=== PATIENT | female | born 1945 | race Caucasian/White ===

== ENCOUNTER 2022-10-26 09:03 | Outpatient (OUT) | payer MEDICARE, SELFPAY ==
--- NOTE | 2022-10-26 09:07 | CT_ITS ---
The [address] [address] Patient Name: DARLENE TANG MRN: [id number] date: 1945 Sex: F Assigned Patient Location: CT Current Patient Location: LAB Accession/Order Number: [id number] Exam Date: 10/26/2022 09:15 Report Date: 10/26/2022 10:01 At the request of: PRISCILLA GURROLA Procedure: CT head/brain wo con EXAMINATION: CT head/brain wo con HISTORY: Expressive Aphasia R47.01 COMPARISON: No relevant comparison available. TECHNIQUE: Axial CT images were obtained without IV contrast. Dose reduction techniques were achieved by using automated exposure control and/or adjustment of mA and/or kV according to patient size and/or use of iterative reconstruction technique. FINDINGS: BRAIN: No edema, hemorrhage, mass, acute infarction, or inappropriate atrophy. Incidental calcium deposition within the basal ganglia bilaterally. CSF SPACES: No hydrocephalus, subarachnoid hemorrhage, or mass. Appropriate for age. SKULL: No fracture, mass, or other significant visible lesion. SINUSES: No significant mucosal thickening or fluid on the limited views. ORBITS: No appreciable abnormality on the limited views. OTHER: Negative CT/CT head/brain wo con IMPRESSION: 1. No hemorrhage, mass, or suspicious findings to account for patient's symptoms. 2. Mild age consistent chronic changes. Electronically authenticated by: CIARRA [place] Date: 10/26/2022 10:01
== END 2022-10-26 09:04 | disposition home or self-care (01) ==
LOC: CT 09:03
PROVIDERS: PCP Family Medicine; Visit Provider Psychiatry & Neurology Neurology
DX: R47.01 Aphasia (principal)
CPT/HCPCS: 70450

== ENCOUNTER 2022-10-26 09:31 | Outpatient (OUT) | payer MEDICARE, SELFPAY ==
[2022-10-26 10:58] LABS: Thyroid Stimulating Hormone 1.448 uIU/mL (0.358-3.740)
== END 2022-10-26 09:32 | disposition home or self-care (01) ==
LOC: LAB 09:35
PROVIDERS: PCP Family Medicine; Visit Provider Psychiatry & Neurology Neurology
DX: Z79.899 Other long term (current) drug therapy (principal); R47.01 Aphasia
CPT/HCPCS: 36415; 82607; 84443

== ENCOUNTER 2022-12-29 09:45 | Outpatient (OUT) | payer MEDICARE, SELFPAY ==
--- NOTE | 2022-12-29 10:32 | CA_ITS ---
Patient: DARLENE TANG Exam Date: 12/29/2022 : 1945 Gender:F Ordering : DR Sonia Pulliam M.D. Admission #: [id number] Family : Order #: [id number] CLICK HERE TO VIEW EXAM ECHOCARDIOGRAM REPORT PROCEDURE: CA ECHO DOPPLER COMPLETE INDICATIONS: Dyspnea on exertion, h/o congestive heart failure, bilateral breast cancer- mastectomy, breast implants COMPARISON: None. DESCRIPTION: COMPLETE ECHOCARDIOGRAM Real-time transthoracic echocardiography with 2D, M-mode, spectral and color flow Doppler performed. QUALITY: Technically difficult due to breast implants. LEFT VENTRICLE: Normal chamber size. Thickened septal wall. LV EF: Global left ventricular systolic function is normal; visually estimated ejection fraction is 55 to 60%. No significant wall motion abnormalities. DIASTOLIC: Normal diastolic function. ATRIAL SEPTUM: Visually appears intact. LEFT ATRIUM: Normal chamber size. RIGHT ATRIUM: Normal chamber size. RIGHT VENTRICLE: Normal chamber size. Normal systolic function. TRICUSPID VALVE: Normal mobility and thickness. No stenosis with trivial regurgitation. Doppler studies reveal mildly (35-45) elevated right sided pressures. RVSP 37 mmHg MITRAL VALVE: Normal mobility and thickness. No evidence of mitral valve stenosis. There is no mitral annular calcification. No mitral regurgitation. AORTIC VALVE: Normal trileaflet appearance. No visible sclerosis. Normal leaflet mobility. No evidence of aortic valve stenosis. No aortic regurgitation. AORTIC ROOT: Normal diameter and appearance. PULMONIC VALVE: Normal thickness and mobility. No stenosis. Mild regurgitation. PERICARDIUM: No evidence of pericardial effusion. IVC: Collapses with inspirations. CONCLUSION: 1. Global left ventricular systolic function is normal; visually estimated ejection fraction is 55 to 60% 2. Right ventricle is normal in size and systolic function 3. Normal diastolic function 4. Mildly elevated right ventricular systolic pressure 5. Mild pulmonic regurgitation Adult Echocardiography Procedure Report Left Ventricle LVEDD (3.7 - 5.6 cm): 4.13 cm LVESD (2.2 - 4.0 cm): 2.29 cm LVIVS thickness (0.6 - 1.2 cm): 1.19 cm LVPW thickness (0.5 - 1.0 cm): 0.90 cm e': 0.10 m/s E - e': 5.72 LVOT Max Gradient: 3.14 mm[Hg] LVOT Area (cm2): 0.89 m/s Peak Velocity (LVOT): 0.89 m/s LVOT Diameter 2.08 cm Left Atrium Left Atrium Systolic Dimension: 3.01 cm Mitral Valve MV E to A Ratio: 0.80, 0.76 Mitral Valve A-Wave Peak Velocity: 0.72 m/s Mitral Valve E-Wave Peak Velocity: 0.57 m/s Right Ventricle Aorta AO Root Diam: 3.02 cm Ascending Ao Diam: 3.11 cm Aortic Valve AoV Area (Peak Brandon): 3.29 cm2, 3.29 cm2 Peak Velocity(Antegrade Flow): 0.91 m/s Peak Gradient(Antegrade Flow): 3.32 mm[Hg] Tricuspid Valve Peak Velocity (Regurgitant Flow): 2.18 m/s, 2.93 m/s Pulmonic Valve Peak Velocity: 1.04 m/s Peak Gradient: 4.46 mm[Hg], 4.21 mm[Hg] Right Atrium Right Atrium Systolic Pressure: 22.44 ml, 22.44 ml Dictated by: Reagan Mckeon M.D. on 12/29/2022 at 15:12 Approved by: Reagan Mckeon M.D. on 12/29/2022 at 15:15
== END 2022-12-29 09:46 | disposition home or self-care (01) ==
LOC: CARD 09:46
PROVIDERS: PCP Family Medicine; Visit Provider Family Medicine
DX: R06.09 Other forms of dyspnea (principal)
CPT/HCPCS: 93306

== ENCOUNTER 2023-05-25 21:20 | Inpatient (IN) | payer MEDICARE, SELFPAY ==
[2023-05-25] VITALS (21 sets, daily range): BP systolic 73–127; BP diastolic 60–83; PULSE 95–109; RESP 14–32; TEMP 36.7–38.4; O2SAT 81–97; BMI 30.9
--- NOTE | 2023-05-25 21:27 | ECG_ITS ---
The [facility] Test Date: 2023-05-25 Pat Name: DARLENE TANG Department: Room: [facility] Gender: Female Keeper Head: : 1945 Requested By: OUMAR GUNTER Order Number: [id number] Reading MD: PANKAJ JEROME Measurements Intervals [place] Rate: 105 P: 60 GA: 156 QRS: -63 QRSD: 92 T: 58 QT: 316 QTc: 377 Interpretive Statements 1120 Sinus tachycardia 2630 Left anterior fascicular block Low voltage across the precordium 9150 abnormal ECG Electronically Signed On 05-26-2023 6:44:12 EST by PANKAJ JEROME
--- NOTE | 2023-05-25 21:45 | XR_ITS ---
The [address] [address] Patient Name: DARLENE TANG MRN: [id number] date: 1945 Sex: F Assigned Patient Location: ER Current Patient Location: [place] Accession/Order Number: [id number] Exam Date: 05/25/2023 22:03 Report Date: 05/26/2023 20:55 At the request of: MANAS NGUYỄN Procedure: XR chest 1V CHEST X-RAY 05/25/2023 11:00 PM EST CLINICAL INDICATION: Fever with chest congestion. COMPARISON: 07/29/2017. TECHNIQUE: Portable semiupright AP view of the chest. FINDINGS: PH probe. The cardiomediastinal silhouette and pulmonary vasculature are within normal limits. Patchy bilateral lower lung zone opacities. No pneumothorax or pleural effusion. No displaced rib fractures. Osseous structures demonstrate degenerative changes. Soft tissues are grossly normal. XR/XR chest 1V IMPRESSION: Patchy bilateral lung zone opacities, this may represent atelectasis or pneumonia. Electronically authenticated by: CHICHO LOERA Date: 05/26/2023 20:55
--- NOTE | 2023-05-25 21:47 | ED_ITS ---
HPI - Altered Mental Status General Chief Complaint: Altered Mental Status Stated Complaint: Altered Mental Status Time Seen by Provider: 05/25/23 21:25 Source: patient and other Source comment: EMS Mode of arrival: ambulance Limitations: altered mental status History of Present Illness HPI narrative: patient presents from home confused. called [facility] because of her confusion. Fever and chills at home. No vomiting. [facility]ong commented at home she would not answer them until they would look her straight on and call her name. she arrives to the ED more awake and communicating but still confused. Doesn't know what medication she takes. Does not know why they brought her to the ER MD complaint: Reports altered mental status and confusion Related Data Home Medications Medication Instructions Recorded Confirmed duloxetine 30 mg capsule,delayed mg PO 05/25/23 release gabapentin 600 mg tablet mg 05/25/23 lisinopril 5 mg tablet mg 05/25/23 mirabegron 50 mg tablet,extended mg PO 05/25/23 release 24 hr (Myrbetriq) naproxen 500 mg tablet mg 05/25/23 oxycodone 15 mg tablet mg 05/25/23 pravastatin 10 mg tablet mg 05/25/23 tiotropium 2.5 mcg-olodaterol 2.5 inhalation 05/25/23 mcg/actuation mist for inhalation (Stiolto Respimat) Allergies Allergy/AdvReac Type Severity Reaction Status Date / Time No Known Drug Allergies Allergy Verified 05/25/23 22:41 Review of Systems ROS Status of ROS unobtainable due to mental status [facility] Medical History (Updated 05/26/23 @ 04:08 by Loraine Cade RN) Congestive heart failure ?I50.9 - Heart failure, unspecified (ICD-10) Breast cancer ?C50.919 - Malignant neoplasm of unspecified site of unspecified female breast (ICD-10) Surgical History (Updated 05/26/23 @ 04:08 by Loraine Cade RN) H/O section ?Z98.891 - History of uterine scar from previous surgery (ICD-10) S/P mastectomy, bilateral ?Z90.13 - Acquired absence of bilateral breasts and nipples (ICD-10) Family History (Updated 05/26/23 @ 03:16 by Loraine Cade RN) Father Family history of CHF (congestive heart failure) Sister Family history of COPD (chronic obstructive pulmonary disease) Family history of cancer Brother Family history of stroke Social History (Updated 05/26/23 @ 03:17 by Loraine Cade RN) Within the past year, how often did you have a drink containing alcohol: never Score interpretation: A score less than 3 is consistent with normal alcohol consumption. Smoking status: Never smoker Non-prescribed substance use: denies use Exam Constitutional Vital Signs, click to edit/add: Last Vital Signs Temp 97.8 F 05/26/23 03:34 Pulse 83 05/26/23 06:00 Resp 14 05/26/23 03:34 BP 125/74 05/26/23 03:34 Pulse Ox 92 L 05/26/23 03:35 O2 Del Method Nasal Cannula 05/26/23 03:35 O2 Flow Rate 3 05/26/23 03:35 Common normals: no apparent distress, average body habitus, no limitations, healthy appearing, alert and well nourished HENMT Common normals: normocephalic and head/scalp atraumatic Respiratory Common normals: normal respiratory effort, no retractions and no use of accesso ry muscles Cardio Common normals: regular rate, regular rhythm, S1 normal heart sound and S2 normal heart sound GI Common normals: Normal to inspection, nondistended, normoactive bowel sounds present, soft to palpation and non-tender Extremity Common normals: normal to inspection and full ROM Neuro Sensorium/orientation: awake, alert and oriented to person Psych Appearance: grossly normal Course Vital Signs Vital signs: Vital Signs Temperature 101.1 F H 05/25/23 21:22 Pulse Rate 105 H 05/25/23 21:22 Respiratory Rate 22 05/25/23 21:22 Blood Pressure 123/83 05/25/23 21:22 Pulse Oximetry 97 05/25/23 21:22 Oxygen Delivery Method Room Air 05/25/23 21:22 Temperature 97.8 F 05/26/23 03:34 Pulse Rate 83 05/26/23 06:00 Respiratory Rate 14 05/26/23 03:34 Blood Pressure 125/74 05/26/23 03:34 Pulse Oximetry 92 L 05/26/23 03:35 Oxygen Delivery Method Nasal Cannula 05/26/23 03:35 Oxygen Delivery Flow Rate 3 05/26/23 03:35 MDM - Altered Mental Status MDM Narrative Medical decision making narrative: patient presents with acute altered mental status. Found to have pneumonia right chest and also septic. Hydrated with IV saline. blood cx x 2 and Rocephin and zithromax IVPB discussed with the hospitalist and patient accepted for admission Lab Data Labs: Lab Results 05/25/23 05/25/23 05/25/23 Range/Units 21:40 21:52 22:43 WBC 24.6 H (4.0-11.0) 10^3/uL RBC 3.66 L (4.20-5.40) 10^6/uL Hgb 11.1 L (12.0-16.0) g/dL Hct 35.0 L (36.0-48.0) % MCV 95.6 (81.0-99.0) fL MCH 30.3 (26.7-34.0) pg MCHC 31.7 (29.9-35.2) g/dL RDW 12.3 (11.0-15.0) % Plt Count 272 (150-450) 10^3/uL MPV 10.5 (9.5-13.5) fL Seg Neuts % (Manual) 63.0 Band Neutrophils % 15.0 H (0-5) % Lymphocytes % (Manual) 4.0 L (20.5-60.0) % Atypical Lymphs % (Man) 13.0 % Monocytes % (Manual) 5.0 (1.7-12.0) % Eosinophils % (Manual) 0.0 L (0.9-7.0) % Basophils % (Manual) 0.0 L (0.2-2.0) % Neutrophils # (Manual) 15.49 H (1.4-6.5) 10^3/uL Band Neutrophils # 3.7 H (0.0-0.3) 10^3/uL Lymphocytes # (Manual) 0.98 L (1.20-3.80) 10^3/uL Abs Atypical Lymphs Man 3.19 Monocytes # (Manual) 1.23 H (0.30-0.80) 10^3/uL Eosinophils # (Manual) 0.00 (0.00-0.70) 10^3/uL Basophils # (Manual) 0.00 (0.00-0.10) 10^3/uL Toxic Granulation 4+ Sodium 139 (136-145) mmol/L Potassium 4.1 (3.5-5.1) mmol/L Chloride 100 (98-107) mmol/L Carbon Dioxide 27.4 (21.0-32.0) mmol/L Anion Gap 15.7 BUN 38.0 H (7.0-18.0) mg/dL Creatinine 3.70 H (0.55-1.02) mg/dL Est GFR ( Amer) 14 L (>=60) Est GFR (Non-Af Amer) 12 L (>=60) BUN/Creatinine Ratio 10.3 Glucose 142 H (74-106) mg/dL Lactate 1.2 (0.4-2.0) mmol/L Calcium 9.2 (8.5-10.1) mg/dL Total Bilirubin 0.6 (0.2-1.0) mg/dL AST 21 (15-37) U/L ALT 21 (14-59) U/L Alkaline Phosphatase 131 H (46-116) U/L Troponin I High Sens 12.0 (4.0-51.3) pg/mL Total Protein 7.7 (6.4-8.2) g/dL Albumin 2.8 L (3.4-5.0) g/dL Globulin 4.9 g/dL Albumin/Globulin Ratio 0.6 Procalcitonin 0.52 H (0.00-0.50) ng/mL Urine Color Dk. yellow (YELLOW) Urine Clarity Clear (CLEAR) Urine pH 5.0 (5.0-9.0) Ur Specific [place] >=1.030 A (1.005-1.025) Urine Protein Trace (NEG/TRACE) mg/dL Urine Glucose (UA) Negative (NEGATIVE) mg/dL Urine Ketones Trace A (NEGATIVE) mg/dL Urine Occult Blood Negative (NEGATIVE) Urine Nitrite Negative (NEGATIVE) Urine Bilirubin Small A (NEGATIVE) Urine Urobilinogen 0.2 (0.2-1.0) EU/dL Ur Leukocyte Esterase Negative (NEGATIVE) Adenovirus (PCR) Not detected (NOT DETECTE) C. pneumoniae DNA (PCR) Not detected (NOT DETECTE) Coronavirus Type OC43 Not detected (NOT DETECTE) Coronavirus Type HKU1 Not detected (NOT DETECTE) Coronavirus Type 229E Not detected (NOT DETECTE) Coronavirus Type NL63 Not detected (NOT DETECTE) Human Metapneumovir PCR Not detected (NOT DETECTE) M. pneumoniae (PCR) Not detected (NOT DETECTE) Parainfluenza PCR Not detected (NOT DETECTE) Parainfluenza 2 (PCR) Not detected (NOT DETECTE) Parainfluenza 3 (PCR) Not detected (NOT DETECTE) Parainfluenza 4 (PCR) Not detected (NOT DETECTE) RSV (RT-PCR) Not detected (NOT DETECTE) Entero/Rhino (PCR) Not detected (NOT DETECTE) SARS-CoV-2 (PCR) Not detected (NOT DETECTE) Bordetella pertussis (PCR) Not detected (NOT DETECTE) B parapertussis DNA PCR Not detected (NOT DETECTE) Influenza Type A (PCR) Not detected (NOT DETECTE) Influenza Type B (PCR) Not detected (NOT DETECTE) Discharge Plan Discharge Chief Complaint: Altered Mental Status Clinical Impression: Acute kidney injury, Sepsis, Altered mental status, Pneumonia Patient Disposition: Admitted As Inpatient Discharge Date/Time: 05/26/23 03:09
[2023-05-25 21:51] LABS: Hemoglobin 11.1 g/dL (12.0-16.0); Mean Corpuscular HGB Conc 31.7 g/dL (29.9-35.2); Mean Corpuscular Hemoglobin 30.3 pg (26.7-34.0); Mean Corpuscular Volume 95.6 fL (81.0-99.0); Mean Platelet Volume 10.5 fL (9.5-13.5); Platelet Count 272 10^3/uL (150-450); Red Blood Count 3.66 10^6/uL (4.20-5.40); Red Cell Distribution Width 12.3 % (11.0-15.0); White Blood Count 24.6 10^3/uL (4.0-11.0)
[2023-05-25] MEDS: 0.9 % SODIUM CHLORIDE 1,000 ML 999 ML IV (21:52)
[2023-05-25 22:06] LABS: Alanine Aminotransferase 21 U/L (14-59); Albumin Globulin Ratio 0.6; Albumin Level 2.8 g/dL (3.4-5.0); Alkaline Phosphatase 131 U/L (46-116); Anion Gap 15.7; Aspartate Amino Transferase 21 U/L (15-37); BUN Creatinine Ratio 10.3; Bilirubin Total 0.6 mg/dL (0.2-1.0); Calcium 9.2 mg/dL (8.5-10.1); Carbon Dioxide 27.4 mmol/L (21.0-32.0); Chloride 100 mmol/L (98-107); Estimated GFR (African America 14 (>=60); Estimated GFR (Non-African Ame 12 (>=60); Globulin 4.9 g/dL; Glucose 142 mg/dL (74-106); Potassium 4.1 mmol/L (3.5-5.1); Sodium 139 mmol/L (136-145); Total Protein 7.7 g/dL (6.4-8.2)
[2023-05-25 22:12] LABS: Lactate/Lactic Acid 1.2 mmol/L (0.4-2.0)
[2023-05-25 22:16] LABS: Atypical Lymphocytes Abs Man 3.19; Band Neutrophils Absolute 3.7 10^3/uL (0.0-0.3); Lymphocytes Absolute Manual 0.98 10^3/uL (1.20-3.80); Monocytes Absolute Manual 1.23 10^3/uL (0.30-0.80); Segmented Neut Absolute Manual 15.49 10^3/uL (1.4-6.5); Toxic Granulation 4+
[2023-05-25 22:17] LABS: PROCALCITONIN 0.52 ng/mL (0.00-0.50)
[2023-05-25 22:49] LABS: Bilirubin Urine SMALL (NEGATIVE); Blood Urine NEGATIVE (NEGATIVE); Clarity Urine CLEAR (CLEAR); Color Urine DK. YELLOW (YELLOW); Glucose Urine UA NEGATIVE (NEGATIVE); Ketones Urine TRACE mg/dL (NEGATIVE); Leukocyte Esterase Urine NEGATIVE (NEGATIVE); Nitrite Urine NEGATIVE (NEGATIVE); Protein Urine TRACE mg/dL (NEG/TRACE); Specific Gravity Urine >=1.030 (1.005-1.025); Urobilinogen Urine 0.2 EU/dL (0.2-1.0)
[2023-05-25 22:51] LABS: Adenovirus NOT DETECTED (NOT DETECTE); Bordetella parapertussis NOT DETECTED (NOT DETECTE); Coronavirus 229E NOT DETECTED (NOT DETECTE); Coronavirus HKU1 NOT DETECTED (NOT DETECTE); Coronavirus NL63 NOT DETECTED (NOT DETECTE); Coronavirus OC43 NOT DETECTED (NOT DETECTE); Human Metapneumovirus NOT DETECTED (NOT DETECTE); Human Rhinovirus/Enterovirus NOT DETECTED (NOT DETECTE); Influenza A NOT DETECTED (NOT DETECTE); Influenza B NOT DETECTED (NOT DETECTE); Mycoplasma pneumoniae NOT DETECTED (NOT DETECTE); Parainfluenza Virus 1 NOT DETECTED (NOT DETECTE); Parainfluenza Virus 2 NOT DETECTED (NOT DETECTE); Parainfluenza Virus 3 NOT DETECTED (NOT DETECTE); Parainfluenza Virus 4 NOT DETECTED (NOT DETECTE); Respiratory Syncytial Virus NOT DETECTED (NOT DETECTE); SARS-CoV-2 NOT DETECTED (NOT DETECTE)
[2023-05-25 22:55] LABS: Urine Microscopic Indicated NO
[2023-05-25] MEDS: CEFTRIAXONE 1,000 MG in 0.9 % SODIUM CHLORIDE 50 ML 100 MG IV (23:26)
--- NOTE | 2023-05-25 23:40 | CT_ITS ---
The [address] [address] Patient Name: DARLENE TANG MRN: [id number] date: 1945 Sex: F Assigned Patient Location: Current Patient Location: [place] Accession/Order Number: [id number] Exam Date: 05/25/2023 23:58 Report Date: 05/26/2023 22:43 At the request of: MANAS NGUYỄN Procedure: CT chest wo con EXAM: CT CHEST WO CON HISTORY: Altered mental status, pneumonia. COMPARISON: None. TECHNIQUE: Noncontrast axial CT images through the chest were obtained with coronal and sagittal reformats. Dose reduction techniques were achieved by using automated exposure control and/or adjustment of mA and/or kV according to patient size and/or use of iterative reconstruction technique. FINDINGS: There are areas of consolidation and tree-in-bud nodularity in the right upper lobe with scattered areas of consolidation in the right lower lobe. There are scattered calcified granulomas in the lungs. There is a 0.6 cm groundglass area in the left upper lobe (series 3, image 43). The central airways are patent. No pleural effusion or pneumothorax is seen. The cardiac chambers appear normal in size. The thoracic aorta and pulmonary arteries are normal in caliber. Bilateral breast implants are noted. A left flank neurostimulator device is partially imaged with the leads terminating within the mid thoracic spinal canal. There is no mediastinal, hilar, or axillary lymphadenopathy by CT size criteria. There are calcified mediastinal and hilar lymph nodes. The thyroid and esophagus appear unremarkable. Images through the upper abdomen reveal no significant abnormalities. Hepatic and splenic calcifications are suggestive of prior granulomatous disease. There is a subcentimeter hypodensity in the left hepatic lobe that is too small to characterize by CT size criteria. No suspicious or aggressive bone lesions are seen. No acute fractures are seen. CT/CT chest wo con IMPRESSION: 1. Findings concerning for multifocal pneumonia in the right lung. Follow-up imaging after treatment is recommended to document resolution. 2. There is a 0.6 cm groundglass area in the left upper lobe which could also represent infection. Attention on follow-up imaging. Electronically authenticated by: Otis JUNG Date: 05/26/2023 22:43
--- NOTE | 2023-05-25 23:40 | CT_ITS ---
The [address] [address] Patient Name: DARLENE TANG MRN: [id number] date: 1945 Sex: F Assigned Patient Location: Current Patient Location: [place] Accession/Order Number: [id number] Exam Date: 05/25/2023 23:58 Report Date: 05/26/2023 21:49 At the request of: MANAS NGUYỄN Procedure: CT head/brain wo con INDICATION: 78-year-old female. Change in mental status. Fever. History of breast cancer. TECHNIQUE: CT Head (ax/cor/sag reformats). Ionizing radiation dose reduced via iterative reconstruction/FBP blend and body size kV/mA adjustment. COMPARISON: Head CT dated 10/26/2022. FINDINGS: POSTOPERATIVE CHANGES: None. BRAIN PARENCHYMA: No focal lesions. No mass effect. No midline shift or herniation. No intraparenchymal or extra-axial hemorrhage. Patchy low-density in the white matter without mass effect consistent with small vessel ischemic change. VENTRICLES/EXTRA-AXIAL SPACES: Normal for patient's age. SINUSES/MASTOIDS: There is mucoperiosteal thickening with secretions and a fluid level in the sphenoid sinus on the right. Frontal sinuses are hypoplastic. The maxillary sinuses are not completely included in this examination. Mastoids and middle ears are clear. MSK: No displaced or depressed calvarial fracture. OTHER: No hyperdense intraluminal thrombus. Vascular calcifications are present. CT/CT head/brain wo con IMPRESSION: 1. No acute intracranial abnormality. No hemorrhage or mass effect. The study cannot exclude the presence of meningitis. 2. Small vessel ischemic changes. 3. Vascular calcifications. 4. Secretions and a fluid level present within the sphenoid sinus on the right. In the appropriate clinical setting, this finding would be consistent with acute on chronic sinusitis. Electronically authenticated by: MERCY REYNOSO Date: 05/26/2023 21:49
[2023-05-26] VITALS (36 sets, daily range): BP systolic 124–159; BP diastolic 70–79; PULSE 83–123; RESP 7–29; TEMP 36.2–36.8; O2SAT 82–95; BMI 35.2
[2023-05-26] MEDS: AZITHROMYCIN 500 MG in 0.9 % SODIUM CHLORIDE 250 ML 250 MG IV ×2 (00:33→23:09)
[2023-05-26] MEDS: 0.9 % SODIUM CHLORIDE 1,000 ML 999 ML IV (00:33)
[2023-05-26] MEDS: 0.9 % SODIUM CHLORIDE 1,000 ML 100 ML IV (04:02)
[2023-05-26 05:44] LABS: Basophils Absolute Auto 0.1 10^3/uL (0.0-0.1); Basophils Percent Auto 0.3 % (0.2-2.0); Eosinophils Percent Auto 0.2 % (0.9-7.0); Hematocrit 31.7 % (36.0-48.0); Hemoglobin 9.7 g/dL (12.0-16.0); Immature Granulocytes Abs Auto 1.01 10^3/uL (0.00-0.03); Immature Granulocytes Pct Auto 4.9 % (0.0-0.5); Lymphocytes Absolute Auto 1.5 10^3/uL (1.2-3.8); Lymphocytes Percent Auto 7.2 % (20.5-60.0); Mean Corpuscular HGB Conc 30.6 g/dL (29.9-35.2); Mean Corpuscular Hemoglobin 29.8 pg (26.7-34.0); Mean Corpuscular Volume 97.5 fL (81.0-99.0); Mean Platelet Volume 10.6 fL (9.5-13.5); Monocytes Absolute Auto 0.5 10^3/uL (0.3-0.8); Monocytes Percent Auto 2.2 % (1.7-12.0); Neutrophils Absolute Auto 17.6 10^3/uL (1.4-6.5); Neutrophils Percent Auto 85.2 % (43.0-75.0); Platelet Count 227 10^3/uL (150-450); Red Blood Count 3.25 10^6/uL (4.20-5.40); Red Cell Distribution Width 12.5 % (11.0-15.0); White Blood Count 20.7 10^3/uL (4.0-11.0)
[2023-05-26 06:18] LABS: PROCALCITONIN 0.61 ng/mL (0.00-0.50)
[2023-05-26 06:25] LABS: Alanine Aminotransferase 19 U/L (14-59); Albumin Globulin Ratio 0.5; Albumin Level 2.3 g/dL (3.4-5.0); Alkaline Phosphatase 128 U/L (46-116); Anion Gap 14.6; Aspartate Amino Transferase 18 U/L (15-37); BUN Creatinine Ratio 12.6; Bilirubin Total 0.4 mg/dL (0.2-1.0); Calcium 8.2 mg/dL (8.5-10.1); Carbon Dioxide 23.6 mmol/L (21.0-32.0); Chloride 102 mmol/L (98-107); Estimated GFR (African America 17 (>=60); Estimated GFR (Non-African Ame 14 (>=60); Globulin 4.4 g/dL; Glucose 279 mg/dL (74-106); Potassium 4.2 mmol/L (3.5-5.1); Sodium 136 mmol/L (136-145); Total Protein 6.7 g/dL (6.4-8.2)
[2023-05-26] MEDS: OXYBUTYNIN CHLORIDE 5 MG TAB XL 10 MG PO (10:25)
[2023-05-26] MEDS: DULOXETINE HCL 60 MG CAPSULE.DR PO (10:25)
[2023-05-26] MEDS: GUAIFENESIN 600 MG TAB.ER.12H PO ×2 (10:25→21:19)
[2023-05-26] MEDS: IPRATROPIUM/ALBUTEROL SULFATE 3 ML AMPUL.NEB IH ×2 (10:51→19:41)
--- NOTE | 2023-05-26 12:54 | P.HP_ITS ---
<Statement entered by Maria Guadalupe Martínez, - 05/26/23 14:23> I have also seen and examined patient at the time of admission. I agree with the above assessments and plan of care. H&P: HPI History of Present Illness Chief complaint: Altered Mental Status Narrative: 05/26/23 1035 This is a 78-year-old female patient with a past medical history as outlined below including breast CA s/p bilateral mastectomy, COPD, hypertension, depression, and chronic pain; who presented to the ED yesterday evening via EMS due to altered mental status and respiratory distress. Per her spouse, the patient developed URI symptoms 5 days [employer] with cough and chest congestion. 2 days ago she had a fever of 102 at home but she refused to go to the doctor. Yesterday her spouse noted she was trembling and was very weak and her temperature was 102.1. She was also very confused and talking off the wall . She was brought to the ED for further evaluation. Workup in the ED revealed fever (101.1), tachycardia (105), tachypnea (22), hypoxia (85% on RA). Significant leukocytosis was also noted (24.6) with 15% bands. DEVAN was noted on chemistries (BUN 38, CR 3.7, GFR 12), and a procalcitonin was elevated at 0.52. ED staff documented her GCS at 14. A lactic acid and troponin were unremarkable. Respiratory panel and urinalysis were both negative. Chest x-ray revealed patchy bilateral opacities concerning for infiltrate. A follow-up CT of the chest was obtained which confirmed multifocal infiltrate in the right lung and possible left upper lobe. CT of the head was negative for acute intracranial abnormality. She was admitted very early this morning to the hospitalist service as an inpatient with sepsis, multifocal pneumonia, acute metabolic encephalopathy, and DEVAN. At the time of my exam the patient is sitting up in a bedside chair working with OT. She is awake and alert and oriented x 3. She does not have much memory of the events of yesterday evening. Her spouse enters the room during my exam and confirms that she looks significantly improved since the ED last night. She continues to have a frequent, loose, nonproductive cough. Nursing was able to wean off her O2 to room air this morning and she is stable at 93% at the time of my exam. Although she is significantly improved and much quicker than expected, we still believe she will require 2-3 midnight stay for hospital necessary medical care. Review of Systems ROS Status of ROS 10 or more systems reviewed and unremark able except as noted in history and below [facility] Medical History (Updated 05/26/23 @ 13:37 by Danielle Roca NP) COPD (chronic obstructive pulmonary disease) ?J44.9 - Chronic obstructive pulmonary disease, unspecified (ICD-10) Depression ?F32.A - Depression, unspecified (ICD-10) OAB (overactive bladder) ?N32.81 - Overactive bladder (ICD-10) HTN (hypertension) ?I10 - Essential (primary) hypertension (ICD-10) Chronic pain ?G89.29 - Other chronic pain (ICD-10) Congestive heart failure ?I50.9 - Heart failure, unspecified (ICD-10) Breast cancer ?C50.919 - Malignant neoplasm of unspecified site of unspecified female breast (ICD-10) Surgical History (Updated 05/26/23 @ 04:08 by Loraine Cade RN) H/O section ?Z98.891 - History of uterine scar from previous surgery (ICD-10) S/P mastectomy, bilateral ?Z90.13 - Acquired absence of bilateral breasts and nipples (ICD-10) Family History (Updated 05/26/23 @ 03:16 by Loraine Cade RN) Father Family history of CHF (congestive heart failure) Sister Family history of COPD (chronic obstructive pulmonary disease) Family history of cancer Brother Family history of stroke Social History (Updated 05/26/23 @ 03:17 by Loraine Cade RN) Within the past year, how often did you have a drink containing alcohol: never Score interpretation: A score less than 3 is consistent with normal alcohol consumption. Smoking status: Never smoker Non-prescribed substance use: denies use Meds Home Medications and Allergies Home Medications Medication Instructions Recorded Confirmed Type duloxetine 30 mg capsule,delayed 30 mg PO QDAY 05/25/23 05/26/23 History release gabapentin 600 mg tablet 600 mg PO TID 05/25/23 05/26/23 History lisinopril 5 mg tablet 5 mg PO DAILY 05/25/23 05/26/23 History mirabegron 50 mg tablet,extended 50 mg PO DAILY 05/25/23 05/26/23 History release 24 hr (Myrbetriq) naproxen 500 mg tablet 500 mg PO DAILY 05/25/23 05/26/23 History oxycodone 15 mg tablet 15 mg PO Q8H PRN pain 05/25/23 05/26/23 History tiotropium 2.5 mcg-olodaterol 2.5 2 puff inhalation Q24H 05/25/23 05/26/23 History mcg/actuation mist for inhalation (Stiolto Respimat) duloxetine 60 mg capsule,delayed 60 mg PO DAILY 05/26/23 05/26/23 History release Allergies Allergy/AdvReac Type Severity Reaction Status Date / Time No Known Drug Allergies Allergy Verified 05/25/23 22:41 Exam Constitutional Vital Signs, click to edit/add: Last Vital Signs Temp 97.4 F L 05/26/23 11:45 Pulse 100 H 05/26/23 11:56 Resp 14 05/26/23 11:45 BP 124/73 05/26/23 11:45 Pulse Ox 95 05/26/23 11:45 O2 Del Method Room Air 05/26/23 11:45 O2 Flow Rate 3 05/26/23 03:35 Common normals: no apparent distress, oriented x3, alert and well nourished General appearance: cooperative Orientation/consciousness: Yes awake HENMT Common normals: normocephalic, head/scalp atraumatic, hearing grossly normal bilaterally, external nose normal and moist oral mucous membranes Eye Common normals: PERRL, EOMs intact bilaterally, conjunctivae normal and no scle ral icterus Alignment: alignment normal Neck & C-Spine Common normals: full ROM, supple and no JVD Chest Common normals: inspection of chest normal Chest: symmetrical chest wall rise Respiratory Common normals: normal respiratory effort, no retractions and no use of accessory muscles Effort & inspection: able to speak in complete sentences Auscultation: diminished lung sounds (BLL) and other (Frequent, loose, non-prod cough) Cardio Common normals: no JVD, regular rate, regular rhythm, S1 normal heart sound, S2 normal heart sound, no gallops, no clicks, no murmurs, no rub and peripheral pulses 2+ throughout Heart sounds: S1 normal and S2 normal GI Common normals: Normal to inspection, nondistended, normoactive bowel sounds present, soft to palpation, non-tender, no hepatosplenomegaly, no masses and no bruits Bladder/kidney exam: bladder normal to palpation Back & Pelvis Common normals: thoracic and lumbar spine normal to inspection Extremity Common normals: normal capillary refill General: normal exam except as noted and edema (Trace bilat insteps); no clubbing and no cyanosis Neuro [place] Coma Scale: GCS not evaluated Common normals: CN's II-XII intact bilaterally, moves all extremities, no focal motor deficits and no sensory deficits noted Speech: speech normal Motor exam: strength 5/5 throughout Psych Common normals: mental status grossly normal, thought process normal, affect normal and activity/motor behavior normal Thought process: normal thought process Attention/concentration: attention grossly intact and concentration grossly intact Memory/cognition: other (Mild short term memory impairment) Insight: fair Judgement: fair Results Labs Labs: Short CBC 05/25/23 05/26/23 Range/Units 21:40 04:35 WBC 24.6 H 20.7 H (4.0-11.0) 10^3/uL Hgb 11.1 L 9.7 L (12.0-16.0) g/dL Hct 35.0 L 31.7 L (36.0-48.0) % Plt Count 272 227 (150-450) 10^3/uL BMP 05/25/23 05/26/23 21:40 04:35 Sodium 139 136 Potassium 4.1 4.2 Chloride 100 102 Carbon Dioxide 27.4 23.6 BUN 38.0 H 40.0 H Creatinine 3.70 H 3.17 H Glucose 142 H 279 H Calcium 9.2 8.2 L Liver Function 05/25/23 05/26/23 Range/Units 21:40 04:35 Total Bilirubin 0.6 0.4 (0.2-1.0) mg/dL AST 21 18 (15-37) U/L ALT 21 19 (14-59) U/L Alkaline Phosphatase 131 H 128 H (46-116) U/L Albumin 2.8 L 2.3 L (3.4-5.0) g/dL Urine 05/25/23 Range/Units 21:52 Urine Color Dk. yellow (YELLOW) Urine Clarity Clear (CLEAR) Urine pH 5.0 (5.0-9.0) Ur Specific [place] >=1.030 A (1.005-1.025) Urine Protein Trace (NEG/TRACE) mg/dL Urine Glucose (UA) Negative (NEGATIVE) mg/dL Pulse Oximetry Attestation: I have reviewed the pertinent pulse oximetry results. Imaging Chest x-ray: Attestation: I have reviewed the pertinent imaging results. Radiologist's impression: IMPRESSION: Patchy bilateral lung zone opacities, this may represent atelectasis or pneumonia. CT scan - chest: Attestation: I have reviewed the pertinent imaging results. Radiologist's impression: IMPRESSION: 1. Findings concerning for multifocal pneumonia in the right lung. Follow-up imaging after treatment is recommended to document resolution. 2. There is a 0.6 cm groundglass area in the left upper lobe which could also represent infection. Attention on follow-up imaging. CT scan - head: Attestation: I have reviewed the pertinent imaging results. Radiologist's impression: IMPRESSION: 1. No acute intracranial abnormality. No hemorrhage or mass effect. The study cannot exclude the presence of meningitis. 2. Small vessel ischemic changes. 3. Vascular calcifications. 4. Secretions and a fluid level present within the sphenoid sinus on the right. In the appropriate clinical setting, this finding would be consistent with acute on chronic sinusitis. Assessment and Plan Assessment and Plan (1) Sepsis: Assessment and Plan: ACUTE * Adm inpatient * I expect this patient to cross 2 midnights and require medically necessary hospital care * AEB on admission: * SEP1 Criteria: Temp 101.1, HR 105, RR 22, WBC 24,600, Source - Multifocal pneumonia * SEP3 Criteria: qSOFA score of 2 (AMS-GCS 14, RR 22), SOFA score of 6 (PF ratio 250, GCS 14, Cr 3.7), Source - multifocal pneumonia * PCT 0.52, 0.61 * BC x 2 obtained in ED - pending * Sputum culture ordered - pending collection * 2L IVF boluses given in ED * NS IVF at 100 ml/hr ordered overnight - increase to 125/hr * See pneumonia for ABX * CBC, CMP, PCT daily (2) Multifocal pneumonia: Assessment and Plan: ACUTE * Confirmed on CT Chest imaging * IVPB Rocephin and Azithromycin * Guaifenesin and OPEP for sputum mobilization * Duonebs scheduled q4h (3) Acute respiratory failure with hypoxia: Assessment and Plan: ACUTE * Resolving * O2 sat 85% on RA on arrival to ED * Required O2 supplementation at 3L overnight * Nursing weaned off this morning and pt is now stable at 93% on RA (4) Acute metabolic encephalopathy: Assessment and Plan: ACUTE * Resolving * Pt markedly altered per spouse prior to arrival in ED * GCS 14 in ED * Resolving to baseline mild dementia (short term memory loss) today (5) Acute kidney injury: Assessment and Plan: ACUTE * Baseline renal function is CKD 3a * BUN 17-18, Cr 1.1, GFR 48 * DEVAN in ED - BUN 38, Cr 3.7, GFR 12 * Improved overnight w/ IVFs * BUN 40, Cr 3.17, GFR 14 on AM labs today * Continue IVFs and increase rate to 125/hr * Hold renal toxic meds including home lisinopril and naproxen * Consider nephrology consult pending clinical course * CMP daily (6) Chronic pain: Assessment and Plan: CHRONIC * Continue home gabapentin, oxycodone * Hold home naproxen d/t DEVAN (7) HTN (hypertension): Assessment and Plan: CHRONIC * Hold home lisinopril d/t DEVAN * resume when clinically indicated * BP currently well controlled w/ anti HTN meds (8) OAB (overactive bladder): Assessment and Plan: CHRONIC * Continue home Myrbetriq (9) Depression: Assessment and Plan: CHRONIC * Continue home duloxetine (10) COPD (chronic obstructive pulmonary disease): Assessment and Plan: CHRONIC * Hold home Stiolto Respimat * Scheduled duonebs for now
--- NOTE | 2023-05-26 12:56 | CM.NOTE ---
Rounds made with Dr. Martínez. Ms. Ayers states that she feels much better today. No plan for discharge today. Nicole Armen and Armen in agreement.
[2023-05-26] MEDS: GABAPENTIN 300 MG CAPSULE 600 MG PO ×2 (13:13→21:19)
[2023-05-26] MEDS: DULOXETINE HCL 30 MG CAPSULE.DR PO (13:14)
[2023-05-26] MEDS: 0.9 % SODIUM CHLORIDE 1,000 ML 125 ML IV ×2 (13:14→21:19)
--- NOTE | 2023-05-26 15:54 | SWNOTE1 ---
SW met with pt to discuss dc needs. She voiced she is feeling much better and does not remember much about how she got here. She does know she is at [facility]. Pt lives at home with her . She does not use any DME at this time. Pt does not have any HH at this time. Pt denies having any needs at discharge. SW reviewed IMM form with pt, she voiced understanding and had no questions. Patient signed form, copy placed on chart and original was given to pt.
--- NOTE | 2023-05-26 16:24 | SWNOTE1 ---
SW did see OT recommended home health. SW stopped in and spoke with pt and . At this time pt does not feel she needs any home health, pt is refusing at this time. SW did explain the benefits and did advise pt to continue to walk and exercise daily at home. Pt voices at this time she does not want it. SW advised pt if she does change her mind to notify nursing and SW can come back in. SW also let her know her PCP can set it up when she is home if she decides she needs it after discharge.
[2023-05-26] MEDS: OXYCODONE HCL 15 MG TABLET PO (17:20)
--- NOTE | 2023-05-26 23:50 | RESP.RT ---
Pt refused breathing tx and does not want anymore tonight. Pt stated they make her feel shakey afterwards and she does not know why she even needs them.
[2023-05-27] VITALS (12 sets, daily range): BP systolic 136–171; BP diastolic 69–83; PULSE 88–110; RESP 18–20; TEMP 36.3–37; O2SAT 92–94
[2023-05-27] MEDS: CALCIUM CARBONATE 500 MG (200MG ELEMENTAL) TAB CHEW PO (00:03)
[2023-05-27] MEDS: DIPHENHYDRAMINE HCL 25 MG/10 ML ELIXIR PO (00:03)
[2023-05-27] MEDS: GABAPENTIN 300 MG CAPSULE 600 MG PO ×3 (05:02→21:07)
[2023-05-27] MEDS: 0.9 % SODIUM CHLORIDE 1,000 ML 125 ML IV (05:03)
[2023-05-27 05:19] LABS: Hematocrit 34.4 % (36.0-48.0); Hemoglobin 10.4 g/dL (12.0-16.0); Mean Corpuscular HGB Conc 30.2 g/dL (29.9-35.2); Mean Corpuscular Hemoglobin 29.9 pg (26.7-34.0); Mean Corpuscular Volume 98.9 fL (81.0-99.0); Mean Platelet Volume 10.8 fL (9.5-13.5); Platelet Count 290 10^3/uL (150-450); Red Blood Count 3.48 10^6/uL (4.20-5.40); Red Cell Distribution Width 12.6 % (11.0-15.0)
[2023-05-27 06:04] LABS: Alanine Aminotransferase 43 U/L (14-59); Albumin Globulin Ratio 0.5; Albumin Level 2.3 g/dL (3.4-5.0); Alkaline Phosphatase 119 U/L (46-116); Aspartate Amino Transferase 57 U/L (15-37); Bilirubin Total 0.2 mg/dL (0.2-1.0); Calcium 9.1 mg/dL (8.5-10.1); Carbon Dioxide 18.8 mmol/L (21.0-32.0); Chloride 111 mmol/L (98-107); Estimated GFR (African America 35 (>=60); Estimated GFR (Non-African Ame 29 (>=60); Globulin 4.6 g/dL; Glucose 155 mg/dL (74-106); Potassium 4.8 mmol/L (3.5-5.1); Sodium 143 mmol/L (136-145); Total Protein 6.9 g/dL (6.4-8.2)
[2023-05-27 06:07] LABS: PROCALCITONIN 0.13 ng/mL (0.00-0.50)
[2023-05-27 06:27] LABS: Band Neutrophils Absolute 1.6 10^3/uL (0.0-0.3); Lymphocytes Absolute Manual 1.62 10^3/uL (1.20-3.80); Segmented Neut Absolute Manual 27.86 10^3/uL (1.4-6.5); White Blood Count 32.4 10^3/uL (4.0-11.0)
[2023-05-27 06:28] LABS: Monocytes Absolute Manual 1.29 10^3/uL (0.30-0.80)
[2023-05-27 08:33] LABS: Hematocrit 29.7 % (36.0-48.0); Hemoglobin 9.4 g/dL (12.0-16.0); Mean Corpuscular HGB Conc 31.6 g/dL (29.9-35.2); Mean Corpuscular Volume 94.9 fL (81.0-99.0); Mean Platelet Volume 9.8 fL (9.5-13.5); Platelet Count 265 10^3/uL (150-450); Red Blood Count 3.13 10^6/uL (4.20-5.40); Red Cell Distribution Width 12.5 % (11.0-15.0); White Blood Count 26.6 10^3/uL (4.0-11.0)
[2023-05-27 08:50] LABS: Lactate/Lactic Acid 0.9 mmol/L (0.4-2.0)
[2023-05-27] MEDS: OXYBUTYNIN CHLORIDE 5 MG TAB XL 10 MG PO (08:56)
[2023-05-27] MEDS: GUAIFENESIN 600 MG TAB.ER.12H PO ×2 (08:56→21:07)
[2023-05-27] MEDS: DULOXETINE HCL 60 MG CAPSULE.DR PO (08:57)
[2023-05-27] MEDS: LEVOFLOXACIN IN DEXTROSE 5 % 750 MG/150 ML IV.SOLN 100 MG IV (08:57)
[2023-05-27] MEDS: OXYCODONE HCL 15 MG TABLET PO ×2 (08:57→17:27)
--- NOTE | 2023-05-27 09:17 | XR_ITS ---
The [address] [address] Patient Name: DARLENE TANG MRN: [id number] date: 1945 Sex: F Assigned Patient Location: [place] Current Patient Location: [place] Accession/Order Number: [id number] Exam Date: 05/27/2023 09:20 Report Date: 05/27/2023 10:04 At the request of: CURTIS APARICIO Procedure: XR chest 1V EXAM: XR chest 1V HISTORY: Shortness of breath. Follow-up pneumonia. COMPARISON: 05/25/2023 FINDINGS: There are faint patchy bilateral infiltrates. No significant pleural fluid collection is observed. The heart is mildly enlarged. The cardiomediastinal silhouette, pulmonary vasculature and bony thorax otherwise appear unremarkable. XR/XR chest 1V IMPRESSION: Faint patchy bilateral infiltrates. Similar in appearance to the prior exam. Electronically authenticated by: MIGUEL ROTHMAN Date: 05/27/2023 10:04
--- NOTE | 2023-05-27 09:19 | PT.DAILY ---
Physical Therapy Daily Note PT Daily Note/Assess Start: 05/27/23 09:16 Freq: Status: Active Protocol: Document 05/27/23 08:55 MICKEY (Rec: 05/27/23 09:19 MICKEY [id number]) Physical Therapy Daily Note/Assessment Time In/Time Out Time In 08:55 Time Out 09:10 Subjective Subjective Denies pain, reports feeling better. Walking feels good. Therapeutic Activity Time Therapeutic Activity Minutes (minutes) 15 Therapeutic Activity Units 1 Therapeutic Activity Treatment Chair Transfer Ability Total Assist Therapeutic Activity Comments Sit to stand Independent. Gait 100' with SBA. Initially patient pushes IV poll, but this becomes difficult as IV poll is not very friendly, so therapist takes over IV poll, and patient is able to ambulate without AD, no LOB. Distance is limited to SOB and fatigue. Total Physical Therapy Time Total Therapy Minutes 15 Total Physical Therapy Units 1 Summary Daily Note Summary Improved ability with ambulation, good balance, distance is limited due to SOB and fatigue vs weakness.
[2023-05-27] MEDS: IPRATROPIUM/ALBUTEROL SULFATE 3 ML AMPUL.NEB IH (10:00)
[2023-05-27 11:10] LABS: Band Neutrophils Absolute 1.6 10^3/uL (0.0-0.3); Lymphocytes Absolute Manual 3.19 10^3/uL (1.20-3.80); Metamyelocytes Absolute Manual 0.53; Monocytes Absolute Manual 1.06 10^3/uL (0.30-0.80); Segmented Neut Absolute Manual 20.21 10^3/uL (1.4-6.5)
--- NOTE | 2023-05-27 11:14 | P.PN_ITS ---
<Statement entered by Maria Guadalupe Martínez, DO - 05/27/23 15:01> This documentation has been reviewed and approved. I agree with IV antibiotic changes. I have also seen and evaluated patient today. Progress Note: Subjective Subjective Interval history: 05/27/23 0905 The pt is sitting up in a bedside chair. She is alert and oriented x 3. She remains off O2 supplementation w/ stable O2 sat at 92%. She continues to have a loose cough that is now productive and she was able to produce multiple sputum samples this morning. Her renal function is improving, but is still altered from baseline. No clinical concern for fluid overload at this time. We will continue IVF administration and monitor her renal function and urine output closely. Leukocytosis markedly elevated on AM labs, but pt remains afebrile and her procalcitonin continues trending down nicely. We will substitute Levaquin for azithromycin for double gram neg coverage with Rocephin and continued atypical coverage. We will order a repeat CBC now and add a repeat lactic acid as well. Repeat CXR also ordered to assess multifocal pneumonia status. Sputum culture is now pending. Disposition: Discharge likely in the next 24-48 hrs pending clinical course. Exam Constitutional Vital Signs, click to edit/add: Last Vital Signs Temp 98.6 F 05/27/23 09:01 Pulse 88 05/27/23 10:04 Resp 20 05/27/23 10:04 BP 171/83 H 05/27/23 09:01 Pulse Ox 94 L 05/27/23 09:01 O2 Del Method Room Air 05/27/23 10:04 O2 Flow Rate 3 05/26/23 03:35 Common normals: no apparent distress, oriented x3 and alert General appearance: cooperative Orientation/consciousness: Yes awake [facility] Common normals: normocephalic, head/scalp atraumatic and hearing grossly normal bilaterally Eye Common normals: PERRL, EOMs intact bilaterally, conjunctivae normal and no scleral icterus General eye: normal appearance of both eyes Chest Common normals: inspection of chest normal Chest: symmetrical chest wall rise Respiratory Common normals: normal respiratory effort and no use of accessory muscles Effort & inspection: able to speak in complete sentences Auscultation: rhonchi (Scattered, clears with cough) and wheezes (RUL) Cardio Common normals: regular rate, regular rhythm, S1 normal heart sound, S2 normal heart sound, no murmurs and peripheral pulses 2+ throughout GI Common normals: Normal to inspection, nondistended, normoactive bowel sounds present, soft to palpation, non-tender and no hepatosplenomegaly Bladder/kidney exam: bladder normal to palpation Extremity Common normals: normal to inspection and no calf tenderness General: edema (Tr BLE insteps); no clubbing and no cyanosis Neuro Common normals: CN's II-XII intact bilaterally, moves all extremities, no focal motor deficits and no sensory deficits noted Psych Common normals: mental status grossly normal Progress Note: Objective Labs Labs: Short CBC 05/27/23 05/27/23 Range/Units 04:59 08:24 WBC 32.4 H* 26.6 H (4.0-11.0) 10^3/uL Hgb 10.4 L 9.4 L (12.0-16.0) g/dL Hct 34.4 L 29.7 L (36.0-48.0) % Plt Count 290 265 (150-450) 10^3/uL BMP 05/27/23 04:59 Sodium 143 Potassium 4.8 Chloride 111 H Carbon Dioxide 18.8 L BUN 34.0 H Creatinine 1.70 H Glucose 155 H Calcium 9.1 Liver Function 05/27/23 Range/Units 04:59 Total Bilirubin 0.2 (0.2-1.0) mg/dL AST 57 H (15-37) U/L ALT 43 (14-59) U/L Alkaline Phosphatase 119 H (46-116) U/L Albumin 2.3 L (3.4-5.0) g/dL Imaging Chest x-ray: Attestation: I have reviewed the pertinent imaging results. Radiologist's impression: IMPRESSION: Faint patchy bilateral infiltrates. Similar in appearance to the prior exam. Progress Note: A&P Assessment and Plan (1) Sepsis: Assessment and Plan: ACUTE * Improving * PCT 0.13 today, down from 0.61 * Leukocytosis worsened (32.4), but pt remains afebrile, w/o hypoxia, and stable BP. Repeat CBC now. * Repeat LA today - 0.9 * BC x 2 obtained in ED - neg to date * Sputum culture obtained - pending * Continue NS IVF at reduced rate of 100/hr * See pneumonia for ABX * CBC, CMP, PCT daily * AEB on admission: * SEP1 Criteria: Temp 101.1, HR 105, RR 22, WBC 24,600, Source - Multifocal pneumonia * SEP3 Criteria: qSOFA score of 2 (AMS-GCS 14, RR 22), SOFA score of 6 (PF ratio 250, GCS 14, Cr 3.7), Source - multifocal pneumonia * PCT 0.52, 0.61 (2) Multifocal pneumonia: Assessment and Plan: ACUTE * Leukocytosis worsened (32.4), but pt remains afebrile, w/o hypoxia, and stable BP. Repeat CBC now. * Continue IVPB Rocephin * D/C Azithromycin (d/t worsening leukocytosis) and start Levaquin - double gram neg and atypical coverage * Repeat CXR now - Unchanged from admission * Sputum culture obtained - pending * Continue Guaifenesin and OPEP for sputum mobilization * Duonebs prn q4h (3) Acute respiratory failure with hypoxia: Assessment and Plan: ACUTE * Resolved - remains stable at 92% on RA (4) Acute metabolic encephalopathy: Assessment and Plan: ACUTE * Resolved - mentation at baseline (5) Acute kidney injury: Assessment and Plan: ACUTE * Improving * BUN 34, Cr 1.7, GFR 29 * Baseline renal function is CKD 3a * BUN 17-18, Cr 1.1, GFR 48 * Continue IVFs at 100/hr * Continue to hold renal toxic meds including home lisinopril and naproxen * Consider nephrology consult pending clinical course * CMP daily (6) Chronic pain: Assessment and Plan: CHRONIC * Continue home gabapentin, oxycodone * Hold home naproxen d/t DEVAN (7) HTN (hypertension): Assessment and Plan: CHRONIC * Continue to hold home lisinopril d/t DEVAN * resume when clinically indicated * BP intermittently elevated overnight * PRN Hydralazine IVP (8) OAB (overactive bladder): Assessment and Plan: CHRONIC * Continue home Myrbetriq (9) Depression: Assessment and Plan: CHRONIC * Continue home duloxetine (10) COPD (chronic obstructive pulmonary disease): Assessment and Plan: CHRONIC * Hold home Stiolto Respimat * PRN duonebs
--- NOTE | 2023-05-27 11:50 | CM.NOTE ---
Rounds made with Dr. Martínez, no discharge today. Dr. Martínez discussed with pt elevation in pt's WBC and change in antibiotics.
[2023-05-27] MEDS: DULOXETINE HCL 30 MG CAPSULE.DR PO (13:28)
[2023-05-27] MEDS: 0.9 % SODIUM CHLORIDE 1,000 ML 100 ML IV (13:29)
--- NOTE | 2023-05-27 17:09 | PT.DAILY ---
Physical Therapy Daily Note PT Daily Note/Assess Start: 05/27/23 09:16 Freq: Status: Active Protocol: Document 05/27/23 08:55 MICKEY (Rec: 05/27/23 09:19 MICKEY [id number]) Physical Therapy Daily Note/Assessment Time In/Time Out Time In 08:55 Time Out 09:10 Subjective Subjective Denies pain, reports feeling better. Walking feels good. Therapeutic Activity Time Therapeutic Activity Minutes (minutes) 15 Therapeutic Activity Units 1 Therapeutic Activity Treatment Therapeutic Activity Comments Sit to stand Independent. Gait 100' with SBA. Initially patient pushes IV poll, but this becomes difficult as IV poll is not very friendly, so therapist takes over IV poll, and patient is able to ambulate without AD, no LOB. Distance is limited to SOB and fatigue. Total Physical Therapy Time Total Therapy Minutes 15 Total Physical Therapy Units 1 Summary Daily Note Summary Improved ability with ambulation, good balance, distance is limited due to SOB and fatigue vs weakness. Edit Result 05/27/23 08:55 MICKEY (Rec: 05/27/23 17:08 MICKEY [id number]) Physical Therapy Daily Note/Assessment Therapeutic Activity Treatment Chair Transfer Ability
[2023-05-27] MEDS: CEFTRIAXONE 1,000 MG in 0.9 % SODIUM CHLORIDE 50 ML 100 MG IV (22:23)
[2023-05-28] VITALS (10 sets, daily range): BP systolic 145–185; BP diastolic 67–98; PULSE 76–104; RESP 16–20; TEMP 36.7–37.2; O2SAT 90–93
[2023-05-28] MEDS: 0.9 % SODIUM CHLORIDE 1,000 ML 100 ML IV (00:01)
[2023-05-28] MEDS: OXYCODONE HCL 15 MG TABLET PO ×3 (01:38→23:39)
[2023-05-28 04:57] LABS: Basophils Absolute Auto 0.1 10^3/uL (0.0-0.1); Basophils Percent Auto 0.6 % (0.2-2.0); Eosinophils Absolute Auto 0.1 10^3/uL (0.0-0.7); Eosinophils Percent Auto 0.4 % (0.9-7.0); Hemoglobin 9.1 g/dL (12.0-16.0); Immature Granulocytes Abs Auto 1.76 10^3/uL (0.00-0.03); Immature Granulocytes Pct Auto 10.3 % (0.0-0.5); Lymphocytes Absolute Auto 2.3 10^3/uL (1.2-3.8); Lymphocytes Percent Auto 13.5 % (20.5-60.0); Mean Corpuscular HGB Conc 31.4 g/dL (29.9-35.2); Mean Corpuscular Hemoglobin 30.1 pg (26.7-34.0); Mean Platelet Volume 9.6 fL (9.5-13.5); Neutrophils Absolute Auto 11.9 10^3/uL (1.4-6.5); Neutrophils Percent Auto 69.2 % (43.0-75.0); Platelet Count 242 10^3/uL (150-450); Red Blood Count 3.02 10^6/uL (4.20-5.40); Red Cell Distribution Width 12.7 % (11.0-15.0); White Blood Count 17.1 10^3/uL (4.0-11.0)
[2023-05-28] MEDS: GABAPENTIN 300 MG CAPSULE 600 MG PO ×3 (05:00→21:43)
[2023-05-28] MEDS: BENZONATATE 100 MG CAPSULE PO (05:02)
[2023-05-28 05:29] LABS: PROCALCITONIN 0.06 ng/mL (0.00-0.50)
[2023-05-28 05:30] LABS: Alanine Aminotransferase 46 U/L (14-59); Albumin Globulin Ratio 0.5; Alkaline Phosphatase 93 U/L (46-116); Anion Gap 12.1; Aspartate Amino Transferase 49 U/L (15-37); BUN Creatinine Ratio 19.6; Bilirubin Total 0.3 mg/dL (0.2-1.0); Calcium 8.7 mg/dL (8.5-10.1); Chloride 111 mmol/L (98-107); Estimated GFR (African America 57 (>=60); Estimated GFR (Non-African Ame 47 (>=60); Globulin 3.9 g/dL; Glucose 103 mg/dL (74-106); Potassium 4.1 mmol/L (3.5-5.1); Sodium 144 mmol/L (136-145); Total Protein 5.9 g/dL (6.4-8.2)
--- NOTE | 2023-05-28 08:02 | CM.NOTE ---
2nd Notice of Important message From Medicare discussed with pt, pt denies any questions or concerns.
[2023-05-28] MEDS: OXYBUTYNIN CHLORIDE 5 MG TAB XL 10 MG PO (08:36)
[2023-05-28] MEDS: GUAIFENESIN 600 MG TAB.ER.12H PO ×2 (08:37→21:43)
[2023-05-28] MEDS: DULOXETINE HCL 60 MG CAPSULE.DR PO (08:37)
--- NOTE | 2023-05-28 09:56 | PT.DAILY ---
Physical Therapy Daily Note PT Daily Note/Assess Start: 05/27/23 09:16 Freq: Status: Active Protocol: Document 05/28/23 09:52 ENMANUEL (Rec: 05/28/23 09:56 SATHYAESTRELLA [id number]) Physical Therapy Daily Note/Assessment Time In/Time Out Time In 09:35 Time Out 09:50 Pain In Pain N/A Pain Out Pain N/A Subjective Subjective Pt supine upon arrival. Reports not sleeping well due to coughing spells. Complains of LEs swelling but her TANNER hose are rolled up at ankle, has not been wearing SCD's and reports probably not drinking enough water. Therapeutic Activity Time Therapeutic Activity Minutes (minutes) 13 Therapeutic Activity Units 1 Therapeutic Activity Treatment Bed Mobility Ability Independent Therapeutic Activity Comments Supine>sit IND. Sits EOB while TANNER hose are pulled up for her. Sit>stand IND to IV pole. Pt amb 120' with IV pole SUP. Needs to use restroom. Pt able to perform toilet transfer and pericare IND. Amb over to BS chair 30' with IV pole. Lotion is applied to legs are TANNER hose are brought back up, feet are elevated, and need met. Pt demonstrates moderate fatigue with this activity but is mostly IND. Total Physical Therapy Time Total Therapy Minutes 13 Total Physical Therapy Units 1 Summary Daily Note Summary Improved gait duration. Fatigued upon completion. Fair + dynamic standing balance with gait while using IV pole - slow dayron noticed.
--- NOTE | 2023-05-28 10:13 | XR_ITS ---
The [address] [address] Patient Name: DARLENE TANG MRN: [id number] date: 1945 Sex: F Assigned Patient Location: [place] Current Patient Location: [place] Accession/Order Number: [id number] Exam Date: 05/28/2023 10:28 Report Date: 05/28/2023 10:46 At the request of: ZULEYKA SANDERS Procedure: XR chest 1V EXAM: XR chest 1V HISTORY: SOB, cough COMPARISON: 05/27/2023 TECHNIQUE: AP portable erect FINDINGS: LUNGS: Moderate right basilar infiltrate. The left lung is clear VASCULATURE: No increased pulmonary vasculature. PLEURA: No pneumothorax, effusion, or pleural thickening. CARDIAC: No cardiomegaly or cardiac silhouette abnormality. MEDIASTINUM: No visible mass or adenopathy. BONES: No fracture or visible bone lesion. OTHER: Stable neurostimulator wire projects over the mid thoracic spine. XR/XR chest 1V IMPRESSION: Right lower lobe pneumonia Electronically authenticated by: EDWARDO MANE Date: 05/28/2023 10:46
--- NOTE | 2023-05-28 10:47 | CM.NOTE ---
Rounds made with Dr. Martínez, will discuss discharge with ALBERTA Santos. Pt verbalizes feeling very weak and fatigued today with increased cough.
[2023-05-28] MEDS: ACETAMINOPHEN 325 MG TABLET 650 MG PO (11:35)
[2023-05-28] MEDS: ALBUTEROL SULFATE 2.5 MG/3 ML VIAL NEB IH (11:44)
--- NOTE | 2023-05-28 11:56 | CM.NOTE ---
Talked with pt again regarding discharge planning and HH services. Pt continues to refuse services. Talked with pt about increased weakness after illness or nurse coming in to make sure she continues to show improvement. Pt continues to refuse services.
[2023-05-28] MEDS: DULOXETINE HCL 30 MG CAPSULE.DR PO (13:29)
--- NOTE | 2023-05-28 14:13 | P.PN_ITS ---
<Statement entered by Maria Guadalupe Martínez, - 05/28/23 17:14> This documentation has been reviewed and approved. I have also seen and evaluated patient and agree with assessments and plan of care. Progress Note: Subjective Subjective Interval history: 05/28/23 1015 The pt is sitting up in a bedside chair. She is alert and oriented x 3. She remains off O2 supplementation w/ stable O2 sat at 90%, but this is a little worse than yesterday. She continues to have a loose cough that is productive at times and was more frequent overnight. She reports poor sleep and feels week and tired. Her renal function is resolved to baseline today. We will saline lock her IVFs today. Her leukocytosis is improving on AM labs, pt remains afebrile, and her procalcitonin resolved to normal today. We will continue double gram neg and atypical coverage with Rocephin and Levaquin. Repeat CXR yesterday notes persistent faint patchy bilateral infiltrates. We will obtain a repeat CXR again today d/t pt feeling a little worse. Sputum culture is pending. Disposition: Discharge likely in the next 24-48 hrs pending clinical course. Exam Constitutional Vital Signs, click to edit/add: Last Vital Signs Temp 98.3 F 05/28/23 11:41 Pulse 76 05/28/23 11:44 Resp 16 05/28/23 11:44 BP 164/84 H 05/28/23 11:41 Pulse Ox 93 L 05/28/23 11:45 O2 Del Method Room Air 05/28/23 11:45 O2 Flow Rate 3 05/26/23 03:35 Common normals: no apparent distress, oriented x3 and alert General appearance: cooperative Orientation/consciousness: Yes awake [facility] Common normals: normocephalic, head/scalp atraumatic and hearing grossly normal bilaterally Eye Common normals: PERRL, EOMs intact bilaterally, conjunctivae normal and no scleral icterus General eye: normal appearance of both eyes Chest Common normals: inspection of chest normal Chest: symmetrical chest wall rise Respiratory Common normals: normal respiratory effort, no use of accessory muscles and clear to auscultation bilaterally Effort & inspection: able to speak in complete sentences Auscultation: rhonchi (Scattered, mostly clears with cough) and wheezes (Faint, scattered, EE BUL) Other: Frequent, loose cough Cardio Common normals: regular rate, regular rhythm, S1 normal heart sound, S2 normal heart sound, no murmurs and peripheral pulses 2+ throughout GI Common normals: Normal to inspection, nondistended, normoactive bowel sounds present, soft to palpation, non-tender and no hepatosplenomegaly Bladder/kidney exam: bladder normal to palpation Extremity Common normals: normal to inspection and no calf tenderness General: edema (Tr-1+); no clubbing and no cyanosis Neuro Common normals: CN's II-XII intact bilaterally, moves all extremities, no focal motor deficits and no sensory deficits noted Psych Thought content: hallucination(s) visual (Reports since admission when eyes are closed/falling to sleep) Attention/concentration: attention grossly intact Memory/cognition: memory grossly impaired Insight: insight good Judgement: judgment good Progress Note: Objective Labs Labs: Short CBC 05/28/23 Range/Units 04:33 WBC 17.1 H (4.0-11.0) 10^3/uL Hgb 9.1 L (12.0-16.0) g/dL Hct 29.0 L (36.0-48.0) % Plt Count 242 (150-450) 10^3/uL BMP 05/28/23 04:33 Sodium 144 Potassium 4.1 Chloride 111 H Carbon Dioxide 25.0 BUN 22.0 H Creatinine 1.12 H Glucose 103 Calcium 8.7 Liver Function 05/28/23 Range/Units 04:33 Total Bilirubin 0.3 (0.2-1.0) mg/dL AST 49 H (15-37) U/L ALT 46 (14-59) U/L Alkaline Phosphatase 93 (46-116) U/L Albumin 2.0 L (3.4-5.0) g/dL Imaging Chest x-ray: Attestation: I have reviewed the pertinent imaging results. Radiologist's impression: IMPRESSION: Faint patchy bilateral infiltrates. Similar in appearance to the prior exam. Progress Note: A&P Assessment and Plan (1) Sepsis: Assessment and Plan: ACUTE * Resolving * PCT 0.06 today - resolved * Leukocytosis improving (17.1) - 26.6 yesterday * lactic acidosis resolved * BC x 2 obtained in ED - neg to date * Sputum culture obtained - pending * Saline lock IVFs * See pneumonia for ABX * CBC, CMP, PCT daily * AEB on admission: * SEP1 Criteria: Temp 101.1, HR 105, RR 22, WBC 24,600, Source - Multifocal pneumonia * SEP3 Criteria: qSOFA score of 2 (AMS-GCS 14, RR 22), SOFA score of 6 (PF ratio 250, GCS 14, Cr 3.7), Source - multifocal pneumonia * PCT 0.52, 0.61 (2) Multifocal pneumonia: Assessment and Plan: ACUTE * Subjectively a little worse today d/t persistent cough * Increase Tessalon perles to 200 mg q8h PRN * Leukocytosis improving (17.1) - 26.6 yesterday * Continue IVPB Rocephin & Levaquin - double gram neg and atypical coverage * CXR yesterday - Unchanged from admission * Repeat CXR now to assess for acute changes w/ worsening cough * Sputum culture obtained - pending * Continue Guaifenesin and OPEP for sputum mobilization * Duonebs prn q4h (3) Acute respiratory failure with hypoxia: Assessment and Plan: ACUTE * Resolved - remains stable at 90-93% on RA (4) Acute metabolic encephalopathy: Assessment and Plan: ACUTE * Pt's confusion noted on admission resolved * Pt reports visual hallucinations since admission when her eyes are c losed/falling to sleep * Made sleep difficult for the pt last night * All current medications reviewed and no obvious med w/ SE of hallucinations noted * Likely baseline dementia exacerbated by hospitalization - monitor * Consider adding seroquel at HS pending clinical course (5) Acute kidney injury: Assessment and Plan: ACUTE * Resolved (6) Chronic pain: Assessment and Plan: CHRONIC * Continue home gabapentin, oxycodone * Hold home naproxen d/t DEVAN - resume at d/c (7) HTN (hypertension): Assessment and Plan: CHRONIC * Continue to hold home lisinopril d/t DEVAN * resume in AM * PRN Hydralazine IVP (8) OAB (overactive bladder): Assessment and Plan: CHRONIC * Continue home Myrbetriq (9) Depression: Assessment and Plan: CHRONIC * Continue home duloxetine (10) COPD (chronic obstructive pulmonary disease): Assessment and Plan: CHRONIC * Hold home Stiolto Respimat * PRN duonebs
[2023-05-28] MEDS: CEFTRIAXONE 1,000 MG in 0.9 % SODIUM CHLORIDE 50 ML 100 MG IV (22:36)
[2023-05-29 04:12] VITALS: BP 157/67; PULSE 95; RESP 16; TEMP 36.7; O2SAT 94
[2023-05-29 05:09] LABS: Basophils Absolute Auto 0.2 10^3/uL (0.0-0.1); Basophils Percent Auto 0.7 % (0.2-2.0); Eosinophils Absolute Auto 0.1 10^3/uL (0.0-0.7); Eosinophils Percent Auto 0.5 % (0.9-7.0); Hematocrit 31.1 % (36.0-48.0); Hemoglobin 9.9 g/dL (12.0-16.0); Immature Granulocytes Abs Auto 2.24 10^3/uL (0.00-0.03); Immature Granulocytes Pct Auto 11.2 % (0.0-0.5); Lymphocytes Absolute Auto 2.7 10^3/uL (1.2-3.8); Lymphocytes Percent Auto 13.2 % (20.5-60.0); Mean Corpuscular HGB Conc 31.8 g/dL (29.9-35.2); Mean Corpuscular Hemoglobin 29.8 pg (26.7-34.0); Mean Corpuscular Volume 93.7 fL (81.0-99.0); Mean Platelet Volume 9.8 fL (9.5-13.5); Monocytes Absolute Auto 1.1 10^3/uL (0.3-0.8); Monocytes Percent Auto 5.3 % (1.7-12.0); Neutrophils Absolute Auto 13.8 10^3/uL (1.4-6.5); Neutrophils Percent Auto 69.1 % (43.0-75.0); Platelet Count 281 10^3/uL (150-450); Red Blood Count 3.32 10^6/uL (4.20-5.40); Red Cell Distribution Width 12.7 % (11.0-15.0)
[2023-05-29 05:23] VITALS: O2SAT 91
[2023-05-29] MEDS: GABAPENTIN 300 MG CAPSULE 600 MG PO (05:40)
[2023-05-29 05:54] LABS: Alanine Aminotransferase 46 U/L (14-59); Albumin Globulin Ratio 0.5; Albumin Level 2.3 g/dL (3.4-5.0); Alkaline Phosphatase 94 U/L (46-116); Anion Gap 13.6; Aspartate Amino Transferase 37 U/L (15-37); Bilirubin Total 0.3 mg/dL (0.2-1.0); Calcium 9.3 mg/dL (8.5-10.1); Carbon Dioxide 26.5 mmol/L (21.0-32.0); Chloride 108 mmol/L (98-107); Estimated GFR (African America >60 (>=60); Estimated GFR (Non-African Ame 58 (>=60); Globulin 4.3 g/dL; Glucose 109 mg/dL (74-106); Potassium 4.1 mmol/L (3.5-5.1); Sodium 144 mmol/L (136-145); Total Protein 6.6 g/dL (6.4-8.2)
[2023-05-29 06:54] LABS: PROCALCITONIN <0.05 ng/mL (0.00-0.50)
[2023-05-29 08:00] VITALS: BP 164/83; PULSE 93; RESP 18; TEMP 37; O2SAT 92
--- NOTE | 2023-05-29 10:02 | P.DS_ITS ---
DS: Providers Provider Date of admission: 05/26/23 02:51 Primary care physician: Sonia Pulliam MD Consults: 05/26/23 02:14 Occupational Therapy Eval and Treat Routine Reason for consultation: weakness Has provider been notified: No Physical Therapy Eval and Treat Routine Reason for consultation: weakness Has provider been notified: No DS: Diagnosis Discharge Diagnosis (1) Sepsis: (2) Multifocal pneumonia: (3) Acute respiratory failure with hypoxia: (4) Acute metabolic encephalopathy: (5) Acute kidney injury: (6) Chronic pain: (7) HTN (hypertension): (8) OAB (overactive bladder): (9) Depression: (10) COPD (chronic obstructive pulmonary disease): DS: Summary Hospital Course Hospital Course: Patient admitted with altered mental status, pneumonia, sepsis, acute renal failure, moderate protein calorie malnutrition with uncontrolled hypertension, blood pressure elevated somewhat today, white blood cell count improving, she is off of supplemental oxygen, her creatinine is back to her baseline is normal, at this point she feels comfortable with going home. She is ambulating well without need for supplemental oxygen she can be discharged home later today. Medications see list. Follow-up with PCP within the next week. Time Spent with Patient Time attestation: Total time spent providing and/or coordinating discharge services: Exam Constitutional Vital Signs, click to edit/add: Last Vital Signs Temp 98.6 F 05/29/23 08:00 Pulse 93 H 05/29/23 08:00 Resp 18 05/29/23 08:00 BP 164/83 H 05/29/23 08:00 Pulse Ox 92 L 05/29/23 08:00 O2 Del Method Room Air 05/29/23 08:00 O2 Flow Rate 3 05/26/23 03:35 Common normals: no apparent distress General appearance: cooperative Orientation/consciousness: Yes awake [facility] Common normals: normocephalic, head/scalp atraumatic and hearing grossly normal bilaterally Eye Common normals: PERRL, EOMs intact bilaterally, conjunctivae normal and no scleral icterus General eye: normal appearance of both eyes Chest Common normals: inspection of chest normal Chest: symmetrical chest wall rise Respiratory Common normals: normal respiratory effort and clear to auscultation bilaterally Effort & inspection: able to speak in complete sentences Auscultation: rhonchi (Diffuse) and wheezes (Diffuse) Other: Frequent, loose cough Cardio Common normals: regular rate, regular rhythm, S1 normal heart sound, S2 normal heart sound, no murmurs and peripheral pulses 2+ throughout GI Common normals: Normal to inspection, nondistended, normoactive bowel sounds present, soft to palpation, non-tender and no hepatosplenomegaly Bladder/kidney exam: bladder normal to palpation Extremity Common normals: normal to inspection and no calf tenderness General: edema (Tr-1+); no clubbing and no cyanosis Neuro Common normals: CN's II-XII intact bilaterally, moves all extremities, no focal motor deficits and no sensory deficits noted Psych Thought content: hallucination(s) visual (Reports since admission when eyes are closed/falling to sleep) Attention/concentration: attention grossly intact Memory/cognition: memory grossly impaired Insight: insight good Judgement: judgment good DS: Data Data Completed and Pending Labs on day of discharge: Labs from last 24 hours 05/29/23 04:22 WBC 20.0 H RBC 3.32 L Hgb 9.9 L Hct 31.1 L MCV 93.7 MCH 29.8 MCHC 31.8 RDW 12.7 Plt Count 281 MPV 9.8 Neut % (Auto) 69.1 Lymph % (Auto) 13.2 L [place] % (Auto) 5.3 Eos % (Auto) 0.5 L Baso % (Auto) 0.7 Neut # (Auto) 13.8 H Lymph # (Auto) 2.7 [place] # (Auto) 1.1 H Eos # (Auto) 0.1 Baso # (Auto) 0.2 H Abs Immat Gran (auto) 2.24 H Imm/Tot Granulo (auto) 11.2 H Sodium 144 Potassium 4.1 Chloride 108 H Carbon Dioxide 26.5 Anion Gap 13.6 BUN 13.0 Creatinine 0.93 Est GFR ( Amer) >60 Est GFR (Non-Af Amer) 58 L BUN/Creatinine Ratio 14.0 Glucose 109 H Calcium 9.3 Total Bilirubin 0.3 AST 37 ALT 46 Alkaline Phosphatase 94 Total Protein 6.6 Albumin 2.3 L Globulin 4.3 Albumin/Globulin Ratio 0.5 Procalcitonin <0.05 Preliminary micro results at discharge 05/27/23 09:10 Sputum Culture - Preliminary Sputum - Expectorated Sputum 05/25/23 22:07 - Preliminary Blood NO GROWTH AT 36-48 HOURS. FINAL TO FOLLOW. 05/25/23 21:40 Blood Culture Result 1 - Preliminary Blood NO GROWTH AT 36-48 HOURS. FINAL TO FOLLOW. Discharge Plan Discharge Disposition: Home, Self-Care Condition: Good Discharge Medications: New levofloxacin 500 mg tablet 500 mg PO DAILY 10 Days Qty: 10 0RF prednisone 20 mg tablet 20 mg PO BID 5 Days Qty: 10 0RF Continued gabapentin 600 mg tablet 600 mg PO TID oxycodone 15 mg tablet 15 mg PO Q8H PRN (Reason: pain) lisinopril 5 mg tablet 5 mg PO DAILY naproxen 500 mg tablet 500 mg PO DAILY Patient Comments: takes at noon duloxetine 30 mg capsule,delayed release(DR/EC) 30 mg PO QDAY Patient Comments: takes at 4pm Myrbetriq 50 mg tablet extended release 24 hr 50 mg PO DAILY Stiolto Respimat 2.5-2.5 mcg/actuation mist 2 puff INHALATION Q24H duloxetine 60 mg capsule,delayed release(DR/EC) 60 mg PO DAILY Patient Comments: takes with breakfast diphenhydramine HCl [Benadryl] 25 mg capsule 50 mg PO .HS PRN (Reason: sleep) Patient Instructions: Levofloxacin (By mouth), Community Acquired Pneumonia (ED) Forms: Portal Instructions Follow Up Appointments: June 01 @ 9:30am with Dr. Pulliam [phone]
[2023-05-29] MEDS: LEVOFLOXACIN IN DEXTROSE 5 % 750 MG/150 ML IV.SOLN 100 MG IV (10:19)
[2023-05-29] MEDS: ONDANSETRON PF 4 MG/2 ML VIAL IV (10:44)
--- NOTE | 2023-05-29 11:02 | PT.DAILY ---
Physical Therapy Daily Note PT Daily Note/Assess Start: 05/27/23 09:16 Freq: Status: Active Protocol: Document 05/29/23 10:55 [id number] (Rec: 05/29/23 11:02 [id number]) Physical Therapy Daily Note/Assessment Time In/Time Out Time In 08:50 Time Out 09:03 Pain In Pain Level 0 Pain Out Pain Level 0 Subjective Subjective Patient received in bed and agreeable to participate with PT. States she hopes to go home today or tomorrow. Therapeutic Activity Time Therapeutic Activity Minutes (minutes) 13 Therapeutic Activity Units 1 Therapeutic Activity Treatment Bed Mobility Ability Modified Independent Chair Transfer Ability Modified Independent Therapeutic Activity Comments Patient reports slight light headedness upon initial standing. Patient stood ~30 seconds and reports it has cleared. 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 Reports fatigue @ ~75 feet and required 1 standing therapeutic rest break. Patient returned to room with slower dayron of gait and seated in chair at bedside, LE elevated and call escobedo within reach. Patient reports nausea and proceeded with emesis, then reported feeling better. Sari nurse informed of incident and acknowledge receiving information. Total Physical Therapy Time Total Therapy Minutes 13 Total Physical Therapy Units 1 Summary Daily Note Summary Patient demonstrates increased ambulation distance with fatigue. Patient declined ther ex this date after emesis occurred.
[2023-05-29] MEDS: DULOXETINE HCL 60 MG CAPSULE.DR PO (11:22)
[2023-05-29] MEDS: OXYBUTYNIN CHLORIDE 5 MG TAB XL 10 MG PO (11:23)
[2023-05-29] MEDS: GUAIFENESIN 600 MG TAB.ER.12H PO (11:23)
[2023-05-29] MEDS: LISINOPRIL 5 MG TABLET PO (11:23)
[2023-05-29 11:38] VITALS: BP 168/78; PULSE 95; RESP 16; TEMP 36.8; O2SAT 87
--- NOTE | 2023-05-31 15:38 | CM.DCFOLLOWU ---
Person spoke with: Catherine How are you feeling? Much better How is your pain? No pain Did you understand your discharge instructions? Yes Do you have any questions about your discharge instructions? No Were you given any prescriptions at discharge? Yes Were you able to get your prescriptions filled? Yes Do you understand how to take your medications as ordered? Yes Do you have any questions about your follow up appointment and do you plan to keep your follow up appointment? Yes will f/u with my primary care doctor Is there anything else that you would like to discuss? No Questions/Comments/Concerns/Other:
== END 2023-05-29 12:15 | disposition home or self-care (01) | DRG 871 ==
LOC: ER 21:27 → MS 05-26 02:53
PROVIDERS: Nurse Practitioner; Nurse Practitioner Acute Care; Admitting Provider Family Medicine; Emergency Provider Internal Medicine; PCP Family Medicine; Visit Provider Family Medicine
DX: A41.9 Sepsis, unspecified organism (principal); G93.41 Metabolic encephalopathy; J18.9 Pneumonia, unspecified organism; J96.01 Acute respiratory failure with hypoxia; N17.9 Acute kidney failure, unspecified; E44.0 Moderate protein-calorie malnutrition; I11.0 Hypertensive heart disease with heart failure; I50.9 Heart failure, unspecified; J44.9 Chronic obstructive pulmonary disease, unspecified; N32.81 Overactive bladder; G89.29 Other chronic pain; F32.A Depression, unspecified; Z79.1 Long term (current) use of non-steroidal anti-inflammatories (NSAID); Z79.899 Other long term (current) drug therapy; Z82.49 Family history of ischemic heart disease and other diseases of the circulatory system; Z82.3 Family history of stroke; Z83.6 Family history of other diseases of the respiratory system; Z90.13 Acquired absence of bilateral breasts and nipples; Z85.3 Personal history of malignant neoplasm of breast; Z68.36 Body mass index [BMI] 36.0-36.9, adult
CPT/HCPCS: 0202U; 36415; 70450; 71045; 71250; 80048; 80053; 81003; 83605; 84145; 84484; 85007; 85025; 85027; 87040; 87070; 87106; 87205; 93005; 94640; 94667; 94668; 94761; 96365; 96366; 96367; 96375; 97161; 97165; 97530; 97535; 99285; J0456

== ENCOUNTER 2023-06-15 07:26 | Outpatient (RCR) | payer MEDICARE, SELFPAY ==
[2023-06-15 14:41] LABS: Basophils Absolute Auto 0.1 10^3/uL (0.0-0.1); Basophils Percent Auto 0.7 % (0.2-2.0); Eosinophils Absolute Auto 0.2 10^3/uL (0.0-0.7); Eosinophils Percent Auto 2.3 % (0.9-7.0); Hematocrit 39.7 % (36.0-48.0); Hemoglobin 12.1 g/dL (12.0-16.0); Immature Granulocytes Abs Auto 0.03 10^3/uL (0.00-0.03); Immature Granulocytes Pct Auto 0.4 % (0.0-0.5); Lymphocytes Absolute Auto 1.7 10^3/uL (1.2-3.8); Lymphocytes Percent Auto 24.7 % (20.5-60.0); Mean Corpuscular HGB Conc 30.5 g/dL (29.9-35.2); Mean Corpuscular Hemoglobin 29.6 pg (26.7-34.0); Mean Corpuscular Volume 97.1 fL (81.0-99.0); Mean Platelet Volume 10.8 fL (9.5-13.5); Monocytes Absolute Auto 0.4 10^3/uL (0.3-0.8); Neutrophils Absolute Auto 4.5 10^3/uL (1.4-6.5); Neutrophils Percent Auto 65.9 % (43.0-75.0); Platelet Count 259 10^3/uL (150-450); Red Blood Count 4.09 10^6/uL (4.20-5.40); Red Cell Distribution Width 13.1 % (11.0-15.0); White Blood Count 6.9 10^3/uL (4.0-11.0)
[2023-06-15 14:47] LABS: Reticulocyte Pct Auto 1.56 % (0.60-3.10)
[2023-06-15 14:50] LABS: Erythrocyte Sedimentation Rate 52 mm/hr (<=30)
[2023-06-15 15:12] LABS: Alanine Aminotransferase 17 U/L (14-59); Albumin Level 3.7 g/dL (3.4-5.0); Alkaline Phosphatase 85 U/L (46-116); Anion Gap 13.1; Aspartate Amino Transferase 20 U/L (15-37); BUN Creatinine Ratio 20.9; Bilirubin Total 0.4 mg/dL (0.2-1.0); C Reactive Protein <0.50 mg/dL (<=0.50); Carbon Dioxide 29.7 mmol/L (21.0-32.0); Chloride 101 mmol/L (98-107); Estimated GFR (African America 48 (>=60); Estimated GFR (Non-African Ame 40 (>=60); Globulin 3.7 g/dL; Glucose 174 mg/dL (74-106); Lactate Dehydrogenase 202 U/L (81-234); Potassium 4.8 mmol/L (3.5-5.1); Sodium 139 mmol/L (136-145); Total Protein 7.4 g/dL (6.4-8.2)
[2023-06-15 15:24] LABS: Percent Iron Saturation 29.7 %
[2023-06-16 15:09] LABS: Albumin 3.7 g/dL (2.9-4.4); Alpha-1-Globulin 0.3 g/dL (0.0-0.4); Gamma Globulin 0.7 g/dL (0.4-1.8); Immunoglobulin A, Qn, Serum 195 mg/dL (64-422); Immunoglobulin G, Qn, Serum 865 mg/dL (586-1602); Immunoglobulin M, Qn, Serum 54 mg/dL (26-217); Protein, Total 6.9 g/dL (6.0-8.5)
== END 2023-06-27 23:59 | disposition home or self-care (01) ==
LOC: INF 07:26
PROVIDERS: PCP Family Medicine; Visit Provider Internal Medicine Hematology & Oncology
DX: D64.9 Anemia, unspecified (principal); D72.829 Elevated white blood cell count, unspecified; Z90.13 Acquired absence of bilateral breasts and nipples; Z85.3 Personal history of malignant neoplasm of breast; I27.20 Pulmonary hypertension, unspecified; J44.9 Chronic obstructive pulmonary disease, unspecified; E78.00 Pure hypercholesterolemia, unspecified; M81.0 Age-related osteoporosis without current pathological fracture; Z80.3 Family history of malignant neoplasm of breast; M19.90 Unspecified osteoarthritis, unspecified site; I11.0 Hypertensive heart disease with heart failure; I50.9 Heart failure, unspecified; K21.9 Gastro-esophageal reflux disease without esophagitis; N28.9 Disorder of kidney and ureter, unspecified; Z87.01 Personal history of pneumonia (recurrent)
CPT/HCPCS: 36415; 80053; 82728; 82784; 83540; 83550; 83615; 84155; 84165; 85025; 85652; 86140; 86334; G0463

== ENCOUNTER 2023-07-20 07:30 | Outpatient (RCR) | payer MEDICARE, SELFPAY ==
[2023-07-20 12:23] LABS: Alanine Aminotransferase 22 U/L (14-59); Albumin Globulin Ratio 1.1; Albumin Level 3.7 g/dL (3.4-5.0); Alkaline Phosphatase 85 U/L (46-116); Anion Gap 12.9; Aspartate Amino Transferase 24 U/L (15-37); BUN Creatinine Ratio 18.3; Bilirubin Total 0.5 mg/dL (0.2-1.0); Calcium 9.8 mg/dL (8.5-10.1); Carbon Dioxide 29.4 mmol/L (21.0-32.0); Chloride 103 mmol/L (98-107); Estimated GFR (African America 50 (>=60); Estimated GFR (Non-African Ame 41 (>=60); Globulin 3.5 g/dL; Glucose 111 mg/dL (74-106); Potassium 5.3 mmol/L (3.5-5.1); Sodium 140 mmol/L (136-145); Total Protein 7.2 g/dL (6.4-8.2)
[2023-07-20 12:30] LABS: Percent Iron Saturation 26.6 %
[2023-07-20 12:32] LABS: Thyroid Stimulating Hormone 1.775 uIU/mL (0.358-3.740)
[2023-07-20 12:34] LABS: Basophils Absolute Auto 0.1 10^3/uL (0.0-0.1); Eosinophils Absolute Auto 0.5 10^3/uL (0.0-0.7); Eosinophils Percent Auto 7.6 % (0.9-7.0); Hemoglobin 12.2 g/dL (12.0-16.0); Immature Granulocytes Abs Auto 0.02 10^3/uL (0.00-0.03); Immature Granulocytes Pct Auto 0.3 % (0.0-0.5); Lymphocytes Absolute Auto 2.2 10^3/uL (1.2-3.8); Lymphocytes Percent Auto 32.7 % (20.5-60.0); Mean Corpuscular HGB Conc 31.3 g/dL (29.9-35.2); Mean Corpuscular Hemoglobin 29.7 pg (26.7-34.0); Mean Corpuscular Volume 94.9 fL (81.0-99.0); Mean Platelet Volume 11.1 fL (9.5-13.5); Monocytes Absolute Auto 0.4 10^3/uL (0.3-0.8); Monocytes Percent Auto 5.8 % (1.7-12.0); Neutrophils Absolute Auto 3.5 10^3/uL (1.4-6.5); Neutrophils Percent Auto 52.6 % (43.0-75.0); Platelet Count 209 10^3/uL (150-450); Red Blood Count 4.11 10^6/uL (4.20-5.40); Red Cell Distribution Width 12.5 % (11.0-15.0); White Blood Count 6.7 10^3/uL (4.0-11.0)
[2023-07-20 13:26] LABS: Free T4 0.93 ng/dL (0.76-1.46)
== END 2023-07-27 23:59 | disposition home or self-care (01) ==
LOC: INF 07:30
PROVIDERS: PCP Family Medicine; Visit Provider Internal Medicine Hematology & Oncology
DX: D64.9 Anemia, unspecified (principal); D72.829 Elevated white blood cell count, unspecified; Z85.3 Personal history of malignant neoplasm of breast; Z90.13 Acquired absence of bilateral breasts and nipples; G62.9 Polyneuropathy, unspecified; N28.9 Disorder of kidney and ureter, unspecified
CPT/HCPCS: 36415; 80053; 82306; 82607; 82728; 82746; 83540; 83550; 84439; 84443; 85025; G0463

== ENCOUNTER 2023-08-26 10:10 | Outpatient (OUT) | payer MEDICARE, SELFPAY ==
--- NOTE | 2023-08-26 10:12 | CT_ITS ---
The [address] [address] Patient Name: DARLENE TANG MRN: [id number] date: 1945 Sex: F Assigned Patient Location: CT Current Patient Location: CT Accession/Order Number: [id number] Exam Date: 08/26/2023 10:17 Report Date: 08/26/2023 11:15 At the request of: TANNER JONES Procedure: CT chest wo con EXAMINATION: CT chest wo con HISTORY: Follow Up 0.6 Left Lung Nodule COMPARISON: 05/26/2023 TECHNIQUE: Multi-planar CT images were created with IV contrast. Axial, Coronal, and Sagittal images. Dose reduction techniques were achieved by using automated exposure control and/or adjustment of mA and/or kV according to patient size and/or use of iterative reconstruction technique. FINDINGS: LUNGS: Interval resolution of previously identified parenchymal infiltrates. Resolution of previously identified left upper lobe groundglass infiltrate. Scattered punctate calcified nodules, prior granulomatous process. No suspicious pulmonary nodule or mass. PLEURA: No mass, effusion, or pneumothorax. VASCULATURE: No abnormality. LENA: Calcified right hilar lymph nodes MEDIASTINUM: Calcified subcarinal lymph nodes CARDIAC: No enlargement, pericardial thickening, or significant calcification. AORTA: No aneurysm or dissection. CHEST WALL: No mass or axillary adenopathy. BONES: No bone lesion or fracture. LIMITED ABDOMEN: No suspicious findings. Limited images of the upper abdomen. OTHER: Bilateral breast implants neurostimulator left flank with the lead extending to the T6 level CT/CT chest wo con IMPRESSION: Resolution of previously identified patchy and nodular parenchymal infiltrates Electronically authenticated by: EDWARDO MANE Date: 08/26/2023 11:15
--- OUTSIDE RECORDS SUMMARY | 2023-08-26 10:16 | XMS_ITS ---
Patient Summarization (C-CDA 2.1 CCD) Created on: August 26, 2023 Catherine Ayers : 1945 Sex: Female Author Organization Sample organization Care Team Providers Care Environmental Auditor Name Role Phone Oumar Gunter MD Primary Care Provider Miguel Schultz II Unavailable [phone] MD Oumar Gunter Primary Care Provider MD Miguel Schultz II Attending Provider [phone] MIGUEL SCHULTZ Admitting Unavailable MIGUEL SCHULTZ Attending Unavailable GUNTER, DR OUMAR San Primary Care Unavailable GUNTER, DR OUMAR San Admitting Unavailable GUNTER, DR OUMAR San Attending Unavailable GUNTER, DR OUMAR San Primary Care Unavailable MEAGAN, SHAIKH Sweetie Admitting Unavailable SHAIKH Sweetie RHODES Attending Unavailable GUNTER, DR OUMAR San Referring Unavailable GUNTER, DR OUMAR San Primary Care Unavailable CLEM, DR CIARRA Recinos Consulting Unavailable MEAGAN, SHAIKH Sweetie Consulting Unavailable GUNTER, DR OUMAR San Admitting Unavailable GUNTER, DR OUMAR San Attending Unavailable GUNTER, DR OUMAR San Primary Care Unavailable GUNTER, DR OUMAR San Consulting Unavailable GUNTER, DR OUMAR San Admitting Unavailable GUNTER, DR OUMAR San Attending Unavailable GUNTER, DR OUMAR San Primary Care Unavailable GUNTER, DR OUMAR San Consulting Unavailable GUNTER, DR OUMAR San Admitting Unavailable GUNTER, DR OUMAR San Attending Unavailable GUNTER, DR OUMAR San Primary Care Unavailable CHURCH HILL, DR EDWARDO Faria Consulting Unavailable GUNETR, DR OUMAR San Consulting Unavailable GUNTER, DR OUMAR San Admitting Unavailable GUNTER, DR OUMAR San Attending Unavailable GUNTER, DR OUMAR San Primary Care Unavailable GUNTER, DR OUMAR San Consulting Unavailable Oumar Gunter Unavailable MD Oumar Gunter Primary Care Provider MD Miguel Schultz II Attending Provider [phone] Linda Renteria Unavailable MD Oumar Gunter Primary Care Provider MD Linda Renteria Attending Provider MD Oumar Gunter Primary Care Provider MD Linda Renteria Attending Provider MD Linda Renteria Referring Provider Oumar Gunter Primary Care Unavailable Linda Renteria Admitting Unavailable Linda Renteria Attending Unavailable Linda Renteria Referring Unavailable Linda Renteria Admitting Unavailable Linda Renteria Attending Unavailable Oumar Gunter Primary Care Unavailable Miguel Schultz II Admitting UnavailMiguel Stokes II Attending UnavailOumar Mackenzie Primary Care Unavailable Shawn, Fidelina Admitting Unavailable Shawn Fidelina Attending Unavailable Oumar Gunetr Primary Care Unavailable MD Oumar Gunter Primary Care Provider MD Fidelina Escobar Attending Provider [phone] Allergies Allergy Classification Reported Allergen(s) Allergy Type Date of Onset Reaction(s) Facility (4 sources) Adhesive Tape Allergy to substance 4 Rash [facility] (20 sources) Adhesive Tape Drug allergy rash [email or web address] Other (2 sources) Adhesive agent Drug allergy (disorder) 6 [facility] (1 source) Adhesive Tape Drug allergy (disorder) 4 [facility] Repository Encounters Encounter Date Encounter Type Care Provider Facility Start: 06-15-2023 End: 06-15-2023 ambulatory Fidelina Escobar Facility:[facility] Start: 06-15-2023 End: 06-15-2023 ambulatory MD Oumar Gunter Work Phone: [facility] Work Phone: Start: 06-15-2023 End: 06-15-2023 Departed Referred MD Oumar Gunter Work Phone: [facility] Start: 06-15-2023 Non-patient / Non-visit MD Bing Gunter Work Phone: [facility] Work Phone: Start: 06-02-2023 End: 06-02-2023 Patient encounter procedure MD Oumar Gunter Work Phone: [facility] Work Phone: Start: 05-31-2023 Non-patient / Non-visit MD Bnig Gunter Work Phone: [facility] Work Phone: Start: 05-29-2023 Non-patient / Non-visit MD Bing Gunter Work Phone: [facility] Work Phone: Start: 05-28-2023 Non-patient / Non-visit MD Bing Gunter Work Phone: [facility] Work Phone: Start: 05-27-2023 Non-patient / Non-visit MD Bing Gunter Work Phone: [facility] Work Phone: Start: 05-27-2023 Non-patient / Non-visit MD Bing Gunter Work Phone: [facility] Work Phone: Start: 05-26-2023 Non-patient / Non-visit MD Bing Gunter Work Phone: [facility] Work Phone: Start: 05-25-2023 Non-patient / Non-visit MD Bing Gunter Work Phone: [facility] Work Phone: Start: 05-04-2023 End: 05-04-2023 ambulatory Oumar Gunter Other [facility] [employer] Other Start: 05-04-2023 Telephone encounter Oumar Gunter [facility] Start: 03-10-2023 End: 03-10-2023 ambulatory Oumar Gunter Other [email or web address] Other Start: 03-10-2023 Office outpatient vi sit 15 minutes Oumar Gunter [facility] Start: 03-09-2023 End: 03-09-2023 ambulatory Myra Other [email or web address] Other Start: 03-09-2023 Office outpatient vi sit 25 minutes Linda Winkleroroge [facility] Start: 03-03-2023 Telephone encounter Oumar Gunter [facility] Start: 03-03-2023 End: 03-03-2023 ambulatory MD Oumar Gunter Work Phone: [email or web address] Other Start: 03-03-2023 End: 03-03-2023 Patient encounter procedure MD Oumar Gunter Work Phone: [facility]Res[facility] Work Phone: Start: 03-02-2023 End: 03-02-2023 ambulatory Oumar Gunter Facility:[facility] Start: 03-02-2023 End: 03-02-2023 Patient encounter procedure MD Oumar Gunter Work Phone: [facility]Electrodiagnostics Work Phone: Start: 02-25-2023 End: 02-25-2023 ambulatory MD Oumar Gunter Work Phone: [facility] Work Phone: Start: 02-25-2023 End: 02-25-2023 Patient encounter procedure MD Oumar Gunter Work Phone: [facility]Electrodiagnostics Work Phone: Start: 02-15-2023 End: 02-15-2023 ambulatory Oumar Gunter Other [email or web address] Other Start: 02-15-2023 Telephone encounter Oumar Gunter [facility] Start: 02-10-2023 End: 02-10-2023 ambulatory Linda Winkleroroge Other [email or web address] Other Start: 02-10-2023 Telephone encounter Myra [facility] [employer] Start: 02-08-2023 End: 02-08-2023 ambulatory Myra Other [email or web address] Other Start: 02-08-2023 Office outpatient ne w 45 minutes Myra [facility] Start: 02-01-2023 End: 02-01-2023 ambulatory Oumar Shasha Other [email or web address] Other Start: 02-01-2023 Telephone encounter Oumar Gunter [facility] Start: 01-05-2023 End: 01-05-2023 ambulatory Oumar Shasha Other [email or web address] Other Start: 01-05-2023 Telephone encounter Oumar Gunter [facility] Start: 12-31-2022 End: 12-31-2022 ambulatory Oumar Shasha Other [email or web address] Other Start: 12-31-2022 Telephone encounter Oumar Gunter [facility] Start: 10-01-2022 End: 10-01-2022 ambulatory Oumar Shasha Other [email or web address] Other Start: 10-01-2022 Telephone encounter Oumar Gunter [facility] Start: 09-23-2022 End: 09-23-2022 ambulatory Oumar Shasha Other [email or web address] Other Start: 09-23-2022 Telephone encounter Oumar Gunter [facility] Start: 09-09-2022 End: 09-09-2022 ambulatory Oumar Shasha Other [email or web address] Other Start: 09-09-2022 Telephone encounter Oumar Gunetr [facility] Start: 09-08-2022 End: 09-08-2022 ambulatory Oumar Gunter Other [email or web address] Other Start: 09-08-2022 Office outpatient vi sit 25 minutes Oumar Gunter [facility] Start: 07-03-2022 End: 07-03-2022 ambulatory Oumar Gunter Other [email or web address] Other Start: 07-03-2022 Telephone encounter Oumar Gunter [facility] Start: 07-02-2022 End: 07-02-2022 Patient encounter procedure MD Oumar Gunter Work Phone: [facility] Start: 07-02-2022 End: 07-02-2022 ambulatory Miguel Schultz II Facility:[facility] Start: 07-02-2022 End: 07-02-2022 ambulatory MD Oumar Gunter Work Phone: [facility] Work Phone: Start: 06-03-2022 End: 06-03-2022 ambulatory Oumar Gunter Other [email or web address] Other Start: 06-03-2022 Telephone encounter Oumar Gunter [facility] Start: 04-08-2022 End: 04-08-2022 ambulatory Oumar Gunter Other [email or web address] Other Start: 04-08-2022 Telephone encounter Oumar Gunter [facility] Start: 02-02-[address] OUMAR GUNTER Facil ity:[facility] Start: 10-17-2021 End: 10-18-[address] OUMAR GUNTER Facility:[facility] Start: 10-16-2021 End: 10-16-2021 Patient encounter procedure MD Oumar Gunter Work Phone: [facility] Start: 09-18-2021 End: 06-23-2022 ambulatory Miguel Saw II Other [email or web address] Other Start: 09-18-2021 Office outpatient vi sit 15 minutes Miguel Dallas II [facility] Start: 09-04-2021 (Post-Op) Post-Op Miguel Dallas II [facility] Start: 09-04-2021 End: 09-04-2021 ambulatory Miguel Saw II Other [email or web address] Other Start: 09-04-2021 End: 09-04-2021 Patient encounter procedure MD Oumar Gunter Work Phone: [facility] Start: 08-27-2021 End: 10-03-2021 ambulatory MIGUEL SAW Facility: Start: 08-20-2021 End: 08-20-2021 Patient encounter procedure Mary Pacheco OD Work Phone: Ophthalmology Comment on above: S/P cataract extract ion and insertion of intraocular lens, left (Primary Dx); 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 Start: 08-07-2021 (Post-Op) Post-Op Miguel Dallas II [facility] Start: 08-07-2021 End: 08-07-2021 ambulatory Miguel Dallas II Other [email or web address] Other Start: 08-07-2021 End: 08-07-2021 Patient encounter procedure Jennifer Joens MD Work Phone: Ophthalmology Comment on above: S/P cataract extract ion and insertion of intraocular lens, left (Primary Dx); 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 [place] [facility] Work Phone: [facility] Start: 07-30-2021 End: 07-30-2021 ambulatory [facility] Work Phone: Pre Anesthesia Comment on above: Pre-op evaluation (P rimary Dx); Cataract of both eyes, unspecified cataract type; Other hyperlipidemia; Complex regional pain syndrome type 1, affecting unspecified site Start: 07-30-2021 End: 07-30-2021 Preprocedural examination done [facility] Work Phone: Pre Anesthesia Start: 07-23-2021 End: 07-23-2021 ambulatory Miguel Dallas II Other [email or web address] Other Start: 07-23-2021 Telephone encounter Miguel Dallas II [facility] Start: 07-21-2021 End: 07-21-2021 ambulatory Miguel Saw II Other [email or web address] Other Start: 07-21-2021 Telephone encounter Miguel Dallas II [facility] Start: 07-21-2021 End: 07-21-2021 Admission to same day surgery center MD Oumar Gunter [facility] Start: 07-11-2021 (Prolonged) Prolonge d Services Miguel Saw II [facility] Start: 07-11-2021 End: 07-11-2021 ambulatory Miguel Dallas II Other [email or web address] Other Start: 07-10-2021 End: 07-10-2021 ambulatory Miguel Dallas II Other [email or web address] Other Start: 07-10-2021 Telephone encounter Miguel Dallas II [facility] Start: 07-04-2021 End: 07-04-2021 ambulatory Miguel Saw II Other [email or web address] Other Start: 07-04-2021 Encounter for other preprocedural examination Miguel Saw II [facility] Start: 07-04-2021 Patient encounter procedure Miguel Schultz II [facility] Start: 05-28-2021 End: 05-28-2021 ambulatory Miguel Schultz II Other [email or web address] Other Start: 05-28-2021 Encounter for other preprocedural examination Miguel Rodríguezervin RUFFIN [facility] Start: 05-28-2021 Office outpatient vi sit [address] [facility] Start: 04-28-2021 End: 04-29-[address] OUMAR GUNTER Facility:[facility] Start: 04-03-2021 End: 04-03-[address] OUMAR GUNTER Facility:[facility] Start: 04-01-2021 End: 04-02-[address] OUMAR GUNTER Facility: Start: 02-04-2021 End: 02-05-2021 ambulatory CHRISTIAN Sweetie MEAGAN Facility: Medical Equipment Procedure Code Equipment Code Equipment Origin al Text Equipment Identifier Dates Arthroplasty, knee, total, minimally invasive Orthopaedic cement, non-medicated [id number] FDA Start: 07-21-2021 Arthroplasty, knee, total, minimally invasive Uncoated knee femur prosthesis [id number] FDA Start: 07-21-2021 Arthroplasty, knee, total, minimally invasive Tibial insert [id number] FDA Start: 07-21-2021 Arthroplasty, knee, total, minimally invasive Polyethylene patella prosthesis ()[id number] FDA Start: 07-21-2021 Arthroplasty, knee, total, minimally invasive Knee stem ()[id number] FDA Start: 07-21-2021 Arthroplasty, knee, total, minimally invasive Uncoated knee tibia prosthesis, metallic ()[id number] FDA Start: 07-21-2021 Genrtr Nrstm Pls Imp Chrg Kt - [id number] Start: 01-18-2014 Shs-Wq-A-Kind Implant - [id number] Start: 11-30-2013 Comment on above: Description: LINEAR ST 70CM 8 CONTACT LEAD KIT Cns-Bg-K-Kind Implant - [id number] Start: 01-18-2014 Comment on above: Description: CLIK AN CHOR Kit Stim 50cm Li n 8 Cntct Ld - [id number] Start: 01-18-2014 Lens Iol 0d +13 Tony Uv Abs - [id number] Start: 08-06-2021 Comment on above: Description: -0.39 Lens Iol 0d +13 Tony Uv Abs - [id number] Start: 08-20-2021 Comment on above: Description: -0.48 Goals Date Patient Goal Desired Activity /State Immunizations Immunization Date Immunization Notes Care Provider Fa [facility] 01-20-2023 influenza, high dose seasonal, preservative-free Oumar Gunter Other [facility] [employer] Other 01-20-2023 influenza virus vaccine, unspecified formulation MD Oumar Gunter Work Phone: [facility] 01-09-2022 influenza virus vaccine, split virus (incl. purified surface antigen) Oumar Gunter Other [facility] [employer] Other 01-09-2022 influenza virus vaccine, unspecified formulation MD Oumra Gunter Work Phone: [facility] 02-11-2021 COVID-19 mRNA, Comirnaty (Pfizer) MD Oumar Gunter Work Phone: [facility] 01-09-2021 influenza virus vaccine, split virus (incl. purified surface antigen) Oumar Gunter Other [facility] [employer] Other 01-09-2021 influenza virus vaccine, unspecified formulation MD Oumar Gunter Work Phone: [facility] 05-30-2020 COVID-19 mRNADaisyirelaina (Pfizer) MD Oumar Gunter Work Phone: [facility] 05-09-2020 COVID-19 mRNA Comirelaina (Pfizer) MD Oumar Gunter Work Phone: [facility] 12-14-2019 influenza virus vaccine, split virus (incl. purified surface antigen) Oumar Gunter Other [employer] [facility] [employer] Other 12-14-2019 influenza virus vaccine, unspecified formulation MD Oumar Gunter Work Phone: [facility] 01-12-2019 influenza virus vaccine, split virus (incl. purified surface antigen) Oumar Gunter Other [email or web address] Other 01-12-2019 influenza virus vaccine, unspecified formulation MD Oumar Gunter Work Phone: [facility] 12-25-2009 zoster vaccine, live Eye Susan surements Work Phone: [facility] Medications Current Medications Medication Drug Class(es) Dates Sig (Normalized) Sig (Original) aspirin 81 mg delayed release oral tablet (20 sources) Platelet Aggregation Inhibitor, Nonsteroidal Anti-inflammatory Drug Start: 07-04-2021 take 1 tablet by mouth twice daily Aspirin 81 MG 1 tablet Orally BID for 35 days MED TO BED UPON DISCHARGE DOS 07/21/2021 Jun, Active Start: 02-27-2021 take 1 tablet by mariluz th every twenty-four hours Aspirin 81 MG 1 tablet Orally Once a day for 30 day(s) Feb, Active Start: 12-25-2010 take 1 tablet by mouth once da nelsy Aspirin (Aspirin Low Dose) 81 mg Tablet,Delayed Release (Dr/Ec) Active 81 MG PO Daily July 07, 2021 12:00am Comment on above: Take 1 tablet by mariluz th once daily. benoxinate hydrochloride 4 mg/ml / fluorescein sodium 2.5 mg/ml ophthalmic solution (1 source) Diagnostic Dye Start: 08-08-19 End: 08-08-19 22 fluorescein-benoxi liang 0.25-0.4 % 1 Drop (FLURESS) cefadroxil 500 mg oral capsule (6 sources) Cephalosporin Antibacterial Start: 07-05-19 take 1 capsule by mouth every twelve hours Cefadroxil 500 MG 1 tablet Orally every 12 hrs for 7 days MED TO BED UPON DISCHARGE DOS 07/21/2021 Jun, Active cholecalciferol 0.025 mg oral tablet (20 sources) Vitamin D Start: 07-11-19 take 1 tablet by mouth every twenty-four hours Vitamin D 25 MCG (1000 UT) 1 tablet Orally Once a day for 56 day(s) Jun, Active Start: 07-07-2021 take 1 tablet by mariluz once daily Cholecalciferol (Vitamin D3) (Vitamin D3) 25 mcg (1,000 unit) Tablet Active 25 MCG PO Daily July 07, 2021 12:00am Start: 02-27-2021 Vitamin D3 250 MCG (99270 UT) as directed Orally Feb, Active Start: 02-27-2021 Vitamin D3 250 MCG (63385 UT) as directed Orally Feb, Active Comment on above: Take 1,000 Units by mouth once daily. docusate sodium 50 mg / sennosides, jail 8.6 mg oral tablet (6 sources) Start: 2 take 2 tablets by mouth every twenty-four hours Senokot S 8.6-50 MG 2 tablets Orally Once a day for 30 day(s) MED TO BED UPON DISCHARGE DOS 07/21/2021 Jun, Active DULoxetine 60 mg delayed release oral capsule (20 sources) Serotonin and Norepinephrine Reuptake Inhibitor Start: 6 End: 2 take 60 mg by mouth once daily in the morning Duloxetine Active 60 MG PO Every morning July 07, 2021 12:00am Start: 05-21-2015 End: 07-30-2021 take 30 mg by mouth once daily at bedtime Duloxetine Active 30 MG PO Daily at bedtime July 07, 2021 12:00am Comment on above: Take 1 capsule by mo [facility] once daily. TAKE ONE CAPSULE MICHELLE RY MORNING 1 capsule every morn ing. 1 capsule daily at b edtime. gabapentin 600 mg oral tablet (20 sources) Anti-epileptic Agent Start: 07-07-2021 take 600 mg by mouth three times daily Gabapentin Active 600 MG PO Three times daily July 07, 2021 12:00am Start: 05-14-2021 gabapentin (NE URONTIN) 600 mg tablet take [address] [facility] every twenty-four hours Gabapentin 400 MG 1 tablet Orally Once a day for 7 days Active Healthy Eyes - (20 sources) Healthy Eyes - a s directed Orally Active Iron (5 sources) Start: 2 take 1 tablet by mouth three times daily Iron (Ferrous Sulfate) 325 (65 Fe) MG 1 tablet Orally TID for 28 days Jun, Active ketorolac tromethamine 5 mg/ml ophthalmic solution (3 sources) Nonsteroidal Anti-inflammatory Drug, Cyclooxygenase Inhibitor Start: 2 keTORolac (ACULAR) 0.5 % ophthalmic solution USE DIRECTED BY PHYSICIAN, IN OPERATIVE EYE, BEGINNING ONE DAY AFTER SURGERY 5 mL 0 08/20/2021 Active Start: 08-05-2021 keTORolac (ACU LAR) 0.5 % ophthalmic solution USE DIRECTED BY PHYSICIAN, IN OPERATIVE EYE, BEGINNING ONE DAY AFTER SURGERY 5 mL 0 08/05/2021 Active Comment on above: USE DIRECTED BY Bear CRUZ, IN OPERATIVE EYE, BEGINNING ONE DAY AFTER SURGERY levoFLOXacin 500 mg oral tablet (1 source) Quinolone Antimicrobial Start: 4 take 500 mg by mouth once daily Levofloxacin Active 500 MG PO Daily June 02, 2023 1:00am lisinopril 5 mg oral tablet (9 sources) Angiotensin Converting Enzyme Inhibitor Start: 4 take 5 mg by mouth once daily Lisinopril Active 5 MG PO Daily June 01, 2023 1:00am Start: 01-21-2023 take 1 tablet by [facility] every twenty-four hours Lisinopril 5 MG 1 tablet Orally Once a day for 30 day(s) Dec, Active methylPREDNISolone 4 mg oral tablet (1 source) Corticosteroid Start: 09-04-2021 Medrol 4 MG as directed Orally Once a day for 5 days Aug, Active 24 hr mirabegron 50 mg extended release oral tablet (19 sources) beta3-Adrenergic Agonist Start: 06-01-2023 take 1 tablet by mouth once daily Mirabegron (Myrbetriq) 50 mg tablet extended release 24 hr Active 50 MG PO Daily June 01, 2023 1:00am Start: 07-07-2021 take 50 mg by mouth once daily MYRBETRIQ 50 mg Tb24 Take 50 mg by mouth once daily. 0 07/07/2021 Active Comment on above: Take 50 mg by mouth once daily. morphine sulfate 15 mg extended release oral tablet (6 sources) Opioid Agonist Start: 2 take 1 tablet by mouth every twelve hours for pain Morphine Sulfate ER 15 MG 1 tablet for breakthrough pain only Orally every 12 hrs for 5 days MED TO BED UPON DISCHARGE DOS 07/21/2021 Jun, Active Multivitamin preparation (14 sources) take 1 tablet by mouth once daily Multi Vitamin - 1 tablet Orally Once a day Active Mv,Ca,Min-Folic Acid-Vit K1 (One-A-Day Women's 50 Plus) 400-20 mcg Tablet (5 sources) Start: 2 take 50-400 tablets by mouth once daily Mv,Ca,Min-Folic Acid-Vit K1 (One-A-Day Women's 50 Plus) 400-20 mcg Tablet Active 1 TAB PO Daily July 06, 2021 11:00pm Start: 07-07-2021 take 50-400 tablets by mouth once daily Mv,Ca,Min-Folic Acid-Vit K1 (One-A-Day Women's 50 Plus) 400-20 mcg Tablet Active 1 TAB PO Daily July 07, 2021 12:00am Myrbetrig 25mg (8 sources) Start: 02-27-2021 take 1 tablet by mouth once daily Myrbetrig 25mg 1 Tablet Orally Once a day Feb, Active naproxen 500 mg oral tablet (20 sources) Nonsteroidal Anti-inflammatory Drug Start: 04-30-2021 take 500 mg by mouth once daily Naproxen Active 500 MG PO every day at noon July 07, 2021 12:00am Start: 02-27-2021 take 1 tablet by mariluz th every twelve hours at mealtime as needed Naproxen 500 MG 1 tablet with food or milk as needed Orally every 12 hrs Feb, Active Comment on above: Take 500 mg by mouth once daily. Tiotropium-Olodaterol (1 source) Anticholinergic, beta2-Adrenergic Agonist Start: 4 Tiotropium-Olodatero l (Stiolto Respimat) 2.5-2.5 mcg/actuation mist Active INHALATION June 01, 2023 1:00am ondansetron 8 mg oral tablet (6 sources) Serotonin-3 Receptor Antagonist Start: 2 take 1 tablet by mouth three times daily as needed for nausea Ondansetron HCl 8 MG 1 tablet as needed for nausea Orally TID for 10 days MED TO BED UPON DISCHARGE DOS 07/21/2021 Jun, Active oxyCODONE hydrochloride 15 mg oral tablet (20 sources) Opioid Agonist Start: End: 4 take 15 mg by mouth every eight hours Oxycodone Active 15 MG PO Every 8 hours May 31, 2023 Start: 05-04-2023 take 1 tablet by mariluz th every eight hours oxyCODONE HCl 15 MG 1 tablet Orally q8h for 30 days Apr, Active Start: 03-03-2023 take 1 tablet by mariluz th every eight hours oxyCODONE HCl 15 MG 1 tablet Orally q8h for 30 days Feb, Active Start: 02-02-2023 take 1 tablet by mariluz th every eight hours oxyCODONE HCl 15 MG 1 tablet Orally q8h for 30 days Jan, Active Start: 01-01-2023 oxyCODONE HCl 15 MG 1 tablet Orally 1 tablet in the afternoon, 2 tablets at night for 30 days Dec, Active Start: 10-01-2022 oxyCODONE HCl 15 MG 1 tablet Orally 1 tablet in the afternoon, 2 tablets at night for 30 days Sep, Active Start: 09-03-2022 oxyCODONE HCl 15 MG 1 tablet Orally 1 tablet in the afternoon, 2 tablets at night for 30 days Aug, Active Start: 07-06-2022 oxyCODONE HCl 15 MG 1 tablet Orally 1 tablet in the afternoon, 2 tablets at night for 30 days Jun, Active Start: 07-07-2021 End: 06-01-2023 take 15 mg by mouth twice daily Oxycodone Discontinued 15 MG PO Twice daily July 07, 2021 12:00am June 01, 2023 1:21pm Start: 07-07-2021 End: 06-01-2023 take 7.5 mg by mouth once daily Oxycodone Discontinued 7.5 MG PO Daily July 07, 2021 12:00am June 01, 2023 1:21pm Start: 07-04-2021 take 1 tablet by mariluz every four hours as needed for pain oxyCODONE HCl 5 MG 1 tablet as needed for pain Orally every 4 hrs for 7 days MED TO BED UPON DISCHARGE DOS 07/21/2021 Jun, Active Start: 07-11-2017 take 1 tablet by mariluz every six hours oxyCODONE HCl 15 MG 1 tablet Orally every 6 hrs Feb, Active polyethylene glycol 3350 68155 mg powder for oral solution (6 sources) Osmotic Laxative Start: 07-04-2021 MiraLax 17 GM 1 packet mixed with 8 ounces of fluid Orally Once a day for 7 days MED TO BED UPON DISCHARGE DOS 07/21/2021 Jun, Active pravastatin sodium 10 mg oral tablet (20 sources) HMG-CoA Reductase Inhibitor Start: 12-25-2010 take 10 mg by mouth once daily at bedtime Pravastatin Active 10 MG PO Daily at bedtime July 07, 2021 12:00am Comment on above: Take 1 tablet by mariluz once daily. prednisoLONE acetate 10 mg/ml ophthalmic suspension (3 sources) Corticosteroid Start: 08-20-2021 prednisoLONE acetate (PRED FORTE, ECONOPRED PLUS) 1 % ophthalmic suspension USE DIRECTED BY PHYSICIAN, IN OPERATIVE EYE, BEGINNING ONE DAY AFTER SURGERY 5 mL 0 08/20/2021 Active Start: 08-05-2021 prednisoLONE a cetate (PRED FORTE, ECONOPRED PLUS) 1 % ophthalmic suspension USE DIRECTED BY PHYSICIAN, IN OPERATIVE EYE, BEGINNING ONE DAY AFTER SURGERY 5 mL 0 08/05/2021 Active Comment on above: USE DIRECTED BY Bear CRUZ, IN OPERATIVE EYE, BEGINNING ONE DAY AFTER SURGERY predniSONE 20 mg oral tablet (1 source) Start: 06-02-2023 take 20 mg by mouth twice daily Prednisone Active 20 MG PO Twice daily June 02, 2023 1:00am Vit A,C And I-Owxsqo-Ptbpncui (Healthy Eyes) 300 mcg-200 mg-27 mg-2 mg Tablet (5 sources) Start: 07-07-2021 take 1 tablet by mouth once daily Vit A,C And U-Vjrxyp-Rdchdvmy (Healthy Eyes) 300 mcg-200 mg-27 mg-2 mg Tablet Active 1 TAB PO Daily July 06, 2021 11:00pm Start: 07-07-2021 take 1 tablet by mariluz th once daily Vit A,C And F-Zdpcix-Rkauphma (Healthy Eyes) 300 mcg-200 mg-27 mg-2 mg Tablet Active 1 TAB PO Daily July 07, 2021 12:00am Vitamin D 25 MCG (1000 UT) (20 sources) Start: 07-10-2021 take 1 tablet by mouth once daily Vitamin D 25 MCG (1000 UT) 1 tablet Orally Once a day for 56 day(s) Jun, Active Vitamin D3 250 MCG (38908 UT) (19 sources) Start: 02-27-2021 Vitamin D3 250 MCG (45145 UT) as directed Orally Feb, Active Completed/Discontinued Medications Medication Drug Class(es) Dates Sig (Normalized) Sig (Original) acetaminophen 500 mg oral tablet (15 sources) Start: 07-07-2021 End: 05-31-2023 take 2 tablets by mouth three times daily Acetaminophen (Acetaminophen Extra Strength) 500 mg Tablet Discontinued 1000 MG PO Three times daily July 07, 2021 12:00am May 31, 2023 4:18pm Start: 07-04-2021 take 2 tablets by mo ut every eight hours for pain acetaminophen (TYLENOL) 500 mg tablet TAKE TWO TABLETS BY MOUTH EVERY 8 HOURS FOR PAIN 0 07/16/2021 Active Comment on above: TAKE TWO TABLETS BY MOUTH EVERY 8 HOURS FOR PAIN calcium carbonate 1250 mg / cholecalciferol 100 unt / vitamin k1 0.04 mg chewable tablet (5 sources) Vitamin D, Warfarin Reversal Agent, Vitamin K Start: End: take 2 tablets by mouth once daily Calcium-Vitamin D3-Vitamin K (Viactiv) 500-100-40 mg-unit-mcg Tablet,Chewable Discontinued 2 TAB PO Daily July 07, 2021 12:00am June 01, 2023 1:19pm celecoxib 200 mg oral capsule (10 sources) Nonsteroidal Anti-inflammatory Drug Start: take 1 capsule by mouth twice daily at mealtime celecoxib (CELEBREX) 200 mg capsule Take 200 mg by mouth twice daily with meals. 0 07/16/2021 Active Comment on above: Take 200 mg by mouth twice daily with meals. diphenhydrAMINE hydrochloride 25 mg oral tablet (5 sources) Histamine-1 Receptor Antagonist Start: End: take 1 tablet by mouth once daily at bedtime Diphenhydramine Hcl (Sleep Aid (Diphenhydramine)) 25 mg Tablet Discontinued 25 MG PO Daily at bedtime July 07, 2021 12:00am June 01, 2023 1:20pm ferrous sulfate 325 mg oral tablet (4 sources) Start: take 1 tablet by mouth three times daily ferrous sulfate 325 mg (65 mg iron) tablet TAKE 1 TABLET BY MOUTH 3 TIMES A DAY FOR 28 DAYS 0 07/10/2021 Active Comment on above: TAKE 1 TABLET BY MARILUZ TH 3 TIMES A DAY FOR 28 DAYS meloxicam 15 mg oral tablet (20 sources) Nonsteroidal Anti-inflammatory Drug Start: End: take 1 tablet by mouth every twenty-four hours Meloxicam 15 MG 1 tablet Orally Once a day for 30 day(s) Feb, Not-Taking/PRN Comment on above: TAKE 1 TABLET BY MARILUZ EVERY DAY FOR 30 DAYS 24 hr oxybutynin chloride 10 mg extended release oral tablet (1 source) Cholinergic Muscarinic Antagonist Start: End: oxybutynin ER (DITROPAN XL) 10 mg 24 hr tablet 12 hr tapentadol 50 mg extended release oral tablet (1 source) Opioid Agonist Start: End: tapentadol (NUCYNTA ER) 50 mg Tb12 Take one tablet twice a day for pain 60 tablet 0 06/19/2015 07/30/2021 Discontinued (Course of therapy completed) Comment on above: Take one tablet twic e a day for pain traMADol hydrochloride 50 mg oral tablet (10 sources) Opioid Agonist Start: take 1 tablet by mouth every six hours as needed traMADol (ULTRAM) 50 mg tablet Take 50 mg by mouth every 6 hours as needed. 0 07/16/2021 Active Comment on above: Take 50 mg by mouth every 6 hours as needed. Triamcinolone (20 sources) Corticosteroid Start: Kenalog -40 mg Feb, 120 mg zolpidem tartrate 10 mg oral tablet (1 source) gamma-Aminobutyric Acid-ergic Agonist Start: 015 End: 022 zolpidem (AMBIEN) 10 mg tab Take 1 tablet at bedtime. 0 09/04/2014 07/30/2021 Discontinued (Course of therapy completed) Comment on above: Take 1 tablet at bed time. Payers Date Payer Category Payer Medicare [employer] MEDICARE [employer] MEDICARE PPO [id number] 2021-Present [id number] [place] [address] PPO [id number] 1959 Medicare [id number] 1959 Self-pay [id number] 1945 Unknown [id number] 1945 Unknown [id number] 1945 Unknown [id number] 1945 Unknown [id number] 1945 Unknown [id number] 1945 Unknown [id number] 1945 Unknown [id number] Unknown [id number] Unknown [id number] Unknown [id number] Unknown [id number] Plan of Treatment Date Care Activity Detail Author Start: 06-02-2023 Patient referral [facility] Work Phone: Start: 03-02-2023 Radionuclide myocard ial perfusion stress study NM priscila perf SPECT rest & str [facility] Start: 11-27-2021 Influenza vaccination INFLUENZ A (Season Ended) [facility] Start: 07-21-2021 End: 07-21-2021 [facility] Work Phone: Start: 06-11-2021 COVID-19 VACCINE (4 - Booster for Pfizer series) COVID-19 VACCINE (4 - Booster for Pfizer series) [facility] Start: 03-29-2021 ADVANCE DIRECTIVE DISCUSSION ADVANCE DIRECTIVE DISCUSSION [facility] Start: 01-10-2017 DIABETES SCREEN DIABETES SCREEN [facility] Start: 07-01-2016 Adult depression screening assessment DEPRESSION SCREENING [facility] Start: 2010 BONE DENSITY BONE DENSITY [facility] Start: 2010 PNEUMOVAX AGE 65 AND OVER WITH 5YR LOOKBACK (#1) PNEUMOVAX AGE 65 AND OVER WITH 5YR LOOKBACK (#1) [facility] Start: 02-19-2010 SHINGRIX VACCINE (2 of 3) ESPANA GRIX VACCINE (2 of 3) [facility] Start: 1964 Urine microalbumin profile DTAP,TDAP,TD (1 - Tdap) [facility] Start: 1963 ANNUAL PCP TEAM CLINICAL ENGINEER FROILAN DISEASE VISIT ANNUAL PCP TEAM CHRONIC DISEASE VISIT [facility] Start: 1963 HEPATITIS C SCREENING HEPATITIS C SC LAUREN [facility] Start: 1951 PNEUMOCOCCAL: 65+ (1 - PCV) PNEUMOCOCCAL: 65+ (1 - PCV) [facility] Patient referral [facility] Work Phone: [facility] Problems Active Problems Problem Classification Problem Date Documented Date Episodic/Chronic Acute and unspecified renal failure (2 sources) Acute renal failure syndrome; Translations: [Acute kidney failure, unspecified] 06-02-2023 Episodic Cancer of breast (4 sources) Malignant tumor of breast ; Translations: [Malignant neoplasm of unspecified site of unspecified female breast] Onset: 07-30-2021 07-30-2021 Chronic Cardiac and circulatory congenital anomalies (1 source) 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; 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] 05-31-2023 Chronic Cataract (2 sources) Bilateral senile combined form cataracts of eyes; Translations: [Combined forms of age-related cataract, bilateral] Chronic Chronic obstructive pulmonary disease and bronchiectasis (5 sources) Moderate chronic obstructive pulmonary disease; Translations: [Chronic obstructive pulmonary disease, unspecified] Chronic Congestive heart failure; nonhypertensive (4 sources) Congestive heart failure; Translations: [Heart failure, unspecified] Onset: 07-30-2021 07-30-2021 Chronic Deficiency and other anemia (1 source) Anemia of chronic disease; Translations: [Anemia in other chronic diseases classified elsewhere] 06-02-2023 Chronic Deficiency and other anemia (1 source) Anemia in other chronic diseases classified elsewhere; Translations: [Anemia of other chronic disease] 06-02-2023 Chronic Disorders of lipid metabolism (6 sources) Hyperlipidemia; Translations: [Other hyperlipidemia] Onset: 07-30-2021 07-30-2021 Chronic Mycoses (2 sources) Histoplasmosis syndrome of left eye; Translations: [Histoplasmosis, unspecified] Episodic Osteoarthritis (20 sources) Osteoarthritis of left knee joint; Translations: [Unilateral primary osteoarthritis, left knee] Onset: 05-28-2021 Resolved: 09-18-2021 Chronic Osteoporosis (20 sources) Primary osteoporosis; Translations: [Age-related osteoporosis without current pathological fracture] Onset: 05-28-2021 Resolved: 07-10-2021 Chronic Other aftercare (20 sources) Patient encounter status; Translations: [Aftercare following joint replacement surgery] Chronic Other aftercare (4 sources) Aftercare following joint replacement surgery Onset: 08-07-2021 Resolved: 09-18-2021 Chronic Other and unspecified benign neoplasm (17 sources) History of polyp of colon; Translations: [History of colon polyps] Episodic Other connective tissue disease (20 sources) Artificial knee joint present; Translations: [Presence of left artificial knee joint] 05-31-2023 Chronic Other connective tissue disease (4 sources) Presence of left artificial knee joint Onset: 08-07-2021 Resolved: 09-18-2021 Chronic Other connective tissue disease (1 source) Neuralgia and neuritis, unspecified Episodic Other diseases of bladder and urethra (15 sources) Overactive bladder; Translations: [Overactive bladder] 05-31-2023 Chronic Other diseases of bladder and urethra (1 source) Overactive bladder Chronic Other eye disorders (2 sources) H/O: L cataract extraction; Translations: [Cataract extraction status, left eye] Episodic Other lower respiratory disease (8 sources) Dyspnea; Translations: [Shortness of breath] 05-31-2023 Episodic Other lower respiratory disease (2 sources) Shortness of breath Episodic Other nervous system disorders (5 sources) Complex regional pain syndrome type I; Translations: [Complex regional pain syndrome I, unspecified] Onset: 07-06-2013 07-06-2013 Chronic Other nervous system disorders (11 sources) Expressive dysphasia; Translations: [Aphasia] 05-31-2023 Chronic Other nervous system disorders (9 sources) Peripheral neuropathic pain; Translations: [Unspecified mononeuropathy of bilateral lower limbs] 05-31-2023 Chronic Other nervous system disorders (4 sources) Unspecified mononeuropathy of bilateral lower limbs Chronic Other nervous system disorders (1 source) Metabolic encephalopathy; Translations: [Metabolic encephalopathy] 06-02-2023 Chronic Other nervous system disorders (1 source) Metabolic encephalopathy; Translations: [Metabolic encephalopathy] 06-02-2023 Chronic Other nervous system disorders (1 source) Other speech disturbances Episodic Other nutritional; endocrine; and metabolic disorders (2 sources) Body mass index 30+ - obesity; Translations: [Obesity, unspecified] Onset: 08-06-2021 08-06-2021 Chronic Other skin disorders (8 sources) Excessive sweating; Translations: [Generalized hyperhidrosis] 05-31-2023 Episodic Pneumonia (except that caused by tuberculosis or sexually transmitted disease) (2 sources) Pneumonia; Translations: [Pneumonia, unspecified organism] 06-02-2023 Episodic Pulmonary heart disease (13 sources) Pulmonary hypertension; Translations: [Pulmonary hypertension, unspecified] Chronic Retinal detachments; defects; vascular occlusion; and retinopathy (1 source) Degenerative disorder of macula ; Translations: [Unspecified macular degeneration] 05-31-2023 Chronic Septicemia (except in labor) (2 sources) Sepsis; Translations: [Sepsis, unspecified organism] 06-02-2023 Episodic Spondylosis; intervertebral disc disorders; other back problems (5 sources) Pain in thoracic spine; Translations: [Chronic thoracic back pain] Episodic Unclassified (2 sources) CONTACT W/AND (SUSP) EXPOS COVID-19; Translations: [CONTACT W/AND (SUSP) EXPOS COVID-19] Onset: 04-09-2021 Unclassified (1 source) Pulmonary hypertension, unspecified; Translations: [Pulmonary hypertension, unspecified] Onset: 03-03-2023 Unclassified (1 source) Unilateral primary osteoarthritis, left knee; Translations: [Unilateral primary osteoarthritis, left knee] Onset: 07-02-2022 Viral infection (1 source) COVID-19; Translations: [COVID-19] Onset: 04-09-2021 Past or Other Problems Problem Classification Problem Date Documented Da te Episodic/Chronic Diabetes mellitus without complication (1 source) Impaired fasting glucose; Translations: [IMPAIRED FASTING GLUCOSE] Onset: 04-06-2021 Episodic Other aftercare (2 sources) Other intermediate designer (current) drug therapy; Translations: [OTH GOSPEL WORKER CURRENT DRUG THERAPY] Onset: 05-28-2021 Resolved: 05-28-2021 Episodic Other circulatory disease (4 sources) Other specified symptoms and signs involving the circulatory and respiratory systems; Translations: [OTH SPEC SX SIGNS INVLV CIRC RS] Onset: 04-28-2021 Episodic Other connective tissue disease (4 sources) Neuropathic pain; Translations: [Neuralgia and neuritis, unspecified] Onset: 03-15-2012 03-15-2012 Episodic Other lower respiratory disease (4 sources) Dyspnea, unspecified; Translations: [DYSPNEA UNSPECIFIED] Onset: 10-17-2021 Episodic Other lower respiratory disease (1 source) Shortness of breath; Translations: [Shortness of breath] Onset: 03-02-2023 Episodic Other nervous system disorders (4 sources) Burning sensation; Translations: [Other disturbances of skin sensation] Onset: 12-25-2010 12-25-2010 Episodic Other non-traumatic joint disorders (4 sources) Pain in left knee; Translations: [PAIN IN LEFT KNEE] Onset: 02-04-2021 Episodic Other skin disorders (7 sources) Generalized hyperhidrosis; Translations: [GENERALIZED HYPERHIDROSIS] Onset: 04-01-2021 Episodic Unclassified (1 source) CONTACT W/AND (SUSP) EXPOS COVID-19; Translations: [CONTACT W/AND (SUSP) EXPOS COVID-19] Onset: 04-03-2021 Procedures Date Procedure Procedure Detail Performing Clinician Start: 05-27-2023 Bacteria identified in Sputum by Respiratory culture MD Oumar Gunter Work Phone: Start: 05-27-2023 Microscopic observat ion [Identifier] in Unspecified specimen by Gram stain MD Oumar Gunter Work Phone: Start: 05-25-2023 Blood Culture 1 MD Pancho Gunter Work Phone: Start: 05-25-2023 Blood Culture 2 MD Pancho Gunter Work Phone: Start: 07-02-2022 X-ray of left knee MD Love Gunter Work Phone: Start: 10-16-2021 Plain X-ray of left femur MD Oumar Gunter Work Phone: Start: 10-16-2021 Plain X-ray of left tibia and left fibula MD Oumar Gunter Work Phone: Start: 10-16-2021 X-ray of left knee MD Love Gunter Work Phone: Start: 09-04-2021 X-ray of left knee MD Love Gunter Work Phone: Start: 07-30-2021 IOL BIOMETRY W/ IOL CALC OU (BOTH EYES) Jennifer Jones MD Work Phone: Start: 07-21-2021 X-ray of left knee MD Love Gunter Work Phone: Start: 07-21-2021 Total replacement of left knee joint MD Oumar Gunter Work Phone: Start: 07-02-2015 Adult depression screening assessment [facility] Work Phone: Results Test Name Value Interpretation Reference Range Facility Albumin [Mass/volume] in Ser um or Plasmaon 06-15-2023 Albumin [Mass/Vol] 3.7 g/dL 2.9-4.4 [facility] Basophils Auto (Bld) [#/Vol] on 06-15-2023 Basophils (Bld) [#/Vol] 0.1 10 3/uL 0.0-0.1 [facility] Basophils/100 WBC Auto (Bld) on 06-15-2023 Basophils/100 WBC (Bld) 0.7 % 0.2-2.0 [facility] Eosinophils/100 WBC Auto (Bl d)on 06-15-2023 Eosinophils/100 WBC (Bld) 2.3 % 0.9-7.0 [facility] Erythrocyte distribution wid th Auto (RBC) [Ratio]on 06-15-2023 Erythrocyte distribution width (RBC) [Ratio] 13.1 % 11.0-15.0 [facility] Estimated glomerular filtrat ion rate (GFR) non- Americanon 06-15-2023 GFR/1.73 sq M.predicted among non-blacks MDRD (S/P/Bld) [Vol rate/Area] 40 mL/min/{1.73_m2} >=60 [facility] Globulin Calc (S) [Mass/Vol] on 06-15-2023 Globulin (S) [Mass/Vol] 3.7 g/dL [facility] Hematocrit Auto (Bld) [Volum e fraction]on 06-15-2023 Hematocrit (Bld) [Volume fraction] 39.7 % 36.0-48.0 [facility] Hemoglobin [Mass/volume] in Bloodon 06-15-2023 Hemoglobin (Bld) [Mass/Vol] 12.1 g/dL 12.0-16.0 [facility] IgA [Mass/volume] in Serum o r Plasmaon 06-15-2023 IgA [Mass/Vol] 195 mg/dL 64-422 [facility] IgG [Mass/volume] in Serum o r Plasmaon 06-15-2023 IgG [Mass/Vol] 865 mg/dL 586-1602 [facility] IgM [Mass/volume] in Serum o r Plasmaon 06-15-2023 IgM [Mass/Vol] 54 mg/dL 26-217 [facility] Iron binding capacity [Mass/ volume] in Serum or Plasmaon 06-15-2023 Iron binding capacity [Mass/Vol] 330.0 ug/dL 250.0-450.0 [facility] Iron saturation [Mass Fracti on] in Serum or Plasmaon 06-15-2023 Iron saturation [Mass fraction] 29.7 % [facility] Gerardo 06-15-2023 L Specimen: Received: 06/16/23 Status: QUINN [place] Num: [id number] Spec Type: Impression Subm Dr: Fidelina Escobar MD Tissues: PATHPER Procedures: PATHREVIEW Age/ Patient Sex Location Account Attending Physician Catherine Ayers 78/F LABELL [id number] Fidelina Escobar MD SPEC NUM: RECD: 06/16/23 STATUS: QUINN [place] NUM: [id number] ABDIAS: 06/15/[address]: Fidelina Escobar MD ENTERED: 06/16/[address] [facility] DR: SPEC TYPE: Impression DEPT: JOEL Sifuentes ENTERED BY: [id number] RECV BY: [id number] ORDERED: PATHREVIEW ORDERED: PATHREVIEW Pathologist Review Occasional immature lymphocytes are noted. Reactive vs. neoplastic. -------- -------- Specimen: Received: 06/16/23 Status: QUINN [place] Num: [id number] Spec Type: Impression Subm Dr: Fidelina Escobar MD Tissues: PATHPER Procedures: PATHREVIEW -------- Patient: Catherine Ayers [id number] (Continued) -------- Signed (signature on file) Fabio Silvestre MD 06/16/23 1553 Normal [facility] Laboratory - Chemistry and C hemistry - challengeon 06-15-2023 ALP [Catalytic activity/Vol] 85 U/L 46-116 [facility] ALT [Catalytic activity/Vol] 17 U/L 14-59 [facility] AST [Catalytic activity/Vol] 20 U/L 15-37 [facility] Bilirubin [Mass/Vol] 0.4 mg/dL 0.2-1.0 [facility] Calcium [Mass/Vol] 10.0 mg/dL 8.5-10.1 [facility] Chloride [Moles/Vol] 101 mmol/L 98-107 [facility] CO2 [Moles/Vol] 29.7 mmol/L 21.0-32.0 [facility] Creatinine [Mass/Vol] 1.29 mg/dL 0.55-1.02 [facility] Ferritin [Mass/Vol] 168.0 ng/mL 8.0-252.0 [facility] GFR/1.73 sq M.predicted MDRD (S/P/Bld) [Vol rate/Area] 48 mL/min/{1.73_m2} >=60 [facility] Glucose [Mass/Vol] 174 mg/dL 74-106 [facility] Iron [Mass/Vol] 98.0 ug/dL 50.0-170.0 [facility] LDH [Catalytic activity/Vol] 202 U/L 81-234 [facility] Potassium [Moles/Vol] 4.8 mmol/L 3.5-5.1 [facility] Protein [Mass/Vol] 7.4 g/dL 6.4-8.2 [facility] Sodium [Moles/Vol] 139 mmol/L 136-145 [facility] Urea nitrogen [Mass/Vol] 27.0 mg/dL 7.0-18.0 [facility] Urea nitrogen/Creatinine [Mass ratio] 20.9 mg/mg [facility] Laboratory - Hematology and Cell countson 06-15-2023 ESR (Bld) [Velocity] 52 mm/h <=30 [facility] Immature granulocytes/100 WBC (Bld) 0.4 % 0.0-0.5 [facility] Leukocytes [#/volume] correc clifford for nucleated erythrocytes in Blood by Automated counon 06-15-2023 WBC corrected for nucl RBC Auto (Bld) [#/Vol] 6.9 10 3/uL 4.0-11.0 [facility] Lymphocytes Auto (Bld) [#/Vo l]on 06-15-2023 Lymphocytes (Bld) [#/Vol] 1.7 10 3/uL 1.2-3.8 [facility] Lymphocytes/100 WBC Auto (Bl d)on 06-15-2023 Lymphocytes/100 WBC (Bld) 24.7 % 20.5-60.0 [facility] MCH Auto (RBC) [Entitic mass ]on 06-15-2023 MCH (RBC) [Entitic mass] 29.6 pg 26.7-34.0 [facility] MCHC Auto (RBC) [Mass/Vol]on 06-15-2023 MCHC (RBC) [Mass/Vol] 30.5 g/dL 29.9-35.2 [facility] MCV Auto (RBC) [Entitic vol] on 06-15-2023 MCV (RBC) [Entitic vol] 97.1 fL 81.0-99.0 [facility] Monocytes Auto (Bld) [#/Vol] on 06-15-2023 Monocytes (Bld) [#/Vol] 0.4 10 3/uL 0.3-0.8 [facility] Monocytes/100 WBC Auto (Bld) on 06-15-2023 Monocytes/100 WBC (Bld) 6.0 % 1.7-12.0 [facility] Neutrophils Auto (Bld) [#/Vo l]on 06-15-2023 Neutrophils (Bld) [#/Vol] 4.5 10 3/uL 1.4-6.5 [facility] Neutrophils/100 WBC Auto (Bl d)on 06-15-2023 Neutrophils/100 WBC (Bld) 65.9 % 43.0-75.0 [facility] No Panel Informationon 06-14 C-Reactive Protein, Quantitative <0.50 mg/dL <=0.50 [facility] Eosinophils # (Auto) 0.2 10 3/uL 0.0-0.7 [facility] Immature Granulocyte # (Auto) 0.03 10 3/uL 0.00-0.03 [facility] Protein Electrophoresis M-Jones Not Observed g/dL Not Observed [facility] Protein Electrophoresis Note Comment . [facility] Comment on above: Protein electrophore sis scan will follow via computer,mail, or roll carrier delivery.Performed at: [address] [id number] Director: Larry Nicolas PhD, Phone: [phone] Platelet mean volume Auto (B ld) [Entitic vol]on 06-15-2023 Platelet mean volume (Bld) [Entitic vol] 10.8 fL 9.5-13.5 [facility] Platelets Auto (Bld) [#/Vol] on 06-15-2023 Platelets (Bld) [#/Vol] 259 10 3/uL 150-450 [facility] Protein [Mass/volume] in Ser um or Plasmaon 06-15-2023 Protein [Mass/Vol] 6.9 g/dL 6.0-8.5 [facility] RBC Auto (Bld) [#/Vol]on RBC (Bld) [#/Vol] 4.09 10 6/uL 4.20-5.40 [facility] Reticulocytes/100 RBC Auto ( Bld)on 06-15-2023 Reticulocytes/100 RBC (Bld) 1.56 % 0.60-3.10 [facility] Serum globulin measurement ( mass/volume)on 06-15-2023 Globulin (S) [Mass/Vol] 3.2 g/dL 2.2-3.9 [facility] Serum or plasma albumin/glob ulin mass ratioon 06-15-2023 Albumin/Globulin [Mass ratio] 1.0 {ratio} [facility] Albumin/Globulin [Mass ratio] 1.2 {ratio} 0.7-1.7 [facility] Serum or plasma alpha 1 glob ulin measurement by electrophoresis (mass/volume)on 06-15-2023 Alpha 1 globulin Elph [Mass/Vol] 0.3 g/dL 0.0-0.4 [facility] Serum or plasma alpha 2 glob ulin measurement by electrophoresis (mass/volume)on 06-15-2023 Alpha 2 globulin Elph [Mass/Vol] 1.0 g/dL 0.4-1.0 [facility] Serum or plasma anion gap de terminationon 06-15-2023 Anion gap [Moles/Vol] 13.1 mmol[facility] Serum or plasma beta globuli n measurement by electrophoresis (mass/volume)on 06-15-2023 Beta globulin Elph [Mass/Vol] 1.2 g/dL 0.7-1.3 [facility] Serum or plasma gamma globul in measurement by electrophoresis (mass/volume)on 06-15-2023 Gamma globulin Elph [Mass/Vol] 0.7 g/dL 0.4-1.8 [facility] Serum or plasma immunoelectr ophoresis interpretationon 06-15-2023 Interpretation IEP [Interp] Comment . [facility] Comment on above: No monoclonality det ected. Basophils Auto (Bld) [#/Vol] on 05-29-2023 Basophils (Bld) [#/Vol] 0.2 10 3/uL 0.0-0.1 [facility] Basophils/100 WBC Auto (Bld) on 05-29-2023 Basophils/100 WBC (Bld) 0.7 % 0.2-2.0 [facility] Eosinophils/100 WBC Auto (Bl d)on 05-29-2023 Eosinophils/100 WBC (Bld) 0.5 % 0.9-7.0 [facility] Erythrocyte distribution wid th Auto (RBC) [Ratio]on 05-29-2023 Erythrocyte distribution width (RBC) [Ratio] 12.7 % 11.0-15.0 [facility] Estimated glomerular filtrat ion rate (GFR) non- Americanon 05-29-2023 GFR/1.73 sq M.predicted among non-blacks MDRD (S/P/Bld) [Vol rate/Area] 58 mL/min/{1.73_m2} >=60 [facility] Globulin Calc (S) [Mass/Vol] on 05-29-2023 Globulin (S) [Mass/Vol] 4.3 g/dL [facility] Hematocrit Auto (Bld) [Volum e fraction]on 05-29-2023 Hematocrit (Bld) [Volume fraction] 31.1 % 36.0-48.0 [facility] Hemoglobin [Mass/volume] in Bloodon 05-29-2023 Hemoglobin (Bld) [Mass/Vol] 9.9 g/dL 12.0-16.0 [facility] Laboratory - Chemistry and C hemistry - challengeon 05-29-2023 Albumin [Mass/Vol] 2.3 g/dL 3.4-5.0 [facility] ALP [Catalytic activity/Vol] 94 U/L 46-116 [facility] ALT [Catalytic activity/Vol] 46 U/L 14-59 [facility] AST [Catalytic activity/Vol] 37 U/L 15-37 [facility] Bilirubin [Mass/Vol] 0.3 mg/dL 0.2-1.0 [facility] Calcium [Mass/Vol] 9.3 mg/dL 8.5-10.1 [facility] Chloride [Moles/Vol] 108 mmol/L 98-107 [facility] CO2 [Moles/Vol] 26.5 mmol/L 21.0-32.0 [facility] Creatinine [Mass/Vol] 0.93 mg/dL 0.55-1.02 [facility] GFR/1.73 sq M.predicted MDRD (S/P/Bld) [Vol rate/Area] mL/min/{1.73_m2} >=60 [facility] Glucose [Mass/Vol] 109 mg/dL 74-106 [facility] Potassium [Moles/Vol] 4.1 mmol/L 3.5-5.1 [facility] Protein [Mass/Vol] 6.6 g/dL 6.4-8.2 [facility] Sodium [Moles/Vol] 144 mmol/L 136-145 [facility] Urea nitrogen [Mass/Vol] 13.0 mg/dL 7.0-18.0 [facility] Urea nitrogen/Creatinine [Mass ratio] 14.0 mg/mg [facility] Laboratory - Hematology and Cell countson 05-29-2023 Immature granulocytes/100 WBC (Bld) 11.2 % 0.0-0.5 [facility] Leukocytes [#/volume] correc clifford for nucleated erythrocytes in Blood by Automated counon 05-29-2023 WBC corrected for nucl RBC Auto (Bld) [#/Vol] 20.0 10 3/uL 4.0-11.0 [facility] Lymphocytes Auto (Bld) [#/Vo l]on 05-29-2023 Lymphocytes (Bld) [#/Vol] 2.7 10 3/uL 1.2-3.8 [facility] Lymphocytes/100 WBC Auto (Bl d)on 05-29-2023 Lymphocytes/100 WBC (Bld) 13.2 % 20.5-60.0 [facility] MCH Auto (RBC) [Entitic mass ]on 05-29-2023 MCH (RBC) [Entitic mass] 29.8 pg 26.7-34.0 [facility] MCHC Auto (RBC) [Mass/Vol]on 05-29-2023 MCHC (RBC) [Mass/Vol] 31.8 g/dL 29.9-35.2 [facility] MCV Auto (RBC) [Entitic vol] on 05-29-2023 MCV (RBC) [Entitic vol] 93.7 fL 81.0-99.0 [facility] Monocytes Auto (Bld) [#/Vol] on 05-29-2023 Monocytes (Bld) [#/Vol] 1.1 10 3/uL 0.3-0.8 [facility] Monocytes/100 WBC Auto (Bld) on 05-29-2023 Monocytes/100 WBC (Bld) 5.3 % 1.7-12.0 [facility] Neutrophils Auto (Bld) [#/Vo l]on 05-29-2023 Neutrophils (Bld) [#/Vol] 13.8 10 3/uL 1.4-6.5 [facility] Neutrophils/100 WBC Auto (Bl d)on 05-29-2023 Neutrophils/100 WBC (Bld) 69.1 % 43.0-75.0 [facility] No Panel Informationon 05-28 Eosinophils # (Auto) 0.1 10 3/uL 0.0-0.7 [facility] Immature Granulocyte # (Auto) 2.24 10 3/uL 0.00-0.03 [facility] Platelet mean volume Auto (B ld) [Entitic vol]on 05-29-2023 Platelet mean volume (Bld) [Entitic vol] 9.8 fL 9.5-13.5 [facility] Platelets Auto (Bld) [#/Vol] on 05-29-2023 Platelets (Bld) [#/Vol] 281 10 3/uL 150-450 [facility] RBC Auto (Bld) [#/Vol]on RBC (Bld) [#/Vol] 3.32 10 6/uL 4.20-5.40 [facility] Serum or plasma albumin/glob ulin mass ratioon 05-29-2023 Albumin/Globulin [Mass ratio] 0.5 {ratio} [facility] Serum or plasma anion gap de terminationon 05-29-2023 Anion gap [Moles/Vol] 13.6 mmol/L [facility] Serum procalcitonin measurem enton 05-29-2023 Procalcitonin [Mass/Vol] ng/mL 0.00-0.50 [facility] Basophils Auto (Bld) [#/Vol] on 05-28-2023 Basophils (Bld) [#/Vol] 0.1 10 3/uL 0.0-0.1 [facility] Basophils/100 WBC Auto (Bld) on 05-28-2023 Basophils/100 WBC (Bld) 0.6 % 0.2-2.0 [facility] Eosinophils/100 WBC Auto (Bl d)on 05-28-2023 Eosinophils/100 WBC (Bld) 0.4 % 0.9-7.0 [facility] Erythrocyte distribution wid th Auto (RBC) [Ratio]on 05-28-2023 Erythrocyte distribution width (RBC) [Ratio] 12.7 % 11.0-15.0 [facility] Estimated glomerular filtrat ion rate (GFR) non- Americanon 05-28-2023 GFR/1.73 sq M.predicted among non-blacks MDRD (S/P/Bld) [Vol rate/Area] 47 mL/min/{1.73_m2} >=60 [facility] Globulin Calc (S) [Mass/Vol] on 05-28-2023 Globulin (S) [Mass/Vol] 3.9 g/dL [facility] Hematocrit Auto (Bld) [Volum e fraction]on 05-28-2023 Hematocrit (Bld) [Volume fraction] 29.0 % 36.0-48.0 [facility] Hemoglobin [Mass/volume] in Bloodon 05-28-2023 Hemoglobin (Bld) [Mass/Vol] 9.1 g/dL 12.0-16.0 [facility] Laboratory - Chemistry and C hemistry - challengeon 05-28-2023 Albumin [Mass/Vol] 2.0 g/dL 3.4-5.0 [facility] ALP [Catalytic activity/Vol] 93 U/L 46-116 [facility] ALT [Catalytic activity/Vol] 46 U/L 14-59 [facility] AST [Catalytic activity/Vol] 49 U/L 15-37 [facility] Bilirubin [Mass/Vol] 0.3 mg/dL 0.2-1.0 [facility] Calcium [Mass/Vol] 8.7 mg/dL 8.5-10.1 [facility] Chloride [Moles/Vol] 111 mmol/L 98-107 [facility] CO2 [Moles/Vol] 25.0 mmol/L 21.0-32.0 [facility] Creatinine [Mass/Vol] 1.12 mg/dL 0.55-1.02 [facility] GFR/1.73 sq M.predicted MDRD (S/P/Bld) [Vol rate/Area] 57 mL/min/{1.73_m2} >=60 [facility] Glucose [Mass/Vol] 103 mg/dL 74-106 [facility] Potassium [Moles/Vol] 4.1 mmol/L 3.5-5.1 [facility] Protein [Mass/Vol] 5.9 g/dL 6.4-8.2 [facility] Sodium [Moles/Vol] 144 mmol/L 136-145 [facility] Urea nitrogen [Mass/Vol] 22.0 mg/dL 7.0-18.0 [facility] Urea nitrogen/Creatinine [Mass ratio] 19.6 mg/mg [facility] Laboratory - Hematology and Cell countson 05-28-2023 Immature granulocytes/100 WBC (Bld) 10.3 % 0.0-0.5 [facility] Leukocytes [#/volume] correc clifford for nucleated erythrocytes in Blood by Automated counon 05-28-2023 WBC corrected for nucl RBC Auto (Bld) [#/Vol] 17.1 10 3/uL 4.0-11.0 [facility] Lymphocytes Auto (Bld) [#/Vo l]on 05-28-2023 Lymphocytes (Bld) [#/Vol] 2.3 10 3/uL 1.2-3.8 [facility] Lymphocytes/100 WBC Auto (Bl d)on 05-28-2023 Lymphocytes/100 WBC (Bld) 13.5 % 20.5-60.0 [facility] MCH Auto (RBC) [Entitic mass ]on 05-28-2023 MCH (RBC) [Entitic mass] 30.1 pg 26.7-34.0 [facility] MCHC Auto (RBC) [Mass/Vol]on 05-28-2023 MCHC (RBC) [Mass/Vol] 31.4 g/dL 29.9-35.2 [facility] MCV Auto (RBC) [Entitic vol] on 05-28-2023 MCV (RBC) [Entitic vol] 96.0 fL 81.0-99.0 [facility] Monocytes Auto (Bld) [#/Vol] on 05-28-2023 Monocytes (Bld) [#/Vol] 1.0 10 3/uL 0.3-0.8 [facility] Monocytes/100 WBC Auto (Bld) on 05-28-2023 Monocytes/100 WBC (Bld) 6.0 % 1.7-12.0 [facility] Neutrophils Auto (Bld) [#/Vo l]on 05-28-2023 Neutrophils (Bld) [#/Vol] 11.9 10 3/uL 1.4-6.5 [facility] Neutrophils/100 WBC Auto (Bl d)on 05-28-2023 Neutrophils/100 WBC (Bld) 69.2 % 43.0-75.0 [facility] No Panel Informationon 05-27 Eosinophils # (Auto) 0.1 10 3/uL 0.0-0.7 [facility] Immature Granulocyte # (Auto) 1.76 10 3/uL 0.00-0.03 [facility] Platelet mean volume Auto (B ld) [Entitic vol]on 05-28-2023 Platelet mean volume (Bld) [Entitic vol] 9.6 fL 9.5-13.5 [facility] Platelets Auto (Bld) [#/Vol] on 05-28-2023 Platelets (Bld) [#/Vol] 242 10 3/uL 150-450 [facility] RBC Auto (Bld) [#/Vol]on RBC (Bld) [#/Vol] 3.02 10 6/uL 4.20-5.40 [facility] Serum or plasma albumin/glob ulin mass ratioon 05-28-2023 Albumin/Globulin [Mass ratio] 0.5 {ratio} [facility] Serum or plasma anion gap de terminationon 05-28-2023 Anion gap [Moles/Vol] 12.1 [facility] Serum procalcitonin measurem enton 05-28-2023 Procalcitonin [Mass/Vol] 0.06 ng/mL 0.00-0.50 [facility] Basophils/100 WBC Manual cnt (Bld)on 05-27-2023 Basophils/100 WBC (Bld) 0.0 % 0.2-2.0 [facility] Eosinophils/100 WBC Manual c nt (Bld)on 05-27-2023 Eosinophils/100 WBC (Bld) 0.0 % 0.9-7.0 [facility] Erythrocyte distribution wid th Auto (RBC) [Ratio]on 05-27-2023 Erythrocyte distribution width (RBC) [Ratio] 12.5 % 11.0-15.0 [facility] Estimated glomerular filtrat ion rate (GFR) non- Americanon 05-27-2023 GFR/1.73 sq M.predicted among non-blacks MDRD (S/P/Bld) [Vol rate/Area] 29 mL/min/{1.73_m2} >=60 [facility] Globulin Calc (S) [Mass/Vol] on 05-27-2023 Globulin (S) [Mass/Vol] 4.6 g/dL [facility] Hematocrit Auto (Bld) [Volum e fraction]on 05-27-2023 Hematocrit (Bld) [Volume fraction] 29.7 % 36.0-48.0 [facility] Hemoglobin [Mass/volume] in Bloodon 05-27-2023 Hemoglobin (Bld) [Mass/Vol] 9.4 g/dL 12.0-16.0 [facility] Laboratory - Chemistry and C hemistry - challengeon 05-27-2023 Albumin [Mass/Vol] 2.3 g/dL 3.4-5.0 [facility] ALP [Catalytic activity/Vol] 119 U/L 46-116 [facility] ALT [Catalytic activity/Vol] 43 U/L 14-59 [facility] AST [Catalytic activity/Vol] 57 U/L 15-37 [facility] Bilirubin [Mass/Vol] 0.2 mg/dL 0.2-1.0 [facility] Calcium [Mass/Vol] 9.1 mg/dL 8.5-10.1 [facility] Chloride [Moles/Vol] 111 mmol/L 98-107 [facility] CO2 [Moles/Vol] 18.8 mmol/L 21.0-32.0 [facility] Creatinine [Mass/Vol] 1.70 mg/dL 0.55-1.02 [facility] GFR/1.73 sq M.predicted MDRD (S/P/Bld) [Vol rate/Area] 35 mL/min/{1.73_m2} >=60 [facility] Glucose [Mass/Vol] 155 mg/dL 74-106 [facility] Lactate [Moles/Vol] 0.9 mmol/L 0.4-2.0 [facility] Potassium [Moles/Vol] 4.8 mmol/L 3.5-5.1 [facility] Protein [Mass/Vol] 6.9 g/dL 6.4-8.2 [facility] Sodium [Moles/Vol] 143 mmol/L 136-145 [facility] Urea nitrogen [Mass/Vol] 34.0 mg/dL 7.0-18.0 [facility] Urea nitrogen/Creatinine [Mass ratio] 20.0 mg/mg [facility] Laboratory - Hematology and Cell countson 05-27-2023 Band form neutrophils/100 WBC (Bld) 6.0 % 0-5 [facility] Lymphocytes/100 WBC (Bld) 12.0 % 20.5-60.0 [facility] Monocytes/100 WBC (Bld) 4.0 % 1.7-12.0 [facility] Laboratory - Microbiology an d Antimicrobial susceptibilityOrdered By: Oumar Gunter on 05-27-2023 Bacteria identified Respiratory culture Nom (Sput) [facility] Microscopic observation Gram stain Nom (Unsp spec) [facility] Leukocytes [#/volume] correc clifford for nucleated erythrocytes in Blood by Automated counon 05-27-2023 WBC corrected for nucl RBC Auto (Bld) [#/Vol] 26.6 10 3/uL 4.0-11.0 [facility] MCH Auto (RBC) [Entitic mass ]on 05-27-2023 MCH (RBC) [Entitic mass] 30.0 pg 26.7-34.0 [facility] MCHC Auto (RBC) [Mass/Vol]on 05-27-2023 MCHC (RBC) [Mass/Vol] 31.6 g/dL 29.9-35.2 [facility] MCV Auto (RBC) [Entitic vol] on 05-27-2023 MCV (RBC) [Entitic vol] 94.9 fL 81.0-99.0 [facility] Metamyelocytes/100 WBC Manua l cnt (Bld)on 05-27-2023 Metamyelocytes/100 WBC (Bld) 2.0 % [facility] No Panel Informationon Absolute Basophils (Manual) 0.00 10 3/uL 0.00-0.10 [facility] Band Neutrophils # (Manual) 1.6 10 3/uL 0.0-0.3 [facility] Eosinophils # (Manual) 0.00 10 3/uL 0.00-0.70 [facility] Lymphocytes # (Manual) 3.19 10 3/uL 1.20-3.80 [facility] Metamyelocytes # (Manual) 0.53 [facility] Monocytes # (Manual) 1.06 10 3/uL 0.30-0.80 [facility] Segmented Neutrophils # (Manual) 20.21 10 3/uL 1.4-6.5 [facility] Platelet mean volume Auto (B ld) [Entitic vol]on 05-27-2023 Platelet mean volume (Bld) [Entitic vol] 9.8 fL 9.5-13.5 [facility] Platelets Auto (Bld) [#/Vol] on 05-27-2023 Platelets (Bld) [#/Vol] 265 10 3/uL 150-450 [facility] RBC Auto (Bld) [#/Vol]on RBC (Bld) [#/Vol] 3.13 10 6/uL 4.20-5.40 [facility] Segmented neutrophils/100 WB C Manual cnt (Bld)on 05-27-2023 Segmented neutrophils/100 WBC (Bld) 76.0 % [facility] Serum or plasma albumin/glob ulin mass ratioon 05-27-2023 Albumin/Globulin [Mass ratio] 0.5 {ratio} [facility] Serum or plasma anion gap de terminationon 05-27-2023 Anion gap [Moles/Vol] 18.0 [facility] Serum procalcitonin measurem enton 05-27-2023 Procalcitonin [Mass/Vol] 0.13 ng/mL 0.00-0.50 [facility] Basophils Auto (Bld) [#/Vol] on 05-26-2023 Basophils (Bld) [#/Vol] 0.1 10 3/uL 0.0-0.1 [facility] Basophils/100 WBC Auto (Bld) on 05-26-2023 Basophils/100 WBC (Bld) 0.3 % 0.2-2.0 [facility] Eosinophils/100 WBC Auto (Bl d)on 05-26-2023 Eosinophils/100 WBC (Bld) 0.2 % 0.9-7.0 [facility] Erythrocyte distribution wid th Auto (RBC) [Ratio]on 05-26-2023 Erythrocyte distribution width (RBC) [Ratio] 12.5 % 11.0-15.0 [facility] Estimated glomerular filtrat ion rate (GFR) non- Americanon 05-26-2023 GFR/1.73 sq M.predicted among non-blacks MDRD (S/P/Bld) [Vol rate/Area] 14 mL/min/{1.73_m2} >=60 [facility] Globulin Calc (S) [Mass/Vol] on 05-26-2023 Globulin (S) [Mass/Vol] 4.4 g/dL [facility] Hematocrit Auto (Bld) [Volum e fraction]on 05-26-2023 Hematocrit (Bld) [Volume fraction] 31.7 % 36.0-48.0 [facility] Hemoglobin [Mass/volume] in Bloodon 05-26-2023 Hemoglobin (Bld) [Mass/Vol] 9.7 g/dL 12.0-16.0 [facility] Laboratory - Chemistry and C hemistry - challengeon 05-26-2023 Albumin [Mass/Vol] 2.3 g/dL 3.4-5.0 [facility] ALP [Catalytic activity/Vol] 128 U/L 46-116 [facility] ALT [Catalytic activity/Vol] 19 U/L 14-59 [facility] AST [Catalytic activity/Vol] 18 U/L 15-37 [facility] Bilirubin [Mass/Vol] 0.4 mg/dL 0.2-1.0 [facility] Calcium [Mass/Vol] 8.2 mg/dL 8.5-10.1 [facility] Chloride [Moles/Vol] 102 mmol/L 98-107 [facility] CO2 [Moles/Vol] 23.6 mmol/L 21.0-32.0 [facility] Creatinine [Mass/Vol] 3.17 mg/dL 0.55-1.02 [facility] GFR/1.73 sq M.predicted MDRD (S/P/Bld) [Vol rate/Area] 17 mL/min/{1.73_m2} >=60 [facility] Glucose [Mass/Vol] 279 mg/dL 74-106 [facility] Potassium [Moles/Vol] 4.2 mmol/L 3.5-5.1 [facility] Protein [Mass/Vol] 6.7 g/dL 6.4-8.2 [facility] Sodium [Moles/Vol] 136 mmol/L 136-145 [facility] Urea nitrogen [Mass/Vol] 40.0 mg/dL 7.0-18.0 [facility] Urea nitrogen/Creatinine [Mass ratio] 12.6 mg/mg [facility] Laboratory - Hematology and Cell countson 05-26-2023 Immature granulocytes/100 WBC (Bld) 4.9 % 0.0-0.5 [facility] Leukocytes [#/volume] correc clifford for nucleated erythrocytes in Blood by Automated counon 05-26-2023 WBC corrected for nucl RBC Auto (Bld) [#/Vol] 20.7 10 3/uL 4.0-11.0 [facility] Lymphocytes Auto (Bld) [#/Vo l]on 05-26-2023 Lymphocytes (Bld) [#/Vol] 1.5 10 3/uL 1.2-3.8 [facility] Lymphocytes/100 WBC Auto (Bl d)on 05-26-2023 Lymphocytes/100 WBC (Bld) 7.2 % 20.5-60.0 [facility] MCH Auto (RBC) [Entitic mass ]on 05-26-2023 MCH (RBC) [Entitic mass] 29.8 pg 26.7-34.0 [facility] MCHC Auto (RBC) [Mass/Vol]on 05-26-2023 MCHC (RBC) [Mass/Vol] 30.6 g/dL 29.9-35.2 [facility] MCV Auto (RBC) [Entitic vol] on 05-26-2023 MCV (RBC) [Entitic vol] 97.5 fL 81.0-99.0 [facility] Monocytes Auto (Bld) [#/Vol] on 05-26-2023 Monocytes (Bld) [#/Vol] 0.5 10 3/uL 0.3-0.8 [facility] Monocytes/100 WBC Auto (Bld) on 05-26-2023 Monocytes/100 WBC (Bld) 2.2 % 1.7-12.0 [facility] Neutrophils Auto (Bld) [#/Vo l]on 05-26-2023 Neutrophils (Bld) [#/Vol] 17.6 10 3/uL 1.4-6.5 [facility] Neutrophils/100 WBC Auto (Bl d)on 05-26-2023 Neutrophils/100 WBC (Bld) 85.2 % 43.0-75.0 [facility] No Panel Informationon 05-26 Eosinophils # (Auto) 0.0 10 3/uL 0.0-0.7 [facility] Immature Granulocyte # (Auto) 1.01 10 3/uL 0.00-0.03 [facility] Platelet mean volume Auto (B ld) [Entitic vol]on 05-26-2023 Platelet mean volume (Bld) [Entitic vol] 10.6 fL 9.5-13.5 [facility] Platelets Auto (Bld) [#/Vol] on 05-26-2023 Platelets (Bld) [#/Vol] 227 10 3/uL 150-450 [facility] RBC Auto (Bld) [#/Vol]on RBC (Bld) [#/Vol] 3.25 10 6/uL 4.20-5.40 [facility] Serum or plasma albumin/glob ulin mass ratioon 05-26-2023 Albumin/Globulin [Mass ratio] 0.5 {ratio} [facility] Serum or plasma anion gap de terminationon 05-26-2023 Anion gap [Moles/Vol] 14.6 [facility] Serum procalcitonin measurem enton 05-26-2023 Procalcitonin [Mass/Vol] 0.61 ng/mL 0.00-0.50 [facility] Automated urine specific gra vity by refractometryon 05-25-2023 Specific gravity Refractometry automated (U) [Rel density] >=1.030 1.005-1.025 [facility] Basophils/100 WBC Manual cnt (Bld)on 05-25-2023 Basophils/100 WBC (Bld) 0.0 % 0.2-2.0 [facility] Bilirubin Auto test strip (U ) [Mass/Vol]on 05-25-2023 Bilirubin (U) [Mass/Vol] SMALL NEGATIVE [facility] Blood toxic granulation dete ction by light microscopyon 05-25-2023 Toxic granules LM Ql (Bld) 4+ [facility] Color Auto (U)on 05-25-2023 Color (U) DK. YELLOW YELLOW [facility] Eosinophils/100 WBC Manual c nt (Bld)on 05-25-2023 Eosinophils/100 WBC (Bld) 0.0 % 0.9-7.0 [facility] Erythrocyte distribution wid th Auto (RBC) [Ratio]on 05-25-2023 Erythrocyte distribution width (RBC) [Ratio] 12.3 % 11.0-15.0 [facility] Estimated glomerular filtrat ion rate (GFR) non- Americanon 05-25-2023 GFR/1.73 sq M.predicted among non-blacks MDRD (S/P/Bld) [Vol rate/Area] 12 mL/min/{1.73_m2} >=60 [facility] Globulin Calc (S) [Mass/Vol] on 05-25-2023 Globulin (S) [Mass/Vol] 4.9 g/dL [facility] Hematocrit Auto (Bld) [Volum e fraction]on 05-25-2023 Hematocrit (Bld) [Volume fraction] 35.0 % 36.0-48.0 [facility] Hemoglobin [Mass/volume] in Bloodon 05-25-2023 Hemoglobin (Bld) [Mass/Vol] 11.1 g/dL 12.0-16.0 [facility] Ketones Auto test strip (U) [Mass/Vol]on 05-25-2023 Ketones (U) [Mass/Vol] TRACE mg/dL NEGATIVE [facility] Laboratory - Chemistry and C hemistry - challengeon 05-25-2023 Albumin [Mass/Vol] 2.8 g/dL 3.4-5.0 [facility] ALP [Catalytic activity/Vol] 131 U/L 46-116 [facility] ALT [Catalytic activity/Vol] 21 U/L 14-59 [facility] AST [Catalytic activity/Vol] 21 U/L 15-37 [facility] Bilirubin [Mass/Vol] 0.6 mg/dL 0.2-1.0 [facility] Calcium [Mass/Vol] 9.2 mg/dL 8.5-10.1 [facility] Chloride [Moles/Vol] 100 mmol/L 98-107 [facility] CO2 [Moles/Vol] 27.4 mmol/L 21.0-32.0 [facility] Creatinine [Mass/Vol] 3.70 mg/dL 0.55-1.02 [facility] GFR/1.73 sq M.predicted MDRD (S/P/Bld) [Vol rate/Area] 14 mL/min/{1.73_m2} >=60 [facility] Glucose [Mass/Vol] 142 mg/dL 74-106 [facility] Lactate [Moles/Vol] 1.2 mmol/L 0.4-2.0 [facility] Potassium [Moles/Vol] 4.1 mmol/L 3.5-5.1 [facility] Protein [Mass/Vol] 7.7 g/dL 6.4-8.2 [facility] Sodium [Moles/Vol] 139 mmol/L 136-145 [facility] Urea nitrogen [Mass/Vol] 38.0 mg/dL 7.0-18.0 [facility] Urea nitrogen/Creatinine [Mass ratio] 10.3 mg/mg [facility] Laboratory - Hematology and Cell countson 05-25-2023 Band form neutrophils/100 WBC (Bld) 15.0 % 0-5 [facility] Lymphocytes/100 WBC (Bld) 4.0 % 20.5-60.0 [facility] Monocytes/100 WBC (Bld) 5.0 % 1.7-12.0 [facility] - Microbiology an d Antimicrobial susceptibilityon 05-25-2023 SARS-CoV-2 (COVID-19) RNA ITZEL+probe Ql (Unsp spec) Not detected NOT DETECTE [facility] Leukocytes [#/volume] correc clifford for nucleated erythrocytes in Blood by Automated counon 05-25-2023 WBC corrected for nucl RBC Auto (Bld) [#/Vol] 24.6 10 3/uL 4.0-11.0 [facility] MCH Auto (RBC) [Entitic mass ]on 05-25-2023 MCH (RBC) [Entitic mass] 30.3 pg 26.7-34.0 [facility] MCHC Auto (RBC) [Mass/Vol]on 05-25-2023 MCHC (RBC) [Mass/Vol] 31.7 g/dL 29.9-35.2 [facility] MCV Auto (RBC) [Entitic vol] on 05-25-2023 MCV (RBC) [Entitic vol] 95.6 fL 81.0-99.0 [facility] No Panel Informationon 05-25 Absolute Basophils (Manual) 0.00 10 3/uL 0.00-0.10 [facility] Adenovirus (PCR) Not detected NOT DETECTE [facility] Band Neutrophils # (Manual) 3.7 10 3/uL 0.0-0.3 [facility] Bordetella parapertussis DNA (PCR) Not detected NOT DETECTE [facility] [place] Bordetella pertussis (PCR)(Misc) Not detected NOT DETECTE [facility] Chlamydia pneumoniae DNA (PCR) Not detected NOT DETECTE [facility] Coronavirus Type 229E (PCR) Not detected NOT DETECTE [facility] Coronavirus Type HKU1 (PCR) Not detected NOT DETECTE [facility] Coronavirus Type NL63 (PCR) Not detected NOT DETECTE [facility] Coronavirus Type OC43 (PCR) Not detected NOT DETECTE [facility] Enterovirus/Rhinovirus (PCR) Not detected NOT DETECTE [facility] Eosinophils # (Manual) 0.00 10 3/uL 0.00-0.70 [facility] Human Metapneumovirus (PCR) Not detected NOT DETECTE [facility] Influenza A (PCR) Not detected NOT DETECTE [facility] Influenza Type B (RT-PCR) Not detected NOT DETECTE [facility] Lymphocytes # (Manual) 0.98 10 3/uL 1.20-3.80 [facility] Monocytes # (Manual) 1.23 10 3/uL 0.30-0.80 [facility] Mycoplasma pneumoniae (PCR) Not detected NOT DETECTE [facility] Parainfluenza Type 1 (PCR) Not detected NOT DETECTE [facility] Parainfluenza Type 2 (PCR) Not detected NOT DETECTE [facility] Parainfluenza Type 3 (PCR) Not detected NOT DETECTE [facility] Parainfluenza Type 4 (PCR) Not detected NOT DETECTE [facility] Reactive Lymphocytes 3.19 [facility] Reactive Lymphocytes 13.0 % [facility] Respiratory Syncytial Virus (PCR) Not detected NOT DETECTE [facility] Segmented Neutrophils # (Manual) 15.49 10 3/uL 1.4-6.5 [facility] Troponin I High Sensitivity 12.0 pg/mL 4.0-51.3 [facility] Comment on above: CUT-OFF POINTS HAVE BEEN ESTABLISHED BASED ON THE FOURTHUNIVERSAL DEFINITION OF MYOCARDIAL INFARCTION. THE UPPERREFERENCE LIMIT (URL) OF TROPONIN, DEFINED THE 99THPERCENTILE OF cTnI DISTRIBUTION IN A REFERENCE POPULATION,HAS BEEN CONFIRMED THE DECISION THRESHOLD FOR MIDIAGNOSIS.99TH PERCENTILE = 51.4 PG/MLNOTE: HIGH-SENSITIVITY TROPONIN ASSAY IS NOT INTENDED TO BEUSED IN ISOLATION BUT SHOULD BE INTERPRETED IN CONJUNCTIONWITH OTHER DIAGNOSTIC AND CLINICAL INFORMATION. Urine Microscopic Review NO [facility] No Panel InformationOrdered By: Oumar Gunter on 05-25-2023 Blood Culture 1 [facility] Blood Culture 2 [facility] Platelet mean volume Auto (B ld) [Entitic vol]on 05-25-2023 Platelet mean volume (Bld) [Entitic vol] 10.5 fL 9.5-13.5 [facility] Platelets Auto (Bld) [#/Vol] on 05-25-2023 Platelets (Bld) [#/Vol] 272 10 3/uL 150-450 [facility] Protein Auto test strip (U) [Mass/Vol]on 05-25-2023 Protein (U) [Mass/Vol] TRACE mg/dL NEG/TRACE [facility] RBC Auto (Bld) [#/Vol]on RBC (Bld) [#/Vol] 3.66 10 6/uL 4.20-5.40 [facility] Segmented neutrophils/100 WB C Manual cnt (Bld)on 05-25-2023 Segmented neutrophils/100 WBC (Bld) 63.0 % [facility] Serum or plasma albumin/glob ulin mass ratioon 05-25-2023 Albumin/Globulin [Mass ratio] 0.6 {ratio} [facility] Serum or plasma anion gap de terminationon 05-25-2023 Anion gap [Moles/Vol] 15.7 mmol/L [facility] Serum procalcitonin measurem enton 05-25-2023 Procalcitonin [Mass/Vol] 0.52 ng/mL 0.00-0.50 [facility] Specific gravity Auto test s trip (U) [Rel density]on 05-25-2023 Specific gravity (U) [Rel density] CLEAR CLEAR [facility] Urine glucose measurement by test strip (mass/volume)on 05-25-2023 Glucose Test strip (U) [Mass/Vol] Negative NEGATIVE [facility] Urine hemoglobin detection b y automated test stripon 05-25-2023 Hemoglobin Auto test strip Ql (U) Negative NEGATIVE [facility] Urine nitrite detection by a utomated test stripon 05-25-2023 Nitrite Auto test strip Ql (U) Negative NEGATIVE [facility] Urobilinogen Auto test strip (U) [Mass/Vol]on 05-25-2023 Urobilinogen Qn (U) 0.2 {Valentino'U}/dL 0.2-1.0 [facility] pH Auto test strip (U)on pH (U) 5.0 [pH] 5.0-9.0 [facility] NM priscila perf SPECT rest stron 03-03-2023 NM priscila perf SPECT rest str [facility] [place] [address] Nuclear Medicine Report Signed Patient: Catherine Ayers MR#: [id number] : 1945 Acct:[id number] Age/Sex: 77 / F ADM Date: 03/02/23 Loc: Room: Type: [facility] Attending Dr: Linda Renteria MD Copies to: Gustavo Moore MD, [facility] Linda Renteria MD Ordering Provider: Linda Renteria MD Date of Service: 03/02/23 NM/NM priscila perf SPECT rest str: Chest pain ORDERED BY: Linda Renteria MD INDICATIONS: A 77-year-old patient with chest pain. Resting images were obtained after intravenous administration of 26.7 mCi of Cardiolite given on 03/03/2023, and stress images were obtained after intravenous administration of 26.6 mCi of Cardiolite given at peak exercise on 03/02/2023. Subsequently, gated SPECT MPI was obtained. TOMOGRAPHIC DATA: The study demonstrated homogeneous tracer uptake with no indication of ischemia or prior myocardial infarction. The gated study is normal and demonstrated normal ejection fraction of 83% with normal TID at 0.81. CONCLUSION: 1. Normal exercise Cardiolite SPECT MPI. 2. No tomographic evidence of ischemia or prior myocardial infarction. 3. Normal left ventricular volume and wall motion, ejection fraction 83% with normal TID at 0.81. No previous studies are available for comparison. Transcribed By: NTS 03/03/23 1712 Dictated By: Gustavo Moore MD, [facility] 03/03/23 1620 Signed By: 03/04/23 1443 Normal [facility] STR cardiac stress/cardiolon 03-03-2023 STR cardiac stress/cardiol [facility] [place] [place] [address] Cardiac Stress Test Signed Patient: Catherine Ayers MR#: [id number] : 1945 Acct:[id number] Age/Sex: 77 / F ADM Date: 03/02/23 Loc: Room: Type: [facility] Attending Dr: Linda Renteria MD Copies to: Gustavo Moore MD, [facility] Linda Renteria MD Ordering Provider: Linda Renteria MD Date of Service: 03/02/23 STR/STR cardiac stress/cardiol: Shortness of breath;Diaphoresis ORDERED BY: Linda Renteria MD INDICATIONS: A 77-year-old patient with chest pain. Resting ECG revealed sinus rhythm with a rate of 76 beats per minute. Resting blood pressure 142/82 mmHg. The patient was exercised on a Philip protocol for 3 minutes and 58 seconds and achieved a maximum heart rate 141 beats per minute, which represented 98% of predicted maximum heart rate. Blood pressure neha to 200/110 mmHg and the patient achieved maximum workload of 4.6 METS. The test ended due to dyspnea. During exercise, no ischemic EKG changes, chest pain or cardiac arrhythmias were seen. Cardiolite study followed. CONCLUSION: 1. No exercise-induced ischemic EKG changes, chest pain or cardiac arrhythmias after completing 3 minutes and 58 seconds on a Philip protocol and achieving 98% of predicted maximum heart rate and a workload of 4.6 METS. 2. Cardiolite studies to be reported separately by Nuclear Cardiology. Transcribed By: NTS 03/04/23 1718 Dictated By: Gustavo Moore MD, [facility] 03/03/231921 Signed By: 03/05/23 0852 [facility] XR knee LT 2Von 07-02-2022 XR [place] LT 2[place] [address] XRay Report Signed Patient: Catherine Ayers MR#: [id number] : 1945 Acct:[id number] Age/Sex: 77 / F ADM Date: 07/02/22 Loc: [facility] Room: Type: [facility] Attending Dr: Miguel Schultz II, MD Copies to: Miguel Schultz MD Ordering Provider: Miguel Schultz MD Date of Service: 07/02/22 XR/XR knee LT 2V: Primary osteoarthritis of left knee LEFT KNEE - 2 views COMPARISON: 10/16/2021 CLINICAL DATA: Follow-up knee replacement. AP and lateral standing views were obtained. A knee prosthesis is again visualized. The hardware appears intact and unchanged from the prior. There are no developing fractures or dislocation. There is no sizable knee effusion. XR/XR knee LT 2V IMPRESSION: STABLE KNEE REPLACEMENT. Impression dictated by: Qi Espinoza M.D.07/02/2022 1:42 PM Dictation Location: [place] [address] Transcribed By: [facility] 07/02/22 1342 Dictated By: Qi Espinoza MD 07/02/22 1341 Signed By: 07/02/22 1342 [facility] XR knee LT 2V [facility] [employer] Other XR knee LT 2V [facility] [employer] Other XR knee LT 2V [address] [place] [address] [employer] Other XR knee LT 2[place] [address] [facility] [employer] Other XR knee LT 2V XRay Report [email or web address] Other XR knee LT 2V Signed [email or web address] Other XR knee LT 2V Patient: Catherine Ayers MR#: [id number] [email or web address] Other XR knee LT 2V [id number] [email or web address] Other XR knee LT 2V : 1945 Acct:[id number] [email or web address] Other XR knee LT 2V Age/Sex: 77 / F ADM Date: 07/02/22 [email or web address] Other XR knee LT 2V Loc: [facility] Room: Type : [facility] [email or web address] Other XR knee LT 2V Attending Dr: Miguel Schultz II, MD [email or web address] Other XR knee LT 2V Copies to: Miguel Schultz MD [email or web address] Other XR knee LT 2V Ordering Provider: Miguel Schultz MD [email or web address] Other XR knee LT 2V Date of Service: 07/02/22 [email or web address] Other XR knee LT 2V XR/XR knee LT 2V: Primary osteoarthritis of left knee [email or web address] Other XR knee LT 2V LEFT KNEE - 2 views No rt [employer] Other XR knee LT 2V COMPARISON: 10/16/2021 [email or web address] Other XR knee LT 2V CLINICAL DATA: Follow-up knee replacement. [email or web address] Other XR knee LT 2V AP and lateral standing views were obtained. A knee prosthesis is again visualized. The hardware [email or web address] Other XR knee LT 2V appears intact and unchanged from the prior. There are no developing fractures or dislocation. [email or web address] Other XR knee LT 2V There is no sizable knee effusion. [email or web address] Other XR knee LT 2V XR/XR knee LT 2V [email or web address] Other XR knee LT 2V IMPRESSION: [email or web address] Other XR knee LT 2V STABLE KNEE REPLACEMENT. [email or web address] Other XR knee LT 2V Impression dictated by: Qi Espinoza M.D.07/02/2022 1:42 PM [email or web address] Other XR knee LT 2V Dictation Location: [place] [address] [email or web address] Other XR knee LT 2V Transcribed By: JACLYN 07/02/22 [facility] [email or web address] Other XR knee LT 2V Dictated By: Qi Espinoza MD 07/02/22 [facility] [email or web address] Other XR knee LT 2V Signed By: [email or web address] Other XR knee LT 2V 07/02/22 [facility] [employer] Other ECHOCARDIO M/2D COMPLETEon 0 10-17-2021 ECHOCARDIO M/2D COMPLETE Patient: CATHERINE AYERS Exam Date: 10/17/2021 : 1945 Gender:F Ordering : DR OUMAR GUNTER M.D. Admission #: [id number] Family : Order #: [id number] CLICK HERE TO VIEW EXAM ECHOCARDIOGRAM REPORT PROCEDURE: CARDIO PULMONARY ECHOCARDIO M/2D COMP INDICATIONS: Dyspnea on exertion, edema COMPARISON: None. DESCRIPTION: COMPLETE ECHOCARDIOGRAM Real-time transthoracic echocardiography with 2D, M-mode, spectral and color flow Doppler performed. QUALITY: Technically difficult due to patients condition and breast implants. 63 205# BP 158/90 HR 82 LEFT VENTRICLE: Normal chamber size. Normal left ventricular wall thickness. Systolic function is normal. LV EF: Normal left ventricular ejection fraction, (60%). DIASTOLIC: Normal diastolic function. ATRIAL SEPTUM: Visually appears intact. LEFT ATRIUM: Normal chamber size. RIGHT ATRIUM: Normal chamber size. RIGHT VENTRICLE: Normal chamber size. TRICUSPID VALVE: Normal mobility and thickness. No stenosis with no regurgitation. Unable to assess right-sided pressures due to lack of measurable tricuspid regurgitation. MITRAL VALVE: Normal mobility and thickness. No evidence of mitral valve stenosis. Mild mitral annular calcification. Trivial mitral regurgitation. AORTIC VALVE: Normal trileaflet appearance. Thickened aortic valve. Normal leaflet mobility. No evidence of aortic valve stenosis. No aortic regurgitation. AORTIC ROOT: Normal diameter and appearance. Ascending aorta is normal in size. PULMONIC VALVE: Normal thickness and mobility. No stenosis. Mild regurgitation. PERICARDIUM: No evidence of pericardial effusion. IVC: Collapses with inspirations. IVC is normal in size. PLEURA: CONCLUSION: 1. Normal ventricular function. LVEF is 60%. 2. No significant valvular dysfunction. 3. No pericardial effusion. Dictated by: Ibrahima Arguelles M.D. on 10/17/2021 at 17:38 Approved by: Ibrahima Arguelles M.D. on 10/17/2021 at 17:41 Normal [facility] ANES POSTPROC EVALon 022 ANES POSTPROC EVAL HNO ID: [id number] Author: Maria Guadalupe Lagos MD Service: Anesthesiology Author Type: Anesthesiologist Type: Anesthesia Postprocedure Evaluation Filed: 08/20/2021 12:24 PM Note Text: POST ANESTHESIA EVALUATION NOTE : 1945 Procedure Summary Date: 08/20/21 Room / Location: [address] Anesthesia Start: 1121 Anesthesia Stop: 1138 Procedures: PHACOEMULSIFICATION CATARACT IMPLANT INTRAOCULAR LENS W/O ENDOSCOPIC CYCLOPHOTOCOAGULATION (Right Eye) OPHTHALMIC BIOMETRY BY PARTIAL COHERENCE INTERFEROMETRY W/INTRAOCULAR LENS POWER CALCULATION (Right Eye) Diagnosis: Combined forms of age-related cataract of both eyes Surgeons: Jennifer Jones V, MD Responsible Provider: Maria Guadalupe Lagos MD Anesthesia Type: MAC ASA Status: 3 Anesthesia Type: MAC Last Vitals Vitals Value Taken Time BP 128/66 08/20/21 1151 Temp 36.3 ?C (97.3 ?F) 08/20/21 1141 Pulse 84 08/20/21 1151 Resp 16 08/20/21 1151 SpO2 95 % 08/20/21 1151 Post Anesthesia Patient Status Patient Evaluation: PACU. Neurological Status: aware and responsive. Pulmonary Status: breathing comfortably on room air Airway Control: returned to baseline unsupported. Cardiovascular Status: stable. Pain Management: clinically adequate Postoperative Hydration: acceptable. Intraoperative Events: no significant anesthesia events Post Operative Nausea/Vomiting Status: no significant post operative nausea or vomiting Anesthetic Observations: Recommendation: continue current plan of care. Anesthesia Observations No Documentation SIGNATURE: MARIA GUADALUPE LAGOS MD PATIENT NAME: Catherine Ayers DATE: August 20, 2021 TIME: 12:23 PM CSN: [id number] Normal [facility] ANES PRE-OPon 08-20-2021 ANES PRE-OP HNO ID: [id number] Author: Maria Guadalupe Lagos MD Service: Anesthesiology Author Type: Anesthesiologist Type: Anesthesia Preprocedure Evaluation Filed: 08/20/2021 9:00 AM Note Text: ANESTHESIOLOGY DAY OF SURGERY NOTE : 1945 Procedure Information Date/Time: 08/20/21 1055 Procedures: PHACOEMULSIFICATION CATARACT IMPLANT INTRAOCULAR LENS W/O ENDOSCOPIC CYCLOPHOTOCOAGULATION (Right Eye) OPHTHALMIC BIOMETRY BY PARTIAL COHERENCE INTERFEROMETRY W/INTRAOCULAR LENS POWER CALCULATION (Right Eye) Location: [address] Surgeons: Jennifer Jones V, MD Estimated body mass index is 35.92 kg/m? as calculated from the following: Height as of 07/30/21: 161.3 cm (5' 3.5 ). Weight as of 07/30/21: 93.4 kg (206 lb). Most recent hematocrit and potassium results: Hematocrit 40.3 05/08/2013 Potassium 5.3 01/10/2014 Relevant Problems CARDIO (+) Congestive heart failure (HCC) I - PHYSICAL EVALUATION AIRWAY Patient intubated: No. Tracheostomy tube not present Mallampati: II. TM distance: >3 FB. Neck ROM: full ROM without neurological symptoms. Mouth opening: adequate. Short neck: no. Thick neck: no DENTAL Normal dental observations. Dental findings: teeth intact. Additional exam findings: yes. CARDIOVASCULAR Rhythm: regular Rate: normal PULMONARY Breath sounds clear to auscultation. II - ANESTHESIA PLAN ASA Score: 3 Anesthetic Plan: MAC NPO Status: adequate Monitoring plan: Standard ASA. Postoperative analgesic plan: parenteral or oral opioids and multimodal analgesia. Informed Consent Anesthetic risks, benefits, alternatives, personnel and consent discussed: yes. Patient / Responsible Democrat agrees to proceed: yes Patient / Surrogate agrees to blood products: blood products not planned DNR status not reviewed with patient and/or family prior to surgery. Significant changes in the patient condition since the History and Physical, not otherwise documented in primary service progress note: no. Potential Anesthesia issues that may suggest increased risk of complications or contraindication to planned procedure: none. No vitals data found for the desired time range. Facility-Administered Medications as of Medication Dose Route Frequency - [COMPLETED] tetracaine (PF) 0.5 % 2 Drop (OPTICAINE) 2 Drop LEFT EYE q 5 MIN - [COMPLETED] PHENYLephrine 2.5 % 1 Drop (AK-DILATE, DANA-SYNEPHRINE) 1 Drop LEFT EYE EVERY 5 MINUTES X 3 DOSES - [COMPLETED] tropicamide 1 % 1 Drop (MYDRIACYL) 1 Drop LEFT EYE EVERY 5 MINUTES X 3 DOSES - [COMPLETED] keTORolac 0.5 % 1 Drop (ACULAR) 1 Drop LEFT EYE q 5 MIN - [COMPLETED] Povidone-Iodine 5 % 30 mL ophth soln (BETADINE) 30 mL LEFT EYE ONCE - [COMPLETED] balanced salts 15 mL (BSS) 15 mL LEFT EYE ONCE - [] tropicamide 1 % 1 Drop (MYDRIACYL) 1 Drop BOTH EYES As Directed - [] PHENYLephrine 2.5 % 1 Drop (AK-DILATE, DANA-SYNEPHRINE) 1 Drop BOTH EYES As Directed - [] fluorescein-benoxinat e 0.25-0.4 % 1 Drop (FLURESS) 1 Drop BOTH EYES As Directed - [] proparacaine 0.5 % 1 Drop (ALCAINE) 1 Drop BOTH EYES As Directed Outpatient Medications as of Medication Sig - prednisoLONE acetate (PRED FORTE, ECONOPRED PLUS) 1 % ophthalmic suspension USE DIRECTED BY PHYSICIAN, IN OPERATIVE EYE, BEGINNING ONE DAY AFTER SURGERY - keTORolac (ACULAR) 0.5 % ophthalmic solution USE DIRECTED BY PHYSICIAN, IN OPERATIVE EYE, BEGINNING ONE DAY AFTER SURGERY - prednisoLONE acetate (PRED FORTE, ECONOPRED PLUS) 1 % ophthalmic suspension USE DIRECTED BY PHYSICIAN, IN OPERATIVE EYE, BEGINNING ONE DAY AFTER SURGERY (Patient not taking: Reported on 08/20/2021 ) - keTORolac (ACULAR) 0.5 % ophthalmic solution USE DIRECTED BY PHYSICIAN, IN OPERATIVE EYE, BEGINNING ONE DAY AFTER SURGERY (Patient not taking: Reported on 08/20/2021 ) - gabapentin (NEURONTIN) 600 mg tablet - naproxen (NAPROSYN) 500 mg tablet Take 500 mg by mouth once daily. - oxyCODONE (ROXICODONE) 15 mg immediate release tablet - pravastatin (PRAVACHOL) 10 mg ORAL tablet Take 1 tablet by mouth once daily. - aspirin, enteric coated (ECOTRIN LOW STRENGTH) 81 mg ORAL EC tablet Take 1 tablet by mouth once daily. I have interviewed and examined the patient. I have reviewed the medical record and/or the pre-anesthesia evaluation, pertinent labs, and test results. This contains updated information obtained within 48 hours of Surgery/Procedure. SIGNATURE: MARIA GUADALUPE LAGOS MD PATIENT NAME: Catherine Ayers DATE: August 20, 2021 TIME: 8:59 AM CSN: [id number] Normal [facility] OPERATIVE NOon 08-20-2021 OPERATIVE NO HNO ID: [id number] Author: Jennifer Jones V, MD Service: Ophthalmology Author Type: Physician Type: Operative Report Filed: 08/20/2021 11:39 AM Note Text: OPERATIVE REPORT DATE OF SERVICE: August 20, 2021 PRIMARY SURGEON: Jennifer Jones M.D. CONSTRUCTION CONTROLLER: None Procedure(s) (LRB): PHACOEMULSIFICATION CATARACT IMPLANT INTRAOCULAR LENS W/O ENDOSCOPIC CYCLOPHOTOCOAGULATION (Right) OPHTHALMIC BIOMETRY BY PARTIAL COHERENCE INTERFEROMETRY W/INTRAOCULAR LENS POWER CALCULATION (Right) ANESTHESIA: Topical with monitored anesthesia care. PREOPERATIVE DIAGNOSIS: Combined cataract POSTOPERATIVE DIAGNOSIS: Combined cataract, presbyopia OPERATIVE INDICATIONS: BAT 20/50 OPERATIVE PROCEDURE: The patient was admitted to the operating suite where an IV and BP, EKG, and O2 monitors were placed. Nasal oxygen was administered. The operative eye was confirmed, marked, then pretreated with 2.5% tropicamide, 1% phenylephrine, and ciprofloxacin eye drops. With the patient in the supine position, topical lidocaine gel 2% was placed in a small ribbon in the lower cul-de-sac. The patient was then prepped and draped in the usual sterile fashion for intraocular surgery. After a time-out confirming correct patient, correct eye, correct operation, presence of allergies, and correct implant, an eyelid speculum was placed. Under the operating microscope a beveled clear corneal incision was created temporally with a [place] blade then a 2.4 mm keratome. The anterior chamber was reformed with Viscoat, after which the anterior capsule was opened centrally. Using the Utrata forceps a continuous curvilinear capsulorrhexis of approximately 5.5 mm round was created. Gentle hydrodissection was accomplished using preservative-free lidocaine on a 27-gauge cannula. Using the Tian phacoemulsification unit with the Listen Up curved tip, the anterior chamber was entered and the nucleus was removed while it was in the bag. The epinuclear ring was dissected into several segments, then removed using the phacoemulsification unit set to the desired aspiration flow rate and ultrasound parameters. It was necessary to use chopper forceps at various intervals to aid in the fragmentation of the dense lens material. Great care was taken not to violate the posterior capsule. The silicone-tipped I and A instrument was used to remove the cortex and buff off any remaining cataractous material from the posterior capsule. The capsular bag was then reformed with Discovisc and the following Intraocular lens implant Implant Name Type Inv. Item Serial No. Fund Manager Lot No. LRB Model Num No. Used LENS IOL 0D +13 [employer] - [id number] Intraocular Lens LENS IOL 0D +13 [employer] [id number] [employer] Right [id number] was inserted through the lips of the wound into the capsular bag. Using the I and A instrument, the Discovisc was removed from the anterior chamber and capsular bag, and the implant was centered. Cefuroxime 1mg in 0.1 mL normal saline was introduced into the anterior chamber through the clear corneal incision using a 30 gauge cannula. The wound was checked and found to be watertight. At the end of the procedure, the cornea was clear, the anterior chamber was deep and clear, the pupil was round, the implant was centered within the capsular bag, and the posterior capsule was intact. The eyelid speculum was removed and prednisolone acetate 1% and timolol 0.5% eye drops were administered. A shield was affixed over the eye and the patient was sent to the recovery room, leaving the operating room in excellent condition. ESTIMATED BLOOD LOSS: <1mL SPECIMEN: None FINDINGS: Age-related cataract COMPLICATIONS: None Incision/Procedure Start Time: 11:27 AM Incision Close/Procedure End Time: 11:37 AM - Comanage with Dr Dang; relinquish care POD #1 Jennifer JONES MD [facility] ANES POSTPROC EVALon 022 ANES POSTPROC EVAL HNO ID: [id number] Author: Chencho Leon MD Service: Anesthesiology Author Type: Anesthesiologist Type: Anesthesia Postprocedure Evaluation Filed: 08/06/2021 1:06 PM Note Text: POST ANESTHESIA EVALUATION NOTE : 1945 Procedure Summary Date: 08/06/21 Room / Location: [address] Anesthesia Start: 1031 Anesthesia Stop: 105 Procedures: PHACOEMULSIFICATION CATARACT IMPLANT INTRAOCULAR LENS W/O ENDOSCOPIC CYCLOPHOTOCOAGULATION (Left Eye) OPHTHALMIC BIOMETRY BY PARTIAL COHERENCE INTERFEROMETRY W/INTRAOCULAR LENS POWER CALCULATION (Left Eye) Diagnosis: Combined forms of age-related cataract of both eyes Surgeons: Jennifer Jones V, MD Responsible Provider: Chencho Leon MD Anesthesia Type: MAC ASA Status: 3 Anesthesia Type: MAC Last Vitals Vitals Value Taken Time BP 124/61 08/06/21 1101 Temp 36.7 ?C (98 ?F) 08/06/21 1051 Pulse 66 08/06/21 1101 Resp 16 08/06/21 1101 SpO2 95 % 08/06/21 1101 Post Anesthesia Patient Status Patient Evaluation: PACU. PACU/ICU Patient Condition: stable. Anticipated Disposition: phase 2 then home. Neurological Status: aware and responsive. Pulmonary Status: breathing comfortably on room air Airway Control: returned to baseline unsupported. Cardiovascular Status: stable. Pain Management: clinically adequate Postoperative Hydration: acceptable. Intraoperative Events: no significant anesthesia events Post Operative Nausea/Vomiting Status: no significant post operative nausea or vomiting Anesthetic Observations: Recommendation: continue current plan of care. Anesthesia Observations No Documentation SIGNATURE: Chencho Leon MD PATIENT NAME: Catherine Ayers DATE: August 06, 2021 TIME: 1:06 PM CSN: [id number] Normal [facility] ANES PRE-OPon 08-06-2021 ANES PRE-OP HNO ID: [id number] Author: Chencho Leon MD Service: Anesthesiology Author Type: Anesthesiologist Type: Anesthesia Preprocedure Evaluation Filed: 08/06/2021 10:28 AM Note Text: ANESTHESIOLOGY DAY OF SURGERY NOTE : 1945 Procedure Information Date/Time: 08/06/21 1025 Procedures: PHACOEMULSIFICATION CATARACT IMPLANT INTRAOCULAR LENS W/O ENDOSCOPIC CYCLOPHOTOCOAGULATION (Left Eye) OPHTHALMIC BIOMETRY BY PARTIAL COHERENCE INTERFEROMETRY W/INTRAOCULAR LENS POWER CALCULATION (Left Eye) Location: [place] [address] / [facility] Surgeons: Jennifer oJnes V, MD Estimated body mass index is 35.92 kg/m? as calculated from the following: Height as of 07/30/21: 161.3 cm (5' 3.5 ). Weight as of 07/30/21: 93.4 kg (206 lb). Most recent hematocrit and potassium results: Hematocrit 40.3 05/08/2013 Potassium 5.3 01/10/2014 Relevant Problems CARDIO (+) Congestive heart failure (HCC) Other (+) CRPS (complex regional pain syndrome) type I (+) Other hyperlipidemia I - PHYSICAL EVALUATION AIRWAY Patient intubated: No. Mallampati: III. Neck ROM: limited extension. Mouth opening: adequate. DENTAL Dentures, upper: complete. Dentures, lower: partial. Additional exam findings: yes. CARDIOVASCULAR Rhythm: regular Rate: normal Murmur not present. PULMONARY Breath sounds clear to auscultation. II - ANESTHESIA PLAN ASA Score: 3 Anesthetic Plan: MAC NPO Status: adequate Monitoring plan: standard ASA. Postoperative analgesic plan: multimodal analgesia. Informed Consent Anesthetic risks, benefits, alternatives, personnel and consent discussed: yes. Patient / Responsible Democrat agrees to proceed: yes Patient / Surrogate agrees to blood products: blood products not planned Potential Anesthesia issues that may suggest increased risk of complications or contraindication to planned procedure: none. Vitals Value Taken Time BP Pulse 63 08/06/21 0956 Resp 16 08/06/21 0956 Temp 36.4 ?C (97.6 ?F) 08/06/21 0956 SpO2 Facility-Administered Medications as of 08/06/2021 Medication Dose Route Frequency - NaCl 0.9% iv infusion 30 mL/hr INTRAVENOUS CONTINUOUS - [START ON 08/07/2021] lidocaine 2 % (XYLOCAINE) OTHER [employer]en [employer] to OR - tetracaine (PF) 0.5 % 2 Drop (OPTICAINE) 2 Drop LEFT EYE q 5 MIN - PHENYLephrine 2.5 % 1 Drop (AK-DILATE, DANA-SYNEPHRINE) 1 Drop LEFT EYE EVERY 5 MINUTES X 3 DOSES - tropicamide 1 % 1 Drop (MYDRIACYL) 1 Drop LEFT EYE EVERY 5 MINUTES X 3 DOSES - cyclopentolate 1 % 1 Drop (CYCLOGYL) 1 Drop LEFT EYE Pre-Op PRN - keTORolac 0.5 % 1 Drop (ACULAR) 1 Drop LEFT EYE q 5 MIN - [COMPLETED] Povidone-Iodine 5 % 30 mL ophth soln (BETADINE) 30 mL LEFT EYE ONCE - [COMPLETED] balanced salts 15 mL (BSS) 15 mL LEFT EYE ONCE Outpatient Medications as of 08/06/2021 Medication Sig - prednisoLONE acetate (PRED FORTE, ECONOPRED PLUS) 1 % ophthalmic suspension USE DIRECTED BY PHYSICIAN, IN OPERATIVE EYE, BEGINNING ONE DAY AFTER SURGERY - keTORolac (ACULAR) 0.5 % ophthalmic solution USE DIRECTED BY PHYSICIAN, IN OPERATIVE EYE, BEGINNING ONE DAY AFTER SURGERY - gabapentin (NEURONTIN) 600 mg tablet - naproxen (NAPROSYN) 500 mg tablet Take 500 mg by mouth once daily. - oxyCODONE (ROXICODONE) 15 mg immediate release tablet - pravastatin (PRAVACHOL) 10 mg ORAL tablet Take 1 tablet by mouth once daily. - aspirin, enteric coated (ECOTRIN LOW STRENGTH) 81 mg ORAL EC tablet Take 1 tablet by mouth once daily. I have interviewed and examined the patient. I have reviewed the medical record and/or the pre-anesthesia evaluation, pertinent labs, and test results. This contains updated information obtained within 48 hours of Surgery/Procedure. SIGNATURE: Chencho Leon MD PATIENT NAME: Catherine Ayers DATE: August 06, 2021 TIME: 10:10 AM CSN: [id number] Normal [facility] OPERATIVE NOon 08-06-2021 OPERATIVE NO HNO ID: [id number] Author: Jennifer Jones V, MD Service: Ophthalmology Author Type: Physician Type: Operative Report Filed: 08/06/2021 10:49 AM Note Text: OPERATIVE REPORT DATE OF SERVICE: August 06, 2021 PRIMARY SURGEON: Jennifer Jones M.D. CONSTRUCTION CONTROLLER: None Procedure(s) (LRB): PHACOEMULSIFICATION CATARACT IMPLANT INTRAOCULAR LENS W/O ENDOSCOPIC CYCLOPHOTOCOAGULATION (Left) OPHTHALMIC BIOMETRY BY PARTIAL COHERENCE INTERFEROMETRY W/INTRAOCULAR LENS POWER CALCULATION (Left) ANESTHESIA: Topical with monitored anesthesia care. PREOPERATIVE DIAGNOSIS: Combined cataract POSTOPERATIVE DIAGNOSIS: Combined cataract, presbyopia OPERATIVE INDICATIONS: Best corrected visual acuity 20/300 OPERATIVE PROCEDURE: The patient was admitted to the operating suite where an IV and BP, EKG, and O2 monitors were placed. Nasal oxygen was administered. The operative eye was confirmed, marked, then pretreated with 2.5% tropicamide, 1% phenylephrine, and ciprofloxacin eye drops. With the patient in the supine position, topical lidocaine gel 2% was placed in a small ribbon in the lower cul-de-sac. The patient was then prepped and draped in the usual sterile fashion for intraocular surgery. After a time-out confirming correct patient, correct eye, correct operation, presence of allergies, and correct implant, an eyelid speculum was placed. Under the operating microscope a beveled clear corneal incision was created temporally with a [place] blade then a 2.4 mm keratome. The anterior chamber was reformed with Viscoat, after which the anterior capsule was opened centrally. Using the Utrata forceps a continuous curvilinear capsulorrhexis of approximately 5.5 mm round was created. Gentle hydrodissection was accomplished using preservative-free lidocaine on a 27-gauge cannula. Using the Tian phacoemulsification unit with the Kelman curved tip, the anterior chamber was entered and the nucleus was removed while it was in the bag. The epinuclear ring was dissected into several segments, then removed using the phacoemulsification unit set to the desired aspiration flow rate and ultrasound parameters. It was necessary to use chopper forceps at various intervals to aid in the fragmentation of the dense lens material. Great care was taken not to violate the posterior capsule. The silicone-tipped I and A instrument was used to remove the cortex and buff off any remaining cataractous material from the posterior capsule. The capsular bag was then reformed with Discovisc and the following Intraocular lens implant Implant Name Type Inv. Item Serial No. Fund Manager Lot No. LRB Model Num No. Used LENS IOL 0D +13 TONY UV ABS - [id number] Intraocular Lens LENS IOL 0D +13 TON[employer] [id number] [employer] Left [id number] was inserted through the lips of the wound into the capsular bag. Using the I and A instrument, the Discovisc was removed from the anterior chamber and capsular bag, and the implant was centered. Cefuroxime 1mg in 0.1 mL normal saline was introduced into the anterior chamber through the clear corneal incision using a 30 gauge cannula. The wound was checked and found to be watertight. At the end of the procedure, the cornea was clear, the anterior chamber was deep and clear, the pupil was round, the implant was centered within the capsular bag, and the posterior capsule was intact. The eyelid speculum was removed and prednisolone acetate 1% and timolol 0.5% eye drops were administered. A shield was affixed over the eye and the patient was sent to the recovery room, leaving the operating room in excellent condition. ESTIMATED BLOOD LOSS: <1mL SPECIMEN: None FINDINGS: Age-related cataract COMPLICATIONS: None Incision/Procedure Start Time: 10:38 AM Incision Close/Procedure End Time: 10:48 AM - Comanage with Dr Dang; [facility] POD #1 Jennifer JONES MD [facility] HISTORY PHYSICALon 2 HISTORY PHYSICAL HNO ID: [id number] Author: Shikha Kate APRN.FOOD SELECTOR Service: ? Author Type: Nurse Practitioner Type: HANDP Filed: 07/30/2021 12:04 PM Note Text: HISTORY AND PHYSICAL EXAMINATION SERVICE DATE: 07/30/2021 SERVICE TIME: 8:51 AM PRIMARY CARE PHYSICIAN: Oumar Gunter MD REASON FOR VISIT: Catherine Ayers is a 76 year old female who is scheduled for Bilateral Cataracts at the request of Dr. Jennifer Jones V for consultation. My final recommendation will be communicated back to the requesting physician by way of shared medical record or letter. The patient has the following: ACTIVE PROBLEM LIST Burning Sensation Neuropathic Pain Crps (Complex Regional Pain Syndrome) Type I Other Hyperlipidemia Breast Cancer (Hcc) Congestive Heart Failure (Hcc) Subjective CHIEF COMPLAINT: Visual Disturbance HPI: 76 year old year old Female presents today for evaluation. Found to have cataract on exam. Denies pain. No relieving factors. PAST MEDICAL HISTORY Diagnosis Date - Breast cancer (HCC) - Chronic back pain - Congestive heart failure (HCC) - Histoplasmosis - Hyperlipidemia - Hypertension - Macular degeneration PAST SURGICAL HISTORY Procedure Laterality Date - AFTER ATTEMPTED -GLOBAL - PAST SURGICAL HISTORY OF 03/29/2006 Double masectomy with implants - PAST SURGICAL HISTORY OF SCS ([employer]) - TOTAL KNEE REPLACEMENT Left FAMILY HISTORY Problem Relation Age of Onset - COPD Mother - Asthma Mother - Ischemic Heart Disease Father - Ischemic Heart Disease Brother - COPD Sister SOCIAL HISTORY: Social History Tobacco Use - Smoking status: Never Smoker - Smokeless tobacco: Never Used Substance Use Topics - Alcohol use: Yes Comment: very rare--maybe 4 drinks a year. - Drug use: No Prior to Admission medications as of 05/27/21 1205 Medication Sig Last Dose Taking celecoxib (CELEBREX) 200 mg capsule Take 200 mg by mouth twice daily with meals. Taking Yes traMADol (ULTRAM) 50 mg tablet Take 50 mg by mouth every 6 hours as needed. Taking Yes MYRBETRIQ 50 mg Tb24 Take 50 mg by mouth once daily. Taking Yes ferrous sulfate 325 mg (65 mg iron) tablet TAKE 1 TABLET BY MOUTH 3 TIMES A DAY FOR 28 DAYS Taking Yes cholecalciferol (VITAMIN D3) 1,000 unit tab tablet Take 1,000 Units by mouth once daily. Taking Yes acetaminophen (TYLENOL) 500 mg tablet TAKE TWO TABLETS BY MOUTH EVERY 8 HOURS FOR PAIN Taking Yes gabapentin (NEURONTIN) 600 mg tablet Taking Yes naproxen (NAPROSYN) 500 mg tablet Take 500 mg by mouth once daily. Taking Yes oxyCODONE (ROXICODONE) 15 mg immediate release tablet Taking Yes pravastatin (PRAVACHOL) 10 mg ORAL tablet Take 1 tablet by mouth once daily. Taking Yes aspirin, enteric coated (ECOTRIN LOW STRENGTH) 81 mg ORAL EC tablet Take 1 tablet by mouth once daily. Taking Yes Medication Comments documented by Jenni Larkin LPN on 05/18/2014 at 1650. [facility] ER approved 05/18/14 thru 03/28/15 ALLERGIES Allergen Reactions - Tape [Adhesive Tape* Rash COVID VACCINATION STATUS: Fully vaccinated REVIEW OF SYSTEMS: PAIN ASSESSMENT: General: No weight loss, malaise or fevers. 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 No neurological symptoms or problems. Respiratory: No history of current cough or dyspnea, or pneumonia in the past 6 weeks. No history of respiratory/pulmonary symptoms or problems. Cardiovascular: No history of HTN requiring medication, no history of angina, CHF, NH, cardiac surgery or stents. Denies rest pain, gangrene or revascularization/amp utation for PVD. No history of cardiovascular symptoms or problems. +HLD GI: No history of GI symptoms or problems. No history of esophageal varices, recent ascites, or ETOH greater than 2 drinks per day. 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 : Denies, No LMP recorded. Patient is postmenopausal. Endocrine: No history of diabetes. Has not taken steroids within the past 30 days. No history of endocrinological symptoms or problems. Hematology: No history of bleeding or clotting disorder. Pt is not taking anti-coagulation or platelet medications. No history of hematological symptoms or problems. Oncology: No history of CA metastasis, chemo within 30 days, or radiotherapy within 90 days. Has not lost 10% of body wt in 6 months. No history of oncological symptoms or problems. + R Breast 2007 Mastectomy Psych: No history of psychiatric symptoms or problems. Musculoskeletal: Negative for joint pain or swelling, back pain or muscle pain. +S/p L total knee Skin: Negative for lesions, rash and itching. Objective PHYSICAL EXAM: VITALS: BP 139/85 Pulse 101 Temp 97 Resp 16 Ht 5' 3.5 (1.61m) Wt 206 lb (93.4kg) SpO2 (more content not included)... Normal [facility] US CAROTID ART BILon --2 022 US CAROTID ART FRACISCO EXAMINATION: US CAROTID ART FRACISCO HISTORY: Cardiovascular symptoms COMPARISON: No relevant comparison available. TECHNIQUE: Duplex Doppler ultrasound analysis of carotid and vertebral arteries. . Bilateral carotid arterial duplex examination was performed using B-mode, color flow and spectral analysis. Carotid stenosis is reported according to validated velocity parameters, similar to NASCET criteria. FINDINGS: RIGHT CAROTID ARTERY Mild atherosclerotic plaque Subclavian: PSV: 127.5 cm/s cm/s EDV: 6.3 cm/s cm/s CCA: Prox: PSV: 106.4 cm/s cm/s EDV: 24.1 cm/s cm/s Mid: PSV: 74.9 cm/s cm/s EDV: 15.4 cm/s cm/s Distal: PSV: 58.1 cm/s cm/s EDV: 16.4 cm/s cm/s BULB: PSV: 59.2 cm/s cm/s EDV: 17.5 cm/s cm/s ICA: Prox: PSV: 63.6 cm/s cm/s EDV: 15.6 cm/s cm/s Mid: PSV: 77.5 cm/s cm/s EDV: 23.5 cm/s cm/s Distal: PSV: 77.5 cm/s cm/s EDV: 24.5 cm/s cm/s ECA: PSV: 68.0 cm/s cm/s EDV: 8.7 cm/s cm/s VERTEBRAL: PSV: 24.6 cm/s cm/s EDV: 7.6 cm/s cm/s ICA/CCA ratio: PSV: 1.3 EDV: 1.4 LEFT CAROTID ARTERY Mild atherosclerotic plaque Subclavian: PSV: 106.0 cm/s cm/s EDV: 18.0 cm/s CCA: Prox: PSV: 76.8 cm/s cm/s EDV: 18.6 cm/s Mid: PSV: 77.9 cm/s cm/s EDV: 21.9 cm/s Distal: PSV: 62.5 cm/s cm/s EDV: 16.4 cm/s BULB: PSV: 45.3 cm/s cm/s EDV: 2.5 cm/s ICA: Prox: PSV: 60.1 cm/s cm/s EDV: 20.8 cm/s Mid: PSV: 82.3 cm/s cm/s EDV: 30.7 cm/s Distal: PSV: 92.2 cm/s cm/s EDV: 30.7 cm/s ECA: PSV: 70.2 cm/s cm/s EDV: 16.4 cm/s VERTEBRAL: PSV: 44.8 cm/s cm/s EDV: 14.2 cm/s ICA/CCA ratio: PSV: 1.5 EDV: 1.9 Right thyroid nodule measuring 1.4 cm IMPRESSION: 0-49% flow stenosis in the internal carotid arteries 1.4 cm right thyroid nodule Spectral Doppler US Thresholds (Reference: Manoj EG, et al. Radiology 2000; 214:247-252) Stenosis (%) PSV (cm/sec) VICA/VCCA 0-49 <150 <2.5 50-69 150-225 2.5-4.0 >70 >225 >4.0 Electronically authenticated by: EDWARDO MANE Date: 2021-04-29 07:05 Normal [facility] Covid-19 PCR (CVDTBH)on SARS-CoV-2 (COVID-19) RNA ITZEL+probe Ql (Unsp spec) Detected Critically abnormal NOT DETECTED [facility] Comment on above: Result Comment: This test is not yet approved or cleared by the [place] FDA. When there are no FDA-approved or cleared tests available, and other criteria are met, FDA can make tests available under an emergency access mechanism called an Emergency Use Authorization (EUA). The EUA for this test is supported by the [place] of Health and Human Service's (HHS's) declaration that circumstances exist to justify the emergency use of in vitro diagnostics for the detection and/or diagnosis of the virus that causes COVID-19. This EUA will remain in effect (meaning this test can be used) for the duration of the COVID-19 declaration justifying emergency of IVDs, unless it is terminated or revoked by FDA (after which the test may no longer be used). Performed By: #### C VDTBH #### [facility] [address] [place] [address] Dr. Марина Lang THYROID ANTIBODIESon 022 Thyroglobulin Antibody <1.0 Normal 0.0-0.9 [facility] Comment on above: Result Comment: Thyr oglobulin Antibody measured by [employer] Method[employer] Performed By: #### T HYSONAL #### [facility] [address] [place] [address] Dr. Марина Lang Thyroid Peroxidase (TPO) Ab <8 Normal 0-34 [facility] Comment on above: Performed By: #### T LEIGHBS #### [facility] [address] [place] [address] [address] Марина Lang CBC AUTO DIFFon 04-01-2021 BASO # 0.1 103/ul Normal 0.0-0.1 [facility] Comment on above: Performed By: #### C BC #### [facility] [address] [place] [address] Dr. Марина Lang Basophils/100 WBC (Bld) 0.9 % Normal 0.2-2.0 [facility] Comment on above: Performed By: #### C BC #### [facility] [address] [place] [address] Dr. Марина Lang EO # 0.3 103/ul Normal 0.0-0.7 [facility] Comment on above: Performed By: #### C BC #### [facility] [address] [place] [address] Dr. Марина Lang Eosinophils/100 WBC (Bld) 5.7 % Normal 0.9-7.0 [facility] Comment on above: Performed By: #### C BC #### [facility] [address] [place] [address] Dr. Марина Lang Erythrocyte distribution width (RBC) [Ratio] 14.0 % Normal 11.0-15.0 [facility] Comment on above: Performed By: #### C BC #### [facility] [address] [place] [address] Dr. Марина Lang Hematocrit (Bld) [Volume fraction] 40.5 % Normal 36.0-48.0 [facility] Comment on above: Performed By: #### C BC #### [facility] [address] [place] [address] Dr. Марина Lang Hemoglobin (Bld) [Mass/Vol] 12.3 g/dL Normal 12.0-16.0 [facility] Comment on above: Performed By: #### C BC #### [facility] [address] [place] [address] Dr. Марина Lang IG # 0.01 10e3/ul Normal 0.00-0.03 [facility] Comment on above: Performed By: #### C BC #### [facility] [address] [place] [address] Dr. Марина Lang IG % 0.2 % Normal 0.0-0.5 [facility] Comment on above: Performed By: #### C BC #### [facility] [address] [place] [address] Dr. Марина Lang LYMPH # 1.5 103/ul Normal 1.2-3.8 [facility] Comment on above: Performed By: #### C BC #### [facility] [address] [place] [address] Dr. Марина Lang Lymphocytes/100 WBC (Bld) 27.9 % Normal 20.5-60.0 [facility] Comment on above: Performed By: #### C BC #### [facility] [address] [place] [address] Dr. Марина Lang MANUAL DIFF REQ NO Normal [facility] Comment on above: Performed By: #### C BC #### [facility] [address] [place] [address] Dr. Марина Lang MCH (RBC) [Entitic mass] 28.6 pg Normal 26.7-34.0 [facility] Comment on above: Performed By: #### C BC #### [facility] [address] [place] [address] Dr. Марина Lang MCHC (RBC) [Mass/Vol] 30.4 g/dL Normal 29.9-35.2 [facility] Comment on above: Performed By: #### C BC #### [facility] [address] [place] [address] Dr. Марина Lang MCV (RBC) [Entitic vol] 94.2 fL Normal 81.0-99.0 [facility] Comment on above: Performed By: #### C BC #### [facility] [address] [place] [address] Dr. Марина Lang MONO # 0.5 103/ul Normal 0.3-0.8 [facility] Comment on above: Performed By: #### C BC #### [facility] [address] [place] [address] Dr. Марина Lang Monocytes/100 WBC (Bld) 9.0 % Normal 1.7-12.0 [facility] Comment on above: Performed By: #### C BC #### [facility] [address] [place] [address] Dr. Марина Lang NEUT # 3.1 103/ul Normal 1.4-6.5 [facility] Comment on above: Performed By: #### C BC #### [facility] [address] [place] [address] Dr. Марина Lang Neutrophils/100 WBC (Bld) 56.3 % Normal 43.0-75.0 [facility] Comment on above: Performed By: #### C BC #### [facility] [address] [place] [address] Dr. Марина aLng Platelet mean volume (Bld) [Entitic vol] 9.9 fL Normal 9.5-13.5 [facility] Comment on above: Performed By: #### C BC #### [facility] [address] [place] [address] Dr. Марина Lang PLT 172 103/ul Normal 150-450 [facility] Comment on above: Performed By: #### C BC #### [facility] [address] [place] [address] Dr. Марина Lang RBC 4.30 106/ul Normal 4.20-5.40 [facility] Comment on above: Performed By: #### C BC #### [facility] [address] [place] [address] Dr. Марина Lang WBC 5.4 103/ul Normal 4.0-11.0 [facility] Comment on above: Performed By: #### C BC #### [facility] [address] [place] [address] Dr. Марина Lang FREE T4on 04-01-2021 Free T4 [Mass/Vol] 1.06 ng/dL Normal 0.78-2.19 [facility] Comment on above: Performed By: #### F T4 #### [facility] [address] [address] [address] Марина Lang GLYCOHEMOGLOBIN A1Con 2021 ADA RECOMMENDATION ADA THERAPEUTIC TARGET 6.0 - 7.0 ACTION SUGGESTED > 7.0 Normal [facility] Comment on above: Performed By: #### A 1C #### [facility] [address] [place] [address] Dr. Марина Lang Glucose [Mass/Vol] 131 mg/dL Normal [facility] Comment on above: Performed By: #### A 1C #### [facility] [address] [place] [address] Dr. Марина Lang HbA1c (Bld) [Mass fraction] 6.2 % Critically high <=6.0 [facility] Comment on above: Performed By: #### A 1C #### [facility] [address] [place] [address] Dr. Марина Lang PROF CHEM 8 (BAS METB)on Anion gap [Moles/Vol] 8.9 mmol/L Normal [facility] Comment on above: Performed By: #### B MP, TSH #### [facility] [address] [address] [address] Марина Lang Calcium [Mass/Vol] 10.0 mg/dL Normal 8.4-10.2 [facility] Comment on above: Performed By: #### B MP, TSH #### [facility] [address] [address] [address] Марина Lang Chloride [Moles/Vol] 105 mmol/L Normal 98-107 [facility] Comment on above: Performed By: #### B MP, TSH #### [facility] [address] [address] [address] Марина Lang CO2 [Moles/Vol] 35.0 mmol/L Critically high 22.0-30.0 [facility] Comment on above: Performed By: #### B MP, TSH #### [facility] [address] [place] [address] Dr. Марина Lang Creatinine [Mass/Vol] 1.10 mg/dL Critically high 0.52-1.04 [facility] Comment on above: Performed By: #### B MP, TSH #### [facility] [address] [address] [address] Марина Lang EGFR-AF GRENADIAN 59 mL/min/1.73m2 Critically low >=60 [facility] Comment on above: Performed By: #### B MP, TSH #### [facility] [address] [address] [address] Марина Lang EGFR-NON AF GRENADIAN 48 mL/min/1.73m2 Critically low >=60 [facility] Comment on above: Performed By: #### B MP, TSH #### [facility] [address] [address] [address] Марина Lang Glucose [Mass/Vol] 107 mg/dL Critically high 74-106 [facility] Comment on above: Performed By: #### B MP, TSH #### [facility] [address] [address] [address] Марина Lang Potassium [Moles/Vol] 4.9 mmol/L Normal 3.4-5.0 [facility] Comment on above: Performed By: #### B MP, TSH #### [facility] [address] [place] [address] Dr. Марина Lang Sodium [Moles/Vol] 144 mmol/L Normal 137-145 [facility] Comment on above: Performed By: #### B MP, TSH #### [facility] [address] [address] [address] Марина Lang Urea nitrogen [Mass/Vol] 17.0 mg/dL Normal 7.0-17.0 [facility] Comment on above: Performed By: #### B MP, TSH #### [facility] [address] [place] [address] Dr. Марина Lang Urea nitrogen/Creatinine [Mass ratio] 15.5 mg/mg Normal [facility] Comment on above: Performed By: #### B MP, TSH #### [facility] [address] [address] [address] Марина Lang TSHon 04-01-2021 TSH 2.603 uIU/mL Normal 0.470-4.680 [facility] Comment on above: Performed By: #### B MP, TSH #### [facility] [address] [place], [place] [address] Dr. Марина Lang TSH RANGE SEE BELOW Normal [facility] Comment on above: Result Comment: <0.3 4 UIU/ml HYPERTHYROID 0.34-5.60 UIU/ml EUTHYROID >5.60 UIU/ml HYPOTHYROID Performed By: #### B MP, TSH #### [facility] [address], [place] [address] Dr. Марина Lang IOL BIOMETRY W/ IOL CALC OU (BOTH EYES) [facility] Social History Date Type Detail Facility Start: 07-30-2021 End: 08-20-2021 Alcohol intake Current drinker of alcohol (finding) [facility] Start: 06-29-2021 End: 08-06-2021 Exposure to SARS-CoV-2 (event) Not sure [facility] Start: 12-25-2010 End: 07-21-2021 Tobacco smoking status NHIS Never smoked tobacco [facility] Start: 12-25-2010 Tobacco use and exposure Smokeless tobacco non-user [facility] Start: 12-25-2010 History SDOH Alcohol Comment very rare [facility] Start: 1945 Sex Assigned At Female [facility] Sex Assigned At Sex Assigned At [facility] Season Other Vital Signs Date Time Vital Sign Value Performing Clinician Facility 06-02-2023 09:33-0500 Body height 160.02 cm MD Oumar Gunter Work Phone: [facility] 06-02-2023 09:33-0500 Body mass index (BMI) [Ratio] 33.6 kg/m2 MD Oumar Gunter Work Phone: [facility] 06-02-2023 09:33-0500 Body weight 86.18 kg MD Oumar Gunter Work Phone: [facility] 06-02-2023 09:33-0500 Diastolic blood pressure 79 mm[Hg] MD Oumar Gunter Work Phone: [facility] 06-02-2023 09:33-0500 Heart rate 120 /min MD Oumar Gunter Work Phone: [facility] 06-02-2023 09:33-0500 Systolic blood pressure 119 mm[Hg] MD Oumar Gunter Work Phone: [facility] 03-10-2023 10:00-0500 Body height 160.02 cm Oumar Gunter Other [facility] [employer] Other 03-10-2023 10:00-0500 Body mass index (BMI) [Ratio] 34.68 kg/m2 Oumar Gunter Other [facility] Other 03-10-2023 10:00-0500 Body weight 88.81 kg Oumar Gunter Other [email or web address] Other 03-10-2023 10:00-0500 Diastolic blood pressure 70 mm[Hg] Oumar Gunter Other [email or web address] Other 03-10-2023 10:00-0500 Systolic blood pressure 136 mm[Hg] Oumar Gunter Other [email or web address] Other 03-09-2023 11:20-0500 Body height 160.02 cm Myra Other [email or web address] Other 03-09-2023 11:20-0500 Body mass index (BMI) [Ratio] 34.72 kg/m2 Myra Other [email or web address] Other 03-09-2023 11:20-0500 Body weight 88.91 kg Myra Other [email or web address] Other 03-09-2023 11:20-0500 Diastolic blood pressure 70 mm[Hg] Myra Other [email or web address] Other 03-09-2023 11:20-0500 Respiratory rate 20 /min Myra Other [email or web address] Other 03-09-2023 11:20-0500 SaO2% (BldA) [Mass fraction] 92 % Myra Other [email or web address] Other 03-09-2023 11:20-0500 Systolic blood pressure 132 mm[Hg] Myra Other [email or web address] Other 02-08-2023 10:00-0500 Body height 160.02 cm Myra Other [email or web address] Other 02-08-2023 10:00-0500 Body mass index (BMI) [Ratio] 34.54 kg/m2 Myra Other [email or web address] Other 02-08-2023 10:00-0500 Body weight 88.45 kg Myra Other [email or web address] Other 02-08-2023 10:00-0500 Diastolic blood pressure 74 mm[Hg] Myra Other [email or web address] Other 02-08-2023 10:00-0500 Respiratory rate 18 /min Myra Other [email or web address] Other 02-08-2023 10:00-0500 SaO2% (BldA) [Mass fraction] 94 % Myra Other [email or web address] Other 11-13-2023 10:00-0500 Systolic blood pressure 132 mm[Hg] Linda Renteria Other [email or web address] Other 09-08-2022 10:30-0400 Body height 160.02 cm Oumar Gunter Other [email or web address] Other 09-08-2022 10:30-0400 Body mass index (BMI) [Ratio] 34.18 kg/m2 Oumar Gunter Other [email or web address] Other 09-08-2022 10:30-0400 Body weight 87.54 kg Oumar Gunter Other [email or web address] Other 09-08-2022 10:30-0400 Diastolic blood pressure 76 mm[Hg] Oumar Gunter Other [email or web address] Other 09-08-2022 10:30-0400 Systolic blood pressure 134 mm[Hg] Oumar Gunter Other [email or web address] Other 07-02-2022 10:45-0400 Body height 160.02 cm Miguel Dallas II Other [email or web address] Other 07-02-2022 10:45-0400 Body mass index (BMI) [Ratio] 35.6 kg/m2 Miguel Dallas II Other [email or web address] Other 07-02-2022 10:45-0400 Body weight 91.17 kg Miguel Dallas II Other [email or web address] Other 09-04-2021 10:45-0400 Body height 160.02 cm Miguel Dallas II Other [email or web address] Other 09-04-2021 10:45-0400 Body mass index (BMI) [Ratio] 35.6 kg/m2 Miguel Saw II Other [email or web address] Other 09-04-2021 10:45-0400 Body weight 91.17 kg Miguel Adameisle II Other [email or web address] Other 08-07-2021 16:30-0400 Body height 160.02 cm Miguel Adameisle II Other [email or web address] Other 08-07-2021 16:30-0400 Body mass index (BMI) [Ratio] 35.6 kg/m2 Miguel Adameisle II Other [email or web address] Other 08-07-2021 16:30-0400 Body weight 91.17 kg Miguel Rodríguezle II Other [email or web address] Other 07-30-2021 09:12-0400 Body height 161.3 cm Pacc 1 Work Phone: [facility] 07-30-2021 09:12-0400 Body temperature 97 [degF] Pacc 1 Work Phone: [facility] 07-30-2021 09:12-0400 Body weight 93.44 kg Pacc 1 Work Phone: [facility] 07-30-2021 09:12-0400 Diastolic blood pressure 85 mm[Hg] Pacc 1 Work Phone: [facility] 07-30-2021 09:12-0400 Heart rate 101 /min Pacc 1 Work Phone: [facility] 07-30-2021 09:12-0400 Respiratory rate 16 /min Pacc 1 Work Phone: [facility] 07-30-2021 09:12-0400 SaO2% (BldA) [Mass fraction] 96 % Pacc 1 Work Phone: [facility] 07-30-2021 09:12-0400 Systolic blood pressure 139 mm[Hg] Pacc 1 Work Phone: [facility] 07-21-2021 12:30-0400 Diastolic blood pressure 78 mm[Hg] MD Oumar Gunter Work Phone: [facility] 07-21-2021 12:30-0400 Heart rate 98 /min MD Oumar Gunter Work Phone: [facility] 07-21-2021 12:30-0400 Respiratory rate 16 /min MD Oumar Gunter Work Phone: [facility] 07-21-2021 12:30-0400 SaO2% (BldA) [Mass fraction] 94 % MD Oumar Gunter Work Phone: [facility] 07-21-2021 12:30-0400 Systolic blood pressure 146 mm[Hg] MD Oumar Gunter Work Phone: [facility] 07-21-2021 12:00-0400 Inhaled oxygen flow rate 1 L/min MD Oumar Gunter Work Phone: [facility] 07-21-2021 10:21-0400 Body temperature 97.2 [degF] MD Oumar Gunter Work Phone: [facility] 07-21-2021 07:16-0400 Body height 161.29 cm MD Oumar Gunter Work Phone: [facility] 07-21-2021 07:16-0400 Body mass index (BMI) [Ratio] 35.7 kg/m2 MD Oumar Gunter Work Phone: [facility] 07-21-2021 07:16-0400 Body weight 93 kg MD Oumar Gunter Work Phone: [facility] 07-04-2021 10:30-0400 Body height 160.02 cm Miguel Schultz II Other [email or web address] Other 07-04-2021 10:30-0400 Body mass index (BMI) [Ratio] 35.42 kg/m2 Miguel Schultz II Other [email or web address] Other 07-04-2021 10:30-0400 Body weight 90.72 kg Miguel Schultz II Other [email or web address] Other 05-28-2021 11:15-0500 Body height 160.02 cm Miguel [employer] Other [email or web address] Other 05-28-2021 11:15-0500 Body mass index (BMI) [Ratio] 35.6 kg/m2 Miguel [employer] Other [email or web address] Other 05-28-2021 11:15-0500 Body weight 91.17 kg Miguel Schultz II Other [email or web address] Other Clinical Notes 02-05-2021 to 05-04-2023 Note Date & Type Note Facility 05-04-2023 Evaluation note Encounter Date Diagnosis Assessment Notes Apr, Neuropathic pain, leg, bilateral (ICD-10 - G57.93) [email or web address] Other 12-13-2023 Evaluation note* Encounter Date Diagnosis Assessment Notes Treatment Notes Treatment Clinical Notes Feb, Neuropathic pain, leg, bilateral (ICD-10 - G57.93) Reviewed [place]. Denies over-sedation w present meds. States has narcan at the house. Understands controlled substances are very concerning. Discussed paperwork from her insurance. She is controlled on present meds and doses for chronic neuropathic pain. Feb, Pulmonary HTN (ICD-10 - I27.20) Reviewed notes from Cardiology - followup in 1 yr. [email or web address] Other 12-12-2023 Evaluation note* Encounter Date Diagnosis Assessment Notes Treatment Notes Treatment Clinical Notes Feb, Pulmonary HTN (ICD-10 - I27.20) Ms Ayers is a 77yoF with PMH of hypertension, osteoarthritis, repots hx of CHF in 2002 to due to stress, hx of L breast cancer s/p bilateral mastectomy in 2009-no chemo or radiation. Referred by Dr Oumar Gunter for abnormal echocardiogram. Echo preformed at [facility] 12/29/2022 showed EF 55-60% with normal diastolic function. Normal RV size and function with RVSP of 37 mmHg.. Patient states she has experienced SOB and diaphoresis for approximately the last 6 months, denies CP or palpitations, BLE edema, orthopnea, PND or weight gain. 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 She admits to being exposed to fumes during this time Recent work up: - Stress MPI obtained 03/03/23 was normal. - PFTs 03/03/23 showed moderate obstruction without evidence of a significant bronchodilator response to suggest a moderate fixed obstructive ventilatory defect consistent with COPD. Assessment: -Chronic dyspnea- Recent PFTs consistent with COPD.Pt has longstanding exposure to paint fumes. -Normal stress MPI. No concern for ischemic component of dyspnea. -Mild pulmonary hypertension- WHO group III in the setting of untreataed COPD (RVSP 37 mmHg with normal RV size and function) Plan: - Will obtain CXR and send referral to pulmonology for COPD optimization - Pt has PCP follow up tomorrow. Will defer rescue inhaler and long acting agents to PCP if close Pulmonology follow up is not available. - BP well controlled. Continue lisinopril 5 mg daily. - Follow up in 1 year Feb, Shortness of breath (ICD-10 - R06.02) Feb, Diaphoresis (ICD-10 - R61) Feb, Moderate COPD (chronic obstructive pulmonary disease) (ICD-10 - J44.9) [email or web address] Other 12-06-2023 Evaluation note* Encounter Date Diagnosis Assessment Notes Treatment Notes Treatment Clinical Notes Feb, Neuropathic pain, leg, bilateral (ICD-10 - G57.93) [email or web address] Other 11-20-2023 Evaluation note* Encounter Date Diagnosis Assessment Notes Treatment Notes Treatment Clinical Notes Jan, Pulmonary HTN (ICD-10 - I27.20) [email or web address] Other 11-13-2023 Evaluation note* Encounter Date Diagnosis Assessment Notes Treatment Notes Treatment Clinical Notes Jan, Pulmonary HTN (ICD-10 - I27.20) Ms Ayers is a 77yoF with PMH of hypertension, osteoarthritis, repots hx of CHF in 2002 to due to stress, hx of L breast cancer s/p bilateral mastectomy in 2009-no chemo or radiation. Referred by Dr Oumar Gunter for abnormal echocardiogram. Echo preformed at [facility] 12/29/2022 showed EF 55-60% with normal diastolic function. Normal RV size and function with RVSP of 37 mmHg.. Patient states she has experienced SOB and diaphoresis for approximately the last 6 months, denies CP or palpitations, BLE edema, orthopnea, PND or weight gain. 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 She admits to being exposed to fumes during this time Assessment: Chronic dyspnea and fatigue-May represent anginal equivalent Plan: EKG today shows normal sinus rhythm with left anterior fascicular block. Poor R wave progression -Will plan for stress MPI to rule out ischemia -PFTs given longstanding history of exposure to fumes. -No concern for pulmonary hypertension. RVSP 37 mmHg with normal RV size and function. If above testing is negative, can consider RHC in future. Jan, Shortness of breath (ICD-10 - R06.02) Jan, Diaphoresis (ICD-10 - R61) [email or web address] Other 11-06-2023 Evaluation note* Encounter Date Diagnosis Assessment Notes Treatment Notes Treatment Clinical Notes Jan, Neuropathic pain, leg, bilateral (ICD-10 - G57.93) [email or web address] Other 10-05-2023 Evaluation note* Encounter Date Diagnosis Assessment Notes Treatment Notes Treatment Clinical Notes Dec, Acute thoracic back pain, unspecified back pain laterality (ICD-10 - M54.6) [email or web address] Other 07-06-2023 Evaluation note* Encounter Date Diagnosis Assessment Notes Treatment Notes Treatment Clinical Notes Sep, Acute thoracic back pain, unspecified back pain laterality (ICD-10 - M54.6) [email or web address] Other 06-13-2023 Evaluation note* Encounter Date Diagnosis Assessment Notes Treatment Notes Treatment Clinical Notes Aug, OAB (overactive bladder) (ICD-10 - N32.81) States med does help - requests refill Aug, Word finding difficulty (ICD-10 - R47.89) Agrees to MRI and referral to Neurology for further recommendations. Discussed area of brain that controls our speech and relates to words. Pt expresses understanding.. 13 Aug, 2022 Peripheral neuropathic pain (ICD-10 - M79.2) Requests refill. Aug, Pain in thoracic spine (ICD-10 - M54.6) Reviewed OARRS report. States that present medications do control her symptoms. [email or web address] Other 04-07-2023 Evaluation note* Encounter Date Diagnosis Assessment Notes Treatment Notes Treatment Clinical Notes Jun, Acute thoracic back pain, unspecified back pain laterality (ICD-10 - M54.6) [email or web address] Other 04-06-2023 Evaluation note* Encounter Date Diagnosis Assessment Notes Treatment Notes Treatment Clinical Notes Jun, Primary osteoarthritis of left knee (ICD-10 - M17.12) Jun, Aftercare following joint replacement surgery (ICD-10 - Z47.1) Jun, Presence of left artificial knee joint (ICD-10 - Z96.652) Jun, Other [facility] at [facility] on 07/21/2021 Happy with surgical result Follow up yearly with standing AP and lateral xrays of the left knee Patient instructed to call with any questions or concerns. [email or web address] Other 06-23-2022 Evaluation note* Encounter Date Diagnosis Assessment Notes Treatment Notes Treatment Clinical Notes Aug, Primary osteoarthritis of left knee (ICD-10 - M17.12) Aug, Aftercare following joint replacement surgery (ICD-10 - Z47.1) Aug, Presence of left artificial knee joint (ICD-10 - Z96.652) Aug, Other [facility]KA at [facility] on 07/21/2021 Overall doing very well. The Medrol Dosepak seem to help her significantly with the inflammation. She can continue activities as tolerated and continue working with physical therapy as recommended. Follow-up in 4 weeks for repeat examination and long standing x-rays. [email or web address] Other 06-09-2022 Evaluation note* Encounter Date Diagnosis Assessment Notes Treatment Notes Treatment Clinical Notes Aug, Primary osteoarthritis of left knee (ICD-10 - M17.12) Aug, Aftercare following joint replacement surgery (ICD-10 - Z47.1) Aug, Presence of left artificial knee joint (ICD-10 - Z96.652) Aug, Other [facility] at [facility] on 07/21/2021 Doing well. We will get her on a Medrol Dosepak to try and help with some of this inflammation I think that is going on in that knee. I will see her back in 2 weeks just to recheck to make sure she is continuing to improve. Patient may continue activities as tolerated. Continue PT as recommended. Continue taking [id number] anti-inflammatorie s as needed for assistance with swelling and pain associated with the operative extremity. Follow-up in 2 for a recheck and then 4 weeks for repeat examination and long standing x-rays. [email or web address] Other 05-25-2022 NoteHNO ID: [id number] Author: Mary Pacheco OD Service: ? 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 Patient is doing well today for 7-10 day post op cataract surgery left eye, aim plano. Vision limited by mac scar Continue to use the following drops in the operative eye: 1. Prednisolone Acetate 4 times a day for 10 days after surgery and then taper as indicated on the provided drop schedule. 2. Ketorolac 4 times a day for 10 days after surgery and then taper as indicated on the provided drop schedule. Continue with restrictions as previously instructed. Advised to continue to self-monitor for changes to vision or ocular health and return promptly with symptoms. Patient instructed to check each eye separately and daily. OK to use artificial tears four times per day; avoid using within 5 minutes of other drops. Return to clinic today OD sx. I have confirmed and edited as necessary the relevant ophthalmic history, ROS, and the exam findings as obtained by others. I have seen and examined this patient. I have discussed the case and the management of this patient's care with the resident or fellow as appropriate. I also have reviewed and agree with the assessment and plan as stated above and agree with all of its relevant components. 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 Patient is doing well today for 7-10 day post op cataract surgery left eye, aim plano. Vision limited by mac scar Continue to use the following drops in the operative eye: 1. Prednisolone Acetate 4 times a day for 10 days after surgery and then taper as indicated on the provided drop schedule. 2. Ketorolac 4 times a day for 10 days after surgery and then taper as indicated on the provided drop schedule. Continue with restrictions as previously instructed. Advised to continue to self-monitor for changes to vision or ocular health and return promptly with symptoms. Patient instructed to check each eyeseparately and daily. OK to use artificial tears four times per day; avoid using within 5 minutes of other drops. Return to clinic today OD sx. I have confirmed and edited as necessary the relevant ophthalmic history, ROS, and the exam findings as obtained by others. I have seen and examined this patient. I have discussed the case and the management of this patient's care with the resident or fellow as appropriate. I also have reviewed andagree with the assessment and plan as stated above and agree with all of its relevant components. Mary Pacheco OD August 20, 2021 8:55 AM [facility]* Encounter Date Diagnosis Assessment Notes Treatment Notes Treatment Clinical Notes July, Primary osteoarthritis of left knee (ICD-10 - M17.12) July, Aftercare following joint replacement surgery (ICD-10 - Z47.1) July, Presence of left artificial knee joint (ICD-10 - Z96.652) July, Other [facility] at [facility] on 07/21/2021 Doing well. Zipline removed. Steri-Strips applied. Patient may continue activities as tolerated. They are weightbearing as tolerated to the operative extremity and will begin outpatient PT. Patient takes 15 mg oxycodone 3 times daily at baseline. She has not really needed any of the 5 mg tablets for breakthrough nor if she needed any of the tramadol. They will continue to take Celebrex and Tylenol as needed for assistance with swelling and pain associated with the operative extremity. Patient to continue their aspirin DVT prophylaxis as previously instructed. This includes wearing their CLIFFORD hose on the operative extremity for another two weeks. Follow-up in 4 weeks for repeat examination and 3 view x-rays of the left knee. [email or web address] Other 05-12-2022 NoteHNO ID: [id number] Author: Mary Pacheco OD Service: ? Author Type: BLUEPRINT TRIMMER Type: Progress Notes Filed: 08/07/2021 9:08 AM Note Text: Post-op day #1 status-post cataract extraction with intraocular lens insertion, left eye. Doing well. Aim plano. Vision limited by central mac scar from POHS. Written instructions detailing the following given: Prednisolone Acetate 1% 1 drop four times a day Ketorolac 0.5% 1 drop four times a day - Eye shield at bedtime for 10 days - Signs and symptoms of retinal detachment and infection reviewed - Follow up in 7-10 days as scheduled I have interviewed and examined Catherine Alcocerkalpeshbrain. I have confirmed and edited as necessary the chief complaint, history of present illness, past medical history, medications, family history, social history, review of systems, and exam findings as obtained by others. I agree with the assessment and plan as stated above. Mary Pacheco OD August 07, 2021 8:59 [facility]05-12-2022 History of Present illness Narrative* Mary Pacheco, OD - 08/07/2021 8:58 AM EDT Post-op day #1 status-post cataract extraction with intraocular lens insertion, left eye. Doing well. Aim plano. Vision limited by central mac scar from POHS. Written instructions detailing the following given: Prednisolone Acetate 1% 1 drop four times a day Ketorolac 0.5% 1 drop four times a day - Eye shield at bedtime for 10 days - Signs and symptoms of retinal detachment and infection reviewed - Follow up in 7-10 days as scheduled I have interviewed and examined Catherine Ayers. I have confirmed and edited as necessary the chief complaint, history of present illness, past medical history, medications, family history, social history, review of systems, and exam findings as obtained by others. I agree with the assessment and plan as stated above. Mary Pacheco, OD August 07, 2021 8:59 AM documented in this encounterA[facility]05-[facility]22 NoteHNO ID: [id number] Author: PARK Cedeño Service: ? Author Type: Machine Stuffer Automatic Type: Progress Notes Filed: 07/30/2021 10:04 AM Note Text: CONFIRM AIM PLANO BOTH EYES. IQ IOL PATIENT AWARE THAT HE WILL NEED GLASSES FOR ALL DISTANCES. [facility] History of Present illness Narrative* PARK Cedeño - 07/30/2021 10:00 AM EDT CONFIRM AIM PLANO BOTH EYES. IQ IOL PATIENT AWARE THAT HE WILL NEED GLASSES FOR ALL DISTANCES. PARK Cedeño documented in this encounterAdena [facility]05-04-2022 Instructions* Patient Instructions* Shikha Kate APRN.FOOD SELECTOR - 07/30/2021 9:23 AM EDT PATIENT PREOPERATIVE INSTRUCTIONS Jennifer Jones V, MD has scheduled you for your procedure at this surgery center: [facility]: [phone] --[address] [facility] [place] [address]. Please read below carefully for your personalized instructions. Dietary Restrictions: - Nothing to eat or drink after midnight except for a sip of water with approved medications. Medications: Unless instructed differently below, stay on all of your medications until your surgery. Approved medications to take the morning of surgery with a sip of water: NONE - Please continue your current pain medications. If you start any new medications after today's visit, please contact the surgeon's office. Important Reminders: - Candy, mints, and tobacco products are NOT permitted the morning of surgery. - Hearing aids, dentures and glasses may be worn the morning of surgery. - NO jewelry, body piercings, makeup, hairpins or contacts are to be worn the day of surgery. If you develop symptoms such as a fever, cold, or flu, or have other changes to your health within TWO DAYS of scheduled surgery or the morning of surgery, please contact the surgery center above. Personal Belongings: -Please have photo ID and insurance cards. -If you do not have a copy of advance directives on file with us, please bring a copy with you on the day of surgery. - Leave ALL valuables and money at home or with family members. Arrival Time for Surgery: - The Surgery Center or hospital where you are having surgery will call the afternoon before surgery (or Wednesday for Wednesday surgery) with a scheduled arrival time. - If you have not heard by 4 pm, please contact the surgery center above. Please be aware that emergency situations arise, which may delay or change your surgical time. If this happens, we will notify you as soon as possible and regret any inconvenience. If you already have an Advance Directive, please fax a copy to [phone] or email to for it to be added to your chart. If you do not have an Advance Directive, you can find the appropriate form and more information at [email or web address]. We recommend that youcomplete the Advance Directive form found on the website and bring it with you the day of your surgery. It can be witnessed and scanned into your chart that day. Shikha aKte APRN.CNP [facility] History and physical note * Shikha KateALFA.FOOD SELECTOR - 07/30/2021 8:51 AM EDT HISTORY AND PHYSICAL EXAMINATION SERVICE DATE: 07/30/2021 SERVICE TIME: 8:51 AM PRIMARY CARE PHYSICIAN: Oumar Gunter MD REASON FOR VISIT: Catherine Ayers is a 76 year old female who is scheduled for Bilateral Cataracts at the request of Dr. Jennifer Jones V for consultation. My final recommendation will be communicated back to the requesting physician by way of shared medical record or letter. The patient has the following: ACTIVE PROBLEM LIST Burning Sensation Neuropathic Pain Crps (Complex Regional Pain Syndrome) Type I Other Hyperlipidemia Breast Cancer (Hcc) Congestive Heart Failure (Hcc) Subjective CHIEF COMPLAINT: Visual Disturbance HPI: 76 year old year old Female presents today for evaluation. Found to have cataract on exam. Denies pain. No relieving factors. PAST MEDICAL HISTORY Diagnosis Date Breast cancer (HCC) Chronic back pain Congestive heart failure (HCC) Histoplasmosis Hyperlipidemia Hypertension Macular degeneration PAST SURGICAL HISTORY Procedure Laterality Date AFTER ATTEMPTED -GLOBAL PAST SURGICAL HISTORY OF 03/29/2006 Double masectomy with implants PAST SURGICAL HISTORY OF SCS ([employer]) TOTAL KNEE REPLACEMENT Left FAMILY HISTORY Problem Relation Age of Onset COPD Mother Asthma Mother Ischemic Heart Disease Father Ischemic Heart Disease Brother COPD Sister SOCIAL HISTORY: Social History Tobacco Use Smoking status: Never Smoker Smokeless tobacco: Never Used Substance Use Topics Alcohol use: Yes Comment: very rare--maybe 4 drinks a year. Drug use: No Prior to Admission medications as of 05/27/21 1205 Medication Sig Last Dose Taking celecoxib (CELEBREX) 200 mg capsule Take 200 mg by mouth twice daily with meals. Taking Yes traMADol (ULTRAM) 50 mg tablet Take 50 mg by mouth every 6 hours as needed. Taking Yes MYRBETRIQ 50 mg Tb24 Take 50 mg by mouth once daily. Taking Yes ferrous sulfate 325 mg (65 mg iron) tablet TAKE 1 TABLET BY MOUTH 3 TIMES A DAY FOR 28 DAYS Taking Yes cholecalciferol (VITAMIN D3) 1,000 unit tab tablet Take 1,000 Units by mouth once daily. Taking Yes acetaminophen (TYLENOL) 500 mg tablet TAKE TWO TABLETS BY MOUTH EVERY 8 HOURS FOR PAIN Taking Yes gabapentin (NEURONTIN) 600 mg tablet Taking Yes naproxen (NAPROSYN) 500 mg tablet Take 500 mg by mouth once daily. Taking Yes oxyCODONE (ROXICODONE) 15 mg immediate release tablet Taking Yes pravastatin (PRAVACHOL) 10 mg ORAL tablet Take 1 tablet by mouth once daily. Taking Yes aspirin, enteric coated (ECOTRIN LOW STRENGTH) 81 mg ORAL EC tablet Take 1 tablet by mouth once daily. Taking Yes Medication Comments documented by Jenni Larkin LPN on 05/18/2014 at 1650. [facility] approved 05/18/14 thru 03/28/15 ALLERGIES Allergen Reactions Tape [Adhesive Tape* Rash COVID VACCINATION STATUS: Fully vaccinated REVIEW OF SYSTEMS: PAIN ASSESSMENT: General: No weight loss, malaise or fevers. 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 No neurological symptoms or problems. Respiratory: No history of current cough or dyspnea, or pneumonia in the past 6 weeks. No history of respiratory/pulmonary symptoms or problems. Cardiovascular: No history of HTN requiring medication, no history of angina, CHF, NH, cardiac surgery or stents. Denies rest pain, gangrene or revascularization/amputation for PVD. No history of cardiovascular symptoms or problems. +HLD GI: No history of GI symptoms or problems. No history of esophageal varices, recent ascites, or ETOH greater than 2 drinks per day. 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 : Denies, No LMP recorded. Patient is postmenopausal. Endocrine: No history of diabetes. Has not taken steroids within the past 30 days. No history of endocrinological symptoms or problems. Hematology: No history of bleeding or clotting disorder. Pt is not taking anti- coagulation or platelet medications. No history of hematological symptoms or problems. Oncology: No history of CA metastasis, chemo within 30 days, or radiotherapy within 90 days. Has not lost 10% of body wt in 6 months. No history of oncological symptoms or problems. + R Breast 2007 Mastectomy Psych: No history of psychiatric symptoms or problems. Musculoskeletal: Negative for joint pain or swelling, back pain or muscle pain. +S/p L total knee Skin: Negative for lesions, rash and itching. Objective PHYSICAL EXAM: VITALS: BP 139/85 Pulse 101 Temp 97 Resp 16 Ht 5' 3.5 (1.61m) Wt 206 lb (93.4kg) SpO2 96% BMI 35.91 kg/(m^2). General: Alert and oriented Skin: Normal color, no rash, no lesions. HEENT: EOM, pupils equal, round and reactive. Cardiovascular: Normal S1 & S2, no rubs, murmurs or gallops. No JVD. Pulse regular. Lungs: Normal breath sounds, no wheezes or crackles. Extremities: No deformity, no edema or tenderness, no joint swelling or clubbing. Neurological: Normal cognition and motor skills. Pulses: Carotid and radial pulses normal +2. Diagnostic tests reviewed for today's visit: No new labs or tests Assessment/Plan Other hyperlipidemia Assessment: Continue statin Stable CRPS (complex regional pain syndrome) type I Assessment: stable On multiple pain medications METS: Walk indoors, such as around the house (1.75 METs) Partially dependent + s/p total knee 10 days ago ASA Class: 3 ANESTHESIA FINDINGS: Intubation History: No prior intubation Significant Anesthesia Considerations: None Airway Exam: General: Normal appearance Mallampati Score is CLASS II ULBT: Class II - Lower incisors can bite the upper lip below the kelly line Neck: Normal appearance and function, Short neck Mouth: Normal tongue size and Mouth opening greater than 2 finger breaths Dentition: Upper denture and Lower denture Airway History: No abnormal airway history Sleep Apnea Probability Snores loudly: No Tired, fatigued or sleepy in daytime: Yes Stops breathing or choking/gasping during sleep: No High blood pressure: No Sleep Apnea Probability Score 07/28/2021 Sleep Apnea Screen V2 33.26 (Sleep study not recommended) PLAN This patient is optimally prepared for surgery. CONSULTS: Patient does not require consults for optimization at this time. The Following Tests/Procedures Have Been Initiated: Labs not indicated per P[facility] protocol, EKG not indicated per [facility] protocol Planned Anesthetic: Per anesthesia choice Instructions Given to Patient: Instructions located in the after visit summary. Patient given verbal and written preop instructions and voices comprehension and compliance. SIGNATURE: Shikha Kate APRN.CNP PATIENT NAME: Catherine Ayers DATE: July 30, 2021 TIME: 8:51 AM documented in this encounterA[facility]04[facility] Evaluation note* Encounter Date Diagnosis Assessment Notes Treatment Notes Treatment Clinical Notes Jun, Other Prolonged Servi colby 1. H and P date: 07/04/2021 2. Diagnosis: Left knee primary osteoarthritis 3. Counseling: Counseling and education was provided at the patient's history and physical 4. Coordination of care: The patient was discussed at today's total joints meeting with anesthesia, OR staff, and implant reps in an effort to coordinate the patient's care during the perioperative period. The anesthesiologist was involved in discussions regarding the patient's pain management such as regional blocks, anesthesia plans the day of surgery such as general versus spinal, as well as a final review of lab work to ensure the patient could proceed with surgery safely. The application manager was vital for surgery timing and scheduling purposes. The implant rep was also available for necessary discussions regarding preoperative templates that were created on preoperative x-rays to ensure the appropriate implants and sizes of implants would be available the day of surgery. The patient's discharge plan was also discussed and the final decision was confirmed. 5. Medication Changes: None 6. Lab Tests: The patient's screening tests including albumin levels, vitamin D levels, hemoglobin, hemoglobin A1c, cotinine serum level, and MRSA nasal cultures were all reviewed to ensure appropriate perioperative care can be performed. This included selection of perioperative antibiotics, surgical dressing, and any contact precautions that may need to be enacted. The patient's presurgical testing lab work was also reviewed. This included a CBC, BMP, UA, fructosamine, and a blood type and screen. This lab work was discussed with anesthesia during today's total joints meeting to ensure the patient could proceed with surgery safely. 7. Review of reports/records: The surgical clearance information provided by the patient's PCP, Dr Gunter on 06/12/21, and if deemed necessary, other specialists, was reviewed. Any recommendations made by these care providers were taken into consideration for the patient's perioperative and postoperative treatment plans. Prolonged services time spent: 32 minutes [email or web address] Other 04-14-2022 Evaluation note* Encounter Date Diagnosis Assessment Notes Treatment Notes Treatment Clinical Notes Jun, Age-related osteoporosis without current pathological fracture (ICD-10 - M81.0) [email or web address] Other 04-08-2022 Evaluation note* Encounter Date Diagnosis Assessment Notes Treatment Notes Treatment Clinical Notes Jun, Primary osteoarthritis of left knee (ICD-10 - M17.12) Jun, Preop examination (ICD-10 - Z01.818) Jun, Other 1. Left TKA Home Medications - DVT prophylaxis: Aspirin - NSAID: Celebrex - Disposition: Same-day discharge-patient lives at home with her . We will need to check on her in phase 2 recovery for pain control given her high doses of oxycodone for baseline pain control. Joints Meeting Checklist - Pharmacy: [facility] to bed - Approach/Technique: ALICIA - Implants: Persona; stem - Anesthesia: General - Blocks: Adductor, iPACK - Preop Antibiotics: Ancef - TXA: yes-systemic - Positioning/OR Bed: supine on regular bed - Intraop X-ray: no - Marquis: no - Tourniquet: yes - Antibiotic powder: yes-2 grams of vanc - Antibiotic cement: No - Dressing: Zipline and Prevena 14-day The patient has tried and failed all conservative treatment options to include: activity modification, physical therapy, oral anti-inflammatories , and intra-articular steroid injections. We will move forward with the definitive treatment option and schedule the patient for the above mentioned procedure. The risks involved with surgery and postoperative complications were discussed in relation to the patient's non-modifiable risk factors including but not limited to the following: Hypertension Hypercholesterolemi a Neuropathy All questions were answered after discussing these increased risks. The patient voiced understanding of these increased risks and still wishes to proceed with surgery. The risks involved with surgery and postoperative complications were discussed in relation to the patient's modifiable risk factors including but not limited to the following: BMI 35.6 Chronic opioid use-I again discussed with the patient trying to take up to 3000 mg of Tylenol to decrease her oxycodone by half by the time we do surgery. She did not do this from her last visit until now. We spent even more time today discussing the importance of doing so to give her a better chance at a good outcome postoperatively. The patient and her both understand and will attempt to wean off of some of the oxycodone. All questions were answered after discussing these increased risks. The patient voiced understanding of these increased risks and still wishes to proceed with surgery. The risks and benefits of the surgery were reviewed in depth with the patient, and all questions were answered. Informed consent was obtained. The risks and potential complications of the surgery include, but are not limited to: avascular necrosis, nonunion, nerve injury, blood vessel injury, excessive bleeding, blood transfusion, infection, persistent pain, loss of fixation, failure of the implant, deep vein thrombosis, pulmonary embolus, loss of limb, fracture, leg length discrepancy, and . Patient voiced understanding of these risks and has elected to proceed with the above surgery. [email or web address] Other 03-02-2022 Evaluation note* Encounter Date Diagnosis Assessment Notes Treatment Notes Treatment Clinical Notes May, Primary osteoarthritis of left knee (ICD-10 - M17.12) The patient has demonstrated all indications for proceeding with total knee replacement. The patient is experiencing severe disabling knee pain which is affecting daily life and ability to ambulate. Conservative means of treatment including NSAIDS and other medication, intra-articulur injections, as well as gentle exercise have not been effective in relieving symptoms or are not indicated at this time It is now reasonable to proceed with total knee replacement. May, Age-related osteoporosis without current pathological fracture (ICD-10 - M81.0) May, On snf drug therapy (ICD-10 - Z79.899) May, Preop examination (ICD-10 - Z01.818) May, Other 1. Left TKA-in regards to timing, I think that she would still be okay from a rehab standpoint if we got her total knee taken care of before her cataract surgery. However, as I explained to the patient if any of her lab work is off or she needs further preoperative optimization, we may need to push back her surgery on her knee until after she is recovered from her cataract surgeries. - DVT prophylaxis: Aspirin - Antibiotics: Ancef - NSAID: Celebrex - Implants: Persona - Disposition: Same-day discharge-patient lives at home with her 2. Preop screening labs will be ordered including: - hemoglobin - serum albumin - 25-OH Vit D - HgbA1c - serum cotinine - MRSA nasal culture 3. Patient will obtain preop clearances including: -PCP 4. Once our office has reviewed the above labs and clearances, we will contact the patient to discuss surgery scheduling. Patient is in agreement with the above plan. 5. The risks involved with surgery and postoperative complications were discussed in relation to the patient's nonmodifiable risk factors including but not limited to the following: Hypertension Hypercholesterolemi a Neuropathy All questions were answered after discussing these increased risks. The patient voiced understanding of these increased risks and still wishes to proceed with surgery. 6. The risks involved with surgery and postoperative complications were discussed in relation to the patient's modifiable risk factors including but not limited to the following: Chronic opioid use-discussed with the patient attempting to take up to 3000 mg of Tylenol a day in attempts to decrease her oxycodone use by half by the time we do surgery. Patient understands by doing so she gives herself a better chance at a good outcome after surgery. BMI 35.6 All questions were answered after discussing these increased risks. The patient voiced understanding of these increased risks and still wishes to proceed with surgery. The patient has tried and failed all conservative treatment options to include: oral anti-inflammatories , intra-articular steroid injections, physical therapy, and assistive devices. We will move forward with the definitive treatment option and schedule the patient for the above mentioned procedure after we have reviewed screening labs and clearances. Patient understands abnormal screening labs or absent clearances could delay their surgery. [email or web address] Other 03-01-2022 NoteHNO ID: [id number] Author: Jennifer Jones V, MD Service: ? Author Type: Physician Type: Progress Notes Filed: 05/27/2021 1:01 PM Note Text: The documentation for this note was completed by Dianelys Mai, [facility] acting as a scribe for Jennifer JONES MD. 05/27/2021 12:53 PM. ASSESSMENT / PLAN: 1. Combined cataract, both eyes - Offered cataract extraction by phacoemulsification and intraocular lens implant with Dr. 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 No - Toric candidate: No [will require specs for protection] - SYMFONY / PanOptix candidate: No - Anesthesia: Topical with MAC - Contact lens use No - History of LASIK/PRK/RK No - Discussed initiate twice daily eyelid scrubs pending U/S biometry and surgery - Comanage with Dr Dang; [facility] POD #1 Cataract Presurgical Documentation Cataract: Both eyes (OU) Patient reported symptoms: Associated symptoms Positive for: Difficulty With Reading, glare Negative for: Itching, tearing, dryness, burning Current Visual Acuity: Right Eye Distance CC 20/20 Left Eye Distance CC 20/300 Best Corrected Vision Right Eye 20/20 Best Corrected Vision Left Eye NI Glare Testing: Right Eye High 20/50 Left Eye High BVCA 20/300 Visual Function: Catherine A Kiyabrain states that the decline in vision from the cataract impedes the ability to drive as well as other activities of daily living. Catherine Ayers has confirmed that she is no longer able to function adequately on a day-to-day basis because of her current visual condition. Further, it is my medical opinion that the cataract is the primary cause, or at least a significantly contributory cause of her visual dysfunction. With uncomplicated cataract surgery and lens implantation, it is my expectation that her visual function and quality of life will improve, significantly. The risks, benefits, alternatives, personnel and complications of cataract surgery with lens implantation were discussed with Catherine Ayers in detail. she appeared to understand and asked that I proceed with plans for surgery. Patient acknowledges possible need for glasses after procedure. Informed consent form signed by physician and patient. Literature regarding cataract and cataract extraction by phacoemulsification offered. Return for preadmission testing, biometry AND intraocular lens calculations prior to surgery. The patient was offered a surgery/procedure at a [facility] facility. The surgeon/proceduralist and patient have discussed in detail the risk of exposure to and/or potential harm posed by the COVID-19 virus with having a surgery/procedure at this time versus the risk of delaying the surgery/procedure. It is not possible to know either the risk of delaying the surgery or procedure or chance of getting an infection with perfect accuracy, but a joint decision was made between the patient and the surgeon/proceduralist to proceed at this time with the scheduled surgery/procedure as indicated on the consent form. 2. Glaucoma suspect of both eyes - ICD9: 365.00, ICD10: H40.003 Borderline IOPs, Ttoday 20/20 Cupping and thinner inferior rim Right eye Normal RNFL and GCL Right eye on OCT Average Pachs 545/547 The documentation recorded by the scribe accurately reflects the service I personally performed and the decisions made by me. I have confirmed and edited as necessary the relevant ophthalmic history, ROS, and the exam findings as obtained by others. I have seen and examined Catherine Ayers. I also have reviewed and agree with the assessment and plan as stated above and agree with all of its relevant components. Jennifer JONES MD May 27, 2021 12:53 [facility]03-01-2022 NoteHNO ID: [id number] Author: Scout Gayle, PAGE Service: ? Author Type: BLUEPRINT TRIMMER Type: Progress Notes Filed: 05/27/2021 1:02 PM Note Text: ASSESSMENT/PLAN: 1. Combined forms of age-related cataract of both eyes - ICD9: 366.19, ICD10: H25.813 (primary diagnosis) Dr Jennifer Jones Cataract evaluation 2. Glaucoma suspect of both eyes - ICD9: 365.00, ICD10: H40.003 Borderline IOPs, Ttoday 20/20 Cupping and thinner inferior rim Right eye Normal RNFL and GCL Right eye on OCT Average Pachs 545/547 Monocular patient 3. Chorioretinal scar of right eye - ICD9: 363.30, ICD10: H31.001 4. 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 I have seen and examined this patient. I also have reviewed and agree with the assessment and plan as stated above and agree with all of its relevant components. Scout Gayle, PAGE May 27, 2021 12:15 [facility]11-10-2021 NotePROCEDURE: XR KNEE LT 3V HISTORY: Pain in left knee ; anterior left knee pain for 2-3 months; no known injury COMPARISON: None. FINDINGS: BONES:Moderate narrowing of the medial joint space with periarticular degenerative osteophytes. Small osteophytes along the margins of the patella. SOFT TISSUES:No visible soft tissue swelling. EFFUSION:Moderate joint effusion. OTHER: Negative. IMPRESSION: 1. Moderate, bordering on marked degenerative joint disease of the medial compartment. 2. Moderate joint effusion. Electronically authenticated by: CIARRA [place] Date: 2021-02-05 16:48[facility] note* Diagnosis Combined forms of age-related cataract of both eyes Other and combined forms of senile cataract Combined forms of age-related cataract of both eyes Other and combined forms of senile cataract Combined forms of age-related cataract of both eyes Other and combined forms of senile cataract documented in this encounter [facility] note* Diagnosis Pre-op evaluation- Primary Preoperative examination, unspecified Cataract of both eyes, unspecified cataract type Other hyperlipidemia Complex regional pain syndrome type 1, affecting unspecified site Combined forms of age-related cataract of both eyes Other and combined forms of senile cataract Combined forms of age-related cataract of both eyes Other and combined forms of senile cataract documented in this encounter [facility] note* Diagnosis S/P cataract extraction and insertion of intraocular lens, left- Primary 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 Other and combined forms of senile cataract documented in this encounter [facility] note* Diagnosis S/P cataract extraction and insertion of intraocular lens, left- Primary 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 documented in this encounter [facility] noteNo InformationNortExcela [facility] [employer] Other Evaluation noteNo assessment information available [facility] [employer] Work Phone: Evaluation note* Diagnosis Onset Date Resolution Status Acute kidney injury acute Acute metabolic encephalopathy acute Chronic disease anemia acute Multifocal pneumonia acute Sepsis acute [facility] Work Phone: History general Narrative - Reported* Type Description Date Medical History hypertension Medical History hypercholesterolemia Medical History neuropathy Medical History macular degeneration Surgical History C section 1966 Surgical History bilateral mastectomy 1999 [facility] [employer] Other History general Narrative - Reported* Type Description Date Medical History hypertension Medical History hypercholesterolemia Medical History neuropathy Medical History macular degeneration Surgical History C section 1966 Surgical History bilateral mastectomy 1999 Surgical History LTKA [email or web address] Other History general Narrative - Reported* Type Description Date Medical History hypertension Medical History hypercholesterolemia Medical History neuropathy Medical History macular degeneration Surgical History C section 1966 Surgical History bilateral mastectomy 1999 Surgical History [facility] Hospitalization History see surgical history [email or web address] Other Advance Directives Documents on File Type Date Recorded 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 Advance Directive(s) 07/08/2021 9:01 AM Advance Directive(s) 07/08/2021 10:19 AM Documents on File Type Date Recorded 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 Advance Directive(s) 08/06/2021 9:07 AM Advance Directive(s) 08/06/2021 9:08 AM Advance Directive(s) 07/08/2021 9:01 AM Advance Directive(s) 07/08/2021 10:19 AM Documents on File Type Date Recorded 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 Advance Directive(s) 08/20/2021 9:02 AM Advance Directive(s) 08/06/2021 9:07 AM Advance Directive(s) 08/06/2021 9:08 AM Advance Directive(s) 07/08/2021 9:01 AM Advance Directive(s) 07/08/2021 10:19 AM Advance Directive Response Recorded Date/ Time Advance Directives No March 04, 2021 8:20am Advance Directive Response Recorded Date/ Time Advance Directives No March 04, 2021 7:20am Medications Administered Section Active Administered Medications - up to 3 most recent administrations Medication Order MAR Action Action Date Dose Rate Site fluorescein-benoxinate 0.25-0.4 % 1 Drop (FLURESS) 1 Drop, BOTH EYES, DIRECTED, Starting on Nini 08/07/21 at 0900, Until Nini 08/07/21 at 2058, Administer for applanation tonometry. In the event of a Fluress shortage, administer Deisy-Fluor 1 drop into both eyes as directed for applanation tonometry Given 08/07/2021 9:00 AM EDT 1 Drop Summary Purpose Family History Relationship Condition Age at Onset Recorded Date/T clifford sister Malignant neoplasm of breast Unknown family member Malignant neoplasm of breast Unknown Not Specified Asthma Unknown father Myocardial infarction Unknown brother Diabetes mellitus Unknown Relationship Condition Age at Onset Recorded Date/T clifford sister Malignant neoplasm of breast Unknown family member Malignant neoplasm of breast Unknown Not Specified Asthma Unknown father Myocardial infarction Unknown brother Diabetes mellitus Unknown brother Heart disease Unknown daughter Malignant neoplasm of breast Unknown father Unknown Heart disease Unknown Not Specified Unknown Malignant neoplasm of breast Unknown Chief Complaint and Reason for Visit Chief Complaint Knee Pain M17.12 Chief Complaint r06.02 r61 Chief Complaint r06.02 r61 R06.02 R61 I27.20 Chief Complaint Amb Documentation Amb Documentation Hospital Follow up Unknown Reason for Visit Acute kidney injury Acute metabolic encephalopathy Chronic disease anemia Multifocal pneumonia Sepsis Reason for Referral Reason * 03/16 Dr Reed in [place] Diagnosis 1 Moderate COPD (chron ic obstructive pulmonary disease) (J44.9) Referral Organization [facility] Cardiology Referring Provider First Name Referring Provider Last Name Myra Referring Provider Specialty Cardiovascu lar Disease Referred Organization Unknown Facility Referred Provider Larry Reed Referred Provider Specialty Pulmonary Di seases Referral Priority Routine General Notes Macy Mccarthy 05:34:06 PM >received today, attachments made, referral faxed Reason *FU 09/22 [place] office - word finding issues. MRI pending. 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) Referral Organization [facility] Referring Provider First Name Oumar Referring Provider Last Name Shasha Referring Provider Specialty Family [facility] Referred Organization [facility] Referred Provider Tessa Espinal Referred Address [address] [place] [address] [place], [place],[address] Referred Provider Specialty Neurology Referral Priority Routine General Notes Macy Mccarthy 03:49:19 PM >received today, attachments made, notes locked, referral faxed Additional Source Comments Source Comments (unrecognize d section and content) In the event this informatio n is protected by the Federal Confidentiality of Alcohol and Drug Abuse Patient Records regulations: The Federal rules restrict any use of the information to criminally investigate or prosecute any alcohol or drug abuse patient.[facility] the event this information is protected by the Federal Confidentiality of Alcohol and Drug Abuse Patient Records regulations: The Federal rules restrict any use of the information to criminally investigate or prosecute any alcohol or drug abuse patient.[facility] the event this information is protected by the Federal Confidentiality of Alcohol and Drug Abuse Patient Records regulations: The Federal rules restrict any use of the information to criminally investigate or prosecute any alcohol or drug abuse patient.[facility] the event this information is protected by the Federal Confidentiality of Alcohol and Drug Abuse Patient Records regulations: The Federal rules restrict any use of the information to criminally investigate or prosecute any alcohol or drug abuse patient.[facility] Reason for Visit (unrecogniz ed section and content) Reason Comments Pre-Op Exam Reason Comments Anesthesia Consult Reason Comments Post-op (Ophthalmology) Left Eye One day s/p cataract surgery with IOL Reason Comments Post-op (Ophthalmology) Left Eye s/p Pha co + PC IOL OS 08-06-21 Specialty Diagnoses / Procedures Referred By Contac t Referred To Contact [facility] Diagnoses Combined forms of age-related cataract of both eyes Procedures XCAPSL CTRC RMVL INSJ IO LENS PROSTH W/O ECP OPH BMTRY PRTL COHER INTRFRMTRY IO LENS PWR LEO PHACOEMULSIFICATION CATARACT IMPLANT INTRAOCULAR LENS W/O ENDOSCOPIC CYCLOPHOTOCOAGULATION OPHTHALMIC BIOMETRY BY PARTIAL COHERENCE INTERFEROMETRY W/INTRAOCULAR LENS POWER CALCULATION [facility] [address] [place] [address] Referral ID Status Reason Start Date Expiration Date Visits Re quested Visits Authorized [id number] 1 1 Care Teams (unrecognized sec tion and content) Team Status: Active Member Role Status Dates Oumar Gunter MD Primary Care Provider Active Team Status: Active Member Role Status Dates Oumar Gunter MD Primary Care Provide r, Attending Provider Active Start: May 25, 2023 Team Status: Active Member Role Status Dates Oumar Gunter MD Primary Care Provide r, Attending Provider Active Start: May 26, 2023 Team Status: Active Member Role Status Dates Oumar Gunter MD Primary Care Provide r, Attending Provider Active Start: May 27, 2023 Team Status: Active Member Role Status Dates Oumar Gunter MD Primary Care Provider Active Start: May 27, 2023 JERALD Crenshaw Attending Provider Active Start : May 27, 2023 Team Status: Active Member Role Status Dates Oumar Gunter MD Primary Care Provide r, Attending Provider Active Start: May 28, 2023 Team Status: Active Member Role Status Dates Oumar Gunter MD Primary Care Provide r, Attending Provider Active Start: May 29, 2023 Team Status: Active Member Role Status Dates Oumar Gunter MD Primary Care Provide r, Attending Provider Active Start: May 31, 2023 Merline Brown LPN Active Start: May 31, 2023 Team Status: Inactive Member Role Status Dates Oumar Gunter MD Primary Care Provide r, Attending Provider Active Start: June 02, 2023 End: June 02, 2023 Team Status: Active Member Role Status Dates Oumar Gunter MD Primary Care Provide r, Attending Provider Active Start: June 15, 2023 Team Status: Inactive Member Role Status Nomi Gunter MD Primary Care Provider Active Start: June 15, 2023 End: June 15, 2023 Fidelina Escobar MD Attending Provider Active St art: June 15, 2023 End: June 15, 2023 Team Status: Active Member Role Status Dates Oumar Gunter MD Primary Care Provider Active Team Status: Inactive Member Role Status Dates Oumar Gunter MD Primary Care Provider Active Miguel Schultz II, MD Attending Provider Active Environmental Auditor Relationship Specialty Start Date End Date Oumar Gunter MD [address] [place] [address] PCP - General Family Practice 12/25/10 Environmental Auditor Relationship Specialty Start Date End Date Oumar Gunter MD [address] [facility] [place] [address] PCP - General Family Practice 12/25/10 Environmental Auditor Relationship Specialty Start Date End Date Oumar Gunter MD [address] [facility] [place] [address] PCP - General Family Practice 12/25/10 Environmental Auditor Relationship Specialty Start Date End Date Oumar Gunter MD [address] [facility] [place] [place] [address] PCP - General Family Practice 12/25/10 Team Status: Inactive Member Role Status Dates Oumar Gunter MD Primary Care Provider Active Linda Renteria MD Attending Provider Active Team Status: Inactive Member Role Status Dates Oumar Gunter MD Primary Care Provider Active Linda Renteria MD Attending Provider, Referring Provi hailee Active Team Status: Active Member Role Status Dates Oumar Gunter MD Primary Care Provide r, Attending Provider Active Start: May 25, 2023 Team Status: Active Member Role Status Dates Oumar Gunter MD Primary Care Provide r, Attending Provider Active Start: May 26, 2023 Team Status: Active Member Role Status Dates Oumar Gunter MD Primary Care Provide r, Attending Provider Active Start: May 27, 2023 Team Status: Active Member Role Status Dates Oumar Gunter MD Primary Care Provider Active Start: May 27, 2023 JERALD Crenshaw Attending Provider Active Start : May 27, 2023 Team Status: Active Member Role Status Dates Oumar Gunter MD Primary Care Provide r, Attending Provider Active Start: May 28, 2023 Team Status: Active Member Role Status Dates Oumar Gunter MD Primary Care Provide r, Attending Provider Active Start: May 29, 2023 Team Status: Active Member Role Status Dates Oumar Gunter MD Primary Care Provide r, Attending Provider Active Start: May 31, 2023 Merline Brown LPN Active Start: May 31, 2023 Team Status: Inactive Member Role Status Dates Oumar Gunter MD Primary Care Provide r, Attending Provider Active Start: June 02, 2023 End: June 02, 2023 Team Status: Active Member Role Status Dates Oumar Gunter MD Primary Care Provide r, Attending Provider Active Start: June 15, 2023 Team Status: Inactive Member Role Status Dates Oumar Gunter MD Primary Care Provider Active Start: June 15, 2023 End: June 15, 2023 Fidelina Escobar MD Attending Provider Active St art: June 15, 2023 End: June 15, 2023 INFORMATION SOURCE (unrecogn ized section and content) DATE CREATED AUTHOR 08/21/2021 [facility] DATE CREATED AUTHOR AUTHOR'S ORGANIZ ATION 02/03/2022 [facility] DATE CREATED AUTHOR AUTHOR'S ORGANIZ ATION 06/17/2023 [facility] Goals (unrecognized section and content) Goals may be documented in a n alternate section FOR RECORDS PERTAINING TO PATIENTS WHO ARE OR HAVE BEEN ENROLLED IN A CHEMICAL DEPENDENCY/SUBSTANCEABUSE PROGRAM, SOME INFORMATION MAY BE OMITTED. This clinical summary was aggregated from multiple sources. Caution should be exercised in using it in the provision of clinical care. This summary normalizes information from multiple sources, and as a consequence, information in this document may materially change the coding, format and clinical context of patient data. In addition, data may be omitted in some cases. CLINICAL DECISIONS SHOULD BE BASED ON THE PRIMARY CLINICAL RECORDS. [facility] [employer] provides no warranty or guarantee of the accuracy or completeness of information in this document.
== END 2023-08-26 10:11 | disposition home or self-care (01) ==
LOC: CT 10:10
PROVIDERS: PCP Family Medicine; Visit Provider Internal Medicine Hematology & Oncology
DX: D64.9 Anemia, unspecified (principal); C50.912 Malignant neoplasm of unspecified site of left female breast; D72.829 Elevated white blood cell count, unspecified
CPT/HCPCS: 71250

== ENCOUNTER 2023-08-31 07:26 | Outpatient (RCR) | payer MEDICARE, SELFPAY | END 2023-08-31 15:25 | disposition home or self-care (01) | LOC: INF 07:26 | PROVIDERS: PCP Family Medicine; Visit Provider Internal Medicine Hematology & Oncology | DX: Z85.3 Personal history of malignant neoplasm of breast (principal); D72.829 Elevated white blood cell count, unspecified; D64.9 Anemia, unspecified; G62.9 Polyneuropathy, unspecified; Z90.13 Acquired absence of bilateral breasts and nipples | CPT/HCPCS: G0463 ==

== ENCOUNTER 2023-09-15 11:02 | Outpatient (OUT) | payer MEDICARE, SELFPAY ==
[2023-09-15 13:08] LABS: Chol HDL Ratio 4.4; Cholesterol 234 mg/dL (<=200); HDL Cholesterol 53 mg/dL (40-60); Triglycerides 213 mg/dL (<=150); VLDL CHOLESTEROL 42.6 mg/dL
== END 2023-09-15 11:03 | disposition home or self-care (01) ==
LOC: LAB 11:04
PROVIDERS: PCP Family Medicine; Visit Provider Family Medicine
DX: E78.2 Mixed hyperlipidemia (principal)
CPT/HCPCS: 36415; 80061

== ENCOUNTER 2023-12-20 10:47 | Outpatient (OUT) | payer MEDICARE, SELFPAY ==
[2023-12-20 11:33] LABS: Anion Gap 8.3; BUN Creatinine Ratio 18.7; Calcium 9.8 mg/dL (8.5-10.1); Carbon Dioxide 32.4 mmol/L (21.0-32.0); Chloride 102 mmol/L (98-107); Estimated GFR (African America 44 (>=60); Estimated GFR (Non-African Ame 37 (>=60); Glucose 108 mg/dL (74-106); Potassium 4.7 mmol/L (3.5-5.1); Sodium 138 mmol/L (136-145)
== END 2023-12-20 10:48 | disposition home or self-care (01) ==
LOC: LAB 10:49
PROVIDERS: PCP Family Medicine; Visit Provider Family Medicine
DX: I10 Essential (primary) hypertension (principal)
CPT/HCPCS: 36415; 80048

== ENCOUNTER 2024-03-01 10:31 | Outpatient (OUT) | payer MEDICARE, SELFPAY ==
--- OUTSIDE RECORDS SUMMARY | 2024-03-01 10:52 | XMS_ITS | CCD ---
Author Organization [facility] Care Team Providers Care Ranch Supervisor Name Role Phone Oumar Gunter MD Primary Care Provider [phone] Miguel Schultz II Unavailable MD Oumar Gunter Primary Care Provider [phone] MD Miguel Schultz II Attending Provider [phone] MIGUEL SCHULTZ Admitting Unavailable MIGUEL SCHULTZ Attending Unavailable GUNTER, DR OUMAR San Primary Care Unavailable GUNTER, DR OUMAR San Admitting Unavailable GUNTER, DR OUMAR San Attending Unavailable GUNTER, DR OUMAR San Primary Care Unavailable FAWWAArgenis, SHAIKH Sweetie Admitting Unavailable SHAIKH Sweetie RHODES Attending Unavailable GUNTER, DR OUMAR San Referring Unavailable GUNTER, DR OUMAR San Primary Care Unavailable YANELISREJI, DR CIARRA Recinos Consulting Unavailable FAWWAArgenis, SHAIKH Sweetie Consulting Unavailable GUNTER, DR OUMAR [...] GUNTER, DR OUMAR San Primary Care Unavailable DRAVOSBURG, DR EDWARDO Faria Consulting Unavailable GUNTER, DR OUMAR San Consulting Unavailable GUNTER, DR OUMAR aSn Admitting Unavailable GUNTER, DR OUMAR San Attending Unavailable GUNTER, DR OUMAR San Primary Care Unavailable GUNTER, DR OUMAR San Consulting Unavailable Oumar Gunter Unavailable MD Oumar Gunter Primary Care Provider MD Miguel Schultz II Attending Provider Linda Renteria Unavailable MD Oumar Gunter Primary Care Provider MD Linda Renteria Attending Provider [phone] MD Oumar Gunter Primary Care Provider MD Linda Renteria Attending Provider MD Linda Renteria Referring Provider Oumar Gunter Primary Care Unavailable Linda Renteria Admitting Unavailable Linda Renteria Attending Unavailable Linda Renteria Referring Unavailable Linda Renteria Admitting Unavailable Linda Renteria Attending Unavailable Oumar Gunter Primary Care Unavailable Miguel Schultz II Admitting UnavailMiguel Stokes II Attending UnavailOumar Mackenzie Primary Care Unavailable Fidelina Escobar Admitting Unavailable Fidelina Escobar Attending Unavailable Oumar Gunter Primary Care Unavailable MD Oumar Gunter Primary Care Provider MD Fidelina Escobar Attending Provider Allergies Allergy Classification Reported Allergen(s) Allergy Type Date of Onset Reaction(s) Facility (4 sources) Adhesive Tape Allergy to substance 4 Rash [facility] (20 sources) Adhesive Tape Drug allergy rash [employer] Other (2 sources) Adhesive agent Drug allergy (disorder) 6 [facility] Repository (1 source) Adhesive Tape Drug allergy (disorder) 4 [facility] Repository Medications Current Medications Medication Drug Class(es) Dates [...] Comment on above: Take 1 tablet by [facility] once daily. benoxinate hydrochloride 4 mg/ml / fluorescein sodium 2.5 mg/ml ophthalmic solution (1 source) Diagnostic Dye Start: 08-08-19 End: 08-08-19 fluorescein-benoxi liang 0.25-0.4 % 1 Drop (FLURESS) [...] Active Start: 07-07-2021 take 1 tablet by [facility] once daily Cholecalciferol (Vitamin D3) (Vitamin D3) 25 mcg (1,000 unit) Tablet Active 25 MCG PO Daily July 07, 2021 12:00am Start: 02-27-2021 Vitamin D3 250 MCG (75948 UT) as directed Orally Feb, Active Start: 02-27-2021 Vitamin D3 250 MCG (80894 UT) as directed Orally Feb, Active Comment on above: Take 1,000 Units by mouth once daily. docusate sodium 50 mg / sennosides, senior living 8.6 mg oral tablet (6 sources) Start: 2 take 2 tablets by mouth every twenty-four hours Senokot S 8.6-50 MG 2 tablets Orally Once a day for 30 day(s) MED TO BED UPON DISCHARGE DOS 07/21/2021 Jun, Active DULoxetine 60 mg delayed release oral capsule (20 sources) Serotonin and Norepinephrine Reuptake Inhibitor Start: End: 2 take 60 mg by mouth once daily in the morning Duloxetine Active 60 MG PO Every morning July 07, 2021 12:00am Start: 05-21-2015 End: 07-30-2021 take 30 mg by mouth once daily at bedtime Duloxetine Active 30 MG PO Daily at bedtime July 07, 2021 12:00am Comment on above: Take 1 capsule by [facility] once daily. TAKE ONE CAPSULE MICHELLE RY MORNING 1 capsule every morn ing. 1 capsule daily at b edtime. gabapentin 600 mg oral tablet (20 sources) Anti-epileptic Agent Start: 07-07-2021 take 600 mg by mouth three times daily Gabapentin Active 600 MG PO Three times daily July 07, 2021 12:00am Start: 05-14-2021 gabapentin (NE URONTIN) 600 mg tablet take 1 capsule by [facility] every twenty-four hours Gabapentin 400 [...] 1:00am Start: 01-21-2023 take 1 tablet by [facility] every twenty-four hours Lisinopril 5 MG 1 [...] Start: 07-04-2021 take 1 tablet by [facility] every four hours as needed for pain oxyCODONE HCl 5 MG 1 tablet as needed for pain Orally every 4 hrs for 7 days MED TO BED UPON DISCHARGE DOS 07/21/2021 Jun, Active Start: 07-11-2017 take 1 tablet by [facility] every six hours oxyCODONE HCl 15 MG 1 tablet Orally every 6 hrs Feb, Active polyethylene glycol 3350 76415 mg powder for oral solution (6 sources) [...] 1 tablet by [facility] once daily. prednisoLONE acetate 10 mg/ml ophthalmic [...] June 02, 2023 1:00am Vit A,C And N-Vpzojm-Rffaglvm (Healthy Eyes) 300 mcg-200 mg-27 mg-2 mg Tablet (5 sources) Start: 07-07-2021 take 1 tablet by mouth once daily Vit A,C And L-Zucewc-Orzugufv (Healthy Eyes) 300 mcg-200 mg-27 mg-2 mg Tablet Active 1 TAB PO Daily July 06, 2021 11:00pm Start: 07-07-2021 take 1 tablet by [facility] once daily Vit A,C And W-Xxjmsk-Pgxzbqob (Healthy Eyes) 300 mcg-200 mg-27 mg-2 mg Tablet Active 1 TAB PO Daily July 07, 2021 12:00am Vitamin D 25 MCG (1000 UT) (20 sources) Start: 07-10-2021 take 1 tablet by mouth once daily Vitamin D 25 MCG (1000 UT) 1 tablet Orally Once a day for 56 day(s) Jun, Active Vitamin D3 250 MCG (55855 UT) (19 sources) Start: 02-27-2021 Vitamin D3 250 MCG (29253 UT) as directed Orally Feb, Active Completed/Discontinued [...] above: TAKE 1 TABLET BY [facility] EVERY DAY FOR 30 DAYS 24 hr [...] source) gamma-Aminobutyric Acid-ergic Agonist Start: 015 End: zolpidem (AMBIEN) 10 mg tab Take 1 tablet at bedtime. 0 09/04/2014 07/30/2021 Discontinued (Course of therapy completed) Comment on above: Take 1 tablet at bed time. Problems Active Problems Problem Classification Problem Date [...] 04-06-2021 Episodic Other aftercare (2 sources) Other long term care phlebotomist (current) drug therapy; Translations: [OTH [facility]IOR LIV[facility] CURRENT DRUG THERAPY] Onset: 05-28-2021 Resolved: 05-28-2021 [...] [CONTACT W/AND (SUSP) EXPOS COVID-19] Onset: 04-03-2021 Results Test Name Value Interpretation Reference Range Facility Albumin [Mass/volume] in Ser um or Plasmaon 06-15-2023 Albumin [Mass/Vol] 3.7 g/dL 2.9-4.4 [facility] Basophils Auto (Bld) [#/Vol] on 06-15-2023 Basophils (Bld) [#/Vol] 0.1 10 3/uL 0.0-0.1 [facility] Basophils/100 WBC Auto (Bld) on 06-15-2023 Basophils/100 WBC (Bld) 0.7 % 0.2-2.0 [facility] Eosinophils/100 WBC Auto (Bl d)on 06-15-2023 Eosinophils/100 WBC (Bld) 2.3 % 0.9-7.0 [facility] Erythrocyte distribution wid th Auto (RBC) [Ratio]on 06-15-2023 Erythrocyte distribution width (RBC) [Ratio] 13.1 % 11.0-15.0 [facility] Estimated glomerular filtrat ion rate (GFR) non- Americanon 06-15-2023 GFR/1.73 sq M.predicted among non-blacks MDRD (S/P/Bld) [Vol rate/Area] 40 mL/min/{1.73_m2} >=60 [facility] Globulin Calc (S) [Mass/Vol] on 06-15-2023 Globulin (S) [Mass/Vol] 3.7 g/dL [facility] Hematocrit Auto (Bld) [Volum e fraction]on 06-15-2023 Hematocrit (Bld) [Volume fraction] 39.7 % 36.0-48.0 [facility] Hemoglobin [Mass/volume] in Bloodon 06-15-2023 Hemoglobin (Bld) [Mass/Vol] 12.1 g/dL 12.0-16.0 [facility] IgA [Mass/volume] in Serum o r Plasmaon 06-15-2023 IgA [Mass/Vol] 195 mg/dL 64-422 [facility] IgG [Mass/volume] in Serum o r Plasmaon 06-15-2023 IgG [Mass/Vol] 865 mg/dL [phone] [facility] IgM [Mass/volume] in Serum o r Plasmaon 06-15-2023 IgM [Mass/Vol] 54 mg/dL 26-217 [facility] Iron binding capacity [Mass/ volume] in Serum or Plasmaon 06-15-2023 Iron binding capacity [Mass/Vol] 330.0 ug/dL 250.0-450.0 [facility] Iron saturation [Mass Fracti on] in Serum or Plasmaon 06-15-2023 Iron saturation [Mass fraction] 29.7 % [facility] Gerardo 06-15-2023 L Specimen: Received: 06/16/23 Status: SOUT Req Num: [id number] Spec Type: Impression Subm Dr: Fidelina Escobar MD Tissues: PATHPER Procedures: PATHREVIEW Age/ Patient Sex Location Account Attending Physician Catherine Ayers 78/F [place] [id number] Fidelina Escobar MD SPEC NUM: RECD: 06/16/23 STATUS: SOUT REQ NUM: [id number] ABDIAS: 06/15/23-[address]: Fidelina Escobar MD ENTERED: 06/16/23-1303 [facility] DR: SPEC TYPE: Impression DEPT: JOEL Sifuentes ENTERED BY: [id number] RECV BY: [id number] ORDERED: PATHREVIEW ORDERED: PATHREVIEW Pathologist Review Occasional immature lymphocytes are noted. Reactive vs. neoplastic. -------- -------- Specimen: [id number] Received: 06/16/23 Status: QUINN Perfecto Num: [id number] Spec Type: Impression Subm Dr: Fidelina Escobar MD Tissues: PATHPER Procedures: PATHREVIEW -------- Patient: Catherine Ayers [id number] (Continued) -------- Signed (signature on file) Fabio Silvestre MD 06/16/23 1553 Normal [facility] Laboratory - Chemistry and C hemistry - challengeon 06-15-2023 ALP [Catalytic activity/Vol] 85 U/L 46-116 [facility] ALT [Catalytic activity/Vol] 17 U/L 14-59 [facility] AST [Catalytic activity/Vol] 20 U/L 15-37 [facility] Bilirubin [Mass/Vol] 0.4 mg/dL 0.2-1.0 [facility] Calcium [Mass/Vol] 10.0 mg/dL 8.5-10.1 [facility] Chloride [Moles/Vol] 101 mmol/L 98-107 [facility] CO2 [Moles/Vol] 29.7 mmol/L 21.0-32.0 [facility] Creatinine [Mass/Vol] 1.29 mg/dL 0.55-1.02 [facility] Ferritin [Mass/Vol] 168.0 ng/mL 8.0-252.0 [facility] GFR/1.73 sq M.predicted MDRD (S/P/Bld) [Vol rate/Area] 48 mL/min/{1.73_m2} >=60 [facility] Glucose [Mass/Vol] 174 mg/dL 74-106 [facility] Iron [Mass/Vol] 98.0 ug/dL 50.0-170.0 [facility] LDH [Catalytic activity/Vol] 202 U/L 81-234 [facility] Potassium [Moles/Vol] 4.8 mmol/L 3.5-5.1 [facility] Protein [Mass/Vol] 7.4 g/dL 6.4-8.2 [facility] Sodium [Moles/Vol] 139 mmol/L 136-145 [facility] Urea nitrogen [Mass/Vol] 27.0 mg/dL 7.0-18.0 [facility] Urea nitrogen/Creatinine [Mass ratio] 20.9 mg/mg [facility] Laboratory - Hematology and Cell countson 06-15-2023 ESR (Bld) [Velocity] 52 mm/h <=30 [facility] Immature granulocytes/100 WBC (Bld) 0.4 % 0.0-0.5 [facility] Leukocytes [#/volume] correc clifford for nucleated erythrocytes in Blood by Automated counon 06-15-2023 WBC corrected for nucl RBC Auto (Bld) [#/Vol] 6.9 10 3/uL 4.0-11.0 [facility] Lymphocytes Auto (Bld) [#/Vo l]on 06-15-2023 Lymphocytes (Bld) [#/Vol] 1.7 10 3/uL 1.2-3.8 [facility] Lymphocytes/100 WBC Auto (Bl d)on 06-15-2023 Lymphocytes/100 WBC (Bld) 24.7 % 20.5-60.0 [facility] MCH Auto (RBC) [Entitic mass ]on 06-15-2023 MCH (RBC) [Entitic mass] 29.6 pg 26.7-34.0 [facility] MCHC Auto (RBC) [Mass/Vol]on 06-15-2023 MCHC (RBC) [Mass/Vol] 30.5 g/dL 29.9-35.2 [facility] MCV Auto (RBC) [Entitic vol] on 06-15-2023 MCV (RBC) [Entitic vol] 97.1 fL 81.0-99.0 [facility] Monocytes Auto (Bld) [#/Vol] on 06-15-2023 Monocytes (Bld) [#/Vol] 0.4 10 3/uL 0.3-0.8 [facility] Monocytes/100 WBC Auto (Bld) on 06-15-2023 Monocytes/100 WBC (Bld) 6.0 % 1.7-12.0 [facility] Neutrophils Auto (Bld) [#/Vo l]on 06-15-2023 Neutrophils (Bld) [#/Vol] 4.5 10 3/uL 1.4-6.5 [facility] Neutrophils/100 WBC Auto (Bl d)on 06-15-2023 Neutrophils/100 WBC (Bld) 65.9 % 43.0-75.0 [facility] No Panel Informationon 06-14 C-Reactive Protein, Quantitative <0.50 mg/dL <=0.50 [facility] Eosinophils # (Auto) 0.2 10 3/uL 0.0-0.7 [facility] Immature Granulocyte # (Auto) 0.03 10 3/uL 0.00-0.03 [facility] Protein Electrophoresis M-Jones Not Observed g/dL Not Observed [facility] Protein Electrophoresis Note Comment . [facility] Comment on above: Protein electrophore sis scan will follow via computer,mail, or salt refiner delivery.Performed at: [facility] [place] [facility] [id number] Director: Larry Nicolas PhD, Phone: [phone] Platelet mean volume Auto (B ld) [Entitic vol]on 06-15-2023 Platelet mean volume (Bld) [Entitic vol] 10.8 fL 9.5-13.5 [facility] Platelets Auto (Bld) [#/Vol] on 06-15-2023 Platelets (Bld) [#/Vol] 259 10 3/uL 150-450 [facility] Protein [Mass/volume] in Ser um or Plasmaon 06-15-2023 Protein [Mass/Vol] 6.9 g/dL 6.0-8.5 [facility] RBC Auto (Bld) [#/Vol]on RBC (Bld) [#/Vol] 4.09 10 6/uL 4.20-5.40 [facility] Reticulocytes/100 RBC Auto ( Bld)on 06-15-2023 Reticulocytes/100 RBC (Bld) 1.56 % 0.60-3.10 [facility] Serum globulin measurement ( mass/volume)on 06-15-2023 Globulin (S) [Mass/Vol] 3.2 g/dL 2.2-3.9 [facility] Serum or plasma albumin/glob ulin mass ratioon 06-15-2023 Albumin/Globulin [Mass ratio] 1.0 {ratio} [facility] Albumin/Globulin [Mass ratio] 1.2 {ratio} 0.7-1.7 [facility] Serum or plasma alpha 1 glob ulin measurement by electrophoresis (mass/volume)on 06-15-2023 Alpha 1 globulin Elph [Mass/Vol] 0.3 g/dL 0.0-0.4 [facility] Serum or plasma alpha 2 glob ulin measurement by electrophoresis (mass/volume)on 06-15-2023 Alpha 2 globulin Elph [Mass/Vol] 1.0 g/dL 0.4-1.0 [facility] Serum or plasma anion gap de terminationon 06-15-2023 Anion gap [Moles/Vol] 13.1 mmol/L [facility] Serum or plasma beta globuli n measurement by electrophoresis (mass/volume)on 06-15-2023 Beta globulin Elph [Mass/Vol] 1.2 g/dL 0.7-1.3 [facility] Serum or plasma gamma globul in measurement by electrophoresis (mass/volume)on 06-15-2023 Gamma globulin Elph [Mass/Vol] 0.7 g/dL 0.4-1.8 [facility] Serum or plasma immunoelectr ophoresis interpretationon 06-15-2023 Interpretation IEP [Interp] Comment . [facility] Comment on above: No monoclonality det ected. Basophils Auto (Bld) [#/Vol] on 05-29-2023 Basophils (Bld) [#/Vol] 0.2 10 3/uL 0.0-0.1 [facility] Basophils/100 WBC Auto (Bld) on 05-29-2023 Basophils/100 WBC (Bld) 0.7 % 0.2-2.0 [facility] Eosinophils/100 WBC Auto (Bl d)on 05-29-2023 Eosinophils/100 WBC (Bld) 0.5 % 0.9-7.0 [facility] Erythrocyte distribution wid th Auto (RBC) [Ratio]on 05-29-2023 Erythrocyte distribution width (RBC) [Ratio] 12.7 % 11.0-15.0 [facility] Estimated glomerular filtrat ion rate (GFR) non- Americanon 05-29-2023 GFR/1.73 sq M.predicted among non-blacks MDRD (S/P/Bld) [Vol rate/Area] 58 mL/min/{1.73_m2} >=60 [facility] Globulin Calc (S) [Mass/Vol] on 05-29-2023 Globulin (S) [Mass/Vol] 4.3 g/dL [facility] Hematocrit Auto (Bld) [Volum e fraction]on 05-29-2023 Hematocrit (Bld) [Volume fraction] 31.1 % 36.0-48.0 [facility] Hemoglobin [Mass/volume] in Bloodon 05-29-2023 Hemoglobin (Bld) [Mass/Vol] 9.9 g/dL 12.0-16.0 [facility] Laboratory - Chemistry and C hemistry - challengeon 05-29-2023 Albumin [Mass/Vol] 2.3 g/dL 3.4-5.0 [facility] ALP [Catalytic activity/Vol] 94 U/L 46-116 [facility] ALT [Catalytic activity/Vol] 46 U/L 14-59 [facility] AST [Catalytic activity/Vol] 37 U/L 15-37 [facility] Bilirubin [Mass/Vol] 0.3 mg/dL 0.2-1.0 [facility] Calcium [Mass/Vol] 9.3 mg/dL 8.5-10.1 [facility] Chloride [Moles/Vol] 108 mmol/L 98-107 [facility] CO2 [Moles/Vol] 26.5 mmol/L 21.0-32.0 [facility] Creatinine [Mass/Vol] 0.93 mg/dL 0.55-1.02 [facility] GFR/1.73 sq M.predicted MDRD (S/P/Bld) [Vol rate/Area] mL/min/{1.73_m2} >=60 [facility] Glucose [Mass/Vol] 109 mg/dL 74-106 [facility] Potassium [Moles/Vol] 4.1 mmol/L 3.5-5.1 [facility] Protein [Mass/Vol] 6.6 g/dL 6.4-8.2 [facility] Sodium [Moles/Vol] 144 mmol/L 136-145 [facility] Urea nitrogen [Mass/Vol] 13.0 mg/dL 7.0-18.0 [facility] Urea nitrogen/Creatinine [Mass ratio] 14.0 mg/mg [facility] Laboratory - Hematology and Cell countson 05-29-2023 Immature granulocytes/100 WBC (Bld) 11.2 % 0.0-0.5 [facility] Leukocytes [#/volume] correc clifford for nucleated erythrocytes in Blood by Automated counon 05-29-2023 WBC corrected for nucl RBC Auto (Bld) [#/Vol] 20.0 10 3/uL 4.0-11.0 [facility] Lymphocytes Auto (Bld) [#/Vo l]on 05-29-2023 Lymphocytes (Bld) [#/Vol] 2.7 10 3/uL 1.2-3.8 [facility] Lymphocytes/100 WBC Auto (Bl d)on 05-29-2023 Lymphocytes/100 WBC (Bld) 13.2 % 20.5-60.0 [facility] MCH Auto (RBC) [Entitic mass ]on 05-29-2023 MCH (RBC) [Entitic mass] 29.8 pg 26.7-34.0 [facility] MCHC Auto (RBC) [Mass/Vol]on 05-29-2023 MCHC (RBC) [Mass/Vol] 31.8 g/dL 29.9-35.2 [facility] MCV Auto (RBC) [Entitic vol] on 05-29-2023 MCV (RBC) [Entitic vol] 93.7 fL 81.0-99.0 [facility] Monocytes Auto (Bld) [#/Vol] on 05-29-2023 Monocytes (Bld) [#/Vol] 1.1 10 3/uL 0.3-0.8 [facility] Monocytes/100 WBC Auto (Bld) on 05-29-2023 Monocytes/100 WBC (Bld) 5.3 % 1.7-12.0 [facility] Neutrophils Auto (Bld) [#/Vo l]on 05-29-2023 Neutrophils (Bld) [#/Vol] 13.8 10 3/uL 1.4-6.5 [facility] Neutrophils/100 WBC Auto (Bl d)on 05-29-2023 Neutrophils/100 WBC (Bld) 69.1 % 43.0-75.0 [facility] No Panel Informationon 05-28 Eosinophils # (Auto) 0.1 10 3/uL 0.0-0.7 [facility] Immature Granulocyte # (Auto) 2.24 10 3/uL 0.00-0.03 [facility] Platelet mean volume Auto (B ld) [Entitic vol]on 05-29-2023 Platelet mean volume (Bld) [Entitic vol] 9.8 fL 9.5-13.5 [facility] Platelets Auto (Bld) [#/Vol] on 05-29-2023 Platelets (Bld) [#/Vol] 281 10 3/uL 150-450 [facility] RBC Auto (Bld) [#/Vol]on RBC (Bld) [#/Vol] 3.32 10 6/uL 4.20-5.40 [facility] Serum or plasma albumin/glob ulin mass ratioon 05-29-2023 Albumin/Globulin [Mass ratio] 0.5 {ratio} [facility] Serum or plasma anion gap de terminationon 05-29-2023 Anion gap [Moles/Vol] 13.6 mmol/L Fi [facility] Serum procalcitonin measurem enton 05-29-2023 Procalcitonin [Mass/Vol] ng/mL 0.00-0.50 [facility] Basophils Auto (Bld) [#/Vol] on 05-28-2023 Basophils (Bld) [#/Vol] 0.1 10 3/uL 0.0-0.1 [facility] Basophils/100 WBC Auto (Bld) on 05-28-2023 Basophils/100 WBC (Bld) 0.6 % 0.2-2.0 [facility] Eosinophils/100 WBC Auto (Bl d)on 05-28-2023 Eosinophils/100 WBC (Bld) 0.4 % 0.9-7.0 [facility] Erythrocyte distribution wid th Auto (RBC) [Ratio]on 05-28-2023 Erythrocyte distribution width (RBC) [Ratio] 12.7 % 11.0-15.0 [facility] Estimated glomerular filtrat ion rate (GFR) non- Americanon 05-28-2023 GFR/1.73 sq M.predicted among non-blacks MDRD (S/P/Bld) [Vol rate/Area] 47 mL/min/{1.73_m2} >=60 [facility] Globulin Calc (S) [Mass/Vol] on 05-28-2023 Globulin (S) [Mass/Vol] 3.9 g/dL [facility] Hematocrit Auto (Bld) [Volum e fraction]on 05-28-2023 Hematocrit (Bld) [Volume fraction] 29.0 % 36.0-48.0 [facility] Hemoglobin [Mass/volume] in Bloodon 05-28-2023 Hemoglobin (Bld) [Mass/Vol] 9.1 g/dL 12.0-16.0 [facility] Laboratory - Chemistry and C hemistry - challengeon 05-28-2023 Albumin [Mass/Vol] 2.0 g/dL 3.4-5.0 [facility] ALP [Catalytic activity/Vol] 93 U/L 46-116 [facility] ALT [Catalytic activity/Vol] 46 U/L 14-59 [facility] AST [Catalytic activity/Vol] 49 U/L 15-37 [facility] Bilirubin [Mass/Vol] 0.3 mg/dL 0.2-1.0 [facility] Calcium [Mass/Vol] 8.7 mg/dL 8.5-10.1 [facility] Chloride [Moles/Vol] 111 mmol/L 98-107 [facility] CO2 [Moles/Vol] 25.0 mmol/L 21.0-32.0 [facility] Creatinine [Mass/Vol] 1.12 mg/dL 0.55-1.02 [facility] GFR/1.73 sq M.predicted MDRD (S/P/Bld) [Vol rate/Area] 57 mL/min/{1.73_m2} >=60 [facility] Glucose [Mass/Vol] 103 mg/dL 74-106 [facility] Potassium [Moles/Vol] 4.1 mmol/L 3.5-5.1 [facility] Protein [Mass/Vol] 5.9 g/dL 6.4-8.2 [facility] Sodium [Moles/Vol] 144 mmol/L 136-145 [facility] Urea nitrogen [Mass/Vol] 22.0 mg/dL 7.0-18.0 [facility] Urea nitrogen/Creatinine [Mass ratio] 19.6 mg/mg [facility] Laboratory - Hematology and Cell countson 05-28-2023 Immature granulocytes/100 WBC (Bld) 10.3 % 0.0-0.5 [facility] Leukocytes [#/volume] correc clifford for nucleated erythrocytes in Blood by Automated counon 05-28-2023 WBC corrected for nucl RBC Auto (Bld) [#/Vol] 17.1 10 3/uL 4.0-11.0 [facility] Lymphocytes Auto (Bld) [#/Vo l]on 05-28-2023 Lymphocytes (Bld) [#/Vol] 2.3 10 3/uL 1.2-3.8 [facility] Lymphocytes/100 WBC Auto (Bl d)on 05-28-2023 Lymphocytes/100 WBC (Bld) 13.5 % 20.5-60.0 [facility] MCH Auto (RBC) [Entitic mass ]on 05-28-2023 MCH (RBC) [Entitic mass] 30.1 pg 26.7-34.0 [facility] MCHC Auto (RBC) [Mass/Vol]on 05-28-2023 MCHC (RBC) [Mass/Vol] 31.4 g/dL 29.9-35.2 [facility] MCV Auto (RBC) [Entitic vol] on 05-28-2023 MCV (RBC) [Entitic vol] 96.0 fL 81.0-99.0 [facility] Monocytes Auto (Bld) [#/Vol] on 05-28-2023 Monocytes (Bld) [#/Vol] 1.0 10 3/uL 0.3-0.8 [facility] Monocytes/100 WBC Auto (Bld) on 05-28-2023 Monocytes/100 WBC (Bld) 6.0 % 1.7-12.0 [facility] Neutrophils Auto (Bld) [#/Vo l]on 05-28-2023 Neutrophils (Bld) [#/Vol] 11.9 10 3/uL 1.4-6.5 [facility] Neutrophils/100 WBC Auto (Bl d)on 05-28-2023 Neutrophils/100 WBC (Bld) 69.2 % 43.0-75.0 [facility] No Panel Informationon 05-27 Eosinophils # (Auto) 0.1 10 3/uL 0.0-0.7 [facility] Immature Granulocyte # (Auto) 1.76 10 3/uL 0.00-0.03 [facility] Platelet mean volume Auto (B ld) [Entitic vol]on 05-28-2023 Platelet mean volume (Bld) [Entitic vol] 9.6 fL 9.5-13.5 [facility] Platelets Auto (Bld) [#/Vol] on 05-28-2023 Platelets (Bld) [#/Vol] 242 10 3/uL 150-450 [facility] RBC Auto (Bld) [#/Vol]on RBC (Bld) [#/Vol] 3.02 10 6/uL 4.20-5.40 [facility] Serum or plasma albumin/glob ulin mass ratioon 05-28-2023 Albumin/Globulin [Mass ratio] 0.5 {ratio} [facility] Serum or plasma anion gap de terminationon 05-28-2023 Anion gap [Moles/Vol] 12.1 mmol/L [facility] Serum procalcitonin measurem enton 05-28-2023 Procalcitonin [Mass/Vol] 0.06 ng/mL 0.00-0.50 [facility] Basophils/100 WBC Manual cnt (Bld)on 05-27-2023 Basophils/100 WBC (Bld) 0.0 % 0.2-2.0 [facility] Eosinophils/100 WBC Manual c nt (Bld)on 05-27-2023 Eosinophils/100 WBC (Bld) 0.0 % 0.9-7.0 [facility] Erythrocyte distribution wid th Auto (RBC) [Ratio]on 05-27-2023 Erythrocyte distribution width (RBC) [Ratio] 12.5 % 11.0-15.0 [facility] Estimated glomerular filtrat ion rate (GFR) non- Americanon 05-27-2023 GFR/1.73 sq M.predicted among non-blacks MDRD (S/P/Bld) [Vol rate/Area] 29 mL/min/{1.73_m2} >=60 [facility] Globulin Calc (S) [Mass/Vol] on 05-27-2023 Globulin (S) [Mass/Vol] 4.6 g/dL [facility] Hematocrit Auto (Bld) [Volum e fraction]on 05-27-2023 Hematocrit (Bld) [Volume fraction] 29.7 % 36.0-48.0 [facility] Hemoglobin [Mass/volume] in Bloodon 05-27-2023 Hemoglobin (Bld) [Mass/Vol] 9.4 g/dL 12.0-16.0 [facility] Laboratory - Chemistry and C hemistry - challengeon 05-27-2023 Lactate [Moles/Vol] 0.9 mmol/L 0.4-2.0 [facility] Albumin [Mass/Vol] 2.3 g/dL 3.4-5.0 [facility] ALP [Catalytic activity/Vol] 119 U/L 46-116 [facility] ALT [Catalytic activity/Vol] 43 U/L 14-59 [facility] AST [Catalytic activity/Vol] 57 U/L 15-37 [facility] Bilirubin [Mass/Vol] 0.2 mg/dL 0.2-1.0 [facility] Calcium [Mass/Vol] 9.1 mg/dL 8.5-10.1 [facility] Chloride [Moles/Vol] 111 mmol/L 98-107 [facility] CO2 [Moles/Vol] 18.8 mmol/L 21.0-32.0 [facility] Creatinine [Mass/Vol] 1.70 mg/dL 0.55-1.02 [facility] GFR/1.73 sq M.predicted MDRD (S/P/Bld) [Vol rate/Area] 35 mL/min/{1.73_m2} >=60 [facility] Glucose [Mass/Vol] 155 mg/dL 74-106 [facility] Potassium [Moles/Vol] 4.8 mmol/L 3.5-5.1 [facility] Protein [Mass/Vol] 6.9 g/dL 6.4-8.2 [facility] Sodium [Moles/Vol] 143 mmol/L 136-145 [facility] Urea nitrogen [Mass/Vol] 34.0 mg/dL 7.0-18.0 [facility] Urea nitrogen/Creatinine [Mass ratio] 20.0 mg/mg [facility] Laboratory - Hematology and Cell countson 05-27-2023 Band form neutrophils/100 WBC (Bld) 6.0 % 0-5 [facility] Lymphocytes/100 WBC (Bld) 12.0 % 20.5-60.0 [facility] Monocytes/100 WBC (Bld) 4.0 % 1.7-12.0 [facility] Laboratory - Microbiology an d Antimicrobial susceptibilityOrdered By: Oumar Gunter on 05-27-2023 Bacteria identified Respiratory culture Nom (Sput) [facility] Microscopic observation Gram stain Nom (Unsp spec) [facility] Leukocytes [#/volume] correc clifford for nucleated erythrocytes in Blood by Automated counon 05-27-2023 WBC corrected for nucl RBC Auto (Bld) [#/Vol] 26.6 10 3/uL 4.0-11.0 [facility] MCH Auto (RBC) [Entitic mass ]on 05-27-2023 MCH (RBC) [Entitic mass] 30.0 pg 26.7-34.0 [facility] MCHC Auto (RBC) [Mass/Vol]on 05-27-2023 MCHC (RBC) [Mass/Vol] 31.6 g/dL 29.9-35.2 [facility] MCV Auto (RBC) [Entitic vol] on 05-27-2023 MCV (RBC) [Entitic vol] 94.9 fL 81.0-99.0 [facility] Metamyelocytes/100 WBC Manua l cnt (Bld)on 05-27-2023 Metamyelocytes/100 WBC (Bld) 2.0 % [facility] No Panel Informationon Absolute Basophils (Manual) 0.00 10 3/uL 0.00-0.10 [facility] Band Neutrophils # (Manual) 1.6 10 3/uL 0.0-0.3 [facility] Eosinophils # (Manual) 0.00 10 3/uL 0.00-0.70 [facility] Lymphocytes # (Manual) 3.19 10 3/uL 1.20-3.80 [facility] Metamyelocytes # (Manual) 0.53 [facility] Monocytes # (Manual) 1.06 10 3/uL 0.30-0.80 [facility] Segmented Neutrophils # (Manual) 20.21 10 3/uL 1.4-6.5 [facility] Platelet mean volume Auto (B ld) [Entitic vol]on 05-27-2023 Platelet mean volume (Bld) [Entitic vol] 9.8 fL 9.5-13.5 [facility] Platelets Auto (Bld) [#/Vol] on 05-27-2023 Platelets (Bld) [#/Vol] 265 10 3/uL 150-450 [facility] RBC Auto (Bld) [#/Vol]on RBC (Bld) [#/Vol] 3.13 10 6/uL 4.20-5.40 [facility] Segmented neutrophils/100 WB C Manual cnt (Bld)on 05-27-2023 Segmented neutrophils/100 WBC (Bld) 76.0 % [facility] Serum or plasma albumin/glob ulin mass ratioon 05-27-2023 Albumin/Globulin [Mass ratio] 0.5 {ratio} [facility] Serum or plasma anion gap de terminationon 05-27-2023 Anion gap [Moles/Vol] 18.0 mmol/L Fi [facility] Serum procalcitonin measurem enton 05-27-2023 Procalcitonin [Mass/Vol] 0.13 ng/mL 0.00-0.50 [facility] Basophils Auto (Bld) [#/Vol] on 05-26-2023 Basophils (Bld) [#/Vol] 0.1 10 3/uL 0.0-0.1 [facility] Basophils/100 WBC Auto (Bld) on 05-26-2023 Basophils/100 WBC (Bld) 0.3 % 0.2-2.0 [facility] Eosinophils/100 WBC Auto (Bl d)on 05-26-2023 Eosinophils/100 WBC (Bld) 0.2 % 0.9-7.0 [facility] Erythrocyte distribution wid th Auto (RBC) [Ratio]on 05-26-2023 Erythrocyte distribution width (RBC) [Ratio] 12.5 % 11.0-15.0 [facility] Estimated glomerular filtrat ion rate (GFR) non- Americanon 05-26-2023 GFR/1.73 sq M.predicted among non-blacks MDRD (S/P/Bld) [Vol rate/Area] 14 mL/min/{1.73_m2} >=60 [facility] Globulin Calc (S) [Mass/Vol] on 05-26-2023 Globulin (S) [Mass/Vol] 4.4 g/dL [facility] Hematocrit Auto (Bld) [Volum e fraction]on 05-26-2023 Hematocrit (Bld) [Volume fraction] 31.7 % 36.0-48.0 [facility] Hemoglobin [Mass/volume] in Bloodon 05-26-2023 Hemoglobin (Bld) [Mass/Vol] 9.7 g/dL 12.0-16.0 [facility] Laboratory - Chemistry and C hemistry - challengeon 05-26-2023 Albumin [Mass/Vol] 2.3 g/dL 3.4-5.0 [facility] ALP [Catalytic activity/Vol] 128 U/L 46-116 [facility] ALT [Catalytic activity/Vol] 19 U/L 14-59 [facility] AST [Catalytic activity/Vol] 18 U/L 15-37 [facility] Bilirubin [Mass/Vol] 0.4 mg/dL 0.2-1.0 [facility] Calcium [Mass/Vol] 8.2 mg/dL 8.5-10.1 [facility] Chloride [Moles/Vol] 102 mmol/L 98-107 [facility] CO2 [Moles/Vol] 23.6 mmol/L 21.0-32.0 [facility] Creatinine [Mass/Vol] 3.17 mg/dL 0.55-1.02 [facility] GFR/1.73 sq M.predicted MDRD (S/P/Bld) [Vol rate/Area] 17 mL/min/{1.73_m2} >=60 [facility] Glucose [Mass/Vol] 279 mg/dL 74-106 [facility] Potassium [Moles/Vol] 4.2 mmol/L 3.5-5.1 [facility] Protein [Mass/Vol] 6.7 g/dL 6.4-8.2 [facility] Sodium [Moles/Vol] 136 mmol/L 136-145 [facility] Urea nitrogen [Mass/Vol] 40.0 mg/dL 7.0-18.0 [facility] Urea nitrogen/Creatinine [Mass ratio] 12.6 mg/mg [facility] Laboratory - Hematology and Cell countson 05-26-2023 Immature granulocytes/100 WBC (Bld) 4.9 % 0.0-0.5 [facility] Leukocytes [#/volume] correc clifford for nucleated erythrocytes in Blood by Automated counon 05-26-2023 WBC corrected for nucl RBC Auto (Bld) [#/Vol] 20.7 10 3/uL 4.0-11.0 [facility] Lymphocytes Auto (Bld) [#/Vo l]on 05-26-2023 Lymphocytes (Bld) [#/Vol] 1.5 10 3/uL 1.2-3.8 [facility] Lymphocytes/100 WBC Auto (Bl d)on 05-26-2023 Lymphocytes/100 WBC (Bld) 7.2 % 20.5-60.0 [facility] MCH Auto (RBC) [Entitic mass ]on 05-26-2023 MCH (RBC) [Entitic mass] 29.8 pg 26.7-34.0 [facility] MCHC Auto (RBC) [Mass/Vol]on 05-26-2023 MCHC (RBC) [Mass/Vol] 30.6 g/dL 29.9-35.2 [facility] MCV Auto (RBC) [Entitic vol] on 05-26-2023 MCV (RBC) [Entitic vol] 97.5 fL 81.0-99.0 [facility] Monocytes Auto (Bld) [#/Vol] on 05-26-2023 Monocytes (Bld) [#/Vol] 0.5 10 3/uL 0.3-0.8 [facility] Monocytes/100 WBC Auto (Bld) on 05-26-2023 Monocytes/100 WBC (Bld) 2.2 % 1.7-12.0 [facility] Neutrophils Auto (Bld) [#/Vo l]on 05-26-2023 Neutrophils (Bld) [#/Vol] 17.6 10 3/uL 1.4-6.5 [facility] Neutrophils/100 WBC Auto (Bl d)on 05-26-2023 Neutrophils/100 WBC (Bld) 85.2 % 43.0-75.0 [facility] No Panel Informationon 05-26 Eosinophils # (Auto) 0.0 10 3/uL 0.0-0.7 [facility] Immature Granulocyte # (Auto) 1.01 10 3/uL 0.00-0.03 [facility] Platelet mean volume Auto (B ld) [Entitic vol]on 05-26-2023 Platelet mean volume (Bld) [Entitic vol] 10.6 fL 9.5-13.5 [facility] Platelets Auto (Bld) [#/Vol] on 05-26-2023 Platelets (Bld) [#/Vol] 227 10 3/uL 150-450 [facility] RBC Auto (Bld) [#/Vol]on RBC (Bld) [#/Vol] 3.25 10 6/uL 4.20-5.40 [facility] Serum or plasma albumin/glob ulin mass ratioon 05-26-2023 Albumin/Globulin [Mass ratio] 0.5 {ratio} [facility] Serum or plasma anion gap de terminationon 05-26-2023 Anion gap [Moles/Vol] 14.6 mmol/L [facility] Serum procalcitonin measurem enton 05-26-2023 Procalcitonin [Mass/Vol] 0.61 ng/mL 0.00-0.50 [facility] Automated urine specific gra vity by refractometryon 05-25-2023 Specific gravity Refractometry automated (U) [Rel density] >=1.030 1.005-1.025 [facility] Basophils/100 WBC Manual cnt (Bld)on 05-25-2023 Basophils/100 WBC (Bld) 0.0 % 0.2-2.0 [facility] Bilirubin Auto test strip (U ) [Mass/Vol]on 05-25-2023 Bilirubin (U) [Mass/Vol] SMALL NEGATIVE [facility] Blood toxic granulation dete ction by light microscopyon 05-25-2023 Toxic granules LM Ql (Bld) 4+ [facility] Color Auto (U)on 05-25-2023 Color (U) DK. YELLOW YELLOW [facility] Eosinophils/100 WBC Manual c nt (Bld)on 05-25-2023 Eosinophils/100 WBC (Bld) 0.0 % 0.9-7.0 [facility] Erythrocyte distribution wid th Auto (RBC) [Ratio]on 05-25-2023 Erythrocyte distribution width (RBC) [Ratio] 12.3 % 11.0-15.0 [facility] Estimated glomerular filtrat ion rate (GFR) non- Americanon 05-25-2023 GFR/1.73 sq M.predicted among non-blacks MDRD (S/P/Bld) [Vol rate/Area] 12 mL/min/{1.73_m2} >=60 [facility] Globulin Calc (S) [Mass/Vol] on 05-25-2023 Globulin (S) [Mass/Vol] 4.9 g/dL [facility] Hematocrit Auto (Bld) [Volum e fraction]on 05-25-2023 Hematocrit (Bld) [Volume fraction] 35.0 % 36.0-48.0 [facility] Hemoglobin [Mass/volume] in Bloodon 05-25-2023 Hemoglobin (Bld) [Mass/Vol] 11.1 g/dL 12.0-16.0 [facility] Ketones Auto test strip (U) [Mass/Vol]on 05-25-2023 Ketones (U) [Mass/Vol] TRACE mg/dL NEGATIVE [facility] Laboratory - Chemistry and C hemistry - challengeon 05-25-2023 Albumin [Mass/Vol] 2.8 g/dL 3.4-5.0 [facility] ALP [Catalytic activity/Vol] 131 U/L 46-116 [facility] ALT [Catalytic activity/Vol] 21 U/L 14-59 [facility] AST [Catalytic activity/Vol] 21 U/L 15-37 [facility] Bilirubin [Mass/Vol] 0.6 mg/dL 0.2-1.0 [facility] Calcium [Mass/Vol] 9.2 mg/dL 8.5-10.1 [facility] Chloride [Moles/Vol] 100 mmol/L 98-107 [facility] CO2 [Moles/Vol] 27.4 mmol/L 21.0-32.0 [facility] Creatinine [Mass/Vol] 3.70 mg/dL 0.55-1.02 [facility] GFR/1.73 sq M.predicted MDRD (S/P/Bld) [Vol rate/Area] 14 mL/min/{1.73_m2} >=60 [facility] Glucose [Mass/Vol] 142 mg/dL 74-106 [facility] Lactate [Moles/Vol] 1.2 mmol/L 0.4-2.0 [facility] Potassium [Moles/Vol] 4.1 mmol/L 3.5-5.1 [facility] Protein [Mass/Vol] 7.7 g/dL 6.4-8.2 [facility] Sodium [Moles/Vol] 139 mmol/L 136-145 [facility] Urea nitrogen [Mass/Vol] 38.0 mg/dL 7.0-18.0 [facility] Urea nitrogen/Creatinine [Mass ratio] 10.3 mg/mg [facility] Laboratory - Hematology and Cell countson 05-25-2023 Band form neutrophils/100 WBC (Bld) 15.0 % 0-5 [facility] Lymphocytes/100 WBC (Bld) 4.0 % 20.5-60.0 [facility] Monocytes/100 WBC (Bld) 5.0 % 1.7-12.0 [facility] Laboratory - Microbiology an d Antimicrobial susceptibilityon 05-25-2023 SARS-CoV-2 (COVID-19) RNA ITZEL+probe Ql (Unsp spec) Not detected NOT DETECTE [facility] Leukocytes [#/volume] correc clifford for nucleated erythrocytes in Blood by Automated counon 05-25-2023 WBC corrected for nucl RBC Auto (Bld) [#/Vol] 24.6 10 3/uL 4.0-11.0 [facility] MCH Auto (RBC) [Entitic mass ]on 05-25-2023 MCH (RBC) [Entitic mass] 30.3 pg 26.7-34.0 [facility] MCHC Auto (RBC) [Mass/Vol]on 05-25-2023 MCHC (RBC) [Mass/Vol] 31.7 g/dL 29.9-35.2 [facility] MCV Auto (RBC) [Entitic vol] on 05-25-2023 MCV (RBC) [Entitic vol] 95.6 fL 81.0-99.0 [facility] No Panel Informationon 05-25 Adenovirus (PCR) Not detected NOT DETECTE [facility] Bordetella parapertussis DNA (PCR) Not detected NOT DETECTE [facility] Bordetella pertussis (PCR)(Misc) Not detected NOT DETECTE [facility] Chlamydia pneumoniae DNA (PCR) Not detected NOT DETECTE [facility] Coronavirus Type 229E (PCR) Not detected NOT DETECTE [facility] Coronavirus Type HKU1 (PCR) Not detected NOT DETECTE [facility] Coronavirus Type NL63 (PCR) Not detected NOT DETECTE [facility] Coronavirus Type OC43 (PCR) Not detected NOT DETECTE [facility] Enterovirus/Rhinovirus (PCR) Not detected NOT DETECTE [facility] Human Metapneumovirus (PCR) Not detected NOT DETECTE [facility] Influenza A (PCR) Not detected NOT DETECTE [facility] Influenza Type B (RT-PCR) Not detected NOT DETECTE [facility] Mycoplasma pneumoniae (PCR) Not detected NOT DETECTE [facility] Parainfluenza Type 1 (PCR) Not detected NOT DETECTE [facility] Parainfluenza Type 2 (PCR) Not detected NOT DETECTE [facility] Parainfluenza Type 3 (PCR) Not detected NOT DETECTE [facility] Parainfluenza Type 4 (PCR) Not detected NOT DETECTE [facility] Respiratory Syncytial Virus (PCR) Not detected NOT DETECTE [facility] Urine Microscopic Review NO [facility] Absolute Basophils (Manual) 0.00 10 3/uL 0.00-0.10 [facility] Band Neutrophils # (Manual) 3.7 10 3/uL 0.0-0.3 [facility] Eosinophils # (Manual) 0.00 10 3/uL 0.00-0.70 [facility] Lymphocytes # (Manual) 0.98 10 3/uL 1.20-3.80 [facility] Monocytes # (Manual) 1.23 10 3/uL 0.30-0.80 [facility] Reactive Lymphocytes 3.19 [facility] Reactive Lymphocytes 13.0 % [facility] Segmented Neutrophils # (Manual) 15.49 10 3/uL 1.4-6.5 [facility] Troponin I High Sensitivity 12.0 pg/mL 4.0-51.3 [facility] Comment on above: CUT-OFF POINTS HAVE BEEN [...] IN CONJUNCTIONWITH OTHER DIAGNOSTIC AND CLINICAL INFORMATION. No Panel InformationOrdered By: Oumar Gunter on 05-25-2023 Blood Culture 2 [facility] Blood Culture 1 [facility] Platelet mean volume Auto (B ld) [Entitic vol]on 05-25-2023 Platelet mean volume (Bld) [Entitic vol] 10.5 fL 9.5-13.5 [facility] Platelets Auto (Bld) [#/Vol] on 05-25-2023 Platelets (Bld) [#/Vol] 272 10 3/uL 150-450 [facility] Protein Auto test strip (U) [Mass/Vol]on 05-25-2023 Protein (U) [Mass/Vol] TRACE mg/dL NEG/TRACE [facility] RBC Auto (Bld) [#/Vol]on RBC (Bld) [#/Vol] 3.66 10 6/uL 4.20-5.40 [facility] Segmented neutrophils/100 WB C Manual cnt (Bld)on 05-25-2023 Segmented neutrophils/100 WBC (Bld) 63.0 % [facility] Serum or plasma albumin/glob ulin mass ratioon 05-25-2023 Albumin/Globulin [Mass ratio] 0.6 {ratio} [facility] Serum or plasma anion gap de terminationon 05-25-2023 Anion gap [Moles/Vol] 15.7 mmol[facility]L [facility] Serum procalcitonin measurem enton 05-25-2023 Procalcitonin [Mass/Vol] 0.52 ng/mL 0.00-0.50 [facility] Specific gravity Auto test s trip (U) [Rel density]on 05-25-2023 Specific gravity (U) [Rel density] CLEAR CLEAR [facility] Urine glucose measurement by test strip (mass/volume)on 05-25-2023 Glucose Test strip (U) [Mass/Vol] Negative NEGATIVE [facility] Urine hemoglobin detection b y automated test stripon 05-25-2023 Hemoglobin Auto test strip Ql (U) Negative NEGATIVE [facility] Urine nitrite detection by a utomated test stripon 05-25-2023 Nitrite Auto test strip Ql (U) Negative NEGATIVE [facility] Urobilinogen Auto test strip (U) [Mass/Vol]on 05-25-2023 Urobilinogen Qn (U) 0.2 {Valentino'U}/dL 0.2-1.0 [facility] pH Auto test strip (U)on pH (U) 5.0 [pH] 5.0-9.0 [facility] NM priscila perf SPECT rest stron 03-03-2023 NM [place] [address] Nuclear Medicine Report Signed Patient: Catherine Ayers MR#: [id number] : 1945 Acct:[id number] Age/Sex: 77 / F ADM Date: 03/02/23 Loc: Room: Type: [facility] Attending Dr: Linda Renteria MD Copies to: Gustavo Moore MD, [facility] Linda Renteria MD Ordering Provider: Linda Renteria [...] 03/03/23 1712 Dictated By: Gustavo Moore MD, [facility] 03/03/23 1620 Signed By: 03/04/23 1449 Normal [facility] STR cardiac stress/cardiolon 03-03-2023 STR cardiac stress/cardiol [address] [address] Cardiac Stress Test Signed Patient: Catherine Ayers MR#: [id number] : 1945 Acct:[id number] Age/Sex: 77 / F ADM Date: 03/02/23 Loc: EL Room: Type: [facility] CLI Attending Dr: Linda Renteria MD Copies to: Gustavo Moore MD, [facility] Linda Renteria MD Ordering Provider: Linda Renteria [...] separately by Nuclear Cardiology. Transcribed By: NTS 03/04/238 Dictated By: Gustavo Moore MD, [facility] 03/03/231921 Signed By: 03/05/23 0852 Normal [facility] XR knee LT 2Von 07-02-2022 XR knee LT 2V [facility] [address] [address] XRay Report Signed Patient: Catherine Ayers MR#: [id number] : 1945 Acct:[id number] Age/Sex: 77 / F ADM Date: 07/02/22 Loc: [facility] Room: Type: [facility] CLI Attending Dr: Miguel Schultz II, MD Copies [...] Qi Espinoza M.D.07/02/2022 1:42 PM Dictation Location: [id number] Transcribed By: [facility] 07/02/22 1342 Dictated By: Qi Espinoza MD 07/02/22 1341 Signed By: 07/02/22 1342 [facility] XR knee LT 2V [facility] [employer] Other XR knee LT 2V [facility] [employer] Other XR knee LT 2V [address] [place] [address] [employer]ated[employer] Other XR knee LT 2V [address] [employer] Other XR knee LT 2V XRay Report [facility] Other XR knee LT 2V Signed [employer] Other XR knee LT 2V Patient: Catherine Ayers MR#: [id number] [employer] Other XR knee LT 2V [id number] [employer] Other XR knee LT 2V : 1945 Acct:[id number] [employer] Other XR knee LT 2V Age/Sex: 77 / F ADM Date: 07/02/22 [employer] Other XR knee LT 2V Loc: [facility] Room: Type : [facility] [employer] Other XR knee LT 2V Attending Dr: Miguel Schultz II, MD [employer] Other XR knee LT 2V Copies to: Miguel Schultz MD [employer] Other XR knee LT 2V Ordering Provider: Miguel Schultz MD [employer] Other XR knee LT 2V Date of Service: 07/02/22 [employer] Other XR knee LT 2V XR/XR knee LT 2V: Primary osteoarthritis of left knee [employer] Other XR knee LT 2V LEFT KNEE - 2 views No rt [employer] Other XR knee LT 2V COMPARISON: 10/16/2021 [employer] Other XR knee LT 2V CLINICAL DATA: Follow-up knee replacement. [employer] Other XR knee LT 2V AP and lateral standing views were obtained. A knee prosthesis is again visualized. The hardware [employer] Other XR knee LT 2V appears intact and unchanged from the prior. There are no developing fractures or dislocation. [employer] Other XR knee LT 2V There is no sizable knee effusion. [employer] Other XR knee LT 2V XR/XR knee LT 2V [employer] Other XR knee LT 2V IMPRESSION: [employer] Other XR knee LT 2V STABLE KNEE REPLACEMENT. [employer] Other XR knee LT 2V Impression dictated by: Qi Espinoza M.D.07/02/2022 1:42 PM [employer] Other XR knee LT 2V Dictation Location: [facility]- [employer] Other XR knee LT 2V Transcribed By: JACLYN 07/02/22 1342 [employer] Other XR knee LT 2V Dictated By: Qi Espinoza MD 07/02/22 1341 [employer] Other XR knee LT 2V Signed By: [employer] Other XR knee LT 2V 07/02/22 1342 [employer] Other ECHOCARDIO M/2D COMPLETEon 0 10-17-2021 ECHOCARDIO M/2D COMPLETE Patient: CATHERINE AYERS Exam Date: 10/17/2021 : 1945 Gender:F Ordering : DR OUMAR GUNTER M.D. Admission #: [id number] Family : Order #: [id number] CLICK HERE TO VIEW EXAM ECHOCARDIOGRAM REPORT [...] Arguelles M.D. on 10/17/2021 at 17:41 Normal [facility] ANES POSTPROC EVALon 022 ANES POSTPROC EVAL HNO ID: [id number] Author: Maria Guadalupe Lagos MD Service: Anesthesiology Author Type: Anesthesiologist Type: Anesthesia Postprocedure Evaluation Filed: 08/20/2021 12:24 PM Note Text: POST ANESTHESIA EVALUATION NOTE : 1945 Procedure Summary Date: 08/20/21 Room / Location: [address] Anesthesia Start: 112 Anesthesia Stop: 1138 Procedures: PHACOEMULSIFICATION CATARACT IMPLANT [...] August 20, 2021 TIME: 12:23 PM CSN: [id number] Normal [facility] ANES PRE-OPon 08-20-2021 ANES PRE-OP HNO ID: [id number] Author: Maria Guadalupe Lagos MD Service: Anesthesiology Author Type: Anesthesiologist Type: Anesthesia Preprocedure Evaluation Filed: 08/20/2021 9:00 AM Note Text: ANESTHESIOLOGY DAY OF SURGERY NOTE : 1945 Procedure Information Date/Time: 08/20/21 1055 Procedures: PHACOEMULSIFICATION CATARACT IMPLANT INTRAOCULAR LENS W/O ENDOSCOPIC CYCLOPHOTOCOAGULATION (Right Eye) OPHTHALMIC BIOMETRY BY PARTIAL COHERENCE INTERFEROMETRY W/INTRAOCULAR LENS POWER CALCULATION (Right Eye) Location: [address] Surgeons: Jennifer Jones V, MD Estimated [...] and consent discussed: yes. Patient / Responsible Libertarian agrees to proceed: yes Patient / Surrogate [...] August 20, 2021 TIME: 8:59 AM CSN: [id number] Normal [facility] OPERATIVE NOon 08-20-2021 OPERATIVE NO HNO ID: [id number] Author: Jennifer Jones V, MD Service: Ophthalmology Author Type: Physician Type: Operative Report Filed: 08/20/2021 11:39 AM Note Text: OPERATIVE REPORT DATE OF SERVICE: August 20, 2021 PRIMARY SURGEON: Jennifer Jones M.D. NURSING HOME MANAGER: None Procedure(s) (LRB): PHACOEMULSIFICATION CATARACT IMPLANT INTRAOCULAR [...] corneal incision was created temporally with a Pike blade then a 2.4 mm keratome. The anterior chamber was reformed with Viscoat, after which the anterior capsule was opened centrally. Using the Utrata forceps a continuous curvilinear capsulorrhexis of approximately 5.5 mm round was created. Gentle hydrodissection was accomplished using preservative-free lidocaine on a 27-gauge cannula. Using the Tian phacoemulsification unit with the emids curved tip, the anterior chamber was entered [...] Implant Name Type Inv. Item Serial No. Animal Ride Attendant Lot No. LRB Model Num No. Used LENS IOL 0D +13 [employer] - [id number] Intraocular Lens LENS IOL 0D +13 [employer] [id number] [employer] Right [id number] was [...] relinquish care POD #1 Jennifer JONES MD [facility] ANES POSTPROC EVALon 022 ANES POSTPROC EVAL HNO ID: [id number] Author: Chencho Leon MD Service: Anesthesiology Author Type: Anesthesiologist Type: Anesthesia Postprocedure Evaluation Filed: 08/06/2021 1:06 PM Note Text: POST ANESTHESIA EVALUATION NOTE : 1945 Procedure Summary Date: 08/06/21 Room / Location: [facility] Anesthesia Start: 1031 Anesthesia Stop: 1051 Procedures: PHACOEMULSIFICATION CATARACT IMPLANT INTRAOCULAR LENS W/O [...] August 06, 2021 TIME: 1:06 PM CSN: [id number] Normal [facility] ANES PRE-OPon 08-06-2021 ANES PRE-OP HNO ID: [id number] Author: Chencho Leon MD Service: Anesthesiology Author Type: Anesthesiologist Type: Anesthesia Preprocedure Evaluation Filed: 08/06/2021 10:28 AM Note Text: ANESTHESIOLOGY DAY OF SURGERY NOTE : 1945 Procedure Information Date/Time: 08/06/21 1025 Procedures: PHACOEMULSIFICATION CATARACT IMPLANT INTRAOCULAR LENS W/O ENDOSCOPIC CYCLOPHOTOCOAGULATION (Left Eye) OPHTHALMIC BIOMETRY BY PARTIAL COHERENCE INTERFEROMETRY W/INTRAOCULAR LENS POWER CALCULATION (Left Eye) Location: [facility] Surgeons: Jennifer Jones V, MD Estimated body [...] and consent discussed: yes. 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 NURSING HOME MANAGER: None Procedure(s) (LRB): PHACOEMULSIFICATION CATARACT IMPLANT INTRAOCULAR [...] corneal incision was created temporally with a Pike blade then a 2.4 mm keratome. The anterior chamber was reformed with Viscoat, after which the anterior capsule was opened centrally. Using the Utrata forceps a continuous curvilinear capsulorrhexis of approximately 5.5 mm round was created. Gentle hydrodissection was accomplished using preservative-free lidocaine on a 27-gauge cannula. Using the Tian phacoemulsification unit with the emids curved tip, the anterior chamber was entered [...] Implant Name Type Inv. Item Serial No. Animal Ride Attendant Lot No. LRB Model Num No. Used LENS IOL 0D +13 T[employer] UV ABS - [id number] Intraocular Lens LENS IOL 0D +13 [employer] ABS [id number] [employer] Left [id number] was [...] 10:48 AM - Com[facility] with [facility] Dang[facility]1 Jennifer JONES MD [facility] HISTORY PHYSICALon 2 HISTORY PHYSICAL HNO ID: [id number] Author: Shikha Kate APRN.JIN Service: ? Author Type: Nurse Practitioner Type: [...] implants - PAST SURGICAL HISTORY OF [employer] ([employer]) - TOTAL KNEE REPLACEMENT Left FAMILY [...] fevers. 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 No neurological symptoms or problems. Respiratory: No history of current cough or dyspnea, or pneumonia in the past 6 weeks. No history of respiratory/pulmonary symptoms or problems. Cardiovascular: No history of HTN requiring medication, no history of angina, CHF, CA, cardiac surgery or stents. Denies rest pain, gangrene or revascularization/amp utation for PVD. No history of cardiovascular symptoms or problems. +HLD GI: No history of GI symptoms or problems. No history of esophageal varices, recent ascites, or ETOH greater than 2 drinks per day. 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 Normal [facility] US CAROTID ART BILon 022 US CAROTID ART FRACISCO EXAMINATION: US [...] EDWARDO MANE Date: 2021-04-29 07:05 Normal [facility] Covid-19 PCR (CVDTBH)on SARS-CoV-2 (COVID-19) RNA ITZEL+probe Ql (Unsp spec) Detected Critically abnormal NOT DETECTED [facility] Comment on above: Result Comment: This test is not yet approved or cleared by the [place] FDA. When there are no FDA-approved or cleared tests available, and other criteria are met, FDA can make tests available under an emergency access mechanism called an Emergency Use Authorization (EUA). The EUA for this test is supported by the Balance [employer] Hairspring Assembler of Health and Human Service's (HHS's) declaration [...] used). Performed By: #### C VDTBH #### [facility] [address] [place] [address] Dr. Марина Lang THYROID ANTIBODIESon 022 Thyroglobulin Antibody <1.0 Normal 0.0-0.9 [facility] Comment on above: Result Comment: Thyr oglobulin Antibody measured by [facility] Methodology Performed By: #### T HYRABS #### [facility] [address] [place] [address] Dr. Марина Lang Thyroid Peroxidase (TPO) Ab <8 Normal 0-34 [facility] Comment on above: Performed By: #### T HYRABS #### [facility] [address] [place] [address] Dr. Марина Lang CBC AUTO DIFFon 04-01-2021 BASO # 0.1 103/ul Normal 0.0-0.1 [facility] Comment on above: Performed By: #### C BC #### [facility] [address] [place] [address] Dr. Марина Lang Basophils/100 WBC (Bld) 0.9 % Normal 0.2-2.0 [facility] Comment on above: Performed By: #### C BC #### [facility] [address] [place] [address] Dr. Марина Lang EO # 0.3 103/ul Normal 0.0-0.7 [facility] Comment on above: Performed By: #### C BC #### [facility] [address] [place] [address] Dr. Марина Lang Eosinophils/100 WBC (Bld) 5.7 % Normal 0.9-7.0 [facility] Comment on above: Performed By: #### C BC #### [facility] [address] [place] [address] Dr. Марина Lang Erythrocyte distribution width (RBC) [Ratio] 14.0 % Normal 11.0-15.0 [facility] Comment on above: Performed By: #### C BC #### [facility] [address] [place] [address] Dr. Марина Lang Hematocrit (Bld) [Volume fraction] 40.5 % Normal 36.0-48.0 [facility] Comment on above: Performed By: #### C BC #### [facility] [address] [place] [address] Dr. Марина Lang Hemoglobin (Bld) [Mass/Vol] 12.3 g/dL Normal 12.0-16.0 [facility] Comment on above: Performed By: #### C BC #### [facility] [address] [place] [address] Dr. Марина Lang IG # 0.01 10e3/ul Normal 0.00-0.03 [facility] Comment on above: Performed By: #### C BC #### [facility] [address] [place] [address] Dr. Марина Lang IG % 0.2 % Normal 0.0-0.5 [facility] Comment on above: Performed By: #### C BC #### [facility] [address] [place] [address] Dr. Марина Lang LYMPH # 1.5 103/ul Normal 1.2-3.8 [facility] Comment on above: Performed By: #### C BC #### [facility] [address] [place] [address] Dr. Марина Lang Lymphocytes/100 WBC (Bld) 27.9 % Normal 20.5-60.0 [facility] Comment on above: Performed By: #### C BC #### [facility] [address] [place] [address] Dr. Марина Lang MANUAL DIFF REQ NO Normal [facility] Comment on above: Performed By: #### C BC #### [facility] [address] [place] [address] Dr. Марина Lang MCH (RBC) [Entitic mass] 28.6 pg Normal 26.7-34.0 [facility] Comment on above: Performed By: #### C BC #### [facility] [address] [place] [address] Dr. Марина Lang MCHC (RBC) [Mass/Vol] 30.4 g/dL Normal 29.9-35.2 [facility] Comment on above: Performed By: #### C BC #### [facility] [address] [place] [address] Dr. Марина Lang MCV (RBC) [Entitic vol] 94.2 fL Normal 81.0-99.0 [facility] Comment on above: Performed By: #### C BC #### [facility] [address] [place] [address] Dr. Марина Lang MONO # 0.5 103/ul Normal 0.3-0.8 [facility] Comment on above: Performed By: #### C BC #### [facility] [address] [place] [address] Dr. Марина Lang Monocytes/100 WBC (Bld) 9.0 % Normal 1.7-12.0 [facility] Comment on above: Performed By: #### C BC #### [facility] [address] [place] [address] Dr. Марина Lang NEUT # 3.1 103/ul Normal 1.4-6.5 [facility] Comment on above: Performed By: #### C BC #### [facility] [address] [place] [address] Dr. Марина Lang Neutrophils/100 WBC (Bld) 56.3 % Normal 43.0-75.0 [facility] Comment on above: Performed By: #### C BC #### [facility] [address] [address] [address] Марина Lang Platelet mean volume (Bld) [Entitic vol] 9.9 fL Normal 9.5-13.5 [facility] Comment on above: Performed By: #### C BC #### [facility] [address] [place] [address] Dr. Марина Lang PLT 172 103/ul Normal 150-450 [facility] Comment on above: Performed By: #### C BC #### [facility] [address] [address] [address] Марина Lang RBC 4.30 106/ul Normal 4.20-5.40 [facility] Comment on above: Performed By: #### C BC #### [facility] [address] [place] [address] Dr. Марина Lang WBC 5.4 103/ul Normal 4.0-11.0 [facility] Comment on above: Performed By: #### C BC #### [facility] [address] [place] [address] Dr. Марина Lang FREE T4on 04-01-2021 Free T4 [Mass/Vol] 1.06 ng/dL Normal 0.78-2.19 [facility] Comment on above: Performed By: #### F T4 #### [facility] [address] [place] [address] Dr. Марина Lang GLYCOHEMOGLOBIN A1Con 2021 ADA RECOMMENDATION ADA THERAPEUTIC TARGET 6.0 - 7.0 ACTION SUGGESTED > 7.0 Normal [facility] Comment on above: Performed By: #### A 1C #### [facility] [address] [place] [address] Dr. Марина Lang Glucose [Mass/Vol] 131 mg/dL Normal [facility] Comment on above: Performed By: #### A 1C #### [facility] [address] [place] [address] Dr. Марина Lang HbA1c (Bld) [Mass fraction] 6.2 % Critically high <=6.0 [facility] Comment on above: Performed By: #### A 1C #### [facility] [address] [address] [address] Марина Lang PROF CHEM 8 (BAS METB)on Anion gap [Moles/Vol] 8.9 mmol/L Normal [facility] Comment on above: Performed By: #### B MP, TSH #### [facility] [address] [place] [address] Dr. Марина Lang Calcium [Mass/Vol] 10.0 mg/dL Normal 8.4-10.2 [facility] Comment on above: Performed By: #### B MP, TSH #### [facility] [address] [place] [address] Dr. Марина Lang Chloride [Moles/Vol] 105 mmol/L Normal 98-107 [facility] Comment on above: Performed By: #### B MP, TSH #### [facility] [address] [place] [address] Dr. Марина Lang CO2 [Moles/Vol] 35.0 mmol/L Critically high 22.0-30.0 [facility] Comment on above: Performed By: #### B MP, TSH #### [facility] [address] [place] [address] Dr. Марина Lang Creatinine [Mass/Vol] 1.10 mg/dL Critically high 0.52-1.04 [facility] Comment on above: Performed By: #### B MP, TSH #### [facility] [address] [place] [address] Dr. Марина Lang EGFR-AF NORWEGIAN 59 mL/min/1.73m2 Critically low >=60 [facility] Comment on above: Performed By: #### B MP, TSH #### [facility] [address] [place] [address] Dr. Марина Lang EGFR-NON AF NORWEGIAN 48 mL/min/1.73m2 Critically low >=60 [facility] Comment on above: Performed By: #### B MP, TSH #### [facility] [address] [place] [address] Dr. Марина Lang Glucose [Mass/Vol] 107 mg/dL Critically high 74-106 [facility] Comment on above: Performed By: #### B MP, TSH #### [facility] [address] [place] [address] Dr. Марина Lang Potassium [Moles/Vol] 4.9 mmol/L Normal 3.4-5.0 [facility] Comment on above: Performed By: #### B MP, TSH #### [facility] [address] [place] [address] Dr. Марина Lang Sodium [Moles/Vol] 144 mmol/L Normal 137-145 [facility] Comment on above: Performed By: #### B MP, TSH #### [facility] [address] [place] [address] Dr. Марина Lang Urea nitrogen [Mass/Vol] 17.0 mg/dL Normal 7.0-17.0 [facility] Comment on above: Performed By: #### B MP, TSH #### [facility] [address] [place] [address] Dr. Марина Lang Urea nitrogen/Creatinine [Mass ratio] 15.5 mg/mg Normal [facility] Comment on above: Performed By: #### B MP, TSH #### [facility] [address] [place] [address] Dr. Марина Lang TSHon 04-01-2021 TSH 2.603 uIU/mL Normal 0.470-4.680 [facility] Comment on above: Performed By: #### B MP, TSH #### [facility] [address] [place] [address] Dr. Марина Lang TSH RANGE SEE BELOW Normal [facility] Comment on above: Result Comment: <0.3 4 UIU/ml HYPERTHYROID 0.34-5.60 UIU/ml EUTHYROID >5.60 UIU/ml HYPOTHYROID Performed By: #### B MP, TSH #### [facility] [address] [place] [address] Dr. Марина Lang IOL BIOMETRY W/ IOL CALC OU (BOTH EYES) [facility] Vital Signs Date Time Vital Sign Value Performing Clinician Facility 06-02-2023 09:33-0500 Body height 160.02 cm MD Oumar Gunter Work Phone: [facility] 06-02-2023 09:33-0500 Body mass index (BMI) [Ratio] 33.6 kg/m2 MD Oumar Gunter Work Phone: [facility] 06-02-2023 09:33-0500 Body weight 86.18 kg MD Oumar Gunter Work Phone: [facility] 06-02-2023 09:33-0500 Diastolic blood pressure 79 mm[Hg] MD Oumar Gunter Work Phone: [facility] 06-02-2023 09:33-0500 Heart rate 120 /min MD Oumar Gunter Work Phone: [facility] 06-02-2023 09:33-0500 Systolic blood pressure 119 mm[Hg] MD Oumar Gunter Work Phone: [facility] 03-10-2023 10:00-0500 Body height 160.02 cm Oumar Gunter Other [facility] [employer] Other 03-10-2023 10:00-0500 Body mass index (BMI) [Ratio] 34.68 kg/m2 Oumar Gunter Other [facility] [employer] Other 03-10-2023 10:00-0500 Body weight 88.81 kg Oumar Gunter Other [facility] [employer] Other 03-10-2023 10:00-0500 Diastolic blood pressure 70 mm[Hg] Oumar Gunter Other [facility] [employer] Other 03-10-2023 10:00-0500 Systolic blood pressure 136 mm[Hg] Oumar Gunter Other [facility] [employer] Other 03-09-2023 11:20-0500 Body height 160.02 cm Linda Renteria Other [facility] [employer] Other 03-09-2023 11:20-0500 Body mass index (BMI) [Ratio] 34.72 kg/m2 Myra Other [employer] Other 03-09-2023 11:20-0500 Body weight 88.91 kg Myra Other [employer] Other 03-09-2023 11:20-0500 Diastolic blood pressure 70 mm[Hg] Myra Other [employer] Other 03-09-2023 11:20-0500 Respiratory rate 20 /min Myra Other [employer] Other 03-09-2023 11:20-0500 SaO2% (BldA) [Mass fraction] 92 % Myra Other [employer] Other 03-09-2023 11:20-0500 Systolic blood pressure 132 mm[Hg] Myra Other [employer] Other 02-08-2023 10:00-0500 Body height 160.02 cm Myra Other [employer] Other 02-08-2023 10:00-0500 Body mass index (BMI) [Ratio] 34.54 kg/m2 Myra Other [employer] Other 02-08-2023 10:00-0500 Body weight 88.45 kg Myra Other [employer] Other 02-08-2023 10:00-0500 Diastolic blood pressure 74 mm[Hg] Myra Other [employer] Other 02-08-2023 10:00-0500 Respiratory rate 18 /min Linda Renteria Other [employer] Other 02-08-2023 10:00-0500 SaO2% (BldA) [Mass fraction] 94 % Linda Renteria Other [employer] Other 02-08-2023 10:00-0500 Systolic blood pressure 132 mm[Hg] Linda Renteria Other [employer] Other 09-08-2022 10:30-0400 Body height 160.02 cm Oumar Gunter Other [employer] Other 09-08-2022 10:30-0400 Body mass index (BMI) [Ratio] 34.18 kg/m2 Oumar Gunter Other [employer] Other 09-08-2022 10:30-0400 Body weight 87.54 kg Oumar Gunter Other [employer] Other 09-08-2022 10:30-0400 Diastolic blood pressure 76 mm[Hg] Oumar Gunter Other [employer] Other 09-08-2022 10:30-0400 Systolic blood pressure 134 mm[Hg] Oumar Gunter Other [employer] Other 07-02-2022 10:45-0400 Body height 160.02 cm Miguel Schultz II Other [employer] Other 07-02-2022 10:45-0400 Body mass index (BMI) [Ratio] 35.6 kg/m2 Miguel Rodríguezle II Other [employer] Other 07-02-2022 10:45-0400 Body weight 91.17 kg Miguel Denver II Other [employer] Other 09-04-2021 10:45-0400 Body height 160.02 cm Miguel Denver II Other [employer] Other 09-04-2021 10:45-0400 Body mass index (BMI) [Ratio] 35.6 kg/m2 Miguel Saw II Other [employer] Other 09-04-2021 10:45-0400 Body weight 91.17 kg Miguel Denver II Other [employer] Other 08-07-2021 16:30-0400 Body height 160.02 cm Miguel Denver II Other [employer] Other 08-07-2021 16:30-0400 Body mass index (BMI) [Ratio] 35.6 kg/m2 Miguel Saw II Other [employer] Other 08-07-2021 16:30-0400 Body weight 91.17 kg Miguel Denver II Other [employer] Other 07-30-2021 09:12-0400 Body height 161.3 cm Pacc 1 Work Phone: [facility] 07-30-2021 09:12-0400 Body temperature 97 [degF] Pacc 1 Work Phone: [facility] 07-30-2021 09:12-0400 Body weight 93.44 kg Pacc 1 Work Phone: [facility] 07-30-2021 09:12-0400 Diastolic blood pressure 85 mm[Hg] Pacc 1 Work Phone: [facility] 07-30-2021 09:12-0400 Heart rate 101 /min Pacc 1 Work Phone: [facility] [facility] 07-30-2021 09:12-0400 Respiratory rate 16 /min Pacc 1 Work Phone: [facility] 07-30-2021 09:12-0400 SaO2% (BldA) [Mass fraction] 96 % Pacc 1 Work Phone: [facility] 07-30-2021 09:12-0400 Systolic blood pressure 139 mm[Hg] Pacc 1 Work Phone: [facility] 07-21-2021 12:30-0400 Diastolic blood pressure 78 mm[Hg] MD Omuar Gunter Work Phone: [facility] 07-21-2021 12:30-0400 Heart rate 98 /min MD Oumar Gunter Work Phone: [facility] 07-21-2021 12:30-0400 Respiratory rate 16 /min MD Oumar Gunter Work Phone: [facility] 07-21-2021 12:30-0400 SaO2% (BldA) [Mass fraction] 94 % MD Oumar Gunter Work Phone: [facility] 07-21-2021 12:30-0400 Systolic blood pressure 146 mm[Hg] MD Oumar Gunter Work Phone: [facility] 07-21-2021 12:00-0400 Inhaled oxygen flow rate 1 L/min MD Oumar Gunter Work Phone: [facility] 07-21-2021 10:21-0400 Body temperature 97.2 [degF] MD Oumar Gunter Work Phone: [facility] 07-21-2021 07:16-0400 Body height 161.29 cm MD Oumar Gunter Work Phone: [facility] 07-21-2021 07:16-0400 Body mass index (BMI) [Ratio] 35.7 kg/m2 MD Oumar Gunter Work Phone: [facility] 07-21-2021 07:16-0400 Body weight 93 kg MD Oumar Gunter Work Phone: [facility] 07-04-2021 10:30-0400 Body height 160.02 cm Miguel Denver II Other [facility] Other 07-04-2021 10:30-0400 Body mass index (BMI) [Ratio] 35.42 kg/m2 Miguel Denver II Other [facility] [facility] Other 07-04-2021 10:30-0400 Body weight 90.72 kg Miguel Denver II Other [facility] Other 05-28-2021 11:15-0500 Body height 160.02 cm Miguel Saw II Other [facility] Other 05-28-2021 11:15-0500 Body mass index (BMI) [Ratio] 35.6 kg/m2 Miguel Denver II Other [facility] [facility] Other 05-28-2021 11:15-0500 Body weight 91.17 kg Miguel Denver II Other [employer] [facility] Other Encounters Encounter Date Encounter Type Care Provider Facility Start: 06-15-2023 End: 06-15-2023 ambulatory Fidelina Shawn Facility:[facility] Start: 06-15-2023 End: 06-15-2023 ambulatory MD Oumar Gunter Work Phone: [facility] Work Phone: Start: 06-15-2023 End: 06-15-2023 Departed Referred MD Oumar Gunter Work Phone: [facility]-LAB [facility] Start: 06-15-2023 Non-patient / Non-visit MD Bing Gunter Work Phone: [facility] Work Phone: Start: 06-02-2023 End: 06-02-2023 Patient encounter procedure MD Oumar Gunter Work Phone: [facility] Work Phone: Start: 05-31-2023 Non-patient / Non-visit MD Bing Gunter Work Phone: [facility] Work Phone: Start: 05-29-2023 Non-patient / Non-visit MD Bing Gunter Work Phone: [facility] Work Phone: Start: 05-28-2023 Non-patient / Non-visit MD Bing Gunter Work Phone: [facility] Work Phone: Start: 05-27-2023 Non-patient / Non-visit MD Bing Gunter Work Phone: [facility] Work Phone: Start: 05-27-2023 Non-patient / Non-visit MD Bing Gunter Work Phone: [facility] Work Phone: Start: 05-26-2023 Non-patient / Non-visit MD Bing Gunter Work Phone: [facility] Work Phone: Start: 05-25-2023 Non-patient / Non-visit MD Bing Gunter Work Phone: [facility] Work Phone: Start: 05-04-2023 End: 05-04-2023 ambulatory Oumar Gunter Other [facility] Other Start: 05-04-2023 Telephone encounter Oumar Gunter [facility] Start: 03-10-2023 End: 03-10-2023 ambulatory Oumar Gunter Other [employer] [facility] Other Start: 03-10-2023 Office outpatient vi sit 15 minutes Oumar Gunter [facility] Start: 03-09-2023 End: 03-09-2023 ambulatory Myra Other [facility] Other Start: 03-09-2023 Office outpatient vi sit 25 minutes Linda Winkleroroge [facility] Start: 03-03-2023 Telephone encounter Oumar Gunter [facility] Start: 03-03-2023 End: 03-03-2023 ambulatory MD Oumar Gunter Work Phone: [facility] Other Start: 03-03-2023 End: 03-03-2023 Patient encounter procedure MD Oumar Gunter Work Phone: [facility]-Respiratory Therapy Work Phone: Start: 03-02-2023 End: 03-02-2023 ambulatory Oumar Gunter Facility:[facility] Start: 03-02-2023 End: 03-02-2023 Patient encounter procedure MD Oumar Gunter Work Phone: [facility]-Electrodiagnostics Work Phone: Start: 02-25-2023 End: 02-25-2023 ambulatory MD Oumar Gunter Work Phone: [facility] Work Phone: Start: 02-25-2023 End: 02-25-2023 Patient encounter procedure MD Oumar Gunter Work Phone: [facility]-Electrodiagnostics Work Phone: Start: 02-15-2023 End: 02-15-2023 ambulatory Oumar Gunter Other [facility] Other Start: 02-15-2023 Telephone encounter Oumar Gunter [facility] Start: 02-10-2023 End: 02-10-2023 ambulatory Linda Winkleroroge Other [facility] Other Start: 02-10-2023 Telephone encounter Linda Winkleroroge [facility] [employer] Start: 02-08-2023 End: 02-08-2023 ambulatory Myra Other [facility] Other Start: 02-08-2023 Office outpatient ne w 45 minutes Myra [facility] Start: 02-01-2023 End: 02-01-2023 ambulatory Oumar Shasha Other [facility] Other Start: 02-01-2023 Telephone encounter Oumar Gunter [facility] Start: 01-05-2023 End: 01-05-2023 ambulatory Oumar Shasha Other [facility] Other Start: 01-05-2023 Telephone encounter Oumar Gunter [facility] Start: 12-31-2022 End: 12-31-2022 ambulatory Oumar Shasha Other [facility] Other Start: 12-31-2022 Telephone encounter Oumar Gunter [facility] Start: 10-01-2022 End: 10-01-2022 ambulatory Oumar Shasha Other [facility] Other Start: 10-01-2022 Telephone encounter Oumar Gunter [facility] Start: 09-23-2022 End: 09-23-2022 ambulatory Oumar Gunter Other [facility] Other Start: 09-23-2022 Telephone encounter Oumar Gunter [facility] Start: 09-09-2022 End: 09-09-2022 ambulatory Oumar Shasha Other [facility] Other Start: 09-09-2022 Telephone encounter Oumar Gunter [facility] Start: 09-08-2022 End: 09-08-2022 ambulatory Oumar Gunter Other [facility] Other Start: 09-08-2022 Office outpatient vi sit 25 minutes Oumar Gunter [facility] Start: 07-03-2022 End: 07-03-2022 ambulatory Oumar Gunter Other [facility] Other Start: 07-03-2022 Telephone encounter Oumar Gunter [facility] Start: 07-02-2022 End: 07-02-2022 Patient encounter procedure MD Oumar Gunter Work Phone: [facility] Start: 07-02-2022 End: 07-02-2022 ambulatory Miguel Schultz II Facility:[facility] Start: 07-02-2022 End: 07-02-2022 ambulatory MD Oumar Gunter Work Phone: [facility] Work Phone: Start: 06-03-2022 End: 06-03-2022 ambulatory Oumar Gunter Other [facility] Other Start: 06-03-2022 Telephone encounter Oumar Gunter [facility] Start: 04-08-2022 End: 04-08-2022 ambulatory Oumar Gunter Other [facility] Other Start: 04-08-2022 Telephone encounter Oumar Gunter [facility] Start: 02-02-[address] OUMAR GUNTER Facil ity:[facility]1 Start: 10-17-2021 End: 10-18-[address] OUMAR GUNTER Facility:[facility] Start: 10-16-2021 End: 10-16-2021 Patient encounter procedure MD Oumar Gunter Work Phone: [facility] Start: 09-18-2021 End: 09-18-2021 ambulatory Miguel Denver II Other [facility] [facility] Other Start: 09-18-2021 Office outpatient vi sit 15 minutes Miguel Denver II [facility] Start: 09-04-2021 (Post-Op) Post-Op Miguel Denver II [facility] Start: 09-04-2021 End: 09-04-2021 ambulatory Miguel Denver II Other [facility] Other Start: 09-04-2021 End: 09-04-2021 Patient encounter procedure MD Oumar Gunter Work Phone: [facility] Start: 08-27-2021 End: 10-03-2021 ambulatory MIGUEL RODRÍGUEZLE Facility:[facility] Start: 08-20-2021 End: 08-20-2021 Patient encounter procedure Mary Pacheco OD Work Phone: Ophthalmology Comment on above: S/P cataract extract ion and insertion of intraocular lens, left (Primary Dx); 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 Start: 08-07-2021 (Post-Op) Post-Op Miguel Saw II [facility] Start: 08-07-2021 End: 08-07-2021 ambulatory Miguel Saw II Other [facility] Other Start: 08-07-2021 End: 08-07-2021 Patient encounter procedure Jennifer Jones MD Work Phone: Ophthalmology Comment on above: S/P cataract extract ion and insertion of intraocular lens, left (Primary Dx); 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 Start: 07-30-2021 End: 07-30-2021 Patient encounter procedure [facility] Work Phone: Ophthalmology Comment on above: Combined forms of ag e-related cataract of both eyes Start: 07-30-2021 End: 07-30-2021 [facility]mission to [facility] 1 Work Phone: [facility] Start: 07-30-2021 End: 07-30-2021 ambulatory [facility] [place] 1 Work Phone: Pre Anesthesia Comment on above: Pre-op evaluation (P rimary Dx); Cataract of both eyes, unspecified cataract type; Other hyperlipidemia; Complex regional pain syndrome type 1, affecting unspecified site Start: 07-30-2021 End: 07-30-2021 Preprocedural examination done [facility] Luba Armstrong Work Phone: Pre Anesthesia Start: 07-23-2021 End: 07-23-2021 ambulatory Miguel Saw II Other [facility] Other Start: 07-23-2021 Telephone encounter Miguel Denver II [facility] Start: 07-21-2021 End: 07-21-2021 ambulatory Miguel Denver II Other [facility] [facility] Other Start: 07-21-2021 Telephone encounter Miguel Denver II [facility] Start: 07-21-2021 End: 07-21-2021 Admission to same day surgery center MD Oumar Gunter Work [facility]: [facility] [place] Start: 07-11-2021 (Prolonged) Prolonge d Services Miguel Denver II [facility] Start: 07-11-2021 End: 07-11-2021 ambulatory Miguel Saw II Other [facility] Other Start: 07-10-2021 End: 07-10-2021 ambulatory Miguel Denver II Other [facility] Other Start: 07-10-2021 Telephone encounter Miguel Saw II [facility] Start: 07-04-2021 End: 07-04-2021 ambulatory Miguel Denver II Other [facility] Other Start: 07-04-2021 Encounter for other preprocedural examination Miguel Saw II [facility] Start: 07-04-2021 Patient encounter procedure Miguel Schultz II [facility] Start: 05-28-2021 End: 05-28-2021 ambulatory Miguel Schultz II Other [facility] Other Start: 05-28-2021 Encounter for other preprocedural examination Miguel Adameashley RUFFIN [facility] Start: 05-28-2021 Office outpatient vi sit 40 minutes Miguel Rodríguezervin RUFFIN [facility] Start: 04-28-2021 End: 04-29-[address] OUMAR GUNTER Facility:[facility] Start: 04-03-2021 End: 04-03-[address] OUMAR GUNTER Facility:[facility] Start: 04-01-2021 End: 04-02-[address] OUMAR GUNTER Facility:[facility] Start: 02-04-2021 End: 02-05-2021 ambulatory CHRISTIAN Sweetie MEAGAN Facility:[facility] Procedures Date Procedure Procedure Detail Performing Clinician [...] depression screening assessment [facility] Work Phone: Plan of Treatment Date Care Activity Detail Author Start: 06-02-2023 Patient referral [facility] Work Phone: Start: 03-02-2023 Radionuclide myocard ial perfusion stress study NM priscila perf SPECT rest & str [facility] Start: 11-27-2021 Influenza vaccination INFLUENZ A (Season Ended) [facility] Start: 07-21-2021 End: 07-21-2021 [facility] Work Phone: Start: 06-11-2021 COVID-19 VACCINE (4 - Booster for Pfizer series) COVID-19 VACCINE (4 - Booster for Pfizer series) [facility] Start: 03-29-2021 ADVANCE DIRECTIVE DISCUSSION ADVANCE DIRECTIVE DISCUSSION [facility] Start: 01-10-2017 DIABETES SCREEN DIABETES SCREEN [facility] Start: 07-01-2016 Adult depression screening assessment DEPRESSION SCREENING [facility] Start: 2010 BONE DENSITY BONE DENSITY [facility] Start: 2010 PNEUMOVAX AGE 65 AND OVER WITH 5YR LOOKBACK (#1) PNEUMOVAX AGE 65 AND OVER WITH 5YR LOOKBACK (#1) [facility] Start: 02-19-2010 SHINGRIX VACCINE (2 of 3) ESPANA GRIX VACCINE (2 of 3) [facility] Start: 1964 Urine microalbumin profile DTAP,TDAP,TD (1 - Tdap) [facility] Start: 1963 ANNUAL PCP TEAM CARTON LINER FROILAN DISEASE VISIT ANNUAL PCP TEAM CHRONIC DISEASE VISIT [facility] Start: 1963 HEPATITIS C SCREENING HEPATITIS C SC LAUREN [facility] Start: 1951 PNEUMOCOCCAL: 65+ (1 - PCV) PNEUMOCOCCAL: 65+ (1 - PCV) [facility] referral [facility] Immunizations Immunization Date Immunization Notes Care Provider Zenaida grant 01-20-2023 influenza, high dose seasonal, preservative-free Oumar Gunter Other [facility] Other 01-20-2023 influenza virus vaccine, unspecified formulation MD Oumar Gunter Work Phone: [facility] 01-09-2022 influenza virus vaccine, split virus (incl. purified surface antigen) Oumar Gunter Other [facility] [facility] Other 01-09-2022 influenza virus vaccine, unspecified formulation MD Oumar Gunter Work Phone: [facility] 02-11-2021 COVID-19 mRNA, Comirnaty (Pfizer) MD Oumar Gunter Work Phone: [facility] 01-09-2021 influenza virus vaccine, split virus (incl. purified surface antigen) Oumar Gunter Other [facility] [facility] Other 01-09-2021 influenza virus vaccine, unspecified formulation MD Oumar Gunter Work Phone: [facility] 05-30-2020 COVID-19 mRNA, Comirnaty (Pfizer) MD Oumar Gunter Work Phone: [facility] 05-09-2020 COVID-19 mRNA, Comirnaty (Pfizer) MD Oumar Gunter Work Phone: [facility] 12-14-2019 influenza virus vaccine, split virus (incl. purified surface antigen) uOmar Gunter Other [facility] Other 12-14-2019 influenza virus vaccine, unspecified formulation MD Oumar Gunter Work Phone: [facility] 01-12-2019 influenza virus vaccine, split virus (incl. purified surface antigen) Oumar Gunter Other [facility] [facility] Other 01-12-2019 influenza virus vaccine, unspecified formulation MD Oumar Gunter Work Phone: [facility] 12-25-2009 zoster vaccine, live Eye [facility] [employer] Work Phone: [facility] Payers Date Payer Category Payer Medicare HUMANA MEDICARE HU[employer]NA MEDICARE PPO [id number] 2021-Present [phone] [address] [address] [place] [address] PPO [id number] 1959 Medicare [id number] 1959 Self-pay [id number] 1945 Unknown [id number] 1945 Unknown [id number] 1945 Unknown [id number] 1945 Unknown [id number] 1945 Unknown [id number] 1945 Unknown [id number] 1945 Unknown [id number] Unknown [id number] Unknown [id number] Unknown [id number] Unknown [id number] Social History Date Type Detail Facility Start: 12-25-2010 End: 07-21-2021 Tobacco smoking status NHIS Never smoked tobacco [facility] Start: 12-25-2010 Tobacco use and exposure Smokeless tobacco non-user [facility] Start: 07-30-2021 End: 08-20-2021 Alcohol intake Current drinker of alcohol (finding) [facility] Start: 12-25-2010 History SDOH Alcohol Comment very rare [facility] Start: 1945 Sex Assigned At Female C [facility] Start: 06-29-2021 End: 08-06-2021 Exposure to SARS-CoV-2 (event) Not sure [facility] Sex Assigned At Sex Assigned At [facility] [facility] [facility] Other Medical Equipment Procedure Code Equipment Code Equipment Origin al Text Equipment Identifier Dates Arthroplasty, knee, total, minimally invasive Orthopaedic cement, non-medicated [id number] FDA Start: 07-21-2021 Arthroplasty, knee, total, minimally invasive Uncoated knee femur prosthesis [id number] FDA Start: 07-21-2021 Arthroplasty, knee, total, minimally invasive Tibial insert [id number] FDA Start: 07-21-2021 Arthroplasty, knee, total, minimally invasive Polyethylene patella prosthesis [id number] FDA Start: 07-21-2021 Arthroplasty, knee, total, minimally invasive Knee stem [id number] FDA Start: 07-21-2021 Arthroplasty, knee, total, minimally invasive Uncoated knee tibia prosthesis, metallic [id number] FDA Start: 07-21-2021 Genrtr Nrstm Pls Imp Chrg Kt - [id number] Start: 01-18-2014 Kcz-Xc-N-Kind Implant - [id number] Start: 11-30-2013 Comment on above: Description: LINEAR ST 70CM 8 CONTACT LEAD KIT Lrq-Um-P-Kind Implant - [id number] Start: 01-18-2014 Comment on above: Description: CLIK AN CHOR Kit Stim 50cm Li n 8 Cntct Ld - [id number] Start: 01-18-2014 Lens Iol 0d +13 Tony Uv Abs - [id number] Start: 08-06-2021 Comment on above: Description: -0.39 Lens Iol 0d +13 Tony Uv Abs - [id number] Start: 08-20-2021 Comment on above: Description: -0.48 Goals Date Patient Goal Desired Activity /State Clinical Notes 02-05-2021 to 05-04-2023 Note Date & Type Note Facility 05-04-2023 Evaluation note Encounter Date Diagnosis Assessment Notes Apr, Neuropathic pain, leg, bilateral (ICD-10 - G57.93) [facility] Other 12-13-2023 Evaluation note* Encounter Date Diagnosis [...] from Cardiology - followup in 1 yr. [facility] Other 12-12-2023 Evaluation note* Encounter Date Diagnosis [...] Gunter for abnormal echocardiogram. Echo preformed at [facility] 12/29/2022 showed EF 55-60% with normal [...] (chronic obstructive pulmonary disease) (ICD-10 - J44.9) [facility] Other 12-06-2023 Evaluation note* Encounter Date Diagnosis Assessment Notes Treatment Notes Treatment Clinical Notes Feb, Neuropathic pain, leg, bilateral (ICD-10 - G57.93) [facility] Other 11-20-2023 Evaluation note* Encounter Date Diagnosis Assessment Notes Treatment Notes Treatment Clinical Notes Jan, Pulmonary HTN (ICD-10 - I27.20) [facility] Other 11-13-2023 Evaluation note* Encounter Date Diagnosis [...] Gunter for abnormal echocardiogram. Echo preformed at [facility] 12/29/2022 showed EF 55-60% with normal [...] - R06.02) Jan, Diaphoresis (ICD-10 - R61) [facility] Other 11-06-2023 Evaluation note* Encounter Date Diagnosis Assessment Notes Treatment Notes Treatment Clinical Notes Jan, Neuropathic pain, leg, bilateral (ICD-10 - G57.93) [facility] Other 10-05-2023 Evaluation note* Encounter Date Diagnosis Assessment Notes Treatment Notes Treatment Clinical Notes Dec, Acute thoracic back pain, unspecified back pain laterality (ICD-10 - M54.6) [facility] Other 07-06-2023 Evaluation note* Encounter Date Diagnosis Assessment Notes Treatment Notes Treatment Clinical Notes Sep, Acute thoracic back pain, unspecified back pain laterality (ICD-10 - M54.6) [facility] Other 06-13-2023 Evaluation note* Encounter Date Diagnosis Assessment Notes Treatment Notes Treatment Clinical Notes Aug, OAB (overactive bladder) (ICD-10 - N32.81) States med does help - requests refill Aug, Word finding difficulty (ICD-10 - R47.89) Agrees to MRI and referral to Neurology for further recommendations. Discussed area of brain that controls our speech and relates to words. Pt expresses understanding.. Aug, Peripheral neuropathic pain (ICD-10 - M79.2) Requests refill. Aug, Pain in thoracic spine (ICD-10 - M54.6) Reviewed OARRS report. States that present medications do control her symptoms. [facility] Other 04-07-2023 Evaluation note* Encounter Date Diagnosis Assessment Notes Treatment Notes Treatment Clinical Notes Jun, Acute thoracic back pain, unspecified back pain laterality (ICD-10 - M54.6) [facility] Other 04-06-2023 Evaluation note* Encounter Date Diagnosis Assessment Notes Treatment Notes Treatment Clinical Notes Jun, Primary osteoarthritis of left knee (ICD-10 - M17.12) Jun, Aftercare following joint replacement surgery (ICD-10 - Z47.1) Jun, Presence of left artificial knee joint (ICD-10 - Z96.652) Jun, Other [facility] at [facility] on 07/21/2021 Happy with surgical result Follow up yearly with standing AP and lateral xrays of the left knee Patient instructed to call with any questions or concerns. [facility] [facility] Other 06-23-2022 Evaluation note* Encounter Date Diagnosis Assessment Notes Treatment Notes Treatment Clinical Notes Aug, Primary osteoarthritis of left knee (ICD-10 - M17.12) Aug, Aftercare following joint replacement surgery (ICD-10 - Z47.1) Aug, Presence of left artificial knee joint (ICD-10 - Z96.652) Aug, Other [facility] TKA at [facility] on 07/21/2021 Overall doing very well. The Medrol Dosepak seem to help her significantly with the inflammation. She can continue activities as tolerated and continue working with physical therapy as recommended. Follow-up in 4 weeks for repeat examination and long standing x-rays. [facility] Other 06-09-2022 Evaluation note* Encounter Date Diagnosis Assessment Notes Treatment Notes Treatment Clinical Notes Aug, Primary osteoarthritis of left knee (ICD-10 - M17.12) Aug, Aftercare following joint replacement surgery (ICD-10 - Z47.1) Aug, Presence of left artificial knee joint (ICD-10 - Z96.652) Aug, Other [facility] TKA at [facility] on 07/21/2021 Doing well. We will get her on a Medrol Dosepak to try and help with some of this inflammation I think that is going on in that knee. I will see her back in 2 weeks just to recheck to make sure she is continuing to improve. Patient may continue activities as tolerated. Continue PT as recommended. Continue taking [id number] anti-inflammatorie s as needed for assistance with swelling and pain associated with the operative extremity. Follow-up in 2 for a recheck and then 4 weeks for repeat examination and long standing x-rays. [employer] Other 05-25-2022 NoteHNO ID: [id number] Author: Mary Pacheco OD Service: ? Author Type: ANIMAL HUSBANDMAN Type: Progress Notes Filed: 08/20/2021 8:56 AM [...] all of its relevant components. Mary Pacheco, PAGE August 20, 2021 8:55 [facility]05-25-2022 History of Present illness Narrative* Mary Pacheco, PAGE - 08/20/2021 8:55 AM EDT ASSESSMENT/PLAN: (Z98.42, [...] 20, 2021 8:55 AM documented in this encounterOhio[facility] Evaluation note* Encounter Date Diagnosis Assessment Notes Treatment Notes Treatment Clinical Notes July, Primary osteoarthritis of left knee (ICD-10 - M17.12) July, Aftercare following joint replacement surgery (ICD-10 - Z47.1) July, Presence of left artificial knee joint (ICD-10 - Z96.652) July, Other [facility] at [facility] on 07/21/2021 Doing well. Zipline removed. [...] 3 view x-rays of the left knee. [employer] Other 05-12-2022 NoteHNO ID: [id number] Author: Mary Pacheco OD Service: ? Author Type: ANIMAL HUSBANDMAN Type: Progress Notes Filed: 08/07/2021 9:08 AM [...] scheduled I have interviewed and examined Catherine Bowiemartin. I have confirmed and edited as necessary the chief complaint, history of present illness, past medical history, medications, family history, social history, review of systems, and exam findings as obtained by others. I agree with the assessment and plan as stated above. Mary Pacheco OD August 07, 2021 8:59 [facility]05-12-2022 History of Present illness Narrative* Mary Whitewin, OD - 08/07/2021 8:58 AM EDT Post-op [...] the assessment and plan as stated above. Marymarce Pacheco, OD August 07, 2021 8:59 AM documented in this encounterOhio[facility]05-04-2022 NoteHNO ID: [id number] Author: PARK Cedeño Service: ? Author Type: Aircraft Engine Mechanic Type: Progress Notes Filed: 07/30/2021 10:04 AM Note Text: CONFIRM AIM PLANO BOTH EYES. IQ IOL PATIENT AWARE THAT HE WILL NEED GLASSES FOR ALL DISTANCES. [facility] History of Present illness Narrative* PARK Cedeño - 07/30/2021 10:00 AM EDT CONFIRM AIM PLANO BOTH EYES. IQ IOL PATIENT AWARE THAT HE WILL NEED GLASSES FOR ALL DISTANCES. PARK Cedeño documented in this encounterOhiohealth Van [facility]05-04-2022 Instructions* Patient Instructions* Shikha Kate APRN.JIN - 07/30/2021 9:23 AM EDT PATIENT PREOPERATIVE INSTRUCTIONS Jennifer Jones V, MD has scheduled you for your procedure at this surgery center: [facility]: [phone] --[address] [place] [address]. Please read below carefully for your personalized [...] Advance Directive, please fax a copy to [phone] or email to for it to be [...] scanned into your chart that day. Shikha Kate APRN.CNP documented in this encounterOhiohealth [facility]05-04-2022 History and physical note * Shikha Kate APRN.REAL ESTATE LOAN OFFICER - 07/30/2021 8:51 AM EDT HISTORY AND [...] with implants PAST SURGICAL HISTORY OF SCS ([employer]) TOTAL KNEE REPLACEMENT Left FAMILY HISTORY [...] fevers. 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 No neurological symptoms or problems. Respiratory: No history of current cough or dyspnea, or pneumonia in the past 6 weeks. No history of respiratory/pulmonary symptoms or problems. Cardiovascular: No history of HTN requiring medication, no history of angina, CHF, CA, cardiac surgery or stents. Denies rest pain, gangrene or revascularization/amputation for PVD. No history of cardiovascular symptoms or problems. +HLD GI: No history of GI symptoms or problems. No history of esophageal varices, recent ascites, or ETOH greater than 2 drinks per day. : No history of dysuria, frequency or incontinence,, stones or chronic kidney disease +urgency BUSINESS PROCESS CONSULTANT: Negative for abnormal vaginal bleeding, abnormal vaginal [...] 2021 TIME: 8:51 AM documented in this encounterOhiohealth [facility]04-15-2022 Evaluation note* Encounter Date Diagnosis Assessment Notes [...] patient could proceed with surgery safely. The manager intensive care was vital for surgery timing and scheduling [...] plans. Prolonged services time spent: 32 minutes [employer] Other 04-14-2022 Evaluation note* Encounter Date Diagnosis Assessment Notes Treatment Notes Treatment Clinical Notes Jun, Age-related osteoporosis without current pathological fracture (ICD-10 - M81.0) [employer] Other 04-08-2022 Evaluation note* Encounter Date Diagnosis [...] pain control. Joints Meeting Checklist - Pharmacy: [facility] to bed - Approach/Technique: ALICIA - [...] elected to proceed with the above surgery. [employer] Other 03-02-2022 Evaluation note* Encounter Date Diagnosis [...] pathological fracture (ICD-10 - M81.0) May, On long term care phlebotomist drug therapy (ICD-10 - Z79.899) May, Preop [...] or absent clearances could delay their surgery. [employer] Other 03-01-2022 NoteHNO ID: [id number] Author: Jennifer Jones V, MD Service: ? Author Type: Physician Type: Progress Notes Filed: 05/27/2021 1:01 PM Note Text: The documentation for this note was completed by PARK De La Vega acting as a scribe for Jennifer JONES MD. 05/27/2021 12:53 PM. ASSESSMENT / PLAN: 1. Combined cataract, both eyes - Offered cataract extraction by phacoemulsification and intraocular lens implant with Dr. Jones, both eyes, left eye first - Aim: [place] Both eyes [monocular precautions following Cataract extraction] [...] and surgery - Comanage with Dr Dang; [facility] POD #1 Cataract Presurgical Documentation Cataract: Both [...] with lens implantation were discussed with Catherine Hillary Ayers in detail. she appeared to understand and asked that I proceed with plans for surgery. Patient acknowledges possible need for glasses after procedure. Informed consent form signed by physician and patient. Literature regarding cataract and cataract extraction by phacoemulsification offered. Return for preadmission testing, biometry AND intraocular lens calculations prior to surgery. The patient was offered a [facility]. The surgeon/proceduralist and patient have discussed [...] Jennifer JONES MD May 27, 2021 12:53 [facility]03-01-2022 NoteHNO ID: [id number] Author: Scout Gayle, PAGE Service: ? Author Type: ANIMAL HUSBANDMAN Type: Progress Notes Filed: 05/27/2021 1:02 PM [...] Scout Gayle, PAGE May 27, 2021 12:15 [facility]11-10-2021 NotePROCEDURE: XR KNEE LT 3V HISTORY: [...] Electronically authenticated by: CIARRA [place] Date: 2021-02-05 16:48[facility] note* Diagnosis Combined forms of age-related cataract of both eyes Other and combined forms of senile cataract Combined forms of age-related cataract of both eyes Other and combined forms of senile cataract Combined forms of age-related cataract of both eyes Other and combined forms of senile cataract documented in this encounter [facility] note* Diagnosis Pre-op evaluation- Primary Preoperative examination, unspecified Cataract of both eyes, unspecified cataract type Other hyperlipidemia Complex regional pain syndrome type 1, affecting unspecified site Combined forms of age-related cataract of both eyes Other and combined forms of senile cataract Combined forms of age-related cataract of both eyes Other and combined forms of senile cataract documented in this encounter [facility] note* Diagnosis S/P cataract extraction and insertion of intraocular lens, left- Primary 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 Other and combined forms of senile cataract documented in this encounter [facility] note* Diagnosis S/P cataract extraction and insertion of intraocular lens, left- Primary 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 documented in this encounter [facility] noteNo [facility] Other Evaluation noteNo assessment information available [facility] Work Phone: Evaluation note* Diagnosis Onset Date Resolution Status Acute kidney injury acute Acute metabolic encephalopathy acute Chronic disease anemia acute Multifocal pneumonia acute Sepsis acute [facility] Work Phone: History general Narrative - Reported* Type Description Date Medical History hypertension Medical History hypercholesterolemia Medical History neuropathy Medical History macular degeneration Surgical History C section 1966 Surgical History bilateral mastectomy 1999 [facility] [employer] Other History general Narrative - Reported* Type Description Date Medical History hypertension Medical History hypercholesterolemia Medical History neuropathy Medical History macular degeneration Surgical History C section 1966 Surgical History bilateral mastectomy 1999 Surgical History [facility]KA [employer] Other History general Narrative - Reported* Type Description Date Medical History hypertension Medical History hypercholesterolemia Medical History neuropathy Medical History macular degeneration Surgical History C section 1966 Surgical History bilateral mastectomy 1999 Surgical History [facility] Hospitalization History see surgical history [employer] Other Advance Directives Documents on File Type Date Recorded Patient Phlebotomy Services Representative Expl anation Advance Directive(s) 07/08/2021 9:01 AM Advance Directive(s) 07/08/2021 10:19 AM Documents on File Type Date Recorded Patient Phlebotomy Services Representative Expl anation Advance Directive(s) 08/06/2021 9:07 AM Advance Directive(s) 08/06/2021 9:08 AM Advance Directive(s) 07/08/2021 9:01 AM Advance Directive(s) 07/08/2021 10:19 AM Documents on File Type Date Recorded Patient Phlebotomy Services Representative Expl anation Advance Directive(s) 08/20/2021 9:02 AM [...] Referral Reason * 03/16 Dr Reed in [place] Diagnosis 1 Moderate COPD (chron ic obstructive pulmonary disease) (J44.9) Referral Organization [facility] Cardiology Referring Provider First Name Referring Provider Last Name Myra Referring Provider Specialty Cardiovascu lar Disease Referred Organization Unknown Facility Referred Provider Larry Reed Referred Provider Specialty Pulmonary Di seases Referral Priority Routine General Notes Macy Mccarthy 05:34:06 PM >received today, attachments made, referral faxed Reason *FU 09/22 [place] office - word finding issues. MRI pending. 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) Referral Organization [facility] Referring Provider First Name Oumar Referring Provider Last Name Shasha Referring Provider Specialty [facility] cine Referred Organization [facility] Referred Provider Tessa Espinal Referred Address [address] [place] [address],[place], [place],[address] Referred Provider Specialty Neurology Referral Priority Routine [...] or prosecute any alcohol or drug abuse patient.[facility] HospitalIn the event this information is protected by the Federal Confidentiality of Alcohol and Drug Abuse Patient Records regulations: The Federal rules restrict any use of the information to criminally investigate or prosecute any alcohol or drug abuse patient.[facility] HospitalIn the event this information is protected by the Federal Confidentiality of Alcohol and Drug Abuse Patient Records regulations: The Federal rules restrict any use of the information to criminally investigate or prosecute any alcohol or drug abuse patient.[facility] HospitalIn the event this information is protected by the Federal Confidentiality of Alcohol and Drug Abuse Patient Records regulations: The Federal rules restrict any use of the information to criminally investigate or prosecute any alcohol or drug abuse patient.[facility] Reason for Visit (unrecogniz ed section and content) Reason Comments Pre-Op Exam Reason Comments Anesthesia Consult Reason Comments Post-op (Ophthalmology) Left Eye One day s/p cataract surgery with IOL Reason Comments Post-op (Ophthalmology) Left Eye s/p Pha co + PC IOL OS 08-06-21 Specialty Diagnoses / Procedures Referred By Frank t Referred To Contact [facility] Diagnoses Combined forms of age-related cataract of both eyes Procedures XCAPSL CTRC RMVL INSJ IO LENS PROSTH W/O ECP OPH BMTRY PRTL COHER INTRFRMTRY IO LENS PWR LEO PHACOEMULSIFICATION CATARACT IMPLANT INTRAOCULAR LENS W/O ENDOSCOPIC CYCLOPHOTOCOAGULATION OPHTHALMIC BIOMETRY BY PARTIAL COHERENCE INTERFEROMETRY W/INTRAOCULAR LENS POWER CALCULATION [facility] [address] [place] [address] Referral ID Status Reason Start Date Expiration Date Visits Re quested Visits Authorized [id number] 1 1 Care Teams (unrecognized sec tion [...] Miguel Schultz II, MD Attending Provider Active Ranch Supervisor Relationship Specialty Start Date End Date Oumar Gunter MD [address] [place] [place] [id number] PCP - General Family Practice 12/25/10 Ranch Supervisor Relationship Specialty Start Date End Date Oumar Gunter MD [address] [place] [address] PCP - General Family Practice 12/25/10 Ranch Supervisor Relationship Specialty Start Date End Date Oumar Gunter MD [address] [place] [place] [place] [address] PCP - General Family Practice 12/25/10 Ranch Supervisor Relationship Specialty Start Date End Date Oumar Gunter MD [address] [place] [place] [address] PCP - General Family Practice 12/25/10 [...] Provider Active Start: May 31, 2023 Merline AndinoALFIE santiago Active Start: May 31, 2023 Team Status: [...] section and content) DATE CREATED AUTHOR 08/21/2021 [facility] DATE CREATED AUTHOR AUTHOR'S ORGANIZ ATION 02/03/2022 [facility] DATE CREATED AUTHOR AUTHOR'S ORGANIZ ATION 06/17/2023 [facility] Goals (unrecognized section and content) Goals [...] BE BASED ON THE PRIMARY CLINICAL RECORDS. [employer] provides no warranty or guarantee of the accuracy or completeness of information in this document.
[2024-03-01 11:06] LABS: Basophils Absolute Auto 0.1 10^3/uL (0.0-0.1); Basophils Percent Auto 0.7 % (0.2-2.0); Eosinophils Absolute Auto 0.3 10^3/uL (0.0-0.7); Hematocrit 35.5 % (36.0-48.0); Hemoglobin 11.5 g/dL (12.0-16.0); Immature Granulocytes Abs Auto 0.02 10^3/uL (0.00-0.03); Immature Granulocytes Pct Auto 0.3 % (0.0-0.5); Lymphocytes Absolute Auto 2.3 10^3/uL (1.2-3.8); Lymphocytes Percent Auto 33.1 % (20.5-60.0); Mean Corpuscular HGB Conc 32.4 g/dL (29.9-35.2); Mean Corpuscular Hemoglobin 30.8 pg (26.7-34.0); Mean Corpuscular Volume 95.2 fL (81.0-99.0); Mean Platelet Volume 10.2 fL (9.5-13.5); Monocytes Absolute Auto 0.5 10^3/uL (0.3-0.8); Monocytes Percent Auto 6.5 % (1.7-12.0); Neutrophils Absolute Auto 3.9 10^3/uL (1.4-6.5); Neutrophils Percent Auto 55.4 % (43.0-75.0); Platelet Count 198 10^3/uL (150-450); Red Blood Count 3.73 10^6/uL (4.20-5.40); Red Cell Distribution Width 12.3 % (11.0-15.0)
[2024-03-01 11:23] LABS: Percent Iron Saturation 28.3 %
[2024-03-01 11:33] LABS: Alanine Aminotransferase 28 U/L (14-59); Albumin Globulin Ratio 1.1; Albumin Level 3.4 g/dL (3.4-5.0); Alkaline Phosphatase 72 U/L (46-116); Anion Gap 11.8; Aspartate Amino Transferase 24 U/L (15-37); BUN Creatinine Ratio 15.6; Bilirubin Total 0.4 mg/dL (0.2-1.0); Calcium 8.8 mg/dL (8.5-10.1); Carbon Dioxide 30.8 mmol/L (21.0-32.0); Chloride 107 mmol/L (98-107); Estimated GFR (African America 46 (>=60 mL/min/1.73m^2); Estimated GFR (Non-African Ame 38 (>=60 mL/min/1.73m^2); Globulin 3.2 g/dL; Glucose 109 mg/dL (74-106); Potassium 4.6 mmol/L (3.5-5.1); Sodium 145 mmol/L (136-145); Thyroid Stimulating Hormone 1.743 uIU/mL (0.358-3.740); Total Protein 6.6 g/dL (6.4-8.2)
[2024-03-02 04:07] LABS: Vitamin B12 1568 pg/mL (232-1245)
== END 2024-03-01 10:32 | disposition home or self-care (01) ==
LOC: LAB 10:33
PROVIDERS: PCP Family Medicine; Visit Provider Internal Medicine Hematology & Oncology
DX: D64.9 Anemia, unspecified (principal); C50.912 Malignant neoplasm of unspecified site of left female breast; D72.829 Elevated white blood cell count, unspecified
CPT/HCPCS: 36415; 80053; 82306; 82607; 82728; 83540; 83550; 84443; 85025

== ENCOUNTER 2024-03-07 07:37 | Outpatient (RCR) | payer MEDICARE, SELFPAY | END 2024-03-07 14:08 | disposition home or self-care (01) | LOC: HEMC 07:37 | PROVIDERS: PCP Family Medicine; Visit Provider Internal Medicine Hematology & Oncology | DX: D72.829 Elevated white blood cell count, unspecified (principal); D64.9 Anemia, unspecified; Z90.13 Acquired absence of bilateral breasts and nipples; Z85.3 Personal history of malignant neoplasm of breast; Z87.01 Personal history of pneumonia (recurrent); N28.9 Disorder of kidney and ureter, unspecified; G62.9 Polyneuropathy, unspecified | CPT/HCPCS: G0463 ==

== ENCOUNTER 2024-07-17 10:10 | Emergency (ER) | payer MEDICARE, SELFPAY ==
[2024-07-17 10:13] VITALS: BP 181/100; PULSE 88; TEMP 36.7; O2SAT 95; BMI 34.5
--- NOTE | 2024-07-17 10:23 | ED_ITS ---
HPI HPI - General Adult General Chief complaint: Fall Stated complaint: FALL BACK PAIN Time Seen by Provider: 07/17/24 10:17 Source: patient Mode of arrival: Wheelchair History of Present Illness HPI narrative: 79-year-old female presents for right posterior lateral rib pain. 3 days ago she fell when she hit this area on her dresser. She did not hit her head. It has been hurting since then. She has no history of rib fractures and has no abdominal pain. No other injury was sustained. The pain is sharp and moderate to severe. Related Data Home Medications ?Medication ?Instructions ?Recorded ?Confirmed duloxetine 30 mg capsule,delayed 30 mg PO QDAY 05/25/23 07/17/24 release lisinopril 5 mg tablet 5 mg PO DAILY 05/25/23 07/17/24 naproxen 500 mg tablet 500 mg PO DAILY 05/25/23 07/17/24 tiotropium 2.5 mcg-olodaterol 2.5 2 puff inhalation Q24H PRN 05/25/23 07/17/24 mcg/actuation mist for inhalation shortness of breath or wheezing (Stiolto Respimat) duloxetine 60 mg capsule,delayed 60 mg PO DAILY 05/26/23 07/17/24 release albuterol sulfate 90 mcg/actuation 2 puff inhalation Q4H PRN 07/17/24 07/17/24 aerosol inhaler shortness of breath or wheezing gabapentin 300 mg capsule 300 mg PO DAILY 07/17/24 07/17/24 morphine 15 mg tablet,extended 15 mg PO BID 07/17/24 07/17/24 release pravastatin 10 mg tablet 10 mg PO DAILY 07/17/24 07/17/24 Previous Rx's ?Medication ?Instructions ?Recorded ibuprofen 800 mg tablet 800 mg PO Q8H PRN pain #20 tabs 07/17/24 Allergies Allergy/AdvReac Type Severity Reaction Status Date / Time No Known Drug Allergies Allergy Verified 05/25/23 22:41 Opioid HPI Opioid Management Most Recent Opioid Data: Last Pain Scale 0 05/29/23 10:55 05/29/23 Last Pain Intensity 0 05/29/23 10:55 05/29/23 Review of Systems ROS Narrative A ten point review of systems is negative except as noted above. PFSH PFSH Medical History (Updated 07/17/24 @ 11:40 by Antwan Fernandez MD) Acute respiratory failure with hypoxia ?J96.01 - Acute respiratory failure with hypoxia (ICD-10) Acute metabolic encephalopathy ?G93.41 - Metabolic encephalopathy (ICD-10) Multifocal pneumonia ?J18.9 - Pneumonia, unspecified organism (ICD-10) Sepsis ?A41.9 - Sepsis, unspecified organism (ICD-10) Acute kidney injury ?N17.9 - Acute kidney failure, unspecified (ICD-10) COPD (chronic obstructive pulmonary disease) ?J44.9 - Chronic obstructive pulmonary disease, unspecified (ICD-10) Depression ?F32.A - Depression, unspecified (ICD-10) OAB (overactive bladder) ?N32.81 - Overactive bladder (ICD-10) HTN (hypertension) ?I10 - Essential (primary) hypertension (ICD-10) Chronic pain ?G89.29 - Other chronic pain (ICD-10) Congestive heart failure ?I50.9 - Heart failure, unspecified (ICD-10) Breast cancer ?C50.919 - Malignant neoplasm of unspecified site of unspecified female breast (ICD-10) Surgical History (Updated 05/26/23 @ 04:08 by Loraine Cade, MELISSA) H/O section ?Z98.891 - History of uterine scar from previous surgery (ICD-10) S/P mastectomy, bilateral ?Z90.13 - Acquired absence of bilateral breasts and nipples (ICD-10) Family History (Updated 05/26/23 @ 03:16 by Loraine Cade, MELISSA) Father Family history of CHF (congestive heart failure) Sister Family history of COPD (chronic obstructive pulmonary disease) Family history of cancer Brother Family history of stroke Social History (Updated 05/26/23 @ 03:17 by Loraine Cade, MELISSA) Within the past year, how often did you have a drink containing alcohol: never Score interpretation: A score less than 3 is consistent with normal alcohol consumption. Smoking status: Never smoker Non-prescribed substance use: denies use Little interest or pleasure in doing things: not at all Feeling down, depressed, or hopeless: not at all Exam Narrative Exam Narrative: Nurses note and vital signs reviewed and patient is not hypoxic. General: The patient appears in no apparent respiratory distress. Skin: Warm, dry, no pallor noted. There is no rash noted. Head: Normocephalic, atraumatic Eye: Normal conjunctiva, no drainage Ears, Nose, Mouth, and Throat: oral mucosa is moist. Nares patent. Cardiovascular: Regular Rate and Rhythm Respiratory: Breath sounds are equal. She has tenderness to palpation of the right posterior lateral rib region. No crepitus bruise rash or abrasion noted. Back: Thoracic and lumbar spines nontender GI: Soft and nontender Musculoskeletal: All joints have good range of motion Neurological: A&O, normal speech Psychiatric: Cooperative Constitutional Vital Signs, click to edit/add: Last Vital Signs Temp 98.1 F 07/17/24 10:13 Pulse 88 07/17/24 10:13 Resp 20 07/17/24 10:13 BP 181/100 H 07/17/24 10:13 Pulse Ox 95 07/17/24 10:13 O2 Del Method Room Air 07/17/24 10:13 Course Vital Signs Vital signs: Vital Signs Temperature 98.1 F 07/17/24 10:13 Pulse Rate 88 07/17/24 10:13 Respiratory Rate 07/17/24 10:13 Blood Pressure 181/100 H 07/17/24 10:13 Pulse Oximetry 95 07/17/24 10:13 Oxygen Delivery Method Room Air 07/17/24 10:13 Temperature 98.1 F 07/17/24 10:13 Pulse Rate 88 07/17/24 10:13 Respiratory Rate 07/17/24 10:13 Blood Pressure 181/100 H 07/17/24 10:13 Pulse Oximetry 95 07/17/24 10:13 Oxygen Delivery Method Room Air 07/17/24 10:13 Medical Decision Making [facility] Narrative Medical decision making narrative: Rib x-rays show ninth rib fracture, no pneumothorax. She was given OPEP device as well as a prescription for ibuprofen, she is already on morphine. Treatment diagnosis and follow-up were discussed with the patient. Differential Diagnosis Differential Diagnosis: Rib fracture, contusion, pneumothorax Imaging Data Right rib x-rays: My impression: Ninth rib fracture, no pneumothorax Discharge Plan Discharge Chief Complaint: Fall Clinical Impression: Fracture, rib Patient Disposition: Home, Self-Care Time of Disposition Decision: 11:39 Condition: Good Mode of Transportation: Private Vehicle Prescriptions / Home Meds: New ibuprofen 800 mg tablet 800 mg PO Q8H PRN (Reason: pain) Qty: 20 0RF No Action lisinopril 5 mg tablet 5 mg PO DAILY naproxen 500 mg tablet 500 mg PO DAILY Patient Comments: takes at noon duloxetine 30 mg capsule,delayed release(DR/EC) 30 mg PO QDAY Patient Comments: takes at 4pm Stiolto Respimat 2.5-2.5 mcg/actuation mist 2 puff INHALATION Q24H PRN (Reason: shortness of breath or wheezing) duloxetine 60 mg capsule,delayed release(DR/EC) 60 mg PO DAILY Patient Comments: takes with breakfast gabapentin 300 mg capsule 300 mg PO DAILY morphine 15 mg tablet extended release 15 mg PO BID pravastatin 10 mg tablet 10 mg PO DAILY albuterol sulfate 90 mcg/actuation HFA aerosol inhaler 2 puff INHALATION Q4H PRN (Reason: shortness of breath or wheezing) Print Language: Macedonian Instructions: Rib Fracture (ED) Referrals: Sonia Pulliam MD [Primary Care Provider] - 1 week Discharge Date/Time: 07/17/24 12:00
[2024-07-17] MEDS: KETOROLAC TROMETHAMINE 60 MG/2 ML VIAL IM (11:57)
--- NOTE | 2024-07-17 12:50 | RESP.RT ---
done by nursing
== END 2024-07-17 12:00 | disposition home or self-care (01) ==
PROVIDERS: Emergency Provider Emergency Medicine; PCP Family Medicine
DX: S22.31XA Fracture of one rib, right side, initial encounter for closed fracture (principal); W19.XXXA Unspecified fall, initial encounter; W22.03XA Walked into furniture, initial encounter; Z90.13 Acquired absence of bilateral breasts and nipples
CPT/HCPCS: 71046; 71101; 94667; 96372; 99284; J1885

== ENCOUNTER 2024-07-25 11:47 | Outpatient (OUT) | payer MEDICARE, SELFPAY ==
[2024-07-25 12:26] LABS: Basophils Absolute Auto 0.1 10^3/uL (0.0-0.1); Basophils Percent Auto 0.5 % (0.2-2.0); Eosinophils Absolute Auto 0.4 10^3/uL (0.0-0.7); Eosinophils Percent Auto 3.1 % (0.9-7.0); Hematocrit 34.4 % (36.0-48.0); Hemoglobin 10.6 g/dL (12.0-16.0); Immature Granulocytes Abs Auto 0.02 10^3/uL (0.00-0.03); Immature Granulocytes Pct Auto 0.2 % (0.0-0.5); Lymphocytes Absolute Auto 2.7 10^3/uL (1.2-3.8); Lymphocytes Percent Auto 23.2 % (20.5-60.0); Mean Corpuscular HGB Conc 30.8 g/dL (29.9-35.2); Mean Corpuscular Hemoglobin 30.3 pg (26.7-34.0); Mean Corpuscular Volume 98.3 fL (81.0-99.0); Monocytes Absolute Auto 0.7 10^3/uL (0.3-0.8); Monocytes Percent Auto 6.3 % (1.7-12.0); Neutrophils Absolute Auto 7.9 10^3/uL (1.4-6.5); Neutrophils Percent Auto 66.7 % (43.0-75.0); Platelet Count 246 10^3/uL (150-450); Red Cell Distribution Width 12.9 % (11.0-15.0); White Blood Count 11.8 10^3/uL (4.0-11.0)
--- NOTE | 2024-07-25 12:35 | XR_ITS ---
The [address] [address] Patient Name: DARLENE TANG MRN: [id number] date: 1945 Sex: F Assigned Patient Location: LAB Current Patient Location: LAB Accession/Order Number: [id number] Exam Date: 07/25/2024 13:15 Report Date: 07/25/2024 13:17 At the request of: OUMAR GUNTER MD Procedure: XR chest 2V Chest 2 views CLINICAL HISTORY: cough COMPARISON: CT chest 08/26/2023 FINDINGS: Neurostimulator device in place. Heart is normal in size. Lungs are clear. No free air. XR/XR chest 2V IMPRESSION: NO ACUTE CARDIOPULMONARY ABNORMALITY. Impression dictated by: Da Garcia Jr., D.O. 07/25/2024 1:17 PM Dictation Location: [place] [address] Electronically authenticated by: [id number] Y Date: 07/25/2024 13:17
[2024-07-25 13:25] LABS: Alanine Aminotransferase 16 U/L (14-59); Albumin Globulin Ratio 1.1; Albumin Level 3.6 g/dL (3.4-5.0); Alkaline Phosphatase 84 U/L (46-116); Anion Gap 12.9; Aspartate Amino Transferase 15 U/L (15-37); BUN Creatinine Ratio 21.3; Bilirubin Total 0.4 mg/dL (0.2-1.0); Calcium 9.2 mg/dL (8.5-10.1); Carbon Dioxide 29.2 mmol/L (21.0-32.0); Chloride 100 mmol/L (98-107); Estimated GFR (African America 14 (>=60 mL/min/1.73m^2); Estimated GFR (Non-African Ame 11 (>=60 mL/min/1.73m^2); Globulin 3.4 g/dL; Glucose 115 mg/dL (74-106); Sodium 136 mmol/L (136-145); TSH W/ REFLEX FT4 1.217 uIU/mL (0.358-3.740)
[2024-07-25 14:55] LABS: Potassium 6.1 mmol/L (3.5-5.1)
== END 2024-07-25 11:48 | disposition home or self-care (01) ==
LOC: LAB 11:50
PROVIDERS: PCP Family Medicine; Visit Provider Family Medicine
DX: R41.0 Disorientation, unspecified (principal); S22.39XA Fracture of one rib, unspecified side, initial encounter for closed fracture; W19.XXXA Unspecified fall, initial encounter; R05.9 Cough, unspecified
CPT/HCPCS: 36415; 71046; 80053; 81003; 84443; 85025; 87086

== ENCOUNTER 2024-07-25 15:28 | Inpatient (IN) | payer MEDICARE, SELFPAY ==
[2024-07-25 15:33] VITALS: BP 117/55; PULSE 91; TEMP 37.1; O2SAT 90; BMI 34.5
--- NOTE | 2024-07-25 15:42 | ECG_ITS ---
The [facility] Test Date: 2024-07-25 Pat Name: DARLENE TANG Department: Room: - Gender: Female Medication Specialist: : 1945 Requested By: [id number] Order Number: [id number] Reading MD: BESS ORTIZ M.D. Measurements Intervals [place] Rate: 88 P: 64 CT: 182 QRS: -58 QRSD: 96 T: 78 QT: 348 QTc: 393 Interpretive Statements 1100 Sinus rhythm 2630 Left anterior fascicular block 8003 Consistent with pulmonary disease 9150 abnormal ECG Compared to ECG 05/25/2023 21:27:54 Sinus tachycardia no longer present Electronically Signed On 07-25-2024 18:45:33 EDT by BESS ORTIZ M.D.
[2024-07-25 16:11] LABS: Basophils Percent Auto 0.4 % (0.2-2.0); Eosinophils Absolute Auto 0.4 10^3/uL (0.0-0.7); Eosinophils Percent Auto 3.4 % (0.9-7.0); Hemoglobin 10.3 g/dL (12.0-16.0); Immature Granulocytes Abs Auto 0.04 10^3/uL (0.00-0.03); Immature Granulocytes Pct Auto 0.4 % (0.0-0.5); Lymphocytes Absolute Auto 2.5 10^3/uL (1.2-3.8); Lymphocytes Percent Auto 22.4 % (20.5-60.0); Mean Corpuscular HGB Conc 32.2 g/dL (29.9-35.2); Mean Corpuscular Hemoglobin 31.2 pg (26.7-34.0); Mean Platelet Volume 10.5 fL (9.5-13.5); Monocytes Absolute Auto 0.7 10^3/uL (0.3-0.8); Monocytes Percent Auto 6.3 % (1.7-12.0); Neutrophils Absolute Auto 7.3 10^3/uL (1.4-6.5); Neutrophils Percent Auto 67.1 % (43.0-75.0); Platelet Count 233 10^3/uL (150-450); Red Cell Distribution Width 12.9 % (11.0-15.0); White Blood Count 10.9 10^3/uL (4.0-11.0)
[2024-07-25 16:36] LABS: Alanine Aminotransferase 15 U/L (14-59); Albumin Globulin Ratio 1.1; Albumin Level 3.5 g/dL (3.4-5.0); Alkaline Phosphatase 81 U/L (46-116); Anion Gap 13.9; Aspartate Amino Transferase 18 U/L (15-37); BUN Creatinine Ratio 21.4; Bilirubin Total 0.3 mg/dL (0.2-1.0); Calcium 9.3 mg/dL (8.5-10.1); Carbon Dioxide 28.3 mmol/L (21.0-32.0); Chloride 100 mmol/L (98-107); Estimated GFR (African America 14 (>=60 mL/min/1.73m^2); Estimated GFR (Non-African Ame 11 (>=60 mL/min/1.73m^2); Globulin 3.3 g/dL; Glucose 112 mg/dL (74-106); Sodium 136 mmol/L (136-145); Total Protein 6.8 g/dL (6.4-8.2)
[2024-07-25 16:43] LABS: Potassium 6.2 mmol/L (3.5-5.1)
--- NOTE | 2024-07-25 18:53 | ED.GENADUL1 ---
HPI HPI - General Adult General Chief complaint: Recheck/Abnormal Lab/Rx Stated complaint: IRREGULAR LAB RESULTS/PULLIAM Time Seen by Provider: 07/25/24 15:42 Source: patient Mode of arrival: Wheelchair History of Present Illness HPI narrative: The patient is 79-year-old female who had a recent fall almost 8 days ago, at that time the patient had rib fracture and she has been using ibuprofen seen for pain, patient was evaluated today by her primary care doctor I did had some confusion and the blood workup showed some hypokalemia and that why she was sent over to be evaluated According to the at bedside she also has some decrease in p.o. intake No nausea no vomiting no other concerns Related Data Home Medications ?Medication ?Instructions ?Recorded ?Confirmed duloxetine 30 mg capsule,delayed 30 mg PO QDAY 05/25/23 07/25/24 release lisinopril 5 mg tablet 5 mg PO DAILY 05/25/23 07/25/24 naproxen 500 mg tablet 500 mg PO DAILY 05/25/23 07/25/24 duloxetine 60 mg capsule,delayed 60 mg PO DAILY 05/26/23 07/25/24 release albuterol sulfate 90 mcg/actuation 2 puff inhalation Q4H PRN 07/17/24 07/25/24 aerosol inhaler shortness of breath or wheezing gabapentin 300 mg capsule 300 mg PO DAILY 07/17/24 07/25/24 morphine 15 mg tablet,extended 15 mg PO BID 07/17/24 07/25/24 release pravastatin 10 mg tablet 10 mg PO DAILY 07/17/24 07/25/24 Previous Rx's ?Medication ?Instructions ?Recorded ibuprofen 800 mg tablet 800 mg PO Q8H PRN pain #20 tabs 07/17/24 Allergies Allergy/AdvReac Type Severity Reaction Status Date / Time No Known Drug Allergies Allergy Verified 07/25/24 15:32 Opioid HPI Opioid Management Most Recent Opioid Data: Last Pain Scale 0 05/29/23, 10:55 Last Pain Intensity 0 05/29/23, 10:55 Review of Systems ROS Status of ROS 10 or more systems reviewed and unremarkable except as noted in history and below [facility] Medical History (Updated 07/25/24 @ 18:53 by Yesika Hong MD) Acute respiratory failure with hypoxia ?J96.01 - Acute respiratory failure with hypoxia (ICD-10) Acute metabolic encephalopathy ?G93.41 - Metabolic encephalopathy (ICD-10) Multifocal pneumonia ?J18.9 - Pneumonia, unspecified organism (ICD-10) Sepsis ?A41.9 - Sepsis, unspecified organism (ICD-10) Acute kidney injury ?N17.9 - Acute kidney failure, unspecified (ICD-10) COPD (chronic obstructive pulmonary disease) ?J44.9 - Chronic obstructive pulmonary disease, unspecified (ICD-10) Depression ?F32.A - Depression, unspecified (ICD-10) OAB (overactive bladder) ?N32.81 - Overactive bladder (ICD-10) HTN (hypertension) ?I10 - Essential (primary) hypertension (ICD-10) Chronic pain ?G89.29 - Other chronic pain (ICD-10) Congestive heart failure ?I50.9 - Heart failure, unspecified (ICD-10) Breast cancer ?C50.919 - Malignant neoplasm of unspecified site of unspecified female breast (ICD-10) Surgical History (Updated 05/26/23 @ 04:08 by Loraine Cade RN) H/O section ?Z98.891 - History of uterine scar from previous surgery (ICD-10) S/P mastectomy, bilateral ?Z90.13 - Acquired absence of bilateral breasts and nipples (ICD-10) Family History (Updated 05/26/23 @ 03:16 by Loraine Cade RN) Father Family history of CHF (congestive heart failure) Sister Family history of COPD (chronic obstructive pulmonary disease) Family history of cancer Brother Family history of stroke Social History (Updated 05/26/23 @ 03:17 by Loraine Cade RN) Within the past year, how often did you have a drink containing alcohol: never Score interpretation: A score less than 3 is consistent with normal alcohol consumption. Smoking status: Never smoker Non-prescribed substance use: denies use Little interest or pleasure in doing things: not at all Feeling down, depressed, or hopeless: not at all Exam Narrative Exam Narrative: Nurses notes and vital signs reviewed and patient is not hypoxic. General: Well-appearing and in no apparent distress. Skin: Warm, dry, no pallor noted. No rash. Head: Normocephalic, atraumatic. Neck: Supple, non-tender. Eye: Pupils are equal, round and EOMI. No scleral icterus. Ears, Nose, Mouth, and Throat: TM are clear, no nasal mucosal hypertrophy. Oral mucosa is moist, no posterior oropharynx erythema, uvula is mid-line Cardiovascular: Regular Rate and Rhythm without murmur, gallop or rub. Respiratory: No accessory muscle use or respiratory distress. Lungs are clear to auscultation, no wheezing, rales or rhonchi Chest Wall: no tenderness Back: No midline thoracic or lumbar vertebral tenderness. No CVA tenderness Musculoskeletal: normal ROM, no calf or popliteal tenderness, no lower extremity edema/swelling GI: Abdomen is soft, non-distended. Normal bowel sounds. No masses appreciated. No tenderness to palpation. No rebound, guarding, or rigidity noted. Neurological: A&O x4. No cranial nerve dysfunction observed. No truncal ataxia. Moves all extremities. Sensation intact. Psychiatric: Cooperative and interactive. Normal mood and affect. Constitutional Vital Signs, click to edit/add: Last Vital Signs Temp 98.7 F 07/25/24 15:33 Pulse 91 H 07/25/24 15:33 Resp 20 07/25/24 15:33 BP 117/55 07/25/24 15:33 Pulse Ox 90 L 07/25/24 15:33 O2 Del Method Room Air 07/25/24 15:33 Course Course Hospital Course: The patient was provided with a breathing treatment just because of her history of hyperkalemia as it was confirmed to have a potassium above 6 The patient EKG in the ER showing sinus rhythm with no hyperkalemic changes no ST elevation or depression The patient chemistry showing acute kidney injury with a creatinine above 3 and her baseline usually around 1.3 Patient was started on IV fluid in addition to Lokelma 1 dose Her acute kidney injury could be secondary to NSAID Chest x-ray done as outpatient showed no congestion Patient will be admitted for further evaluation of her acute kidney injury patient case was discussed with Rosemary PINZON and the patient will be admitted under Dr. Buckner Vital Signs Vital signs: Vital Signs Temperature 98.7 F 07/25/24 15:33 Pulse Rate 91 H 07/25/24 15:33 Respiratory Rate 20 07/25/24 15:33 Blood Pressure 117/55 07/25/24 15:33 Pulse Oximetry 90 L 07/25/24 15:33 Oxygen Delivery Method Room Air 07/25/24 15:33 Temperature 98.7 F 07/25/24 15:33 Pulse Rate 91 H 07/25/24 15:33 Respiratory Rate 20 07/25/24 15:33 Blood Pressure 117/55 07/25/24 15:33 Pulse Oximetry 90 L 07/25/24 15:33 Oxygen Delivery Method Room Air 07/25/24 15:33 Medical Decision Making Lab Data Labs: Lab Results 07/25/24 Range/Units 15:50 WBC 10.9 (4.0-11.0) 10^3/uL RBC 3.30 L (4.20-5.40) 10^6/uL Hgb 10.3 L (12.0-16.0) g/dL Hct 32.0 L (36.0-48.0) % MCV 97.0 (81.0-99.0) fL MCH 31.2 (26.7-34.0) pg MCHC 32.2 (29.9-35.2) g/dL RDW 12.9 (11.0-15.0) % Plt Count 233 (150-450) 10^3/uL MPV 10.5 (9.5-13.5) fL Neut % (Auto) 67.1 (43.0-75.0) % Lymph % (Auto) 22.4 (20.5-60.0) % [place]eth % (Auto) 6.3 (1.7-12.0) % Eos % (Auto) 3.4 (0.9-7.0) % Baso % (Auto) 0.4 (0.2-2.0) % Neut # (Auto) 7.3 H (1.4-6.5) 10^3/uL Lymph # (Auto) 2.5 (1.2-3.8) 10^3/uL [place]eth # (Auto) 0.7 (0.3-0.8) 10^3/uL Eos # (Auto) 0.4 (0.0-0.7) 10^3/uL Baso # (Auto) 0.0 (0.0-0.1) 10^3/uL Abs Immat Gran (auto) 0.04 H (0.00-0.03) 10^3/uL Imm/Tot Granulo (auto) 0.4 (0.0-0.5) % Sodium 136 (136-145) mmol/L Potassium 6.2 H* (3.5-5.1) mmol/L Chloride 100 (98-107) mmol/L Carbon Dioxide 28.3 (21.0-32.0) mmol/L Anion Gap 13.9 BUN 83.0 H* (7.0-18.0) mg/dL Creatinine 3.88 H (0.55-1.02) mg/dL Est GFR ( Amer) 14 L (>=60 mL/min/1.73m^2) Est GFR (Non-Af Amer) 11 L (>=60 mL/min/1.73m^2) BUN/Creatinine Ratio 21.4 Glucose 112 H (74-106) mg/dL Calcium 9.3 (8.5-10.1) mg/dL Total Bilirubin 0.3 (0.2-1.0) mg/dL AST 18 (15-37) U/L ALT 15 (14-59) U/L Alkaline Phosphatase 81 (46-116) U/L Total Protein 6.8 (6.4-8.2) g/dL Albumin 3.5 (3.4-5.0) g/dL Globulin 3.3 g/dL Albumin/Globulin Ratio 1.1 Discharge Plan Discharge Chief Complaint: Recheck/Abnormal Lab/Rx Clinical Impression: DEVAN (acute kidney injury), Acute dehydration, Acute hyperkalemia Prescriptions / Home Meds: No Action lisinopril 5 mg tablet 5 mg PO DAILY naproxen 500 mg tablet 500 mg PO DAILY Patient Comments: takes at noon duloxetine 30 mg capsule,delayed release(DR/EC) 30 mg PO QDAY Patient Comments: takes at 4pm duloxetine 60 mg capsule,delayed release(DR/EC) 60 mg PO DAILY Patient Comments: takes with breakfast gabapentin 300 mg capsule 300 mg PO DAILY morphine 15 mg tablet extended release 15 mg PO BID pravastatin 10 mg tablet 10 mg PO DAILY albuterol sulfate 90 mcg/actuation HFA aerosol inhaler 2 puff INHALATION Q4H PRN (Reason: shortness of breath or wheezing) ibuprofen 800 mg tablet 800 mg PO Q8H PRN (Reason: pain) Qty: 20 0RF Print Language: Slovenian Referrals: Sonia Pulliam MD [Primary Care Provider, Family Practice] - 1 week
[2024-07-25] MEDS: 0.9 % SODIUM CHLORIDE 1,000 ML 1000 ML IV (18:57)
[2024-07-25] MEDS: SODIUM ZIRCONIUM CYCLOSILICATE 10 GM POWD.PACK PO (19:02)
[2024-07-25 19:09] VITALS: PULSE 87; O2SAT 91
[2024-07-25] MEDS: IPRATROPIUM/ALBUTEROL SULFATE 3 ML AMPUL.NEB IH (19:09)
[2024-07-25 19:32] VITALS: BP 120/65; PULSE 94; O2SAT 93
[2024-07-25] MEDS: LORAZEPAM 2 MG/ML VIAL 0.5 MG IV (21:03)
[2024-07-25 21:09] VITALS: BP 116/62; PULSE 93; O2SAT 95
[2024-07-25 21:41] VITALS: BP 108/64; PULSE 95; PULSE 96; TEMP 37.1; O2SAT 94; BMI 36.3
[2024-07-25 22:00] VITALS: PULSE 91
[2024-07-25] MEDS: 0.9 % SODIUM CHLORIDE 1,000 ML 100 ML IV (22:40)
[2024-07-25] MEDS: HEPARIN SODIUM (PORCINE) 5,000 UNIT/ML VIAL 5000 UNIT SUBQ (22:40)
[2024-07-25] MEDS: ATORVASTATIN CALCIUM 10 MG TABLET PO (22:40)
[2024-07-25] MEDS: MORPHINE SULFATE 15 MG TABLET.ER PO (22:44)
[2024-07-25 23:34] LABS: Potassium 5.8 mmol/L (3.5-5.1); Troponin I High Sensitivity 9.5 pg/mL (4.0-51.3)
[2024-07-26] VITALS (17 sets, daily range): BP systolic 125–179; BP diastolic 71–83; PULSE 74–97; TEMP 36.4–36.8; O2SAT 92–94
[2024-07-26 05:09] LABS: Hematocrit 29.7 % (36.0-48.0); Hemoglobin 9.4 g/dL (12.0-16.0); Mean Corpuscular HGB Conc 31.6 g/dL (29.9-35.2); Platelet Count 185 10^3/uL (150-450); Red Blood Count 3.03 10^6/uL (4.20-5.40); White Blood Count 7.2 10^3/uL (4.0-11.0)
[2024-07-26 05:21] LABS: Anion Gap 13.6; BUN Creatinine Ratio 25.4; Calcium 8.9 mg/dL (8.5-10.1); Carbon Dioxide 27.2 mmol/L (21.0-32.0); Chloride 106 mmol/L (98-107); Estimated GFR (African America 18 (>=60 mL/min/1.73m^2); Estimated GFR (Non-African Ame 15 (>=60 mL/min/1.73m^2); Glucose 113 mg/dL (74-106); Potassium 5.8 mmol/L (3.5-5.1); Sodium 141 mmol/L (136-145)
--- NOTE | 2024-07-26 06:00 | ECG_ITS ---
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 Measurements Intervals [place] Rate: 82 P: 55 OR: 194 QRS: -52 QRSD: 111 T: 56 QT: 352 QTc: 411 Interpretive Statements SINUS RHYTHM PATTERN CONSISTENT WITH PULMONARY DISEASE LEFT ANTERIOR FASCICULAR BLOCK [QRS AXIS <= -45, QR IN I, RS IN II] Abnormal ECG Compared to ECG 07/25/2024 15:44:11 No significant changes Electronically Signed On 07-26-2024 21:04:52 EDT by BESS ORTIZ M.D.
[2024-07-26] MEDS: 0.9 % SODIUM CHLORIDE 1,000 ML 100 ML IV ×2 (08:46→17:49)
[2024-07-26] MEDS: DULOXETINE HCL 60 MG CAPSULE.DR PO (10:36)
[2024-07-26] MEDS: SODIUM ZIRCONIUM CYCLOSILICATE 10 GM POWD.PACK PO (10:36)
[2024-07-26] MEDS: HEPARIN SODIUM (PORCINE) 5,000 UNIT/ML VIAL 5000 UNIT SUBQ ×2 (10:36→21:53)
[2024-07-26] MEDS: GABAPENTIN 300 MG CAPSULE PO (10:37)
--- NOTE | 2024-07-26 10:41 | CM.NOTE ---
Rounds made with Dr. Buckner, continue IV fluids. BUN and Creat remain elevated, continue to monitor labs ( potassium now 5.8). Pt will be put on telemetry for closer monitoring.
--- NOTE | 2024-07-26 11:18 | PM.HP ---
HPI H&P: HPI History of Present Illness Chief complaint: IRREGULAR LAB RESULTS/GUNTER/DEVAN/HYPERKALEMIA Narrative: 79 y/o female to ER with abnormal labs and altered mental status. Fell few days ago and 07/19 found 9th right rib fracture. Takes MS Skylar for chronic pain at home regularly. Taking additional ibuprofen due to pain. Seen by PCP and noted confusion. Outpatient labs showed DEVAN and hyperkalemia and admitted. Given Lokelma and started IV fluids. Continues to c/o pain this am. Opioid HPI Opioid Management Most Recent Pain and Opioid Data: Last Pain Scale 5 Today, 08:00 Last Pain Intensity 0 05/29/23, 10:55 Last Pain Assessment 07/25/24, 22:00 Last MAR Pain Assessment 07/25/24, 22:44 Last ORT Total Score 0 07/25/24, 21:41 Last ORT Risk Category Low Risk 07/25/24, 21:41 Review of Systems ROS Constitutional Denies: fever, chills or fatigue Cardiovascular Denies: chest pain, palpitations or edema Respiratory Denies: shortness of breath, cough or wheezing Gastrointestinal Denies: abdominal pain, nausea, vomiting or diarrhea Genitourinary Denies: painful urination PFSH PFS Medical History (Updated 07/26/24 @ 08:30 by Pancho Buckner MD) Acute respiratory failure with hypoxia ?J96.01 - Acute respiratory failure with hypoxia (ICD-10) Acute metabolic encephalopathy ?G93.41 - Metabolic encephalopathy (ICD-10) Multifocal pneumonia ?J18.9 - Pneumonia, unspecified organism (ICD-10) Sepsis ?A41.9 - Sepsis, unspecified organism (ICD-10) Acute kidney injury ?N17.9 - Acute kidney failure, unspecified (ICD-10) Depression ?F32.A - Depression, unspecified (ICD-10) OAB (overactive bladder) ?N32.81 - Overactive bladder (ICD-10) Chronic pain ?G89.29 - Other chronic pain (ICD-10) Congestive heart failure ?I50.9 - Heart failure, unspecified (ICD-10) Breast cancer ?C50.919 - Malignant neoplasm of unspecified site of unspecified female breast (ICD-10) Surgical History (Updated 05/26/23 @ 04:08 by Loraine Cade RN) H/O section ?Z98.891 - History of uterine scar from previous surgery (ICD-10) S/P mastectomy, bilateral ?Z90.13 - Acquired absence of bilateral breasts and nipples (ICD-10) Family History (Updated 05/26/23 @ 03:16 by Loraine Cade, MELISSA) Father Family history of CHF (congestive heart failure) Sister Family history of COPD (chronic obstructive pulmonary disease) Family history of cancer Brother Family history of stroke Social History (Updated 05/26/23 @ 03:17 by Loraine Cade, MELISSA) Within the past year, how often did you have a drink containing alcohol: never Score interpretation: A score less than 3 is consistent with normal alcohol consumption. Smoking status: Never smoker Non-prescribed substance use: denies use Highest level of school completed/degree received: high school graduate Little interest or pleasure in doing things: not at all Feeling down, depressed, or hopeless: not at all Meds Home Medications and Allergies Home Medications ?Medication ?Instructions ?Recorded ?Confirmed ?Type duloxetine 30 mg capsule,delayed 30 mg PO QDAY 05/25/23 07/25/24 History release lisinopril 5 mg tablet 5 mg PO DAILY 05/25/23 07/25/24 History naproxen 500 mg tablet 500 mg PO DAILY 05/25/23 07/25/24 History duloxetine 60 mg capsule,delayed 60 mg PO DAILY 05/26/23 07/25/24 History release albuterol sulfate 90 mcg/actuation 2 puff inhalation Q4H PRN 07/17/24 07/25/24 History aerosol inhaler shortness of breath or wheezing gabapentin 300 mg capsule 300 mg PO DAILY 07/17/24 07/25/24 History ibuprofen 800 mg tablet 800 mg PO Q8H PRN pain #20 tabs 07/17/24 07/25/24 Rx morphine 15 mg tablet,extended 15 mg PO BID 07/17/24 07/25/24 History release pravastatin 10 mg tablet 10 mg PO DAILY 07/17/24 07/25/24 History Allergies Allergy/AdvReac Type Severity Reaction Status Date / Time No Known Drug Allergies Allergy Verified 07/25/24 15:32 Exam Constitutional Vital Signs, click to edit/add: Last Vital Signs Temp 98.2 F 07/26/24 11:00 Pulse 74 07/26/24 11:00 Resp 16 07/26/24 11:00 BP 137/83 07/26/24 11:00 Pulse Ox 94 L 07/26/24 11:00 O2 Del Method Room Air 07/26/24 11:00 Documenting provider has reviewed patient's vital signs: yes Common normals: no apparent distress, oriented x3 and alert HENMT Common normals: normocephalic Eye Common normals: PERRL and EOMs intact bilaterally Respiratory Common normals: normal respiratory effort and clear to auscultation bilaterally Cardio Common normals: regular rate, regular rhythm, no gallops, no murmurs and no rub GI Common normals: Normal to inspection, nondistended, normoactive bowel sounds present and non-tender Extremity Common normals: no pedal edema Results Labs Labs: Short CBC 07/25/24 07/26/24 Range/Units 15:50 05:02 WBC 10.9 7.2 (4.0-11.0) 10^3/uL Hgb 10.3 L 9.4 L (12.0-16.0) g/dL Hct 32.0 L 29.7 L (36.0-48.0) % Plt Count 233 185 (150-450) 10^3/uL BMP 07/25/24 07/25/24 07/26/24 15:50 23:05 05:02 Sodium 136 141 Potassium 6.2 H* 5.8 H 5.8 H Chloride 100 106 Carbon Dioxide 28.3 27.2 BUN 83.0 H* 78.0 H* Creatinine 3.88 H 3.07 H Glucose 112 H 113 H Calcium 9.3 8.9 Liver Function 07/25/24 Range/Units 15:50 Total Bilirubin 0.3 (0.2-1.0) mg/dL AST 18 (15-37) U/L ALT 15 (14-59) U/L Alkaline Phosphatase 81 (46-116) U/L Albumin 3.5 (3.4-5.0) g/dL Assessment and Plan Assessment and Plan (1) DEVAN (acute kidney injury): (2) Acute hyperkalemia: (3) Acute dehydration: (4) Fracture, rib: (5) HTN (hypertension): (6) COPD (chronic obstructive pulmonary disease): Plan Presented with hyperkalemia and given Lokelma. Potassium improved but remains elevated at 5.8. Repeat lokelny. Monitor for EKG changes with telemetry. Renal function slightly improved with IV fluids but still elevated compared to baseline and continue IV fluids. Start norco for pain. Resume home medication. Start PT/OT. Plan on at least a 2 midnight stay for inpatient medically necessary services.
--- NOTE | 2024-07-26 11:53 | CM.NOTE ---
Important Message From Medicare discussed with pt, pt verbalizes understanding and signs paper. Original given to pt and copy placed on pt's chart.
--- NOTE | 2024-07-26 15:08 | CM.NOTE ---
Addendum entered by Tessa Fuentes 07/26/24 15:11: Pt does voice continued concern regarding patients confusion and twitching, tiger txt sent to Dr. Buckner. Original Note: Discussed with pt and regarding PT and OT recommendations for skilled therapy at discharge. Pt is open to going skilled at discharge, pt and in agreement to go to [facility].
--- NOTE | 2024-07-26 15:19 | CM.NOTE ---
Case Management referral, Physician notes and face sheet faxed to [facility] for new referral. VANNESA sent e-mail to Lazaro at [facility] for new referral.
--- NOTE | 2024-07-26 15:19 | SWNOTE1 ---
See case management note. Referral has been sent to [facility] for SNF. Pt is a precert.
[2024-07-26] MEDS: DULOXETINE HCL 30 MG CAPSULE.DR PO (16:54)
[2024-07-26] MEDS: MORPHINE SULFATE 15 MG TABLET.ER PO (21:53)
[2024-07-26] MEDS: ATORVASTATIN CALCIUM 10 MG TABLET PO (21:53)
[2024-07-26 22:18] LABS: Potassium 5.3 mmol/L (3.5-5.1)
[2024-07-27] VITALS (16 sets, daily range): BP systolic 114–165; BP diastolic 67–87; PULSE 88–100; TEMP 36.6–37.1; O2SAT 90–93; BMI 36.3
[2024-07-27 05:16] LABS: Hematocrit 29.5 % (36.0-48.0); Hemoglobin 9.4 g/dL (12.0-16.0); Mean Corpuscular HGB Conc 31.9 g/dL (29.9-35.2); Mean Corpuscular Hemoglobin 30.6 pg (26.7-34.0); Mean Corpuscular Volume 96.1 fL (81.0-99.0); Mean Platelet Volume 10.1 fL (9.5-13.5); Platelet Count 178 10^3/uL (150-450); Red Blood Count 3.07 10^6/uL (4.20-5.40); Red Cell Distribution Width 12.6 % (11.0-15.0); White Blood Count 6.2 10^3/uL (4.0-11.0)
[2024-07-27 05:26] LABS: Anion Gap 10.5; Carbon Dioxide 29.1 mmol/L (21.0-32.0); Chloride 110 mmol/L (98-107); Estimated GFR (African America 42 (>=60 mL/min/1.73m^2); Glucose 114 mg/dL (74-106); Potassium 5.6 mmol/L (3.5-5.1); Sodium 144 mmol/L (136-145)
[2024-07-27 05:27] LABS: BUN Creatinine Ratio 31.5; Calcium 9.1 mg/dL (8.5-10.1); Estimated GFR (Non-African Ame 35 (>=60 mL/min/1.73m^2)
[2024-07-27] MEDS: 0.9 % SODIUM CHLORIDE 1,000 ML 100 ML IV ×2 (05:35→16:08)
[2024-07-27] MEDS: MORPHINE SULFATE 15 MG TABLET.ER PO ×2 (08:13→21:18)
[2024-07-27] MEDS: HEPARIN SODIUM (PORCINE) 5,000 UNIT/ML VIAL 5000 UNIT SUBQ ×2 (08:13→21:18)
[2024-07-27] MEDS: DULOXETINE HCL 60 MG CAPSULE.DR PO (08:13)
[2024-07-27] MEDS: GABAPENTIN 300 MG CAPSULE PO (08:13)
[2024-07-27] MEDS: ONDANSETRON PF 4 MG/2 ML VIAL IV (08:19)
--- NOTE | 2024-07-27 09:00 | SWNOTE1 ---
SW received a message from Ninfa at [facility] yesterday evening and they are able to accept and precert started.
[2024-07-27] MEDS: SODIUM ZIRCONIUM CYCLOSILICATE 10 GM POWD.PACK PO (10:02)
--- NOTE | 2024-07-27 11:05 | PM.PN ---
Progress Note: Subjective Subjective Interval history: Florencio improved overnight. Alert and oriented, no further confusion. C/o nausea and abdominal discomfort this am. Zofran helps. Decreased appetite and not hungry. Normal BM and no diarrhea. No chest pain or palpitations. No SOB or cough. Exam Constitutional Vital Signs, click to edit/add: Last Vital Signs Temp 98.0 F 07/27/24 07:58 Pulse 93 H 07/27/24 09:57 Resp 17 07/27/24 08:55 BP 165/70 H 07/27/24 07:58 Pulse Ox 93 L 07/27/24 07:58 O2 Del Method Room Air 07/27/24 07:58 Documenting provider has reviewed patient's vital signs: yes Common normals: no apparent distress, oriented x3 and alert HENMT Common normals: normocephalic Eye Common normals: PERRL and EOMs intact bilaterally Respiratory Common normals: normal respiratory effort and clear to auscultation bilaterally Cardio Common normals: regular rate, regular rhythm, no gallops, no murmurs and no rub GI Common normals: Normal to inspection, nondistended, normoactive bowel sounds present and non-tender Extremity Common normals: no pedal edema Progress Note: Objective Labs Labs: Short CBC 07/27/24 Range/Units 05:00 WBC 6.2 (4.0-11.0) 10^3/uL Hgb 9.4 L (12.0-16.0) g/dL Hct 29.5 L (36.0-48.0) % Plt Count 178 (150-450) 10^3/uL BMP 07/26/24 07/27/24 21:55 05:00 Sodium 144 Potassium 5.3 H 5.6 H Chloride 110 H Carbon Dioxide 29.1 BUN 46.0 H Creatinine 1.46 H Glucose 114 H Calcium 9.1 Progress Note: A&P Assessment and Plan (1) DEVAN (acute kidney injury): (2) Acute hyperkalemia: (3) Acute dehydration: (4) Fracture, rib: (5) HTN (hypertension): (6) COPD (chronic obstructive pulmonary disease): Plan Patient improved and alert this am but nausea. Renal function much improved and continue IV fluids. Potassium improved but still elevated and repeat Lokelma. Continue PT and likely will need SNF upon discharge. Vitals stable. Use zofran for nausea.
--- NOTE | 2024-07-27 11:23 | SWNOTE1 ---
VANNESA received an email and a phone call from Ninfa winkler [place] [facility]. Insurance is requesting a peer to peer be completed by 3:[address]. Buckner with peer to peer information.
--- NOTE | 2024-07-27 11:26 | CM.NOTE ---
Rounds made with Dr. Buckner. Dr. Buckner reviews plan of care with Catherine and . Verbalized understanding.
--- NOTE | 2024-07-27 15:06 | PT.DAILY ---
Physical Therapy Daily Note PT Daily Note/Assess Start: 07/27/24 14:57 Freq: Status: Active Protocol: Document 07/27/24 02:10 MICKEY (Rec: 07/27/24 15:06 MICKEY [id number]) Physical Therapy Daily Note/Assessment Time In/Time Out Time In 02:10 Time Out 02:20 Subjective Subjective Patient reports feeling good today, tired but is agreeable to therapy Therapeutic Activity Time Therapeutic Activity 10 Minutes (minutes) Therapeutic Activity 1 Units Therapeutic Activity Treatment Bed Mobility Ability Minimum Assist,Moderate Assist Chair Transfer Contact Guard Assist Ability Therapeutic Activity Patient completed unsupported seated exercises at EOB, Comments x 10 each: Marches, LAQ, HR/TR, Hip abd, and add squeezes. Patient completes sit to stand transfer from bed to RW CGA. Patient ambulates 40 feet with RQ CGA. Mild fatigue noted post walk and patient requires MIN/ MOD for LE for sit to supine transfer back to bed. Total Physical Therapy Time Total Therapy 10 Minutes Total Physical 1 Therapy Units Summary Daily Note Summary Patient completes unsupported sitting EOB exercises to increase core and B LE strength. Sit to stand transfer from bed to RW CGA. Patient demonstrates increased distance with ambulation to 40 feet with RW CGA. Mild fatigue noted post ambulation. Patient requires MIN/ MOD A for LE sit to supine transfer back to bed. Patient in bed with rails up, call light in reach, and all needs met post treatment. Continue to recommend SNF at [place] to improve B LE strength and endurance to return to PLOF.
--- NOTE | 2024-07-27 15:08 | SWNOTE1 ---
VANNESA received message from doctor and pt is approved to go to [facility]. Pt is not medically stable today, possibly tomorrow. VANNESA let Ninfa at [facility] know. SW to update pt.
--- NOTE | 2024-07-27 15:09 | SWNOTE1 ---
VANNESA sent over physician note from today, OT note, labs, vitals, and nursing notes to [facility].
--- NOTE | 2024-07-27 15:39 | SWNOTE1 ---
SW stopped in and spoke to pt and . Pt voiced she was feeling better today, still a little belly pain, but better today. Pt was alert and oriented as well. SW updated them that her insurance did approve her to go skilled, but she is not stable for discharge today, maybe tomorrow. They did ask about transport. VANNESA advised family, [facility], or trips could transport. Pt's would like to transport if someone helps pt in and out of car. VANNESA let him know that nurses and [facility] will assist. At this time plan is for discharge to [facility] tomorrow if medically stable.
[2024-07-27] MEDS: DULOXETINE HCL 30 MG CAPSULE.DR PO (16:09)
[2024-07-27] MEDS: ATORVASTATIN CALCIUM 10 MG TABLET PO (21:18)
[2024-07-28] VITALS (8 sets, daily range): BP systolic 156–164; BP diastolic 81–89; PULSE 88–101; TEMP 36.6; O2SAT 91–95
[2024-07-28] MEDS: 0.9 % SODIUM CHLORIDE 1,000 ML 100 ML IV (03:13)
[2024-07-28 06:00] LABS: Basophils Percent Auto 0.4 % (0.2-2.0); Eosinophils Absolute Auto 0.1 10^3/uL (0.0-0.7); Hemoglobin 9.9 g/dL (12.0-16.0); Immature Granulocytes Abs Auto 0.06 10^3/uL (0.00-0.03); Immature Granulocytes Pct Auto 0.8 % (0.0-0.5); Lymphocytes Absolute Auto 1.9 10^3/uL (1.2-3.8); Lymphocytes Percent Auto 25.3 % (20.5-60.0); Mean Corpuscular HGB Conc 31.9 g/dL (29.9-35.2); Mean Corpuscular Volume 97.2 fL (81.0-99.0); Mean Platelet Volume 10.5 fL (9.5-13.5); Monocytes Absolute Auto 0.4 10^3/uL (0.3-0.8); Monocytes Percent Auto 5.6 % (1.7-12.0); Neutrophils Absolute Auto 4.9 10^3/uL (1.4-6.5); Neutrophils Percent Auto 66.9 % (43.0-75.0); Platelet Count 164 10^3/uL (150-450); Red Blood Count 3.19 10^6/uL (4.20-5.40); Red Cell Distribution Width 12.5 % (11.0-15.0); White Blood Count 7.4 10^3/uL (4.0-11.0)
[2024-07-28 06:03] LABS: Anion Gap 13.1; BUN Creatinine Ratio 22.9; Chloride 110 mmol/L (98-107); Estimated GFR (African America >60 (>=60 mL/min/1.73m^2); Estimated GFR (Non-African Ame 51 (>=60 mL/min/1.73m^2); Glucose 112 mg/dL (74-106); Potassium 5.1 mmol/L (3.5-5.1); Sodium 144 mmol/L (136-145)
[2024-07-28] MEDS: HYDROCODONE/ACET 5-325 MG TABLET 1 TAB PO (06:18)
[2024-07-28] MEDS: HEPARIN SODIUM (PORCINE) 5,000 UNIT/ML VIAL 5000 UNIT SUBQ (08:53)
[2024-07-28] MEDS: DULOXETINE HCL 60 MG CAPSULE.DR PO (08:54)
[2024-07-28] MEDS: MORPHINE SULFATE 15 MG TABLET.ER PO (08:54)
[2024-07-28] MEDS: GABAPENTIN 300 MG CAPSULE PO (08:55)
--- NOTE | 2024-07-28 10:03 | CM.NOTE ---
Rounds made with Dr. Buckner, pt will discharge to skilled today at [facility]. Pt at first resistant to discharging to skilled, Dr. Buckner spoke in depth with pt about home safety and past fall. Pt in agreement at this time to skilled therapy at discharge for safety. Pt continues with pain, Dr. Buckner discussed changing medications for pain control for pt to be active in PT.
--- NOTE | 2024-07-28 10:37 | P.DS_ITS ---
DS: Providers Provider Date of admission: 07/25/24 21:29 Primary care physician: Sonia Pulliam MD Consults: 07/25/24 Consult to Dietitian Routine Reason for consultation: unknown nutritional status 07/26/24 09:00 Occupational Therapy Eval and Treat Routine Reason for consultation: Recent fall Has provider been notified: No Physical Therapy Eval and Treat Routine Reason for consultation: Recent fall DS: Diagnosis Discharge Diagnosis (1) DEVAN (acute kidney injury): (2) Acute hyperkalemia: (3) Acute dehydration: (4) Fracture, rib: (5) HTN (hypertension): (6) COPD (chronic obstructive pulmonary disease): DS: Summary Hospital Course Hospital Course: Reason for admission: See H&P for details. 79 y/o female to ER with abnormal labs and altered mental status. Fell few days ago and 07/19 found 9th right rib fracture. Takes MS Contin for chronic pain at home regularly. Taking additional ibuprofen due to pain. Seen by PCP and noted confusion. Outpatient labs showed DEVAN and hyperkalemia and admitted. Hospital course: Given Lokelma and started IV fluids. Continued to c/o pain in ribs and added norco in addition to home MS Contin. Started PT/OT for weakness. Renal function improved but potassium elevated and repeated Lokelma. Initially confused but resolved. Renal function back to baseline. Potassium remained elevated and had to repeat lokelma. PT/OT noted significant weakness and unsteady recommending SNF. Information sent to insurance and received approval for SNF after peer to peer. Labs at baseline and normal potassium. Discharged in stable condition. Will add percocet PRN for pain. Resume home medication as directed. Time Spent with Patient Time attestation: Total time spent providing and/or coordinating discharge services: Time spent: greater than 30 minutes Exam Constitutional Vital Signs, click to edit/add: Last Vital Signs Temp 97.8 F 07/28/24 07:54 Pulse 91 H 07/28/24 09:59 Resp 18 07/28/24 07:57 BP 156/86 H 07/28/24 07:54 Pulse Ox 95 07/28/24 07:54 O2 Del Method Room Air 07/28/24 07:54 Documenting provider has reviewed patient's vital signs: yes Common normals: no apparent distress, oriented x3 and alert HENMT Common normals: normocephalic Eye Common normals: PERRL and EOMs intact bilaterally Respiratory Common normals: normal respiratory effort and clear to auscultation bilaterally Cardio Common normals: regular rate, regular rhythm, no gallops, no murmurs and no rub GI Common normals: Normal to inspection, nondistended, normoactive bowel sounds present and non-tender Extremity Common normals: no pedal edema DS: Data Data Completed and Pending Labs on day of discharge: Labs from last 24 hours 07/28/24 05:12 WBC 7.4 RBC 3.19 L Hgb 9.9 L Hct 31.0 L MCV 97.2 MCH 31.0 MCHC 31.9 RDW 12.5 Plt Count 164 MPV 10.5 Neut % (Auto) 66.9 Lymph % (Auto) 25.3 Bailey % (Auto) 5.6 Eos % (Auto) 1.0 Baso % (Auto) 0.4 Neut # (Auto) 4.9 Lymph # (Auto) 1.9 Bailey # (Auto) 0.4 Eos # (Auto) 0.1 Baso # (Auto) 0.0 Abs Immat Gran (auto) 0.06 H Imm/Tot Granulo (auto) 0.8 H Sodium 144 Potassium 5.1 Chloride 110 H Carbon Dioxide 26.0 Anion Gap 13.1 BUN 24.0 H Creatinine 1.05 H Est GFR ( Amer) >60 Est GFR (Non-Af Amer) 51 L BUN/Creatinine Ratio 22.9 Glucose 112 H Calcium 9.0 Discharge Plan Discharge Disposition: Xfer SNF Condition: Good Discharge Medications: New oxycodone-acetaminophen 5-325 mg tablet 1 tab PO QID PRN (Reason: pain) 5 Days Qty: 20 0RF Continued lisinopril 5 mg tablet 5 mg PO DAILY naproxen 500 mg tablet 500 mg PO DAILY Patient Comments: takes at noon duloxetine 30 mg capsule,delayed release(DR/EC) 30 mg PO QDAY Patient Comments: takes at 4pm duloxetine 60 mg capsule,delayed release(DR/EC) 60 mg PO DAILY Patient Comments: takes with breakfast gabapentin 300 mg capsule 300 mg PO DAILY pravastatin 10 mg tablet 10 mg PO DAILY albuterol sulfate 90 mcg/actuation HFA aerosol inhaler 2 puff INHALATION Q4H PRN (Reason: shortness of breath or wheezing) ibuprofen 800 mg tablet 800 mg PO Q8H PRN (Reason: pain) Qty: 20 0RF morphine 15 mg tablet extended release 15 mg PO BID 5 Days Qty: 10 0RF Print Language: Mongolian [employer] Instructions: Discharge to [facility] skilled Forms: Portal Instructions
--- NOTE | 2024-07-28 10:46 | PT.DAILY ---
Physical Therapy Daily Note PT Daily Note/Assess Start: 07/27/24 14:57 Freq: Status: Active Protocol: Document 07/28/24 10:30 MICKEY (Rec: 07/28/24 10:46 [id number]) Physical Therapy Daily Note/Assessment Time In/Time Out Time In 10:28 Time Out 10:37 Subjective Subjective Patient reports not feeling well today, pain is 10/10 in back. Just walked with nursing to use the bathroom and is feeling fatigued and nauseous due to the pain. Patient is agreeable to attempt seated exercises EOB. Therapeutic Exercise Time Therapeutic Exercise 9 Minutes (minutes) Therapeutic Exercise 1 Units Therapeutic Exercise Treatment Therapeutic Exercise Seated Exercises: Treatment Marches x 10 LAQ x 10 HR/ TR x 10 Total Physical Therapy Time Total Therapy 9 Minutes Total Physical 1 Therapy Units Summary Daily Note Summary Patient able to complete marches, LAQ, and HR/TR unsupported at EOB before reporting feeling dizzy and requests to return to bed. Patient requires MIN/MOD A with LE for sit to supine transfer back to bed. Patient in bed with rails up, call light in reach and all needs met post treatment. Continue to recommend SNF at [place] to improve B LE strength in order to return to PLOF.
--- NOTE | 2024-07-28 11:16 | SWNOTE1 ---
Pt medically stable for discharge to [facility] today. VANNESA stopped in to speak with pt and . VANNESA asked about transportation, pt's would like to transport and pt ok with this. VANNESA let nurse know. All discharge orders are in. VANNESA let [facility] know that pt will be over within the hour. VANNESA faxed dc med rec and dc summary to Omer at [facility]. VANNESA took packet to the floor. Pt is going skilled to [facility]. VANNESA completed HENS.
== END 2024-07-28 11:35 | DRG 683 ==
LOC: ER 15:52 → MS 21:34
PROVIDERS: Internal Medicine; Registered Nurse; Admitting Provider Family Medicine; Emergency Provider Emergency Medicine; PCP Family Medicine; Visit Provider Family Medicine
DX: N17.9 Acute kidney failure, unspecified (principal); S22.31XA Fracture of one rib, right side, initial encounter for closed fracture; W19.XXXA Unspecified fall, initial encounter; E87.5 Hyperkalemia; E86.0 Dehydration; I10 Essential (primary) hypertension; R53.1 Weakness; Z79.1 Long term (current) use of non-steroidal anti-inflammatories (NSAID); Z79.899 Other long term (current) drug therapy; F32.A Depression, unspecified; Z85.3 Personal history of malignant neoplasm of breast; Z90.13 Acquired absence of bilateral breasts and nipples; G89.29 Other chronic pain; Z79.891 Long term (current) use of opiate analgesic
CPT/HCPCS: 36415; 70450; 71046; 80048; 80053; 84132; 84443; 84484; 85025; 85027; 93005; 94640; 96361; 96374; 97110; 97161; 97165; 97530; 97535; 99285; J1644; J2060; J2405

== ENCOUNTER 2024-08-01 14:17 | Outpatient (OUT) | payer MEDICARE, SELFPAY ==
[2024-08-01 15:20] LABS: Anion Gap 14.4; BUN Creatinine Ratio 14.3; Calcium 9.3 mg/dL (8.5-10.1); Carbon Dioxide 27.8 mmol/L (21.0-32.0); Chloride 104 mmol/L (98-107); Estimated GFR (African America 57 (>=60 mL/min/1.73m^2); Estimated GFR (Non-African Ame 47 (>=60 mL/min/1.73m^2); Glucose 108 mg/dL (74-106); Potassium 4.2 mmol/L (3.5-5.1); Sodium 142 mmol/L (136-145)
== END 2024-08-01 14:18 | disposition home or self-care (01) ==
LOC: LAB 14:18
PROVIDERS: PCP Family Medicine; Visit Provider Family Medicine
DX: R60.9 Edema, unspecified (principal); I50.9 Heart failure, unspecified
CPT/HCPCS: 36415; 80048; 83880

== ENCOUNTER 2024-08-11 08:25 | Outpatient (OUT) | payer MEDICARE, SELFPAY ==
--- OUTSIDE RECORDS SUMMARY | 2024-08-11 08:33 | XMS_ITS | CCD ---
Author Organization [facility] Inform ion Partnership [facility] Care Team Providers Care Zinc Plate Grainer Name Role Phone Oumar Gunter MD Primary Care Provider Miguel Schultz II Unavailable MD Oumar Gunter Primary Care Provider MD Miguel Schultz II Attending Provider [phone] MIGUEL SCHULTZ Admitting Unavailable MIGUEL SCHULTZ Attending Unavailable LYRIC, DR OUMAR San Primary Care Unavailable GUNTER, DR OUMAR San Admitting Unavailable GUNTER, DR OUMAR San Attending Unavailable GUNTER, DR OUMAR San Primary Care Unavailable FAWWAArgenis, SHAIKH Sweetie Admitting Unavailable SHAIKH Sweetie RHODES Attending Unavailable GUNTER, DR OUMAR San Referring Unavailable GUNTER, DR OUMAR San Primary Care Unavailable [facility], DR CIARRA [employer] Unavailable FAWWAArgenis, SHAIKH [...] GUNTER, DR OUMAR San Primary Care Unavailable MILFORD, DR EDWARDO [employer] Consulting Unavailable GUNTER, DR OUMAR San Consulting Unavailable GUNTER, DR OUMAR San Admitting Unavailable GUNTER, DR OUMAR San Attending Unavailable GUNTER, DR OUMAR aSn Primary Care Unavailable GUNTER, DR OUMAR San Consulting Unavailable Oumar Gunter Unavailable MD Oumar Gunter Primary Care Provider [phone] MD Miguel Schultz II Attending Provider [phone] Linda Renteria Unavailable MD Oumar Gunter Primary Care Provider MD Linda Renteria Attending Provider [phone] MD Oumar Gunter Primary Care Provider MD Linda Renteria Attending Provider MD Linda Renteria Referring Provider [phone] MD Oumar Gunter Primary Care Provider MD Fidelina Escobar Attending Provider Oumar Gunter MD Primary Care Provider Paty Booth MD Attending Provider Oumar Gunter Primary Care Unavailable Paty Booth Attending Unavailable Paty Booth Admitting Unavailable Allergies Allergy Classification Reported Allergen(s) Allergy Type Date of Onset Reaction(s) Facility (4 sources) Adhesive Tape Allergy to substance 4 Rash [facility] (20 sources) Adhesive Tape Drug allergy rash [employer] Other (2 sources) Adhesive agent Drug allergy (disorder) 6 [facility] Repository (1 source) Adhesive Tape Drug allergy (disorder) 5 [facility] Repository Medications Current Medications Medication Drug Class(es) Dates Sig (Normalized) Sig (Original) [id number] 200 actuat albuterol 0.09 mg/actuat metered dose inhaler (4 sources) beta2-Adrenergic Agonist Start: 06-27-2024 Albuterol Sulfate 90 mcg/actuation HFA aerosol inhaler Active INHALATION June 27, 2024 12:00am benoxinate hydrochloride 4 mg/ml / fluorescein sodium 2.5 mg/ml ophthalmic solution (1 source) Diagnostic Dye Start: 08-07-2021 End: 08-07-2021 fluorescein-rosalio xinate 0.25-0.4 % 1 Drop (FLURESS) cefadroxil 500 mg oral capsule (6 sources) Cephalosporin Antibacterial Start: 07-04-2021 take 1 capsule by mouth every twelve hours Cefadroxil 500 MG 1 tablet Orally every 12 hrs for 7 days MED TO BED UPON DISCHARGE DOS 07/21/2021 Jun, Active cholecalciferol 0.025 mg oral tablet (20 sources) Vitamin D Start: 07-10-2021 take 1 tablet by mouth every twenty-four hours Vitamin D 25 MCG (1000 UT) 1 tablet Orally Once a day for 56 day(s) Jun, Active Start: 07-07-2021 take 1 tablet by mariluz th once daily Cholecalciferol (Vitamin D3) (Vitamin D3) 25 mcg (1,000 unit) Tablet Active 25 MCG PO Daily July 07, 2021 12:00am Start: 02-27-2021 Vitamin D3 250 MCG (69711 UT) as directed Orally Feb, Active Start: 02-27-2021 Vitamin D3 250 MCG (23136 UT) as directed Orally Feb, Active Comment on above: Take 1,000 Units by mouth once daily. docusate sodium 50 mg / sennosides, snf 8.6 mg oral tablet (6 sources) Start: 07-05-19 take 2 tablets by mouth every twenty-four hours Senokot S 8.6-50 MG 2 tablets Orally Once a day for 30 day(s) MED TO BED UPON DISCHARGE DOS 07/21/2021 Jun, Active furosemide 20 mg oral tablet (1 source) Loop Diuretic Start: 08-02-19 take 1 tablet by mouth once daily Furosemide 20 mg tablet Active 20 MG PO Daily August 01, 2024 12:00am Healthy Eyes - (20 sources) Healthy Eyes - a s directed Orally Active ibuprofen 800 mg oral tablet (2 sources) Nonsteroidal Anti-inflammatory Drug Start: 07-26-19 take 1 tablet by mouth twice daily Ibuprofen 800 mg tablet Active 800 MG PO Twice daily July 25, 2024 12:00am Iron (5 sources) Start: 07-11-19 take 1 tablet by mouth three times daily Iron (Ferrous Sulfate) 325 (65 Fe) MG 1 tablet Orally TID for 28 days Jun, Active ketorolac tromethamine 5 mg/ml ophthalmic solution (3 sources) Nonsteroidal Anti-inflammatory Drug, Cyclooxygenase Inhibitor Start: 08-21-19 keTORolac (ACULAR) 0.5 % ophthalmic solution USE [...] OPERATIVE EYE, BEGINNING ONE DAY AFTER SURGERY lisinopril 5 mg oral tablet (20 sources) Angiotensin Converting Enzyme Inhibitor Start: 11-01-2023 Lisinopril 5 mg tablet Active 0 .ROUTE .COMPLEX November 01, 2023 9:43am TAKE 1 TABLET EVERY DAY Start: 06-01-2023 End: 11-01-2023 take 1 tablet by mouth once daily Lisinopril 5 mg tablet Discontinued 5 MG PO Daily August 18, 2023 12:29pm November 01, 2023 9:43am Start: 01-21-2023 take 1 tablet by mariluz th every twenty-four hours Lisinopril 5 MG 1 tablet Orally Once a day for 30 day(s) Dec, Active methylPREDNISolone 4 mg oral tablet (1 source) Corticosteroid Start: 09-04-2021 Medrol 4 MG as directed Orally Once a day for 5 days Aug, Active morphine sulfate 15 mg extended release oral tablet (20 sources) Opioid Agonist Start: 05-09-2024 End: 07-31-2024 take 1 tablet by mouth every twelve hours Morphine 15 mg tablet extended release Active 15 MG PO Q12H 60 July 31, 2024 Start: 04-26-2024 End: 04-26-2024 take 1 tablet by mouth every twelve hours Morphine 15 mg tablet extended release Discontinued 15 MG PO Q12H 30 April 26, 2024 April 26, 2024 11:24am Start: 04-26-2024 End: 05-09-2024 take 1 tablet by mouth every twelve hours Morphine 15 mg tablet extended release Discontinued 15 MG PO Q12H 30 April 26, 2024 May 09, 2024 4:42pm Start: 04-26-2024 End: 05-09-2024 take 1 tablet by mouth every twelve hours Morphine 15 mg tablet extended release Discontinued 15 MG PO Q12H 30 April 26, 2024 May 09, 2024 4:42pm Start: 07-04-2021 take 1 tablet by mariluz th every twelve hours for pain Morphine Sulfate ER 15 MG 1 tablet for breakthrough pain only Orally every 12 hrs for 5 days MED TO BED UPON DISCHARGE DOS 07/21/2021 Jun, Active Multivitamin preparation (14 sources) take 1 tablet by mouth once daily Multi Vitamin - 1 tablet Orally Once a day Active Mv,Ca,Min-Folic Acid-Vit K1 (One-A-Day Women's 50 Plus) 400-20 mcg Tablet (11 sources) Start: 07-07-2021 take 50-400 tablets by mouth [...] Tablet Orally Once a day Feb, Active Tiotropium-Olodate rol (7 sources) Anticholinergic, beta2-Adrenergic Agonist Start: 06-01-2023 Tiotropium-Olodate rol (Stiolto Respimat) 2.5-2.5 mcg/actuation mist Active INHALATION June 01, 2023 12:00am Start: 06-01-2023 Tiotropium-Olo daterol (Stiolto Respimat) 2.5-2.5 mcg/actuation mist Active INHALATION June 01, 2023 1:00am ondansetron 8 mg oral tablet (6 sources) Serotonin-3 Receptor Antagonist Start: 07-04-2021 take 1 tablet by mouth three times daily as needed for nausea Ondansetron HCl 8 MG 1 tablet as needed for nausea Orally TID for 10 days MED TO BED UPON DISCHARGE DOS 07/21/2021 Jun, Active polyethylene glycol 3350 [id number] mg powder for oral solution (6 sources) Osmotic Laxative Start: 07-04-2021 MiraLax 17 GM 1 packet mixed with 8 ounces of fluid Orally Once a day for 7 days MED TO BED UPON DISCHARGE DOS 07/21/2021 Jun, Active pravastatin sodium 10 mg oral tablet (20 sources) HMG-CoA Reductase Inhibitor Start: 01-18-2024 Pravastatin 10 mg tablet Active 0 .ROUTE .COMPLEX 90 January 18, 2024 4:48pm TAKE 1 TABLET EVERY DAY Start: 12-25-2010 End: 01-18-2024 take 1 tablet by mouth once daily at bedtime Pravastatin 10 mg tablet Discontinued 10 MG PO Daily at bedtime July 07, 2021 12:00am January 18, 2024 4:48pm Comment on above: Take 1 tablet by [...] OPERATIVE EYE, BEGINNING ONE DAY AFTER SURGERY Vit A,C And O-Dhzfzw-Pnjoseqg (Healthy Eyes) 300 mcg-200 mg-27 mg-2 mg Tablet (11 sources) Start: 07-07-2021 take 1 tablet by mouth once daily Vit A,C And N-Jiyugp-Ncffndiv (Healthy Eyes) 300 mcg-200 mg-27 mg-2 mg Tablet Active 1 TAB PO Daily July 06, 2021 11:00pm Start: 07-07-2021 take 1 tablet by mariluz th once daily Vit A,C And C-Osaknw-Cqsfktnw (Healthy Eyes) 300 mcg-200 mg-27 mg-2 mg Tablet Active 1 TAB PO Daily July 07, 2021 12:00am Vitamin D 25 MCG (1000 UT) (20 sources) Start: 07-10-2021 take 1 tablet by mouth once daily Vitamin D 25 MCG (1000 UT) 1 tablet Orally Once a day for 56 day(s) Jun, Active Vitamin D3 250 MCG (94161 UT) (19 sources) Start: 02-27-2021 Vitamin D3 250 MCG (69981 UT) as directed Orally Feb, Active Completed/Discontinued Medications Medication Drug Class(es) Dates Sig (Normalized) Sig (Original) acetaminophen 500 mg oral tablet (20 sources) Start: 07-07-2021 End: 05-31-2023 take 2 tablets by mouth three times daily as needed for pain Acetaminophen (Acetaminophen Extra Strength) 500 mg Tablet Discontinued 1000 MG PO Three times daily as needed for Pain July 07, 2021 12:00am May 31, 2023 4:18pm Start: 07-04-2021 take 2 tablets by mo [facility] every eight hours for pain acetaminophen (TYLENOL) 500 mg tablet TAKE TWO TABLETS BY MOUTH EVERY 8 HOURS FOR PAIN 0 07/16/2021 Active Comment on above: TAKE TWO TABLETS BY MOUTH EVERY 8 HOURS FOR PAIN aspirin 81 mg delayed release oral tablet [...] for 30 day(s) Feb, Active Start: 12-25-2010 End: 03-06-2024 take 1 tablet by mouth once daily Aspirin (Aspirin Low Dose) 81 mg Tablet,Delayed Release (Dr/Ec) Discontinued 81 MG PO Daily July 07, 2021 12:00am March 06, 2024 12:52pm Comment on above: Take 1 tablet by mariluz th once daily. calcium carbonate 1250 mg / cholecalciferol 100 unt / vitamin k1 0.04 mg chewable tablet (11 sources) Vitamin D, Warfarin Reversal Agent, Vitamin [...] meals. diphenhydrAMINE hydrochloride 25 mg oral tablet (11 sources) Histamine-1 Receptor Antagonist Start: End: take 1 tablet by mouth once daily at bedtime as needed Diphenhydramine Hcl (Sleep Aid (Diphenhydramine)) 25 mg Tablet Discontinued 25 MG PO Daily at bedtime as needed for Insomnia July 07, 2021 12:00am June 01, 2023 1:20pm DULoxetine 60 mg delayed release oral capsule (20 sources) Serotonin and Norepinephrine Reuptake Inhibitor Start: End: Duloxetine 60 mg capsule,delayed release(DR/EC) Discontinued 0 .ROUTE .COMPLEX May 09, 2024 5:09pm July 24, 2024 12:20pm TAKE 1 CAPSULE EVERY MORNING Start: 08-04-2023 End: 07-24-2024 Duloxetine 30 mg capsule,del ayed release(DR/EC) Discontinued 0 .ROUTE .COMPLEX May 09, 2024 5:09pm July 24, 2024 12:20pm TAKE 1 CAPSULE AT BEDTIME Start: 08-01-2015 End: 08-04-2023 take 1 capsule by mouth once daily in the morning Duloxetine 60 mg capsule,delayed release(DR/EC) Discontinued 60 MG PO Every morning July 07, 2021 12:00am August 04, 2023 1:44pm Start: 05-21-2015 End: 08-04-2023 take 1 capsule by mouth once daily at bedtime Duloxetine 30 mg capsule,delayed release(DR/EC) Discontinued 30 MG PO Daily at bedtime July 07, 2021 12:00am August 04, 2023 1:44pm Comment on above: Take 1 capsule by mo [facility] once daily. TAKE ONE CAPSULE MICHELLE RY MORNING 1 capsule every morn ing. 1 capsule daily at b edtime. ferrous sulfate 325 mg oral tablet (4 sources) Start: 07-10-2021 take 1 tablet by mouth three times daily ferrous sulfate 325 mg (65 mg iron) tablet TAKE 1 TABLET BY MOUTH 3 TIMES A DAY FOR 28 DAYS 0 07/10/2021 Active Comment on above: TAKE 1 TABLET BY MARILUZ 3 TIMES A DAY FOR 28 DAYS gabapentin 300 mg oral capsule (20 sources) Anti-epileptic Agent Start: 06-29-2023 End: 06-14-2024 take 1 capsule by mouth three times daily Gabapentin 300 mg capsule Discontinued 300 MG PO Three times daily 270 90 March 06, 2024 1:26pm June 14, 2024 1:05pm Start: 07-07-2021 End: 06-29-2023 take 1 tablet by mouth three times daily Gabapentin 600 mg tablet Discontinued 600 MG PO Three times daily July 07, 2021 12:00am June 29, 2023 2:57pm Start: 05-14-2021 gabapentin (NE URONTIN) 600 mg tablet take 1 capsule by mo [facility] every twenty-four hours Gabapentin 400 MG 1 tablet Orally Once a day for 7 days Active levoFLOXacin 500 mg oral tablet (7 sources) Quinolone Antimicrobial Start: 06-02-2023 End: 06-29-2023 take 1 tablet by mouth once daily Levofloxacin 500 mg tablet Discontinued 500 MG PO Daily June 02, 2023 1:00am June 29, 2023 2:29pm meloxicam 15 mg oral tablet (20 sources) Nonsteroidal Anti-inflammatory Drug Start: 02-27-2021 End: 07-30-2021 take 1 tablet by mouth every twenty-four hours Meloxicam 15 MG 1 tablet Orally Once a day for 30 day(s) Feb, Not-Taking/PRN Comment on above: TAKE 1 TABLET BY [facility] EVERY DAY FOR 30 DAYS 24 hr mirabegron 50 mg extended release oral tablet (20 sources) beta3-Adrenergic Agonist Start: 07-27-2023 End: 12-20-2023 take 1 tablet by mouth once daily Mirabegron (Myrbetriq) 50 mg tablet extended release 24 hr Discontinued 0 .ROUTE .COMPLEX October 25, 2023 9:59am December 20, 2023 10:17am TAKE 1 TABLET BY MOUTH EVERY DAY FOR 90 DAYS Start: 06-01-2023 End: 09-15-2023 take 1 tablet by mouth once daily Mirabegron (Myrbetriq) 50 mg tablet extended release 24 hr Discontinued 50 MG PO Daily July 27, 2023 12:00am July 27, 2023 3:47pm Start: 07-07-2021 take 50 mg by mouth once daily MYRBETRIQ 50 mg Tb24 Take 50 mg by mouth once daily. 0 07/07/2021 Active Comment on above: Take 50 mg by mouth once daily. Naloxone (Narcan) 4 mg/actuation spray,non-aerosol (6 sources) Start: 10-21-2023 End: 03-06-2024 Naloxone (Narcan) 4 mg/actuation spray,non-aerosol Discontinued 1 SPRAY INTRANASAL Q2M 2 October 21, 2023 12:00am March 06, 2024 12:54pm spray 1 dose into ONE nostril; alternate nostrils w each dose until help arrives Start: 10-21-2023 End: 03-06-2024 Naloxone (Narcan) 4 mg/actua tion spray,non-aerosol Discontinued 1 SPRAY INTRANASAL Q2M 2 October 20, 2023 11:00pm March 06, 2024 11:54am spray 1 dose into ONE nostril; alternate nostrils w each dose until help arrives naproxen 500 mg oral tablet (20 sources) Nonsteroidal Anti-inflammatory Drug Start: 06-24-2023 End: 11-01-2023 take 1 tablet by mouth once daily Naproxen 500 mg tablet Discontinued 0 .ROUTE .COMPLEX 90 August 18, 2023 12:30pm November 01, 2023 9:43am TAKE 1 TABLET BY MOUTH EVERY DAY Start: 04-30-2021 End: 06-24-2023 take 1 tablet by mouth once daily Naproxen 500 mg tablet Discontinued 500 MG PO every day at noon July 07, 2021 12:00am June 24, 2023 1:04pm Start: 02-27-2021 take 1 tablet by mariluz th every twelve hours at mealtime as needed Naproxen 500 MG 1 tablet with food or milk as needed Orally every 12 hrs Feb, Active Comment on above: Take 500 mg by mouth once daily. oseltamivir 75 mg oral capsule (5 sources) Neuraminidase Inhibitor Start: 06-03-19 End: 06-28-19 take 1 capsule by mouth every twelve hours Oseltamivir (Tamiflu) 75 mg capsule Discontinued 75 MG PO Every 12 hours 10 5 June 02, 2024 1:00am June 27, 2024 2:13pm 24 hr oxybutynin chloride 10 mg extended release oral tablet (1 source) Cholinergic Muscarinic Antagonist Start: 05-05-19 End: 07-31-19 oxybutynin ER (DITROPAN XL) 10 mg 24 hr tablet oxyCODONE hydrochloride 10 mg oral tablet (20 sources) Opioid Agonist Start: 06-29-19 End: 07-26-19 take 1 tablet by mouth three times daily as needed for pain Oxycodone 10 mg tablet Discontinued 10 MG PO Three times daily as needed for pain 90 September 16, 2023 October 14, 2023 10:32am Start: 05-27-2023 End: 06-29-2023 take 1 tablet by mouth every eight hours as needed for pain Oxycodone 15 mg tablet Discontinued 15 MG PO Every 8 hours as needed for pain 90 May 31, 2023 June 29, 2023 2:57pm Start: 05-04-2023 take 1 tablet by mariluz [...] Jun, Active Start: 07-07-2021 End: 06-01-2023 take 1 tablet by mouth twice daily Oxycodone 15 mg tablet Discontinued 15 MG PO Twice daily July 07, 2021 12:00am June 01, 2023 1:21pm Start: 07-07-2021 End: 06-01-2023 take 7.5 mg by mouth once daily Oxycodone 15 mg tablet Discontinued 7.5 MG PO Daily July 07, [...] tablet Orally every 6 hrs Feb, Active predniSONE 20 mg oral tablet (7 sources) Start: 06-02-2023 End: 06-29-2023 take 1 tablet by mouth twice daily Prednisone 20 mg tablet Discontinued 20 MG PO Twice daily June 02, 2023 1:00am June 29, 2023 2:29pm 12 hr tapentadol 50 mg extended release oral tablet (1 source) Opioid Agonist Start: 06-19-2015 End: 07-30-2021 tapentadol (NUCYNTA ER) 50 mg Tb12 Take one tablet twice a day for pain 60 tablet 0 06/19/2015 07/30/2021 Discontinued (Course of therapy completed) Comment on above: Take one tablet twic e a day for pain traMADol hydrochloride 50 mg oral tablet (10 sources) Opioid Agonist Start: 07-04-2021 take 1 tablet by mouth every six hours as needed traMADol (ULTRAM) 50 mg tablet Take 50 mg by mouth every 6 hours as needed. 0 07/16/2021 Active Comment on above: Take 50 mg by mouth every 6 hours as needed. Triamcinolone (20 sources) Corticosteroid Start: 02-27-2021 Kenalog -40 mg Feb, 120 mg zolpidem tartrate 10 mg oral tablet (1 source) gamma-Aminobutyric Acid-ergic Agonist Start: 09-04-2014 End: 07-30-2021 zolpidem (AMBIEN) 10 mg tab Take 1 tablet at bedtime. 0 09/04/2014 07/30/2021 Discontinued (Course of therapy completed) Comment on above: Take 1 tablet at bed time. 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] 05-31-2023 Chronic Cataract (2 sources) Bilateral senile combined form cataracts of eyes; Translations: [Combined forms of age-related cataract, bilateral] Chronic Chronic obstructive pulmonary disease and bronchiectasis (11 sources) Moderate chronic obstructive pulmonary disease; Translations: [Chronic obstructive pulmonary disease, unspecified] Chronic Congestive heart failure; nonhypertensive (6 sources) Congestive heart failure; Translations: [Heart failure, unspecified] Onset: 2 07-30-2021 Chronic Deficiency and other anemia (7 sources) Anemia of chronic disease; Translations: [Anemia in other chronic diseases classified elsewhere] 06-02-2023 Chronic Deficiency and other anemia (1 source) Anemia in other chronic diseases classified elsewhere; Translations: [Anemia of other chronic disease] 06-02-2023 Chronic Disorders of lipid metabolism (18 sources) Hyperlipidemia; Translations: [Other hyperlipidemia] Onset: 2 07-30-2021 Chronic E Codes: Fall (4 sources) Fall; Translations: [Unspecified fall, initial encounter] 07-25-2024 Episodic Essential hypertension (6 sources) Hypertensive disorder; Translations: [Essential (primary) hypertension] 12-20-2023 Chronic Comment on above: hx of-no medication currentlyProblem List clean-up per request of Phys. EHR Cmte Mycoses (2 sources) Histoplasmosis syndrome of left eye; Translations: [Histoplasmosis, unspecified] Episodic Osteoarthritis (20 sources) Osteoarthritis of left knee joint; Translations: [Unilateral primary osteoarthritis, left knee] Onset: 2 Resolved: 2 Chronic Osteoporosis (20 sources) Primary osteoporosis; Translations: [Age-related osteoporosis without current pathological fracture] Onset: 2 Resolved: 2 Chronic Other aftercare (20 sources) Patient encounter status; Translations: [Aftercare following joint replacement surgery] Chronic Other aftercare (4 sources) Aftercare following joint replacement surgery Onset: 2 Resolved: 2 Chronic Other aftercare (6 sources) Patient encounter status; Translations: [Encounter for palliative care] 04-25-2024 Episodic Other aftercare (5 sources) Encounter for palliative care; Translations: [Encounter for palliative care] 04-26-2024 Episodic Other and unspecified benign neoplasm (17 sources) History of polyp of colon; Translations: [History of colon polyps] Episodic Other connective tissue disease (20 sources) Artificial knee joint present; Translations: [Presence of left artificial knee joint] 05-31-2023 Chronic Other connective tissue disease (4 sources) Presence of left artificial knee joint Onset: 2 Resolved: 2 Chronic Other connective tissue disease (1 source) Neuralgia and neuritis, unspecified Episodic Other connective tissue disease (4 sources) Hand pain; Translations: [Pain in left hand] 06-27-2024 Episodic Other connective tissue disease (4 sources) Pain in left hand; Translations: [Pain in limb] 06-27-2024 Episodic Other diseases of bladder and urethra (20 sources) Overactive bladder; Translations: [Overactive bladder] 05-31-2023 Chronic Other diseases of bladder and urethra (1 source) Overactive bladder Chronic Other eye disorders (2 sources) H/O: L cataract extraction; Translations: [Cataract extraction status, left eye] Episodic Other fractures (2 sources) Fracture of rib; Translations: [Fracture of one rib, unspecified side, initial encounter for closed fracture] 07-25-2024 Episodic Other fractures (2 sources) Fracture of one rib, unspecified side, initial encounter for closed fracture; Translations: [Closed fracture of rib(s), unspecified] 07-25-2024 Episodic Other gastrointestinal disorders (6 sources) Constipation; Translations: [Constipation, unspecified] 04-30-2024 Episodic Other gastrointestinal disorders (5 sources) Constipation, unspecified; Translations: [Constipation, unspecified] 04-26-2024 Episodic Other lower respiratory disease (14 sources) Dyspnea; Translations: [Shortness of breath] 05-31-2023 Episodic Other lower respiratory disease (2 sources) Shortness of breath Episodic Other lower respiratory disease (4 sources) Cough; Translations: [Cough] 07-25-2024 Episodic Other nervous system disorders (5 sources) Complex regional pain syndrome type I; Translations: [Complex regional pain syndrome I, unspecified] Onset: 4 07-06-2013 Chronic Other nervous system disorders (17 sources) Expressive dysphasia; Translations: [Aphasia] 05-31-2023 Chronic Other nervous system disorders (15 sources) Peripheral neuropathic pain; Translations: [Unspecified mononeuropathy of bilateral lower limbs] 05-31-2023 Chronic Other nervous system disorders (5 sources) Unspecified mononeuropathy of bilateral lower limbs; Translations: [Unspecified hereditary and idiopathic peripheral neuropathy] Chronic Other nervous system disorders (7 sources) Metabolic encephalopathy; Translations: [Metabolic encephalopathy] 06-02-2023 Chronic Other nervous system disorders (1 source) Metabolic encephalopathy; Translations: [Metabolic encephalopathy] 06-02-2023 Chronic Other nervous system disorders (6 sources) 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; Translations: [Neoplasm related pain (acute) (chronic)] 04-26-2024 Chronic Other nervous system disorders (10 sources) Neoplasm related pain (acute) (chronic); Translations: [Neoplasm related pain (acute) (chronic)] 04-26-2024 Chronic Other nervous system disorders (1 source) Other speech disturbances Episodic Other non-traumatic joint disorders (6 sources) Pain in wrist; Translations: [Pain in left wrist] 03-07-2024 Episodic Other non-traumatic joint disorders (2 sources) Pain in left wrist; Translations: [Pain in joint, forearm] Onset: 5 03-06-2024 Episodic Other nutritional; endocrine; and metabolic disorders (2 sources) Body mass index 30+ - obesity; Translations: [Obesity, unspecified] Onset: 2 08-06-2021 Chronic Other skin disorders (6 sources) Generalized hyperhidrosis; Translations: [GENERALIZED HYPERHIDROSIS] Onset: 2 Episodic Other skin disorders (14 sources) Excessive sweating; Translations: [Generalized hyperhidrosis] 05-31-2023 Episodic Pneumonia (except that caused by tuberculosis or sexually transmitted disease) (8 sources) Pneumonia; Translations: [Pneumonia, unspecified organism] 06-02-2023 Episodic Pulmonary heart disease (19 sources) Pulmonary hypertension; Translations: [Pulmonary hypertension, unspecified] Chronic Residual codes; unclassified (2 sources) Confusional state; Translations: [Disorientation, unspecified] 07-25-2024 Episodic Residual codes; unclassified (2 sources) Disorientation, unspecified; Translations: [Unspecified psychosis] 07-25-2024 Episodic Residual codes; unclassified (1 source) Edema; Translations: [Edema, unspecified] 08-01-2024 Episodic Residual codes; unclassified (1 source) Edema, unspecified; Translations: [Edema] 08-01-2024 Episodic Retinal detachments; defects; vascular occlusion; and retinopathy (7 sources) Degenerative disorder of macula ; Translations: [Unspecified macular degeneration] 05-31-2023 Chronic Septicemia (except in labor) (8 sources) Sepsis; Translations: [Sepsis, unspecified organism] 06-02-2023 Episodic Spondylosis; intervertebral disc disorders; other back problems (12 sources) Pain in thoracic spine; Translations: [Chronic thoracic back pain] Episodic Unclassified (2 sources) CONTACT W/AND (SUSP) EXPOS COVID-19; Translations: [CONTACT W/AND (SUSP) EXPOS COVID-19] Onset: 2 Viral infection (1 source) COVID-19; Translations: [COVID-19] Onset: 2 Past or Other Problems Problem Classification Problem Date Documented Da te Episodic/Chronic Diabetes mellitus without complication (1 source) Impaired fasting glucose; Translations: [IMPAIRED FASTING GLUCOSE] Onset: 04-06-2021 Episodic Other aftercare (2 sources) Other senior care (current) drug therapy; Translations: [OTH 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 CURRENT DRUG THERAPY] Onset: 05-28-2021 Resolved: 05-28-2021 [...] Translations: [DYSPNEA UNSPECIFIED] Onset: 10-17-2021 Episodic Other nervous system disorders (4 sources) Burning sensation; Translations: [Other disturbances of skin sensation] Onset: 12-25-2010 12-25-2010 Episodic Other non-traumatic joint disorders (4 sources) Pain in left knee; Translations: [PAIN IN LEFT KNEE] Onset: 02-04-2021 Episodic Unclassified (1 source) CONTACT W/AND (SUSP) EXPOS COVID-19; Translations: [CONTACT W/AND (SUSP) EXPOS COVID-19] Onset: 04-03-2021 Results Test Name Value Interpretation Reference Range Facility Basophils Auto (Bld) [#/Vol] on 07-28-2024 Basophils (Bld) [#/Vol] Automated basoph il count 0.0-0.1 [facility] Basophils/100 WBC Auto (Bld) on 07-28-2024 Basophils/100 WBC (Bld) Automated basophil % 0. 2-2.0 [facility] Eosinophils/100 WBC Auto (Bl d)on 07-28-2024 Eosinophils/100 WBC (Bld) Automated eosinophil % 0.9-7.0 [facility] Erythrocyte distribution wid th Auto (RBC) [Ratio]on 07-28-2024 Erythrocyte distribution width (RBC) [Ratio] Erythrocyte distribution width [Ratio] by Automated count 11.0-15.0 [facility] Estimated glomerular filtrat ion rate (GFR) non- Americanon 07-28-2024 GFR/1.73 sq M.predicted among non-blacks MDRD (S/P/Bld) [Vol rate/Area] Estimated glomerular filtration rate (GFR) non- Low >=60 mL/min/1.73 m 2 [facility] Hematocrit Auto (Bld) [Volum e fraction]on 07-28-2024 Hematocrit (Bld) [Volume fraction] Hematocrit [Volume Fraction] of Blood by Automated count Low 36.0-48.0 [facility] Hemoglobin [Mass/volume] in Bloodon 07-28-2024 Hemoglobin (Bld) [Mass/Vol] Hemoglobin [Mass/volume] in Blood Low 12.0-16.0 [facility] Laboratory - Chemistry and C hemistry - challengeon 07-28-2024 Calcium [Mass/Vol] 9.0 mg/dL 8.5-10.1 [facility] Chloride [Moles/Vol] 110 mmol/L High 98-107 [facility] CO2 [Moles/Vol] 26.0 mmol/L 21.0-32.0 [facility] Creatinine [Mass/Vol] 1.05 mg/dL High 0.55-1.02 [facility] GFR/1.73 sq M.predicted MDRD (S/P/Bld) [Vol rate/Area] mL/min/{1.73_m2} >=60 mL/min/1.73 m 2 [facility] Glucose [Mass/Vol] 112 mg/dL High 74-106 [facility] Potassium [Moles/Vol] 5.1 mmol/L 3.5-5.1 [facility] Sodium [Moles/Vol] 144 mmol/L 136-145 [facility] Urea nitrogen [Mass/Vol] 24.0 mg/dL High 7.0-18.0 [facility] Urea nitrogen/Creatinine [Mass ratio] 22.9 mg/mg [facility] Laboratory - Hematology and Cell countson 07-28-2024 Immature granulocytes/100 WBC (Bld) 0.8 % High 0.0-0.5 [facility] Leukocytes [#/volume] correc clifford for nucleated erythrocytes in Blood by Automated counon 07-28-2024 WBC corrected for nucl RBC Auto (Bld) [#/Vol] Leukocytes [#/volume] corrected for nucleated erythrocytes in Blood by Automated coun 4.0-11.0 [facility] Lymphocytes Auto (Bld) [#/Vo l]on 07-28-2024 Lymphocytes (Bld) [#/Vol] Lymphocytes [#/volume] in Blood by Automated count 1.2-3.8 [facility] Lymphocytes/100 WBC Auto (Bl d)on 07-28-2024 Lymphocytes/100 WBC (Bld) Lymphocytes/100 leukocytes in Blood by Automated count 20.5-60.0 [facility] MCH Auto (RBC) [Entitic mass ]on 07-28-2024 MCH (RBC) [Entitic mass] MCH [Entitic mass] by Automated count 26.7-34.0 [facility] MCHC Auto (RBC) [Mass/Vol]on 07-28-2024 MCHC (RBC) [Mass/Vol] MCHC [Mass/volume] by Automated count 29.9-35.2 [facility] MCV Auto (RBC) [Entitic vol] on 07-28-2024 MCV (RBC) [Entitic vol] MCV [Entitic vol ume] by Automated count 81.0-99.0 [facility] Monocytes Auto (Bld) [#/Vol] on 07-28-2024 Monocytes (Bld) [#/Vol] Automated blood monocyte count 0.3-0.8 [facility] Monocytes/100 WBC Auto (Bld) on 07-28-2024 Monocytes/100 WBC (Bld) Automated monocyte % 1. 7-12.0 [facility] Neutrophils Auto (Bld) [#/Vo l]on 07-28-2024 Neutrophils (Bld) [#/Vol] Neutrophils [#/volume] in Blood by Automated count 1.4-6.5 [facility] Neutrophils/100 WBC Auto (Bl d)on 07-28-2024 Neutrophils/100 WBC (Bld) Automated neutrophil % 43.0-75.0 [facility] No Panel Informationon 07-28 Eosinophils # (Auto) 0.1 10 3/uL 0.0-0.7 [facility] Immature Granulocyte # (Auto) 0.06 10 3/uL High 0.00-0.03 [facility] Platelet mean volume Auto (B ld) [Entitic vol]on 07-28-2024 Platelet mean volume (Bld) [Entitic vol] Platelet mean volume [Entitic volume] in Blood by Automated count 9.5-13.5 [facility] Platelets Auto (Bld) [#/Vol] on 07-28-2024 Platelets (Bld) [#/Vol] Platelets [#/vol ume] in Blood by Automated count 150-450 [facility] RBC Auto (Bld) [#/Vol]on RBC (Bld) [#/Vol] Erythrocytes [#/volume] in Blood by Automated count Low 4.20-5.40 [facility] Serum or plasma anion gap de terminationon 07-28-2024 Anion gap [Moles/Vol] Serum or plasma an ion gap determination [facility] Erythrocyte distribution wid th Auto (RBC) [Ratio]on 07-27-2024 Erythrocyte distribution width (RBC) [Ratio] Erythrocyte distribution width [Ratio] by Automated count 11.0-15.0 [facility] Estimated glomerular filtrat ion rate (GFR) non- Americanon 07-27-2024 GFR/1.73 sq M.predicted among non-blacks MDRD (S/P/Bld) [Vol rate/Area] Estimated glomerular filtration rate (GFR) non- Low >=60 mL/min/1.73 m 2 [facility] Hematocrit Auto (Bld) [Volum e fraction]on 07-27-2024 Hematocrit (Bld) [Volume fraction] Hematocrit [Volume Fraction] of Blood by Automated count Low 36.0-48.0 [facility] Hemoglobin [Mass/volume] in Bloodon 07-27-2024 Hemoglobin (Bld) [Mass/Vol] Hemoglobin [Mass/volume] in Blood Low 12.0-16.0 [facility] Laboratory - Chemistry and C hemistry - challengeon 07-27-2024 Calcium [Mass/Vol] 9.1 mg/dL 8.5-10.1 [facility] Chloride [Moles/Vol] 110 mmol/L High 98-107 [facility] CO2 [Moles/Vol] 29.1 mmol/L 21.0-32.0 [facility] Creatinine [Mass/Vol] 1.46 mg/dL High 0.55-1.02 [facility] GFR/1.73 sq M.predicted MDRD (S/P/Bld) [Vol rate/Area] 42 mL/min/{1.73_m2} Low >=60 mL/min/1.73 m 2 [facility] Glucose [Mass/Vol] 114 mg/dL High 74-106 [facility] Potassium [Moles/Vol] 5.6 mmol/L High 3.5-5.1 [facility] Sodium [Moles/Vol] 144 mmol/L 136-145 [facility] Urea nitrogen [Mass/Vol] 46.0 mg/dL High 7.0-18.0 [facility] Urea nitrogen/Creatinine [Mass ratio] 31.5 mg/mg [facility] Leukocytes [#/volume] correc clifford for nucleated erythrocytes in Blood by Automated counon 07-27-2024 WBC corrected for nucl RBC Auto (Bld) [#/Vol] Leukocytes [#/volume] corrected for nucleated erythrocytes in Blood by Automated coun 4.0-11.0 [facility] MCH Auto (RBC) [Entitic mass ]on 07-27-2024 MCH (RBC) [Entitic mass] MCH [Entitic mass] by Automated count 26.7-34.0 [facility] MCHC Auto (RBC) [Mass/Vol]on 07-27-2024 MCHC (RBC) [Mass/Vol] MCHC [Mass/volume] by Automated count 29.9-35.2 [facility] MCV Auto (RBC) [Entitic vol] on 07-27-2024 MCV (RBC) [Entitic vol] MCV [Entitic vol ume] by Automated count 81.0-99.0 [facility] Platelet mean volume Auto (B ld) [Entitic vol]on 07-27-2024 Platelet mean volume (Bld) [Entitic vol] Platelet mean volume [Entitic volume] in Blood by Automated count 9.5-13.5 [facility] Platelets Auto (Bld) [#/Vol] on 07-27-2024 Platelets (Bld) [#/Vol] Platelets [#/vol ume] in Blood by Automated count 150-450 [facility] RBC Auto (Bld) [#/Vol]on RBC (Bld) [#/Vol] Erythrocytes [#/volume] in Blood by Automated count Low 4.20-5.40 [facility] Serum or plasma anion gap de terminationon 07-27-2024 Anion gap [Moles/Vol] Serum or plasma an ion gap determination [facility] Erythrocyte distribution wid th Auto (RBC) [Ratio]on 07-26-2024 Erythrocyte distribution width (RBC) [Ratio] Erythrocyte distribution width [Ratio] by Automated count 11.0-15.0 [facility] Estimated glomerular filtrat ion rate (GFR) non- Americanon 07-26-2024 GFR/1.73 sq M.predicted among non-blacks MDRD (S/P/Bld) [Vol rate/Area] Estimated glomerular filtration rate (GFR) non- Low >=60 mL/min/1.73 m 2 [facility] Hematocrit Auto (Bld) [Volum e fraction]on 07-26-2024 Hematocrit (Bld) [Volume fraction] Hematocrit [Volume Fraction] of Blood by Automated count Low 36.0-48.0 [facility] Hemoglobin [Mass/volume] in Bloodon 07-26-2024 Hemoglobin (Bld) [Mass/Vol] Hemoglobin [Mass/volume] in Blood Low 12.0-16.0 [facility] Laboratory - Chemistry and C hemistry - challengeon 07-26-2024 Potassium [Moles/Vol] 5.3 mmol/L High 3.5-5.1 [facility] Calcium [Mass/Vol] 8.9 mg/dL 8.5-10.1 [facility] Chloride [Moles/Vol] 106 mmol/L 98-107 [facility] CO2 [Moles/Vol] 27.2 mmol/L 21.0-32.0 [facility] Creatinine [Mass/Vol] 3.07 mg/dL High 0.55-1.02 [facility] GFR/1.73 sq M.predicted MDRD (S/P/Bld) [Vol rate/Area] 18 mL/min/{1.73_m2} Low >=60 mL/min/1.73 m 2 [facility] Glucose [Mass/Vol] 113 mg/dL High 74-106 [facility] Sodium [Moles/Vol] 141 mmol/L 136-145 [facility] Urea nitrogen [Mass/Vol] 78.0 mg/dL Critically high 7.0-18.0 [facility] Comment on above: RESULTS CALLED TO CECELIA NELSON RN @BY Maria Victoria Pearl 0624 Urea nitrogen/Creatinine [Mass ratio] 25.4 mg/mg [facility] Leukocytes [#/volume] correc clifford for nucleated erythrocytes in Blood by Automated counon 07-26-2024 WBC corrected for nucl RBC Auto (Bld) [#/Vol] Leukocytes [#/volume] corrected for nucleated erythrocytes in Blood by Automated coun 4.0-11.0 [facility] MCH Auto (RBC) [Entitic mass ]on 07-26-2024 MCH (RBC) [Entitic mass] MCH [Entitic mass] by Automated count 26.7-34.0 [facility] MCHC Auto (RBC) [Mass/Vol]on 07-26-2024 MCHC (RBC) [Mass/Vol] MCHC [Mass/volume] by Automated count 29.9-35.2 [facility] MCV Auto (RBC) [Entitic vol] on 07-26-2024 MCV (RBC) [Entitic vol] MCV [Entitic vol ume] by Automated count 81.0-99.0 [facility] Platelet mean volume Auto (B ld) [Entitic vol]on 07-26-2024 Platelet mean volume (Bld) [Entitic vol] Platelet mean volume [Entitic volume] in Blood by Automated count 9.5-13.5 [facility] Platelets Auto (Bld) [#/Vol] on 07-26-2024 Platelets (Bld) [#/Vol] Platelets [#/vol ume] in Blood by Automated count 150-450 [facility] RBC Auto (Bld) [#/Vol]on RBC (Bld) [#/Vol] Erythrocytes [#/volume] in Blood by Automated count Low 4.20-5.40 [facility] Serum or plasma anion gap de terminationon 07-26-2024 Anion gap [Moles/Vol] Serum or plasma an ion gap determination [facility] Basophils Auto (Bld) [#/Vol] on 07-25-2024 Basophils (Bld) [#/Vol] Automated basoph il count 0.0-0.1 [facility] Basophils/100 WBC Auto (Bld) on 07-25-2024 Basophils/100 WBC (Bld) Automated basophil % 0. 2-2.0 [facility] Eosinophils/100 WBC Auto (Bl d)on 07-25-2024 Eosinophils/100 WBC (Bld) Automated eosinophil % 0.9-7.0 [facility] Erythrocyte distribution wid th Auto (RBC) [Ratio]on 07-25-2024 Erythrocyte distribution width (RBC) [Ratio] Erythrocyte distribution width [Ratio] by Automated count 11.0-15.0 [facility] Estimated glomerular filtrat ion rate (GFR) non- Americanon 07-25-2024 GFR/1.73 sq M.predicted among non-blacks MDRD (S/P/Bld) [Vol rate/Area] Estimated glomerular filtration rate (GFR) non- Low >=60 mL/min/1.73 m 2 [facility] Globulin Calc (S) [Mass/Vol] on 07-25-2024 Globulin (S) [Mass/Vol] Serum globulin measurement by calculation (mass/volume) [facility] Hematocrit Auto (Bld) [Volum e fraction]on 07-25-2024 Hematocrit (Bld) [Volume fraction] Hematocrit [Volume Fraction] of Blood by Automated count Low 36.0-48.0 [facility] Hemoglobin [Mass/volume] in Bloodon 07-25-2024 Hemoglobin (Bld) [Mass/Vol] Hemoglobin [Mass/volume] in Blood Low 12.0-16.0 [facility] Laboratory - Chemistry and C hemistry - challengeon 07-25-2024 Potassium [Moles/Vol] 5.8 mmol/L High 3.5-5.1 [facility] Albumin [Mass/Vol] 3.5 g/dL 3.4-5.0 [facility] ALP [Catalytic activity/Vol] 81 U/L 46-116 [facility] ALT [Catalytic activity/Vol] 15 U/L 14-59 [facility] AST [Catalytic activity/Vol] 18 U/L 15-37 [facility] Bilirubin [Mass/Vol] 0.3 mg/dL 0.2-1.0 [facility] Calcium [Mass/Vol] 9.3 mg/dL 8.5-10.1 [facility] Chloride [Moles/Vol] 100 mmol/L 98-107 [facility] CO2 [Moles/Vol] 28.3 mmol/L 21.0-32.0 [facility] Creatinine [Mass/Vol] 3.88 mg/dL High 0.55-1.02 [facility] GFR/1.73 sq M.predicted MDRD (S/P/Bld) [Vol rate/Area] 14 mL/min/{1.73_m2} Low >=60 mL/min/1.73 m 2 [facility] Glucose [Mass/Vol] 112 mg/dL High 74-106 [facility] Protein [Mass/Vol] 6.8 g/dL 6.4-8.2 [facility] Sodium [Moles/Vol] 136 mmol/L 136-145 [facility] Urea nitrogen [Mass/Vol] 83.0 mg/dL Critically high 7.0-18.0 [facility] Comment on above: RESULTS CALLED TO Justine Gupta RN Urea nitrogen/Creatinine [Mass ratio] 21.4 mg/mg [facility] TSH Qn 1.217 m[IU]/L 0.358-3.740 [facility] Laboratory - Hematology and Cell countson 07-25-2024 Immature granulocytes/100 WBC (Bld) 0.4 % 0.0-0.5 [facility] Leukocytes [#/volume] correc clifford for nucleated erythrocytes in Blood by Automated counon 07-25-2024 WBC corrected for nucl RBC Auto (Bld) [#/Vol] Leukocytes [#/volume] corrected for nucleated erythrocytes in Blood by Automated coun 4.0-11.0 [facility] Lymphocytes Auto (Bld) [#/Vo l]on 07-25-2024 Lymphocytes (Bld) [#/Vol] Lymphocytes [#/volume] in Blood by Automated count 1.2-3.8 [facility] Lymphocytes/100 WBC Auto (Bl d)on 07-25-2024 Lymphocytes/100 WBC (Bld) Lymphocytes/100 leukocytes in Blood by Automated count 20.5-60.0 [facility] MCH Auto (RBC) [Entitic mass ]on 07-25-2024 MCH (RBC) [Entitic mass] MCH [Entitic mass] by Automated count 26.7-34.0 [facility] MCHC Auto (RBC) [Mass/Vol]on 07-25-2024 MCHC (RBC) [Mass/Vol] MCHC [Mass/volume] by Automated count 29.9-35.2 [facility] MCV Auto (RBC) [Entitic vol] on 07-25-2024 MCV (RBC) [Entitic vol] MCV [Entitic vol ume] by Automated count 81.0-99.0 [facility] Monocytes Auto (Bld) [#/Vol] on 07-25-2024 Monocytes (Bld) [#/Vol] Automated blood monocyte count 0.3-0.8 [facility] Monocytes/100 WBC Auto (Bld) on 07-25-2024 Monocytes/100 WBC (Bld) Automated monocyte % 1. 7-12.0 [facility] Neutrophils Auto (Bld) [#/Vo l]on 07-25-2024 Neutrophils (Bld) [#/Vol] Neutrophils [#/volume] in Blood by Automated count High 1.4-6.5 [facility] Neutrophils/100 WBC Auto (Bl d)on 07-25-2024 Neutrophils/100 WBC (Bld) Automated neutrophil % 43.0-75.0 [facility] No Panel Informationon 07-25 Troponin I High Sensitivity 9.5 pg/mL 4.0-51.3 [facility] Comment on above: CUT-OFF POINTS HAVE [...] IN CONJUNCTIONWITH OTHER DIAGNOSTIC AND CLINICAL INFORMATION. Eosinophils # (Auto) 0.4 10 3/uL 0.0-0.7 [facility] Immature Granulocyte # (Auto) 0.04 10 3/uL High 0.00-0.03 [facility] Platelet mean volume Auto (B ld) [Entitic vol]on 07-25-2024 Platelet mean volume (Bld) [Entitic vol] Platelet mean volume [Entitic volume] in Blood by Automated count 9.5-13.5 [facility] Platelets Auto (Bld) [#/Vol] on 07-25-2024 Platelets (Bld) [#/Vol] Platelets [#/vol ume] in Blood by Automated count 150-450 [facility] RBC Auto (Bld) [#/Vol]on RBC (Bld) [#/Vol] Erythrocytes [#/volume] in Blood by Automated count Low 4.20-5.40 [facility] Serum or plasma albumin/glob ulin mass ratioon 07-25-2024 Albumin/Globulin [Mass ratio] Serum or plasma albumin/globulin mass ratio [facility] Serum or plasma anion gap de terminationon 07-25-2024 Anion gap [Moles/Vol] Serum or plasma an ion gap determination [facility] X-ray reportOrdered By: Vivek Wilburn on 06-27-2024 Study report [facility] [address] [place] [address] XRay Report Signed Patient: Catherine Ayers MR# : [id number] : 1945 Acct:[id number] Age/Sex: 79 / F ADM Date: 5 Loc: [facility] Room: Type: [facility] Attending Dr: Paty Booth MD Copies to: Paty Booth MD~ Ordering Provider: Paty Booth MD Date of Service: 06/27/24 XR/XR wrist LT min 3V*: M25.532 - Pain in left wrist 5 views left wrist plain film COMPARISON: None HISTORY: Left first carpometacarpal pain ACUTE FINDINGS: None DEGENERATIVE CHANGE: Moderate first carpometacarpal degeneration with joint space. Marginal spurring. Moderate STT arthritis SOFT TISSUE FINDINGS: Unremarkable JOINT EFFUSION: None POSTOP CHANGES: None BONE MINERALIZATION: Adequate XR/XR wrist LT min 3V* IMPRESSION: Moderate first carpometacarpal degeneration. Osteoarthritis. Impression dictated by: Wale Wilburn M.D.06/27/2024 7:49 PM Dictation Location: RADIO-PC-20 Transcribed By: JACLYN 06/27/241948 Dictated By: Wale Wilburn DO 06/27/241947 Signed By: 06/27/241948 [facility] XR wrist LT min 3V*on 2024 XR wrist LT min 3V* [facility] [address] [place] [address] XRay Report Signed Patient: Catherine Ayers MR#: [id number] : 1945 Acct:[id number] Age/Sex: 79 / F ADM Date: 06/27/24 Loc: [facility] Room: Type: [facility] Attending Dr: Paty Booth MD Copies to: Paty Booth MD Ordering Provider: Paty Booth MD Date of Service: 06/27/24 XR/XR wrist LT min 3V*: M25.532 - Pain in left wrist 5 views left wrist plain film COMPARISON: None HISTORY: Left first carpometacarpal pain ACUTE FINDINGS: None DEGENERATIVE CHANGE: Moderate first carpometacarpal degeneration with joint space. Marginal spurring. Moderate STT arthritis SOFT TISSUE FINDINGS: Unremarkable JOINT EFFUSION: None POSTOP CHANGES: None BONE MINERALIZATION: Adequate XR/XR wrist LT min 3V* IMPRESSION: Moderate first carpometacarpal degeneration. Osteoarthritis. Impression dictated by: Wale Wilburn M.D.06/27/2024 7:49 PM Dictation Location: [employer] Transcribed By: JACLYN 06/27/241948 Dictated By: Wale Wilburn DO 06/27/241947 Signed By: 06/27/241948 Normal [facility] Basophils Auto (Bld) [#/Vol] on 03-01-2024 Basophils (Bld) [#/Vol] Automated basoph il count 0.0-0.1 [facility] Basophils/100 WBC Auto (Bld) on 03-01-2024 Basophils/100 WBC (Bld) Automated basophil % 0. 2-2.0 [facility] Eosinophils/100 WBC Auto (Bl d)on 03-01-2024 Eosinophils/100 WBC (Bld) Automated eosinophil % 0.9-7.0 [facility] Erythrocyte distribution wid th Auto (RBC) [Ratio]on 03-01-2024 Erythrocyte distribution width (RBC) [Ratio] Erythrocyte distribution width [Ratio] by Automated count 11.0-15.0 [facility] Estimated glomerular filtrat ion rate (GFR) non- Americanon 03-01-2024 GFR/1.73 sq M.predicted among non-blacks MDRD (S/P/Bld) [Vol rate/Area] Estimated glomerular filtration rate (GFR) non- Low >=60 mL/min/1.73 m 2 [facility] Globulin Calc (S) [Mass/Vol] on 03-01-2024 Globulin (S) [Mass/Vol] Serum globulin measurement by calculation (mass/volume) [facility] Hematocrit Auto (Bld) [Volum e fraction]on 03-01-2024 Hematocrit (Bld) [Volume fraction] Hematocrit [Volume Fraction] of Blood by Automated count Low 36.0-48.0 [facility] Hemoglobin [Mass/volume] in Bloodon 03-01-2024 Hemoglobin (Bld) [Mass/Vol] Hemoglobin [Mass/volume] in Blood Low 12.0-16.0 [facility] Iron binding capacity [Mass/ volume] in Serum or Plasmaon 03-01-2024 Iron binding capacity [Mass/Vol] Iron binding capacity [Mass/volume] in Serum or Plasma 250.0-450.0 [facility] Iron saturation [Mass Fracti on] in Serum or Plasmaon 03-01-2024 Iron saturation [Mass fraction] Iron saturation [Mass Fraction] in Serum or Plasma [facility] Laboratory - Chemistry and C hemistry - challengeon 03-01-2024 Albumin [Mass/Vol] 3.4 g/dL 3.4-5.0 [facility] ALP [Catalytic activity/Vol] 72 U/L 46-116 [facility] ALT [Catalytic activity/Vol] 28 U/L 14-59 [facility] AST [Catalytic activity/Vol] 24 U/L 15-37 [facility] Bilirubin [Mass/Vol] 0.4 mg/dL 0.2-1.0 [facility] Calcium [Mass/Vol] 8.8 mg/dL 8.5-10.1 [facility] Chloride [Moles/Vol] 107 mmol/L 98-107 [facility] CO2 [Moles/Vol] 30.8 mmol/L 21.0-32.0 [facility] Cobalamin (Vitamin B12) [Mass/Vol] 1568 pg/mL Abnormal [id number] [facility] Comment on above: Performed at: - [address] [id number] Director: Larry Nicolas PhD, Phone: [phone] Creatinine [Mass/Vol] 1.35 mg/dL High 0.55-1.02 [facility] Ferritin [Mass/Vol] 79.0 ng/mL 8.0-252.0 [place] [facility] GFR/1.73 sq M.predicted MDRD (S/P/Bld) [Vol rate/Area] 46 mL/min/{1.73_m2} Low >=60 mL/min/1.73 m 2 [facility] Glucose [Mass/Vol] 109 mg/dL High 74-106 [facility] Iron [Mass/Vol] 86.0 ug/dL 50.0-170.0 [facility] Potassium [Moles/Vol] 4.6 mmol/L 3.5-5.1 [facility] Protein [Mass/Vol] 6.6 g/dL 6.4-8.2 [facility] Sodium [Moles/Vol] 145 mmol/L 136-145 [facility] TSH Qn 1.743 m[IU]/L 0.358-3.740 [facility] Urea nitrogen [Mass/Vol] 21.0 mg/dL High 7.0-18.0 [facility] Urea nitrogen/Creatinine [Mass ratio] 15.6 mg/mg [facility] Laboratory - Hematology and Cell countson 03-01-2024 Immature granulocytes/100 WBC (Bld) 0.3 % 0.0-0.5 [facility] Leukocytes [#/volume] correc clifford for nucleated erythrocytes in Blood by Automated counon 03-01-2024 WBC corrected for nucl RBC Auto (Bld) [#/Vol] Leukocytes [#/volume] corrected for nucleated erythrocytes in Blood by Automated coun 4.0-11.0 [facility] Lymphocytes Auto (Bld) [#/Vo l]on 03-01-2024 Lymphocytes (Bld) [#/Vol] Lymphocytes [#/volume] in Blood by Automated count 1.2-3.8 [facility] Lymphocytes/100 WBC Auto (Bl d)on 03-01-2024 Lymphocytes/100 WBC (Bld) Lymphocytes/100 leukocytes in Blood by Automated count 20.5-60.0 [facility] MCH Auto (RBC) [Entitic mass ]on 03-01-2024 MCH (RBC) [Entitic mass] MCH [Entitic mass] by Automated count 26.7-34.0 [facility] MCHC Auto (RBC) [Mass/Vol]on 03-01-2024 MCHC (RBC) [Mass/Vol] MCHC [Mass/volume] by Automated count 29.9-35.2 [facility] MCV Auto (RBC) [Entitic vol] on 03-01-2024 MCV (RBC) [Entitic vol] MCV [Entitic vol ume] by Automated count 81.0-99.0 [facility] Monocytes Auto (Bld) [#/Vol] on 03-01-2024 Monocytes (Bld) [#/Vol] Automated blood monocyte count 0.3-0.8 [facility] Monocytes/100 WBC Auto (Bld) on 03-01-2024 Monocytes/100 WBC (Bld) Automated monocyte % 1. 7-12.0 [facility] Neutrophils Auto (Bld) [#/Vo l]on 03-01-2024 Neutrophils (Bld) [#/Vol] Neutrophils [#/volume] in Blood by Automated count 1.4-6.5 [facility] Neutrophils/100 WBC Auto (Bl d)on 03-01-2024 Neutrophils/100 WBC (Bld) Automated neutrophil % 43.0-75.0 [facility] No Panel Informationon 03-01 25-Hydroxy Vitamin D Total 57.6 ng/mL [facility] Comment on above: <20 ng/mL Vit D defi cient20-<30 ng/mL Vit D [id number] ng/mL Vit D sufficient>100 ng/mL Potential Toxicity Eosinophils # (Auto) 0.3 10 3/uL 0.0-0.7 [facility] Immature Granulocyte # (Auto) 0.02 10 3/uL 0.00-0.03 [facility] Platelet mean volume Auto (B ld) [Entitic vol]on 03-01-2024 Platelet mean volume (Bld) [Entitic vol] Platelet mean volume [Entitic volume] in Blood by Automated count 9.5-13.5 [facility] Platelets Auto (Bld) [#/Vol] on 03-01-2024 Platelets (Bld) [#/Vol] Platelets [#/vol ume] in Blood by Automated count 150-450 [facility] RBC Auto (Bld) [#/Vol]on RBC (Bld) [#/Vol] Erythrocytes [#/volume] in Blood by Automated count Low 4.20-5.40 [facility] Serum or plasma albumin/glob ulin mass ratioon 03-01-2024 Albumin/Globulin [Mass ratio] Serum or plasma albumin/globulin mass ratio [facility] Serum or plasma anion gap de terminationon 03-01-2024 Anion gap [Moles/Vol] Serum or plasma an ion gap determination [facility] Albumin [Mass/volume] in Ser um or Plasmaon 06-15-2023 Albumin [Mass/Vol] 3.7 g/dL 2.9-4.4 [facility] Basophils Auto (Bld) [#/Vol] on 06-15-2023 Basophils (Bld) [#/Vol] 0.1 10 3/uL 0.0-0.1 [facility] Basophils/100 WBC Auto (Bld) on 06-15-2023 Basophils/100 WBC (Bld) 0.7 % 0.2-2.0 [facility] Eosinophils/100 WBC Auto (Bl d)on 06-15-2023 Eosinophils/100 WBC (Bld) 2.3 % 0.9-7.0 [facility] Erythrocyte distribution wid th Auto (RBC) [Ratio]on 06-15-2023 Erythrocyte distribution width (RBC) [Ratio] 13.1 % 11.0-15.0 [facility] Estimated glomerular filtrat ion rate (GFR) non- Americanon 06-15-2023 GFR/1.73 sq M.predicted among non-blacks MDRD (S/P/Bld) [Vol rate/Area] 40 mL/min/{1.73_m2} >=60 [facility] Globulin Calc (S) [Mass/Vol] on 06-15-2023 Globulin (S) [Mass/Vol] 3.7 g/dL [facility] Hematocrit Auto (Bld) [Volum e fraction]on 06-15-2023 Hematocrit (Bld) [Volume fraction] 39.7 % 36.0-48.0 [facility] Hemoglobin [Mass/volume] in Bloodon 06-15-2023 Hemoglobin (Bld) [Mass/Vol] 12.1 g/dL 12.0-16.0 [facility] IgA [Mass/volume] in Serum o r Plasmaon 06-15-2023 IgA [Mass/Vol] 195 mg/dL 64-422 [facility] IgG [Mass/volume] in Serum o r Plasmaon 06-15-2023 IgG [Mass/Vol] 865 mg/dL 586-1602 [facility] IgM [Mass/volume] in Serum o r Plasmaon 06-15-2023 IgM [Mass/Vol] 54 mg/dL 26-217 [facility] Iron binding capacity [Mass/ volume] in Serum or Plasmaon 06-15-2023 Iron binding capacity [Mass/Vol] 330.0 ug/dL 250.0-450.0 [facility] Iron saturation [Mass Fracti on] in Serum or Plasmaon 06-15-2023 Iron saturation [Mass fraction] 29.7 % [facility] Laboratory - Chemistry and C hemistry - challengeon 06-15-2023 ALP [Catalytic activity/Vol] 85 U/L 46-116 [facility] ALT [Catalytic activity/Vol] 17 U/L 14-59 [facility] AST [Catalytic activity/Vol] 20 U/L 15-37 [facility] Bilirubin [Mass/Vol] 0.4 mg/dL 0.2-1.0 [facility] Calcium [Mass/Vol] 10.0 mg/dL 8.5-10.1 [facility] Chloride [Moles/Vol] 101 mmol/L 98-107 [facility] CO2 [Moles/Vol] 29.7 mmol/L 21.0-32.0 [facility] Creatinine [Mass/Vol] 1.29 mg/dL 0.55-1.02 [facility] Ferritin [Mass/Vol] 168.0 ng/mL 8.0-252.0 [facility] GFR/1.73 sq M.predicted MDRD (S/P/Bld) [Vol rate/Area] 48 mL/min/{1.73_m2} >=60 [facility] Glucose [Mass/Vol] 174 mg/dL 74-106 [facility] Iron [Mass/Vol] 98.0 ug/dL 50.0-170.0 [facility] LDH [Catalytic activity/Vol] 202 U/L 81-234 [facility] Potassium [Moles/Vol] 4.8 mmol/L 3.5-5.1 [facility] Protein [Mass/Vol] 7.4 g/dL 6.4-8.2 [facility] Sodium [Moles/Vol] 139 mmol/L 136-145 [facility] Urea nitrogen [Mass/Vol] 27.0 mg/dL 7.0-18.0 [facility] Urea nitrogen/Creatinine [Mass ratio] 20.9 mg/mg [facility] Laboratory - Hematology and Cell countson 06-15-2023 ESR (Bld) [Velocity] 52 mm/h <=30 [facility] Immature granulocytes/100 WBC (Bld) 0.4 % 0.0-0.5 [facility] Leukocytes [#/volume] correc clifford for nucleated erythrocytes in Blood by Automated counon 06-15-2023 WBC corrected for nucl RBC Auto (Bld) [#/Vol] 6.9 10 3/uL 4.0-11.0 [facility] Lymphocytes Auto (Bld) [#/Vo l]on 06-15-2023 Lymphocytes (Bld) [#/Vol] 1.7 10 3/uL 1.2-3.8 [facility] Lymphocytes/100 WBC Auto (Bl d)on 06-15-2023 Lymphocytes/100 WBC (Bld) 24.7 % 20.5-60.0 [facility] MCH Auto (RBC) [Entitic mass ]on 06-15-2023 MCH (RBC) [Entitic mass] 29.6 pg 26.7-34.0 [facility] MCHC Auto (RBC) [Mass/Vol]on 06-15-2023 MCHC (RBC) [Mass/Vol] 30.5 g/dL 29.9-35.2 [facility] MCV Auto (RBC) [Entitic vol] on 06-15-2023 MCV (RBC) [Entitic vol] 97.1 fL 81.0-99.0 [facility] Monocytes Auto (Bld) [#/Vol] on 06-15-2023 Monocytes (Bld) [#/Vol] 0.4 10 3/uL 0.3-0.8 [facility] Monocytes/100 WBC Auto (Bld) on 06-15-2023 Monocytes/100 WBC (Bld) 6.0 % 1.7-12.0 [facility] Neutrophils Auto (Bld) [#/Vo l]on 06-15-2023 Neutrophils (Bld) [#/Vol] 4.5 10 3/uL 1.4-6.5 [facility] Neutrophils/100 WBC Auto (Bl d)on 06-15-2023 Neutrophils/100 WBC (Bld) 65.9 % 43.0-75.0 [facility] No Panel Informationon 06-14 C-Reactive Protein, Quantitative <0.50 mg/dL <=0.50 [facility] Eosinophils # (Auto) 0.2 10 3/uL 0.0-0.7 [facility] Immature Granulocyte # (Auto) 0.03 10 3/uL 0.00-0.03 [facility] Protein Electrophoresis M-Jones Not Observed g/dL Not Observed [facility] Protein Electrophoresis Note Comment . [facility] Comment on above: Protein electrophore sis scan will follow via computer,mail, or cattle farmer delivery.Performed at: [facility] [place] [id number] Director: Larry Nicolas PhD, Phone: [phone] Platelet mean volume Auto (B ld) [Entitic vol]on 06-15-2023 Platelet mean volume (Bld) [Entitic vol] 10.8 fL 9.5-13.5 [facility] Platelets Auto (Bld) [#/Vol] on 06-15-2023 Platelets (Bld) [#/Vol] 259 10 3/uL 150-450 [facility] Protein [Mass/volume] in Ser um or Plasmaon 06-15-2023 Protein [Mass/Vol] 6.9 g/dL 6.0-8.5 [facility] RBC Auto (Bld) [#/Vol]on RBC (Bld) [#/Vol] 4.09 10 6/uL 4.20-5.40 [facility] Reticulocytes/100 RBC Auto ( Bld)on 06-15-2023 Reticulocytes/100 RBC (Bld) 1.56 % 0.60-3.10 [facility] Serum globulin measurement ( mass/volume)on 06-15-2023 Globulin (S) [Mass/Vol] 3.2 g/dL 2.2-3.9 [facility] Serum or plasma albumin/glob ulin mass ratioon 06-15-2023 Albumin/Globulin [Mass ratio] 1.0 {ratio} [facility] Albumin/Globulin [Mass ratio] 1.2 {ratio} 0.7-1.7 [facility] Serum or plasma alpha 1 glob ulin measurement by electrophoresis (mass/volume)on 06-15-2023 Alpha 1 globulin Elph [Mass/Vol] 0.3 g/dL 0.0-0.4 [facility] Serum or plasma alpha 2 glob ulin measurement by electrophoresis (mass/volume)on 06-15-2023 Alpha 2 globulin Elph [Mass/Vol] 1.0 g/dL 0.4-1.0 [facility] Serum or plasma anion gap de terminationon 06-15-2023 Anion gap [Moles/Vol] 13.1 [facility] Serum or plasma beta globuli n measurement by electrophoresis (mass/volume)on 06-15-2023 Beta globulin Elph [Mass/Vol] 1.2 g/dL 0.7-1.3 [facility] Serum or plasma gamma globul in measurement by electrophoresis (mass/volume)on 06-15-2023 Gamma globulin Elph [Mass/Vol] 0.7 g/dL 0.4-1.8 [facility] Serum or plasma immunoelectr ophoresis interpretationon 06-15-2023 Interpretation IEP [Interp] Comment . [facility] Comment on above: No monoclonality det ected. Basophils Auto (Bld) [#/Vol] on 05-29-2023 Basophils (Bld) [#/Vol] 0.2 10 3/uL 0.0-0.1 [facility] Basophils/100 WBC Auto (Bld) on 05-29-2023 Basophils/100 WBC (Bld) 0.7 % 0.2-2.0 [facility] Eosinophils/100 WBC Auto (Bl d)on 05-29-2023 Eosinophils/100 WBC (Bld) 0.5 % 0.9-7.0 [facility] Erythrocyte distribution wid th Auto (RBC) [Ratio]on 05-29-2023 Erythrocyte distribution width (RBC) [Ratio] 12.7 % 11.0-15.0 [facility] Estimated glomerular filtrat ion rate (GFR) non- Americanon 05-29-2023 GFR/1.73 sq M.predicted among non-blacks MDRD (S/P/Bld) [Vol rate/Area] 58 mL/min/{1.73_m2} >=60 [facility] Globulin Calc (S) [Mass/Vol] on 05-29-2023 Globulin (S) [Mass/Vol] 4.3 g/dL [facility] Hematocrit Auto (Bld) [Volum e fraction]on 05-29-2023 Hematocrit (Bld) [Volume fraction] 31.1 % 36.0-48.0 [facility] Hemoglobin [Mass/volume] in Bloodon 05-29-2023 Hemoglobin (Bld) [Mass/Vol] 9.9 g/dL 12.0-16.0 [facility] Laboratory - Chemistry and C hemistry - challengeon 05-29-2023 Albumin [Mass/Vol] 2.3 g/dL 3.4-5.0 [facility] ALP [Catalytic activity/Vol] 94 U/L 46-116 [facility] ALT [Catalytic activity/Vol] 46 U/L 14-59 [facility] AST [Catalytic activity/Vol] 37 U/L 15-37 [facility] Bilirubin [Mass/Vol] 0.3 mg/dL 0.2-1.0 [facility] Calcium [Mass/Vol] 9.3 mg/dL 8.5-10.1 [facility] Chloride [Moles/Vol] 108 mmol/L 98-107 [facility] CO2 [Moles/Vol] 26.5 mmol/L 21.0-32.0 [facility] Creatinine [Mass/Vol] 0.93 mg/dL 0.55-1.02 [facility] GFR/1.73 sq M.predicted MDRD (S/P/Bld) [Vol rate/Area] mL/min/{1.73_m2} >=60 [facility] Glucose [Mass/Vol] 109 mg/dL 74-106 [facility] Potassium [Moles/Vol] 4.1 mmol/L 3.5-5.1 [facility] Protein [Mass/Vol] 6.6 g/dL 6.4-8.2 [facility] Sodium [Moles/Vol] 144 mmol/L 136-145 [facility] Urea nitrogen [Mass/Vol] 13.0 mg/dL 7.0-18.0 [facility] Urea nitrogen/Creatinine [Mass ratio] 14.0 mg/mg [facility] Laboratory - Hematology and Cell countson 05-29-2023 Immature granulocytes/100 WBC (Bld) 11.2 % 0.0-0.5 [facility] Leukocytes [#/volume] correc clifford for nucleated erythrocytes in Blood by Automated counon 05-29-2023 WBC corrected for nucl RBC Auto (Bld) [#/Vol] 20.0 10 3/uL 4.0-11.0 [facility] Lymphocytes Auto (Bld) [#/Vo l]on 05-29-2023 Lymphocytes (Bld) [#/Vol] 2.7 10 3/uL 1.2-3.8 [facility] Lymphocytes/100 WBC Auto (Bl d)on 05-29-2023 Lymphocytes/100 WBC (Bld) 13.2 % 20.5-60.0 [facility] MCH Auto (RBC) [Entitic mass ]on 05-29-2023 MCH (RBC) [Entitic mass] 29.8 pg 26.7-34.0 [facility] MCHC Auto (RBC) [Mass/Vol]on 05-29-2023 MCHC (RBC) [Mass/Vol] 31.8 g/dL 29.9-35.2 [facility] MCV Auto (RBC) [Entitic vol] on 05-29-2023 MCV (RBC) [Entitic vol] 93.7 fL 81.0-99.0 [facility] Monocytes Auto (Bld) [#/Vol] on 05-29-2023 Monocytes (Bld) [#/Vol] 1.1 10 3/uL 0.3-0.8 [facility] Monocytes/100 WBC Auto (Bld) on 05-29-2023 Monocytes/100 WBC (Bld) 5.3 % 1.7-12.0 [facility] Neutrophils Auto (Bld) [#/Vo l]on 05-29-2023 Neutrophils (Bld) [#/Vol] 13.8 10 3/uL 1.4-6.5 [facility] Neutrophils/100 WBC Auto (Bl d)on 05-29-2023 Neutrophils/100 WBC (Bld) 69.1 % 43.0-75.0 [facility] No Panel Informationon 05-28 Eosinophils # (Auto) 0.1 10 3/uL 0.0-0.7 [facility] Immature Granulocyte # (Auto) 2.24 10 3/uL 0.00-0.03 [facility] Platelet mean volume Auto (B ld) [Entitic vol]on 05-29-2023 Platelet mean volume (Bld) [Entitic vol] 9.8 fL 9.5-13.5 [facility] Platelets Auto (Bld) [#/Vol] on 05-29-2023 Platelets (Bld) [#/Vol] 281 10 3/uL 150-450 [facility] RBC Auto (Bld) [#/Vol]on RBC (Bld) [#/Vol] 3.32 10 6/uL 4.20-5.40 [facility] Serum or plasma albumin/glob ulin mass ratioon 05-29-2023 Albumin/Globulin [Mass ratio] 0.5 {ratio} [facility] Serum or plasma anion gap de terminationon 05-29-2023 Anion gap [Moles/Vol] 13.6 mmol/L Fi [facility] Serum procalcitonin measurem enton 05-29-2023 Procalcitonin [Mass/Vol] ng/mL 0.00-0.50 [facility] Basophils Auto (Bld) [#/Vol] on 05-28-2023 Basophils (Bld) [#/Vol] 0.1 10 3/uL 0.0-0.1 [facility] Basophils/100 WBC Auto (Bld) on 05-28-2023 Basophils/100 WBC (Bld) 0.6 % 0.2-2.0 [facility] Eosinophils/100 WBC Auto (Bl d)on 05-28-2023 Eosinophils/100 WBC (Bld) 0.4 % 0.9-7.0 [facility] Erythrocyte distribution wid th Auto (RBC) [Ratio]on 05-28-2023 Erythrocyte distribution width (RBC) [Ratio] 12.7 % 11.0-15.0 [facility] Estimated glomerular filtrat ion rate (GFR) non- Americanon 05-28-2023 GFR/1.73 sq M.predicted among non-blacks MDRD (S/P/Bld) [Vol rate/Area] 47 mL/min/{1.73_m2} >=60 [facility] Globulin Calc (S) [Mass/Vol] on 05-28-2023 Globulin (S) [Mass/Vol] 3.9 g/dL [facility] Hematocrit Auto (Bld) [Volum e fraction]on 05-28-2023 Hematocrit (Bld) [Volume fraction] 29.0 % 36.0-48.0 [facility] Hemoglobin [Mass/volume] in Bloodon 05-28-2023 Hemoglobin (Bld) [Mass/Vol] 9.1 g/dL 12.0-16.0 [facility] Laboratory - Chemistry and C hemistry - challengeon 05-28-2023 Albumin [Mass/Vol] 2.0 g/dL 3.4-5.0 [facility] ALP [Catalytic activity/Vol] 93 U/L 46-116 [facility] ALT [Catalytic activity/Vol] 46 U/L 14-59 [facility] AST [Catalytic activity/Vol] 49 U/L 15-37 [facility] Bilirubin [Mass/Vol] 0.3 mg/dL 0.2-1.0 [facility] Calcium [Mass/Vol] 8.7 mg/dL 8.5-10.1 [facility] Chloride [Moles/Vol] 111 mmol/L 98-107 [facility] CO2 [Moles/Vol] 25.0 mmol/L 21.0-32.0 [facility] Creatinine [Mass/Vol] 1.12 mg/dL 0.55-1.02 [facility] GFR/1.73 sq M.predicted MDRD (S/P/Bld) [Vol rate/Area] 57 mL/min/{1.73_m2} >=60 [facility] Glucose [Mass/Vol] 103 mg/dL 74-106 [facility] Potassium [Moles/Vol] 4.1 mmol/L 3.5-5.1 [facility] Protein [Mass/Vol] 5.9 g/dL 6.4-8.2 [facility] Sodium [Moles/Vol] 144 mmol/L 136-145 [facility] Urea nitrogen [Mass/Vol] 22.0 mg/dL 7.0-18.0 [facility] Urea nitrogen/Creatinine [Mass ratio] 19.6 mg/mg [facility] Laboratory - Hematology and Cell countson 05-28-2023 Immature granulocytes/100 WBC (Bld) 10.3 % 0.0-0.5 [facility] Leukocytes [#/volume] correc clifford for nucleated erythrocytes in Blood by Automated counon 05-28-2023 WBC corrected for nucl RBC Auto (Bld) [#/Vol] 17.1 10 3/uL 4.0-11.0 [facility] Lymphocytes Auto (Bld) [#/Vo l]on 05-28-2023 Lymphocytes (Bld) [#/Vol] 2.3 10 3/uL 1.2-3.8 [facility] Lymphocytes/100 WBC Auto (Bl d)on 05-28-2023 Lymphocytes/100 WBC (Bld) 13.5 % 20.5-60.0 [facility] MCH Auto (RBC) [Entitic mass ]on 05-28-2023 MCH (RBC) [Entitic mass] 30.1 pg 26.7-34.0 [facility] MCHC Auto (RBC) [Mass/Vol]on 05-28-2023 MCHC (RBC) [Mass/Vol] 31.4 g/dL 29.9-35.2 [facility] MCV Auto (RBC) [Entitic vol] on 05-28-2023 MCV (RBC) [Entitic vol] 96.0 fL 81.0-99.0 [facility] Monocytes Auto (Bld) [#/Vol] on 05-28-2023 Monocytes (Bld) [#/Vol] 1.0 10 3/uL 0.3-0.8 [facility] Monocytes/100 WBC Auto (Bld) on 05-28-2023 Monocytes/100 WBC (Bld) 6.0 % 1.7-12.0 [facility] Neutrophils Auto (Bld) [#/Vo l]on 05-28-2023 Neutrophils (Bld) [#/Vol] 11.9 10 3/uL 1.4-6.5 [facility] Neutrophils/100 WBC Auto (Bl d)on 05-28-2023 Neutrophils/100 WBC (Bld) 69.2 % 43.0-75.0 [facility] No Panel Informationon 05-27 Eosinophils # (Auto) 0.1 10 3/uL 0.0-0.7 [facility] Immature Granulocyte # (Auto) 1.76 10 3/uL 0.00-0.03 [facility] Platelet mean volume Auto (B ld) [Entitic vol]on 05-28-2023 Platelet mean volume (Bld) [Entitic vol] 9.6 fL 9.5-13.5 [facility] Platelets Auto (Bld) [#/Vol] on 05-28-2023 Platelets (Bld) [#/Vol] 242 10 3/uL 150-450 [facility] RBC Auto (Bld) [#/Vol]on RBC (Bld) [#/Vol] 3.02 10 6/uL 4.20-5.40 [facility] Serum or plasma albumin/glob ulin mass ratioon 05-28-2023 Albumin/Globulin [Mass ratio] 0.5 {ratio} [facility] Serum or plasma anion gap de terminationon 05-28-2023 Anion gap [Moles/Vol] 12.1 [facility] Serum procalcitonin measurem enton 05-28-2023 Procalcitonin [Mass/Vol] 0.06 ng/mL 0.00-0.50 [facility] Basophils/100 WBC Manual cnt (Bld)on 05-27-2023 Basophils/100 WBC (Bld) 0.0 % 0.2-2.0 [facility] Eosinophils/100 WBC Manual c nt (Bld)on 05-27-2023 Eosinophils/100 WBC (Bld) 0.0 % 0.9-7.0 [facility] Erythrocyte distribution wid th Auto (RBC) [Ratio]on 05-27-2023 Erythrocyte distribution width (RBC) [Ratio] 12.5 % 11.0-15.0 [facility] Estimated glomerular filtrat ion rate (GFR) non- Americanon 05-27-2023 GFR/1.73 sq M.predicted among non-blacks MDRD (S/P/Bld) [Vol rate/Area] 29 mL/min/{1.73_m2} >=60 [facility] Globulin Calc (S) [Mass/Vol] on 05-27-2023 Globulin (S) [Mass/Vol] 4.6 g/dL [facility] Hematocrit Auto (Bld) [Volum e fraction]on 05-27-2023 Hematocrit (Bld) [Volume fraction] 29.7 % 36.0-48.0 [facility] Hemoglobin [Mass/volume] in Bloodon 05-27-2023 Hemoglobin (Bld) [Mass/Vol] 9.4 g/dL 12.0-16.0 [facility] Laboratory - Chemistry and C hemistry - challengeon 05-27-2023 Lactate [Moles/Vol] 0.9 mmol/L 0.4-2.0 [facility] Albumin [Mass/Vol] 2.3 g/dL 3.4-5.0 [facility] ALP [Catalytic activity/Vol] 119 U/L 46-116 [facility] ALT [Catalytic activity/Vol] 43 U/L 14-59 [facility] AST [Catalytic activity/Vol] 57 U/L 15-37 [facility] Bilirubin [Mass/Vol] 0.2 mg/dL 0.2-1.0 [facility] Calcium [Mass/Vol] 9.1 mg/dL 8.5-10.1 [facility] Chloride [Moles/Vol] 111 mmol/L 98-107 [facility] CO2 [Moles/Vol] 18.8 mmol/L 21.0-32.0 [facility] Creatinine [Mass/Vol] 1.70 mg/dL 0.55-1.02 [facility] GFR/1.73 sq M.predicted MDRD (S/P/Bld) [Vol rate/Area] 35 mL/min/{1.73_m2} >=60 [facility] Glucose [Mass/Vol] 155 mg/dL 74-106 [facility] Potassium [Moles/Vol] 4.8 mmol/L 3.5-5.1 [facility] Protein [Mass/Vol] 6.9 g/dL 6.4-8.2 [facility] Sodium [Moles/Vol] 143 mmol/L 136-145 [facility] Urea nitrogen [Mass/Vol] 34.0 mg/dL 7.0-18.0 [facility] Urea nitrogen/Creatinine [Mass ratio] 20.0 mg/mg [facility] Laboratory - Hematology and Cell countson 05-27-2023 Band form neutrophils/100 WBC (Bld) 6.0 % 0-5 [facility] Lymphocytes/100 WBC (Bld) 12.0 % 20.5-60.0 [facility] Monocytes/100 WBC (Bld) 4.0 % 1.7-12.0 [facility] Laboratory - Microbiology an d Antimicrobial susceptibilityOrdered By: Oumar Gunter on 05-27-2023 Bacteria identified Respiratory culture Nom (Sput) [facility] Microscopic observation Gram stain Nom (Unsp spec) [facility] Leukocytes [#/volume] correc clifford for nucleated erythrocytes in Blood by Automated counon 05-27-2023 WBC corrected for nucl RBC Auto (Bld) [#/Vol] 26.6 10 3/uL 4.0-11.0 [facility] MCH Auto (RBC) [Entitic mass ]on 05-27-2023 MCH (RBC) [Entitic mass] 30.0 pg 26.7-34.0 [facility] MCHC Auto (RBC) [Mass/Vol]on 05-27-2023 MCHC (RBC) [Mass/Vol] 31.6 g/dL 29.9-35.2 Fir [facility] MCV Auto (RBC) [Entitic vol] on 05-27-2023 MCV (RBC) [Entitic vol] 94.9 fL 81.0-99.0 F [facility] Metamyelocytes/100 WBC Manua l cnt (Bld)on 05-27-2023 Metamyelocytes/100 WBC (Bld) 2.0 % [facility] [facility] No Panel Informationon Absolute Basophils (Manual) 0.00 10 3/uL 0.00-0.10 [facility] Band Neutrophils # (Manual) 1.6 10 3/uL 0.0-0.3 [facility] Eosinophils # (Manual) 0.00 10 3/uL 0.00-0.70 [facility] Lymphocytes # (Manual) 3.19 10 3/uL 1.20-3.80 [facility] Metamyelocytes # (Manual) 0.53 [facility] Monocytes # (Manual) 1.06 10 3/uL 0.30-0.80 Fi [facility] Segmented Neutrophils # (Manual) 20.21 10 3/uL 1.4-6.5 [facility] Platelet mean volume Auto (B ld) [Entitic vol]on 05-27-2023 Platelet mean volume (Bld) [Entitic vol] 9.8 fL 9.5-13.5 [facility] Platelets Auto (Bld) [#/Vol] on 05-27-2023 Platelets (Bld) [#/Vol] 265 10 3/uL 150-450 [facility] RBC Auto (Bld) [#/Vol]on RBC (Bld) [#/Vol] 3.13 10 6/uL 4.20-5.40 [facility] Segmented neutrophils/100 WB C Manual cnt (Bld)on 05-27-2023 Segmented neutrophils/100 WBC (Bld) 76.0 % [facility] Serum or plasma albumin/glob ulin mass ratioon 05-27-2023 Albumin/Globulin [Mass ratio] 0.5 {ratio} [facility] Serum or plasma anion gap de terminationon 05-27-2023 Anion gap [Moles/Vol] 18.0 mmol/L [facility] Serum procalcitonin measurem enton 05-27-2023 Procalcitonin [Mass/Vol] 0.13 ng/mL 0.00-0.50 [facility] Basophils Auto (Bld) [#/Vol] on 05-26-2023 Basophils (Bld) [#/Vol] 0.1 10 3/uL 0.0-0.1 [facility] Basophils/100 WBC Auto (Bld) on 05-26-2023 Basophils/100 WBC (Bld) 0.3 % 0.2-2.0 F [facility] Eosinophils/100 WBC Auto (Bl d)on 05-26-2023 Eosinophils/100 WBC (Bld) 0.2 % 0.9-7.0 [facility] Erythrocyte distribution wid th Auto (RBC) [Ratio]on 05-26-2023 Erythrocyte distribution width (RBC) [Ratio] 12.5 % 11.0-15.0 [facility] Estimated glomerular filtrat ion rate (GFR) non- Americanon 05-26-2023 GFR/1.73 sq M.predicted among non-blacks MDRD (S/P/Bld) [Vol rate/Area] 14 mL/min/{1.73_m2} >=60 [facility] Globulin Calc (S) [Mass/Vol] on 05-26-2023 Globulin (S) [Mass/Vol] 4.4 g/dL F [facility] Hematocrit Auto (Bld) [Volum e fraction]on 05-26-2023 Hematocrit (Bld) [Volume fraction] 31.7 % 36.0-48.0 [facility] Hemoglobin [Mass/volume] in Bloodon 05-26-2023 Hemoglobin (Bld) [Mass/Vol] 9.7 g/dL 12.0-16.0 [facility] Laboratory - Chemistry and C hemistry - challengeon 05-26-2023 Albumin [Mass/Vol] 2.3 g/dL 3.4-5.0 [facility] ALP [Catalytic activity/Vol] 128 U/L 46-116 [facility] ALT [Catalytic activity/Vol] 19 U/L 14-59 [facility] AST [Catalytic activity/Vol] 18 U/L 15-37 [facility] Bilirubin [Mass/Vol] 0.4 mg/dL 0.2-1.0 [facility] Calcium [Mass/Vol] 8.2 mg/dL 8.5-10.1 [facility] Chloride [Moles/Vol] 102 mmol/L 98-107 [facility] CO2 [Moles/Vol] 23.6 mmol/L 21.0-32.0 [facility] Creatinine [Mass/Vol] 3.17 mg/dL 0.55-1.02 [facility] GFR/1.73 sq M.predicted MDRD (S/P/Bld) [Vol rate/Area] 17 mL/min/{1.73_m2} >=60 [facility] Glucose [Mass/Vol] 279 mg/dL 74-106 [facility] Potassium [Moles/Vol] 4.2 mmol/L 3.5-5.1 [facility] Protein [Mass/Vol] 6.7 g/dL 6.4-8.2 [facility] Sodium [Moles/Vol] 136 mmol/L 136-145 [facility] Urea nitrogen [Mass/Vol] 40.0 mg/dL 7.0-18.0 [facility] Urea nitrogen/Creatinine [Mass ratio] 12.6 mg/mg [facility] Laboratory - Hematology and Cell countson 05-26-2023 Immature granulocytes/100 WBC (Bld) 4.9 % 0.0-0.5 [facility] Leukocytes [#/volume] correc clifford for nucleated erythrocytes in Blood by Automated counon 05-26-2023 WBC corrected for nucl RBC Auto (Bld) [#/Vol] 20.7 10 3/uL 4.0-11.0 [facility] Lymphocytes Auto (Bld) [#/Vo l]on 05-26-2023 Lymphocytes (Bld) [#/Vol] 1.5 10 3/uL 1.2-3.8 [facility] Lymphocytes/100 WBC Auto (Bl d)on 05-26-2023 Lymphocytes/100 WBC (Bld) 7.2 % 20.5-60.0 [facility] MCH Auto (RBC) [Entitic mass ]on 05-26-2023 MCH (RBC) [Entitic mass] 29.8 pg 26.7-34.0 [facility] MCHC Auto (RBC) [Mass/Vol]on 05-26-2023 MCHC (RBC) [Mass/Vol] 30.6 g/dL 29.9-35.2 [facility] MCV Auto (RBC) [Entitic vol] on 05-26-2023 MCV (RBC) [Entitic vol] 97.5 fL 81.0-99.0 [facility] Monocytes Auto (Bld) [#/Vol] on 05-26-2023 Monocytes (Bld) [#/Vol] 0.5 10 3/uL 0.3-0.8 [facility] Monocytes/100 WBC Auto (Bld) on 05-26-2023 Monocytes/100 WBC (Bld) 2.2 % 1.7-12.0 [facility] Neutrophils Auto (Bld) [#/Vo l]on 05-26-2023 Neutrophils (Bld) [#/Vol] 17.6 10 3/uL 1.4-6.5 [facility] Neutrophils/100 WBC Auto (Bl d)on 05-26-2023 Neutrophils/100 WBC (Bld) 85.2 % 43.0-75.0 [facility] No Panel Informationon 05-26 Eosinophils # (Auto) 0.0 10 3/uL 0.0-0.7 [facility] Immature Granulocyte # (Auto) 1.01 10 3/uL 0.00-0.03 [facility] Platelet mean volume Auto (B ld) [Entitic vol]on 05-26-2023 Platelet mean volume (Bld) [Entitic vol] 10.6 fL 9.5-13.5 [facility] Platelets Auto (Bld) [#/Vol] on 05-26-2023 Platelets (Bld) [#/Vol] 227 10 3/uL 150-450 [facility] RBC Auto (Bld) [#/Vol]on RBC (Bld) [#/Vol] 3.25 10 6/uL 4.20-5.40 [facility] Serum or plasma albumin/glob ulin mass ratioon 05-26-2023 Albumin/Globulin [Mass ratio] 0.5 {ratio} [facility] Serum or plasma anion gap de terminationon 05-26-2023 Anion gap [Moles/Vol] 14.6 mmol/L [facility] Serum procalcitonin measurem enton 05-26-2023 Procalcitonin [Mass/Vol] 0.61 ng/mL 0.00-0.50 [facility] Automated urine specific gra vity by refractometryon 05-25-2023 Specific gravity Refractometry automated (U) [Rel density] >=1.030 1.005-1.025 [facility] Basophils/100 WBC Manual cnt (Bld)on 05-25-2023 Basophils/100 WBC (Bld) 0.0 % 0.2-2.0 [facility] Bilirubin Auto test strip (U ) [Mass/Vol]on 05-25-2023 Bilirubin (U) [Mass/Vol] SMALL NEGATIVE [facility] Blood toxic granulation dete ction by light microscopyon 05-25-2023 Toxic granules LM Ql (Bld) 4+ [facility] Color Auto (U)on 05-25-2023 Color (U) DK. YELLOW YELLOW [facility] Eosinophils/100 WBC Manual c nt (Bld)on 05-25-2023 Eosinophils/100 WBC (Bld) 0.0 % 0.9-7.0 [facility] Erythrocyte distribution wid th Auto (RBC) [Ratio]on 05-25-2023 Erythrocyte distribution width (RBC) [Ratio] 12.3 % 11.0-15.0 [facility] Estimated glomerular filtrat ion rate (GFR) non- Americanon 05-25-2023 GFR/1.73 sq M.predicted among non-blacks MDRD (S/P/Bld) [Vol rate/Area] 12 mL/min/{1.73_m2} >=60 [facility] Globulin Calc (S) [Mass/Vol] on 05-25-2023 Globulin (S) [Mass/Vol] 4.9 g/dL [facility] Hematocrit Auto (Bld) [Volum e fraction]on 05-25-2023 Hematocrit (Bld) [Volume fraction] 35.0 % 36.0-48.0 [facility] Hemoglobin [Mass/volume] in Bloodon 05-25-2023 Hemoglobin (Bld) [Mass/Vol] 11.1 g/dL 12.0-16.0 [facility] Ketones Auto test strip (U) [Mass/Vol]on 05-25-2023 Ketones (U) [Mass/Vol] TRACE mg/dL NEGATIVE [facility] Laboratory - Chemistry and C hemistry - challengeon 05-25-2023 Albumin [Mass/Vol] 2.8 g/dL 3.4-5.0 [facility] ALP [Catalytic activity/Vol] 131 U/L 46-116 [facility] ALT [Catalytic activity/Vol] 21 U/L 14-59 [facility] AST [Catalytic activity/Vol] 21 U/L 15-37 [facility] Bilirubin [Mass/Vol] 0.6 mg/dL 0.2-1.0 [facility] Calcium [Mass/Vol] 9.2 mg/dL 8.5-10.1 [facility] Chloride [Moles/Vol] 100 mmol/L 98-107 [facility] CO2 [Moles/Vol] 27.4 mmol/L 21.0-32.0 [facility] Creatinine [Mass/Vol] 3.70 mg/dL 0.55-1.02 [facility] GFR/1.73 sq M.predicted MDRD (S/P/Bld) [Vol rate/Area] 14 mL/min/{1.73_m2} >=60 [facility] Glucose [Mass/Vol] 142 mg/dL 74-106 [facility] Lactate [Moles/Vol] 1.2 mmol/L 0.4-2.0 [facility] Potassium [Moles/Vol] 4.1 mmol/L 3.5-5.1 [facility] Protein [Mass/Vol] 7.7 g/dL 6.4-8.2 [facility] Sodium [Moles/Vol] 139 mmol/L 136-145 [facility] Urea nitrogen [Mass/Vol] 38.0 mg/dL 7.0-18.0 [facility] Urea nitrogen/Creatinine [Mass ratio] 10.3 mg/mg [facility] Laboratory - Hematology and Cell countson 05-25-2023 Band form neutrophils/100 WBC (Bld) 15.0 % 0-5 [facility] Lymphocytes/100 WBC (Bld) 4.0 % 20.5-60.0 [facility] Monocytes/100 WBC (Bld) 5.0 % 1.7-12.0 [facility] Laboratory - Microbiology an d Antimicrobial susceptibilityon 05-25-2023 SARS-CoV-2 (COVID-19) RNA ITZEL+probe Ql (Unsp spec) Not detected NOT DETECTE [facility] Leukocytes [#/volume] correc clifford for nucleated erythrocytes in Blood by Automated counon 05-25-2023 WBC corrected for nucl RBC Auto (Bld) [#/Vol] 24.6 10 3/uL 4.0-11.0 [facility] MCH Auto (RBC) [Entitic mass ]on 05-25-2023 MCH (RBC) [Entitic mass] 30.3 pg 26.7-34.0 [facility] MCHC Auto (RBC) [Mass/Vol]on 05-25-2023 MCHC (RBC) [Mass/Vol] 31.7 g/dL 29.9-35.2 [facility] MCV Auto (RBC) [Entitic vol] on 05-25-2023 MCV (RBC) [Entitic vol] 95.6 fL 81.0-99.0 [facility] No Panel Informationon 05-25 Adenovirus (PCR) Not detected NOT DETECTE [facility] Bordetella parapertussis DNA (PCR) Not detected NOT DETECTE [facility] Bordetella pertussis (PCR[facility]) Not detected NOT DETECTE [facility] Chlamydia pneumoniae DNA (PCR) Not detected NOT DETECTE [facility] Coronavirus Type 229E (PCR) Not detected NOT DETECTE [facility] Coronavirus Type HKU1 (PCR) Not detected NOT DETECTE [facility] Coronavirus Type NL63 (PCR) Not detected NOT DETECTE [facility] Coronavirus Type OC43 (PCR) Not detected NOT DETECTE [facility] Enterovirus/Rhinovirus (PCR) Not detected NOT DETECTE [facility] Human Metapneumovirus (PCR) Not detected NOT DETECTE [facility] Influenza A (PCR) Not detected NOT DETECTE [facility] Influenza Type B (RT-PCR) Not detected NOT DETECTE [facility] Mycoplasma pneumoniae (PCR) Not detected NOT DETECTE [facility] Parainfluenza Type 1 (PCR) Not detected NOT DETECTE [facility] Parainfluenza Type 2 (PCR) Not detected NOT DETECTE [facility] Parainfluenza Type 3 (PCR) Not detected NOT DETECTE [facility] Parainfluenza Type 4 (PCR) Not detected NOT DETECTE [facility] Respiratory Syncytial Virus (PCR) Not detected NOT DETECTE [facility] Urine Microscopic Review NO [facility] Absolute Basophils (Manual) 0.00 10 3/uL 0.00-0.10 [facility] Band Neutrophils # (Manual) 3.7 10 3/uL 0.0-0.3 [facility] Eosinophils # (Manual) 0.00 10 3/uL 0.00-0.70 [facility] Lymphocytes # (Manual) 0.98 10 3/uL 1.20-3.80 [facility] Monocytes # (Manual) 1.23 10 3/uL 0.30-0.80 [facility] Reactive Lymphocytes 3.19 [facility] Reactive Lymphocytes 13.0 % [facility] Segmented Neutrophils # (Manual) 15.49 10 3/uL 1.4-6.5 [facility] Troponin I High Sensitivity 12.0 pg/mL 4.0-51.3 [facility] Comment on above: CUT-OFF POINTS HAVE [...] Oumar Gunter on 05-25-2023 Blood Culture 2 [facility] Blood Culture 1 [facility] Platelet mean volume Auto (B ld) [Entitic vol]on 05-25-2023 Platelet mean volume (Bld) [Entitic vol] 10.5 fL 9.5-13.5 [facility] Platelets Auto (Bld) [#/Vol] on 05-25-2023 Platelets (Bld) [#/Vol] 272 10 3/uL 150-450 [facility] Protein Auto test strip (U) [Mass/Vol]on 05-25-2023 Protein (U) [Mass/Vol] TRACE mg/dL NEG/TRACE [facility] RBC Auto (Bld) [#/Vol]on RBC (Bld) [#/Vol] 3.66 10 6/uL 4.20-5.40 [facility] Segmented neutrophils/100 WB C Manual cnt (Bld)on 05-25-2023 Segmented neutrophils/100 WBC (Bld) 63.0 % [facility] Serum or plasma albumin/glob ulin mass ratioon 05-25-2023 Albumin/Globulin [Mass ratio] 0.6 {ratio} [facility] Serum or plasma anion gap de terminationon 05-25-2023 Anion gap [Moles/Vol] 15.7 mmol/L [facility] Serum procalcitonin measurem enton 05-25-2023 Procalcitonin [Mass/Vol] 0.52 ng/mL 0.00-0.50 [facility] Specific gravity Auto test s trip (U) [Rel density]on 05-25-2023 Specific gravity (U) [Rel density] CLEAR CLEAR [facility] Urine glucose measurement by test strip (mass/volume)on 05-25-2023 Glucose Test strip (U) [Mass/Vol] Negative NEGATIVE [facility] Urine hemoglobin detection b y automated test stripon 05-25-2023 Hemoglobin Auto test strip Ql (U) Negative NEGATIVE [facility] Urine nitrite detection by a utomated test stripon 05-25-2023 Nitrite Auto test strip Ql (U) Negative NEGATIVE [facility] Urobilinogen Auto test strip (U) [Mass/Vol]on 05-25-2023 Urobilinogen Qn (U) 0.2 {Valentino'U}/dL 0.2-1.0 [facility] pH Auto test strip (U)on pH (U) 5.0 [pH] 5.0-9.0 [facility] XR knee LT 2Von 07-02-2022 XR knee LT 2V [facility] [employer] Other XR knee LT 2V [facility] [employer] Other XR knee LT 2V [address] [place] [address] [employer] Other XR knee LT 2[place] [address] [facility] [employer] Other XR knee LT 2V XRay Report [employer] Other XR knee LT 2V Signed [employer] Other XR knee LT 2V Patient: Catherine Ayers MR#: [id number] [employer] Other XR knee LT 2V [id number] [employer] Other XR knee LT 2V : 1945 Acct:[id number] [employer] Other XR knee LT 2V Age/Sex: 77 / F ADM Date: 07/02/22 [employer] Other XR knee LT 2V Loc: [facility] Room: Type : [facility] [employer] Other XR knee LT 2V Attending Dr: Miguel Schultz II, MD [employer] Other XR knee LT 2V Copies to: Miguel Schultz MD [employer] Other XR knee LT 2V Ordering Provider: Miguel Schultz MD [employer] Other XR knee LT 2V Date of Service: 07/02/22 [employer] Other XR knee LT 2V XR/XR knee LT 2V: Primary osteoarthritis of left knee [employer] Other XR knee LT 2V LEFT KNEE - 2 views No rt [employer] Other XR knee LT 2V COMPARISON: 10/16/2021 [employer] Other XR knee LT 2V CLINICAL DATA: Follow-up knee replacement. [employer] Other XR knee LT 2V AP and lateral standing views were obtained. A knee prosthesis is again visualized. The hardware [employer] Other XR knee LT 2V appears intact and unchanged from the prior. There are no developing fractures or dislocation. [employer] Other XR knee LT 2V There is no sizable knee effusion. [employer] Other XR knee LT 2V XR/XR knee LT 2V [employer] Other XR knee LT 2V IMPRESSION: [employer] Other XR knee LT 2V STABLE KNEE REPLACEMENT. [employer] Other XR knee LT 2V Impression dictated by: Qi Espinoza M.D.07/02/2022 1:42 PM [employer] Other XR knee LT 2V Dictation Location: [facility]-- [employer] Other XR knee LT 2V Transcribed By: JACLYN 07/02/22 [facility] [employer] Other XR knee LT 2V Dictated By: Qi Espinoza MD 07/02/22 [facility] [employer] Other XR knee LT 2V Signed By: [employer] Other XR knee LT 2V 07/02/22 [facility] [employer] Other ECHOCARDIO M/2D COMPLETEon 0 10-17-2021 ECHOCARDIO M/2D COMPLETE Patient: CATHERINE AYERS Exam Date: 10/17/2021 : 1945 Gender:F Ordering : DR OUMAR GUNTER M.D. Admission #: [id number] Family : Order #: [id number] CLICK HERE TO VIEW EXAM ECHOCARDIOGRAM REPORT [...] Arguelles M.D. on 10/17/2021 at 17:41 Normal [facility] ANES POSTPROC EVALon 022 ANES POSTPROC EVAL HNO ID: [id number] Author: Maria Guadalupe Lagos MD Service: Anesthesiology Author Type: Anesthesiologist Type: Anesthesia Postprocedure Evaluation Filed: 08/20/2021 12:24 PM Note Text: POST ANESTHESIA EVALUATION NOTE : 1945 Procedure Summary Date: 08/20/21 Room / Location: [address] Anesthesia Start: 1121 Anesthesia Stop: 1138 [...] August 20, 2021 TIME: 12:23 PM CSN: [id number] Normal [facility] ANES PRE-OPon 08-20-2021 ANES PRE-OP HNO ID: [id number] Author: Maria Guadalupe Lagos MD Service: Anesthesiology Author Type: Anesthesiologist Type: Anesthesia Preprocedure Evaluation Filed: 08/20/2021 9:00 AM Note Text: ANESTHESIOLOGY DAY OF SURGERY NOTE : 1945 Procedure Information Date/Time: 08/20/21 1055 Procedures: PHACOEMULSIFICATION CATARACT IMPLANT INTRAOCULAR LENS W/O ENDOSCOPIC CYCLOPHOTOCOAGULATION (Right Eye) OPHTHALMIC BIOMETRY BY PARTIAL COHERENCE INTERFEROMETRY W/INTRAOCULAR LENS POWER CALCULATION (Right Eye) Location: [address] Surgeons: Jennifer Jones V, MD Estimated [...] August 20, 2021 TIME: 8:59 AM CSN: [id number] Normal [facility] OPERATIVE NOon 08-20-2021 OPERATIVE NO HNO ID: [id number] Author: Jennifer Jones V, MD Service: Ophthalmology Author Type: Physician Type: Operative Report Filed: 08/20/2021 11:39 AM Note Text: OPERATIVE REPORT DATE OF SERVICE: August 20, 2021 PRIMARY SURGEON: Jennifer Jones M.D. MODELING TEACHER: None Procedure(s) (LRB): PHACOEMULSIFICATION CATARACT IMPLANT INTRAOCULAR [...] corneal incision was created temporally with a [place] blade then a 2.4 mm keratome. The anterior chamber was reformed with Viscoat, after which the anterior capsule was opened centrally. Using the Utrata forceps a continuous curvilinear capsulorrhexis of approximately 5.5 mm round was created. Gentle hydrodissection was accomplished using preservative-free lidocaine on a 27-gauge cannula. Using the Tian phacoemulsification unit with the Baeta curved tip, the anterior chamber was entered [...] Implant Name Type Inv. Item Serial No. Bridge Builder Lot No. LRB Model Num No. Used LENS IOL 0D +13 [employer] - [id number] Intraocular Lens LENS IOL 0D +13 [employer] [id number] [employer] Right [id number] 1 was [...] relinquish care POD #1 Jennifer JONES MD [facility] ANES POSTPROC EVALon 022 ANES POSTPROC EVAL HNO ID: [id number] Author: Chencho Leon MD Service: Anesthesiology Author Type: Anesthesiologist Type: Anesthesia Postprocedure Evaluation Filed: 08/06/2021 1:06 PM Note Text: POST ANESTHESIA EVALUATION NOTE : 1945 Procedure Summary Date: 08/06/21 Room / Location: [address] Anesthesia Start: 1031 Anesthesia Stop: 1051 Procedures: [...] August 06, 2021 TIME: 1:06 PM CSN: [id number] Normal [facility] ANES PRE-OPon 08-06-2021 ANES PRE-OP HNO ID: [id number] Author: Chencho Leon MD Service: Anesthesiology Author Type: Anesthesiologist Type: Anesthesia Preprocedure Evaluation Filed: 08/06/2021 10:28 AM Note Text: ANESTHESIOLOGY DAY OF SURGERY NOTE : 1945 Procedure Information Date/Time: 08/06/21 1025 Procedures: PHACOEMULSIFICATION CATARACT IMPLANT INTRAOCULAR LENS W/O ENDOSCOPIC CYCLOPHOTOCOAGULATION (Left Eye) OPHTHALMIC BIOMETRY BY PARTIAL COHERENCE INTERFEROMETRY W/INTRAOCULAR LENS POWER CALCULATION (Left Eye) Location: [place] [address] / [facility] Surgeons: Jennifer Jones V, MD Estimated body [...] ON 08/07/2021] lidocaine 2 % (XYLOCAINE) OTHER Time Study Analyst to OR - tetracaine (PF) 0.5 % [...] August 06, 2021 TIME: 10:10 AM CSN: [id number] Normal [facility] OPERATIVE NOon 08-06-2021 OPERATIVE NO HNO ID: [id number] Author: Jennifer Jones V, MD Service: Ophthalmology Author Type: Physician Type: Operative Report Filed: 08/06/2021 10:49 AM Note Text: OPERATIVE REPORT DATE OF SERVICE: August 06, 2021 PRIMARY SURGEON: Jennifer Jones M.D. MODELING TEACHER: None Procedure(s) (LRB): PHACOEMULSIFICATION CATARACT IMPLANT INTRAOCULAR [...] corneal incision was created temporally with a [place] blade then a 2.4 mm keratome. The [...] Implant Name Type Inv. Item Serial No. Bridge Builder Lot No. LRB Model Num No. Used LENS IOL 0D +13 TONY UV ABS - [id number] Intraocular Lens LENS IOL 0D +13 [employer] [id number] [employer] Left [id number] 1 was [...] 10:48 AM - Comanage with Dr Dang; [facility] POD #1 Jennifer JONES MD [facility] HISTORY PHYSICALon HISTORY PHYSICAL HNO ID: [id number] Author: Shikha Kate APRN.UX DEVELOPER DESIGNER Service: ? Author Type: Nurse Practitioner Type: [...] implants - PAST SURGICAL HISTORY OF [employer]CS ([employer]) - TOTAL KNEE REPLACEMENT Left FAMILY HISTORY [...] fevers. Neuro: No history of TIA's, stroke, RIGHT OF WAY APPRAISER tumor, impaired sensorium, hemiplegia, paraplegia or quadraplegia. No neurological symptoms or problems. Respiratory: No history of current cough or dyspnea, or pneumonia in the past 6 weeks. No history of respiratory/pulmonary symptoms or problems. Cardiovascular: No history of HTN requiring medication, no history of angina, CHF, CO, cardiac surgery or stents. Denies rest pain, gangrene or revascularization/amp utation for PVD. No history of cardiovascular symptoms or problems. +HLD GI: No history of GI symptoms or problems. No history of esophageal varices, recent ascites, or ETOH greater than 2 drinks per day. : No history of dysuria, frequency or incontinence,, stones or chronic kidney disease +urgency RN ICU: Negative for abnormal vaginal bleeding, abnormal vaginal [...] (93.4kg) SpO2 (more content not included)... Normal [facility] CAROTID ART BILon 022 US CAROTID ART [...] EDWARDO MANE Date: 2021-04-29 07:05 Normal [facility] Covid-19 PCR (CVDTBH)on SARS-CoV-2 (COVID-19) RNA ITZEL+probe Ql (Unsp spec) Detected Critically abnormal NOT DETECTED [facility] Comment on above: Result Comment: This test is not yet approved or cleared by the [place] FDA. When there are no FDA-approved or cleared tests available, and other criteria are met, FDA can make tests available under an emergency access mechanism called an Emergency Use Authorization (EUA). The EUA for this test is supported by the [employer] of Health and Human Service's (HHS's) declaration [...] used). Performed By: #### C VDTBH #### [facility] [address] [place] [address] Dr. Марина Lang THYROID ANTIBODIESon 022 Thyroglobulin Antibody <1.0 Normal 0.0-0.9 [facility] Comment on above: Result Comment: Thyr oglobulin Antibody measured by [employer] Methodology Performed By: #### T HYRABS #### [facility] [address] [place] [address] Dr. Марина Lang Thyroid Peroxidase (TPO) Ab <8 Normal 0-34 [facility] Comment on above: Performed By: #### T HYRABS #### [facility] [address] [place] [address] Dr. Марина Lang CBC AUTO DIFFon 04-01-2021 BASO # 0.1 103/ul Normal 0.0-0.1 [facility] Comment on above: Performed By: #### C BC #### [facility] [address] [place] [address] Dr. Марина Lang Basophils/100 WBC (Bld) 0.9 % Normal 0.2-2.0 [facility] Comment on above: Performed By: #### C BC #### [facility] [address] [place] [address] Dr. Марина Lang EO # 0.3 103/ul Normal 0.0-0.7 [facility] Comment on above: Performed By: #### C BC #### [facility] [address] [place] [address] Dr. Марина Lang Eosinophils/100 WBC (Bld) 5.7 % Normal 0.9-7.0 [facility] Comment on above: Performed By: #### C BC #### [facility] [address] [place] [address] Dr. Марина Lang Erythrocyte distribution width (RBC) [Ratio] 14.0 % Normal 11.0-15.0 [facility] Comment on above: Performed By: #### C BC #### [facility] [address] [place] [address] Dr. Марина Lang Hematocrit (Bld) [Volume fraction] 40.5 % Normal 36.0-48.0 [facility] Comment on above: Performed By: #### C BC #### [facility] [address] [place] [address] Dr. Марина Lang Hemoglobin (Bld) [Mass/Vol] 12.3 g/dL Normal 12.0-16.0 [facility] Comment on above: Performed By: #### C BC #### [facility] [address] [place] [address] Dr. Марина Lang IG # 0.01 10e3/ul Normal 0.00-0.03 [facility] Comment on above: Performed By: #### C BC #### [facility] [address] [place] [address] Dr. Марина Lang IG % 0.2 % Normal 0.0-0.5 [facility] Comment on above: Performed By: #### C BC #### [facility] [address] [place] [address] Dr. Марина Lang LYMPH # 1.5 103/ul Normal 1.2-3.8 [facility] Comment on above: Performed By: #### C BC #### [facility] [address] [place] [address] Dr. Марина Lang Lymphocytes/100 WBC (Bld) 27.9 % Normal 20.5-60.0 [facility] Comment on above: Performed By: #### C BC #### [facility] [address] [place] [address] Dr. Марина Lang MANUAL DIFF REQ NO Normal [facility] Comment on above: Performed By: #### C BC #### [facility] [address] [place] [address] Dr. Марина Lang MCH (RBC) [Entitic mass] 28.6 pg Normal 26.7-34.0 [facility] Comment on above: Performed By: #### C BC #### [facility] [address] [place] [address] Dr. Марина Lang MCHC (RBC) [Mass/Vol] 30.4 g/dL Normal 29.9-35.2 [facility] Comment on above: Performed By: #### C BC #### [facility] [address] [place] [address] Dr. Марина Lang MCV (RBC) [Entitic vol] 94.2 fL Normal 81.0-99.0 [facility] Comment on above: Performed By: #### C BC #### [facility] [address] [place] [address] Dr. Марина Lang MONO # 0.5 103/ul Normal 0.3-0.8 [facility] Comment on above: Performed By: #### C BC #### [facility] [address] [place] [address] Dr. Марина Lang Monocytes/100 WBC (Bld) 9.0 % Normal 1.7-12.0 [facility] Comment on above: Performed By: #### C BC #### [facility] [address] [place] [address] Dr. Марина Lang NEUT # 3.1 103/ul Normal 1.4-6.5 [facility] Comment on above: Performed By: #### C BC #### [facility] [address] [place] [address] Dr. Марина Lang Neutrophils/100 WBC (Bld) 56.3 % Normal 43.0-75.0 [facility] Comment on above: Performed By: #### C BC #### [facility] [address] [place] [address] Dr. Марина Lang Platelet mean volume (Bld) [Entitic vol] 9.9 fL Normal 9.5-13.5 [facility] Comment on above: Performed By: #### C BC #### [facility] [address] [place] [address] Dr. Марина Lang PLT 172 103/ul Normal 150-450 [facility] Comment on above: Performed By: #### C BC #### [facility] [address] [place] [address] Dr. Марина Lang RBC 4.30 106/ul Normal 4.20-5.40 [facility] Comment on above: Performed By: #### C BC #### [facility] [address] [place] [address] Dr. Марина Lang WBC 5.4 103/ul Normal 4.0-11.0 [facility] Comment on above: Performed By: #### C BC #### [facility] [address] [place] [address] Dr. Марина Lang FREE T4on 04-01-2021 Free T4 [Mass/Vol] 1.06 ng/dL Normal 0.78-2.19 [facility] Comment on above: Performed By: #### F T4 #### [facility] [address] [address] [address] Марина Lang GLYCOHEMOGLOBIN A1Con 2021 ADA RECOMMENDATION ADA THERAPEUTIC TARGET 6.0 - 7.0 ACTION SUGGESTED > 7.0 Normal [facility] Comment on above: Performed By: #### A 1C #### [facility] [address] [place] [address] Dr. Марина Lang Glucose [Mass/Vol] 131 mg/dL Normal [facility] Comment on above: Performed By: #### A 1C #### [facility] [address] [place] [address] Dr. Марина Lang HbA1c (Bld) [Mass fraction] 6.2 % Critically high <=6.0 [facility] Comment on above: Performed By: #### A 1C #### [facility] [address] [place] [address] Dr. Марина Lang PROF CHEM 8 (BAS METB)on Anion gap [Moles/Vol] 8.9 mmol/L Normal [facility] Comment on above: Performed By: #### B MP, TSH #### [facility] [address] [place] [address] Dr. Марина Lang Calcium [Mass/Vol] 10.0 mg/dL Normal 8.4-10.2 [facility] Comment on above: Performed By: #### B MP, TSH #### [facility] [address] [place] [address] Dr. Марина Lang Chloride [Moles/Vol] 105 mmol/L Normal 98-107 [facility] Comment on above: Performed By: #### B MP, TSH #### [facility] [address] [place] [address] Dr. Марина Lang CO2 [Moles/Vol] 35.0 mmol/L Critically high 22.0-30.0 [facility] Comment on above: Performed By: #### B MP, TSH #### [facility] [address] [place] [address] Dr. Марина Lang Creatinine [Mass/Vol] 1.10 mg/dL Critically high 0.52-1.04 [facility] Comment on above: Performed By: #### B MP, TSH #### [facility] [address] [address] [address] Марина Lang EGFR-AF [place] 59 mL/min/1.73m2 Critically low >=60 [facility] Comment on above: Performed By: #### B MP, TSH #### [facility] [address] [address] [address] Марина Lang EGFR-NON AF [place] 48 mL/min/1.73m2 Critically low >=60 [facility] Comment on above: Performed By: #### B MP, TSH #### [facility] [address] [address] [address] Марина Lang Glucose [Mass/Vol] 107 mg/dL Critically high 74-106 [facility] Comment on above: Performed By: #### B MP, TSH #### [facility] [address] [address] [address] Марина Lang Potassium [Moles/Vol] 4.9 mmol/L Normal 3.4-5.0 [facility] Comment on above: Performed By: #### B MP, TSH #### [facility] [address] [address] [address] Марина Lang Sodium [Moles/Vol] 144 mmol/L Normal 137-145 [facility] Comment on above: Performed By: #### B MP, TSH #### [facility] [address] [address] [address] Марина Lang Urea nitrogen [Mass/Vol] 17.0 mg/dL Normal 7.0-17.0 [facility] Comment on above: Performed By: #### B MP, TSH #### [facility] [address] [address] [address] Марина Lang Urea nitrogen/Creatinine [Mass ratio] 15.5 mg/mg Normal [facility] Comment on above: Performed By: #### B MP, TSH #### [facility] [address] [address] [address] Марина Lang TSHon 04-01-2021 TSH 2.603 uIU/mL Normal 0.470-4.680 [facility] Comment on above: Performed By: #### B MP, TSH #### [facility] [address] [place] [address] Dr. Марина Lang TSH RANGE SEE BELOW Normal [facility] Comment on above: Result Comment: <0.3 4 UIU/ml HYPERTHYROID 0.34-5.60 UIU/ml EUTHYROID >5.60 UIU/ml HYPOTHYROID Performed By: #### B MP, TSH #### [facility] [address] [address] [address] Марина Lang IOL BIOMETRY W/ IOL CALC OU (BOTH EYES) [facility] Vital Signs Date Time Vital Sign Value Performing Clinician Facility 08-01-2024 13:38-0400 Body height 160.02 cm Oumar Gunter MD Work Phone: [facility] 08-01-2024 13:38-0400 Body mass index (BMI) [Ratio] 36.3 kg/m2 Oumar Gunter MD Work Phone: [facility] 08-01-2024 13:38-0400 Body weight 92.98 kg Oumar Gunter MD Work Phone: [facility] 08-01-2024 13:38-0400 Diastolic blood pressure 88 mm[Hg] Oumar Gunter MD Work Phone: [facility] 08-01-2024 13:38-0400 Heart rate 95 /min Oumar Gunter MD Work Phone: [facility] 08-01-2024 13:38-0400 SaO2% (BldA) [Mass fraction] 94 % Oumar Gunter MD Work Phone: [facility] 08-01-2024 13:38-0400 Systolic blood pressure 162 mm[Hg] Oumar Gunter MD Work Phone: [facility] 07-25-2024 10:58-0400 Body height 1920.24 cm Oumra Gunter MD Work Phone: [facility] 07-25-2024 10:58-0400 Body mass index (BMI) [Ratio] 0.2 kg/m2 Oumar Gunter MD Work Phone: [facility] 07-25-2024 10:58-0400 Body weight 89.35 kg Oumar Gunter MD Work Phone: [facility] 07-25-2024 10:58-0400 Diastolic blood pressure 83 mm[Hg] Oumar Gunter MD Work Phone: [facility] 07-25-2024 10:58-0400 Heart rate 84 /min Oumar Gunter MD Work Phone: [facility] 07-25-2024 10:58-0400 Systolic blood pressure 133 mm[Hg] Oumar Gunter MD Work Phone: [facility] 06-27-2024 14:15-0400 Body height 160.02 cm Oumar Gunter MD Work Phone: [facility] 06-27-2024 14:15-0400 Body mass index (BMI) [Ratio] 34.9 kg/m2 Oumar Gunter MD Work Phone: [facility] 06-27-2024 14:15-0400 Body weight 89.35 kg Oumar Gunter MD Work Phone: [facility] 06-27-2024 14:15-0400 Diastolic blood pressure 84 mm[Hg] Oumar Gunter MD Work Phone: [facility] 06-27-2024 14:15-0400 Heart rate 86 /min Oumar Gunter MD Work Phone: [facility] 06-27-2024 14:15-0400 Systolic blood pressure 146 mm[Hg] Oumar Gunter MD Work Phone: [facility] 06-23-2024 09:56-0400 Body height 160.02 cm [facility] 06-23-2024 09:56-0400 Body mass index (BMI) [Ratio] 34.9 kg/m2 [facility] 06-23-2024 09:56-0400 Body temperature 98.4 [degF] [facility] 06-23-2024 09:56-0400 Body weight 89.35 kg [facility] 06-23-2024 09:56-0400 Diastolic blood pressure 83 mm[Hg] [facility] 06-23-2024 09:56-0400 Heart rate 92 /min [facility] 06-23-2024 09:56-0400 Systolic blood pressure 144 mm[Hg] [facility] 04-26-2024 09:27-0500 Body height 160.02 cm [facility] 04-26-2024 09:27-0500 Body mass index (BMI) [Ratio] 34.3 kg/m2 [facility] 04-26-2024 09:27-0500 Body temperature 96.8 [degF] [facility] 04-26-2024 09:27-0500 Body weight 88 kg [facility] 04-26-2024 09:27-0500 Diastolic blood pressure 97 mm[Hg] [facility] 04-26-2024 09:27-0500 Heart rate 86 /min [facility] 04-26-2024 09:27-0500 Systolic blood pressure 159 mm[Hg] [facility] 03-06-2024 11:50-0500 Body height 160.02 cm [facility] 03-06-2024 11:50-0500 Body mass index (BMI) [Ratio] 34.9 kg/m2 [facility] 03-06-2024 11:50-0500 Body weight 89.35 kg [facility] 03-06-2024 11:50-0500 Diastolic blood pressure 81 mm[Hg] [facility] 03-06-2024 11:50-0500 Heart rate 86 /min [facility] 03-06-2024 11:50-0500 Systolic blood pressure 153 mm[Hg] [facility] 06-02-2023 09:33-0500 Body height 160.02 cm MD Oumar Gunter Work Phone: [facility] 06-02-2023 09:33-0500 Body mass index (BMI) [Ratio] 33.6 kg/m2 MD Oumar Gunter Work Phone: [facility] 06-02-2023 09:33-0500 Body weight 86.18 kg MD Oumar Gunter Work Phone: [facility] 06-02-2023 09:33-0500 Diastolic blood pressure 79 mm[Hg] MD Oumar Gunter Work Phone: [facility] 06-02-2023 09:33-0500 Heart rate 120 /min MD Oumar Gunter Work Phone: [facility] 06-02-2023 09:33-0500 Systolic blood pressure 119 mm[Hg] MD Oumar Gunter Work Phone: [facility] 03-10-2023 10:00-0500 Body height 160.02 cm Oumar Gunter Other [facility] [employer] Other 03-10-2023 10:00-0500 Body mass index (BMI) [Ratio] 34.68 kg/m2 Oumar Gunter Other [facility] [employer] Other 03-10-2023 10:00-0500 Body weight 88.81 kg Oumar Gunter Other [facility] [employer] Other 03-10-2023 10:00-0500 Diastolic blood pressure 70 mm[Hg] Oumar Gunter Other [facility] [employer] Other 03-10-2023 10:00-0500 Systolic blood pressure 136 mm[Hg] Oumar Gunter Other [facility] [employer] Other 03-09-2023 11:20-0500 Body height 160.02 cm Linda Renteria Other [employer] Other 03-09-2023 11:20-0500 Body mass index (BMI) [Ratio] 34.72 kg/m2 Linda Winkleroroge Other [employer] Other 03-09-2023 11:20-0500 Body weight 88.91 kg Myra Other [employer] Other 03-09-2023 11:20-0500 Diastolic blood pressure 70 mm[Hg] Myra Other [employer] Other 03-09-2023 11:20-0500 Respiratory rate 20 /min Myra Other [employer] Other 03-09-2023 11:20-0500 SaO2% (BldA) [Mass fraction] 92 % Myra Other [employer] Other 03-09-2023 11:20-0500 Systolic blood pressure 132 mm[Hg] Myra Other [employer] Other 02-08-2023 10:00-0500 Body height 160.02 cm Myra Other [employer] Other 02-08-2023 10:00-0500 Body mass index (BMI) [Ratio] 34.54 kg/m2 My[facility] Other [employer] Other 02-08-2023 10:00-0500 Body weight 88.45 kg Myra Other [employer] Other 02-08-2023 10:00-0500 Diastolic blood pressure 74 mm[Hg] Myra Other [employer] Other 02-08-2023 10:00-0500 Respiratory rate 18 /min Linda Renteria Other [employer] Other 02-08-2023 10:00-0500 SaO2% (BldA) [Mass fraction] 94 % Linda Renteria Other [employer] Other 02-08-2023 10:00-0500 Systolic blood pressure 132 mm[Hg] Linda Renteria Other [employer] Other 09-08-2022 10:30-0400 Body height 160.02 cm Oumar Gunter Other [employer] Other 09-08-2022 10:30-0400 Body mass index (BMI) [Ratio] 34.18 kg/m2 Oumar Gunter Other [employer] Other 09-08-2022 10:30-0400 Body weight 87.54 kg Oumar Gunter Other [employer] Other 09-08-2022 10:30-0400 Diastolic blood pressure 76 mm[Hg] Oumar Gunter Other [employer] Other 09-08-2022 10:30-0400 Systolic blood pressure 134 mm[Hg] Oumar Gunter Other [employer] Other 07-02-2022 10:45-0400 Body height 160.02 cm Miguel Schultz II Other [employer] Other 07-02-2022 10:45-0400 Body mass index (BMI) [Ratio] 35.6 kg/m2 Miguel Screven II Other [employer] Other 07-02-2022 10:45-0400 Body weight 91.17 kg Miguel Screven II Other [employer] Other 09-04-2021 10:45-0400 Body height 160.02 cm Miguel Screven II Other [employer] Other 09-04-2021 10:45-0400 Body mass index (BMI) [Ratio] 35.6 kg/m2 Miguel Screven II Other [employer] Other 09-04-2021 10:45-0400 Body weight 91.17 kg Miguel Screven II Other [employer] Other 08-07-2021 16:30-0400 Body height 160.02 cm Miguel Screven II Other [employer] Other 08-07-2021 16:30-0400 Body mass index (BMI) [Ratio] 35.6 kg/m2 Miguel Screven II Other [employer] Other 08-07-2021 16:30-0400 Body weight 91.17 kg Miguel Screven II Other [employer] Other 07-30-2021 09:12-0400 Body height 161.3 cm Pacc 1 Work Phone: [facility] 07-30-2021 09:12-0400 Body temperature 97 [degF] Pacc 1 Work Phone: [facility] 07-30-2021 09:12-0400 Body weight 93.44 kg Pacc 1 Work Phone: [facility] 07-30-2021 09:12-0400 Diastolic blood pressure 85 mm[Hg] Pacc 1 Work Phone: [facility] 07-30-2021 09:12-0400 Heart rate 101 /min Pacc 1 Work Phone: [facility] 07-30-2021 09:12-0400 Respiratory rate 16 /min Pacc 1 Work Phone: [facility] 07-30-2021 09:12-0400 SaO2% (BldA) [Mass fraction] 96 % Pacc 1 Work Phone: [facility] 07-30-2021 09:12-0400 Systolic blood pressure 139 mm[Hg] Pacc 1 Work Phone: [facility] 07-21-2021 12:30-0400 Diastolic blood pressure 78 mm[Hg] MD Oumar Gunter Work Phone: [facility] 07-21-2021 12:30-0400 Heart rate 98 /min MD Oumar Gunter Work Phone: [facility] 07-21-2021 12:30-0400 Respiratory rate 16 /min MD Oumar Gunter Work Phone: [facility] 07-21-2021 12:30-0400 SaO2% (BldA) [Mass fraction] 94 % MD Oumar Gunter Work Phone: [facility] 07-21-2021 12:30-0400 Systolic blood pressure 146 mm[Hg] MD Oumar Gunter Work Phone: [facility] 07-21-2021 12:00-0400 Inhaled oxygen flow rate 1 L/min MD Oumar Gunter Work Phone: [facility] 07-21-2021 10:21-0400 Body temperature 97.2 [degF] MD Oumar Gunter Work Phone: [facility] 07-21-2021 07:16-0400 Body height 161.29 cm MD Oumar Gunter Work Phone: [facility] 07-21-2021 07:16-0400 Body mass index (BMI) [Ratio] 35.7 kg/m2 MD Oumar Gunter Work Phone: [facility] 07-21-2021 07:16-0400 Body weight 93 kg MD Oumar Gunter Work Phone: [facility] 07-04-2021 10:30-0400 Body height 160.02 cm Miguel Screven II Other [employer] Other 07-04-2021 10:30-0400 Body mass index (BMI) [Ratio] 35.42 kg/m2 Miguel Screven II Other [employer] Other 07-04-2021 10:30-0400 Body weight 90.72 kg Miguel Saw II Other [employer] Other 05-28-2021 11:15-0500 Body height 160.02 cm Miguel Screven II Other [employer] Other 05-28-2021 11:15-0500 Body mass index (BMI) [Ratio] 35.6 kg/m2 Miguel Screven II Other [employer] Other 05-28-2021 11:15-0500 Body weight 91.17 kg Miguel Saw II Other [employer] Other Encounters Encounter Date Encounter Type Care Provider Facility Start: 08-01-2024 End: 08-01-2024 ambulatory Oumar Gunter MD Work Phone: [facility] Work Phone: Start: 08-01-2024 End: 08-01-2024 Patient encounter procedure Oumar Gunter MD Work Phone: [facility] Work Phone: Start: 07-28-2024 Non-patient / Non-visit Oumar Gunter MD Work Phone: [facility] [employer] Work Phone: Start: 07-27-2024 Non-patient / Non-visit Oumar Gunter MD Work Phone: [facility] Work Phone: Start: 07-26-2024 Non-patient / Non-visit Oumar Gunter MD Work Phone: [facility] Work Phone: Start: 07-25-2024 End: 07-25-2024 ambulatory Oumar Gunter MD Work Phone: [facility] Work Phone: Start: 07-25-2024 End: 07-25-2024 Patient encounter procedure Oumar Gunter MD Work Phone: [facility] Work Phone: Start: 07-18-2024 Non-patient / Non-visit Oumar Gunter MD Work Phone: [facility] Work Phone: Start: 06-27-2024 End: 06-27-2024 ambulatory Oumar Gunter MD Work Phone: [facility] Work Phone: Start: 06-27-2024 End: 06-27-2024 Patient encounter procedure Oumar Gunter MD Work Phone: [facility] Work Phone: Start: 06-27-2024 End: 06-27-2024 Patient encounter procedure Oumar Gunter MD Work Phone: [facility] Start: 06-27-2024 End: 06-27-2024 ambulatory Oumar Gunter MD Work Phone: [facility] Work Phone: Start: 06-23-2024 End: 06-23-2024 ambulatory [facility] Work Phone: Start: 06-23-2024 End: 06-23-2024 Patient encounter procedure [facility] Work Phone: Start: 05-09-2024 End: 05-09-2024 ambulatory [facility] Work Phone: Start: 05-09-2024 End: 05-09-2024 Patient encounter procedure [facility] Work Phone: Start: 05-05-2024 End: 05-05-2024 Patient encounter procedure [facility] Work Phone: Start: 04-26-2024 End: 04-26-2024 Patient encounter procedure [facility] Work Phone: Start: 03-07-2024 Patient encounter procedure [facility] Start: 03-06-2024 End: 03-06-2024 Patient encounter procedure [facility] Work Phone: Start: 03-01-2024 Non-patient / Non-visit [facility] Work Phone: Start: 06-15-2023 End: 06-15-2023 ambulatory MD Oumar Gunter Work Phone: [facility] Work Phone: Start: 06-15-2023 End: 06-15-2023 Departed Referred MD Oumar Gunter Work Phone: [facility] Start: 06-15-2023 Non-patient / Non-visit MD Bing Gunter Work Phone: [facility] Work Phone: Start: 06-02-2023 End: 06-02-2023 Patient encounter procedure MD Oumar Gunter Work Phone: [facility] Work Phone: Start: 05-31-2023 Non-patient / Non-visit MD Bing Gunter Work Phone: [facility] Work Phone: Start: 05-29-2023 Non-patient / Non-visit MD Bing Gunter Work Phone: [facility] Work Phone: Start: 05-28-2023 Non-patient / Non-visit MD Bing Gunter Work Phone: [facility] Work Phone: Start: 05-27-2023 Non-patient / Non-visit MD Bing Gunter Work Phone: [facility] Work Phone: Start: 05-27-2023 Non-patient / Non-visit MD Bing Gunter Work Phone: [facility] Work Phone: Start: 05-26-2023 Non-patient / Non-visit MD Bing Gunter Work Phone: [facility] Work Phone: Start: 05-25-2023 Non-patient / Non-visit MD Bing Gunter Work Phone: [facility] Work Phone: Start: 05-04-2023 End: 05-04-2023 ambulatory Oumar Gunter Other [employer] Other Start: 05-04-2023 Telephone encounter Oumar Gunter [facility] Start: 03-10-2023 End: 03-10-2023 ambulatory Oumar Gunter Other [employer] Other Start: 03-10-2023 Office outpatient vi sit 15 minutes Oumar Gunter [facility] Start: 03-09-2023 End: 03-09-2023 ambulatory Linda Renteria Other [facility] Other Start: 03-09-2023 Office outpatient vi sit 25 minutes Linda Renteria [facility] Start: 03-03-2023 Telephone encounter Oumar Gunter [facility] Start: 03-03-2023 End: 03-03-2023 ambulatory MD Oumar Gunter Work Phone: [employer] Other Start: 03-03-2023 End: 03-03-2023 Patient encounter procedure MD Oumar Gunter Work Phone: [facility] Work Phone: Start: 03-02-2023 End: 03-02-2023 Patient encounter procedure MD Oumar Gunter Work Phone: [facility] Work Phone: Start: 02-25-2023 End: 02-25-2023 ambulatory MD Oumar Gunter Work Phone: [facility] Work Phone: Start: 02-25-2023 End: 02-25-2023 Patient encounter procedure MD Oumar Gunter Work Phone: [facility] Work Phone: Start: 02-15-2023 End: 02-15-2023 ambulatory Oumar Gunter Other [facility] Other Start: 02-15-2023 Telephone encounter Oumar Gunter [facility] Start: 02-10-2023 End: 02-10-2023 ambulatory Linda Renteria Other [facility] Other Start: 02-10-2023 Telephone encounter [facility] Start: 02-08-2023 End: 02-08-2023 ambulatory Linda Renteria Other [facility] Other Start: 02-08-2023 Office outpatient ne w 45 minutes Linda Renteria [facility] Start: 02-01-2023 End: 02-01-2023 ambulatory Oumar Gunter Other [facility] Other Start: 02-01-2023 Telephone encounter Oumar Gunter [facility] Start: 01-05-2023 End: 01-05-2023 ambulatory Oumar Gunter Other [employer] Other Start: 01-05-2023 Telephone encounter Oumar Gunter [facility] Start: 12-31-2022 End: 12-31-2022 ambulatory Oumar Gunter Other [facility] Other Start: 12-31-2022 Telephone encounter Oumar Gunter [facility] Start: 10-01-2022 End: 10-01-2022 ambulatory Oumar Gunter Other [employer] Other Start: 10-01-2022 Telephone encounter Oumar Gunter [facility] Start: 09-23-2022 End: 09-23-2022 ambulatory Oumar Gunter Other [facility] Other Start: 09-23-2022 Telephone encounter Oumar Gunter [facility] Start: 09-09-2022 End: 09-09-2022 ambulatory Oumar uGnter Other [employer] Other Start: 09-09-2022 Telephone encounter Oumar Gunter [facility] Start: 09-08-2022 End: 09-08-2022 ambulatory Oumar Gunter Other [facility] Other Start: 09-08-2022 Office outpatient vi sit 25 minutes Oumar Gunter [facility] Start: 07-03-2022 End: 07-03-2022 ambulatory Oumar Gunter Other [employer] Other Start: 07-03-2022 Telephone encounter Oumar Gunter [facility] Start: 07-02-2022 End: 07-02-2022 Patient encounter procedure MD Oumar Gunter Work Phone: [facility] Start: 07-02-2022 End: 07-02-2022 ambulatory MD Oumar Gunter Work Phone: [facility] Work Phone: Start: 06-03-2022 End: 06-03-2022 ambulatory Oumar Gunter Other [facility] Other Start: 06-03-2022 Telephone encounter Oumar Gunter [facility] Start: 04-08-2022 End: 04-08-2022 ambulatory Oumar Gunter Other [facility] Other Start: 04-08-2022 Telephone encounter Oumar Gunter [facility] Start: 02-02-[address] OUMAR GUNTER Facil ity:H1 Start: 10-17-2021 End: 10-18-[address] OUMAR GUNTER Facility:H1 Start: 10-16-2021 End: 10-16-2021 Patient encounter procedure MD Oumar Gunter Work Phone: [facility] Start: 09-18-2021 End: 09-18-2021 ambulatory Miguel Screven II Other [employer] Other Start: 09-18-2021 Office outpatient vi sit 15 minutes Miguel Screven II [facility] Start: 09-04-2021 (Post-Op) Post-Op Miguel Screven II [facility] Start: 09-04-2021 End: 09-04-2021 ambulatory Miguel Saw II Other [facility] Other Start: 09-04-2021 End: 09-04-2021 Patient encounter procedure MD Oumar Gunter Work Phone: [facility] Start: 08-27-2021 End: 10-03-2021 ambulatory MIGUEL SAW Facility:H1 Start: 08-20-2021 End: 08-20-2021 Patient encounter procedure Mary Pacheco OD Work Phone: Ophthalmology Comment on above: S/P cataract extract ion and insertion of intraocular lens, left (Primary Dx); 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 Start: 08-07-2021 (Post-Op) Post-Op Miguel Screven [facility] Start: 08-07-2021 End: 08-07-2021 ambulatory Miguel Saw Other [employer] Other Start: 08-07-2021 End: 08-07-2021 Patient encounter [...] eyes Start: 07-30-2021 End: 07-30-2021 Admission to [facility] 1 Work Phone: [facility] Start: 07-30-2021 End: 07-30-2021 ambulatory [facility] 1 Work Phone: Pre Anesthesia Comment on above: Pre-op evaluation (P rimary Dx); Cataract of both eyes, unspecified cataract type; Other hyperlipidemia; Complex regional pain syndrome type 1, affecting unspecified site Start: 07-30-2021 End: 07-30-2021 Preprocedural examination done [facility] 1 Work Phone: Pre Anesthesia Start: 07-23-2021 End: 07-23-2021 ambulatory Miguel Rodríguezle Other [employer] Other Start: 07-23-2021 Telephone encounter Miguel Rodríguezle [facility] Start: 07-21-2021 End: 07-21-2021 ambulatory Miguel Screven II Other [employer] Other Start: 07-21-2021 Telephone encounter Miguel Saw II [facility] Start: 07-21-2021 End: 07-21-2021 Admission to same day surgery center MD Oumar Gunter [facility] [place] Start: 07-11-2021 (Prolonged) Prolonge d Services Miguel Saw II [facility] Start: 07-11-2021 End: 07-11-2021 ambulatory Miguel Screven II Other [facility] Other Start: 07-10-2021 End: 07-10-2021 ambulatory Miguel Screven II Other [facility] Other Start: 07-10-2021 Telephone encounter Miguel Screven II [facility] Start: 07-04-2021 End: 07-04-2021 ambulatory Miguel Screven II Other [employer] Other Start: 07-04-2021 Encounter for other preprocedural examination Miguel Saw II [facility] Start: 07-04-2021 Patient encounter procedure Miguel Saw II [facility] Start: 05-28-2021 End: 05-28-2021 ambulatory Miguel Saw II Other [facility] Other Start: 05-28-2021 Encounter for other preprocedural examination Miguel Saw II [facility] Start: 05-28-2021 Office outpatient vi sit 40 minutes Miguel Screven II [facility] Start: 04-28-2021 End: 04-29-[address] OUMAR GUNTER Facility:H1 Start: 04-03-2021 End: 04-03-[address] OUMAR GUNTER Facility:H1 Start: 04-01-2021 End: 04-02-[address] OUMAR GUNTER Facility:H1 Start: 02-04-2021 End: 02-05-2021 ambulatory SHAIKH Sweetie RHODES Facility:H1 Procedures Date Procedure Procedure Detail Performing Clinician Start: 06-27-2024 Plain X-ray of left wrist Oumar Gunter MD Work Phone: Start: 05-27-2023 Bacteria identified in Sputum by [...] Treatment Date Care Activity Detail Author Start: 06-27-2024 Plain X-ray of left wrist XR wrist L T min 3V* [facility] Start: 06-27-2024 XR Wrist - left GE 3 Views [facility] Start: 03-07-2024 Patient referral [facility] Work Phone: Start: 06-02-2023 Patient referral [facility] Work Phone: Start: 03-02-2023 Radionuclide myocard ial perfusion stress study NM priscila perf SPECT rest & str [facility] Start: 11-27-2021 Influenza vaccination INFLUENZ A (Season Ended) [facility] Start: 07-21-2021 End: 07-21-2021 [facility] Work Phone: Start: 06-11-2021 COVID-19 VACCINE (4 - Booster for Pfizer series) COVID-19 VACCINE (4 - Booster for Pfizer series) [facility] Start: 03-29-2021 ADVANCE DIRECTIVE DISCUSSION ADVANCE DIRECTIVE DISCUSSION [facility] Start: 01-10-2017 DIABETES SCREEN DIABETES SCREEN [facility] Start: 07-01-2016 Adult depression screening assessment DEPRESSION SCREENING [facility] Start: 2010 BONE DENSITY BONE DENSITY [facility] Start: 2010 PNEUMOVAX AGE 65 AND OVER WITH 5YR LOOKBACK (#1) PNEUMOVAX AGE 65 AND OVER WITH 5YR LOOKBACK (#1) [facility] Start: 02-19-2010 SHINGRIX VACCINE (2 of 3) ESPANA GRIX VACCINE (2 of 3) [facility] Start: 1964 Urine microalbumin profile DTAP,TDAP,TD (1 - Tdap) [facility] Start: 1963 ANNUAL 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 DISEASE VISIT ANNUAL PCP TEAM CHRONIC DISEASE VISIT [facility] Start: 1963 HEPATITIS C SCREENING HEPATITIS C SC LAUREN [facility] Start: 1951 PNEUMOCOCCAL: 65+ (1 - PCV) PNEUMOCOCCAL: 65+ (1 - PCV) [facility] Comprehensive metabo lic 2000 panel - Serum or Plasma [facility] Patient referral [facility] Work Phone: Urine culture [facility] XR Chest 2 Views [facility] Immunizations Immunization Date Immunization Notes Care Provider Fa cilicolt 12-20-2023 influenza, high dose seasonal, preservative-free [facility] 01-20-2023 influenza, high dose seasonal, preservative-free Oumar Gunter Other [facility] [employer] Other 01-20-2023 influenza virus vaccine, unspecified formulation MD Oumar Gunter Work Phone: [facility] 01-09-2022 influenza virus vaccine, split virus (incl. purified surface antigen) Oumar Gunter Other [facility] [employer] Other 01-09-2022 influenza virus vaccine, unspecified formulation MD Oumar Gunter Work Phone: [facility] 02-11-2021 COVID-19 mRNA, Comirnaty (Pfizer) MD Oumar Gunter Work Phone: [facility] 01-09-2021 influenza virus vaccine, split virus (incl. purified surface antigen) Oumar Gunter Other [facility] [employer] Other 01-09-2021 influenza virus vaccine, unspecified formulation MD Oumar Gunter Work Phone: [facility] 05-30-2020 COVID-19 mRNA, Comirnaty (Pfizer) MD Oumar Gunter Work Phone: [facility] 05-09-2020 COVID-19 mRNA, Comirnaty (Pfizer) MD Oumar Gunter Work Phone: [facility] 12-14-2019 influenza virus vaccine, split virus (incl. purified surface antigen) Oumar Gunter Other [facility] [employer] Other 12-14-2019 influenza virus vaccine, unspecified formulation MD Oumar Gunter Work Phone: [facility] 01-12-2019 influenza virus vaccine, split virus (incl. purified surface antigen) Oumar Gunter Other [facility] Other 01-12-2019 influenza virus vaccine, unspecified formulation MD Oumar Gunter Work Phone: [facility] 12-25-2009 zoster vaccine, live [facility] Work Phone: [facility] Payers Date Payer Category Payer Medicare HUMANA MEDICARE HUMANA MEDICARE PPO [id number] 2021-Present [phone] [address] [address] [place] [address] PPO [id number] 1959 Medicare [id number] 1959 Self-pay [id number] 1945 Unknown [id number] 1945 Unknown [id number] 1945 Unknown [id number] 1945 Unknown [id number] 1945 Unknown [id number] 1945 Unknown [id number] 1945 Unknown [id number] Unknown [id number] Social History Date Type Detail Facility Start: 12-25-2010 End: 07-21-2021 Tobacco smoking status NHIS Never smoked tobacco [facility] Start: 12-25-2010 Tobacco use and exposure Smokeless tobacco non-user [facility] Start: 07-30-2021 End: 08-20-2021 Alcohol intake Current drinker of alcohol (finding) [facility] Start: 12-25-2010 History SDOH Alcohol Comment very rare [facility] Start: 1945 Sex Assigned At Female [facility] Start: 06-29-2021 End: 08-06-2021 Exposure to SARS-CoV-2 (event) Not sure [facility] Sex Assigned At Sex Assigned At Bir th [facility] Other Start: 05-09-2024 End: 08-01-2024 Sex Female (finding) [facility] Medical Equipment Procedure Code Equipment Code Equipment Origin al Text Equipment Identifier Dates Arthroplasty, knee, total, minimally invasive Orthopaedic cement, non-medicated [id number] FDA Start: 07-21-2021 Arthroplasty, knee, total, minimally invasive Uncoated knee femur prosthesis ()[id number] FDA Start: 07-21-2021 Arthroplasty, knee, total, minimally invasive Tibial insert ()[id number] FDA Start: 07-21-2021 Arthroplasty, knee, total, minimally invasive Polyethylene patella prosthesis ()[id number] FDA Start: 07-21-2021 Arthroplasty, knee, total, minimally invasive Knee stem ()[id number] FDA Start: 07-21-2021 Arthroplasty, knee, total, minimally invasive Uncoated knee tibia prosthesis, metallic ()[id number] FDA Start: 07-21-2021 Genrtr Nrstm Pls Imp Chrg Kt - [id number] Start: 01-18-2014 Zwk-Rx-W-Kind Implant - [id number] [id number]_[facility] Start: 11-30-2013 Comment on above: Description: LINEAR ST 70CM 8 CONTACT LEAD KIT Cmm-Ag-P-Kind Implant - [id number]_[facility] Start: 01-18-2014 Comment on above: Description: CLIK AN CHOR Kit Stim 50cm Li n 8 Cntct Ld - [id number]_[facility] Start: 01-18-2014 Lens Iol 0d +13 Tony Uv Abs - [id number]_[facility] Start: 08-06-2021 Comment on above: Description: -0.39 Lens Iol 0d +13 Tony Uv Abs - [id number]_[facility] Start: 08-20-2021 Comment on above: Description: -0.48 Goals Date Patient Goal Desired Activity /State Clinical Notes 02-05-2021 to 06-23-2024 Note Date & Type Note Facility 06-23-2024 Evaluation note Diagnosis Onset Date Resolution 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 acute June 23, 2024 9:46am Arthritis of carpometacarpal (CMC) joint of left thumb acute June 27 1:57pm Arthritis of gafkqggc-enlakalen-bqqxnb oid joint of left hand acute June 1:57pm Left hand pain acute June 27, 2024 1:57pm Confusion acute July 25 10:55am Cough acute July 25 10:55am Fall acute July 25 10:55am Rib fracture acute July 25, 2024 10:55am CHF (congestive heart failure) acute August 01, 2024 1:31pm Edema acute August 01, 2024 1:31pm [facility] Work Phone: 1(426) 660-923801-29-2025 Evaluation note* Diagnosis Onset Date Resolution Status Admit Date 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 acute April 26 9:25am Constipation acute March 9:25am Encounter for palliative care acute April 26, 2024 9:25am 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 acute June 23, 2024 9:46am Neuropathic pain, leg, bilateral acute June 23, 2024 9:46am [facility] Work Phone: 1(493) 212-992201-29-2025 Evaluation note* Diagnosis Onset Date Resolution Status Admit Date 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 acute April 26 9:25am Constipation acute March 9:25am Encounter for palliative care acute April 26, 2024 9:25am 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 acute June 23, 2024 9:46am Arthritis of carpometacarpal (CMC) joint of left thumb acute June 27, 2024 1:57pm Arthritis of gpfycmar-rampxaynu-mnysduuwo joint of left hand acute June 27 1:57pm Left hand pain acute June 27, 2024 1:57pm [facility] Work Phone: 1(403) 112-593401-29-2025 Evaluation note* Diagnosis Onset Date Resolution Status Admit Date 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 acute April 26 9:25am Constipation acute March 9:25am Encounter for palliative care acute April 26, 2024 9:25am 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 acute June 23, 2024 9:46am Arthritis of carpometacarpal (CMC) joint of left thumb acute June 27, 2024 1:57pm Arthritis of tglmzpvh-mjhrjpfsb-cfmkyksiq joint of left hand acute June 27 1:57pm Left hand pain acute June 27, 2024 1:57pm Confusion acute July 25 10:55am Cough acute July 25 10:55am Fall acute July 25 10:55am Rib fracture acute July 25, 2024 10:55am [facility] Work Phone: 1(803) 449-633812-09-2024 Evaluation note* Diagnosis Onset Date Resolution Status Admit Date Chronic thoracic back pain acute March 06, 2024 11:41am Left wrist pain acute March 06, 2024 11:41am Medicare annual wellness visit, subsequent acute March 06, 2024 11:41am 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 acute April 26 9:25am Constipation acute March 9:25am Encounter for palliative care acute April 26, 2024 9:25am [facility] Work Phone: 1(480) 556-739002-06-2024 Evaluation note* Encounter Date Diagnosis Assessment Notes Treatment Notes Treatment Clinical Notes Apr, Neuropathic pain, leg, bilateral (ICD-10 - G57.93) [facility] Other 12-13-2023 Evaluation note* Encounter Date Diagnosis [...] from Cardiology - followup in 1 yr. [facility] Other 12-12-2023 Evaluation note* Encounter Date Diagnosis [...] Gunter for abnormal echocardiogram. Echo preformed at [facility] 12/29/2022 showed EF 55-60% with normal diastolic [...] (chronic obstructive pulmonary disease) (ICD-10 - J44.9) [facility] Other 12-06-2023 Evaluation note* Encounter Date Diagnosis Assessment Notes Treatment Notes Treatment Clinical Notes Feb, Neuropathic pain, leg, bilateral (ICD-10 - G57.93) [facility] Other 11-20-2023 Evaluation note* Encounter Date Diagnosis Assessment Notes Treatment Notes Treatment Clinical Notes Jan, Pulmonary HTN (ICD-10 - I27.20) [facility] Other 11-13-2023 Evaluation note* Encounter Date Diagnosis [...] Gunter for abnormal echocardiogram. Echo preformed at [facility] 12/29/2022 showed EF 55-60% with normal diastolic [...] - R06.02) Jan, Diaphoresis (ICD-10 - R61) [facility] Other 11-06-2023 Evaluation note* Encounter Date Diagnosis Assessment Notes Treatment Notes Treatment Clinical Notes Jan, Neuropathic pain, leg, bilateral (ICD-10 - G57.93) [facility] Other 10-05-2023 Evaluation note* Encounter Date Diagnosis Assessment Notes Treatment Notes Treatment Clinical Notes Dec, Acute thoracic back pain, unspecified back pain laterality (ICD-10 - M54.6) [facility] Other 07-06-2023 Evaluation note* Encounter Date Diagnosis Assessment Notes Treatment Notes Treatment Clinical Notes Sep, Acute thoracic back pain, unspecified back pain laterality (ICD-10 - M54.6) [facility] Other 06-13-2023 Evaluation note* Encounter Date Diagnosis [...] that present medications do control her symptoms. [facility] Other 04-07-2023 Evaluation note* Encounter Date Diagnosis Assessment Notes Treatment Notes Treatment Clinical Notes Jun, Acute thoracic back pain, unspecified back pain laterality (ICD-10 - M54.6) [facility] Other 04-06-2023 Evaluation note* Encounter Date Diagnosis Assessment Notes Treatment Notes Treatment Clinical Notes Jun, Primary osteoarthritis of left knee (ICD-10 - M17.12) Jun, Aftercare following joint replacement surgery (ICD-10 - Z47.1) Jun, Presence of left artificial knee joint (ICD-10 - Z96.652) Jun, Other [facility] at [facility] on 07/21/2021 Happy with surgical result Follow up yearly with standing AP and lateral xrays of the left knee Patient instructed to call with any questions or concerns. [facility] Other 06-23-2022 Evaluation note* Encounter Date Diagnosis Assessment Notes Treatment Notes Treatment Clinical Notes Aug, Primary osteoarthritis of left knee (ICD-10 - M17.12) Aug, Aftercare following joint replacement surgery (ICD-10 - Z47.1) Aug, Presence of left artificial knee joint (ICD-10 - Z96.652) Aug, Other [facility] at [facility] on 07/21/2021 Overall doing very well. The Medrol Dosepak seem to help her significantly with the inflammation. She can continue activities as tolerated and continue working with physical therapy as recommended. Follow-up in 4 weeks for repeat examination and long standing x-rays. [facility] Other 06-09-2022 Evaluation note* Encounter Date Diagnosis Assessment Notes Treatment Notes Treatment Clinical Notes Aug, Primary osteoarthritis of left knee (ICD-10 - M17.12) Aug, Aftercare following joint replacement surgery (ICD-10 - Z47.1) Aug, Presence of left artificial knee joint (ICD-10 - Z96.652) Aug, Other [facility] at [facility] on 07/21/2021 Doing well. We will get her on a Medrol Dosepak to try and help with some of this inflammation I think that is going on in that knee. I will see her back in 2 weeks just to recheck to make sure she is continuing to improve. Patient may continue activities as tolerated. Continue PT as recommended. Continue taking agwv-tlf-dghmwuh anti-inflammatorie s as needed for assistance with swelling and pain associated with the operative extremity. Follow-up in 2 for a recheck and then 4 weeks for repeat examination and long standing x-rays. [facility] Other 05-25-2022 NoteHNO ID: [id number] Author: Mary L Junior, OD Service: ? Author Type: COKE STILL CLEANER Type: Progress Notes Filed: 08/20/2021 8:56 AM [...] Mary Pacheco, OD August 20, 2021 8:55 [facility]05-25-2022 History of Present illness Narrative* Mary [...] 20, 2021 8:55 AM [facility]* Encounter Date Diagnosis Assessment Notes Treatment Notes Treatment Clinical Notes July, Primary osteoarthritis of left knee (ICD-10 - M17.12) July, Aftercare following joint replacement surgery (ICD-10 - Z47.1) July, Presence of left artificial knee joint (ICD-10 - Z96.652) July, Other [facility] on 07/21/2021 Doing well. Zipline removed. Steri-Strips [...] 3 view x-rays of the left knee. [facility] Other 05-12-2022 NoteHNO ID: [id number] Author: Mary Pacheco OD Service: ? Author Type: COKE STILL CLEANER Type: Progress Notes Filed: 08/07/2021 9:08 AM [...] Mary Pacheco OD August 07, 2021 8:59 [facility]05-12-2022 History of Present illness Narrative* Mary Pacheco OD - 08/07/2021 8:58 AM EDT Post-op [...] Mary Pacheco OD August 07, 2021 8:59 AM [facility]22 NoteHNO ID: [id number] Author: PARK Cedeño Service: ? Author Type: Resolution Manager Type: Progress Notes Filed: 07/30/2021 10:04 AM Note Text: CONFIRM AIM PLANO BOTH EYES. IQ IOL PATIENT AWARE THAT HE WILL NEED GLASSES FOR ALL DISTANCES. [facility] History of Present illness Narrative* PARK Cedeño - 07/30/2021 10:00 AM EDT CONFIRM AIM PLANO BOTH EYES. IQ IOL PATIENT AWARE THAT HE WILL NEED GLASSES FOR ALL DISTANCES. PARK Cedeño documented in this encounterGerman Hospital05-04-2022 Instructions* Patient Instructions* Shikha Kate APRN.UX DEVELOPER DESIGNER - 07/30/2021 9:23 AM EDT PATIENT PREOPERATIVE INSTRUCTIONS Jennifer Jones V, MD has scheduled you for your procedure at this surgery center: [facility]: [phone] --[address] [facility] [place] [address]. Please read below carefully for your personalized [...] Advance Directive, please fax a copy to [phone] or email to for it to be [...] day. Shikha Kate APRN.CNP documented in this encounterGerman Hospital05-04-2022 History and physical note * Shikha Kate APRN.CNP - 07/30/2021 8:51 AM EDT HISTORY AND [...] with implants PAST SURGICAL HISTORY OF [facility] ([facility]) TOTAL KNEE REPLACEMENT Left FAMILY HISTORY Problem [...] fevers. Neuro: No history of TIA's, stroke, RIGHT OF WAY APPRAISER tumor, impaired sensorium, hemiplegia, paraplegia or quadraplegia. No neurological symptoms or problems. Respiratory: No history of current cough or dyspnea, or pneumonia in the past 6 weeks. No history of respiratory/pulmonary symptoms or problems. Cardiovascular: No history of HTN requiring medication, no history of angina, CHF, CO, cardiac surgery or stents. Denies rest pain, gangrene or revascularization/amputation for PVD. No history of cardiovascular symptoms or problems. +HLD GI: No history of GI symptoms or problems. No history of esophageal varices, recent ascites, or ETOH greater than 2 drinks per day. : No history of dysuria, frequency or incontinence,, stones or chronic kidney disease +urgency RN ICU: Negative for abnormal vaginal bleeding, abnormal vaginal [...] 2021 TIME: 8:51 AM documented in this encounterGerman Hospital04-15-2022 Evaluation note* Encounter Date Diagnosis Assessment [...] patient could proceed with surgery safely. The multimedia manager was vital for surgery timing and [...] plans. Prolonged services time spent: 32 minutes [facility] Other 04-14-2022 Evaluation note* Encounter Date Diagnosis Assessment Notes Treatment Notes Treatment Clinical Notes Jun, Age-related osteoporosis without current pathological fracture (ICD-10 - M81.0) [facility] Other 04-08-2022 Evaluation note* Encounter Date Diagnosis [...] pain control. Joints Meeting Checklist - Pharmacy: [facility] to bed - Approach/Technique: ALICIA - [...] elected to proceed with the above surgery. [facility] Other 03-02-2022 Evaluation note* Encounter Date Diagnosis [...] reasonable to proceed with total knee replacement. 02 Mar, 2022 Age-related osteoporosis without current pathological fracture (ICD-10 - M81.0) May, On senior care drug therapy (ICD-10 - Z79.899) May, Preop [...] or absent clearances could delay their surgery. [facility] Other 03-01-2022 NoteHNO ID: [id number] Author: Jennifer Jones V, MD Service: ? Author Type: Physician Type: Progress Notes Filed: 05/27/2021 1:01 PM Note Text: The documentation for this note was completed by Dianelys Mai [facility] acting as a scribe for Jennifer JONES MD. 05/27/2021 12:53 PM. ASSESSMENT / PLAN: 1. Combined cataract, both eyes - Offered cataract extraction by phacoemulsification and intraocular lens implant with Dr. Jones, both eyes, left eye first - Aim: [place] Both eyes [monocular precautions following Cataract extraction] [...] and surgery - Comanage with Dr Dang; [facility] POD #1 Cataract Presurgical Documentation Cataract: Both [...] Eye High BVCA 20/300 Visual Function: Catherine Ayers states that the decline in vision from [...] patient was offered a [facility]. The surgeon/proceduralist and patient have [...] Jennifer JONES MD May 27, 2021 12:53 [facility]03-01-2022 NoteHNO ID: [id number] Author: Scout Gayle OD Service: ? Author Type: COKE STILL CLEANER Type: Progress Notes Filed: 05/27/2021 1:02 PM [...] all of its relevant components. Scout Gayle, OD May 27, 2021 12:15 [facility]11-10-2021 NotePROCEDURE: XR KNEE LT 3V HISTORY: [...] Electronically authenticated by: CIARRA [place] Date: 2021-02-05 16:48[facility] Diagnosis Combined forms of age-related cataract of both eyes Other and combined forms of senile cataract Combined forms of age-related cataract of both eyes Other and combined forms of senile cataract Combined forms of age-related cataract of both eyes Other and combined forms of senile cataract [facility]* Diagnosis Pre-op evaluation- Primary Preoperative examination, unspecified Cataract of both eyes, unspecified cataract type Other hyperlipidemia Complex regional pain syndrome type 1, affecting unspecified site Combined forms of age-related cataract of both eyes Other and combined forms of senile cataract Combined forms of age-related cataract of both eyes Other and combined forms of senile cataract documented [facility]* Diagnosis S/P cataract extraction and insertion of intraocular lens, left- Primary 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 Other and combined forms of senile cataract documented in this encounter [facility] note* Diagnosis S/P cataract extraction and insertion of intraocular lens, left- Primary 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 documented in this encounter [facility] noteNo InformationNortFirst [facility] Other Evaluation noteNo assessment information available [facility] Work Phone: Evaluation note* Diagnosis Onset Date Resolution Status Acute kidney injury acute Acute metabolic encephalopathy acute Chronic disease anemia acute Multifocal pneumonia acute Sepsis acute [facility] Work Phone: Hisbpsl general Narrative - Reported* Type Description Date Medical History hypertension Medical History hypercholesterolemia Medical History neuropathy Medical History macular degeneration Surgical History C section 1966 Surgical History bilateral mastectomy 1999 [facility] Other Hisexcn general Narrative - Reported* Type Description Date Medical History hypertension Medical History hypercholesterolemia Medical History neuropathy Medical History macular degeneration Surgical History C section 1966 Surgical History bilateral mastectomy 2000 Surgical History [facility] Other Hisncpo general Narrative - Reported* Type Description Date Medical History hypertension Medical History hypercholesterolemia Medical History neuropathy Medical History macular degeneration Surgical History C section 1966 Surgical History bilateral mastectomy 1999 Surgical History [facility] Hospitalization History see surgical history [facility] Other Advance Directives Documents on File Type Date Recorded Patient Asparagus Cutter Expl anation Advance Directive(s) 07/08/2021 9:01 AM Advance Directive(s) 07/08/2021 10:19 AM Documents on File Type Date Recorded Patient Asparagus Cutter Expl anation Advance Directive(s) 08/06/2021 9:07 AM Advance Directive(s) 08/06/2021 9:08 AM Advance Directive(s) 07/08/2021 9:01 AM Advance Directive(s) 07/08/2021 10:19 AM Documents on File Type Date Recorded Patient Asparagus Cutter Expl anation Advance Directive(s) 08/20/2021 9:02 AM [...] the event of a Fluress shortage, administer [place]-Fluor 1 drop into both eyes as directed [...] Specified Unknown Malignant neoplasm of breast Unknown Relationship Condition Age at Onset Recorded Date/T clifford sister Malignant neoplasm of breast Unknown family member Malignant neoplasm of breast Unknown mother Asthma Unknown father Myocardial infarction Unknown brother Diabetes mellitus Unknown brother Heart disease Unknown daughter Malignant neoplasm of breast Unknown father Unknown Heart disease Unknown mother Unknown Malignant neoplasm of breast Unknown Chief Complaint and Reason for Visit Chief Complaint Knee Pain M17.12 Chief Complaint r06.02 r61 Chief Complaint r06.02 r61 R06.02 R61 I27.20 Chief Complaint Amb Documentation Amb Documentation Hospital Follow up Unknown Reason for Visit Acute kidney injury Acute metabolic encephalopathy Chronic disease anemia Multifocal pneumonia Sepsis Chief Complaint Admit Date Wellness March 06, 2024 1 1:41am Reason for Visit Admit Date Chronic thoracic back pain March 06, 2024 11:41am Left wrist pain March 06, 2024 1 1:41am Medicare annual wellness visit, subseque nt March 06, 2024 11:41am 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 Ezequiel noris 2024 9:25am Constipation April 26, 2024 9 :25am Encounter for palliative care April 262024 9:25am Chief Complaint Admit Date Patient here for a 2 month f/u May 9:46am Reason for Visit Admit Date 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 [facility] 2024 9:46am Arthritis of carpometacarpal (CMC) joint of left thumb June 27, 2024 1:57pm Arthritis of vhfhpifb-lhiingaae-khhjoxxv d joint of left hand June 27, 2024 1:57pm Left hand pain June 27, 2024 1:57 pm Confusion July 25, 2024 10: 55am Cough July 25, 2024 10: 55am Fall July 25, 2024 10: 55am Rib fracture July 25, 2024 10: 55am CHF (congestive heart failure) August 01, 2024 1:31pm Edema August 01, 2024 1:31pm Reason for Referral Reason *FU 03/16 Dr Reed in [place] Diagnosis 1 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 MRI pending. 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) Referral Organization [facility] Geronimo liriano Referring Provider First Name Oumar Referring Provider Last Name Lyric Referring Provider Specialty [facility] Organization [facility] Referred Provider Tessa Espinal Referred Address [address] [place], [place],[address] Referred Provider Specialty Neurology Referral Priority Routine General Notes AlenMacy lopez 03:49:19 PM >received today, attachments made, notes locked, referral faxed Additional Source Comments Source Comments (unrecognize d section and content) In the event this informatio n is protected by the Federal Confidentiality of Alcohol and Drug Abuse Patient Records regulations: The Federal rules restrict any use of the information to criminally investigate or prosecute any alcohol or drug abuse patient.German HospitalIn the event this information is protected by the Federal Confidentiality of Alcohol and Drug Abuse Patient Records regulations: The Federal rules restrict any use of the information to criminally investigate or prosecute any alcohol or drug abuse patient.German HospitalIn the event this information is protected by the Federal Confidentiality of Alcohol and Drug Abuse Patient Records regulations: The Federal rules restrict any use of the information to criminally investigate or prosecute any alcohol or drug abuse patient.German HospitalIn the event this information is protected by the Federal Confidentiality of Alcohol and Drug Abuse Patient Records regulations: The Federal rules restrict any use of the information to criminally investigate or prosecute any alcohol or drug abuse patient.[facility] Reason for Visit (unrecogniz ed section and content) Reason Comments Pre-Op Exam Reason Comments Anesthesia Consult Reason Comments Post-op (Ophthalmology) Left Eye One day s/p cataract surgery with IOL Reason Comments Post-op (Ophthalmology) Left Eye s/p Pha co + PC IOL OS 08-06-21 Specialty Diagnoses / Procedures Referred By Frank galvez Referred To Contact [facility] Diagnoses Combined forms of age-related cataract of both eyes Procedures XCAPSL CTRC RMVL INSJ IO LENS PROSTH W/O ECP OPH BMTRY PRTL COHER INTRFRMTRY IO LENS PWR LEO PHACOEMULSIFICATION CATARACT IMPLANT INTRAOCULAR LENS W/O ENDOSCOPIC CYCLOPHOTOCOAGULATION OPHTHALMIC BIOMETRY BY PARTIAL COHERENCE INTERFEROMETRY W/INTRAOCULAR LENS POWER CALCULATION [facility] [address] [place] [address] Referral ID Status Reason Start Date Expiration Date Visits Re quested Visits Authorized [id number] 1 1 Care Teams (unrecognized sec tion [...] 2023 End: June 15, 2023 Team Status: Inactive Member Role Status Dates Oumar Gunter MD Primary Care Provider Active Miguel Schultz II, MD Attending Provider Active Zinc Plate Grainer Relationship Specialty Start Date End Date Oumar Gunter MD [address] [facility] [place] [address] PCP - General Family Practice 12/25/10 Zinc Plate Grainer Relationship Specialty Start Date End Date Oumar Gunter MD [address] [facility] [place] [address] PCP - General Family Practice 12/25/10 Zinc Plate Grainer Relationship Specialty Start Date End Date Oumar Gunter MD [address] [facility] [place] [address] PCP - General Family Practice 12/25/10 Zinc Plate Grainer Relationship Specialty Start Date End Date Oumar Gunter MD [address] [facility] [place] [address] PCP - General Family Practice 12/25/10 Team Status: Inactive Member Role Status Dates Oumar Gunter MD Primary Care Provider Active Linda Renteria MD Attending Provider Active Team Status: Inactive Member Role Status Nomi Gunter MD Primary Care Provider Active Linda Renteria MD Attending Provider, Referring Provi hailee Active Team Status: Active Member Role Status Nomi Renteria MD Resistance Brazer Active Oumar Gunter MD Primary Care Provider Active Team Status: Active Member Role Status Nomi Gunter MD Primary Care Provider Active Start: March 01, 2024 Fidelina Escobar MD Attending Provider Active St art: March 01, 2024 Team Status: Inactive Member Role Status Nomi Gunter MD Primary Care Provide r, Attending Provider Active Start: March 06, 2024 End: March 06, 2024 Team Status: Inactive Member Role Status Nomi Gunter MD Primary Care Provider Active Start: April 26, 2024 End: April 26, 2024 Maria Victoria Uribe APRN Attending Provider Active Start: April 26, 2024 End: April 26, 2024 Team Status: Inactive Member Role Status Nomi Gunter MD Primary Care Provider Active Start: May 05, 2024 End: May 05, 2024 Maria Victoria Uribe APRN Attending Provider Active Start: May 05, 2024 End: May 05, 2024 Team Status: Inactive Member Role Status Nomi Gunter MD Primary Care Provider Active Start: May 09, 2024 End: May 09, 2024 Maria Victoria Uribe APRN Attending Provider Active Start: May 09, 2024 End: May 09, 2024 Team Status: Inactive Member Role Status Nomi Gunter MD Primary Care Provider Active Start: June 23, 2024 End: June 23, 2024 Maria Victoria Uribe APRN Attending Provider Active Start: June 23, 2024 End: June 23, 2024 Team Status: Active Member Role Status Nomi Gunter MD Primary Care Provider Active Start: June 27, 2024 Paty Booth MD Attending Provider Active Start: June 27, 2024 Team Status: Inactive Member Role Status Nomi Gunter MD Primary Care Provider Active Start: June 27, 2024 End: June 27, 2024 Paty Booth MD Attending Provider Active Start: June 27, 2024 End: June 27, 2024 Team Status: Active Member Role Status Dates Oumar Gunter MD Primary Care Provider Active Start: July 18, 2024 Nina Paulino CMA Attending Provider Active Start: July 18, 2024 Team Status: Inactive Member Role Status Dates Oumar Gunter MD Primary Care Provide r, Attending Provider Active Start: July 25, 2024 End: July 25, 2024 Team Status: Active Member Role Status Dates Oumar Gunter MD Primary Care Provide r, Attending Provider Active Start: July 26, 2024 Team Status: Active Member Role Status Dates Oumar Gunter MD Primary Care Provider Active Start: July 27, 2024 Raghav Ferreira MD Attending Provider Active Start: July 27, 2024 Team Status: Active Member Role Status Dates Oumar Gunter MD Primary Care Provider Active Start: July 28, 2024 Pancho Buckner MD Attending Provider Active Star t: July 28, 2024 Team Status: Inactive Member Role Status Dates Oumar Gunter MD Primary Care Provide r, Attending Provider Active Start: August 01, 2024 End: August 01, 2024 INFORMATION SOURCE (unrecogn ized section and content) DATE CREATED AUTHOR 08/21/[address] [facility] DATE CREATED AUTHOR AUTHOR'S ORGANIZ ATION 02/03/2022 [facility] DATE CREATED AUTHOR AUTHOR'S ORGANIZ ATION 06/28/2024 [facility] Goals (unrecognized section and content) Goals may [...] BE BASED ON THE PRIMARY CLINICAL RECORDS. [employer] provides no warranty or guarantee of the accuracy or completeness of information in this document.
[2024-08-11 09:03] LABS: Basophils Absolute Auto 0.1 10^3/uL (0.0-0.1); Basophils Percent Auto 0.9 % (0.2-2.0); Eosinophils Absolute Auto 0.3 10^3/uL (0.0-0.7); Eosinophils Percent Auto 3.8 % (0.9-7.0); Hematocrit 37.9 % (36.0-48.0); Hemoglobin 11.7 g/dL (12.0-16.0); Immature Granulocytes Abs Auto 0.06 10^3/uL (0.00-0.03); Immature Granulocytes Pct Auto 0.7 % (0.0-0.5); Lymphocytes Absolute Auto 2.9 10^3/uL (1.2-3.8); Lymphocytes Percent Auto 35.7 % (20.5-60.0); Mean Corpuscular HGB Conc 30.9 g/dL (29.9-35.2); Mean Corpuscular Hemoglobin 30.2 pg (26.7-34.0); Mean Corpuscular Volume 97.9 fL (81.0-99.0); Mean Platelet Volume 9.9 fL (9.5-13.5); Monocytes Absolute Auto 0.6 10^3/uL (0.3-0.8); Monocytes Percent Auto 7.5 % (1.7-12.0); Neutrophils Absolute Auto 4.2 10^3/uL (1.4-6.5); Neutrophils Percent Auto 51.4 % (43.0-75.0); Platelet Count 318 10^3/uL (150-450); Red Blood Count 3.87 10^6/uL (4.20-5.40); Red Cell Distribution Width 13.2 % (11.0-15.0); White Blood Count 8.1 10^3/uL (4.0-11.0)
[2024-08-11 09:31] LABS: Alanine Aminotransferase 29 U/L (14-59); Albumin Globulin Ratio 1.1; Albumin Level 3.8 g/dL (3.4-5.0); Alkaline Phosphatase 82 U/L (46-116); Aspartate Amino Transferase 21 U/L (15-37); BUN Creatinine Ratio 21.8; Bilirubin Total 0.5 mg/dL (0.2-1.0); Calcium 9.4 mg/dL (8.5-10.1); Carbon Dioxide 34.1 mmol/L (21.0-32.0); Chloride 103 mmol/L (98-107); Estimated GFR (African America 47 (>=60 mL/min/1.73m^2); Estimated GFR (Non-African Ame 38 (>=60 mL/min/1.73m^2); Globulin 3.4 g/dL; Glucose 107 mg/dL (74-106); Potassium 5.1 mmol/L (3.5-5.1); Sodium 141 mmol/L (136-145); Total Protein 7.2 g/dL (6.4-8.2)
[2024-08-11 09:34] LABS: C Reactive Protein <0.50 mg/dL (<=0.50)
[2024-08-11 09:50] LABS: Percent Iron Saturation 26.4 %
[2024-08-11 10:55] LABS: Erythrocyte Sedimentation Rate 28 mm/hr (<=30)
[2024-08-12 06:08] LABS: Vitamin B12 1895 pg/mL (232-1245)
== END 2024-08-11 08:26 | disposition home or self-care (01) ==
LOC: LAB 08:28
PROVIDERS: PCP Family Medicine; Visit Provider Internal Medicine Hematology & Oncology
DX: D64.9 Anemia, unspecified (principal); Z85.3 Personal history of malignant neoplasm of breast; D72.829 Elevated white blood cell count, unspecified
CPT/HCPCS: 80053; 82607; 82728; 83540; 83550; 85025; 85652; 86140

== ENCOUNTER 2024-08-15 07:50 | Outpatient (RCR) | payer MEDICARE, SELFPAY | END 2024-08-16 08:05 | disposition home or self-care (01) | LOC: HEMC 07:50 | PROVIDERS: PCP Family Medicine; Visit Provider Internal Medicine Hematology & Oncology | DX: D64.9 Anemia, unspecified (principal); Z85.3 Personal history of malignant neoplasm of breast; D72.829 Elevated white blood cell count, unspecified; Z90.13 Acquired absence of bilateral breasts and nipples; J44.9 Chronic obstructive pulmonary disease, unspecified; E78.5 Hyperlipidemia, unspecified; I10 Essential (primary) hypertension; Z87.01 Personal history of pneumonia (recurrent); G62.9 Polyneuropathy, unspecified | CPT/HCPCS: G0463 ==

== ENCOUNTER 2025-01-25 14:54 | Outpatient (OUT) | payer MEDICARE, SELFPAY ==
--- OUTSIDE RECORDS SUMMARY | 2023-03-04 10:40 | XMS_ITS | Continuity of Care Document ---
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 Name Role Phone León Castaneda MD, May Unavailable Unavailable Allergies, Adverse Reactions, Alerts Substance Reaction Status Criticality No Known Drug Allergies Active No I nformation Medications Medication Instructions Dosage Effective Dates (start - stop) Status Comments omeprazole 20 mg capsule,delayed release take 1 capsule by oral route every day before a meal 20 MG - Active lisinopril 5 mg tablet take 1 tablet by oral route every day 5 MG - Active naproxen 250 mg tablet take 1 tablet by oral route 2 times every day with food 250 MG - Active gabapentin 400 mg capsule take 1 Capsule by oral route 3 times every day - Active OXYCODONE HCL (unknown strength) take 1 capsule by oral route every 6 hours as needed for pain Not Available - Active melatonin 10 mg capsule hs - Active aspirin 81 mg Tab, Delayed Release take 1 tablet (81MG) by oral route every day 81 MG - Active pravastatin 10 mg Tab take 1 tablet (10MG) by oral route every day 10 MG - Active Procedures Procedure Date Intravitreal Injection Of Phamacologic A gent Ophthal DX Image Post Retina I And R Uni Or Bi Eylea 1mg Pre-filled Syringe Intravitreal Injection Of Phamacologic A gent Ophthal DX Image Post Retina I And R Uni Or Bi Eylea 1mg Pre-filled Syringe Intravitreal Injection Of Phamacologic A gent Ophthal DX Image Post Retina I And R Uni Or Bi Eylea Sample Drug OFFICE/OUTPATIENT VISIT, EST, Moderate A Void Ticket Ophthal DX Image Post Retina I And R Uni Or Bi Eye Exam Established Patient Comprehensi ve 1 Or More Visits Ophthal DX Image Post Retina I And R Uni Or Bi Eye Exam Established Patient Comprehensi ve 1 Or More Visits Ophthal DX Image Post Retina I And R Uni Or Bi Eye Exam Established Patient Comprehensi ve 1 Or More Visits Ophthal DX Image Post Retina I And R Uni Or Bi Eye Exam Established Patient Comprehensi ve 1 Or More Visits Ophthal DX Image Post Retina I And R Uni Or Bi Eye Exam Established Patient Comprehensi ve 1 Or More Visits Ophthal DX Image Post Retina I And R Uni Or Bi Eye Exam Established Patient Comprehensi ve 1 Or More Visits Fluorescein Angiography With I And R Uni Or Bi Fundus Photography With I And R Bilatera l Eye Exam Established Patient Comprehensi ve 1 Or More Visits Intravitreal Injection OCT Eylea Aflibercept Medical Eye Exam, Established 9 Intravitreal Injection OCT Eylea Aflibercept Medical Eye Exam, Est With Tx 8 Intravitreal Injection OCT Eylea Aflibercept Medical Eye Exam, Established 8 Intravitreal Injection OCT Eylea Aflibercept Medical Eye Exam, Established 8 Intravitreal Injection OCT Eylea Aflibercept Office Visit, Low Intravitreal Injection OCT Eylea Aflibercept Intravitreal Injection OCT Eylea Aflibercept Intravitreal Injection OCT Medical Eye Exam, Established 7 EYE SERVICE OR PROCEDURE Intravitreal Injection OCT Lucentis Ranibizumab .5 Intravitreal Injection OCT Lucentis Ranibizumab .5 Medical Eye Exam, Established 7 Intravitreal Injection OCT Lucentis Ranibizumab .5 Intravitreal Injection OCT Lucentis Ranibizumab .5 Medical Eye Exam, Established 7 Intravitreal Injection OCT Lucentis Ranibizumab .5 Intravitreal Injection OCT Lucentis Ranibizumab .5 Medical Eye Exam, Established 6 Intravitreal Injection OCT Lucentis Ranibizumab .5 Intravitreal Injection Lucentis Ranibizumab .5 OCT Intravitreal Injection OCT Lucentis Ranibizumab .5 Intravitreal Injection Fluorescein Angiography Fluorescein Angiography Fundus Photos Lucentis Ranibizumab .5 Intravitreal Injection Lucentis Ranibizumab .5 OCT Medical Eye Exam, Established 6 Intravitreal Injection Lucentis Ranibizumab .5 OCT Medical Eye Exam, Established With Tx Oc Intravitreal Injection OCT Lucentis Ranibizumab .5 Medical Eye Exam, Established With Tx Ju Intravitreal Injection Fluorescein Angiography Fluorescein Angiography Fundus Photos Lucentis Ranibizumab .5 Medical Eye Exam, Established Intravitreal Injection OCT Lucentis Ranibizumab . Medical Eye Exam, Established With Tx Roger Intravitreal Injection OCT Lucentis Ranibizumab .5 Fluorscein Angiography Fluorscein Angiography Fundus Photos Intravitreal Injection Ranibizumab injection OCT Intravitreal Injection Ranibizumab injection Office Visit, Low Intravitreal Injection Lucentis Ranibizumab Medical Eye Exam, Established With Tx Vaibhav OCT Intravitreal Injection Ranibizumab injection Medical Eye Exam, Established With Tx Derek OCT Medical Eye Exam, Established With Tx Fluorscein Angiography Fluorscein Angiography Fundus Photos Medical Eye Exam, Established 3 OCT Intravitreal Injection Ranibizumab injection EYE EXAM ESTABLISHED PAT OCT Intravitreal Injection Unclassified biologics EYE EXAM ESTABLISHED PAT OCT Intravitreal Injection Unclassified biologics EYE EXAM ESTABLISHED PAT OCT Intravitreal Injection Unclassified biologics Office Visit, Low OCT Intravitreal Injection Unclassified biologics Office Visit, Moderate Fluorscein Angiography EYE EXAM WITH PHOTOS Intravitreal Injection Unclassified biologics Eye Exam With Treatment OCT Eye Exam With Treatment Fluorscein Angiography Fluorscein Angiography Fundus Photos Advance Directives Directive Yes / No Effective Date File Name No Information Encounters Encounter Description Practice Location Reason(s) For Visit Diagnoses Date Provider Providers Copied on Encounter [facility], [address] [place], [place], [facility], tel:[phone] RVA Whigham Exudative ARMD (chief complaint) Exdtve age-rel mclr degn, left eye, with actv chrdl neovas 3 El Rashedy July. [address], [address] [facility], [place], [place], [id number] , [place]. tel:[phone] Referring Provider: July León Castaneda, [address] [facility], [place], [address] . tel:[phone] [facility], [address] [place], [place], [facility], [phone] RVA Iris AMD (chief complaint) Exdtve age-rel mclr degn, left eye, with actv chrdl neovas 3 Alkaliphilip Michaelashwin. [address], [address] [facility], [place], [place], [id number] , [place]. tel:[phone] Referring Provider: Zabrina Aleman, [address] [facility], [place], [address] . tel:[phone] OFFICE/OUTPA TIENT VISIT, EST, Moderate [facility], [address] [place], [place], [facility], [place] tel:[phone] RVA Whigham AMD (chief complaint) Nexdtve 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 degn, right eye, intermed dry stageExdtve age-rel mclr degn, left eye, with actv chrdl neovas 3 El Rashedy July. [address], [address] [facility], [place], [place], [id number] , [place]. tel:[phone] Referring Provider: July León Castaneda, [address] [facility], [place], [address] . tel:[phone] [facility] Physician s, [address] [place], [address], [place] tel:[phone] RVA Iris NO DX NEEDED 3 León Castaneda July. [address] [facility], [place], [place], [id number] , [place]. tel:[phone] Referring Provider: July León Castaneda, [address] [facility], [place], [address] . tel:[phone] [facility] Physician s, [address] [place], [address], [place] [phone] RVA Whigham AMD (chief complaint)Inc reased Vision (chief complaint) Exdtve age-rel mclr degn, left eye, with inact chrdl neovasNexdtve 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 degn, right eye, intermed dry stageVitreous degeneration, bilateral 2 Dexter Edgardo. [address], [address] [facility], [place], [place], [id number] , [place]. [phone] Referring Provider: [address], [place], [address]. tel:[phone] [facility], [address] [place], [address], [place] tel:[phone] RVA Iris AMD (chief complaint) Exdtve age-rel mclr degn, left eye, with inact chrdl neovasNexdtve 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 degn, right eye, intermed dry stageVitreous degeneration, bilateralPresence of intraocular lens 2 Dexter Edgardo. [address], [address] [facility], [place], [place], [id number] , [place]. [phone] Referring Provider: [place] [address] [place], [address]. tel:[phone] [facility] Physician s, [address] [place], [address], [place] tel: [phone] RVA Whigham AMD (chief complaint)Sta ble Vision (chief complaint) Exdtve age-rel mclr degn, left eye, with inact chrdl neovasNexdtve 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 degn, right eye, intermed dry stageAge-related nuclear cataract, bilateral Jun- 2 Dexter Edgardo. [address], [place], [place], [id number] , [place]. tel: [phone] Referring Provider: Atif Dang, [address] , [place], [address]. tel:[phone] [facility] Physician s, [address] [place], [address], [place] tel: [phone] RVA Iris 1 yr fu due to AMD (chief complaint)Sta ble vision (chief complaint) Exdtve age-rel mclr degn, left eye, with inact chrdl neovasNexdtve 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 degn, right eye, intermed dry stageVitreous degeneration, bilateralAge-relat ed nuclear cataract, bilateral 1 Dexter Edgardo. [address], [place], [place], [id number] , [place]. tel: [phone] Referring Provider: Atif Dang, [address], [place], [address]. tel:[phone] [facility] Physician s, [address] [place], [address], [place] tel: [phone] RVA Iris AMD (chief complaint)sta ble vision (chief complaint) Exdtve age-rel mclr degn, left eye, with inact chrdl neovasNexdtve 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 degn, right eye, intermed dry stageAge-related nuclear cataract, bilateralVitreous degeneration, bilateral 0 Dexter Edgardo. [address], [address], [place], [place], [address] , [place]. tel: [phone] Referring Provider: Edgardo Berg, [address] [facility], [place], [address] . tel:[phone] [facility], [address] [place], [address], [place] tel:[phone] RVA Whigham macular degeneration followup (chief complaint) Exdtve age-rel mclr degn, left eye, with inact chrdl neovasNexdtve 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 degn, right eye, intermed dry stageCombined forms of age-related cataract, bilateral 0 Dexter Reynoso. [address], [address] [facility], [place], [place], [id number] , . tel:[phone] Referring Provider: Edgardo Berg, [address] [facility], [place], [address] . tel:[phone] [facility], [address] [place], [address], [place] tel:[phone] RVA Whigham macular degeneration (chief complaint) Exdtve age-rel mclr degn, left eye, with inact chrdl neovasNexdtve 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 degn, right eye, intermed dry stageOther specified retinal disordersCombined forms of age-related cataract, bilateral 9 Dexter Reynoso. [address], [address] [facility], [place], [place], [id number] , [place]. [phone] Referring Provider: Atif Dang, [address] , [place], [address]. tel:[phone] [facility], [address] [place], [address], [place] tel:[phone] RVA Whigham macular degeneration (chief complaint) Exdtve age-rel mclr degn, left eye, with actv chrdl neovasNexdtve 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 degn, right eye, intermed dry stageOther specified retinal disordersAge-relat ed nuclear cataract, bilateral 9 Dexter Reynoso. [address], [address] [facility], [place], [place], [id number] , [place]. tel:[phone] Referring Provider: Atif Dang, [address] , [place], [address]. tel:[phone] [facility], [address] [place], [address], [place] tel:[phone] RVA Whigham macular degeneration (chief complaint)gurpreet ater (chief complaint)rep orts no visual changes (chief complaint) Exudative age-related macular degeneration, left eye, with active choroidal neovascularization Nexdtve 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 degn, right eye, intermed dry stageOther specified retinal disordersAge-relat ed nuclear cataract, bilateral 8 Dexterrene Reynoso. [address], [address] [facility], [place], [place], [id number] , [place]. tel:[phone] Referring Provider: Edgardo Berg, [address] [facility], [place], [address] . tel:[phone] [facility], [address] [place], [address], [place] tel:[phone] RVA Whigham macular degeneration (chief complaint)den ies vision changes (chief complaint) Exudative age-related macular degeneration, left eye, with active choroidal neovascularization Nexdtve 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 degn, left eye, intermed dry stageOther specified retinal disordersAge-relat ed nuclear cataract, bilateral 8 Dexterrene Reynoso. [address], [address] [facility], [place], [place], [id number] , [place]. tel:[phone] Referring Provider: Edgardo Berg, [address] [facility], [place], [address] . tel:[phone] [facility], [address] [place], [address], [place] tel:[phone] RVA Whigham macular degeneration (chief complaint)sta ble vision (chief complaint) Exudative age-related macular degeneration, left eye, with active choroidal neovascularization Nexdtve 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 degn, left eye, intermed dry stageSecondary pigmentary degeneration, left eyeAge-related nuclear cataract, bilateral 8 Dexterrene Reynoso. [address], [address] [facility], [place], [place], [id number] , [place]. tel: [phone] Referring Provider: Edgardo Berg, [address] [facility], [place], [address] . tel:[phone] Office Visit, Low [facility], [address] [place], [address], [place] tel: [phone] RVA Whigham macular degeneration (chief complaint) Exdtve age-rel mclr degn, left eye, with actv chrdl neovasSecondary pigmentary degeneration, left eyeNonexudative age-related macular degeneration, right eye, early dry stageAge-related nuclear cataract, bilateral 7 Dexterrene Reynoso. [address], [address] [facility], [place], [place], [id number] , [place]. tel:[phone] Referring Provider: Edgardo Berg, [address] [facility], [place], [address] . tel:[phone] [facility], [address] [place], [address], [place] tel: [phone] RVA Whigham macular degeneration (chief complaint)amilcar rry vision (chief complaint) Exdtve age-rel mclr degn, left eye, with actv chrdl neovas 7 Dexter Reynoso. [address], [address] [facility], [place], [place], [id number] , [place]. tel:[phone] Referring Provider: Edgardo Berg, [address] [facility], [place], [address] . tel:[phone] [facility], [address] [place], [address], tel:[phone] RVA Iris macular degeneration (chief complaint)amilcar rry vision (chief complaint) Exdtve age-rel mclr degn, left eye, with actv chrdl neovas 7 Dexter Reynoso. [address], [address], [id number] , . tel:[phone] Referring Provider: Edgardo Berg, [address] [place] [address], [place], [address] . tel:[phone] [facility], [address] [place], [place], [facility], tel:[phone] RVA Whigham macular degeneration (chief complaint)pat ient reports slight improvement in vision (chief complaint)no visual changes noted (chief complaint) Exudative age-related macular degeneration, left eye, with active choroidal neovascularization Secondary pigmentary degeneration, left eyeNonexudative age-related macular degeneration, right eye, early dry stageAge-related nuclear cataract, bilateral 7 Dexter Reynoso. [address], [address], [id number] , . tel:[phone] Referring Provider: Edgardo Berg, [address] [place] [address], [place], [address] . tel:[phone] [facility] Physician s, [address] [place], [place], [facility], [place] tel:[phone] RVA Whigham macular degeneration (chief complaint)rep orts no visual changes (chief complaint) Exdtve age-rel mclr degn, left eye, with actv chrdl neovas 7 Dexter Reynoso. [address], [address], [id number] , [place]. tel:[phone] Referring Provider: Edgardo Berg, [address] [place] [address], [place], [address] . tel:[phone] [facility], [address] [place], [facility], [place] tel: [phone] RVA Whigham macular degeneration (chief complaint)den ies vision change (chief complaint) Exudative age-related macular degeneration, left eye, with active choroidal neovascularization Secondary pigmentary degeneration, left eyeNonexudative age-related macular degeneration, right eye, early dry stageAge-related nuclear cataract, bilateral 7 Dexter Reynoso. [address], [address] [facility], [place], [place], [id number] , [place]. tel: [phone] Referring Provider: Edgardo Berg, [address] [place] [address], [place], [address] . tel:[phone] [facility], [address] [place], [place], [facility], tel: [phone] RVA Whigham macular degeneration (chief complaint)vis ion fluctuations (chief complaint) Exdtve age-rel mclr degn, left eye, with actv chrdl neovas 7 Dexter Reynoso. [address] [place] [address], [id number] , [place]. tel: [phone] Referring Provider: Edgardo Berg, [address], [address] . tel:[phone] [facility], [address] [place], [facility], [place] tel: [phone] RVA Iris macular degeneration (chief complaint)den ies visual changes (chief complaint) Exdtve age-rel mclr degn, left eye, with actv chrdl neovasSecondary pigmentary degeneration, left eyeNonexudative age-related macular degeneration, right eye, early dry stageAge-related nuclear cataract, bilateral 7 Dexter Reynoso. [address] [place] [address], [id number] , [place]. tel:[phone] Referring Provider: Edgardo Berg, [address] [facility], [place], [address] . tel:[phone] [facility], [address] [place], [address], [place] tel:[phone] RVA Whigham macular degeneration (chief complaint)sta ble vision (chief complaint) Exdtve age-rel mclr degn, left eye, with actv chrdl neovas Nov-3 6 Dexter Reynoso. [address], [address] [facility], [place], [place], [id number] , [place]. tel:[phone] Referring Provider: Edgardo Berg, [address] [facility], [place], [address] . tel:[phone] [facility], [address] [place], [place], [facility], [place] [phone] RVA Iris macular degeneration (chief complaint)no noted visual changes (chief complaint) Exudative age-related macular degeneration, left eye, with active choroidal neovascularization Nonexudative age-related macular degeneration, right eye, early dry stageSecondary pigmentary degeneration, left eyeAge-related nuclear cataract, bilateral Dec- 6 Dexter Reynoso. [address], [address] [facility], [place], [place], [id number] , . tel:[phone] Referring Provider: Edgardo Berg, [address] [facility], [place], [address] . tel:[phone] [facility], [address] [place], [address], [place] tel:[phone] RVA Whigham blurry vision (chief complaint)mac ular degeneration (chief complaint) Exudative age-related macular degeneration 6 Dexter Reynoso. [address], [address] [facility], [place], [place], [id number] , [place]. tel:[phone] Referring Provider: Edgardo Berg, [address] [facility], [place], [address] . tel:[phone] [facility], [address] [place], [address], [place] tel:[phone] RVA Whigham macular degeneration (chief complaint)rep orts no vision changes (chief complaint) Exudative age-related macular degeneration Sep-0 6 Dexter Reynoso. [address], [address] [facility], [place], [place], [id number] , [place]. tel:[phone] Referring Provider: Edgardo Berg, [address] [facility], [place], [address] . tel:[phone] [facility], [address] [place], [address], [place] tel:[phone] RVA Iris macular degeneration (chief complaint)den ies vision changes (chief complaint) Exudative age-related macular degeneration July-0 6 Dexter Reynoso. [address] [place] [address], [id number] , [place]. tel:[phone] Referring Provider: Edgardo Berg, [address] [facility], [place], [address] . tel:[phone] [facility], [address] [place], [place], [facility], tel:[phone] RVA Iris Injection Only of Lucentis 0.5 mg for ARMD (chief complaint)gurpreet ater (chief complaint)den ies visual changes (chief complaint) Exudative age-related macular degenerationNonexu dative age-related macular degeneration May-0 6 Dexter Reynoso. [address], [address] [facility], [place], [place], [id number] , [place]. tel:[phone] Referring Provider: Edgardo Berg, [address] [facility], [place], [address] . tel:[phone] [facility], [address] [place], [address], [place] tel:[phone] RVA Whigham macular degeneration (chief complaint)dec reased vision (chief complaint)vis ion change (chief complaint) Exudative age-related macular degenerationNonexu dative age-related macular degenerationSecond noris pigmentary degeneration, left eyeAge-related nuclear cataract, bilateral 6 Dexter Reynoso. [address] [facility], [place], [place], [id number] , [place]. tel:[phone] Referring Provider: Edgardo Berg, [address] [place] [address], [place], [address] . tel:[phone] [facility], [address] [place], [address], [place] tel:[phone] RVA Whigham macular degeneration (chief complaint)den ies vision changes (chief complaint) Exudative age-related macular degenerationNonexu dative age-related macular degenerationSecond noris pigmentary degeneration, left eyeVitreous degeneration, bilateralAge-relat ed nuclear cataract, bilateral Dec- 5 Dexter Reynoso. [address], [address] [facility], [place], [place], [address] , [place]. tel:[phone] Referring Provider: Edgardo Berg, [address] [address], [place], [address] . tel:[phone] [facility], [address] [place], [address], [place] tel:[phone] RVA Whigham macular degeneration (chief complaint)flu ctuating vision (chief complaint) Exudative macular degeneration of retinaNonexudative macular degeneration of retinaVitreous degenerationSenile nuclear sclerosis 5 Dexter Reynoso. [address], [address] [facility], [place], [place], [id number] , [place]. tel:[phone] Referring Provider: Edgardo Berg, [address] [facility], [place], [address] . tel:[phone] [facility], [address] [place], [address], [place] tel:[phone] RVA Iris macular degeneration (chief complaint)poo r vision (chief complaint) Exudative macular degeneration of retinaNonexudative macular degeneration of retinaVitreous degenerationSenile nuclear sclerosis Jun- 5 Dexter Reynoso. [address], [address], [id number] , [place]. tel: [phone] Referring Provider: Edgardo Berg, [address] [place] [address], [place], [address] . tel:[phone] [facility], [address] [place], [place], [address], [place] tel: [phone] RVA Whigham macular degeneration (chief complaint)sta ble vision (chief complaint) Exudative macular degeneration of retinaNonexudative macular degeneration of retinaVitreous degenerationSenile nuclear sclerosis 5 Dexter Reynoso. [address], [place] [address], [place], [place], [id number] , [place]. tel:[phone] [facility], [address] [place], [address], [place] tel: [phone] RVA Whigham macular degeneration (chief complaint)poo r vision (chief complaint) Exudative macular degeneration of retinaNonexudative macular degeneration of retinaSecondary pigmentary degeneration of retinaSenile nuclear sclerosis Oct-0 8 4 Dexter Reynoso. [address], [place] [address], [place], [place], [id number] , [place]. tel:[phone] Referring Provider: Edgardo Berg, [address] [facility], [place], [address] . tel:[phone] [facility]ician s, [address] [place], [address], [place] tel:[phone] RVA Iris ARMD (chief complaint)dec reased vision (chief complaint) Exudative macular degeneration of retinaNonexudative macular degeneration of retinaSecondary pigmentary degeneration of retinaSenile nuclear sclerosis 4 Dexter Reynoso. [address], [address] [facility], [place], [place], [id number] , [place]. tel:[phone] Referring Provider: Edgardo Berg, [address] [facility], [place], [address] . tel:[phone] [facility] Physician s, [address] [place], [address], [place] tel:[phone] RVA Whigham macular degeneration (chief complaint)amilcar rred vision (chief complaint) Exudative macular degeneration of retinaRetinal edemaNonexudative macular degeneration of retinaSecondary pigmentary degeneration of retina 4 Dexter Reynoso. [address], [address] [facility], [place], [place], [id number] , [place]. tel:[phone] Referring Provider: Edgardo Berg, [address] [facility], [place], [address] . tel:[phone] Office Visit, Low [facility] Physician s, [address] [place], [address], [place] tel:[phone] RVA Whigham Nonexudative macular degeneration of retinaSecondary pigmentary degeneration of retinaExudative macular degeneration of retinaRetinal edema 4 Dexter Reynoso. [address], [address] [facility], [place], [place], [id number] , [place]. tel:[phone] Referring Provider: Edgardo Berg, [address] [facility], [place], [address] . tel:[phone] [facility] Physician s, [address] [place], [address], [place] tel:[phone] RVA Iris Exudative macular degeneration of retinaRetinal edemaNonexudative macular degeneration of retinaSecondary pigmentary degeneration of retina Mar-0 5 4 Dexterrene Reynoso. [address], [address] [facility], [place], [place], [id number] , [place]. tel:[phone] Referring Provider: Edgardo Berg, [address] [place] [address], [address] . tel:[phone] CVP Physician s, [address] [place], [address], [place] tel:[phone] RVA Whigham Retinal edemaNonexudative macular degeneration of retinaSecondary pigmentary degeneration of retinaExudative macular degeneration of retina Dec-0 3 Dexter Reynoso. [address], [address] [place] [address], [id number] , [place]. tel:[phone] Referring Provider: Edgardo Berg, [address] [place] [address], [place], [address] . tel:[phone] [facility] Physician s, [address] [place], [address], [place] tel:[phone] RVA Whigham Exudative macular degeneration of retinaRetinal edemaSecondary pigmentary degeneration of retinaNonexudative macular degeneration of retina Sep-0 3 Dexter Reynoso. [address], [address] [place] [address], [id number] , [place]. tel:[phone] Referring Provider: Edgardo Berg, [address] [place] [address], [address] . tel:[phone] [facility] Physician s, [address] [place], [address], [place] tel:[phone] RVA Whigham Exudative macular degeneration of retinaRetinal edemaSecondary pigmentary degeneration of retinaNonexudative macular degeneration of retina Sep-2 3 Dexter Reynoso. [address], [address], [id number] , [place]. tel:[phone] Referring Provider: Edgardo Berg, [address] [facility], [place], [address] . tel:[phone] CV[facility] Physician s, [address] [place], [address], [place] tel:[phone] RVA Whigham Vitreous degenerationExudat keagan macular degeneration of retinaRetinal edemaSecondary pigmentary degeneration of retinaNonexudative macular degeneration of retina Jun- 3 Dexter Reynoso. [address], [address] [facility], [place], [place], [id number] , [place]. tel:[phone] Referring Provider: Edgardo Berg, [address] [facility], [place], [address] . tel:[phone] CVP Physician s, [address] [place], [address], [place] tel:[phone] RVA Whigham Exudative macular degeneration of retinaRetinal edemaSecondary pigmentary degeneration of retinaVitreous degeneration 3 Dexter Reynoso. [address], [address] [facility], [place], [place], [id number] , [place]. tel:[phone] Referring Provider: Edgardo Berg, [address] [facility], [place], [address] . tel:[phone] CV[facility] Physician s, [address] [place], [address], [place] tel:[phone] RVA Iris Exudative macular degeneration of retinaPVD (Vitreous degeneration)Retin al edemaSecondary pigmentary degeneration of retina 3 Dexter Reynoso. [address], [address] [facility], [place], [place], [id number] , [place]. tel:[phone] Referring Provider: Edgardo Berg, [address] [facility], [place], [address] . tel:[phone] Office Visit, Low [facility] Physician s, [address] [place], [address], [place] tel:[phone] RVA Whigham Exudative macular degeneration of retinaPVD (Vitreous degeneration)Retin al edemaSecondary pigmentary degeneration of retina Nov- 2 Dexter Reynoso. [address], [place] [address], [place], [place], [id number] , [place]. tel: [phone] Referring Provider: Edgardo Berg, [address] [place] [address], [place], [address] . tel:[phone] Office Visit, Moderate CVP Physician s, [address] [place], [address], [place] tel: [phone] RVA Iris Exudative macular degeneration of retinaPVD (Vitreous degeneration)Senil e nuclear sclerosisSecondary pigmentary degeneration of retinaRetinal edema Oct-0 2 Dexter Reynoso. [address], [address], [id number] , [place]. tel: [phone] Referring Provider: Edgardo Berg, [address] [place] [address], [place], [address] . tel:[phone] [facility] Physician s, [address] [place], [address], [place] tel: [phone] NAIF Simmons Vitreous degenerationExudat keagan macular degeneration of retinaSenile nuclear sclerosisSecondary pigmentary degeneration of retina Apr-0 2 Dexter Reynoso. [address], [address], [id number] , [place]. tel: [phone] Referring Provider: Edgardo Berg, [address] [place] [address], [place], [address] . tel:[phone] CV[facility] Physician s, [address] [place], [address], [place] tel:[phone] RVA Iris No Information Apr-0 2-201 2 Dexter Edgardo. [address], [address], [place], [place], [id number] , [place]. tel:[phone] [facility] Physician s, [address] [place], [address], [place] tel: [phone] NAIF Brauny No Information 7 1 Dexter Edgardo. [address], [address], [place], [place], [id number] , [place]. tel: [phone] Referring Provider: Edgardo Berg, [address], [place], [address] . tel:[phone] Family History Family Member Type Diagnosis Age At Onset Paternal Grandfather Problem (finding) Hypertension Sister Problem (finding) Cancer, breast multiple Problem (finding) HBP Father Problem (finding) Hypertension Father Problem (finding) Heart Disease multiple Problem (finding) Cancer Brother Problem (finding) Stroke Immunizations Vaccine Date Status Comments Influenza, seasonal, injectable, 3 yrs or older (36 mos+) FluLaval administered Source: Other Provid er Influenza, seasonal, injectable, 3 yrs or older (36 mos+) FluLaval administered Source: Source Unspe cified Influenza, seasonal, injectable, 3 yrs or older (36 mos+) FluLaval administered Source: Other Provid er Influenza, seasonal, injectable, 3 yrs or older (36 mos+) FluLaval administered Note: Invalid docume nted admin date was . ; Source: Public Agency Influenza, seasonal, injectable, 3 yrs or older (36 mos+) FluLaval administered Note: Invalid docume nted admin date was . ; Source: Other Provider Zoster administered Source: Source Unspecified Payers Payer name Insurance type Covered constitution party ID Authoriza tion(s) [employer] [id number] [employer] [id number] Social History Type Description Quantity Date Captured Comments Alcohol Use Details Caffeine Use Details coffee 2 cups per day Tobacco Use Status Current non-smoker Smoking Status Never smoker Non-Smoking Tobacco Use Details : No Details Available : No Details Available [id number] SexFemale Vital Signs Date / Time: Height Weight BMI Pulse Rate Blood Pressure Temperature Respiratory Rate Body Surface Area Head Circumference Head Circ. Percentile Wt./Paolo. Percentile BMI percentile Pulse Ox Inhaled Ox 3:50 PM 114/71 mm[Hg] Chief Complaint And Reason For Visit From encounter dated '03/04/2023 14:40'. Exudative ARMD (chief complaint). 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 Patient denies any vision changes. Patient denies any floaters or flashes of light. 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 Patient denies any vision changes. Patient denies any floaters or flashes of light. AMD The 77 year old patient presents for treatment of AMD in the left eye. Patient states stable vision since her last visit. No changes or concerns at this time. AMD The 77 year old female presents for evaluation of AMD in the left eye. Patient reports stable vision since her last appointment, and denies new flashes, floaters, and ocular pain. AMD The 76 year old female presents for evaluation of AMD in the left eye. Increased Vision The patient rep orts Increased Vision in both eyes since surgery. No other changes reported. Patient denies eye pain and flashes and floaters. AMD The 76 year old female presents for evaluation of AMD in the right and left eyes. Patient had recent cataract surgery in both eyes since her last appointment here. She reports improved vision, no new problems in either eye. She is still using drops s/p CE OU - she is unsure which drops, and did not bring them with her. AMD The 76 year old female presents for evaluation of AMD in both eyes. Stable Vision The patient is p resent for evaluation of Stable Vision in both eyes. Patient states negative for eye pain, flashes and floaters. 1 yr fu due to AMD The 75 year o ld female is present for her 1 yr fu due to AMD OU. Stable vision The patient is p resent states her vision has been stable in the last year. She states she has no new symptoms. She denies worsening/new distortion OU. It occurs constantly. The condition is unchanged. The condition is associated with daily activities and chores. Patient denies eye pain and flashes. Associated symptoms include: floaters- she does not see them very often- they are stable. AMD The 74 year old female presents for AMD in both eyes. stable vision The patient repo rts stable vision in both eyes since last visit about 6 month(s) ago. It occurs constantly. It affects both near and distance vision. In addition, the condition is associated with daily activities and chores. Patient denies flashes and floaters. macular degeneration followup Th e 74 year old female presents for evaluation of macular degeneration followup in both eyes. The patient reports stable vision since last exam 6 months ago. The patient denies eye pain and flashes. macular degeneration The 73 year old female presents for evaluation of macular degeneration in both eyes. The patient reports a minimal decrease in vision since last exam 6 months ago. She states she missed an appointment for a routine eye exam due to illness and feels her glasses need to be updated for the right eye. It affects both near and far vision. The symptom is constant. In addition, the condition is associated with daily activity and chores. Patient denies eye pain and flashes. macular degeneration The 73 year old female presents for evaluation of macular degeneration in both eyes. The patient is unaware of any vision changes in both eyes since last exam 4 months ago. It affects both near and far vision. The symptom is constant. In addition, the condition is associated with daily activity and chores. Patient denies flashes and eye pain. reports no visual changes The erin camacho reports no visual changes in the right eye since her last visit 4 months ago. It affects both near and far vision. The symptom is constant. The condition is stable. In addition, the condition is associated with daily activity and chores. The patient denies flashes and floaters. floater The patient repo rts a floater in the left eye for years. The onset was gradual. Vision is not affected. The symptom is intermittent. The condition is mild. In addition,the condition is associated with daily activity and chores. The patient denies flashes. macular degeneration The 72 year old female presents for evaluation of macular degeneration in the right eye and left eye. macular degeneration The 72 year old female presents for evaluation of macular degeneration in the right and left eye. Last Eylea injection was 03/31/2017. denies vision changes The patien t denies vision changes in the right and left eye since last visit about 4 months ago. The patient denies flashes, eye pain. stable vision The patient repo rts of stable vision in the right eye and left eye. It started about 2 months ago . It affects both near and far vision. The symptom is constant. It occurs persistently. The patient denies new flashes, eye pain, floaters. macular degeneration The 72 year old female presents for evaluation of macular degeneration in the right eye and left eye. macular degeneration The patient complains of worsening left eye vision over the last few weeks mostly when watching TV. She has floaters in the left eye. Her right eye vision is holding steady. macular degeneration This 71 yea r old female presents for evaluation of macular degeneration in both eyes. blurry vision The patient comp lains of blurry vision in the right eye and left eye. It started about 6 weeks ago. The onset was gradual. It affects both near and far vision. The symptom is constant. It occurs all the time. The condition is mild. The condition is described as fuzzy vision. In addition, the condition is associated with daily activity and chores. macular degeneration The 71 year old female presents for evaluation of macular degeneration in the right eye and left eye. blurry vision The patient repo rts moderate, constant, blurry distance >near vision in both eyes X 1 week. Denies flashes or floaters. macular degeneration The 71 year old female presents for evaluation of macular degeneration in both eyes. no visual changes noted The ranjith ent reports of no visual changes in the right eye. It started about 5 weeks ago. The symptom is frequent. It occurs persistently. The patient denies change in vision, eye pain, flashes and floaters. patient reports slig ht improvement in vision The patient reports slight improvement in vision in the left eye. It started about 5 weeks ago . The symptom is frequent. It occurs persistently. The patient denies change in vision, eye pain, flashes, floaters. macular degeneration The 71 year old female presents for evaluation of macular degeneration in both eyes. reports no visual changes The pa doug reports no visual changes in the right eye and left eye since her last visit 1 month ago. It affects both near and far vision. The symptom is constant. The condition is stable. In addition, the condition is associated with daily activity and chores. The patient denies flashes, floaters. macular degeneration The 71 year old female presents for evaluation of macular degeneration in the right eye and left eye. denies vision change Patient den ies any vision change in either eye since her last visit 6 weeks ago. Patient denies any new flashes, floaters or eye pain. macular degeneration The 71 year old female presents for evaluation of macular degeneration in eyes with possible Lucentis injection OS. vision fluctuations The patient complains of vision fluctuations in both eyes since her last visit 6 weeks ago. Patient states that some days her vision is good other days it can be bad. It affects both near and far vision. The patient denies eye pain, flashes. macular degeneration The 71 year old female presents for treatment of macular degeneration in the left eye with Lucentis .5mg denies visual changes The patien t denies visual changes in the right eye and left eye. It started about 6 weeks ago . It affects both near and far vision. The symptom is constant. The condition is mild. In addition, the condition is associated with daily activity and chores. The patient denies flashes, floaters. macular degeneration The 71 year old female presents for evaluation of macular degeneration in the right eye and left eye. stable vision The patient repo rts stable vision in both eyes since her last visit about 6 weeks ago. She denies flashes, floaters, and eye pain in both eyes. macular degeneration This 70 yea r old female presents for evaluation of macular degeneration in both eyes. no noted visual changes The ranijth ent states of noted visual changes in both eyes since her last visit 2 months ago. It affects both near and far vision. The symptom is constant. It occurs all the time. In addition, the condition is associated with daily activity and chores. The patient denies eye pain, flashes, change in vision, floaters. Patient states she checks [employer] daily, hasn't noticed any changes with the grid.. macular degeneration The 70 year old female presents for evaluation of macular degeneration in both eyes. macular degeneration The 70 year old female presents for evaluation of macular degeneration in the right eye and left eye. blurry vision The patient comp lains of blurry vision in the left > right. It started about 6 weeks ago. The onset was gradual. It affects OS > OD. The symptom is constant. It occurs doing close work. The condition is limiting patient's ability to read. The condition is described as fuzzy vision. In addition, the condition is associated with daily activity and chores. reports no vision changes The erin camacho reports no vision changes in both eyes since her last visit 2 months ago. macular degeneration The 70 year old female presents for evaluation of macular degeneration in both eyes. denies vision changes The patien t denies vision changes in the right eye and left eye since last visit about 2 months ago . It affects both near and far vision. The symptom is constant. The condition is stable. In addition, the condition is associated with daily activity and chores. The patient denies decreased vision, flashes. macular degeneration The 70 year old female presents for evaluation of macular degeneration in the right eye and left eye. denies visual changes The patien t denies visual changes in the right eye. It started about 6 weeks ago. It affects both near and far vision. The symptom is constant. The condition is stable. In addition, the condition is associated with daily activity and chores. The patient denies flashes and floaters. floater The patient comp lains of a floater in the left eye. Has had a floater for years. The onset was sudden. Vision is not affected. The symptom is intermittent. The condition is mild. In addition, the condition is associated with daily activity and chores. The patient denies flashes. Injection Only of Tegan centis 0.5 mg for ARMD The 70 year old female presents for an Injection Only of Lucentis 0.5 mg for ARMD in the left eye. vision change The patient comp lains of gradually decreased right eye vision since her last visit about 3 months ago. It is most noticeable when trying to use her bifocal to read and associates the change with needing her spec Rx updated. No eye pain, flashes, or floaters noted today. decreased vision The patient com plains of recent and gradually decreased left eye vision which she states is normal for her to notice when she is due for her appointment and treatment. It is mostly noticed when watching TV. No eye pain, flashes, or floaters noted today. macular degeneration This 70 yea r old female presents for evaluation of macular degeneration in both eyes. denies vision changes The patien t denies vision changes in the right eye and left eye. It started about 3 months ago . It affects both near and far vision. The symptom is constant. It occurs when focusing. The condition is stable. macular degeneration The 69 year old female presents for evaluation of macular degeneration in the right eye and left eye. fluctuating vision The patient c omplains of fluctuating vision in the right eye and left eye. It started about 3 months ago . The onset was gradual. It affects both near and far vision. The symptom is occasional. The condition is mild. The condition is described as blurring. The patient denies change in vision. macular degeneration The 69 Year s old female presents for evaluation of macular degeneration. here for Dana.5 OS poor vision The patient comp lains of poor vision in the left eye. It affects both near and far vision. The symptom is constant. It occurs daily. The condition is not any better. In addition, the condition is associated with daily activity and chores. The patient denies change in vision. macular degeneration The 69 Year old female presents for evaluation of macular degeneration stable vision The patient feel s her vision has remained stable since her last visit about 3 months ago. She denies flashes, floaters, and eye pain. macular degeneration The 69 year old female presents for evaluation of macular degeneration in both eyes. poor vision The patient comp lains of poor vision in the left eye. The onset was progressive. It affects both near and far vision. The symptom is intermittent. It occurs daily. The condition is moderate. The condition is described as blurring. In addition, the condition is associated with driving at night. The patient denies change in vision. macular degeneration The 68 Year old female presents for evaluation of macular degeneration decreased vision The patient com plains of decreased vision in the left eye. It started about 2 week(s) ago . The onset was gradual. It affects distance vision. The symptom is constant. It occurs all the time. The condition is mild. The condition is described as blurring. In addition, the condition is associated with daily activity and chores. ARMD The 68 year old female presents for evaluation of ARMD in the right eye and left eye. blurred vision The patient comp lains of blurred vision in the right eye and left eye. It started about 9 day(s) ago . The onset was sudden. It affects both near and far vision. The symptom is occasional. It occurs daily. The condition is mild. In addition, the condition is associated with new Rx medication. macular degeneration The 68 year s old female presents for evaluation of macular degeneration in both eyes. 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, left eye, with actv chrdl neovas Return in Related to 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, left eye, with inact chrdl neovas Impression/Plan Related to Prese nce of intraocular lens Impression/Plan Related to Vitre ous degeneration, bilateral Impression/Plan Related to 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, right eye, intermed dry stage Impression/Plan Related to 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, left eye, with inact chrdl neovas Return in 6 months w annmarie Renteria MD for follow up and OCT Related to Exdtve age-rel mclr degn, left eye, with inact chrdl neovas Impression/Plan Related to Vitre ous degeneration, bilateral Impression/Plan Related to Prese nce of intraocular lens Impression/Plan Related to 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, right eye, intermed dry stage Impression/Plan Related to 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, left eye, with inact chrdl neovas Return in 2 months w annmarie Renteria MD for follow up and OCT Related to Exdtve age-rel mclr degn, left eye, with inact chrdl neovas Impression/Plan Related to Age-r elated nuclear cataract, bilateral Impression/Plan Related to 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, right eye, intermed dry stage Impression/Plan Related to 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, left eye, with inact chrdl neovas Return in 1 year frank Renteria MD for follow up and OCT Related to Exdtve age-rel mclr degn, left eye, with inact chrdl neovas Impression/Plan Related to 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, right eye, intermed dry stage Impression/Plan Related to 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, left eye, with inact chrdl neovas Impression/Plan Related to Age-r elated nuclear cataract, bilateral Impression/Plan Related to Vitre ous degeneration, bilateral Return in 1 year frank Renteria MD for follow up and OCT Related to Exdtve age-rel mclr degn, left eye, with inact chrdl neovas Impression/Plan Related to 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 Renteria for follow up exam and FA and possible Eylea OS. 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 Renteria for follow up exam with OCT and possible Eylea. 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, left eye, with active choroidal neovascularization Impression/Plan - LE FT: Continued anti-VEGF treatment for Exudative Age Related Macular Degeneration was recommended and discussed with the patient. The risks, benefits, and alternatives were reviewed. The patient chose to continue and received an intravitreal injection of Eylea today. The patient tolerated the procedure well and has been instructed to call immediately with the onset of severe pain, non-watery discharge or visual loss. The patient will continue following an Amsler grid daily and the use of the Age Related Eye Disease Study vitamins. Appropriate follow up with primary eye specialist wound care was recommended. The patient should call with any concerns or change in symptoms. 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, left eye, with active choroidal neovascularization Follow up - Return i n [address] Renteria for follow up exam with OCT and possible Eylea. 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, left eye, with active choroidal neovascularization Impression/Plan - Re gular follow up appointments with the patient's comprehensive eye doctor were recommended to monitor the patients cataract for progression. Related to Age-related nuclear cataract, bilateral Impression/Plan - LE FT: Lipid exudates noted centrally. Related to Other specified retinal disorders Impression/Plan - RI GHT: Non-Exudative Age Related Macular Degeneration was noted on examination today and reviewed with the patient. The patient was advised to continue to monitor an Amsler grid on a daily basis, report changes ASPEN and to use the antioxidant vitamins as described in the Age Related Eye Disease Study. Risk of transition to Exudative AMD was discussed. Appropriate follow up with primary eye specialist wound care was recommended. 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 Renteria for follow up exam with OCT and possible Eylea OS. 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, left eye, with active choroidal neovascularization Impression/Plan - RI GHT: Non-Exudative Age Related Macular Degeneration was noted on examination today and explained to the patient. The patient was advised to monitor an Amsler grid on a daily basis and to use the antioxidant vitamins as described in the Age Related Eye Disease Study. They were instructed to report any grid or vision changes immediately. Risk of transition to Exudative AMD was discussed. 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 Related to Age-related nuclear cataract, bilateral Impression/Plan - LE FT: Lipid exudates noted centrally. Related to Other specified retinal disorders Impression/Plan - LE FT: The stable exam findings were discussed with the patient. The options of continued treatment with increasing interval between injections vs holding treatment with careful monitored follow up visits were rediscussed. The patient has done well with the current treatment regimen and agrees to continue. Therefore, continued antiVEGF treatment for Exudative Macular Degeneration is recommended. The risks, benefits and alternatives were reviewed. The patient received and intravitreal injection of Eylea today and tolerated the procedure well. The patient has been instructed to call immediately with any severe pain, non-watery discharge or visual loss. The patient will continue to follow and Amsler grid daily and the use of the Age Related Eye Disease Study vitamins. Appropriate follow up with primary eye specialist wound care was recommended. 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, left eye, with active choroidal neovascularization Follow up - Return i n [address] Renteria for follow up exam with OCT and possible Eylea OS. 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, left eye, with active choroidal neovascularization Return in [address] Renteria for follow up exam with OCT and possible Eylea OS. 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, left eye, with active choroidal neovascularization Impression/Plan - Re gular follow up appointments with the patient's comprehensive eye doctor were recommended to monitor the patients cataract for progression. 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 The patient was instructed to monitor each eye independently and daily with Amsler Grid testing and report any new vision or grid changes immediately. Risk of transition to exudative AMD was discussed. 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 Previous diagnostic testing was also reviewed and the decision was made to treat and extend therapy. This will continue to be implemented as long as good treatment response is observed. The risks, benefits, and alternatives were reviewed. The patient chose to continue and received an intravitreal injection of Eylea today. The patient tolerated the procedure well and has been instructed to call immediately with the onset of severe pain, non-watery discharge or visual loss. The patient will continue following an Amsler grid daily and the use of the Age Related Eye Disease Study vitamins. Appropriate follow up with primary eye specialist wound care was recommended. The patient should call with any concerns or change in symptoms. 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 Renteria for follow up exam with OCT and possible Eylea OS. 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 Renteria for follow up exam with OCT and possible Eylea. Related to Exdtve age-rel mclr degn, left eye, with actv chrdl neovas Impression/Plan - Se condary to Ex AMD - see plan #1. 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 The risks, benefits, and alternatives were reviewed. The patient chose to continue and received an intravitreal injection of Eylea today. The patient tolerated the procedure well and has been instructed to call immediately with the onset of severe pain, non-watery discharge or visual loss. The patient will continue following an Amsler grid daily and the use of the Age Related Eye Disease Study vitamins. Appropriate follow up with primary eye specialist wound care was recommended. The patient should call with any concerns or change in symptoms. Related to Exdtve age-rel mclr degn, left eye, with actv chrdl neovas Follow up - Return i n [address] Renteria for follow up exam with OCT and possible Eylea. Related to Exdtve age-rel mclr degn, left eye, with actv chrdl neovas Impression/Plan - Re gular follow up appointments with the patient's comprehensive eye doctor were recommended to monitor the patients cataract for progression. Related to Age-related nuclear cataract, bilateral Impression/Plan - RI GHT: Stable Non-Exudative Age Related Macular Degeneration was noted on examination today and reviewed with the patient. The patient was advised to continue to monitor an Amsler grid on a daily basis, report changes ASPEN, and to use the antioxidant vitamins as described in the Age Related Eye Disease Study. Risk of transition to Exudative AMD was discussed. Related to Nonexudative age-related macular degeneration, right eye, early dry stage - Return in 6wks for OCT Eyl LT eye. Related to Exudative age- related macular degeneration, left eye, with active choroidal neovascularization Return in 6-[address] Renteria for follow up exam with OCT and possible Eylea (pending pre-auth) OS. 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 The patient was advised to continue to monitor an Amsler grid on a daily basis, report changes and to use the antioxidant vitamins as described in the Age Related Eye Disease Study. She should call with any changes in the right eye aspen. Risk of transition to Exudative AMD was discussed. Related to Nonexudative age-related macular degeneration, right eye, early dry stage Impression/Plan - Re gular follow up appointments with the patient's comprehensive eye doctor were recommended to monitor the patients cataract for progression. Related to Age-related nuclear cataract, bilateral Follow up - Return i n 6-[address] Renteria for follow up exam with OCT and possible Eylea (pending pre-auth) OS. 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 Treatment options were reviewed; the pros and cons of the different anti-VEGF medications were discussed. Risks of intravitreal injections and medications were reviewed. We discussed the longer duration of efficacy of Eylea for her polypoidal changes as compared to Avastin or Lucentis, and how that might be beneficial for the patient. At the patient's request, we proceeded with an intravitreal Eylea injection at today's visit and it was completed without complication. The patient was instructed to call if any post-operative problems developed such as eye pain, vision loss, or any purulent discharge from the treated eye. 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, left eye, with active choroidal neovascularization - Return in 1 mo for FU, OCT, dilate OU. 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 The goal of a treat and extend regimen was explained and will be implemented as long as good treatment response and resolution of subretinal blood and subretinal fluid and/or subRPE fluid is observed. The risks, benefits, and alternatives were reviewed. The patient chose to continue and received an intravitreal injection of Lucentis .5mg today. The patient tolerated the procedure well and has been instructed to call immediately with the onset of severe pain or visual loss. The patient will continue following an Amsler grid daily and the use of the Age Related Eye Disease Study vitamins. Appropriate follow up with primary eye specialist wound care was recommended. The patient should call with any concerns or change in symptoms. 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 Renteria for follow up exam with OCT and possible Lucentis OS. Impression/Plan - Re gular follow up appointments with the patient's comprehensive eye doctor were recommended to monitor the patients cataract for progression. Related to Age-related nuclear cataract, bilateral Impression/Plan - St able Non-Exudative Age Related Macular Degeneration was noted on examination today and reviewed with the patient. The patient was advised to continue to monitor an Amsler grid on a daily basis, report changes and to use the antioxidant vitamins as described in the Age Related Eye Disease Study. Risk of transition to Exudative AMD was discussed. Related to Nonexudative age-related macular degeneration, right eye, early dry stage - 6 wks for INJ DANA OS w/OCT Rel ated to Exudative age-related macular degeneration, left eye, with active choroidal neovascularization Return in [address] Renteria for OCT/IO/Dana OS Related to Exdtve age-rel joseph vázquez, left eye, with actv chrdl neovas Impression/Plan - Re gular follow up appointments with the patient's comprehensive eye doctor were recommended to monitor the patients cataract for progression. Related to Age-related nuclear cataract, bilateral Impression/Plan - St able Non-Exudative Age Related Macular Degeneration was noted on examination today and reviewed with the patient. The patient was advised to continue to monitor an Amsler grid on a daily basis, report changes and to use the antioxidant vitamins as described in the Age Related Eye Disease Study. Risk of transition to Exudative AMD was discussed. 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 The goal of a treat and extend regimen was explained and will be implemented as long as good treatment response and resolution of subretinal blood and subretinal fluid and/or subRPE fluid is observed. The risks, benefits, and alternatives were reviewed. The patient chose to continue and received an intravitreal injection of Lucentis .5mg today. The patient tolerated the procedure well and has been instructed to call immediately with the onset of severe pain or visual loss. The patient will continue following an Amsler grid daily and the use of the Age Related Eye Disease Study vitamins. Appropriate follow up with primary eye specialist wound care was recommended. The patient should call with any concerns or change in symptoms. 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 Renteria for OCT/IO/Dana OS 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, left eye, with active choroidal neovascularization - 6 wks for INJ DANA OS w/OCT Rel ated to Exudative age-related macular degeneration, left eye, with active choroidal neovascularization Return in [address] Renteria for INJ DANA OS w/OCT. 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 Referral for surgical intervention is not indicated at this time. Related to Age-related nuclear cataract, bilateral Exudative age-relate d macular degeneration, left eye, with active choroidal neovascularization - Use of grid discussed. 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, left eye, with active choroidal neovascularization Impression/Plan - St able Non-Exudative Age Related Macular Degeneration was noted on examination today and explained to the patient. The patient was advised to monitor an Amsler grid on a daily basis and to use the antioxidant vitamins as described in the Age Related Eye Disease Study. They were instructed to report any grid or vision changes immediately. Risk of transition to Exudative AMD was discussed. Related to Nonexudative age-related macular degeneration, right eye, early dry stage Dec- Impression/Plan - Af ter careful review of today's clinical and diagnostic testing, anti-VEGF treatment for Exudative Age Related Macular Degeneration was recommended. Previous diagnostic testing was also reviewed and the decision was made to shorten the dosing interval. This will be again extended as long as good treatment response is observed. The risks, benefits, and alternatives were reviewed. The patient chose to continue and received an intravitreal injection of Lucentis today. The patient tolerated the procedure well and has been instructed to call immediately with the onset of severe pain, non-watery discharge or visual loss. The patient will continue following an Amsler grid daily and the use of the Age Related Eye Disease Study vitamins. Appropriate follow up with primary eye specialist wound care was recommended. 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 Renteria for INJ DANA OS w/OCT. 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, left eye, with active choroidal neovascularization - 8 weeks for eval, OCT and possible Dana OS 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 - 6 wks for fu, OCT, poss DANA OS 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 - 8 wks for DANA INJ OS w/OCT Rel ated to Exudative age-related macular degeneration - 6 weeks, eval, OCT and possible Dana .5 OS 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 - 8 weeks, eval, OCT and possible Dana .5 OS 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 - Non-Exudative Age Related Macular Degeneration was noted on examination today and explained to the patient. The patient was advised to monitor an Amsler grid on a daily basis, report changes, and to use the antioxidant vitamins as described in the Age Related Eye Disease Study. Risk of transition to Exudative AMD was discussed. Appropriate follow up with primary eye specialist wound care was recommended. Related to Nonexudative age-related macular degeneration - Continued anti-VEG F treatment for Exudative Age Related Macular Degeneration was recommended and discussed with the patient. The goal of a treat and extend regimen was explained and will be implemented as long as good treatment response and resolution of subretinal blood and subretinal fluid and/or subRPE fluid is observed. The risks, benefits, and alternatives were reviewed. The patient chose to continue and received an intravitreal injection of Lucentis .5mg today. The patient tolerated the procedure well and has been instructed to call immediately with the onset of severe pain or visual loss. The patient will continue following an Amsler grid daily and the use of the Age Related Eye Disease Study vitamins. Appropriate follow up with primary eye specialist wound care was recommended. The patient should call with any concerns or change in symptoms. 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 Exudative age-relate d macular degeneration - Use of grid discussed. 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 - Not visually signi ficant. The patient was instructed to return to their referring physician for further evaluation of their current prescription. It is reasonable from a retinal standpoint to update the prescription should they find that a change would improve the patient's vision. 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 Renteria for FA , INJ-Dana 0.5 OS. Related to Exudative macular degeneration of retina - Not visually significant Relat ed to Age-related nuclear cataract, bilateral Exudative age-relate d macular degeneration - Use of grid discussed. 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 - Posterior vitreous detachment was noted on examination today and explained to the patient. There is no evidence of a retinal tear, break or detachment. 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 The patient was advised to monitor an Amsler grid on a daily basis and to use the antioxidant vitamins as described in the Age Related Eye Disease Study. They were instructed to report any grid or vision changes immediately. Risk of transition to Exudative AMD was discussed. Appropriate follow up with primary eye specialist wound care was recommended. Related to Nonexudative age-related macular degeneration - Continued anti-VEG F treatment for Exudative Age Related Macular Degeneration was recommended and discussed with the patient. The goal of a treat and extend regimen was explained and will be implemented as long as good treatment response and resolution of subretinal blood and subretinal fluid and/or subRPE fluid is observed. The risks, benefits, and alternatives were reviewed. The patient chose to continue and received an intravitreal injection of Lucentis .5mg today. The patient tolerated the procedure well and has been instructed to call immediately with the onset of severe pain or visual loss. The patient will continue following an Amsler grid daily and the use of the Age Related Eye Disease Study vitamins. Appropriate follow up with primary eye specialist wound care was recommended. The patient should call with any concerns or change in symptoms. 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 Renteria for follow up exam with OCT. The need for additional Lucentis will be determined at that time. Related to Exudative macular degeneration of retina - The stable exam fi ndings were discussed with the patient. The options of continued treatment with increasing interval between injections vs holding treatment with careful monitored follow up visits were rediscussed. The patient has done well with the current treatment regimen and agrees to continue. Therefore, continued antiVEGF treatment for Exudative Macular Degeneration is recommended. The risks, benefits and alternatives were reviewed. The patient received and intravitreal injection of Lucentis today and tolerated the procedure well. The patient has been instructed to call immediately with any severe pain, non-watery discharge or visual loss. The patient will continue to follow and Amsler grid daily and the use of the Age Related Eye Disease Study vitamins. Appropriate follow up with primary eye specialist wound care was recommended. 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 They were instructed to continue to monitor an Amsler grid daily, continue with vitamins as recommended and to report any grid or vision changes immediately. Risk of transition to Exudative AMD was discussed. 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 Will monitor. Related to Senile nuclear sclerosis - Return in [address] Renteria for follow up exam with OCT. The need for additional Lucentis OS will be determined at that time. 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 There is no evidence of a retinal tear, break or detachment. Related to Vitreous degeneration - *Based on today's clinical and diagnostic testing, continued anti-VEGF treatment for Exudative Age Related Macular Degeneration was recommended and discussed with the patient. Increased atrophy The goal of a treat and extend regimen was explained and will be implemented as long as good treatment response and resolution of subretinal blood and subretinal fluid and/or subRPE fluid is observed. The risks, benefits, and alternatives were reviewed. The patient chose to continue and received an intravitreal injection of Lucentis .5mg today. The patient tolerated the procedure well and has been instructed to call immediately with the onset of severe pain or visual loss. The patient will continue following an Amsler grid daily and the use of the Age Related Eye Disease Study vitamins. Appropriate follow up with primary eye specialist wound care was recommended. The patient should call with any concerns or change in symptoms. 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 Will monitor. Related to Senile nuclear sclerosis - Posterior vitreous detachment was noted on examination today and explained to the patient. There is no evidence of a retinal tear, break or detachment. 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 They were instructed to continue to monitor an Amsler grid daily, continue with vitamins as recommended and to report any grid or vision changes immediately. Risk of transition to Exudative AMD was discussed. 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 Renteria for follow up exam with OCT. The need for additional Lucentis .5 OS will be determined at that time. 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 The goal of a treat and extend regimen was explained and will be implemented as long as good treatment response and resolution of subretinal blood and subretinal fluid and/or subRPE fluid is observed. The risks, benefits, and alternatives were reviewed. The patient chose to continue and received an intravitreal injection of Lucentis .5mg today. The patient tolerated the procedure well and has been instructed to call immediately with the onset of severe pain or visual loss. The patient will continue following an Amsler grid daily and the use of the Age Related Eye Disease Study vitamins. Appropriate follow up with primary eye specialist wound care was recommended. The patient should call with any concerns or change in symptoms. 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 They were instructed to continue to monitor an Amsler grid daily, continue with vitamins as recommended and to report any grid or vision changes immediately. Risk of transition to Exudative AMD was discussed. 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 Rela clifford to Vitreous degeneration - Not affecting visi on at this time. Will monitor. Related to Senile nuclear sclerosis - Return in [address] Renteria for possible Dana .5 OS, FA and follow up exam. 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 The goal of a treat and extend regimen was explained and will be implemented as long as good treatment response and resolution of subretinal blood and subretinal fluid and/or subRPE fluid is observed. The risks, benefits, and alternatives were reviewed. The patient chose to continue and received an intravitreal injection of Lucentis .5mg today. The patient tolerated the procedure well and has been instructed to call immediately with the onset of severe pain or visual loss. The patient will continue following an Amsler grid daily and the use of the Age Related Eye Disease Study vitamins. Appropriate follow up with primary eye specialist wound care was recommended. The patient should call with any concerns or change in symptoms. 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 Renteria for follow up exam and OCT. The need for additional Lucentis .5 OS will be determined at that time. 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 They were instructed to monitor an Amsler grid daily and to report any grid or vision changes immediately. Risk of transition to Exudative AMD was discussed. Appropriate follow up with primary eye specialist wound care was recommended. Use of vitamins has shown to improve the effects of ARMD. Educational materials provided:Amsler grid. 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 Not affecting vision at this time. Related to Senile nuclear sclerosis - The progression of cataracts was noted on examination today and discussed with the patient. Not affecting vision at this time. Related to Senile nuclear sclerosis - Will treat with Tegan centis and continue to monitor and observe condition and or symptoms. 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 The goal of a treat and extend regimen was explained and will be implemented as long as good treatment response and resolution of subretinal blood and subretinal fluid and/or subRPE fluid is observed. The risks, benefits, and alternatives were reviewed. The patient chose to continue and received an intravitreal injection of Lucentis .5mg today. The patient tolerated the procedure well and has been instructed to call immediately with the onset of severe pain or visual loss. The patient will continue following an Amsler grid daily and the use of the Age Related Eye Disease Study vitamins. Appropriate follow up with primary eye specialist wound care was recommended. The patient should call with any concerns or change in symptoms. 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 Renteria for follow up and OCT. The need for additional treatment will be determined at that time. 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 They were instructed to monitor an Amsler grid daily and to report any grid or vision changes immediately. Risk of transition to Exudative AMD was discussed. Appropriate follow up with primary eye specialist wound care was recommended. Use of vitamins has shown to improve the effects of ARMD. Educational materials provided:Amsler grid. 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 They were instructed to monitor an Amsler grid daily and to report any grid or vision changes immediately. Risk of transition to Exudative AMD was discussed. Appropriate follow up with primary eye specialist wound care was recommended. Counseling about the benefits and/or risks of the Age-Related Eye Disease Study (AREDS) formulation for preventing progression of age-related macular degeneration (AMD) was provided to the patient and/or caregiver(s). Use of vitamins has shown to improve the effects of ARMD. 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 Related to Retinal edema - Based on today's c linical and diagnostic testing, continued anti-VEGF treatment for Exudative Age Related Macular Degeneration was recommended and discussed with the patient. The goal of a treat and extend regimen was explained and will be implemented as long as good treatment response and resolution of subretinal blood and subretinal fluid and/or subRPE fluid is observed. The risks, benefits, and alternatives were reviewed. The patient chose to continue and received an intravitreal injection of Lucentis .5mg today. The patient tolerated the procedure well and has been instructed to call immediately with the onset of severe pain or visual loss. The patient will continue following an Amsler grid daily and the use of the Age Related Eye Disease Study vitamins. Appropriate follow up with primary eye specialist wound care was recommended. The patient should call with any concerns or change in symptoms. 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 Renteria for FA, follow up. The need for additional treatment will be determined at that visit. 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 - Will continue to observe condition and or symptoms. 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 - Continued antiVEGF treatment for Exudative Age Related Macular Degeneration was recommended and discussed with the patient. The goal of a treat and extend regimen was explained and will be implemented as long as good treatment response and resolution of subretinal blood and subretinal fluid and/or subRPE fluid is observed. The risks, benefits, and alternatives were reviewed. The patient chose to continue and received an intravitreal injection of Lucentis .5mg today. The patient tolerated the procedure well and has been instructed to call immediately with the onset of severe pain or visual loss. The patient will continue following an Amsler grid daily and the use of the Age Related Eye Disease Study vitamins. Appropriate follow up with primary eye specialist wound care was recommended. The patient should call with any concerns or change in symptoms. 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 They were instructed to monitor an Amsler grid daily and to report any grid or vision changes immediately. Risk of transition to Exudative AMD was discussed. Appropriate follow up with primary eye specialist wound care was recommended. Counseling about the benefits and/or risks of the Age-Related Eye Disease Study (AREDS) formulation for preventing progression of age-related macular degeneration (AMD) was provided to the patient and/or caregiver(s). Use of vitamins has shown to improve the effects of ARMD. Gave patient ARMD book today. 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 - Will treat with Lucentis 0.5mg and continue to monitor. Related to Retinal edema - Return in [address] Renteria for follow up and OCT. Possible Lucentis OS. 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 They were instructed to monitor an Amsler grid daily and to report any grid or vision changes immediately. Risk of transition to Exudative AMD was discussed. Appropriate follow up with primary eye specialist wound care was recommended. Counseling about the benefits and/or risks of the Age-Related Eye Disease Study (AREDS) formulation for preventing progression of age-related macular degeneration (AMD) was provided to the patient and/or caregiver(s). Use of vitamins has shown to improve the effects of ARMD. Gave patient ARMD book today. 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 - Continued antiVEGF treatment for Exudative Age Related Macular Degeneration was recommended and discussed with the patient. The goal of a treat and extend regimen was explained and will be implemented as long as good treatment response and resolution of subretinal blood and subretinal fluid and/or subRPE fluid is observed. The risks, benefits, and alternatives were reviewed. The patient chose to continue and received an intravitreal injection of Lucentis .5mg today. The patient tolerated the procedure well and has been instructed to call immediately with the onset of severe pain or visual loss. The patient will continue following an Amsler grid daily and the use of the Age Related Eye Disease Study vitamins. Appropriate follow up with primary eye specialist wound care was recommended. The patient should call with any concerns or change in symptoms. 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 - Will continue to observe condition and or symptoms. 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 - Will treat with Lucentis 0.5mg and continue to monitor. Related to Retinal edema - Return in [address] Renteria for possible Lucentis OS and OCT. 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 They were instructed to monitor an Amsler grid daily and to reports any grid or vision changes immediately. Risk of transition to Exudative AMD was discussed. 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 - Will continue to observe condition and or symptoms. 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 - No treatment is required at this time. Will continue to observe condition and or symptoms. Related to Retinal edema Exudative macular de generation of retina OS Condition: moderate, chronic, active. - The stable exam findings were discussed with the patient. The options of continued treatment with increasing interval between injections vs holding treatment with careful monitored follow up visits were rediscussed. The patient has done well with the current treatment regimen but would like to hold treatment and follow closely. The patient has been instructed to call immediately with the onset of severe pain, non-watery discharge or visual loss. The patient will continue following and Amsler grid daily and the use of the Age Related Eye Disease Study vitamins. Appropriate follow up with primary eye specialist wound care is recommended. 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 Renteria for follow up and OCT. Possible Lucentis OS. 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 Renteria for follow up and OCT. 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 - The stable exam findings were discussed with the patient. The options of continued treatment with increasing interval between injections vs holding treatment with careful monitored follow up visits were rediscussed. The patient has done well with the current treatment regimen but would like to hold treatment and follow closely. The patient has been instructed to call immediately with the onset of severe pain, non-watery discharge or visual loss. The patient will continue following and Amsler grid daily and the use of the Age Related Eye Disease Study vitamins. Appropriate follow up with primary eye specialist wound care is recommended. 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 - No treatment is required at this time. Will continue to observe condition and or symptoms. 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 - Will continue to observe condition and or symptoms. 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 They were instructed to monitor an Amsler grid daily and to reports any grid or vision changes immediately. Risk of transition to Exudative AMD was discussed. 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 - Continued antiVEGF treatment for Exudative Age Related Macular Degeneration was recommended and discussed with the patient. The goal of a treat and extend regimen was explained and will be implemented as long as good treatment response and resolution of subretinal blood and subretinal fluid and/or subRPE fluid is observed. The risks, benefits, and alternatives were reviewed. The patient chose to continue and received an intravitreal injection of Lucentis .5mg today. The patient tolerated the procedure well and has been instructed to call immediately with the onset of severe pain or visual loss. The patient will continue following an Amsler grid daily and the use of the Age Related Eye Disease Study vitamins. Appropriate follow up with primary eye specialist wound care was recommended. The patient should call with any concerns or change in symptoms. 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 - Will treat with Lucentis 0.5mg and continue to monitor. 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 - Will continue to observe condition and or symptoms. 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 No treatment is necessary at this time. The patient was instructed to call with new floaters or vision changes. Discussed ocular and systemic benefits of blood sugar control as well as the importance of follow up compliance from a retinal standpoint and with the PCP/[facility]. Appropriate follow up with primary eye specialist wound care was recommended. 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 Renteria for follow up exam, OCT and switch to Lucentis OS. 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 - Continued antiVEGF treatment for Exudative Age Related Macular Degeneration was recommended and discussed with the patient. The goal of a treat and extend regimen was explained and will be implemented as long as good treatment response and regressing exam findings allow so. The risks, benefits, and alternatives were reviewed. The patient chose to continue and received an intravitreal injection of Avastin today. The patient tolerated the procedure well and has been instructed to call immediately with the onset of severe pain or visual loss. The patient will continue following an Amsler grid daily and the use of the Age Related Eye Disease Study vitamins. 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 - Will treat with Avastin and continue to monitor. 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 - Will continue to monitor. 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 - Nonexudative Age Related Macular Degeneration was noted on examination today and explained to the patient. The patient was advised to monitor an Amsler grid on a daily basis and to use the antioxidant vitamins as described in the Age Related Eye Disease Study. The differences between smokers and non-smokers vitamins were discussed. They were instructed to call immediately with any grid or vision changes. Appropriate follow up with primary eye specialist wound care was recommended. Related to Nonexudative senile macular degeneration of retina Vitreous degeneratio n OU Condition: mild, chronic, stable. - Will continue to observe condition and or symptoms. Discussed signs and symptoms of PVD/floaters. Discussed signs and symptoms of retinal detachment. Call if VA worsens. Related to Vitreous degeneration - Return in [address] Renteria for OCT, follow up exam and Avastin. 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 - Continued antiVEGF treatment for Exudative Age Related Macular Degeneration was recommended and discussed with the patient. The goal of a treat and extend regimen was explained and will be implemented as long as good treatment response and regressing exam findings allow so. The risks, benefits, and alternatives were reviewed. The patient chose to continue and received an intravitreal injection of Avastin today. The patient tolerated the procedure well and has been instructed to call immediately with the onset of severe pain or visual loss. The patient will continue following an Amsler grid daily and the use of the Age Related Eye Disease Study vitamins. 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 - Will treat with Avastin and continue to monitor. 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 - Will continue to monitor. 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 - Will continue to observe condition and or symptoms. Discussed signs and symptoms of PVD/floaters. Discussed signs and symptoms of retinal detachment. Call if VA worsens. Related to Vitreous degeneration Retinal edema OS Con dition: improving. - Will treat with Avastin and continue to monitor. 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 - Continued antiVEGF treatment for Exudative Age Related Macular Degeneration was recommended and discussed with the patient. The goal of a treat and extend regimen was explained and will be implemented as long as good treatment response and regressing exam findings allow so. The risks, benefits, and alternatives were reviewed. The patient chose to continue and received an intravitreal injection of Avastin today. The patient tolerated the procedure well and has been instructed to call immediately with the onset of severe pain or visual loss. The patient will continue following an Amsler grid daily and the use of the Age Related Eye Disease Study vitamins. Related to Exudative macular degeneration of retina - Return in [address] Renteria for follow up exam and possible Avastin. Related to Exudative macular degeneration of retina PVD (Vitreous degene ration) OU Condition: established, stable. 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 - Will continue to monitor. 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 - Will treat with Avastin continue to monitor. 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 - Will treat with Avastin and continue to monitor. 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 - Continued antiVEGF treatment for Exudative Age Related Macular Degeneration was recommended and discussed with the patient. The goal of a treat and extend regimen was explained and will be implemented as long as good treatment response and regressing exam findings allow so. The risks, benefits, and alternatives were reviewed. The patient chose to continue and received an intravitreal injection of Avastin today. The patient tolerated the procedure well and has been instructed to call immediately with the onset of severe pain or visual loss. The patient will continue following an Amsler grid daily and the use of the Age Related Eye Disease Study vitamins. Related to Exudative macular degeneration of retina - Return in [address] Renteria for follow up exam, OCT and possible Avastin OS. 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 Related to Senile nuclear sclerosis PVD (Vitreous degene ration) OU Condition: established, stable. Related to PVD (Vitreous degeneration) Retinal edema OS Con dition: recurrent. - Will treat with Avastin and continue to monitor. Related to Retinal edema Secondary pigmentary degeneration of retina OS Condition: worsening. - Will treat with Avastin continue to monitor. 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 - Continued antiVEGF treatment for Exudative Age Related Macular Degeneration was recommended and discussed with the patient. The goal of a treat and extend regimen was explained and will be implemented as long as good treatment response and regressing exam findings allow so. The risks, benefits, and alternatives were reviewed. The patient chose to continue and received an intravitreal injection of Avastin today. The patient tolerated the procedure well and has been instructed to call immediately with the onset of severe pain or visual loss. The patient will continue following an Amsler grid daily and the use of the Age Related Eye Disease Study vitamins. Related to Exudative macular degeneration of retina - Return in [address] Renteria for follow up exam, OCT and possible Avastin. 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 Related to Senile nuclear sclerosis PVD (Vitreous degene ration) OU Condition: established, stable. Related to PVD (Vitreous degeneration) Secondary pigmentary degeneration of retina OS Condition: stable. - Will continue to monitor. 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 - Patient showed no signs of leakage on today's OCT. Recommend observation of patient's macular degeneration today, patient to call with any Amsler grid or vision changes. Related to Exudative macular degeneration of retina - Return in [address] Renteria for FA. 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 Left. Condition: improving Patient Care Teams Name Effective Dates (start - stop) Status Members No Information
--- OUTSIDE RECORDS SUMMARY | 2025-01-25 10:47 | XMS_ITS | Continuity of Care Document ---
Author Organization 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 Corona Rosenthal Care ProviderActive Visit Care Team Team Status: Inactive Member Role/Relationship Status Dates Sonia Pulliam MD Primary Care Provider Active Start: December 22, 2024 End: December 22, 2024Jose Francisco Riley ProviderActiveStart: December 22, 2024 End: December 22, 2024 Patient Care Team Team Status: Inactive Member Role/Relationship Status Dates Sonia Pulliam MD Primary Care Provider Active Start: January 25, 2025 End: January 25, 2025oSnia Pulliam MDAtttenzin ProviderActiveStart: January 25, 2025 End: January 25, 2025 Chief Complaint and Reason for Visit Chief Complaint Admit Date Patient here for a 3 month f/u December 22, 2024 9:53am Rib Pain January 25, 2025 2 :10pm Reason for Visit Admit Date 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 Nov 9:53am Cough January 25, 2025 2 :10pm Moderate COPD (chronic obstructive pulmo nary disease) January 25, 2025 2:10pm Rib pain on right side January 25 2:10pm Allergies, Adverse Reactions, Alerts Allergen Type Severity Reaction Last Updated Verified Status adhesive tape Allergy Unknown rash January 25, 2025 2:21pm Yes Active Social History Smoking Status Status Start Date End Date Date of Observa tion Never smoked tobacco (finding) July 21, 2021 7:16am Observation Status Observation Response Date of Response Legal Sex Female (finding) Sex Assigned At BirthFemaleDeceer 1944 Family History Relationship Condition Age at Onset Recorded Date/T clifford sister Malignant neoplasm of breast Unknown sisterMalignant neoplasm of breastUnknownsisterMalignant neoplasm of breast UnknownsisterMalignant neoplasm of breastUnknownfamily memberMalignant neoplasm of breastUnknownmotherAsthmaUnknownfatherMyocardial infarctionUnknownbrother Diabetes mellitusUnknownbrotherHeart diseaseUnknowndaughterMalignant neoplasm of breastUnknownfatherDeceasedUnknownHeart diseaseUnknownmotherDeceasedUnknown Malignant neoplasm of breastUnknownsisterMalignant neoplasm of breastUnknown Heart diseaseUnknown Problems Active Problems Problem Diagnosis/Recorded Date Onset Date Status C omments Acute kidney injury June 02, 2023 10:59am Unknown Act keagan Left hand painApril 2024 2:24pmUnknownActiveChronic thoracic back painMarch 2023 1:37pmUnknownActiveL-TGA, levo-transposition of great arteries with ventricular inversionMarch 2023 4:16pmUnknownActiveArthritis of uunhhsnj-ossbvtkan-fyeuajcuq joint of left handApril 2024 2:26pmUnknown Active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January 2024 10:38amUnknownActive Medicare annual wellness visit, subsequentDeceer 2023 1:32pmUnknown ActiveAge-related osteoporosis without current pathological fractureMarch 2023 4:16pmUnknownActivePrimary osteoarthritis of left kneeMarch 2023 4:16pmUnknownActiveRib pain on right sideOctober 2024 2:42pmUnknownActive Neuropathic pain, leg, bilateralMarch 2023 4:16pmUnknownActivePresence of left artificial knee jointMarch 2023 4:16pmUnknownActiveRib fractureApril 2024 11:32amUnknownActiveModerate COPD (chronic obstructive pulmonary disease)May 31, 2023 4:16pmUnknownActiveShortness of breathMarch 2023 4:16pmUnknownActiveOAB (overactive bladder)May 31, 2023 4:16pmUnknownActive CHF (congestive heart failure)August 01, 2024 2:03pmUnknownActiveChronic disease anemiaMarch 2023 10:56amUnknownActiveExpressive aphasiaMarch 2023 4:16pmUnknownActivePulmonary HTNMarch 2023 4:16pmUnknownActiveConfusion July 25, 2024 11:32amUnknownActiveCoughApril 2024 11:33amUnknownActive EdemaMay 2024 2:03pmUnknownActiveHypercholesterolemiaMarch 2023 4:16pm UnknownActiveMixed hyperlipidemiaJune 2023 10:40amUnknownActiveAcute metabolic encephalopathyMarch 2023 10:59amUnknownActiveSepsisMarch 2023 10:59amUnknownActiveLeft wrist painDecember 2023 1:26pmUnknownActive Multifocal pneumoniaMarch 2023 10:59amUnknownActiveDiaphoresisMarch 2023 4:16pmUnknownActiveEncounter for palliative careJanuary 2024 9:24am UnknownActiveArthritis of carpometacarpal (CMC) joint of left thumbApril 2024 2:24pmUnknownActiveMacular degenerationMarch 2023 4:16pmUnknownActive ConstipationJanuary 2024 10:53amUnknownActiveFallApril 2024 11:32am UnknownActiveInactive/Resolved Problems Problem Diagnosis/Recorded Date Onset Date Status C omments Hypertension July 07, 2021 9:19am Unknown Resolved hx of-no medication currentlyProblem List clean-up per request of Phys. EHR Cmte Medications Medication Status Dose Units Route Directions Qty Days Refills S tart Date Stop Date End Date Reason(s) Instructions Adherence Oxycodone 15 mg tablet Discontinued 15 MG PO Every 8 hours a s needed for pain 90 30 0 May 31, 2023 June 29, 2023 2:57pmChronic thoracic back pain Pain in thoracic spine Other chronic painNaproxen 500 mg tabletDiscontinued0.ROUTE.YFMHLFM376Qwghh 2023 1:04pmMay 2023 12:30pmTAKE 1 TABLET BY MOUTH EVERY DAY Gabapentin 300 mg qyuxxfuMfogufwaugza002JPNBXupdz times cendu874910Fnhiy 2023 11:37amJuly 2023 8:27amMirabegron (Myrbetriq) 50 mg tablet extended release 24 hrDiscontinued0.ROUTE.RKIIUVZ525Egncq 2023 3:47pmJuly 2023 9:59amTAKE 1 TABLET BY MOUTH EVERY DAY FOR 90 DAYSOxycodone 10 mg tablet Iwraladizyzw50SDPYRndzk times daily as needed for psfq15296Yie 2023June 2023 11:48amChronic thoracic back pain Pain in thoracic spine Other chronic painDuloxetine 30 mg capsule,delayed release(DR/EC)Discontinued0 .ROUTE.OPAWLKN444Dmq 2023 1:43pmJuly 2023 8:27amTAKE 1 CAPSULE AT BEDTIMEDuloxetine 60 mg capsule,delayed release(DR/EC)Discontinued0.ROUTE .DVCEBQH566Zlo 2023 1:43pmJuly 2023 8:27amTAKE 1 CAPSULE EVERY MORNINGLisinopril 5 mg uodrxwNeqtuxzdmgyz9SYCSEvzvg996Jxk 2023 12:29pm November 01, 2023 9:43amNaproxen 500 mg tabletDiscontinued0.ROUTE.ANPUTLX557Xya 2023 12:30pmAugust 2023 9:43amTAKE 1 TABLET BY MOUTH EVERY DAY Oxycodone 10 mg kuhwivPucnnfigklvl86KYFKYhhlc times daily as needed for bgyg1759 0June 2023June 2023 9:14amChronic thoracic back pain Pain in thoracic spine Other chronic painDuloxetine 60 mg capsule,delayed release(DR/EC)Discontinued0 .ROUTE.KJIZUWY336Wtfl 2023 8:26amNovember 2023 5:30pmTAKE 1 CAPSULE EVERY MORNINGGabapentin 300 mg vuatwchXyumwexbvlxg183HKVRBvbqm times gqxnr456687 October 08, 2023 8:26amOctober 2023 4:21pmDuloxetine 30 mg capsule,delayed release(DR/EC)Discontinued0.ROUTE.RPPCRJP977Jiiz 2023 8:27amNovember 2023 5:30pmTAKE 1 CAPSULE AT BEDTIMEOxycodone 10 mg zduykzRjbrsixnpnif19YRMH Three times daily as needed for byxu18199Tnpt ugust 2023 8:36am Chronic thoracic back pain Pain in thoracic spine Other chronic painNaloxone (Narcan) 4 mg/actuation spray,non-aerosolDiscontinued 0LHQSPZOVUUHCXVSR4C11Ahnj 2023 12:00amDecember 2023 12:54pmspray 1 dose into ONE nostril; alternate nostrils w each dose until help arrives Mirabegron (Myrbetriq) 50 mg tablet extended release 24 hrDiscontinued0.ROUTE .KYWMAPP892Eqvh 2023 9:59amSeptember 2023 10:17amTAKE 1 TABLET BY MOUTH EVERY DAY FOR 90 DAYSLisinopril 5 mg tabletDiscontinued0.ROUTE.HLMNLZS944 November 01, 2023 9:43amMay 2024 12:13pmTAKE 1 TABLET EVERY DAYNaproxen 500 mg tabletActive0.ROUTE.IJSGYLV955Iwfdae2023 9:43amTAKE 1 TABLET EVERY DAY Complies with drug therapyOxycodone 10 mg xzaayeLrdnlxshymit00TKCHQdxcn times daily as needed for pren79795Fdyjcm 2023September 2023 8:31amChronic thoracic back pain Pain in thoracic spine Other chronic painOxycodone 10 mg rlfrdgMvkeyzqgmdkq40PSDQHyqnq times daily as needed for xvbp18354Erwznbrbi 2023October 2023 12:39pmChronic thoracic back pain Pain in thoracic spine Other chronic painOxycodone 10 mg fderwcUwozqrgkzpyb95SLZVSooeo times daily as needed for cgis63420Tnqysfo 2023November 2023 6:48amChronic thoracic back pain Pain in thoracic spine Other chronic painPravastatin 10 mg tabletDiscontinued0.ROUTE.BHTUOJP817Iwjewmu 2023 4:48pmAugust 2024 3:06pmTAKE 1 TABLET EVERY DAYGabapentin 300 mg vzdwgzlEgxnnluebwsv393UMBQUfgqv times njnfi22341Qowuedv 2023 4:21pm February 17, 2024 5:30pmOxycodone 10 mg ogrwgdAliajdhoxwet16QQTULhtiz times daily as needed for njjf75529Lspdbixm ecember 2023 8:25am Chronic thoracic back pain Pain in thoracic spine Other chronic painDuloxetine 60 mg capsule,delayed release(DR/EC)Discontinued0 .ROUTE.EYSQTHU132Ixodupfq 2023 5:30pmFebruary 2024 5:09pmTAKE 1 CAPSULE EVERY MORNINGGabapentin 300 mg avaodmjEsqbfjjddmvk603OCGKHmeee times eenox09366Dstuauun 2023 5:30pmDecember 2023 1:26pmDuloxetine 30 mg capsule,delayed release(DR/EC)Discontinued0.ROUTE.PLSGXGW774Gpxtyjce 2023 5:30pmFebruary 2024 5:09pmTAKE 1 CAPSULE AT BEDTIMEOxycodone 10 mg tablet Tvlqsednazwu49OHLXQooqp times daily as needed for zowc42276Jhbaefxw 2023April 10, 2024 1:46pmChronic thoracic back pain Pain in thoracic spine Other chronic painOxycodone 10 mg obsztbZwlzhpdsgows38CZPXPgrwh times daily as needed for gemp97796Woxjnru pril 2024 11:06amChronic thoracic back pain Pain in thoracic spine Other chronic painDuloxetine 30 mg capsule,delayed release(DR/EC)Discontinued0 .ROUTE.BLRBBXW643Svlohsky 2024 5:09pmApril 2024 12:20pmTAKE 1 CAPSULE AT BEDTIMEDuloxetine 60 mg capsule,delayed release(DR/EC)Discontinued0 .ROUTE.CXKUTER360Uzdrngfr 2024 5:09pmApril 2024 12:20pmTAKE 1 CAPSULE EVERY MORNINGMorphine 15 mg tablet extended kbkpbgwLjiucwiekdyv57RZQM U16U56327Wggvntdw 2024February 2024 5:06pm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 Neoplasm related pain (acute) (chronic)Morphine 15 mg tablet extended release Lawcmzoqshfy15MPXKX12T47501Zfkyagrw 2024March 2024 10:14am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 Neoplasm related pain (acute) (chronic)Oseltamivir (Tamiflu) 75 mg capsule Fsivtsuhljfh41CMUTLhhwp 12 vleht1747Fsulk 2024 1:00amApril 2024 2:13pm Gabapentin 300 mg nzjgsktSdrrkwwapkze459ZCCYZkqnp times oouup637398Pwkdv 2024 1:05pmJune 2024 10:33amDuloxetine 30 mg capsule,delayed release(DR/EC)Discontinued0.ROUTE.JHYVDSK340Gthfx 2024 12:20pmJuly 2024 8:18amTAKE 1 CAPSULE AT BEDTIMEDuloxetine 60 mg capsule,delayed release(DR/EC)Discontinued0.ROUTE.VMOAYAY822Kdfes 2024 12:20pmJuly 2024 8:18amTAKE 1 CAPSULE EVERY MORNINGMorphine 15 mg tablet extended release Hoxponjozaqf96LDWJE02P92759Zuv 2024June 2024 1:29pm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 Neoplasm related pain (acute) (chronic)Potassium Chloride (Klor-Con M10) 10 mEq tablet,ER particles/ulgjpeaiPaiybozqyzrx06EFJCTLbqhm328Kjn 2024 12:00amJune 2024 10:15amLisinopril 5 mg tabletActive0.ROUTE.OUIGZXN085Ppo 2024 12:12pmTAKE 1 TABLET EVERY DAYComplies with drug therapyMorphine 15 mg tablet extended cqszhgvQnpmbrinjzhz50QKTYO41E96941Lfxw 2024Jun2024 1:38pm 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 Neoplasm related pain (acute) (chronic)Morphine 15 mg tablet extended release Oghuddxhjxzn82UCLOX12K22700Mtvy 2024June 2024 10:33am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 Neoplasm related pain (acute) (chronic)Duloxetine 60 mg capsule,delayed release(DR/EC)Active0.ROUTE.KKWOUMJ886Ogyg 2024 8:17amTAKE 1 CAPSULE EVERY MORNINGComplies with drug therapyDuloxetine 30 mg capsule,delayed release(DR/EC) Active0.ROUTE.KEZYLHZ990Hywk2024 8:17amTAKE 1 CAPSULE AT BEDTIMEComplies with drug therapyMorphine 15 mg tablet extended fpthvxjLlxqirqxtgcn28ALYPK59F53 300August 2024September 2024 1:06pm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 Neoplasm related pain (acute) (chronic)Pravastatin 10 mg tabletActive0.ROUTE .PUNNWFA156Wyreeg 2024 3:06pmTAKE 1 TABLET EVERY DAYComplies with drug therapyMorphine 15 mg tablet extended tzukqkmVgrrnfhehlci25ABDPJ53U41310 November 28, 2024September 2024 10:18am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 Neoplasm related pain (acute) (chronic)Gabapentin 600 mg kztdpcKogjrkphvtpm833BO POThree times dailyApril 2021 12:00amApril 2023 2:57pmpain/neuropathy Aspirin (Aspirin Low Dose) 81 mg Tablet,Delayed Release (Dr/Ec)Bvbhabgdnjpe28BI PODailyApril 2021 12:00amDecember 2023 12:52pmOxycodone 15 mg tablet Rjygujznzxhy66HVQZEofmi dailyApril 2021 12:00amMarch 2023 1:21pmpain Oxycodone 15 mg tabletDiscontinued7.5MGPODailyApril 2021 12:00amMarch 2023 1:21pmpainPravastatin 10 mg wzfkdhKddpfqakcwho85FIXDSzlfl at bedtimeApril 2021 12:00amOctober 2023 4:48pmhyperlipidemiaDiphenhydramine Hcl (Sleep Aid (Diphenhydramine)) 25 mg MmbmqxWpzzrqllwrxv97MCKGVqejq at bedtime as needed for InsomniaApril 2021 12:00amMarch 2023 1:20pmNaproxen 500 mg imkttgSiprkkvduoxn975WMZXzftmj day at noonApril 2021 12:00amMarch 2023 1:04pmpainDuloxetine 30 mg capsule,delayed release(DR/EC)Jlkzbvocxuql84ZZUW Daily at bedtimeApril 2021 12:00amMay 2023 1:44pmneuropathyDuloxetine 60 mg capsule,delayed release(DR/EC)Cfsbsyeegwqv44KSLDYdyra morningApr2021 12:00amMay 2023 1:44pmneuropathyCalcium-Vitamin D3-Vitamin K (Viactiv) 500-100-40 mg-unit-mcg Tablet,AtmzlzhbCttcuulqouxx6LXQCWLayojGrkxf 2021 12:00amMarch 2023 1:19pmbone healthVit A,C And T-Isiyrz-Sfxfmvld (Healthy Eyes) 300 mcg-200 mg-27 mg-2 mg AqolrlUbvkvj2TSRXOKepubTqiud 2021 12:00am macular degenerationComplies with drug therapyCholecalciferol (Vitamin D3) (Vitamin D3) 25 mcg (1,000 unit) UlihocIrqvje92ZJNHYLhuvyRkikb 2021 12:00amComplies with drug therapyMv,Ca,Min-Folic Acid-Vit K1 (One-A-Day Women's 50 Plus) 400-20 mcg DzzeflElrzos8CTZDVBbfilKszbs 2021 12:00amsupplement Complies with drug therapyAcetaminophen (Acetaminophen Extra Strength) 500 mg FlgypdCnhjpsuvqqav0803VRIWQvkbr times daily as needed for PainApril 2021 12:00amMarch 2023 4:18pmOxycodone 10 mg ffyaibJnakfbkjxaiu11OXIUPqnyd times daily as needed for jgtp49359Nyol 2023July 2023 10:32amChronic thoracic back pain Pain in thoracic spine Other chronic painLisinopril 5 mg twfxqhZmhgscmkwlbr9MNXQRvizcHiysf 2023 1:00amMay 2023 12:30pmMirabegron (Myrbetriq) 50 mg tablet extended release 24 krYhuzfkquzpvz03BLZJTvotlPkfud 2023 1:00amJune 2023 10:35am Tiotropium-Olodaterol (Stiolto Respimat) 2.5-2.5 mcg/actuation mistDiscontinued INHALATIONUniversity [facility]als [facility] 2023 1:00amJune 2024 10:15amLevofloxacin 500 mg yjvvspQkxczxhfhibn942VYSRZcluwVlyaa 2023 1:00amApril 2023 2:29pm Prednisone 20 mg cawupdLrydmldokolu96TJLTZrwez dailyUniversity Hospitals [facility] 2023 1:00amApril 2023 2:29pmGabapentin 300 mg wdwpgrsVwztumwwzgxp065RVECDrcki times rysrr918 June 29, 2023 12:00amApril 2023 11:38amOxycodone 10 mg tablet Ydfngirkfpvg37BWUUFbevo times daily as needed for vcif73800Ggeta 2023May 2023 12:47pmChronic thoracic back pain Pain in thoracic spine Other chronic painMirabegron (Myrbetriq) 50 mg tablet extended release 24 hr Irjjhwxwoxux12OHDKCmgbmPlipk 2023 12:00amApril 2023 3:47pmGabapentin 300 mg zdqdbgqEsrxxldisqum697MIDNParev times hsguu042270Twxhxqqh 2023 1:26pmMarch 2024 1:05pmMorphine 15 mg tablet extended releaseDiscontinued 83OLBDQ27H11605Qidgcpxr 2024February 2024 2:36pm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 Neoplasm related pain (acute) (chronic)Morphine 15 mg tablet extended release Azyyjqmjlkhs34BRPEB22A99497Uvgpq 2024May 2024 9:57am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 Neoplasm related pain (acute) (chronic)Morphine 15 mg tablet extended release Lmdukprytyme85ANVBN95L42178Kvqi ugu2024 1:29pm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 Neoplasm related pain (acute) (chronic)Gabapentin 300 mg kcdjwlwMzbsjobeaihz745 MGPOThree times ozupg925891Ijdz 2024 10:30amJune 2024 10:41am Gabapentin 300 mg njhezfxXdenvp978PIMBEilhs times rxgqj198292Rmmf 2024 10:41amComplies with drug therapyFurosemide 20 mg cmbocoHudpwrnxurmi68FPYHLqgsv 140May 2024 12:00amJune 2024 10:14amMorphine 15 mg tablet extended iperbwnLuugxuskewcu25XRAVPmwne 8 vfbvx52791Rtodnme 2024October 2024 8:35am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 Neoplasm related pain (acute) (chronic)Morphine 15 mg tablet extended release Lzdsii92EHOYMdryq 8 pjlxq21338Hnvvhxs hronic pain after treatment for malignant neoplasm Neoplasm related pain (acute) (chronic)Complies with drug therapyOxycodone 15 mg uyphcmCaszjcxoebcx89CZZG1Dpkfycgq 2023 1:00amMarch 2023 1:38pm Morphine 15 mg tablet extended llutupbEcpxrkgjkfno75UIQEH41P06491Lcbsmuh 2024January 2024 11:24am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 Neoplasm related pain (acute) (chronic)Morphine 15 mg tablet extended release Kzfivpmaviol54TPGHD96T51959Ogescmv 2024February 2024 4:42pm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 Neoplasm related pain (acute) (chronic)Albuterol Sulfate 90 mcg/actuation HFA aerosol inhalerActiveINHALATIONApril 2024 12:00amComplies with drug therapy Ibuprofen 800 mg ddgchkJmaayj197IQZGBcnno dailyApril 2024 12:00amComplies with drug therapyOxycodone-Acetaminophen 5-325 mg yjxwbcMvuaujiyjops1LHGIUUqrxx 8 hours as dymugb5Ozlmoxyjb 2024 12:00amSeptember 2024 10:19am Oxycodone-Acetaminophen 5-325 mg hukaibFxzmcsrsevhg3EYBNKFobre daily as needed for blow34573Ttfbzdhni , 2024September 2024 11:02am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 Neoplasm related pain (acute) (chronic)Morphine 15 mg tablet extended release Etpflclqlkzn05EBJLDmxpe 8 yooho60023Xxfmmgfow , 2024September 2024 11:02am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 Neoplasm related pain (acute) (chronic)Morphine 15 mg tablet extended release Asxjmckorwnj19TYMRMtogb 8 ykycp23211Unvvuzvho , 2024October 2024 8:35am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 Neoplasm related pain (acute) (chronic)Oxycodone-Acetaminophen 5-325 mg tablet Jzkkte0KNORWDqsmy daily as needed for plah36017Hzhhgdpfn , hronic pain after treatment for malignant neoplasm Neoplasm related pain (acute) (chronic)Complies with drug therapy Immunizations Immunization Event Date Not Given Reason Dose Number [employer] Lot Number Reason(s) Given Vaccine Information Statement (VIS) Detail Administration Location COVID-19 mRNA Combina ([employer] RFID) May 09, 2020 COVID-19 mRNA Elepathbina ([employer] RFID)May 30OVID-19 mRNA Elepathbina ([employer] RFID)February 11, 2021Fluzone TIV High-Dose 65YR+December 20, 2023 [id number] [facility] unspecified formulationOctober 2018influenza, unspecified formulationSeptember 2019influenza, unspecified formulationOctober 2020influenza, unspecified formulationOctober 2021influenza, unspecified formulationOctober 2022 Medical Equipment Device Date Implanted Device Details Orthopaedic cement, non-medicated July 21 ZOHREH: [id number] [id number] Issuing Agency: [facility] Device Id: [id number] Expiration Date: 2024-12-26 Lot Number: [id number] cement, non-medicatedApril 2021UDI: ()[id number] Issuing Agency: [facility] Device Id: [id number] Expiration Date: 2024-12-26 Lot Number: [id number] knee femur prosthesisApril 2021UDI: ()[id number] Issuing Agency: [facility] Device Id: [id number] Expiration Date: 2030-07-22 Lot Number: [id number] insertApril 2021UDI: [id number] Issuing Agency: [facility] Device Id: [id number] Expiration Date: 2024-02-26 Lot Number: [id number] patella prosthesisApril 2021UDI: ()[id number] Issuing Agency: [facility] Device Id: [id number] Expiration Date: 2026-05-27 Lot Number: [id number] stemApril 2021UDI: ()[id number] Issuing Agency: [facility] Device Id: [id number] Expiration Date: 2031-05-31 Lot Number: [id number] knee tibia prosthesis, metallicApril 2021UDI: ()[id number] Issuing Agency: [facility] Device Id: [id number] Expiration Date: 2030-09-29 Lot Number: [id number] Vital Signs Vital Reading Result Reference Range Collection Date/Time Height 63 [in_i] December 22, 2024 9:84tyUzzxnl43.71 kgSept2024 9:57amBody Ucrfautplck10.3 [degF]97.6-99.0September 2024 9:57amHeart Rate92 /min 60-100Sept2024 10:02amBP Tlykhmby900 mm[Hg]100-140Sept2024 10:02amBP Nrrqooalh33 mm[Hg]60-100Sept2024 10:02amBMI (Body Mass Index)35.4 kg/w3Yfflcjssb2024 9:33ieEnstod66 [in_i]January 25, 2025 2:28qqRvtuzn94.08 kgOctober 2024 2:20pmBody Efrbpnpczkq81.2 [degF] 97.6-99.0Oct[facility] 2024 2:20pmHeart Tgcq662 /cqj77-290Dhsdipe 2024 2:20pmOxygen saturation by Pulse rebhvrls83 %95-100Oct2024 2:20pmBP Lxzkeysn030 mm[Hg]100-140Octwest[facility] 2024 2:20pmBP Kcmjxdaxo64 mm[Hg]60-100 January 25, 2025 2:20pmBMI (Body Mass Index)34.0 kg/x2Vmvtxmj 2024 2:20pm Advance Directives Advance Directive Response Recorded Date/ Time Advance Directives No March 04, 2021 8:20am Insurance Providers Guarantor Catherine Ayers Address [address] [place] [address]Llaibho Info.Home Phone: Payer Group Member ID Coverage Type Subscriber Relationship to Subscriber Effective Date Expiration Date [facility] Id: [id number] A [employer] Id: [id number] [address] [place] [address] Home Phone: self Encounters Encounter Location(s) Arrival/Admit Date Discharge/Departure Date Discharge/Departure Disposition Provider(s) Departed Physician/ Provider Office Visit -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 CampusAuthoredSept2024 10:35amMSER BID is mostly effective in reducing pain in the chest/breast areas (anterior and posterior) but tends to experience increased pain severity in the early evening, 2-3h prior to last dose of MSER, using Percocet more often to bridge to PM dose. Discussed option of routine use of Percocet in the late afternoon vs titration of MSER to 15 mg TID to improve opioid steady state and pain control. Catherine agrees to try titration of MSER - advised to resume BID dosing if she feels too sedated with the medication increase. OARRS reviewed, consistent with Rx. OME 30-40 mg/day Increase Morphine ER 15 mg to TID Continue Percocet 5/325 mg BID PRN without change F/U via telephone check in 2 weeks Future Tests Future scheduled test information is unavailable Pending Tests Test Name Ordered Date Scheduled Date XR chest 2V* January 25, 2025 2:42pm XR ribs RT min 3V w CXR1V*January 25, 2025 2:42pm Future Visits Future appointment information is unavailable Future Procedures Procedure Name Ordered Date Scheduled Date Disability Placard December 22, 2024 10:12am Future Medications Future medication information is unavailable Patient Instructions Patient instructions are unavailable
--- OUTSIDE RECORDS SUMMARY | 2025-01-25 14:59 | XMS_ITS | Clinical Summary ---
Author Organization [facility] Address [address] [place] [address] Phone Care Team Providers Care Clinical Application Consultant Name Role Phone Unavailable Primary Care Provider Unavailabl e Social History Tobacco UseTypesPacks/DayYears UsedDateSmoking Tobacco: Never Assessed CommentsUnknownSex and Gender InformationValueDate RecordedSex Assigned at Not on fileLegal BlqImzgocd56/07/2023 10:48 AM ESTGender IdentityNot on file Sexual OrientationNot on file Plan of Treatment Health MaintenanceDue DateLast DoneCommentsLipid Panel1945Medicare Annual Wellness Visit (AWV)1945Hepatitis C Hinhmvejt96/26/1963DTaP/Tdap/Td Vaccines (1 - Tdap)1967Pneumococcal Vaccine (1 of 1 - PCV)1995Zoster Vaccines (1 of 2)1995Bone Density Scan2010RSV High Risk: (Elderly (60+) or Population) (1 - 1-dose 75+ series)2020Influenza Vaccine (#1)5COVID-19 Vaccine (1 - 2024- season)2024HIB VaccinesAged OutNo longer eligible based on patient's age to complete this topicHPV Vaccines Aged OutNo longer eligible based on patient's age to complete this topic Hepatitis A VaccinesAged OutNo longer eligible based on patient's age to complete this topicHepatitis B VaccinesAged OutNo longer eligible based on patient's age to complete this topicIPV VaccinesAged OutNo longer eligible based on patient's age to complete this topicMeningococcal VaccineAged OutNo longer eligible based on patient's age to complete this topicRotavirus VaccinesAged Out No longer eligible based on patient's age to complete this topic Insurance
--- OUTSIDE RECORDS SUMMARY | 2025-01-25 14:59 | XMS_ITS | Clinical Summary ---
Author Organization [facility] Address [address] [place] [address] Care Team Providers Care Residence Supervisor Name Role Phone Sonia Pulliam MD Primary Care Provider [phone] Social History Tobacco UseTypesPacks/DayYears UsedDateSmoking Tobacco: Never Assessed CommentsUnknownSex and Gender InformationValueDate RecordedSex Assigned at Not on fileLegal MaeMjowov62/15/2023 9:44 PM EDTGender IdentityNot on fileSexual OrientationNot on file Last Filed Vital Signs Vital SignReadingTime TakenCommentsBlood Pressure--Pulse--Temperature-- Respiratory Rate--Oxygen Saturation--Inhaled Oxygen Concentration--Vvpopq75.4 kg (175 lb)01/04/2019 12:00 PM BPWLbqyel583 cm (5' 3 )01/04/2019 12:00 PM EDTBody Mass Phdmd488001/04/2019 12:00 PM EDT Plan of Treatment Not on file Insurance Care Teams Team MemberRelationshipSpecialtyStart DateEnd Date Sonia Pulliam MD [address] [place] [id number] PCP - GeneralFamily Medicine08/07/24
--- OUTSIDE RECORDS SUMMARY | 2025-01-25 15:00 | XMS_ITS | Clinical Summary ---
Author Organization [facility] Address [address] [place] [address] Care Team Providers Care Computer Compositor Name Role Phone Sonia Pulliam MD Primary Care Provider [phone] Allergies Active AllergyReactionsCriticalityNoted DateCommentsAdhesive Tape (Rosins)Rash 11/30/2013 Medications MedicationSigDispense QuantityRefillsLast FilledStart DateEnd DateStatus pravastatin (PRAVACHOL) 10 mg ORAL tablet Take 1 tablet by mouth once daily.ctive aspirin, enteric coated (ECOTRIN LOW STRENGTH) 81 mg ORAL EC tablet Take 1 tablet by mouth once daily.ctive gabapentin (NEURONTIN) 600 mg tablet 05/14/2021ctive naproxen (NAPROSYN) 500 mg tablet Take 500 mg by mouth once daily.04/30/2021ctive oxyCODONE (ROXICODONE) 15 mg immediate release tablet 07/11/2017Active celecoxib (CELEBREX) 200 mg capsule Take 200 mg by mouth twice daily with meals.07/16/2021ctive traMADol (ULTRAM) 50 mg tablet Take 50 mg by mouth every 6 hours as needed.07/16/2021ctive MYRBETRIQ 50 mg Tb24 Take 50 mg by mouth once daily.07/07/2021ctive ferrous sulfate 325 mg (65 mg iron) tablet TAKE 1 TABLET BY MOUTH 3 TIMES A DAY FOR 28 DAYS07/10/2021ctive cholecalciferol (VITAMIN D3) 1,000 unit tab tablet Take 1,000 Units by mouth once daily.07/10/2021ctive acetaminophen (TYLENOL) 500 mg tablet TAKE TWO TABLETS BY MOUTH EVERY 8 HOURS FOR PAIN07/16/2021ctive prednisoLONE acetate (PRED FORTE, ECONOPRED PLUS) 1 % ophthalmic suspension USE DIRECTED BY PHYSICIAN, IN OPERATIVE EYE, BEGINNING ONE DAY AFTER SURGERY 5 mL 08/05/2021ctive keTORolac (ACULAR) 0.5 % ophthalmic solution USE DIRECTED BY PHYSICIAN, IN OPERATIVE EYE, BEGINNING ONE DAY AFTER SURGERY 5 mL 08/05/2021ctive prednisoLONE acetate (PRED FORTE, ECONOPRED PLUS) 1 % ophthalmic suspension USE DIRECTED BY PHYSICIAN, IN OPERATIVE EYE, BEGINNING ONE DAY AFTER SURGERY 5 mL 08/20/2021ctive keTORolac (ACULAR) 0.5 % ophthalmic solution USE DIRECTED BY PHYSICIAN, IN OPERATIVE EYE, BEGINNING ONE DAY AFTER SURGERY 5 mL 08/20/2021ctive DULoxetine (CYMBALTA) 60 mg capsule 1 capsule every morning.08/14/2021ctive DULoxetine (CYMBALTA) 30 mg capsule 1 capsule daily at bedtime.08/14/2021ctive Active Problems ProblemNoted DateDiagnosed DateObesity (BMI 35.0-39.9 without comorbidity) 2Other vsxycbozkecvpr71/04/2022 Assessment & Plan (07/30/2021 11:59 AM EDT): Assessment: Continue statin Stable Breast egmlnk3107/30/2021ongestive heart fyawqgn20/04/2022CRPS (complex regional pain syndrome) type I07/06/2013 Assessment & Plan (07/30/2021 12:02 PM EDT): Assessment: stable On multiple pain medications Neuropathic pain03/15/2012urning ejxgwryil65/29/2011 Immunizations ImmunizationAdministration DatesNext Duezoster (ZVL) vaccine, live (ZOSTAVAX) 12/25/2009 Family History Medical HistoryRelationCommentsIschemic Heart DiseaseBrotherIschemic Heart DiseaseFatherAsthmaMotherCOPDMotherCOPDSisterRelationStatusCommentsBrotherFather MotherSister Social History Tobacco UseTypesPacks/DayYears UsedDateSmoking Tobacco: NeverSmokeless Tobacco: NeverAlcohol UseStandard Drinks/WeekCommentsYes0 (1 standard drink = 0.6 oz pure alcohol)very rare--maybe 4 drinks a year.Area Deprivation IndexAnswerDate RecordedNational Score (1-100), lower number is lower zwhd793804/24/2022State Score (1-10), lower number is lower riskNot on file3Data from: https://www.neighborhoodatlas.[facility]/. Last address used for [address]CommentsNoSex and Gender Information ValueDate RecordedSex Assigned at ZpasjQhxovd91/27/2022 2:03 PM ESTLegal Sex Xbysou8602/28/2012 5:23 PM ESTGender QqyhlvzkJmoovh97/27/2022 2:03 PM ESTSexual SoleysaubzlZepuoeih65/27/2022 2:03 PM ESTOccupationIndustryJob Start DateJob End DateRetiredNot on fileNot on fileNot on file Last Filed Vital Signs Vital SignReadingTime TakenCommentsBlood Yrahkaty243/6605 11:51 AM EDT Qvvmk901908/20/2021 11:51 AM NHPXwreltleqsl35.3 ??C (97.3 ??F)08/20/2021 11:41 AM EDTRespiratory Jyil2682 11:51 AM EDTOxygen Eqhidqhxcx74%08/20/2021 11:51 AM EDTInhaled Oxygen Concentration--Hfszka60.4 kg (206 lb)07/30/2021 9:12 AM EDT Fpcmtn476.3 cm (5' 3.5 )07/30/2021 9:12 AM EDTBody Mass Index35.9207/30/2021 9:12 AM EDT Plan of Treatment Health MaintenanceDue DateLast DoneCommentsAnxiety Vgfydyskh52/26/1963Depression Okcovfmvg11/26/1963DTaP,Tdap,Td Vaccine (1 - Tdap)1964Pneumococcal Vaccine: 50+ (1 of 1 - PCV)1995Shingrix Vaccine (2 of 3)02/19/2010 12/25/2009one Density Xpayurqqs60/26/2010Diabetes Ljuyjpfeg23/15/2017 01/10/2014, 05/08/2013, 10/08/2011, Additional history existsRSV Vaccine (1 - 1- dose 75+ series)2020Advance Directive Wehrwzcehz98/01/2025Covid-19 Vaccine ( season)511/, 05/30/2020, 05/09/2020Influenza Vaccine (#1)509/, 12/22/2016, 01/03/2016 Medical Devices ImplantedTypeAreaManufacturerDevice Formerly [facility] Expiration DateModel / Serial / LotGenrtr Nrstm Pls Imp Chrg Kt - [id number] Implanted:Qty: [facility]/A: ffk environment [id number]/30/2016AR-1010C / [id number] / Hac-Hl-Y-Kind Implant - [id number] Implant[facility]:Qty[facility]: ffk environment04/28/[id number] / [id number] / Description:LINEAR ST 70CM 8 CONTACT LEAD CFTTmd-Al-J-Kind Implant - [id number] Implanted:Qty: 1 on 01/18/2014 [facility]/A: ffk environment10/26/2015AR-4316 / / [id number]:CLIK ANCHORLens Iol 0d +13 Tony Uv Abs - [id number] Implanted:Qty: 1 on 08/06/2021 by Jennifer Jones V, MD at [facility] Intraocular LensLeft: EyeALCON LABS NGBAYDAM41/25/2608IE65GP.130 / [id number] / Description:-0.39Lens Iol 0d +13 Tony Uv Abs - [id number] Implanted:Qty: 1 on 08/20/2021 by Jennifer Jones V, MD at [facility] Intraocular LensRight: EyeAL[employer] UXDFADHK48/06/3191AU89CZ.130 / [id number] / Description:-0.48Kit Stim 50cm Porsha 8 Cntct Ld - [id number] Implanted:Qty: 1 on 01/18/2014 at [facility] SCIENTIFIC LTTDDIIXXHTF41/31/[id number] / [id number] / Procedures Procedure NamePriorityDate/TimeAssociated DiagnosisCommentsBASIC METABOLIC PANEL Udocbre5101/10/2014 9:31 AM EDT Other specified pre-operative examination Reflex sympathetic dystrophy, unspecified (HCC) Neuropathic pain from Last 3 Months or Most Recently Relevant to Health Maintenance Results * (ABNORMAL) BASIC METABOLIC PNL (01/10/2014 9:31 AM EDT)ComponentValueRef Range Test MethodAnalysis TimePerformed AtPathologist WnopnklveKecyahi3609 - 100 mg/dLPREMIER [facility] VZGIPKWERJTGT484 - 25 mg/dLPREMIER [facility]TH LABORATORYCreatinine0.870.70 - 1.40 mg/dLPREMIER [facility]ALTH [facility] LABORATORY Ulraiy511(L)132 - 148 mmol/LCGREENE MEMORIAL HOSPITAL LABORATORYPotassium5.3(H)3.5 - 5.0 mmol/LCCOREY HOSPITAL [facility]IN OCGFTDGFWHQexuzehm83(L)98 - 110 mmol/L [facility] XRXGLBFYEABA42601 - 32 mmol/LCGREENE MEMORIAL HOSPITAL LABORATORYAnion Xjx752 - 15 mmol/LCGREENE MEMORIAL HOSPITAL LABORATORYCalcium9.7 8.5 - 10.5 mg/dLPREMIER HEALTH [facility]TH LABORATORYeGFR->60 [facility] LABORATORYeGFR-All Other Races>60.[facility] LABORATORYComment: eGFR (Estimated GFR) Units of measure: mL/min/1.73 meters squared eGFR is derived from the reexpressed MDRD Study equation using the following parameters: serum creatinine, age, gender and race. The creatinine assay has been calibrated to be traceable to IDMS. An eGFR <60 mL/min/1.73m2 for >3 months is consistent with chronic kidney disease. Refer to KDOQI guidelines for clinical interpretation. Specimen (Source)Anatomical Location / LateralityCollection Method / Volume Collection TimeReceived TimeBlood specimen (specimen)BLOOD SPECIMEN / Unknown 01/10/2014 9:31 AM EDT1 9:33 AM EDT Narrative Authorizing ProviderResult TypeResult StatusKaitmaria g M (Hist) RosemanLABORATORY Final ResultPerforming OrganizationAddressCity/State/ZIP CodePhone Number [facility] [address] [place] [address] from Last 3 Months or Most Recently Relevant to Health Maintenance Insurance Care Teams Team MemberRelationshipSpecialtyStart DateEnd Date Sonia Pulliam MD [address] [facility] [phone] PCP - GeneralFamily Medicine12/25/10
--- OUTSIDE RECORDS SUMMARY | 2025-01-25 15:01 | XMS_ITS | CCD ---
Author Organization [facility] Care Team Providers Care [employer] Support Specialist Name Role Phone Oumar Gunter MD Primary Care Provider Miguel Spring II Unavailable MD Oumar Gunter Primary Care Provider MD Miguel Spring II Attending Provider MIGUEL SPRING Admitting Unavailable MIGUEL SPRING Attending Unavailable LYRIC, DR OUMAR San Primary Care Unavailable GUNTER, DR OUMAR San Admitting Unavailable GUNTER, DR OUMAR San Attending Unavailable GUNTER, DR OUMAR San Primary Care Unavailable FAJOEL, SHAIKH Sweetie Admitting Unavailable SHAIKH Sweetie RHODES Attending Unavailable GUNTER, DR OUMAR San Referring Unavailable GUNTER, DR OUMAR San Primary Care Unavailable [facility] DR CIARRA Recinos Consulting Unavailable DEVYNWSEGUN, SHAIKH Sweetie Consulting Unavailable GUNTER, DR OUMAR [...] GUNTER, DR OUMAR San Primary Care Unavailable INDIAN TRAIL, DR EDWARDO Faria Consulting Unavailable GUNTER, DR OUMAR San Consulting Unavailable GUNTER, DR OUMAR San Admitting Unavailable GUNTER, DR OUMAR San Attending Unavailable GUNTER, DR OUMAR San Primary Care Unavailable GUNTER, DR OUMAR San Consulting Unavailable Oumar Gunter Unavailable MD Oumar Gunter Primary Care Provider MD Miguel Spring II Attending Provider Linda Renteria Unavailable MD Oumar Gunter Primary Care Provider [phone] MD Linda Renteria Attending Provider MD Oumar Gunter Primary Care Provider MD Linda Renteria Attending Provider MD Linda Renteria Referring Provider [phone] MD Oumar Gunter Primary Care Provider MD Fidelina Escobar Attending Provider Oumar Gunter MD Primary Care Provider Paty Booth MD Attending Provider Oumar Gunter Primary Care Unavailable Paty Booth Attending Unavailable Paty Booth Admitting Unavailable Nina Paulino CMA Attending Provider Unavaila [facility] Oumar Gunter MD Attending Provider Shaikh SHAYNE, Raghav Thornton Attending Provider Pancho Buckner MD Attending Provider Fidelina Escobar MD Attending Provider Maria Victoria Uribe APRN Attending Provider Oumar Gunter MD Primary Care Provider Maria Victoria Uribe APRN Attending Provider [phone] Allergies Allergy ClassificationReported Allergen(s)Allergy TypeDate of OnsetReaction(s) Facility (4 sources)Adhesive TapeAllergy to kghibcecd43-90-3059[facility] (20 sources)Adhesive TapeDrug allergyrasSaint [facility] Other (2 sources)Adhesive agentDrug allergy (disorder)68-27-4348Yzd [facility] (1 source)Adhesive TapeDrug allergy (disorder)44-94-8584PkwwkuhgsAv[facility] Medications Current Medications MedicationDrug Class(es)DatesSig (Normalized)Sig (Original)acetaminophen 325 mg / oxyCODONE hydrochloride 5 mg oral tablet (2 sources)Opioid AgonistStart: 88-76-2556vukw 1 tablet by mouth twice daily as needed for painOxycodone-Acetaminophen 5-325 mg tablet Active 1 TAB PO Twice daily as needed for pain 60 30 December 22, 2024 Complies with drug therapy Start: 12-22-2024 End: 33-93-1280ahsr 1 tablet by mouth every eight hours as neededOxycodone- Acetaminophen 5-325 mg tablet Discontinued 1 TAB PO Every 8 hours as needed December 22, 2024 12:00am December 22, 2024 10:[id number] 200 actuat albuterol 0.09 mg/actuat metered dose inhaler (6 sources)beta2-Adrenergic AgonistStart: 02-56-6635Brctadlfp Sulfate 90 mcg/actuation HFA aerosol inhaler Active INHALATION June 27, 2024 12:00am Com plies with drug therapyascorbic acid 200 mg / beta carotene 1000 unt / cuprous oxide 2 mg / dl-alpha tocopheryl acetate 60unt / lutein 2 mg / sodium selenate 0.055 mg / zinc oxide 40 mg oral tablet (2 sources)Vitamin CStart: 49-61-7147zyaf 1 tablet by mouth once dailyVit A,C And W-Tograe-Gszvenmx (Healthy Eyes) 300 mcg-200 mg-27 mg-2 mg Tablet Active 1 TAB PO DailyApril 2021 12:00am Complies with drug therapybenoxinate hydrochloride 4 mg/ml / fluorescein sodium 2.5 mg/ml ophthalmic solution (1 source)Diagnostic DyeStart: 08-07-2021 End: 17-99-1725qfvmengvdye-benoxinate 0.25-0.4 % 1 Drop (FLURESS)cefadroxil 500 mg oral capsule (6 sources)Cephalosporin AntibacterialStart: 82-68-9284qjuz 1 capsule by mouth every twelve hoursCefadroxil 500 MG 1 tablet Orally every 12 hrs for 7 days MED TO BED UPON DISCHARGE DOS 07/21/2021 Jun, Activecholecalciferol 0.025 mg oral tablet (20 sources)Vitamin DStart: 72-83-6107kedp 1 tablet by mouth every twenty-four hoursVitamin D 25 MCG (1000 UT) 1 tablet Orally Once a day for 56 day(s) Jun, ActiveStart: 78-84-6643ijcw 1 tablet by mouth once dailyCholecalciferol (Vitamin D3) (Vitamin D3) 25 mcg (1,000 unit) Tablet Active 25 MCG PO Daily July 07, 2021 12:00am Complies with drug therapyStart: 32-46-9671Rqzhwbl D3 250 MCG (74673 UT) as directed Orally Feb, ActiveStart: 02-27-2021 Vitamin D3 250 MCG (18712 UT) as directed Orally Feb, ActiveComment on above:Take 1,000 Units by mouth once daily.docusate sodium 50 mg / sennosides, shelter 8.6 mg oral tablet (6 sources)Start: 15-64-8055pmto 2 tablets by mouth every twenty-four hours Senokot S 8.6-50 MG 2 tablets Orally Once a day for 30 day(s) MED TO BED UPON DISCHARGE DOS 07/21/2021 Jun, ActiveDULoxetine 30 mg delayed release oral capsule (20 sources)Serotonin and Norepinephrine Reuptake InhibitorStart: 08-04-2023 End: 78-51-5637Zuclexubho 60 mg capsule,delayed release(DR/EC) Active 0 .ROUTE .COMPLEX October 09, 2024 8:17am TAKE 1 CAPSULE EVERY MORNING Complies with drug therapyStart: 08-04-2023 End: 69-93-6868Toaheyhkqg 30 mg capsule,delayed release(DR/EC) Active 0 .ROUTE .COMPLEX October 09, 2024 8:17am TAKE 1 CAPSULE AT BEDTIME Complies with drug therapyStart: 08-01-2015 End: 07-49-5156kldm 1 capsule by mouth once daily in the morningDuloxetine 60 mg capsule,delayed release(DR/EC) Discontinued 60 MG PO Every morning July 07, 2021 12:00am August 04, 2023 1:44pmStart: 05-21-2015 End: 26-44-6883dmxr 1 capsule by mouth once daily at bedtimeDuloxetine 30 mg capsule,delayed release(DR/EC) Discontinued 30 MG PO Daily at bedtime July 07, 2021 12:00am August 04, 2023 1:44pmComment on above:Take 1 capsule by mouth once daily.TAKE ONE CAPSULE EVERY MORNING1 capsule every morning.1 capsule daily at bedtime.Healthy Eyes - (20 sources)Healthy Eyes - as directed Orally Activeibuprofen 800 mg oral tablet (4 sources)Nonsteroidal Anti-inflammatory DrugStart: 09-75-7593jgqc 1 tablet by mouth twice dailyIbuprofen 800 mg tablet Active 800 MG PO Twice daily July 25, 2024 12:00am Complies with drug therapyIron (5 sources)Start: 88-89-4605yeuk 1 tablet by mouth three times dailyIron (Ferrous Sulfate) 325 (65 Fe) MG 1 tablet Orally TID for 28 days Jun, Activeketorolac tromethamine 5 mg/ml ophthalmic solution (3 sources)Nonsteroidal Anti-inflammatory Drug, Cyclooxygenase InhibitorStart: 91-03-3314ftGCGuygl (ACULAR) 0.5 % ophthalmic solution USE DIRECTED BY PHYSICIAN, IN OPERATIVE EYE, BEGINNING ONE DAY AFTER SURGERY 5 mL 0 08/20/2021 ActiveStart: 84-21-6320gcWVPqwju (ACULAR) 0.5 % ophthalmic solution USE DIRECTED BY PHYSICIAN, IN OPERATIVE EYE, BEGINNING ONE DAY AFTER SURGERY 5 mL 0 08/05/2021 ActiveComment on above:USE DIRECTED BY PHYSICIAN, IN OPERATIVE EYE, BEGINNING ONE DAY AFTER SURGERYlisinopril 5 mg oral tablet (20 sources)Angiotensin Converting Enzyme InhibitorStart: 11-01-2023 End: 15-85-1441Ewkiotzsza 5 mg tablet Active 0 .ROUTE .COMPLEX August 22, 2024 12:12pm TAKE 1 TABLET EVERY DAY Complies with drug therapyStart: 06-01-2023 End: 46-22-7858scef 1 tablet by mouth once dailyLisinopril 5 mg tablet Discontinued 5 MG PO Daily August 18, 2023 12:29pm November 01, 2023 9:43am Start: 77-66-7741tcex 1 tablet by mouth every twenty-four hoursLisinopril 5 MG 1 tablet Orally Once a day for 30 day(s) Dec, ActivemethylPREDNISolone 4 mg oral tablet (1 source)CorticosteroidStart: 68-29-8677Mvnbpm 4 MG as directed Orally Once a day for 5 days Aug, Activemorphine sulfate 15 mg extended release oral tablet (20 sources)Opioid AgonistStart: 26-13-7999tevx 1 tablet by mouth every eight hoursMorphine 15 mg tablet extended release Active 15 MG PO Every 8 hours 90 30 December 22, 2024 Complies with drug therapyStart: 09-22-2024 End: 81-24-2523wsfh 1 tablet by mouth every twelve hoursMorphine 15 mg tablet extended release Discontinued 15 MG PO Q12H 60 November 28, 2024 December 22, 2024 10:18amStart: 08-30-2024 End: 28-08-6703didk 1 tablet by mouth every twelve hoursMorphine 15 mg tablet extended release Discontinued 15 MG PO Q12H 60 August 30, 2024 August 30, 2024 1:38pmStart: 05-09-2024 End: 93-85-8153dgok 1 tablet by mouth every twelve hoursMorphine 15 mg tablet extended release Discontinued 15 MG PO Q12H 60 June 23, 2024 July 31, 2024 9:57amStart: 04-26-2024 End: 58-77-1195ckgt 1 tablet by mouth every twelve hoursMorphine 15 mg tablet extended release Discontinued 15 MG PO Q12H 30 April 26, 2024 March 302024 11:24amStart: 04-26-2024 End: 37-90-9759spop 1 tablet by mouth every twelve hoursMorphine 15 mg tablet extended release Discontinued 15 MG PO Q12H 30 April 26, 2024 May 09, 2024 4:42pmStart: 04-26-2024 End: 06-90-9774xmdg 1 tablet by mouth every twelve hoursMorphine 15 mg tablet extended release Discontinued 15 MG PO Q12H 30 April 26, 2024 May 09, 2024 4:42pmStart: 65-15-2134jdkw 1 tablet by mouth every twelve hours for painMorphine Sulfate ER 15 MG 1 tablet for breakthrough pain only Orally every 12 hrs for 5 days MED TOBED UPON DISCHARGE DOS 07/21/2021 Jun, Active Multivitamin preparation (14 sources)take 1 tablet by mouth once dailyMulti Vitamin - 1 tablet Orally Once a day ActiveMv,Ca,Min-Folic Acid-Vit K1 (One-A-Day Women's 50 Plus) 400-20 mcg Tablet (13 sources)Start: 65-52-9422yjyo 50-400 tablets by mouth once dailyMv,Ca,Min- Folic Acid-Vit K1 (One-A-Day Women's 50 Plus) 400-20 mcg Tablet Active 1 TAB PO Daily July 07, 2021 12:00am Complies with drug therapyStart: 68-61-1937hoof 50-400 tablets by mouth once dailyMv,Ca,Min-Folic Acid-Vit K1 (One-A-Day Women's 50 Plus) 400-20 mcg Tablet Active 1 TAB PO Daily July 06, 2021 11:00pmStart: 84-02-0614cpli 50-400 tablets by mouth once dailyMv,Ca,Min-Folic Acid-Vit K1 (One-A-Day Women's 50 Plus) 400-20 mcg Tablet Active 1 TAB PO Daily July 07, 2021 12:00amMyrbetrig 25mg (8 sources)Start: 11-41-4995nehz 1 tablet by mouth once dailyMyrbetrig 25mg 1 Tablet Orally Once a day Feb, Activeondansetron 8 mg oral tablet (6 sources)Serotonin-3 Receptor AntagonistStart: 88-56-8353xogs 1 tablet by mouth three times daily as needed for nauseaOndansetron HCl 8 MG 1 tablet as needed for nausea Orally TID for 10 days MED TO BED UPON DISCHARGEDOS 07/21/2021 Jun, Activepolyethylene glycol 3350 30321 mg powder for oral solution (6 sources)Osmotic LaxativeStart: 90-87-1613VlfkBeu 17 GM 1 packet mixed with 8 ounces of fluid Orally Once a day for 7 days MED TO BED UPON DISCHARGE DOS 07/21/2021 Jun, Activepravastatin sodium 10 mg oral tablet (20 sources)HMG-CoA Reductase InhibitorStart: 01-18-2024 End: 07-28-4902Qcsxjjlxako 10 mg tablet Active 0 .ROUTE .COMPLEX 90 November 14, 2024 3:06pm TAKE 1 TABLET EVERY DAY Complies with drug therapyStart: 12-25-2010 End: 82-78-3148zvft 1 tablet by mouth once daily at bedtimePravastatin 10 mg tablet Discontinued 10 MG PO Daily at bedtime July 07, 2021 12:00am January 18, 2024 4:48pmComment on above:Take 1 tablet by mouth once daily.prednisoLONE acetate 10 mg/ml ophthalmic suspension (3 sources)CorticosteroidStart: 39-15-8551felyrrzjJJWI acetate (PRED FORTE, ECONOPRED PLUS) 1 % ophthalmic suspension USE DIRECTED BY PHYSICIAN, IN OPERATIVE EYE, BEGINNING ONE DAY AFTER SURGERY 5 mL 0 08/20/2021 ActiveStart: 70-91-9538fxidgdiyPMFF acetate (PRED FORTE, ECONOPRED PLUS) 1 % ophthalmic suspension USE DIRECTED BY PHYSICIAN, IN OPERATIVE EYE, BEGINNING ONE DAY AFTER SURGERY 5 mL 0 08/05/2021 ActiveComment on above:USE DIRECTED BY PHYSICIAN, IN OPERATIVE EYE, BEGINNING ONE DAY AFTER SURGERYVit A,C And V-Zvvfao-Uppddrry (Healthy Eyes) 300 mcg-200 mg-27 mg-2 mg Tablet (11 sources)Start: 01-74-0631sinv 1 tablet by mouth once dailyVit A,C And U-Tdslcp-Mmyvqauw (Healthy Eyes) 300 mcg-200 mg-27 mg-2 mg Tablet Active 1 TAB PO DailyApril 2021 11:00pmStart: 30-65-7502yqmz 1 tablet by mouth once dailyVit A,C And O-Uqwjoq-Uyxeluwv (Healthy Eyes) 300 mcg-200 mg-27 mg-2 mg Tablet Active 1 TAB PO DailyApril 2021 12:00amVitamin D 25 MCG (1000 UT) (20 sources)Start: 00-79-2367phqe 1 tablet by mouth once dailyVitamin D 25 MCG (1000 UT) 1 tablet Orally Once a day for 56 day(s) Jun, ActiveVitamin D3 250 MCG (09916 UT) (19 sources)Start: 73-79-0339Ilawoht D3 250 MCG (56205 UT) as directed Orally Feb, Active Completed/Discontinued Medications MedicationDrug Class(es)DatesSig (Normalized)Sig (Original)acetaminophen 500 mg oral tablet (20 sources)Start: 07-07-2021 End: 41-16-9251wwez 2 tablets by mouth three times daily as needed for pain Acetaminophen (Acetaminophen Extra Strength) 500 mg Tablet Discontinued 1000 MG PO Three times daily as needed for Pain July 07, 2021 12:00am May 31, 2023 4:18pmStart: 20-56-9973diqd 2 tablets by mouth every eight hours for pain acetaminophen (TYLENOL) 500 mg tablet TAKE TWO TABLETS BY MOUTH EVERY 8 HOURS FOR PAIN 0 07/16/2021ctiveComment on above:TAKE TWO TABLETS BY MOUTH EVERY 8 HOURS FOR PAINaspirin 81 mg delayed release oral tablet (20 sources)Platelet Aggregation Inhibitor, Nonsteroidal Anti-inflammatory Drug Start: 55-84-3748iivj 1 tablet by mouth twice dailyAspirin 81 MG 1 tablet Orally BID for 35 days MED TO BED UPON DISCHARGE DOS 07/21/2021Jun,ctive Start: 42-95-2760kgwm 1 tablet by mouth every twenty-four hoursAspirin 81 MG 1 tablet Orally Once a day for 30 day(s) Feb, ActiveStart: 12-25-2010 End: 72-00-4081oddd 1 tablet by mouth once dailyAspirin (Aspirin Low Dose) 81 mg Tablet,Delayed Release (Dr/Ec) Discontinued 81 MG PO Daily July 07, 2021 12:00am March 06, 2024 12:52pmComment on above:Take 1 tablet by mouth once daily.calcium carbonate 1250 mg / cholecalciferol 100 unt / vitamin k1 0.04 mg chewable tablet (13 sources)Vitamin D, Warfarin Reversal Agent, Vitamin KStart: 07-07-2021 End: 57-46-9109dkuo 2 tablets by mouth once dailyCalcium-Vitamin D3-Vitamin K (Viactiv) 500-100-40 mg-unit-mcg Tablet,Chewable Discontinued 2 TAB PODaily July 07, 2021 12:00am June 01, 2023 1:19pmcelecoxib 200 mg oral capsule (10 sources)Nonsteroidal Anti-inflammatory DrugStart: 53-89-0177esvc 1 capsule by mouth twice daily at mealtimecelecoxib (CELEBREX) 200 mg capsule Take 200 mg by mouth twice daily with meals. 0 07/16/2021 ActiveComment on above:Take 200 mg by mouth twice daily with meals.diphenhydrAMINE hydrochloride 25 mg oral tablet (13 sources)Histamine-1 Receptor AntagonistStart: 07-07-2021 End: 73-41-0972mmfc 1 tablet by mouth once daily at bedtime as needed Diphenhydramine Hcl (Sleep Aid (Diphenhydramine)) 25 mg Tablet Discontinued 25 MG PO Daily at bedtime as needed for Insomnia July 07, 2021 12:00am June 01, 2023 1:20pmferrous sulfate 325 mg oral tablet (4 sources)Start: 11-97-3632nhea 1 tablet by mouth three times dailyferrous sulfate 325 mg (65 mg iron) tablet TAKE 1 TABLET BY MOUTH 3 TIMES A DAY FOR 28 DAYS 0 07/10/2021 ActiveComment on above:TAKE 1 TABLET BY MOUTH 3 TIMES A DAY FOR 28 DAYSfurosemide 20 mg oral tablet (3 sources)Loop DiureticStart: 08-01-2024 End: 96-18-8155onyj 1 tablet by mouth once dailyFurosemide 20 mg tablet Discontinued 20 MG PO Daily August 01, 2024 12:00am September 22, 2024 10:14am gabapentin 300 mg oral capsule (20 sources)Anti-epileptic AgentStart: 06-29-2023 End: 43-98-6287xvjd 1 capsule by mouth three times dailyGabapentin 300 mg capsule Discontinued 300 MG PO Three times daily 270 90 September 22, 2024 10:30am September 22, 2024 10:41amStart: 07-07-2021 End: 77-13-9004ehze 1 tablet by mouth three times dailyGabapentin 600 mg tablet Discontinued 600 MG PO Three times daily July 07, 2021 12:00am June 29, 2023 2:57pmStart: 94-07-9108ovswqoykez (NEURONTIN) 600 mg tablettake 1 capsule by mouth every twenty-four hoursGabapentin 400 MG 1 tablet Orally Once a day for 7 days ActivelevoFLOXacin 500 mg oral tablet (9 sources)Quinolone AntimicrobialStart: 06-02-2023 End: 16-35-9647uazf 1 tablet by mouth once dailyLevofloxacin 500 mg tablet Discontinued 500 MG PO Daily June 02, 2023 1:00am June 29, 2023 2:29pm meloxicam 15 mg oral tablet (20 sources)Nonsteroidal Anti-inflammatory DrugStart: 02-27-2021 End: 84-31-3514zkqd 1 tablet by mouth every twenty-four hoursMeloxicam 15 MG 1 tablet Orally Once a day for 30 day(s) Feb, Not-Taking/PRNComment on above:TAKE 1 TABLET BY MOUTH EVERY DAY FOR 30 DAYS24 hr mirabegron 50 mg extended release oral tablet (20 sources)beta3-Adrenergic AgonistStart: 07-27-2023 End: 70-60-7461pfxm 1 tablet by mouth once dailyMirabegron (Myrbetriq) 50 mg tablet extended release 24 hr Discontinued 0 .ROUTE .COMPLEX October 25, 2023 9:59am December 20, 2023 10:17am TAKE 1 TABLET BY MOUTH EVERY DAY FOR 90 DAYS Start: 06-01-2023 End: 06-15-7565bxzs 1 tablet by mouth once dailyMirabegron (Myrbetriq) 50 mg tablet extended release 24 hr Discontinued 50 MG PO Daily July 27, 2023 12:00am July 27, 2023 3:47pmStart: 32-59-8396cldu 50 mg by mouth once daily MYRBETRIQ 50 mg Tb24 Take 50 mg by mouth once daily. 0 07/07/2021 ActiveComment on above:Take 50 mg by mouth once daily.naloxone hydrochloride 40 mg/ml nasal spray (2 sources)Opioid AntagonistStart: 10-21-2023 End: 25-37-3196Ahzprekm (Narcan) 4 mg/actuation spray,non-aerosol Discontinued 1 SPRAY INTRANASAL Q2M 2 September 12:00am March 06, 2024 12:54pm spray 1 dose into ONE nostril; alternate nostrils w each dose until help arrivesNaloxone (Narcan) 4 mg/actuation spray,non-aerosol (6 sources)Start: 10-21-2023 End: 09-18-0969Jpsbgytu (Narcan) 4 mg/actuation spray,non-aerosol Discontinued 1 SPRAY INTRANASAL Q2M September 12:00am March 06, 2024 12:54pm spray 1 dose into ONE nostril; alternate nostrils w each dose until help arrivesStart: 10-21-2023 End: 02-53-1269Utonmahf (Narcan) 4 mg/actuation spray,non-aerosol Discontinued 1 SPRAY INTRANASAL Q2M 2 September 11:00pm March 06, 2024 11:54am spray 1 dose into ONE nostril; alternate nostrils w each dose until help arrivesnaproxen 500 mg oral tablet (20 sources)Nonsteroidal Anti-inflammatory DrugStart: 06-24-2023 End: 84-51-7443isvw 1 tablet by mouth once dailyNaproxen 500 mg tablet Discontinued 0 .ROUTE .COMPLEX 90 August 18, 2023 12:30pm November 01, 2023 9:43am TAKE 1 TABLET BY MOUTH EVERY DAYStart: 04-30-2021 End: 51-33-4776lnwk 1 tablet by mouth once dailyNaproxen 500 mg tablet Discontinued 500 MG PO every day at noon July 07, 2021 12:00am June 24, 2023 1:04pmStart: 75-41-1012wxse 1 tablet by mouth every twelve hours at mealtime as neededNaproxen 500 MG 1 tablet with food or milk as needed Orally every 12 hrs Feb, ActiveComment on above:Take 500 mg by mouth once daily.Tiotropium-Olodaterol (9 sources)Anticholinergic, beta2-Adrenergic AgonistStart: 06-01-2023 End: 92-19-8974Htuuevyedn-Olodaterol (Stiolto Respimat) 2.5-2.5 mcg/actuation mist Discontinued INHALATION June 01, 2023 1:00am September 22, 2024 10:15am Start: 62-30-2438Ldtczlrofi-Olodaterol (Stiolto Respimat) 2.5-2.5 mcg/actuation mist Active INHALATION June 01, 2023 12:00amStart: 87-70-1919Vxxsklafww- Olodaterol (Stiolto Respimat) 2.5-2.5 mcg/actuation mist Active INHALATION June 01, 2023 1:00amoseltamivir 75 mg oral capsule (7 sources)Neuraminidase InhibitorStart: 06-02-2024 End: 00-52-5832fxun 1 capsule by mouth every twelve hoursOseltamivir (Tamiflu) 75 mg capsule Discontinued 75 MG PO Every 12 hours 10 June 02, 2024 1:00am June 27, 2024 2:13pm24 hr oxybutynin chloride 10 mg extended release oral tablet (1 source)Cholinergic Muscarinic AntagonistStart: 05-05-2021 End: 18-32-9496pexobzhzgq ER (DITROPAN XL) 10 mg 24 hr tabletoxyCODONE hydrochloride 10 mg oral tablet (20 sources)Opioid AgonistStart: 06-29-2023 End: 61-85-4151jwfm 1 tablet by mouth three times daily as needed for pain Oxycodone 10 mg tablet Discontinued 10 MG PO Three times daily as needed for pain 90 September 16, 2023 October 14, 2023 10:32amStart: 05-27-2023 End: 28-94-5640epxc 1 tablet by mouth every eight hours as needed for pain Oxycodone 15 mg tablet Discontinued 15 MG PO Every 8 hours as needed for pain 90 May 30pril 2023 2:57pmStart: 69-15-1205iqoh 1 tablet by mouth every eight hoursoxyCODONE HCl 15 MG 1 tablet Orally q8h for 30 days Apr, ActiveStart: 46-42-4300xqwa 1 tablet by mouth every eight hoursoxyCODONE HCl 15 MG 1 tablet Orally q8h for 30 days Feb, ActiveStart: 02-02-2023 take 1 tablet by mouth every eight hoursoxyCODONE HCl 15 MG 1 tablet Orally q8h for 30 days Jan, ActiveStart: 66-73-1917sllWQIETF HCl 15 MG 1 tablet Orally 1 tablet in the afternoon, 2 tablets at night for 30 days Dec, ActiveStart: 19-86-9083msePPJUBE HCl 15 MG 1 tablet Orally 1 tablet in the afternoon, 2 tablets at night for 30 days Sep, ActiveStart: 09-03-2022 oxyCODONE HCl 15 MG 1 tablet Orally 1 tablet in the afternoon, 2 tablets at night for 30 days Aug, ActiveStart: 26-95-8832ivrLXHFNC HCl 15 MG 1 tablet Orally 1 tablet in the afternoon, 2 tablets at night for 30 days Jun, ActiveStart: 07-07-2021 End: 48-34-6600iyzm 1 tablet by mouth twice dailyOxycodone 15 mg tablet Discontinued 15 MG PO Twice daily July 07, 2021 12:00am June 01, 2023 1: 21pmStart: 07-07-2021 End: 70-20-7401sdvr 7.5 mg by mouth once dailyOxycodone 15 mg tablet Discontinued 7.5 MG PO Daily July 07, 2021 12:00am June 01, 2023 1:21pm Start: 07-07-2021 End: 58-04-8152yvhs 7.5 mg by mouth once dailyOxycodone Discontinued 7.5 MG PO Daily July 07, 2021 12:00am June 01, 2023 1:21pmStart: 89-54-8814iyvt 1 tablet by mouth every four hours as needed for painoxyCODONE HCl 5 MG 1 tablet as needed for pain Orally every 4 hrs for 7 days MED TO BED UPON DISCHARGE DOS 07/21/2021 Jun, ActiveStart: 44-19-5426rlmj 1 tablet by mouth every six hoursoxyCODONE HCl 15 MG 1 tablet Orally every 6 hrs Feb, Active microencapsulated potassium chloride 10 meq extended release oral tablet (2 sources)Start: 08-01-2024 End: 66-40-9102Kxfpfbscx Chloride (Klor-Con M10) 10 mEq tablet,ER particles/crystals Discontinued 10 MEQ PO Daily August 01, 2024 12:00am September 22, 2024 10:15ampredniSONE 20 mg oral tablet (9 sources)Start: 06-02-2023 End: 55-67-9137xzdz 1 tablet by mouth twice dailyPrednisone 20 mg tablet Discontinued 20 MG PO Twice daily June 02, 2023 1:00am June 29, 2023 2:29pm 12 hr tapentadol 50 mg extended release oral tablet (1 source)Opioid AgonistStart: 06-19-2015 End: 06-95-3938pchqnafjhd (NUCYNTA ER) 50 mg Tb12 Take one tablet twice a day for pain 60 tablet 0 06/19/2015 07/30/2021 Discontinued (Course of therapy completed)Comment on above:Take one tablet twice a day for paintraMADol hydrochloride 50 mg oral tablet (10 sources)Opioid AgonistStart: 86-79-5604bhgy 1 tablet by mouth every six hours as neededtraMADol (ULTRAM) 50 mg tablet Take 50 mg by mouth every 6 hours as needed. 0 07/16/2021 ActiveComment on above:Take 50 mg by mouth every 6 hours as needed.Triamcinolone (20 sources)CorticosteroidStart: 83-55-6128Mmwxafj -40 mg Feb, 120 mg zolpidem tartrate 10 mg oral tablet (1 source)gamma-Aminobutyric Acid-ergic AgonistStart: 09-04-2014 End: 16-41-8437ojtgnzks (AMBIEN) 10 mg tab Take 1 tablet at bedtime. 0 09/04/2014 07/30/2021 Discontinued (Course of therapy completed)Comment on above:Take 1 tablet at bedtime. 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]29-43-1201WeypwdjXpsrvcrx (2 sources)Bilateral senile combined form cataracts of eyes; Translations: [Combined forms of age-related cataract, bilateral]ChronicChronic obstructive pulmonary disease and bronchiectasis (13 sources)Moderate chronic obstructive pulmonary disease; Translations: [Chronic obstructive pulmonary disease, unspecified]ChronicCongestive heart failure; nonhypertensive (9 sources)Congestive heart failure; Translations: [Heart failure, unspecified] Onset: [id number]r and other anemia (9 sources)Anemia of chronic disease; Translations: [Anemia in other chronic diseases classified elsewhere]01-51-1040TkqtuguHoyeyukkez and other anemia (1 source)Anemia in other chronic diseases classified elsewhere; Translations: [Anemia of other chronic disease]58-99-3757KjsglefMzvlygzgo of lipid metabolism (20 sources)Hyperlipidemia; Translations: [Other hyperlipidemia]Onset: 445067-18-2283GyukgygL Codes: Fall (7 sources)Fall; Translations: [Unspecified fall, initial encounter]07-25-2024 EpisodicEssential hypertension (8 sources)Hypertensive disorder; Translations: [Essential (primary) hypertension]74-86-7425BfdyxmrSdfzdbm on above:hx of-no medication currentlyProblem List clean-up per request of Phys. EHR CmteMycoses (2 sources)Histoplasmosis syndrome of left eye; Translations: [Histoplasmosis, unspecified]EpisodicOsteoarthritis (20 sources)Osteoarthritis of left knee joint; Translations: [Unilateral primary osteoarthritis, left knee]Onset: 05-28-2021 Resolved: 17-09-5407ZbpmbwfIoagkrvhgjzo (20 sources)Primary osteoporosis; Translations: [Age-related osteoporosis without current pathological fracture]Onset: 05-28-2021 Resolved: 42-34-7580OhdrszpBnfci aftercare (20 sources)Patient encounter status; Translations: [Aftercare following joint replacement surgery]ChronicOther aftercare (4 sources)Aftercare following joint replacement surgeryOnset: 08-07-2021 Resolved: 13-28-6678FmhicdsAxdan aftercare (8 sources)Patient encounter status; Translations: [Encounter for palliative care]91-72-0310GnovmiymYtczz aftercare (5 sources)Encounter for palliative care; Translations: [Encounter for palliative care]75-82-8764JkfmejzgTqyov and unspecified benign neoplasm (17 sources)History of polyp of colon; Translations: [History of colon polyps] EpisodicOther connective tissue disease (20 sources)Artificial knee joint present; Translations: [Presence of left artificial knee joint]40-55-6290NwvowosMjkwi connective tissue disease (4 sources)Presence of left artificial knee jointOnset: 08-07-2021 Resolved: 89-71-3411UsvxusvZzfnn connective tissue disease (1 source)Neuralgia and neuritis, unspecifiedEpisodicOther connective tissue disease (4 sources)Hand pain; Translations: [Pain in left hand]35-86-3333LrblisjmVnmev connective tissue disease (4 sources)Pain in left hand; Translations: [Pain in limb]18-85-5567Wlhorhou Other connective tissue disease (3 sources)Pain of left hand; Translations: [Pain in left hand]06-27-2024 EpisodicOther diseases of bladder and urethra (20 sources)Overactive bladder; Translations: [Overactive bladder]05-31-2023 ChronicOther diseases of bladder and urethra (1 source)Overactive bladderChronicOther eye disorders (2 sources)H/O: L cataract extraction; Translations: [Cataract extraction status, left eye]EpisodicOther fractures (5 sources)Fracture of rib; Translations: [Fracture of one rib, unspecified side, initial encounter for closedfracture]77-03-4906ZtjksxceKrbtr fractures (2 sources)Fracture of one rib, unspecified side, initial encounter for closed fracture; Translations: [Closedfracture of rib(s), unspecified]07-25-2024 EpisodicOther gastrointestinal disorders (8 sources)Constipation; Translations: [Constipation, unspecified]04-30-2024 EpisodicOther gastrointestinal disorders (5 sources)Constipation, unspecified; Translations: [Constipation, unspecified] 40-83-1066CqckwxuvClozo lower respiratory disease (16 sources)Dyspnea; Translations: [Shortness of breath]36-97-4917XtrhnrylLjlnp lower respiratory disease (2 sources)Shortness of breathEpisodicOther lower respiratory disease (7 sources)Cough; Translations: [Cough]11-91-3568JjvzalnqFdsgy nervous system disorders (5 sources)Complex regional pain syndrome type I; Translations: [Complex regional pain syndrome I, unspecified]Onset: 507518-88-1105YhukrttItozs nervous system disorders (19 sources)Expressive dysphasia; Translations: [Aphasia]41-69-9393OiqjjbhWionm nervous system disorders (17 sources)Peripheral neuropathic pain; Translations: [Unspecified mononeuropathy of bilateral lower limbs]29-55-9849EgwadkoBhldm nervous system disorders (5 sources)Unspecified mononeuropathy of bilateral lower limbs; Translations: [Unspecified hereditary and idiopathic peripheral neuropathy]ChronicOther nervous system disorders (9 sources)Metabolic encephalopathy; Translations: [Metabolic encephalopathy] 11-26-1600YuvyrreOhdkr nervous system disorders (1 source)Metabolic encephalopathy; Translations: [Metabolic encephalopathy] 87-33-8388CadweruFskye nervous system disorders (10 sources)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; Translations: [Neoplasm related pain (acute) (chronic)]77-67-3147VyplohkOdprk nervous system disorders (10 sources)Neoplasm related pain (acute) (chronic); Translations: [Neoplasm related pain (acute) (chronic)]74-16-8730DaagsptZjfgb nervous system disorders (1 source)Other speech disturbancesEpisodicOther non-traumatic joint disorders (6 sources)Pain in wrist; Translations: [Pain in left wrist]16-10-4089Vvhnrmvk Other non-traumatic joint disorders (2 sources)Pain in left wrist; Translations: [Pain in joint, forearm]Onset: 512952-01-4353HaixpltrZgybi non-traumatic joint disorders (2 sources)Pain of left wrist; Translations: [Pain in left wrist]03-07-2024 EpisodicOther nutritional; endocrine; and metabolic disorders (2 sources)Body mass index 30+ - obesity; Translations: [Obesity, unspecified] Onset: 672814-74-3544FojluchTsvem skin disorders (6 sources)Generalized hyperhidrosis; Translations: [GENERALIZED HYPERHIDROSIS] Onset: 28-41-1909CncrrkodJeqzx skin disorders (16 sources)Excessive sweating; Translations: [Generalized hyperhidrosis] 50-55-3600DlyohtpgCgdmemgnx (except that caused by tuberculosis or sexually transmitted disease) (10 sources)Pneumonia; Translations: [Pneumonia, unspecified organism]06-02-2023 EpisodicPulmonary heart disease (20 sources)Pulmonary hypertension; Translations: [Pulmonary hypertension, unspecified]ChronicResidual codes; unclassified (5 sources)Confusional state; Translations: [Disorientation, unspecified] 12-36-0153BxsqdqtjEynbduqn codes; unclassified (2 sources)Disorientation, unspecified; Translations: [Unspecified psychosis] 00-32-8143QcxlfcurDvgqtmsu codes; unclassified (4 sources)Edema; Translations: [Edema, unspecified]98-84-6633PsohuaqoJsourkbg codes; unclassified (1 source)Edema, unspecified; Translations: [Edema]52-63-0857AvgixukkItgehrv detachments; defects; vascular occlusion; and retinopathy (9 sources)Degenerative disorder of macula ; Translations: [Unspecified macular degeneration]24-52-5551JdechukKddfiwarpa (except in labor) (10 sources)Sepsis; Translations: [Sepsis, unspecified organism]06-02-2023 EpisodicSpondylosis; intervertebral disc disorders; other back problems (14 sources)Pain in thoracic spine; Translations: [Chronic thoracic back pain] EpisodicUnclassified (2 sources)CONTACT W/AND (SUSP) EXPOS COVID-19; Translations: [CONTACT W/AND (SUSP) EXPOS COVID-19]Onset: 14-48-8251Zdeqa infection (1 source)COVID-19; Translations: [COVID-19]Onset: 04-09-2021 Past or Other Problems Problem ClassificationProblemDateDocumented DateEpisodic/ChronicDiabetes mellitus without complication (1 source)Impaired fasting glucose; Translations: [IMPAIRED FASTING GLUCOSE] Onset: 11-17-6025DeingjtkKspfi aftercare (2 sources)Other long winder tender (current) drug therapy; Translations: [OTH JAIL CURRENT DRUG THERAPY]Onset: 05-28-2021 Resolved: 04-35-3922VqjswafpCndzn circulatory disease (4 sources)Other specified symptoms and signs involving the circulatory and respiratory systems; Translations:[OTH SPEC SX SIGNS INVLV CIRC RS]Onset: 19-43-5674InuoyuroDwpci connective tissue disease (4 sources)Neuropathic pain; Translations: [Neuralgia and neuritis, unspecified] Onset: 507746-14-0874XmkzloydNqnaz lower respiratory disease (4 sources)Dyspnea, unspecified; Translations: [DYSPNEA UNSPECIFIED]Onset: 66-85-2374LxfqpyzcAbhpo nervous system disorders (4 sources)Burning sensation; Translations: [Other disturbances of skin sensation]Onset: 897597-78-9327HlhqfyilKwlsh non-traumatic joint disorders (4 sources)Pain in left knee; Translations: [PAIN IN LEFT KNEE]Onset: 02-04-2021 EpisodicUnclassified (1 source)CONTACT W/AND (SUSP) EXPOS COVID-19; Translations: [CONTACT W/AND (SUSP) EXPOS COVID-19]Onset: 04-03-2021 Results Test NameValueInterpretationReference RangeFacilityBasophils Auto (Bld) [#/Vol] on 68-27-9262Yhgvevsmn (Bld) [#/Vol]0.1 10 3/uL0.0-0.1FSt. Francis HospitalBasophils/100 WBC Auto (Bld)on 17-82-4768Dmxprsndy/100 WBC (Bld)0.9 % 0.2-2.0[facility] HospitalEosinophils/100 WBC Auto (Bld)on 03-22-3228Yoatbglwlvd/100 WBC (Bld)3.8 %0.9-7.0[facility] Erythrocyte distribution width Auto (RBC) [Ratio]on 55-82-4089Gqhggbgbbxt distribution width (RBC) [Ratio]13.2 %11.0-15.0[facility] Estimated glomerular filtration rate (GFR) non- Americanon 08-11-2024 GFR/1.73 sq M.predicted among non-blacks MDRD (S/P/Bld) [Vol rate/Area]38 mL/min/{1.73_m2}Low>=60 mL/min/1.73m 2FSt. Francis HospitalGlobulin Calc (S) [Mass/Vol]on 22-86-7563Ufhywwli (S) [Mass/Vol]3.4 g/dLAvita Health System Galion HospitalHematocrit Auto (Bld) [Volume fraction]on 08-11-2024 Hematocrit (Bld) [Volume fraction]37.9 %36.0-48.0[facility] HospitalHemoglobin [Mass/volume] in Bloodon 53-66-8116Pzsmqbkrbv (Bld) [Mass/Vol] 11.7 g/dLLow12.0-16.0[facility] HospitalIron binding capacity [Mass/volume] in Serum or Plasmaon 07-51-3835Tmcp binding capacity [Mass/Vol] 311.0 ug/dL250.0-450.0[facility] HospitalIron saturation [Mass Fraction] in Serum or Plasmaon 93-00-5087Ullf saturation [Mass fraction]26.4 % [facility] HospitalLaboratory - Chemistry and Chemistry - challengeon 30-11-4571Ydyybqy [Mass/Vol]3.8 g/dL3.4-5.0[facility] HospitalALP [Catalytic activity/Vol]82 U/S77-100TwjwwudxsAvita Health System Galion HospitalALT [Catalytic activity/Vol]29 U/B25-42MpvqprlxbAvita [facility] Hospital AST [Catalytic activity/Vol]21 U/Y37-48LpuqwbhlzAvita Health System [facility] Hospital Bilirubin [Mass/Vol]0.5 mg/dL0.2-1.0[facility] HospitalCalcium [Mass/Vol]9.4 mg/dL8.5-10.1FSt. Francis HospitalChloride [Moles/Vol] 103 mmol/C10-938LsvypbpnfAvita Health System Galion HospitalCO2 [Moles/Vol]34.1 mmol/LHigh 21.0-32.0[facility] HospitalCobalamin (Vitamin B12) [Mass/Vol]1895 pg/cIIiqabmmf079-1789YlonvnexyAvita Health System Galion HospitalComment on above: Performed at: [facility] [id number] Director: Larry Nicolas PhD, Phone: [phone] [Mass/Vol]1.33 mg/dLHigh0.55-1.02[facility] HospitalFerritin [Mass/Vol]108.0 ng/mL8.0-252.0[facility] HospitalGFR/1.73 sq M.predicted MDRD (S/P/Bld) [Vol rate/Area]47 mL/min/{1.73_m2}Low>=60 mL/min/1.73m 2FSt. Francis HospitalGlucose [Mass/Vol]107 mg/xTVtdn72-892WhfvswggdAvita Health System Galion HospitalIron [Mass/Vol]82.0 ug/dL50.0-170.0[facility] HospitalPotassium [Moles/Vol]5.1 mmol/L3.5-5.1FSt. Francis Hospital Protein [Mass/Vol]7.2 g/dL6.4-8.2FDayton Children's Hospitalodium [Moles/Vol]141 mmol/I157-844HagkelxmpAvita Health System Galion HospitalUrea nitrogen [Mass/Vol]29.0 mg/dLHigh7.0-18.0[facility] HospitalUrea nitrogen/Creatinine [Mass ratio]21.8 mg/mgAvita Health System Galion Hospital Laboratory - Hematology and Cell countson 73-52-2391KEN (Bld) [Velocity]28 mm/h <=30[facility] HospitalImmature granulocytes/100 WBC (Bld)0.7 % High0.0-0.5FSt. Francis HospitalLeukocytes [#/volume] corrected for nucleated erythrocytes in Blood by Automated counon 44-64-7762VIX corrected for nucl RBC Auto (Bld) [#/Vol]8.1 10 3/uL4.0-11.0[facility] Lymphocytes Auto (Bld) [#/Vol]on 81-25-4332Vnmspydhrgx (Bld) [#/Vol]2.9 10 3/uL 1.2-3.8[facility] HospitalLymphocytes/100 WBC Auto (Bld)on 51-77-0026Uiigqavdeqo/100 WBC (Bld)35.7 %20.5-60.0[facility] HospitalH Auto (RBC) [Entitic mass]on 97-48-5074XKL (RBC) [Entitic mass]30.2 pg 26.7-34.0[facility] HospitalMCHC Auto (RBC) [Mass/Vol]on 88-88-1757OYDR (RBC) [Mass/Vol]30.9 g/dL29.9-35.2FSt. Francis HospitalMCV Auto (RBC) [Entitic vol]on 73-03-4363WYF (RBC) [Entitic vol]97.9 fL 81.0-99.0[facility] HospitalMonocytes Auto (Bld) [#/Vol]on 98-19-9688Xyywpnqna (Bld) [#/Vol]0.6 10 3/uL0.3-0.8[facility] HospitalMonocytes/100 WBC Auto (Bld)on 55-45-5955Qfkngwdxq/100 WBC (Bld)7.5 % 1.7-12.0[facility] HospitalNeutrophils Auto (Bld) [#/Vol]on 69-66-8674Cesprvdojfk (Bld) [#/Vol]4.2 10 3/uL1.4-6.5FSt. Francis HospitalNeutrophils/100 WBC Auto (Bld)on 09-55-9778Bofrmupjgii/100 WBC (Bld)51.4 % 43.0-75.0[facility] HospitalNo Panel Informationon 07-82-1527U- Reactive Protein, Quantitative<0.50 mg/dL<=0.50[facility] Eosinophils # (Auto)0.3 10 3/uL0.0-0.7FSt. Francis HospitalImmature Granulocyte # (Auto)0.06 10 3/uLHigh0.00-0.03[facility] Platelet mean volume Auto (Bld) [Entitic vol]on 89-37-8823Ztnxlxil mean volume (Bld) [Entitic vol]9.9 fL9.5-13.5FSt. Francis HospitalPlatelets Auto (Bld) [#/Vol]on 04-71-0196Spbuilyzi (Bld) [#/Vol]318 10 3/oK669-568OjytwbivuAvita Health System Galion HospitalRBC Auto (Bld) [#/Vol]on 92-32-4135KNO (Bld) [#/Vol]3.87 10 6/uLLow4.20-5.40[facility] Hospitalerum or plasma albumin/globulin mass ratioon 46-76-4023Ghyckvc/Globulin [Mass ratio]1.1 {ratio} [facility] Hospitalerum or plasma anion gap determinationon 14-85-9598Rzoii gap [Moles/Vol]9.0 mmol/LFSt. Francis Hospital Estimated glomerular filtration rate (GFR) non- Americanon 08-01-2024 GFR/1.73 sq M.predicted among non-blacks MDRD (S/P/Bld) [Vol rate/Area]47 mL/min/{1.73_m2}Low>=60 mL/min/1.73m 2FSt. Francis Hospital Laboratory - Chemistry and Chemistry - challengeon 81-68-8002Imbexng [Mass/Vol] 9.3 mg/dL8.5-10.1FSt. Francis HospitalChloride [Moles/Vol]104 mmol/L 98-107[facility] HospitalCO2 [Moles/Vol]27.8 mmol/L21.0-32.0 [facility] HospitalCreatinine [Mass/Vol]1.12 mg/dLHigh0.55-1.02 [facility] HospitalGFR/1.73 sq M.predicted MDRD (S/P/Bld) [Vol rate/Area]57 mL/min/{1.73_m2}Low>=60 mL/min/1.73m 2FSt. Francis HospitalGlucose [Mass/Vol]108 mg/vGAtbb24-932LjfjdtbszAvita Health System [facility] Hospital Natriuretic peptide B (Bld) [Mass/Vol]4619.0 pg/mLCritically high<=1800.0 [facility] HospitalComment on above:RESULTS CALLED TO TEVIN ELLIS Potassium [Moles/Vol]4.2 mmol/L3.5-5.1FDayton Children's Hospitalodium [Moles/Vol]142 mmol/B543-423WcwsuvlyoAvita Health System Galion HospitalUrea nitrogen [Mass/Vol]16.0 mg/dL7.0-18.0[facility] HospitalUrea nitrogen/Creatinine [Mass ratio]14.3 mg/mgOhioHealth Grady Memorial Hospitalerum or plasma anion gap determinationon 23-63-5627Vpvph gap [Moles/Vol]14.4 mmol/L [facility] HospitalBasophils Auto (Bld) [#/Vol]on 07-28-2024 Basophils (Bld) [#/Vol]Automated basophil count0.0-0.1FSt. Francis HospitalBasophils (Bld) [#/Vol]0.0 10 3/uL0.0-0.1FSt. Francis HospitalBasophils/100 WBC Auto (Bld)on 93-27-5919Vrntlulta/100 WBC (Bld)Automated basophil %0.2-2.0[facility] HospitalBasophils/100 WBC (Bld)0.4 % 0.2-2.0[facility] HospitalEosinophils/100 WBC Auto (Bld)on 07-87-8587Nssjklrsfyo/100 WBC (Bld)Automated eosinophil %0.9-7.0[facility] HospitalEosinophils/100 WBC (Bld)1.0 %0.9-7.0[facility] HospitalErythrocyte distribution width Auto (RBC) [Ratio]on 07-28-2024 Erythrocyte distribution width (RBC) [Ratio]Erythrocyte distribution width [Ratio] by Automated count11.0-15.0[facility] HospitalErythrocyte distribution width (RBC) [Ratio]12.5 %11.0-15.0[facility] Estimated glomerular filtration rate (GFR) non- Americanon 07-28-2024 GFR/1.73 sq M.predicted among non-blacks MDRD (S/P/Bld) [Vol rate/Area]Estimated glomerular filtration rate (GFR) non- AmericanLow>=60 mL/min/1.73m 2 [facility] HospitalGFR/1.73 sq M.predicted among non-blacks MDRD (S/P/Bld) [Vol rate/Area]51 mL/min/{1.73_m2}Low>=60 mL/min/1.73m 2FSt. Francis HospitalHematocrit Auto (Bld) [Volume fraction]on 07-28-2024 Hematocrit (Bld) [Volume fraction]Hematocrit [Volume Fraction] of Blood by Automated arsqwYyu31.0-48.0[facility] HospitalHematocrit (Bld) [Volume fraction]31.0 %Low36.0-48.0[facility] HospitalHemoglobin [Mass/volume] in Bloodon 10-12-2092Bwzyjvhvmv (Bld) [Mass/Vol]Hemoglobin [Mass/volume] in UfabgQqh07.0-16.0[facility] HospitalHemoglobin (Bld) [Mass/Vol]9.9 g/dLLow12.0-16.0[facility] HospitalLaboratory - Chemistry and Chemistry - challengeon 73-63-2836Rutoxpn [Mass/Vol]9.0 mg/dL 8.5-10.1FSt. Francis HospitalChloride [Moles/Vol]110 mmol/LHigh 98-107[facility] HospitalCO2 [Moles/Vol]26.0 mmol/L21.0-32.0 [facility] HospitalCreatinine [Mass/Vol]1.05 mg/dLHigh0.55-1.02 [facility] HospitalGFR/1.73 sq M.predicted MDRD (S/P/Bld) [Vol rate/Area]mL/min/{1.73_m2}>=60 mL/min/1.73m 2FSt. Francis Hospital Glucose [Mass/Vol]112 mg/jLVhch97-666NesnkoacuAvita Health System Galion HospitalPotassium [Moles/Vol]5.1 mmol/L3.5-5.1FDayton Children's Hospitalodium [Moles/Vol] 144 mmol/P074-715BrucjusnsAvita Health System Galion HospitalUrea nitrogen [Mass/Vol]24.0 mg/dLHigh7.0-18.0[facility] HospitalUrea nitrogen/Creatinine [Mass ratio]22.9 mg/mgAvita Health System Galion HospitalLaboratory - Hematology and Cell countson 81-48-9816Xcfozyhh granulocytes/100 WBC (Bld)0.8 %High0.0-0.5 [facility] HospitalLeukocytes [#/volume] corrected for nucleated erythrocytes in Blood by Automated counon 12-81-0458RSD corrected for nucl RBC Auto (Bld) [#/Vol]Leukocytes [#/volume] corrected for nucleated erythrocytes in Blood by Automated coun4.0-11.0[facility] HospitalWBC corrected for nucl RBC Auto (Bld) [#/Vol]7.4 10 3/uL4.0-11.0[facility] HospitalLymphocytes Auto (Bld) [#/Vol]on 54-66-6066Llnairkaczl (Bld) [#/Vol] Lymphocytes [#/volume] in Blood by Automated count1.2-3.8[facility] HospitalLymphocytes (Bld) [#/Vol]1.9 10 3/uL1.2-3.8[facility] HospitalLymphocytes/100 WBC Auto (Bld)on 57-11-8088Lrpxxjrjfio/100 WBC (Bld)Lymphocytes/100 leukocytes in Blood by Automated count20.5-60.0[facility] HospitalLymphocytes/100 WBC (Bld)25.3 %20.5-60.0[facility] HospitalMCH Auto (RBC) [Entitic mass]on 34-07-7387PYR (RBC) [Entitic mass]MCH [Entitic mass] by Automated count26.7-34.0[facility] CenterMCH (RBC) [Entitic mass]31.0 pg26.7-34.0[facility] HospitalMCHC Auto (RBC) [Mass/Vol]on 96-66-6959RAOS (RBC) [Mass/Vol]MCHC [Mass/volume] by Automated count29.9-35.2FSt. Francis HospitalMCHC (RBC) [Mass/Vol]31.9 g/dL29.9-35.2FSt. Francis HospitalMCV Auto (RBC) [Entitic vol]on 18-42-1654GXZ (RBC) [Entitic vol]MCV [Entitic volume] by Automated count81.0-99.0[facility] HospitalV (RBC) [Entitic vol] 97.2 fL81.0-99.0[facility] HospitalMonocytes Auto (Bld) [#/Vol]on 52-52-5556Plcxladiv (Bld) [#/Vol]Automated blood monocyte count0.3-0.8[facility] HospitalMonocytes (Bld) [#/Vol]0.4 10 3/uL0.3-0.8[facility] HospitalMonocytes/100 WBC Auto (Bld)on 30-69-3841Ftzxfgxap/100 WBC (Bld)Automated monocyte %1.7-12.0[facility] Monocytes/100 WBC (Bld)5.6 %1.7-12.0[facility] HospitalNeutrophils Auto (Bld) [#/Vol]on 92-54-7053Datjvqlbqxq (Bld) [#/Vol]Neutrophils [#/volume] in Blood by Automated count1.4-6.5FSt. Francis HospitalNeutrophils (Bld) [#/Vol]4.9 10 3/uL1.4-6.5FSt. Francis HospitalNeutrophils/100 WBC Auto (Bld)on 77-03-3164Hnevxtrlbsj/100 WBC (Bld)Automated neutrophil % 43.0-75.0[facility] HospitalNeutrophils/100 WBC (Bld)66.9 % 43.0-75.0[facility] HospitalNo Panel Informationon 07-28-2024 Eosinophils # (Auto)0.1 10 3/uL0.0-0.7FSt. Francis HospitalImmature Granulocyte # (Auto)0.06 10 3/uLHigh0.00-0.03[facility] Platelet mean volume Auto (Bld) [Entitic vol]on 39-37-6165Tthnslgx mean volume (Bld) [Entitic vol]Platelet mean volume [Entitic volume] in Blood by Automated count9.5-13.5FSt. Francis HospitalPlatelet mean volume (Bld) [Entitic vol]10.5 fL9.5-13.5FSt. Francis HospitalPlatelets Auto (Bld) [#/Vol]on 67-99-7039Xkougusee (Bld) [#/Vol]Platelets [#/volume] in Blood by Automated oydcg014-825BsbomkjytAvita Health System Galion HospitalPlatelets (Bld) [#/Vol]164 10 3/sB603-384OjjxqnlfcAvita Health System Galion HospitalRBC Auto (Bld) [#/Vol] on 88-04-5375GBC (Bld) [#/Vol]Erythrocytes [#/volume] in Blood by Automated countLow4.20-5.40[facility] HospitalRBC (Bld) [#/Vol]3.19 10 6/uL Low4.20-5.40[facility] Hospitalerum or plasma anion gap determinationon 19-58-7612Gjuhu gap [Moles/Vol]Serum or plasma anion gap determinationAvita Health System Galion HospitalAnion gap [Moles/Vol]13.1 mmol/L [facility] HospitalErythrocyte distribution width Auto (RBC) [Ratio]on 84-45-5297Ypbpxblstsr distribution width (RBC) [Ratio]Erythrocyte distribution width [Ratio] by Automated count11.0-15.0[facility] HospitalErythrocyte distribution width (RBC) [Ratio]12.6 %11.0-15.0[facility] HospitalEstimated glomerular filtration rate (GFR) non- Americanon 64-86-2291HIC/1.73 sq M.predicted among non-blacks MDRD (S/P/Bld) [Vol rate/Area]Estimated glomerular filtration rate (GFR) non- Low>=60 mL/min/1.73m 2FSt. Francis HospitalGFR/1.73 sq M.predicted among non-blacks MDRD (S/P/Bld) [Vol rate/Area]35 mL/min/{1.73_m2}Low>=60 mL/min/1.[address]m [address] [place], [place] [address]Hematocrit Auto (Bld) [Volume fraction]on 86-93-7584Lkhpjnfeml (Bld) [Volume fraction]Hematocrit [Volume Fraction] of Blood by Automated irslsGnp65.0-48.0[facility] HospitalHematocrit (Bld) [Volume fraction]29.5 %Low36.0-48.0[facility] HospitalHemoglobin [Mass/volume] in Bloodon 77-88-9145Qpwyyjyizx (Bld) [Mass/Vol]Hemoglobin [Mass/volume] in SgtidHxf44.0-16.0[facility] HospitalHemoglobin (Bld) [Mass/Vol]9.4 g/dLLow12.0-16.0[facility] HospitalLaboratory - Chemistry and Chemistry - challengeon 07-27-2024 Calcium [Mass/Vol]9.1 mg/dL8.5-10.1FSt. Francis HospitalChloride [Moles/Vol]110 mmol/QRapm33-214NkomieyhkAvita Health System Galion HospitalCO2 [Moles/Vol] 29.1 mmol/L21.0-32.0[facility] HospitalCreatinine [Mass/Vol]1.46 mg/dLHigh0.55-1.02[facility] HospitalGFR/1.73 sq M.predicted MDRD (S/P/Bld) [Vol rate/Area]42 mL/min/{1.73_m2}Low>=60 mL/min/1.[address]m [address] [place], [place] [address]Glucose [Mass/Vol]114 mg/mRSjbz06-343PuduzjfazAvita Health System Gal[facility] HospitalPotassium [Moles/Vol]5.6 mmol/LHigh3.5-5.1FDayton Children's Hospitalodium [Moles/Vol]144 mmol/L628-804PvfryvfpuAvita Health System Galion HospitalUrea nitrogen [Mass/Vol]46.0 mg/dLHigh7.0-18.0[facility] HospitalUrea nitrogen/Creatinine [Mass ratio]31.5 mg/mgAvita Health System Galion HospitalLeukocytes [#/volume] corrected for nucleated erythrocytes in Blood by Automated counon [id number] corrected for nucl RBC Auto (Bld) [#/Vol] Leukocytes [#/volume] corrected for nucleated erythrocytes in Blood by Automated coun4.0-11.0[facility] HospitalWBC corrected for nucl RBC Auto (Bld) [#/Vol]6.2 10 3/uL4.0-11.0[facility] Auto (RBC) [Entitic mass]on [id number] (RBC) [Entitic mass]MCH [Entitic mass] by Automated count26.7-34.0P[facility]rene [facility] (RBC) [Entitic mass]30.6 pg26.7-34.0[facility] Auto (RBC) [Mass/Vol] on 98-60-2962ZEWD (RBC) [Mass/Vol]MCHC [Mass/volume] by Automated count29.9-35.2 [facility] ([facility]BC) [Mass/Vol]31.9 g/dL29.9-35.2 [facility] HospitalV Auto (RBC) [Entitic vol]on 17-64-8269OIQ (RBC) [Entitic vol]MCV [Entitic volume] by Automated count81.0-99.0[facility] HospitalV (RBC) [Entitic vol]96.1 fL81.0-99.0[facility] HospitalPlatelet mean volume Auto (Bld) [Entitic vol]on 74-31-0014Mlcfpqgb mean volume (Bld) [Entitic vol]Platelet mean volume [Entitic volume] in Blood by Automated count9.5-13.5FSt. Francis HospitalPlatelet mean volume (Bld) [Entitic vol]10.1 fL9.5-13.5FSt. Francis HospitalPlatelets Auto (Bld) [#/Vol]on 01-85-3872Tqglmxxrz (Bld) [#/Vol]Platelets [#/volume] in Blood by Automated lgyvw600-947Mpbqyzxmt Regional Medical CenterPlatelets (Bld) [#/Vol]178 10 3/bL772-954OfcgjqdmvAvita Health System Galion HospitalRBC Auto (Bld) [#/Vol] on 39-27-7193MJA (Bld) [#/Vol]Erythrocytes [#/volume] in Blood by Automated countLow4.20-5.40[facility] HospitalRBC (Bld) [#/Vol]3.07 10 6/uL Low4.20-5.40[facility] Hospitalerum or plasma anion gap determinationon 22-26-4748Hyhuu gap [Moles/Vol]Serum or plasma anion gap determinationAvita Health System Galion HospitalAnion gap [Moles/Vol]10.5 mmol/L [facility] HospitalErythrocyte distribution width Auto (RBC) [Ratio]on 74-64-0860Kqjmejyqowx distribution width (RBC) [Ratio]Erythrocyte distribution width [Ratio] by Automated count11.0-15.0[facility] HospitalErythrocyte distribution width (RBC) [Ratio]13.0 %11.0-15.0[facility] HospitalEstimated glomerular filtration rate (GFR) non- Americanon 57-84-4755YRX/1.73 sq M.predicted among non-blacks MDRD (S/P/Bld) [Vol rate/Area]Estimated glomerular filtration rate (GFR) non- Low>=60 mL/min/1.73m 2FSt. Francis HospitalGFR/1.73 sq M.predicted among non-blacks MDRD (S/P/Bld) [Vol rate/Area]15 mL/min/{1.73_m2}Low>=60 mL/min/1.73m [address] [place], [place] [address]Hematocrit Auto (Bld) [Volume fraction]on 93-58-9429Fbyvqppmcr (Bld) [Volume fraction]Hematocrit [Volume Fraction] of Blood by Automated ukmqgSbu37.0-48.0[facility] HospitalHematocrit (d) [Volume fraction]29.7 %Low36.0-48.0[facility] HospitalHemoglobin [Mass/volume] in Bloodon 51-65-9540Lbysbyccft (Bld) [Mass/Vol]Hemoglobin [Mass/volume] in UfvdwVic22.0-16.0[facility] HospitalHemoglobin (Bld) [Mass/Vol]9.4 g/dLLow12.0-16.0[facility] HospitalLaboratory - Chemistry and Chemistry - challengeon 07-26-2024 Potassium [Moles/Vol]5.3 mmol/LHigh3.5-5.1FSt. Francis Hospital Calcium [Mass/Vol]8.9 mg/dL8.5-10.1FSt. Francis HospitalChloride [Moles/Vol]106 mmol/T24-505HcdzhcpagAvita Health System Galion HospitalCO2 [Moles/Vol]27.2 mmol/L21.0-32.0[facility] HospitalCreatinine [Mass/Vol]3.07 mg/dL High0.55-1.02[facility] HospitalGFR/1.73 sq M.predicted MDRD (S/P/Bld) [Vol rate/Area]18 mL/min/{1.73_m2}Low>=60 mL/min/1.73m 2FSt. Francis HospitalGlucose [Mass/Vol]113 mg/rGHgzp13-253PrlgozntgOhioHealth Grady Memorial Hospitalodium [Moles/Vol]141 mmol/V111-276YhnysokshAvita Health System Galion HospitalUrea nitrogen [Mass/Vol]78.0 mg/dLCritically high7.0-18.0[facility] HospitalComment on above:RESULTS CALLED TO LAURE NELSON RN @BY Maria Victoria Pearl 0617Urea nitrogen/Creatinine [Mass ratio]25.4 mg/mg [facility] HospitalLeukocytes [#/volume] corrected for nucleated erythrocytes in Blood by Automated counon 54-60-7888DTB corrected for nucl RBC Auto (Bld) [#/Vol]Leukocytes [#/volume] corrected for nucleated erythrocytes in Blood by Automated coun4.0-11.0[facility] HospitalWBC corrected for nucl RBC Auto (Bld) [#/Vol]7.2 10 3/uL4.0-11.0[facility] HospitalMCH Auto (RBC) [Entitic mass]on 27-03-0357XEF (RBC) [Entitic mass]MCH [Entitic mass] by Automated count26.7-34.0[facility] (RBC) [Entitic mass]31.0 pg26.7-34.0[facility] HospitalHC Auto (RBC) [Mass/Vol]on 63-52-9469MOXY (RBC) [Mass/Vol]MCHC [Mass/volume] by Automated count29.9-35.2FUniversity Hospitals Geauga Medical CenterHC (RBC) [Mass/Vol] 31.6 g/dL29.9-35.2FUniversity Hospitals Geauga Medical CenterV Auto (RBC) [Entitic vol] on 23-95-2857LPM (RBC) [Entitic vol]MCV [Entitic volume] by Automated count 81.0-99.0[facility] HospitalV (RBC) [Entitic vol]98.0 fL 81.0-99.0[facility] HospitalPlatelet mean volume Auto (Bld) [Entitic vol]on 32-60-3737Zcaijxmm mean volume (Bld) [Entitic vol]Platelet mean volume [Entitic volume] in Blood by Automated count9.5-13.5FSt. Francis HospitalPlatelet mean volume (Bld) [Entitic vol]10.0 fL9.5-13.5FSt. Francis HospitalPlatelets Auto (Bld) [#/Vol]on 48-35-1716Elfvmradb (Bld) [#/Vol]Platelets [#/volume] in Blood by Automated ymdot038-576ZvzvxnpwrAvita Health System Galion HospitalPlatelets (Bld) [#/Vol]185 10 3/vP019-698FiuvcykvmAvita Health System Galion HospitalRBC Auto (Bld) [#/Vol]on 18-37-4752NDE (Bld) [#/Vol]Erythrocytes [#/volume] in Blood by Automated countLow4.20-5.40[facility] HospitalRBC (Bld) [#/Vol]3.03 10 6/uLLow4.20-5.40[facility] Serum or plasma anion gap determinationon 61-17-5789Jdjxg gap [Moles/Vol]Serum or plasma anion gap determinationAvita Health System Galion HospitalAnion gap [Moles/Vol]13.6 mmol/LFSt. Francis HospitalBasophils Auto (Bld) [#/Vol]on 31-50-9467Peyzbxbvk (Bld) [#/Vol]Automated basophil count0.0-0.1 [facility] HospitalBasophils (Bld) [#/Vol]0.0 10 3/uL0.0-0.1 [facility] HospitalBasophils/100 WBC Auto (Bld)on 07-25-2024 Basophils/100 WBC (Bld)Automated basophil %0.2-2.0[facility] HospitalBasophils/100 WBC (Bld)0.4 %0.2-2.0[facility] Eosinophils/100 WBC Auto (Bld)on 98-98-9188Mhcrttvrofb/100 WBC (Bld)Automated eosinophil %0.9-7.0[facility] HospitalEosinophils/100 WBC (Bld)3.4 %0.9-7.0[facility] HospitalErythrocyte distribution width Auto (RBC) [Ratio]on 46-38-6266Tjfnrykupti distribution width (RBC) [Ratio] Erythrocyte distribution width [Ratio] by Automated count11.0-15.0[facility] HospitalErythrocyte distribution width (RBC) [Ratio]12.9 % 11.0-15.0[facility] HospitalEstimated glomerular filtration rate (GFR) non- Americanon 18-41-7522LYC/1.73 sq M.predicted among non-blacks MDRD (S/P/Bld) [Vol rate/Area]Estimated glomerular filtration rate (GFR) non- AmericanLow>=60 mL/min/1.73m [address] [place], [place] [address]GFR/1.73 sq M.predicted among non-blacks MDRD (S/P/Bld) [Vol rate/Area]11 mL/min/{1.73_m2}Low>=60 mL/min/1.[address]m [address] [place], [place] [address]Globulin Calc (S) [Mass/Vol]on 16-37-0099Hoknvdtr (S) [Mass/Vol]Serum globulin measurement by calculation (mass/volume)[facility] Globulin (S) [Mass/Vol]3.3 g/dLAvita Health System Galion HospitalHematocrit Auto (Bld) [Volume fraction]on 32-44-2766Cvozqgrzev (Bld) [Volume fraction]Hematocrit [Volume Fraction] of Blood by Automated nagrnGol40.0-48.0[facility] HospitalHematocrit (Bld) [Volume fraction]32.0 %Low36.0-48.0[facility] HospitalHemoglobin [Mass/volume] in Bloodon 14-58-5860Wxissnolke (Bld) [Mass/Vol]Hemoglobin [Mass/volume] in WfuybEdl77.0-16.0[facility] HospitalHemoglobin (Bld) [Mass/Vol]10.3 g/dLLow12.0-16.0[facility] HospitalLaboratory - Chemistry and Chemistry - challengeon 07-25-2024 Potassium [Moles/Vol]5.8 mmol/LHigh3.5-5.1FSt. Francis Hospital Albumin [Mass/Vol]3.5 g/dL3.4-5.0[facility] HospitalALP [Catalytic activity/Vol]81 U/J06-685UjtrbggytAvita Health System [facility] HospitalALT [Catalytic activity/Vol]15 U/P74-73LgqfbsvesAvita Health System [facility] HospitalAST [Catalytic activity/Vol]18 U/K68-23ZhuafogoiAvita Health System Galion HospitalBilirubin [Mass/Vol]0.3 mg/dL0.2-1.0[facility] HospitalCalcium [Mass/Vol]9.3 mg/dL 8.5-10.1FSt. Francis HospitalChloride [Moles/Vol]100 mmol/L98-107 [facility] HospitalCO2 [Moles/Vol]28.3 mmol/L21.0-32.0[facility] HospitalCreatinine [Mass/Vol]3.88 mg/dLHigh0.55-1.02[facility] HospitalGFR/1.73 sq M.predicted MDRD (S/P/Bld) [Vol rate/Area]14 mL/min/{1.73_m2}Low>=60 mL/min/1.73m 2FSt. Francis HospitalGlucose [Mass/Vol]112 mg/dBQhkr72-140AfvutbdqrAvita Health System [facility] HospitalProtein [Mass/Vol] 6.8 g/dL6.4-8.2[facility] CenterSodium [Moles/Vol]136 mmol/L 136-145[facility] HospitalUrea nitrogen [Mass/Vol]83.0 mg/dL Critically high7.0-18.0[facility] HospitalComment on above:RESULTS CALLED TO Melissa Gupta RNUrea nitrogen/Creatinine [Mass ratio]21.4 mg/mg [facility] HospitalTS Qn1.217 m[IU]/L0.358-3.740[facility] HospitalLaboratory - Hematology and Cell countson 07-25-2024 Immature granulocytes/100 WBC (Bld)0.4 %0.0-0.5FSt. Francis Hospital Leukocytes [#/volume] corrected for nucleated erythrocytes in Blood by Automated counon 74-03-6063SQU corrected for nucl RBC Auto (Bld) [#/Vol]Leukocytes [#/volume] corrected for nucleated erythrocytes in Blood by Automated coun 4.0-11.0[facility] HospitalWBC corrected for nucl RBC Auto (Bld) [#/Vol]10.9 10 3/uL4.0-11.0[facility] HospitalLymphocytes Auto (Bld) [#/Vol]on 75-20-3411Oyxbqbapahm (Bld) [#/Vol]Lymphocytes [#/volume] in Blood by Automated count1.2-3.8[facility] HospitalLymphocytes (Bld) [#/Vol]2.5 10 3/uL1.2-3.8[facility] HospitalLymphocytes/100 WBC Auto (Bld)on 65-13-2079Vlrgwkngjvp/100 WBC (Bld)Lymphocytes/100 leukocytes in Blood by Automated count20.5-60.0[facility] Lymphocytes/100 WBC (Bld)22.4 %20.5-60.0[facility] HospitalMCH Auto (RBC) [Entitic mass]on 53-26-6447YAQ (RBC) [Entitic mass]MCH [Entitic mass] by Automated count26.7-34.0[facility] (RBC) [Entitic mass]31.2 pg26.7-34.0[facility] HospitalMCHC Auto (RBC) [Mass/Vol] on 87-04-9371ZWLV (RBC) [Mass/Vol]MCHC [Mass/volume] by Automated count29.9-35.2 [facility] HospitalHC (RBC) [Mass/Vol]32.2 g/dL29.9-35.2 [facility] HospitalMCV Auto (RBC) [Entitic vol]on 12-57-1406PNP (RBC) [Entitic vol]MCV [Entitic volume] by Automated count81.0-99.0[facility] HospitalV (RBC) [Entitic vol]97.0 fL81.0-99.0[facility] HospitalMonocytes Auto (Bld) [#/Vol]on 11-94-4685Wmzqszadz (Bld) [#/Vol] Automated blood monocyte count0.3-0.8[facility] HospitalMonocytes (Bld) [#/Vol]0.7 10 3/uL0.3-0.8[facility] HospitalMonocytes/100 WBC Auto (Bld)on 40-72-8151Htcvauqiy/100 WBC (Bld)Automated monocyte %1.7-12.0 [facility] HospitalMonocytes/100 WBC (Bld)6.3 %1.7-12.0[facility] HospitalNeutrophils Auto (Bld) [#/Vol]on 15-60-8124Uixhzxlcxre (Bld) [#/Vol]Neutrophils [#/volume] in Blood by Automated countHigh1.4-6.5 [facility] HospitalNeutrophils (Bld) [#/Vol]7.3 10 3/uLHigh1.4-6.5 [facility] HospitalNeutrophils/100 WBC Auto (Bld)on 07-25-2024 Neutrophils/100 WBC (Bld)Automated neutrophil %43.0-75.0[facility] HospitalNeutrophils/100 WBC (Bld)67.1 %43.0-75.0[facility] HospitalNo Panel Informationon 34-80-7860Gyntbaql I High Sensitivity9.5 pg/mL 4.0-51.3FSt. Francis HospitalComment on above:CUT-OFF POINTS HAVE BEEN ESTABLISHED BASED ON THE FOURTHUNIVERSAL DEFINITION OF MYOCARDIAL INFARCTIO N. THE UPPERREFERENCE LIMIT (URL) OF TROPONIN, DEFINED THE 99THPERCENTILE OF cTnI DISTRIBUTION IN A REFERENCE POPULATION,HAS BEEN CONFIRMED THE DECISION THRESHOLD FOR MIDIAGNOSIS.99TH PERCENTILE = 51.4 PG/MLNOTE: HIGH-SENSITIVITY TROPONIN ASSAY IS NOT INTENDED TO BEUSED IN ISOLATION BUT SHOULD BE INTERPRETED IN CONJUNCTIONWITH OTHER DIAGNOSTIC AND CLINICAL INFORMATION.Eosinophils # (Auto)0.4 10 3/uL0.0-0.7FSt. Francis HospitalImmature Granulocyte # (Auto)0.04 10 3/uLHigh0.00-0.03[facility] HospitalPlatelet mean volume Auto (Bld) [Entitic vol]on 80-55-1290Imxifryc mean volume (Bld) [Entitic vol]Platelet mean volume [Entitic volume] in Blood by Automated count9.5-13.5 [facility] HospitalPlatelet mean volume (Bld) [Entitic vol]10.5 fL 9.5-13.5FSt. Francis HospitalPlatelets Auto (Bld) [#/Vol]on 57-16-7455Pflusuidz (Bld) [#/Vol]Platelets [#/volume] in Blood by Automated bgopl759-633KdcozxbgfAvita Health System Galion HospitalPlatelets (Bld) [#/Vol]233 10 3/uL 150-450Av[facility] HospitalRBC Auto (Bld) [#/Vol]on 21-31-9715GDR (Bld) [#/Vol]Erythrocytes [#/volume] in Blood by Automated countLow4.20-5.40 [facility] HospitalRBC (Bld) [#/Vol]3.30 10 6/uLLow4.20-5.40 [facility] Hospitalerum or plasma albumin/globulin mass ratioon 31-64-6771Hcxxmed/Globulin [Mass ratio]Serum or plasma albumin/globulin mass ratioAvita Health System Galion HospitalAlbumin/Globulin [Mass ratio]1.1 {ratio} [facility] Hospitalerum or plasma anion gap determinationon 52-02-4273Ifcsl gap [Moles/Vol]Serum or plasma anion gap determinationAvita Health System Galion HospitalAnion gap [Moles/Vol]13.9 mmol/LFSt. Francis HospitalX-ray reportOrdered By: Wale Wilburn on 95-62-6709Ukokg report [facility] [address] [place] [address] XRay Report Signed Patient: Catherine Tang MR# : [id number] : 1945 Acct:[id number] Age/Sex: 79 / F ADM Date: 5 Loc: SOXD Room: Type: REG CLI Attending Dr: Paty Booth MD Copies to: [...] Wale Wilburn M.D.06/27/2024 7:49 PM Dictation Location: [place] [address] Transcribed By: [facility] 06/27/241948 Dictated By: Wale Wilburn DO 06/27/241947 Signed By: 06/27/241948 [facility] HospitalXR wrist LT min 3V*on 55-47-7991EX wrist LT min 3V*[facility] [address] [place] [address] XRay Report Signed Patient: Catherine Tang MR#: [id number] : 1945 Acct:[id number] Age/Sex: 79 / F ADM Date: 06/27/24 Loc: [facility] Room: Type: REG CLI Attending Dr: Paty Booth MD Copies to: [...] Wale Wilburn M.D.06/27/2024 7:49 PM Dictation Location: [facility] Transcribed By: JACLYN 06/27/241948 Dictated By: Wale Wilburn DO 06/27/241947 Signed By: 06/27/241948[facility] Physician GroupBasophils Auto (Bld) [#/Vol]on 32-90-4645Wiecptkzv (Bld) [#/Vol]Automated basophil count0.0-0.1FSt. Francis HospitalBasophils/100 WBC Auto (Bld)on 61-62-3581Qgixnejcp/100 WBC (Bld)Automated basophil %0.2-2.0[facility] Eosinophils/100 WBC Auto (Bld)on 91-14-1436Tobsserblvw/100 WBC (Bld)Automated eosinophil %0.9-7.0[facility] HospitalErythrocyte distribution width Auto (RBC) [Ratio]on 88-40-3582Hgxzvvzcqvy distribution width (RBC) [Ratio]Erythrocyte distribution width [Ratio] by Automated count11.0-15.0 [facility] HospitalEstimated glomerular filtration rate (GFR) non- Americanon 73-31-8593QYX/1.73 sq M.predicted among non-blacks MDRD (S/P/Bld) [Vol rate/Area]Estimated glomerular filtration rate (GFR) non- AmericanLow>=60 mL/min/1.73m 2FSt. Francis HospitalGlobulin Calc (S) [Mass/Vol]on 10-47-8077Zsmkzfzb (S) [Mass/Vol]Serum globulin measurement by calculation (mass/volume)[facility] HospitalHematocrit Auto (Bld) [Volume fraction]on 61-54-5313Kyekkuiegh (Bld) [Volume fraction]Hematocrit [Volume Fraction] of Blood by Automated vlizsZhk60.0-48.0[facility] HospitalHemoglobin [Mass/volume] in Bloodon 61-80-4925Nlqprlxqcc (Bld) [Mass/Vol]Hemoglobin [Mass/volume] in BogyqQtf73.0-16.0[facility] HospitalIron binding capacity [Mass/volume] in Serum or Plasmaon 33-55-1491Tckh binding capacity [Mass/Vol]Iron binding capacity [Mass/volume] in Serum or Obamuo280.0-450.0[facility] HospitalIron saturation [Mass Fraction] in Serum or Plasmaon 25-40-8989Abzx saturation [Mass fraction] Iron saturation [Mass Fraction] in Serum or PlasmaAvita Health System Galion HospitalLaboratory - Chemistry and Chemistry - challengeon 13-95-4652Aydoopi [Mass/Vol]3.4 g/dL3.4-5.0[facility] HospitalALP [Catalytic activity/Vol]72 U/Y47-388FfdvkdmavAvita Health System Galion HospitalALT [Catalytic activity/Vol]28 U/E02-49NvzupqgxzAvita Health System Galion HospitalAST [Catalytic activity/Vol]24 U/S44-29GcjdthpqmAvita Health System Galion HospitalBilirubin [Mass/Vol]0.4 mg/dL0.2-1.0[facility] HospitalCalcium [Mass/Vol]8.8 mg/dL 8.5-10.1FSt. Francis HospitalChloride [Moles/Vol]107 mmol/L98-107 [facility] HospitalCO2 [Moles/Vol]30.8 mmol/L21.0-32.0[facility] HospitalCobalamin (Vitamin B12) [Mass/Vol]1568 pg/mLAbnormal 232-1245[facility] HospitalComment on above:Performed at: [facility] [id number] Director: Larry Nicolas PhD, Phone: [phone] [Mass/Vol]1.35 mg/dLHigh0.55-1.02 [facility] HospitalFerritin [Mass/Vol]79.0 ng/mL8.0-252.0[facility] HospitalGFR/1.73 sq M.predicted MDRD (S/P/Bld) [Vol rate/Area]46 mL/min/{1.73_m2}Low>=60 mL/min/1.73m 2FSt. Francis HospitalGlucose [Mass/Vol]109 mg/vAZwnr95-519ExaslnezaAvita Health System Galion HospitalIron [Mass/Vol] 86.0 ug/dL50.0-170.0[facility] HospitalPotassium [Moles/Vol]4.6 mmol/L3.5-5.1FSt. Francis HospitalProtein [Mass/Vol]6.6 g/dL6.4-8.2 [facility] Hospitalodium [Moles/Vol]145 mmol/R438-116NpqnzcyqgAvita Health System Galion HospitalTSH Qn1.743 m[IU]/L0.358-3.740[facility] HospitalUrea nitrogen [Mass/Vol]21.0 mg/dLHigh7.0-18.0[facility] HospitalUrea nitrogen/Creatinine [Mass ratio]15.6 mg/mgAvita Health System Galion HospitalLaboratory - Hematology and Cell countson 77-92-3126Ohxvvtnj granulocytes/100 WBC (Bld)0.3 %0.0-0.5FSt. Francis Hospital Leukocytes [#/volume] corrected for nucleated erythrocytes in Blood by Automated counon 22-12-3339PGG corrected for nucl RBC Auto (Bld) [#/Vol]Leukocytes [#/volume] corrected for nucleated erythrocytes in Blood by Automated coun 4.0-11.0[facility] HospitalLymphocytes Auto (Bld) [#/Vol]on 99-40-6047Rdazqwvucuu (Bld) [#/Vol]Lymphocytes [#/volume] in Blood by Automated count1.2-3.8[facility] HospitalLymphocytes/100 WBC Auto (Bld)on 89-22-3210Kismpkqkrhb/100 WBC (Bld)Lymphocytes/100 leukocytes in Blood by Automated count20.5-60.0[facility] HospitalH Auto (RBC) [Entitic mass]on 23-22-2119JOM (RBC) [Entitic mass]MCH [Entitic mass] by Automated count 26.7-34.0[facility] HospitalMCHC Auto (RBC) [Mass/Vol]on 25-07-1504AQJI (RBC) [Mass/Vol]MCHC [Mass/volume] by Automated count29.9-35.2 [facility] HospitalMCV Auto (RBC) [Entitic vol]on 58-81-6887ZLD (RBC) [Entitic vol]MCV [Entitic volume] by Automated count81.0-99.0[facility] HospitalMonocytes Auto (Bld) [#/Vol]on 78-94-2133Riegvsjio (Bld) [#/Vol]Automated blood monocyte count0.3-0.8[facility] Monocytes/100 WBC Auto (Bld)on 55-59-9104Bbwslxeiq/100 WBC (Bld)Automated monocyte %1.7-12.0[facility] HospitalNeutrophils Auto (Bld) [#/Vol]on 36-23-2272Hreoanuvuiq (Bld) [#/Vol]Neutrophils [#/volume] in Blood by Automated count1.4-6.5FSt. Francis HospitalNeutrophils/100 WBC Auto (Bld)on 65-18-5254Egmmgalgafi/100 WBC (Bld)Automated neutrophil %43.0-75.0 [facility] HospitalNo Panel Informationon 66-56-881450622073-Cxfxwvr Vitamin D Total57.6 ng/mLAvita Health System Galion HospitalComment on above:<20 ng/mL Vit D blahsogbv21-<30 ng/mL Vit D epwxpntaxxfd69-132 ng/mL Vit D sufficient>100 ng/mL Potential ToxicityEosinophils # (Auto)0.3 10 3/uL0.0-0.7 [facility] HospitalImmature Granulocyte # (Auto)0.02 10 3/uL 0.00-0.03[facility] HospitalPlatelet mean volume Auto (Bld) [Entitic vol]on 24-00-7096Girmrwhf mean volume (Bld) [Entitic vol]Platelet mean volume [Entitic volume] in Blood by Automated count9.5-13.5FSt. Francis HospitalPlatelets Auto (Bld) [#/Vol]on 28-61-3429Brtelzyls (Bld) [#/Vol] Platelets [#/volume] in Blood by Automated bgmvo936-249VfnzdtjxzAvita Health System Galion HospitalRBC Auto (Bld) [#/Vol]on 42-40-9330XCO (Bld) [#/Vol]Erythrocytes [#/volume] in Blood by Automated countLow4.20-5.40[facility] Hospitalerum or plasma albumin/globulin mass ratioon 99-64-3776Rcsdwrp/Globulin [Mass ratio]Serum or plasma albumin/globulin mass ratioOhioHealth Grady Memorial Hospitalerum or plasma anion gap determinationon 06-71-0364Yyein gap [Moles/Vol]Serum or plasma anion gap determinationAvita Health System Galion HospitalAlbumin [Mass/volume] in Serum or Plasmaon 79-71-6511Bjcczyo [Mass/Vol]3.7 g/dL2.9-4.4FSt. Francis HospitalBasophils Auto (Bld) [#/Vol]on 56-65-2293Kxwpaabwc (Bld) [#/Vol]0.1 10 3/uL0.0-0.1FSt. Francis HospitalBasophils/100 WBC Auto (Bld)on 97-27-5701Hfktyukwc/100 WBC (Bld)0.7 % 0.2-2.0[facility] HospitalEosinophils/100 WBC Auto (Bld)on 89-60-9033Hswgxpwzynw/100 WBC (Bld)2.3 %0.9-7.0[facility] Erythrocyte distribution width Auto (RBC) [Ratio]on 79-35-5127Npbnobihidb distribution width (RBC) [Ratio]13.1 %11.0-15.0[facility] Estimated glomerular filtration rate (GFR) non- Americanon 06-15-2023 GFR/1.73 sq M.predicted among non-blacks MDRD (S/P/Bld) [Vol rate/Area]40 mL/min/{1.73_m2}>=60[facility] HospitalGlobulin Calc (S) [Mass/Vol]on 01-55-2576Rzxorwor (S) [Mass/Vol]3.7 g/dLAvita Health System Galion HospitalHematocrit Auto (Bld) [Volume fraction]on 78-42-5797Jiesvxwbfd (Bld) [Volume fraction]39.7 %36.0-48.0[facility] HospitalHemoglobin [Mass/volume] in Bloodon 51-04-0770Rwsqpgnyiw (Bld) [Mass/Vol]12.1 g/dL12.0-16.0 [facility] HospitalIgA [Mass/volume] in Serum or Plasmaon 23-94-1508DeU [Mass/Vol]195 mg/qT70-137DugtadghaAvita Health System Galion HospitalIgG [Mass/volume] in Serum or Plasmaon 61-21-6367QpS [Mass/Vol]865 mg/vT167-3201 [facility] HospitalIgM [Mass/volume] in Serum or Plasmaon 55-15-0556GhV [Mass/Vol]54 mg/rJ57-365NvvciblriAvita Health System Galion HospitalIron binding capacity [Mass/volume] in Serum or Plasmaon 93-98-3569Qfro binding capacity [Mass/Vol]330.0 ug/dL250.0-450.0[facility] HospitalIron saturation [Mass Fraction] in Serum or Plasmaon 48-62-5558Cxde saturation [Mass fraction]29.7 %[facility] HospitalLaboratory - Chemistry and Chemistry - challengeon 76-92-5030BCT [Catalytic activity/Vol]85 U/L46-116 [facility] HospitalALT [Catalytic activity/Vol]17 U/L14-59 [facility] HospitalAST [Catalytic activity/Vol]20 U/L15-37 [facility] HospitalBilirubin [Mass/Vol]0.4 mg/dL0.2-1.0[facility] HospitalCalcium [Mass/Vol]10.0 mg/dL8.5-10.1FSt. Francis HospitalChloride [Moles/Vol]101 mmol/K71-183HtbkfktnsAvita Health System Gal[facility] HospitalCO2 [Moles/Vol]29.7 mmol/L21.0-32.0[facility] Creatinine [Mass/Vol]1.29 mg/dL0.55-1.02[facility] Ferritin [Mass/Vol]168.0 ng/mL8.0-252.0[facility] HospitalGFR/1.73 sq M.predicted MDRD (S/P/Bld) [Vol rate/Area]48 mL/min/{1.73_m2}>=60[facility] HospitalGlucose [Mass/Vol]174 mg/tR39-162SftsfpqlqAvita Health System Galion HospitalIron [Mass/Vol]98.0 ug/dL50.0-170.0[facility] HospitalLDH [Catalytic activity/Vol]202 U/M74-071YdxonecwzAvita Health System [facility] Hospital Potassium [Moles/Vol]4.8 mmol/L3.5-5.1FSt. Francis HospitalProtein [Mass/Vol]7.4 g/dL6.4-8.2FDayton Children's Hospitalodium [Moles/Vol]139 mmol/A988-445KitnudtlbAvita Health System Galion HospitalUrea nitrogen [Mass/Vol]27.0 mg/dL 7.0-18.0[facility] HospitalUrea nitrogen/Creatinine [Mass ratio] 20.9 mg/mgAvita Health System Galion HospitalLaboratory - Hematology and Cell countson 51-07-3326CFH (Bld) [Velocity]52 mm/h<=30[facility] HospitalImmature granulocytes/100 WBC (Bld)0.4 %0.0-0.5FSt. Francis HospitalLeukocytes [#/volume] corrected for nucleated erythrocytes in Blood by Automated counon 71-62-1485EYJ corrected for nucl RBC Auto (Bld) [#/Vol]6.9 10 3/uL4.0-11.0[facility] HospitalLymphocytes Auto (Bld) [#/Vol]on 46-29-4671Wlwzwisbzcq (Bld) [#/Vol]1.7 10 3/uL1.2-3.8[facility] HospitalLymphocytes/100 WBC Auto (Bld)on 00-09-1406Xbjangyovpg/100 WBC (Bld)24.7 % 20.5-60.0[facility] HospitalH Auto (RBC) [Entitic mass]on 31-03-9437DTN (RBC) [Entitic mass]29.6 pg26.7-34.0[facility] HospitalHC Auto (RBC) [Mass/Vol]on 84-85-7728WXRZ (RBC) [Mass/Vol]30.5 g/dL 29.9-35.2FUniversity Hospitals Geauga Medical CenterV Auto (RBC) [Entitic vol]on 94-81-6968PCI (RBC) [Entitic vol]97.1 fL81.0-99.0[facility] HospitalMonocytes Auto (Bld) [#/Vol]on 57-09-5396Mrqwfmfmh (Bld) [#/Vol]0.4 10 3/uL0.3-0.8[facility] HospitalMonocytes/100 WBC Auto (Bld)on 21-30-6181Azrnmatdl/100 WBC (Bld)6.0 %1.7-12.0[facility] Neutrophils Auto (Bld) [#/Vol]on 14-26-0888Ctzwhrqgbak (Bld) [#/Vol]4.5 10 3/uL 1.4-6.5FSt. Francis HospitalNeutrophils/100 WBC Auto (Bld)on 18-91-2539Pjpganfefjl/100 WBC (Bld)65.9 %43.0-75.0[facility] HospitalNo Panel Informationon 70-86-1486S-Reactive Protein, Quantitative<0.50 mg/dL<=0.50[facility] HospitalEosinophils # (Auto)0.2 10 3/uL 0.0-0.7FSt. Francis HospitalImmature Granulocyte # (Auto)0.03 10 3/uL0.00-0.03[facility] HospitalProtein Electrophoresis M-SpikeNot Observed g/dLNot ObservedAvita Health System Galion HospitalProtein Electrophoresis NoteComment.[facility] HospitalComment on above: Protein electrophoresis scan will follow via computer,mail, or psychiatrist delivery.Performed at: [address], [place] [id number] Director: Larry Nicolas PhD, Phone: [phone] mean volume Auto (Bld) [Entitic vol]on 23-05-1789Ipbopslu mean volume (Bld) [Entitic vol]10.8 fL9.5-13.5FSt. Francis HospitalPlatelets Auto (Bld) [#/Vol] on 54-23-0129Lgxxpmazc (Bld) [#/Vol]259 10 3/vZ168-315WpgnmyqkhAvita Health System Galion HospitalProtein [Mass/volume] in Serum or Plasmaon 13-81-4463Wkfvmam [Mass/Vol] 6.9 g/dL6.0-8.5FSt. Francis HospitalRBC Auto (Bld) [#/Vol]on 00-83-2490TRF (Bld) [#/Vol]4.09 10 6/uL4.20-5.40[facility] HospitalReticulocytes/100 RBC Auto (Bld)on 10-25-2736Hkrmlsxsswzto/100 RBC (Bld) 1.56 %0.60-3.10[facility] Hospitalerum globulin measurement (mass/volume)on 51-66-7244Xocnmqwo (S) [Mass/Vol]3.2 g/dL2.2-3.9[facility] Hospitalerum or plasma albumin/globulin mass ratioon 06-15-2023 Albumin/Globulin [Mass ratio]1.0 {ratio}[facility] Albumin/Globulin [Mass ratio]1.2 {ratio}0.7-1.7FSt. Francis Hospital Serum or plasma alpha 1 globulin measurement by electrophoresis (mass/volume)on 24-94-4921Vynks 1 globulin Elph [Mass/Vol]0.3 g/dL0.0-0.4FDayton Children's Hospitalerum or plasma alpha 2 globulin measurement by electrophoresis (mass/volume)on 01-71-9678Dkysx 2 globulin Elph [Mass/Vol]1.0 g/dL0.4-1.0 [facility] Hospitalerum or plasma anion gap determinationon 05-65-7098Zspee gap [Moles/Vol]13.1 mmol/LFDayton Children's Hospitalerum or plasma beta globulin measurement by electrophoresis (mass/volume)on 21-09-3716Oagq globulin Elph [Mass/Vol]1.2 g/dL0.7-1.3FDayton Children's Hospitalerum or plasma gamma globulin measurement by electrophoresis (mass/volume)on 51-84-9123Xrksn globulin Elph [Mass/Vol]0.7 g/dL0.4-1.8[facility] Hospitalerum or plasma immunoelectrophoresis interpretationon 63-31-0387Vswvoxmnglstpz IEP [Interp]Comment.[facility] Comment on above:No monoclonality detected.Basophils Auto (Bld) [#/Vol]on 86-46-5350Fzruynzes (Bld) [#/Vol]0.2 10 3/uL0.0-0.1FSt. Francis HospitalBasophils/100 WBC Auto (Bld)on 23-61-3553Zqplccbkf/100 WBC (Bld)0.7 % 0.2-2.0[facility] HospitalEosinophils/100 WBC Auto (Bld)on 53-50-4983Qzzomolirhh/100 WBC (Bld)0.5 %0.9-7.0[facility] Erythrocyte distribution width Auto (RBC) [Ratio]on 69-93-9383Xopuhgeqhut distribution width (RBC) [Ratio]12.7 %11.0-15.0[facility] Estimated glomerular filtration rate (GFR) non- Americanon 05-29-2023 GFR/1.73 sq M.predicted among non-blacks MDRD (S/P/Bld) [Vol rate/Area]58 mL/min/{1.73_m2}>=60[facility] HospitalGlobulin Calc (S) [Mass/Vol]on 67-30-7465Bsliyiyy (S) [Mass/Vol]4.3 g/dLAvita Health System Galion HospitalHematocrit Auto (Bld) [Volume fraction]on 16-63-7320Idkxkokksl (Bld) [Volume fraction]31.1 %36.0-48.0[facility] HospitalHemoglobin [Mass/volume] in Bloodon 19-91-4713Ufhsnoicsu (Bld) [Mass/Vol]9.9 g/dL12.0-16.0 [facility] HospitalLaboratory - Chemistry and Chemistry - challengeon 35-83-6637Zamhlfa [Mass/Vol]2.3 g/dL3.4-5.0[facility] HospitalALP [Catalytic activity/Vol]94 U/Y28-357PuzefrhiqAvita Health System Galion HospitalALT [Catalytic activity/Vol]46 U/C28-10WrvupvwnpAvita Health System [facility]ion Hospital AST [Catalytic activity/Vol]37 U/Q98-04DmyeweekpAvita Health System [facility]ion Hospital Bilirubin [Mass/Vol]0.3 mg/dL0.2-1.0[facility] HospitalCalcium [Mass/Vol]9.3 mg/dL8.5-10.1FSt. Francis HospitalChloride [Moles/Vol] 108 mmol/N22-855CfysqnpyrAvita Health System Galion HospitalCO2 [Moles/Vol]26.5 mmol/L 21.0-32.0[facility] HospitalCreatinine [Mass/Vol]0.93 mg/dL 0.55-1.02[facility] HospitalGFR/1.73 sq M.predicted MDRD (S/P/Bld) [Vol rate/Area]mL/min/{1.73_m2}>=60[facility] HospitalGlucose [Mass/Vol]109 mg/iJ35-541GccapfwqsAvita Health System Galion HospitalPotassium [Moles/Vol] 4.1 mmol/L3.5-5.1FSt. Francis HospitalProtein [Mass/Vol]6.6 g/dL 6.4-8.2FDayton Children's Hospitalodium [Moles/Vol]144 mmol/E993-219 [facility] HospitalUrea nitrogen [Mass/Vol]13.0 mg/dL7.0-18.0 [facility] HospitalUrea nitrogen/Creatinine [Mass ratio]14.0 mg/mg [facility] HospitalLaboratory - Hematology and Cell countson 23-81-3998Wlbjnivd granulocytes/100 WBC (Bld)11.2 %0.0-0.5FSt. Francis HospitalLeukocytes [#/volume] corrected for nucleated erythrocytes in Blood by Automated counon 09-92-9321NXV corrected for nucl RBC Auto (Bld) [#/Vol]20.0 10 3/uL4.0-11.0[facility] HospitalLymphocytes Auto (Bld) [#/Vol]on 76-04-5104Kjlexzsqydp (Bld) [#/Vol]2.7 10 3/uL1.2-3.8[facility] HospitalLymphocytes/100 WBC Auto (Bld)on 05-29-2023 Lymphocytes/100 WBC (Bld)13.2 %20.5-60.0[facility] HospitalH Auto (RBC) [Entitic mass]on 74-26-2717OVR (RBC) [Entitic mass]29.8 pg26.7-34.0 [facility] HospitalMCHC Auto (RBC) [Mass/Vol]on 08-44-1419VZRJ (RBC) [Mass/Vol]31.8 g/dL29.9-35.2FSt. Francis HospitalMCV Auto (RBC) [Entitic vol]on 85-24-2073HVH (RBC) [Entitic vol]93.7 fL81.0-99.0[facility] HospitalMonocytes Auto (Bld) [#/Vol]on 26-06-5852Wlkizvxkg (Bld) [#/Vol]1.1 10 3/uL0.3-0.8[facility] HospitalMonocytes/100 WBC Auto (Bld)on 55-37-1661Lnlwrktyj/100 WBC (Bld)5.3 %1.7-12.0[facility] HospitalNeutrophils Auto (Bld) [#/Vol]on 17-05-8804Wpxrzquktgg (Bld) [#/Vol]13.8 10 3/uL1.4-6.5FSt. Francis HospitalNeutrophils/100 WBC Auto (Bld)on 50-39-9773Nawqbjrbamt/100 WBC (Bld)69.1 %43.0-75.0[facility] HospitalNo Panel Informationon 69-34-3635Tfibscvsdkz # (Auto)0.1 10 3/uL0.0-0.7FSt. Francis HospitalImmature Granulocyte # (Auto)2.24 10 3/uL0.00-0.03[facility] HospitalPlatelet mean volume Auto (Bld) [Entitic vol]on 07-02-1650Kcngtfhr mean volume (Bld) [Entitic vol]9.8 fL 9.5-13.5FSt. Francis HospitalPlatelets Auto (Bld) [#/Vol]on 35-92-0560Viyyysbpw (Bld) [#/Vol]281 10 3/aL701-157UssptomcdAvita Health System Galion HospitalRBC Auto (Bld) [#/Vol]on 93-17-8878AKE (Bld) [#/Vol]3.32 10 6/uL4.20-5.40 [facility] Hospitalerum or plasma albumin/globulin mass ratioon 49-15-5920Oibbrwg/Globulin [Mass ratio]0.5 {ratio}[facility] Hospitalerum or plasma anion gap determinationon 78-81-0757Pqrli gap [Moles/Vol] 13.6 mmol/LFDayton Children's Hospitalerum procalcitonin measurementon 01-74-5723Kcifjvldhzkcu [Mass/Vol]ng/mL0.00-0.50[facility] HospitalBasophils Auto (Bld) [#/Vol]on 69-47-3110Lypsapphk (Bld) [#/Vol]0.1 10 3/uL0.0-0.1FSt. Francis HospitalBasophils/100 WBC Auto (Bld)on 39-30-8597Bfzouhhfx/100 WBC (Bld)0.6 %0.2-2.0[facility] Eosinophils/100 WBC Auto (Bld)on 06-71-8331Qvktxxjoshr/100 WBC (Bld)0.4 %0.9-7.0 [facility] HospitalErythrocyte distribution width Auto (RBC) [Ratio]on 80-29-1920Ulrjgmyzwpc distribution width (RBC) [Ratio]12.7 %11.0-15.0 [facility] HospitalEstimated glomerular filtration rate (GFR) non- Americanon 95-86-7459UQM/1.73 sq M.predicted among non-blacks MDRD (S/P/Bld) [Vol rate/Area]47 mL/min/{1.73_m2}>=60[facility] HospitalGlobulin Calc (S) [Mass/Vol]on 78-31-4372Jpeufdlw (S) [Mass/Vol]3.9 g/dL [facility] HospitalHematocrit Auto (Bld) [Volume fraction]on 64-78-2151Dhydayxwkr (Bld) [Volume fraction]29.0 %36.0-48.0[facility] HospitalHemoglobin [Mass/volume] in Bloodon 63-91-9505Smjsuenszy (Bld) [Mass/Vol]9.1 g/dL12.0-16.0[facility] HospitalLaboratory - Chemistry and Chemistry - challengeon 18-21-0796Hyqzndy [Mass/Vol]2.0 g/dL 3.4-5.0[facility] HospitalALP [Catalytic activity/Vol]93 U/L46-116 [facility] HospitalALT [Catalytic activity/Vol]46 U/L14-59 [facility] HospitalAST [Catalytic activity/Vol]49 U/L15-37 [facility] HospitalBilirubin [Mass/Vol]0.3 mg/dL0.2-1.0[facility] HospitalCalcium [Mass/Vol]8.7 mg/dL8.5-10.1FSt. Francis HospitalChloride [Moles/Vol]111 mmol/Y75-560DoanbbqdmAvita Health System Galion HospitalCO2 [Moles/Vol]25.0 mmol/L21.0-32.0[facility] Creatinine [Mass/Vol]1.12 mg/dL0.55-1.02[facility] GFR/1.73 sq M.predicted MDRD (S/P/Bld) [Vol rate/Area]57 mL/min/{1.73_m2}>=60 [facility] HospitalGlucose [Mass/Vol]103 mg/nX33-992IpbzttvrmAvita Health System Galion HospitalPotassium [Moles/Vol]4.1 mmol/L3.5-5.1FSt. Francis HospitalProtein [Mass/Vol]5.9 g/dL6.4-8.2FSt. Francis Hospital Sodium [Moles/Vol]144 mmol/A011-896IeddybczaAvita Health System Galion HospitalUrea nitrogen [Mass/Vol]22.0 mg/dL7.0-18.0[facility] HospitalUrea nitrogen/Creatinine [Mass ratio]19.6 mg/mgAvita Health System [facility] Hospital Laboratory - Hematology and Cell countson 25-28-4144Qhnoslfq granulocytes/100 WBC (Bld)10.3 %0.0-0.5FSt. Francis HospitalLeukocytes [#/volume] corrected for nucleated erythrocytes in Blood by Automated counon 25-66-8941HGS corrected for nucl RBC Auto (Bld) [#/Vol]17.1 10 3/uL4.0-11.0[facility] HospitalLymphocytes Auto (Bld) [#/Vol]on 06-43-2718Vklcozsxxad (Bld) [#/Vol]2.3 10 3/uL1.2-3.8[facility] HospitalLymphocytes/100 WBC Auto (Bld)on 11-17-3989Vqfkbehtfld/100 WBC (Bld)13.5 %20.5-60.0[facility] HospitalMCH Auto (RBC) [Entitic mass]on 33-58-6668YPA (RBC) [Entitic mass]30.1 pg26.7-34.0[facility] HospitalMCHC Auto (RBC) [Mass/Vol]on 62-70-6271TZXZ (RBC) [Mass/Vol]31.4 g/dL29.9-35.2FSt. Francis HospitalMCV Auto (RBC) [Entitic vol]on 18-84-2289QKS (RBC) [Entitic vol] 96.0 fL81.0-99.0[facility] HospitalMonocytes Auto (Bld) [#/Vol]on 16-23-6404Haalybelu (Bld) [#/Vol]1.0 10 3/uL0.3-0.8[facility] HospitalMonocytes/100 WBC Auto (Bld)on 76-95-4636Mrgwafqlc/100 WBC (Bld)6.0 % 1.7-12.0[facility] HospitalNeutrophils Auto (Bld) [#/Vol]on 00-86-1306Vpbsaelmvrk (Bld) [#/Vol]11.9 10 3/uL1.4-6.5FSt. Francis HospitalNeutrophils/100 WBC Auto (Bld)on 41-81-2203Nyctmzvtcwm/100 WBC (Bld)69.2 %43.0-75.0[facility] HospitalNo Panel Informationon 05-28-2023 Eosinophils # (Auto)0.1 10 3/uL0.0-0.7FSt. Francis HospitalImmature Granulocyte # (Auto)1.76 10 3/uL0.00-0.03[facility] Platelet mean volume Auto (Bld) [Entitic vol]on 95-53-5784Pihosjau mean volume (Bld) [Entitic vol]9.6 fL9.5-13.5FSt. Francis HospitalPlatelets Auto (Bld) [#/Vol]on 10-05-1221Uxzgzzxag (Bld) [#/Vol]242 10 3/uJ496-503SkamoafakAvita Health System Galion HospitalRBC Auto (Bld) [#/Vol]on 51-74-9850OEL (Bld) [#/Vol]3.02 10 6/uL4.20-5.40[facility] Hospitalerum or plasma albumin/globulin mass ratioon 84-82-8439Iqccnhf/Globulin [Mass ratio]0.5 {ratio} [facility] Hospitalerum or plasma anion gap determinationon 48-67-7039Ihukh gap [Moles/Vol]12.1 mmol/LFDayton Children's Hospitalerum procalcitonin measurementon 05-94-9129Dtjijlkdjhmio [Mass/Vol]0.06 ng/mL 0.00-0.50[facility] HospitalBasophils/100 WBC Manual cnt (Bld)on 97-00-2571Rzougsixh/100 WBC (Bld)0.0 %0.2-2.0[facility] Eosinophils/100 WBC Manual cnt (Bld)on 97-78-9119Jqyrnascupl/100 WBC (Bld)0.0 % 0.9-7.0[facility] HospitalErythrocyte distribution width Auto (RBC) [Ratio]on 95-06-4942Jzzlshtfmkj distribution width (RBC) [Ratio]12.5 % 11.0-15.0[facility] HospitalEstimated glomerular filtration rate (GFR) non- Americanon 44-32-9682FME/1.73 sq M.predicted among non-blacks MDRD (S/P/Bld) [Vol rate/Area]29 mL/min/{1.73_m2}>=60[facility] HospitalGlobulin Calc (S) [Mass/Vol]on 62-94-6626Igivimnb (S) [Mass/Vol]4.6 g/dL [facility] HospitalHematocrit Auto (Bld) [Volume fraction]on 65-56-4426Zinrjoapup (Bld) [Volume fraction]29.7 %36.0-48.0[facility] HospitalHemoglobin [Mass/volume] in Bloodon 78-85-3367Cyelbeacxv (Bld) [Mass/Vol]9.4 g/dL12.0-16.0[facility] HospitalLaboratory - Chemistry and Chemistry - challengeon 96-97-2579Dybeubn [Moles/Vol]0.9 mmol/L 0.4-2.0[facility] HospitalAlbumin [Mass/Vol]2.3 g/dL3.4-5.0 [facility] HospitalALP [Catalytic activity/Vol]119 U/L46-116 [facility] HospitalALT [Catalytic activity/Vol]43 U/L14-59 [facility] HospitalAST [Catalytic activity/Vol]57 U/L15-37 [facility] HospitalBilirubin [Mass/Vol]0.2 mg/dL0.2-1.0[facility] HospitalCalcium [Mass/Vol]9.1 mg/dL8.5-10.1FSt. Francis HospitalChloride [Moles/Vol]111 mmol/E75-670RunvabjyeAvita Health System Galion HospitalCO2 [Moles/Vol]18.8 mmol/L21.0-32.0[facility] Creatinine [Mass/Vol]1.70 mg/dL0.55-1.02[facility] GFR/1.73 sq M.predicted MDRD (S/P/Bld) [Vol rate/Area]35 mL/min/{1.73_m2}>=60 [facility] HospitalGlucose [Mass/Vol]155 mg/eC77-168SnnkkguekAvita Health System Galion HospitalPotassium [Moles/Vol]4.8 mmol/L3.5-5.1FSt. Francis HospitalProtein [Mass/Vol]6.9 g/dL6.4-8.2FSt. Francis Hospital Sodium [Moles/Vol]143 mmol/H457-841JlvdlasobAvita Health System Galion HospitalUrea nitrogen [Mass/Vol]34.0 mg/dL7.0-18.0[facility] HospitalUrea nitrogen/Creatinine [Mass ratio]20.0 mg/mgAvita Health System [facility] Hospital Laboratory - Hematology and Cell countson 08-30-4683Ccez form neutrophils/100 WBC (Bld)6.0 %0-5FSt. Francis HospitalLymphocytes/100 WBC (Bld)12.0 %20.5-60.0[facility] HospitalMonocytes/100 WBC (Bld)4.0 %1.7-12.0 [facility] HospitalLaboratory - Microbiology and Antimicrobial susceptibilityOrdered By: Oumar Gunter on 57-53-4317Izxgemwx identified Respiratory culture Nom (Sput)[facility] HospitalMicroscopic observation Gram stain Nom (Unsp spec)[facility] Leukocytes [#/volume] corrected for nucleated erythrocytes in Blood by Automated counon 63-58-7877OPZ corrected for nucl RBC Auto (Bld) [#/Vol]26.6 10 3/uL 4.0-11.0[facility] HospitalH Auto (RBC) [Entitic mass]on 87-42-0338LZG (RBC) [Entitic mass]30.0 pg26.7-34.0[facility] HospitalMCHC Auto (RBC) [Mass/Vol]on 21-32-0284IZDV (RBC) [Mass/Vol]31.6 g/dL 29.9-35.2FSt. Francis HospitalMCV Auto (RBC) [Entitic vol]on 32-12-1934JEW (RBC) [Entitic vol]94.9 fL81.0-99.0[facility] HospitalMetamyelocytes/100 WBC Manual cnt (Bld)on 82-40-2398Sodpwwplrhcnof/100 WBC (Bld)2.0 %[facility] HospitalNo Panel Informationon 05-27-2023 Absolute Basophils (Manual)0.00 10 3/uL0.00-0.10[facility] HospitalBand Neutrophils # (Manual)1.6 10 3/uL0.0-0.3FSt. Francis HospitalEosinophils # (Manual)0.00 10 3/uL0.00-0.70[facility] HospitalLymphocytes # (Manual)3.19 10 3/uL1.20-3.80[facility] HospitalMetamyelocytes # (Manual)0.53[facility] HospitalMonocytes # (Manual)1.06 10 3/uL0.30-0.80[facility] Hospitalegmented Neutrophils # (Manual)20.21 10 3/uL1.4-6.5FSt. Francis Hospital Platelet mean volume Auto (Bld) [Entitic vol]on 08-99-3690Dnyjwgjt mean volume (Bld) [Entitic vol]9.8 fL9.5-13.5FSt. Francis HospitalPlatelets Auto (Bld) [#/Vol]on 13-31-1874Olczybrus (Bld) [#/Vol]265 10 3/oU043-189WjpkzszwxAvita Health System [facility] HospitalRBC Auto (Bld) [#/Vol]on 47-09-5607RRQ (Bld) [#/Vol]3.13 10 6/uL4.20-5.40[facility] Hospitalegmented neutrophils/100 WBC Manual cnt (Bld)on 92-29-6136Iwibkioag neutrophils/100 WBC (Bld)76.0 %[facility] Hospitalerum or plasma albumin/globulin mass ratioon 05-27-2023 Albumin/Globulin [Mass ratio]0.5 {ratio}[facility] Hospitalerum or plasma anion gap determinationon 00-55-5131Kgtbs gap [Moles/Vol]18.0 mmol/L [facility] Hospitalerum procalcitonin measurementon 05-27-2023 Procalcitonin [Mass/Vol]0.13 ng/mL0.00-0.50[facility] Basophils Auto (Bld) [#/Vol]on 78-18-4674Utpwiyhav (Bld) [#/Vol]0.1 10 3/uL 0.0-0.1FSt. Francis HospitalBasophils/100 WBC Auto (Bld)on 61-09-0609Cmsbpyrod/100 WBC (Bld)0.3 %0.2-2.0[facility] Eosinophils/100 WBC Auto (Bld)on 33-52-8824Hcmwbruyrur/100 WBC (Bld)0.2 %0.9-7.0 [facility] HospitalErythrocyte distribution width Auto (RBC) [Ratio]on 03-37-7197Nduywrthqcx distribution width (RBC) [Ratio]12.5 %11.0-15.0 [facility] HospitalEstimated glomerular filtration rate (GFR) non- Americanon 77-04-7625HTK/1.73 sq M.predicted among non-blacks MDRD (S/P/Bld) [Vol rate/Area]14 mL/min/{1.73_m2}>=60[facility] HospitalGlobulin Calc (S) [Mass/Vol]on 04-39-2555Oyuqjisl (S) [Mass/Vol]4.4 g/dL [facility] HospitalHematocrit Auto (Bld) [Volume fraction]on 76-32-9890Cvikhccwzq (Bld) [Volume fraction]31.7 %36.0-48.0[facility] HospitalHemoglobin [Mass/volume] in Bloodon 20-48-6203Auckgthkpi (Bld) [Mass/Vol]9.7 g/dL12.0-16.0[facility] HospitalLaboratory - Chemistry and Chemistry - challengeon 76-27-7195Impyngv [Mass/Vol]2.3 g/dL 3.4-5.0[facility] HospitalALP [Catalytic activity/Vol]128 U/L 46-116[facility] HospitalALT [Catalytic activity/Vol]19 U/L14-59 [facility] HospitalAST [Catalytic activity/Vol]18 U/L15-37 [facility] HospitalBilirubin [Mass/Vol]0.4 mg/dL0.2-1.0[facility] HospitalCalcium [Mass/Vol]8.2 mg/dL8.5-10.1FSt. Francis HospitalChloride [Moles/Vol]102 mmol/N52-316TpcovsphcAvita Health System Galion HospitalCO2 [Moles/Vol]23.6 mmol/L21.0-32.0[facility] Creatinine [Mass/Vol]3.17 mg/dL0.55-1.02[facility] GFR/1.73 sq M.predicted MDRD (S/P/Bld) [Vol rate/Area]17 mL/min/{1.73_m2}>=60 [facility] HospitalGlucose [Mass/Vol]279 mg/hP94-716PoybbscksAvita Health System Galion HospitalPotassium [Moles/Vol]4.2 mmol/L3.5-5.1FSt. Francis HospitalProtein [Mass/Vol]6.7 g/dL6.4-8.2FSt. Francis Hospital Sodium [Moles/Vol]136 mmol/T200-098AhzfivdikAvita Health System Galion HospitalUrea nitrogen [Mass/Vol]40.0 mg/dL7.0-18.0[facility] HospitalUrea nitrogen/Creatinine [Mass ratio]12.6 mg/mgAvita Health System [facility] Hospital Laboratory - Hematology and Cell countson 98-87-2295Jtxgxynb granulocytes/100 WBC (Bld)4.9 %0.0-0.5FSt. Francis HospitalLeukocytes [#/volume] corrected for nucleated erythrocytes in Blood by Automated counon 19-34-5032PWO corrected for nucl RBC Auto (Bld) [#/Vol]20.7 10 3/uL4.0-11.0[facility] HospitalLymphocytes Auto (Bld) [#/Vol]on 15-90-2919Mxlgdntpsxg (Bld) [#/Vol]1.5 10 3/uL1.2-3.8[facility] HospitalLymphocytes/100 WBC Auto (Bld)on 04-55-0408Daqybntmfvi/100 WBC (Bld)7.2 %20.5-60.0[facility] HospitalH Auto (RBC) [Entitic mass]on 46-16-4062WJH (RBC) [Entitic mass]29.8 pg26.7-34.0[facility] HospitalHC Auto (RBC) [Mass/Vol] on 28-23-5861GWRP (RBC) [Mass/Vol]30.6 g/dL29.9-35.2FSt. Francis HospitalMCV Auto (RBC) [Entitic vol]on 26-14-0438CJG (RBC) [Entitic vol]97.5 fL 81.0-99.0[facility] HospitalMonocytes Auto (Bld) [#/Vol]on 10-83-2100Bnscbnubr (Bld) [#/Vol]0.5 10 3/uL0.3-0.8[facility] HospitalMonocytes/100 WBC Auto (Bld)on 32-75-1581Sgyyiupnu/100 WBC (Bld)2.2 % 1.7-12.0[facility] HospitalNeutrophils Auto (Bld) [#/Vol]on 57-54-0736Ouzgttkihdr (Bld) [#/Vol]17.6 10 3/uL1.4-6.5FSt. Francis HospitalNeutrophils/100 WBC Auto (Bld)on 93-52-5717Abrhhscpmho/100 WBC (Bld)85.2 %43.0-75.0[facility] HospitalNo Panel Informationon 05-26-2023 Eosinophils # (Auto)0.0 10 3/uL0.0-0.7FSt. Francis HospitalImmature Granulocyte # (Auto)1.01 10 3/uL0.00-0.03[facility] Platelet mean volume Auto (Bld) [Entitic vol]on 64-77-6465Wiumaflu mean volume (Bld) [Entitic vol]10.6 fL9.5-13.5FSt. Francis HospitalPlatelets Auto (Bld) [#/Vol]on 34-49-2378Ufasudqoe (Bld) [#/Vol]227 10 3/sH613-188 [facility] HospitalRBC Auto (Bld) [#/Vol]on 76-20-9096WIK (Bld) [#/Vol]3.25 10 6/uL4.20-5.40[facility] Hospitalerum or plasma albumin/globulin mass ratioon 27-46-5793Lumfqdz/Globulin [Mass ratio]0.5 {ratio} [facility] Hospitalerum or plasma anion gap determinationon 60-00-3557Pzmqs gap [Moles/Vol]14.6 mmol/LFDayton Children's Hospitalerum procalcitonin measurementon 61-68-9134Pevprucmvhnsr [Mass/Vol]0.61 ng/mL 0.00-0.50[facility] HospitalAutomated urine specific gravity by refractometryon 59-55-0477Najajvlt gravity Refractometry automated (U) [Rel density]>=1.0301.005-1.025[facility] HospitalBasophils/100 WBC Manual cnt (Bld)on 86-69-4643Piazyvbck/100 WBC (Bld)0.0 %0.2-2.0[facility] HospitalBilirubin Auto test strip (U) [Mass/Vol]on 05-25-2023 Bilirubin (U) [Mass/Vol]SMALLNEGATIVEAvita Health System Galion HospitalBlood toxic granulation detection by light microscopyon 18-61-3400Iyzsz granules LM Ql (Bld)4+[facility] HospitalColor Auto (U)on 90-21-4622Upolv (U)DK. YELLOWYELLOWAvita Health System Galion HospitalEosinophils/100 WBC Manual cnt (Bld)on 36-57-3618Qtzfakwtegw/100 WBC (Bld)0.0 %0.9-7.0[facility] HospitalErythrocyte distribution width Auto (RBC) [Ratio]on 05-25-2023 Erythrocyte distribution width (RBC) [Ratio]12.3 %11.0-15.0[facility] HospitalEstimated glomerular filtration rate (GFR) non- Americanon 12-43-2415TAG/1.73 sq M.predicted among non-blacks MDRD (S/P/Bld) [Vol rate/Area]12 mL/min/{1.73_m2}>=60[facility] HospitalGlobulin Calc (S) [Mass/Vol]on 83-21-8170Ivjitlcz (S) [Mass/Vol]4.9 g/dLAvita Health System Galion HospitalHematocrit Auto (Bld) [Volume fraction]on 78-65-3989Gskaauesvy (Bld) [Volume fraction]35.0 %36.0-48.0[facility] Hemoglobin [Mass/volume] in Bloodon 91-99-2094Fqjguapofg (Bld) [Mass/Vol]11.1 g/dL12.0-16.0[facility] [facility] HospitalKetones Auto test strip (U) [Mass/Vol]on 34-47-5107Kttiyiv (U) [Mass/Vol]TRACE mg/dLNEGATIVEAvita Health System Galion HospitalLaboratory - Chemistry and Chemistry - challengeon 40-99-5269Taejkwy [Mass/Vol]2.8 g/dL3.4-5.0[facility] HospitalALP [Catalytic activity/Vol]131 U/Y13-707ZngmwbzsdAvita Health System Galion HospitalALT [Catalytic activity/Vol]21 U/Z92-54MzwqnznkaAvita Health System Galion HospitalAST [Catalytic activity/Vol]21 U/F77-15TizcizmmwAvita Health System Galion HospitalBilirubin [Mass/Vol]0.6 mg/dL0.2-1.0[facility] HospitalCalcium [Mass/Vol]9.2 mg/dL8.5-10.1FSt. Francis HospitalChloride [Moles/Vol]100 mmol/L 98-107[facility] HospitalCO2 [Moles/Vol]27.4 mmol/L21.0-32.0 [facility] HospitalCreatinine [Mass/Vol]3.70 mg/dL0.55-1.02 [facility] HospitalGFR/1.73 sq M.predicted MDRD (S/P/Bld) [Vol rate/Area]14 mL/min/{1.73_m2}>=60[facility] HospitalGlucose [Mass/Vol]142 mg/eQ62-953StswroeakAvita Health System Galion HospitalLactate [Moles/Vol]1.2 mmol/L0.4-2.0[facility] HospitalPotassium [Moles/Vol]4.1 mmol/L 3.5-5.1FSt. Francis HospitalProtein [Mass/Vol]7.7 g/dL6.4-8.2 [facility] Hospitalodium [Moles/Vol]139 mmol/G543-226FwezfzquxAvita Health System Galion HospitalUrea nitrogen [Mass/Vol]38.0 mg/dL7.0-18.0[facility] HospitalUrea nitrogen/Creatinine [Mass ratio]10.3 mg/mgAvita Health System Galion HospitalLaboratory - Hematology and Cell countson 15-78-1691Obux form neutrophils/100 WBC (Bld)15.0 %0-5FSt. Francis Hospital Lymphocytes/100 WBC (Bld)4.0 %20.5-60.0[facility] Monocytes/100 WBC (Bld)5.0 %1.7-12.0[facility] HospitalLaboratory - Microbiology and Antimicrobial susceptibilityon 15-50-8135ORES-CoV-2 (COVID- 19) RNA ITZEL+probe Ql (Unsp spec)Not detectedNOT [facility] CenterLeukocytes [#/volume] corrected for nucleated erythrocytes in Blood by Automated counon 93-95-8602KZX corrected for nucl RBC Auto (Bld) [#/Vol]24.6 10 3/uL4.0-11.0[facility] HospitalH Auto (RBC) [Entitic mass]on 02-36-2129EVC (RBC) [Entitic mass]30.3 pg26.7-34.0[facility] HospitalMCHC Auto (RBC) [Mass/Vol]on 81-56-9105ENLN (RBC) [Mass/Vol]31.7 g/dL29.9-35.2FSt. Francis HospitalMCV Auto (RBC) [Entitic vol]on 90-53-2996GCO (RBC) [Entitic vol]95.6 fL81.0-99.0[facility] HospitalNo Panel Informationon 80-84-3291Uqumfglane (PCR)Not detectedNOT [facility] CenterBordetella parapertussis DNA (PCR)Not detectedNOT [facility] CenterBordetella pertussis (PCR)(Misc)Not detectedNOT [facility] Chlamydia pneumoniae DNA (PCR)Not detectedNOT DETECTAvita Health SystemCoronavirus Type 229E (PCR)Not detectedNOT DETECTAvita Health SystemCoronavirus Type HKU1 (PCR)Not detectedNOT DETECTAvita Health SystemCoronavirus Type NL63 (PCR)Not detectedNOT DETECTE [facility] HospitalCoronavirus Type OC43 (PCR)Not detectedNOT [facility] CenterEnterovirus/Rhinovirus (PCR)Not detected NOT DETECTAvita Health SystemHuman Metapneumovirus (PCR)Not detectedNOT DETECTAvita Health SystemInfluenza A (PCR)Not detectedNOT DETECTAvita Health SystemInfluenza Type B (RT-PCR)Not detectedNOT [facility] CenterMycoplasma pneumoniae (PCR) Not detectedNOT [facility] CenterParainfluenza Type 1 (PCR)Not detectedNOT [facility] CenterParainfluenza Type 2 (PCR)Not detectedNOT [facility] CenterParainfluenza Type 3 (PCR)Not detectedNOT [facility] Parainfluenza Type 4 (PCR)Not detectedNOT [facility] CenterRespiratory Syncytial Virus (PCR)Not detectedNOT [facility] CenterUrine Microscopic ReviewNOAvita [facility] Absolute Basophils (Manual)0.00 10 3/uL0.00-0.10[facility] HospitalBand Neutrophils # (Manual)3.7 10 3/uL0.0-0.3FSt. Francis HospitalEosinophils # (Manual)0.00 10 3/uL0.00-0.70[facility] HospitalLymphocytes # (Manual)0.98 10 3/uL1.20-3.80[facility] HospitalMonocytes # (Manual)1.23 10 3/uL0.30-0.80[facility] Reactive Lymphocytes3.19[facility] HospitalReactive Lymphocytes 13.0 %[facility] Hospitalegmented Neutrophils # (Manual)15.49 10 3/uL1.4-6.5FSt. Francis HospitalTroponin I High Gbetydcophs23.0 pg/mL4.0-51.3FSt. Francis HospitalComment on above:CUT-OFF POINTS HAVE BEEN ESTABLISHED BASED ON THE FOURTHUNIVERSAL DEFINITION OF MYOCARDIAL INFARCTION. THE UPPERREFERENCE LIMIT (URL) OF TROPONIN, DEFINED THE 99THPERCENTILE OF cTnI DISTRIBUTION IN A REFERENCE POPULATION,HAS BEEN CONFIRMED THE DECISION THRESHOLD FOR MIDIAGNOSIS.99TH PERCENTILE = 51.4 PG/MLNOTE: HIGH-SENSITIVITY TROPONIN ASSAY IS NOT INTENDED TO BEUSED IN ISOLATION BUT SHOULD BE INTERPRETED IN CONJUNCTIONWITH OTHER DIAGNOSTIC AND CLINICAL INFORMATION.No Panel InformationOrdered By: Oumar Gunter on 26-26-7115Uvbvp Culture 2FSt. Francis HospitalBlood Culture 1FSt. Francis HospitalPlatelet mean volume Auto (Bld) [Entitic vol]on 87-69-8377Iydjuupb mean volume (Bld) [Entitic vol]10.5 fL9.5-13.5FSt. Francis Hospital Platelets Auto (Bld) [#/Vol]on 67-59-1345Subqyglfo (Bld) [#/Vol]272 10 3/uL 150-450[facility] HospitalProtein Auto test strip (U) [Mass/Vol]on 21-15-8527Xuwvkul (U) [Mass/Vol]TRACE mg/dLNEG/TRACEAvita Health System Galion HospitalRBC Auto (Bld) [#/Vol]on 48-48-3436OYH (Bld) [#/Vol]3.66 10 6/uL4.20-5.40 [facility] Hospitalegmented neutrophils/100 WBC Manual cnt (Bld) on 41-59-7900Yynswychj neutrophils/100 WBC (Bld)63.0 %[facility] Hospitalerum or plasma albumin/globulin mass ratioon 68-61-4805Fpspgtp/Globulin [Mass ratio]0.6 {ratio}[facility] Hospitalerum or plasma anion gap determinationon 32-61-0894Hmazv gap [Moles/Vol]15.7 mmol/LFDayton Children's Hospitalerum procalcitonin measurementon 87-40-8152Hgyqevemsrfai [Mass/Vol]0.52 ng/mL0.00-0.50[facility] Hospitalpecific gravity Auto test strip (U) [Rel density]on 56-67-0652Xxowuent gravity (U) [Rel density] CLEARCLEARFSt. Francis HospitalUrine glucose measurement by test strip (mass/volume)on 47-86-6667Eyvfcrf Test strip (U) [Mass/Vol]Negative NEGATIVEAvita Health System Galion HospitalUrine hemoglobin detection by automated test stripon 82-01-6629Sllceopvzg Auto test strip Ql (U)NegativeNEGATIVE [facility] HospitalUrine nitrite detection by automated test strip on 66-84-6437Zwpwmlt Auto test strip Ql (U)NegativeNEGATIVEAvita Health System Galion HospitalUrobilinogen Auto test strip (U) [Mass/Vol]on 05-25-2023 Urobilinogen Qn (U)0.2 {Valentino'U}/dL0.2-1.0[facility] HospitalpH Auto test strip (U)on 25-09-8062jA (U)5.0 [pH]5.0-9.0[facility] HospitalXR knee LT 2Von 75-84-8964AB knee LT 2VDetwiler Memorial Hospital Runner Other XR knee LT 2V[facility] Runner Other XR knee LT [id number] [place] [address] Runner Other XR knee LT 2VS[place], [place] [address]Bnfth Runner Other XR knee LT 2VXRHCA [facility] Runner Other XR knee LT 2VSPhelps Health Runner Other XR knee LT 2VPatient: Catherine Tang MR#: [id number] Beauty Runner Other XR knee LT [id number] Runner Other XR knee LT 2VDOB: 1945 Acct:[id number] Runner Other XR knee LT 2VAge/Sex: 77 / F ADM Date: 07/02/22Beauty Runner Other xr knee LT 2VLoc: SOXD Room: Type: [facility] Runner Other xr knee LT 2VAttending Dr: Miguel Spring II, MD [employer] Other xr knee LT 2VCopies to: Miguel Spring MDBeauty Runner Other xr knee LT 2VOrdering Provider: Miguel Spring MD [employer] Other xr knee LT 2VDate of Service: 07/02/22Beauty Runner Other xr knee LT 2VAccession #: ([id number]) XR/XR knee LT 2V: Primary osteoarthritis of left kneeBeauty Runner Other xr knee LT 2VLEFT KNEE - 2 viewsNosullivan county memorial hospital Runner Other xr knee LT 2VCOMPARISON: 10/16/2021Beauty Runner Other xr knee LT 2VCLINICAL DATA: Follow-up knee replacement.[employer] Other xr knee LT 2VAP and lateral standing views were obtained. A knee prosthesis is again visualized. The hardwareBeauty Runner Other xr knee LT 2Vappears intact and unchanged from the prior. There are no developing fractures or dislocation.[employer] Other xr knee LT 2VThere is no sizable knee effusion.[employer] Other xr knee LT 2VORDER #: [id number] XR/XR knee LT 2VSolegear Bioplastics Other xr knee LT 2VIMPRESSION:[employer] Other xr knee LT 2VSTABLE KNEE REPLACEMENT.[employer] Other xr knee LT 2VImpression dictated by: Qi Espinoza M.D.07/02/2022 1:42 PMNMorgan [facility] Hospital [employer] Other xr knee LT 2VDictation Location: [id number] [place] [employer] Other xr knee LT 2VTranscribed By: JACLYN 07/02/[address] [place] [address] Runner Other xr knee LT 2VDictated By: Qi Espinoza MD 07/02/[address] [place] [address] [employer] Other xr knee LT 2VSigned By:[facility] [employer] Other xr knee LT 2V07/02/[address] [place] [address] Runner Other ECHOCARDIO M/2D COMPLETEon 20-35-2803SZLNKWPPNZ M/2D COMPLETEPatient: CATHERINE TANG Exam Date: 10/17/2021 : 1945 Gender:F Ordering : DR OUMAR GUNTER M.D. Admission #: [id number] Family : Order #: [id number] CLICK HERE TO VIEW EXAM ECHOCARDIOGRAM REPORT [...] by: Ibrahima Arguelles M.D. on 10/17/2021 at 17:41[facility] HospitalANES POSTPROC EVALon 70-31-9136VLQA POSTPROC EVALHNO ID: [id number] Author: Maria Guadalupe Lagos MD Service: Anesthesiology Author Type: Anesthesiologist Type: Anesthesia Postprocedure Evaluation Filed: 08/20/2021 12:24 PM Note Text: POST ANESTHESIA EVALUATION NOTE : 1945 Procedure Summary Date: 08/20/21 Room / Location: [address] Anesthesia Start: 1121 Anesthesia Stop: 1138 Procedures: PHACOEMULSIFICATION CATARACT IMPLANT INTRAOCULAR LENS W/O ENDOSCOPIC CYCLOPHOTOCOAGULATION (Right Eye) OPHTHALMIC BIOMETRY BY PARTIAL COHERENCE INTERFEROMETRY W/INTRAOCULAR LENS POWER CALCULATION (Right Eye) Diagnosis: Combined forms of age-related cataract of both eyes Surgeons: Jennifer Infante V, MD Responsible Provider: Maria Guadalupe Lagos [...] MARIA GUADALUPE LAGOS MD PATIENT NAME: Catherine Tang DATE: August 20, 2021 TIME: 12:23 PM CSN: [id number] [facility] Hospital PRE-OPon [id number] PRE-OPHNO ID: [id number] Author: Maria Guadalupe Lagos MD Service: Anesthesiology Author Type: Anesthesiologist Type: Anesthesia Preprocedure Evaluation Filed: 08/20/2021 9:00 AM Note Text: ANESTHESIOLOGY DAY OF SURGERY NOTE : 1945 Procedure Information Date/Time: 08/20/21 1055 Procedures: PHACOEMULSIFICATION CATARACT IMPLANT INTRAOCULAR LENS W/O ENDOSCOPIC CYCLOPHOTOCOAGULATION (Right Eye) OPHTHALMIC BIOMETRY BY PARTIAL COHERENCE INTERFEROMETRY W/INTRAOCULAR LENS POWER CALCULATION (Right Eye) Location: [address] Surgeons: Jennifer Infante V, MD Estimated body mass index is [...] and consent discussed: yes. Patient / Responsible Constitution Party agrees to proceed: yes Patient / Surrogate [...] Drop BOTH EYES As Directed - [] fluorescein-benoxinate 0.25-0.4 % 1 Drop (FLURESS) 1 Drop [...] MARIA GUADALUPE LAGOS MD PATIENT NAME: Catherine Tang DATE: August 20, 2021 TIME: 8:59 AM CSN: [id number] Clinic [facility] Hospital NOon [id number] NOHNO ID: [id number] Author: Jennifer Infante V, MD Service: Ophthalmology Author Type: Physician Type: Operative Report Filed: 08/20/2021 11:39 AM Note Text: OPERATIVE REPORT DATE OF SERVICE: August 20, 2021 PRIMARY SURGEON: Jennifer Infante M.D. TECHNICAL CUSTOMER SUPPORT SPECIALIST: None Procedure(s) (LRB): PHACOEMULSIFICATION CATARACT IMPLANT INTRAOCULAR [...] corneal incision was created temporally with a Venetie Ira blade then a 2.4 mm keratome. The [...] Implant Name Type Inv. Item Serial No. Boring Machine Feeder Lot No. LRB Model Num No. Used LENS IOL 0D +13 TONY UV ABS - [id number] Intraocular Lens LENS IOL 0D +13 TONY UV ABS [id number] TIAN [employer]con SURG[employer] Right [id number] was inserted through [...] Dr Dang; relinquish care POD #1 Jennifer INFANTE MDNokokoOhioHealth Nelsonville Health Center POSTPROC EVALon 08-06-2021 ANES POSTPROC EVALHNO ID: [id number] Author: Chencho Leon MD Service: Anesthesiology Author Type: Anesthesiologist Type: Anesthesia Postprocedure Evaluation Filed: 08/06/2021 1:06 PM Note Text: POST ANESTHESIA EVALUATION NOTE : 1945 Procedure Summary Date: 08/06/21 Room / Location: [address] Anesthesia Start: 1031 Anesthesia Stop: 105 Procedures: PHACOEMULSIFICATION CATARACT IMPLANT INTRAOCULAR LENS W/O ENDOSCOPIC CYCLOPHOTOCOAGULATION (Left Eye) OPHTHALMIC BIOMETRY BY PARTIAL COHERENCE INTERFEROMETRY W/INTRAOCULAR LENS POWER CALCULATION (Left Eye) Diagnosis: Combined forms of age-related cataract of both eyes Surgeons: Jennifer Infante V, MD Responsible Provider: Chencho Leon MD [...] SIGNATURE: Chencho Leon MD PATIENT NAME: Catherine Tang DATE: August 06, 2021 TIME: 1:06 PM CSN: [id number] Medical Center PRE-OPon [id number] PRE-OPHNO ID: [id number] Author: Chencho Leon MD Service: Anesthesiology Author Type: Anesthesiologist Type: Anesthesia Preprocedure Evaluation Filed: 08/06/2021 10:28 AM Note Text: ANESTHESIOLOGY DAY OF SURGERY NOTE : 1945 Procedure Information Date/Time: 08/06/21 1025 Procedures: PHACOEMULSIFICATION CATARACT IMPLANT INTRAOCULAR LENS W/O ENDOSCOPIC CYCLOPHOTOCOAGULATION (Left Eye) OPHTHALMIC BIOMETRY BY PARTIAL COHERENCE INTERFEROMETRY W/INTRAOCULAR LENS POWER CALCULATION (Left Eye) Location: [place] [address] / [facility] Surgeons: Jennifer Infante V, MD Estimated body mass index is [...] and consent discussed: yes. Patient / Responsible Constitution Party agrees to proceed: yes Patient / Surrogate [...] ON 08/07/2021] lidocaine 2 % (XYLOCAINE) OTHER Combo Welder to OR - tetracaine (PF) 0.5 % [...] SIGNATURE: Chencho Leon MD PATIENT NAME: Catherine Tang DATE: August 06, 2021 TIME: 10:10 AM CSN: [id number] Clinic Mentor Hospital NOon [id number] HEDRICK MEDICAL CENTERO ID: [id number] Author: Jennifer Infanet V, MD Service: Ophthalmology Author Type: Physician Type: Operative Report Filed: 08/06/2021 10:49 AM Note Text: OPERATIVE REPORT DATE OF SERVICE: August 06, 2021 PRIMARY SURGEON: Jennifer Infante M.D. TECHNICAL CUSTOMER SUPPORT SPECIALIST: None Procedure(s) (LRB): PHACOEMULSIFICATION CATARACT IMPLANT INTRAOCULAR [...] corneal incision was created temporally with a Venetie Ira blade then a 2.4 mm keratome. The [...] Implant Name Type Inv. Item Serial No. Boring Machine Feeder Lot No. LRB Model Num No. Used LENS IOL 0D +13 TONY UV ABS - [id number] Intraocular Lens LENS IOL 0D +13 TONY UV ABS [id number] TIAN AndersonBrecon SURGICAL Left [id number] 1 was inserted through [...] 10:48 AM - Comanage with Dr Dang[facility] Jennifer [facility]FANTE [facility]eg[facility] PHYSICALon 07-30-2021 HISTORY PHYSICALHNO ID: [id number] Author: Shikha Kate APRN.CNP Service: ? Author Type: Nurse Practitioner Type: HANDP Filed: 07/30/2021 12:04 PM Note Text: HISTORY AND PHYSICAL EXAMINATION SERVICE DATE: 07/30/2021 SERVICE TIME: 8:51 AM PRIMARY CARE PHYSICIAN: Oumar Gunter MD REASON FOR VISIT: Catherine Tang is a 76 year old female who is scheduled for Bilateral Cataracts at the request of Dr. Jennifer Infante V for consultation. My final recommendation will [...] implants - PAST SURGICAL HISTORY OF SCS ([employer]) - TOTAL KNEE REPLACEMENT Left FAMILY HISTORY [...] fevers. Neuro: No history of TIA's, stroke, SECURITIES TRADER tumor, impaired sensorium, hemiplegia, paraplegia or quadraplegia. No neurological symptoms or problems. Respiratory: No history of current cough or dyspnea, or pneumonia in the past 6 weeks. No history of respiratory/pulmonary symptoms or problems. Cardiovascular: No history of HTN requiring medication, no history of angina, CHF, DE, cardiac surgery or stents. Denies rest pain, gangrene or revascularization/amputation for PVD. No history of cardiovascular symptoms or problems. +HLD GI: No history of GI symptoms or problems. No history of esophageal varices, recent ascites, or ETOH greater than 2 drinks per day. : No history of dysuria, frequency or incontinence,, stones or chronic kidney disease +urgency ENVIRONMENTAL SOLUTIONS ENGINEER: Negative for abnormal vaginal bleeding, abnormal vaginal [...] 206 lb (93.4kg) SpO2 (more content not included)...NormalCleveland Clinic Medina Hospital CAROTID ART BILon 39-08-0252XZ CAROTID ART BILEXAMINATION: US CAROTID ART FRACISCO HISTORY: Cardiovascular symptoms [...] Electronically authenticated by: EDWARDO MANE Date: 2021-04-29 07:05NormalThe [facility] HospitalCovid-19 PCR (CVDTBH)on 39-58-0309IGUD-CoV-2 (COVID-19) RNA ITZEL+probe Ql (Unsp spec)DetectedCritically abnormalNOT DETECTEDThe [facility] HospitalComment on above:Result Comment: This test is not yet approved or cleared by the [place] FDA. When there are no FDA-approved or cleared tests available, and other criteria are met, FDA can make tests available under an emergency access mechanism called an Emergency Use Authorization (EUA). The EUA for this test is supported by the Color Grinder of Health and Human Service's (HHS's) declaration [...] no longer be used). Performed By: #### CVDTBH #### [facility] [address] [place] [address] Dr. Марина LangTHYROID ANTIBODIESon 74-59-6456Yfjggqolutcgu Antibody<1.0Normal 0.0-0.9[facility]-Rittman HospitalComment on above:Result Comment: Thyroglobulin Antibody measured by Salty Tony MethodologyPerformed By: #### THYRABS #### [facility] [address] [place] [address] Dr. Марина LangThyroid Peroxidase (TPO) Ab<2Ahulix2-28God [facility] Comment on above:Performed By: #### THYRABS #### [facility] [address] [place] [address] Dr. Марина LangCBC AUTO DIFFon 52-25-0162PFOC #0.1 103/ulNormal0.0-0.1[facility]sworth-Rittman HospitalComment on above:Performed By: #### CBC #### [facility] [address] [place] [address] Dr. Марина LangBasophils/100 WBC (Bld)0.9 %Normal0.2-2.0The [facility] Comment on above:Performed By: #### CBC #### [facility] [address] [place] [address] Dr. Марина Ghotra #0.3 103/ulNormal0.0-0.7The [facility] HospitalComment on above: Performed By: #### CBC #### [facility] [address] [place] [address] Dr. Марина Toosinophils/100 WBC (Bld)5.7 %Normal0.9-7.0The [facility] Comment on above:Performed By: #### CBC #### [facility] [address] [place] [address] Dr. Марина Torythrocyte distribution width (RBC) [Ratio]14.0 %Nklifo62.0-15.0 The [facility] HospitalComment on above:Performed By: #### CBC #### [facility] [address] [place] [address] Dr. Марина LangHematocrit (Bld) [Volume fraction]40.5 %Ejcujf38.0-48.0The [facility] HospitalComment on above:Performed By: #### CBC #### [facility] [address] [place] [address] Dr. Марина LangHemoglobin (Bld) [Mass/Vol]12.3 g/mMIvrjuy10.0-16.0The [facility] HospitalComment on above:Performed By: #### CBC #### [facility] [address] [place] [address] Dr. Марина Phan #0.01 10e3/ulNormal0.00-0.03The [facility] HospitalComment on above:Performed By: #### CBC #### [facility] [address] [place] [address] Dr. Марина Phan %0.2 %Normal0.0-0.5The [facility] HospitalComment on above: Performed By: #### CBC #### [facility] [address] [place] [address] Dr. Марина Lazo #1.5 103/ulNormal1.2-3.8The [facility] HospitalComment on above:Performed By: #### CBC #### [facility] [address] [place] [address] Dr. Марина Orrmphocytes/100 WBC (Bld)27.9 %Gwtuvz90.5-60.0The [facility] HospitalComment on above:Performed By: #### CBC #### [facility] [address] [place] [address] Dr. Марина Dunn DIFF REQNONormalThe [facility] HospitalComment on above: Performed By: #### CBC #### [facility] [address] [place] [address] Dr. Марина Hansen (RBC) [Entitic mass]28.6 xsAwbzxw32.7-34.0The [facility] HospitalComment on above:Performed By: #### CBC #### [facility] [address] [place] [address] Dr. Марина Hansen (RBC) [Mass/Vol]30.4 g/sKSyqvya57.9-35.2The [facility] HospitalComment on above:Performed By: #### CBC #### [facility] [address] [place] [address] Dr. Марина Hansen (RBC) [Entitic vol]94.2 qVAhrnvt66.0-99.0The [facility] HospitalComment on above:Performed By: #### CBC #### [facility] [address] [place] [address] Dr. Марина Rubio #0.5 103/ulNormal0.3-0.8The [facility] HospitalComment on above:Performed By: #### CBC #### [facility] [address] [place] [address] Dr. Мраина Burgosocytes/100 WBC (Bld)9.0 %Normal1.7-12.0[facility] Comment on above:Performed By: #### CBC #### [facility] [address] [place] [address] Dr. Марина ChuUT #3.1 103/ulNormal1.4-6.5[facility] on above:Performed By: #### CBC #### [facility] [address] [place] [address] Dr. Марина Chuutrophils/100 WBC (Bld)56.3 %Ghsiux45.0-75.0The [facility] HospitalComkarmanos cancer center on above:Performed By: #### CBC #### [facility] [address] [place] [address] Dr. Марина LangPlatelet mean volume (Bld) [Entitic vol]9.9 fLNormal9.5-13.5The [facility] HospitalComkarmanos cancer center on above:Performed By: #### CBC #### [facility] [address] [place] [address] Dr. Марина LangPLT172 103/ypEpcciq052-944Gtf [facility] HospitalComkarmanos cancer center on above: Performed By: #### CBC #### [facility] [address] [place] [address] Dr. Марина LangRBC4.30 106/ulNormal4.20-5.40The [facility] on above:Performed By: #### CBC #### [facility] [address] [place] [address] Dr. Марина LangWBC5.4 103/ulNormal4.0-11.0The [facility] on above: Performed By: #### CBC #### [facility] [address] [place] [address] Dr. Марина LangFREE T4on 15-91-5199Djjd T4 [Mass/Vol]1.06 ng/dLNormal0.78-2.19 [facility] on above:Performed By: #### FT4 #### [facility] [address] [place] [address] Dr. Марина LangGLYCOHEMOGLOBIN A1Con 70-55-5527TYQ RECOMMENDATIONADA THERAPEUTIC TARGET 6.0 - 7.0 ACTION SUGGESTED > 7.0NormalThe Chase HospitalComment on above:Performed By: #### A1C #### [facility] [address] [address] [address] Марина LangGlucose [Mass/Vol]131 mg/dLNoMercy Health Defiance HospitalComment on above:Performed By: #### A1C #### [facility] [address] [address] [address] Марина LangHbA1c (Bld) [Mass fraction]6.2 %Critically high<=6.0The [facility] HospitalComment on above:Performed By: #### A1C #### [facility] [address] [place] [address] Dr. Марина PuenteF CHEM 8 (BAS METB)on 59-34-1781Ycqqz gap [Moles/Vol]8.9 mmol/LNormalThe [facility] HospitalComment on above:Performed By: #### BMP, TSH #### [facility] [address] [place] [address] Dr. Марина LangCalcium [Mass/Vol]10.0 mg/dLNormal8.4-10.2The [facility] Comment on above:Performed By: #### BMP, TSH #### [facility] [address] [place] [address] Dr. Марина LangChloride [Moles/Vol]105 mmol/GEoeksb49-499Etl [facility] Hospital Comment on above:Performed By: #### BMP, TSH #### [facility] [address] [place] [address] Dr. Марина LangCO2 [Moles/Vol]35.0 mmol/LCritically high22.0-30.0The [facility] HospitalComment on above:Performed By: #### BMP, TSH #### [facility] [address] [place] [address] Dr. Марина LangCreatinine [Mass/Vol]1.10 mg/dLCritically high0.52-1.04The [facility] HospitalComment on above:Performed By: #### BMP, TSH #### [facility] [address] [place] [address] Dr. Yilan ChangEGFR-AF XKPGUXZU79 mL/min/1.45x7Cpdwhzfhfb low>=60The [facility] HospitalComment [facility] above:Performed By: #### BMP, TSH #### [facility] [address] [address] [address] Марина ToGFR-NON AF IBDDDQDK29 mL/min/1.11c0Mvzgzeuyep low>=60The [facility] HospitalComment on above:Performed By: #### BMP, TSH #### [facility] [address] [place] [address] Dr. Марина LangGlucose [Mass/Vol]107 mg/dLCritically rjmn53-712Axb [facility] HospitalComment on above:Performed By: #### BMP, TSH #### [facility] [address] [place] [address] Dr. Марина LangPotassium [Moles/Vol]4.9 mmol/LNormal3.4-5.0The [facility] Comment on above:Performed By: #### BMP, TSH #### [facility] [address] [place] [address] Dr. Марина LangSodium [Moles/Vol]144 mmol/DMxggjh137-506Zgm [facility] Comment on above:Performed By: #### BMP, TSH #### [facility] [address] [place] [address] Dr. Марина LangUrea nitrogen [Mass/Vol]17.0 mg/dLNormal7.0-17.0The [facility] HospitalComment on above:Performed By: #### BMP, TSH #### [facility] [address] [place] [address] Dr. Марина LangUrea nitrogen/Creatinine [Mass ratio]15.5 mg/mgNormalThe [facility] HospitalComment on above:Performed By: #### BMP, TSH #### [facility] [address] [place] [address] Dr. Марина Bauman 65-63-9382VEA8.603 uIU/mLNormal0.470-4.680The [facility] HospitalComment on above:Performed By: #### BMP, TSH #### [facility] [address] [place], [place] [address] Dr. Марина [facility]ieto [facility]: Result Comment: <0.34 UIU/ml HYPERTHYROID 0.34-5.60 UIU/ml EUTHYROID >5.60 UIU/ml HYPOTHYROIDPerformed By: #### BMP, TSH #### [facility] [id number] Марина Vann BIOMETRY W/ IOL CALC OU (BOTH EYES)[facility] Vital Signs Date TimeVital SignValuePerforming GflxjzecdMksmsrct23-21-4657 10:02-0400 Diastolic blood klyynsyz84 mm[Hg]Oumar Gunter MD Work Phone: 1(355)[address]09-26-2025 10:02-0400 Heart rate92 /minOumar Gunter MD Work Phone: 1(459)[address]09-26-2025 10:02-0400 Systolic blood olspzcpi555 mm[Hg]Oumar Gunter MD Work Phone: 1(557)[address]09-26-2025 09:57-0400 Body uaxnhc488.02 cmOumar Gunter MD Work Phone: 1(640)[address]09-26-2025 09:57-0400 Body mass index (BMI) [Ratio]35.4 kg/m9NtowslOumar Gunter MD Work Phone: 1(880)[address]09-26-2025 09:57-0400 Body unmjziomirm78.3 [degF]Oumar Gunter MD Work Phone: 1(201)[address]09-26-2025 09:57-0400 Body yoqduw16.71 kgOumar Gunter MD Work Phone: 1(579)[address]06-27-2025 10:12-0400 Body pyxshx124.02 cmOumar Gunter MD Work Phone: 1(198)[address]06-27-2025 10:12-0400 Body mass index (BMI) [Ratio]34.5 kg/w6TsptngOumar Gunter MD Work Phone: 1(991)[address]06-27-2025 10:12-0400 Body kbjueqlaepe73.2 [degF]Oumar Gunter MD Work Phone: 1(534)[address] [place], [place] [address]45[address]06-27-2025 10:12-0400 Body iczovq08.45 kgOumar Gunter MD Work Phone: 1(826)[address] [place], [place] [address]450106-27-2025 10:12-0400 Diastolic blood mm[Hg]Oumar Gunter MD Work Phone: 1(606)[address] [place], [place] [address]0106-27-2025 10:12-0400 Heart rate95 /Joanne Gunter MD Work Phone: 1(344)[address] [place], [place] [address]450106-27-2025 10:12-0400 Systolic blood nfrxnuso155 mm[Hg]Oumar Gunter MD Work Phone: 1(195)[address] [place], [place] [address]450105-06-2025 13:38-0400 Body wlpugm544.02 cmOumar Gunter MD Work Phone: 1(657)[address] [place], [place] [address]450105-06-2025 13:38-0400 Body mass index (BMI) [Ratio]36.3 kg/y8OgilonOumar Gunter MD Work Phone: 1(277)[address] [place], [place] 7450105-06-2025 13:38-0400 Body zpeyey32.98 kgOumar Gunter MD Work Phone: 1(751)[address] [place], [place] [address]450105-06-2025 13:38-0400 Diastolic blood juiwihyp37 mm[Hg]Oumar Gunter MD Work Phone: 1(884)[address] [place], [place] [address]450105-06-2025 13:38-0400 Heart rate95 /Joanne Gunter MD Work Phone: 1(062)[address] [place], [place] [address]450105-06-2025 13:38-0400 SaO2% (BldA) [Mass fraction]94 %Oumar Gunter MD Work Phone: 1(332)[address] [place], [place] [address]05-06-2025 13:38-0400 Systolic blood lhlziegh912 mm[Hg]Oumar Gunter MD Work Phone: 1(951)[address]04-29-2025 10:58-0400 Body gxfplf4152.24 cmOumar Gunter MD Work Phone: 1(185)[address]04-29-2025 10:58-0400 Body mass index (BMI) [Ratio]0.2 kg/e8HvfwpoOumar Gunter MD Work Phone: 1(168)[address] [place], [place] [address]45[address]04-29-2025 10:58-0400 Body kuuxoe74.35 kgOumar Gunter MD Work Phone: 1(670)[address] [place], [place] [address]04-29-2025 10:58-0400 Diastolic blood pckxenxs50 mm[Hg]Oumar Gunter MD Work Phone: 1(175)[address] [place], [place] [address]450104-29-2025 10:58-0400 Heart rate84 /Joanne Gunter MD Work Phone: 1(071)[address] [place], [place] [address]04-29-2025 10:58-0400 Systolic blood lzygoxjc838 mm[Hg]Oumar Gunter MD Work Phone: 1(870)[address] [place], [place] 7450104-01-2025 14:15-0400 Body ezpupe547.02 cmOumar Gunter MD Work Phone: 1(360)[address] [place], [place] 745[address]04-01-2025 14:15-0400 Body mass index (BMI) [Ratio]34.9 kg/p3ZcakofOumar Gunter MD Work Phone: 1(270)[address] [place], [place] 7450104-01-2025 14:15-0400 Body .35 kgOumar Gunter MD Work Phone: 1(414)[address] [place], [place] 7450104-01-2025 14:15-0400 Diastolic blood iazwrwrm24 mm[Hg]Oumar Gunter MD Work Phone: 1(324)[address] [place], [place] 7450104-01-2025 14:15-0400 Heart rate86 /Joanne Gunter MD Work Phone: 1(806)[address] [place], [place] [address]45[address]04-01-2025 14:15-0400 Systolic blood dtvslibb138 mm[Hg]Oumar Gunter MD Work Phone: [facility]03-28-2025 09:56-0400 Body jyyqua722.02 [facility]03-28-2025 09:56-0400Body mass index (BMI) [Ratio]34.9 kg/v4QkliqvwzfAv[facility]03-28-2025 09:56-0400Body bgkavnsnvyc40.4 [degF][facility]03-28-2025 09:56-0400Body ivroac18.35 kgAv[facility]03-28-2025 09:56-0400Diastolic blood mm[Hg][facility] 06-23-2024 09:56-0400Heart rate92 /[facility] 06-23-2024 09:56-0400Systolic blood mm[Hg][facility]01-29-2025 09:27-0500Body .02 [facility]01-29-2025 09:27-0500Body mass index (BMI) [Ratio]34.3 kg/w6WzqaofvbeAv[facility] Health System [facility]01-29-2025 09:27-0500Body mgipjuwbuhi16.8 [degF][facility]01-29-2025 09:27-0500Body [facility]01-29-2025 09:27-0500Diastolic blood mm[Hg][facility]01-29-2025 09:27-0500Heart rate86 /[facility]01-29-2025 09:27-0500Systolic blood mm[Hg][facility]12-09-2024 11:50-0500Body mxsqde860.02 [facility]12-09-2024 11:50-0500Body mass index (BMI) [Ratio]34.9 kg/d9HlrmgvzcpAv[facility]12-09-2024 11:50-0500Body lnonet88.35 kg [facility]12-09-2024 11:50-0500Diastolic blood mm[Hg][facility]12-09-2024 11:50-0500Heart rate86 /min [facility]12-09-2024 11:50-0500Systolic blood domqeltb113 mm[Hg][facility]03-06-2024 09:33-0500Body izlrec603.02 cmMD Oumar Gunter Work Phone: [facility]03-06-2024 09:33-0500 Body mass index (BMI) [Ratio]33.6 kg/m2MD Oumar Gunter Work Phone: [facility]03-06-2024 09:33-0500 Body dfkoms61.18 kgMD Oumar Gunter Work Phone: [facility]03-06-2024 09:33-0500 Diastolic blood bskajakw92 mm[Hg]MD Oumar Gunter Work Phone: [facility]03-06-2024 09:33-0500 Heart hovd734 /minMD Oumar Gunter Work Phone: [facility]03-06-2024 09:33-0500 Systolic blood aiiezvjq448 mm[Hg]MD Oumar Gunter Work Phone: [facility]12-13-2023 10:00-0500 Body xsgsjy544.02 cmOumar Gunter Other [facility] Other [id number] 10:00-0500Body mass index (BMI) [Ratio] 34.68 kg/j1VamttmOumar Gunter Other [facility] Other 12-13-2023 10:00-0500Body qyxhvv45.81 kgOumar Gunter Other [facility] Other 12-13-2023 10:00-0500Diastolic blood njiezrvw74 mm[Hg] Oumar Gunter Other [employer] Other [id number] 10:00-0500Systolic blood iyspntvs576 mm[Hg] Oumar Gunter Other [employer] Other 12-12-2023 11:20-0500Body zjiflo682.02 cmLinda Myra Other [employer] Other 12-12-2023 11:20-0500Body mass index (BMI) [Ratio] 34.72 kg/m0Zygvv Myra Other [employer] Other 12-12-2023 11:20-0500Body petpkn24.91 kgLinda Myra Other [employer] Other 12-12-2023 11:20-0500Diastolic blood unajrvla79 mm[Hg] Myra Other [employer] Other 12-12-2023 11:20-0500Respiratory rate20 /minLinda Myra Other [employer] Other 12-12-2023 11:20-8632OwB2% (BldA) [Mass fraction]92 % Myra Other [employer] Other 12-12-2023 11:20-0500Systolic blood ppcjxnya264 mm[Hg] Myra Other [employer] Other 11-13-2023 10:00-0500Body setsye433.02 cmLinda Myra Other [employer] Other 11-13-2023 10:00-0500Body mass index (BMI) [Ratio] 34.54 kg/l6Izwvg Myra Other [employer] Other 11-13-2023 10:00-0500Body .45 kgLinda Myra Other [employer] Other 11-13-2023 10:00-0500Diastolic blood ksdlnguj83 mm[Hg] Myra Other [employer] Other 11-13-2023 10:00-0500Respiratory rate18 /minLinda Myra Other [employer] Other 11-13-2023 10:00-5062BdX6% (BldA) [Mass fraction]94 % Myra Other [employer] Other 11-13-2023 10:00-0500Systolic blood mm[Hg] Myra Other [employer] Other 06-13-2023 10:30-0400Body .02 cmOumar Gunter Other [employer] Other 06-13-2023 10:30-0400Body mass index (BMI) [Ratio] 34.18 kg/u2UxaimeOumar Gunter Other [employer] Other 06-13-2023 10:30-0400Body .54 kgOumar Gunter Other [employer] Other 06-13-2023 10:30-0400Diastolic blood hrjtlcer08 mm[Hg] Oumar Gunter Other [employer] Other 06-13-2023 10:30-0400Systolic blood ftzctdyq338 mm[Hg] Oumar Gunter Other [employer] Other 04-06-2023 10:45-0400Body oxfzmd810.02 cmRobert [place] Other [employer] Other 04-06-2023 10:45-0400Body mass index (BMI) [Ratio]35.6 kg/p5Xqanro [place] Other [employer] Other 04-06-2023 10:45-0400Body ldfrow68.17 kgRobert Saw II Other [employer] Other 06-09-2022 10:45-0400Body xuzvkc275.02 cmRobert Saw II Other [employer] Other 06-09-2022 10:45-0400Body mass index (BMI) [Ratio]35.6 kg/l7Rkvgeg [place] Other [employer] Other 06-09-2022 10:45-0400Body ptrrju78.17 kgRobert [place] Other [employer] Other 05-12-2022 16:30-0400Body jhraeb094.02 cmRobert Saw II Other [employer] Other 05-12-2022 16:30-0400Body mass index (BMI) [Ratio]35.6 kg/g3Hdjfpk [place] Other [employer] Other 05-12-2022 16:30-0400Body spvbao91.17 kgRobert Saw II Other [employer] Other 05-04-2022 09:12-0400Body olzoaj189.3 cmPacc 1 Work Phone: [facility]05-04-2022 09:12-0400Body temperature 97 [degF]Pacc 1 Work Phone: [facility]05-04-2022 09:12-0400Body rdbulp49.44 kgPacc 1 Work Phone: [facility]05-04-2022 09:12-0400Diastolic blood xymqndkf67 mm[Hg]Pacc 1 Work Phone: [facility]05-04-2022 09:12-0400Heart ymnk227 /minPacc 1 Work Phone: [facility]05-04-2022 09:12-0400Respiratory rate 16 /minPacc 1 Work Phone: [facility]05-04-2022 09:12-5683QeK8% (BldA) [Mass fraction]96 %Pacc 1 Work Phone: [facility]05-04-2022 09:12-0400Systolic blood eiwxvjrp425 mm[Hg]Pacc 1 Work Phone: [facility]04-25-2022 12:30-0400Diastolic blood lglciniy78 mm[Hg]MD Oumar Gunter Work Phone: [facility]04-25-2022 12:30-0400 Heart rate98 /minMD Oumar Gunter Work Phone: [facility]04-25-2022 12:30-0400 Respiratory rate16 /minMD Oumar Gunter Work Phone: [facility]04-25-2022 12:30-0400 SaO2% (BldA) [Mass fraction]94 %MD Oumar Gunter Work Phone: [facility]04-25-2022 12:30-0400 Systolic blood mm[Hg]MD Oumar Gunter Work Phone: [facility]04-25-2022 12:00-0400 Inhaled oxygen flow rate1 L/minMD Oumar Gunter Work Phone: [facility]04-25-2022 10:21-0400 Body wiutrudkias62.2 [degF]MD Oumar Gunter Work Phone: [facility]04-25-2022 07:16-0400 Body wxvjri108.29 cmMD Oumar Gunter Work Phone: [phone]04-25-2022 07:16-0400 Body mass index (BMI) [Ratio]35.7 kg/m2 Oumar Gunter Work Phone: [facility]04-25-2022 07:16-0400 Body kg Oumar Gunter Work Phone: [facility]04-08-2022 10:30-0400 Body eilcbv760.02 cmRobert [place] Other [employer] Other 04-08-2022 10:30-0400Body mass index (BMI) [Ratio] 35.42 kg/p4Pfdqze [place] Other [employer] Other 04-08-2022 10:30-0400Body .72 kgRobert [place] Other [employer] Other 03-02-2022 11:15-0500Body xynpyg695.02 cmRobert Saw II Other [employer] Other 03-02-2022 11:15-0500Body mass index (BMI) [Ratio]35.6 kg/l4Pdjhmg Saw II Other [employer] Other 03-02-2022 11:15-0500Body onwooz36.17 kgRobert [place] Other [facility] Other Encounters Encounter DateEncounter TypeCare ProviderFacilityStart: 12-22-2024 End: 83-62-1886jasapocryqWlhash E Braun MD Work Phone: [facility] Work Phone: Start: 12-22-2024 End: 02-79-4127Ljljffc encounter procedureMaria Victoria Aleman [facility] Work Phone: Start: 09-22-2024 End: 95-38-7506obypcemtwgQoiehh E Braun MD Work Phone: [facility] Work Phone: Start: 09-22-2024 End: 24-64-0372Sklgksu encounter procedureKatcharles Aleman [facility] Work Phone: Start: 64-68-8702Qpv-patient / Non-visitFidelina Escobar [facility] Work Phone: Start: 08-01-2024 End: 33-39-7364vnclxkfoujDbnytk E Braun MD Work Phone: [facility] Work Phone: Start: 08-01-2024 End: 74-13-1463Savramd encounter procedureOumar Gunter MD Work Phone: [facility] Work Phone: Start: 77-97-3901Qot-patient / Non-visitOumar Gunter MD Work Phone: [facility] Work Phone: Start: 66-01-6095Wzs-patient / Non-visitOumar Gunter MD Work Phone: [facility] Work Phone: Start: 03-36-1253Tna-patient / Non-visitOumar Gunter MD Work Phone: [facility] Work Phone: Start: 07-25-2024 End: 35-24-8467intmrgapfnEppqtx E Braun MD Work Phone: [facility] Work Phone: Start: 07-25-2024 End: 69-42-9527Ezbniyx encounter procedureOumar Gunter MD Work Phone: [facility] Physician [facility] Work Phone: Start: 08-70-1329Tgl-patient / Non-visitOumar Gunter MD Work Phone: [facility] Work Phone: Start: 06-27-2024 End: 62-51-1844okerlgodctMnznva E Braun MD Work Phone: [facility] Work Phone: Start: 06-27-2024 End: 21-43-3627Pjqmcpq encounter procedureOuamr Gunter MD Work Phone: [facility] Work Phone: Start: 06-27-2024 End: 04-52-9994Hcjnlep encounter procedureOumar Gunter MD Work Phone: [facility] Start: 06-27-2024 End: 76-53-6435japschtuecYoidjt E Braun MD Work Phone: [facility] Work Phone: Start: 06-23-2024 End: 80-67-9116tkrlzjjhwlDiplekbrbHenry [facility] Hospital Work Phone: Start: 06-23-2024 End: 90-96-2345Pcqbvwl [facility] Work Phone: Start: 05-09-2024 End: 84-55-2073sohftnwwcpGouzobkbs [facility] Work Phone: Start: 05-09-2024 End: 85-06-9908Njpyhta [facility] Work Phone: Start: 05-05-2024 End: 12-87-1686Ihiyzyy [facility] Work Phone: Start: 04-26-2024 End: 69-76-1442Fjbllak [facility] Work Phone: Start: 52-89-1825Oqtntlu encounter procedureOhioHealth [facility] Hospitaltart: 03-06-2024 End: 65-62-8824Lyzhcjd [facility] Work Phone: Start: 11-87-0011Nyo-patient / [facility] Work Phone: Start: 06-15-2023 End: 20-24-7453odwsqowupgIQ Oumar Gunter Work Phone: [facility] Work Phone: Start: 06-15-2023 End: 68-42-4519Mshnsonz ReferredMD Omuar Gunter Work Phone: [facility]ospStart: 41-11-0147Mfe-patient / Non-visitMD Oumar Gunter Work Phone: [facility] Work Phone: Start: 06-02-2023 End: 51-00-4523Dkblatc encounter procedureMD Oumar Gunter Work Phone: [facility] Physician [facility] Work Phone: Start: 13-13-7821Gyc-patient / Non-visitMD Oumar Gunter Work Phone: [facility] Work Phone: Start: 38-65-6668Cjp-patient / Non-visitMD Oumar Gunter Work Phone: [facility] Work Phone: Start: 89-03-4365Thc-patient / Non-visitMD Oumar Gunter Work Phone: [facility] Work Phone: Start: 52-90-1156Ryg-patient / Non-visitMD Oumar Gunter Work Phone: [facility] Work Phone: Start: 01-52-2538Eup-patient / Non-visitMD Oumar Gunter Work Phone: [facility] Work Phone: Start: 37-11-1130Fpv-patient / Non-visitMD Oumar Gunter Work Phone: [facility] Work Phone: Start: 42-45-0661Axt-patient / Non-visitMD Oumar Gunter Work Phone: [facility] Work Phone: Start: 05-04-2023 End: 61-71-6571murelawtvbDwasgp Braun Other [employer] Other Start: 39-48-6589Uomicnpsp encounterOumar GunterFPG [facility]: 03-10-2023 End: 12-68-4080cpreyrkfkbCaupgr Braun Other [employer] Other start: 73-30-0677Hmocwm outpatient visit 15 minutes Oumar Brown [facility]: 03-09-2023 End: 34-72-7392glmhceewcdUcyvf Myra Other [facility] [employer] Other Start: 65-77-8626Lzlcwn outpatient visit 25 minutes Jimmy CardiologyStart: 26-94-2901Fxnvztokc encounterMarcallie Brown [facility]: 03-03-2023 End: 99-80-8872neecneullzBX Oumar Jaswinder Gunter Work Phone: [employer] Other Start: 03-03-2023 End: 95-90-3687Vjdzonl encounter procedureMD Oumar Gunter Work Phone: [facility]-Respiratory Therapy Work Phone: Start: 03-02-2023 End: 40-91-9709Agovmus encounter procedureMD Oumar Gunter Work Phone: [facility]-Electrodiagnostics Work Phone: Start: 02-25-2023 End: 62-37-1599wdybcrnfqcIG Oumar Gunter Work Phone: [facility] Work Phone: Start: 02-25-2023 End: 50-29-9624Chcovss encounter procedureMD Oumar Gunter Work Phone: [facility]-Electro[facility] Work Phone: Start: 02-15-2023 End: 39-32-8050geqjerrtqsWetdqq Braun Other [employer] Other Start: 22-77-2358Lensakfno encounterOumar Brown [facility]: 02-10-2023 End: 55-78-0339lzfytztaktFgkgq Myra Other [employer] Other Start: 80-54-4088Xygsjzhbb encounterLinda MyraFPG Referral CoordinatorStart: 02-08-2023 End: 47-78-9303rqgfkyqgbvPpcxr Myra Other [employer] Other Start: 72-28-8636Zkhsmi outpatient new 45 minutesLinda Jimmy CardiologyStart: 02-01-2023 End: 01-13-9954kfmtfghyasAgrpbo Gunter Other [employer] Other Start: 29-72-7258Eqettnesz encounterMarcia BraunSt. [facility] Hospital ClinicStart: 01-05-2023 End: 71-50-1768ylybinfuybVbmeqr Gunter Other [employer] Other Start: 08-47-6924Qtupkwydu encounterMarcia BraunBanner Medical ClinicStart: 12-31-2022 End: 82-23-9571lznxuvtreoLxtlvg Gunter Other [employer] Other Start: 44-95-6518Ekrzlfbuo encounterMarcia BraunFPG [facility] ClinicStart: 10-01-2022 End: 24-13-0766cbyhjnhtqaObbagk Gunter Other [employer] Other Start: 76-28-8222Pzycfsbta encounterMarcia BraunFPG [facility] ClinicStart: 09-23-2022 End: 44-67-8765mmivncqiunYywxnw Gunter Other [employer] Other Start: 11-54-1148Tfxqifcjs encounterMarcia BraunFPG [facility] ClinicStart: 09-09-2022 End: 11-19-7632odiovjugubTnkrxg Gunter Other [employer] Other Start: 03-32-6037Tajtdhflv encounterMarcia Stephanie [facility] ClinicStart: 09-08-2022 End: 75-61-5414viymvgwcibRhhhnk Gunter Other [employer] Other Start: 31-36-4067Acoolz outpatient visit 25 minutes Oumar LyricoRd [facility] ClinicStart: 07-03-2022 End: 81-16-8237omwzfpwtglUhdrgi Gunter Other [employer] Other Start: 04-91-0725Szkthqjur encounterMarcia LyricOhioHealth Grady Memorial Hospitaltart: 07-02-2022 End: 68-85-2912Cwvszbx encounter procedureMD uOmar Gunter Work Phone: [facility] Start: 07-02-2022 End: 22-23-5955pmatuzgzlcJT Oumar Gunter Work Phone: [facility] Work Phone: Start: 06-03-2022 End: 84-92-4786hicdauswiaBussai Gunter Other [employer] Other Start: 18-96-1685Rfqbjuhbw encounterMarcia LyricSt. Vincent Hospital ClinicStart: 04-08-2022 End: 78-66-3109chmvfoxetdYwnwjl Gunter Other [employer] Other Start: 27-72-7307Vawiyoakw encounterMarcia LyricSt. Vincent Hospital ClinicStart: 73-31-3655ncrcrpnjxkRJ OUMAR GUNTERFacility:C0Fsbky: 10-17-2021 End: 04-14-7145fdabjnjfzvTS MARCIA E BRAUNFacility:A4Dabpc: 10-16-2021 End: 12-89-8528Kqqymid encounter procedure Oumar Gunter Work Phone: [facility] Start: 09-18-2021 End: 06-97-1291ndtvetqhkaFlprcn [place] Other [employer] Other Start: 39-27-6483Yagsuc outpatient visit 15 minutes Miguel [place] IIFPG [facility] OrthopedicsStart: 09-04-2021(Post-Op) Post-Op Miguel Saw IIFPG [facility] OrthopedicsStart: 09-04-2021 End: 21-40-9028czvdhflikmQllmim [place] Other [facility] Other Start: 09-04-2021 End: 14-83-6413Kvtqpqa encounter procedure Oumar Gunter Work Phone: [facility] Start: 08-27-2021 End: 23-14-9999nynnhfmkzeKVVCJO CARLISLEFacility:H4Twjlu: 08-20-2021 End: 52-48-1007Qshmjer encounter procedureSlyla Pacheco OD Work Phone: OphthalmologyComment on above:S/P cataract extraction and insertion of intraocular lens, left (Primary Dx); 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Start: 08-07-2021 (Post-Op) Post-OpRobert Saw IIFPG Iris OrthopedicsStart: 08-07-2021 End: 48-53-0075dsdkuztcdsKhtyok [place] Other [employer]Tel Runner Other Start: 08-07-2021 End: 06-98-7463Vuiwbng encounter procedureJennifer Infante MD Work Phone: OphthalmologyComment on above:S/P cataract extraction and insertion of intraocular lens, left (Primary Dx); 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Start: 07-30-2021 End: 03-98-5024Ckyczor encounter procedureEye Measurements Work Phone: OphthalmologyComment on above:Combined forms of age- related cataract of both eyesStart: 07-30-2021 End: 06-03-9494Qunhclzwb to establishmentHca [facility] Work Phone: [facility]HCStart: 07-30-2021 End: 89-49-3048pmkmfbcxxvWwpg [place] 1 Work Phone: Pre AnesthesiaComment on above:Pre-op evaluation (Primary Dx); Cataract of both eyes, unspecified cataract type; Other hyperlipidemia; Complex regional pain syndrome type 1, affecting unspecified siteStart: 07-30-2021 End: 10-43-7837Hufngdrfnrexi examination doneHca [facility] 1 Work Phone: pre AnesthesiaStart: 07-23-2021 End: 36-09-3378gmopcujbdhVusfmi [place] Other [employer] Other Start: 89-07-0574Yfmezuqkf encounterRobert [place] II [facility]icsStart: 07-21-2021 End: 95-78-9130obbxaibxcwCqbjda Saw II Other [employer] Other Start: 64-25-7166Mnphyngpc encounterRobert Saw II [facility]opedicsStart: 07-21-2021 End: 83-97-6311Tmrapxqyu to same day surgery centerMD Oumar Gunter Work Phone: [facility]Start: 07-11-2021(Prolonged) Prolonged ServicesRobert Saw IIFPPenikese Island [facility] OrthopedicsStart: 07-11-2021 End: 34-00-6603rrzvjekvivBekagx Saw II Other [employer] Other Start: 07-10-2021 End: 63-69-4249fbrxktunjzOknxdd [place] Other noS[employer] Other Start: 87-31-0977Witrautoe encounterRobert [place] II [facility]icsStart: 07-04-2021 End: 74-83-5323mwxklodpsaLndppq [place] Other noSolegear [employer] Other Start: 55-82-5901Iuceglpee for other preprocedural examinationRobert [place] IIFPG [facility] OrthopedicsStart: 02-19-7976Fjgjwft encounter procedureRobert [place] IIFPG [facility] OrthopedicsStart: 05-28-2021 End: 10-63-6324yxkssieduxZafpfp Saw II Other noS[employer] Other Start: 30-76-1826Egsvpknai for other preprocedural examinationRobert [place] IIFP[facility] OrthopedicsStart: 90-33-2270Vekarq outpatient visit 40 minutesRobert [place] IIFPG [facility]opedicsStart: 04-28-2021 End: 43-97-8112pkqrzpnujfZF OUMAR GUNTERFacility:H6Ghbdp: 04-03-2021 End: 74-07-2669kblbwhvvhmXI OUMAR GUNTERFacility:J2Tubsv: 04-01-2021 End: 94-90-9289zbraqiauziXW OUMAR GUNTERFacility:A5Yigvw: 02-04-2021 End: 06-32-4289nxvlvkeipsYBJUNO H FAWWADFacility:H1 Procedures DateProcedureProcedure DetailPerforming ClinicianStart: 24-67-0719Hgyvn X-ray of left wristMarcia Lyric BELLA Work Phone: Start: 06-13-4167Hwaohzma identified in Sputum by Respiratory cultureMD Oumar Gunter Work Phone: Start: 08-59-5884Cquuxpoagbq observation [Identifier] in Unspecified specimen by Gram stainMD Oumar Gunter Work Phone: Start: 81-82-7179Jnahc Culture 1MD Oumar Gunter Work Phone: Start: 57-38-0941Jzoyz Culture 2MD Oumar Gunter Work Phone: Start: 23-18-6038E-ray of left kneeMD Oumar Gunter Work Phone: Start: 37-04-1170Qqxep X-ray of left femurMD Oumar Gunter Work Phone: Start: 87-17-3134Zndxb X-ray of left tibia and left fibulaMD Oumar Gunter Work Phone: Start: 55-96-1066K-ray of left kneeMD Oumar Gunter Work Phone: Start: 11-90-1760O-ray of left kneeMD Oumar Gunter Work Phone: Start: 19-14-6163MBM BIOMETRY W/ IOL CALC OU (BOTH EYES)Jennifer Infante MD Work Phone: Start: 41-09-9298A-ray of left kneeMD Oumar Gunter Work Phone: Start: 97-31-0562Yldrw replacement of left knee joint MD Oumar Gunter Work Phone: Start: 48-81-8893Empoo depression screening assessment Eye Measurements Work Phone: Plan of Treatment DateCare ActivityDetailAuthorStart: 19-19-5287Yxbhi X-ray of left wristXR wrist LT min 3V*[facility] Hospitaltart: 46-00-5874NV Wrist - left GE 3 ViewsOhioHealth Grady Memorial Hospitaltart: 49-57-2569Xinmugx [facility] Work Phone: Start: 80-25-7874Ndewzqr [facility] Work Phone: Start: 91-71-9295Iajeyzhlstxa myocardial perfusion stress studyNM priscila perf SPECT rest & strOhioHealth Grady Memorial Hospitaltart: 64-46-7585Xllibxjoe vaccinationINFLUENZA (Season Ended)[facility]: 07-21-2021 End: 80-48-7264MudpysfezSt. Rita'S Hospital [facility]tr Work Phone: Start: 34-31-7386XDXXP-19 VACCINE (4 - Booster for Pfizer series)COVID-19 VACCINE (4 - Booster for Pfizer series)[facility] Start: 69-72-0835RIIVBXN DIRECTIVE DISCUSSIONADVANCE DIRECTIVE DISCUSSION [facility]art: 77-03-1974QCWYGDLJ SCREENDIABETES SCREENUniversity Hospitals Ahuja Medical Center Start: 29-23-5227Ntfpd depression screening assessmentDEPRESSION SCREENING [facility]: 02-56-5287LLKN DENSITYBONE DENSITYSelect [facility] Shawtart: 97-70-9023NJYKMCCLM AGE 65 AND OVER WITH 5YR LOOKBACK (#1)PNEUMOVAX AGE 65 AND OVER WITH 5YR LOOKBACK (#1)[facility]: 84-36-3265WLBRVXGN VACCINE (2 of 3)SHINGRIX VACCINE (2 of 3)[facility]: 29-53-8888Abmuz microalbumin profileDTAP,TDAP,TD (1 - Tdap)[facility]: 1963 ANNUAL PCP TEAM CHRONIC DISEASE VISITANNUAL PCP TEAM CHRONIC DISEASE VISIT [facility]: 68-59-0691NKZGEVTPI C SCREENINGHEPATITIS C SCREENING [facility]: 66-86-1520QTVXQVTIYTRG: 65+ (1 - PCV)PNEUMOCOCCAL: 65+ (1 - PCV)[facility]huja Medical CenterComprehensive metabolic 2000 panel - Serum or Plasma [facility] HospitalPatient referralSt. Rita'S Hospital [facility]tr Work Phone: Urine cultureAvita Health System Galion HospitalXR Chest 2 [facility] Immunizations Immunization DateImmunizationNotesCare SocdaktrRbtnevcv60-04-3397fxxjjfxwt, high dose seasonal, preservative-freeAvita Health System Galion Hospital10-25-2023 influenza, high dose seasonal, preservative-freeMarcia Gunter Other [facility] Other 10793501-31-2109aysvfxbtq virus vaccine, unspecified formulationMD Oumar Gunter Work Phone: [facility]10-14-2022influenza virus vaccine, split virus (incl. purified surface antigen)Oumar Gunter Other [employer] Other 10761511-37-1688cowycumav virus vaccine, unspecified formulationMD Oumar Gunter Work Phone: [facility]11-16-2021COVID-19 mRNA, Comirnaty (Pfizer)MD Oumar Gunter Work Phone: [facility]10-14-2021influenza virus vaccine, split virus (incl. purified surface antigen)Oumar Gunter Other [employer] Other 10858135-13-5634wokvarana virus vaccine, unspecified formulationMD Oumar Gunter Work Phone: [facility]03-04-2021COVID-19 mRNA, Comirnaty (Pfizer)MD Oumar Gunter Work Phone: [facility]02-11-2021COVID-19 mRNA, Comirnaty (Pfizer)MD Oumar Gunter Work Phone: [phone]09-17-2020influenza virus vaccine, split virus (incl. purified surface antigen)Oumar Gunter Other [employer] Other 09907387-61-9615kzhdrqdpk virus vaccine, unspecified formulationMD Oumar Gunter Work Phone: [facility]10-17-2019influenza virus vaccine, split virus (incl. purified surface antigen)Oumar Gunter Other [employer] Other 10383284-21-6807wrmabymia virus vaccine, unspecified formulationMD Oumar Gunter Work Phone: [facility]09-29-2010zoster vaccine, [employer] Work Phone: [facility] Payers DatePayer CategoryPayerPolicy [id number] MEDICARE HUMANA MEDICARE PPO [id number] 2021-Present [phone] [address] [address] [place] [address] [id number] 1960Medicare [id number]-pay [id number] 2.0.1.020338.3.57[id number] 2.0.1.825374.3.57[id number] 2.0.1.600451.3.57[id number] 2.0.1.810849.3.57[id number] 2.840.1.794482.3.57[id number] 2.0.1.462035.3.57[id number] 2.840.1.7[id number] 2.840.1.099489.3.579.2.531 Social History DateTypeDetailFacilityStart: 12-25-2010 End: 34-21-9026Pyqqtin smoking status NHISNever smoked tobaccoUniversity Hospitals Ahuja Medical Center Start: 31-25-5508Mdurrjr use and exposureSmokeless tobacco non-userSelect [facility] Shawtart: 07-30-2021 End: 59-39-9175Xjztkbz intakeCurrent drinker of alcohol (finding)[facility]: 06-38-7247Jtckfhi SDOH Alcohol Commentvery rareUniversity Hospitals Ahuja Medical Center Start: 62-93-9028Kov Assigned At [facility] HospitalFeFormerly [facility] ClinicStart: 06-29-2021 End: 26-13-5494Qnmydmhb to SARS-CoV-2 (event)Not sureSelect Medical [facility], Edwin Shawex Assigned At [facility]erex Assigned At [facility] Other Start: 05-09-2024 End: 68-26-5191MtkIlwerh (finding)[facility] Medical Equipment Procedure CodeEquipment CodeEquipment Original TextEquipment IdentifierDates Arthroplasty, knee, total, minimally invasiveOrthopaedic cement, non-medicated ()[id number] FDAStart: 19-31-3763Wvkiwhvylfgz, knee, total, minimally invasiveUncoated knee femur prosthesis ()[id number] FDAStart: 40-19-4682Howpqolrfhbq, knee, total, minimally invasiveTibial insert()[id number] FDAStart: 42-41-4709Rtgtmmizmlus, knee, total, minimally invasivePolyethylene patella prosthesis()[id number] FDAStart: 07-21-2021 Arthroplasty, knee, total, minimally invasiveKnee stem ()[id number] FDAStart: 91-42-3469Uuncgqxolgrr, knee, total, minimally invasiveUncoated knee tibia prosthesis, metallic ()[id number] FDAStart: 04-60-0412Bwfvur Nrstm Pls Imp Chrg Kt - [id number]: 10-27-6485Pyc-Of-A-Kind Implant - [id number]: 61-81-4368Ypzetqq on above:Description: LINEAR ST 70CM 8 CONTACT LEAD HAUIpz-Zz-V-Kind Implant - [id number]: 70-58-9290Jfidhtc on above:Description: CLIK ANCHORKit Stim 50cm Gary 8 Cntct Ld - [id number]: 72-58-0503Kfpr Iol 0d +13 Tony Uv Abs - [id number]_impStart: 89-72-1684Lyqzmkz on above:Description: -0.39Lens Iol 0d +13 Tony Uv Abs - [id number]: 38-34-6388Cuiifdy on above: Description: -0.48 Goals DatePatient GoalDesired Activity/State Clinical Notes 02-05-2021 to 06-27-2024 Note Date & LofjPwaiHnxmljms11-05-2099 Evaluation note* Diagnosis Onset Date Resolution Status Admit Date Arthritis of carpometacarpal (CMC) joint of left thumb acuteApril 2024 1:57pmArthritis of smpocjpl-auisvxteo-qvsteqqjg joint of left handacuteApril 2024 1:57pmLeft hand painacuteApril 2024 1:57pm ConfusionacuteApril 2024 10:55amCoughacuteApril 2024 10:55amFall acuteApril 2024 10:55amRib fractureacuteApril 2024 10:55amCHF (congestive heart failure)acuteMay 2024 1:31pmEdemaacuteMay 2024 1:31pm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acuteJune 2024 10:02am [facility] Work Phone: 1(432) 208-875903-28-2025 Evaluation note* Diagnosis Onset Date Resolution Status Admit Date 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 acuteMarch 2024 9:46amArthritis of carpometacarpal (CMC) joint of left thumbacuteApril 2024 1:57pmArthritis of jmwclsyd-ctpkrdcdn-uzzntzodt joint of left handacuteApril 2024 1:57pmLeft hand painacuteApril 2024 1:57pm ConfusionacuteApril 2024 10:55amCoughacuteApril 2024 10:55amFall acuteApril 2024 10:55amRib fractureacuteApril 2024 10:55amCHF (congestive heart failure)acuteMay 2024 1:31pmEdemaacuteMay 2024 1:31pm [facility] Work Phone: 1(188) 779-877601-29-2025 Evaluation note* Diagnosis Onset Date Resolution Status Admit Date 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 acuteJanuary 2024 9:25amConstipationacuteJanuary 2024 9:25am Encounter for palliative careacuteJanuary 2024 9:25am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acuteMarch 2024 9:46amNeuropathic pain, leg, bilateral acuteMarch 2024 9:46am [facility] Work Phone: 1(154) 112-204201-29-2025 Evaluation note* Diagnosis Onset Date Resolution Status Admit Date 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 acuteJanuary 2024 9:25amConstipationacuteJanuary 2024 9:25am Encounter for palliative careacuteJanuary 2024 9:25am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acuteMarch 2024 9:46amArthritis of carpometacarpal (CMC) joint of left thumbacuteApril 2024 1:57pmArthritis of tusagdmg-akgqpbdov-yalebdrmg joint of left handacuteApril 2024 1:57pmLeft hand painacuteApril 2024 1:57pm [facility] Work Phone: 1(441) 126-654101-29-2025 Evaluation note* Diagnosis Onset Date Resolution Status Admit Date 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 acuteJanuary 2024 9:25amConstipationacuteJanuary 2024 9:25am Encounter for palliative careacuteJanuary 2024 9:25am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acuteMarch 2024 9:46amArthritis of carpometacarpal (CMC) joint of left thumbacuteApril 2024 1:57pmArthritis of snwipqoc-pywsijpsh-tdrngnwvr joint of left handacuteApril 2024 1:57pmLeft hand painacuteApril 2024 1:57pmConfusionacuteApril 2024 10:55amCough acuteApril 2024 10:55amFallacuteApril 2024 10:55amRib fractureacute Catherine 2024 10:55am [facility] Work Phone: 1(513) 508-758712-09-2024 Evaluation note* Diagnosis Onset Date Resolution Status Admit Date Chronic thoracic back pain acuteDecember 2023 11:41amLeft wrist painacuteDecember 2023 11:41am Medicare annual wellness visit, subsequentacuteDecember 2023 11:41am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acuteJanuary 2024 9:25amConstipationacute Imelda 2024 9:25amEncounter for palliative careacuteJanuary 2024 9:25am [facility] Work Phone: 1(471) 718-264802-06-2024 Evaluation note* Encounter Date Diagnosis Assessment Notes Treatment Notes Treatment Clinical Notes Apr, Neuropathic pain, leg, bilateral (ICD-10 - G57.93) [employer] Other 12-13-2023 Evaluation note* Encounter Date Diagnosis Assessment Notes Treatment Notes Treatment Clinical Notes Feb, Neuropathic pain, leg, bilateral (ICD-10 - G57.93) Reviewed [place]. Denies over-sedation w present meds. States has narcan at the house. Understands controlled substances are very concerning. Discussed paperwork from her insurance. She is controlled on present meds and doses for chronic neuropathic pain. Feb,ulmonary HTN (ICD-10 - I27.20)Reviewed notes from Cardiology - followup in 1 yr. [employer] Other 12-12-2023 Evaluation note* Encounter Date Diagnosis Assessment Notes Treatment Notes Treatment Clinical Notes Feb, Pulmonary HTN (ICD-10 - I27.20) Ms Tang is a 77yoF with PMH of hypertension, osteoarthritis, repots hx of CHF in 2002 to due to stress, hx of L breast cancer s/p bilateral mastectomy in 2009-no chemo or radiation. Referred Juan Jose Gunter for abnormal echocardiogram. Echo preformed at [facility] 12/29/2022 showed EF 55-60% with normal [...] daily. - Follow up in 1 year Feb,Shortness of breath (ICD-10 - R06.02) Feb,iaphoresis (ICD-10 - R61) Feb,Moderate COPD (chronic obstructive pulmonary disease) (ICD-10 - J44.9) [employer] Other 12-06-2023 Evaluation note* Encounter Date Diagnosis Assessment Notes Treatment Notes Treatment Clinical Notes Feb, Neuropathic pain, leg, bilateral (ICD-10 - G57.93) [employer] Other 11-20-2023 Evaluation note* Encounter Date Diagnosis Assessment Notes Treatment Notes Treatment Clinical Notes Jan, Pulmonary HTN (ICD-10 - I27.20) [employer] Other 11-13-2023 Evaluation note* Encounter Date Diagnosis Assessment Notes Treatment Notes Treatment Clinical Notes Jan, Pulmonary HTN (ICD-10 - I27.20) Ms Tang is a 77yoF with PMH of hypertension, osteoarthritis, repots hx of CHF in 2002 to due to stress, hx of L breast cancer s/p bilateral mastectomy in 2009-no chemo or radiation. Referred byDr Oumar Gunter for abnormal echocardiogram. Echo preformed at [facility] 12/29/2022 showed EF 55-60% with normal [...] is negative, can consider RHC in future. Jan,Shortness of breath (ICD-10 - R06.02) Jan,iaphoresis (ICD-10 - R61) [employer] Other 11-06-2023 Evaluation note* Encounter Date Diagnosis Assessment Notes Treatment Notes Treatment Clinical Notes Jan, Neuropathic pain, leg, bilateral (ICD-10 - G57.93) [employer] Other 10-05-2023 Evaluation note* Encounter Date Diagnosis Assessment Notes Treatment Notes Treatment Clinical Notes Dec, Acute thoracic back pain, unspecified back pain laterality (ICD-10 - M54.6) [employer] Other 07-06-2023 Evaluation note* Encounter Date Diagnosis Assessment Notes Treatment Notes Treatment Clinical Notes Sep, Acute thoracic back pain, unspecified back pain laterality (ICD-10 - M54.6) [employer] Other 06-13-2023 Evaluation note* Encounter Date Diagnosis Assessment Notes Treatment Notes Treatment Clinical Notes Aug, OAB (overactive bladder) (ICD-10 - N32.81) States med does help - requests refill Aug,Word finding difficulty (ICD-10 - R47.89)Agrees to MRI and referral to Neurology for further recommendations. Discussed area of brain that controls our speech and relates to words. Pt expresses understanding.. Aug,eripheral neuropathic pain (ICD-10 - M79.2)Requests refill. Aug,ain in thoracic spine (ICD-10 - M54.6)Reviewed [place]AR[place] report. States that present medications do control her symptoms. 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 The Medrol Dosepak seem to help her significantly with the inflammation. She can continue activities as tolerated and continue working with physical therapy as recommended. Follow-up in 4 weeks for repeat examination and long standing x-rays. 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 We will get her on a Medrol Dosepak to try and help with some of this inflammation I think that is going on in that knee. I will see her back in 2 weeks just to recheck to make sure she is continuing to improve. Patient may continue activities as tolerated. Continue PT as recommended. Continue taking zusi-yym-eqhgost anti-inflammatories as needed for assistance with swelling and pain associated with the operative extremity. Follow-up in 2 for a recheck and then 4 weeks for repeat examination and long standing x-rays. [employer] Other 05-25-2022 NoteHNO ID: [id number] Author: Mary Pacheco OD Service: ? 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 Zipline removed. Steri-Strips [...] as previously instructed. This includes wearing their TANNER hose on the operative extremity for another two weeks. Follow-up in 4 weeks for repeat examination and 3 view x-rays of the left knee. [employer] Other 05-12-2022 NoteHNO ID: [id number] Author: Mary Pacheco OD Service: ? Author Type: AQUATICS INSTRUCTOR Type: Progress Notes Filed: 08/07/2021 9:08 AM [...] scheduled I have interviewed and examined Catherine Tang. I have confirmed and edited as necessary the chief complaint, history of present illness, past medical history, medications, family history, social history, review of systems, and exam findings as obtained by others. I agree with the assessment and plan as stated above. Mary Anastacia WhiteJunior, OD August 07, 2021 8:59 [facility]05-12-2022 History of Present illness Narrative* Mary Anastacia Pacheco, OD - 08/07/2021 8:58 AM EDT [...] scheduled I have interviewed and examined Catherine Tang. I have confirmed and edited as necessary the chief complaint, history of present illness, past medical history, medications, family history, social history, review of systems, and exam findings as obtained by others. I agree with the assessment and plan as stated above. Mary Anastacia WhiteJunior, OD August 07, 2021 8:59 AM documented in this encounterUniversity Hospitals Ahuja Medical Center05-04-2022 NoteHNO ID: [id number] Author: PARK Cedeño Service: ? Author Type: Provider Relations Representative Type: Progress Notes Filed: 07/30/2021 10:04 AM Note Text: CONFIRM AIM PLANO BOTH EYES. IQ IOL PATIENT AWARE THAT HE WILL NEED GLASSES FOR ALL DISTANCES. [facility]ARK CedeñoVan [facility]05-[facility] History of Present illness Narrative* PARK Cedeño - 07/30/2021 10:00 AM EDT CONFIRM AIM PLANO BOTH EYES. IQ IOL PATIENT AWARE THAT HE WILL NEED GLASSES FOR ALL DISTANCES. PARK Cedeño documented in this encounterUniversity Hospitals Ahuja Medical Center05-04-2022 Instructions* Patient Instructions* Shikhagary Kate APRN.BREAD DISTRIBUTOR - 07/30/2021 9:23 AM EDT PATIENT PREOPERATIVE INSTRUCTIONS Jennifer Infante V, MD has scheduled you for your procedure at this surgery center: [facility]: [phone] --[address] [facility] [address] [address]. Please read below carefully for your personalized [...] Advance Directive, please fax a copy to [phone] or email to for it to be [...] day. Shikha Kate APRN.CNP documented in this encounterUniversity Hospitals Ahuja Medical [facility] History and physical note * Shikha Kate APRN.CNP - 07/30/2021 8:51 AM EDT HISTORY AND PHYSICAL EXAMINATION SERVICE DATE: 07/30/2021 SERVICE TIME: 8:51 AM PRIMARY CARE PHYSICIAN: Oumar Gunter MD REASON FOR VISIT: Catherine Tang is a 76 year old female who is scheduled for Bilateral Cataracts at the request of Dr. Jennifer Infante V for consultation. My final recommendation will [...] with implants PAST SURGICAL HISTORY OF [facility] ([employer]) TOTAL KNEE REPLACEMENT Left FAMILY HISTORY [...] fevers. Neuro: No history of TIA's, stroke, SECURITIES TRADER tumor, impaired sensorium, hemiplegia, paraplegia or quadraplegia. No neurological symptoms or problems. Respiratory: No history of current cough or dyspnea, or pneumonia in the past 6 weeks. No history of respiratory/pulmonary symptoms or problems. Cardiovascular: No history of HTN requiring medication, no history of angina, CHF, DE, cardiac surgery or stents. Denies rest pain, gangrene or revascularization/amputation for PVD. No history of cardiovascular symptoms or problems. +HLD GI: No history of GI symptoms or problems. No history of esophageal varices, recent ascites, or ETOH greater than 2 drinks per day. : No history of dysuria, frequency or incontinence,, stones or chronic kidney disease +urgency ENVIRONMENTAL SOLUTIONS ENGINEER: Negative for abnormal vaginal bleeding, abnormal vaginal [...] SIGNATURE: Shikha Kate APRN.CNP PATIENT NAME: Catherine Tang DATE: July 30, 2021 TIME: 8:51 AM documented in this encounterUniversity [facility] Evaluation note* Encounter Date Diagnosis Assessment Notes Treatment Notes Treatment Clinical Notes Jun, Other Prolonged Services 1. H and P date: 07/04/2021 2. Diagnosis: Left knee primary osteoarthritis 3. Counseling: Counseling and education was provided at the patient's history and physical 4. Coordination of care: The patient was discussed at today's total joints meeting with anesthesia,OR staff, and implant reps in an effort to coordinate the patient's care during the perioperative period. The anesthesiologist was involved in discussions regarding the patient's pain management suchas regional blocks, anesthesia plans the day of surgery such as general versus spinal, as well as afinal review of lab work to ensure the patient could proceed with surgery safely. The medical reimbursement manager was vital for surgery timing and scheduling purposes. The implant rep was also available for necessarydiscussions regarding preoperative templates that were created on preoperative x-rays to ensure the appropriate implants and sizes of implants would be available the day of surgery. The patient's discharge plan was also discussed and the final decision was confirmed. 5. Medication Changes: None 6. Lab Tests: The patient's screening tests including albumin levels, vitamin D levels, hemoglobin,hemoglobin A1c, cotinine serum level, and MRSA nasal [...] necessary, other specialists, was reviewed. Any recommendations madeby these care providers were taken into consideration for the patient's perioperative and postoperative treatment plans. Prolonged services time spent: 32 minutes [employer] Other 04-14-2022 Evaluation note* Encounter Date Diagnosis Assessment Notes Treatment Notes Treatment Clinical Notes Jun, Age-related osteopor osis without current pathological fracture (ICD-10 - M81.0) [employer] Other 04-08-2022 Evaluation note* Encounter Date Diagnosis Assessment Notes Treatment Notes Treatment Clinical Notes Jun, Primary osteoarthritis of left k nee (ICD-10 - M17.12) Jun,reop examination (ICD-10 - Z01.818) Jun,ther1. Left TKA Home Medications - DVT prophylaxis: Aspirin - NSAID: Celebrex - Disposition: Same-day discharge-patient lives at home with her . We will need to check on her in phase 2 recovery for pain control given her high doses of oxycodone for baseline pain control. Joints Meeting Checklist - Pharmacy: [facility] to bed - Approach/Technique: ALICIA - [...] to include: activity modification, physical therapy, oral anti-inflammatories, and intra- articular steroid injections. We will moveforward with the definitive treatment option and schedule the patient for the above mentioned procedure. The risks involved with surgery and postoperative complications were discussed in relation to the patient's non-modifiable risk factors including but not limited to the following: Hypertension Hypercholesterolemia Neuropathy All questions were answered after discussing [...] elected to proceed with the above surgery. [employer] Other 03-02-2022 Evaluation note* Encounter Date Diagnosis Assessment Notes Treatment Notes Treatment Clinical Notes May, Primary osteoarthritis of left k davis (ICD-10 - M17.12) The patient has demonstrated all indications for proceeding with total knee replacement. The patient is experiencing severe disabling knee pain which is affecting daily life and ability to ambulate. Conservative means of treatment including NSAIDS and other medication, intra-articulur injections, as well as gentle exercise have not been effective in relieving symptoms or are not indicated at thistime It is now reasonable to proceed with total knee replacement. May,ge-related osteoporosis without current pathological fracture (ICD- 10 - M81.0) May,n long winder tender drug therapy (ICD-10 - Z79.899) May,reop examination (ICD-10 - Z01.818) May,ther 1. Left TKA-in regards to timing, I think that she would still be okay from a rehab standpoint if we got her total knee taken care of before her cataract surgery. However, as I explained to the patient if any of her lab work is off or she needs further preoperative optimization, we may need to pushback her surgery on her knee until after [...] but not limited to the following: Hypertension Hypercholesterolemia Neuropathy All questions were answered after discussing [...] all conservative treatment options to include: oral anti-inflammatories, intra-articular steroid injections, physical therapy, and assistive devices. We will move forward with the definitive treatment option and schedule the patient for the above mentioned procedureafter we have reviewed screening labs and clearances. Patient understands abnormal screening labs or absent clearances could delay their surgery. [employer] Other 03-01-2022 NoteHNO ID: [id number] Author: Jennifer Infante V, MD Service: ? Author Type: Physician Type: Progress Notes Filed: 05/27/2021 1:01 PM Note Text: The documentation for this note was completed by PARK De La Vega acting as a scribe for Jennifer INFANTE MD. 05/27/2021 12:53 PM. ASSESSMENT / PLAN: 1. Combined cataract, both eyes - Offered cataract extraction by phacoemulsification and intraocular lens implant with Dr. Infante, both eyes, left eye first - Aim: [place] Both eyes [monocular precautions following Cataract extraction] [...] and surgery - Comanage with Dr Dang; [facility] POD #1 Cataract Presurgical Documentation Cataract: [...] Eye High BVCA 20/300 Visual Function: Catherine Tang states that the decline in vision from the cataract impedes the ability to drive as well as other activities of daily living. Catherine Tang has confirmed that she is no longer [...] with lens implantation were discussed with Catherine Tang in detail. she appeared to understand and asked that I proceed with plans for surgery. Patient acknowledges possible need for glasses after procedure. Informed consent form signed by physician and patient. Literature regarding cataract and cataract extraction by phacoemulsification offered. Return for preadmission testing, biometry AND intraocular lens calculations prior to surgery. The patient was offered a surgery/procedure at a [facility] facility. The surgeon/proceduralist and patient have discussed [...] others. I have seen and examined Catherine Tang. I also have reviewed and agree with the assessment and plan as stated above and agree with all of its relevant components. Jennifer INFANTE MD May 27, 2021 12:53 [facility]03-01-2022 NoteHNO ID: [id number] Author: Scout Gayle OD Service: ? Author Type: AQUATICS INSTRUCTOR Type: Progress Notes Filed: 05/27/2021 1:02 PM Note Text: ASSESSMENT/PLAN: 1. Combined forms of age-related cataract of both eyes - ICD9: 366.19, ICD10: H25.813 (primary diagnosis) Dr Jennifer Infante Cataract evaluation 2. Glaucoma suspect of both [...] Scout Gayle, OD May 27, 2021 12:15 [facility]11-10-2021 NotePROCEDURE: XR KNEE LT 3V HISTORY: Pain [...] Electronically authenticated by: CIARRA [place] Date: 2021-02-05 16:48[facility] note* Diagnosis Combined forms of age-related cataract of both eyes Other and combined forms of senile cataract Combined forms of age-related cataract of both eyes Other and combined forms of senile cataract Combined forms of age-related cataract of both eyes Other and combined forms of senile cataract documented in this encounter [facility] note* Diagnosis Pre-op evaluation- Primary Preoperative examination, unspecified Cataract of both eyes, unspecified cataract type Other hyperlipidemia Complex regional pain syndrome type 1, affecting unspecified site Combined forms of age-related cataract of both eyes Other and combined forms of senile cataract Combined forms of age-related cataract of both eyes Other and combined forms of senile cataract documented in this encounter [facility] note* Diagnosis S/P cataract extraction and insertion of intraocular lens, left- Primary 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 Other and combined forms of senile cataract documented in this encounter [facility] note* Diagnosis S/P cataract extraction and insertion of intraocular lens, left- Primary 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 documented in this encounter [facility] noteNo InformationNort Runner Other Evaluation noteNo assessment information available [facility] Work Phone: Evaluation note* Diagnosis Onset Date Resolution Status Acute kidney injury acuteAcute metabolic encephalopathyacuteChronic disease anemiaacuteMultifocal pneumoniaacuteSepsisacute [facility] Work Phone: Evaluation note* Diagnosis Onset Date Resolution Status Admit Date 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 acuteSeptember 2024 9:53am [facility] Work Phone: History general Narrative - Reported* Type Description Date Medical History hypertension Medical HistoryhypercholesterolemiaMedical HistoryneuropathyMedical History macular degenerationSurgical HistoryC [id number] Historybilateral [id number] [employer] Other [place] general Narrative - Reported* Type Description Date Medical History hypertension Medical HistoryhypercholesterolemiaMedical HistoryneuropathyMedical History macular degenerationSurgical HistoryC [id number] Historybilateral [id number] HistoryLTKA [employer] Other [place] general Narrative - Reported* Type Description Date Medical History hypertension Medical HistoryhypercholesterolemiaMedical HistoryneuropathyMedical History macular degenerationSurgical HistoryC [id number] Historybilateral [id number] HistoryLTKAHospitalization Historysee surgical history [employer] Other Reason for referral (narrative)No reason for referral information availableKind[facility] Work Phone: Advance Directives TypeDate RecordedPatient RepresentativeExplanationAdvance Directive(s)07/08/2021 9:01 AMAdvance Directive(s)07/08/2021 10:19 AMTypeDate RecordedPatient RepresentativeExplanationAdvance Directive(s)08/06/2021 9:07 AMAdvance Directive(s)08/06/2021 9:08 AMAdvance Directive(s)07/08/2021 9:01 AMAdvance Directive(s)07/08/2021 10:19 AMTypeDate RecordedPatient RepresentativeExplanation Advance Directive(s)08/20/2021 9:02 AMAdvance Directive(s)08/06/2021 9:07 AM Advance Directive(s)08/06/2021 9:08 AMAdvance Directive(s)07/08/2021 9:01 AM Advance Directive(s)07/08/2021 10:19 AM Advance Directive Response Recorded Date/ Time Advance Directives No March 04, 2021 8:20am Advance Directive Response Recorded Date/ Time Advance Directives No March 04, 2021 7:20am Medications Administered Section Medication OrderMAR ActionAction DateDoseRateSite fluorescein-benoxinate 0.25-0.4 % 1 Drop (FLURESS) 1 Drop, BOTH EYES, DIRECTED, Starting on Nini 08/07/21 at 0900, Until Nini 08/07/21 at 2058, Administer for applanation tonometry. In the event of a Fluress shortage, administer Forest-Fluor 1 drop intoboth eyes as directed for applanation tonometry Given08/07/2021 9:00 AM EDT1 Drop Summary Purpose Family History Relationship Condition Age at Onset Recorded Date/T clifford sister Malignant neoplasm of breast Unknown family memberMalignant neoplasm of breastUnknownNot SpecifiedAsthmaUnknownfather Myocardial infarctionUnknownbrotherDiabetes mellitusUnknown Relationship Condition Age at Onset Recorded Date/T clifford sister Malignant neoplasm of breast Unknown family memberMalignant neoplasm of breastUnknownNot SpecifiedAsthmaUnknownfather Myocardial infarctionUnknownbrotherDiabetes mellitusUnknownbrotherHeart disease UnknowndaughterMalignant neoplasm of breastUnknownfatherDeceasedUnknownHeart diseaseUnknownNot SpecifiedDeceasedUnknownMalignant neoplasm of breastUnknown Relationship Condition Age at Onset Recorded Date/T clifford sister Malignant neoplasm of breast Unknown family memberMalignant neoplasm of breastUnknownmotherAsthmaUnknownfather Myocardial infarctionUnknownbrotherDiabetes mellitusUnknownbrotherHeart disease UnknowndaughterMalignant neoplasm of breastUnknownfatherDeceasedUnknownHeart diseaseUnknownmotherDeceasedUnknownMalignant neoplasm of breastUnknown Chief Complaint and Reason for Visit Chief Complaint Knee Pain M17.12 Chief Complaint r06.02 r61 Chief Complaint r06.02 r61 R06.02 R61 I27.20 Chief Complaint Amb Documentation Amb Documentation Hospital Follow up UnknownReason for VisitAcute kidney injury Acute metabolic encephalopathy Chronic disease anemia Multifocal pneumonia Sepsis Chief Complaint Admit Date Wellness March 06, 2024 1 1:41am Reason for Visit Admit Date Chronic thoracic back pain March 06, 2024 11:41am Left wrist pain March 06, 2024 1 1:41am Medicare annual wellness visit, subseque nt March 06, 2024 11:41am 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 Ezequiel 2024 9:25am Constipation April 26, 2024 9 :25am Encounter for palliative care April 262024 9:25am Chief Complaint Admit Date Patient here for a 2 month f/u May 9:46am Reason for Visit Admit Date 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 Ezequiel 2024 9:25am Constipation April 26, 2024 9 :25am Encounter for palliative care April 262024 9:25am 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 Pancho 2024 9:46am Neuropathic pain, leg, bilateral May 282024 9:46am Chief Complaint Admit Date Patient here for a 2 month f/u May 9:46am M25.532 - Pain in left wrist June 27, 2024 9:48am CONSULT DR. 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 LYRIC COY WRIST PAIN, NX Apri l 2024 1:57pm Amb Documentation July 18, 2024 1:2 7pm [facility] ER f/u fall July 25, 2024 10: 55am Swollen Hands & Feet August 01, 2024 1:31p m Reason for Visit Admit Date 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 [facility] 2024 9:46am Arthritis of carpometacarpal (CMC) joint of left thumb June 27, 2024 1:57pm Arthritis of pstpzsab-nmwxqsizc-urqwkarp d joint of left hand June 27, 2024 1:57pm Left hand pain June 27, 2024 1:57 pm Confusion July 25, 2024 10: 55am Cough July 25, 2024 10: 55am Fall July 25, 2024 10: 55am Rib fracture July 25, 2024 10: 55am CHF (congestive heart failure) August 01, 2024 1:31pm Edema August 01, 2024 1:31pm Chief Complaint Admit Date M25.532 - Pain in left wrist June 27, 2024 9:48am CONSULT DR. GUNTER LT WRIST PAIN, NX Apri l 2024 1:57pm Amb Documentation July 18, 2024 1:2 7pm [facility] ER f/u fall July 25, 2024 10: 55am Swollen Hands & Feet August 01, 2024 1:31p m Patient here for a 3 month f/u August 10:02am Reason for Visit Admit Date Arthritis of carpometacarpal (CMC) joint of left thumb June 27, 2024 1:57pm Arthritis of mugstejj-eldokfsjz-ozorvdwk d joint of left hand June 27, 2024 1:57pm Left hand pain June 27, 2024 1:57 pm Confusion July 25, 2024 10: 55am Cough July 25, 2024 10: 55am Fall July 25, 2024 10: 55am Rib fracture July 25, 2024 10: 55am CHF (congestive heart failure) August 01, 2024 1:31pm Edema August 01, 2024 1:31pm 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 September 22, 2024 10:02am Chief Complaint Admit Date Patient here for a 3 month f/u December 22, 2024 9:53am Reason for Visit Admit Date 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 Nov 9:53am Reason for Referral Reason *03/16 Dr Reed in [place] Diagnosis 1 Moderate COPD (chron ic obstructive pulmonary disease) (J44.9) Referral Organization [facility] Cardiology Referring Provider First Name Referring Provider Last Name Myra Referring Provider Specialty Cardiovascu lar Disease Referred Organization Unknown Facility Referred Provider Larry Reed Referred Provider Specialty Pulmonary Di seases Referral Priority Routine General Notes Macy Mccarthy 05:34:06 PM >received today, attachments made, referral faxed Reason *09/22 [place] office - word finding issues. MRI pending. 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) Referral Organization [facility] Geronimo liriano Referring Provider First Name Oumar Referring Provider Last Name Lyric Referring Provider Specialty Family [facility] cine Referred Organization [facility] Referred Provider Tessa Espinal Referred Address [address] [place] [phone] Referred Provider Specialty Neurology Referral Priority Routine [...] or prosecute any alcohol or drug abuse patient.[facility] Medical CenterIn the event this information is protected by the Federal Confidentiality of Alcohol and Drug Abuse Patient Records regulations: The Federal rules restrict any use of the information to criminally investigate or prosecute any alcohol or drug abuse patient.[facility] Medical CenterIn the event this information is protected by the Federal Confidentiality of Alcohol and Drug Abuse Patient Records regulations: The Federal rules restrict any use of the information to criminally investigate or prosecute any alcohol or drug abuse patient.[facility] CenterIn the event this information is protected by the Federal Confidentiality of Alcohol and Drug Abuse Patient Records regulations: The Federal rules restrict any use of the information to criminally investigate or prosecute any alcohol or drug abuse patient.[facility] Reason for Visit (unrecogniz ed section and content) ReasonCommentsPre-Op ExamReasonCommentsAnesthesia ConsultReasonCommentsPost-op (Ophthalmology) Left EyeOne day s/p cataract surgery with IOLReasonCommentsPost- op (Ophthalmology) Left Eyes/p Phaco + PC IOL OS [id number] / ProceduresReferred By ContactReferred To ContactASC [facility] Diagnoses Combined forms of age-related cataract of both eyes Procedures XCAPSL CTRC RMVL INSJ IO LENS PROSTH W/O ECP OPH BMTRY PRTL COHER INTRFRMTRY IO LENS PWR LEO PHACOEMULSIFICATION CATARACT IMPLANT INTRAOCULAR LENS W/O ENDOSCOPIC CYCLOPHOTOCOAGULATION OPHTHALMIC BIOMETRY BY PARTIAL COHERENCE INTERFEROMETRY W/INTRAOCULAR LENS POWER CALCULATION [facility] [address] [place] [address] Referral IDStatusReasonStart DateExpiration DateVisits RequestedVisits [id number] Care Teams (unrecognized sec tion and content) [...] Care Provider Active Start: May 27, 2023 KOKO CrenshawAAtkalina ProviderActiveStart: May 27, 2023 Team Status: Active Member [...] Provider Active Start: May 31, 2023 Merline Ellis , LPNActiveStart: May 31, 2023 Team Status: Inactive Member [...] Active Start: June 15, 2023 End: June 14larry Escobar MDAttending ProviderActiveStart: June 15, 2023 End: June 15, 2023 Team Status: Inactive Member Role Status Dates Oumar Gunter MD Primary Care Provider Active Miguel Spring II, MDAttending ProviderActiveTeam MemberRelationshipSpecialty Start [place] [address] [place], [place] [id number] PCP - GeneralFamily Practice12/25/10Team MemberRelationshipSpecialtyStart [place] [address] [place], [place] [phone] PCP - GeneralFamily Practice12/25/10Team MemberRelationshipSpecialtyStart [place] [address] [place] [address], [place] [phone] PCP - GeneralFamily Practice12/25/10Team MemberRelationshipSpecialtyStart [place] [address] [place] [address], [place] [phone] PCP - GeneralFamily Practice12/25/10 Team Status: Inactive Member Role Status Dates Oumar Gunter MD Primary Care Provider Active Linda Renteria MDAttending ProviderActive Team Status: Inactive Member Role Status Dates Oumar Gunter MD Primary Care Provider Active Godfrey Guo, Referring ProviderActive Team Status: Active Member Role Status Dates Linda Renteria MD Cleaners Active Demetrio RosenthalC[facility] Clinic [facility] ProviderActive Team Status: Active Member Role Status Nomi Gunter MD Primary Care Provider Active Start: March 01, 2024 Bernadette Messinaending ProviderActiveStart: March 01, 2024 Team Status: Inactive Member Role Status Nomi Gunter MD Primary Care Provide r, Attending Provider Active Start: March 06, 2024 End: March 06, 2024 Team Status: Inactive Member Role Status Nomi Gunter MD Primary Care Provider Active Start: April 26, 2024 End: April 26, 2024Jose Francisco Riley ProviderActiveStart: April 26, 2024 End: April 26, 2024 Team Status: Inactive Member Role Status oNmi Gunter MD Primary Care Provider Active Start: May 05, 2024 End: May 05, 2024Jose Francisco Riley ProviderActiveStart: May 05, 2024 End: May 05, 2024 Team Status: Inactive Member Role Status Nomi Gutner MD Primary Care Provider Active Start: May 09, 2024 End: May 09, 2024Jose Francisco Riley ProviderActiveStart: May 09, 2024 End: May 09, 2024 Team Status: Inactive Member Role Status Nomi Gunter MD Primary Care Provider Active Start: June 23, 2024 End: June 23, 2024Jose Francisco Riley ProviderActiveStart: June 23, 2024 End: June 23, 2024 Team Status: Active Member Role Status Nomi Gunter MD Primary Care Provider Active Start: June 27, 2024 Godfrey Bray ProviderActiveStart: June 27, 2024 Team Status: Inactive Member Role Status Nomi Gunter MD Primary Care Provider Active Start: June 27, 2024 End: June 27Bernadette Wadsworthending ProviderActiveStart: June 27, 2024 End: June 27, 2024 Team Status: Active Member Role Status Dates Oumar Gunter MD Primary Care Provider Active Start: July 18, 2024 Nina Paulino CMAAttending ProviderActiveStart: July 18, 2024 Team Status: Inactive Member [...] Active Start: July 27, 2024 Raghav Ferreira , MDAttending ProviderActiveStart: July 27, 2024 Team Status: Active Member Role Status Dates Oumar Gunter MD Primary Care Provider Active Start: July 28, 2024 Pancho Buckner MDAttending ProviderActiveStart: July 28, 2024 Team Status: Inactive Member Role Status Dates Oumar Gunter MD Primary Care Provide r, Attending Provider Active Start: August 01, 2024 End: August 01, 2024 Team Status: Inactive Member Role Status Dates Oumar Gunter MD Primary Care Provider Active Start: July 25, 2024 End: July 25, 2024Oumar Gunter MDAttending ProviderActiveStart: July 25, 2024 End: July 25, 2024 Team Status: Active Member Role Status Dates Oumar Gunter MD Primary Care Provider Active Start: July 26, 2024 Oumar Gunter MDAttending ProviderActiveStart: July 26, 2024 Team Status: Inactive Member Role Status Dates Oumar Gunter MD Primary Care Provider Active Start: August 01, 2024 End: August 01, 2024Oumar Gunter MDAttending ProviderActiveStart: August 01, 2024 End: August 01, 2024 Team Status: Active Member Role Status Dates Oumar Gunter MD Primary Care Provider Active Start: August 11, 2024 Fidelina Escobar MDAttending ProviderActiveStart: August 11, 2024 Team Status: Inactive Member Role Status Dates Oumar Gunter MD Primary Care Provider Active Start: September 22, 2024 End: September 22, 2024Jose Francisco Riley ProviderActiveStart: September 22, 2024 End: September 22, 2024 Team Status: Inactive Member Role Status Dates Oumar Gunter MD Primary Care Provider Active Start: December 22, 2024 End: December 22, 2024Jose Francisco Riley ProviderActiveStart: December 22, 2024 End: December 22, 2024 INFORMATION SOURCE (unrecogn ized section and content) DATE CREATED AUTHOR 08/21/2021 [facility] DATE CREATED AUTHOR AUTHOR'S ORGANIZ ATION 02/03/2022 [facility] DATE CREATED AUTHOR AUTHOR'S ORGANIZ ATION 06/28/2024 [facility] Goals (unrecognized section and content) Goals [...] BE BASED ON THE PRIMARY CLINICAL RECORDS. [employer] provides no warranty or guarantee of the accuracy or completeness of information in this document.
--- NOTE | 2025-01-25 15:09 | XR_ITS ---
The [address] [address] Patient Name: DARLENE TANG MRN: [id number] date: 1945 Sex: F Assigned Patient Location: [facility] Current Patient Location: [facility] Accession/Order Number: [id number] Exam Date: 01/25/2025 15:15 Report Date: 01/25/2025 22:41 At the request of: OUMAR GUNTER MD Procedure: XR chest 2V PA AND LATERAL CHEST: CLINICAL HISTORY: Cough, Moderate Chronic Obstructive Pulmonary Disease COMPARISON: 07/25/2024 FINDINGS: Stable cardiomediastinal swelling. Right basilar pleural-parenchymal opacity with likely small effusion and associated atelectasis and or scarring. Left lung is clear. Mild hyperinflation. Spinal stimulator device identified extending to the thoracic spine. XR/XR chest 2V IMPRESSION: Right basilar pleural-parenchymal opacity likely atelectasis and small effusion. Impression dictated by: Avery Escobedo M.D. 01/25/2025 10:41 PM Dictation Location: [place] [address] Electronically authenticated by: [id number] Y Date: 01/25/2025 22:41
--- NOTE | 2025-01-25 15:09 | XR_ITS ---
The [address] [address] Patient Name: DARLENE TANG MRN: [id number] date: 1945 Sex: F Assigned Patient Location: [facility] Current Patient Location: [facility] Accession/Order Number: [id number] Exam Date: 01/25/2025 15:15 Report Date: 01/25/2025 22:41 At the request of: OUMAR GUNTER MD Procedure: XR ribs RT 2V X-rays right-sided ribs Indication::: Cough, rib pain COMPARISON: 07/17/2024 FINDINGS: Right-sided pleural-parenchymal opacities with blunting noted likely small effusion and associated atelectasis. No displaced right-sided rib fracture. Degenerative changes of the thoracic spine. XR/XR ribs RT 2V IMPRESSION: Right basilar pleural-parenchymal changes. No displaced rib fracture. Impression dictated by: Avery Escobedo M.D. 01/25/2025 10:41 PM Dictation Location: [place] [address] Electronically authenticated by: [id number] Y Date: 01/25/2025 22:41
== END 2025-01-25 14:55 | disposition home or self-care (01) ==
PROVIDERS: PCP Family Medicine; Visit Provider Family Medicine
DX: R07.89 Other chest pain (principal); R05.1 Acute cough; J44.9 Chronic obstructive pulmonary disease, unspecified; J90 Pleural effusion, not elsewhere classified
CPT/HCPCS: 71046; 71100

== ENCOUNTER 2025-02-12 08:41 | Outpatient (OUT) | payer MEDICARE, SELFPAY ==
--- OUTSIDE RECORDS SUMMARY | 2025-02-12 08:51 | XMS_ITS | CCD ---
Author Organization [facility] Care Team Providers Care Operations Management Professionals Name Role Phone Oumar Gunter MD Primary Care Provider Miguel Spring II Unavailable MD Oumar Gunter Primary Care Provider MD Miguel Spring II Attending Provider [phone] MIGUEL SPRING Admitting Unavailable MIGUEL SPRING Attending Unavailable LYRIC, DR OUMAR San Primary Care Unavailable GUNTER, DR OUMAR San Admitting Unavailable GUNTER, DR OUMAR San Attending Unavailable GUNTER, DR OUMAR San Primary Care Unavailable FAJOEL, SHAIKH Sweetie Admitting Unavailable SHAIKH Sweetie RHODES Attending Unavailable GUNTER, DR OUMAR San Referring Unavailable GUNTER, DR OUMAR San Primary Care Unavailable [facility], DR CIARRA Recinos Consulting Unavailable [...] GUNTER, DR OUMAR San Primary Care Unavailable ADDISON, DR EDWARDO Faria Consulting Unavailable GUNTER, DR OUMAR San Consulting Unavailable GUNTER, DR OUMAR San Admitting Unavailable GUNTER, DR OUMAR San Attending Unavailable GUNTER, DR OUMAR San Primary Care Unavailable GUNTER, DR OUMAR San Consulting Unavailable Oumar Gunter Unavailable MD Oumar Gunter Primary Care Provider MD Miguel Spring II Attending Provider Linda Renteria Unavailable MD Oumar Gunter Primary Care Provider [phone] MD Linda Renteria Attending Provider MD Ouamr Gunter Primary Care Provider MD Linda Renteria Attending Provider [phone] MD Linda Renteria Referring Provider MD Oumar Gunter Primary Care Provider MD Fidelina Escobar Attending Provider Oumar Gunter MD Primary Care Provider Paty Booth MD Attending Provider Oumar Gunter Primary Care Unavailable Paty Booth Attending Unavailable Paty Booth Admitting Unavailable Nina Paulino CMA Attending Provider [facility] Oumar Gunter MD Attending Provider [phone] Raghav Ferreira MD Attending Provider Pancho Buckner MD Attending Provider Fidelina Escobar MD Attending Provider Maria Victoria Uribe APRN Attending Provider Oumar Gunter MD Primary Care Provider [phone] Maria Victoria Uribe APRN Attending Provider [phone] Oumar Gunter MD Attending Provider Allergies Allergy ClassificationReported Allergen(s)Allergy TypeDate of OnsetReaction(s) Facility (4 sources)Adhesive TapeAllergy to pnyvakbjj01-28-7684[facility] (20 sources)Adhesive TapeDrug allergyrasSaint [email or web address] Other (2 sources)Adhesive agentDrug allergy (disorder)40-44-3567[facility] (1 source)Adhesive TapeDrug allergy (disorder)91-37-9157MdckpqgqaMer[facility] Medications Current Medications MedicationDrug Class(es)DatesSig (Normalized)Sig (Original)acetaminophen 325 mg / oxyCODONE hydrochloride 5 mg oral tablet (5 sources)Opioid AgonistStart: 12-22-2024 End: 24-22-1345dagi 1 tablet by mouth twice daily as needed for painOxycodone- Acetaminophen 5-325 mg tablet Active 1 TAB PO Twice daily as needed for pain 60 30 0 December 22, 2024 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 Neoplasm related pain (acute) (chronic) Complies with drug therapyStart: 12-22-2024 End: 80-79-8946hgry 1 tablet by mouth every eight hours as neededOxycodone- Acetaminophen 5-325 mg tablet Discontinued 1 TAB PO Every 8 hours as needed 0 December 22, 2024 12:00am December 22, 2024 10:[id number] 200 actuat albuterol 0.09 mg/actuat metered dose inhaler (7 sources)beta2-Adrenergic AgonistStart: 81-12-1241Axwvowpsb Sulfate 90 mcg/actuation HFA aerosol inhaler Active INHALATION June 27, 2024 12:00am Com plies with drug therapyascorbic acid 200 mg / beta carotene 1000 unt / cuprous oxide 2 mg / dl-alpha tocopheryl acetate 60unt / lutein 2 mg / sodium selenate 0.055 mg / zinc oxide 40 mg oral tablet (3 sources)Vitamin CStart: 66-70-8388xnpf 1 tablet by mouth once dailyVit A,C And X-Tuoqio-Boegajfy (Healthy Eyes) 300 mcg-200 mg-27 mg-2 mg Tablet Active 1 TAB PO DailyApril 2021 12:00am macular degeneration Complies with drug therapybenoxinate hydrochloride 4 mg/ml / fluorescein sodium 2.5 mg/ml ophthalmic solution (1 source)Diagnostic DyeStart: 08-07-2021 End: 08-62-6597bolwhqiojak-benoxinate 0.25-0.4 % 1 Drop (FLURESS)cefadroxil 500 mg oral capsule (6 sources)Cephalosporin AntibacterialStart: 24-01-7605nvvd 1 capsule by mouth every twelve hoursCefadroxil 500 MG 1 tablet Orally every 12 hrs for 7 days MED TO BED UPON DISCHARGE DOS 07/21/2021 Jun, Activecholecalciferol 0.025 mg oral tablet (20 sources)Vitamin DStart: 06-00-5626kreh 1 tablet by mouth every twenty-four hoursVitamin D 25 MCG (1000 UT) 1 tablet Orally Once a day for 56 day(s) Jun, ActiveStart: 31-66-2718khph 1 tablet by mouth once dailyCholecalciferol (Vitamin D3) (Vitamin D3) 25 mcg (1,000 unit) Tablet Active 25 MCG PO Daily July 07, 2021 12:00am Complies with drug therapyStart: 33-78-7653Izwawbi D3 250 MCG (01338 UT) as directed Orally Feb, ActiveStart: 02-27-2021 Vitamin D3 250 MCG (68448 UT) as directed Orally Feb, ActiveComment on above:Take 1,000 Units by mouth once daily.docusate sodium 50 mg / sennosides, detention 8.6 mg oral tablet (6 sources)Start: 37-15-3262lvyj 2 tablets by mouth every twenty-four hours Senokot S 8.6-50 MG 2 tablets Orally Once a day for 30 day(s) MED TO BED UPON DISCHARGE DOS 07/21/2021 Jun, ActiveHealthy Eyes - (20 sources)Healthy Eyes - as directed Orally Activeibuprofen 800 mg oral tablet (5 sources)Nonsteroidal Anti-inflammatory DrugStart: 34-47-2223wnyd 1 tablet by mouth twice dailyIbuprofen 800 mg tablet Active 800 MG PO Twice daily July 25, 2024 12:00am Complies with drug therapyIron (5 sources)Start: 12-30-0551fckq 1 tablet by mouth three times dailyIron (Ferrous Sulfate) 325 (65 Fe) MG 1 tablet Orally TID for 28 days Jun, Activeketorolac tromethamine 5 mg/ml ophthalmic solution (3 sources)Nonsteroidal Anti-inflammatory Drug, Cyclooxygenase InhibitorStart: 05-41-9718glYBYiboo (ACULAR) 0.5 % ophthalmic solution USE DIRECTED BY PHYSICIAN, IN OPERATIVE EYE, BEGINNING ONE DAY AFTER SURGERY 5 mL 0 08/20/2021 ActiveStart: 03-76-4750olFBQoqde (ACULAR) 0.5 % ophthalmic solution USE DIRECTED BY PHYSICIAN, IN OPERATIVE EYE, BEGINNING ONE DAY AFTER SURGERY 5 mL 0 08/05/2021 ActiveComment on above:USE DIRECTED BY PHYSICIAN, IN OPERATIVE EYE, BEGINNING ONE DAY AFTER SURGERYlisinopril 5 mg oral tablet (20 sources)Angiotensin Converting Enzyme InhibitorStart: 11-01-2023 End: 36-35-3804Pfxlboxnuh 5 mg tablet Active 0 .ROUTE .COMPLEX 90 August 22, 2024 12:12pm TAKE 1 TABLET EVERY DAYComplies with drug therapyStart: 06-01-2023 End: 81-04-3921dbmb 1 tablet by mouth once dailyLisinopril 5 mg tablet Discontinued 5 MG PO Daily 90 August 18, 2023 12:29pm November 01, 2023 9:43am Start: 91-58-0417vjjj 1 tablet by mouth every twenty-four hoursLisinopril 5 MG 1 tablet Orally Once a day for 30 day(s) Dec, ActivemethylPREDNISolone 4 mg oral tablet (1 source)CorticosteroidStart: 13-45-0263Kwagbt 4 MG as directed Orally Once a day for 5 days Aug, Activemorphine sulfate 15 mg extended release oral tablet (20 sources)Opioid AgonistStart: 01-15-2025 End: 96-93-2855zyiy 1 tablet by mouth every eight hoursMorphine 15 mg tablet extended release Active 15 MG PO Every 8 hours 90 30 0 January 15, 2025 Filler Shredder davion pain after treatment for malignant neoplasm Neoplasm related pain (acute) (chronic) Complies with drug therapyStart: 12-22-2024 End: 15-17-5889ryjx 1 tablet by mouth every eight hoursMorphine 15 mg tablet extended release Discontinued 15 MG PO Every 8 hours 90 30 December 22, December 22, 2024 11:02am 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 Neoplasm related pain (acute) (chronic)Start: 12-22-2024 End: 41-63-7932pgps 1 tablet by mouth every eight hoursMorphine 15 mg tablet extended release Discontinued 15 MG PO Every 8 hours 90 30 December 22, 2 January 15, 2025 8:35am 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 Neoplasm related pain (acute) (chronic)Start: 09-22-2024 End: 75-32-5212jtax 1 tablet by mouth every twelve hoursMorphine 15 mg tablet extended release Discontinued 15 MG PO Q12H 60 30 0 November 28, 2024 Septem tonya 2024 10:18am 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 Neoplasm related pain (acute) (chronic)Start: 08-30-2024 End: 16-54-7770vfom 1 tablet by mouth every twelve hoursMorphine 15 mg tablet extended release Discontinued 15 MG PO Q12H 60 30 0 August 30, 2024 August 30, 2 025 1:38pm 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 Neoplasm related pain (acute) (chronic)Start: 05-09-2024 End: 68-72-6175vict 1 tablet by mouth every twelve hoursMorphine 15 mg tablet extended release Discontinued 15 MG PO Q12H 60 30 0 June 23, 2024 July 31, 2024 9:57am 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 Neoplasm related pain (acute) (chronic)Start: 04-26-2024 End: 28-17-2851mhvo 1 tablet by mouth every twelve hoursMorphine 15 mg tablet extended release Discontinued 15 MG PO Q12H 30 15 0 April 26, 2024 April 26, 2024 11:24am 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 Neoplasm related pain (acute) (chronic)Start: 04-26-2024 End: 28-84-4768najp 1 tablet by mouth every twelve hoursMorphine 15 mg tablet extended release Discontinued 15 MG PO Q12H 30 15 0 April 26, 2024 May 09, 2024 4:42pm 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 Neoplasm related pain (acute) (chronic)Start: 74-00-8116quvc 1 tablet by mouth every twelve hours for painMorphine Sulfate ER 15 MG 1 tablet for breakthrough pain only Orally every 12 hrs for 5 days MED TOBED UPON DISCHARGE DOS 07/21/2021 Jun, ActiveMultivitamin preparation (14 sources)take 1 tablet by mouth once dailyMulti Vitamin - 1 tablet Orally Once a day ActiveMv,Ca,Min-Folic Acid-Vit K1 (One-A-Day Women's 50 Plus) 400-20 mcg Tablet (14 sources)Start: 94-87-5380psah 50-400 tablets by mouth once dailyMv,Ca,Min- Folic Acid-Vit K1 (One-A-Day Women's 50 Plus) 400-20 mcg Tablet Active 1 TAB PO Daily July 07, 2021 12:00am supplement Complies with drug therapyStart: 06-98-2373rbbd 50-400 tablets by mouth once dailyMv,Ca,Min-Folic Acid-Vit K1 (One-A-Day Women's 50 Plus) 400-20 mcg Tablet Active 1 TAB PO Daily July 07, 2021 12:00am Complies with drug therapyStart: 64-01-8324ewol 50-400 tablets by mouth once dailyMv,Ca,Min-Folic Acid-Vit K1 (One-A-Day Women's 50 Plus) 400-20 mcg Tablet Active 1 TAB PO Daily July 06, 2021 11:00pmStart: 87-16-4380vgnd 50-400 tablets by mouth once dailyMv,Ca,Min-Folic Acid-Vit K1 (One-A-Day Women's 50 Plus) 400-20 mcg Tablet Active 1 TAB PO Daily July 07, 2021 12:00am Myrbetrig 25mg (8 sources)Start: 15-73-4212lixk 1 tablet by mouth once dailyMyrbetrig 25mg 1 Tablet Orally Once a day Feb, Activeondansetron 8 mg oral tablet (6 sources)Serotonin-3 Receptor AntagonistStart: 19-88-6533gwsl 1 tablet by mouth three times daily as needed for nauseaOndansetron HCl 8 MG 1 tablet as needed for nausea Orally TID for 10 days MED TO BED UPON DISCHARGEDOS 07/21/2021 Jun, Activepolyethylene glycol 3350 04354 mg powder for oral solution (6 sources)Osmotic LaxativeStart: 41-96-6345KuzfCdr 17 GM 1 packet mixed with 8 ounces of fluid Orally Once a day for 7 days MED TO BED UPON DISCHARGE DOS 07/21/2021 Jun, Activepravastatin sodium 10 mg oral tablet (20 sources)HMG-CoA Reductase InhibitorStart: 01-18-2024 End: 74-39-4280Vitnsgsggok 10 mg tablet Active 0 .ROUTE .COMPLEX 90 3 November 14, 2024 3:06pm TAKE 1 TABLET EVERYDAY Complies with drug therapyStart: 12-25-2010 End: 09-97-2461wvdh 1 tablet by mouth once daily at bedtimePravastatin 10 mg tablet Discontinued 10 MG PO Daily at bedtime July 07, 2021 12:00am January 18, 2024 4:48pm hyperlipidemiaComment on above:Take 1 tablet by mouth once daily.prednisoLONE acetate 10 mg/ml ophthalmic suspension (3 sources)CorticosteroidStart: 41-10-9899flvdxruiSAVP acetate (PRED FORTE, ECONOPRED PLUS) 1 % ophthalmic suspension USE DIRECTED BY PHYSICIAN, IN OPERATIVE EYE, BEGINNING ONE DAY AFTER SURGERY 5 mL 0 08/20/2021 ActiveStart: 70-55-3478yiwamddkCVAR acetate (PRED FORTE, ECONOPRED PLUS) 1 % ophthalmic suspension USE DIRECTED BY PHYSICIAN, IN OPERATIVE EYE, BEGINNING ONE DAY AFTER SURGERY 5 mL 0 08/05/2021 ActiveComment on above:USE DIRECTED BY PHYSICIAN, IN OPERATIVE EYE, BEGINNING ONE DAY AFTER SURGERYVit A,C And S-Rxwvye-Vobgqady (Healthy Eyes) 300 mcg-200 mg-27 mg-2 mg Tablet (11 sources)Start: 18-81-9835iywc 1 tablet by mouth once dailyVit A,C And S-Oxzjkd-Dteccmjb (Healthy Eyes) 300 mcg-200 mg-27 mg-2 mg Tablet Active 1 TAB PO DailyApril 2021 11:00pmStart: 23-48-8400brbj 1 tablet by mouth once dailyVit A,C And T-Ygsrzi-Oymfmzud (Healthy Eyes) 300 mcg-200 mg-27 mg-2 mg Tablet Active 1 TAB PO DailyApril 2021 12:00amVitamin D 25 MCG (1000 UT) (20 sources)Start: 37-34-7220gptt 1 tablet by mouth once dailyVitamin D 25 MCG (1000 UT) 1 tablet Orally Once a day for 56 day(s) Jun, ActiveVitamin D3 250 MCG (39453 UT) (19 sources)Start: 18-83-5402Wfoxoec D3 250 MCG (91199 UT) as directed Orally Feb, Active Completed/Discontinued Medications MedicationDrug Class(es)DatesSig (Normalized)Sig (Original)acetaminophen 500 mg oral tablet (20 sources)Start: 07-07-2021 End: 37-69-4939nptg 2 tablets by mouth three times daily as needed for pain Acetaminophen (Acetaminophen Extra Strength) 500 mg Tablet Discontinued 1000 MG PO Three times daily as needed for Pain July 07, 2021 12:00am May 31, 2023 4:18pmStart: 07-61-5503gnhf 2 tablets by mouth every eight hours for pain acetaminophen (TYLENOL) 500 mg tablet TAKE TWO TABLETS BY MOUTH EVERY 8 HOURS FOR PAIN 0 07/16/2021ctiveComment on above:TAKE TWO TABLETS BY MOUTH EVERY 8 HOURS FOR PAINaspirin 81 mg delayed release oral tablet (20 sources)Platelet Aggregation Inhibitor, Nonsteroidal Anti-inflammatory Drug Start: 05-88-7971eypa 1 tablet by mouth twice dailyAspirin 81 MG 1 tablet Orally BID for 35 days MED TO BED UPON DISCHARGE DOS 07/21/2021Jun,ctive Start: 09-77-1716kzis 1 tablet by mouth every twenty-four hoursAspirin 81 MG 1 tablet Orally Once a day for 30 day(s) Feb, ActiveStart: 12-25-2010 End: 22-04-6938xgir 1 tablet by mouth once dailyAspirin (Aspirin Low Dose) 81 mg Tablet,Delayed Release (Dr/Ec) Discontinued 81 MG PO Daily July 07, 2021 12:00am March 06, 2024 12:52pmComment on above:Take 1 tablet by mouth once daily.calcium carbonate 1250 mg / cholecalciferol 100 unt / vitamin k1 0.04 mg chewable tablet (14 sources)Vitamin D, Warfarin Reversal Agent, Vitamin KStart: 07-07-2021 End: 32-82-5571gjak 2 tablets by mouth once dailyCalcium-Vitamin D3-Vitamin K (Viactiv) 500-100-40 mg-unit-mcg Tablet,Chewable Discontinued 2 TAB PODaily July 07, 2021 12:00am June 01, 2023 1:19pm bone healthcelecoxib 200 mg oral capsule (10 sources)Nonsteroidal Anti-inflammatory DrugStart: 52-39-6851mtpy 1 capsule by mouth twice daily at mealtimecelecoxib (CELEBREX) 200 mg capsule Take 200 mg by mouth twice daily with meals. 0 07/16/2021 ActiveComment on above:Take 200 mg by mouth twice daily with meals.diphenhydrAMINE hydrochloride 25 mg oral tablet (14 sources)Histamine-1 Receptor AntagonistStart: 07-07-2021 End: 36-26-0144fzwo 1 tablet by mouth once daily at bedtime as needed Diphenhydramine Hcl (Sleep Aid (Diphenhydramine)) 25 mg Tablet Discontinued 25 MG PO Daily at bedtime as needed for Insomnia July 07, 2021 12:00am June 01, 2023 1:20pmDULoxetine 60 mg delayed release oral capsule (20 sources)Serotonin and Norepinephrine Reuptake InhibitorStart: 08-04-2023 End: 96-97-3591Lphwyvlpak 60 mg capsule,delayed release(DR/EC) Discontinued 0 .ROUTE .COMPLEX 90 0 July 24, 2024 12:20pm October 09, 2024 8:18am TAKE 1 CAPSULE EVERY MORNINGStart: 08-04-2023 End: 74-99-9884Gcshornxkx 30 mg capsule,delayed release(DR/EC) Discontinued 0 .ROUTE .COMPLEX 90 0 July 24, 2024 12:20pm October 09, 2024 8:18am TAKE 1 CAPSULE AT BEDTIMEStart: 08-01-2015 End: 42-61-0491jjjz 1 capsule by mouth once daily in the morningDuloxetine 60 mg capsule,delayed release(DR/EC) Discontinued 60 MG PO Every morning July 07, 2021 12:00am August 04, 2023 1:44pm neuropathyStart: 05-21-2015 End: 27-06-0493ziux 1 capsule by mouth once daily at bedtimeDuloxetine 30 mg capsule,delayed release(DR/EC) Discontinued 30 MG PO Daily at bedtime July 07, 2021 12:00am August 04, 2023 1:44pm neuropathyComment on above:Take 1 capsule by mouth once daily.TAKE ONE CAPSULE EVERY MORNING1 capsule every morning.1 capsule daily at bedtime.ferrous sulfate 325 mg oral tablet (4 sources)Start: 04-31-0034pelm 1 tablet by mouth three times dailyferrous sulfate 325 mg (65 mg iron) tablet TAKE 1 TABLET BY MOUTH 3 TIMES A DAY FOR 28 DAYS 0 07/10/2021 ActiveComment on above:TAKE 1 TABLET BY MOUTH 3 TIMES A DAY FOR 28 DAYSfurosemide 20 mg oral tablet (4 sources)Loop DiureticStart: 08-01-2024 End: 18-27-3576xtwd 1 tablet by mouth once dailyFurosemide 20 mg tablet Discontinued 20 MG PO Daily 14 0 August 01, 2024 12:00am September 22, 2024 10:14am gabapentin 300 mg oral capsule (20 sources)Anti-epileptic AgentStart: 06-29-2023 End: 83-21-7694bwqf 1 capsule by mouth three times dailyGabapentin 300 mg capsule Discontinued 300 MG PO Three times daily 270 90 0 September 22, 2024 10:30amJun2024 10:41amStart: 07-07-2021 End: 59-34-5569jaig 1 tablet by mouth three times dailyGabapentin 600 mg tablet Discontinued 600 MG PO Three times daily July 07, 2021 12:00am June 29, 2023 2:57pm pain/neuropathyStart: 79-08-4176zpwoxzwxzy (NEURONTIN) 600 mg tablet take 1 capsule by mouth every twenty-four hoursGabapentin 400 MG 1 tablet Orally Once a day for 7 days ActivelevoFLOXacin 500 mg oral tablet (10 sources)Quinolone AntimicrobialStart: 06-02-2023 End: 69-15-5917bwdq 1 tablet by mouth once dailyLevofloxacin 500 mg tablet Discontinued 500 MG PO Daily June 02, 2023 1:00am June 29, 2023 2:29pm meloxicam 15 mg oral tablet (20 sources)Nonsteroidal Anti-inflammatory DrugStart: 02-27-2021 End: 93-99-5699dkfz 1 tablet by mouth every twenty-four hoursMeloxicam 15 MG 1 tablet Orally Once a day for 30 day(s) Feb, Not-Taking/PRNComment on above:TAKE 1 TABLET BY MOUTH EVERY DAY FOR 30 DAYS24 hr mirabegron 50 mg extended release oral tablet (20 sources)beta3-Adrenergic AgonistStart: 07-27-2023 End: 16-10-5487pfas 1 tablet by mouth once dailyMirabegron (Myrbetriq) 50 mg tablet extended release 24 hr Discontinued 0 .ROUTE .COMPLEX 30 2 2023 9:59am December 20, 2023 10:17am TAKE 1 TABLET BY MOUTH EVERY DAY FOR 90 DAYS Start: 06-01-2023 End: 30-58-5253wyyi 1 tablet by mouth once dailyMirabegron (Myrbetriq) 50 mg tablet extended release 24 hr Discontinued 50 MG PO Daily July 27, 2023 12:00am July 27, 2023 3:47pmStart: 13-41-1408gezp 50 mg by mouth once daily MYRBETRIQ 50 mg Tb24 Take 50 mg by mouth once daily. 0 07/07/2021 ActiveComment on above:Take 50 mg by mouth once daily.naloxone hydrochloride 40 mg/ml nasal spray (3 sources)Opioid AntagonistStart: 10-21-2023 End: 56-88-7803Nqpggick (Narcan) 4 mg/actuation spray,non-aerosol Discontinued 1 SPRAY INTRANASAL Q2M 2 0 October 21, 2023 12:00am March 06, 2024 12:54pm spray 1 dose into ONE nostril; alternate nostrils w each dose until help arrives Naloxone (Narcan) 4 mg/actuation spray,non-aerosol (6 sources)Start: 10-21-2023 End: 08-66-2637Ihdflilt (Narcan) 4 mg/actuation spray,non-aerosol Discontinued 1 SPRAY INTRANASAL Q2M 2 September 12:00am March 06, 2024 12:54pm spray 1 dose into ONE nostril; alternate nostrils w each dose until help arrivesStart: 10-21-2023 End: 90-70-3342Lgqkzoqf (Narcan) 4 mg/actuation spray,non-aerosol Discontinued 1 SPRAY INTRANASAL Q2M 2 September 11:00pm March 06, 2024 11:54am spray 1 dose into ONE nostril; alternate nostrils w each dose until help arrivesnaproxen 500 mg oral tablet (20 sources)Nonsteroidal Anti-inflammatory DrugStart: 06-24-2023 End: 78-33-4330qbyy 1 tablet by mouth once dailyNaproxen 500 mg tablet Discontinued 0 .ROUTE .COMPLEX 90 0 August 18, 2023 12:30pm November 01, 2023 9 :43am TAKE 1 TABLET BY MOUTH EVERY DAYStart: 04-30-2021 End: 15-86-2965tylf 1 tablet by mouth once dailyNaproxen 500 mg tablet Discontinued 500 MG PO every day at noon July 07, 2021 12:00am June 24, 2023 1:04pm painStart: 89-56-9566aybv 1 tablet by mouth every twelve hours at mealtime as neededNaproxen 500 MG 1 tablet with food or milk as needed Orally every 12 hrs Feb, ActiveComment on above:Take 500 mg by mouth once daily.Tiotropium-Olodaterol (10 sources)Anticholinergic, beta2-Adrenergic AgonistStart: 06-01-2023 End: 58-75-9829Fupdhurwqw-Olodaterol (Stiolto Respimat) 2.5-2.5 mcg/actuation mist Discontinued INHALATION June 01, 2023 1:00am September 22, 2024 10:15am Start: 57-10-4776Zmlsixmnsb-Olodaterol (Stiolto Respimat) 2.5-2.5 mcg/actuation mist Active INHALATION June 01, 2023 12:00amStart: 53-88-8071Jqwskggram- Olodaterol (Stiolto Respimat) 2.5-2.5 mcg/actuation mist Active INHALATION June 01, 2023 1:00amoseltamivir 75 mg oral capsule (8 sources)Neuraminidase InhibitorStart: 06-02-2024 End: 33-69-4800ffkb 1 capsule by mouth every twelve hoursOseltamivir (Tamiflu) 75 mg capsule Discontinued 75 MG PO Every 12 hours 10 5 0 June 02, 2024 1:00am June 27, 2024 2:13pm24 hr oxybutynin chloride 10 mg extended release oral tablet (1 source)Cholinergic Muscarinic AntagonistStart: 05-05-2021 End: 70-41-9213hpdfxrdckt ER (DITROPAN XL) 10 mg 24 hr tabletoxyCODONE hydrochloride 10 mg oral tablet (20 sources)Opioid AgonistStart: 06-29-2023 End: 97-06-0814hevj 1 tablet by mouth three times daily as needed for pain Oxycodone 10 mg tablet Discontinued 10 MG PO Three times daily as needed for pain 90 30 0 September 16, 2023 October 14, 2023 10:32am Chronic thoracic back pain Pain in thoracic spine Other chronic painStart: 05-27-2023 End: 45-99-2530vxrt 1 tablet by mouth every eight hours as needed for pain Oxycodone 15 mg tablet Discontinued 15 MG PO Every 8 hours as needed for pain 90 30 0 May 31, 2023 June 29, 2023 2:57pm Chronic thoracic back pain Pain in thoracic spine Other chronic painStart: 38-57-8446kmjo 1 tablet by mouth every eight hoursoxyCODONE HCl 15 MG 1 tablet Orally q8h for 30 days Apr, ActiveStart: 69-59-0919xwjf 1 tablet by mouth every eight hoursoxyCODONE HCl 15 MG 1 tablet Orally q8h for 30 days Feb, ActiveStart: 35-51-0270iagp 1 tablet by mouth every eight hoursoxyCODONE HCl 15 MG 1 tablet Orally q8h for 30 days Jan, ActiveStart: 99-93-5213ctgTHXYSC HCl 15 MG 1 tablet Orally 1 tablet in the afternoon, 2 tablets at night for 30 days Dec, Active Start: 04-10-0707bsdSQQBJX HCl 15 MG 1 tablet Orally 1 tablet in the afternoon, 2 tablets at night for 30 days Sep, ActiveStart: 26-54-5688alcZNJRNW HCl 15 MG 1 tablet Orally 1 tablet in the afternoon, 2 tablets at night for 30 days Aug, ActiveStart: 14-27-0305gocPELALP HCl 15 MG 1 tablet Orally 1 tablet in the afternoon, 2 tablets at night for 30 days Jun, ActiveStart: 07-07-2021 End: 89-25-8114toem 1 tablet by mouth twice dailyOxycodone 15 mg tablet Discontinued 15 MG PO Twice daily July 07, 2021 12:00am June 01, 2023 1: 21pm painStart: 07-07-2021 End: 51-06-3010txgt 7.5 mg by mouth once dailyOxycodone 15 mg tablet Discontinued 7.5 MG PO Daily July 07, 2021 12:00am June 01, 2023 1:21pmpain Start: 07-07-2021 End: 56-19-9412elke 7.5 mg by mouth once dailyOxycodone Discontinued 7.5 MG PO Daily July 07, 2021 12:00am June 01, 2023 1:21pmStart: 05-19-2183afbw 1 tablet by mouth every four hours as needed for painoxyCODONE HCl 5 MG 1 tablet as needed for pain Orally every 4 hrs for 7 days MED TO BED UPON DISCHARGE DOS 07/21/2021 Jun, ActiveStart: 98-95-3647ukgi 1 tablet by mouth every six hoursoxyCODONE HCl 15 MG 1 tablet Orally every 6 hrs Feb, Active microencapsulated potassium chloride 10 meq extended release oral tablet (3 sources)Start: 08-01-2024 End: 31-23-3658Abpgtqzmb Chloride (Klor-Con M10) 10 mEq tablet,ER particles/crystals Discontinued 10 MEQ PO Daily 14 0 August 01, 2024 12:00am September 22, 2024 10:15ampredniSONE 20 mg oral tablet (10 sources)Start: 06-02-2023 End: 13-01-3170unde 1 tablet by mouth twice dailyPrednisone 20 mg tablet Discontinued 20 MG PO Twice daily June 02, 2023 1:00am June 29, 2023 2:29pm 12 hr tapentadol 50 mg extended release oral tablet (1 source)Opioid AgonistStart: 06-19-2015 End: 58-12-6082qlevpiviwb (NUCYNTA ER) 50 mg Tb12 Take one tablet twice a day for pain 60 tablet 0 06/19/2015 07/30/2021 Discontinued (Course of therapy completed)Comment on above:Take one tablet twice a day for paintraMADol hydrochloride 50 mg oral tablet (10 sources)Opioid AgonistStart: 40-74-7056daxz 1 tablet by mouth every six hours as neededtraMADol (ULTRAM) 50 mg tablet Take 50 mg by mouth every 6 hours as needed. 0 07/16/2021 ActiveComment on above:Take 50 mg by mouth every 6 hours as needed.Triamcinolone (20 sources)CorticosteroidStart: 42-52-0099Zzeujnx -40 mg Feb, 120 mg zolpidem tartrate 10 mg oral tablet (1 source)gamma-Aminobutyric Acid-ergic AgonistStart: 09-04-2014 End: 01-85-3188uqiziifp (AMBIEN) 10 mg tab Take 1 tablet at bedtime. 0 09/04/2014 07/30/2021 Discontinued (Course of therapy completed)Comment on above:Take 1 tablet at bedtime. 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]02-47-9118BqnqxnyZfsiulmf (2 sources)Bilateral senile combined form cataracts of eyes; Translations: [Combined forms of age-related cataract, bilateral]ChronicChronic obstructive pulmonary disease and bronchiectasis (15 sources)Moderate chronic obstructive pulmonary disease; Translations: [Chronic obstructive pulmonary disease, unspecified]ChronicCongestive heart failure; nonhypertensive (10 sources)Congestive heart failure; Translations: [Heart failure, unspecified] Onset: 420694-28-9927XncwzvrZwfsxkwwmd and other anemia (10 sources)Anemia of chronic disease; Translations: [Anemia in other chronic diseases classified elsewhere]91-38-1023PdirzxjPgviytdniu and other anemia (1 source)Anemia in other chronic diseases classified elsewhere; Translations: [Anemia of other chronic disease]11-41-9397QkmvtwpOauunxaxq of lipid metabolism (20 sources)Hyperlipidemia; Translations: [Other hyperlipidemia]Onset: 337898-25-0581AujdzvlY Codes: Fall (8 sources)Fall; Translations: [Unspecified fall, initial encounter]07-25-2024 EpisodicEssential hypertension (9 sources)Hypertensive disorder; Translations: [Essential (primary) hypertension]12-91-7366DbscrdjTvvcmqh on above:hx of-no medication currentlyProblem List clean-up per request of Phys. EHR CmteMycoses (2 sources)Histoplasmosis syndrome of left eye; Translations: [Histoplasmosis, unspecified]EpisodicNonspecific chest pain (2 sources)Rib pain; Translations: [Other chest pain]35-65-1011Pmfdrsxm Osteoarthritis (20 sources)Osteoarthritis of left knee joint; Translations: [Unilateral primary osteoarthritis, left knee]Onset: 05-28-2021 Resolved: 20-10-3471NirkgxqTutxbnxzovrx (20 sources)Primary osteoporosis; Translations: [Age-related osteoporosis without current pathological fracture]Onset: 05-28-2021 Resolved: 53-33-4778ZcsaxnyWjovm aftercare (20 sources)Patient encounter status; Translations: [Aftercare following joint replacement surgery]ChronicOther aftercare (4 sources)Aftercare following joint replacement surgeryOnset: 08-07-2021 Resolved: 17-25-3109XkvllseFnbbx aftercare (9 sources)Patient encounter status; Translations: [Encounter for palliative care]30-63-4485VrtuipcgJuqdr aftercare (5 sources)Encounter for palliative care; Translations: [Encounter for palliative care]62-06-4918PzrwpsfkLyuuj and unspecified benign neoplasm (17 sources)History of polyp of colon; Translations: [History of colon polyps] EpisodicOther connective tissue disease (20 sources)Artificial knee joint present; Translations: [Presence of left artificial knee joint]93-54-2324FrqhxtgTliqr connective tissue disease (4 sources)Presence of left artificial knee jointOnset: 08-07-2021 Resolved: 84-42-9141JhoebjdClvel connective tissue disease (1 source)Neuralgia and neuritis, unspecifiedEpisodicOther connective tissue disease (4 sources)Hand pain; Translations: [Pain in left hand]54-69-0421PtjrtjciMnfir connective tissue disease (4 sources)Pain in left hand; Translations: [Pain in limb]20-40-2534Npjfhfgt Other connective tissue disease (4 sources)Pain of left hand; Translations: [Pain in left hand]06-27-2024 EpisodicOther diseases of bladder and urethra (20 sources)Overactive bladder; Translations: [Overactive bladder]05-31-2023 ChronicOther diseases of bladder and urethra (1 source)Overactive bladderChronicOther eye disorders (2 sources)H/O: L cataract extraction; Translations: [Cataract extraction status, left eye]EpisodicOther fractures (6 sources)Fracture of rib; Translations: [Fracture of one rib, unspecified side, initial encounter for closedfracture]00-60-4910FvrvwohoUklhp fractures (2 sources)Fracture of one rib, unspecified side, initial encounter for closed fracture; Translations: [Closedfracture of rib(s), unspecified]07-25-2024 EpisodicOther gastrointestinal disorders (9 sources)Constipation; Translations: [Constipation, unspecified]04-30-2024 EpisodicOther gastrointestinal disorders (5 sources)Constipation, unspecified; Translations: [Constipation, unspecified] 62-17-2137TjxwzldvXhhpk lower respiratory disease (17 sources)Dyspnea; Translations: [Shortness of breath]91-43-5785JoddbjjcCxlrv lower respiratory disease (2 sources)Shortness of breathEpisodicOther lower respiratory disease (9 sources)Cough; Translations: [Cough]23-08-0004GanazcuqAlsts nervous system disorders (5 sources)Complex regional pain syndrome type I; Translations: [Complex regional pain syndrome I, unspecified]Onset: 549457-35-5070AaerwyqUogsp nervous system disorders (20 sources)Expressive dysphasia; Translations: [Aphasia]30-15-9505JseibswPqsti nervous system disorders (18 sources)Peripheral neuropathic pain; Translations: [Unspecified mononeuropathy of bilateral lower limbs]31-10-5011YoyyvmdDtzwy nervous system disorders (5 sources)Unspecified mononeuropathy of bilateral lower limbs; Translations: [Unspecified hereditary and idiopathic peripheral neuropathy]ChronicOther nervous system disorders (10 sources)Metabolic encephalopathy; Translations: [Metabolic encephalopathy] 00-06-5052DromhbnKbiwn nervous system disorders (1 source)Metabolic encephalopathy; Translations: [Metabolic encephalopathy] 60-02-1505QckdhktIykck nervous system disorders (12 sources)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; Translations: [Neoplasm related pain (acute) (chronic)]10-15-5761HgsjafqXhlkw nervous system disorders (10 sources)Neoplasm related pain (acute) (chronic); Translations: [Neoplasm related pain (acute) (chronic)]81-84-5878HqunytuIcpgg nervous system disorders (1 source)Other speech disturbancesEpisodicOther non-traumatic joint disorders (6 sources)Pain in wrist; Translations: [Pain in left wrist]25-59-9965Qhlyodrh Other non-traumatic joint disorders (2 sources)Pain in left wrist; Translations: [Pain in joint, forearm]Onset: 491223-73-6297BzttqfoeVaqfo non-traumatic joint disorders (3 sources)Pain of left wrist; Translations: [Pain in left wrist]03-07-2024 EpisodicOther nutritional; endocrine; and metabolic disorders (2 sources)Body mass index 30+ - obesity; Translations: [Obesity, unspecified] Onset: 040505-21-0481BliiueeYzgso skin disorders (6 sources)Generalized hyperhidrosis; Translations: [GENERALIZED HYPERHIDROSIS] Onset: 95-41-0547WcsexjvfYoqjj skin disorders (17 sources)Excessive sweating; Translations: [Generalized hyperhidrosis] 74-89-2403VwoezcbmPiyllzmlk (except that caused by tuberculosis or sexually transmitted disease) (11 sources)Pneumonia; Translations: [Pneumonia, unspecified organism]06-02-2023 EpisodicPulmonary heart disease (20 sources)Pulmonary hypertension; Translations: [Pulmonary hypertension, unspecified]ChronicResidual codes; unclassified (6 sources)Confusional state; Translations: [Disorientation, unspecified] 43-74-9061OhirfcjyNfypqxwg codes; unclassified (2 sources)Disorientation, unspecified; Translations: [Unspecified psychosis] 31-23-5669RprxjwtvAwmhqvpb codes; unclassified (5 sources)Edema; Translations: [Edema, unspecified]14-05-5249AartbietNwlwovqy codes; unclassified (1 source)Edema, unspecified; Translations: [Edema]46-43-0075CijafpafGmqyhlb detachments; defects; vascular occlusion; and retinopathy (10 sources)Degenerative disorder of macula ; Translations: [Unspecified macular degeneration]85-54-9895OonayibSubdbixnpw (except in labor) (11 sources)Sepsis; Translations: [Sepsis, unspecified organism]06-02-2023 EpisodicSpondylosis; intervertebral disc disorders; other back problems (15 sources)Pain in thoracic spine; Translations: [Chronic thoracic back pain] EpisodicUnclassified (2 sources)CONTACT W/AND (SUSP) EXPOS COVID-19; Translations: [CONTACT W/AND (SUSP) EXPOS COVID-19]Onset: 12-94-1190Ficgh infection (1 source)COVID-19; Translations: [COVID-19]Onset: 04-09-2021 Past or Other Problems Problem ClassificationProblemDateDocumented DateEpisodic/ChronicDiabetes mellitus without complication (1 source)Impaired fasting glucose; Translations: [IMPAIRED FASTING GLUCOSE] Onset: 59-20-9745TzmwyyqmOielf aftercare (2 sources)Other exterminator termite (current) drug therapy; Translations: [OTH PRODUCT SAFETY TESTER CURRENT DRUG THERAPY]Onset: 05-28-2021 Resolved: 88-61-3433IcnqfsceFydrt circulatory disease (4 sources)Other specified symptoms and signs involving the circulatory and respiratory systems; Translations:[OTH SPEC SX SIGNS INVLV CIRC RS]Onset: 41-11-2408OmymdnevOnngw connective tissue disease (4 sources)Neuropathic pain; Translations: [Neuralgia and neuritis, unspecified] Onset: 942659-87-0843BhdpeaisFfiiw lower respiratory disease (4 sources)Dyspnea, unspecified; Translations: [DYSPNEA UNSPECIFIED]Onset: 94-67-5761BtpbnecaDxjvt nervous system disorders (4 sources)Burning sensation; Translations: [Other disturbances of skin sensation]Onset: 094198-23-6486FtdzcmnqRjppi non-traumatic joint disorders (4 sources)Pain in left knee; Translations: [PAIN IN LEFT KNEE]Onset: 02-04-2021 EpisodicUnclassified (1 source)CONTACT W/AND (SUSP) EXPOS COVID-19; Translations: [CONTACT W/AND (SUSP) EXPOS COVID-19]Onset: 04-03-2021 Results Test NameValueInterpretationReference RangeFacilityBasophils Auto (Bld) [#/Vol] on 98-65-8440Yyryxrlla (Bld) [#/Vol]0.1 10 3/uL0.0-0.1FMedina HospitalBasophils/100 WBC Auto (Bld)on 65-36-0581Fbirzgvtw/100 WBC (Bld)0.9 % 0.2-2.0[facility] HospitalEosinophils/100 WBC Auto (Bld)on 14-44-2294Iewkrfnyyeg/100 WBC (Bld)3.8 %0.9-7.0[facility] Erythrocyte distribution width Auto (RBC) [Ratio]on 30-09-9023Nvzwinhoqya distribution width (RBC) [Ratio]13.2 %11.0-15.0[facility] Estimated glomerular filtration rate (GFR) non- Americanon 08-11-2024 GFR/1.73 sq M.predicted among non-blacks MDRD (S/P/Bld) [Vol rate/Area]38 mL/min/{1.73_m2}Low>=60 mL/min/1.73m 2FMedina HospitalGlobulin Calc (S) [Mass/Vol]on 09-12-5550Akwuhlph (S) [Mass/Vol]3.4 g/dLMercy Health Clermont HospitalHematocrit Auto (Bld) [Volume fraction]on 08-11-2024 Hematocrit (Bld) [Volume fraction]37.9 %36.0-48.0[facility] HospitalHemoglobin [Mass/volume] in Bloodon 29-31-9500Aaknktkoad (Bld) [Mass/Vol] 11.7 g/dLLow12.0-16.0[facility] HospitalIron binding capacity [Mass/volume] in Serum or Plasmaon 38-68-1014Dxaj binding capacity [Mass/Vol] 311.0 ug/dL250.0-450.0[facility] HospitalIron saturation [Mass Fraction] in Serum or Plasmaon 26-70-8232Mkxe saturation [Mass fraction]26.4 % [facility] HospitalLaboratory - Chemistry and Chemistry - challengeon 52-61-7234Ipsddxd [Mass/Vol]3.8 g/dL3.4-5.0[facility] HospitalALP [Catalytic activity/Vol]82 U/C71-560YmeecjwkeMercy Health Clermont HospitalALT [Catalytic activity/Vol]29 U/M52-91JujvkwzbdMercy Health Clermont Hospital AST [Catalytic activity/Vol]21 U/S10-58EutpdqmtuMercy Health Clermont Hospital Bilirubin [Mass/Vol]0.5 mg/dL0.2-1.0[facility] HospitalCalcium [Mass/Vol]9.4 mg/dL8.5-10.1FMedina HospitalChloride [Moles/Vol] 103 mmol/P65-824WvslomkriMercy Health Clermont HospitalCO2 [Moles/Vol]34.1 mmol/LHigh 21.0-32.0[facility] HospitalCobalamin (Vitamin B12) [Mass/Vol]1895 pg/mMAqehlroe453-7905BocgbirdfMercy Health Clermont HospitalComment on above: Performed at: - [facility] [address] [id number] Director: Larry Nicolas PhD, Phone: [phone] [Mass/Vol]1.33 mg/dLHigh0.55-1.02[facility] HospitalFerritin [Mass/Vol]108.0 ng/mL8.0-252.0[facility] HospitalGFR/1.73 sq M.predicted MDRD (S/P/Bld) [Vol rate/Area]47 mL/min/{1.73_m2}Low>=60 mL/min/1.73m 2FMedina HospitalGlucose [Mass/Vol]107 mg/rVShdh02-127QwnjsiauiMercy Health Clermont HospitalIron [Mass/Vol]82.0 ug/dL50.0-170.0[facility] HospitalPotassium [Moles/Vol]5.1 mmol/L3.5-5.1FMedina Hospital Protein [Mass/Vol]7.2 g/dL6.4-8.2FTriHealth Bethesda Butler Hospitalodium [Moles/Vol]141 mmol/N050-387SwbmgimaxMercy Health Clermont HospitalUrea nitrogen [Mass/Vol]29.0 mg/dLHigh7.0-18.0[facility] HospitalUrea nitrogen/Creatinine [Mass ratio]21.8 mg/mgMercy Health Clermont Hospital Laboratory - Hematology and Cell countson 48-44-4422VAI (Bld) [Velocity]28 mm/h <=30[facility] HospitalImmature granulocytes/100 WBC (Bld)0.7 % High0.0-0.5FMedina HospitalLeukocytes [#/volume] corrected for nucleated erythrocytes in Blood by Automated counon 63-35-1097TAM corrected for nucl RBC Auto (Bld) [#/Vol]8.1 10 3/uL4.0-11.0[facility] Lymphocytes Auto (Bld) [#/Vol]on 93-94-4978Rfvfojmjbsd (Bld) [#/Vol]2.9 10 3/uL 1.2-3.8[facility] HospitalLymphocytes/100 WBC Auto (Bld)on 16-37-4440Yyguibufkay/100 WBC (Bld)35.7 %20.5-60.0[facility] HospitalH Auto (RBC) [Entitic mass]on 28-74-2661SDO (RBC) [Entitic mass]30.2 pg 26.7-34.0[facility] HospitalMCHC Auto (RBC) [Mass/Vol]on 21-21-6281SUDI (RBC) [Mass/Vol]30.9 g/dL29.9-35.2FMedina HospitalMCV Auto (RBC) [Entitic vol]on 98-91-5497EJH (RBC) [Entitic vol]97.9 fL 81.0-99.0[facility] HospitalMonocytes Auto (Bld) [#/Vol]on 96-03-2879Thpfesmfj (Bld) [#/Vol]0.6 10 3/uL0.3-0.8[facility] HospitalMonocytes/100 WBC Auto (Bld)on 31-20-5122Tyqiutkkf/100 WBC (Bld)7.5 % 1.7-12.0[facility] HospitalNeutrophils Auto (Bld) [#/Vol]on 73-77-9099Dumsjhydmzh (Bld) [#/Vol]4.2 10 3/uL1.4-6.5FMedina HospitalNeutrophils/100 WBC Auto (Bld)on 29-29-6361Nnkshwuqsjv/100 WBC (Bld)51.4 % 43.0-75.0[facility] HospitalNo Panel Informationon 09-91-9645T- Reactive Protein, Quantitative<0.50 mg/dL<=0.50[facility] Eosinophils # (Auto)0.3 10 3/uL0.0-0.7FMedina HospitalImmature Granulocyte # (Auto)0.06 10 3/uLHigh0.00-0.03[facility] Platelet mean volume Auto (Bld) [Entitic vol]on 31-90-4785Dqwcfydy mean volume (Bld) [Entitic vol]9.9 fL9.5-13.5FMedina HospitalPlatelets Auto (Bld) [#/Vol]on 56-88-7765Ybdzogkzx (Bld) [#/Vol]318 10 3/sL204-984TpfdnaxuqMercy Health Clermont HospitalRBC Auto (Bld) [#/Vol]on 46-48-6432WVG (Bld) [#/Vol]3.87 10 6/uLLow4.20-5.40[facility] Medical Centererum or plasma albumin/globulin mass ratioon 13-03-3104Tfowpbz/Globulin [Mass ratio]1.1 {ratio} [facility] Medical Centererum or plasma anion gap determinationon 84-95-1312Fcxmv gap [Moles/Vol]9.0 mmol/LFMedina Hospital Estimated glomerular filtration rate (GFR) non- Americanon 08-01-2024 GFR/1.73 sq M.predicted among non-blacks MDRD (S/P/Bld) [Vol rate/Area]47 mL/min/{1.73_m2}Low>=60 mL/min/1.73m 2FMed[facility] Hospital Laboratory - Chemistry and Chemistry - challengeon 10-97-1493Bdpakzn [Mass/Vol] 9.3 mg/dL8.5-10.1FMedina HospitalChloride [Moles/Vol]104 mmol/L 98-107[facility] HospitalCO2 [Moles/Vol]27.8 mmol/L21.0-32.0 [facility] HospitalCreatinine [Mass/Vol]1.12 mg/dLHigh0.55-1.02 [facility] HospitalGFR/1.73 sq M.predicted MDRD (S/P/Bld) [Vol rate/Area]57 mL/min/{1.73_m2}Low>=60 mL/min/1.73m [address] [place], [place] [address]Glucose [Mass/Vol]108 mg/kVSjzk82-454RtsdrxodtMercy Health Clermont Hospital Natriuretic peptide B (Bld) [Mass/Vol]4619.0 pg/mLCritically high<=1800.0 [facility] HospitalComment on above:RESULTS CALLED TO TEVIN ELLIS Potassium [Moles/Vol]4.2 mmol/L3.5-5.1FTriHealth Bethesda Butler Hospitalodium [Moles/Vol]142 mmol/Y976-286SmhbndhvaMercy Health Clermont HospitalUrea nitrogen [Mass/Vol]16.0 mg/dL7.0-18.0[facility] HospitalUrea nitrogen/Creatinine [Mass ratio]14.3 mg/mgCincinnati Children's Hospital Medical Centererum or plasma anion gap determinationon 06-50-6506Hseoh gap [Moles/Vol]14.4 mmol/L [facility] HospitalBasophils Auto (Bld) [#/Vol]on 07-28-2024 Basophils (Bld) [#/Vol]Automated basophil count0.0-0.1FMedina HospitalBasophils (Bld) [#/Vol]0.0 10 3/uL0.0-0.1FMedina HospitalBasophils/100 WBC Auto (Bld)on 93-06-1750Mshktsmug/100 WBC (Bld)Automated basophil %0.2-2.0[facility] HospitalBasophils/100 WBC (Bld)0.4 % 0.2-2.0[facility] HospitalEosinophils/100 WBC Auto (Bld)on 59-85-7806Tiuafapivoe/100 WBC (Bld)Automated eosinophil %0.9-7.0[facility] HospitalEosinophils/100 WBC (Bld)1.0 %0.9-7.0[facility] HospitalErythrocyte distribution width Auto (RBC) [Ratio]on 07-28-2024 Erythrocyte distribution width (RBC) [Ratio]Erythrocyte distribution width [Ratio] by Automated count11.0-15.0[facility] HospitalErythrocyte distribution width (RBC) [Ratio]12.5 %11.0-15.0[facility] Estimated glomerular filtration rate (GFR) non- Americanon 07-28-2024 GFR/1.73 sq M.predicted among non-blacks MDRD (S/P/Bld) [Vol rate/Area]Estimated glomerular filtration rate (GFR) non- AmericanLow>=60 mL/min/1.73m 2 [facility] HospitalGFR/1.73 sq M.predicted among non-blacks MDRD (S/P/Bld) [Vol rate/Area]51 mL/min/{1.73_m2}Low>=60 mL/min/1.73m 2FMedina HospitalHematocrit Auto (Bld) [Volume fraction]on 07-28-2024 Hematocrit (Bld) [Volume fraction]Hematocrit [Volume Fraction] of Blood by Automated zvervZdx72.0-48.0[facility] HospitalHematocrit (Bld) [Volume fraction]31.0 %Low36.0-48.0[facility] HospitalHemoglobin [Mass/volume] in Bloodon 65-21-8205Imypyvbkvr (Bld) [Mass/Vol]Hemoglobin [Mass/volume] in BfpkiMlo82.0-16.0[facility] HospitalHemoglobin (Bld) [Mass/Vol]9.9 g/dLLow12.0-16.0[facility] HospitalLaboratory - Chemistry and Chemistry - challengeon 55-02-2602Zvhckbq [Mass/Vol]9.0 mg/dL 8.5-10.1FMedina HospitalChloride [Moles/Vol]110 mmol/LHigh 98-107[facility] HospitalCO2 [Moles/Vol]26.0 mmol/L21.0-32.0 [facility] HospitalCreatinine [Mass/Vol]1.05 mg/dLHigh0.55-1.02 [facility] HospitalGFR/1.73 sq M.predicted MDRD (S/P/Bld) [Vol rate/Area]mL/min/{1.73_m2}>=60 mL/min/1.73m 2F[facility] Hospital Glucose [Mass/Vol]112 mg/bHRvst00-676JsaizdzsrMercy Health Clermont HospitalPotassium [Moles/Vol]5.1 mmol/L3.5-5.1FTriHealth Bethesda Butler Hospitalodium [Moles/Vol] 144 mmol/E247-648DmmxzxtlcMercy Health Clermont HospitalUrea nitrogen [Mass/Vol]24.0 mg/dLHigh7.0-18.0[facility] HospitalUrea nitrogen/Creatinine [Mass ratio]22.9 mg/mgMercy Health Clermont HospitalLaboratory - Hematology and Cell countson 88-38-4261Lkjovavj granulocytes/100 WBC (Bld)0.8 %High0.0-0.5 [facility] HospitalLeukocytes [#/volume] corrected for nucleated erythrocytes in Blood by Automated counon 88-25-3287VFC corrected for nucl RBC Auto (Bld) [#/Vol]Leukocytes [#/volume] corrected for nucleated erythrocytes in Blood by Automated coun4.0-11.0[facility] HospitalWBC corrected for nucl RBC Auto (Bld) [#/Vol]7.4 10 3/uL4.0-11.0[facility] HospitalLymphocytes Auto (Bld) [#/Vol]on 54-65-7899Lqazvhvixzd (Bld) [#/Vol] Lymphocytes [#/volume] in Blood by Automated count1.2-3.8[facility] HospitalLymphocytes (Bld) [#/Vol]1.9 10 3/uL1.2-3.8[facility] HospitalLymphocytes/100 WBC Auto (Bld)on 84-30-6993Sbzupryqone/100 WBC (Bld)Lymphocytes/100 leukocytes in Blood by Automated count20.5-60.0[facility] HospitalLymphocytes/100 WBC (Bld)25.3 %20.5-60.0[facility] HospitalH Auto (RBC) [Entitic mass]on 98-01-3068EEW (RBC) [Entitic mass]MCH [Entitic mass] by Automated count26.7-34.0[facility] (RBC) [Entitic mass]31.0 pg26.7-34.0[facility] HospitalHC Auto (RBC) [Mass/Vol]on 57-00-8244TVFK (RBC) [Mass/Vol]MCHC [Mass/volume] by Automated count29.9-35.2FMedina HospitalMCHC (RBC) [Mass/Vol]31.9 g/dL29.9-35.2FMedina HospitalMCV Auto (RBC) [Entitic vol]on 07-40-8290VLE (RBC) [Entitic vol]MCV [Entitic volume] by Automated count81.0-99.0[facility] HospitalMCV (RBC) [Entitic vol] 97.2 fL81.0-99.0[facility] HospitalMonocytes Auto (Bld) [#/Vol]on 49-70-2788Cgamhigtm (Bld) [#/Vol]Automated blood monocyte count0.3-0.8[facility] HospitalMonocytes (Bld) [#/Vol]0.4 10 3/uL0.3-0.8[facility] HospitalMonocytes/100 WBC Auto (Bld)on 65-37-6078Usfoktooq/100 WBC (Bld)Automated monocyte %1.7-12.0[facility] Monocytes/100 WBC (Bld)5.6 %1.7-12.0[facility] HospitalNeutrophils Auto (Bld) [#/Vol]on 85-06-0943Ouhouzivjtc (Bld) [#/Vol]Neutrophils [#/volume] in Blood by Automated count1.4-6.5FMedina HospitalNeutrophils (Bld) [#/Vol]4.9 10 3/uL1.4-6.5FMedina HospitalNeutrophils/100 WBC Auto (Bld)on 69-97-2145Viexjlwyzzm/100 WBC (Bld)Automated neutrophil % 43.0-75.0[facility] HospitalNeutrophils/100 WBC (Bld)66.9 % 43.0-75.0[facility] HospitalNo Panel Informationon 07-28-2024 Eosinophils # (Auto)0.1 10 3/uL0.0-0.7FMedina HospitalImmature Granulocyte # (Auto)0.06 10 3/uLHigh0.00-0.03[facility] Platelet mean volume Auto (Bld) [Entitic vol]on 66-66-7477Badewxsg mean volume (Bld) [Entitic vol]Platelet mean volume [Entitic volume] in Blood by Automated count9.5-13.5FMedina HospitalPlatelet mean volume (Bld) [Entitic vol]10.5 fL9.5-13.5FMedina HospitalPlatelets Auto (Bld) [#/Vol]on 72-00-7305Xwpcpwjlj (Bld) [#/Vol]Platelets [#/volume] in Blood by Automated -627QzpdzylhvMercy Health Clermont HospitalPlatelets (Bld) [#/Vol]164 10 3/aF337-629YgxhbavohMercy Health Clermont HospitalRBC Auto (Bld) [#/Vol] on 11-07-2005ZTY (Bld) [#/Vol]Erythrocytes [#/volume] in Blood by Automated countLow4.20-5.40[facility] HospitalRBC (Bld) [#/Vol]3.19 10 6/uL Low4.20-5.40[facility] Medical Centererum or plasma anion gap determinationon 98-86-6928Jmmih gap [Moles/Vol]Serum or plasma anion gap determinationMercy Health Clermont HospitalAnion gap [Moles/Vol]13.1 mmol/L [facility] HospitalErythrocyte distribution width Auto (RBC) [Ratio]on 06-37-2864Vqmeqvzpnbw distribution width (RBC) [Ratio]Erythrocyte distribution width [Ratio] by Automated count11.0-15.0[facility] HospitalErythrocyte distribution width (RBC) [Ratio]12.6 %11.0-15.0[facility] HospitalEstimated glomerular filtration rate (GFR) non- Americanon 12-66-0466LBO/1.73 sq M.predicted among non-blacks MDRD (S/P/Bld) [Vol rate/Area]Estimated glomerular filtration rate (GFR) non- Low>=60 mL/min/1.73m 2FMedina HospitalGFR/1.73 sq M.predicted among non-blacks MDRD (S/P/Bld) [Vol rate/Area]35 mL/min/{1.73_m2}Low>=60 mL/min/1.73m 2FMedina HospitalHematocrit Auto (Bld) [Volume fraction]on 94-22-4869Phfkcvhwgo (Bld) [Volume fraction]Hematocrit [Volume Fraction] of Blood by Automated aafraIug78.0-48.0[facility] HospitalHematocrit (Bld) [Volume fraction]29.5 %Low36.0-48.0[facility] HospitalHemoglobin [Mass/volume] in Bloodon [id number] (Bld) [Mass/Vol]Hemoglobin [Mass/volume] in ZicojVdv37.0-16.0[facility] HospitalHemoglobin (Bld) [Mass/Vol]9.4 g/dLLow12.0-16.0[facility] HospitalLaboratory - Chemistry and Chemistry - challengeon 07-27-2024 Calcium [Mass/Vol]9.1 mg/dL8.5-10.1FMedina HospitalChloride [Moles/Vol]110 mmol/KEhqj04-980OngivlpayMercy Health Clermont HospitalCO2 [Moles/Vol] 29.1 mmol/L21.0-32.0[facility] HospitalCreatinine [Mass/Vol]1.46 mg/dLHigh0.55-1.02[facility] HospitalGFR/1.73 sq M.predicted MDRD (S/P/Bld) [Vol rate/Area]42 mL/min/{1.73_m2}Low>=60 mL/min/1.73m 2FMedina HospitalGlucose [Mass/Vol]114 mg/sIGplj88-353KnrepioomMercy Health Clermont HospitalPotassium [Moles/Vol]5.6 mmol/LHigh3.5-5.1FTriHealth Bethesda Butler Hospitalodium [Moles/Vol]144 mmol/N040-888DdgqtqertMercy Health Clermont HospitalUrea nitrogen [Mass/Vol]46.0 mg/dLHigh7.0-18.0[facility] HospitalUrea nitrogen/Creatinine [Mass ratio]31.5 mg/mgMercy Health Clermont HospitalLeukocytes [#/volume] corrected for nucleated erythrocytes in Blood by Automated counon 76-18-4541ANW corrected for nucl RBC Auto (Bld) [#/Vol] Leukocytes [#/volume] corrected for nucleated erythrocytes in Blood by Automated coun4.0-11.0[facility] HospitalWBC corrected for nucl RBC Auto (Bld) [#/Vol]6.2 10 3/uL4.0-11.0[facility] Auto (RBC) [Entitic mass]on 75-37-6441SSA (RBC) [Entitic mass]MCH [Entitic mass] by Automated count26.7-34.0[facility] HospitalH (RBC) [Entitic mass]30.6 pg26.7-34.0[facility] HospitalHC Auto (RBC) [Mass/Vol] on 66-94-7810EVFR (RBC) [Mass/Vol]MCHC [Mass/volume] by Automated count29.9-35.2 [facility] HospitalHC (RBC) [Mass/Vol]31.9 g/dL29.9-35.2 [facility] HospitalV Auto (RBC) [Entitic vol]on 92-89-9337ZFI (RBC) [Entitic vol]MCV [Entitic volume] by Automated count81.0-99.0[facility] HospitalV (RBC) [Entitic vol]96.1 fL81.0-99.0[facility] HospitalPlatelet mean volume Auto (Bld) [Entitic vol]on 95-94-9318Mcnrcbrf mean volume (Bld) [Entitic vol]Platelet mean volume [Entitic volume] in Blood by Automated count9.5-13.5FMedina HospitalPlatelet mean volume (Bld) [Entitic vol]10.1 fL9.5-13.5FMedina HospitalPlatelets Auto (Bld) [#/Vol]on 23-65-6179Raxodbruw (Bld) [#/Vol]Platelets [#/volume] in Blood by Automated adets349-279QvtraezgeMercy Health Clermont HospitalPlatelets (Bld) [#/Vol]178 10 3/mD786-096QedshcmnbMercy Health Clermont HospitalRBC Auto (Bld) [#/Vol] on 18-63-2348SQB (Bld) [#/Vol]Erythrocytes [#/volume] in Blood by Automated countLow4.20-5.40[facility] HospitalRBC (Bld) [#/Vol]3.07 10 6/uL Low4.20-5.40[facility] Medical Centererum or plasma anion gap determinationon 03-49-9599Dwtmr gap [Moles/Vol]Serum or plasma anion gap determinationMercy Health Clermont HospitalAnion gap [Moles/Vol]10.5 mmol/L [facility] HospitalErythrocyte distribution width Auto (RBC) [Ratio]on 92-00-7946Kafsbdivbvc distribution width (RBC) [Ratio]Erythrocyte distribution width [Ratio] by Automated count11.0-15.0[facility] HospitalErythrocyte distribution width (RBC) [Ratio]13.0 %11.0-15.0[facility] HospitalEstimated glomerular filtration rate (GFR) non- Americanon 30-68-0898BHC/1.73 sq M.predicted among non-blacks MDRD (S/P/Bld) [Vol rate/Area]Estimated glomerular filtration rate (GFR) non- Low>=60 mL/min/1.73m 2FMedina HospitalGFR/1.73 sq M.predicted among non-blacks MDRD (S/P/Bld) [Vol rate/Area]15 mL/min/{1.73_m2}Low>=60 mL/min/1.73m 2FMedina HospitalHematocrit Auto (Bld) [Volume fraction]on 11-10-1001Izjsnxsbwd (Bld) [Volume fraction]Hematocrit [Volume Fraction] of Blood by Automated mcefdZwz79.0-48.0[facility] HospitalHematocrit (Bld) [Volume fraction]29.7 %Low36.0-48.0[facility] HospitalHemoglobin [Mass/volume] in Bloodon 06-37-7342Jlcjjksuao (Bld) [Mass/Vol]Hemoglobin [Mass/volume] in NtxtfRbs21.0-16.0[facility] HospitalHemoglobin (Bld) [Mass/Vol]9.4 g/dLLow12.0-16.0[facility] HospitalLaboratory - Chemistry and Chemistry - challengeon 07-26-2024 Potassium [Moles/Vol]5.3 mmol/LHigh3.5-5.1FMedina Hospital Calcium [Mass/Vol]8.9 mg/dL8.5-10.1FMedina HospitalChloride [Moles/Vol]106 mmol/X85-608AjzqvrrcoMercy Health Clermont HospitalCO2 [Moles/Vol]27.2 mmol/L21.0-32.0[facility] HospitalCreatinine [Mass/Vol]3.07 mg/dL High0.55-1.02[facility] HospitalGFR/1.73 sq M.predicted MDRD (S/P/Bld) [Vol rate/Area]18 mL/min/{1.73_m2}Low>=60 mL/min/1.73m 2FMedina HospitalGlucose [Mass/Vol]113 mg/hJKrim91-912NgxveyclqCincinnati Children's Hospital Medical Centerodium [Moles/Vol]141 mmol/M590-876GgfhvgpdsMercy Health Clermont HospitalUrea nitrogen [Mass/Vol]78.0 mg/dLCritically high7.0-18.0[facility] HospitalComment on above:RESULTS CALLED TO LAURE NELSON RN @BY Maria Victoria Pearl 0617Urea nitrogen/Creatinine [Mass ratio]25.4 mg/mg [facility] HospitalLeukocytes [#/volume] corrected for nucleated erythrocytes in Blood by Automated counon 60-97-0562ZDN corrected for nucl RBC Auto (Bld) [#/Vol]Leukocytes [#/volume] corrected for nucleated erythrocytes in Blood by Automated coun4.0-11.0[facility] HospitalWBC corrected for nucl RBC Auto (Bld) [#/Vol]7.2 10 3/uL4.0-11.0[facility] Auto (RBC) [Entitic mass]on 88-12-7246PCO (RBC) [Entitic mass]MCH [Entitic mass] by Automated count26.7-34.0[facility] (RBC) [Entitic mass]31.0 pg26.7-34.0[facility] HospitalHC Auto (RBC) [Mass/Vol]on 15-73-6193IRJA (RBC) [Mass/Vol]MCHC [Mass/volume] by Automated count29.9-35.2FCleveland ClinicHC (RBC) [Mass/Vol] 31.6 g/dL29.9-35.2FMedina HospitalMCV Auto (RBC) [Entitic vol] on 32-38-4372ZMW (RBC) [Entitic vol]MCV [Entitic volume] by Automated count 81.0-99.0[facility] HospitalMCV (RBC) [Entitic vol]98.0 fL 81.0-99.0[facility] HospitalPlatelet mean volume Auto (Bld) [Entitic vol]on 29-80-4395Yytjyjkr mean volume (Bld) [Entitic vol]Platelet mean volume [Entitic volume] in Blood by Automated count9.5-13.5FMedina HospitalPlatelet mean volume (Bld) [Entitic vol]10.0 fL9.5-13.5FMedina HospitalPlatelets Auto (Bld) [#/Vol]on 40-28-5038Iyhlxyurp (Bld) [#/Vol]Platelets [#/volume] in Blood by Automated blket689-019UemcdxrztMercy Health Clermont HospitalPlatelets (Bld) [#/Vol]185 10 3/jB375-106PaoghqdcvMercy Health Clermont HospitalRBC Auto (Bld) [#/Vol]on 65-47-2452XSJ (Bld) [#/Vol]Erythrocytes [#/volume] in Blood by Automated countLow4.20-5.40[facility] HospitalRBC (Bld) [#/Vol]3.03 10 6/uLLow4.20-5.40[facility] Serum or plasma anion gap determinationon 43-63-8635Ebpyg gap [Moles/Vol]Serum or plasma anion gap determinationMercy Health Clermont HospitalAnion gap [Moles/Vol]13.6 mmol/LFMedina HospitalBasophils Auto (Bld) [#/Vol]on 13-15-8829Byowwiplq (Bld) [#/Vol]Automated basophil count0.0-0.1 [facility] HospitalBasophils (Bld) [#/Vol]0.0 10 3/uL0.0-0.1 [facility] HospitalBasophils/100 WBC Auto (Bld)on 07-25-2024 Basophils/100 WBC (Bld)Automated basophil %0.2-2.0[facility] HospitalBasophils/100 WBC (Bld)0.4 %0.2-2.0[facility] Eosinophils/100 WBC Auto (Bld)on 71-05-8167Zuicgicdyqr/100 WBC (Bld)Automated eosinophil %0.9-7.0[facility] HospitalEosinophils/100 WBC (Bld)3.4 %0.9-7.0[facility] HospitalErythrocyte distribution width Auto (RBC) [Ratio]on 57-45-3598Rwtltulgvaz distribution width (RBC) [Ratio] Erythrocyte distribution width [Ratio] by Automated count11.0-15.0[facility] HospitalErythrocyte distribution width (RBC) [Ratio]12.9 % 11.0-15.0[facility] HospitalEstimated glomerular filtration rate (GFR) non- Americanon 16-49-6630TBA/1.73 sq M.predicted among non-blacks MDRD (S/P/Bld) [Vol rate/Area]Estimated glomerular filtration rate (GFR) non- AmericanLow>=60 mL/min/1.73m 2FMedina HospitalGFR/1.73 sq M.predicted among non-blacks MDRD (S/P/Bld) [Vol rate/Area]11 mL/min/{1.73_m2}Low>=60 mL/min/1.73m [address] [place], [place] [address]Globulin Calc (S) [Mass/Vol]on 34-36-8728Uhehhjqr (S) [Mass/Vol]Serum globulin measurement by calculation (mass/volume)[facility] Globulin (S) [Mass/Vol]3.3 g/dLMercy Health Clermont HospitalHematocrit Auto (Bld) [Volume fraction]on 06-32-0951Cuidvlkfgg (Bld) [Volume fraction]Hematocrit [Volume Fraction] of Blood by Automated seaokWrm16.0-48.0[facility] HospitalHematocrit (Bld) [Volume fraction]32.0 %Low36.0-48.0[facility] HospitalHemoglobin [Mass/volume] in Bloodon 77-68-1890Ppmtonmmmt (Bld) [Mass/Vol]Hemoglobin [Mass/volume] in CwaetZyx77.0-16.0[facility] HospitalHemoglobin (Bld) [Mass/Vol]10.3 g/dLLow12.0-16.0[facility] HospitalLaboratory - Chemistry and Chemistry - challengeon 07-25-2024 Potassium [Moles/Vol]5.8 mmol/LHigh3.5-5.1FMedina Hospital Albumin [Mass/Vol]3.5 g/dL3.4-5.0[facility] HospitalALP [Catalytic activity/Vol]81 U/O72-508HrclxiuzaMercy Health Clermont HospitalALT [Catalytic activity/Vol]15 U/J21-61VgdlpghtoMercy Health Clermont HospitalAST [Catalytic activity/Vol]18 U/E51-72DqmscsfyyMercy Health Clermont HospitalBilirubin [Mass/Vol]0.3 mg/dL0.2-1.0[facility] HospitalCalcium [Mass/Vol]9.3 mg/dL 8.5-10.1FMedina HospitalChloride [Moles/Vol]100 mmol/L98-107 [facility] HospitalCO2 [Moles/Vol]28.3 mmol/L21.0-32.0[facility] HospitalCreatinine [Mass/Vol]3.88 mg/dLHigh0.55-1.02[facility] HospitalGFR/1.73 sq M.predicted MDRD (S/P/Bld) [Vol rate/Area]14 mL/min/{1.73_m2}Low>=60 mL/min/1.73m 2FMedina HospitalGlucose [Mass/Vol]112 mg/vPQclg04-580YyukpbcwqMercy Health Clermont HospitalProtein [Mass/Vol] 6.8 g/dL6.4-8.2FTriHealth Bethesda Butler Hospitalodium [Moles/Vol]136 mmol/L 136-145Mer[facility] HospitalUrea nitrogen [Mass/Vol]83.0 mg/dL Critically high7.0-18.0[facility] HospitalComment on above:RESULTS CALLED TO Melissa Gupta RNUrea nitrogen/Creatinine [Mass ratio]21.4 mg/mg [facility] HospitalTS Qn1.217 m[IU]/L0.358-3.740[facility] HospitalLaboratory - Hematology and Cell countson 07-25-2024 Immature granulocytes/100 WBC (Bld)0.4 %0.0-0.5FMedina Hospital Leukocytes [#/volume] corrected for nucleated erythrocytes in Blood by Automated counon 32-42-5177JAW corrected for nucl RBC Auto (Bld) [#/Vol]Leukocytes [#/volume] corrected for nucleated erythrocytes in Blood by Automated coun 4.0-11.0[facility] HospitalWBC corrected for nucl RBC Auto (Bld) [#/Vol]10.9 10 3/uL4.0-11.0[facility] HospitalLymphocytes Auto (Bld) [#/Vol]on 36-71-7258Cnwrsqgwwun (Bld) [#/Vol]Lymphocytes [#/volume] in Blood by Automated count1.2-3.8[facility] HospitalLymphocytes (Bld) [#/Vol]2.5 10 3/uL1.2-3.8[facility] HospitalLymphocytes/100 WBC Auto (Bld)on 18-01-5265Lcrcybyisml/100 WBC (Bld)Lymphocytes/100 leukocytes in Blood by Automated count20.5-60.0[facility] Lymphocytes/100 WBC (Bld)22.4 %20.5-60.0[facility] HospitalH Auto (RBC) [Entitic mass]on 82-43-4660GTN (RBC) [Entitic mass]MCH [Entitic mass] by Automated count26.7-34.0[facility] HospitalH (RBC) [Entitic mass]31.2 pg26.7-34.0[facility] HospitalMCHC Auto (RBC) [Mass/Vol] on 35-51-4402BHIN (RBC) [Mass/Vol]MCHC [Mass/volume] by Automated count29.9-35.2 [facility] HospitalMCHC (RBC) [Mass/Vol]32.2 g/dL29.9-35.2 [facility] HospitalMCV Auto (RBC) [Entitic vol]on 83-97-2700GIG (RBC) [Entitic vol]MCV [Entitic volume] by Automated count81.0-99.0[facility] HospitalMCV (RBC) [Entitic vol]97.0 fL81.0-99.0[facility] HospitalMonocytes Auto (Bld) [#/Vol]on 85-07-7742Bmmiwxqmd (Bld) [#/Vol] Automated blood monocyte count0.3-0.8[facility] HospitalMonocytes (Bld) [#/Vol]0.7 10 3/uL0.3-0.8[facility] HospitalMonocytes/100 WBC Auto (Bld)on 38-61-8486Qyrrbixvh/100 WBC (Bld)Automated monocyte %1.7-12.0 [facility] HospitalMonocytes/100 WBC (Bld)6.3 %1.7-12.0[facility] HospitalNeutrophils Auto (Bld) [#/Vol]on 97-39-2823Odhofmoumir (Bld) [#/Vol]Neutrophils [#/volume] in Blood by Automated countHigh1.4-6.5 [facility] HospitalNeutrophils (Bld) [#/Vol]7.3 10 3/uLHigh1.4-6.5 [facility] HospitalNeutrophils/100 WBC Auto (Bld)on 07-25-2024 Neutrophils/100 WBC (Bld)Automated neutrophil %43.0-75.0[facility] HospitalNeutrophils/100 WBC (Bld)67.1 %43.0-75.0[facility] HospitalNo Panel Informationon 36-09-4848Xpyndqjb I High Sensitivity9.5 pg/mL 4.0-51.3FMedina HospitalComment on above:CUT-OFF POINTS HAVE BEEN ESTABLISHED [...] DIAGNOSTIC AND CLINICAL INFORMATION.Eosinophils # (Auto)0.4 10 3/uL0.0-0.7FMedina HospitalImmature Granulocyte # (Auto)0.04 10 3/uLHigh0.00-0.03[facility] HospitalPlatelet mean volume Auto (Bld) [Entitic vol]on 61-55-5787Earjifur mean volume (Bld) [Entitic vol]Platelet mean volume [Entitic volume] in Blood by Automated count9.5-13.5 [facility] HospitalPlatelet mean volume (Bld) [Entitic vol]10.5 fL 9.5-13.5FMedina HospitalPlatelets Auto (Bld) [#/Vol]on 13-78-2808Jfykdzyhy (Bld) [#/Vol]Platelets [#/volume] in Blood by Automated paqhm365-378NlnlcdgudMercy Health Clermont HospitalPlatelets (Bld) [#/Vol]233 10 3/uL 150-450Mer[facility] HospitalRBC Auto (Bld) [#/Vol]on 28-84-1939FVP (Bld) [#/Vol]Erythrocytes [#/volume] in Blood by Automated countLow4.20-5.40 [facility] HospitalRBC (Bld) [#/Vol]3.30 10 6/uLLow4.20-5.40 [facility] Medical Centererum or plasma albumin/globulin mass ratioon 21-89-3300Xhrpyvy/Globulin [Mass ratio]Serum or plasma albumin/globulin mass ratioMercy Health Clermont HospitalAlbumin/Globulin [Mass ratio]1.1 {ratio} [facility] Medical Centererum or plasma anion gap determinationon 21-61-0444Xohoz gap [Moles/Vol]Serum or plasma anion gap determinationMercy Health Clermont HospitalAnion gap [Moles/Vol]13.9 mmol/LFMedina HospitalX-ray reportOrdered By: Wale Wilburn on 99-89-9382Nonkp report [facility] [address] [place] [address] XRay Report Signed Patient: Catherine Tang MR# : [id number] : 1945 Acct:[id number] Age/Sex: 79 / F ADM Date: 5 [place] [facility] [place] [facility] [facility]: Paty Booth MD Copies to: [...] Wale Wilburn M.D.06/27/2024 7:49 PM Dictation Location: [place] [address] Transcribed By: [facility] 06/27/241948 Dictated By: Wale Wilburn DO 06/27/241947 Signed By: 06/27/241948 [facility] HospitalXR wrist LT min 3V*on 80-49-3214LP wrist LT min 3V*[facility] [address] [place] [address] XRay Report Signed Patient: Catherine Tang MR#: [id number] : 1945 Acct:[id number] Age/Sex: 79 / F ADM Date: 06/27/24 [place] [facility] [place] [facility]: [facility]: Paty Booth MD Copies to: [...] Wale Wilburn M.D.06/27/2024 7:49 PM Dictation Location: [place] [address] Transcribed By: [facility] 06/27/241948 Dictated By: Wale Wilburn DO 06/27/241947 Signed By: 06/27/241948[facility] Physician GroupBasophils Auto (Bld) [#/Vol]on 57-98-5281Fnafrjxso (Bld) [#/Vol]Automated basophil count0.0-0.1FMedina HospitalBasophils/100 WBC Auto (Bld)on 84-85-4869Adcllddbc/100 WBC (Bld)Automated basophil %0.2-2.0[facility] Eosinophils/100 WBC Auto (Bld)on 55-42-8961Upnnxirjmxz/100 WBC (Bld)Automated eosinophil %0.9-7.0[facility] HospitalErythrocyte distribution width Auto (RBC) [Ratio]on 31-58-8374Qddtqcoiabm distribution width (RBC) [Ratio]Erythrocyte distribution width [Ratio] by Automated count11.0-15.0 [facility] HospitalEstimated glomerular filtration rate (GFR) non- Americanon 71-57-4604UDK/1.73 sq M.predicted among non-blacks MDRD (S/P/Bld) [Vol rate/Area]Estimated glomerular filtration rate (GFR) non- AmericanLow>=60 mL/min/1.73m 2FMedina HospitalGlobulin Calc (S) [Mass/Vol]on 39-17-3910Xajewzer (S) [Mass/Vol]Serum globulin measurement by calculation (mass/volume)[facility] HospitalHematocrit Auto (Bld) [Volume fraction]on 81-71-3142Shgtakfnpq (Bld) [Volume fraction]Hematocrit [Volume Fraction] of Blood by Automated blxrhOzz56.0-48.0[facility] HospitalHemoglobin [Mass/volume] in Bloodon 90-37-3931Ivgsoakyqh (Bld) [Mass/Vol]Hemoglobin [Mass/volume] in KajwyNhh47.0-16.0[facility] HospitalIron binding capacity [Mass/volume] in Serum or Plasmaon 44-49-2944Jqip binding capacity [Mass/Vol]Iron binding capacity [Mass/volume] in Serum or Kqknvd888.0-450.0[facility] HospitalIron saturation [Mass Fraction] in Serum or Plasmaon 70-57-8995Kulr saturation [Mass fraction] Iron saturation [Mass Fraction] in Serum or PlasmaMercy Health Clermont HospitalLaboratory - Chemistry and Chemistry - challengeon 50-58-2454Yngaizv [Mass/Vol]3.4 g/dL3.4-5.0[facility] HospitalALP [Catalytic activity/Vol]72 U/U35-502JhwliacweMercy Health Clermont HospitalALT [Catalytic activity/Vol]28 U/T74-28UcefsjpybMercy Health Clermont HospitalAST [Catalytic activity/Vol]24 U/Q91-12AhfbmihqcMercy Health Clermont HospitalBilirubin [Mass/Vol]0.4 mg/dL0.2-1.0[facility] HospitalCalcium [Mass/Vol]8.8 mg/dL 8.5-10.1FMedina HospitalChloride [Moles/Vol]107 mmol/L98-107 [facility] HospitalCO2 [Moles/Vol]30.8 mmol/L21.0-32.0[facility] HospitalCobalamin (Vitamin B12) [Mass/Vol]1568 pg/mLAbnormal 232-1245Mer[facility] HospitalComment on above:Performed at: - [facility] [address] [id number] Director: Larry Nicolas PhD, Phone: [phone] [Mass/Vol]1.35 mg/dLHigh0.55-1.02 [facility] HospitalFerritin [Mass/Vol]79.0 ng/mL8.0-252.0[facility] HospitalGFR/1.73 sq M.predicted MDRD (S/P/Bld) [Vol rate/Area]46 mL/min/{1.73_m2}Low>=60 mL/min/1.73m 2FMedina HospitalGlucose [Mass/Vol]109 mg/uCAnhg76-663IbwkbdffrMercy Health Clermont HospitalIron [Mass/Vol] 86.0 ug/dL50.0-170.0[facility] HospitalPotassium [Moles/Vol]4.6 mmol/L3.5-5.1FMedina HospitalProtein [Mass/Vol]6.6 g/dL6.4-8.2 [facility] Medical Centerodium [Moles/Vol]145 mmol/Q199-196DjeqqtrgmMercy Health Clermont HospitalTSH Qn1.743 m[IU]/L0.358-3.740[facility] HospitalUrea nitrogen [Mass/Vol]21.0 mg/dLHigh7.0-18.0[facility] HospitalUrea nitrogen/Creatinine [Mass ratio]15.6 mg/mgMercy Health Clermont HospitalLaboratory - Hematology and Cell countson 69-09-3054Yfbvomqi granulocytes/100 WBC (Bld)0.3 %0.0-0.5FMedina Hospital Leukocytes [#/volume] corrected for nucleated erythrocytes in Blood by Automated counon 09-20-9562OKY corrected for nucl RBC Auto (Bld) [#/Vol]Leukocytes [#/volume] corrected for nucleated erythrocytes in Blood by Automated coun 4.0-11.0[facility] HospitalLymphocytes Auto (Bld) [#/Vol]on 66-00-4385Nbtxbsmazfh (Bld) [#/Vol]Lymphocytes [#/volume] in Blood by Automated count1.2-3.8[facility] HospitalLymphocytes/100 WBC Auto (Bld)on 18-17-2263Nihfqoilgyn/100 WBC (Bld)Lymphocytes/100 leukocytes in Blood by Automated count20.5-60.0[facility] HospitalMCH Auto (RBC) [Entitic mass]on 30-74-8561TSO (RBC) [Entitic mass]MCH [Entitic mass] by Automated count 26.7-34.0[facility] HospitalMCHC Auto (RBC) [Mass/Vol]on 90-07-5080OUTW (RBC) [Mass/Vol]MCHC [Mass/volume] by Automated count29.9-35.2 [facility] HospitalMCV Auto (RBC) [Entitic vol]on 58-32-2557PYW (RBC) [Entitic vol]MCV [Entitic volume] by Automated count81.0-99.0[facility] HospitalMonocytes Auto (Bld) [#/Vol]on 16-59-1124Yjsrpqbdr (Bld) [#/Vol]Automated blood monocyte count0.3-0.8[facility] Monocytes/100 WBC Auto (Bld)on 67-41-1016Czqvzhzmm/100 WBC (Bld)Automated monocyte %1.7-12.0[facility] HospitalNeutrophils Auto (Bld) [#/Vol]on 89-64-5042Foovbwsbdqe (Bld) [#/Vol]Neutrophils [#/volume] in Blood by Automated count1.4-6.5FMedina HospitalNeutrophils/100 WBC Auto (Bld)on 83-21-6209Darmpjqnigx/100 WBC (Bld)Automated neutrophil %43.0-75.0 [facility] HospitalNo Panel Informationon 19-12-631219019871-Kflcsmq Vitamin D Total57.6 ng/mLMercy Health Clermont HospitalComment on above:<20 ng/mL Vit D wgwimugnd22-<30 ng/mL Vit D jeebshwdkgbd75-513 ng/mL Vit D sufficient>100 ng/mL Potential ToxicityEosinophils # (Auto)0.3 10 3/uL0.0-0.7 [facility] HospitalImmature Granulocyte # (Auto)0.02 10 3/uL 0.00-0.03[facility] HospitalPlatelet mean volume Auto (Bld) [Entitic vol]on 60-55-5868Uzxhgmfx mean volume (Bld) [Entitic vol]Platelet mean volume [Entitic volume] in Blood by Automated count9.5-13.5FMedina HospitalPlatelets Auto (Bld) [#/Vol]on 84-02-9910Qgaautyec (Bld) [#/Vol] Platelets [#/volume] in Blood by Automated deauc171-782OxpompcmxMercy Health Clermont HospitalRBC Auto (Bld) [#/Vol]on 08-38-9253GBQ (Bld) [#/Vol]Erythrocytes [#/volume] in Blood by Automated countLow4.20-5.40[facility] Medical Centererum or plasma albumin/globulin mass ratioon 91-22-0610Nrzbuix/Globulin [Mass ratio]Serum or plasma albumin/globulin mass ratioCincinnati Children's Hospital Medical Centererum or plasma anion gap determinationon 87-76-8071Hkpze gap [Moles/Vol]Serum or plasma anion gap determinationMercy Health Clermont HospitalAlbumin [Mass/volume] in Serum or Plasmaon 13-60-7622Rywqons [Mass/Vol]3.7 g/dL2.9-4.4FMedina HospitalBasophils Auto (Bld) [#/Vol]on 97-19-2263Ihmpgsrzj (Bld) [#/Vol]0.1 10 3/uL0.0-0.1FMedina HospitalBasophils/100 WBC Auto (Bld)on 17-28-6021Jtovyhcfu/100 WBC (Bld)0.7 % 0.2-2.0[facility] HospitalEosinophils/100 WBC Auto (Bld)on 32-86-5028Jpxsxvxutzo/100 WBC (Bld)2.3 %0.9-7.0[facility] Erythrocyte distribution width Auto (RBC) [Ratio]on 83-73-0699Gwhnhdgilql distribution width (RBC) [Ratio]13.1 %11.0-15.0[facility] Estimated glomerular filtration rate (GFR) non- Americanon 06-15-2023 GFR/1.73 sq M.predicted among non-blacks MDRD (S/P/Bld) [Vol rate/Area]40 mL/min/{1.73_m2}>=60[facility] HospitalGlobulin Calc (S) [Mass/Vol]on 04-84-3289Uxtwvvjt (S) [Mass/Vol]3.7 g/dLMercy Health Clermont HospitalHematocrit Auto (Bld) [Volume fraction]on 28-56-2047Dgfiymzteo (Bld) [Volume fraction]39.7 %36.0-48.0[facility] HospitalHemoglobin [Mass/volume] in Bloodon 13-09-6552Ssqkwpeauj (Bld) [Mass/Vol]12.1 g/dL12.0-16.0 [facility] HospitalIgA [Mass/volume] in Serum or Plasmaon 67-85-1172SuV [Mass/Vol]195 mg/kM74-388QlrrvkbodMercy Health Clermont HospitalIgG [Mass/volume] in Serum or Plasmaon 80-43-0205NdD [Mass/Vol]865 mg/xF150-9175 [facility] HospitalIgM [Mass/volume] in Serum or Plasmaon 01-90-2765SaY [Mass/Vol]54 mg/vT67-099WjjxddvfvMercy Health Clermont HospitalIron binding capacity [Mass/volume] in Serum or Plasmaon 33-62-0798Smff binding capacity [Mass/Vol]330.0 ug/dL250.0-450.0[facility] HospitalIron saturation [Mass Fraction] in Serum or Plasmaon 30-77-4187Gnou saturation [Mass fraction]29.7 %[facility] HospitalLaboratory - Chemistry and Chemistry - challengeon 55-15-5432ASZ [Catalytic activity/Vol]85 U/L46-116 [facility] HospitalALT [Catalytic activity/Vol]17 U/L14-59 [facility] HospitalAST [Catalytic activity/Vol]20 U/L15-37 [facility] HospitalBilirubin [Mass/Vol]0.4 mg/dL0.2-1.0[facility] HospitalCalcium [Mass/Vol]10.0 mg/dL8.5-10.1FMedina HospitalChloride [Moles/Vol]101 mmol/Q75-248HatvzykekMercy Health Clermont HospitalCO2 [Moles/Vol]29.7 mmol/L21.0-32.0[facility] Creatinine [Mass/Vol]1.29 mg/dL0.55-1.02[facility] Ferritin [Mass/Vol]168.0 ng/mL8.0-252.0[facility] HospitalGFR/1.73 sq M.predicted MDRD (S/P/Bld) [Vol rate/Area]48 mL/min/{1.73_m2}>=60[facility] HospitalGlucose [Mass/Vol]174 mg/nR46-777EkbnqexdeMercy Health Clermont HospitalIron [Mass/Vol]98.0 ug/dL50.0-170.0[facility] HospitalLDH [Catalytic activity/Vol]202 U/B97-490ChmqhvtljMercy Health [facility] Hospital Potassium [Moles/Vol]4.8 mmol/L3.5-5.1FMedina HospitalProtein [Mass/Vol]7.4 g/dL6.4-8.2FTriHealth Bethesda Butler Hospitalodium [Moles/Vol]139 mmol/L618-571WruobfmvnMercy Health Clermont HospitalUrea nitrogen [Mass/Vol]27.0 mg/dL 7.0-18.0[facility] HospitalUrea nitrogen/Creatinine [Mass ratio] 20.9 mg/mgMercy Health Clermont HospitalLaboratory - Hematology and Cell countson 57-53-1784IWQ (Bld) [Velocity]52 mm/h<=30[facility] HospitalImmature granulocytes/100 WBC (Bld)0.4 %0.0-0.5FMedina HospitalLeukocytes [#/volume] corrected for nucleated erythrocytes in Blood by Automated counon 79-66-0441SXV corrected for nucl RBC Auto (Bld) [#/Vol]6.9 10 3/uL4.0-11.0[facility] HospitalLymphocytes Auto (Bld) [#/Vol]on 74-77-7282Dhdeiosmigb (Bld) [#/Vol]1.7 10 3/uL1.2-3.8[facility] HospitalLymphocytes/100 WBC Auto (Bld)on 21-28-1200Umljimeslmw/100 WBC (Bld)24.7 % 20.5-60.0[facility] HospitalMCH Auto (RBC) [Entitic mass]on 67-77-9919YSY (RBC) [Entitic mass]29.6 pg26.7-34.0[facility] HospitalMCHC Auto (RBC) [Mass/Vol]on 63-93-1212WSYL (RBC) [Mass/Vol]30.5 g/dL 29.9-35.2FMedina HospitalMCV Auto (RBC) [Entitic vol]on 52-61-6860VRN (RBC) [Entitic vol]97.1 fL81.0-99.0[facility] HospitalMonocytes Auto (Bld) [#/Vol]on 74-38-5189Dzznbfcyi (Bld) [#/Vol]0.4 10 3/uL0.3-0.8[facility] HospitalMonocytes/100 WBC Auto (Bld)on 52-69-5852Aklddlham/100 WBC (Bld)6.0 %1.7-12.0[facility] Neutrophils Auto (Bld) [#/Vol]on 74-04-5833Ztppmdxarjy (Bld) [#/Vol]4.5 10 3/uL 1.4-6.5FMedina HospitalNeutrophils/100 WBC Auto (Bld)on 11-87-8018Drndzbzjpkl/100 WBC (Bld)65.9 %43.0-75.0[facility] HospitalNo Panel Informationon 70-58-6004Q-Reactive Protein, Quantitative<0.50 mg/dL<=0.50[facility] HospitalEosinophils # (Auto)0.2 10 3/uL 0.0-0.7FMedina HospitalImmature Granulocyte # (Auto)0.03 10 3/uL0.00-0.03[facility] HospitalProtein Electrophoresis M-SpikeNot Observed g/dLNot ObservedMercy Health Clermont HospitalProtein Electrophoresis NoteComment.[facility] HospitalComment on above: Protein electrophoresis scan will follow via computer,mail, or freelance art director delivery.Performed at: [facility] [id number] Director: Larry Nicolas PhD, Phone: [phone] mean volume Auto (Bld) [Entitic vol]on 36-79-9469Hmbnwiyg mean volume (Bld) [Entitic vol]10.8 fL9.5-13.5FMedina HospitalPlatelets Auto (Bld) [#/Vol] on 98-35-9838Xcfnvcnff (Bld) [#/Vol]259 10 3/lP498-325RojcvthppMercy Health Clermont HospitalProtein [Mass/volume] in Serum or Plasmaon 45-88-1549Jnbvhqv [Mass/Vol] 6.9 g/dL6.0-8.5FMedina HospitalRBC Auto (Bld) [#/Vol]on 77-51-1948QOW (Bld) [#/Vol]4.09 10 6/uL4.20-5.40[facility] HospitalReticulocytes/100 RBC Auto (Bld)on 73-35-7389Dtvufmeklsvvl/100 RBC (Bld) 1.56 %0.60-3.10[facility] Centererum globulin measurement (mass/volume)on 18-62-0994Qqscvcpo (S) [Mass/Vol]3.2 g/dL2.2-3.9[facility] Centererum or plasma albumin/globulin mass ratioon 06-15-2023 Albumin/Globulin [Mass ratio]1.0 {ratio}[facility] Albumin/Globulin [Mass ratio]1.2 {ratio}0.7-1.7FMedina Hospital Serum or plasma alpha 1 globulin measurement by electrophoresis (mass/volume)on 53-64-7094Uafnr 1 globulin Elph [Mass/Vol]0.3 g/dL0.0-0.4FTriHealth Bethesda Butler Hospitalerum or plasma alpha 2 globulin measurement by electrophoresis (mass/volume)on 89-77-3016Byfmc 2 globulin Elph [Mass/Vol]1.0 g/dL0.4-1.0 [facility] Centererum or plasma anion gap determinationon 84-16-6085Kglje gap [Moles/Vol]13.1 mmol/LFTriHealth Bethesda Butler Hospitalerum or plasma beta globulin measurement by electrophoresis (mass/volume)on 66-60-4472Rjnd globulin Elph [Mass/Vol]1.2 g/dL0.7-1.3FTriHealth Bethesda Butler Hospitalerum or plasma gamma globulin measurement by electrophoresis (mass/volume)on 14-56-1334Tsmyw globulin Elph [Mass/Vol]0.7 g/dL0.4-1.8[facility] Centererum or plasma immunoelectrophoresis interpretationon 74-24-1893Wuoptolkgsmqui IEP [Interp]Comment.[facility] Comment on above:No monoclonality detected.Basophils Auto (Bld) [#/Vol]on 36-10-7061Hrcbqonfh (Bld) [#/Vol]0.2 10 3/uL0.0-0.1FMedina HospitalBasophils/100 WBC Auto (Bld)on 11-81-3205Giirgxuay/100 WBC (Bld)0.7 % 0.2-2.0[facility] HospitalEosinophils/100 WBC Auto (Bld)on 76-25-1578Vhcojcqnwjb/100 WBC (Bld)0.5 %0.9-7.0[facility] Erythrocyte distribution width Auto (RBC) [Ratio]on 47-98-1542Kifjbhovtry distribution width (RBC) [Ratio]12.7 %11.0-15.0[facility] Estimated glomerular filtration rate (GFR) non- Americanon 05-29-2023 GFR/1.73 sq M.predicted among non-blacks MDRD (S/P/Bld) [Vol rate/Area]58 mL/min/{1.73_m2}>=60[facility] HospitalGlobulin Calc (S) [Mass/Vol]on 80-94-9500Xesuxezb (S) [Mass/Vol]4.3 g/dLMercy Health Clermont HospitalHematocrit Auto (Bld) [Volume fraction]on 25-43-9643Gptegdxnjh (Bld) [Volume fraction]31.1 %36.0-48.0[facility] HospitalHemoglobin [Mass/volume] in Bloodon 78-03-8077Xbafvsghrj (Bld) [Mass/Vol]9.9 g/dL12.0-16.0 [facility] HospitalLaboratory - Chemistry and Chemistry - challengeon 57-39-0456Qopezcq [Mass/Vol]2.3 g/dL3.4-5.0[facility] HospitalALP [Catalytic activity/Vol]94 U/I61-423YqoodsxakMercy Health Clermont HospitalALT [Catalytic activity/Vol]46 U/X16-22CkfmzuzbnMercy Health Clermont Hospital AST [Catalytic activity/Vol]37 U/E87-74JjqvdlapcMercy Health Clermont Hospital Bilirubin [Mass/Vol]0.3 mg/dL0.2-1.0[facility] HospitalCalcium [Mass/Vol]9.3 mg/dL8.5-10.1FMedina HospitalChloride [Moles/Vol] 108 mmol/V51-670EapceslfaMercy Health Clermont HospitalCO2 [Moles/Vol]26.5 mmol/L 21.0-32.0[facility] HospitalCreatinine [Mass/Vol]0.93 mg/dL 0.55-1.02[facility] HospitalGFR/1.73 sq M.predicted MDRD (S/P/Bld) [Vol rate/Area]mL/min/{1.73_m2}>=60[facility] HospitalGlucose [Mass/Vol]109 mg/qN80-407MnjeonvegMercy Health Clermont HospitalPotassium [Moles/Vol] 4.1 mmol/L3.5-5.1FMedina HospitalProtein [Mass/Vol]6.6 g/dL 6.4-8.2FTriHealth Bethesda Butler Hospitalodium [Moles/Vol]144 mmol/D348-082 [facility] HospitalUrea nitrogen [Mass/Vol]13.0 mg/dL7.0-18.0 [facility] HospitalUrea nitrogen/Creatinine [Mass ratio]14.0 mg/mg [facility] HospitalLaboratory - Hematology and Cell countson 75-06-8524Nobmfnjc granulocytes/100 WBC (Bld)11.2 %0.0-0.5FMedina HospitalLeukocytes [#/volume] corrected for nucleated erythrocytes in Blood by Automated counon 82-15-1349XAW corrected for nucl RBC Auto (Bld) [#/Vol]20.0 10 3/uL4.0-11.0[facility] HospitalLymphocytes Auto (Bld) [#/Vol]on 46-93-9718Voaoaflsorp (Bld) [#/Vol]2.7 10 3/uL1.2-3.8[facility] HospitalLymphocytes/100 WBC Auto (Bld)on 05-29-2023 Lymphocytes/100 WBC (Bld)13.2 %20.5-60.0[facility]H Auto (RBC) [Entitic mass]on 58-41-0540ZSH (RBC) [Entitic mass]29.8 pg26.7-34.0 [facility] HospitalMCHC Auto (RBC) [Mass/Vol]on 77-57-9548PHYA (RBC) [Mass/Vol]31.8 g/dL29.9-35.2FMedina HospitalMCV Auto (RBC) [Entitic vol]on 37-71-4345BLQ (RBC) [Entitic vol]93.7 fL81.0-99.0[facility] HospitalMonocytes Auto (Bld) [#/Vol]on 49-41-0223Nzxljmnmd (Bld) [#/Vol]1.1 10 3/uL0.3-0.8[facility] HospitalMonocytes/100 WBC Auto (Bld)on 02-80-3596Uegdiwvqf/100 WBC (Bld)5.3 %1.7-12.0[facility] HospitalNeutrophils Auto (Bld) [#/Vol]on 33-70-3993Dcekackjjef (Bld) [#/Vol]13.8 10 3/uL1.4-6.5FMedina HospitalNeutrophils/100 WBC Auto (Bld)on 86-67-2691Bbkbmzlnkyu/100 WBC (Bld)69.1 %43.0-75.0[facility] HospitalNo Panel Informationon 90-90-9179Oluxgthlsrc # (Auto)0.1 10 3/uL0.0-0.7FMedina HospitalImmature Granulocyte # (Auto)2.24 10 3/uL0.00-0.03[facility] HospitalPlatelet mean volume Auto (Bld) [Entitic vol]on 76-15-6334Vmihfftu mean volume (Bld) [Entitic vol]9.8 fL 9.5-13.5FMedina HospitalPlatelets Auto (Bld) [#/Vol]on 88-27-4145Ellhmuuyw (Bld) [#/Vol]281 10 3/rI564-358MzodngduvMercy Health Clermont HospitalRBC Auto (Bld) [#/Vol]on 16-40-8814UNT (Bld) [#/Vol]3.32 10 6/uL4.20-5.40 [facility] Centererum or plasma albumin/globulin mass ratioon 25-08-1519Dxndboh/Globulin [Mass ratio]0.5 {ratio}[facility] Centererum or plasma anion gap determinationon 46-82-9714Weyya gap [Moles/Vol] 13.6 mmol/LFTriHealth Bethesda Butler Hospitalerum procalcitonin measurementon 54-17-3114Hzyskfneugzew [Mass/Vol]ng/mL0.00-0.50[facility] HospitalBasophils Auto (Bld) [#/Vol]on 24-78-3680Atbjtaemv (Bld) [#/Vol]0.1 10 3/uL0.0-0.1FMedina HospitalBasophils/100 WBC Auto (Bld)on 07-99-0689Oggvpcjwf/100 WBC (Bld)0.6 %0.2-2.0[facility] Eosinophils/100 WBC Auto (Bld)on 00-14-1406Hwgaikhulkk/100 WBC (Bld)0.4 %0.9-7.0 [facility] HospitalErythrocyte distribution width Auto (RBC) [Ratio]on 21-82-2567Ruckwoojfki distribution width (RBC) [Ratio]12.7 %11.0-15.0 [facility] HospitalEstimated glomerular filtration rate (GFR) non- Americanon 68-67-3753SDM/1.73 sq M.predicted among non-blacks MDRD (S/P/Bld) [Vol rate/Area]47 mL/min/{1.73_m2}>=60[facility] HospitalGlobulin Calc (S) [Mass/Vol]on 65-41-2393Pmtxblot (S) [Mass/Vol]3.9 g/dL [facility] HospitalHematocrit Auto (Bld) [Volume fraction]on 36-82-6711Gmjvwmnggv (Bld) [Volume fraction]29.0 %36.0-48.0[facility] HospitalHemoglobin [Mass/volume] in Bloodon 85-42-4915Nvrklhlecg (Bld) [Mass/Vol]9.1 g/dL12.0-16.0[facility] HospitalLaboratory - Chemistry and Chemistry - challengeon 47-97-9885Iphvupp [Mass/Vol]2.0 g/dL 3.4-5.0[facility] HospitalALP [Catalytic activity/Vol]93 U/L46-116 [facility] HospitalALT [Catalytic activity/Vol]46 U/L14-59 [facility] HospitalAST [Catalytic activity/Vol]49 U/L15-37 [facility] HospitalBilirubin [Mass/Vol]0.3 mg/dL0.2-1.0[facility] HospitalCalcium [Mass/Vol]8.7 mg/dL8.5-10.1FMedina HospitalChloride [Moles/Vol]111 mmol/B72-173CcozlhvalMercy Health Clermont HospitalCO2 [Moles/Vol]25.0 mmol/L21.0-32.0[facility] Creatinine [Mass/Vol]1.12 mg/dL0.55-1.02[facility] GFR/1.73 sq M.predicted MDRD (S/P/Bld) [Vol rate/Area]57 mL/min/{1.73_m2}>=60 [facility] HospitalGlucose [Mass/Vol]103 mg/cY29-850OeopxudzzMercy Health Clermont HospitalPotassium [Moles/Vol]4.1 mmol/L3.5-5.1FMedina HospitalProtein [Mass/Vol]5.9 g/dL6.4-8.2FMed[facility] Hospital Sodium [Moles/Vol]144 mmol/Y435-684ZbdsdeyysMercy Health Clermont HospitalUrea nitrogen [Mass/Vol]22.0 mg/dL7.0-18.0[facility] HospitalUrea nitrogen/Creatinine [Mass ratio]19.6 mg/mgMercy Health Clermont Hospital Laboratory - Hematology and Cell countson 53-01-7663Okffbqks granulocytes/100 WBC (Bld)10.3 %0.0-0.5FMedina HospitalLeukocytes [#/volume] corrected for nucleated erythrocytes in Blood by Automated counon 92-62-5330VQV corrected for nucl RBC Auto (Bld) [#/Vol]17.1 10 3/uL4.0-11.0[facility] HospitalLymphocytes Auto (Bld) [#/Vol]on 56-90-8959Ruknijarlzb (Bld) [#/Vol]2.3 10 3/uL1.2-3.8[facility] HospitalLymphocytes/100 WBC Auto (Bld)on 43-30-5963Wwhwrjebyfe/100 WBC (Bld)13.5 %20.5-60.0[facility] HospitalH Auto (RBC) [Entitic mass]on 44-17-6313AVF (RBC) [Entitic mass]30.1 pg26.7-34.0[facility] HospitalMCHC Auto (RBC) [Mass/Vol]on 33-49-1445TUJP (RBC) [Mass/Vol]31.4 g/dL29.9-35.2FMedina HospitalMCV Auto (RBC) [Entitic vol]on 64-09-9104XSY (RBC) [Entitic vol] 96.0 fL81.0-99.0[facility] HospitalMonocytes Auto (Bld) [#/Vol]on 93-95-2604Clsfgwcfc (Bld) [#/Vol]1.0 10 3/uL0.3-0.8[facility] HospitalMonocytes/100 WBC Auto (Bld)on 80-97-4890Fsuexbjvd/100 WBC (Bld)6.0 % 1.7-12.0[facility] HospitalNeutrophils Auto (Bld) [#/Vol]on 58-82-9358Psxkmwndjsa (Bld) [#/Vol]11.9 10 3/uL1.4-6.5FMedina HospitalNeutrophils/100 WBC Auto (Bld)on 90-58-0275Rfompcahpxz/100 WBC (Bld)69.2 %43.0-75.0[facility] HospitalNo Panel Informationon 05-28-2023 Eosinophils # (Auto)0.1 10 3/uL0.0-0.7FMedina HospitalImmature Granulocyte # (Auto)1.76 10 3/uL0.00-0.03[facility] Platelet mean volume Auto (Bld) [Entitic vol]on 59-26-1544Yusspxgf mean volume (Bld) [Entitic vol]9.6 fL9.5-13.5FMedina HospitalPlatelets Auto (Bld) [#/Vol]on 58-52-5314Xghfxrcrs (Bld) [#/Vol]242 10 3/hA533-292UqdmcoqnoMercy Health Clermont HospitalRBC Auto (Bld) [#/Vol]on 27-77-0444IOE (Bld) [#/Vol]3.02 10 6/uL4.20-5.40[facility] Medical Centererum or plasma albumin/globulin mass ratioon 05-94-1620Cwleptq/Globulin [Mass ratio]0.5 {ratio} [facility] Centererum or plasma anion gap determinationon 98-88-0352Lcwid gap [Moles/Vol]12.1 mmol/LFTriHealth Bethesda Butler Hospitalerum procalcitonin measurementon 27-97-7183Xekhhmkgnpaca [Mass/Vol]0.06 ng/mL 0.00-0.50[facility] HospitalBasophils/100 WBC Manual cnt (Bld)on 72-87-8137Bycjfxmhj/100 WBC (Bld)0.0 %0.2-2.0[facility] Eosinophils/100 WBC Manual cnt (Bld)on 33-24-7172Hydccmlfyrr/100 WBC (Bld)0.0 % 0.9-7.0[facility] HospitalErythrocyte distribution width Auto (RBC) [Ratio]on 76-37-8001Pqkgzfxstmu distribution width (RBC) [Ratio]12.5 % 11.0-15.0[facility] HospitalEstimated glomerular filtration rate (GFR) non- Americanon 44-12-1237ZAD/1.73 sq M.predicted among non-blacks MDRD (S/P/Bld) [Vol rate/Area]29 mL/min/{1.73_m2}>=60[facility] HospitalGlobulin Calc (S) [Mass/Vol]on 17-51-6898Nkfbqwgg (S) [Mass/Vol]4.6 g/dL [facility] HospitalHematocrit Auto (Bld) [Volume fraction]on 56-74-5113Thsqldkmnj (Bld) [Volume fraction]29.7 %36.0-48.0[facility] HospitalHemoglobin [Mass/volume] in Bloodon 44-99-4224Caiyfxedkb (Bld) [Mass/Vol]9.4 g/dL12.0-16.0[facility] HospitalLaboratory - Chemistry and Chemistry - challengeon 48-34-8903Aoswkci [Moles/Vol]0.9 mmol/L 0.4-2.0[facility] HospitalAlbumin [Mass/Vol]2.3 g/dL3.4-5.0 [facility] HospitalALP [Catalytic activity/Vol]119 U/L46-116 [facility] HospitalALT [Catalytic activity/Vol]43 U/L14-59 [facility] HospitalAST [Catalytic activity/Vol]57 U/L15-37 [facility] HospitalBilirubin [Mass/Vol]0.2 mg/dL0.2-1.0[facility] HospitalCalcium [Mass/Vol]9.1 mg/dL8.5-10.1FMedina HospitalChloride [Moles/Vol]111 mmol/N00-367WxbyojcusMercy Health Clermont HospitalCO2 [Moles/Vol]18.8 mmol/L21.0-32.0[facility] Creatinine [Mass/Vol]1.70 mg/dL0.55-1.02[facility] GFR/1.73 sq M.predicted MDRD (S/P/Bld) [Vol rate/Area]35 mL/min/{1.73_m2}>=60 [facility] HospitalGlucose [Mass/Vol]155 mg/nD66-058SfudxmygdMercy Health Clermont HospitalPotassium [Moles/Vol]4.8 mmol/L3.5-5.1FMedina HospitalProtein [Mass/Vol]6.9 g/dL6.4-8.2F[facility] Sodium [Moles/Vol]143 mmol/L285-239IjingmacnMercy Health Clermont HospitalUrea nitrogen [Mass/Vol]34.0 mg/dL7.0-18.0[facility] HospitalUrea nitrogen/Creatinine [Mass ratio]20.0 mg/mgMercy Health Clermont Hospital Laboratory - Hematology and Cell countson 70-65-3793Mmmp form neutrophils/100 WBC (Bld)6.0 %0-5FMedina HospitalLymphocytes/100 WBC (Bld)12.0 %20.5-60.0[facility] HospitalMonocytes/100 WBC (Bld)4.0 %1.7-12.0 [facility] HospitalLaboratory - Microbiology and Antimicrobial susceptibilityOrdered By: Oumar Gunter on 62-85-5165Kfrcjipd identified Respiratory culture Nom (Sput)[facility] HospitalMicroscopic observation Gram stain Nom (Unsp spec)[facility] Leukocytes [#/volume] corrected for nucleated erythrocytes in Blood by Automated counon 85-00-6094ZWQ corrected for nucl RBC Auto (Bld) [#/Vol]26.6 10 3/uL 4.0-11.0[facility]H Auto (RBC) [Entitic mass]on 24-23-0722KOY (RBC) [Entitic mass]30.0 pg26.7-34.0[facility] HospitalHC Auto (RBC) [Mass/Vol]on 52-36-5446LBXA (RBC) [Mass/Vol]31.6 g/dL 29.9-35.2FMedina HospitalMCV Auto (RBC) [Entitic vol]on 85-06-0074KJM (RBC) [Entitic vol]94.9 fL81.0-99.0[facility] HospitalMetamyelocytes/100 WBC Manual cnt (Bld)on 60-30-0370Yhnzurdputntnx/100 WBC (Bld)2.0 %[facility] HospitalNo Panel Informationon 05-27-2023 Absolute Basophils (Manual)0.00 10 3/uL0.00-0.10[facility] HospitalBand Neutrophils # (Manual)1.6 10 3/uL0.0-0.3FMedina HospitalEosinophils # (Manual)0.00 10 3/uL0.00-0.70[facility] HospitalLymphocytes # (Manual)3.19 10 3/uL1.20-3.80[facility] HospitalMetamyelocytes # (Manual)0.53[facility] HospitalMonocytes # (Manual)1.06 10 3/uL0.30-0.80[facility] Medical Centeregmented Neutrophils # (Manual)20.21 10 3/uL1.4-6.5F[facility] Platelet mean volume Auto (Bld) [Entitic vol]on 36-54-0458Nokkusud mean volume (Bld) [Entitic vol]9.8 fL9.5-13.5FMedina HospitalPlatelets Auto (Bld) [#/Vol]on 02-14-4025Fkcrxpync (Bld) [#/Vol]265 10 3/nL684-728CbgplqyldMercy Health Clermont HospitalRBC Auto (Bld) [#/Vol]on 29-07-8043OSM (Bld) [#/Vol]3.13 10 6/uL4.20-5.40[facility] Medical Centeregmented neutrophils/100 WBC Manual cnt (Bld)on 00-72-6691Vrtrstocp neutrophils/100 WBC (Bld)76.0 %[facility] Centererum or plasma albumin/globulin mass ratioon 05-27-2023 Albumin/Globulin [Mass ratio]0.5 {ratio}[facility] Centererum or plasma anion gap determinationon 72-28-4906Emnlt gap [Moles/Vol]18.0 mmol/L [facility] Centererum procalcitonin measurementon 05-27-2023 Procalcitonin [Mass/Vol]0.13 ng/mL0.00-0.50[facility] Basophils Auto (Bld) [#/Vol]on 81-97-9665Fdtfszaxc (Bld) [#/Vol]0.1 10 3/uL 0.0-0.1FMedina HospitalBasophils/100 WBC Auto (Bld)on 33-44-3220Btykmsfoa/100 WBC (Bld)0.3 %0.2-2.0[facility] Eosinophils/100 WBC Auto (Bld)on 30-49-2775Ylwdsclmnzq/100 WBC (Bld)0.2 %0.9-7.0 [facility] HospitalErythrocyte distribution width Auto (RBC) [Ratio]on 40-08-7184Gdapchdmbxu distribution width (RBC) [Ratio]12.5 %11.0-15.0 [facility] HospitalEstimated glomerular filtration rate (GFR) non- Americanon 25-81-0306GIC/1.73 sq M.predicted among non-blacks MDRD (S/P/Bld) [Vol rate/Area]14 mL/min/{1.73_m2}>=60[facility] HospitalGlobulin Calc (S) [Mass/Vol]on 95-85-2808Gcvvhsqf (S) [Mass/Vol]4.4 g/dL [facility] HospitalHematocrit Auto (Bld) [Volume fraction]on 73-45-6790Yugvrmtjpn (Bld) [Volume fraction]31.7 %36.0-48.0[facility] HospitalHemoglobin [Mass/volume] in Bloodon 74-86-3988Lpdcwangcz (Bld) [Mass/Vol]9.7 g/dL12.0-16.0[facility] HospitalLaboratory - Chemistry and Chemistry - challengeon 69-70-6176Sbxzelr [Mass/Vol]2.3 g/dL 3.4-5.0[facility] HospitalALP [Catalytic activity/Vol]128 U/L 46-116[facility] HospitalALT [Catalytic activity/Vol]19 U/L14-59 [facility] HospitalAST [Catalytic activity/Vol]18 U/L15-37 [facility] HospitalBilirubin [Mass/Vol]0.4 mg/dL0.2-1.0[facility] HospitalCalcium [Mass/Vol]8.2 mg/dL8.5-10.1FMedina HospitalChloride [Moles/Vol]102 mmol/G51-192KsonbowsaMercy Health Clermont HospitalCO2 [Moles/Vol]23.6 mmol/L21.0-32.0[facility] Creatinine [Mass/Vol]3.17 mg/dL0.55-1.02[facility] GFR/1.73 sq M.predicted MDRD (S/P/Bld) [Vol rate/Area]17 mL/min/{1.73_m2}>=60 [facility] HospitalGlucose [Mass/Vol]279 mg/fO26-811WaqnlvsqwMercy Health Clermont HospitalPotassium [Moles/Vol]4.2 mmol/L3.5-5.1FMedina HospitalProtein [Mass/Vol]6.7 g/dL6.4-8.2F[facility] Sodium [Moles/Vol]136 mmol/R022-407KmlgslrjdMercy Health Clermont HospitalUrea nitrogen [Mass/Vol]40.0 mg/dL7.0-18.0[facility] HospitalUrea nitrogen/Creatinine [Mass ratio]12.6 mg/mgMercy Health Clermont Hospital Laboratory - Hematology and Cell countson 27-50-5618Glrzuqku granulocytes/100 WBC (Bld)4.9 %0.0-0.5FMedina HospitalLeukocytes [#/volume] corrected for nucleated erythrocytes in Blood by Automated counon 40-83-7081XHZ corrected for nucl RBC Auto (Bld) [#/Vol]20.7 10 3/uL4.0-11.0[facility] HospitalLymphocytes Auto (Bld) [#/Vol]on 39-53-0012Sdqslpcpoyh (Bld) [#/Vol]1.5 10 3/uL1.2-3.8[facility] HospitalLymphocytes/100 WBC Auto (Bld)on 11-28-1595Oxujnczkbfn/100 WBC (Bld)7.2 %20.5-60.0[facility] HospitalMCH Auto (RBC) [Entitic mass]on 77-60-8280KUA (RBC) [Entitic mass]29.8 pg26.7-34.0[facility] HospitalMCHC Auto (RBC) [Mass/Vol] on 28-26-7214QLIJ (RBC) [Mass/Vol]30.6 g/dL29.9-35.2FMedina HospitalMCV Auto (RBC) [Entitic vol]on 56-89-7593VWM (RBC) [Entitic vol]97.5 fL 81.0-99.0[facility] HospitalMonocytes Auto (Bld) [#/Vol]on 44-15-9592Noofrpvxg (Bld) [#/Vol]0.5 10 3/uL0.3-0.8[facility] HospitalMonocytes/100 WBC Auto (Bld)on 59-37-8637Kdkyluhxq/100 WBC (Bld)2.2 % 1.7-12.0[facility] HospitalNeutrophils Auto (Bld) [#/Vol]on 46-96-3028Cdyxvspdkcg (Bld) [#/Vol]17.6 10 3/uL1.4-6.5FMedina HospitalNeutrophils/100 WBC Auto (Bld)on 25-08-6848Uswqmbkksmp/100 WBC (Bld)85.2 %43.0-75.0[facility] HospitalNo Panel Informationon 05-26-2023 Eosinophils # (Auto)0.0 10 3/uL0.0-0.7FMedina HospitalImmature Granulocyte # (Auto)1.01 10 3/uL0.00-0.03[facility] Platelet mean volume Auto (Bld) [Entitic vol]on 94-34-4199Tpbtmktl mean volume (Bld) [Entitic vol]10.6 fL9.5-13.5FMedina HospitalPlatelets Auto (Bld) [#/Vol]on 52-02-9911Fcyhmwqpi (Bld) [#/Vol]227 10 3/aK502-033 [facility] HospitalRBC Auto (Bld) [#/Vol]on 31-52-0998UXM (Bld) [#/Vol]3.25 10 6/uL4.20-5.40[facility] Medical Centererum or plasma albumin/globulin mass ratioon 60-25-6858Yaaxahy/Globulin [Mass ratio]0.5 {ratio} [facility] Medical Centererum or plasma anion gap determinationon 25-64-6678Eehxx gap [Moles/Vol]14.6 mmol/LFTriHealth Bethesda Butler Hospitalerum procalcitonin measurementon 87-81-8646Nmsqkbituemiy [Mass/Vol]0.61 ng/mL 0.00-0.50[facility] HospitalAutomated urine specific gravity by refractometryon 22-70-5567Fxghbwrh gravity Refractometry automated (U) [Rel density]>=1.0301.005-1.025[facility] HospitalBasophils/100 WBC Manual cnt (Bld)on 38-94-1730Peabpebji/100 WBC (Bld)0.0 %0.2-2.0[facility] HospitalBilirubin Auto test strip (U) [Mass/Vol]on 05-25-2023 Bilirubin (U) [Mass/Vol]SMALLNEGATIVEMercy Health Clermont HospitalBlood toxic granulation detection by light microscopyon 05-10-4250Djrgx granules LM Ql (Bld)4+[facility] HospitalColor Auto (U)on 48-62-9649Sahga (U)DK. YELLOWYELLOWMercy Health Clermont HospitalEosinophils/100 WBC Manual cnt (Bld)on 02-99-2137Uuddmysjtjj/100 WBC (Bld)0.0 %0.9-7.0[facility] HospitalErythrocyte distribution width Auto (RBC) [Ratio]on 05-25-2023 Erythrocyte distribution width (RBC) [Ratio]12.3 %11.0-15.0[facility] HospitalEstimated glomerular filtration rate (GFR) non- Americanon 25-26-9475OSP/1.73 sq M.predicted among non-blacks MDRD (S/P/Bld) [Vol rate/Area]12 mL/min/{1.73_m2}>=60[facility] HospitalGlobulin Calc (S) [Mass/Vol]on 64-46-1724Npqmuqhw (S) [Mass/Vol]4.9 g/dLMercy Health Clermont HospitalHematocrit Auto (Bld) [Volume fraction]on 05-22-0670Ddmckxsbge (Bld) [Volume fraction]35.0 %36.0-48.0[facility] Hemoglobin [Mass/volume] in Bloodon 44-28-7972Taxsolnhbt (Bld) [Mass/Vol]11.1 g/dL12.0-16.0[facility] HospitalKetones Auto test strip (U) [Mass/Vol]on 67-78-0684Bmbrdkf (U) [Mass/Vol]TRACE mg/dLNEGATIVEMercy Health Clermont HospitalLaboratory - Chemistry and Chemistry - challengeon 53-65-7056Cmqrqmx [Mass/Vol]2.8 g/dL3.4-5.0[facility] HospitalALP [Catalytic activity/Vol]131 U/X90-400RuabtxdnzMercy Health Clermont HospitalALT [Catalytic activity/Vol]21 U/S59-08QghipyrxbMercy Health Clermont HospitalAST [Catalytic activity/Vol]21 U/Q87-68RadvdioutMercy Health Clermont HospitalBilirubin [Mass/Vol]0.6 mg/dL0.2-1.0[facility] HospitalCalcium [Mass/Vol]9.2 mg/dL8.5-10.1FMedina HospitalChloride [Moles/Vol]100 mmol/L 98-107[facility] HospitalCO2 [Moles/Vol]27.4 mmol/L21.0-32.0 [facility] HospitalCreatinine [Mass/Vol]3.70 mg/dL0.55-1.02 [facility] HospitalGFR/1.73 sq M.predicted MDRD (S/P/Bld) [Vol rate/Area]14 mL/min/{1.73_m2}>=60[facility] HospitalGlucose [Mass/Vol]142 mg/oR84-427UkiuxsqeuMercy Health Clermont HospitalLactate [Moles/Vol]1.2 mmol/L0.4-2.0[facility] HospitalPotassium [Moles/Vol]4.1 mmol/L 3.5-5.1FMedina HospitalProtein [Mass/Vol]7.7 g/dL6.4-8.2 [facility] Centerodium [Moles/Vol]139 mmol/O035-255DhtxciyvmMercy Health Clermont HospitalUrea nitrogen [Mass/Vol]38.0 mg/dL7.0-18.0[facility] HospitalUrea nitrogen/Creatinine [Mass ratio]10.3 mg/mgMercy Health Clermont HospitalLaboratory - Hematology and Cell countson 30-63-7258Wdpy form neutrophils/100 WBC (Bld)15.0 %0-5FMedina Hospital Lymphocytes/100 WBC (Bld)4.0 %20.5-60.0[facility] Monocytes/100 WBC (Bld)5.0 %1.7-12.0[facility] HospitalLaboratory - Microbiology and Antimicrobial susceptibilityon 28-81-4637BHRQ-CoV-2 (COVID- 19) RNA ITZEL+probe Ql (Unsp spec)Not detectedNOT [facility] HospitalLeukocytes [#/volume] corrected for nucleated erythrocytes in Blood by Automated counon 63-52-2371HRZ corrected for nucl RBC Auto (Bld) [#/Vol]24.6 10 3/uL4.0-11.0[facility] HospitalH Auto (RBC) [Entitic mass]on 66-70-6300THP (RBC) [Entitic mass]30.3 pg26.7-34.0[facility] HospitalHC Auto (RBC) [Mass/Vol]on 43-02-4067JRVI (RBC) [Mass/Vol]31.7 g/dL29.9-35.2FCleveland ClinicV Auto (RBC) [Entitic vol]on 18-65-7974JRM (RBC) [Entitic vol]95.6 fL81.0-99.0[facility] HospitalNo Panel Informationon 78-28-0731Fxfrasfkbd (PCR)Not detectedNOT [facility] HospitalBordetella parapertussis DNA (PCR)Not detectedNOT [facility] HospitalBordetella pertussis (PCR)(Misc)Not detectedNOT [facility] Chlamydia pneumoniae DNA (PCR)Not detectedNOT [facility] HospitalCoronavirus Type 229E (PCR)Not detectedNOT [facility] HospitalCoronavirus Type HKU1 (PCR)Not detectedNOT [facility] HospitalCoronavirus Type NL63 (PCR)Not detectedNOT DETECTE [facility] HospitalCoronavirus Type OC43 (PCR)Not detectedNOT [facility] HospitalEnterovirus/Rhinovirus (PCR)Not detected NOT DETECTOhioHealth Hardin Memorial HospitalHuman Metapneumovirus (PCR)Not detectedNOT [facility] HospitalInfluenza A (PCR)Not detectedNOT DETECTOhioHealth Hardin Memorial HospitalInfluenza Type B (RT-PCR)Not detectedNOT [facility] HospitalMycoplasma pneumoniae (PCR) Not detectedNOT DETECTOhioHealth Hardin Memorial HospitalParainfluenza Type 1 (PCR)Not detectedNOT [facility] HospitalParainfluenza Type 2 (PCR)Not detectedNOT DETECTOhioHealth Hardin Memorial HospitalParainfluenza Type 3 (PCR)Not detectedNOT [facility] Parainfluenza Type 4 (PCR)Not detectedNOT [facility] HospitalRespiratory Syncytial Virus (PCR)Not detectedNOT [facility] HospitalUrine Microscopic ReviewNOMercy Health Clermont Hospital Absolute Basophils (Manual)0.00 10 3/uL0.00-0.10[facility] HospitalBand Neutrophils # (Manual)3.7 10 3/uL0.0-0.3FMedina HospitalEosinophils # (Manual)0.00 10 3/uL0.00-0.70[facility] HospitalLymphocytes # (Manual)0.98 10 3/uL1.20-3.80[facility] HospitalMonocytes # (Manual)1.23 10 3/uL0.30-0.80[facility] Reactive Lymphocytes3.19[facility] HospitalReactive Lymphocytes 13.0 %[facility] Medical Centeregmented Neutrophils # (Manual)15.49 10 3/uL1.4-6.5FMedina HospitalTroponin I High Ekzzscnmxkx92.0 pg/mL4.0-51.3FMedina HospitalComment on above:CUT-OFF POINTS HAVE BEEN ESTABLISHED [...] INFORMATION.No Panel InformationOrdered By: Oumar Gunter on 55-02-1244Hkerp Culture 2FMedina HospitalBlood Culture 1FMedina HospitalPlatelet mean volume Auto (Bld) [Entitic vol]on 23-94-7566Cfdjmyor mean volume (Bld) [Entitic vol]10.5 fL9.5-13.5FMedina Hospital Platelets Auto (Bld) [#/Vol]on 42-53-0891Dmmcvevvk (Bld) [#/Vol]272 10 3/uL 150-450[facility] HospitalProtein Auto test strip (U) [Mass/Vol]on 81-52-2299Lyojoqv (U) [Mass/Vol]TRACE mg/dLNEG/TRACEMercy Health Clermont HospitalRBC Auto (Bld) [#/Vol]on 45-18-7916EHO (Bld) [#/Vol]3.66 10 6/uL4.20-5.40 [facility] Centeregmented neutrophils/100 WBC Manual cnt (Bld) on 50-25-1326Oacsxmdph neutrophils/100 WBC (Bld)63.0 %[facility] Medical Centererum or plasma albumin/globulin mass ratioon 25-80-1556Wvvftxh/Globulin [Mass ratio]0.6 {ratio}[facility] Centererum or plasma anion gap determinationon 38-38-5209Ynhzn gap [Moles/Vol]15.7 mmol/LFTriHealth Bethesda Butler Hospitalerum procalcitonin measurementon 93-84-4672Jfdyosilvcyvy [Mass/Vol]0.52 ng/mL0.00-0.50[facility] Medical Centerpecific gravity Auto test strip (U) [Rel density]on 24-07-9672Gyywxmfq gravity (U) [Rel density] CLEARCLEARFMedina HospitalUrine glucose measurement by test strip (mass/volume)on 68-04-5464Bapyodm Test strip (U) [Mass/Vol]Negative NEGATIVEMercy Health Clermont HospitalUrine hemoglobin detection by automated test stripon 48-55-8289Avjjfdckhf Auto test strip Ql (U)NegativeNEGATIVE [facility] HospitalUrine nitrite detection by automated test strip on 53-22-5755Kztbsnu Auto test strip Ql (U)NegativeNEGATIVEMercy Health Clermont HospitalUrobilinogen Auto test strip (U) [Mass/Vol]on 05-25-2023 Urobilinogen Qn (U)0.2 {Valentino'U}/dL0.2-1.0[facility] HospitalpH Auto test strip (U)on 14-36-9901aT (U)5.0 [pH]5.0-9.0[facility] HospitalXR knee LT 2Von 77-52-9970QU knee LT 2VMercy Health Clermont Hospital [employer] Other XR knee LT 2VFRSelect Medical Specialty Hospital [facility], [facility] [employer] Other XR knee LT [id number] [place] [address] [employer] Other XR knee LT [place], [place] [email or web address] Other XR knee LT 2VXRGibson General Hospital [employer] Other XR knee LT 2VSFreeman Heart Institute [email or web address] Other XR knee LT 2VPatient: Catherine Tang MR#: M0 [facility] [employer] Other XR knee LT [id number] [email or web address] Other XR knee LT 2VDOB: 1945 Acct:[id number] [email or web address] Other XR knee LT 2VAge/Sex: 77 / F ADM Date: 07/02/22[place] [email or web address] Other XR knee LT 2VLoc: SOXD Room: Type: [facility] [email or web address] Other XR knee LT 2VAttending Dr: Miguel Spring II, MD [place] [email or web address] Other XR knee LT 2VCopies to: Miguel Spring MDCrab [place] [email or web address] Other XR knee LT 2VOrdering Provider: Miguel Spring MD [employer] Other xr knee LT 2VDate of Service: 07/02/22[place] [email or web address] Other xr knee LT 2VAccession #: ([id number]) XR/XR knee LT 2V: Primary osteoarthritis of left kneeCrab [place]chard [email or web address] Other xr knee LT 2VLEFT KNEE - 2 viewsCr[place] [email or web address] Other xr knee LT 2VCOMPARISON: 10/16/2021[place] [email or web address] Other xr knee LT 2VCLINICAL DATA: Follow-up knee replacement.[employer] Other xr knee LT 2VAP and lateral standing views were obtained. A knee prosthesis is again visualized. The hardwareNopike county memorial hospital [email or web address] Other xr knee LT 2Vappears intact and unchanged from the prior. There are no developing fractures or dislocation.[employer] Other xr knee LT 2VThere is no sizable knee effusion.[employer] Other xr knee LT 2VORDER #: [id number] XR/XR knee LT 2VC[place] [email or web address] Other xr knee LT 2VIMPRESSION:[employer] Other xr knee LT 2VSTABLE KNEE REPLACEMENT.[employer] Other xr knee LT 2VImpression dictated by: Qi Espinoza M.D.07/02/2022 1:42 PMNcapital region medical center [email or web address] Other xr knee LT 2VDictation Location: [id number] [email or web address] Other xr knee LT 2VTranscribed By: PWS 07/02/22 1342[place] [email or web address] Other xr knee LT 2VDictated By: Qi Espinoza MD 07/02/22 1341[place] [email or web address] Other xr knee LT 2VSigned By:[facility] [employer] Other xr knee LT 2V07/02/[address] [place] [address] [email or web address] Other ECHOCARDIO M/2D COMPLETEon 79-74-2893MMWBUAOLMP M/2D COMPLETEPatient: CATHERINE TANG Exam Date: 10/17/2021 : 1945 Gender:F Ordering : DR OUMAR GUNTER M.D. Admission #: [id number] Family : Order #: [id number] CLICK HERE TO VIEW EXAM ECHOCARDIOGRAM REPORT [...] by: Ibrahima Arguelles M.D. on 10/17/2021 at 17:41[facility] HospitalANES POSTPROC EVALon 41-75-2150DILB POSTPROC EVALHNO ID: [id number] Author: Maria Guadalupe Lagos MD Service: Anesthesiology Author Type: Anesthesiologist Type: Anesthesia Postprocedure Evaluation Filed: 08/20/2021 12:24 PM Note Text: POST ANESTHESIA EVALUATION NOTE : 1945 Procedure Summary Date: 08/20/21 Room / Location: [address] Anesthesia Start: 1121 Anesthesia Stop: 1138 [...] August 20, 2021 TIME: 12:23 PM CSN: [id number]y Hospitals [facility] PRE-OPon 28-53-0515LJYF PRE-OPHNO ID: [id number] Author: Maria Guadalupe Lagos MD Service: Anesthesiology Author Type: Anesthesiologist Type: Anesthesia Preprocedure Evaluation Filed: 08/20/2021 9:00 AM Note Text: ANESTHESIOLOGY DAY OF SURGERY NOTE : 1945 Procedure Information Date/Time: 08/20/21 1055 Procedures: PHACOEMULSIFICATION CATARACT IMPLANT INTRAOCULAR LENS W/O ENDOSCOPIC CYCLOPHOTOCOAGULATION (Right Eye) OPHTHALMIC BIOMETRY BY PARTIAL COHERENCE INTERFEROMETRY W/INTRAOCULAR LENS POWER CALCULATION (Right Eye) Location: [address] Surgeons: Jennifer Infante V, MD Estimated [...] and consent discussed: yes. Patient / Responsible Republican agrees to proceed: yes Patient / Surrogate [...] August 20, 2021 TIME: 8:59 AM CSN: [id number] Health Greene Memorial NOon [id number] NOHNO ID: [id number] Author: Jennifer Infante V, MD Service: Ophthalmology Author Type: Physician Type: Operative Report Filed: 08/20/2021 11:39 AM Note Text: OPERATIVE REPORT DATE OF SERVICE: August 20, 2021 PRIMARY SURGEON: Jennifer Infante M.D. PARAEDUCATOR: None Procedure(s) (LRB): PHACOEMULSIFICATION CATARACT IMPLANT INTRAOCULAR [...] corneal incision was created temporally with a [place] blade then a 2.4 mm keratome. The [...] Implant Name Type Inv. Item Serial No. Health Club Manager Lot No. LRB Model Num No. Used LENS IOL 0D +13 TONY UV ABS - [id number] Intraocular Lens LENS IOL 0D +13 TONY UV ABS [id number] [employer] SURGICAL Right [id number] 1 was inserted through [...] Dang; relinquish care POD #1 Jennifer INFANTE MDNoUniversity Hospitals Geauga Medical Center POSTPROC EVALon 08-06-2021 ANES POSTPROC EVALHNO ID: [id number] Author: Chencho Leon MD Service: Anesthesiology Author Type: Anesthesiologist Type: Anesthesia Postprocedure Evaluation Filed: 08/06/2021 1:06 PM Note Text: POST ANESTHESIA EVALUATION NOTE : 1945 Procedure Summary Date: 08/06/21 Room / Location: [place] [address] / [facility] Anesthesia Start: 1030 Anesthesia Stop: 105 Procedures: PHACOEMULSIFICATION CATARACT IMPLANT [...] August 06, 2021 TIME: 1:06 PM CSN: [id number]y Hospitals [facility]aug[facility] Center PRE-OPon [id number] PRE-OPHNO ID: [id number] Author: Chencho Leon MD Service: Anesthesiology Author Type: Anesthesiologist Type: Anesthesia Preprocedure Evaluation Filed: 08/06/2021 10:28 AM Note Text: ANESTHESIOLOGY DAY OF SURGERY NOTE : 1945 Procedure Information Date/Time: 08/06/21 1025 Procedures: PHACOEMULSIFICATION CATARACT IMPLANT INTRAOCULAR LENS W/O ENDOSCOPIC CYCLOPHOTOCOAGULATION (Left Eye) OPHTHALMIC BIOMETRY BY PARTIAL COHERENCE INTERFEROMETRY W/INTRAOCULAR LENS POWER CALCULATION (Left Eye) Location: [address] Surgeons: Jennifer Infante V, MD Estimated [...] and consent discussed: yes. Patient / Responsible Republican agrees to proceed: yes Patient / Surrogate [...] ON 08/07/2021] lidocaine 2 % (XYLOCAINE) OTHER Remote Control Assembler to OR - tetracaine (PF) 0.5 % [...] August 06, 2021 TIME: 10:10 AM CSN: [id number] Health Greene Memorial NOon [id number] NOHNO ID: [id number] Author: Jennifer Infante V, MD Service: Ophthalmology Author Type: Physician Type: Operative Report Filed: 08/06/2021 10:49 AM Note Text: OPERATIVE REPORT DATE OF SERVICE: August 06, 2021 PRIMARY SURGEON: Jennifer Infante M.D. PARAEDUCATOR: None Procedure(s) (LRB): PHACOEMULSIFICATION CATARACT IMPLANT INTRAOCULAR [...] corneal incision was created temporally with a [place] blade then a 2.4 mm keratome. The anterior chamber was reformed with Viscoat, after which the anterior capsule was opened centrally. Using the Utrata forceps a continuous curvilinear capsulorrhexis of approximately 5.5 mm round was created. Gentle hydrodissection was accomplished using preservative-free lidocaine on a 27-gauge cannula. Using the Tian phacoemulsification unit with the addwish curved tip, the anterior chamber was entered [...] Implant Name Type Inv. Item Serial No. Health Club Manager Lot No. LRB Model Num No. Used LENS IOL 0D +13 TONY UV ABS - [id number] Intraocular Lens LENS IOL 0D +13 TONY UV ABS [id number] [employer] SURGICAL Left [id number] 1 was [...] 10:48 AM - Comanage with Dr Dang; [facility] P[facility] #1 Jennifer INFANTE MDHighland District Hospital PHYSICALon 07-30-2021 HISTORY PHYSICALHNO ID: [id number] Author: Shikha Kate APRN.BOW MAKER [employer] Service: ? Author Type: Nurse Practitioner Type: [...] implants - PAST SURGICAL HISTORY OF SCS ([employer]) - TOTAL KNEE REPLACEMENT Left FAMILY [...] fevers. Neuro: No history of TIA's, stroke, ASSISTANT MANAGER QUALITY MANAGEMENT tumor, impaired sensorium, hemiplegia, paraplegia or quadraplegia. No neurological symptoms or problems. Respiratory: No history of current cough or dyspnea, or pneumonia in the past 6 weeks. No history of respiratory/pulmonary symptoms or problems. Cardiovascular: No history of HTN requiring medication, no history of angina, CHF, ND, cardiac surgery or stents. Denies rest pain, gangrene or revascularization/amputation for PVD. No history of cardiovascular symptoms or problems. +HLD GI: No history of GI symptoms or problems. No history of esophageal varices, recent ascites, or ETOH greater than 2 drinks per day. : No history of dysuria, frequency or incontinence,, stones or chronic kidney disease +urgency SKIVER SOCK LININGS: Negative for abnormal vaginal bleeding, abnormal vaginal [...] 206 lb (93.4kg) SpO2 (more content not included)...NormalOhio State Health System CAROTID ART BILon 46-37-9445CM CAROTID ART BILEXAMINATION: US CAROTID ART FRACISCO [...] Electronically authenticated by: EDWARDO MANE Date: 2021-04-29 07:05[facility] HospitalCovid-19 PCR (CVDTBH)on 88-60-7227JPBB-CoV-2 (COVID-19) RNA ITZEL+probe Ql (Unsp spec)DetectedCritically abnormalNOT DETECTEDThe [facility] HospitalComment on above:Result Comment: This test is not yet approved or cleared by the [place] FDA. When there are no FDA-approved or cleared tests available, and other criteria are met, FDA can make tests available under an emergency access mechanism called an Emergency Use Authorization (EUA). The EUA for this test is supported by the Assembler Crimper of Health and Human Service's (HHS's) declaration [...] be used). Performed By: #### CVDTBH #### [facility] [address] [place] [address] Dr. Марина LangTHYROID ANTIBODIESon 86-70-6804Eubzdmfvevvyt Antibody<1.0Normal 0.0-0.9[facility] Defiance HospitalComment on above:Result Comment: Thyroglobulin Antibody measured by [employer] MethodologyPerformed By: #### THYRABS #### [facility] [address] [place] [address] Dr. Марина LangThyroid Peroxidase (TPO) Ab<4Fauhww4-32LtaMercy Health Defiance Hospital Comment on above:Performed By: #### THYRABS #### [facility] [address] [place] [address] Dr. Марина Moreno AUTO DIFFon 47-08-8358XBAV #0.1 103/ulNormal0.0-0.1[facility] Defiance HospitalComment on above:Performed By: #### CBC #### [facility] [address] [place] [address] Dr. Марина LangBasophils/100 WBC (Bld)0.9 %Normal0.2-2.0[facility] Comment on above:Performed By: #### CBC #### [facility] [address] [place] [address] Dr. Parish ChangEBrittni #0.3 103/ulNormal0.0-0.7The [facility] HospitalComment on above: Performed By: #### CBC #### [facility] [address] [place] [address] Dr. Марина Toosinophils/100 WBC (Bld)5.7 %Normal0.9-7.0The [facility] Comment on above:Performed By: #### CBC #### [facility] [address] [place] [address] Dr. Марина Torythrocyte distribution width (RBC) [Ratio]14.0 %Imqiyt24.0-15.0 The [facility] HospitalComment on above:Performed By: #### CBC #### [facility] [address] [place] [address] Dr. Марина LangHematocrit (Bld) [Volume fraction]40.5 %Ikfdpm68.0-48.0The [facility] HospitalComment on above:Performed By: #### CBC #### [facility] [address] [place] [address] Dr. Марина LangHemoglobin (Bld) [Mass/Vol]12.3 g/bILfooxk62.0-16.0The [facility] HospitalComment on above:Performed By: #### CBC #### [facility] [address] [place] [address] Dr. Марина Phan #0.01 10e3/ulNormal0.00-0.03The [facility] HospitalComment on above:Performed By: #### CBC #### [facility] [address] [place] [address] Dr. Марина LangIG %0.2 %Normal0.0-0.5The [facility] Doctors Hospitalment on above: Performed By: #### CBC #### [facility] [address] [place] [address] Dr. Марина OrrMPH #1.5 103/ulNormal1.2-3.8The [facility] HospitalComment on above:Performed By: #### CBC #### [facility] [address] [place] [address] Dr. Марина Orrmphocytes/100 WBC (Bld)27.9 %Icydcg91.5-60.0The [facility] HospitalComment on above:Performed By: #### CBC #### [facility] [address] [place] [address] Dr. Марина Dunn DIFF REQNONormalThe [facility] HospitalComment on above: Performed By: #### CBC #### [facility] [address] [place] [address] Dr. Марина Hansen (RBC) [Entitic mass]28.6 raLrdzyg25.7-34.0The [facility] HospitalComment on above:Performed By: #### CBC #### [facility] [address] [place] [address] Dr. Марина Hnasen (RBC) [Mass/Vol]30.4 g/iZSenknm72.9-35.2The [facility] HospitalComment on above:Performed By: #### CBC #### [facility] [address] [place] [address] Dr. Марина Hansen (RBC) [Entitic vol]94.2 pMUxhevf13.0-99.0The [facility] HospitalComment on above:Performed By: #### CBC #### [facility] [address] [place] [address] Dr. Марина Rubio #0.5 103/ulNormal0.3-0.8The [facility] HospitalComment on above:Performed By: #### CBC #### [facility] [address] [place] [address] Dr. Марина Burgosocytes/100 WBC (Bld)9.0 %Normal1.7-12.0The [facility] Comment on above:Performed By: #### CBC #### [facility] [address] [place] [address] Dr. Марина Alejandro #3.1 103/ulNormal1.4-6.5The [facility] Doctors Hospitalment on above:Performed By: #### CBC #### [facility] [address] [place] [address] Dr. Марина Sinhautrophils/100 WBC (Bld)56.3 %Gvyqhz47.0-75.0The [facility] HospitalComment on above:Performed By: #### CBC #### [facility] [address] [address] [address] Марина LangPlatelet mean volume (Bld) [Entitic vol]9.9 fLNormal9.5-13.5The [facility] HospitalComment on above:Performed By: #### CBC #### [facility] [address] [place] [address] Dr. Марина LangPLT172 103/lzHwsgja268-121Ymp [facility] HospitalComment on above: Performed By: #### CBC #### [facility] [address] [place] [address] Dr. Марина LangRBC4.30 106/ulNormal4.20-5.40The [facility] HospitalComment on above:Performed By: #### CBC #### [facility] [address] [place] [address] Dr. Марина LangWBC5.4 103/ulNormal4.0-11.0The [facility] HospitalComment on above: Performed By: #### CBC #### [facility] [address] [place] [address] Dr. Марина LangFRTRACE T4on 01-27-9309Whyo T4 [Mass/Vol]1.06 ng/dLNormal0.78-2.19 The [facility] HospitalCominsight surgical hospital on above:Performed By: #### FT4 #### [facility] [address] [place] [address] Dr. Марина LangGLYCOHEMOGLOBIN A1Con 84-95-0201KKR RECOMMENDATIONADA THERAPEUTIC TARGET 6.0 - 7.0 ACTION SUGGESTED > 7.0NoSelect Medical Specialty Hospital - AkronComment on above:Performed By: #### A1C #### [facility] [address] [place] [address] Dr. Марина LangGlucose [Mass/Vol]131 mg/dLNoSelect Medical Specialty Hospital - AkronComment on above:Performed By: #### A1C #### [facility] [address] [place] [address] Dr. Марина LangHbA1c (Bld) [Mass fraction]6.2 %Critically high<=6.0The [facility] HospitalComment on above:Performed By: #### A1C #### [facility] [address] [place] [address] Dr. Марина PuenteF CHEM 8 (BAS METB)on 27-44-3213Dyjgo gap [Moles/Vol]8.9 mmol/LNormalThe [facility] HospitalComment on above:Performed By: #### BMP, TSH #### [facility] [address] [place] [address] Dr. Марина LangCalcium [Mass/Vol]10.0 mg/dLNormal8.4-10.2The [facility] Comment on above:Performed By: #### BMP, TSH #### [facility] [address] [place] [address] Dr. Марина LangChloride [Moles/Vol]105 mmol/PTwwoid96-743Jkm [facility] Comment on above:Performed By: #### BMP, TSH #### [facility] [address] [place] [address] Dr. Марина LangCO2 [Moles/Vol]35.0 mmol/LCritically high22.0-30.0The [facility] HospitalComment on above:Performed By: #### BMP, TSH #### [facility] [address] [place] [address] Dr. Марина LangCreatinine [Mass/Vol]1.10 mg/dLCritically high0.52-1.04The [facility] HospitalComment on above:Performed By: #### BMP, TSH #### [facility] [address] [place] [address] Dr. Parish ChangEGFR-AF JTPCJKYD82 mL/min/1.95g4Ouwhppfida low>=60The [facility] HospitalComment on above:Performed By: #### BMP, TSH #### [facility] [address] [place] [address] Dr. Марина ToGFR-NON AF JKSJUSXM42 mL/min/1.38u1Achjzkxbtq low>=60The [facility] HospitalComment on above:Performed By: #### BMP, TSH #### [facility] [address] [address] [address] Марина LangGlucose [Mass/Vol]107 mg/dLCritically dqnz23-310Jpu [facility] HospitalComment on above:Performed By: #### BMP, TSH #### [facility] [address] [address] [address] Марина LangPotassium [Moles/Vol]4.9 mmol/LNormal3.4-5.0The [facility] Comment on above:Performed By: #### BMP, TSH #### [facility] [address] [address] [address] Марина LangSodium [Moles/Vol]144 mmol/BCirkvm025-227Bdc [facility] Comment on above:Performed By: #### BMP, TSH #### [facility] [address] [place] [address] Dr. Марина LangUrea nitrogen [Mass/Vol]17.0 mg/dLNormal7.0-17.0The [facility] HospitalComment on above:Performed By: #### BMP, TSH #### [facility] [address] [place] [address] Dr. Марина Mancera nitrogen/Creatinine [Mass ratio]15.5 mg/mgNoSelect Medical Specialty Hospital - AkronComment on above:Performed By: #### BMP, TSH #### [facility] [address] [place] [address] Dr. Марина Bauman 66-76-9881PRA1.603 uIU/mLNormal0.470-4.680The [facility] HospitalComment on above:Performed By: #### BMP, TSH #### [facility] [address] [place] [address] Dr. Марина LEESelect Medical Specialty Hospital - Columbus SouthComment on above: Result Comment: <0.34 UIU/ml HYPERTHYROID 0.34-5.60 UIU/ml EUTHYROID >5.60 UIU/ml HYPOTHYROIDPerformed By: #### BMP, TSH #### [facility] [address] [place] [address] Dr. Марина Vann BIOMETRY W/ IOL CALC OU (BOTH EYES)[facility] Vital Signs Date TimeVital SignValuePerforming YdgxuwprvIqothjar74-14-2254 14:20-0400Body hmlkma707.02 cmOumar Gunter MD Work Phone: [phone])[address]10-30-2025 14:20-0400 Body mass index (BMI) [Ratio]34 kg/z4JyaqwgOumar Gunter MD Work Phone: 1(419)[address] [place], [place] 3273010-30-2025 14:20-0400 Body iweirnnujiv37.2 [degF]Oumar Gunter MD Work Phone: 1(419)[address] [place], [place] 3273010-30-2025 14:20-0400 Body kwbqda27.08 kgOumar Gunter MD Work Phone: 1(419)[address] [place], [place] 3273010-30-2025 14:20-0400 Diastolic blood gtfeztwp86 mm[Hg]Oumar Gunter MD Work Phone: 1(419)[address] [place], [place] 3273010-30-2025 14:20-0400 Heart jzeo812 /Joanne Gunter MD Work Phone: 1(419)[address] [place], [place] 3273010-30-2025 14:20-0400 SaO2% (BldA) [Mass fraction]91 %Oumar Gunter MD Work Phone: 1(281)[address] [place], [place] 3273010-30-2025 14:20-0400 Systolic blood cbvuoovl044 mm[Hg]Oumar Gunter MD Work Phone: 1(419)[address] [place], [place] 3273009-26-2025 10:02-0400 Diastolic blood ecblagaf53 mm[Hg]Oumar Gunter MD Work Phone: 1419)[address] [place], [place] 3273009-26-2025 10:02-0400 Heart rate92 /Joanne Gunter MD Work Phone: 1(419)[address] [place], [place] 3273009-26-2025 10:02-0400 Systolic blood eonipsja499 mm[Hg]Oumar Gunter MD Work Phone: 1(134)[address] [place], [place] 3273009-26-2025 09:57-0400 Body lfdgyp163.02 cmOumar Gunter MD Work Phone: 1(305)[address]09-26-2025 09:57-0400 Body mass index (BMI) [Ratio]35.4 kg/a0KqvxenOumar Gunter MD Work Phone: 1419)[address] [place], [place] 3273009-26-2025 09:57-0400 Body acroopakbac20.3 [degF]Oumar Gunter MD Work Phone: 1(419)[address] [place], [place] 3273009-26-2025 09:57-0400 Body fipunt54.71 kgOumar Gunter MD Work Phone: 1419)[address] [place], [place] 3273006-27-2025 10:12-0400 Body fhnhka428.02 Chad Gunter MD Work Phone: 1419)[address] [place], [place] 3273006-27-2025 10:12-0400 Body mass index (BMI) [Ratio]34.5 kg/v5WrrazdOuamr Gunter MD Work Phone: 1(419)[address] [place], [place] 3273006-27-2025 10:12-0400 Body irswmiersej20.2 [degF]Oumar Gunter MD Work Phone: 1(419)[address] [place], [place] 3273006-27-2025 10:12-0400 Body fghuvm36.45 kgOumar Gunter MD Work Phone: 1419)[address] [place], [place] 3273006-27-2025 10:12-0400 Diastolic blood mm[Hg]Oumar Gunter MD Work Phone: 1(419)[address] [place], [place] 3273006-27-2025 10:12-0400 Heart rate95 /minOumar Gunter MD Work Phone: 1419)[address] [place], [place] 3273006-27-2025 10:12-0400 Systolic blood tnotrneb853 mm[Hg]Oumar Gunter MD Work Phone: 1419)[address] [place], [place] 3273005-06-2025 13:38-0400 Body gvquhd690.02 cmOumar Gunter MD Work Phone: 1(231)[address] [place], [place] 3273005-06-2025 13:38-0400 Body mass index (BMI) [Ratio]36.3 kg/u8XawzejOumar Gunter MD Work Phone: 1(448)[address]05-06-2025 13:38-0400 Body ujxxrr91.98 kgOumar Gunter MD Work Phone: 1(852)[address]05-06-2025 13:38-0400 Diastolic blood tmxodzrv70 mm[Hg]Oumar Gunter MD Work Phone: 1(065)[address]05-06-2025 13:38-0400 Heart rate95 /Joanne Gunter MD Work Phone: 1(908)04[address]05-06-2025 13:38-0400 SaO2% (BldA) [Mass fraction]94 %Oumar Gunter MD Work Phone: 1(220)[address]05-06-2025 13:38-0400 Systolic blood ocwoknwp763 mm[Hg]Oumar Gunter MD Work Phone: 1(991)[address] [place], [place] 3273004-29-2025 10:58-0400 Body qdakzy3632.24 cmOumar Gunter MD Work Phone: 1(878)[address] [place], [place] 3273004-29-2025 10:58-0400 Body mass index (BMI) [Ratio]0.2 kg/w9WfdshbOumar Gunter MD Work Phone: 1(175)[address]04-29-2025 10:58-0400 Body xyemsq28.35 kgOumar Gunter MD Work Phone: 1(242)[address]04-29-2025 10:58-0400 Diastolic blood cvdnnfep91 mm[Hg]Oumar Gunter MD Work Phone: 1(255)[address]04-29-2025 10:58-0400 Heart rate84 /Joanne Gunter MD Work Phone: 1(590)[address]04-29-2025 10:58-0400 Systolic blood mm[Hg]Oumar Gunter MD Work Phone: 1(395)[address] [place], [place] 3273004-01-2025 14:15-0400 Body .02 cmOumar Gunter MD Work Phone: [facility]04-01-2025 14:15-0400 Body mass index (BMI) [Ratio]34.9 kg/i7ItamrsOumar Gunter MD Work Phone: [facility]04-01-2025 14:15-0400 Body fouhwl72.35 kgOumar Gunter MD Work Phone: 1(036)674-[address] [place], [place] 5359904-01-2025 14:15-0400 Diastolic blood ajsloify36 mm[Hg]Oumar Gunter MD Work Phone: 1(048)611-23[facility]04-01-2025 14:15-0400 Heart rate86 /Joanne Gunter MD Work Phone: 1(639)496-06[facility]04-01-2025 14:15-0400 Systolic blood zysqwact907 mm[Hg]Oumar Gunter MD Work Phone: 1(511)337-[address] [place], [place] 5359903-28-2025 09:56-0400 Body fvndao064.02 cm[facility]03-28-2025 09:56-0400Body mass index (BMI) [Ratio]34.9 kg/f2XhbjitcryMercy Health [facility]03-28-2025 09:56-0400Body .4 [degF][facility]03-28-2025 09:56-0400Body uwuvgj45.35 kgMer[facility]03-28-2025 09:56-0400Diastolic blood scvbpfiq26 mm[Hg][facility] 06-23-2024 09:56-0400Heart rate92 /[facility] 06-23-2024 09:56-0400Systolic blood bcnytfvw034 mm[Hg][facility]01-29-2025 09:27-0500Body hwdwfo048.02 cmMer[facility]01-29-2025 09:27-0500Body mass index (BMI) [Ratio]34.3 kg/q0WipknruwjMercy Health [facility]01-29-2025 09:27-0500Body nvzaxhodrca66.8 [degF][facility]01-29-2025 09:27-0500Body uimpjq88 kgMer[facility]01-29-2025 09:27-0500Diastolic blood avpatrfh52 mm[Hg][facility]01-29-2025 09:27-0500Heart rate86 /minMer[facility]01-29-2025 09:27-0500Systolic blood ezsezcyg221 mm[Hg][facility]12-09-2024 11:50-0500Body hgiuyw060.02 cmMer[facility]12-09-2024 11:50-0500Body mass index (BMI) [Ratio]34.9 kg/v6IroimvyrlMercy Health [facility]12-09-2024 11:50-0500Body .35 kg [facility]12-09-2024 11:50-0500Diastolic blood hyhaqhkz16 mm[Hg][facility]12-09-2024 11:50-0500Heart rate86 /min [facility]12-09-2024 11:50-0500Systolic blood tnprbtte771 mm[Hg][facility]03-06-2024 09:33-0500Body exqqya228.02 cmMD Oumar Gunter Work Phone: [facility]03-06-2024 09:33-0500 Body mass index (BMI) [Ratio]33.6 kg/m2MD Oumar Gunter Work Phone: [facility]03-06-2024 09:33-0500 Body .18 kgMD Oumar Gunter Work Phone: [facility]03-06-2024 09:33-0500 Diastolic blood xjcveijg94 mm[Hg]MD Oumar Gunter Work Phone: [facility]03-06-2024 09:33-0500 Heart dfmn918 /minMD Oumar Gunter Work Phone: [facility]03-06-2024 09:33-0500 Systolic blood sjpwvgal468 mm[Hg]MD Oumar Gunter Work Phone: [facility]12-13-2023 10:00-0500 Body qpizde910.02 cmOumar Gunter Other [employer] Other 12-13-2023 10:00-0500Body mass index (BMI) [Ratio] 34.68 kg/m4RobqneOumar Gunter Other [place] Other 12-13-2023 10:00-0500Body taosfn98.81 kgOumar Gunter Other [facility] Other [id number] 10:00-0500Diastolic blood lgxojgeo37 mm[Hg] Oumar Gunter Other [place] Other 12-13-2023 10:00-0500Systolic blood wnwiwpwf458 mm[Hg] Oumar Gunter Other [employer] Other 12-12-2023 11:20-0500Body rahmch959.02 cmLindaditi WinklerMyra Other [place] Other 12-12-2023 11:20-0500Body mass index (BMI) [Ratio] 34.72 kg/z6Qxtgz Myra Other [employer] Other 12-12-2023 11:20-0500Body lvvuxo46.91 kgLinda Myra Other [employer] Other 12-12-2023 11:20-0500Diastolic blood stctfuug37 mm[Hg] Myra Other [employer] Other 12-12-2023 11:20-0500Respiratory rate20 /minLinda Myra Other [employer] Other 12-12-2023 11:20-3032WsX9% (BldA) [Mass fraction]92 % Myra Other [employer] Other 12-12-2023 11:20-0500Systolic blood swwkocmb496 mm[Hg] Myra Other [employer] Other 11-13-2023 10:00-0500Body qqizdm230.02 cmLinda Myra Other [employer] Other 11-13-2023 10:00-0500Body mass index (BMI) [Ratio] 34.54 kg/p3Lbytk Myra Other [employer] Other 11-13-2023 10:00-0500Body pxphax29.45 kgLinda Myra Other [employer] Other 11-13-2023 10:00-0500Diastolic blood ydzygiha81 mm[Hg] Myra Other [employer] Other 11-13-2023 10:00-0500Respiratory rate18 /minLinda Myra Other [employer] Other 11-13-2023 10:00-7632SvA0% (BldA) [Mass fraction]94 % Myra Other [employer] Other 11-13-2023 10:00-0500Systolic blood xgkuhwkk904 mm[Hg] Linda Renteria Other [facility] Other 06-13-2023 10:30-0400Body ckbjaw703.02 cmOumar Gunter Other [facility] Other 06-13-2023 10:30-0400Body mass index (BMI) [Ratio] 34.18 kg/o2GflthvOumar Gunter Other [employer] Other 06-13-2023 10:30-0400Body nzcewb24.54 kgOumar Gunter Other [employer] Other 06-13-2023 10:30-0400Diastolic blood igaofbii05 mm[Hg] Oumar Lyric Other [employer] Other 06-13-2023 10:30-0400Systolic blood jsydscvo447 mm[Hg] Oumar Lyric Other [employer] Other 04-06-2023 10:45-0400Body axgctf587.02 cmRobert Turner II Other [employer] Other 04-06-2023 10:45-0400Body mass index (BMI) [Ratio]35.6 kg/i0Zfmlyr Saw II Other [employer] Other 04-06-2023 10:45-0400Body oxxsex91.17 kgRobert Saw II Other [employer] Other 06-09-2022 10:45-0400Body .02 cmRobert Turner II Other [employer] Other 06-09-2022 10:45-0400Body mass index (BMI) [Ratio]35.6 kg/u1Msznyb Turner II Other [employer] Other 06-09-2022 10:45-0400Body guetad96.17 kgRobert Turner II Other [employer] Other 05-12-2022 16:30-0400Body ubrnzr897.02 cmRobert Turner II Other [employer] Other 05-12-2022 16:30-0400Body mass index (BMI) [Ratio]35.6 kg/n2Fpsxao Saw II Other [employer] Other 05-12-2022 16:30-0400Body .17 kgRobert Saw II Other [employer] Other 05-04-2022 09:12-0400Body bzpoco798.3 cmPacc 1 Work Phone: [facility]05-04-2022 09:12-0400Body temperature 97 [degF]Pacc 1 Work Phone: [facility]05-04-2022 09:12-0400Body .44 kgPacc 1 Work Phone: [facility]05-04-2022 09:12-0400Diastolic blood juqszxmf99 mm[Hg]Pacc 1 Work Phone: [facility]05-04-2022 09:12-0400Heart tper290 /minPacc 1 Work Phone: [facility]05-04-2022 09:12-0400Respiratory rate 16 /minPacc 1 Work Phone: [facility]05-04-2022 09:12-3869KgN9% (BldA) [Mass fraction]96 %Pacc 1 Work Phone: [facility]05-04-2022 09:12-0400Systolic blood jgahenzp198 mm[Hg]Pacc 1 Work Phone: [facility]04-25-2022 12:30-0400Diastolic blood sffuvkgv83 mm[Hg]MD Oumar Gunter Work Phone: [facility]04-25-2022 12:30-0400 Heart rate98 /minMD Oumar Gunter Work Phone: 1(177)[phone]04-25-2022 12:30-0400 Respiratory rate16 /minMD Oumar Gunter Work Phone: 1(698)034-92[facility]04-25-2022 12:30-0400 SaO2% (BldA) [Mass fraction]94 %MD Oumar Gunter Work Phone: 1(285)730-79[facility]04-25-2022 12:30-0400 Systolic blood ohbhwttf622 mm[Hg]MD Oumar Gunter Work Phone: 1(357)656-81[facility]04-25-2022 12:00-0400 Inhaled oxygen flow rate1 L/minMD Oumar Gunter Work Phone: 1(867)[phone]04-25-2022 10:21-0400 Body ejtcyqfhmcp49.2 [degF]MD Oumar Gunter Work Phone: 1(380)695-88[facility]04-25-2022 07:16-0400 Body vwsfho315.29 cmMD Oumar Gunter Work Phone: 1(331)455-81[facility]04-25-2022 07:16-0400 Body mass index (BMI) [Ratio]35.7 kg/m2MD Oumar Gunter Work Phone: 1(682)144-83[facility]04-25-2022 07:16-0400 Body kgMD Oumar Gunter Work Phone: 1(842)553-81[facility]04-08-2022 10:30-0400 Body nuwhlh370.02 cmRobert Turner II Other [employer] Other 04-08-2022 10:30-0400Body mass index (BMI) [Ratio] 35.42 kg/i2Rlbbwy Turner II Other [facility] Other 04-08-2022 10:30-0400Body oenbna40.72 kgRobert Turner II Other [employer] Other 03-02-2022 11:15-0500Body ieoyqk239.02 cmRobert Turner II Other [employer] Other 03-02-2022 11:15-0500Body mass index (BMI) [Ratio]35.6 kg/b3Tkumll Saw II Other [employer] Other 03-02-2022 11:15-0500Body .17 kgRobert Turner II Other [employer] Other Encounters Encounter DateEncounter TypeCare ProviderFacilityStart: 01-25-2025 End: 83-59-0497ijajkbpopcCsmssr E Braun MD Work Phone: [facility] 01-25[facility]2025 End: 56-31-6618Chczorc encounter Edda Gunter MD-[facility] Work Phone: Start: 12-22-2024 End: 55-06-1724pwsicpwxtsMrivlp E Braun MD Work Phone: [facility] Work Phone: Start: 12-22-2024 End: 11-63-6130Uunpddi encounter Noemí Aleman [facility] Work Phone: Start: 09-22-2024 End: 45-79-8576zxvvngkldqIlufmh E Braun MD Work Phone: [facility] Work Phone: Start: 09-22-2024 End: 88-89-7674Myldnyn encounter procedureZunildamajo Aleman [facility]ID[facility] OPERATORCarl R. [facility] Work Phone: Start: 43-07-9515Gir-patient / Non-visitFidelina Escobar MDGrays Harbor [facility] Work Phone: Start: 08-01-2024 End: 79-06-9079gvkrcspebcPouvan E Braun MD Work Phone: [facility] Work Phone: Start: 08-01-2024 End: 48-01-1498Xwetwwo encounter procedureOumar Gunter MD Work Phone: [facility] Work Phone: Start: 09-49-1138Jia-patient / Non-visitOumar Gunter MD Work Phone: [facility] [place] Work Phone: Start: 40-04-6426Bre-patient / Non-visitOmuar Gunter MD Work Phone: [facility] GroupGr[facility] Work Phone: Start: 65-81-9148Okg-patient / Non-visitOumar Gunter MD Work Phone: [facility] GroupGr[facility] Work Phone: Start: 07-25-2024 End: 27-34-2581norixgchrzFkgtgx E Braun MD Work Phone: [facility] Work Phone: Start: 07-25-2024 End: 98-49-7935Mhbtqds encounter procedureOumar Gunter MD Work Phone: [facility] GroupGrand [facility] Work Phone: Start: 22-80-8216Des-patient / Non-visitOumar Gunter MD Work Phone: [facility] Work Phone: Start: 06-27-2024 End: 39-82-8122kijwjexsmbChggxf E Braun MD Work Phone: [facility] Work Phone: Start: 06-27-2024 End: 93-33-3697Uptaupc encounter procedureOumar Gunter MD Work Phone: [facility] [place][Note 2] Orthopedics Work Phone: Start: 06-27-2024 End: 17-90-0644Kgwccsz encounter procedureOumar Gunter MD Work Phone: [facility] Start: 06-27-2024 End: 06-74-7198xndmgdawqkIotjbr E Braun MD Work Phone: [facility] Work Phone: Start: 06-23-2024 End: 72-35-0988cgcuuhphopJedqrasdqSalem [facility] Work Phone: Start: 06-23-2024 End: 20-04-3221Eseafrs encounter procedureBrianriverside behavioral [facility] center Physician [facility] [place][Note 2] Palliative Work Phone: Start: 05-09-2024 End: 81-66-1757qxnqgevjciDpmvaunlrSalem Regional Medical Center Work Phone: Start: 05-09-2024 End: 58-58-8843Bwwdjbh encounter procedureBrianriverside behavioral health center Physician [facility] [place][Note 2] Palliative Work Phone: Start: 05-05-2024 End: 29-16-0561Wrrevfh encounter procedureBrianriverside behavioral health center Physician [facility] [place][Note 2] Palliative Work Phone: Start: 04-26-2024 End: 28-89-8521Lvddnqh encounter procedureBrianriverside behavioral health center Physician [facility] [place][Note 2] Palliative Work Phone: Start: 88-71-6558Xysbwpk encounter procedureCincinnati [facility] Medical Centertart: 03-06-2024 End: 07-89-1047Tckyvac encounter procedureC[facility] Physician GroupGrand [facility] Work Phone: Start: 62-80-4488Ebk-patient / Non-visitCape Fear/[facility] Health Physician GroupGr[facility] Work Phone: Start: 06-15-2023 End: 82-70-6907jxiywifxpvEE Oumar Gunter Work Phone: [facility] Work Phone: Start: 06-15-2023 End: 77-53-8036Qfxegnbh ReferredMD Oumar Gunter Work Phone: [facility]-LAB [facility] HospStart: 89-27-5167Fbs-patient / Non-visitMD Oumar Gunter Work Phone: [facility] Physician [facility] [place] Work Phone: Start: 06-02-2023 End: 39-51-9317Ykmubmq encounter procedureMD Oumar Gunter Work Phone: [facility] GroupGrand [facility] Work Phone: Start: 29-39-1149Abv-patient / Non-visitMD Oumar Gunter Work Phone: [facility] GroupGrand [facility] Work Phone: Start: 62-16-0658Ajr-patient / Non-visitMD Oumar Gunter Work Phone: [facility] GroupGr[facility] Work Phone: Start: 85-28-0825Cnw-patient / Non-visitMD Oumar Gunter Work Phone: [facility] [place] Work Phone: Start: 07-08-4102Jjn-patient / Non-visitMD Oumar Gunter Work Phone: [facility]sp Physician GroupGr[facility] Work Phone: Start: 71-61-1860Aid-patient / Non-visitMD Oumar Gunter Work Phone: [facility]Gr[facility] Work Phone: Start: 00-10-3222Kdf-patient / Non-visitMD Oumar Gunter Work Phone: [facility] GroupGr[facility] Work Phone: Start: 97-73-6795Idl-patient / Non-visitMD Oumar Gunter Work Phone: [facility] [place] Work Phone: Start: 05-04-2023 End: 82-58-7493rhwhgolvbfCdvkry Lyric Other [facility] [email or web address] Other Start: 87-36-2160Pqzybmodv encounterOumar GunterMagruder Memorial Hospital ClinicStart: 03-10-2023 End: 64-26-4008zgotwpghsqCyryij Lyric Other [facility] [email or web address] Other Start: 80-96-0714Rlodab outpatient visit 15 minutes Oumar LyricMagruder Memorial Hospital ClinicStart: 03-09-2023 End: 60-70-4449racvjmgwrqVchbq Njoroge Other [facility] [email or web address] Other Start: 89-21-7624Mlkogl outpatient visit 25 minutes [facility] CardiologyStart: 53-62-1185Vsazunarg encounterMarcia LyricMagruder Memorial Hospital ClinicStart: 03-03-2023 End: 34-59-8744ngzutjoimmGL Oumar Gunter Work Phone: noAudiam [email or web address] Other Start: 03-03-2023 End: 06-58-3053Qrlvvam encounter procedureMD Oumar Gunter Work Phone: [facility]-Respiratory Therapy Work Phone: Start: 03-02-2023 End: 08-82-5563Rvnpeic encounter procedureMD Oumar Gunter Work Phone: [facility]-Electrodiagnostics Work Phone: Start: 02-25-2023 End: 96-24-0904tbtesdlhuaWI Marcia E Braun Work Phone: [facility] Work Phone: Start: 02-25-2023 End: 11-14-2013Igerghb encounter procedureMD Oumar Gunter Work Phone: [facility]-Electrodiagnostics Work Phone: Start: 02-15-2023 End: 40-69-1524exvasqmsidTqtdgf Braun Other [employer] Other Start: 85-22-4972Gtzeqjgpq encounterOumar Brown [facility] Centertart: 02-10-2023 End: 67-81-9483yhlwuuwipyJcbbk Myra Other [facility] Other Start: 06-31-6978Emgzeqpmq encounterLinda MyraFPRod Referral CoordinatorStart: 02-08-2023 End: 46-53-0655diismmmtctGygug Myra Other [employer] Other Start: 95-45-2817Nhjxub outpatient new 45 minutesLinda Jimmy CardiologyStart: 02-01-2023 End: 65-71-6463hsurzhmkzrIyaabi Braun Other [employer] Other Start: 12-61-6031Fcyuibpfl encounterMarcia [facility] ClinicStart: 01-05-2023 End: 67-32-7072qnbhrmuxyhDkjgzn Gunter Other [facility] Other Start: 35-41-1180Qmirjnzxi encounterMarcia [facility] ClinicStart: 12-31-2022 End: 41-63-5600rsxdytulfwNrxgka Gunter Other [facility] Other Start: 59-12-7891Cibgwjkvq encounterMarcia [facility] ClinicStart: 10-01-2022 End: 54-11-8427brfiljkpyeWrsamv Gunter Other [facility] Other Start: 44-84-1385Ksejirhia encounterMarcia [facility] ClinicStart: 09-23-2022 End: 40-85-3194dtblevdvhaFkvdpm Gunter Other [facility] Other Start: 63-89-2011Nbhchzsar encounterMarcia [facility] ClinicStart: 09-09-2022 End: 91-79-5570expfksxranGgmevo Gunter Other [facility] Other Start: 16-42-3003Dgqorxyxu encounterMarcia [facility] ClinicStart: 09-08-2022 End: 73-44-6716kafughallaSdzygw Gunter Other [facility] Other Start: 04-05-9536Goxpjt outpatient visit 25 minutes Oumar GunterYAVAPAI REGIONAL [facility] ClinicStart: 07-03-2022 End: 07-85-9857odbpgxwxwkSnbppg Gunter Other [place] Other Start: 10-26-1003Ajhfkmqha encounterMarcia LyricFPG [facility] ClinicStart: 07-02-2022 End: 20-20-7167Potktos encounter procedureMD Oumar Gunter Work Phone: [facility] Start: 07-02-2022 End: 74-39-2644lsqglcdvtoNS Oumar San Gunter Work Phone: [facility] Work Phone: Start: 06-03-2022 End: 99-30-9024ybrlpydyumIcqnyf Braun Other [employer] Other Start: 47-42-0746Dmeaggvkt encounterMarciaditi [facility] ClinicStart: 04-08-2022 End: 45-29-5521pnqysgwnvxNqifdo Braun Other [employer] Other Start: 61-55-2534Svhsbqgze encounterMarciaditi [facility] ClinicStart: 55-29-1012rilafrrkcgFO OUMAR GUNTERFacility:A6Daavo: 10-17-2021 End: 69-85-7685qkwrrllfbfUV OUMAR GUNTERFacility:G4Gyieb: 10-16-2021 End: 90-65-0947Exxlrwt encounter procedureMD Oumar Gunter Work Phone: [facility] Start: 09-18-2021 End: 03-26-5043cjcibkunpkNomqfw Turner II Other [facility] Other Start: 03-94-5995Rakmmm outpatient visit 15 minutes Miguel MOJICA [facility]icsStart: 09-04-2021(Post-Op) Post-Op Miguel MOJICAG [facility]icsStart: 09-04-2021 End: 21-65-0441eveaepozdxVbvctf Saw II Other [facility] Other start: 09-04-2021 End: 42-55-6375Kdjmuah encounter procedureMD Oumar Lyric Work Phone: [facility] Start: 08-27-2021 End: 65-28-9548bokfktuksnFHRUNF CARLISLEFacility:A9Srafn: 08-20-2021 End: 78-51-1462Fcfbylz encounter procedureStepleanna Pacheco OD Work Phone: OphthalmologyComment on above:S/P cataract extraction and insertion of intraocular lens, left (Primary Dx); 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Start: 08-07-2021 (Post-Op) Post-OpRobert Saw IIFPG [facility] Orth[facility]icsStart: 08-07-2021 End: 07-47-5175zsppkoeqpqLrucsf Turner II Other [place] [email or web address] Other Start: 08-07-2021 End: 89-43-1805Gzwthah encounter procedureAikimberly Infante MD Work Phone: OphthalmologyComment on above:S/P cataract extraction and insertion of intraocular lens, left (Primary Dx); 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Start: 07-30-2021 End: 93-66-3594Jsovzza encounter procedureEye Measurements Work Phone: OphthalmologyComment on above:Combined forms of age- related cataract of both eyesStart: 07-30-2021 End: 73-74-4028Irbnddfan to establishmentPacc Wiley 1 Work Phone: [facility] FHCStart: 07-30-2021 End: 73-43-2486oinkvaiqiiWjhe Wiley 1 Work Phone: Pre AnesthesiaComment on above:Pre-op evaluation (Primary Dx); Cataract of both eyes, unspecified cataract type; Other hyperlipidemia; Complex regional pain syndrome type 1, affecting unspecified siteStart: 07-30-2021 End: 00-27-9497Cczzrgwfucuwo examination donePacc [place] 1 Work Phone: Pre AnesthesiaStart: 07-23-2021 End: 30-88-4216zvomoruvldMuvegl Turner II Other noPersado Other Start: 02-05-2602Cvqdacdhv encounterRobert Turner II [facility]Start: 07-21-2021 End: 00-79-1618cypiyntileXgrvcw Saw II Other noPersado Other Start: 95-92-8783Gfdtkgjho encounterRobert Turner II [facility]Start: 07-21-2021 End: 99-15-2936Zemxxidtq to same day surgery center Oumar Lyric Work Phone: [facility] Main CampusStart: 07-11-2021(Prolonged) Prolonged ServicesRobert Turner IIFP[facility] OrthopedicsStart: 07-11-2021 End: 13-22-3156gtjpfvyuhwCoafdu Saw II Other noPersado Other Start: 07-10-2021 End: 94-21-5878efelipwvrwYvavyo Turner II Other [facility] Other Start: 52-32-7222Dfnmnknjb encounterRobert Turner II [facility]icsStart: 07-04-2021 End: 98-90-7794gvtoqqwsxwJpaalk Saw II Other noPersado Other Start: 79-43-5261Phtxmqycs for other preprocedural examinationRobert Turner IIFP[facility] OrthopedicsStart: 57-70-6905Zlykfpv encounter procedureRobert Turner II[facility]icsStart: 05-28-2021 End: 88-38-9766daqhzodaprGmdbix Saw II Other [place] [email or web address] Other Start: 33-78-2833Ywndjixxf for other preprocedural examinationRobert Turner IIFP[facility] OrthopedicsStart: 40-84-5436Jchywo outpatient visit 40 minutesRobert Turner IIFP[facility] OrthopedicsStart: 04-28-2021 End: 08-77-3075odhiofqymrMC OUMAR GUNTERFacility:A0Gdani: 04-03-2021 End: 63-90-6679ljpamtihvcNR OUMAR GUNTERFacility:J2Ipjwz: 04-01-2021 End: 78-43-3423trgvaqdgizKT MARCIA E BRAUNFacility:P3Radki: 02-04-2021 End: 14-58-1078cpwlcpxhmoCHMQXQ H FAWWADFacility:H1 Procedures DateProcedureProcedure DetailPerforming ClinicianStart: 42-66-8158Tgkql X-ray of left wristOumar Gunter MD Work Phone: Start: 09-90-5123Dqqbszpt identified in Sputum by Respiratory cultureMD Oumar Gunter Work Phone: Start: 65-99-1802Pgubbcjijdv observation [Identifier] in Unspecified specimen by Gram stainMD Oumar Gunter Work Phone: Start: 20-04-0481Vkkfr Culture 1MD Oumar Gunter Work Phone: Start: 58-07-6743Ieemi Culture 2MD Oumar Gunter Work Phone: Start: 58-87-2595J-ray of left kneeMD Oumar Gunter Work Phone: Start: 83-22-1223Mqiab X-ray of left femurMD Oumar Gunter Work Phone: Start: 20-31-2410Rcgwx X-ray of left tibia and left fibulaMD Oumar Gunter Work Phone: Start: 32-21-2114Y-ray of left kneeMD Oumar Gunter Work Phone: Start: 39-50-5334M-ray of left kneeMD Oumar Gunter Work Phone: Start: 59-31-1087CAI BIOMETRY W/ IOL CALC OU (BOTH EYES)Jennifer Infante MD Work Phone: Start: 91-13-8696H-ray of left kneeMD Oumar Gunter Work Phone: Start: 11-66-1847Joalb replacement of left knee joint MD Oumar Gunter Work Phone: Start: 37-77-3075Kuprw depression screening assessment Eye Measurements Work Phone: Plan of Treatment DateCare ActivityDetailAuthorStart: 44-22-1267Bttly X-ray of left wristXR wrist LT min 3V*[facility] Centertart: 44-96-7134YV Wrist - left GE 3 ViewsCincinnati Children's Hospital Medical Centertart: 61-67-5486Sihulie referral [facility] Work Phone: Start: 26-69-5291Ynalfjg referralMercy Health [facility] Work Phone: Start: 39-33-3378Nvewwrsibeua myocardial perfusion stress studyNM priscila perf SPECT rest & strCincinnati Children's Hospital Medical Centertart: 29-33-4905Uzpzmtuok vaccinationINFLUENZA (Season Ended)[facility]: 07-21-2021 End: 41-10-9322HfogsslojMercy Health Clermont Hospital Ctr Work Phone: Start: 97-90-9446SHVZP-19 VACCINE (4 - Booster for Pfizer series)COVID-19 VACCINE (4 - Booster for Pfizer series)[facility] Start: 05-55-5544QJHKIKJ DIRECTIVE DISCUSSIONADVANCE DIRECTIVE DISCUSSION [place] [facility]art: 46-76-7505HMQIZPFF SCREENDIABETES SCREENMercy Health St. [facility]'S Medical Center Start: 68-01-3824Wjibm depression screening assessmentDEPRESSION SCREENING [facility]ictart: 90-48-7301GBEF DENSITYBONE DENSITYCleveland Clinictart: 64-04-2799VWLQFXZHN AGE 65 AND OVER WITH 5YR LOOKBACK (#1)PNEUMOVAX AGE 65 AND OVER WITH 5YR LOOKBACK (#1)[facility]: 46-09-8763UURWTORF VACCINE (2 of 3)SHINGRIX VACCINE (2 of 3)[facility]: 65-01-1821Qpxpf microalbumin profileDTAP,TDAP,TD (1 - Tdap)[facility] 1963 ANNUAL PCP TEAM CHRONIC DISEASE VISITANNUAL PCP TEAM CHRONIC DISEASE VISIT [facility]: 46-62-8654FXFREGERT C SCREENINGHEPATITIS C SCREENING [facility]rt: 28-43-6193CNEFIKRLHRWM: 65+ (1 - PCV)PNEUMOCOCCAL: 65+ (1 - PCV)[facility]S Medical CenterComprehensive metabolic 2000 panel - Serum or Plasma [facility] HospitalPatient referralWadsworth-[facility] Work Phone: Urine cultureMercy Health Clermont HospitalXR Chest 2 [facility] 2 [facility] Ribs - right [facility] Immunizations Immunization DateImmunizationNotesCare NbtvudypBpslqlrt26-05-4564skthepuyx, high dose seasonal, preservative-freeMercy Health Clermont Hospital10-25-2023 influenza, high dose seasonal, preservative-freeElysiaa Lyric Other noPersado Other [id number] virus vaccine, unspecified formulationMD Oumar Gunter Work Phone: [facility]10-14-2022influenza virus vaccine, split virus (incl. purified surface antigen)uOmar Gunter Other [facility] Other 10195786-11-6823byzzyljxr virus vaccine, unspecified formulationMD Oumar Gunter Work Phone: [facility]11-16-2021COVID-19 mRNA, Comirnatjanee (Pfizer)MD Oumar Gunter Work Phone: [facility]10-14-2021influenza virus vaccine, split virus (incl. purified surface antigen)Oumar Gunter Other [facility] Other [id number] virus vaccine, unspecified formulationMD Oumar Gunter Work Phone: [facility]03-04-2021COVID-19 mRNAIon (Pfizer)MD Oumar Gunter Work Phone: [phone]02-11-2021COVID-19 mRNAIon (QikServe)MD Oumar Gunter Work Phone: [phone]09-17-2020influenza virus vaccine, split virus (incl. purified surface antigen)Oumar Gunter Other [place] [email or web address] Other [id number] virus vaccine, unspecified formulationMD Oumar Gunter Work Phone: [facility]10-17-2019influenza virus vaccine, split virus (incl. purified surface antigen)Oumar Gunter Other [facility] [email or web address] Other 10912404-37-1903ljqzjeivy virus vaccine, unspecified formulationMD Oumar Gunter Work Phone: [facility]09-29-2010zoster vaccine, liveEye Measurements Work Phone: [facility] Payers DatePayer CategoryPayerPolicy [id number] MEDICARE HUMANA MEDICARE PPO [id number] 2021-Present [phone] [address] [address] [place] [address] [id number] 1960Medicare [id number]-pay [id number] [id number] [id number] 2.16.840.1.529899.3.57[id number] 2.16.840.1.774860.3.57[id number] 2.16.840.1.203873.3.57[id number] 2.16.840.1.2[id number] 2.16.840.1.783763.3.579.2.531 Social History DateTypeDetailFacilityStart: 12-25-2010 End: 32-83-4388Zjzsuiv smoking status NHISNever smoked tobaccoMercy Health St. Rita'S Medical Center Start: 47-53-2047Fbcflta use and exposureSmokeless tobacco non-userC[facility] Clinictart: 07-30-2021 End: 64-49-2085Cwpjhxz intakeCurrent drinker of alcohol (finding)[facility]: 51-65-0633Lrawsxi SDOH Alcohol Commentvery rareMercy Health St. Rita'S Medical Center Start: 53-49-5324Alx Assigned At BirthFeSelect Medical [facility] Clinic Rehabilitation Hospital, Beachwoodtart: 06-29-2021 End: 76-86-6127Blltacnr to SARS-CoV-2 (event)Not sureC[place] Clinicex Assigned At BirthSex Assigned At BirthNorth [email or web address] Other Start: 05-09-2024 End: 30-06-5593GvmNbgtlp (finding)[facility] Equipment Procedure CodeEquipment CodeEquipment Original TextEquipment IdentifierDates Arthroplasty, knee, total, minimally invasiveOrthopaedic cement, non-medicated ()[id number] FDAStart: 95-68-3592Igrgqwnvwzlc, knee, total, minimally invasiveUncoated knee femur prosthesis ()[id number] FDAStart: 77-28-1937Zovzxyzhyapa, knee, total, minimally invasiveTibial insert()[id number] FDAStart: 11-03-3662Rqsbovmomudp, knee, total, minimally invasivePolyethylene patella prosthesis()[id number] FDAStart: 07-21-2021 Arthroplasty, knee, total, minimally invasiveKnee stem ()[id number] FDAStart: 70-92-8029Zftxlrjjpcbk, knee, total, minimally invasiveUncoated knee tibia prosthesis, metallic ()[id number] FDAStart: 15-55-0127Jfdqep Nrstm Pls Imp Chrg Kt - [id number]: 05-75-6534Pep-Of-A-Kind Implant - [id number]: 07-05-2241Qsxkbag on above:Description: LINEAR ST 70CM 8 CONTACT LEAD AQIQbx-Nf-X-Kind Implant - [id number]_gmuNcued: 96-02-4072Xxukubu on above:Description: CLIK ANCHORKit Stim 50cm Porsha 8 Cntct Ld - [id number]_mhuSdrhb: 40-19-1729Smqr Iol 0d +13 Tony Uv Abs - [id number]: 25-87-6989Fvpgnio on above:Description: -0.39Lens Iol 0d +13 Tony Uv Abs - [id number]: 75-79-7833Nyvwdzf on above: Description: -0.48 Goals DatePatient GoalDesired Activity/State Clinical Notes 02-05-2021 to 12-22-2024 Note Date & ZletJuxaKhwkafpm88-57-4520 Evaluation note* Diagnosis Onset Date Resolution Status Admit Date 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 acuteSeptember 2024 9:53amCoughacuteOctober 2024 2:10pmModerate COPD (chronic obstructive pulmonary disease)acuteOctober 2024 2:10pmRib pain on right sideacuteOctober 2024 2:10pm [facility] Work Phone: 1(314) 534-916404-01-2025 Evaluation note* Diagnosis Onset Date Resolution Status Admit Date Arthritis of carpometacarpal (CMC) joint of left thumb acuteApril 2024 1:57pmArthritis of bujzvodh-jcgdhcgbf-sdgotvdqi joint of left handacuteApril 2024 1:57pmLeft hand painacuteApril 2024 1:57pm ConfusionacuteApril 2024 10:55amCoughacuteApril 2024 10:55amFall acuteApril 2024 10:55amRib fractureacuteApril 2024 10:55amCHF (congestive heart failure)acuteMay 2024 1:31pmEdemaacuteMay 2024 1:31pm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acuteJune 2024 10:02am [facility] Work Phone: [phone] 866-611203-28-2025 Evaluation note* Diagnosis Onset Date Resolution Status Admit Date 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 acuteMarch 2024 9:46amArthritis of carpometacarpal (CMC) joint of left thumbacuteApril 2024 1:57pmArthritis of klfserbm-dtajkudaj-kkraaontz joint of left handacuteApril 2024 1:57pmLeft hand painacuteApril 2024 1:57pm ConfusionacuteApril 2024 10:55amCoughacuteApril 2024 10:55amFall acuteApril 2024 10:55amRib fractureacuteApril 2024 10:55amCHF (congestive heart failure)acuteMay 2024 1:31pmEdemaacuteMay 2024 1:31pm [facility] Work Phone: 1(506) 644-470201-29-2025 Evaluation note* Diagnosis Onset Date Resolution Status Admit Date 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 acuteJanuary 2024 9:25amConstipationacuteJanuary 2024 9:25am Encounter for palliative careacuteJanuary 2024 9:25am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acuteMarch 2024 9:46amNeuropathic pain, leg, bilateral acuteMarch 2024 9:46am [facility] Work Phone: [phone]) 571-665101-29-2025 Evaluation note* Diagnosis Onset Date Resolution Status Admit Date 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 acuteJanuary 2024 9:25amConstipationacuteJanuary 2024 9:25am Encounter for palliative careacuteJanuary 2024 9:25am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acuteMarch 2024 9:46amArthritis of carpometacarpal (CMC) joint of left thumbacuteApril 2024 1:57pmArthritis of umrikdjt-pulkijite-puhwkgwht joint of left handacuteApril 2024 1:57pmLeft hand painacuteApril 2024 1:57pm [facility] Work Phone: 1(343) 440-265801-29-2025 Evaluation note* Diagnosis Onset Date Resolution Status Admit Date 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 acuteJanuary 2024 9:25amConstipationacuteJanuary 2024 9:25am Encounter for palliative careacuteJanuary 2024 9:25am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acuteMarch 2024 9:46amArthritis of carpometacarpal (CMC) joint of left thumbacuteApril 2024 1:57pmArthritis of lqzosklu-qdpggdgao-brzqtebvq joint of left handacuteApril 2024 1:57pmLeft hand painacuteApril 2024 1:57pmConfusionacuteApril 2024 10:55amCough acuteApril 2024 10:55amFallacuteApril 2024 10:55amRib fractureacute Catherine 2024 10:55am [facility] Work Phone: 1(530) 498-780512-09-2024 Evaluation note* Diagnosis Onset Date Resolution Status Admit Date Chronic thoracic back pain acuteDecember 2023 11:41amLeft wrist painacuteDecember 2023 11:41am Medicare annual wellness visit, subsequentacuteDeceer 2023 11:41am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acuteJanuary 2024 9:25amConstipationacute Imelda 2024 9:25amEncounter for palliative careacuteJanuary 2024 9:25am [facility] Work Phone: 1(493) 571-457302-06-2024 Evaluation note* Encounter Date Diagnosis Assessment Notes Treatment Notes Treatment Clinical Notes Apr, Neuropathic pain, leg, bilateral (ICD-10 - G57.93) [facility] Other 12-13-2023 Evaluation note* Encounter Date Diagnosis [...] from Cardiology - followup in 1 yr. [facility] Other 12-12-2023 Evaluation note* Encounter Date Diagnosis Assessment Notes Treatment Notes Treatment Clinical Notes Feb, Pulmonary HTN (ICD-10 - I27.20) Ms Tang is a 77yoF with PMH of hypertension, osteoarthritis, repots hx of CHF in 2002 to due to stress, hx of L breast cancer s/p bilateral mastectomy in 2009-no chemo or radiation. Referred Juan Jose Gunter for abnormal echocardiogram. Echo preformed at [facility] 12/29/2022 showed EF 55-60% with normal diastolic function. Normal RV size and function with RVSP of 37 mmHg.. Patient states she has experienced SOB and diaphoresis for approximately the last 6 months, denies CP or palpitations, BLE edema, orthopnea, PND or weight gain. 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 [...] (chronic obstructive pulmonary disease) (ICD-10 - J44.9) [facility] Other 12-06-2023 Evaluation note* Encounter Date Diagnosis Assessment Notes Treatment Notes Treatment Clinical Notes Feb, Neuropathic pain, leg, bilateral (ICD-10 - G57.93) [facility] Other 11-20-2023 Evaluation note* Encounter Date Diagnosis Assessment Notes Treatment Notes Treatment Clinical Notes Jan, Pulmonary HTN (ICD-10 - I27.20) [facility] Other 11-13-2023 Evaluation note* Encounter Date Diagnosis Assessment Notes Treatment Notes Treatment Clinical Notes Jan, Pulmonary HTN (ICD-10 - I27.20) Ms Tang is a 77yoF with PMH of hypertension, osteoarthritis, repots hx of CHF in 2002 to due to stress, hx of L breast cancer s/p bilateral mastectomy in 2009-no chemo or radiation. Referred byDr Oumar Gunter for abnormal echocardiogram. Echo preformed at [facility] 12/29/2022 showed EF 55-60% with normal [...] (ICD-10 - R06.02) Jan,iaphoresis (ICD-10 - R61) [facility] Other 11-06-2023 Evaluation note* Encounter Date Diagnosis Assessment Notes Treatment Notes Treatment Clinical Notes Jan, Neuropathic pain, leg, bilateral (ICD-10 - G57.93) [facility] Other 10-05-2023 Evaluation note* Encounter Date Diagnosis Assessment Notes Treatment Notes Treatment Clinical Notes Dec, Acute thoracic back pain, unspecified back pain laterality (ICD-10 - M54.6) [facility] Other 07-06-2023 Evaluation note* Encounter Date Diagnosis Assessment Notes Treatment Notes Treatment Clinical Notes Sep, Acute thoracic back pain, unspecified back pain laterality (ICD-10 - M54.6) [facility] Other 06-13-2023 Evaluation note* Encounter Date Diagnosis [...] that present medications do control her symptoms. 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 The Medrol Dosepak seem to help her significantly with the inflammation. She can continue activities as tolerated and continue working with physical therapy as recommended. Follow-up in 4 weeks for repeat examination and long standing x-rays. 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 We will get her on a Medrol Dosepak to try and help with some of this inflammation I think that is going on in that knee. I will see her back in 2 weeks just to recheck to make sure she is continuing to improve. Patient may continue activities as tolerated. Continue PT as recommended. Continue taking ejuk-cdq-kytqfhx anti-inflammatories as needed for assistance with swelling and pain associated with the operative extremity. Follow-up in 2 for a recheck and then 4 weeks for repeat examination and long standing x-rays. [facility] Other 05-25-2022 NoteHNO ID: [id number] Author: Mary Pacheco OD Service: ? Author Type: HUMAN RESOURCES COMPENSATION ANALYST Type: Progress Notes Filed: 08/20/2021 8:56 AM [...] Mary Pacheco, OD August 20, 2021 8:55 [facility]05-25-20[facility] History of Present illness Narrative* Mary Pacheco, [...] Mary Pacheco, OD August 20, 2021 8:55 AM documented in this encounterMercy Health St. 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 Zipline removed. Steri-Strips [...] 3 view x-rays of the left knee. [facility] Other 05-12-2022 NoteHNO ID: [id number] Author: Mary Pacheco OD Service: ? Author Type: HUMAN RESOURCES COMPENSATION ANALYST Type: Progress Notes Filed: 08/07/2021 9:08 AM [...] scheduled I have interviewed and examined Catherine Thornton Armen. I have confirmed and edited as necessary the chief complaint, history of present illness, past medical history, medications, family history, social history, review of systems, and exam findings as obtained by others. I agree with the assessment and plan as stated above. Mary Pacheco, OD August 07, 2021 8:59 [facility]05-12-2022 History of Present illness Narrative* Mary Pacheco, [...] 07, 2021 8:59 AM documented in this encounterMercy Health St. [facility]05-04-2022 NoteHNO ID: [id number] Author: PARK Cedeño Service: ? Author Type: Manufacturing Operations Manager Type: Progress Notes Filed: 07/30/2021 10:04 AM Note Text: CONFIRM AIM PLANO BOTH EYES. IQ IOL PATIENT AWARE THAT HE WILL NEED GLASSES FOR ALL DISTANCES. [facility] CedeñoCl[facility]05-[facility] History of Present illness Narrative* PARK Cedeño - 07/30/2021 10:00 AM EDT CONFIRM AIM PLANO BOTH EYES. IQ IOL PATIENT AWARE THAT HE WILL NEED GLASSES FOR ALL DISTANCES. PARK Cedeño documented in this encounterMercy Health St. [facility]05-04-2022 Instructions* Patient Instructions* Shikha Kate APRN.JIN - 07/30/2021 9:23 AM EDT PATIENT PREOPERATIVE INSTRUCTIONS Jennifer Infante V, MD has scheduled you for your procedure at this surgery center: [place]: [phone] --[address] [place] [address]. Please read below carefully for your personalized [...] Advance Directive, please fax a copy to [phone] or email to for it to be [...] into your chart that day. Shikha Kate APRN.JIN documented in this encounterMercy Health St. [facility]05-04-2022 History and physical note * [...] with implants PAST SURGICAL HISTORY OF SCS ([employer]) TOTAL KNEE REPLACEMENT Left FAMILY HISTORY [...] fevers. Neuro: No history of TIA's, stroke, ASSISTANT MANAGER QUALITY MANAGEMENT tumor, impaired sensorium, hemiplegia, paraplegia or quadraplegia. No neurological symptoms or problems. Respiratory: No history of current cough or dyspnea, or pneumonia in the past 6 weeks. No history of respiratory/pulmonary symptoms or problems. Cardiovascular: No history of HTN requiring medication, no history of angina, CHF, ND, cardiac surgery or stents. Denies rest pain, gangrene or revascularization/amputation for PVD. No history of cardiovascular symptoms or problems. +HLD GI: No history of GI symptoms or problems. No history of esophageal varices, recent ascites, or ETOH greater than 2 drinks per day. : No history of dysuria, frequency or incontinence,, stones or chronic kidney disease +urgency SKIVER SOCK LININGS: Negative for abnormal vaginal bleeding, abnormal vaginal [...] 2021 TIME: 8:51 AM documented in this encounterMercy Health St. [facility]04-15-2022 Evaluation note* Encounter Date Diagnosis [...] patient could proceed with surgery safely. The facility maintenance manager was vital for surgery timing and [...] plans. Prolonged services time spent: 32 minutes [facility] Other 04-14-2022 Evaluation note* Encounter Date Diagnosis Assessment Notes Treatment Notes Treatment Clinical Notes Jun, Age-related osteopor osis without current pathological fracture (ICD-10 - M81.0) [facility] Other 04-08-2022 Evaluation note* Encounter Date Diagnosis [...] pain control. Joints Meeting Checklist - Pharmacy: [facility] med to bed - Approach/Technique: ALICIA - Implants: [...] elected to proceed with the above surgery. 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 [facility] Other 03-01-2022 NoteHNO ID: [id number] Author: Jennifer Infante V, MD Service: ? Author Type: Physician Type: Progress Notes Filed: 05/27/2021 1:01 PM Note Text: The documentation for this note was completed by Dianelys Mai COA acting as a scribe for Jennifer INFANTE MD. 05/27/2021 12:53 PM. ASSESSMENT / PLAN: 1. Combined cataract, both eyes - Offered cataract extraction by phacoemulsification and intraocular lens implant with Dr. Infante, both eyes, left eye first - Aim: [place] Both eyes [monocular precautions following Cataract extraction] [...] patient was offered a surgery/procedure at a [facility] facility. The surgeon/proceduralist and patient [...] by others. I have seen and examined aCtherine Tang. I also have reviewed and agree with the assessment and plan as stated above and agree with all of its relevant components. Jennifer INFANTE MD May 27, 2021 12:[address] [facility]03-01-2022 NoteHNO ID: [id number] Author: Scout Gayle OD Service: ? Author Type: HUMAN RESOURCES COMPENSATION ANALYST Type: Progress Notes Filed: 05/27/2021 1:02 PM [...] with all of its relevant components. Scout Gayle OD May 27, 2021 12:[address] [facility]11-10-2021 NotePROCEDURE: XR KNEE LT 3V HISTORY: Pain [...] Electronically authenticated by: CIARRA [place] Date: 2021-02-05 16:48[facility] Diagnosis Combined forms of age-related cataract of both eyes Other and combined forms of senile cataract Combined forms of age-related cataract of both eyes Other and combined forms of senile cataract Combined forms of age-related cataract of both eyes Other and combined forms of senile cataract documented in this encounter [facility] note* Diagnosis Pre-op evaluation- Primary Preoperative examination, unspecified Cataract of both eyes, unspecified cataract type Other hyperlipidemia Complex regional pain syndrome type 1, affecting unspecified site Combined forms of age-related cataract of both eyes Other and combined forms of senile cataract Combined forms of age-related cataract of both eyes Other and combined forms of senile cataract documented in this encounter [facility] note* Diagnosis S/P cataract extraction and insertion of intraocular lens, left- Primary 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 Other and combined forms of senile cataract documented in this encounter [facility] note* Diagnosis S/P cataract extraction and insertion of intraocular lens, left- Primary 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 Work Phone: History general Narrative - Reported* Type Description Date Medical History hypertension Medical HistoryhypercholesterolemiaMedical HistoryneuropathyMedical History macular degenerationSurgical HistoryC [id number] Historybilateral [id number] [employer] Other History general Narrative - Reported* Type Description Date Medical History hypertension Medical HistoryhypercholesterolemiaMedical HistoryneuropathyMedical History macular degenerationSurgical HistoryC [id number] Historybilateral [id number] HistoryLTKA [employer] Other Hisnljg general Narrative - Reported* Type Description Date Medical History hypertension Medical HistoryhypercholesterolemiaMedical HistoryneuropathyMedical History macular degenerationSurgical HistoryC [id number] Historybilateral [id number] HistoryLTKAHospitalization Historysee surgical history [employer] Other Reason for referral (narrative)No reason for referral information available[facility] Work Phone: Advance Directives TypeDate RecordedPatient RepresentativeExplanationAdvance [...] the event of a Fluress shortage, administer [place]-Fluor 1 drop intoboth eyes as directed for [...] 2024 1 1:41am Medicare annual wellness visit, josee nt March 06, 2024 11:41am 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 Ezequiel hamm [...] 262024 9:25am 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 [facility] 2024 9:46am Neuropathic pain, leg, bilateral May [...] 262024 9:25am 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 [facility] 2024 9:46am Arthritis of carpometacarpal (CMC) [...] Amb Documentation July 18, 2024 1:2 7pm [facility] f/u fall July 25, 2024 10: 55am Reason for Visit Admit Date 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 Ezequiel hamm 2024 9:25am Constipation April 26, 2024 9 :25am Encounter for palliative care April 262024 9:25am 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 [facility] 2024 9:46am Arthritis of carpometacarpal (CMC) [...] Admit Date 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 [facility] 2024 9:46am Arthritis of carpometacarpal (CMC) joint of left thumb June 27, 2024 1:57pm Arthritis of zhzibaex-gcimcxxqt-xtlsspwg d joint of left hand June 27, [...] thumb June 27, 2024 1:57pm Arthritis of agcsesqo-xjtlvykxu-bvjshfmd d joint of left hand June 27, [...] 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 Nov 9:53am Chief Complaint Admit Date Patient here for a 3 month f/u December 22, 2024 9:53am Rib Pain January 25, 2025 2 :10pm Reason for Visit Admit Date 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 Nov 9:53am Cough January 25, 2025 2 :10pm Moderate COPD (chronic obstructive pulmo nary disease) January 25, 2025 2:10pm Rib pain on right side January 25 2:10pm Reason for Referral Reason *03/16 Dr Reed in [place] Diagnosis 1 Moderate COPD (chron ic obstructive pulmonary disease) (J44.9) Referral Organization [facility] Cardiology Referring Provider First Name Referring Provider Last Name Myra Referring Provider Specialty Cardiovascu lar Disease Referred Organization Unknown Facility Referred Provider Larry Reed Referred Provider Specialty Pulmonary Di seases Referral Priority Routine General Notes Macy Mccarthy 05:34:06 PM >received today, attachments made, referral faxed Reason *09/22 [place] office - word finding issues. MRI pending. 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) Referral Organization [facility] Geronimo Cunningham C heri Referring Provider First Name Oumar Referring Provider Last Name Lyric Referring Provider Specialty Family [facility] Referred Organization [facility] Referred Provider Curt Espinalle Referred Address [address] [place], [place],[address] Referred Provider Specialty Neurology Referral Priority Routine General Notes Alenjohn Macy 03:49:19 PM >received today, attachments made, notes locked, referral faxed Additional Source Comments Source Comments (unrecognize d section and content) In the event this informatio n is protected by the Federal Confidentiality of Alcohol and Drug Abuse Patient Records regulations: The Federal rules restrict any use of the information to criminally investigate or prosecute any alcohol or drug abuse patient.[facility] the event this information is protected by the Federal Confidentiality of Alcohol and Drug Abuse Patient Records regulations: The Federal rules restrict any use of the information to criminally investigate or prosecute any alcohol or drug abuse patient.[facility] Center[facility] the event this information is protected by the Federal Confidentiality of Alcohol and Drug Abuse Patient Records regulations: The Federal rules restrict any use of the information to criminally investigate or prosecute any alcohol or drug abuse patient.[facility] Center[facility] the event this information is protected by the Federal Confidentiality of Alcohol and Drug Abuse Patient Records regulations: The Federal rules restrict any use of the information to criminally investigate or prosecute any alcohol or drug abuse patient.[facility] Reason for Visit (unrecogniz ed section and content) ReasonCommentsPre-Op ExamReasonCommentsAnesthesia ConsultReasonCommentsPost-op (Ophthalmology) Left EyeOne day s/p cataract surgery with IOLReasonCommentsPost- op (Ophthalmology) Left Eyes/p Phaco + PC IOL OS [id number] / ProceduresReferred By ContactReferred To ContactASC [facility] Diagnoses Combined forms of age-related cataract of both eyes Procedures XCAPSL CTRC RMVL INSJ IO LENS PROSTH W/O ECP OPH BMTRY PRTL COHER INTRFRMTRY IO LENS PWR LEO PHACOEMULSIFICATION CATARACT IMPLANT INTRAOCULAR LENS W/O ENDOSCOPIC CYCLOPHOTOCOAGULATION OPHTHALMIC BIOMETRY BY PARTIAL COHERENCE INTERFEROMETRY W/INTRAOCULAR LENS POWER CALCULATION [facility] [address] [place] [address] Referral IDStatusReasonStart DateExpiration DateVisits RequestedVisits [id number] Care Teams (unrecognized sec tion and content) [...] Care Provider Active Start: May 27, 2023 CARMEN CrenshawAAtlost rivers medical centermikey ProviderActiveStart: May 27, 2023 Team Status: Active [...] June 15, 2023 End: June 14larry Escobar , MDAttending ProviderActiveStart: June 15, 2023 End: June 15, 2023 Team Status: Inactive Member Role Status Dates Oumar Gunter MD Primary Care Provider Active Miguel Spring II, MDAttending ProviderActiveTeam MemberRelationshipSpecialty Start DateEnd Date Oumar Gunter MD [address] [place] [address] PCP - GeneralFamily Practice12/25/10Team MemberRelationshipSpecialtyStart DateEnd Date Oumar Gunter MD [address] [place] [address] PCP - GeneralFamily Practice12/25/10Team MemberRelationshipSpecialtyStart DateEnd Date Oumar Gunter MD [address] [facility] [place] [address] PCP - GeneralFamily Practice12/25/10Team MemberRelationshipSpecialtyStart DateEnd Date Oumar Gunter MD [address] [place] [address] (work) PCP - [facility]12/25/10 Team Status: Inactive Member Role Status Dates Oumar Gunter MD Primary Care Provider Active Godfrey Guo ProviderActive Team Status: Inactive Member Role Status Nomi Gunter MD Primary Care Provider Active Godfrey Guo Provider, Referring ProviderActive Team Status: Active Member Role Status Dates Linda Renteria MD Fight Manager Active Trinh RosenthalSt[facility] ProviderActive Team Status: Active Member Role Status Dates Oumar Gunter MD Primary Care Provider Active Start: March 01, 2024 Godfrey Messina ProviderActiveStart: March 01, 2024 Team Status: Inactive [...] Active Start: June 27, 2024 End: June 27gloria Booth , MDAttending ProviderActiveStart: June 27, 2024 End: June 27, [...] December 22, 2024 End: December 22, 2024 Team Status: Active Member Role/Relationship Status Dates Linda Renteria MD Fight Manager Active FORREST RosenthalEl[facility] ProviderActive Team Status: Inactive Member Role/Relationship Status Dates Oumar Gunter MD Primary Care Provider Active Start: December 22, 2024 End: December 22, 2024Jose Francisco Riley ProviderActiveStart: December 22, 2024 End: December 22, 2024 Team Status: Inactive Member Role/Relationship Status Dates Oumar Gunter MD Primary Care Provider Active Start: January 25, 2025 End: January 25, 2025Godfrey Rosenthal ProviderActiveStart: January 25, 2025 End: January 25, 2025 INFORMATION SOURCE (unrecogn ized section and content) DATE CREATED AUTHOR 08/21/2021 [facility] DATE CREATED AUTHOR AUTHOR'S ORGANIZ ATION 02/03/2022 [facility] DATE CREATED AUTHOR AUTHOR'S ORGANIZ ATION 06/28/2024 [facility] Goals (unrecognized section and content) [...] BE BASED ON THE PRIMARY CLINICAL RECORDS. [facility]. provides no warranty or guarantee of the accuracy or completeness of information in this document.
--- NOTE | 2025-02-12 09:17 | XR_ITS ---
The [address] [address] Patient Name: DARLENE TANG MRN: [id number] date: 1945 Sex: F Assigned Patient Location: [facility] Current Patient Location: [facility] Accession/Order Number: [id number] Exam Date: 02/12/2025 09:10 Report Date: 02/12/2025 09:43 At the request of: OUMAR GUNTER MD Procedure: XR chest 2V PA AND LATERAL CHEST: CLINICAL HISTORY: Cough and shortness of breath. COMPARISON: 01/25/[address] 08/26/2023 There is some artifact from bilateral breast implants. The left lung remains clear. There is increasing pleural parenchymal opacity at the right lower lung where the hemidiaphragm is now obscured. Fluid also tracks into the major fissure. No pneumothorax is noted. The visualized cardiac, hilar and mediastinal silhouettes are stable. There is no suspected vascular congestion. Reverse S-shaped thoracolumbar scoliotic curvature and mild endplate spurring are seen. Patient has a dorsal stimulator. XR/XR chest 2V IMPRESSION: WORSENING RIGHT BASILAR PLEURAL-PARENCHYMAL CHANGE.. Impression dictated by: Qi Espinoza M.D. 02/12/2025 9:43 AM Dictation Location: [place] [address] Electronically authenticated by: [id number] Date: 02/12/2025 09:43
== END 2025-02-12 08:42 | disposition home or self-care (01) ==
LOC: LAB 08:47 → RAD 08:49
PROVIDERS: PCP Family Medicine; Visit Provider Family Medicine
DX: R05.1 Acute cough (principal); J44.9 Chronic obstructive pulmonary disease, unspecified
CPT/HCPCS: 71046

== ENCOUNTER 2025-02-15 07:45 | Emergency (ER) | payer MEDICARE, SELFPAY ==
--- OUTSIDE RECORDS SUMMARY | 2023-08-31 05:15 | XMS_ITS ---
Author Organization [facility] [place] Address [address] [place] [address] Care Team Providers Care Gambreler Name Role Phone Shasha BELLA, Sonia Primary Care Provider Unavailab Fidelina Reaves Unavailable [phone] REASON FOR VISIT MD Encounters Encounter Location Date Provider Diagnosis [facility] [address] [place] [address] 08/31/2023 Fidelina Escobar Plan Of Treatment Next Appt Details Provider Name:FIDELINA ESCOBAR , 06/05/2025 11:00:00 AM, [address] [place], [address], Progress Notes * Catherine TANG ADOB: (79 yo F)Acc No.[id number]:08/31/2023 UNLOCKED PROGRESS NOTE Progress Notes Patient: Sweetie Catherine ESTRADA :?Fidelina Escobar M.D.:1945???Age:78 Y ???Sex:FemaleDate:4Phone:[phone]:[address], [id number]:Sonia Pulliam MD Subjective: * Chief Complaints: * 1 . MD. * Medical History: Objective: * Vitals: Assessment: Plan: * Treatment: * * Electronic signature of Fidelina Escobar MD, [id number] on 02/15/2025 at 07:54 AM ESTSign off status: PendingVisit Status:?CONFSMS (Voice) * Provider: Hillary Escobar M.D. Date: 0 08/31/2023 Generated for Printing/Faxing/eTransmitting on:?02/15/2025 07:54 AM EST
--- OUTSIDE RECORDS SUMMARY | 2024-03-07 05:00 | XMS_ITS ---
Author Organization [facility] in [place] Address [address] [place] [address] Care Team Providers Care [employer] Assistant Name Role Phone Shasha BELLA, Sonia Primary Care Provider Unavailab Fidelina Reaves Unavailable [phone] REASON FOR VISIT MD Encounters Encounter Location Date Provider Diagnosis [facility] [address] [place] [address] 03/07/2024 Fidelina Escobar Plan Of Treatment Next Appt Details Provider Name:FIDELINA ESCOBAR , 06/05/2025 11:00:00 AM, [address] [place], [address], Progress Notes * Catherine TANG ADOB: (79 yo F)Acc No.[id number]:03/07/2024 UNLOCKED PROGRESS NOTE Progress Notes Patient: Sweetie Catherine ESTRADA :?Fidelina Escobar M.D.:1945???Age:78 Y ???Sex:FemaleDate:4Phone:[phone]:[address], [id number]:Sonia Pulliam MD Subjective: * Chief Complaints: * 1 . MD. * Medical History: Objective: * Vitals: Assessment: Plan: * Treatment: * * Electronic signature of Fidelina Escobar MD, [id number] on 02/15/2025 at 07:58 AM ESTSign off status: PendingVisit Status:?CONFSMS (Voice) * Provider: Hillary Escobar M.D. Date: 05/08/2023 Generated for Printing/Faxing/eTransmitting on:?02/15/2025 07:58 AM EST
--- OUTSIDE RECORDS SUMMARY | 2024-05-16 05:30 | XMS_ITS ---
Author Organization [facility] [place] Address [address] [place] [address] Care Team Providers Care Carpenter Mine Name Role Phone Sonia Pulliam MD Primary Care Provider Jose mueller Larry Reed Unavailable [phone] Allergies Allergen (clinical drug ingredient) Drug/Non Drug Allergy documented on EMR Reaction Allergy Type Onset Date Status TaperashAllergyActive REASON FOR VISIT 1YEAR-COPD Medications Medication SIG (Take, Route, Frequency, Duration) Notes Start Date End Date Status Albuterol Sulfate HFA 108 (9 0 Base) MCG/ACT 2 puffs as needed for SOB Inhalation cristobal ry 4 hrs; Duration: 30 days 5ActiveDULoxetine HCl 60 MG1 capsule Orally Once a dayActiveStiolto Respimat 2.5-2.5 MCG/ACT2 puffs Inhalation Once a day; Duration: 90 daysActive DULoxetine HCl 30 MGOral; Duration: 90 DaysActiveVitamin D3 250 MCG (86799 UT)1 capsule Orally Once a dayActiveVitamin D 25 MCG (1000 UT)1 tablet Orally Once a dayActivePravastatin Sodium 10 MGOral; Duration: 90 DaysActiveMorphine Sulfate ER 15 MGTAKE 1 TABLET BY MOUTH EVERY 12 HOURS FOR 15 DAYS Oral; Duration: 15 DaysActiveLisinopril 5 MGOral; Duration: 90 DaysActiveHealthy Eyes -as directed OrallyActiveNaproxen 500 MGOral; Duration: 30 DaysActiveMulti Complete -as directed OrallyActiveGabapentin 600 MGOral; Duration: 90 DaysActive Social History Tobacco Use: Social History Observation Description Date Details (start date - stop date) Never Smoker NA - NA Tobacco Control (Standard) Question Answer Notes Tobacco use: Nonsmoker Vital Signs Weight 196.4 lbs 05/16/2024 Height 63 in 05/16/2024 Blood pressure systolic 164 mm Hg 05/16/19 25 Blood pressure diastolic 89 mm Hg 025 Temperature 96.6 degrees Fahrenheit 05/16/19 25 Heart Rate 82 /min 05/16/2024 Respiratory Rate 18 /min 05/16/2024 BMI 34.79 kg/m2 05/16/2024 Oximetry 94 % 05/16/2024 Encounters Encounter Location Date Provider Diagnosis [facility] [address] [place] [address] 05/16/2024 Larry Reed COPD (chronic obstructive pulmonary disease) J44.9 ; Secondhand smoke exposure Z77.22 and Obesity, unspecified E66.9 Assessments Encounter Date Diagnosis (ICD Code) Assessment Notes Treatment Notes Treatment Clinical Notes Section Notes 05/16/2024 COPD (chronic obstructive pulmon noris disease) (ICD-10 - J44.9) Previously had at least some benefit with Stiolto compared to nothing. However, since last visit, appears that she became mistaken about the instructions and has only been using it as needed. I explained that is not designed as needed and cannot be used as rescue inhaler. It is most effective usingit on a daily basis. Patient voiced she would wish to remain on Stiolto and continue that for now. S he refused any further workup today. I suggested that she have albuterol for as needed use on top of Stiolto. She declined that, but regardless, I sent in a prescription just in case so at least is on her file. F/U 1 year or sooner PRN. 05/16/2024Secondhand smoke exposure (ICD-10 - Z77.22) Heavy secondhand smoke from family while growing up, and in the earlier years of her marriage. 05/16/2024Obesity, unspecified (ICD-10 - E66.9) Patient's weight is inducing a restrictive pulmonary physiology. Weight loss indicated: Decrease calories, increase activity. Plan Of Treatment Medication Medication Name Sig Start Date Stop Date Notes Albuterol Sulfate HFA 108 (9 0 Base) MCG/ACT 2 puffs as needed for SOB Inhalation every 4 hrs; Duration: 30 days 05/16/2024 Stiolto Respimat 2.5-2.5 MCG/ACT2 puffs Inhalation Once a day; Duration: 90 days Treatment Notes Assessment Notes COPD (chronic obstructive pu lmonary disease) Previously had at least some benefit with Stiolto compared to nothing. However, since last visit, appears that she became mistaken about the instructions and has only been using it as needed. I explained that is not designed as needed and cannot be used as rescue inhaler. It is most effective using it on a daily basis. Patient voiced she would wish to remain on Stiolto and continue that for now. She refused any further workup today. I suggested that she have albuterol for as needed use on top of Stiolto. She declined that, but regardless, I sent in a prescription just in case so at least is on her file. F/U 1 year or sooner PRN. Secondhand smoke exposure Heavy secondhand smoke from family while growing up, and in the earlier years of her marriage. Obesity, unspecified Patient's weight is inducing a restrictive pulmonary physiology. Weight loss indicated: Decrease calories, increase activity. Next Appt Details Follow Up: 1 Year, Reason: C OPD Provider Name:TANNER BUTCHERWLA , 06/05/2025 11:00:00 AM, [address] [place], [address], Procedure Notes * UkjbciygOku-SiwcmyxsDdcttcTerlsTzaks-5 AntitrypsinScreening Date:04/14/2023 Genotype:MM Progress Notes * Catherine TANG ADOB: (79 yo F)Acc No.[id number]:05/16/2024 UNLOCKED PROGRESS NOTE Follow Up Patient: Sweetie Catherine ESTRADA :?Larry JOHN ReedOB:1945???Age:79 Y ???Sex:FemaleDate:05/16/2024Phone:[phone]:[address] [place], [place]Svo:Sharlene Rosenthal In:10:32 AM Sam Out:10:58 AM EST Subjective: * Chief Complaints: * 1 . 1YEAR-COPD. * HPI: ???General:? It has been a year since the patient was last seen. She statessince that time, she is continue to have some shortness of breath and had every test known to man. ? I noted last visit I offered for further workup, but she declined.? She states all of the ordered testing?returned?unremarkable.? Last visit, I noted that she had some improvement with Stiolto. She admits that she has not been using it on a regular basis. He stopped it was only for as needed use. I explained that is a very slow onset molecule and takes 5-7 days right toobtain full effect; therefore, it is not able to be used as a rescue inhaler. MA Intake Comments:. ?Patient presents for a follow-up for COPD. Patient complains of SOB & Cough with exertion. Patient states she uses Stiolto but not daily. Patient reports good benefit when she uses the medication. Patient states she was unsure if she should be taking the medication daily. * ROS: ???General/Constitutional:?Fever or sweats?denies.?Change of appetite?denies.?Chills?denies.?Weight Change?denies.?HEENT:?Dry mouth?denies.?Sore throat?denies.?Oral Ulcers?denies.?Post Nasal Drip?Denies.?Congestion?Denies.?Hoarseness Denies.?Cardiovascular:?Chest pain?denies.?Palpitations?denies.?Respiratory:?Chest tightness?denies.?Pleurisy?Denies.?Dyspnea?with activity.?Cough? admits.?Hemoptysis?denies.?Wheezing?denies.?Gastrointestinal:?Acid Reflux/GERD/Heartburn?denies.?Dysphagia?denies.?Musculoskeletal:?Arthralgias/joint pain?in hands.?Skin:?Easy bruising ?denies.?Rash?denies.?Neurologic:?Seizures?denies.?Tremor?denies.?Hematology:?Abnormal Bleeding?denies.?Psychiatric:?Anxiety?denies.? * Medical History: C OPD (chronic obstructive pulmonary disease), Other secondary pulmonary hypertension, OA (osteoarthritis), HTN (hypertension), Hypercholesterolemia, Macular degeneration, Secondhand smoke exposure, History of breast cancer, History of COVID-19. * Surgical History: c esarean section , bilateral mastectomy , Left Knee Arthroplasty . * Hospitalization/Major Diagno stic Procedure: D enrebecca Past Hospitalization. * Family History: M other: breast cancer, asthma. B rother(s): asthma, stroke. S ister(s): breast cancer, asthma, diagnosed with Heart Disease. D ashley(s): breast cancer. F ather: diagnosed with Heart Disease. * Social History: ???Tobacco Use:?Tobacco Control (Standard)?Tobacco use:?Nonsmoker ?Electronic Cigarette use?Current user?No ???Miscellaneous:?Occupation?Occupation:?Retired [employer] ?Pets: cats. ???Drugs/Alcohol:?Drugs?Have you used drugs other than those for medical reasons in the past 12 months??No ?Does the Patient have a History of Drug Abusein the Past??No ?Caffeine?Intake:?1-2 cups per day Coffee ?Do you drink alcohol?: No. ?Do you smoke marijuana?: Denies. * Medications: T randallg DULoxetine HCl 60 MG Capsule Delayed Release Particles 1 capsule Orally Once a day , Taking DULoxetine HCl 30 MG Capsule Delayed Release Particles Oral , Taking Gabapentin 600 MG Tablet Oral , Taking Healthy Eyes(Multiple Vitamins-Minerals) - Tablet as directed Orally , Taking Lisinopril 5 MG Tablet Oral , Taking Morphine Sulfate ER 15 MG Tablet Extended Release TAKE 1 TABLET BY MOUTH EVERY 12 HOURS FOR 15 DAYS Oral , Taking Multi Complete(Multiple Vitamins-Minerals) - Capsule as directed Orally , Taking Naproxen 500 MG Tablet Oral , Taking Pravastatin Sodium 10 MG Tablet Oral , Taking Stiolto Respimat(Tiotropium Kaibeto-Olodaterol) 2.5-2.5 MCG/ACT Aerosol Solution 2 puffs Inhalation Once a day , Taking Vitamin D 25 MCG (1000 UT) Tablet 1 tablet Orally Once a day , Taking Vitamin D3 250 MCG (63684 UT) Capsule 1 capsule Orally Once a day , Discontinued Aspirin 81(Aspirin) 81 MG Tablet Delayed Release 1 tablet Orally Once a day , Discontinued Myrbetriq(Mirabegron ER) 50 MG Tablet Extended Release 24 Hour Oral , Discontinued oxyCODONE HCl 15 MG Tablet Oral , Medication List reviewed and reconciled with the patient * Allergies: T ape: rash - Allergy. Objective: * Vitals: W t:196.4lbs, Ht: 63 in, BP:sittin/89mm Hg, Temp:Forehead:96.6F, HR:82/min, RR:18/min, BMI:34.79Index, Oxygen sat %:Room Air:94%, Ht-cm: 160.02 cm, Wt-k.09 kg. * Examination: ???Exam: ?GENERAL APPEARANCE:?Appears stated age.?Skin?Normal.?Mouth?[place] and moist.?Oropharynx?Mallampati Class III.?Trachea?Midline.?Chest?Normal.?Respiratory??Normal?Movements,?Effort?Normal.?Auscultation?Diminished breath sounds without wheezes, crackles, rhonchi.?Cardiac?Regular rate and rhythm.?Gastrointestinal?Normal.?Vascular?No edema.?Musculoskeletal?Normal posture.?Neurological?Focal, intact.?Psychiatric?Alert and oriented x3.?Mentation/Cognition?Normal.? Assessment: * Assessment: 1.?COPD (chronic obstructive pulmonary disease) - J44.9 (Primary)???2.?Seco ndhand smoke exposure - Z77.22???3.?Obesity, unspecified - E66.9?? Plan: * Treatment: Start Stiolto Respimat Aerosol Solution, 2.5-2.5 MCG/ACT, 2 puffs, Inhalation, Once a day, 90 days,3 each, Refills 4;?Start Albuterol Sulfate HFA Aerosol Solution, 108 (90 Base) MCG/ACT, 2 puffs as needed for SOB, Inhalation, every 4 hrs, 30 days, 1, Refills 12.?? Notes: Previously had at least some benefit with Stiolto compared to nothing. However, since last visit, appears that she became mistaken about the instructions and has only been using it as needed. I explained that is not designed as needed and cannot be used as rescue inhaler. It is most effective usingit on a daily basis. Patient voiced she would wish to remain on Stiolto and continue that for now. S he refused any further workup today. I suggested that she have albuterol for as needed use on top of Stiolto. She declined that, but regardless, I sent in a prescription just in case so at least is on her file. F/U 1 year or sooner PRN.??2.?Secondhand smoke exposure? Notes: Heavy secondhand smoke from family while growing up, and in the earlier years of her marriage.??3.?Obesity, unspecified? Notes: Patient's weight is inducing a restrictive pulmonary physiology. Weight loss indicated: Decrease calories, increase activity.?? * Procedures: ???Alpha-1 Antitrypsin:?Screening Date:?04/14/2023.?Genotype:?MM.? * Preventive Medicine: ??COVID Vaccination:?Has patient had COVID Vaccination?COVID Vaccination?Yes 02/11/2021 ??Immunization Status:?Pneumovacc?12/2023 per patient.?Influenza?12/20/2023.?Zostivax?10/23/2023.? ??Screenings/Counseling:?FALL RISK SCREENING?Fall Risk Assessment:?No falls in the past year ?Are you afraid of falling??No ?TOBACCO ACTION PLAN?Exclusion:?Medical Reason Non Smoker ?Type of Medical Reason:?Not indicated ?BMI ACTION PLAN?Above Normal BMI Follow-up?Dietary management education, guidance, and counseling ???RSV-10/23/2023. * Follow Up: 1 Year (Reason: COPD) * * Electronic signature of Larry Reed DO on 02/15/2025 at 07:55 AM ESTSign off status: PendingVisit Status:?CHK (Check Out) * Provider: Mary Grace Reed DO Date: 0 05/16/2024 Generated for Printing/Faxing/eTransmitting on:?02/15/2025 07:55 AM EST History and Physical Notes * HPI (History of Present Illness) CategorySub-CategoryDetailNotesCategory NotesGeneralPatient presents for a follow-up for COPD. Patient complains of SOB & Cough with exertion. Patient states she uses Stiolto but not daily. Patient reports good benefit when she uses the medication. Patient states she was unsure if she should be taking the medication daily. Examination CategorySub-CategoryDetailNotesCategory NotesExamGENERAL APPEARANCE:Appears stated ageSkinNormalMouthPink and moistTracheaMidlineChestNormalRespiratory Normal Movements, Effort NormalAuscultationDiminished breath sounds without wheezes, crackles, rhonchiCardiacRegular rate and rhythmGastrointestinalNormal VascularNo edemaMusculoskeletalNormal postureNeurologicalFocal, intact PsychiatricAlert and oriented w7Qslaleatx/CognitionNormalOropharynxMallampati Class III
--- OUTSIDE RECORDS SUMMARY | 2024-08-15 06:30 | XMS_ITS ---
Author Organization [facility] in [place] Address [address] [place] [address] Care Team Providers Care Black Ash Burner Operator Name Role Phone Shasha BELLA, Sonia Primary Care Provider Unavailab Fidelina Reaves Unavailable [phone] REASON FOR VISIT MD Encounters Encounter Location Date Provider Diagnosis [facility] [address] [place] [address] 08/15/2024 Fidelina Escobar Plan Of Treatment Next Appt Details Provider Name:FIDELINA ESCOBAR , 06/05/2025 11:00:00 AM, [address] [place], [address], Progress Notes * Catherine TANG ADOB: (79 yo F)Acc No.[id number]:08/15/2024 UNLOCKED PROGRESS NOTE Progress Notes Patient: Sweetie Catherine ESTRADA :?Fidelina Escobar M.D.:1945???Age:79 Y ???Sex:FemaleDate:08/15/2024Phone:[phone]:[address] [place], [id number]:Sonia Pulliam MD Subjective: * Chief Complaints: * 1 . MD. * Medical History: Objective: * Vitals: Assessment: Plan: * Treatment: * * Electronic signature of Fidelina Escobar MD, [id number] on 02/15/2025 at 07:54 AM ESTSign off status: PendingVisit Status:?CONFSMS (Voice) * Provider: Hillary Escobar M.D. Date: 0 08/15/2024 Generated for Printing/Faxing/eTransmitting on:?02/15/2025 07:54 AM EST
[2025-02-15] VITALS (21 sets, daily range): BP systolic 161–184; BP diastolic 88–102; PULSE 106–120; TEMP 36.6; O2SAT 88–96; BMI 34.5
--- OUTSIDE RECORDS SUMMARY | 2025-02-15 07:55 | XMS_ITS | Patient Health Record ---
Author Organization [facility] in [place] Address [address] [place] [address] Care Team Providers Care Charging Board Operator Name Role Phone Sonia Pulliam MD Primary Care Provider Unavailab Fidelina Reaves Unavailable [phone] Larry Reed Unavailable [phone] Allergies Allergen (clinical drug ingredient) Drug/Non Drug Allergy documented on EMR Reaction Allergy Type Onset Date Status TaperashAllergyActive Results Component Value Reference Range Notes CRP (Not yet reviewed by pro vider) Interpretation: Performing Lab: Notes/Report: [facility] , C Reactive Protein <0.50 <=0.50 mg/dL Performing Lab:see noteML - [facility] LBPROF 14(COMP METB) (Not yet reviewed by provider) Interpretation: Performing Lab: Notes/Report: [facility] ,Wyrzky929774-219 mmol/LPotassium5.13.5-5.1 mmol/XXnvscnot91449-654 mmol/LCarbon Bsashkh66.121.0-32.0 mmol/LAnion Gap9.3Krfihzz76773-391 mg/dLBlood Urea Nitrogen 29.07.0-18.0 mg/dLCreatinine1.330.55-1.02 mg/dLEstimated GFR ( Jgapmqh06 >=60 mL/min/1.73m 2Estimated GFR (Non- Ame38>=60 mL/min/1.73m 2BUN Creatinine Ratio21.6Kwcidvo4.48.5-10.1 mg/dLBilirubin Total0.50.2-1.0 mg/dL Aspartate Amino Kjtqrkvfshj8624-27 U/LAlanine Orwcckraimwjmumi5350-83 U/L Alkaline Qxuvzydmdmb2294-891 U/LTotal Protein7.26.4-8.2 g/dLAlbumin Level3.83.4- 5.0 g/dLGlobulin3.4Albumin Globulin Ratio1.1Performing Lab:see note - [facility] LBErythrocyte Sedimentation Rate (Not yet reviewed by provider) Interpretation: Performing Lab: Notes/Report: [facility] ,Erythrocyte Sedimentation Rate28<=30 mm/hrPerforming Lab:see note - [facility] LBFERRITIN (Not yet reviewed by provider) Interpretation: Performing Lab: Notes/Report: [facility] ,Ysqwtamo285.08.0-252.0 ng/mLPerforming Lab:see [facility] LBVitamin B12 (Not yet reviewed by provider) Interpretation: Performing Lab: Notes/Report: [facility] ,Vitamin Q753598192-7741 pg/mL Performed at: [facility] Lab[address] [id number] Cyber Intelligence Analyst: Larry Nicolas PhD, Phone: [phone] Performing Lab:[facility] LBVITAMIN D 25 [place] (Not yet reviewed by provider) Interpretation: Performing Lab: Notes/Report: [facility] ,Vitamin D57.6 <20 ng/mL Vit D deficient 20-<30 ng/mL Vit D insufficient 30-100 ng/mL Vit D sufficient >100 ng/mL Potential Toxicity Performing Lab:see note - [facility] LBTSH (Not yet reviewed by provider) Interpretation: Performing Lab: Notes/Report: [facility] ,Thyroid Stimulating Hormone1.7430.358-3.740 uIU/mLPerforming Lab:[facility] LBPROF 14(COMP METB) (Not yet reviewed by provider) Interpretation: Performing Lab: Notes/Report: [facility] ,Xkkacp076346-201 mmol/LPotassium4.63.5-5.1 mmol/IZfewdyag05290-984 mmol/LCarbon Ylzujpz17.821.0-32.0 mmol/LAnion Gap11.8Uppfulp32683-662 mg/dLBlood Urea Qsrpclva73.07.0-18.0 mg/dLCreatinine1.350.55-1.02 mg/dLEstimated GFR ( Kmkcinr55>=60 mL/min/1.73m 2Estimated GFR (Non- Ame38>=60 mL/min/1.73m 2 BUN Creatinine Ratio15.4Vntcwqw9.88.5-10.1 mg/dLBilirubin Total0.40.2-1.0 mg/dL Aspartate Amino Phkbtszpcfb0585-19 U/LAlanine Ycueptynjsglguls2816-20 U/L Alkaline Otwmtwfcjay2786-634 U/LTotal Protein6.66.4-8.2 g/dLAlbumin Level3.43.4- 5.0 g/dLGlobulin3.2Albumin Globulin Ratio1.1Performing Lab:see noteML - [facility] LBIRON AND TIBC (Not yet reviewed by provider) Interpretation: Performing Lab: Notes/Report: [facility] ,Iron86.050.0-170.0 ug/dLTotal Iron Binding Lphiyxhv678.0250.0-450.0 ug/dL Percent Iron Ififmgllbb86.3Performing Lab:see noteML - [facility] LB FERRITIN (Not yet reviewed by provider) Interpretation: Performing Lab: Notes/Report: [facility] ,Iecuhamm83.08.0-252.0 ng/mLPerforming Lab:see noteML - [facility] LB CBC AUTO DIFF (Not yet reviewed by provider) Interpretation: Performing Lab: Notes/Report: [facility] ,White Blood Count7.04.0-11.0 10 3/uLRed Blood Count3.734.20-5.40 10 6/uL Atjoculmab32.512.0-16.0 g/oIUfgrfpwcdz75.536.0-48.0 %Mean Corpuscular Pkkvzc77.2 81.0-99.0 fLMean Corpuscular Lurdwqtouc24.826.7-34.0 pgMean Corpuscular HGB Conc 32.429.9-35.2 g/dLRed Cell Distribution Width12.311.0-15.0 %Platelet Wiirz465 150-450 10 3/uLMean Platelet Qdrviz21.29.5-13.5 fLNeutrophils Percent Auto55.4 43.0-75.0 %Lymphocytes Percent Auto33.120.5-60.0 %Monocytes Percent Auto6.51.7- 12.0 %Eosinophils Percent Auto4.00.9-7.0 %Basophils Percent Auto0.70.2-2.0 % Immature Granulocytes Pct Auto0.30.0-0.5 %Neutrophils Absolute Auto3.91.4-6.5 10 3/uLLymphocytes Absolute Auto2.31.2-3.8 10 3/uLMonocytes Absolute Auto0.50.3-0.8 10 3/uLEosinophils Absolute Auto0.30.0-0.7 10 3/uLBasophils Absolute Auto0.10.0- 0.1 10 3/uLImmature Granulocytes Abs Auto0.020.00-0.03 10 3/uLPerforming Lab:see note - [facility] LBVitamin B12 (Not yet reviewed by provider) Interpretation: Performing Lab: Notes/Report: [facility] ,Vitamin M444137542-4137 pg/mL Performed at: [facility] Lab[address] [id number] Cyber Intelligence Analyst: Larry Nicolas PhD, Phone: [phone] Performing Lab:[facility] LBIRON AND TIBC (Not yet reviewed by provider) Interpretation: Performing Lab: Notes/Report: [facility] ,Iron82.050.0-170.0 ug/dLTotal Iron Binding Evokirol462.0250.0-450.0 ug/dL Percent Iron Wlssrqgqlr78.4Performing Lab:see noteML - [facility] LB CBC AUTO DIFF (Not yet reviewed by provider) Interpretation: Performing Lab: Notes/Report: [facility] ,White Blood Count8.14.0-11.0 10 3/uLRed Blood Count3.874.20-5.40 10 6/uL Jfuwljbnxo35.712.0-16.0 g/jIUhkauglect35.936.0-48.0 %Mean Corpuscular Xrpbed09.9 81.0-99.0 fLMean Corpuscular Ddxqeshcel10.226.7-34.0 pgMean Corpuscular HGB Conc 30.929.9-35.2 g/dLRed Cell Distribution Width13.211.0-15.0 %Platelet Xtktq137 150-450 10 3/uLMean Platelet Volume9.99.5-13.5 fLNeutrophils Percent Auto51.4 43.0-75.0 %Lymphocytes Percent Auto35.720.5-60.0 %Monocytes Percent Auto7.51.7- 12.0 %Eosinophils Percent Auto3.80.9-7.0 %Basophils Percent Auto0.90.2-2.0 % Immature Granulocytes Pct Auto0.70.0-0.5 %Neutrophils Absolute Auto4.21.4-6.5 10 3/uLLymphocytes Absolute Auto2.91.2-3.8 10 3/uLMonocytes Absolute Auto0.60.3-0.8 10 3/uLEosinophils Absolute Auto0.30.0-0.7 10 3/uLBasophils Absolute Auto0.10.0- 0.1 10 3/uLImmature Granulocytes Abs Auto0.060.00-0.03 10 3/uLPerforming Lab:see noteML - [facility] LB Reason For Referral No Information Medications Medication SIG (Take, Route, Frequency, Duration) Notes Start Date End Date Status DULoxetine HCl 30 MG Oral; Duration: 90 Days ActiveAlbuterol Sulfate HFA 108 (90 Base) MCG/ACT2 puffs as needed for SOB Inhalation every 4 hrs; Duration: 30 days5ActiveDULoxetine HCl 60 MG1 capsule Orally Once a dayActiveVitamin D3 250 MCG (23977 UT)1 capsule Orally Once a dayActiveVitamin D 25 MCG (1000 UT)1 tablet Orally Once a dayActive Stiolto Respimat 2.5-2.5 MCG/ACT2 puffs Inhalation Once a day; Duration: 90 days ActiveMorphine Sulfate ER 15 MGTAKE 1 TABLET BY MOUTH EVERY 12 HOURS FOR 15 DAYS Oral; Duration: 15 DaysActiveLisinopril 5 MGOral; Duration: 90 DaysActiveHealthy Eyes -as directed OrallyActiveGabapentin 600 MGOral; Duration: 90 DaysActive Pravastatin Sodium 10 MGOral; Duration: 90 DaysActiveNaproxen 500 MGOral; Duration: 30 DaysActiveMulti Complete -as directed OrallyActive Immunizations Vaccine Route Administration Date Status Comme nts Arexvy Unknown 10/23/2023 Administered Flu, Fluad (39206) 65 yrs + High Dose Seasonal (7412-3507)Qpvnkec6212/20/2023 AdministeredFlu, Fluad (96259) 65 yrs+, single-dose syringe (6346-6385)Unknown 01/09/20223201JkwkebukrqenANRN-KNA-8 (COVID 19 Pfizer 30mcg/0.3mL)Rpinlno9202/11/2021 AdministeredZOSTER (SHINGLES) VACCINE (HZV)Tjeypeq58/27/2024Administered Social History Tobacco Use: Social History Observation Description Date Details (start date - stop date) Never Smoker NA - NA Tobacco Control (Standard) Question Answer Notes Tobacco use: Nonsmoker Problems Problem Type SNOMED Code ICD Code Onset Dates Problem Status W/U Status Risk Notes Problem Obesity (599224657) Obesity, unspecified (E66.9) ActiveconfirmedProblemCOPD - Chronic obstructive pulmonary disease (80023920) COPD (chronic obstructive pulmonary disease) (J44.9)ActiveconfirmedProblem Chronic pain (40668885)Chronic pain (G89.29)ActiveconfirmedProblemOveractive urinary bladder (disorder) (594373862)OAB (overactive bladder) (N32.81)Active confirmedProblemExposure to second hand tobacco smoke (event) (32365458286223895)Secondhand smoke exposure (Z77.22)ActiveconfirmedProblem Metabolic encephalopathy (57318463)Acute metabolic encephalopathy (G93.41)Active confirmedProblemEssential hypertension (28359505)BP (high blood pressure) (I10) ActiveconfirmedProblemSecondary pulmonary hypertension (73889870)Other secondary pulmonary hypertension (I27.29)ActiveconfirmedProblemHistory of COVID-19 (123326439447695645)History of COVID-19 (Z86.16)Activeconfirmed04/03/2021 Vital Signs Heart Rate 82 /min 05/16/2024 Rmscgdizcin92.6 degrees Rtjtytrefe15/18/2025Respiratory Rate18 /min05/16/2024 Coprpueq26 %05/16/2024lood pressure bbyrdsvly43 mm Hg05/16/20246370Xctipr88 in 05/16/2024lood pressure dybesxyv519 mm Hg05/16/20243214Wjzcnp541.4 lbs05/16/2024MI 34.79 kg/m205/16/2024 Encounters Encounter Location Date Provider Diagnosis Pulmonary Medicine [place] [address] [place] [place] [address] 05/16/2024 Larry Derek COPD (chronic obstructive pulmonary disease) J44.9 ; Secondhand smoke exposure Z77.22 and Obesity, unspecified E66.9 [facility] [address] [place] [place] [address] 08/15/2024 Fidelina [facility] [address] [place] [place] [address]/10/2024 [facility] [address] [place] [address] 11/20/2024Larry Reed Assessments Encounter Date Diagnosis (ICD Code) Assessment [...] Decrease calories, increase activity. Plan Of Treatment Pending Test Test Name Order Date CBC AUTO DIFF 07/20/2023 CBC AUTO DIFF 08/11/2024 CBC AUTO DIFF 03/01/2024 CRP 08/11/2024 FERRITIN 08/11/2024 FERRITIN 07/20/2023 FERRITIN 03/01/2024 FOLATE 07/20/2023 FREE T4 07/20/2023 IRON AND TIBC 07/20/2023 IRON AND TIBC 08/11/2024 IRON AND TIBC 03/01/2024 PROF 14(COMP METB) 03/01/2024 PROF 14(COMP METB) 07/20/2023 PROF 14(COMP METB) 08/11/2024 TSH 07/20/2023 TSH 03/01/2024 VITAMIN D 25 [place] 03/01/2024 VITAMIN D 25 [place] 07/20/2023 CT chest wo con 08/26/2023 Erythrocyte Sedimentation Rate Vitamin B12 07/20/2023 Vitamin B12 08/11/2024 Vitamin B12 03/01/2024 Next Appt Details Provider Name:FIDELINA JONES , 06/05/2025 11:00:00 AM, [address] [place], [address], Insurance Providers Payer Name Payer Address Payer Phone Subscriber Number Group Number Insured Name Patient Relationship to Insured Coverage Start Date Coverage End Date [facility] MEDICARE ADV PLAN [address] [address] [place] [address] [phone] [id number] Catherine Lopez Self - patient is the insured 3 Medical (General) History Medical History History ICD Code COPD (chronic obstructive pulmonary dise ase) J44.9 Other secondary pulmonary hypertension I 27.29 OA (osteoarthritis) M19.90 HTN (hypertension) I10 Hypercholesterolemia E78.00 Macular degeneration H35.30 Secondhand smoke exposure Z77.22 History of breast cancer Z85.3 History of COVID-19 Z86.16 Surgical History Surgery Date(Month/Year) section bilateral mastectomyLeft Knee Arthroplasty
--- OUTSIDE RECORDS SUMMARY | 2025-02-15 07:58 | XMS_ITS | Clinical Summary ---
Author Organization [facility] Address [address] [place] [address] Care Team Providers Care Hollow Ware Maker Name Role Phone Sonia Pulliam MD Primary Care Provider [phone] Social History Tobacco UseTypesPacks/DayYears UsedDateSmoking Tobacco: Never Assessed CommentsUnknownSex and Gender InformationValueDate RecordedSex Assigned at Not on fileLegal ZhsMdkbji19/15/2023 9:44 PM EDTGender IdentityNot on fileSexual OrientationNot on file Last Filed Vital Signs Vital SignReadingTime TakenCommentsBlood Pressure--Pulse--Temperature-- Respiratory Rate--Oxygen Saturation--Inhaled Oxygen Concentration--Amsgrb36.4 kg (175 lb)01/04/2019 12:00 PM XXXDxdlzi134 cm (5' 3 )01/04/2019 12:00 PM EDTBody Mass Pvdka113501/04/2019 12:00 PM EDT Plan of Treatment Not on file Insurance Care Teams Team MemberRelationshipSpecialtyStart DateEnd Date Sonia Pulliam MD [address] [place] [address] PCP - GeneralFamily Medicine08/07/24
--- OUTSIDE RECORDS SUMMARY | 2025-02-15 07:58 | XMS_ITS | Clinical Summary ---
Author Organization [facility] Address [address] [place] [address] Care Team Providers Care Electric Milkers Installer Name Role Phone Sonia Pulliam MD Primary Care Provider [phone] Allergies Active AllergyReactionsCriticalityNoted DateCommentsAdhesive Tape (Rosins)Rash 11/30/2013 [...] DateDiagnosed DateObesity (BMI 35.0-39.9 without comorbidity) 2Other bzukgizmuqftlw48/04/2022 Assessment & Plan (07/30/2021 11:59 AM EDT): Assessment: Continue statin Stable Breast xjtqzc2007/30/2021ongestive heart /04/2022CRPS (complex regional pain syndrome) type I07/06/2013 Assessment & Plan (07/30/2021 12:02 PM EDT): Assessment: stable On multiple pain medications Neuropathic pain03/15/2012urning /29/2011 Immunizations ImmunizationAdministration DatesNext Duezoster (ZVL) vaccine, live (ZOSTAVAX) 12/25/2009 Family History Medical HistoryRelationCommentsIschemic Heart DiseaseBrotherIschemic Heart DiseaseFatherAsthmaMotherCOPDMotherCOPDSisterRelationStatusCommentsBrotherFather MotherSister Social History Tobacco UseTypesPacks/DayYears UsedDateSmoking Tobacco: NeverSmokeless Tobacco: NeverAlcohol UseStandard Drinks/WeekCommentsYes0 (1 standard drink = 0.6 oz pure alcohol)very rare--maybe 4 drinks a year.Area Deprivation IndexAnswerDate RecordedNational Score (1-100), lower number is lower swmk188504/24/2022State Score (1-10), lower number is lower riskNot on file3Data from: https://www.neighborhoodatlas.[facility]/. Last address used for afkmnwhunza[address]3CommentsNoSex and Gender Information ValueDate RecordedSex Assigned at AzgxbDlmbcj61/27/2022 2:03 PM ESTLegal Sex Thrkds0002/28/2012 5:23 PM ESTGender NfbjiyakMacjou34/27/2022 2:03 PM ESTSexual QufwbdacwsfSpzlwuku04/27/2022 2:03 PM ESTOccupationIndustryJob Start DateJob End DateRetiredNot on fileNot on fileNot on file Last Filed Vital Signs Vital SignReadingTime TakenCommentsBlood Bbwtcswf079/6605 11:51 AM EDT Kkwkv931708/20/2021 11:51 AM BSIQopvibukvhc62.3 ??C (97.3 ??F)08/20/2021 11:41 AM EDTRespiratory Nvjr6455 11:51 AM EDTOxygen Egbafifqvc04%08/20/2021 11:51 AM EDTInhaled Oxygen Concentration--Yyncde19.4 kg (206 lb)07/30/2021 9:12 AM EDT Aospap802.3 cm (5' 3.5 )07/30/2021 9:12 AM EDTBody Mass Index35.9207/30/2021 9:12 AM EDT Plan of Treatment Health MaintenanceDue DateLast DoneCommentsAnxiety Mnmnounej95/26/1963Depression Rfojgkjzj11/26/1963DTaP,Tdap,Td Vaccine (1 - Tdap)1964Pneumococcal Vaccine: 50+ (1 of 1 - PCV)1995Shingrix Vaccine (2 of 3)02/19/2010 12/25/2009one Density Jhordyuum69/26/2010Diabetes Gxaypoiei89/15/2017 01/10/2014, 05/08/2013, 10/08/2011, Additional history existsRSV Vaccine (1 - 1- dose 75+ series)2020Advance Directive Byorzdsuhv61/01/2025Covid-19 Vaccine ( season)511/, 05/30/2020, 05/09/2020Influenza Vaccine (#1)509/, 12/22/2016, 01/03/2016 Medical Devices ImplantedTypeAreaManufacturerDevice [facility] Expiration DateModel / Serial / LotGenrtr Nrstm Pls Imp Chrg Kt - [id number] Implanted:Qty: 1 [facility]18/2014 [facility]/A: Last 2 Left FWAYUGHDJPFK64/30/2016ND-1010C / [id number] / Hml-Fm-N-Kind Implant - [id number] Implanted:Qty: 1 [facility]30/2013 [facility]: Last 2 Left04/28/20152289WU-0711-96 / [id number] / Description:LINEAR ST 70CM 8 CONTACT LEAD AXILev-No-N-Kind Implant - [id number] Implanted:Qty: 1 on 01/18/2014 at [facility]/A: Last 2 Left10/26/2015ND-4316 / / [id number]:CLIK ANCHORLens Iol 0d +13 Tony Uv Abs - [id number] Implanted:Qty: 1 on 08/06/2021 by Jennifer Jones V, MD at [facility] Intraocular LensLeft: EyeALCON LABS DOWUIPQD40/25/5368PD62QI.130 / [id number] / Description:-0.39Lens Iol 0d +13 Tony Uv Abs - [id number] Implanted:Qty: 1 on 08/20/2021 by Jennifer Jones V, MD [facility] Intraocular LensRight: EyeAL[employer]S GRXJDLIU97/06/7601DX61DX.130 / [id number] / Description:-0.48Kit Stim 50cm Porsha 8 Cntct Ld - [id number] Implanted:Qty: 1 on 01/18/2014 at [facility] SCIENTIFIC TTDOWUYUBRAL68/31/[id number] / [id number] / Procedures Procedure NamePriorityDate/TimeAssociated DiagnosisCommentsBASIC METABOLIC PANEL Nleoudx4201/10/2014 9:31 AM EDT Other specified pre-operative examination Reflex sympathetic dystrophy, unspecified (HCC) Neuropathic pain from Last 3 Months or Most Recently Relevant to Health Maintenance Results * (ABNORMAL) BASIC METABOLIC PNL (01/10/2014 9:31 AM EDT)ComponentValueRef Range Test MethodAnalysis TimePerformed AtPathologist RckuataaoHatqmns3951 - 100 mg/dLFOSTORIA CITY HOSPITAL SAEERKAVYKQGN863 - 25 mg/dLFOSTORIA CITY HOSPITAL LABORATORYCreatinine0.870.70 - 1.40 mg/dLFOSTORIA CITY HOSPITAL LABORATORY Vbshju928(L)132 - 148 mmol/LCHOCKING VALLEY COMMUNITY [facility] LABORATORYPotassium5.3(H)3.5 - 5.0 mmol/LCASHTABULA COUNTY [facility]ICAL [facility]ENTER MAIN LPJZECEKGQMzxcuwqj25(L)98 - 110 mmol/L [facility] NBAISSQMUDHM92313 - 32 mmol/LCHOCKING VALLEY COMMUNITY HOSPITAL LABORATORYAnion Sni584 - 15 mmol/LCHOCKING VALLEY COMMUNITY HOSPITAL LABORATORYCalcium9.7 8.5 - 10.5 mg/dLFOSTORIA CITY HOSPITAL LABORATORYeGFR->60 [facility] LABORATORYeGFR-All Other Races>60.[facility] LABORATORYComment: eGFR (Estimated GFR) Units of measure: [...] (Hist) RosemanLABORATORY Final ResultPerforming OrganizationAddressCity/State/ZIP CodePhone Number [facility] [address] [place] [address] from Last 3 Months or Most Recently Relevant to Health Maintenance Insurance Care Teams Team MemberRelationshipSpecialtyStart DateEnd Date Sonia Pulliam MD [address] [facility] [place] [phone] PCP - GeneralFamily Medicine12/25/10
--- OUTSIDE RECORDS SUMMARY | 2025-02-15 07:58 | XMS_ITS | Clinical Summary ---
Author Organization [facility] Address [address] [place] [address] Phone Care Team Providers Care Packager Or Packer And Weigher Name Role Phone Unavailable Primary Care Provider Unavailabl e Social History Tobacco UseTypesPacks/DayYears UsedDateSmoking Tobacco: Never Assessed CommentsUnknownSex and Gender InformationValueDate RecordedSex Assigned at Not on fileLegal UlsWvwuacr70/07/2023 10:48 AM ESTGender IdentityNot on file Sexual OrientationNot on file Plan of Treatment Health MaintenanceDue DateLast DoneCommentsLipid Panel1945Medicare Annual Wellness Visit (AWV)1945Hepatitis C Qoixltkyx16/26/1963DTaP/Tdap/Td Vaccines (1 - Tdap)1967Pneumococcal Vaccine (1 of [...]
--- OUTSIDE RECORDS SUMMARY | 2025-02-15 08:00 | XMS_ITS | CCD ---
Author Organization [facility] Care Team Providers Care Stock Analyst Name Role Phone Oumar Gunter MD Primary [...] GUNTER, DR OUMAR San Primary Care Unavailable [facility] [employer] Unavailable DEVYNWSEGUN, SHAIKH [...] GUNTER, DR OUMAR San Primary Care Unavailable ROANOKE, DR EDWARDO [employer] Unavailable GUNTER, DR OUMAR San Consulting Unavailable GUNTER, DR OUMAR San Admitting Unavailable GUNTER, DR OUMAR San Attending Unavailable GUNTER, DR OUMAR San Primary Care Unavailable GUNTER, DR OUMAR San Consulting Unavailable Oumar Gunter Unavailable MD Oumar Gunter Primary Care Provider [phone] MD Miguel Spring II Attending Provider Linda Renteria Unavailable MD Oumar Gunter Primary Care Provider MD Linda Renteria Attending Provider MD Oumar Gunter Primary Care Provider MD Linda Renteria Attending Provider [phone] MD Linda Renteria Referring Provider MD Oumar Gunter Primary Care Provider MD Fidelina Escobar Attending Provider Oumar Gunter MD Primary Care Provider Paty Booth MD Attending Provider Oumar Gunter Primary Care Unavailable Paty Booth Attending Unavailable Paty Booth Admitting Unavailable Nina Paulino CMA Attending Provider Un[facility] Oumar Gunter MD Attending Provider Raghva Ferreira MD Attending Provider Pancho Buckner MD Attending Provider [phone] Fidelina Escobar MD Attending Provider [phone] Maria Victoria Uribe APRN Attending Provider [phone] Oumar Gunter MD Primary Care Provider Maria Victoria Uribe APRN Attending Provider [phone] Oumar Gunter MD Attending Provider Allergies Allergy ClassificationReported Allergen(s)Allergy TypeDate of OnsetReaction(s) Facility (4 sources)Adhesive TapeAllergy to [id number] (20 sources)Adhesive TapeDrug allergyrasSouth[facility] Other (2 sources)Adhesive agentDrug allergy (disorder)[id number] ([facility] source)Adhesive TapeDrug allergy (disorder)[phone] [facility] Medications Current Medications MedicationDrug Class(es)DatesSig (Normalized)Sig (Original)acetaminophen 325 mg / oxyCODONE hydrochloride 5 mg oral tablet (5 sources)Opioid AgonistStart: 12-22-2024 End: 80-19-0915izlq 1 tablet by mouth twice daily as needed for painOxycodone- Acetaminophen 5-325 mg tablet Active 1 TAB PO Twice daily as needed for pain 60 30 0 December 22, 2024 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 Neoplasm related pain (acute) (chronic) Complies with drug therapyStart: 12-22-2024 End: 02-99-0455pxkn 1 tablet by mouth every eight hours as neededOxycodone- Acetaminophen 5-325 mg tablet Discontinued 1 TAB PO Every 8 hours as needed 0 December 22, 2024 12:00am December 22, 2024 10:[id number] 200 actuat albuterol 0.09 mg/actuat metered dose inhaler (7 sources)beta2-Adrenergic AgonistStart: 65-74-2549Qrtsfxhwg Sulfate 90 mcg/actuation HFA aerosol inhaler Active INHALATION June 27, 2024 12:00am Com plies with drug therapyascorbic acid 200 mg / beta carotene 1000 unt / cuprous oxide 2 mg / dl-alpha tocopheryl acetate 60unt / lutein 2 mg / sodium selenate 0.055 mg / zinc oxide 40 mg oral tablet (3 sources)Vitamin CStart: 15-70-6729lhpd 1 tablet by mouth once dailyVit A,C And E-Eilyos-Ygwvmpjz (Healthy Eyes) 300 mcg-200 mg-27 mg-2 mg Tablet Active 1 TAB PO DailyApril 2021 12:00am macular degeneration Complies with drug therapybenoxinate hydrochloride 4 mg/ml / fluorescein sodium 2.5 mg/ml ophthalmic solution (1 source)Diagnostic DyeStart: 08-07-2021 End: 21-57-3442oojjkooqmly-benoxinate 0.25-0.4 % 1 Drop (FLURESS)cefadroxil 500 mg oral capsule (6 sources)Cephalosporin AntibacterialStart: 41-52-8632uqfj 1 capsule by mouth every twelve hoursCefadroxil 500 MG 1 tablet Orally every 12 hrs for 7 days MED TO BED UPON DISCHARGE DOS 07/21/2021 Jun, Activecholecalciferol 0.025 mg oral tablet (20 sources)Vitamin DStart: 90-73-6800orgy 1 tablet by mouth every twenty-four hoursVitamin D 25 MCG (1000 UT) 1 tablet Orally Once a day for 56 day(s) Jun, ActiveStart: 81-51-8561lbzo 1 tablet by mouth once dailyCholecalciferol (Vitamin D3) (Vitamin D3) 25 mcg (1,000 unit) Tablet Active 25 MCG PO Daily July 07, 2021 12:00am Complies with drug therapyStart: 90-95-8849Zztpnjv D3 250 MCG (36263 UT) as directed Orally Feb, ActiveStart: 02-27-2021 Vitamin D3 250 MCG (22912 UT) as directed Orally Feb, ActiveComment on above:Take 1,000 Units by mouth once daily.docusate sodium 50 mg / sennosides, assisted 8.6 mg oral tablet (6 sources)Start: 56-70-3350lcnw 2 tablets by mouth every twenty-four hours Senokot S 8.6-50 MG 2 tablets Orally Once a day for 30 day(s) MED TO BED UPON DISCHARGE DOS 07/21/2021 Jun, ActiveHealthy Eyes - (20 sources)Healthy Eyes - as directed Orally Activeibuprofen 800 mg oral tablet (5 sources)Nonsteroidal Anti-inflammatory DrugStart: 89-94-0147bosg 1 tablet by mouth twice dailyIbuprofen 800 mg tablet Active 800 MG PO Twice daily July 25, 2024 12:00am Complies with drug therapyIron (5 sources)Start: 66-10-1039qrkm 1 tablet by mouth three times dailyIron (Ferrous Sulfate) 325 (65 Fe) MG 1 tablet Orally TID for 28 days Jun, Activeketorolac tromethamine 5 mg/ml ophthalmic solution (3 sources)Nonsteroidal Anti-inflammatory Drug, Cyclooxygenase InhibitorStart: 64-34-0515ybNZEjloi (ACULAR) 0.5 % ophthalmic solution USE DIRECTED BY PHYSICIAN, IN OPERATIVE EYE, BEGINNING ONE DAY AFTER SURGERY 5 mL 0 08/20/2021 ActiveStart: 11-83-6002uoVDQzwup (ACULAR) 0.5 % ophthalmic solution USE DIRECTED BY PHYSICIAN, IN OPERATIVE EYE, BEGINNING ONE DAY AFTER SURGERY 5 mL 0 08/05/2021 ActiveComment on above:USE DIRECTED BY PHYSICIAN, IN OPERATIVE EYE, BEGINNING ONE DAY AFTER SURGERYlisinopril 5 mg oral tablet (20 sources)Angiotensin Converting Enzyme InhibitorStart: 11-01-2023 End: 88-81-1844Cywxalzyuv 5 mg tablet Active 0 .ROUTE .COMPLEX 90 August 22, 2024 12:12pm TAKE 1 TABLET EVERY DAYComplies with drug therapyStart: 06-01-2023 End: 53-55-4160nunm 1 tablet by mouth once dailyLisinopril 5 mg tablet Discontinued 5 MG PO Daily 90 August 18, 2023 12:29pm November 01, 2023 9:43am Start: 76-92-6452nhkf 1 tablet by mouth every twenty-four hoursLisinopril 5 MG 1 tablet Orally Once a day for 30 day(s) Dec, ActivemethylPREDNISolone 4 mg oral tablet (1 source)CorticosteroidStart: 67-71-7984Llooyy 4 MG as directed Orally Once a day for 5 days Aug, Activemorphine sulfate 15 mg extended release oral tablet (20 sources)Opioid AgonistStart: 01-15-2025 End: 72-94-5277bfqg 1 tablet by mouth every eight hoursMorphine 15 mg tablet extended release Active 15 MG PO Every 8 hours 90 30 0 January 15, 2025 [employer] Super[employer] davion pain after treatment for malignant neoplasm Neoplasm related pain (acute) (chronic) Complies with drug therapyStart: 12-22-2024 End: 54-14-5822iigc 1 tablet by mouth every eight hoursMorphine 15 mg tablet extended release Discontinued 15 MG PO Every 8 hours 90 30 December 22, December 22, 2024 11:02am 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 Neoplasm related pain (acute) (chronic)Start: 12-22-2024 End: 14-78-4982adzv 1 tablet by mouth every eight hoursMorphine 15 mg tablet extended release Discontinued 15 MG PO Every 8 hours 90 30 December 22, 2 January 15, 2025 8:35am 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 Neoplasm related pain (acute) (chronic)Start: 09-22-2024 End: 90-73-6266thwp 1 tablet by mouth every twelve hoursMorphine 15 mg tablet extended release Discontinued 15 MG PO Q12H 60 30 0 November 28, 2024 Septem tonya 2024 10:18am 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 Neoplasm related pain (acute) (chronic)Start: 08-30-2024 End: 08-18-1025heyb 1 tablet by mouth every twelve hoursMorphine 15 mg tablet extended release Discontinued 15 MG PO Q12H 60 30 0 August 30, 2024 August 30, 2 025 1:38pm 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 Neoplasm related pain (acute) (chronic)Start: 05-09-2024 End: 60-65-5494buic 1 tablet by mouth every twelve hoursMorphine 15 mg tablet extended release Discontinued 15 MG PO Q12H 60 30 0 June 23, 2024 July 31, 2024 9:57am 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 Neoplasm related pain (acute) (chronic)Start: 04-26-2024 End: 16-21-5598mxmf 1 tablet by mouth every twelve hoursMorphine 15 mg tablet extended release Discontinued 15 MG PO Q12H 30 15 0 April 26, 2024 April 26, 2024 11:24am 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 Neoplasm related pain (acute) (chronic)Start: 04-26-2024 End: 52-26-0097huen 1 tablet by mouth every twelve hoursMorphine 15 mg tablet extended release Discontinued 15 MG PO Q12H 30 15 0 April 26, 2024 May 09, 2024 4:42pm 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 Neoplasm related pain (acute) (chronic)Start: 30-72-6137bczy 1 tablet by mouth every twelve hours for painMorphine Sulfate ER 15 MG 1 tablet for breakthrough pain only Orally every 12 hrs for 5 days MED TOBED UPON DISCHARGE DOS 07/21/2021 Jun, ActiveMultivitamin preparation (14 sources)take 1 tablet by mouth once dailyMulti Vitamin - 1 tablet Orally Once a day ActiveMv,Ca,Min-Folic Acid-Vit K1 (One-A-Day Women's 50 Plus) 400-20 mcg Tablet (14 sources)Start: 33-76-0798onub 50-400 tablets by mouth once dailyMv,Ca,Min- Folic Acid-Vit K1 (One-A-Day Women's 50 Plus) 400-20 mcg Tablet Active 1 TAB PO Daily July 07, 2021 12:00am supplement Complies with drug therapyStart: 27-15-4902lsmc 50-400 tablets by mouth once dailyMv,Ca,Min-Folic Acid-Vit K1 (One-A-Day Women's 50 Plus) 400-20 mcg Tablet Active 1 TAB PO Daily July 07, 2021 12:00am Complies with drug therapyStart: 00-04-7083wwhu 50-400 tablets by mouth once dailyMv,Ca,Min-Folic Acid-Vit K1 (One-A-Day Women's 50 Plus) 400-20 mcg Tablet Active 1 TAB PO Daily July 06, 2021 11:00pmStart: 56-03-2882vwsd 50-400 tablets by mouth once dailyMv,Ca,Min-Folic Acid-Vit K1 (One-A-Day Women's 50 Plus) 400-20 mcg Tablet Active 1 TAB PO Daily July 07, 2021 12:00am Myrbetrig 25mg (8 sources)Start: 32-97-8462uoxn 1 tablet by mouth once dailyMyrbetrig 25mg 1 Tablet Orally Once a day Feb, Activeondansetron 8 mg oral tablet (6 sources)Serotonin-3 Receptor AntagonistStart: 48-01-5202xwwg 1 tablet by mouth three times daily as needed for nauseaOndansetron HCl 8 MG 1 tablet as needed for nausea Orally TID for 10 days MED TO BED UPON DISCHARGEDOS 07/21/2021 Jun, Activepolyethylene glycol 3350 38139 mg powder for oral solution (6 sources)Osmotic LaxativeStart: 35-12-7921XrkmIlq 17 GM 1 packet mixed with 8 ounces of fluid Orally Once a day for 7 days MED TO BED UPON DISCHARGE DOS 07/21/2021 Jun, Activepravastatin sodium 10 mg oral tablet (20 sources)HMG-CoA Reductase InhibitorStart: 01-18-2024 End: 16-95-5027Ydpnekpakxs 10 mg tablet Active 0 .ROUTE .COMPLEX 90 3 November 14, 2024 3:06pm TAKE 1 TABLET EVERYDAY Complies with drug therapyStart: 12-25-2010 End: 29-89-6699xvsk 1 tablet by mouth once daily at bedtimePravastatin 10 mg tablet Discontinued 10 MG PO Daily at bedtime July 07, 2021 12:00am January 18, 2024 4:48pm hyperlipidemiaComment on above:Take 1 tablet by mouth once daily.prednisoLONE acetate 10 mg/ml ophthalmic suspension (3 sources)CorticosteroidStart: 83-61-7868bbsmsylfYKSD acetate (PRED FORTE, ECONOPRED PLUS) 1 % ophthalmic suspension USE DIRECTED BY PHYSICIAN, IN OPERATIVE EYE, BEGINNING ONE DAY AFTER SURGERY 5 mL 0 08/20/2021 ActiveStart: 96-39-3552viiqauikASYV acetate (PRED FORTE, ECONOPRED PLUS) 1 % ophthalmic suspension USE DIRECTED BY PHYSICIAN, IN OPERATIVE EYE, BEGINNING ONE DAY AFTER SURGERY 5 mL 0 08/05/2021 ActiveComment on above:USE DIRECTED BY PHYSICIAN, IN OPERATIVE EYE, BEGINNING ONE DAY AFTER SURGERYVit A,C And H-Sbgewh-Jnsmgkdd (Healthy Eyes) 300 mcg-200 mg-27 mg-2 mg Tablet (11 sources)Start: 99-22-3112ktul 1 tablet by mouth once dailyVit A,C And H-Monigd-Rcywpibs (Healthy Eyes) 300 mcg-200 mg-27 mg-2 mg Tablet Active 1 TAB PO DailyApril 2021 11:00pmStart: 55-77-7279ohqd 1 tablet by mouth once dailyVit A,C And L-Infmil-Nbnpyrrl (Healthy Eyes) 300 mcg-200 mg-27 mg-2 mg Tablet Active 1 TAB PO DailyApril 2021 12:00amVitamin D 25 MCG (1000 UT) (20 sources)Start: 44-99-4134bpeb 1 tablet by mouth once dailyVitamin D 25 MCG (1000 UT) 1 tablet Orally Once a day for 56 day(s) Jun, ActiveVitamin D3 250 MCG (62856 UT) (19 sources)Start: 79-51-1785Xqajxou D3 250 MCG (79019 UT) as directed Orally Feb, Active Completed/Discontinued Medications MedicationDrug Class(es)DatesSig (Normalized)Sig (Original)acetaminophen 500 mg oral tablet (20 sources)Start: 07-07-2021 End: 03-37-3549tdqo 2 tablets by mouth three times daily as needed for pain Acetaminophen (Acetaminophen Extra Strength) 500 mg Tablet Discontinued 1000 MG PO Three times daily as needed for Pain July 07, 2021 12:00am May 31, 2023 4:18pmStart: 03-94-0481kchr 2 tablets by mouth every eight hours for pain acetaminophen (TYLENOL) 500 mg tablet TAKE TWO TABLETS BY MOUTH EVERY 8 HOURS FOR PAIN 0 07/16/2021ctiveComment on above:TAKE TWO TABLETS BY MOUTH EVERY 8 HOURS FOR PAINaspirin 81 mg delayed release oral tablet (20 sources)Platelet Aggregation Inhibitor, Nonsteroidal Anti-inflammatory Drug Start: 52-34-4896qjco 1 tablet by mouth twice dailyAspirin 81 MG 1 tablet Orally BID for 35 days MED TO BED UPON DISCHARGE DOS 07/21/2021Jun,ctive Start: 14-57-8641wxor 1 tablet by mouth every twenty-four hoursAspirin 81 MG 1 tablet Orally Once a day for 30 day(s) Feb, ActiveStart: 12-25-2010 End: 62-16-8593sgaf 1 tablet by mouth once dailyAspirin (Aspirin Low Dose) 81 mg Tablet,Delayed Release (Dr/Ec) Discontinued 81 MG PO Daily July 07, 2021 12:00am March 06, 2024 12:52pmComment on above:Take 1 tablet by mouth once daily.calcium carbonate 1250 mg / cholecalciferol 100 unt / vitamin k1 0.04 mg chewable tablet (14 sources)Vitamin D, Warfarin Reversal Agent, Vitamin KStart: 07-07-2021 End: 68-13-2571sxgh 2 tablets by mouth once dailyCalcium-Vitamin D3-Vitamin K (Viactiv) 500-100-40 mg-unit-mcg Tablet,Chewable Discontinued 2 TAB PODaily July 07, 2021 12:00am June 01, 2023 1:19pm bone healthcelecoxib 200 mg oral capsule (10 sources)Nonsteroidal Anti-inflammatory DrugStart: 47-21-2045pnuq 1 capsule by mouth twice daily at mealtimecelecoxib (CELEBREX) 200 mg capsule Take 200 mg by mouth twice daily with meals. 0 07/16/2021 ActiveComment on above:Take 200 mg by mouth twice daily with meals.diphenhydrAMINE hydrochloride 25 mg oral tablet (14 sources)Histamine-1 Receptor AntagonistStart: 07-07-2021 End: 34-25-8048tupf 1 tablet by mouth once daily at bedtime as needed Diphenhydramine Hcl (Sleep Aid (Diphenhydramine)) 25 mg Tablet Discontinued 25 MG PO Daily at bedtime as needed for Insomnia July 07, 2021 12:00am June 01, 2023 1:20pmDULoxetine 60 mg delayed release oral capsule (20 sources)Serotonin and Norepinephrine Reuptake InhibitorStart: 08-04-2023 End: 75-93-2870Ijpesvdnzz 60 mg capsule,delayed release(DR/EC) Discontinued 0 .ROUTE .COMPLEX 90 0 July 24, 2024 12:20pm October 09, 2024 8:18am TAKE 1 CAPSULE EVERY MORNINGStart: 08-04-2023 End: 25-36-2713Cmbcxgxkyh 30 mg capsule,delayed release(DR/EC) Discontinued 0 .ROUTE .COMPLEX 90 0 July 24, 2024 12:20pm October 09, 2024 8:18am TAKE 1 CAPSULE AT BEDTIMEStart: 08-01-2015 End: 64-10-2413svxn 1 capsule by mouth once daily in the morningDuloxetine 60 mg capsule,delayed release(DR/EC) Discontinued 60 MG PO Every morning July 07, 2021 12:00am August 04, 2023 1:44pm neuropathyStart: 05-21-2015 End: 21-83-1145tvtx 1 capsule by mouth once daily at bedtimeDuloxetine 30 mg capsule,delayed release(DR/EC) Discontinued 30 MG PO Daily at bedtime July 07, 2021 12:00am August 04, 2023 1:44pm neuropathyComment on above:Take 1 capsule by mouth once daily.TAKE ONE CAPSULE EVERY MORNING1 capsule every morning.1 capsule daily at bedtime.ferrous sulfate 325 mg oral tablet (4 sources)Start: 97-30-9471gxsi 1 tablet by mouth three times dailyferrous sulfate 325 mg (65 mg iron) tablet TAKE 1 TABLET BY MOUTH 3 TIMES A DAY FOR 28 DAYS 0 07/10/2021 ActiveComment on above:TAKE 1 TABLET BY MOUTH 3 TIMES A DAY FOR 28 DAYSfurosemide 20 mg oral tablet (4 sources)Loop DiureticStart: 08-01-2024 End: 02-47-3459wduf 1 tablet by mouth once dailyFurosemide 20 mg tablet Discontinued 20 MG PO Daily 14 0 August 01, 2024 12:00am September 22, 2024 10:14am gabapentin 300 mg oral capsule (20 sources)Anti-epileptic AgentStart: 06-29-2023 End: 33-87-2273iefv 1 capsule by mouth three times dailyGabapentin 300 mg capsule Discontinued 300 MG PO Three times daily 270 90 0 September 22, 2024 10:30amJun2024 10:41amStart: 07-07-2021 End: 81-98-2059qklg 1 tablet by mouth three times dailyGabapentin 600 mg tablet Discontinued 600 MG PO Three times daily July 07, 2021 12:00am June 29, 2023 2:57pm pain/neuropathyStart: 21-66-0490fjylqpicnf (NEURONTIN) 600 mg tablet take 1 capsule by mouth every twenty-four hoursGabapentin 400 MG 1 tablet Orally Once a day for 7 days ActivelevoFLOXacin 500 mg oral tablet (10 sources)Quinolone AntimicrobialStart: 06-02-2023 End: 01-14-8549pdxc 1 tablet by mouth once dailyLevofloxacin 500 mg tablet Discontinued 500 MG PO Daily June 02, 2023 1:00am June 29, 2023 2:29pm meloxicam 15 mg oral tablet (20 sources)Nonsteroidal Anti-inflammatory DrugStart: 02-27-2021 End: 74-00-3599povi 1 tablet by mouth every twenty-four hoursMeloxicam 15 MG 1 tablet Orally Once a day for 30 day(s) Feb, Not-Taking/PRNComment on above:TAKE 1 TABLET BY MOUTH EVERY DAY FOR 30 DAYS24 hr mirabegron 50 mg extended release oral tablet (20 sources)beta3-Adrenergic AgonistStart: 07-27-2023 End: 81-93-7169vggy 1 tablet by mouth once dailyMirabegron (Myrbetriq) 50 mg tablet extended release 24 hr Discontinued 0 .ROUTE .COMPLEX 30 2 2023 9:59am December 20, 2023 10:17am TAKE 1 TABLET BY MOUTH EVERY DAY FOR 90 DAYS Start: 06-01-2023 End: 43-84-6809mrxh 1 tablet by mouth once dailyMirabegron (Myrbetriq) 50 mg tablet extended release 24 hr Discontinued 50 MG PO Daily July 27, 2023 12:00am July 27, 2023 3:47pmStart: 14-06-9882zpbs 50 mg by mouth once daily MYRBETRIQ 50 mg Tb24 Take 50 mg by mouth once daily. 0 07/07/2021 ActiveComment on above:Take 50 mg by mouth once daily.naloxone hydrochloride 40 mg/ml nasal spray (3 sources)Opioid AntagonistStart: 10-21-2023 End: 68-50-5216Oletvbnx (Narcan) 4 mg/actuation spray,non-aerosol Discontinued 1 SPRAY INTRANASAL Q2M 2 0 October 21, 2023 12:00am March 06, 2024 12:54pm spray 1 dose into ONE nostril; alternate nostrils w each dose until help arrives Naloxone (Narcan) 4 mg/actuation spray,non-aerosol (6 sources)Start: 10-21-2023 End: 55-26-8691Dplhjasp (Narcan) 4 mg/actuation spray,non-aerosol Discontinued 1 SPRAY INTRANASAL Q2M 2 September 12:00am March 06, 2024 12:54pm spray 1 dose into ONE nostril; alternate nostrils w each dose until help arrivesStart: 10-21-2023 End: 10-50-7803Kjaapyhj (Narcan) 4 mg/actuation spray,non-aerosol Discontinued 1 SPRAY INTRANASAL Q2M 2 September 11:00pm March 06, 2024 11:54am spray 1 dose into ONE nostril; alternate nostrils w each dose until help arrivesnaproxen 500 mg oral tablet (20 sources)Nonsteroidal Anti-inflammatory DrugStart: 06-24-2023 End: 71-35-4013whpz 1 tablet by mouth once dailyNaproxen 500 mg tablet Discontinued 0 .ROUTE .COMPLEX 90 0 August 18, 2023 12:30pm November 01, 2023 9 :43am TAKE 1 TABLET BY MOUTH EVERY DAYStart: 04-30-2021 End: 58-82-6019ufal 1 tablet by mouth once dailyNaproxen 500 mg tablet Discontinued 500 MG PO every day at noon July 07, 2021 12:00am June 24, 2023 1:04pm painStart: 97-46-4034mdnl 1 tablet by mouth every twelve hours at mealtime as neededNaproxen 500 MG 1 tablet with food or milk as needed Orally every 12 hrs Feb, ActiveComment on above:Take 500 mg by mouth once daily.Tiotropium-Olodaterol (10 sources)Anticholinergic, beta2-Adrenergic AgonistStart: 06-01-2023 End: 28-74-0291Uaxttzmapg-Olodaterol (Stiolto Respimat) 2.5-2.5 mcg/actuation mist Discontinued INHALATION June 01, 2023 1:00am September 22, 2024 10:15am Start: 45-66-2053Cdxlxokpvw-Olodaterol (Stiolto Respimat) 2.5-2.5 mcg/actuation mist Active INHALATION June 01, 2023 12:00amStart: 73-15-0980Zctlivqrii- Olodaterol (Stiolto Respimat) 2.5-2.5 mcg/actuation mist Active INHALATION June 01, 2023 1:00amoseltamivir 75 mg oral capsule (8 sources)Neuraminidase InhibitorStart: 06-02-2024 End: 50-85-7448pshz 1 capsule by mouth every twelve hoursOseltamivir (Tamiflu) 75 mg capsule Discontinued 75 MG PO Every 12 hours 10 5 0 June 02, 2024 1:00am June 27, 2024 2:13pm24 hr oxybutynin chloride 10 mg extended release oral tablet (1 source)Cholinergic Muscarinic AntagonistStart: 05-05-2021 End: 09-65-2880dscqyiqadn ER (DITROPAN XL) 10 mg 24 hr tabletoxyCODONE hydrochloride 10 mg oral tablet (20 sources)Opioid AgonistStart: 06-29-2023 End: 04-77-7867xdqv 1 tablet by mouth three times daily as needed for pain Oxycodone 10 mg tablet Discontinued 10 MG PO Three times daily as needed for pain 90 30 0 September 16, 2023 October 14, 2023 10:32am Chronic thoracic back pain Pain in thoracic spine Other chronic painStart: 05-27-2023 End: 60-40-7219siwf 1 tablet by mouth every eight hours as needed for pain Oxycodone 15 mg tablet Discontinued 15 MG PO Every 8 hours as needed for pain 90 30 0 May 31, 2023 June 29, 2023 2:57pm Chronic thoracic back pain Pain in thoracic spine Other chronic painStart: 85-41-2509tqnx 1 tablet by mouth every eight hoursoxyCODONE HCl 15 MG 1 tablet Orally q8h for 30 days Apr, ActiveStart: 55-97-8423pvlo 1 tablet by mouth every eight hoursoxyCODONE HCl 15 MG 1 tablet Orally q8h for 30 days Feb, ActiveStart: 41-10-5840ysvs 1 tablet by mouth every eight hoursoxyCODONE HCl 15 MG 1 tablet Orally q8h for 30 days Jan, ActiveStart: 23-39-6744gknHTYMVM HCl 15 MG 1 tablet Orally 1 tablet in the afternoon, 2 tablets at night for 30 days Dec, Active Start: 12-75-6576tauAVGOCU HCl 15 MG 1 tablet Orally 1 tablet in the afternoon, 2 tablets at night for 30 days Sep, ActiveStart: 71-19-9630scyWBNMYA HCl 15 MG 1 tablet Orally 1 tablet in the afternoon, 2 tablets at night for 30 days Aug, ActiveStart: 30-95-0603cdeDXJAPO HCl 15 MG 1 tablet Orally 1 tablet in the afternoon, 2 tablets at night for 30 days Jun, ActiveStart: 07-07-2021 End: 87-59-2002miul 1 tablet by mouth twice dailyOxycodone 15 mg tablet Discontinued 15 MG PO Twice daily July 07, 2021 12:00am June 01, 2023 1: 21pm painStart: 07-07-2021 End: 18-55-3850ljym 7.5 mg by mouth once dailyOxycodone 15 mg tablet Discontinued 7.5 MG PO Daily July 07, 2021 12:00am June 01, 2023 1:21pmpain Start: 07-07-2021 End: 82-44-6691uwdn 7.5 mg by mouth once dailyOxycodone Discontinued 7.5 MG PO Daily July 07, 2021 12:00am June 01, 2023 1:21pmStart: 01-63-6211yqdg 1 tablet by mouth every four hours as needed for painoxyCODONE HCl 5 MG 1 tablet as needed for pain Orally every 4 hrs for 7 days MED TO BED UPON DISCHARGE DOS 07/21/2021 Jun, ActiveStart: 69-95-9946nerf 1 tablet by mouth every six hoursoxyCODONE HCl 15 MG 1 tablet Orally every 6 hrs Feb, Active microencapsulated potassium chloride 10 meq extended release oral tablet (3 sources)Start: 08-01-2024 End: 59-97-4245Tcuglvymh Chloride (Klor-Con M10) 10 mEq tablet,ER particles/crystals Discontinued 10 MEQ PO Daily 14 0 August 01, 2024 12:00am September 22, 2024 10:15ampredniSONE 20 mg oral tablet (10 sources)Start: 06-02-2023 End: 89-27-1543rirb 1 tablet by mouth twice dailyPrednisone 20 mg tablet Discontinued 20 MG PO Twice daily June 02, 2023 1:00am June 29, 2023 2:29pm 12 hr tapentadol 50 mg extended release oral tablet (1 source)Opioid AgonistStart: 06-19-2015 End: 78-55-4202iggjijvxex (NUCYNTA ER) 50 mg Tb12 Take one tablet twice a day for pain 60 tablet 0 06/19/2015 07/30/2021 Discontinued (Course of therapy completed)Comment on above:Take one tablet twice a day for paintraMADol hydrochloride 50 mg oral tablet (10 sources)Opioid AgonistStart: 17-96-3833kcjw 1 tablet by mouth every six hours as neededtraMADol (ULTRAM) 50 mg tablet Take 50 mg by mouth every 6 hours as needed. 0 07/16/2021 ActiveComment on above:Take 50 mg by mouth every 6 hours as needed.Triamcinolone (20 sources)CorticosteroidStart: 96-86-7511Filapjs -40 mg Feb, 120 mg zolpidem tartrate 10 mg oral tablet (1 source)gamma-Aminobutyric Acid-ergic AgonistStart: 09-04-2014 End: 63-03-6377ufbgpbkg (AMBIEN) 10 mg tab Take 1 tablet at bedtime. 0 09/04/2014 07/30/2021 Discontinued (Course of therapy completed)Comment on above:Take 1 tablet at bedtime. 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]37-42-9144DmfgdgsMocaezdg (2 sources)Bilateral senile combined form cataracts of eyes; Translations: [Combined forms of age-related cataract, bilateral]ChronicChronic obstructive pulmonary disease and bronchiectasis (15 sources)Moderate chronic obstructive pulmonary disease; Translations: [Chronic obstructive pulmonary disease, unspecified]ChronicCongestive heart failure; nonhypertensive (10 sources)Congestive heart failure; Translations: [Heart failure, unspecified] Onset: [id number]gihiol and other anemia (10 sources)Anemia of chronic disease; Translations: [Anemia in other chronic diseases classified elsewhere]78-02-9934MmafkshBiaewwmfrx and other anemia (1 source)Anemia in other chronic diseases classified elsewhere; Translations: [Anemia of other chronic disease]69-23-7751DhjrdqqMkvpsnlvt of lipid metabolism (20 sources)Hyperlipidemia; Translations: [Other hyperlipidemia]Onset: 853273-73-1949EwnbzycU Codes: Fall (8 sources)Fall; Translations: [Unspecified fall, initial encounter]07-25-2024 EpisodicEssential hypertension (9 sources)Hypertensive disorder; Translations: [Essential (primary) hypertension]99-06-7833FktydjxEdargpy on above:hx of-no medication currentlyProblem List clean-up per request of Phys. EHR CmteMycoses (2 sources)Histoplasmosis syndrome of left eye; Translations: [Histoplasmosis, unspecified]EpisodicNonspecific chest pain (2 sources)Rib pain; Translations: [Other chest pain]78-68-9291Omrelvej Osteoarthritis (20 sources)Osteoarthritis of left knee joint; Translations: [Unilateral primary osteoarthritis, left knee]Onset: 05-28-2021 Resolved: 65-30-9512KtcywjvGlgbomntyybx (20 sources)Primary osteoporosis; Translations: [Age-related osteoporosis without current pathological fracture]Onset: 05-28-2021 Resolved: 10-61-6203HqkkvteAplne aftercare (20 sources)Patient encounter status; Translations: [Aftercare following joint replacement surgery]ChronicOther aftercare (4 sources)Aftercare following joint replacement surgeryOnset: 08-07-2021 Resolved: 63-64-0232HexssdjKpklz aftercare (9 sources)Patient encounter status; Translations: [Encounter for palliative care]39-25-6981GpcilrorFvjxc aftercare (5 sources)Encounter for palliative care; Translations: [Encounter for palliative care]70-09-3915ZbkdexyoVromx and unspecified benign neoplasm (17 sources)History of polyp of colon; Translations: [History of colon polyps] EpisodicOther connective tissue disease (20 sources)Artificial knee joint present; Translations: [Presence of left artificial knee joint]33-35-5631RurdosdOrbij connective tissue disease (4 sources)Presence of left artificial knee jointOnset: 08-07-2021 Resolved: 05-45-9482OkljtkuHapfh connective tissue disease (1 source)Neuralgia and neuritis, unspecifiedEpisodicOther connective tissue disease (4 sources)Hand pain; Translations: [Pain in left hand]10-23-8675WqxyyaduTprdp connective tissue disease (4 sources)Pain in left hand; Translations: [Pain in limb]83-46-3071Vqhtvwjb Other connective tissue disease (4 sources)Pain of left hand; Translations: [Pain in left hand]06-27-2024 EpisodicOther diseases of bladder and urethra (20 sources)Overactive bladder; Translations: [Overactive bladder]05-31-2023 ChronicOther diseases of bladder and urethra (1 source)Overactive bladderChronicOther eye disorders (2 sources)H/O: L cataract extraction; Translations: [Cataract extraction status, left eye]EpisodicOther fractures (6 sources)Fracture of rib; Translations: [Fracture of one rib, unspecified side, initial encounter for closedfracture]36-91-7647AdobmjafOwmpc fractures (2 sources)Fracture of one rib, unspecified side, initial encounter for closed fracture; Translations: [Closedfracture of rib(s), unspecified]07-25-2024 EpisodicOther gastrointestinal disorders (9 sources)Constipation; Translations: [Constipation, unspecified]04-30-2024 EpisodicOther gastrointestinal disorders (5 sources)Constipation, unspecified; Translations: [Constipation, unspecified] 48-32-3102MntjuvwwDqccg lower respiratory disease (17 sources)Dyspnea; Translations: [Shortness of breath]82-93-0351GhyvjkscCmilb lower respiratory disease (2 sources)Shortness of breathEpisodicOther lower respiratory disease (9 sources)Cough; Translations: [Cough]03-90-4989NbifhisuUxegl nervous system disorders (5 sources)Complex regional pain syndrome type I; Translations: [Complex regional pain syndrome I, unspecified]Onset: 588953-48-8384YqaoeshSjdfl nervous system disorders (20 sources)Expressive dysphasia; Translations: [Aphasia]68-83-8970JlfxubuRpbsm nervous system disorders (18 sources)Peripheral neuropathic pain; Translations: [Unspecified mononeuropathy of bilateral lower limbs]32-61-3164BquheksUyzgw nervous system disorders (5 sources)Unspecified mononeuropathy of bilateral lower limbs; Translations: [Unspecified hereditary and idiopathic peripheral neuropathy]ChronicOther nervous system disorders (10 sources)Metabolic encephalopathy; Translations: [Metabolic encephalopathy] 02-58-0358LtrbfowLolne nervous system disorders (1 source)Metabolic encephalopathy; Translations: [Metabolic encephalopathy] 48-26-0576MfhjbdkKyqqk nervous system disorders (12 sources)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; Translations: [Neoplasm related pain (acute) (chronic)]17-19-4601IrxunbhTvvxa nervous system disorders (10 sources)Neoplasm related pain (acute) (chronic); Translations: [Neoplasm related pain (acute) (chronic)]95-00-8752EkapmdtScvub nervous system disorders (1 source)Other speech disturbancesEpisodicOther non-traumatic joint disorders (6 sources)Pain in wrist; Translations: [Pain in left wrist]28-99-2579Rpigxauv Other non-traumatic joint disorders (2 sources)Pain in left wrist; Translations: [Pain in joint, forearm]Onset: 828510-38-3570EspnemikDpwoa non-traumatic joint disorders (3 sources)Pain of left wrist; Translations: [Pain in left wrist]03-07-2024 EpisodicOther nutritional; endocrine; and metabolic disorders (2 sources)Body mass index 30+ - obesity; Translations: [Obesity, unspecified] Onset: 405971-59-8990PwuggjyUjgrx skin disorders (6 sources)Generalized hyperhidrosis; Translations: [GENERALIZED HYPERHIDROSIS] Onset: 40-78-7370DwnhchmmFjhrw skin disorders (17 sources)Excessive sweating; Translations: [Generalized hyperhidrosis] 70-50-6755NlvwdugzWlbtoazvq (except that caused by tuberculosis or sexually transmitted disease) (11 sources)Pneumonia; Translations: [Pneumonia, unspecified organism]06-02-2023 EpisodicPulmonary heart disease (20 sources)Pulmonary hypertension; Translations: [Pulmonary hypertension, unspecified]ChronicResidual codes; unclassified (6 sources)Confusional state; Translations: [Disorientation, unspecified] 19-19-8954NifajpaaMazfhfel codes; unclassified (2 sources)Disorientation, unspecified; Translations: [Unspecified psychosis] 09-56-1950IobobdccLnywxrhs codes; unclassified (5 sources)Edema; Translations: [Edema, unspecified]08-12-8502IcnpfqsaPkvgoyhe codes; unclassified (1 source)Edema, unspecified; Translations: [Edema]64-49-9848IcwhlubjRufdqwj detachments; defects; vascular occlusion; and retinopathy (10 sources)Degenerative disorder of macula ; Translations: [Unspecified macular degeneration]62-00-1367RptnuluKtzrqvvsgw (except in labor) (11 sources)Sepsis; Translations: [Sepsis, unspecified organism]06-02-2023 EpisodicSpondylosis; intervertebral disc disorders; other back problems (15 sources)Pain in thoracic spine; Translations: [Chronic thoracic back pain] EpisodicUnclassified (2 sources)CONTACT W/AND (SUSP) EXPOS COVID-19; Translations: [CONTACT W/AND (SUSP) EXPOS COVID-19]Onset: 88-88-6981Bgevw infection (1 source)COVID-19; Translations: [COVID-19]Onset: 04-09-2021 Past or Other Problems Problem ClassificationProblemDateDocumented DateEpisodic/ChronicDiabetes mellitus without complication (1 source)Impaired fasting glucose; Translations: [IMPAIRED FASTING GLUCOSE] Onset: 63-86-5216WpxfmxylJnhmm aftercare (2 sources)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; Translations: [OTH TOOL CARRIER CURRENT DRUG THERAPY]Onset: 05-28-2021 Resolved: 02-68-5532IuogurfdRhrlw circulatory disease (4 sources)Other specified symptoms and signs involving the circulatory and respiratory systems; Translations:[OTH SPEC SX SIGNS INVLV CIRC RS]Onset: 31-83-1062GaraqyaoNcpas connective tissue disease (4 sources)Neuropathic pain; Translations: [Neuralgia and neuritis, unspecified] Onset: 473848-53-5851RzamrsaeRryyt lower respiratory disease (4 sources)Dyspnea, unspecified; Translations: [DYSPNEA UNSPECIFIED]Onset: 83-51-8186YdbaqujpRvdlw nervous system disorders (4 sources)Burning sensation; Translations: [Other disturbances of skin sensation]Onset: 190814-52-8203RjhxscmfVwslc non-traumatic joint disorders (4 sources)Pain in left knee; Translations: [PAIN IN LEFT KNEE]Onset: 02-04-2021 EpisodicUnclassified (1 source)CONTACT W/AND (SUSP) EXPOS COVID-19; Translations: [CONTACT W/AND (SUSP) EXPOS COVID-19]Onset: 04-03-2021 Results Test NameValueInterpretationReference RangeFacilityBasophils Auto (Bld) [#/Vol] on 01-27-3070Bulzsdqeg (Bld) [#/Vol]0.1 10 3/uL0.0-0.1FMarymount HospitalBasophils/100 WBC Auto (Bld)on 23-38-9957Ixmewparh/100 WBC (Bld)0.9 % 0.2-2.0[facility] HospitalEosinophils/100 WBC Auto (Bld)on 92-47-6389Gkzbpldotfk/100 WBC (Bld)3.8 %0.9-7.0[facility] Erythrocyte distribution width Auto (RBC) [Ratio]on 14-17-8243Ygjkmtjquyj distribution width (RBC) [Ratio]13.2 %11.0-15.0[facility] Estimated glomerular filtration rate (GFR) non- Americanon 08-11-2024 GFR/1.73 sq M.predicted among non-blacks MDRD (S/P/Bld) [Vol rate/Area]38 mL/min/{1.73_m2}Low>=60 mL/min/1.73m 2FMarymount HospitalGlobulin Calc (S) [Mass/Vol]on 77-94-4607Uptcvgrn (S) [Mass/Vol]3.4 g/dLWood County HospitalHematocrit Auto (Bld) [Volume fraction]on 08-11-2024 Hematocrit (Bld) [Volume fraction]37.9 %36.0-48.0[facility] HospitalHemoglobin [Mass/volume] in Bloodon 32-66-3955Eupmgsmgqe (Bld) [Mass/Vol] 11.7 g/dLLow12.0-16.0[facility] HospitalIron binding capacity [Mass/volume] in Serum or Plasmaon 52-95-6098Qjqz binding capacity [Mass/Vol] 311.0 ug/dL250.0-450.0[facility] HospitalIron saturation [Mass Fraction] in Serum or Plasmaon 66-19-7331Ozdj saturation [Mass fraction]26.4 % [facility] HospitalLaboratory - Chemistry and Chemistry - challengeon 74-65-5911Ninymsj [Mass/Vol]3.8 g/dL3.4-5.0[facility] HospitalALP [Catalytic activity/Vol]82 U/E84-317YgjaxammhWood County HospitalALT [Catalytic activity/Vol]29 U/E33-12BmkxtzravWood County Hospital AST [Catalytic activity/Vol]21 U/D15-62ZdimfcfxoWood County Hospital Bilirubin [Mass/Vol]0.5 mg/dL0.2-1.0[facility] HospitalCalcium [Mass/Vol]9.4 mg/dL8.5-10.1FMarymount HospitalChloride [Moles/Vol] 103 mmol/C11-000YccqsxglwWood County HospitalCO2 [Moles/Vol]34.1 mmol/LHigh 21.0-32.0[facility] HospitalCobalamin (Vitamin B12) [Mass/Vol]1895 pg/nMAlsksapw620-9569FfjszmddaWood County HospitalComment on above: Performed at: - [facility] [address] [id number] Director: Larry Nicolas PhD, Phone: [phone] [Mass/Vol]1.33 mg/dLHigh0.55-1.02[facility] HospitalFerritin [Mass/Vol]108.0 ng/mL8.0-252.0[facility] HospitalGFR/1.73 sq M.predicted MDRD (S/P/Bld) [Vol rate/Area]47 mL/min/{1.73_m2}Low>=60 mL/min/1.73m 2FMarymount HospitalGlucose [Mass/Vol]107 mg/rRBpvl33-375AjkrkpgcbWood County HospitalIron [Mass/Vol]82.0 ug/dL50.0-170.0[facility] HospitalPotassium [Moles/Vol]5.1 mmol/L3.5-5.1FMarymount Hospital Protein [Mass/Vol]7.2 g/dL6.4-8.2FMercy Hospitalodium [Moles/Vol]141 mmol/Y711-323OhwmllotsWood County HospitalUrea nitrogen [Mass/Vol]29.0 mg/dLHigh7.0-18.0[facility] HospitalUrea nitrogen/Creatinine [Mass ratio]21.8 mg/mgWood County Hospital Laboratory - Hematology and Cell countson 14-10-0742BJP (Bld) [Velocity]28 mm/h <=30Wood [facility] HospitalImmature granulocytes/100 WBC (Bld)0.7 % High0.0-0.5FMarymount HospitalLeukocytes [#/volume] corrected for nucleated erythrocytes in Blood by Automated counon 10-32-5042XEY corrected for nucl RBC Auto (Bld) [#/Vol]8.1 10 3/uL4.0-11.0[facility] Lymphocytes Auto (Bld) [#/Vol]on 32-89-1888Lrrccoeqhvw (Bld) [#/Vol]2.9 10 3/uL 1.2-3.8[facility] HospitalLymphocytes/100 WBC Auto (Bld)on 22-00-1024Fysaradazqq/100 WBC (Bld)35.7 %20.5-60.0[facility] CenterH Auto (RBC) [Entitic mass]on 94-46-2137ZDS (RBC) [Entitic mass]30.2 pg 26.7-34.0[facility] HospitalMCHC Auto (RBC) [Mass/Vol]on 52-39-8271VGMN (RBC) [Mass/Vol]30.9 g/dL29.9-35.2FMarymount HospitalMCV Auto (RBC) [Entitic vol]on 00-93-0385NCM (RBC) [Entitic vol]97.9 fL 81.0-99.0[facility] HospitalMonocytes Auto (Bld) [#/Vol]on 41-66-8533Hzqthnvfg (Bld) [#/Vol]0.6 10 3/uL0.3-0.8[facility] HospitalMonocytes/100 WBC Auto (Bld)on 06-89-1920Zosjukgtx/100 WBC (Bld)7.5 % 1.7-12.0[facility] HospitalNeutrophils Auto (Bld) [#/Vol]on 91-94-0751Rvgkcdgkmcx (Bld) [#/Vol]4.2 10 3/uL1.4-6.5FMarymount HospitalNeutrophils/100 WBC Auto (Bld)on 11-57-6021Tstmphjjude/100 WBC (Bld)51.4 % 43.0-75.0[facility] HospitalNo Panel Informationon 35-76-9127V- Reactive Protein, Quantitative<0.50 mg/dL<=0.50[facility] Eosinophils # (Auto)0.3 10 3/uL0.0-0.7FMarymount HospitalImmature Granulocyte # (Auto)0.06 10 3/uLHigh0.00-0.03[facility] Platelet mean volume Auto (Bld) [Entitic vol]on 85-93-9425Rxhfqbed mean volume (Bld) [Entitic vol]9.9 fL9.5-13.5FMarymount HospitalPlatelets Auto (Bld) [#/Vol]on 82-58-5595Xpoezgtbp (Bld) [#/Vol]318 10 3/zH283-924TlqnbarrtWood County HospitalRBC Auto (Bld) [#/Vol]on 31-59-1832HUH (Bld) [#/Vol]3.87 10 6/uLLow4.20-5.40[facility] Townshiperum or plasma albumin/globulin mass ratioon 27-69-5240Vcknjto/Globulin [Mass ratio]1.1 {ratio} [facility] Townshiperum or plasma anion gap determinationon 08-87-7180Tqrpp gap [Moles/Vol]9.0 mmol/LFMarymount Hospital Estimated glomerular filtration rate (GFR) non- Americanon 08-01-2024 GFR/1.73 sq M.predicted among non-blacks MDRD (S/P/Bld) [Vol rate/Area]47 mL/min/{1.73_m2}Low>=60 mL/min/1.73m 2FMarymount Hospital Laboratory - Chemistry and Chemistry - challengeon 58-39-7109Cpsndev [Mass/Vol] 9.3 mg/dL8.5-10.1FMarymount HospitalChloride [Moles/Vol]104 mmol/L 98-107[facility] HospitalCO2 [Moles/Vol]27.8 mmol/L21.0-32.0 [facility] HospitalCreatinine [Mass/Vol]1.12 mg/dLHigh0.55-1.02 [facility] HospitalGFR/1.73 sq M.predicted MDRD (S/P/Bld) [Vol rate/Area]57 mL/min/{1.73_m2}Low>=60 mL/min/1.73m [address] [place], [place] [address]Glucose [Mass/Vol]108 mg/lUKhcx31-980UwtuayhqhWood County Hospital Natriuretic peptide B (Bld) [Mass/Vol]4619.0 pg/mLCritically high<=1800.0 [facility] HospitalComment on above:RESULTS CALLED TO TEVIN ELLIS Potassium [Moles/Vol]4.2 mmol/L3.5-5.1FMercy Hospitalodium [Moles/Vol]142 mmol/F488-265RfklwoqplWood County HospitalUrea nitrogen [Mass/Vol]16.0 mg/dL7.0-18.0[facility] HospitalUrea nitrogen/Creatinine [Mass ratio]14.3 mg/mgKettering Health Washington Townshiperum or plasma anion gap determinationon 81-64-1345Ycuss gap [Moles/Vol]14.4 mmol/L [facility] HospitalBasophils Auto (Bld) [#/Vol]on 07-28-2024 Basophils (Bld) [#/Vol]Automated basophil count0.0-0.1FMarymount HospitalBasophils (Bld) [#/Vol]0.0 10 3/uL0.0-0.1FMarymount HospitalBasophils/100 WBC Auto (Bld)on 32-09-4663Poqobhkip/100 WBC (Bld)Automated basophil %0.2-2.0[facility] HospitalBasophils/100 WBC (Bld)0.4 % 0.2-2.0[facility] HospitalEosinophils/100 WBC Auto (Bld)on 64-16-0962Vhjyjfunxlt/100 WBC (Bld)Automated eosinophil %0.9-7.0[facility] HospitalEosinophils/100 WBC (Bld)1.0 %0.9-7.0[facility] HospitalErythrocyte distribution width Auto (RBC) [Ratio]on 07-28-2024 Erythrocyte distribution width (RBC) [Ratio]Erythrocyte distribution width [Ratio] by Automated count11.0-15.0[facility] HospitalErythrocyte distribution width (RBC) [Ratio]12.5 %11.0-15.0[facility] Estimated glomerular filtration rate (GFR) non- Americanon 07-28-2024 GFR/1.73 sq M.predicted among non-blacks MDRD (S/P/Bld) [Vol rate/Area]Estimated glomerular filtration rate (GFR) non- AmericanLow>=60 mL/min/1.73m 2 [facility] HospitalGFR/1.73 sq M.predicted among non-blacks MDRD (S/P/Bld) [Vol rate/Area]51 mL/min/{1.73_m2}Low>=60 mL/min/1.73m 2FMarymount HospitalHematocrit Auto (Bld) [Volume fraction]on 07-28-2024 Hematocrit (Bld) [Volume fraction]Hematocrit [Volume Fraction] of Blood by Automated jloleKny47.0-48.0[facility] HospitalHematocrit (Bld) [Volume fraction]31.0 %Low36.0-48.0[facility] HospitalHemoglobin [Mass/volume] in Bloodon 62-52-4853Rudkwwtpxs (Bld) [Mass/Vol]Hemoglobin [Mass/volume] in XdarnIdo31.0-16.0[facility] HospitalHemoglobin (Bld) [Mass/Vol]9.9 g/dLLow12.0-16.0[facility] HospitalLaboratory - Chemistry and Chemistry - challengeon 67-51-2131Yefkvxs [Mass/Vol]9.0 mg/dL 8.5-10.1FMarymount HospitalChloride [Moles/Vol]110 mmol/LHigh 98-107[facility] HospitalCO2 [Moles/Vol]26.0 mmol/L21.0-32.0 [facility] HospitalCreatinine [Mass/Vol]1.05 mg/dLHigh0.55-1.02 [facility] HospitalGFR/1.73 sq M.predicted MDRD (S/P/Bld) [Vol rate/Area]mL/min/{1.73_m2}>=60 mL/min/1.73m 2FMarymount Hospital Glucose [Mass/Vol]112 mg/kOXvvu43-231JvyjhhbmrWood County HospitalPotassium [Moles/Vol]5.1 mmol/L3.5-5.1FMercy Hospitalodium [Moles/Vol] 144 mmol/T540-085JpyevchozWood County HospitalUrea nitrogen [Mass/Vol]24.0 mg/dLHigh7.0-18.0[facility] HospitalUrea nitrogen/Creatinine [Mass ratio]22.9 mg/mgWood County HospitalLaboratory - Hematology and Cell countson 25-14-8455Hpzencxf granulocytes/100 WBC (Bld)0.8 %High0.0-0.5 [facility] HospitalLeukocytes [#/volume] corrected for nucleated erythrocytes in Blood by Automated counon 86-83-5495HTB corrected for nucl RBC Auto (Bld) [#/Vol]Leukocytes [#/volume] corrected for nucleated erythrocytes in Blood by Automated coun4.0-11.0[facility] HospitalWBC corrected for nucl RBC Auto (Bld) [#/Vol]7.4 10 3/uL4.0-11.0[facility] HospitalLymphocytes Auto (Bld) [#/Vol]on 13-49-7969Xbyotrdmmwq (Bld) [#/Vol] Lymphocytes [#/volume] in Blood by Automated count1.2-3.8[facility] HospitalLymphocytes (Bld) [#/Vol]1.9 10 3/uL1.2-3.8[facility] HospitalLymphocytes/100 WBC Auto (Bld)on 34-13-9561Elwtaltaxry/100 WBC (Bld)Lymphocytes/100 leukocytes in Blood by Automated count20.5-60.0[facility] HospitalLymphocytes/100 WBC (Bld)25.3 %20.5-60.0[facility] CenterH Auto (RBC) [Entitic mass]on 66-24-1231BCD (RBC) [Entitic mass]MCH [Entitic mass] by Automated count26.7-34.0[facility] (RBC) [Entitic mass]31.0 pg26.7-34.0[facility] CenterHC Auto (RBC) [Mass/Vol]on 01-03-4813WKYT (RBC) [Mass/Vol]MCHC [Mass/volume] by Automated count29.9-35.2FMarymount HospitalMCHC (RBC) [Mass/Vol]31.9 g/dL29.9-35.2FMarymount HospitalMCV Auto (RBC) [Entitic vol]on 87-43-6319UID (RBC) [Entitic vol]MCV [Entitic volume] by Automated count81.0-99.0[facility] HospitalMCV (RBC) [Entitic vol] 97.2 fL81.0-99.0[facility] HospitalMonocytes Auto (Bld) [#/Vol]on 17-81-8711Hchwqtwwx (Bld) [#/Vol]Automated blood monocyte count0.3-0.8[facility] HospitalMonocytes (Bld) [#/Vol]0.4 10 3/uL0.3-0.8[facility] HospitalMonocytes/100 WBC Auto (Bld)on 65-93-7208Mqnufxfoj/100 WBC (Bld)Automated monocyte %1.7-12.0[facility] Monocytes/100 WBC (Bld)5.6 %1.7-12.0[facility] HospitalNeutrophils Auto (Bld) [#/Vol]on 11-54-0598Nomdukhysqk (Bld) [#/Vol]Neutrophils [#/volume] in Blood by Automated count1.4-6.5FMarymount HospitalNeutrophils (Bld) [#/Vol]4.9 10 3/uL1.4-6.5FMarymount HospitalNeutrophils/100 WBC Auto (Bld)on 49-46-0422Wdnayihhiqo/100 WBC (Bld)Automated neutrophil % 43.0-75.0[facility] HospitalNeutrophils/100 WBC (Bld)66.9 % 43.0-75.0[facility] HospitalNo Panel Informationon 07-28-2024 Eosinophils # (Auto)0.1 10 3/uL0.0-0.7FMarymount HospitalImmature Granulocyte # (Auto)0.06 10 3/uLHigh0.00-0.03[facility] Platelet mean volume Auto (Bld) [Entitic vol]on 14-40-6416Zhgfyqym mean volume (Bld) [Entitic vol]Platelet mean volume [Entitic volume] in Blood by Automated count9.5-13.5FMarymount HospitalPlatelet mean volume (Bld) [Entitic vol]10.5 fL9.5-13.5FMarymount HospitalPlatelets Auto (Bld) [#/Vol]on 59-10-5499Xwptjkgpj (Bld) [#/Vol]Platelets [#/volume] in Blood by Automated hoahr534-885BipetzeolWood County HospitalPlatelets (Bld) [#/Vol]164 10 3/yM320-444BjvaqrsgyWood County HospitalRBC Auto (Bld) [#/Vol] on 29-35-0836ANX (Bld) [#/Vol]Erythrocytes [#/volume] in Blood by Automated countLow4.20-5.40[facility] HospitalRBC (Bld) [#/Vol]3.19 10 6/uL Low4.20-5.40[facility] Townshiperum or plasma anion gap determinationon 98-68-4561Akmdb gap [Moles/Vol]Serum or plasma anion gap determinationWood County HospitalAnion gap [Moles/Vol]13.1 mmol/L [facility] HospitalErythrocyte distribution width Auto (RBC) [Ratio]on 08-45-5603Jirkwwywxnv distribution width (RBC) [Ratio]Erythrocyte distribution width [Ratio] by Automated count11.0-15.0[facility] HospitalErythrocyte distribution width (RBC) [Ratio]12.6 %11.0-15.0[facility] HospitalEstimated glomerular filtration rate (GFR) non- Americanon 88-72-3063CNB/1.73 sq M.predicted among non-blacks MDRD (S/P/Bld) [Vol rate/Area]Estimated glomerular filtration rate (GFR) non- Low>=60 mL/min/1.73m 2FMarymount HospitalGFR/1.73 sq M.predicted among non-blacks MDRD (S/P/Bld) [Vol rate/Area]35 mL/min/{1.73_m2}Low>=60 mL/min/1.73m 2FMarymount HospitalHematocrit Auto (Bld) [Volume fraction]on 01-12-1252Bdusboluln (Bld) [Volume fraction]Hematocrit [Volume Fraction] of Blood by Automated lsjchZbx01.0-48.0[facility] HospitalHematocrit (Bld) [Volume fraction]29.5 %Low36.0-48.0[facility] HospitalHemoglobin [Mass/volume] in Bloodon 15-25-4020Hyueslenfq (Bld) [Mass/Vol]Hemoglobin [Mass/volume] in TxfnpVla35.0-16.0[facility] HospitalHemoglobin (Bld) [Mass/Vol]9.4 g/dLLow12.0-16.0[facility] HospitalLaboratory - Chemistry and Chemistry - challengeon 07-27-2024 Calcium [Mass/Vol]9.1 mg/dL8.5-10.1FMarymount HospitalChloride [Moles/Vol]110 mmol/JOkbp72-402XtnllwegbWood County HospitalCO2 [Moles/Vol] 29.1 mmol/L21.0-32.0[facility] HospitalCreatinine [Mass/Vol]1.46 mg/dLHigh0.55-1.02[facility] HospitalGFR/1.73 sq M.predicted MDRD (S/P/Bld) [Vol rate/Area]42 mL/min/{1.73_m2}Low>=60 mL/min/1.73m 2FMarymount HospitalGlucose [Mass/Vol]114 mg/sUMaje06-435RktztgcfkWood County HospitalPotassium [Moles/Vol]5.6 mmol/LHigh3.5-5.1FMercy Hospitalodium [Moles/Vol]144 mmol/S273-042QcknmykpqWood County HospitalUrea nitrogen [Mass/Vol]46.0 mg/dLHigh7.0-18.0[facility] HospitalUrea nitrogen/Creatinine [Mass ratio]31.5 mg/mgWood County HospitalLeukocytes [#/volume] corrected for nucleated erythrocytes in Blood by Automated counon 36-75-5469XQV corrected for nucl RBC Auto (Bld) [#/Vol] Leukocytes [#/volume] corrected for nucleated erythrocytes in Blood by Automated coun4.0-11.0[facility] HospitalWBC corrected for nucl RBC Auto (Bld) [#/Vol]6.2 10 3/uL4.0-11.0[facility] Auto (RBC) [Entitic mass]on [id number] (RBC) [Entitic mass]MCH [Entitic mass] by Automated count26.7-34.0[facility] ([facility]) [Entitic mass]30.6 pg26.7-34.0[facility] CenterHC Auto (RBC) [Mass/Vol] on [id number] (RBC) [Mass/Vol]MCHC [Mass/volume] by Automated count29.9-35.2 [facility] Center[facility] (RBC) [Mass/Vol]31.9 g/dL29.9-35.2 [facility] CenterV Auto (RBC) [Entitic vol]on 12-03-6284DWO (RBC) [Entitic vol]MCV [Entitic volume] by Automated count81.0-99.0[facility] CenterV (RBC) [Entitic vol]96.1 fL81.0-99.0[facility] HospitalPlatelet mean volume Auto (Bld) [Entitic vol]on 91-23-1850Viyvzobe mean volume (Bld) [Entitic vol]Platelet mean volume [Entitic volume] in Blood by Automated count9.5-13.5FMarymount HospitalPlatelet mean volume (Bld) [Entitic vol]10.1 fL9.5-13.5FMarymount HospitalPlatelets Auto (Bld) [#/Vol]on 76-05-0876Bpritykzd (Bld) [#/Vol]Platelets [#/volume] in Blood by Automated -199RiduktebpWood County HospitalPlatelets (Bld) [#/Vol]178 10 3/rR956-225QntwnlgygWood County HospitalRBC Auto (Bld) [#/Vol] on 04-55-7307WHX (Bld) [#/Vol]Erythrocytes [#/volume] in Blood by Automated countLow4.20-5.40[facility] HospitalRBC (Bld) [#/Vol]3.07 10 6/uL Low4.20-5.40[facility] Townshiperum or plasma anion gap determinationon 18-01-2720Azycd gap [Moles/Vol]Serum or plasma anion gap determinationWood County HospitalAnion gap [Moles/Vol]10.5 mmol/L [facility] HospitalErythrocyte distribution width Auto (RBC) [Ratio]on 66-78-0325Fujppmloupz distribution width (RBC) [Ratio]Erythrocyte distribution width [Ratio] by Automated count11.0-15.0[facility] HospitalErythrocyte distribution width (RBC) [Ratio]13.0 %11.0-15.0[facility] HospitalEstimated glomerular filtration rate (GFR) non- Americanon 58-66-6468HJY/1.73 sq M.predicted among non-blacks MDRD (S/P/Bld) [Vol rate/Area]Estimated glomerular filtration rate (GFR) non- Low>=60 mL/min/1.73m 2FMarymount HospitalGFR/1.73 sq M.predicted among non-blacks MDRD (S/P/Bld) [Vol rate/Area]15 mL/min/{1.73_m2}Low>=60 mL/min/1.73m 2FMarymount HospitalHematocrit Auto (Bld) [Volume fraction]on 76-67-8422Eokbyehrub (Bld) [Volume fraction]Hematocrit [Volume Fraction] of Blood by Automated xrqgwPlo01.0-48.0[facility] HospitalHematocrit (Bld) [Volume fraction]29.7 %Low36.0-48.0[facility] HospitalHemoglobin [Mass/volume] in Bloodon 76-13-6821Synmkamsuk (Bld) [Mass/Vol]Hemoglobin [Mass/volume] in MskaiNbh11.0-16.0[facility] HospitalHemoglobin (Bld) [Mass/Vol]9.4 g/dLLow12.0-16.0[facility] HospitalLaboratory - Chemistry and Chemistry - challengeon 07-26-2024 Potassium [Moles/Vol]5.3 mmol/LHigh3.5-5.1FMarymount Hospital Calcium [Mass/Vol]8.9 mg/dL8.5-10.1FMarymount HospitalChloride [Moles/Vol]106 mmol/O48-978BvhtdoblvWood County HospitalCO2 [Moles/Vol]27.2 mmol/L21.0-32.0[facility] HospitalCreatinine [Mass/Vol]3.07 mg/dL High0.55-1.02[facility] HospitalGFR/1.73 sq M.predicted MDRD (S/P/Bld) [Vol rate/Area]18 mL/min/{1.73_m2}Low>=60 mL/min/1.73m 2FMarymount HospitalGlucose [Mass/Vol]113 mg/yKEhpq65-766ZfvlazgbhKettering Health Washington Townshipodium [Moles/Vol]141 mmol/B388-941MddcjzisrWood County HospitalUrea nitrogen [Mass/Vol]78.0 mg/dLCritically high7.0-18.0[facility] HospitalComment on above:RESULTS CALLED TO LAURE NELSON RN @BY Maria Victoria Pearl 0617Urea nitrogen/Creatinine [Mass ratio]25.4 mg/mg [facility] HospitalLeukocytes [#/volume] corrected for nucleated erythrocytes in Blood by Automated counon 16-88-0637VNV corrected for nucl RBC Auto (Bld) [#/Vol]Leukocytes [#/volume] corrected for nucleated erythrocytes in Blood by Automated coun4.0-11.0[facility] HospitalWBC corrected for nucl RBC Auto (Bld) [#/Vol]7.2 10 3/uL4.0-11.0[facility] Auto (RBC) [Entitic mass]on 80-35-9972WZM (RBC) [Entitic mass]MCH [Entitic mass] by Automated count26.7-34.0[facility] (RBC) [Entitic mass]31.0 pg26.7-34.0[facility] CenterHC Auto (RBC) [Mass/Vol]on 94-61-2617VNNJ (RBC) [Mass/Vol]MCHC [Mass/volume] by Automated count29.9-35.2FMercy Health Kings Mills HospitalHC (RBC) [Mass/Vol] 31.6 g/dL29.9-35.2FMarymount HospitalMCV Auto (RBC) [Entitic vol] on 69-11-8976YPZ (RBC) [Entitic vol]MCV [Entitic volume] by Automated count 81.0-99.0[facility] HospitalMCV (RBC) [Entitic vol]98.0 fL 81.0-99.0[facility] HospitalPlatelet mean volume Auto (Bld) [Entitic vol]on 83-92-7952Ramnppsr mean volume (Bld) [Entitic vol]Platelet mean volume [Entitic volume] in Blood by Automated count9.5-13.5FMarymount HospitalPlatelet mean volume (Bld) [Entitic vol]10.0 fL9.5-13.5FMarymount HospitalPlatelets Auto (Bld) [#/Vol]on 54-77-1237Pypehqkhw (Bld) [#/Vol]Platelets [#/volume] in Blood by Automated lujbm614-476FhexyzqsyWood County HospitalPlatelets (Bld) [#/Vol]185 10 3/nX533-842ZywyyktesWood County HospitalRBC Auto (Bld) [#/Vol]on 97-08-4271IAT (Bld) [#/Vol]Erythrocytes [#/volume] in Blood by Automated countLow4.20-5.40[facility] HospitalRBC (Bld) [#/Vol]3.03 10 6/uLLow4.20-5.40[facility] Serum or plasma anion gap determinationon 42-01-0424Qjwls gap [Moles/Vol]Serum or plasma anion gap determinationWood County HospitalAnion gap [Moles/Vol]13.6 mmol/LFMarymount HospitalBasophils Auto (Bld) [#/Vol]on 43-56-3470Tdzjegwri (Bld) [#/Vol]Automated basophil count0.0-0.1 [facility] HospitalBasophils (Bld) [#/Vol]0.0 10 3/uL0.0-0.1 [facility] HospitalBasophils/100 WBC Auto (Bld)on 07-25-2024 Basophils/100 WBC (Bld)Automated basophil %0.2-2.0[facility] HospitalBasophils/100 WBC (Bld)0.4 %0.2-2.0[facility] Eosinophils/100 WBC Auto (Bld)on 15-05-7516Zzybdtzdmmy/100 WBC (Bld)Automated eosinophil %0.9-7.0[facility] HospitalEosinophils/100 WBC (Bld)3.4 %0.9-7.0[facility] HospitalErythrocyte distribution width Auto (RBC) [Ratio]on 03-43-8151Opazwoakwcq distribution width (RBC) [Ratio] Erythrocyte distribution width [Ratio] by Automated count11.0-15.0[facility] HospitalErythrocyte distribution width (RBC) [Ratio]12.9 % 11.0-15.0[facility] HospitalEstimated glomerular filtration rate (GFR) non- Americanon 79-79-2040FXR/1.73 sq M.predicted among non-blacks MDRD (S/P/Bld) [Vol rate/Area]Estimated glomerular filtration rate (GFR) non- AmericanLow>=60 mL/min/1.73m 2FMarymount HospitalGFR/1.73 sq M.predicted among non-blacks MDRD (S/P/Bld) [Vol rate/Area]11 mL/min/{1.73_m2}Low>=60 mL/min/1.[address]m [address] [place], [place] [address]Globulin Calc (S) [Mass/Vol]on 75-12-6239Uhyjefqf (S) [Mass/Vol]Serum globulin measurement by calculation (mass/volume)[facility] Globulin (S) [Mass/Vol]3.3 g/dLWood County HospitalHematocrit Auto (Bld) [Volume fraction]on 26-56-0683Hvpidrvnab (Bld) [Volume fraction]Hematocrit [Volume Fraction] of Blood by Automated fiocxEir18.0-48.0[facility] HospitalHematocrit (Bld) [Volume fraction]32.0 %Low36.0-48.0[facility] HospitalHemoglobin [Mass/volume] in Bloodon 33-08-1602Kdopiwyhlo (Bld) [Mass/Vol]Hemoglobin [Mass/volume] in TzipzZqd73.0-16.0[facility] HospitalHemoglobin (Bld) [Mass/Vol]10.3 g/dLLow12.0-16.0[facility] HospitalLaboratory - Chemistry and Chemistry - challengeon 07-25-2024 Potassium [Moles/Vol]5.8 mmol/LHigh3.5-5.1FMarymount Hospital Albumin [Mass/Vol]3.5 g/dL3.4-5.0[facility] HospitalALP [Catalytic activity/Vol]81 U/H50-673ZymmmtztyWood County HospitalALT [Catalytic activity/Vol]15 U/I55-96LzlyycckeWood County HospitalAST [Catalytic activity/Vol]18 U/C78-86PagszzttbWood County HospitalBilirubin [Mass/Vol]0.3 mg/dL0.2-1.0[facility] HospitalCalcium [Mass/Vol]9.3 mg/dL 8.5-10.1FMarymount HospitalChloride [Moles/Vol]100 mmol/L98-107 [facility] HospitalCO2 [Moles/Vol]28.3 mmol/L21.0-32.0[facility] HospitalCreatinine [Mass/Vol]3.88 mg/dLHigh0.55-1.02[facility] HospitalGFR/1.73 sq M.predicted MDRD (S/P/Bld) [Vol rate/Area]14 mL/min/{1.73_m2}Low>=60 mL/min/1.73m 2FMarymount HospitalGlucose [Mass/Vol]112 mg/qULqyl69-176FhskjpwgwWood County HospitalProtein [Mass/Vol] 6.8 g/dL6.4-8.2FMercy Hospitalodium [Moles/Vol]136 mmol/L 136-145[facility] HospitalUrea nitrogen [Mass/Vol]83.0 mg/dL Critically high7.0-18.0[facility] HospitalComment on above:RESULTS CALLED TO Melissa Gupta RNUrea nitrogen/Creatinine [Mass ratio]21.4 mg/mg [facility] HospitalTS Qn1.217 m[IU]/L0.358-3.740[facility] HospitalLaboratory - Hematology and Cell countson 07-25-2024 Immature granulocytes/100 WBC (Bld)0.4 %0.0-0.5FMarymount Hospital Leukocytes [#/volume] corrected for nucleated erythrocytes in Blood by Automated counon 09-14-9218XUY corrected for nucl RBC Auto (Bld) [#/Vol]Leukocytes [#/volume] corrected for nucleated erythrocytes in Blood by Automated coun 4.0-11.0[facility] HospitalWBC corrected for nucl RBC Auto (Bld) [#/Vol]10.9 10 3/uL4.0-11.0[facility] HospitalLymphocytes Auto (Bld) [#/Vol]on 37-13-0609Ufedjukwfjl (Bld) [#/Vol]Lymphocytes [#/volume] in Blood by Automated count1.2-3.8[facility] HospitalLymphocytes (Bld) [#/Vol]2.5 10 3/uL1.2-3.8[facility] HospitalLymphocytes/100 WBC Auto (Bld)on 52-89-5441Xxhpmppqpia/100 WBC (Bld)Lymphocytes/100 leukocytes in Blood by Automated count20.5-60.0[facility] Lymphocytes/100 WBC (Bld)22.4 %20.5-60.0[facility] CenterH Auto (RBC) [Entitic mass]on 46-41-0158DJG (RBC) [Entitic mass]MCH [Entitic mass] by Automated count26.7-34.0[facility] CenterH (RBC) [Entitic mass]31.2 pg26.7-34.0[facility] HospitalMCHC Auto (RBC) [Mass/Vol] on 24-65-6376VTOH (RBC) [Mass/Vol]MCHC [Mass/volume] by Automated count29.9-35.2 [facility] HospitalMCHC (RBC) [Mass/Vol]32.2 g/dL29.9-35.2 [facility] HospitalMCV Auto (RBC) [Entitic vol]on 77-39-3520BFK (RBC) [Entitic vol]MCV [Entitic volume] by Automated count81.0-99.0[facility] HospitalMCV (RBC) [Entitic vol]97.0 fL81.0-99.0[facility] HospitalMonocytes Auto (Bld) [#/Vol]on 45-20-9772Aymuekact (Bld) [#/Vol] Automated blood monocyte count0.3-0.8[facility] HospitalMonocytes (Bld) [#/Vol]0.7 10 3/uL0.3-0.8[facility] HospitalMonocytes/100 WBC Auto (Bld)on 27-29-8185Kdidfluxj/100 WBC (Bld)Automated monocyte %1.7-12.0 [facility] HospitalMonocytes/100 WBC (Bld)6.3 %1.7-12.0[facility] HospitalNeutrophils Auto (Bld) [#/Vol]on 52-86-9317Ltaxkraybhm (Bld) [#/Vol]Neutrophils [#/volume] in Blood by Automated countHigh1.4-6.5 [facility] HospitalNeutrophils (Bld) [#/Vol]7.3 10 3/uLHigh1.4-6.5 [facility] HospitalNeutrophils/100 WBC Auto (Bld)on 07-25-2024 Neutrophils/100 WBC (Bld)Automated neutrophil %43.0-75.0[facility] HospitalNeutrophils/100 WBC (Bld)67.1 %43.0-75.0[facility] HospitalNo Panel Informationon 91-31-8661Igpxsloz I High Sensitivity9.5 pg/mL 4.0-51.3FMarymount HospitalComment on above:CUT-OFF POINTS HAVE BEEN ESTABLISHED [...] DIAGNOSTIC AND CLINICAL INFORMATION.Eosinophils # (Auto)0.4 10 3/uL0.0-0.7FMarymount HospitalImmature Granulocyte # (Auto)0.04 10 3/uLHigh0.00-0.03[facility] HospitalPlatelet mean volume Auto (Bld) [Entitic vol]on 97-96-6274Idrzdput mean volume (Bld) [Entitic vol]Platelet mean volume [Entitic volume] in Blood by Automated count9.5-13.5 [facility] HospitalPlatelet mean volume (Bld) [Entitic vol]10.5 fL 9.5-13.5FMarymount HospitalPlatelets Auto (Bld) [#/Vol]on 62-65-2086Bwriggmqr (Bld) [#/Vol]Platelets [#/volume] in Blood by Automated -497LjegjvkuhWood County HospitalPlatelets (Bld) [#/Vol]233 10 3/uL 150-450[facility] HospitalRBC Auto (Bld) [#/Vol]on 30-67-9450ILV (Bld) [#/Vol]Erythrocytes [#/volume] in Blood by Automated countLow4.20-5.40 [facility] HospitalRBC (Bld) [#/Vol]3.30 10 6/uLLow4.20-5.40 [facility] Townshiperum or plasma albumin/globulin mass ratioon 16-73-7961Mftlhcd/Globulin [Mass ratio]Serum or plasma albumin/globulin mass ratioWood County HospitalAlbumin/Globulin [Mass ratio]1.1 {ratio} [facility] Townshiperum or plasma anion gap determinationon 82-04-5882Lkccv gap [Moles/Vol]Serum or plasma anion gap determinationWood County HospitalAnion gap [Moles/Vol]13.9 mmol/LFMarymount HospitalX-ray reportOrdered By: Wale Wilburn on 81-19-3842Tnsus report [facility] [address] [place] [address] XRay Report Signed Patient: Catherine Tang MR# : [id number] : 1945 Acct:[id number] Age/Sex: 79 / F ADM Date: 5 [place]: [facility] [place] [facility]: [facility]: Paty Booth MD Copies to: [...] Wale Wilburn M.D.06/27/2024 7:49 PM Dictation Location: [place] [address] Transcribed By: [facility] 06/27/241948 Dictated By: Wale Wilburn DO 06/27/241947 Signed By: 06/27/241948 [facility] HospitalXR wrist LT min 3V*on 43-16-4021BM wrist LT min 3V*[facility] [address] [place] [address] XRay Report Signed Patient: Catherine Tang MR#: [id number] : 1945 Acct:[id number] Age/Sex: 79 / F ADM Date: 06/27/24 Loc: [facility] [place] [facility]: [facility]: Paty Booth MD Copies to: [...] Wale Wilburn M.D.06/27/2024 7:49 PM Dictation Location: [place] [address] Transcribed By: [facility] 06/27/241948 Dictated By: Wale Wilburn DO 06/27/241947 Signed By: 06/27/241948[facility] Phys[facility] GroupBasophils Auto (Bld) [#/Vol]on 10-20-4416Nqjlzsloi (Bld) [#/Vol]Automated basophil count0.0-0.1FMarymount HospitalBasophils/100 WBC Auto (Bld)on 25-72-9509Mvrtwaypy/100 WBC (Bld)Automated basophil %0.2-2.0[facility] Eosinophils/100 WBC Auto (Bld)on 25-00-1120Axwikmundnn/100 WBC (Bld)Automated eosinophil %0.9-7.0[facility] HospitalErythrocyte distribution width Auto (RBC) [Ratio]on 73-60-4442Ouhrolzayui distribution width (RBC) [Ratio]Erythrocyte distribution width [Ratio] by Automated count11.0-15.0 [facility] HospitalEstimated glomerular filtration rate (GFR) non- Americanon 55-50-6610NZC/1.73 sq M.predicted among non-blacks MDRD (S/P/Bld) [Vol rate/Area]Estimated glomerular filtration rate (GFR) non- AmericanLow>=60 mL/min/1.73m 2FMarymount HospitalGlobulin Calc (S) [Mass/Vol]on 87-80-8712Koek[place]ki (S) [Mass/Vol]Serum globulin measurement by calculation (mass/volume)[facility] HospitalHematocrit Auto (Bld) [Volume fraction]on 06-05-8125Wxqbkgtmam (Bld) [Volume fraction]Hematocrit [Volume Fraction] of Blood by Automated qwglgXnq67.0-48.0[facility] HospitalHemoglobin [Mass/volume] in Bloodon 09-49-9097Doctcfubjq (Bld) [Mass/Vol]Hemoglobin [Mass/volume] in RuuqxKnf84.0-16.0[facility] HospitalIron binding capacity [Mass/volume] in Serum or Plasmaon 55-32-6896Bqnq binding capacity [Mass/Vol]Iron binding capacity [Mass/volume] in Serum or Cvxpol602.0-450.0[facility] HospitalIron saturation [Mass Fraction] in Serum or Plasmaon 00-81-3912Srnq saturation [Mass fraction] Iron saturation [Mass Fraction] in Serum or PlasmaWood County HospitalLaboratory - Chemistry and Chemistry - challengeon 38-54-6135Ktytbpl [Mass/Vol]3.4 g/dL3.4-5.0[facility] HospitalALP [Catalytic activity/Vol]72 U/Y98-133BitrqvllrWood County HospitalALT [Catalytic activity/Vol]28 U/Q49-44UiixftlkgWood County HospitalAST [Catalytic activity/Vol]24 U/A96-07SplfezyarWood County HospitalBilirubin [Mass/Vol]0.4 mg/dL0.2-1.0[facility] HospitalCalcium [Mass/Vol]8.8 mg/dL 8.5-10.1FMarymount HospitalChloride [Moles/Vol]107 mmol/L98-107 [facility] HospitalCO2 [Moles/Vol]30.8 mmol/L21.0-32.0[facility] HospitalCobalamin (Vitamin B12) [Mass/Vol]1568 pg/mLAbnormal 232-1245[facility] County HospitalComment on above:Performed at: - [facility] [address] [id number] Director: Larry Nicolas PhD, Phone: [phone] [Mass/Vol]1.35 mg/dLHigh0.55-1.02 [facility] HospitalFerritin [Mass/Vol]79.0 ng/mL8.0-252.0[facility] HospitalGFR/1.73 sq M.predicted MDRD (S/P/Bld) [Vol rate/Area]46 mL/min/{1.73_m2}Low>=60 mL/min/1.73m 2FMarymount HospitalGlucose [Mass/Vol]109 mg/wXQsnt56-948NekcqonsiWood County HospitalIron [Mass/Vol] 86.0 ug/dL50.0-170.0[facility] HospitalPotassium [Moles/Vol]4.6 mmol/L3.5-5.1FMarymount HospitalProtein [Mass/Vol]6.6 g/dL6.4-8.2 [facility] Townshipodium [Moles/Vol]145 mmol/I450-850EcmkvcewfWood County HospitalTSH Qn1.743 m[IU]/L0.358-3.740[facility] HospitalUrea nitrogen [Mass/Vol]21.0 mg/dLHigh7.0-18.0[facility] HospitalUrea nitrogen/Creatinine [Mass ratio]15.6 mg/mgWood County HospitalLaboratory - Hematology and Cell countson 11-30-3773Mimxroml granulocytes/100 WBC (Bld)0.3 %0.0-0.5FMarymount Hospital Leukocytes [#/volume] corrected for nucleated erythrocytes in Blood by Automated counon 42-68-6692BPG corrected for nucl RBC Auto (Bld) [#/Vol]Leukocytes [#/volume] corrected for nucleated erythrocytes in Blood by Automated coun 4.0-11.0[facility] HospitalLymphocytes Auto (Bld) [#/Vol]on 15-36-9095Xadnwtnkqdm (Bld) [#/Vol]Lymphocytes [#/volume] in Blood by Automated count1.2-3.8[facility] HospitalLymphocytes/100 WBC Auto (Bld)on 44-53-2024Crejmcfycbc/100 WBC (Bld)Lymphocytes/100 leukocytes in Blood by Automated count20.5-60.0[facility] HospitalMCH Auto (RBC) [Entitic mass]on 33-60-8625UAC (RBC) [Entitic mass]MCH [Entitic mass] by Automated count 26.7-34.0[facility] HospitalMCHC Auto (RBC) [Mass/Vol]on 25-94-3167BZEG (RBC) [Mass/Vol]MCHC [Mass/volume] by Automated count29.9-35.2 [facility] HospitalMCV Auto (RBC) [Entitic vol]on 25-58-9046FXO (RBC) [Entitic vol]MCV [Entitic volume] by Automated count81.0-99.0[facility] HospitalMonocytes Auto (Bld) [#/Vol]on 95-31-9330Jhdkqxydm (Bld) [#/Vol]Automated blood monocyte count0.3-0.8[facility] Monocytes/100 WBC Auto (Bld)on 64-09-7491Kpehszoqg/100 WBC (Bld)Automated monocyte %1.7-12.0[facility] HospitalNeutrophils Auto (Bld) [#/Vol]on 81-74-1817Pbujjvwoetg (Bld) [#/Vol]Neutrophils [#/volume] in Blood by Automated count1.4-6.5FMarymount HospitalNeutrophils/100 WBC Auto (Bld)on 79-59-1765Lgmmbqcpjtl/100 WBC (Bld)Automated neutrophil %43.0-75.0 [facility] HospitalNo Panel Informationon 11-34-726572326860-Ujxdmxi Vitamin D Total57.6 ng/mLWood County HospitalComment on above:<20 ng/mL Vit D viwhcyaih64-<30 ng/mL Vit D mvjjfsgbzdno51-011 ng/mL Vit D sufficient>100 ng/mL Potential ToxicityEosinophils # (Auto)0.3 10 3/uL0.0-0.7 [facility] HospitalImmature Granulocyte # (Auto)0.02 10 3/uL 0.00-0.03[facility] HospitalPlatelet mean volume Auto (Bld) [Entitic vol]on 97-13-6745Pdknpwix mean volume (Bld) [Entitic vol]Platelet mean volume [Entitic volume] in Blood by Automated count9.5-13.5FMarymount HospitalPlatelets Auto (Bld) [#/Vol]on 95-46-0445Daibnbwnh (Bld) [#/Vol] Platelets [#/volume] in Blood by Automated pahlf590-229QasztgbvpWood County HospitalRBC Auto (Bld) [#/Vol]on 35-66-4723VJP (Bld) [#/Vol]Erythrocytes [#/volume] in Blood by Automated countLow4.20-5.40[facility] Townshiperum or plasma albumin/globulin mass ratioon 87-20-0990Iwbttaa/Globulin [Mass ratio]Serum or plasma albumin/globulin mass ratioKettering Health Washington Townshiperum or plasma anion gap determinationon 64-92-0194Oevbu gap [Moles/Vol]Serum or plasma anion gap determinationWood County HospitalAlbumin [Mass/volume] in Serum or Plasmaon 36-71-9750Skoocbw [Mass/Vol]3.7 g/dL2.9-4.4FMarymount HospitalBasophils Auto (Bld) [#/Vol]on 23-53-7038Ndwfmtlmb (Bld) [#/Vol]0.1 10 3/uL0.0-0.1FMarymount HospitalBasophils/100 WBC Auto (Bld)on 74-99-0258Hypkmxmid/100 WBC (Bld)0.7 % 0.2-2.0[facility] HospitalEosinophils/100 WBC Auto (Bld)on 71-16-8989Tdbgxzqheje/100 WBC (Bld)2.3 %0.9-7.0[facility] Erythrocyte distribution width Auto (RBC) [Ratio]on 91-29-7203Ggmghspvnil distribution width (RBC) [Ratio]13.1 %11.0-15.0[facility] Estimated glomerular filtration rate (GFR) non- Americanon 06-15-2023 GFR/1.73 sq M.predicted among non-blacks MDRD (S/P/Bld) [Vol rate/Area]40 mL/min/{1.73_m2}>=60[facility] HospitalGlobulin Calc (S) [Mass/Vol]on 25-76-0581Ejmkvrxx (S) [Mass/Vol]3.7 g/dLWood County HospitalHematocrit Auto (Bld) [Volume fraction]on 85-23-7675Thnwzeqlpv (Bld) [Volume fraction]39.7 %36.0-48.0[facility] HospitalHemoglobin [Mass/volume] in Bloodon 25-04-7635Hhwztsilep (Bld) [Mass/Vol]12.1 g/dL12.0-16.0 [facility] HospitalIgA [Mass/volume] in Serum or Plasmaon 93-52-1569JdF [Mass/Vol]195 mg/qV79-222UvfcfulijWood County HospitalIgG [Mass/volume] in Serum or Plasmaon 40-07-5749MwK [Mass/Vol]865 mg/gM280-2080 [facility] HospitalIgM [Mass/volume] in Serum or Plasmaon 36-66-7846JeP [Mass/Vol]54 mg/lO14-590NbthrmqfnWood County HospitalIron binding capacity [Mass/volume] in Serum or Plasmaon 38-93-2208Cjls binding capacity [Mass/Vol]330.0 ug/dL250.0-450.0[facility] HospitalIron saturation [Mass Fraction] in Serum or Plasmaon 67-50-1933Dpvo saturation [Mass fraction]29.7 %[facility] HospitalLaboratory - Chemistry and Chemistry - challengeon 25-41-9015IPN [Catalytic activity/Vol]85 U/L46-116 [facility] HospitalALT [Catalytic activity/Vol]17 U/L14-59 [facility] HospitalAST [Catalytic activity/Vol]20 U/L15-37 [facility] HospitalBilirubin [Mass/Vol]0.4 mg/dL0.2-1.0[facility] HospitalCalcium [Mass/Vol]10.0 mg/dL8.5-10.1FMarymount HospitalChloride [Moles/Vol]101 mmol/I23-860BjeapubpcWood County HospitalCO2 [Moles/Vol]29.7 mmol/L21.0-32.0[facility] Creatinine [Mass/Vol]1.29 mg/dL0.55-1.02[facility] Ferritin [Mass/Vol]168.0 ng/mL8.0-252.0[facility] HospitalGFR/1.73 sq M.predicted MDRD (S/P/Bld) [Vol rate/Area]48 mL/min/{1.73_m2}>=60[facility] HospitalGlucose [Mass/Vol]174 mg/wE29-474BiyhkkjhtWood County HospitalIron [Mass/Vol]98.0 ug/dL50.0-170.0[facility] HospitalLDH [Catalytic activity/Vol]202 U/H68-282RovvbtrkqWood County Hospital Potassium [Moles/Vol]4.8 mmol/L3.5-5.1FMarymount HospitalProtein [Mass/Vol]7.4 g/dL6.4-8.2FMercy Hospitalodium [Moles/Vol]139 mmol/Y518-620JupvybiczWood County HospitalUrea nitrogen [Mass/Vol]27.0 mg/dL 7.0-18.0[facility] HospitalUrea nitrogen/Creatinine [Mass ratio] 20.9 mg/mgWood County HospitalLaboratory - Hematology and Cell countson 83-15-8556RZA (Bld) [Velocity]52 mm/h<=30[facility] HospitalImmature granulocytes/100 WBC (Bld)0.4 %0.0-0.5FMarymount HospitalLeukocytes [#/volume] corrected for nucleated erythrocytes in Blood by Automated counon 33-28-7471QSQ corrected for nucl RBC Auto (Bld) [#/Vol]6.9 10 3/uL4.0-11.0[facility] HospitalLymphocytes Auto (Bld) [#/Vol]on 19-35-0860Obncfancand (Bld) [#/Vol]1.7 10 3/uL1.2-3.8[facility] HospitalLymphocytes/100 WBC Auto (Bld)on 84-11-4187Qsgtodppink/100 WBC (Bld)24.7 % 20.5-60.0[facility] HospitalMCH Auto (RBC) [Entitic mass]on 50-66-3928SQX (RBC) [Entitic mass]29.6 pg26.7-34.0[facility] HospitalMCHC Auto (RBC) [Mass/Vol]on 59-49-0281MCBF (RBC) [Mass/Vol]30.5 g/dL 29.9-35.2FMarymount HospitalMCV Auto (RBC) [Entitic vol]on 46-59-1909FQJ (RBC) [Entitic vol]97.1 fL81.0-99.0[facility] HospitalMonocytes Auto (Bld) [#/Vol]on 13-43-9439Dtfjfpluk (Bld) [#/Vol]0.4 10 3/uL0.3-0.8[facility] HospitalMonocytes/100 WBC Auto (Bld)on 63-32-3573Uwrxucaey/100 WBC (Bld)6.0 %1.7-12.0[facility] Neutrophils Auto (Bld) [#/Vol]on 92-93-8005Cuioyxnimmq (Bld) [#/Vol]4.5 10 3/uL 1.4-6.5FMarymount HospitalNeutrophils/100 WBC Auto (Bld)on 67-39-4963Ierkgfubkqr/100 WBC (Bld)65.9 %43.0-75.0[facility] HospitalNo Panel Informationon 54-84-7750X-Reactive Protein, Quantitative<0.50 mg/dL<=0.50[facility] HospitalEosinophils # (Auto)0.2 10 3/uL 0.0-0.7FMarymount HospitalImmature Granulocyte # (Auto)0.03 10 3/uL0.00-0.03[facility] HospitalProtein Electrophoresis M-SpikeNot Observed g/dLNot ObservedWood County HospitalProtein Electrophoresis NoteComment.[facility] HospitalComment on above: Protein electrophoresis scan will follow via computer,mail, or infectious disease technician delivery.Performed at: [facility] [id number] Director: Larry Nicolas PhD, Phone: [phone] mean volume Auto (Bld) [Entitic vol]on 89-63-6219Maicbfbz mean volume (Bld) [Entitic vol]10.8 fL9.5-13.5FMarymount HospitalPlatelets Auto (Bld) [#/Vol] on 67-44-0186Mquedwdyt (Bld) [#/Vol]259 10 3/tK617-994DcmqgpqqdWood County HospitalProtein [Mass/volume] in Serum or Plasmaon 75-34-6004Aqozgwd [Mass/Vol] 6.9 g/dL6.0-8.5FMarymount HospitalRBC Auto (Bld) [#/Vol]on 49-41-1753EOG (Bld) [#/Vol]4.09 10 6/uL4.20-5.40[facility] HospitalReticulocytes/100 RBC Auto (Bld)on 30-93-8866Molgkvkwwmbyp/100 RBC (Bld) 1.56 %0.60-3.10[facility] Townshiperum globulin measurement (mass/volume)on 93-36-0408Cauriezo (S) [Mass/Vol]3.2 g/dL2.2-3.9[facility] Townshiperum or plasma albumin/globulin mass ratioon 06-15-2023 Albumin/Globulin [Mass ratio]1.0 {ratio}[facility] Albumin/Globulin [Mass ratio]1.2 {ratio}0.7-1.7FMarymount Hospital Serum or plasma alpha 1 globulin measurement by electrophoresis (mass/volume)on 51-35-3350Vkgbd 1 globulin Elph [Mass/Vol]0.3 g/dL0.0-0.4FMercy Hospitalerum or plasma alpha 2 globulin measurement by electrophoresis (mass/volume)on 20-36-2229Vomvs 2 globulin Elph [Mass/Vol]1.0 g/dL0.4-1.0 [facility] Townshiperum or plasma anion gap determinationon 60-95-8665Nggkm gap [Moles/Vol]13.1 mmol/LFMercy Hospitalerum or plasma beta globulin measurement by electrophoresis (mass/volume)on 23-61-2505Eucq globulin Elph [Mass/Vol]1.2 g/dL0.7-1.3FMercy Hospitalerum or plasma gamma globulin measurement by electrophoresis (mass/volume)on 03-76-8394Dxpla globulin Elph [Mass/Vol]0.7 g/dL0.4-1.8[facility] Townshiperum or plasma immunoelectrophoresis interpretationon 16-12-7996Kcyiueuujfiwzc IEP [Interp]Comment.[facility] Comment on above:No monoclonality detected.Basophils Auto (Bld) [#/Vol]on 91-01-1456Xpkknvoeo (Bld) [#/Vol]0.2 10 3/uL0.0-0.1FMarymount HospitalBasophils/100 WBC Auto (Bld)on 70-70-8081Setnkxyxd/100 WBC (Bld)0.7 % 0.2-2.0[facility] HospitalEosinophils/100 WBC Auto (Bld)on 16-49-5984Ixwudhrhubu/100 WBC (Bld)0.5 %0.9-7.0[facility] Erythrocyte distribution width Auto (RBC) [Ratio]on 53-71-1593Guksgdydwzr distribution width (RBC) [Ratio]12.7 %11.0-15.0[facility] Estimated glomerular filtration rate (GFR) non- Americanon 05-29-2023 GFR/1.73 sq M.predicted among non-blacks MDRD (S/P/Bld) [Vol rate/Area]58 mL/min/{1.73_m2}>=60[facility] HospitalGlobulin Calc (S) [Mass/Vol]on 03-19-9548Gnlibodw (S) [Mass/Vol]4.3 g/dLWood County HospitalHematocrit Auto (Bld) [Volume fraction]on 60-16-8602Gxhomszkru (Bld) [Volume fraction]31.1 %36.0-48.0[facility] HospitalHemoglobin [Mass/volume] in Bloodon 39-62-2862Fkkgkdpoea (Bld) [Mass/Vol]9.9 g/dL12.0-16.0 [facility] HospitalLaboratory - Chemistry and Chemistry - challengeon 85-24-5603Ntxubet [Mass/Vol]2.3 g/dL3.4-5.0[facility] HospitalALP [Catalytic activity/Vol]94 U/M06-568QoxhcixojWood County HospitalALT [Catalytic activity/Vol]46 U/B72-12ToimnhyhlWood County Hospital AST [Catalytic activity/Vol]37 U/O97-17WzqcxzvenWood County Hospital Bilirubin [Mass/Vol]0.3 mg/dL0.2-1.0[facility] HospitalCalcium [Mass/Vol]9.3 mg/dL8.5-10.1FMarymount HospitalChloride [Moles/Vol] 108 mmol/X66-911VlbohnyanWood County HospitalCO2 [Moles/Vol]26.5 mmol/L 21.0-32.0[facility] HospitalCreatinine [Mass/Vol]0.93 mg/dL 0.55-1.02[facility] HospitalGFR/1.73 sq M.predicted MDRD (S/P/Bld) [Vol rate/Area]mL/min/{1.73_m2}>=60[facility] HospitalGlucose [Mass/Vol]109 mg/zF62-397BjxtwkauyWood County HospitalPotassium [Moles/Vol] 4.1 mmol/L3.5-5.1FMarymount HospitalProtein [Mass/Vol]6.6 g/dL 6.4-8.2FMercy Hospitalodium [Moles/Vol]144 mmol/A899-152 [facility] HospitalUrea nitrogen [Mass/Vol]13.0 mg/dL7.0-18.0 [facility] HospitalUrea nitrogen/Creatinine [Mass ratio]14.0 mg/mg [facility] HospitalLaboratory - Hematology and Cell countson 70-99-4334Uqwajmyg granulocytes/100 WBC (Bld)11.2 %0.0-0.5FMarymount HospitalLeukocytes [#/volume] corrected for nucleated erythrocytes in Blood by Automated counon 82-36-1468NNQ corrected for nucl RBC Auto (Bld) [#/Vol]20.0 10 3/uL4.0-11.0[facility] HospitalLymphocytes Auto (Bld) [#/Vol]on 61-07-9582Amyhfevovbb (Bld) [#/Vol]2.7 10 3/uL1.2-3.8[facility] HospitalLymphocytes/100 WBC Auto (Bld)on 05-29-2023 Lymphocytes/100 WBC (Bld)13.2 %20.5-60.0[facility] CenterH Auto (RBC) [Entitic mass]on 55-45-6638WBI (RBC) [Entitic mass]29.8 pg26.7-34.0 [facility] HospitalMCHC Auto (RBC) [Mass/Vol]on 93-06-8759IHJL (RBC) [Mass/Vol]31.8 g/dL29.9-35.2FMarymount HospitalMCV Auto (RBC) [Entitic vol]on 39-02-8486ISW (RBC) [Entitic vol]93.7 fL81.0-99.0[facility] HospitalMonocytes Auto (Bld) [#/Vol]on 09-70-1132Hkfhcxlus (Bld) [#/Vol]1.1 10 3/uL0.3-0.8[facility] HospitalMonocytes/100 WBC Auto (Bld)on 51-46-0179Vcwsdgyzb/100 WBC (Bld)5.3 %1.7-12.0[facility] HospitalNeutrophils Auto (Bld) [#/Vol]on 25-75-0698Uyfghpcxqhz (Bld) [#/Vol]13.8 10 3/uL1.4-6.5FMarymount HospitalNeutrophils/100 WBC Auto (Bld)on 22-35-8072Kslvupblkyr/100 WBC (Bld)69.1 %43.0-75.0[facility] HospitalNo Panel Informationon 14-53-5567Agzrzcifucx # (Auto)0.1 10 3/uL0.0-0.7FMarymount HospitalImmature Granulocyte # (Auto)2.24 10 3/uL0.00-0.03[facility] HospitalPlatelet mean volume Auto (Bld) [Entitic vol]on 67-74-7434Ssvybupp mean volume (Bld) [Entitic vol]9.8 fL 9.5-13.5FMarymount HospitalPlatelets Auto (Bld) [#/Vol]on 02-24-9694Vnjuvonwr (Bld) [#/Vol]281 10 3/cA272-555SjqnyjrzxWood County HospitalRBC Auto (Bld) [#/Vol]on 23-57-5366WQK (Bld) [#/Vol]3.32 10 6/uL4.20-5.40 [facility] Townshiperum or plasma albumin/globulin mass ratioon 89-98-1757Itvxiil/Globulin [Mass ratio]0.5 {ratio}[facility] Townshiperum or plasma anion gap determinationon 68-05-7229Fdptr gap [Moles/Vol] 13.6 mmol/LFMercy Hospitalerum procalcitonin measurementon 50-11-5551Rmvjfwokbsizg [Mass/Vol]ng/mL0.00-0.50[facility] HospitalBasophils Auto (Bld) [#/Vol]on 30-57-5290Ozdbjmums (Bld) [#/Vol]0.1 10 3/uL0.0-0.1FMarymount HospitalBasophils/100 WBC Auto (Bld)on 27-14-7123Mgxicmyjw/100 WBC (Bld)0.6 %0.2-2.0[facility] Eosinophils/100 WBC Auto (Bld)on 01-76-5842Qocpdmlrhsc/100 WBC (Bld)0.4 %0.9-7.0 [facility] HospitalErythrocyte distribution width Auto (RBC) [Ratio]on 20-65-1825Yahesooxlpb distribution width (RBC) [Ratio]12.7 %11.0-15.0 [facility] HospitalEstimated glomerular filtration rate (GFR) non- Americanon 52-50-8491BTZ/1.73 sq M.predicted among non-blacks MDRD (S/P/Bld) [Vol rate/Area]47 mL/min/{1.73_m2}>=60[facility] HospitalGlobulin Calc (S) [Mass/Vol]on 93-71-3931Stowhwth (S) [Mass/Vol]3.9 g/dL [facility] HospitalHematocrit Auto (Bld) [Volume fraction]on 52-78-1812Vvbyexdjch (Bld) [Volume fraction]29.0 %36.0-48.0[facility] HospitalHemoglobin [Mass/volume] in Bloodon 37-84-5556Yrkvpbkmzj (Bld) [Mass/Vol]9.1 g/dL12.0-16.0[facility] HospitalLaboratory - Chemistry and Chemistry - challengeon 37-79-7929Kplmkuu [Mass/Vol]2.0 g/dL 3.4-5.0[facility] HospitalALP [Catalytic activity/Vol]93 U/L46-116 [facility] HospitalALT [Catalytic activity/Vol]46 U/L14-59 [facility] HospitalAST [Catalytic activity/Vol]49 U/L15-37 [facility] HospitalBilirubin [Mass/Vol]0.3 mg/dL0.2-1.0[facility] HospitalCalcium [Mass/Vol]8.7 mg/dL8.5-10.1FMarymount HospitalChloride [Moles/Vol]111 mmol/H48-260HwrtcbjhbWood County HospitalCO2 [Moles/Vol]25.0 mmol/L21.0-32.0[facility] Creatinine [Mass/Vol]1.12 mg/dL0.55-1.02[facility] GFR/1.73 sq M.predicted MDRD (S/P/Bld) [Vol rate/Area]57 mL/min/{1.73_m2}>=60 [facility] HospitalGlucose [Mass/Vol]103 mg/gZ55-354YzckrdxrlWood County HospitalPotassium [Moles/Vol]4.1 mmol/L3.5-5.1FMarymount HospitalProtein [Mass/Vol]5.9 g/dL6.4-8.2FMarymount Hospital Sodium [Moles/Vol]144 mmol/O574-698LjwtuayupWood County HospitalUrea nitrogen [Mass/Vol]22.0 mg/dL7.0-18.0[facility] HospitalUrea nitrogen/Creatinine [Mass ratio]19.6 mg/mgWood [facility] Hospital Laboratory - Hematology and Cell countson 73-49-9428Rdvblsxd granulocytes/100 WBC (Bld)10.3 %0.0-0.5FMarymount HospitalLeukocytes [#/volume] corrected for nucleated erythrocytes in Blood by Automated counon 26-58-7351RJH corrected for nucl RBC Auto (Bld) [#/Vol]17.1 10 3/uL4.0-11.0[facility] HospitalLymphocytes Auto (Bld) [#/Vol]on 22-78-1589Herepcyjqat (Bld) [#/Vol]2.3 10 3/uL1.2-3.8[facility] HospitalLymphocytes/100 WBC Auto (Bld)on 50-25-8097Qzekxjldhcx/100 WBC (Bld)13.5 %20.5-60.0[facility] CenterH Auto (RBC) [Entitic mass]on 75-05-6105ABG (RBC) [Entitic mass]30.1 pg26.7-34.0[facility] HospitalMCHC Auto (RBC) [Mass/Vol]on 61-13-3035SISO (RBC) [Mass/Vol]31.4 g/dL29.9-35.2FMarymount HospitalMCV Auto (RBC) [Entitic vol]on 52-60-5857QQK (RBC) [Entitic vol] 96.0 fL81.0-99.0[facility] HospitalMonocytes Auto (Bld) [#/Vol]on 42-79-0281Wbckfsdod (Bld) [#/Vol]1.0 10 3/uL0.3-0.8[facility] HospitalMonocytes/100 WBC Auto (Bld)on 52-27-7432Rnesntqrd/100 WBC (Bld)6.0 % 1.7-12.0[facility] HospitalNeutrophils Auto (Bld) [#/Vol]on 76-38-6005Wlhvqnfpcmr (Bld) [#/Vol]11.9 10 3/uL1.4-6.5FMarymount HospitalNeutrophils/100 WBC Auto (Bld)on 32-65-7291Pwljbsjmysh/100 WBC (Bld)69.2 %43.0-75.0[facility] HospitalNo Panel Informationon 05-28-2023 Eosinophils # (Auto)0.1 10 3/uL0.0-0.7FMarymount HospitalImmature Granulocyte # (Auto)1.76 10 3/uL0.00-0.03[facility] Platelet mean volume Auto (Bld) [Entitic vol]on 94-49-6111Gpwmqauh mean volume (Bld) [Entitic vol]9.6 fL9.5-13.5FMarymount HospitalPlatelets Auto (Bld) [#/Vol]on 84-48-8313Omtvpvcfq (Bld) [#/Vol]242 10 3/nT819-604HaaudwbjeWood County HospitalRBC Auto (Bld) [#/Vol]on 20-58-8568MKN (Bld) [#/Vol]3.02 10 6/uL4.20-5.40[facility] Townshiperum or plasma albumin/globulin mass ratioon 20-93-7624Fgxfkiz/Globulin [Mass ratio]0.5 {ratio} [facility] Townshiperum or plasma anion gap determinationon 71-75-7149Eyspv gap [Moles/Vol]12.1 mmol/LFMercy Hospitalerum procalcitonin measurementon 74-70-1853Ncnnmphsrskib [Mass/Vol]0.06 ng/mL 0.00-0.50[facility] HospitalBasophils/100 WBC Manual cnt (Bld)on 16-47-2486Ervagwzdb/100 WBC (Bld)0.0 %0.2-2.0[facility] Eosinophils/100 WBC Manual cnt (Bld)on 20-52-4000Empofcxxxxh/100 WBC (Bld)0.0 % 0.9-7.0[facility] HospitalErythrocyte distribution width Auto (RBC) [Ratio]on 81-73-1133Jkrrfdxxsdn distribution width (RBC) [Ratio]12.5 % 11.0-15.0[facility] HospitalEstimated glomerular filtration rate (GFR) non- Americanon 19-28-2754JTB/1.73 sq M.predicted among non-blacks MDRD (S/P/Bld) [Vol rate/Area]29 mL/min/{1.73_m2}>=60[facility] HospitalGlobulin Calc (S) [Mass/Vol]on 77-61-3282Tdtkvljg (S) [Mass/Vol]4.6 g/dL [facility] HospitalHematocrit Auto (Bld) [Volume fraction]on 63-35-5598Qlrqiabbeq (Bld) [Volume fraction]29.7 %36.0-48.0[facility] HospitalHemoglobin [Mass/volume] in Bloodon 47-50-7382Vkrdmmujmm (Bld) [Mass/Vol]9.4 g/dL12.0-16.0[facility] HospitalLaboratory - Chemistry and Chemistry - challengeon 80-44-3711Nckfbdo [Moles/Vol]0.9 mmol/L 0.4-2.0[facility] HospitalAlbumin [Mass/Vol]2.3 g/dL3.4-5.0 [facility] HospitalALP [Catalytic activity/Vol]119 U/L46-116 [facility] HospitalALT [Catalytic activity/Vol]43 U/L14-59 [facility] HospitalAST [Catalytic activity/Vol]57 U/L15-37 [facility] HospitalBilirubin [Mass/Vol]0.2 mg/dL0.2-1.0[facility] HospitalCalcium [Mass/Vol]9.1 mg/dL8.5-10.1FMarymount HospitalChloride [Moles/Vol]111 mmol/W48-368BnbqwjuprWood County HospitalCO2 [Moles/Vol]18.8 mmol/L21.0-32.0[facility] Creatinine [Mass/Vol]1.70 mg/dL0.55-1.02[facility] GFR/1.73 sq M.predicted MDRD (S/P/Bld) [Vol rate/Area]35 mL/min/{1.73_m2}>=60 [facility] HospitalGlucose [Mass/Vol]155 mg/pB47-180QwcxxtbaaWood County HospitalPotassium [Moles/Vol]4.8 mmol/L3.5-5.1FMarymount HospitalProtein [Mass/Vol]6.9 g/dL6.4-8.2FMarymount Hospital Sodium [Moles/Vol]143 mmol/H720-273BnyhnkmmxWood County HospitalUrea nitrogen [Mass/Vol]34.0 mg/dL7.0-18.0[facility] HospitalUrea nitrogen/Creatinine [Mass ratio]20.0 mg/mgWood [facility] Hospital Laboratory - Hematology and Cell countson 57-96-8120Rwst form neutrophils/100 WBC (Bld)6.0 %0-5FMarymount HospitalLymphocytes/100 WBC (Bld)12.0 %20.5-60.0[facility] HospitalMonocytes/100 WBC (Bld)4.0 %1.7-12.0 [facility] HospitalLaboratory - Microbiology and Antimicrobial susceptibilityOrdered By: Oumar Gunter on 34-43-3105Ibmaqbut identified Respiratory culture Nom (Sput)[facility] HospitalMicroscopic observation Gram stain Nom (Unsp spec)[facility] Leukocytes [#/volume] corrected for nucleated erythrocytes in Blood by Automated counon 29-97-4185ZXS corrected for nucl RBC Auto (Bld) [#/Vol]26.6 10 3/uL 4.0-11.0[facility] CenterH Auto (RBC) [Entitic mass]on 21-01-3850ENY (RBC) [Entitic mass]30.0 pg26.7-34.0[facility] CenterHC Auto (RBC) [Mass/Vol]on 40-82-6253TWXE (RBC) [Mass/Vol]31.6 g/dL 29.9-35.2FMarymount HospitalMCV Auto (RBC) [Entitic vol]on 31-54-4762IYV (RBC) [Entitic vol]94.9 fL81.0-99.0[facility] HospitalMetamyelocytes/100 WBC Manual cnt (Bld)on 11-06-2533Epjukrwjmlwakq/100 WBC (Bld)2.0 %[facility] HospitalNo Panel Informationon 05-27-2023 Absolute Basophils (Manual)0.00 10 3/uL0.00-0.10[facility] HospitalBand Neutrophils # (Manual)1.6 10 3/uL0.0-0.3FMarymount HospitalEosinophils # (Manual)0.00 10 3/uL0.00-0.70[facility] HospitalLymphocytes # (Manual)3.19 10 3/uL1.20-3.80[facility] HospitalMetamyelocytes # (Manual)0.53[facility] HospitalMonocytes # (Manual)1.06 10 3/uL0.30-0.80[facility] Townshipegmented Neutrophils # (Manual)20.21 10 3/uL1.4-6.5FMarymount Hospital Platelet mean volume Auto (Bld) [Entitic vol]on 97-50-9540Uhglbaxr mean volume (Bld) [Entitic vol]9.8 fL9.5-13.5FMarymount HospitalPlatelets Auto (Bld) [#/Vol]on 64-51-0190Iiuckfzir (Bld) [#/Vol]265 10 3/sT234-502SxwnjfrglWood County HospitalRBC Auto (Bld) [#/Vol]on 65-65-3328NIF (Bld) [#/Vol]3.13 10 6/uL4.20-5.40[facility] Townshipegmented neutrophils/100 WBC Manual cnt (Bld)on 66-65-6138Kspulfdns neutrophils/100 WBC (Bld)76.0 %[facility] Townshiperum or plasma albumin/globulin mass ratioon 05-27-2023 Albumin/Globulin [Mass ratio]0.5 {ratio}[facility] Townshiperum or plasma anion gap determinationon 23-35-5833Gdaod gap [Moles/Vol]18.0 mmol/L [facility] Townshiperum procalcitonin measurementon 05-27-2023 Procalcitonin [Mass/Vol]0.13 ng/mL0.00-0.50[facility] Basophils Auto (Bld) [#/Vol]on 86-70-6991Cmwdjaekp (Bld) [#/Vol]0.1 10 3/uL 0.0-0.1FMarymount HospitalBasophils/100 WBC Auto (Bld)on 91-14-3117Ifejnqdme/100 WBC (Bld)0.3 %0.2-2.0[facility] Eosinophils/100 WBC Auto (Bld)on 67-68-8302Oaqbgbgwlcl/100 WBC (Bld)0.2 %0.9-7.0 [facility] HospitalErythrocyte distribution width Auto (RBC) [Ratio]on 18-83-0678Gveosmlrwyr distribution width (RBC) [Ratio]12.5 %11.0-15.0 [facility] HospitalEstimated glomerular filtration rate (GFR) non- Americanon 56-72-6667JFW/1.73 sq M.predicted among non-blacks MDRD (S/P/Bld) [Vol rate/Area]14 mL/min/{1.73_m2}>=60[facility] HospitalGlobulin Calc (S) [Mass/Vol]on 71-86-6987Heuopgce (S) [Mass/Vol]4.4 g/dL [facility] HospitalHematocrit Auto (Bld) [Volume fraction]on 48-71-4568Kmseuskdug (Bld) [Volume fraction]31.7 %36.0-48.0[facility] HospitalHemoglobin [Mass/volume] in Bloodon 87-87-2241Sfdncpvnxb (Bld) [Mass/Vol]9.7 g/dL12.0-16.0[facility] HospitalLaboratory - Chemistry and Chemistry - challengeon 85-81-6694Zmfxqsy [Mass/Vol]2.3 g/dL 3.4-5.0[facility] HospitalALP [Catalytic activity/Vol]128 U/L 46-116[facility] HospitalALT [Catalytic activity/Vol]19 U/L14-59 [facility] HospitalAST [Catalytic activity/Vol]18 U/L15-37 [facility] HospitalBilirubin [Mass/Vol]0.4 mg/dL0.2-1.0[facility] HospitalCalcium [Mass/Vol]8.2 mg/dL8.5-10.1FMarymount HospitalChloride [Moles/Vol]102 mmol/W00-271OntysknnmWood County HospitalCO2 [Moles/Vol]23.6 mmol/L21.0-32.0[facility] Creatinine [Mass/Vol]3.17 mg/dL0.55-1.02[facility] GFR/1.73 sq M.predicted MDRD (S/P/Bld) [Vol rate/Area]17 mL/min/{1.73_m2}>=60 [facility] HospitalGlucose [Mass/Vol]279 mg/xV79-852RexjuneaxWood County HospitalPotassium [Moles/Vol]4.2 mmol/L3.5-5.1FMarymount HospitalProtein [Mass/Vol]6.7 g/dL6.4-8.2FMarymount Hospital Sodium [Moles/Vol]136 mmol/Q579-897MyedlsjjfWood County HospitalUrea nitrogen [Mass/Vol]40.0 mg/dL7.0-18.0[facility] HospitalUrea nitrogen/Creatinine [Mass ratio]12.6 mg/mgWood County Hospital Laboratory - Hematology and Cell countson 93-01-3315Ehkaoxbr granulocytes/100 WBC (Bld)4.9 %0.0-0.5FMarymount HospitalLeukocytes [#/volume] corrected for nucleated erythrocytes in Blood by Automated counon 73-38-6978IRE corrected for nucl RBC Auto (Bld) [#/Vol]20.7 10 3/uL4.0-11.0[facility] HospitalLymphocytes Auto (Bld) [#/Vol]on 58-72-8570Ojscxljfgtg (Bld) [#/Vol]1.5 10 3/uL1.2-3.8[facility] HospitalLymphocytes/100 WBC Auto (Bld)on 35-40-7233Txlgbcdoplk/100 WBC (Bld)7.2 %20.5-60.0[facility] HospitalMCH Auto (RBC) [Entitic mass]on 33-64-4987NIV (RBC) [Entitic mass]29.8 pg26.7-34.0[facility] HospitalMCHC Auto (RBC) [Mass/Vol] on 86-56-0304SGSH (RBC) [Mass/Vol]30.6 g/dL29.9-35.2FMarymount HospitalMCV Auto (RBC) [Entitic vol]on 51-82-4954BEV (RBC) [Entitic vol]97.5 fL 81.0-99.0[facility] HospitalMonocytes Auto (Bld) [#/Vol]on 94-43-3543Geyysicdn (Bld) [#/Vol]0.5 10 3/uL0.3-0.8[facility] HospitalMonocytes/100 WBC Auto (Bld)on 22-37-5664Mixxpkbkx/100 WBC (Bld)2.2 % 1.7-12.0[facility] HospitalNeutrophils Auto (Bld) [#/Vol]on 04-24-5539Mpyaqorfxyh (Bld) [#/Vol]17.6 10 3/uL1.4-6.5FMarymount HospitalNeutrophils/100 WBC Auto (Bld)on 43-20-5115Venuqbdfraf/100 WBC (Bld)85.2 %43.0-75.0[facility] HospitalNo Panel Informationon 05-26-2023 Eosinophils # (Auto)0.0 10 3/uL0.0-0.7FMarymount HospitalImmature Granulocyte # (Auto)1.01 10 3/uL0.00-0.03[facility] Platelet mean volume Auto (Bld) [Entitic vol]on 47-26-4937Aootmhzx mean volume (Bld) [Entitic vol]10.6 fL9.5-13.5FMarymount HospitalPlatelets Auto (Bld) [#/Vol]on 01-02-0733Kggjmciwf (Bld) [#/Vol]227 10 3/rF870-856 [facility] HospitalRBC Auto (Bld) [#/Vol]on 90-03-4670POG (Bld) [#/Vol]3.25 10 6/uL4.20-5.40[facility] Townshiperum or plasma albumin/globulin mass ratioon 68-51-1839Rvfmynw/Globulin [Mass ratio]0.5 {ratio} [facility] Townshiperum or plasma anion gap determinationon 00-98-4184Scoxt gap [Moles/Vol]14.6 mmol/LFMercy Hospitalerum procalcitonin measurementon 85-99-4724Gkjzhgdyscjth [Mass/Vol]0.61 ng/mL 0.00-0.50[facility] HospitalAutomated urine specific gravity by refractometryon 02-70-7436Vuairsjv gravity Refractometry automated (U) [Rel density]>=1.0301.005-1.025[facility] HospitalBasophils/100 WBC Manual cnt (Bld)on 62-39-1340Fodwfpguj/100 WBC (Bld)0.0 %0.2-2.0[facility] HospitalBilirubin Auto test strip (U) [Mass/Vol]on 05-25-2023 Bilirubin (U) [Mass/Vol]SMALLNEGATIVEWood County HospitalBlood toxic granulation detection by light microscopyon 43-69-4470Ndruo granules LM Ql (Bld)4+[facility] HospitalColor Auto (U)on 29-14-8851Dpama (U)DK. YELLOWYELLOWWood County HospitalEosinophils/100 WBC Manual cnt (Bld)on 65-53-2371Srvzkzdtady/100 WBC (Bld)0.0 %0.9-7.0[facility] HospitalErythrocyte distribution width Auto (RBC) [Ratio]on 05-25-2023 Erythrocyte distribution width (RBC) [Ratio]12.3 %11.0-15.0[facility] HospitalEstimated glomerular filtration rate (GFR) non- Americanon 33-25-3151RDR/1.73 sq M.predicted among non-blacks MDRD (S/P/Bld) [Vol rate/Area]12 mL/min/{1.73_m2}>=60[facility] HospitalGlobulin Calc (S) [Mass/Vol]on 63-74-9507Zlyrtpcc (S) [Mass/Vol]4.9 g/dLWood County HospitalHematocrit Auto (Bld) [Volume fraction]on 69-55-2917Pwvrwkqmba (Bld) [Volume fraction]35.0 %36.0-48.0[facility] Hemoglobin [Mass/volume] in Bloodon 24-13-4537Tnwsvgvejt (Bld) [Mass/Vol]11.1 g/dL12.0-16.0[facility] HospitalKetones Auto test strip (U) [Mass/Vol]on 99-05-2970Jbdmozl (U) [Mass/Vol]TRACE mg/dLNEGATIVEWood County HospitalLaboratory - Chemistry and Chemistry - challengeon 36-05-2126Nkrajve [Mass/Vol]2.8 g/dL3.4-5.0[facility] HospitalALP [Catalytic activity/Vol]131 U/N13-386KrpencwkjWood County HospitalALT [Catalytic activity/Vol]21 U/T12-70LbjdtarwuWood County HospitalAST [Catalytic activity/Vol]21 U/I17-76QvroxdimeWood County HospitalBilirubin [Mass/Vol]0.6 mg/dL0.2-1.0[facility] HospitalCalcium [Mass/Vol]9.2 mg/dL8.5-10.1FMarymount HospitalChloride [Moles/Vol]100 mmol/L 98-107[facility] HospitalCO2 [Moles/Vol]27.4 mmol/L21.0-32.0 [facility] HospitalCreatinine [Mass/Vol]3.70 mg/dL0.55-1.02 [facility] HospitalGFR/1.73 sq M.predicted MDRD (S/P/Bld) [Vol rate/Area]14 mL/min/{1.73_m2}>=60[facility] HospitalGlucose [Mass/Vol]142 mg/fS52-263FitriyogpWood County HospitalLactate [Moles/Vol]1.2 mmol/L0.4-2.0[facility] HospitalPotassium [Moles/Vol]4.1 mmol/L 3.5-5.1FMarymount HospitalProtein [Mass/Vol]7.7 g/dL6.4-8.2 [facility] Townshipodium [Moles/Vol]139 mmol/L325-553RtwgslixqWood County HospitalUrea nitrogen [Mass/Vol]38.0 mg/dL7.0-18.0[facility] HospitalUrea nitrogen/Creatinine [Mass ratio]10.3 mg/mgWood County HospitalLaboratory - Hematology and Cell countson 83-43-7657Wqfa form neutrophils/100 WBC (Bld)15.0 %0-5FMarymount Hospital Lymphocytes/100 WBC (Bld)4.0 %20.5-60.0[facility] Monocytes/100 WBC (Bld)5.0 %1.7-12.0[facility] HospitalLaboratory - Microbiology and Antimicrobial susceptibilityon 91-33-2464MFBA-CoV-2 (COVID- 19) RNA ITZEL+probe Ql (Unsp spec)Not detectedNOT [facility] HospitalLeukocytes [#/volume] corrected for nucleated erythrocytes in Blood by Automated counon 77-21-6865YSF corrected for nucl RBC Auto (Bld) [#/Vol]24.6 10 3/uL4.0-11.0[facility]H Auto (RBC) [Entitic mass]on 95-04-2104LCR (RBC) [Entitic mass]30.3 pg26.7-34.0[facility] CenterHC Auto (RBC) [Mass/Vol]on 78-96-5187OBTE (RBC) [Mass/Vol]31.7 g/dL29.9-35.2FMercy Health Kings Mills HospitalV Auto (RBC) [Entitic vol]on 54-76-1324BKS (RBC) [Entitic vol]95.6 fL81.0-99.0[facility] HospitalNo Panel Informationon 55-11-4036Enihttdfoy (PCR)Not detectedNOT [facility] HospitalBordetella parapertussis DNA (PCR)Not detectedNOT [facility] HospitalBordetella pertussis (PCR)(Misc)Not detectedNOT [facility] Chlamydia pneumoniae DNA (PCR)Not detectedNOT [facility] HospitalCoronavirus Type 229E (PCR)Not detectedNOT [facility] HospitalCoronavirus Type HKU1 (PCR)Not detectedNOT [facility] HospitalCoronavirus Type NL63 (PCR)Not detectedNOT DETECTE [facility] HospitalCoronavirus Type OC43 (PCR)Not detectedNOT [facility] HospitalEnterovirus/Rhinovirus (PCR)Not detected NOT DETECTOhio State Health SystemHuman Metapneumovirus (PCR)Not detectedNOT [facility] HospitalInfluenza A (PCR)Not detectedNOT DETECTOhio State Health SystemInfluenza Type B (RT-PCR)Not detectedNOT [facility] HospitalMycoplasma pneumoniae (PCR) Not detectedNOT DETECTOhio State Health SystemParainfluenza Type 1 (PCR)Not detectedNOT [facility] HospitalParainfluenza Type 2 (PCR)Not detectedNOT DETECTOhio State Health SystemParainfluenza Type 3 (PCR)Not detectedNOT [facility] Parainfluenza Type 4 (PCR)Not detectedNOT [facility] HospitalRespiratory Syncytial Virus (PCR)Not detectedNOT [facility] HospitalUrine Microscopic ReviewNOWood County Hospital Absolute Basophils (Manual)0.00 10 3/uL0.00-0.10[facility] HospitalBand Neutrophils # (Manual)3.7 10 3/uL0.0-0.3FMarymount HospitalEosinophils # (Manual)0.00 10 3/uL0.00-0.70[facility] HospitalLymphocytes # (Manual)0.98 10 3/uL1.20-3.80[facility] HospitalMonocytes # (Manual)1.23 10 3/uL0.30-0.80[facility] Reactive Lymphocytes3.19[facility] HospitalReactive Lymphocytes 13.0 %[facility] Townshipegmented Neutrophils # (Manual)15.49 10 3/uL1.4-6.5FMarymount HospitalTroponin I High Isdiuyxlgrr96.0 pg/mL4.0-51.3FMarymount HospitalComment on above:CUT-OFF POINTS HAVE BEEN ESTABLISHED [...] INFORMATION.No Panel InformationOrdered By: Oumar Gunter on 04-79-0997Qqyay Culture 2FMarymount HospitalBlood Culture 1FMarymount HospitalPlatelet mean volume Auto (Bld) [Entitic vol]on 99-06-9926Lfvtycjf mean volume (Bld) [Entitic vol]10.5 fL9.5-13.5FMarymount Hospital Platelets Auto (Bld) [#/Vol]on 02-00-7106Ijcwblrnu (Bld) [#/Vol]272 10 3/uL 150-450[facility] HospitalProtein Auto test strip (U) [Mass/Vol]on 10-77-4246Oqkbadd (U) [Mass/Vol]TRACE mg/dLNEG/TRACEWood County HospitalRBC Auto (Bld) [#/Vol]on 90-85-5155YYQ (Bld) [#/Vol]3.66 10 6/uL4.20-5.40 [facility] Townshipegmented neutrophils/100 WBC Manual cnt (Bld) on 12-20-1490Rkucsfkkc neutrophils/100 WBC (Bld)63.0 %[facility] Townshiperum or plasma albumin/globulin mass ratioon 20-40-0193Ufywklc/Globulin [Mass ratio]0.6 {ratio}[facility] Townshiperum or plasma anion gap determinationon 10-06-8686Dxngh gap [Moles/Vol]15.7 mmol/LFMercy Hospitalerum procalcitonin measurementon 08-81-4502Skthohijrmmtt [Mass/Vol]0.52 ng/mL0.00-0.50[facility] Townshippecific gravity Auto test strip (U) [Rel density]on 77-96-4907Pstckqyv gravity (U) [Rel density] CLEARCLEARFMarymount HospitalUrine glucose measurement by test strip (mass/volume)on 38-24-8356Peazyec Test strip (U) [Mass/Vol]Negative NEGATIVEWood County HospitalUrine hemoglobin detection by automated test stripon 13-57-9403Hoqtbmqjis Auto test strip Ql (U)NegativeNEGATIVE [facility] County HospitalUrine nitrite detection by automated test strip on 15-01-2052Aofppab Auto test strip Ql (U)NegativeNEGATIVEWood County HospitalUrobilinogen Auto test strip (U) [Mass/Vol]on 05-25-2023 Urobilinogen Qn (U)0.2 {Valentino'U}/dL0.2-1.0Wood County HospitalpH Auto test strip (U)on 53-43-4921iM (U)5.0 [pH]5.0-9.0[facility] County HospitalXR knee LT 2Von 85-69-9187UB knee LT 2VACMC Healthcare System IntooBR Other XR knee LT 2VFRMagruder Hospital IntooBR Other XR knee LT [id number] [place] [address] IntooBR Other XR knee LT 2[place]SRaef[place], [place] [address]Iqmbf [employer] Other XR knee LT 2VXRMoccasin Bend Mental [facility] Institute IntooBR Other XR knee LT 2VSHermann Area District Hospital The Grounds Keeper Other XR knee LT 2VPatient: Catherine Tang MR#: [id number] [facility] IntooBR Other XR knee LT [id number] [employer] Gr[employer]eeper Other XR knee LT 2VDOB: 1945 Acct:[id number] [employer] Grounds Keeper Other XR knee LT 2VAge/Sex: 77 / F ADM Date: 07/02/22[place] [employer] Other XR knee LT 2VLoc: SOXD Room: Type: [facility] The Grounds Keeper Other XR knee LT 2VAttending Dr: Miguel Spring II, MD [place] [employer] Other XR knee LT 2VCopies to: Miguel Spring MDPortland The [employer]ounds Keeper Other XR knee LT 2VOrdering Provider: Miguel Spring MD Kiddy Other xr knee LT 2VDate of Service: 07/02/22[place] [employer] Other xr knee LT 2VAccession #: ([id number]) XR/XR knee LT 2V: Primary osteoarthritis of left kneePort[place] The Grounds Keeper Other xr knee LT 2VLEFT KNEE - 2 viewsPortland The [employer]ounds Keeper Other xr knee LT 2VCOMPARISON: 10/16/2021[place] [employer] Other xr knee LT 2VCLINICAL DATA: Follow-up knee replacement.Kiddy Other xr knee LT 2VAP and lateral standing views were obtained. A knee prosthesis is again visualized. The hardwareNolafayette regional health center The Grounds Keeper Other xr knee LT 2Vappears intact and unchanged from the prior. There are no developing fractures or dislocation.Kiddy Other xr knee LT 2VThere is no sizable knee effusion.Kiddy Other xr knee LT 2VORDER #: [id number] XR/XR knee LT 2V[place] The [employer] Keeper Other xr knee LT 2VIMPRESSION:Kiddy Other xr knee LT 2VSTABLE KNEE REPLACEMENT.Kiddy Other xr knee LT 2VImpression dictated by: Qi Espinoza M.D.07/02/2022 1:42 [facility] [employer] Keeper Other xr knee LT 2VDictation Location: [id number]-YO-[id number] [employer] Grounds Keeper Other xr knee LT 2VTranscribed By: PWS 07/02/22 1342[place] [employer] Other xr knee LT 2VDictated By: Qi Espinoza MD 07/02/22 1341[place] [employer] Other xr knee LT 2VSigned By:[facility] IntooBR Other xr knee LT 2V07/02/[address] [place] [address] The Grounds Keeper Other ECHOCARDIO M/2D COMPLETEon 17-71-3503WIVQYDZCMW M/2D COMPLETEPatient: CATHERINE TANG Exam Date: 10/17/2021 : 1945 Gender:F Ordering : DR OUMAR GUNTER M.D. Admission #: [id number] Family : Order #: [id number] CLICK HERE TO VIEW EXAM ECHOCARDIOGRAM REPORT [...] by: Ibrahima Arguelles M.D. on 10/17/2021 at 17:41[facility] HospitalANES POSTPROC EVALon 46-96-5531OFFY POSTPROC EVALHNO ID: [id number] Author: Maria Guadalupe Lagos MD Service: Anesthesiology Author Type: Anesthesiologist Type: Anesthesia Postprocedure Evaluation Filed: 08/20/2021 12:24 PM Note Text: POST ANESTHESIA EVALUATION NOTE : 1945 Procedure Summary Date: 08/20/21 Room / Location: [address] Anesthesia Start: 1121 Anesthesia Stop: 1138 [...] August 20, 2021 TIME: 12:23 PM CSN: [id number] VA Medical Center PRE-OPon 00-69-9055BDTF PRE-OPHNO ID: [id number] Author: Maria Guadalupe Lagos MD Service: Anesthesiology Author Type: Anesthesiologist Type: Anesthesia Preprocedure Evaluation Filed: 08/20/2021 9:00 AM Note Text: ANESTHESIOLOGY DAY OF SURGERY NOTE : 1945 Procedure Information Date/Time: 08/20/21 1055 Procedures: PHACOEMULSIFICATION CATARACT IMPLANT INTRAOCULAR LENS W/O ENDOSCOPIC CYCLOPHOTOCOAGULATION (Right Eye) OPHTHALMIC BIOMETRY BY PARTIAL COHERENCE INTERFEROMETRY W/INTRAOCULAR LENS POWER CALCULATION (Right Eye) Location: [address] Surgeons: Jennifer Infante V, MD Estimated [...] and consent discussed: yes. Patient / Responsible Alliance Party agrees to proceed: yes Patient / [...] August 20, 2021 TIME: 8:59 AM CSN: [id number] Memorial Hospital NOon [id number] NOHNO ID: [id number] Author: Jennifer Infante V, MD Service: Ophthalmology Author Type: Physician Type: Operative Report Filed: 08/20/2021 11:39 AM Note Text: OPERATIVE REPORT DATE OF SERVICE: August 20, 2021 PRIMARY SURGEON: Jennifer Infante M.D. BRAKESHOE REPAIRER: None Procedure(s) (LRB): PHACOEMULSIFICATION CATARACT IMPLANT INTRAOCULAR [...] corneal incision was created temporally with a [place] blade then a 2.4 mm keratome. The [...] Implant Name Type Inv. Item Serial No. High School Band Teacher Lot No. LRB Model Num No. Used LENS IOL 0D +13 TONY UV ABS - [id number] Intraocular Lens LENS IOL 0D +13 TONY UV ABS [id number] [employer]IAN [employer] Right [id number].[id number] 1 was inserted through [...] Dang; relinquish care POD #1 Jennifer INFANTE MDNoTogus VA Medical Center POSTPROC EVALon 08-06-2021 ANES POSTPROC EVALHNO ID: [id number] Author: Chencho Leon MD Service: Anesthesiology Author Type: Anesthesiologist Type: Anesthesia Postprocedure Evaluation Filed: 08/06/2021 1:06 PM Note Text: POST ANESTHESIA EVALUATION NOTE : 1945 Procedure Summary Date: 08/06/21 Room / Location: [place] [address] / [facility] Anesthesia Start: 1030 Anesthesia Stop: 105 Procedures: [...] August 06, 2021 TIME: 1:06 PM CSN: [id number] VA Medical Center PRE-OPon [id number] PRE-OPHNO ID: [id number] Author: Chencho Leon MD Service: Anesthesiology Author Type: Anesthesiologist Type: Anesthesia Preprocedure Evaluation Filed: 08/06/2021 10:28 AM Note Text: ANESTHESIOLOGY DAY OF SURGERY NOTE : 1945 Procedure Information Date/Time: 08/06/21 1025 Procedures: PHACOEMULSIFICATION CATARACT IMPLANT INTRAOCULAR LENS W/O ENDOSCOPIC CYCLOPHOTOCOAGULATION (Left Eye) OPHTHALMIC BIOMETRY BY PARTIAL COHERENCE INTERFEROMETRY W/INTRAOCULAR LENS POWER CALCULATION (Left Eye) Location: [address] Surgeons: Jennifer Infante V, MD Estimated [...] and consent discussed: yes. Patient / Responsible Alliance Party agrees to proceed: yes Patient / [...] ON 08/07/2021] lidocaine 2 % (XYLOCAINE) OTHER [employer] to OR - tetracaine (PF) 0.5 % [...] obtained within 48 hours of Surgery/Procedure. SIGNATURE: Checnho Leon MD PATIENT NAME: Catherine Tang DATE: August 06, 2021 TIME: 10:10 AM CSN: [id number] Memorial Hospital NOon [id number] NOHNO ID: [id number] Author: Jennifer Infante V, MD Service: Ophthalmology Author Type: Physician Type: Operative Report Filed: 08/06/2021 10:49 AM Note Text: OPERATIVE REPORT DATE OF SERVICE: August 06, 2021 PRIMARY SURGEON: Jennifer Infante M.D. BRAKESHOE REPAIRER: None Procedure(s) (LRB): PHACOEMULSIFICATION CATARACT IMPLANT INTRAOCULAR [...] corneal incision was created temporally with a [place] blade then a 2.4 mm keratome. The anterior chamber was reformed with Viscoat, after which the anterior capsule was opened centrally. Using the Utrata forceps a continuous curvilinear capsulorrhexis of approximately 5.5 mm round was created. Gentle hydrodissection was accomplished using preservative-free lidocaine on a 27-gauge cannula. Using the Tian phacoemulsification unit with the Indisys curved tip, the anterior chamber was entered [...] Implant Name Type Inv. Item Serial No. High School Band Teacher Lot No. LRB Model Num No. Used LENS IOL 0D +13 TONY UV ABS - [id number] Intraocular Lens LENS IOL 0D +13 TONY UV ABS [id number] [employer] Left [id number] 1 was [...] 10:48 AM - Comanage with Dr Dang; [facility] P[facility] #1 Jennifer INFANTE MDMartin Memorial Hospital PHYSICALon 07-30-2021 HISTORY PHYSICALHNO ID: [id number] Author: Shikha Kate APRN.COTTON FARMWORKER Service: ? Author Type: Nurse Practitioner Type: [...] implants - PAST SURGICAL HISTORY OF SCS ([employer]) - TOTAL KNEE REPLACEMENT Left FAMILY [...] fevers. 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 No neurological symptoms or problems. Respiratory: No history of current cough or dyspnea, or pneumonia in the past 6 weeks. No history of respiratory/pulmonary symptoms or problems. Cardiovascular: No history of HTN requiring medication, no history of angina, CHF, LA, cardiac surgery or stents. Denies rest pain, gangrene or revascularization/amputation for PVD. No history of cardiovascular symptoms or problems. +HLD GI: No history of GI symptoms or problems. No history of esophageal varices, recent ascites, or ETOH greater than 2 drinks per day. : No history of dysuria, frequency or incontinence,, stones or chronic kidney disease +urgency CLINICAL RADIOLOGIST: Negative for abnormal vaginal bleeding, abnormal vaginal [...] 206 lb (93.4kg) SpO2 (more content not included)...NormalProMedica Toledo Hospital CAROTID ART BILon 90-29-9259HQ CAROTID ART BILEXAMINATION: US CAROTID ART FRACISCO [...] Electronically authenticated by: EDWARDO MANE Date: 2021-04-29 07:05[facility] HospitalCovid-19 PCR (CVDTBH)on 91-38-7137THCQ-CoV-2 (COVID-19) RNA ITZEL+probe Ql (Unsp spec)DetectedCritically abnormalNOT DETECTEDThe [facility] HospitalComment on above:Result Comment: This test is not yet approved or cleared by the [place] FDA. When there are no FDA-approved or cleared tests available, and other criteria are met, FDA can make tests available under an emergency access mechanism called an Emergency Use Authorization (EUA). The EUA for this test is supported by the Brick Handler of Health and Human Service's (HHS's) declaration [...] be used). Performed By: #### CVDTBH #### [facility] [address] [place] [address] Dr. Марина LangTHYROID ANTIBODIESon 10-77-4062Ivnyqnimtfyfa Antibody<1.0Normal 0.0-0.9[facility] Hospital - ColumbusComment on above:Result Comment: Thyroglobulin Antibody measured by Nutonian MethodologyPerformed By: #### THYRABS #### [facility] [address] [place] [address] Dr. Марина LangThyroid Peroxidase (TPO) Ab<0Rkllgg9-98RnsSelect Medical Specialty Hospital - Columbus Comment on above:Performed By: #### THYRABS #### [facility] [address] [place] [address] Dr. Марина Moreno AUTO DIFFon 32-50-1953VWUU #0.1 103/ulNormal0.0-0.1[facility] Hospital - ColumbusComment on above:Performed By: #### CBC #### [facility] [address] [place] [address] Dr. Марина LangBasophils/100 WBC (Bld)0.9 %Normal0.2-2.0[facility] Comment on above:Performed By: #### CBC #### [facility] [address] [place] [address] Dr. Parish ChangEBrittni #0.3 103/ulNormal0.0-0.7The [facility] HospitalComment on above: Performed By: #### CBC #### [facility] [address] [place] [address] Dr. Марина Toosinophils/100 WBC (Bld)5.7 %Normal0.9-7.0The [facility] Comment on above:Performed By: #### CBC #### [facility] [address] [place] [address] Dr. Марина Torythrocyte distribution width (RBC) [Ratio]14.0 %Gcukrp60.0-15.0 The [facility] HospitalComment on above:Performed By: #### CBC #### [facility] [address] [place] [address] Dr. Марина LangHematocrit (Bld) [Volume fraction]40.5 %Ahwlgs78.0-48.0The [facility] HospitalComment on above:Performed By: #### CBC #### [facility] [address] [place] [address] Dr. Марина LangHemoglobin (Bld) [Mass/Vol]12.3 g/kGAlzkhe64.0-16.0The [facility] HospitalComment on above:Performed By: #### CBC #### [facility] [address] [place] [address] Dr. Марина Phan #0.01 10e3/ulNormal0.00-0.03The [facility] HospitalComment on above:Performed By: #### CBC #### [facility] [address] [place] [address] Dr. Марина LangIG %0.2 %Normal0.0-0.5The [facility] Clinic Foundationment on above: Performed By: #### CBC #### [facility] [address] [place] [address] Dr. Марина OrrMPH #1.5 103/ulNormal1.2-3.8The [facility] HospitalComment on above:Performed By: #### CBC #### [facility] [address] [place] [address] Dr. Марина Orrmphocytes/100 WBC (Bld)27.9 %Gevcwn19.5-60.0The [facility] HospitalComment on above:Performed By: #### CBC #### [facility] [address] [place] [address] Dr. Марина Dunn DIFF REQNONormalThe [facility] HospitalComment on above: Performed By: #### CBC #### [facility] [address] [place] [address] Dr. Марина Hansen (RBC) [Entitic mass]28.6 ffFllmma40.7-34.0The [facility] HospitalComment on above:Performed By: #### CBC #### [facility] [address] [place] [address] Dr. Марина Hansen (RBC) [Mass/Vol]30.4 g/fNMxhwfl72.9-35.2The [facility] HospitalComment on above:Performed By: #### CBC #### [facility] [address] [place] [address] Dr. Марина Hansen (RBC) [Entitic vol]94.2 hCYtvxxh30.0-99.0The [facility] HospitalComment on above:Performed By: #### CBC #### [facility] [address] [place] [address] Dr. Марина Rubio #0.5 103/ulNormal0.3-0.8The [facility] HospitalComment on above:Performed By: #### CBC #### [facility] [address] [place] [address] Dr. Марина Burgosocytes/100 WBC (Bld)9.0 %Normal1.7-12.0The [facility] Comment on above:Performed By: #### CBC #### [facility] [address] [place] [address] Dr. Марина Alejandro #3.1 103/ulNormal1.4-6.5The [facility] Clinic Foundationment on above:Performed By: #### CBC #### [facility] [address] [place] [address] Dr. Марина Sinhautrophils/100 WBC (Bld)56.3 %Qlgmtk56.0-75.0The [facility] HospitalComment on above:Performed By: #### CBC #### [facility] [address] [address] [address] Марина LangPlatelet mean volume (Bld) [Entitic vol]9.9 fLNormal9.5-13.5The [facility] HospitalComment on above:Performed By: #### CBC #### [facility] [address] [place] [address] Dr. Марина LangPLT172 103/kaLhzzqy702-911Pyl [facility] HospitalComment on above: Performed By: #### CBC #### [facility] [address] [place] [address] Dr. Марина LangRBC4.30 106/ulNormal4.20-5.40The [facility] HospitalComment on above:Performed By: #### CBC #### [facility] [address] [place] [address] Dr. Марина LangWBC5.4 103/ulNormal4.0-11.0The [facility] HospitalComment on above: Performed By: #### CBC #### [facility] [address] [place] [address] Dr. Марина LangFRTRACE T4on 52-69-5455Vyje T4 [Mass/Vol]1.06 ng/dLNormal0.78-2.19 The [facility] HospitalComeaton rapids medical center on above:Performed By: #### FT4 #### [facility] [address] [place] [address] Dr. Маирна LangGLYCOHEMOGLOBIN A1Con 81-73-6793BKF RECOMMENDATIONADA THERAPEUTIC TARGET 6.0 - 7.0 ACTION SUGGESTED > 7.0NoFisher-Titus Medical CenterComment on above:Performed By: #### A1C #### [facility] [address] [place] [address] Dr. Марина LangGlucose [Mass/Vol]131 mg/dLNoFisher-Titus Medical CenterComment on above:Performed By: #### A1C #### [facility] [address] [place] [address] Dr. Марина LangHbA1c (Bld) [Mass fraction]6.2 %Critically high<=6.0The [facility] HospitalComment on above:Performed By: #### A1C #### [facility] [address] [place] [address] Dr. Марина PuenteF CHEM 8 (BAS METB)on 93-75-2826Tgzzf gap [Moles/Vol]8.9 mmol/LNormalThe [facility] HospitalComment on above:Performed By: #### BMP, TSH #### [facility] [address] [place] [address] Dr. Марина LangCalcium [Mass/Vol]10.0 mg/dLNormal8.4-10.2The [facility] Comment on above:Performed By: #### BMP, TSH #### [facility] [address] [place] [address] Dr. Марина LangChloride [Moles/Vol]105 mmol/DSwgcen55-661Kfv [facility] Comment on above:Performed By: #### BMP, TSH #### [facility] [address] [place] [address] Dr. Марина LangCO2 [Moles/Vol]35.0 mmol/LCritically high22.0-30.0The [facility] HospitalComment on above:Performed By: #### BMP, TSH #### [facility] [address] [place] [address] Dr. Марина LangCreatinine [Mass/Vol]1.10 mg/dLCritically high0.52-1.04The [facility] HospitalComment on above:Performed By: #### BMP, TSH #### [facility] [address] [place] [address] Dr. Parish ChangEGFR-AF IKYAWZGH70 mL/min/1.66m4Xkdijteyuv low>=60The [facility] HospitalComment on above:Performed By: #### BMP, TSH #### [facility] [address] [place] [address] Dr. Марина ToGFR-NON AF VJNBBMMC55 mL/min/1.77v7Rzirqvyttg low>=60The [facility] HospitalComment on above:Performed By: #### BMP, TSH #### [facility] [address] [address] [address] Марина LangGlucose [Mass/Vol]107 mg/dLCritically hppp81-150Mlv [facility] HospitalComment on above:Performed By: #### BMP, TSH #### [facility] [address] [address] [address] Марина LangPotassium [Moles/Vol]4.9 mmol/LNormal3.4-5.0The [facility] Comment on above:Performed By: #### BMP, TSH #### [facility] [address] [address] [address] Марина LangSodium [Moles/Vol]144 mmol/EEgxueu282-843Alc [facility] Comment on above:Performed By: #### BMP, TSH #### [facility] [address] [place] [address] Dr. Марина LangUrea nitrogen [Mass/Vol]17.0 mg/dLNormal7.0-17.0The [facility] HospitalComment on above:Performed By: #### BMP, TSH #### [facility] [address] [place] [address] Dr. Марина Mancera nitrogen/Creatinine [Mass ratio]15.5 mg/mgNoFisher-Titus Medical CenterComment on above:Performed By: #### BMP, TSH #### [facility] [address] [place] [address] Dr. Марина Bauman 53-12-6819UWO1.603 uIU/mLNormal0.470-4.680The [facility] HospitalComment on above:Performed By: #### BMP, TSH #### [facility] [address] [place] [address] Dr. Марина LEENewark HospitalComment on above: Result Comment: <0.34 UIU/ml HYPERTHYROID 0.34-5.60 UIU/ml EUTHYROID >5.60 UIU/ml HYPOTHYROIDPerformed By: #### BMP, TSH #### [facility] [address] [place] [address] Dr. Марина Vann BIOMETRY W/ IOL CALC OU (BOTH EYES)[facility] Vital Signs Date TimeVital SignValuePerforming VfwlbrkzyGbeljpdl45-87-4478 14:20-0400Body utypfl251.02 cmOumar Gunter MD Work Phone: [phone]10-30-2025 14:20-0400 Body mass index (BMI) [Ratio]34 kg/t4WrawgvOumar Gunter MD Work Phone: [phone] [place], [place] 4048110-30-2025 14:20-0400 Body teemcbtlsga98.2 [degF]Oumar Gunter MD Work Phone: [phone] [place], [place] 4048110-30-2025 14:20-0400 Body .08 kgOumar Gunter MD Work Phone: [phone] [place], [place] 4048110-30-2025 14:20-0400 Diastolic blood mtkpojrp01 mm[Hg]Oumar Gunter MD Work Phone: [phone])[address] [place], [place] 4048110-30-2025 14:20-0400 Heart ppkj609 /Joanne Gunter MD Work Phone: [phone] [place], [place] 4048110-30-2025 14:20-0400 SaO2% (BldA) [Mass fraction]91 %Oumar Gunter MD Work Phone: [phone] [place], [place] 4048110-30-2025 14:20-0400 Systolic blood xsjobfye291 mm[Hg]Oumar Gunter MD Work Phone: [phone] [place], [place] 4048109-26-2025 10:02-0400 Diastolic blood bihfkblf40 mm[Hg]Oumar Gunter MD Work Phone: [phone])[address] [place], [place] 4048109-26-2025 10:02-0400 Heart rate92 /Joanne Gunter MD Work Phone: [phone] [place], [place] 4048109-26-2025 10:02-0400 Systolic blood agwqsewz293 mm[Hg]Oumar Gunter MD Work Phone: [phone] [place], [place] 4048109-26-2025 09:57-0400 Body meizlw809.02 cmOumar Gunter MD Work Phone: [phone])[address]09-26-2025 09:57-0400 Body mass index (BMI) [Ratio]35.4 kg/u7UsqavxOumar Gunter MD Work Phone: [phone])[address] [place], [place] 4048109-26-2025 09:57-0400 Body zuaxobnghis57.3 [degF]Oumar Gunter MD Work Phone: [phone] [place], [place] 4048109-26-2025 09:57-0400 Body gclyew84.71 kgOumar Gunter MD Work Phone: [phone])[address] [place], [place] 4048106-27-2025 10:12-0400 Body .02 Chad Gunter MD Work Phone: [phone])[address] [place], [place] 4048106-27-2025 10:12-0400 Body mass index (BMI) [Ratio]34.5 kg/n2JztueoOumar Gunter MD Work Phone: [phone])[address] [place], [place] 4048106-27-2025 10:12-0400 Body fvqikfugztg75.2 [degF]Oumar Gunter MD Work Phone: [phone])[address] [place], [place] 4048106-27-2025 10:12-0400 Body suhkmz62.45 kgOumar Gunter MD Work Phone: [phone])[address] [place], [place] 4048106-27-2025 10:12-0400 Diastolic blood mm[Hg]Oumar Gunter MD Work Phone: [phone])[address] [place], [place] 4048106-27-2025 10:12-0400 Heart rate95 /minOumar Gunter MD Work Phone: [phone])[address] [place], [place] 4048106-27-2025 10:12-0400 Systolic blood vjiomprm430 mm[Hg]Oumar Gunter MD Work Phone: [phone])[address] [place], [place] 4048105-06-2025 13:38-0400 Body niqbns000.02 cmOumar Gunter MD Work Phone: [phone])[address] [place], [place] 4048105-06-2025 13:38-0400 Body mass index (BMI) [Ratio]36.3 kg/b7GnlmxuOumar Gunter MD Work Phone: [phone])[address]05-06-2025 13:38-0400 Body gwdzpy09.98 kgOumar Gunetr MD Work Phone: [phone])[address]05-06-2025 13:38-0400 Diastolic blood ikudqqbd00 mm[Hg]Oumar uGnter MD Work Phone: [phone])[address]05-06-2025 13:38-0400 Heart rate95 /Joanne Gunter MD Work Phone: [phone])[address]05-06-2025 13:38-0400 SaO2% (BldA) [Mass fraction]94 %Oumar Gunter MD Work Phone: [phone])[address]05-06-2025 13:38-0400 Systolic blood xanecorf256 mm[Hg]Oumar Gunter MD Work Phone: 1(558)[address] [place], [place] 4048104-29-2025 10:58-0400 Body aotvlv7446.24 cmOumar Gunter MD Work Phone: 1(247)[address] [place], [place] 4048104-29-2025 10:58-0400 Body mass index (BMI) [Ratio]0.2 kg/a1GnepuyOumar Gunter MD Work Phone: [phone])[address]04-29-2025 10:58-0400 Body izrrkw92.35 kgOumar Gunter MD Work Phone: [phone])[address]04-29-2025 10:58-0400 Diastolic blood mm[Hg]Oumar Gunter MD Work Phone: 1(262)[address]04-29-2025 10:58-0400 Heart rate84 /Joanne Gunter MD Work Phone: [phone])[address]04-29-2025 10:58-0400 Systolic blood zonoxyrv084 mm[Hg]Oumar Gunter MD Work Phone: 1(938)[address] [place], [place] 4048104-01-2025 14:15-0400 Body ovkuvf117.02 cmOumar Gunter MD Work Phone: [facility]04-01-2025 14:15-0400 Body mass index (BMI) [Ratio]34.9 kg/c5TmnjniOumar Gunter MD Work Phone: [facility]04-01-2025 14:15-0400 Body fgqotm22.35 kgOumar Gunter MD Work Phone: [phone] [place], [place] 9707004-01-2025 14:15-0400 Diastolic blood okwayfww16 mm[Hg]Oumar Gunter MD Work Phone: [phone]04-01-2025 14:15-0400 Heart rate86 /Joanne Gunter MD Work Phone: [phone]04-01-2025 14:15-0400 Systolic blood vokzdtum909 mm[Hg]Oumar Gunter MD Work Phone: 1(152)489-[address] [place], [place] 9707003-28-2025 09:56-0400 Body nvoslh899.02 [facility] 09:56-0400Body mass index (BMI) [Ratio]34.9 kg/p9JvknsjiihWood [facility]03-28-2025 09:56-0400Body hzrcbtcygfl61.4 [degF][facility]03-28-2025 09:56-0400Body syglsx27.35 kg[facility]03-28-2025 09:56-0400Diastolic blood mulkvzhd82 mm[Hg][facility] 06-23-2024 09:56-0400Heart rate92 /[facility] 06-23-2024 09:56-0400Systolic blood uxmiyfzz935 mm[Hg][facility]01-29-2025 09:27-0500Body swfirc289.02 cm[facility]01-29-2025 09:27-0500Body mass index (BMI) [Ratio]34.3 kg/w3FqmrykypaWood County Hospital01-29-2025 09:27-0500Body eizzwhovhtt03.8 [degF][facility]01-29-2025 09:27-0500Body yfpfmo57 kg[facility]01-29-2025 09:27-0500Diastolic blood mm[Hg][facility]01-29-2025 09:27-0500Heart rate86 /minWood [facility] Hospital01-29-2025 09:27-0500Systolic blood sifvixeh179 mm[Hg][facility]12-09-2024 11:50-0500Body qmtlez583.02 cm[facility]12-09-2024 11:50-0500Body mass index (BMI) [Ratio]34.9 kg/c6NdfufggocWood County Hospital12-09-2024 11:50-0500Body urctgr74.35 kg [facility]12-09-2024 11:50-0500Diastolic blood mm[Hg][facility]12-09-2024 11:50-0500Heart rate86 /min [facility]12-09-2024 11:50-0500Systolic blood qqoahvra686 mm[Hg][facility]03-06-2024 09:33-0500Body fyfncj783.02 cmMD Oumar Gunter Work Phone: [facility]03-06-2024 09:33-0500 Body mass index (BMI) [Ratio]33.6 kg/m2MD Oumar Gunter Work Phone: [facility]03-06-2024 09:33-0500 Body fubuue08.18 kgMD Oumar Gunter Work Phone: [facility]03-06-2024 09:33-0500 Diastolic blood mm[Hg]MD Oumar Gunter Work Phone: [facility]03-06-2024 09:33-0500 Heart mxyf737 /minMD Oumar Gunter Work Phone: [facility]03-06-2024 09:33-0500 Systolic blood mm[Hg]MD Oumar Gunter Work Phone: [facility]12-13-2023 10:00-0500 Body eckinf603.02 cmOumar Gunter Other [employer] Other 12-13-2023 10:00-0500Body mass index (BMI) [Ratio] 34.68 kg/s1YqzjjnOumar Gunter Other [employer] Other 12-13-2023 10:00-0500Body mrtfli47.81 kgOumar Gunter Other [facility] [employer] Other [id number] 10:00-0500Diastolic blood gjqozjxu79 mm[Hg] Oumar Gunter Other [employer] Other 12-13-2023 10:00-0500Systolic blood ytycykwj930 mm[Hg] Oumar Gunter Other [employer] Other 12-12-2023 11:20-0500Body cwezvk726.02 cmLindaditi WinklerMyra Other [employer] Other 12-12-2023 11:20-0500Body mass index (BMI) [Ratio] 34.72 kg/i9Auheg Myra Other [employer] Other 12-12-2023 11:20-0500Body vyyvui01.91 kgLinda Myra Other [employer] Other 12-12-2023 11:20-0500Diastolic blood mbgvaukq80 mm[Hg] Myra Other [employer] Other 12-12-2023 11:20-0500Respiratory rate20 /minLinda Myra Other [employer] Other 12-12-2023 11:20-4870WgM4% (BldA) [Mass fraction]92 % Myra Other [employer] Other 12-12-2023 11:20-0500Systolic blood jhwscsyp008 mm[Hg] Myra Other [employer] Other 11-13-2023 10:00-0500Body potsnq082.02 cmLinda Myra Other [employer] Other 11-13-2023 10:00-0500Body mass index (BMI) [Ratio] 34.54 kg/h7Vgsrv Myra Other [employer] Other 11-13-2023 10:00-0500Body .45 kgLinda Myra Other [employer] Other 11-13-2023 10:00-0500Diastolic blood mivldhdd23 mm[Hg] Myra Other [employer] Other 11-13-2023 10:00-0500Respiratory rate18 /minLinda Myra Other [employer] Other 11-13-2023 10:00-2121WdB4% (BldA) [Mass fraction]94 % Myra Other [employer] Other 11-13-2023 10:00-0500Systolic blood mm[Hg] Linda Renteria Other [employer] Other 06-13-2023 10:30-0400Body .02 cmOumar Gunter Other [employer] Other 06-13-2023 10:30-0400Body mass index (BMI) [Ratio] 34.18 kg/n8BqfrqjOumar Gunter Other [employer] Other 06-13-2023 10:30-0400Body ridmtz83.54 kgOumar Gunter Other [employer] Other 06-13-2023 10:30-0400Diastolic blood atkplpud92 mm[Hg] Oumar Lyric Other [employer] Other 06-13-2023 10:30-0400Systolic blood cpqujtdy356 mm[Hg] Oumar Lyric Other [employer] Other 04-06-2023 10:45-0400Body .02 cmRobert [place] Other [employer] Other 04-06-2023 10:45-0400Body mass index (BMI) [Ratio]35.6 kg/h7Qsgpjz Saw II Other [employer] Other 04-06-2023 10:45-0400Body .17 kgRobert Saw II Other [employer] Other 06-09-2022 10:45-0400Body rgoaup102.02 cmRobert [place] Other [employer] Other 06-09-2022 10:45-0400Body mass index (BMI) [Ratio]35.6 kg/k2Dhidyd [place] Other [employer] Other 06-09-2022 10:45-0400Body bjpfot81.17 kgRobert [place] Other [employer] Other 05-12-2022 16:30-0400Body etifhu413.02 cmRobert [place] Other [employer] Other 05-12-2022 16:30-0400Body mass index (BMI) [Ratio]35.6 kg/u3Azaqnb Saw II Other [employer] Other 05-12-2022 16:30-0400Body .17 kgRobert [place] II Other [employer] Other 05-04-2022 09:12-0400Body kajviu675.3 cmPacc 1 Work Phone: [facility]05-04-2022 09:12-0400Body temperature 97 [degF]Pacc 1 Work Phone: [facility]05-04-2022 09:12-0400Body jpsxaa91.44 kgPacc 1 Work Phone: [facility]05-04-2022 09:12-0400Diastolic blood yjdsfflg42 mm[Hg]Pacc 1 Work Phone: [facility]05-04-2022 09:12-0400Heart kdol147 /minPacc 1 Work Phone: [facility]05-04-2022 09:12-0400Respiratory rate 16 /minPacc 1 Work Phone: [facility]05-04-2022 09:12-5244GmS5% (BldA) [Mass fraction]96 %Pacc 1 Work Phone: [facility]05-04-2022 09:12-0400Systolic blood dgpafcqn903 mm[Hg]Pacc 1 Work Phone: [facility]04-25-2022 12:30-0400Diastolic blood ohcomxyh75 mm[Hg]MD Oumar Gunter Work Phone: [facility]04-25-2022 12:30-0400 Heart rate98 /minMD Oumar Gunter Work Phone: 1(526)278-24[facility]04-25-2022 12:30-0400 Respiratory rate16 /minMD Oumar Gunter Work Phone: 1(969)342-44[facility]04-25-2022 12:30-0400 SaO2% (BldA) [Mass fraction]94 %MD Oumar Gunter Work Phone: 1(246)192-62[facility]04-25-2022 12:30-0400 Systolic blood ejxlpyro846 mm[Hg]MD Oumar Gunter Work Phone: 1(138)970-54[facility]04-25-2022 12:00-0400 Inhaled oxygen flow rate1 L/minMD Oumar Gunter Work Phone: 1(482)678-72[facility]04-25-2022 10:21-0400 Body jmfrwyunmil98.2 [degF]MD Oumar Gunter Work Phone: 1(106)431-65[facility]04-25-2022 07:16-0400 Body ejirig680.29 cmMD Oumar Gunter Work Phone: 1(394)692-03[facility]04-25-2022 07:16-0400 Body mass index (BMI) [Ratio]35.7 kg/m2MD Oumar Gunter Work Phone: 1(052)522-41[facility]04-25-2022 07:16-0400 Body nxsufa88 kgMD Oumar Gunter Work Phone: 1(072)883-50[facility]04-08-2022 10:30-0400 Body tupmcc196.02 cmRobert [place] Other [employer] Other 04-08-2022 10:30-0400Body mass index (BMI) [Ratio] 35.42 kg/u8Xyxlqa [place] Other [employer] Other 04-08-2022 10:30-0400Body qxbisb37.72 kgRobert [place] Other [employer] Other 03-02-2022 11:15-0500Body xapqbq076.02 cmRobert [place] Other [employer] Other 03-02-2022 11:15-0500Body mass index (BMI) [Ratio]35.6 kg/s5Rnotde Saw II Other [employer] Other 03-02-2022 11:15-0500Body yorcxy62.17 kgRobert [place] Other [employer] Other Encounters Encounter DateEncounter TypeCare ProviderFacilityStart: 01-25-2025 End: 81-43-9687jpifwldqbyOvtlwx E Braun MD [facility]25 End: 60-46-6498Eweyelb encounter Edda Gunter MD-[facility] Work Phone: Start: 12-22-2024 End: 61-67-9164ayzcmoiaayMkxdfc E Braun MD Work Phone: [facility] Work Phone: Start: 12-22-2024 End: 57-37-5224Uoftveq encounter Noemí Aleman [facility] Work Phone: Start: 09-22-2024 End: 01-30-8415xpboldcmzfGitasm E Braun MD Work Phone: [facility] Work Phone: Start: 09-22-2024 End: 98-37-7954Xahkwqc encounter procedureZunildamajo Aleman [facility]ERGu[facility] Work Phone: Start: 07-52-4825Zxj-patient / Non-visitFidelina Escobar MDCascade Medical Center Professional [facility] Work Phone: Start: 08-01-2024 End: 36-71-5402yqbuggntvqDlohxh E Braun MD Work Phone: [facility] Work Phone: Start: 08-01-2024 End: 02-45-1343Eqpwgbq encounter procedureOumar Gunter MD Work Phone: [facility] Work Phone: Start: 48-59-7773Tjg-patient / Non-visitOumar Gunter MD Work Phone: [facility] Work Phone: Start: 62-59-8973Obq-patient / Non-visitOumar Gunter MD Work Phone: [facility] GroupC[facility] Work Phone: Start: 71-59-0688Wcn-patient / Non-visitOumar Gunter MD Work Phone: [facility] Work Phone: Start: 07-25-2024 End: 02-23-9162bzlshdwzzcUnxjwh E Braun MD Work Phone: [facility] Work Phone: Start: 07-25-2024 End: 88-93-7238Zwmtftd encounter procedureOumar Gunter MD Work Phone: [facility] Work Phone: Start: 55-77-6259Vnj-patient / Non-visitOumar Gunter MD Work Phone: [facility] Work Phone: Start: 06-27-2024 End: 15-33-5323okwfhwwwgjTksfwa E Braun MD Work Phone: [facility] Work Phone: Start: 06-27-2024 End: 16-73-7412Gpvucuc encounter procedureOumar Gunter MD Work Phone: [facility] Physician [facility] Work Phone: Start: 06-27-2024 End: 58-34-0474Qispyms encounter procedureOumar Gunter MD Work Phone: [facility] Start: 06-27-2024 End: 13-56-7452ulqhgfprsfFtazpr E Braun MD Work Phone: [facility] Work Phone: Start: 06-23-2024 End: 79-67-3782extklqbmwaNkxqjqzhzOhio [facility] Work Phone: Start: 06-23-2024 End: 05-09-6145Uxdznjx encounter procedureBrianpioneer [facility] Work Phone: Start: 05-09-2024 End: 22-19-6375orngfsgyciAuosgqgyrOhio State Harding Hospital Work Phone: Start: 05-09-2024 End: 59-49-1328Lzajtmx encounter procedureBrianpioneer [facility] Work Phone: Start: 05-05-2024 End: 82-96-1369Oqjxjow encounter procedureBrianpioneer [facility] Phys[facility] Work Phone: Start: 04-26-2024 End: 55-16-2930Dcnyiay encounter procedureBrianpioneer [facility] Work Phone: Start: 88-52-2024Yjlawkz encounter procedureKettering Health Washington Townshiptart: 03-06-2024 End: 99-17-1016Kzdlumt encounter procedureAt[facility] Physician GroupC[facility] Work Phone: Start: 35-38-7841Ywh-patient / Non-visitAt[facility] Health [facility] Phys[facility] GroupC[facility] Work Phone: Start: 06-15-2023 End: 26-09-8059kogizakdbqOK Oumar Gunter Work Phone: [facility] Work Phone: Start: 06-15-2023 End: 87-26-5075Hpnusohd ReferredMD Oumar Gunter Work Phone: [facility]-LAB Path Spec [facility] HospStart: 92-32-5914Ptj-patient / Non-visitMD Oumar Gunter Work Phone: [facility] Physician [facility] Work Phone: Start: 06-02-2023 End: 43-20-4884Cnghebv encounter procedureMD Oumar Gunter Work Phone: [facility] GroupC[facility] Work Phone: Start: 67-88-8819Lwv-patient / Non-visitMD Oumar Gunter Work Phone: [facility] GroupC[facility] Work Phone: Start: 22-92-5781Iss-patient / Non-visitMD Oumar Gunter Work Phone: [facility] Work Phone: Start: 05-91-6574Cdt-patient / Non-visitMD Oumar Gunter Work Phone: [facility] Work Phone: Start: 87-18-7779Gdp-patient / Non-visitMD Oumar Gunter Work Phone: [facility] GroupC[facility] Work Phone: Start: 73-88-5726Yos-patient / Non-visitMD Oumar Gunter Work Phone: [facility] Work Phone: Start: 86-63-8734Ney-patient / Non-visitMD Oumar Gunter Work Phone: [facility] Work Phone: Start: 10-16-0088Dvl-patient / Non-visitMD Oumar Gunter Work Phone: [facility] Work Phone: Start: 05-04-2023 End: 56-36-2959sszpaosjopNubvii Lyric Other [facility] [employer] Other Start: 13-72-6311Euoyyrmgs encounterOumar GunterMercy Health St[facility] ClinicStart: 03-10-2023 End: 57-16-5172ojbbcygqffOpieaq Lyric Other [facility] [employer] Other Start: 72-68-2227Vonaau outpatient visit 15 [address] [facility] ClinicStart: 03-09-2023 End: 67-72-7614pfjygvzzifWupzg Njoroge Other [facility] [employer] Other Start: 31-18-5826Sgkdat outpatient visit 25 minutes [facility]COP[facility] CardiologyStart: 27-89-8190Ntdzvpcda encounterMarcia LyricMercy Health St. [facility] ClinicStart: 03-03-2023 End: 88-97-7284enzbqnnsqeEI Oumar Gunter Work Phone: [employer] Other Start: 03-03-2023 End: 99-41-3876Tahnaat encounter procedureMD Oumar Gunter Work Phone: [facility]-Res[facility] Therapy Work Phone: Start: 03-02-2023 End: 23-85-0914Wzqmqfh encounter procedureMD Oumar Gunter Work Phone: [facility]-Electrodiagnostics Work Phone: Start: 02-25-2023 End: 37-56-0556bkdjevxvstNP Marcia E Braun Work Phone: [facility] Work Phone: Start: 02-25-2023 End: 76-20-3426Ggpukuw encounter procedureMD Oumar Gunter Work Phone: [facility]-Electrodiagnostics Work Phone: Start: 02-15-2023 End: 84-72-3566gzjjxnmqkuRhdqaw Braun Other [employer] Other Start: 11-17-2183Rovmdwhwj encounterOumar [facility] Austintart: 02-10-2023 End: 08-96-9742szpkyruxjmFedui Myra Other [employer] Other Start: 01-58-9368Vvtymeijn encounterLinda MyraFPRod Referral CoordinatorStart: 02-08-2023 End: 33-33-0985gdwfbqksidCiins Myra Other [employer] Other Start: 72-17-7384Oxsfsf outpatient new 45 minutesLinda Jimmy CardiologyStart: 02-01-2023 End: 75-17-4672zcgawkblhtKjknvs Braun Other [employer] Other Start: 88-49-2014Bpiyngeun encounterMarcia [facility] ClinicStart: 01-05-2023 End: 67-98-8036zvacxvqeiwXomimd Gunter Other [employer] Other Start: 67-07-3097Ifavdghcd encounterMarcia [facility] ClinicStart: 12-31-2022 End: 49-67-4215lvjgiggpbqEmhdze Gunter Other [employer] Other Start: 11-66-3778Zyhyzdnnx encounterMarcia [facility] ClinicStart: 10-01-2022 End: 36-23-5263odybegcpazQzehac Gunter Other [employer] Other Start: 53-19-5510Stlxanxhc encounterMarcia [facility] ClinicStart: 09-23-2022 End: 73-09-5297txlfpecknoTiqguj Gunter Other [employer] Other Start: 44-49-7679Xuotkbuvu encounterMarcia [facility] ClinicStart: 09-09-2022 End: 36-70-1794jgjgkmjfqcMyycdy Gunter Other [employer] Other Start: 16-76-1938Nxozmomzc encounterMarcia [facility] ClinicStart: 09-08-2022 End: 12-14-8443wavyomyidzRvhojd Gunter Other [employer] Other Start: 36-40-1860Hrvebn outpatient visit 25 minutes Oumar GunterCOPPER SPRINGS [facility] ClinicStart: 07-03-2022 End: 20-05-9092sredtivaarCcnslc Gunter Other [employer] Other Start: 10-94-3568Lcdjdlieg encounterMarcia LyricFPG [facility] ClinicStart: 07-02-2022 End: 09-35-6571Dmckcch encounter procedureMD Oumar Gunter Work Phone: [facility] Start: 07-02-2022 End: 96-14-1783ishowqggflWE Oumar San Gunter Work Phone: [facility] Work Phone: Start: 06-03-2022 End: 53-01-3838gmqrnqdfknRvbvtl Braun Other [employer] Other Start: 58-08-0486Jrsacydvb encounterMarciaditi [facility] ClinicStart: 04-08-2022 End: 32-87-0499zrjdoucwseOcdchw Braun Other [employer] Other Start: 49-15-9279Ajgsbnphc encounterMarciaditi [facility] ClinicStart: 43-58-8047pbnwqixmusPX OUMAR GUNTERFacility:G2Ipawc: 10-17-2021 End: 03-01-8328jpllzawhtjOI OUMAR GUNTERFacility:V7Gsweb: 10-16-2021 End: 51-17-3605Uhpfpgg encounter procedureMD Oumar Gunter Work Phone: [facility] Start: 09-18-2021 End: 08-34-4948kzidipgvewUzgmmn [place] Other [employer] Other Start: 05-35-6293Uauvlx outpatient visit 15 minutes Miguel MOJICA [facility] OrthopedicsStart: 09-04-2021(Post-Op) Post-Op Miguel MOJICAG [facility]icsStart: 09-04-2021 End: 03-18-9881muokdzutsmNucodv Saw II Other [employer] Other start: 09-04-2021 End: 83-88-1172Tvujeuj encounter procedureMD Oumar Lyric Work Phone: [facility] Start: 08-27-2021 End: 21-91-1711jvdmsvzufsNOKTIF CARLISLEFacility:U8Xjyno: 08-20-2021 End: 19-72-7168Hmtwlvt encounter procedureStepleanna Pacheco OD Work Phone: OphthalmologyComment on above:S/P cataract extraction and insertion of intraocular lens, left (Primary Dx); 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Start: 08-07-2021 (Post-Op) Post-OpRobert Saw IIFPG [facility] OrthopedicsStart: 08-07-2021 End: 35-13-0085ycjsjuwmjkZbctgw [place] Other [place] [employer] Other Start: 08-07-2021 End: 94-82-6986Htrqobu encounter procedureAikimberly Infante MD Work Phone: OphthalmologyComment on above:S/P cataract extraction and insertion of intraocular lens, left (Primary Dx); 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Start: 07-30-2021 End: 99-67-2700Zfyibyz encounter procedureEye Measurements Work Phone: OphthalmologyComment on above:Combined forms of age- related cataract of both eyesStart: 07-30-2021 End: 25-26-1931Qcegnmkqt to establishmentPacc [place] Work Phone: [facility] FHCStart: 07-30-2021 End: 66-96-5714rqmclspsxuUfok [place] Work Phone: Pre AnesthesiaComment on above:Pre-op evaluation (Primary Dx); Cataract of both eyes, unspecified cataract type; Other hyperlipidemia; Complex regional pain syndrome type 1, affecting unspecified siteStart: 07-30-2021 End: 77-70-7409Atfmoqpvkupkx examination donePacc [place] 1 Work Phone: Pre AnesthesiaStart: 07-23-2021 End: 76-73-3055qylkyosgmnOfrnod [place] Other [employer] Other Start: 77-25-2081Hdlwmayow encounterRobert [place] [facility]opedicsStart: 07-21-2021 End: 00-83-7426adlufiwepgXfnswe Saw II Other [employer] Other Start: 23-06-3561Rlnfbjdpa encounterRobert [place] [facility] OrthopedicsStart: 07-21-2021 End: 42-92-3858Qmxhobvcl to same day surgery center Oumar Lyric Work Phone: [facility] CampusStart: 07-11-2021(Prolonged) Prolonged ServicesRobert [place] IIFPG [facility]opedicsStart: 07-11-2021 End: 99-81-0116agictlqjxjOqsqjb Saw II Other [employer] Other Start: 07-10-2021 End: 03-31-2508vuynopxdikXeffxi [place] Other [employer] Other Start: 50-67-3129Nhxtdqeey encounterRobert [place] [facility]opedicsStart: 07-04-2021 End: 24-82-2318tvohamrfsfXfaumq Saw II Other [employer] Other Start: 23-41-1327Biwnxqnlj for other preprocedural examinationRobert [place] IIFPG [facility] OrthopedicsStart: 62-72-1335Dlcjirk encounter procedureRobert [place] IIFPG [facility] OrthopedicsStart: 05-28-2021 End: 22-37-8738asdzjgwpvmBzhfan Saw II Other [place] [employer] Other Start: 65-31-8425Idtqfntyp for other preprocedural examinationRobert [place] IIFPG [facility] OrthopedicsStart: 21-55-1880Agcsao outpatient visit 40 minutesRobert [place] IIFPG [facility] OrthopedicsStart: 04-28-2021 End: 35-81-5310otaghzicuwQT OUMAR GUNTERFacility:P2Zwfrb: 04-03-2021 End: 20-27-3308zsvakhqrlqMS OUMAR GUNTERFacility:N6Wbwnr: 04-01-2021 End: 25-27-4213qwubnulkowYY MARCIA E BRAUNFacility:I1Lklkh: 02-04-2021 End: 77-90-3508dsosqwnpnePWGFZB H FAWWADFacility:H1 Procedures DateProcedureProcedure DetailPerforming ClinicianStart: 59-76-2747Urhlo X-ray of left wristOumar Gunter MD Work Phone: Start: 17-38-2167Aehbvjuy identified in Sputum by Respiratory cultureMD Oumar Gunter Work Phone: Start: 22-23-3368Zmadgvdlstr observation [Identifier] in Unspecified specimen by Gram stainMD Oumar Gunter Work Phone: Start: 62-39-8081Eukgk Culture 1MD Oumar Gunter Work Phone: Start: 40-82-8326Pixlu Culture 2MD Oumar Gunter Work Phone: Start: 46-00-0136C-ray of left kneeMD Oumar Gunter Work Phone: Start: 22-12-5115Gnkcr X-ray of left femurMD Oumar Gunter Work Phone: Start: 04-85-5957Ibtxk X-ray of left tibia and left fibulaMD Oumar Gunter Work Phone: Start: 84-46-3448J-ray of left kneeMD Oumar Gunter Work Phone: Start: 54-13-2188F-ray of left kneeMD Oumar Gunter Work Phone: Start: 59-32-2173DUR BIOMETRY W/ IOL CALC OU (BOTH EYES)Jennifer Infante MD Work Phone: Start: 02-28-0062M-ray of left kneeMD Oumar Gunter Work Phone: Start: 86-21-0767Nfqwn replacement of left knee joint MD Oumar Gunter Work Phone: Start: 69-05-1042Woywk depression screening assessment Eye Measurements Work Phone: Plan of Treatment DateCare ActivityDetailAuthorStart: 43-07-4254Aicns X-ray of left wristXR wrist LT min 3V*[facility] Townshiptart: 80-82-2535JZ Wrist - left GE 3 ViewsKettering Health Washington Townshiptart: 62-57-6798Xiwhsqo referral [facility] Work Phone: Start: 38-96-5074Mzprijz referralWestern [facility] Work Phone: Start: 98-31-8841Ahkjyhaeffyd myocardial perfusion stress studyNM priscila perf SPECT rest & strKettering Health Washington Townshiptart: 83-44-9754Bgcxpvpvu vaccinationINFLUENZA (Season Ended)[facility]: 07-21-2021 End: 82-48-7474ZpdzbggzlWestern Reserve Hospital Ctr Work Phone: Start: 72-75-2263YNLYA-19 VACCINE (4 - Booster for Pfizer series)COVID-19 VACCINE (4 - Booster for Pfizer series)[facility] Start: 27-31-4708TTUSJLF DIRECTIVE DISCUSSIONADVANCE DIRECTIVE DISCUSSION [facility]otart: 05-20-1294CPWOOCFW SCREENDIABETES SCREENTrinity Health System [facility] Campus Start: 82-92-8453Wganv depression screening assessmentDEPRESSION SCREENING [facility]otart: 13-22-1195WMSA DENSITYBONE DENSITYRegency Hospital Toledotart: 23-07-5316QQMBGRYLN AGE 65 AND OVER WITH 5YR LOOKBACK (#1)PNEUMOVAX AGE 65 AND OVER WITH 5YR LOOKBACK (#1)[facility]: 44-91-0000UWTQYXHS VACCINE (2 of 3)SHINGRIX VACCINE (2 of 3)[facility]otart: 92-20-5471Fuqek microalbumin profileDTAP,TDAP,TD (1 - Tdap)[facility] 1963 ANNUAL PCP TEAM CHRONIC DISEASE VISITANNUAL PCP TEAM CHRONIC DISEASE VISIT [facility]: 93-14-0834MLPTXGNLP C SCREENINGHEPATITIS C SCREENING [facility]: 77-94-0888SYQRSNNPOTUK: 65+ (1 - PCV)PNEUMOCOCCAL: 65+ (1 - PCV)[facility] CampusComprehensive metabolic 2000 panel - Serum or Plasma [facility] HospitalPatient referralBerger Hospital Work Phone: Urine cultureWood County HospitalXR Chest 2 [facility]XR [facility] 2 [facility]XR Ribs - right [facility] Immunizations Immunization DateImmunizationNotesCare DeqswczuMpjjurzl32-33-0843tlzwcqaaa, high dose seasonal, preservative-freeWood County Hospital10-25-2023 influenza, high dose seasonal, preservative-freeElysiaa Lyric Other [employer] Other [id number] virus vaccine, unspecified formulationMD Oumar Gunter Work Phone: [facility]10-14-2022influenza virus vaccine, split virus (incl. purified surface antigen)Oumar Gunter Other [employer] Other [id number] virus vaccine, unspecified formulationMD Oumar Gunter Work Phone: [facility]11-16-2021COVID-19 mRNA, Comirnatjanee (Pfizer)MD Oumar Gunter Work Phone: [facility]10-14-2021influenza virus vaccine, split virus (incl. purified surface antigen)Oumar Gunter Other [employer] Other [id number] virus vaccine, unspecified formulationMD Oumar Gunter Work Phone: [facility]03-04-2021COVID-19 mRNAIon (Pfizer)MD Oumar Gunter Work Phone: [phone]-[facility]02-11-2021COVID-19 mRNAIon (ShangPin)MD Oumar Gunter Work Phone: [phone]09-17-2020influenza virus vaccine, split virus (incl. purified surface antigen)Oumar Gunter Other [place] [employer] Other [id number] virus vaccine, unspecified formulationMD Oumar Gunter Work Phone: [facility]10-17-2019influenza virus vaccine, split virus (incl. purified surface antigen)Oumar Gunter Other [facility] [employer] Other [id number] virus vaccine, unspecified formulationMD Oumar Gunter Work Phone: [facility]09-29-2010zoster vaccine, liveEye Measurements Work Phone: [facility] Payers DatePayer CategoryPayerPolicy [id number] MEDICARE HUMANA MEDICARE PPO [id number] 2021-Present [phone] [address] [address] [place] [address] [id number] 1960Medicare [id number]-pay [id number] [id number] [id number] 2.16.840.1.408688.3.57[id number] 2.16.840.1.332704.3.57[id number] 2.16.840.1.529671.3.57[id number] [id number] [id number] Social History DateTypeDetailFacilityStart: 12-25-2010 End: 29-09-3469Irtrizy smoking status NHISNever smoked tobaccoTrinity Health System West Campus Start: 99-49-1888Jugwuow use and exposureSmokeless tobacco non-userRegency Hospital Toledotart: 07-30-2021 End: 46-23-4319Rzjaebg intakeCurrent drinker of alcohol (finding)[facility]otart: 21-75-8192Sbwulvx SDOH Alcohol Commentvery rareTrinity Health System West Campus Start: 54-11-6873Kos Assigned At BirthFeOhio State University Wexner Medical Centertart: 06-29-2021 End: 47-00-1171Gburyvat to SARS-CoV-2 (event)Not sureRegency Hospital Toledoex Assigned At BirthSex Assigned At BirthNorth [employer] Other Start: 05-09-2024 End: 48-76-8369MdiVppqgl (finding)[facility] Medical Equipment Procedure CodeEquipment CodeEquipment Original TextEquipment IdentifierDates Arthroplasty, knee, total, minimally invasiveOrthopaedic cement, non-medicated ()[id number] FDAStart: 89-86-3698Davmpjxsgdtn, knee, total, minimally invasiveUncoated knee femur prosthesis ()[id number] FDAStart: 88-61-9484Kfeblmfrswbs, knee, total, minimally invasiveTibial insert()[id number] FDAStart: 42-14-4260Vmcgndjyliut, knee, total, minimally invasivePolyethylene patella prosthesis()[id number] FDAStart: 07-21-2021 Arthroplasty, knee, total, minimally invasiveKnee stem ()[id number] FDAStart: 41-09-8801Isxnpyfunkcd, knee, total, minimally invasiveUncoated knee tibia prosthesis, metallic ()[id number] FDAStart: 58-70-0452Bpyryf Nrstm Pls Imp Chrg Kt - [id number]: 60-19-4985Rgr-Of-A-Kind Implant - [id number]: 06-38-5446Wvpwfkd on above:Description: LINEAR ST 70CM 8 CONTACT LEAD QHVLsq-Df-C-Kind Implant - [id number]: 93-58-4232Zlzhmwa on above:Description: CLIK ANCHORKit Stim 50cm Porsha 8 Cntct Ld - [id number]: 32-29-5105Qsct Iol 0d +13 Tony Uv Abs - [id number]: 74-62-8939Ewqcpti on above:Description: -0.39Lens Iol 0d +13 Tony Uv Abs - [id number]: 56-76-6467Vjryvvl on above: Description: -0.48 Goals DatePatient GoalDesired Activity/State Clinical Notes 02-05-2021 to 12-22-2024 Note Date & HbrtWyxjWnaxlkut46-73-3036 Evaluation note* Diagnosis Onset Date Resolution Status Admit Date 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 acuteSeptember 2024 9:53amCoughacuteOctober 2024 2:10pmModerate COPD (chronic obstructive pulmonary disease)acuteOctober 2024 2:10pmRib pain on right sideacuteOctober 2024 2:10pm [facility] Work Phone: 1([phone] 368-481804-01-2025 Evaluation note* Diagnosis Onset Date Resolution Status Admit Date Arthritis of carpometacarpal (CMC) joint of left thumb acuteApril 2024 1:57pmArthritis of jiaznqkx-kqupgkjjx-hiuwhoflu joint of left handacuteApril 2024 1:57pmLeft hand painacuteApril 2024 1:57pm ConfusionacuteApril 2024 10:55amCoughacuteApril 2024 10:55amFall acuteApril 2024 10:55amRib fractureacuteApril 2024 10:55amCHF (congestive heart failure)acuteMay 2024 1:31pmEdemaacuteMay 2024 1:31pm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acuteJune 2024 10:02am [facility] Work Phone: 1(121) 908-518103-28-2025 Evaluation note* Diagnosis Onset Date Resolution Status Admit Date 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 acuteMarch 2024 9:46amArthritis of carpometacarpal (CMC) joint of left thumbacuteApril 2024 1:57pmArthritis of cjasjuom-unvvajtqn-ygfavymwe joint of left handacuteApril 2024 1:57pmLeft hand painacuteApril 2024 1:57pm ConfusionacuteApril 2024 10:55amCoughacuteApril 2024 10:55amFall acuteApril 2024 10:55amRib fractureacuteApril 2024 10:55amCHF (congestive heart failure)acuteMay 2024 1:31pmEdemaacuteMay 2024 1:31pm [facility] Work Phone: 1(461) 872-583101-29-2025 Evaluation note* Diagnosis Onset Date Resolution Status Admit Date 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 acuteJanuary 2024 9:25amConstipationacuteJanuary 2024 9:25am Encounter for palliative careacuteJanuary 2024 9:25am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acuteMarch 2024 9:46amNeuropathic pain, leg, bilateral acuteMarch 2024 9:46am [facility] Work Phone: 1([phone]) 312-405801-29-2025 Evaluation note* Diagnosis Onset Date Resolution Status Admit Date 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 acuteJanuary 2024 9:25amConstipationacuteJanuary 2024 9:25am Encounter for palliative careacuteJanuary 2024 9:25am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acuteMarch 2024 9:46amArthritis of carpometacarpal (CMC) joint of left thumbacuteApril 2024 1:57pmArthritis of kmzwouwc-gxjuywftn-zculgmiob joint of left handacuteApril 2024 1:57pmLeft hand painacuteApril 2024 1:57pm [facility] Work Phone: 1(535) 312-532901-29-2025 Evaluation note* Diagnosis Onset Date Resolution Status Admit Date 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 acuteJanuary 2024 9:25amConstipationacuteJanuary 2024 9:25am Encounter for palliative careacuteJanuary 2024 9:25am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acuteMarch 2024 9:46amArthritis of carpometacarpal (CMC) joint of left thumbacuteApril 2024 1:57pmArthritis of xaxflvko-otakmkfji-hksneptlv joint of left handacuteApril 2024 1:57pmLeft hand painacuteApril 2024 1:57pmConfusionacuteApril 2024 10:55amCough acuteApril 2024 10:55amFallacuteApril 2024 10:55amRib fractureacute Catherine 2024 10:55am [facility] Work Phone: 1(565) 950-169312-09-2024 Evaluation note* Diagnosis Onset Date Resolution Status Admit Date Chronic thoracic back pain acuteDecember 2023 11:41amLeft wrist painacuteDecember 2023 11:41am Medicare annual wellness visit, subsequentacuteDeceer 2023 11:41am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acuteJanuary 2024 9:25amConstipationacute Imelda 2024 9:25amEncounter for palliative careacuteJanuary 2024 9:25am [facility] Work Phone: 1(506) 535-642302-06-2024 Evaluation note* Encounter Date Diagnosis Assessment Notes Treatment Notes Treatment Clinical Notes Apr, Neuropathic pain, leg, bilateral (ICD-10 - G57.93) [facility] Other 12-13-2023 Evaluation note* Encounter Date Diagnosis [...] from Cardiology - followup in 1 yr. [facility] Other 12-12-2023 Evaluation note* Encounter Date Diagnosis Assessment Notes Treatment Notes Treatment Clinical Notes Feb, Pulmonary HTN (ICD-10 - I27.20) Ms Tang is a 77yoF with PMH of hypertension, osteoarthritis, repots hx of CHF in 2002 to due to stress, hx of L breast cancer s/p bilateral mastectomy in 2009-no chemo or radiation. Referred Juan Jose Gunter for abnormal echocardiogram. Echo preformed at [facility] 12/29/2022 showed EF 55-60% with normal diastolic function. Normal RV size and function with RVSP of 37 mmHg.. Patient states she has experienced SOB and diaphoresis for approximately the last 6 months, denies CP or palpitations, BLE edema, orthopnea, PND or weight gain. 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 [...] (chronic obstructive pulmonary disease) (ICD-10 - J44.9) [facility] Other 12-06-2023 Evaluation note* Encounter Date Diagnosis Assessment Notes Treatment Notes Treatment Clinical Notes Feb, Neuropathic pain, leg, bilateral (ICD-10 - G57.93) [facility] Other 11-20-2023 Evaluation note* Encounter Date Diagnosis Assessment Notes Treatment Notes Treatment Clinical Notes Jan, Pulmonary HTN (ICD-10 - I27.20) [facility] Other 11-13-2023 Evaluation note* Encounter Date Diagnosis Assessment Notes Treatment Notes Treatment Clinical Notes Jan, Pulmonary HTN (ICD-10 - I27.20) Ms Tang is a 77yoF with PMH of hypertension, osteoarthritis, repots hx of CHF in 2002 to due to stress, hx of L breast cancer s/p bilateral mastectomy in 2009-no chemo or radiation. Referred byDr Oumar Gunter for abnormal echocardiogram. Echo preformed at [facility] 12/29/2022 showed EF 55-60% with normal [...] (ICD-10 - R06.02) Jan,iaphoresis (ICD-10 - R61) [facility] Other 11-06-2023 Evaluation note* Encounter Date Diagnosis Assessment Notes Treatment Notes Treatment Clinical Notes Jan, Neuropathic pain, leg, bilateral (ICD-10 - G57.93) [facility] Other 10-05-2023 Evaluation note* Encounter Date Diagnosis Assessment Notes Treatment Notes Treatment Clinical Notes Dec, Acute thoracic back pain, unspecified back pain laterality (ICD-10 - M54.6) [facility] Other 07-06-2023 Evaluation note* Encounter Date Diagnosis Assessment Notes Treatment Notes Treatment Clinical Notes Sep, Acute thoracic back pain, unspecified back pain laterality (ICD-10 - M54.6) [facility] Other 06-13-2023 Evaluation note* Encounter Date Diagnosis [...] that present medications do control her symptoms. 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 The Medrol Dosepak seem to help her significantly with the inflammation. She can continue activities as tolerated and continue working with physical therapy as recommended. Follow-up in 4 weeks for repeat examination and long standing x-rays. 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 We will get her on a Medrol Dosepak to try and help with some of this inflammation I think that is going on in that knee. I will see her back in 2 weeks just to recheck to make sure she is continuing to improve. Patient may continue activities as tolerated. Continue PT as recommended. Continue taking vfgs-mec-piqxyhg anti-inflammatories as needed for assistance with swelling and pain associated with the operative extremity. Follow-up in 2 for a recheck and then 4 weeks for repeat examination and long standing x-rays. [facility] Other 05-25-2022 NoteHNO ID: [id number] Author: Mary Pacheco OD Service: ? 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 Zipline removed. [...] 3 view x-rays of the left knee. [facility] Other 05-12-2022 NoteHNO ID: [id number] Author: Mary Pacheco OD Service: ? Author Type: FEDERAL DISTRICT CLERK Type: Progress Notes Filed: 08/07/2021 9:08 AM [...] Mary Pacheco, OD August 07, 2021 8:59 [facility]05-12-2022 History of Present illness Narrative* Mary Pacheco, [...] 07, 2021 8:59 AM documented in this encounterTr[facility]05-04-2022 NoteHNO ID: [id number] Author: PARK Cedeño Service: ? Author Type: Production Welding Supervisor Type: Progress Notes Filed: 07/30/2021 10:04 AM Note Text: CONFIRM AIM PLANO BOTH EYES. IQ IOL PATIENT AWARE THAT HE WILL NEED GLASSES FOR ALL DISTANCES. [facility] History of Present illness Narrative* PARK Cedeño - 07/30/2021 10:00 AM EDT CONFIRM AIM PLANO BOTH EYES. IQ IOL PATIENT AWARE THAT HE WILL NEED GLASSES FOR ALL DISTANCES. PARK Cedeño documented in this encounterTrinity [facility]05-04-2022 Instructions* Patient Instructions* Shikha Kate APRN.JIN - 07/30/2021 9:23 AM EDT PATIENT PREOPERATIVE INSTRUCTIONS Jennifer Infante V, MD has scheduled you for your procedure at this surgery center: [place]: [phone] --[address] [place] [address]. Please read below carefully for your personalized [...] Advance Directive, please fax a copy to [phone] or email to for it to be [...] day. Shikha Kate APRN.JIN documented in this encounterTr[facility]05-04-2022 History and physical note * Shikha Kate [...] with implants PAST SURGICAL HISTORY OF SCS ([employer]) TOTAL KNEE REPLACEMENT Left FAMILY HISTORY [...] fevers. 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 No neurological symptoms or problems. Respiratory: No history of current cough or dyspnea, or pneumonia in the past 6 weeks. No history of respiratory/pulmonary symptoms or problems. Cardiovascular: No history of HTN requiring medication, no history of angina, CHF, LA, cardiac surgery or stents. Denies rest pain, gangrene or revascularization/amputation for PVD. No history of cardiovascular symptoms or problems. +HLD GI: No history of GI symptoms or problems. No history of esophageal varices, recent ascites, or ETOH greater than 2 drinks per day. : No history of dysuria, frequency or incontinence,, stones or chronic kidney disease +urgency CLINICAL RADIOLOGIST: Negative for abnormal vaginal bleeding, abnormal vaginal [...] 2021 TIME: 8:51 AM documented in this encounterTr[facility]04-15-2022 Evaluation note* Encounter Date Diagnosis Assessment Notes [...] patient could proceed with surgery safely. The mail manager was vital for surgery timing and [...] plans. Prolonged services time spent: 32 minutes [facility] Other 04-14-2022 Evaluation note* Encounter Date Diagnosis Assessment Notes Treatment Notes Treatment Clinical Notes Jun, Age-related osteopor osis without current pathological fracture (ICD-10 - M81.0) [facility] Other 04-08-2022 Evaluation note* Encounter Date Diagnosis [...] pain control. Joints Meeting Checklist - Pharmacy: [facility] med to bed - Approach/Technique: ALICIA - [...] elected to proceed with the above surgery. 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 [facility] Other 03-01-2022 NoteHNO ID: [id number] Author: Jennifer Infante V, MD Service: ? [...] both eyes, left eye first - Aim: [place] Both eyes [monocular precautions following Cataract extraction] [...] and surgery - Comanage with Dr Dang; [facility] POD #1 Cataract Presurgical Documentation Cataract: Both [...] patient was offered a surgery/procedure at a [facility] facility. The surgeon/proceduralist and patient have discussed [...] Jennifer INFANTE MD May 27, 2021 12:53 [facility]03-01-2022 NoteHNO ID: [id number] Author: Scout Gayle OD Service: ? Author Type: FEDERAL DISTRICT CLERK Type: Progress Notes Filed: 05/27/2021 1:02 PM [...] Scout Gayle OD May 27, 2021 12:15 [facility]11-10-2021 NotePROCEDURE: XR KNEE LT 3V HISTORY: [...] Electronically authenticated by: CIARRA [place] Date: 2021-02-05 16:48[facility]* Diagnosis Combined forms of age-related cataract of both eyes Other and combined forms of senile cataract Combined forms of age-related cataract of both eyes Other and combined forms of senile cataract Combined forms of age-related cataract of both eyes Other and combined forms of senile cataract documented in this encounter [facility] note* Diagnosis Pre-op evaluation- Primary Preoperative examination, unspecified Cataract of both eyes, unspecified cataract type Other hyperlipidemia Complex regional pain syndrome type 1, affecting unspecified site Combined forms of age-related cataract of both eyes Other and combined forms of senile cataract Combined forms of age-related cataract of both eyes Other and combined forms of senile cataract documented in this encounter [facility] note* Diagnosis S/P cataract extraction and insertion of intraocular lens, left- Primary 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 Other and combined forms of senile cataract documented in this encounter [facility] note* Diagnosis S/P cataract extraction and insertion of intraocular lens, left- Primary 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 documented in this encounter [facility] noteNo InformationNort The Grounds Keeper Other Evaluation noteNo assessment information available [facility] Work Phone: Evaluation note* Diagnosis Onset Date Resolution Status Acute kidney injury acuteAcute metabolic encephalopathyacuteChronic disease anemiaacuteMultifocal pneumoniaacuteSepsisacute [facility] Work Phone: Evaluation note* Diagnosis Onset Date Resolution Status Admit Date 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 acuteSeptember 2024 9:53am [facility] Work Phone: History general Narrative - Reported* Type Description Date Medical History hypertension Medical HistoryhypercholesterolemiaMedical HistoryneuropathyMedical History macular degenerationSurgical HistoryC [id number] Historybilateral [id number] [facility] Other History general Narrative - Reported* Type Description Date Medical History hypertension Medical HistoryhypercholesterolemiaMedical HistoryneuropathyMedical History macular degenerationSurgical HistoryC [id number] Historybilateral amxwqebmkd1138Sdifwzpo HistoryLTKA [facility] Other Hiswgte general Narrative - Reported* Type Description Date Medical History hypertension Medical HistoryhypercholesterolemiaMedical HistoryneuropathyMedical History macular degenerationSurgical HistoryC [id number] Historybilateral kkvlhldnwv6541Vgojqgos HistoryLTKAHospitalization Historysee surgical history [facility] Other Reason for referral (narrative)No reason for referral information availableThe [facility] Work Phone: Advance Directives TypeDate RecordedPatient RepresentativeExplanationAdvance [...] the event of a Fluress shortage, administer Levels-Fluor 1 drop intoboth eyes as directed for [...] 262024 9:25am 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 [facility] 2024 9:46am Neuropathic pain, leg, bilateral May [...] 262024 9:25am 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 [facility] 2024 9:46am Arthritis of carpometacarpal (CMC) joint [...] Amb Documentation July 18, 2024 1:2 7pm [facility] ER f/u fall July 25, 2024 10: 55am Reason for Visit Admit Date 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 [facility] hmam 2024 9:25am Constipation April 26, 2024 9 :25am Encounter for palliative care April 262024 9:25am 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 [facility] 2024 9:46am Arthritis of carpometacarpal (CMC) joint [...] Admit Date 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 [facility] 2024 9:46am Arthritis of carpometacarpal (CMC) joint of left thumb June 27, 2024 1:57pm Arthritis of nphwcdlq-parswgmwb-jjzzcxmw d joint of left hand June 27, [...] thumb June 27, 2024 1:57pm Arthritis of rkhqrwvy-zibjnzcem-inzturic d joint of left hand June 27, [...] for Referral Reason *03/16 Dr Reed in [place] Diagnosis 1 Moderate COPD (chron ic obstructive pulmonary disease) (J44.9) Referral Organization [facility] Cardiology Referring Provider First Name Referring Provider Last Name Myra Referring Provider Specialty Cardiovascu lar Disease Referred Organization Unknown Facility Referred Provider Larry Reed Referred Provider Specialty Pulmonary Di seases Referral Priority Routine General Notes Macy Mccarthy 05:34:06 PM >received today, attachments made, referral faxed Reason *09/22 [place] office - word finding issues. MRI pending. 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) Referral Organization [facility] Geronimo Cunningham C heri Referring Provider First Name Oumar Referring Provider Last Name Lyric Referring Provider Specialty Family [facility] Referred Organization [facility] Referred Provider Curt Espinalle Ref[address] [place], [place],[address] Referred Provider Specialty Neurology Referral Priority Routine [...] or prosecute any alcohol or drug abuse patient.[facility] CampusIn the event this information is protected by the Federal Confidentiality of Alcohol and Drug Abuse Patient Records regulations: The Federal rules restrict any use of the information to criminally investigate or prosecute any alcohol or drug abuse patient.[facility] CampusIn the event this information is protected by the Federal Confidentiality of Alcohol and Drug Abuse Patient Records regulations: The Federal rules restrict any use of the information to criminally investigate or prosecute any alcohol or drug abuse patient.[facility] CampusIn the event this information is protected by the Federal Confidentiality of Alcohol and Drug Abuse Patient Records regulations: The Federal rules restrict any use of the information to criminally investigate or prosecute any alcohol or drug abuse patient.[facility] Reason for Visit (unrecogniz ed section and content) ReasonCommentsPre-Op ExamReasonCommentsAnesthesia ConsultReasonCommentsPost-op (Ophthalmology) Left EyeOne day s/p cataract surgery with IOLReasonCommentsPost- op (Ophthalmology) Left Eyes/p Phaco + PC IOL OS [id number] / ProceduresReferred By ContactReferred To ContactASC [facility] Diagnoses Combined forms of age-related cataract of both eyes Procedures XCAPSL CTRC RMVL INSJ IO LENS PROSTH W/O ECP OPH BMTRY PRTL COHER INTRFRMTRY IO LENS PWR LEO PHACOEMULSIFICATION CATARACT IMPLANT INTRAOCULAR LENS W/O ENDOSCOPIC CYCLOPHOTOCOAGULATION OPHTHALMIC BIOMETRY BY PARTIAL COHERENCE INTERFEROMETRY W/INTRAOCULAR LENS POWER CALCULATION [facility] [address] [place] [address] Referral IDStatusReasonStart DateExpiration DateVisits RequestedVisits [id number] Care Teams (unrecognized sec tion and content) [...] Provider Active Start: May 27, 2023 CARMEN CrenshawAAtteton valley hospitalmikey ProviderActiveStart: May 27, 2023 Team Status: Active [...] DateEnd Date Oumar Gunter MD [address] [place] [address] PCP - GeneralFamily Practice12/25/10Team MemberRelationshipSpecialtyStart DateEnd Date Oumar Gunter MD [address] [place] [address] PCP - GeneralFamily Practice12/25/10Team MemberRelationshipSpecialtyStart DateEnd Date Oumar Gunter MD [address] [facility] [place] [address] PCP - GeneralFamily Practice12/25/10Team MemberRelationshipSpecialtyStart DateEnd Date Oumar Gunter MD [address] [place] [address] (work) PCP - [facility]12/25/10 Team Status: Inactive Member Role Status Dates Oumar Gunter MD Primary Care Provider Active Godfrey Guo ProviderActive Team Status: Inactive Member Role Status Nomi Gunter MD Primary Care Provider Active Godfrey Guo Provider, Referring ProviderActive Team Status: Active Member Role Status Dates Linda Renteria MD Sql Server Bi Developer Active Trinh [facility]Ex[facility] ProviderActive Team Status: Active Member Role Status [...] Member Role/Relationship Status Dates Linda Renteria MD Sql Server Bi Developer Active FOR[facility]Reg[facility] ProviderActive Team Status: Inactive Member Role/Relationship [...] section and content) DATE CREATED AUTHOR 08/21/2021 [facility] DATE CREATED AUTHOR AUTHOR'S ORGANIZ ATION 02/03/2022 [facility] DATE CREATED AUTHOR AUTHOR'S ORGANIZ ATION 06/28/2024 [facility] Goals (unrecognized section and content) [...] BE BASED ON THE PRIMARY CLINICAL RECORDS. [employer] [facility]. provides no warranty or guarantee of the accuracy or completeness of information in this document.
--- NOTE | 2025-02-15 08:39 | ECG_ITS ---
The [facility] Test Date: 2025-02-15 Pat Name: DARLENE TANG Department: Room: - Gender: Female Quality Audit Representative: : 1945 Requested By: OUMAR GUNTER Order Number: [id number] Reading MD: BESS ORTIZ M.D. Measurements Intervals [place] Rate: 111 P: 101 TX: 166 QRS: -60 QRSD: 92 T: 76 QT: 318 QTc: 384 Interpretive Statements 1120 Sinus tachycardia 2630 Left anterior fascicular block 8003 Consistent with pulmonary disease 9150 abnormal ECG Compared to ECG 07/26/2024 04:15:15 No significant changes Electronically Signed On 02-15-2025 19:19:35 EST by BESS ORTIZ M.D.
--- NOTE | 2025-02-15 08:39 | XR_ITS ---
The [address] [address] Patient Name: DARLENE TANG MRN: [id number] date: 1945 Sex: F Assigned Patient Location: ER Current Patient Location: ER Accession/Order Number: [id number] Exam Date: 02/15/2025 08:52 Report Date: 02/15/2025 09:08 At the request of: ROYCE ANDRADE MD Procedure: XR chest 1V PORTABLE AP ERECT CHEST 0855 hours CLINICAL HISTORY: Shortness of breath COMPARISON: 02/12/2025 The visualized portions of the cardiac and mediastinal contours are similar. The left lung remains clear. There is continued pleural-parenchymal opacity at the lower lung on the right, not significantly changed. No pneumothorax is seen. The osseous structures are intact. There is levoscoliotic curvature and endplate spurring at the spine. Patient has a dorsal stimulator. XR/XR chest 1V IMPRESSION: SIMILAR RIGHT-SIDED PLEURAL-PARENCHYMAL CHANGE Impression dictated by: Qi Espinoza M.D. 02/15/2025 9:08 AM Dictation Location: [place] [address] Electronically authenticated by: [id number] Y Date: 02/15/2025 09:08
--- NOTE | 2025-02-15 08:40 | ED.GENADUL1 ---
HPI HPI - General Adult General Chief complaint: Shortness of Breath/Dyspnea Stated complaint: sob, weakness Time Seen by Provider: 02/15/25 08:35 Source: patient Mode of arrival: Wheelchair Limitations: no limitations History of Present Illness HPI narrative: 79-year-old female presented to the emergency department for shortness of breath. It began today. She has been having some pain on the right side of her chest and had some chest x-rays performed which she states showed an abnormality. In reviewing the report it shows a pleural-based density on the right side. She was scheduled to have a CAT scan of her chest today. No fever or productive cough and she does not have any pain today. Related Data Home Medications ?Medication ?Instructions ?Recorded ?Confirmed duloxetine 30 mg capsule,delayed 30 mg PO QDAY 05/25/23 02/15/25 release lisinopril 5 mg tablet 5 mg PO DAILY 05/25/23 02/15/25 duloxetine 60 mg capsule,delayed 60 mg PO DAILY 05/26/23 02/15/25 release albuterol sulfate 90 mcg/actuation 2 puff inhalation Q4H PRN 07/17/24 02/15/25 aerosol inhaler shortness of breath or wheezing gabapentin 300 mg capsule 300 mg PO DAILY 07/17/24 02/15/25 pravastatin 10 mg tablet 10 mg PO DAILY 07/17/24 02/15/25 Previous Rx's ?Medication ?Instructions ?Recorded ibuprofen 800 mg tablet 800 mg PO Q8H PRN pain #20 tabs 07/17/24 morphine 15 mg tablet,extended 15 mg PO BID 5 days #10 tabs 07/28/24 release Allergies Allergy/AdvReac Type Severity Reaction Status Date / Time No Known Drug Allergies Allergy Verified 07/25/24 15:32 Opioid HPI Opioid Management Most Recent Opioid Data: Last Pain Scale 7 07/28/24, 10:10 Last Pain Intensity 0 05/29/23, 10:55 Last ORT Total Score 0 07/25/24, 21:41 Last ORT Risk Category Low Risk 07/25/24, 21:41 Review of Systems ROS Narrative A ten point review of systems is negative except as noted above. PFSH PFS Medical History (Updated 02/15/25 @ 13:29 by Antwan Fernandez MD) COPD (chronic obstructive pulmonary disease) ?J44.9 - Chronic obstructive pulmonary disease, unspecified (ICD-10) HTN (hypertension) ?I10 - Essential (primary) hypertension (ICD-10) Acute respiratory failure with hypoxia ?J96.01 - Acute respiratory failure with hypoxia (ICD-10) Acute metabolic encephalopathy ?G93.41 - Metabolic encephalopathy (ICD-10) Multifocal pneumonia ?J18.9 - Pneumonia, unspecified organism (ICD-10) Sepsis ?A41.9 - Sepsis, unspecified organism (ICD-10) Acute kidney injury ?N17.9 - Acute kidney failure, unspecified (ICD-10) Depression ?F32.A - Depression, unspecified (ICD-10) OAB (overactive bladder) ?N32.81 - Overactive bladder (ICD-10) Chronic pain ?G89.29 - Other chronic pain (ICD-10) Congestive heart failure ?I50.9 - Heart failure, unspecified (ICD-10) Breast cancer ?C50.919 - Malignant neoplasm of unspecified site of unspecified female breast (ICD-10) Surgical History H/O section ?Z98.891 - History of uterine scar from previous surgery (ICD-10) S/P mastectomy, bilateral ?Z90.13 - Acquired absence of bilateral breasts and nipples (ICD-10) Family History (Updated 05/26/23 @ 03:16 by Loraine Cade RN) Father Family history of CHF (congestive heart failure) Sister Family history of COPD (chronic obstructive pulmonary disease) Family history of cancer Brother Family history of stroke Social History (Updated 05/26/23 @ 03:17 by Loraine Cade RN) Within the past year, how often did you have a drink containing alcohol: never Score interpretation: A score less than 3 is consistent with normal alcohol consumption. Smoking status: Never smoker Non-prescribed substance use: denies use Highest level of school completed/degree received: high school graduate Little interest or pleasure in doing things: not at all Feeling down, depressed, or hopeless: not at all Exam Narrative Exam Narrative: Nurses note and vital signs reviewed General:The patient appears well and in no apparent distress.Patient is resting comfortably on cart. Skin:Warm, dry, no pallor noted.There is no rash noted. Head:Normocephalic, atraumatic Eye: Normal conjunctiva, no drainage Ears, Nose, Mouth, and Throat: oral mucosa is moist. Nares patent. Cardiovascular:Regular Rate and Rhythm Respiratory:Patient is in no distress, no accessory muscle use, lungs are clear to auscultation, no wheezing, rales or rhonchi Back:non-tender GI: Soft and nontender Musculoskeletal: The patient has no evidence of calf tenderness, no pitting edema, symmetrical pulses noted bilaterally Neurological:A&O, normal speech Psychiatric:Cooperative Constitutional Vital Signs, click to edit/add: Last Vital Signs Temp 97.9 F 02/15/25 07:49 Pulse 111 H 02/15/25 16:00 Resp 25 H 02/15/25 16:00 BP 184/89 H 02/15/25 11:31 Pulse Ox 95 02/15/25 16:00 O2 Del Method Nasal Cannula 02/15/25 07:59 O2 Flow Rate 2 02/15/25 07:59 Course Vital Signs Vital signs: Vital Signs Temperature 97.9 F 02/15/25 07:49 Pulse Rate 115 H 02/15/25 07:49 Respiratory Rate 22 H 02/15/25 07:49 Blood Pressure 182/95 H 02/15/25 07:49 Pulse Oximetry 88 L 02/15/25 07:49 Oxygen Delivery Method Room Air 02/15/25 07:49 Temperature 97.9 F 02/15/25 07:49 Pulse Rate 111 H 02/15/25 16:00 Respiratory Rate 25 H 02/15/25 16:00 Blood Pressure 184/89 H 02/15/25 11:31 Pulse Oximetry 95 02/15/25 16:00 Oxygen Delivery Method Nasal Cannula 02/15/25 07:59 Oxygen Delivery Flow Rate 2 02/15/25 07:59 Medical Decision Making MDM Narrative Medical decision making narrative: CT shows no pulmonary embolism but shows a large right-sided pleural effusion. She has no history of a pleural effusion. There is no current evidence of congestive heart failure. This will likely require pleurocentesis. Case discussed with Dr. Mo and we have agreed that we will transfer the patient to [facility]. Spoken to Dr. Mejia at [facility] who accepts the patient. She is agreeable and stable for transfer. Differential Diagnosis Differential Diagnosis: Pneumonia, pleural effusion, pneumothorax, PE Lab Data Lab results reviewed: Yes I reviewed the patient's lab results Labs: Lab Results 02/15/25 Range/Units 08:45 WBC 9.8 (4.0-11.0) 10^3/uL RBC 4.06 L (4.20-5.40) 10^6/uL Hgb 12.5 (12.0-16.0) g/dL Hct 39.1 (36.0-48.0) % MCV 96.3 (81.0-99.0) fL MCH 30.8 (26.7-34.0) pg MCHC 32.0 (29.9-35.2) g/dL RDW 12.2 (11.0-15.0) % Plt Count 299 (150-450) 10^3/uL MPV 9.8 (9.5-13.5) fL Neut % (Auto) 82.9 H (43.0-75.0) % Lymph % (Auto) 10.2 L (20.5-60.0) % [place] % (Auto) 5.9 (1.7-12.0) % Eos % (Auto) 0.2 L (0.9-7.0) % Baso % (Auto) 0.4 (0.2-2.0) % Neut # (Auto) 8.1 H (1.4-6.5) 10^3/uL Lymph # (Auto) 1.0 L (1.2-3.8) 10^3/uL [place] # (Auto) 0.6 (0.3-0.8) 10^3/uL Eos # (Auto) 0.0 (0.0-0.7) 10^3/uL Baso # (Auto) 0.0 (0.0-0.1) 10^3/uL Abs Immat Gran (auto) 0.04 H (0.00-0.03) 10^3/uL Imm/Tot Granulo (auto) 0.4 (0.0-0.5) % Sodium 142 (136-145) mmol/L Potassium 4.9 (3.5-5.1) mmol/L Chloride 104 (98-107) mmol/L Carbon Dioxide 30.6 (21.0-32.0) mmol/L Anion Gap 12.3 BUN 28.0 H (7.0-18.0) mg/dL Creatinine 1.09 H (0.55-1.02) mg/dL Est GFR ( Amer) 59 L (>=60 mL/min/1.73m^2) Est GFR (Non-Af Amer) 48 L (>=60 mL/min/1.73m^2) BUN/Creatinine Ratio 25.7 Glucose 153 H (74-106) mg/dL Calcium 9.9 (8.5-10.1) mg/dL Troponin I High Sens 22.9 (4.0-51.3) pg/mL Imaging Data Chest x-ray: Radiologist's impression: ITS Impressions Chest X-Ray 02/15/25 08:39 IMPRESSION: SIMILAR RIGHT-SIDED PLEURAL-PARENCHYMAL CHANGE Impression dictated by: Qi Espinoza M.D. 02/15/2025 9:08 AM Dictation Location: [place] [address] Electronically authenticated by: [id number] Y Date: 02/15/2025 09:08 Chest CTA 02/15/25 11:57 IMPRESSION: NO EVIDENCE OF ACUTE PULMONARY EMBOLISM. LARGE RIGHT-SIDED PLEURAL EFFUSION WITH CONSOLIDATIVE CHANGES OF THE RIGHT LUNG. Impression dictated by: Da Garcia Jr., D.O. 02/15/2025 12:37 PM Dictation Location: [place] [address] Electronically authenticated by: [id number] Y Date: 02/15/2025 12:37 ECG Data Attestation: I personally reviewed and interpreted this ECG as follows: (EKG my interpretation shows sinus rhythm with a rate of 111 and no acute change) Discharge Plan Discharge Chief Complaint: Shortness of Breath/Dyspnea Clinical Impression: Pleural effusion, right, Hypoxemia Patient Disposition: [facility] Time of Disposition Decision: 13:27 Discharge Location: [facility] Condition: Fair Mode of Transportation: Private Vehicle
[2025-02-15 08:53] LABS: Hematocrit 39.1 % (36.0-48.0); Hemoglobin 12.5 g/dL (12.0-16.0); Immature Granulocytes Abs Auto 0.04 10^3/uL (0.00-0.03); Immature Granulocytes Pct Auto 0.4 % (0.0-0.5); Lymphocytes Absolute Auto 1.0 10^3/uL (1.2-3.8); Mean Corpuscular HGB Conc 32.0 g/dL (29.9-35.2); Mean Corpuscular Hemoglobin 30.8 pg (26.7-34.0); Mean Corpuscular Volume 96.3 fL (81.0-99.0); Platelet Count 299 10^3/uL (150-450); Red Blood Count 4.06 10^6/uL (4.20-5.40); White Blood Count 9.8 10^3/uL (4.0-11.0)
[2025-02-15 09:22] LABS: Anion Gap 12.3; Blood Urea Nitrogen 28.0 mg/dL (7.0-18.0); Calcium 9.9 mg/dL (8.5-10.1); Carbon Dioxide 30.6 mmol/L (21.0-32.0); Chloride 104 mmol/L (98-107); Estimated GFR (African America 59 (>=60 mL/min/1.73m^2); Estimated GFR (Non-African Ame 48 (>=60 mL/min/1.73m^2); Glucose 153 mg/dL (74-106); Potassium 4.9 mmol/L (3.5-5.1); Sodium 142 mmol/L (136-145)
--- NOTE | 2025-02-15 11:57 | CT_ITS ---
[address] [address] Patient Name: DARLENE TANG MRN: [id number] date: 1945 Sex: F Assigned Patient Location: ER Current Patient Location: Accession/Order Number: [id number] Exam Date: 02/15/2025 11:57 Report Date: 02/15/2025 12:37 At the request of: ROYCE ANDRADE MD Procedure: CT angio chest CT ANGIOGRAM OF THE CHEST, PULMONARY EMBOLISM PROTOCOL: CLINICAL INFORMATION: Shortness of breath, abnormal chest x-ray. COMPARISON: CT chest 08/26/2023 chest x-ray 02/15/2025 TECHNIQUE: Following intravenous injection of contrast CT scans of the chest were obtained using pulmonary embolism protocol. Coronal and sagittal reconstructed images, as well as volume rendered CT pulmonary angiographic images were also submitted.The CT exam was performed using one or more of the following dose reduction techniques: Automated exposure control, adjustment of the MA and/or Kv according to patient size, or use of the iterative reconstruction technique. FINDINGS: Pulmonary Vasculature: Contrast bolus is adequate for evaluation of pulmonary embolism. Pulmonary trunk appears nondilated. No filling defects are identified to suggest pulmonary embolism. Mediastinum : Thoracic aorta is normal in caliber. No pericardial effusion. No lymphadenopathy. The esophagus is grossly unremarkable. Lungs: Large right-sided pleural effusion with consolidative changes. Left lung demonstrates mild atelectasis/scarring. No pneumothorax. Upper abdomen: No acute findings Soft tissue/bones: Soft tissues surrounding the chest wall demonstrate no acute findings. Osseous structures demonstrate degenerative change. CT/CT angio chest IMPRESSION: NO EVIDENCE OF ACUTE PULMONARY EMBOLISM. LARGE RIGHT-SIDED PLEURAL EFFUSION WITH CONSOLIDATIVE CHANGES OF THE RIGHT LUNG. Impression dictated by: Da Garcia Jr., D.O. 02/15/2025 12:37 PM Dictation Location: [place] [address] Electronically authenticated by: [id number] Y Date: 02/15/2025 12:37
--- NOTE | 2025-02-15 19:11 | PC.NURSE ---
EMS here for transport.
== END 2025-02-15 19:10 | disposition short-term general hospital (02) ==
PROVIDERS: Emergency Provider Emergency Medicine; PCP Family Medicine
DX: J90 Pleural effusion, not elsewhere classified (principal); R09.02 Hypoxemia
CPT/HCPCS: 36415; 71045; 71275; 80048; 84484; 85025; 93005; 99285; Q9967

== ENCOUNTER 2025-03-08 10:31 | Outpatient (OUT) | payer MEDICARE, SELFPAY ==
--- OUTSIDE RECORDS SUMMARY | 2025-02-26 05:47 | XMS_ITS | Continuity of Care Document ---
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 Operator Name Role Phone Sonia Pulliam MD Primary Care Provider Maria Victoria Uribe APRN Attending Provider [phone] Sonia Pulliam MD Attending Provider Edmund Herman MD Admit Provider Amy Olea MD Other Provider Carlos Simmons DO Other Provider Juan Kate MD Attending Provider Nina Paulino CMA Attending Provider [facility] Care Teams Patient Care Team Team Status: Active Member Role/Relationship Status Dates Linda Renteria MD Graduate Advisor Active Corona Rosenthal Care ProviderActive Visit Care Team Team Status: Inactive Member Role/Relationship Status Dates Sonia Pulliam MD Primary Care Provider Active Start: December 22, 2024 End: December 22, 2024Jose Francisco Riley ProviderActiveStart: December 22, 2024 End: December 22, 2024 Visit Care Team Team Status: Inactive Member Role/Relationship Status Dates Sonia Pulliam MD Primary Care Provider Active Start: January 25, 2025 End: January 25, 2025Godfrey Rosenthal ProviderActiveStart: January 25, 2025 End: January 25, 2025 Visit Care Team Team Status: Active Member Role/Relationship Status Dates Sonia Pulliam MD Primary Care Provider Active Start: February 15, 2025 Bernadette Rosenthalending ProviderActiveStart: February 15, 2025 Visit Care Team Team Status: Active Member Role/Relationship Status Dates Sonia Pulliam MD Primary Care Provider Active Start: February 15, 2025 Edmund Herman , MDAdmit ProviderActiveStart: February 15, 2025 Amy Olea MDOther ProviderActiveStart: February 15, 2025 Carlos Simmons DOOther ProviderActiveStart: February 15, 2025 Juan Kate MDAttending ProviderActiveStart: February 15, 2025 Visit Care Team Team Status: Active Member Role/Relationship Status Dates Sonia Pulliam MD Primary Care Provider Active Start: February 21, 2025 Nina Paulino CMAAttending ProviderActiveStart: February 21, 2025 Patient Care Team Team Status: Inactive Member Role/Relationship Status Dates Sonia Pulliam MD Primary Care Provider Active Start: February 26, 2025 End: February 26, 2025Bernadette Rosenthalending ProviderActiveStart: February 26, 2025 End: February 26, 2025 Chief Complaint and Reason for Visit Chief Complaint Admit Date Patient here for a 3 month f/u December 22, 2024 9:53am Rib Pain January 25, 2025 2 :10pm Plural Infusion February 15, 2025 7:44pm Amb Documentation February 21, 2025 8:11am Pleural Effusion February 26, 2025 9 :55am Reason for Visit Admit Date 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 Sept ember 2024 9:53am Cough January 25, 2025 2 :10pm Moderate COPD (chronic obstructive pulmo nary disease) January 25, 2025 2:10pm Rib pain on right side January 25 2:10pm 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 Parris bolivar 2024 7:44pm Hypertension February 15, 2025 7:44pm Pleural effusion February 15, 2025 7:44pm Hypoxia February 15, 2025 7:44pm Abnormal chest xray February 15, 2025 7:44pm CHF (congestive heart failure) February 15, 2025 7:44pm Pleural effusion February 26, 2025 9 :55am Reason for Referral Type Reason(s) Provider Provider Contact Information P bekah Address Start Date Call office on Wednesday to schedule follow-up with Pulmonology Dr Hill or Michelle Cadet CHEMICAL DEPENDENCY ATTENDANT to review thoracentesis results.[facility] MedicineWork Phone: [phone] [address] [address] have been scheduled for a follow up appointment for the following date and time, please call to reschedule if needed.Sonia Pulliam MDWork Phone: [phone] [facility] [address] Allergies, Adverse Reactions, Alerts Allergen Type Severity Reaction Last Updated Verified Status adhesive tape Allergy Unknown rash February 26, 2025 10:00am Yes Active Social History Smoking Status Status Start Date End Date Date of Observa tion Never smoked tobacco (finding) February 16, 2025 12:21pm Observation Status Observation Response Date of Response Legal Sex Female (finding) [facility] 1944 Social History Assessments Assessment Value Date Recorded SDOH Follow up February 16, 2025 12:54pmQuestionAnswerDate RecordedHas the SDOH screening changed since admission?NNovember 2024 12:54pm Family History Relationship Condition Age at Onset [...] omments Acute kidney injury June 02, 2023 9:59am Unknown Acti ve Left hand painApril 2024 1:24pmUnknownActiveChronic thoracic back painMarch 2023 12:37pmUnknownActiveL-TGA, levo-transposition of great arteries with ventricular inversionMarch 2023 3:16pmUnknownActiveArthritis of hopckbru-njmqmcxhx-znzeyklhj joint of left handApril 2024 1:26pmUnknown Active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January 2024 9:38amUnknownActive Medicare annual wellness visit, subsequentDeceer 2023 12:32pmUnknown ActiveAge-related osteoporosis without current pathological fractureMarch 2023 3:16pmUnknownActivePrimary osteoarthritis of left kneeMarch 2023 3:16pmUnknownActiveRib pain on right sideOctober 2024 1:42pmUnknownActive Neuropathic pain, leg, bilateralMarch 2023 3:16pmUnknownActivePresence of left artificial knee jointMarch 2023 3:16pmUnknownActiveRib fractureApril 2024 10:32amUnknownActiveModerate COPD (chronic obstructive pulmonary disease)March 2023 3:16pmUnknownActiveShortness of breathMarch 2023 3:16pmUnknownActiveOAB (overactive bladder)May 31, 2023 3:16pmUnknownActive Chronic disease anemiaMarch 2023 9:56amUnknownActiveExpressive aphasiaMarch 2023 3:16pmUnknownActivePulmonary HTNMarch 2023 3:16pmUnknownActive ConfusionApril 2024 10:32amUnknownActiveCoughApril 2024 10:33am UnknownActiveEdemaMay 2024 1:03pmUnknownActiveHypercholesterolemiaMarch 2023 3:16pmUnknownActiveMixed hyperlipidemiaJune 2023 9:40amUnknown ActivePleural effusionNovember 2024 9:03pmUnknownActiveAcute metabolic encephalopathyMarch 2023 9:59amUnknownActiveSepsisMarch 2023 9:59am UnknownActiveLeft wrist painDecember 2023 12:26pmUnknownActiveMultifocal pneumoniaMarch 2023 9:59amUnknownActiveDiaphoresisMarch 2023 3:16pm UnknownActiveEncounter for palliative careJanuary 2024 8:24amUnknownActive Arthritis of carpometacarpal (CMC) joint of left thumbApril 2024 1:24pm UnknownActiveHypertensionApril 2021 8:19amUnknownActivehx of-no medication currentlyProblem List clean-up per request of Phys. EHR CmteMacular degeneration May 31, 2023 3:16pmUnknownActiveConstipationJanuary 2024 9:53amUnknown ActiveFallApril 2024 10:32amUnknownActiveInactive/Resolved Problems Problem Diagnosis/Recorded Date Onset Date Status C omments Hypoxia February 16, 2025 12:19pm Unknown Resolved Medications Medication Status Dose Units Route Directions Qty Days Refills S tart Date Stop Date End Date Reason(s) Instructions Adherence Oxycodone 15 mg tablet Discontinued 15 MG PO Every 8 hours a s needed for pain 90 30 0 May 31, 2023 June 29, 2023 1:57pmChronic thoracic back pain Pain in thoracic spine Other chronic painNaproxen 500 mg tabletDiscontinued0.ROUTE.SVVHYDN051Njdyx 2023 12:04pmMay 2023 11:30amTAKE 1 TABLET BY MOUTH EVERY DAY Gabapentin 300 mg nfwryufWoetpfknteya470TUTGDhike times aibxv934312Fxikb 2023 10:37amJuly 2023 7:27amMirabegron (Myrbetriq) 50 mg tablet extended release 24 hrDiscontinued0.ROUTE.GQIHUIC352Gvhzv 2023 2:47pmJuly 2023 8:59amTAKE 1 TABLET BY MOUTH EVERY DAY FOR 90 DAYSOxycodone 10 mg tablet Mkjxtrajspbn95NKORUdmmv times daily as needed for gocu17028Ecm 2023June 2023 10:48amChronic thoracic back pain Pain in thoracic spine Other chronic painDuloxetine 30 mg capsule,delayed release(DR/EC)Discontinued0 .ROUTE.MGALGAO906Rki2023 12:43pmJuly 2023 7:27amTAKE 1 CAPSULE AT BEDTIMEDuloxetine 60 mg capsule,delayed release(DR/EC)Discontinued0.ROUTE .DMHSTPQ147Gsm 2023 12:43pmJuly 2023 7:27amTAKE 1 CAPSULE EVERY MORNINGLisinopril 5 mg mkqyasTqqzsubbzhdk4OYNSGgolo603Utn 22nd, 2024 11:29am November 01, 2023 8:43amNaproxen 500 mg tabletDiscontinued0.ROUTE.FLBMHQP649Orr2023 11:30amAugu2023 8:43amTAKE 1 TABLET BY MOUTH EVERY DAY Oxycodone 10 mg pjdwzrBhkjfpluynob07YMCURydma times daily as needed for ywny3008 0June 2023June 2023 8:14amChronic thoracic back pain Pain in thoracic spine Other chronic painDuloxetine 60 mg capsule,delayed release(DR/EC)Discontinued0 .ROUTE.FWZVHCB441Vorm 2023 7:26amNovember 2023 4:30pmTAKE 1 CAPSULE EVERY MORNINGGabapentin 300 mg kegfbhzRfnrimxqaqqp958SYMTWshta times nthbt424465 October 08, 2023 7:26amOctober 2023 3:21pmDuloxetine 30 mg capsule,delayed release(DR/EC)Discontinued0.ROUTE.ATCOXDG158Uekw2023 7:27amNoveer 2023 4:30pmTAKE 1 CAPSULE AT BEDTIMEOxycodone 10 mg wxstquOcmbxbhipzro17ZDPY Three times daily as needed for qosl03371Nelx ugu2023 7:36am Chronic thoracic back pain Pain in thoracic spine Other chronic painNaloxone (Narcan) 4 mg/actuation spray,non-aerosolDiscontinued 0JPMBTMCJAGELEBWD3V73Eqqn 2023 11:00pmDecember 2023 11:54amspray 1 dose into ONE nostril; alternate nostrils w each dose until help arrives Mirabegron (Myrbetriq) 50 mg tablet extended release 24 hrDiscontinued0.ROUTE .HVSZRWV064Jnoq 2023 8:59amSeptember 2023 9:17amTAKE 1 TABLET BY MOUTH EVERY DAY FOR 90 DAYSLisinopril 5 mg tabletDiscontinued0.ROUTE.JBFJXSF186 November 01, 2023 8:43amMay 2024 11:13amTAKE 1 TABLET EVERY DAYNaproxen 500 mg tabletActive0.ROUTE.WBDNZYL734Ouvvhe 5th, 2024 8:43amTAKE 1 TABLET EVERY DAY Complies with drug therapyOxycodone 10 mg gujnhbWrjuipfikxit97IKXWKjyjd times daily as needed for khqx80097Fkfxxy 2023September 2023 7:31amChronic thoracic back pain Pain in thoracic spine Other chronic painOxycodone 10 mg qddmzxVfalygnhyjeg06GBHCRxsrs times daily as needed for grmn36416Fybnjjdlh 2023October 2023 11:39amChronic thoracic back pain Pain in thoracic spine Other chronic painOxycodone 10 mg gfqrqiJqzmyggepcyx17LBDKLdxcj times daily as needed for vjzw80479Xtcfjuy 2023November 2023 5:48amChronic thoracic back pain Pain in thoracic spine Other chronic painPravastatin 10 mg tabletDiscontinued0.ROUTE.NBZTDEW397Zeevmea 2023 3:48pmAugust 2024 2:06pmTAKE 1 TABLET EVERY DAYGabapentin 300 mg zprhlrhEuqmgkanqkzs405GHGIWllfy times vteab62461Fpyllwq 2023 3:21pm February 17, 2024 4:30pmOxycodone 10 mg znkmdlHgyqxnihkqqn49IIQKYibeo times daily as needed for kuyd89202Jzzvyjae ecember 2023 7:25am Chronic thoracic back pain Pain in thoracic spine Other chronic painDuloxetine 60 mg capsule,delayed release(DR/EC)Discontinued0 .ROUTE.YLENECK784Vdzkttau 2023 4:30pmFebruary 2024 4:09pmTAKE 1 CAPSULE EVERY MORNINGGabapentin 300 mg ybglpwdXnliayqokcnf656OPGBUokyn times evihz18310Zjonfbwi 21st, 2024 4:30pmDecember 2023 12:26pmDuloxetine 30 mg capsule,delayed release(DR/EC)Discontinued0.ROUTE.BWLAVVM106Auctefjd 2023 4:30pmFebruary 2024 4:09pmTAKE 1 CAPSULE AT BEDTIMEOxycodone 10 mg tablet Skffnuxyxszj53QABWWixou times daily as needed for xthd34068Nimzbduu 2023April 10, 2024 12:46pmChronic thoracic back pain Pain in thoracic spine Other chronic painOxycodone 10 mg csscxpYxaebhfgxcws90BKHDCuitn times daily as needed for jjrj20322Ctkhmnh pril 2024 10:06amChronic thoracic back pain Pain in thoracic spine Other chronic painDuloxetine 30 mg capsule,delayed release(DR/EC)Discontinued0 .ROUTE.GLMOSER613Vfbzqzkv 2024 4:09pmApril 2024 11:20amTAKE 1 CAPSULE AT BEDTIMEDuloxetine 60 mg capsule,delayed release(DR/EC)Discontinued0 .ROUTE.HLFUJGH274Nueehlhd 2024 4:09pmApril 2024 11:20amTAKE 1 CAPSULE EVERY MORNINGMorphine 15 mg tablet extended fbtridcQqjfgkjbsvgx46KWTD M05W41365Qgyizwvf 2024February 2024 4:06pm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 Neoplasm related pain (acute) (chronic)Morphine 15 mg tablet extended release Bekfopuydrlz89WFOSR66B50330Gzmczatx 2024March 2024 9:14am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 Neoplasm related pain (acute) (chronic)Oseltamivir (Tamiflu) 75 mg capsule Eadzpxtskjga86AJSSTuscm 12 lpert4034Tucem 2024 12:00amApril 2024 1:13pmGabapentin 300 mg ltyibscDvervulqkbnu672VQLTGabrk times rcvrh881778Nmkgr 2024 12:05pmJune 2024 9:33amDuloxetine 30 mg capsule,delayed release(DR/EC)Discontinued0.ROUTE.OJPKHVW580Wdnul 2024 11:20amJuly 2024 7:18amTAKE 1 CAPSULE AT BEDTIMEDuloxetine 60 mg capsule,delayed release(DR/EC)Discontinued0.ROUTE.MNPLCTQ841Xqnap 2024 11:20amJuly 2024 7:18amTAKE 1 CAPSULE EVERY MORNINGMorphine 15 mg tablet extended release Idsyxvlrqram36XEHNQ27H24215Nka 2024 12:29pm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 Neoplasm related pain (acute) (chronic)Potassium Chloride (Klor-Con M10) 10 mEq tablet,ER particles/vruofyahHzzlkgkazhet35JFRLZBcdwe877Lrx 2024 11:00pmJune 2024 9:15amLisinopril 5 mg tabletActive0.ROUTE.OZECOSW229Egc2024 11:12amTAKE 1 TABLET EVERY DAYComplies with drug therapyMorphine 15 mg tablet extended agpeqrbZzfgknggrsik57WTXSX87R58095Cxro 2024 12:38pm 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 Neoplasm related pain (acute) (chronic)Morphine 15 mg tablet extended release Jofitybnrqkw43UBEFE50O72546Dkrz 2024Jun2024 9:33am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 Neoplasm related pain (acute) (chronic)Duloxetine 60 mg capsule,delayed release(DR/EC)Active0.ROUTE.2024 7:17amTAKE 1 CAPSULE EVERY MORNINGComplies with drug therapyDuloxetine 30 mg capsule,delayed release(DR/EC) Active0.ROUTE.SONLZIH008Ugou2024 7:17amTAKE 1 CAPSULE AT BEDTIMEComplies with drug therapyMorphine 15 mg tablet extended kreoumeIefzooksdzlz45WGLMC97I11 300August 2024September 2024 12:06pm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 Neoplasm related pain (acute) (chronic)Pravastatin 10 mg tabletActive0.ROUTE .GMLACKY681Ituxpt 2024 2:06pmTAKE 1 TABLET EVERY DAYComplies with drug therapyMorphine 15 mg tablet extended lbyoqtvSnqvattncasg85OQLEU86T94131 November 28, 2024September 2024 9:18am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 Neoplasm related pain (acute) (chronic)Azithromycin 250 mg wtzabtPhwdvtqdvppe1UH .RGCWFWK17Polkwtx 2024 11:00pmNovember 2024 9:38amFor 250 mg dose pack: take 500 mg today (day 1), then 250 mg for 4 days (days 2-5) PO Amoxicillin-Pot Clavulanate 875-125 mg wsthrbHzplqlydhvcp8IPHFWChyat yalfs597 February 12, 2025 12:00amNovember 2024 2:33pmMorphine 15 mg tablet extended qhqvkkoEvaslc50AKAZPpciq 8 uscjk11246Vvjtqnah 24th, 2025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 Neoplasm related pain (acute) (chronic)Complies with drug therapyGabapentin 600 mg pfzzguNggangpemtii386IUMDYocyp times dailyApr2021 11:00pmApril 2023 1:57pmpain/neuropathyAspirin (Aspirin Low Dose) 81 mg Tablet,Delayed Release (Dr/Ec)Hcuqtyzrzsju67KASXXgrspBryow 2021 11:00pmDeceer 2023 11:52amOxycodone 15 mg cigfjdMfxxrlyorrgz48DPMLAvmpg dailyApr2021 11:00pmMar 2023 12:21pmpainOxycodone 15 mg tabletDiscontinued7.5MGPODaily July 06, 2021 11:00pm[facility] 12:21pmpainPravastatin 10 mg tablet Qogpzuuyosld71LVMMOcsns at bedtimeApr2021 11:00pmOctober 2023 3:48pmhyperlipidemiaDiphenhydramine Hcl (Sleep Aid (Diphenhydramine)) 25 mg TovxusAbpetagtpgve76GIKZGkxto at bedtime as needed for InsomniaApr2021 11:00pmMar 2023 12:20pmNaproxen 500 mg uanuftCnozbyccbngy295BLNYzrakb day at noonApril 2021 11:00pmMar 2023 12:04pmpainDuloxetine 30 mg capsule,delayed release(DR/EC)Txrvqorzijgt75FIDOUsawm at bedtimeApril 2021 11:00pmMay 2023 12:44pmneuropathyDuloxetine 60 mg capsule,delayed release(DR/EC)Ilwcigecxfuh48NTXYFnsoe morningApril 2021 11:00pmMay 2023 12:44pmneuropathyCalcium-Vitamin D3-Vitamin K (Viactiv) 500-100-40 mg-unit-mcg Tablet,PwpewqglPqdcdirnlpik9MJQLLJligbNboif 2021 11:00pmMarch 2023 12:19pmbone healthVit A,C And L-Ndcekc-Zhhrdgth (Healthy Eyes) 300 mcg-200 mg-27 mg-2 mg DtnwbsYujutk7QMMBEVsxvpKjyfy 2021 11:00pmmacular degenerationComplies with drug therapyCholecalciferol (Vitamin D3) (Vitamin D3) 25 mcg (1,000 unit) DdklspNqvkdw65JREZKZgnvtTdqce 2021 11:00pmComplies with drug therapyMv,Ca,Min-Folic Acid-Vit K1 (One-A-Day Women's 50 Plus) 400-20 mcg FwxnjbKahowx6XCNCYXcrqhDgids 2021 11:00pmsupplementComplies with drug therapyAcetaminophen (Acetaminophen Extra Strength) 500 mg TabletDiscontinued 1000MGPOThree times daily as needed for PainApril 2021 11:00pmMarch 2023 3:18pmOxycodone 10 mg evzahhJoqtshtqjslm42IZWSMbrry times daily as needed for mzvr02736Rwbb 2023July 2023 9:32amChronic thoracic back pain Pain in thoracic spine Other chronic painLisinopril 5 mg itimomDvllimwpvczd5OQBGSjdlfUkfxr 2023 12:00amMay 2023 11:30amMirabegron (Myrbetriq) 50 mg tablet extended release 24 qgGmlztlxkjeqt86SBWYUiblkWdrlt 2023 12:00amJune 2023 9:35amTiotropium-Olodaterol (Stiolto Respimat) 2.5-2.5 mcg/actuation mist DiscontinuedINHALATIONMarch 2023 12:00amJune 2024 9:15amLevofloxacin 500 mg sjvqrmDfskfrtbqawk212UAXLGnuqzDyqaj 2023 12:00amApril 2023 1:29pmPrednisone 20 mg zfslvfJlnshelslebs03UQARBrecv dailyMarch 2023 12:00amApril 2023 1:29pmGabapentin 300 mg mnlxnuuAinmhxjvhuud383BEIZKeqvy times hsgde321Xmdzb 2023 11:00pmApril 2023 10:38amOxycodone 10 mg crktglCollqfnuuwrp15RENGGddbc times daily as needed for jkfy21822Vazuh 2023August 02, 2023 11:47amChronic thoracic back pain Pain in thoracic spine Other chronic painMirabegron (Myrbetriq) 50 mg tablet extended release 24 hr Dsphicuuknrc36ZNODEdcxiMjndz 2023 11:00pmApril 2023 2:47pmGabapentin 300 mg fpincnrJwsqedaqsxff040SXXKZtsdb times gkkpa853185Ckskdfrs 2023 12:26pmMarch 2024 12:05pmMorphine 15 mg tablet extended release Qymxmbpipwws95VYBIJ24S92757Rurjxwbz 2024February 2024 1:36pm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 Neoplasm related pain (acute) (chronic)Morphine 15 mg tablet extended release Dsaennbxdcht22NRLYJ24K11892Ddall 2024May 2024 8:57am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 Neoplasm related pain (acute) (chronic)Morphine 15 mg tablet extended release Gtzzzwzkhphx00SZCZP55Y17052Hkee ugu2024 12:29pm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 Neoplasm related pain (acute) (chronic)Gabapentin 300 mg odqcvkqFbgkpvqwedxr139 MGPOThree times ekuuc531013Wsss 2024 9:30amJune 2024 9:41am Gabapentin 300 mg ikreutyLcfswt725WKBXLuvjk times ioqui683805Pptj 2024 9:41amComplies with drug therapyFurosemide 20 mg sslwnbVuolxpngguuw70XVOUNpdmb90 0May 2024 11:00pmJune 2024 9:14amMorphine 15 mg tablet extended jwmwsxjWfdxvgpjduwy51GAPHOevyi 8 hhnlk73831Lpzrulr 2024October 2024 7:35am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 Neoplasm related pain (acute) (chronic)Morphine 15 mg tablet extended release Hdcykchtwfyw33KKXRWuahd 8 elffv73478Tjsjjda 2024November 2024 4:43pm 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 Neoplasm related pain (acute) (chronic)Oxycodone 15 mg djshesPlagfybtlsdn28ODVE7 May 27, 2023 12:00amMarch 2023 12:38pmMorphine 15 mg tablet extended umqcxehRbxexkxfchvi49OWVRD33K57531Loupjbc 2024January 2024 10:24am 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 Neoplasm related pain (acute) (chronic)Morphine 15 mg tablet extended release Xbxyppnenjxm92AEFKR24J78043Pajyfdz 2024February 2024 3:42pm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 Neoplasm related pain (acute) (chronic)Albuterol Sulfate 90 mcg/actuation HFA aerosol scfwfmrZidufi4HGYHXOFCKBCXQIOTBNV 4-6 HOURS as needed for sobMarch 2024 11:00pmComplies with drug therapyIbuprofen 800 mg hjxwbaIqmvhp610LVYGBvahn dailyApril 2024 11:00pmComplies with drug therapyOxycodone-Acetaminophen 5-325 mg flgyplOttmcqqjchpe1GEEADBsfis 8 hours as ufkhxg2Ojijyhirm 2024 11:00pmSeptember 2024 9:19amOxycodone-Acetaminophen 5-325 mg tablet Ybuilxasklxn5EDKUMPkqso daily as needed for oqbu70594Ekncslpbm 2024December 22, 2024 10:02am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 Neoplasm related pain (acute) (chronic)Morphine 15 mg tablet extended release Peuglobgwxkn06BWQFJrvso 8 ujmqm39819Nzpxtfgcx 2024September 2024 10:02am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 Neoplasm related pain (acute) (chronic)Morphine 15 mg tablet extended release Augjossbhxhv63WFEBDngmb 8 plvsn96806Dyeixfgtl 2024October 2024 7:35am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 Neoplasm related pain (acute) (chronic)Oxycodone-Acetaminophen 5-325 mg tablet Ltptvr7GQTEEKhjma daily as needed for qwln94652Rwiislbap 26th, 2025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 Neoplasm related pain (acute) (chronic)Complies with drug therapy Immunizations Immunization Event Date Not Given Reason Dose Number Education Administrator Lot Number Reason(s) Given Vaccine Information Statement (VIS) Detail Administration Location COVID-19 mRNA [employer] ([employer]) May 09, 2020 COVID-19 mRNA, [employer]irKaros Healthjanee ([employer])May 30OVID- Project Playlist, Shape [employer]age ([employer])February 11, 2021Fluzone TIV High-Dose 65YR+December 20, 2023 [id number] [facility] Centerinflu[facility], unspecified formulationOctober 2018influenza, unspecified formulationSeptember 2019influenza, unspecified formulationOctober 2020influenza, unspecified formulationOctober 2021influenza, unspecified formulationOctober 2022 Medical Equipment Device Date Implanted Device Details Orthopaedic cement, non-medicated July 21 ZOHREH: ()[id number] Issuing Agency: [facility] Device Id: [id number] Expiration Date: 2024-12-26 Lot Number: [id number] cement, non-medicatedApril 2021UDI: [id number] Issuing Agency: [facility] Device Id: [id number] Expiration Date: 2024-12-26 Lot Number: [id number] knee femur prosthesisApril 2021UDI: ()[id number] Issuing Agency: [facility] Device Id: [id number] Expiration Date: 2030-07-22 Lot Number: [id number] insertApril 2021UDI: ()[id number] Issuing Agency: [facility] Device Id: [id number] Expiration Date: 2024-02-26 Lot Number: [id number] patella prosthesisApril 2021UDI: ()[id number] Issuing Agency: [facility] Device Id: [id number] Expiration Date: 2026-05-27 Lot Number: [id number] 2021UDI: ()[id number] Issuing Agency: [facility] Device Id: [id number] Expiration Date: 2031-05-31 Lot Number: [id number] knee tibia prosthesis, metallicApril 2021UDI: ()[id number] Issuing Agency: [facility] Device Id: [id number] Expiration Date: 2030-09-29 Lot Number: [id number] Relevant Diagnostic Tests and/or Laboratory Data Laboratory Results Test Collection Date/Time Result Date/Time Result Interpretation Reference Range Result Comment Performing Site Troponin I High Sensitivity February 15, 2025 8:45am February 15, 2025 8:45am 22.9 pg/mL 4.0-51.3CUT-OFF POINTS HAVE BEEN ESTABLISHED BASED ON THE FOURTHUNIVERSAL DEFINITION OF MYOCARDIAL INFARCTION. THE UPPERREFERENCE LIMIT (URL) OF TROPONIN, DEFINED THE 99THPERCENTILE OF cTnI DISTRIBUTION IN A REFERENCE POPULATION,HAS BEEN CONFIRMED THE DECISION THRESHOLD FOR MIDIAGNOSIS.99TH PERCENTILE = 51.4 PG/MLNOTE: HIGH-SENSITIVITY TROPONIN ASSAY IS NOT INTENDED TO BEUSED IN ISOLATION BUT SHOULD BE INTERPRETED IN CONJUNCTIONWITH OTHER DIAGNOSTIC AND CLINICAL INFORMATION.Anion GapNovember 2024 8:45amNovember 2024 8:45am12.3Basophils # (Auto)February 15, 2025 8:45amNovember 2024 8:45am 0.0 10 3/uL0.0-0.1BUN/Creatinine RatioNove2024 8:45amNovember 2024 8:45am25.7Basophils (%) (Auto)February 15, 2025 8:45amNovember 2024 8:45am0.4 %0.2-2.0Blood Urea NitrogenNov2024 8:45amNovemb2024 8:45am28.0 mg/dLAbove high normal7.0-18.0Eosinophils # (Auto)February 15, 2025 8:45amNovember 2024 8:45am0.0 10 3/uL0.0-0.7Calcium LevelNov2024 8:45amNovemb2024 8:45am9.9 mg/dL8.5-10.1Eosinophils (%) (Auto)February 15, 2025 8:45amNovember 2024 8:45am0.2 %Below low normal 0.9-7.0Chloride LevelFebruary 15, 2025 8:45amNovemb2024 8:57od247 mmol/H54-732LimgoextijUmxlzlmp 20th, 2025 8:45amNove2024 8:45am39.1 % 36.0-48.0Carbon Dioxide LevelFebruary 15, 2025 8:45amNovemb2024 8:45am30.6 mmol/L21.0-32.0HemoglobinFebruary 15, 2025 8:45amNovemb2024 8:45am12.5 g/dL12.0-16.0CreatinineFebruary 15, 2025 8:45amNovemb2024 8:45am1.09 mg/dLAbove high normal0.55-1.02Immature Granulocyte # (Auto) February 15, 2025 8:45amNovemb2024 8:45am0.04 10 3/uLAbove high normal0.00-0.03Estimated GFR ()February 15, 2025 8:45am February 15, 2025 8:00wh39Hdmzp low normal>=60 mL/min/1.73m 2Immature Granulocyte % (Auto)February 15, 2025 8:45amNovemb2024 8:45am0.4 % 0.0-0.5Estimated GFR (Non- AmericanNov2024 8:45amNovemb2024 8:60ga96Xzglb low normal>=60 mL/min/1.73m 2Lymphocytes # (Auto) February 15, 2025 8:45amNovemb2024 8:45am1.0 10 3/uLBelow low normal 1.2-3.8Glucose LevelNov2024 8:45amNovemb2024 8:26mm684 mg/dLAbove high limzwy54-135Qfwvauegtxw (%) (Auto)February 15, 2025 8:45am February 15, 2025 8:45am10.2 %Below low hvhoxg66.5-60.0Potassium LevelNov2024 8:45amNovemb2024 8:45am4.9 mmol/L3.5-5.1Mean Corpuscular HemoglobinFebruary 15, 2025 8:45amNovemb2024 8:45am30.8 pg26.7-34.0 Sodium LevelNov2024 8:45amNovemb2024 8:68yv059 mmol/L 136-145Mean Corpuscular Hemoglobin ConcentNov2024 8:45amNovemb2024 8:45am32.0 g/dL29.9-35.2Mean Corpuscular VolumeFebruary 15, 2025 8:45amNovemb2024 8:45am96.3 fL81.0-99.0Monocytes # (Auto)February 15, 2025 8:45amNovemb2024 8:45am0.6 10 3/uL0.3-0.8Monocytes (%) (Auto) February 15, 2025 8:45amNovemb2024 8:45am5.9 %1.7-12.0Mean Platelet VolumeFebruary 15, 2025 8:45amNove2024 8:45am9.8 fL9.5-13.5 Neutrophils # (Auto)February 15, 2025 8:45amNove2024 8:45am8.1 10 3/uLAbove high normal1.4-6.5Neutrophils (%) (Auto)February 15, 2025 8:45am February 15, 2025 8:45am82.9 %Above high .0-75.0Platelet CountFebruary 15, 2025 8:45amNove2024 8:93ek146 10 3/oR682-320Tqw Blood Count February 15, 2025 8:45amNove2024 8:45am4.06 10 6/uLBelow low normal 4.20-5.40Red Cell Distribution WidthFebruary 15, 2025 8:45amNove2024 8:45am12.2 %11.0-15.0Corrected White Blood CountFebruary 15, 2025 8:45am February 15, 2025 8:45am9.8 10 3/uL4.0-11.0 Vital Signs Vital Reading Result Reference Range Collection Date/Time Height 63 [in_i] December 22, 2024 8:61xdComoeg84.71 kgSept2024 8:57amBody Efpjrchvfhx64.3 [degF]97.6-99.0Sept2024 8:57amHeart Rate92 /min 60-100Sept2024 9:02amBP Iadhjxmp058 mm[Hg]100-140Sept2024 9:02amBP Xwqiwpgtm22 mm[Hg]60-100Sept2024 9:02amBMI (Body Mass Index)35.4 kg/y4Ftnuuhaib2024 8:08yeHkppsf03 [in_i]January 25, 2025 1:55mvDjlljo71.08 kgOct2024 1:20pmBody Yejshkfruvb21.2 [degF] 97.6-99.0Oct2024 1:20pmHeart Yddu393 /mma80-239Lvfnkru 30th, 2025 1:20pmOxygen saturation by Pulse tomolkaq72 %95-100Oct2024 1:20pmBP Nsxkpapv070 mm[Hg]100-140Oct2024 1:20pmBP Mrugrtllx09 mm[Hg]60-100 January 25, 2025 1:20pmBMI (Body Mass Index)34.0 kg/v7Jykodhq 2024 1:91eaRbplbx29 [in_i]February 15, 2025 9:62sfTxjjvz17.50 kgNovember 2024 6:00amBody Iwbxnudabsq03.9 [degF]97.6-99.0Nov2024 12:24pmHeart Rate 113 /dam75-604Smiasjtm 22nd, 2025 12:24pmRespiratory rate20 /xxi04-79Mhnfbbzx 22nd, 2025 12:24pmOxygen saturation by Pulse oowyysjo30 %95-100Nov2024 12:24pmBP Hdhfddbh467 mm[Hg]100-140Nov2024 12:24pmBP Diastolic 71 mm[Hg]60-100November 2024 12:24pmInhaled oxygen flow rate2 L/min February 17, 2025 1:22qfOsvbjh33 [in_i]February 26, 2025 9:84kbJtvlpp17.72 kg February 26, 2025 9:59amHeart Rate97 /zmj17-790Ybixjlyn 1st, 2025 9:59amOxygen saturation by Pulse %95-100Decemb2024 9:59amBP Tcpymdhn482 mm[Hg]100-140Decemb2024 9:59amBP Kgwzjyjmw60 mm[Hg]60-100Decemb2024 9:59amBMI (Body Mass Index)33.5 kg/d2Vucfdemy2024 9:59am Advance Directives Advance Directive Response Recorded Date/ Time Advance Directives No March 04, 2021 7:20am Insurance Providers Guarantor Catherine yAers Address [address] [place] [address] [place] [address]Pwimyxo Info.Home Phone: Coverage Status Update:2025 Payer Group Member ID Coverage Type Subscriber Relationship to Subscriber Effective Date Expiration Date Medicare [id number] Ayers Id: [id number] [address] [place] [address] Home Phone: selfHureinaa [facility] Id: [id number] A Hazelbaker Id: [id number] [address] [place] [address] Home Phone: self Encounters Encounter Location(s) Arrival/Admit Date Discharge/Departure Date Discharge/Departure Disposition Provider(s) Departed Physician/ Provider Office Visit -[facility] December 22, 2024 9:53am December 22, 2024 10:21am Discharged to home care or self care (routine discharge) Love Guzman APRN Departed Physician/ Provider Office Visit -[facility] January 25, 2025 2:10pm January 25, 2025 2:46pm Discharged to home care or self care (routine discharge) Sonia Pulliam MD Non-patient / Non-visit -[facility]2024 8:45am Sonia Pulliam MDNon-patient / Lsa[facility]eqnbv[facility] MDNon-patient / Qqm[facility]mzkee[facility] 20[facility] 8:11aGracie Paulino CMADeparted Physician/Provider Office Visit-[facility] 2024 9:55am February 26, 2025 10:27amDischarged to home care or self care (routine discharge)Sonia Pulliam MD Recent Diagnosis Onset Date Admit Date 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 Unknown December 22, 2024 9:53am Cough Unknown January 25 2:10pm Moderate COPD (chronic obstr uctive pulmonary disease) Unknown January 25, 2025 2:10pm Rib pain on right side Unknown December 292024 2:10pm 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 Unknown February 15, 2025 7:44pm Hypertension Unknown February 15, 025 7:44pm Pleural effusion Unknown February 15, 2025 7:44pm Hypoxia Unknown February 15 025 7:44pm Abnormal chest xray Unknown January 7:44pm CHF (congestive heart failure) Unknown N ov2024 7:44pm Pleural effusion Unknown February 26, 025 9:55am Assessments Diagnosis Onset Date Resolution Status Admit Date 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 acuteSeptember 2024 9:53amCoughacuteOctober 2024 2:10pmModerate COPD (chronic obstructive pulmonary disease)acuteOctober 2024 2:10pmRib pain on right sideacuteOctober 2024 2:10pm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 acuteNov2024 7:44pmHypertensionacuteNov2024 7:44pm Pleural effusionacuteNov2024 7:44pmHypoxiaresolvedFebruary 15, 2025 7:44pmAbnormal chest xraydeletedFebruary 15, 2025 7:44pmCHF (congestive heart failure)deletedFebruary 15, 2025 7:44pmPleural effusionacuteDeceer 2024 9:55am Plan of Treatment Author Sonia Pulliam [facility]2024 3:42pmCheck CXR and rib xray. W history of breast cancer, concern about ribs/etc. Will followup on the xray and treat appropriately - antibiotic v. anti-inflammatory. Author Maria [facility] 9:35amMSER BID is mostly effective in reducing pain [...] Tests Test Name Ordered Date Scheduled Date Acid Fast Bacilli Culture & Smear February 16, 2025 3:30pm Body Fluid ChylomicronsFebruary 16, 2025 3:30pmMycology CultureFebruary 16, 2025 3:30pmFungal Culture Result 1November 2024 3:30pmXR chest 2V*January 25, 2025 1:42pmXR ribs RT min 3V w CXR1V*January 25, 2025 1:42pmXR chest 2V* February 26, 2025 10:19am Future Visits Future appointment information is unavailable Future Procedures Procedure Name Ordered Date Scheduled Date DME Home Medical Equipment February 17, 2025 1 :48pm 1 Days Acid Fast Culture And Smear February 16, 2025 3:59pm February 16, 2025 3:30pm Chylomicrons February 16, 2025 3:59pm Novem 2024 3:30pm Fungus (Mycology) Culture February 16, 2025 3: 59pm February 16, 2025 3:30pm Admit Status Order February 15, 2025 8:38pm No vember 2024 8:38pm Discharge Order February 17, 2025 2:32pm Novem 2024 2:32pm Consult to Pulmonology February 15, 2025 8:44p m February 15, 2025 8:44pm Disability Placard December 22, 2024 9:12am Future Medications Future medication information is unavailable Patient Instructions Instruction Admit Date [facility]
--- OUTSIDE RECORDS SUMMARY | 2025-03-08 10:41 | XMS_ITS | CCD ---
Author Organization [facility] Care Team Providers Care Storage Architect Name Role Phone Oumar Gunter MD Primary [...] GUNTER, DR OUMAR San Primary Care Unavailable [facility], DR CIARRA [employer] Unavailable DEVYNWSEGUN, [...] GUNTER, DR OUMAR San Primary Care Unavailable [place], DR EDWARDO [employer] Unavailable GUNTER, DR OUMAR San Consulting Unavailable GUNTER, DR OUMAR San Admitting Unavailable GUNTER, DR OUMAR San Attending Unavailable GUNTER, DR OUMAR San Primary Care Unavailable GUNTER, DR OUMAR San Consulting Unavailable Oumar Gunter Unavailable MD Oumra Gunter Primary Care Provider MD Miguel Spring II Attending Provider Linda Renteria Unavailable MD Oumar Gunter Primary Care Provider MD Linda Renteria Attending Provider [phone] MD Oumar Gunter Primary Care Provider MD Linda Renteria Attending Provider MD Linda Renteria Referring Provider [phone] MD Oumar Gunter Primary Care Provider MD Fidelina Escobar Attending Provider Oumar Gunter MD Primary Care Provider Paty Booth MD Attending Provider [phone] Oumar Gunter Primary Care Unavailable Paty Booth Attending Unavailable Paty Booth Admitting Unavailable Nina Paulino CMA Attending Provider [facility] [place] Oumar Gunter MD Attending Provider Raghav Ferreira MD Attending Provider Pancho Buckner MD Attending Provider Fidelina Escobar MD Attending Provider Maria Victoria Uribe APRN Attending Provider Oumar Gunter MD Primary Care Provider Maria Victoria Uribe APRN Attending Provider Oumar Gunter MD Attending Provider [phone] Allergies Allergy ClassificationReported Allergen(s)Allergy TypeDate of OnsetReaction(s) Facility (4 sources)Adhesive TapeAllergy to puoiygckh18-41-5640[facility] (20 sources)Adhesive TapeDrug allergyrasCox [place] [employer] Other (2 sources)Adhesive agentDrug allergy (disorder)05-24-8579NxjOhio[facility] (1 source)Adhesive TapeDrug allergy (disorder)16-56-5962KhpogiqsyMetrohealth [facility] Medications Current Medications MedicationDrug Class(es)DatesSig (Normalized)Sig (Original)acetaminophen 325 mg / oxyCODONE hydrochloride 5 mg oral tablet (5 sources)Opioid AgonistStart: 12-22-2024 End: 14-85-3798ryns 1 tablet by mouth twice daily as needed for painOxycodone- Acetaminophen 5-325 mg tablet Active 1 TAB PO Twice daily as needed for pain 60 30 0 December 22, 2024 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 Neoplasm related pain (acute) (chronic) Complies with drug therapyStart: 12-22-2024 End: 82-11-3393hjvk 1 tablet by mouth every eight hours as neededOxycodone- Acetaminophen 5-325 mg tablet Discontinued 1 TAB PO Every 8 hours as needed 0 December 22, 2024 12:00am December 22, 2024 10:[id number] 200 actuat albuterol 0.09 mg/actuat metered dose inhaler (7 sources)beta2-Adrenergic AgonistStart: 20-14-8722Hokyfptcx Sulfate 90 mcg/actuation HFA aerosol inhaler Active INHALATION June 27, 2024 12:00am Com plies with drug therapyascorbic acid 200 mg / beta carotene 1000 unt / cuprous oxide 2 mg / dl-alpha tocopheryl acetate 60unt / lutein 2 mg / sodium selenate 0.055 mg / zinc oxide 40 mg oral tablet (3 sources)Vitamin CStart: 51-56-9682mdbv 1 tablet by mouth once dailyVit A,C And R-Xahxgf-Zaoiyutc (Healthy Eyes) 300 mcg-200 mg-27 mg-2 mg Tablet Active 1 TAB PO DailyApril 2021 12:00am macular degeneration Complies with drug therapybenoxinate hydrochloride 4 mg/ml / fluorescein sodium 2.5 mg/ml ophthalmic solution (1 source)Diagnostic DyeStart: 08-07-2021 End: 97-02-2345cendnczpulr-benoxinate 0.25-0.4 % 1 Drop (FLURESS)cefadroxil 500 mg oral capsule (6 sources)Cephalosporin AntibacterialStart: 27-78-5797wogu 1 capsule by mouth every twelve hoursCefadroxil 500 MG 1 tablet Orally every 12 hrs for 7 days MED TO BED UPON DISCHARGE DOS 07/21/2021 Jun, Activecholecalciferol 0.025 mg oral tablet (20 sources)Vitamin DStart: 20-52-8254lmug 1 tablet by mouth every twenty-four hoursVitamin D 25 MCG (1000 UT) 1 tablet Orally Once a day for 56 day(s) Jun, ActiveStart: 98-98-6721dpds 1 tablet by mouth once dailyCholecalciferol (Vitamin D3) (Vitamin D3) 25 mcg (1,000 unit) Tablet Active 25 MCG PO Daily July 07, 2021 12:00am Complies with drug therapyStart: 84-51-1761Cndvukn D3 250 MCG (30937 UT) as directed Orally Feb, ActiveStart: 02-27-2021 Vitamin D3 250 MCG (84132 UT) as directed Orally Feb, ActiveComment on above:Take 1,000 Units by mouth once daily.docusate sodium 50 mg / sennosides, fpc 8.6 mg oral tablet (6 sources)Start: 50-22-3203ddmq 2 tablets by mouth every twenty-four hours Senokot S 8.6-50 MG 2 tablets Orally Once a day for 30 day(s) MED TO BED UPON DISCHARGE DOS 07/21/2021 Jun, ActiveHealthy Eyes - (20 sources)Healthy Eyes - as directed Orally Activeibuprofen 800 mg oral tablet (5 sources)Nonsteroidal Anti-inflammatory DrugStart: 39-61-9872fzul 1 tablet by mouth twice dailyIbuprofen 800 mg tablet Active 800 MG PO Twice daily July 25, 2024 12:00am Complies with drug therapyIron (5 sources)Start: 87-09-4599fkvv 1 tablet by mouth three times dailyIron (Ferrous Sulfate) 325 (65 Fe) MG 1 tablet Orally TID for 28 days Jun, Activeketorolac tromethamine 5 mg/ml ophthalmic solution (3 sources)Nonsteroidal Anti-inflammatory Drug, Cyclooxygenase InhibitorStart: 26-35-2498ehAUVghtp (ACULAR) 0.5 % ophthalmic solution USE DIRECTED BY PHYSICIAN, IN OPERATIVE EYE, BEGINNING ONE DAY AFTER SURGERY 5 mL 0 08/20/2021 ActiveStart: 08-38-9701jnCGSpefm (ACULAR) 0.5 % ophthalmic solution USE DIRECTED BY PHYSICIAN, IN OPERATIVE EYE, BEGINNING ONE DAY AFTER SURGERY 5 mL 0 08/05/2021 ActiveComment on above:USE DIRECTED BY PHYSICIAN, IN OPERATIVE EYE, BEGINNING ONE DAY AFTER SURGERYlisinopril 5 mg oral tablet (20 sources)Angiotensin Converting Enzyme InhibitorStart: 11-01-2023 End: 51-26-6082Xiksqxqnju 5 mg tablet Active 0 .ROUTE .COMPLEX 90 August 22, 2024 12:12pm TAKE 1 TABLET EVERY DAYComplies with drug therapyStart: 06-01-2023 End: 26-62-0551nkqv 1 tablet by mouth once dailyLisinopril 5 mg tablet Discontinued 5 MG PO Daily 90 August 18, 2023 12:29pm November 01, 2023 9:43am Start: 58-11-6267uhrl 1 tablet by mouth every twenty-four hoursLisinopril 5 MG 1 tablet Orally Once a day for 30 day(s) Dec, ActivemethylPREDNISolone 4 mg oral tablet (1 source)CorticosteroidStart: 88-70-1618Lmipxt 4 MG as directed Orally Once a day for 5 days Aug, Activemorphine sulfate 15 mg extended release oral tablet (20 sources)Opioid AgonistStart: 01-15-2025 End: 84-39-3129bycw 1 tablet by mouth every eight hoursMorphine 15 mg tablet extended release Active 15 MG PO Every 8 hours 90 30 0 January 15, 2025 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 after treatment for malignant 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 Neoplasm related pain (acute) (chronic) Complies with drug therapyStart: 12-22-2024 End: 78-05-2938ranb 1 tablet by mouth every eight hoursMorphine 15 mg tablet extended release Discontinued 15 MG PO Every 8 hours 90 30 December 22, December 22, 2024 11:02am 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 Neoplasm related pain (acute) (chronic)Start: 12-22-2024 End: 18-21-4707weab 1 tablet by mouth every eight hoursMorphine 15 mg tablet extended release Discontinued 15 MG PO Every 8 hours 90 30 December 22, 2 January 15, 2025 8:35am 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 Neoplasm related pain (acute) (chronic)Start: 09-22-2024 End: 13-25-5361soic 1 tablet by mouth every twelve hoursMorphine 15 mg tablet extended release Discontinued 15 MG PO Q12H 60 30 0 November 28, 2024 Septem tonya 2024 10:18am 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 Neoplasm related pain (acute) (chronic)Start: 08-30-2024 End: 89-74-6098fkvu 1 tablet by mouth every twelve hoursMorphine 15 mg tablet extended release Discontinued 15 MG PO Q12H 60 30 0 August 30, 2024 August 30, 2 025 1:38pm 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 Neoplasm related pain (acute) (chronic)Start: 05-09-2024 End: 46-25-3989fjws 1 tablet by mouth every twelve hoursMorphine 15 mg tablet extended release Discontinued 15 MG PO Q12H 60 30 0 June 23, 2024 July 31, 2024 9:57am 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 Neoplasm related pain (acute) (chronic)Start: 04-26-2024 End: 70-18-5741njim 1 tablet by mouth every twelve hoursMorphine 15 mg tablet extended release Discontinued 15 MG PO Q12H 30 15 0 April 26, 2024 April 26, 2024 11:24am 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 Neoplasm related pain (acute) (chronic)Start: 04-26-2024 End: 98-41-1753kfdn 1 tablet by mouth every twelve hoursMorphine 15 mg tablet extended release Discontinued 15 MG PO Q12H 30 15 0 April 26, 2024 May 09, 2024 4:42pm 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 Neoplasm related pain (acute) (chronic)Start: 60-88-9029xcds 1 tablet by mouth every twelve hours for painMorphine Sulfate ER 15 MG 1 tablet for breakthrough pain only Orally every 12 hrs for 5 days MED TOBED UPON DISCHARGE DOS 07/21/2021 Jun, ActiveMultivitamin preparation (14 sources)take 1 tablet by mouth once dailyMulti Vitamin - 1 tablet Orally Once a day ActiveMv,Ca,Min-Folic Acid-Vit K1 (One-A-Day Women's 50 Plus) 400-20 mcg Tablet (14 sources)Start: 40-17-5349wtyp 50-400 tablets by mouth once dailyMv,Ca,Min- Folic Acid-Vit K1 (One-A-Day Women's 50 Plus) 400-20 mcg Tablet Active 1 TAB PO Daily July 07, 2021 12:00am supplement Complies with drug therapyStart: 78-07-9017xili 50-400 tablets by mouth once dailyMv,Ca,Min-Folic Acid-Vit K1 (One-A-Day Women's 50 Plus) 400-20 mcg Tablet Active 1 TAB PO Daily July 07, 2021 12:00am Complies with drug therapyStart: 55-58-5985wvkk 50-400 tablets by mouth once dailyMv,Ca,Min-Folic Acid-Vit K1 (One-A-Day Women's 50 Plus) 400-20 mcg Tablet Active 1 TAB PO Daily July 06, 2021 11:00pmStart: 19-76-9817darl 50-400 tablets by mouth once dailyMv,Ca,Min-Folic Acid-Vit K1 (One-A-Day Women's 50 Plus) 400-20 mcg Tablet Active 1 TAB PO Daily July 07, 2021 12:00am Myrbetrig 25mg (8 sources)Start: 11-51-2355wxvu 1 tablet by mouth once dailyMyrbetrig 25mg 1 Tablet Orally Once a day Feb, Activeondansetron 8 mg oral tablet (6 sources)Serotonin-3 Receptor AntagonistStart: 39-80-4134nmqs 1 tablet by mouth three times daily as needed for nauseaOndansetron HCl 8 MG 1 tablet as needed for nausea Orally TID for 10 days MED TO BED UPON DISCHARGEDOS 07/21/2021 Jun, Activepolyethylene glycol 3350 39176 mg powder for oral solution (6 sources)Osmotic LaxativeStart: 18-31-0429XvqbFvf 17 GM 1 packet mixed with 8 ounces of fluid Orally Once a day for 7 days MED TO BED UPON DISCHARGE DOS 07/21/2021 Jun, Activepravastatin sodium 10 mg oral tablet (20 sources)HMG-CoA Reductase InhibitorStart: 01-18-2024 End: 35-76-9246Eoukxyxptch 10 mg tablet Active 0 .ROUTE .COMPLEX 90 3 November 14, 2024 3:06pm TAKE 1 TABLET EVERYDAY Complies with drug therapyStart: 12-25-2010 End: 72-60-4358hcjp 1 tablet by mouth once daily at bedtimePravastatin 10 mg tablet Discontinued 10 MG PO Daily at bedtime July 07, 2021 12:00am January 18, 2024 4:48pm hyperlipidemiaComment on above:Take 1 tablet by mouth once daily.prednisoLONE acetate 10 mg/ml ophthalmic suspension (3 sources)CorticosteroidStart: 06-57-9110hovdwxscDUHY acetate (PRED FORTE, ECONOPRED PLUS) 1 % ophthalmic suspension USE DIRECTED BY PHYSICIAN, IN OPERATIVE EYE, BEGINNING ONE DAY AFTER SURGERY 5 mL 0 08/20/2021 ActiveStart: 85-16-0463ooyqcaieIDWI acetate (PRED FORTE, ECONOPRED PLUS) 1 % ophthalmic suspension USE DIRECTED BY PHYSICIAN, IN OPERATIVE EYE, BEGINNING ONE DAY AFTER SURGERY 5 mL 0 08/05/2021 ActiveComment on above:USE DIRECTED BY PHYSICIAN, IN OPERATIVE EYE, BEGINNING ONE DAY AFTER SURGERYVit A,C And G-Puybph-Qygkkzin (Healthy Eyes) 300 mcg-200 mg-27 mg-2 mg Tablet (11 sources)Start: 87-55-3635gwfl 1 tablet by mouth once dailyVit A,C And H-Rbfjnz-Xdjmyqpm (Healthy Eyes) 300 mcg-200 mg-27 mg-2 mg Tablet Active 1 TAB PO DailyApril 2021 11:00pmStart: 39-90-1329njii 1 tablet by mouth once dailyVit A,C And D-Sxubuv-Qrmmhhhb (Healthy Eyes) 300 mcg-200 mg-27 mg-2 mg Tablet Active 1 TAB PO DailyApril 2021 12:00amVitamin D 25 MCG (1000 UT) (20 sources)Start: 34-38-7796amgz 1 tablet by mouth once dailyVitamin D 25 MCG (1000 UT) 1 tablet Orally Once a day for 56 day(s) Jun, ActiveVitamin D3 250 MCG (23708 UT) (19 sources)Start: 45-81-2565Hpbywjb D3 250 MCG (50196 UT) as directed Orally Feb, Active Completed/Discontinued Medications MedicationDrug Class(es)DatesSig (Normalized)Sig (Original)acetaminophen 500 mg oral tablet (20 sources)Start: 07-07-2021 End: 27-57-5886vwsc 2 tablets by mouth three times daily as needed for pain Acetaminophen (Acetaminophen Extra Strength) 500 mg Tablet Discontinued 1000 MG PO Three times daily as needed for Pain July 07, 2021 12:00am May 31, 2023 4:18pmStart: 51-93-4254qbon 2 tablets by mouth every eight hours for pain acetaminophen (TYLENOL) 500 mg tablet TAKE TWO TABLETS BY MOUTH EVERY 8 HOURS FOR PAIN 0 07/16/2021ctiveComment on above:TAKE TWO TABLETS BY MOUTH EVERY 8 HOURS FOR PAINaspirin 81 mg delayed release oral tablet (20 sources)Platelet Aggregation Inhibitor, Nonsteroidal Anti-inflammatory Drug Start: 55-86-2679rybg 1 tablet by mouth twice dailyAspirin 81 MG 1 tablet Orally BID for 35 days MED TO BED UPON DISCHARGE DOS 07/21/2021Jun,ctive Start: 69-49-3301ndce 1 tablet by mouth every twenty-four hoursAspirin 81 MG 1 tablet Orally Once a day for 30 day(s) Feb, ActiveStart: 12-25-2010 End: 83-66-3450xcwp 1 tablet by mouth once dailyAspirin (Aspirin Low Dose) 81 mg Tablet,Delayed Release (Dr/Ec) Discontinued 81 MG PO Daily July 07, 2021 12:00am March 06, 2024 12:52pmComment on above:Take 1 tablet by mouth once daily.calcium carbonate 1250 mg / cholecalciferol 100 unt / vitamin k1 0.04 mg chewable tablet (14 sources)Vitamin D, Warfarin Reversal Agent, Vitamin KStart: 07-07-2021 End: 23-05-5844rnne 2 tablets by mouth once dailyCalcium-Vitamin D3-Vitamin K (Viactiv) 500-100-40 mg-unit-mcg Tablet,Chewable Discontinued 2 TAB PODaily July 07, 2021 12:00am June 01, 2023 1:19pm bone healthcelecoxib 200 mg oral capsule (10 sources)Nonsteroidal Anti-inflammatory DrugStart: 02-60-2362adoq 1 capsule by mouth twice daily at mealtimecelecoxib (CELEBREX) 200 mg capsule Take 200 mg by mouth twice daily with meals. 0 07/16/2021 ActiveComment on above:Take 200 mg by mouth twice daily with meals.diphenhydrAMINE hydrochloride 25 mg oral tablet (14 sources)Histamine-1 Receptor AntagonistStart: 07-07-2021 End: 43-43-8826ubye 1 tablet by mouth once daily at bedtime as needed Diphenhydramine Hcl (Sleep Aid (Diphenhydramine)) 25 mg Tablet Discontinued 25 MG PO Daily at bedtime as needed for Insomnia July 07, 2021 12:00am June 01, 2023 1:20pmDULoxetine 60 mg delayed release oral capsule (20 sources)Serotonin and Norepinephrine Reuptake InhibitorStart: 08-04-2023 End: 48-07-1565Ndovxxawie 60 mg capsule,delayed release(DR/EC) Discontinued 0 .ROUTE .COMPLEX 90 0 July 24, 2024 12:20pm October 09, 2024 8:18am TAKE 1 CAPSULE EVERY MORNINGStart: 08-04-2023 End: 07-60-9014Syjklrurgx 30 mg capsule,delayed release(DR/EC) Discontinued 0 .ROUTE .COMPLEX 90 0 July 24, 2024 12:20pm October 09, 2024 8:18am TAKE 1 CAPSULE AT BEDTIMEStart: 08-01-2015 End: 43-38-2626lmtr 1 capsule by mouth once daily in the morningDuloxetine 60 mg capsule,delayed release(DR/EC) Discontinued 60 MG PO Every morning July 07, 2021 12:00am August 04, 2023 1:44pm neuropathyStart: 05-21-2015 End: 48-45-8501jaxq 1 capsule by mouth once daily at bedtimeDuloxetine 30 mg capsule,delayed release(DR/EC) Discontinued 30 MG PO Daily at bedtime July 07, 2021 12:00am August 04, 2023 1:44pm neuropathyComment on above:Take 1 capsule by mouth once daily.TAKE ONE CAPSULE EVERY MORNING1 capsule every morning.1 capsule daily at bedtime.ferrous sulfate 325 mg oral tablet (4 sources)Start: 61-57-4590ibkt 1 tablet by mouth three times dailyferrous sulfate 325 mg (65 mg iron) tablet TAKE 1 TABLET BY MOUTH 3 TIMES A DAY FOR 28 DAYS 0 07/10/2021 ActiveComment on above:TAKE 1 TABLET BY MOUTH 3 TIMES A DAY FOR 28 DAYSfurosemide 20 mg oral tablet (4 sources)Loop DiureticStart: 08-01-2024 End: 75-43-8232byca 1 tablet by mouth once dailyFurosemide 20 mg tablet Discontinued 20 MG PO Daily 14 0 August 01, 2024 12:00am September 22, 2024 10:14am gabapentin 300 mg oral capsule (20 sources)Anti-epileptic AgentStart: 06-29-2023 End: 66-24-4293otfx 1 capsule by mouth three times dailyGabapentin 300 mg capsule Discontinued 300 MG PO Three times daily 270 90 0 September 22, 2024 10:30amJun2024 10:41amStart: 07-07-2021 End: 34-71-4473xuvm 1 tablet by mouth three times dailyGabapentin 600 mg tablet Discontinued 600 MG PO Three times daily July 07, 2021 12:00am June 29, 2023 2:57pm pain/neuropathyStart: 40-24-8699nmvxcmjtei (NEURONTIN) 600 mg tablet take 1 capsule by mouth every twenty-four hoursGabapentin 400 MG 1 tablet Orally Once a day for 7 days ActivelevoFLOXacin 500 mg oral tablet (10 sources)Quinolone AntimicrobialStart: 06-02-2023 End: 76-99-3860otel 1 tablet by mouth once dailyLevofloxacin 500 mg tablet Discontinued 500 MG PO Daily June 02, 2023 1:00am June 29, 2023 2:29pm meloxicam 15 mg oral tablet (20 sources)Nonsteroidal Anti-inflammatory DrugStart: 02-27-2021 End: 92-87-9381zjry 1 tablet by mouth every twenty-four hoursMeloxicam 15 MG 1 tablet Orally Once a day for 30 day(s) Feb, Not-Taking/PRNComment on above:TAKE 1 TABLET BY MOUTH EVERY DAY FOR 30 DAYS24 hr mirabegron 50 mg extended release oral tablet (20 sources)beta3-Adrenergic AgonistStart: 07-27-2023 End: 51-37-3596lzgx 1 tablet by mouth once dailyMirabegron (Myrbetriq) 50 mg tablet extended release 24 hr Discontinued 0 .ROUTE .COMPLEX 30 2 2023 9:59am December 20, 2023 10:17am TAKE 1 TABLET BY MOUTH EVERY DAY FOR 90 DAYS Start: 06-01-2023 End: 26-61-7394nqcu 1 tablet by mouth once dailyMirabegron (Myrbetriq) 50 mg tablet extended release 24 hr Discontinued 50 MG PO Daily July 27, 2023 12:00am July 27, 2023 3:47pmStart: 99-57-3302wmjd 50 mg by mouth once daily MYRBETRIQ 50 mg Tb24 Take 50 mg by mouth once daily. 0 07/07/2021 ActiveComment on above:Take 50 mg by mouth once daily.naloxone hydrochloride 40 mg/ml nasal spray (3 sources)Opioid AntagonistStart: 10-21-2023 End: 03-16-3790Xyxthrhd (Narcan) 4 mg/actuation spray,non-aerosol Discontinued 1 SPRAY INTRANASAL Q2M 2 0 October 21, 2023 12:00am March 06, 2024 12:54pm spray 1 dose into ONE nostril; alternate nostrils w each dose until help arrives Naloxone (Narcan) 4 mg/actuation spray,non-aerosol (6 sources)Start: 10-21-2023 End: 87-28-5179Ctamgzyp (Narcan) 4 mg/actuation spray,non-aerosol Discontinued 1 SPRAY INTRANASAL Q2M 2 September 12:00am March 06, 2024 12:54pm spray 1 dose into ONE nostril; alternate nostrils w each dose until help arrivesStart: 10-21-2023 End: 53-16-1537Ykywuneh (Narcan) 4 mg/actuation spray,non-aerosol Discontinued 1 SPRAY INTRANASAL Q2M 2 September 11:00pm March 06, 2024 11:54am spray 1 dose into ONE nostril; alternate nostrils w each dose until help arrivesnaproxen 500 mg oral tablet (20 sources)Nonsteroidal Anti-inflammatory DrugStart: 06-24-2023 End: 40-59-6371dlwc 1 tablet by mouth once dailyNaproxen 500 mg tablet Discontinued 0 .ROUTE .COMPLEX 90 0 August 18, 2023 12:30pm November 01, 2023 9 :43am TAKE 1 TABLET BY MOUTH EVERY DAYStart: 04-30-2021 End: 84-95-3424vuot 1 tablet by mouth once dailyNaproxen 500 mg tablet Discontinued 500 MG PO every day at noon July 07, 2021 12:00am June 24, 2023 1:04pm painStart: 55-42-4825ckyp 1 tablet by mouth every twelve hours at mealtime as neededNaproxen 500 MG 1 tablet with food or milk as needed Orally every 12 hrs Feb, ActiveComment on above:Take 500 mg by mouth once daily.Tiotropium-Olodaterol (10 sources)Anticholinergic, beta2-Adrenergic AgonistStart: 06-01-2023 End: 36-06-0586Qiefcnolxn-Olodaterol (Stiolto Respimat) 2.5-2.5 mcg/actuation mist Discontinued INHALATION June 01, 2023 1:00am September 22, 2024 10:15am Start: 72-62-0334Jhpanuvoyx-Olodaterol (Stiolto Respimat) 2.5-2.5 mcg/actuation mist Active INHALATION June 01, 2023 12:00amStart: 80-81-8429Cvbqwqminz- Olodaterol (Stiolto Respimat) 2.5-2.5 mcg/actuation mist Active INHALATION June 01, 2023 1:00amoseltamivir 75 mg oral capsule (8 sources)Neuraminidase InhibitorStart: 06-02-2024 End: 64-44-7768kjgl 1 capsule by mouth every twelve hoursOseltamivir (Tamiflu) 75 mg capsule Discontinued 75 MG PO Every 12 hours 10 5 0 June 02, 2024 1:00am June 27, 2024 2:13pm24 hr oxybutynin chloride 10 mg extended release oral tablet (1 source)Cholinergic Muscarinic AntagonistStart: 05-05-2021 End: 07-79-0655iofiaawzou ER (DITROPAN XL) 10 mg 24 hr tabletoxyCODONE hydrochloride 10 mg oral tablet (20 sources)Opioid AgonistStart: 06-29-2023 End: 88-41-9648agyv 1 tablet by mouth three times daily as needed for pain Oxycodone 10 mg tablet Discontinued 10 MG PO Three times daily as needed for pain 90 30 0 September 16, 2023 October 14, 2023 10:32am Chronic thoracic back pain Pain in thoracic spine Other chronic painStart: 05-27-2023 End: 21-03-6753wcws 1 tablet by mouth every eight hours as needed for pain Oxycodone 15 mg tablet Discontinued 15 MG PO Every 8 hours as needed for pain 90 30 0 May 31, 2023 June 29, 2023 2:57pm Chronic thoracic back pain Pain in thoracic spine Other chronic painStart: 03-34-4194zaxu 1 tablet by mouth every eight hoursoxyCODONE HCl 15 MG 1 tablet Orally q8h for 30 days Apr, ActiveStart: 91-33-9953wgxh 1 tablet by mouth every eight hoursoxyCODONE HCl 15 MG 1 tablet Orally q8h for 30 days Feb, ActiveStart: 10-88-9907qrgo 1 tablet by mouth every eight hoursoxyCODONE HCl 15 MG 1 tablet Orally q8h for 30 days Jan, ActiveStart: 72-56-9231atzYEAQXF HCl 15 MG 1 tablet Orally 1 tablet in the afternoon, 2 tablets at night for 30 days Dec, Active Start: 20-27-4701rdsRFQDIX HCl 15 MG 1 tablet Orally 1 tablet in the afternoon, 2 tablets at night for 30 days Sep, ActiveStart: 01-23-6576myzQYMJOU HCl 15 MG 1 tablet Orally 1 tablet in the afternoon, 2 tablets at night for 30 days Aug, ActiveStart: 12-95-6070awrPJDQWN HCl 15 MG 1 tablet Orally 1 tablet in the afternoon, 2 tablets at night for 30 days Jun, ActiveStart: 07-07-2021 End: 62-93-3467ehcz 1 tablet by mouth twice dailyOxycodone 15 mg tablet Discontinued 15 MG PO Twice daily July 07, 2021 12:00am June 01, 2023 1: 21pm painStart: 07-07-2021 End: 50-47-2291ybhr 7.5 mg by mouth once dailyOxycodone 15 mg tablet Discontinued 7.5 MG PO Daily July 07, 2021 12:00am June 01, 2023 1:21pmpain Start: 07-07-2021 End: 07-84-0160cefa 7.5 mg by mouth once dailyOxycodone Discontinued 7.5 MG PO Daily July 07, 2021 12:00am June 01, 2023 1:21pmStart: 10-21-3175nqmb 1 tablet by mouth every four hours as needed for painoxyCODONE HCl 5 MG 1 tablet as needed for pain Orally every 4 hrs for 7 days MED TO BED UPON DISCHARGE DOS 07/21/2021 Jun, ActiveStart: 99-67-4890rkum 1 tablet by mouth every six hoursoxyCODONE HCl 15 MG 1 tablet Orally every 6 hrs Feb, Active microencapsulated potassium chloride 10 meq extended release oral tablet (3 sources)Start: 08-01-2024 End: 76-74-7360Axezhykpy Chloride (Klor-Con M10) 10 mEq tablet,ER particles/crystals Discontinued 10 MEQ PO Daily 14 0 August 01, 2024 12:00am September 22, 2024 10:15ampredniSONE 20 mg oral tablet (10 sources)Start: 06-02-2023 End: 50-99-9219pzwi 1 tablet by mouth twice dailyPrednisone 20 mg tablet Discontinued 20 MG PO Twice daily June 02, 2023 1:00am June 29, 2023 2:29pm 12 hr tapentadol 50 mg extended release oral tablet (1 source)Opioid AgonistStart: 06-19-2015 End: 75-56-0865xnzkuhfwan (NUCYNTA ER) 50 mg Tb12 Take one tablet twice a day for pain 60 tablet 0 06/19/2015 07/30/2021 Discontinued (Course of therapy completed)Comment on above:Take one tablet twice a day for paintraMADol hydrochloride 50 mg oral tablet (10 sources)Opioid AgonistStart: 07-37-2886bxcm 1 tablet by mouth every six hours as neededtraMADol (ULTRAM) 50 mg tablet Take 50 mg by mouth every 6 hours as needed. 0 07/16/2021 ActiveComment on above:Take 50 mg by mouth every 6 hours as needed.Triamcinolone (20 sources)CorticosteroidStart: 80-93-6115Wplygjy -40 mg Feb, 120 mg zolpidem tartrate 10 mg oral tablet (1 source)gamma-Aminobutyric Acid-ergic AgonistStart: 09-04-2014 End: 41-62-3889vpzfgspe (AMBIEN) 10 mg tab Take 1 tablet at bedtime. 0 09/04/2014 07/30/2021 Discontinued (Course of therapy completed)Comment on above:Take 1 tablet at bedtime. 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]30-06-7625TapudneSysfguvv (2 sources)Bilateral senile combined form cataracts of eyes; Translations: [Combined forms of age-related cataract, bilateral]ChronicChronic obstructive pulmonary disease and bronchiectasis (15 sources)Moderate chronic obstructive pulmonary disease; Translations: [Chronic obstructive pulmonary disease, unspecified]ChronicCongestive heart failure; nonhypertensive (10 sources)Congestive heart failure; Translations: [Heart failure, unspecified] Onset: 729393-04-2847SbshoxgBrotrmpfoq and other anemia (10 sources)Anemia of chronic disease; Translations: [Anemia in other chronic diseases classified elsewhere]12-85-0924MwozctlKtpbajvyjm and other anemia (1 source)Anemia in other chronic diseases classified elsewhere; Translations: [Anemia of other chronic disease]68-52-0322HwaphltUcczmlvuw of lipid metabolism (20 sources)Hyperlipidemia; Translations: [Other hyperlipidemia]Onset: 951228-36-5759RthfluqP Codes: Fall (8 sources)Fall; Translations: [Unspecified fall, initial encounter]07-25-2024 EpisodicEssential hypertension (9 sources)Hypertensive disorder; Translations: [Essential (primary) hypertension]40-65-3998WezfdxlQfvrgwa on above:hx of-no medication currentlyProblem List clean-up per request of Phys. EHR CmteMycoses (2 sources)Histoplasmosis syndrome of left eye; Translations: [Histoplasmosis, unspecified]EpisodicNonspecific chest pain (2 sources)Rib pain; Translations: [Other chest pain]20-55-7616Olqonevn Osteoarthritis (20 sources)Osteoarthritis of left knee joint; Translations: [Unilateral primary osteoarthritis, left knee]Onset: 05-28-2021 Resolved: 24-79-1978IikzyprQaaihgktjjtl (20 sources)Primary osteoporosis; Translations: [Age-related osteoporosis without current pathological fracture]Onset: 05-28-2021 Resolved: 44-39-8033CfyzufzSzkay aftercare (20 sources)Patient encounter status; Translations: [Aftercare following joint replacement surgery]ChronicOther aftercare (4 sources)Aftercare following joint replacement surgeryOnset: 08-07-2021 Resolved: 69-39-4788FoofhqeAwuca aftercare (9 sources)Patient encounter status; Translations: [Encounter for palliative care]43-01-8181GypxcfmoYejfs aftercare (5 sources)Encounter for palliative care; Translations: [Encounter for palliative care]88-08-7213DxbeuadtBfucf and unspecified benign neoplasm (17 sources)History of polyp of colon; Translations: [History of colon polyps] EpisodicOther connective tissue disease (20 sources)Artificial knee joint present; Translations: [Presence of left artificial knee joint]26-82-6270UeobmmaLmaco connective tissue disease (4 sources)Presence of left artificial knee jointOnset: 08-07-2021 Resolved: 56-21-3458RtngptpRaxkq connective tissue disease (1 source)Neuralgia and neuritis, unspecifiedEpisodicOther connective tissue disease (4 sources)Hand pain; Translations: [Pain in left hand]89-45-8939LudylgkqSbuvw connective tissue disease (4 sources)Pain in left hand; Translations: [Pain in limb]68-91-8079Jbxlopqx Other connective tissue disease (4 sources)Pain of left hand; Translations: [Pain in left hand]06-27-2024 EpisodicOther diseases of bladder and urethra (20 sources)Overactive bladder; Translations: [Overactive bladder]05-31-2023 ChronicOther diseases of bladder and urethra (1 source)Overactive bladderChronicOther eye disorders (2 sources)H/O: L cataract extraction; Translations: [Cataract extraction status, left eye]EpisodicOther fractures (6 sources)Fracture of rib; Translations: [Fracture of one rib, unspecified side, initial encounter for closedfracture]23-19-2706GtffntdhKgpuw fractures (2 sources)Fracture of one rib, unspecified side, initial encounter for closed fracture; Translations: [Closedfracture of rib(s), unspecified]07-25-2024 EpisodicOther gastrointestinal disorders (9 sources)Constipation; Translations: [Constipation, unspecified]04-30-2024 EpisodicOther gastrointestinal disorders (5 sources)Constipation, unspecified; Translations: [Constipation, unspecified] 21-67-7640LbzokwpwFktha lower respiratory disease (17 sources)Dyspnea; Translations: [Shortness of breath]95-71-8810EmarhidkFikwp lower respiratory disease (2 sources)Shortness of breathEpisodicOther lower respiratory disease (9 sources)Cough; Translations: [Cough]01-07-5415JsfryzkpYwxqk nervous system disorders (5 sources)Complex regional pain syndrome type I; Translations: [Complex regional pain syndrome I, unspecified]Onset: 611491-12-2428PgyixdsMtvci nervous system disorders (20 sources)Expressive dysphasia; Translations: [Aphasia]11-57-5750AremdczUlkqe nervous system disorders (18 sources)Peripheral neuropathic pain; Translations: [Unspecified mononeuropathy of bilateral lower limbs]05-68-0297RzxvwjzUvwdx nervous system disorders (5 sources)Unspecified mononeuropathy of bilateral lower limbs; Translations: [Unspecified hereditary and idiopathic peripheral neuropathy]ChronicOther nervous system disorders (10 sources)Metabolic encephalopathy; Translations: [Metabolic encephalopathy] 48-98-0804OxbjrffNokbu nervous system disorders (1 source)Metabolic encephalopathy; Translations: [Metabolic encephalopathy] 60-47-4658OhnkzkfAdnho nervous system disorders (12 sources)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; Translations: [Neoplasm related pain (acute) (chronic)]67-90-6143NqjtkvgLuwll nervous system disorders (10 sources)Neoplasm related pain (acute) (chronic); Translations: [Neoplasm related pain (acute) (chronic)]48-80-6271EkdyoudHalyq nervous system disorders (1 source)Other speech disturbancesEpisodicOther non-traumatic joint disorders (6 sources)Pain in wrist; Translations: [Pain in left wrist]64-45-8237Vmthvfhy Other non-traumatic joint disorders (2 sources)Pain in left wrist; Translations: [Pain in joint, forearm]Onset: 043222-82-0067ClqjlsbvIknvb non-traumatic joint disorders (3 sources)Pain of left wrist; Translations: [Pain in left wrist]03-07-2024 EpisodicOther nutritional; endocrine; and metabolic disorders (2 sources)Body mass index 30+ - obesity; Translations: [Obesity, unspecified] Onset: 895185-84-8595ItakftdCusax skin disorders (6 sources)Generalized hyperhidrosis; Translations: [GENERALIZED HYPERHIDROSIS] Onset: 02-38-8924XncunxghItznr skin disorders (17 sources)Excessive sweating; Translations: [Generalized hyperhidrosis] 45-82-3426JqjmcfwuDvbmnnehu (except that caused by tuberculosis or sexually transmitted disease) (11 sources)Pneumonia; Translations: [Pneumonia, unspecified organism]06-02-2023 EpisodicPulmonary heart disease (20 sources)Pulmonary hypertension; Translations: [Pulmonary hypertension, unspecified]ChronicResidual codes; unclassified (6 sources)Confusional state; Translations: [Disorientation, unspecified] 47-08-9389DyrsagqgIgijvafy codes; unclassified (2 sources)Disorientation, unspecified; Translations: [Unspecified psychosis] 90-89-1509RabvxjhoDhyrdanh codes; unclassified (5 sources)Edema; Translations: [Edema, unspecified]04-80-0717WaguxcmoUomfieae codes; unclassified (1 source)Edema, unspecified; Translations: [Edema]81-33-0534PntrtkueTmshptx detachments; defects; vascular occlusion; and retinopathy (10 sources)Degenerative disorder of macula ; Translations: [Unspecified macular degeneration]91-25-3275MqxpvcbTodqgussgf (except in labor) (11 sources)Sepsis; Translations: [Sepsis, unspecified organism]06-02-2023 EpisodicSpondylosis; intervertebral disc disorders; other back problems (15 sources)Pain in thoracic spine; Translations: [Chronic thoracic back pain] EpisodicUnclassified (2 sources)CONTACT W/AND (SUSP) EXPOS COVID-19; Translations: [CONTACT W/AND (SUSP) EXPOS COVID-19]Onset: 47-17-9711Uzicr infection (1 source)COVID-19; Translations: [COVID-19]Onset: 04-09-2021 Past or Other Problems Problem ClassificationProblemDateDocumented DateEpisodic/ChronicDiabetes mellitus without complication (1 source)Impaired fasting glucose; Translations: [IMPAIRED FASTING GLUCOSE] Onset: 18-48-2162JsnkfiliQbcmy aftercare (2 sources)Other intermediate accountant (current) drug therapy; Translations: [OTH AFTER SCHOOL PROGRAM ASSISTANT CURRENT DRUG THERAPY]Onset: 05-28-2021 Resolved: 16-32-3803TbsegdfhYpmfp circulatory disease (4 sources)Other specified symptoms and signs involving the circulatory and respiratory systems; Translations:[OTH SPEC SX SIGNS INVLV CIRC RS]Onset: 53-53-1270XwvcnogiYhufn connective tissue disease (4 sources)Neuropathic pain; Translations: [Neuralgia and neuritis, unspecified] Onset: 328410-71-5398UninynklWjyyl lower respiratory disease (4 sources)Dyspnea, unspecified; Translations: [DYSPNEA UNSPECIFIED]Onset: 33-97-9589FpbaaachBoeeo nervous system disorders (4 sources)Burning sensation; Translations: [Other disturbances of skin sensation]Onset: 995164-34-4927FnzcnsycOxaqm non-traumatic joint disorders (4 sources)Pain in left knee; Translations: [PAIN IN LEFT KNEE]Onset: 02-04-2021 EpisodicUnclassified (1 source)CONTACT W/AND (SUSP) EXPOS COVID-19; Translations: [CONTACT W/AND (SUSP) EXPOS COVID-19]Onset: 04-03-2021 Results Test NameValueInterpretationReference RangeFacilityBasophils Auto (Bld) [#/Vol] on 88-08-7446Hxaygwwpv (Bld) [#/Vol]0.1 10 3/uL0.0-0.1FTriHealth McCullough-Hyde Memorial HospitalBasophils/100 WBC Auto (Bld)on 27-67-5339Jnrbpozhb/100 WBC (Bld)0.9 % 0.2-2.0[facility] CenterEosinophils/100 WBC Auto (Bld)on 04-29-2332Ujziofcbgwd/100 WBC (Bld)3.8 %0.9-7.0[facility] Erythrocyte distribution width Auto (RBC) [Ratio]on 79-36-2666Vhjjawfhrff distribution width (RBC) [Ratio]13.2 %11.0-15.0[facility] Estimated glomerular filtration rate (GFR) non- Americanon 08-11-2024 GFR/1.73 sq M.predicted among non-blacks MDRD (S/P/Bld) [Vol rate/Area]38 mL/min/{1.73_m2}Low>=60 mL/min/1.73m 2FTriHealth McCullough-Hyde Memorial HospitalGlobulin Calc (S) [Mass/Vol]on 90-12-1131Rykuzuij (S) [Mass/Vol]3.4 g/dLMetrohealth Parma Medical CenterHematocrit Auto (Bld) [Volume fraction]on 08-11-2024 Hematocrit (Bld) [Volume fraction]37.9 %36.0-48.0[facility] CenterHemoglobin [Mass/volume] in Bloodon 68-70-9006Wfenkrlvpr (Bld) [Mass/Vol] 11.7 g/dLLow12.0-16.0[facility] CenterIron binding capacity [Mass/volume] in Serum or Plasmaon 72-21-6601Jvvb binding capacity [Mass/Vol] 311.0 ug/dL250.0-450.0[facility] CenterIron saturation [Mass Fraction] in Serum or Plasmaon 72-80-0649Ygiz saturation [Mass fraction]26.4 % [facility] CenterLaboratory - Chemistry and Chemistry - challengeon 35-82-9906Wzaaucn [Mass/Vol]3.8 g/dL3.4-5.0[facility] CenterALP [Catalytic activity/Vol]82 U/U67-353ZxggkuoprMetrohealth Parma Medical CenterALT [Catalytic activity/Vol]29 U/H45-22UxuivygbtMetrohealth [facility] Medical Center AST [Catalytic activity/Vol]21 U/B24-57IyhayxjfbMetrohealth Par[facility] Medical Center Bilirubin [Mass/Vol]0.5 mg/dL0.2-1.0[facility] CenterCalcium [Mass/Vol]9.4 mg/dL8.5-10.1FTriHealth McCullough-Hy[facility] Memorial HospitalChloride [Moles/Vol] 103 mmol/E99-983JbfvflbpmMetrohealth Parma Medical CenterCO2 [Moles/Vol]34.1 mmol/LHigh 21.0-32.0[facility] CenterCobalamin (Vitamin B12) [Mass/Vol]1895 pg/vYMpnngrzz085-5720VqwbsmvwaMetrohealth Parma Medical CenterComment on above: Performed at: - [facility] [address] [id number] Director: Larry Nicolas PhD, Phone: [phone] [Mass/Vol]1.33 mg/dLHigh0.55-1.02[facility] CenterFerritin [Mass/Vol]108.0 ng/mL8.0-252.0[facility] CenterGFR/1.73 sq M.predicted MDRD (S/P/Bld) [Vol rate/Area]47 mL/min/{1.73_m2}Low>=60 mL/min/1.73m 2FTriHealth McCullough-Hyde Memorial HospitalGlucose [Mass/Vol]107 mg/bNCrug63-984RghgxclgxMetrohealth Parma Medical CenterIron [Mass/Vol]82.0 ug/dL50.0-170.0[facility] CenterPotassium [Moles/Vol]5.1 mmol/L3.5-5.1FTri[facility] Protein [Mass/Vol]7.2 g/dL6.4-8.2FPaulding County Hospitalodium [Moles/Vol]141 mmol/D510-778GeahvueyzMetrohealth Parma Medical CenterUrea nitrogen [Mass/Vol]29.0 mg/dLHigh7.0-18.0[facility] CenterUrea nitrogen/Creatinine [Mass ratio]21.8 mg/mgMet[facility]health [facility] Center Laboratory - Hematology and Cell countson 85-22-4897XTB (Bld) [Velocity]28 mm/h <=30[facility] CenterImmature granulocytes/100 WBC (Bld)0.7 % High0.0-0.5FTriHealth McCullough-Hyde Memorial HospitalLeukocytes [#/volume] corrected for nucleated erythrocytes in Blood by Automated counon 86-80-1827KSB corrected for nucl RBC Auto (Bld) [#/Vol]8.1 10 3/uL4.0-11.0[facility] Lymphocytes Auto (Bld) [#/Vol]on 78-37-4458Gprxaotmdix (Bld) [#/Vol]2.9 10 3/uL 1.2-3.8[facility] CenterLymphocytes/100 WBC Auto (Bld)on 57-37-9065Ffqbckzooyc/100 WBC (Bld)35.7 %20.5-60.0[facility] HospitalH Auto (RBC) [Entitic mass]on 76-78-1697AMG (RBC) [Entitic mass]30.2 pg 26.7-34.0[facility] CenterMCHC Auto (RBC) [Mass/Vol]on 49-18-1139LQWP (RBC) [Mass/Vol]30.9 g/dL29.9-35.2FTriHealth McCullough-Hyde Memorial HospitalMCV Auto (RBC) [Entitic vol]on 34-14-8121PON (RBC) [Entitic vol]97.9 fL 81.0-99.0[facility] CenterMonocytes Auto (Bld) [#/Vol]on 64-18-8111Yermkufco (Bld) [#/Vol]0.6 10 3/uL0.3-0.8[facility] CenterMonocytes/100 WBC Auto (Bld)on 32-38-8147Zebnnrokh/100 WBC (Bld)7.5 % 1.7-12.0[facility] CenterNeutrophils Auto (Bld) [#/Vol]on 13-97-7062Mnttikbedth (Bld) [#/Vol]4.2 10 3/uL1.4-6.5FTriHealth McCullough-Hy[facility] Memorial HospitalNeutrophils/100 WBC Auto (Bld)on 70-82-2325Loqaeyjwpye/100 WBC (Bld)51.4 % 43.0-75.0[facility] CenterNo Panel Informationon 13-91-6950Q- Reactive Protein, Quantitative<0.50 mg/dL<=0.50[facility] Eosinophils # (Auto)0.3 10 3/uL0.0-0.7FTriHealth McCull[facility]-Hy[facility] Memorial HospitalImmature Granulocyte # (Auto)0.06 10 3/uLHigh0.00-0.03[facility] Platelet mean volume Auto (Bld) [Entitic vol]on 31-73-9240Rcgafjia mean volume (Bld) [Entitic vol]9.9 fL9.5-13.5FTriHealth McCull[facility]-Hy[facility] Memorial HospitalPlatelets Auto (Bld) [#/Vol]on 57-81-5779Poplwcsqo (Bld) [#/Vol]318 10 3/cX107-891SdtzjgyxeMetrohealth Parma Medical CenterRBC Auto (Bld) [#/Vol]on 47-44-2180IYQ (Bld) [#/Vol]3.87 10 6/uLLow4.20-5.40[facility] Hospitalerum or plasma albumin/globulin mass ratioon 48-67-4037Ncxafle/Globulin [Mass ratio]1.1 {ratio} [facility] Hospitalerum or plasma anion gap determinationon 96-70-1898Assvn gap [Moles/Vol]9.0 mmol/LFTriHealth McCullough-Hyde Memorial Hospital Estimated glomerular filtration rate (GFR) non- Americanon 08-01-2024 GFR/1.73 sq M.predicted among non-blacks MDRD (S/P/Bld) [Vol rate/Area]47 mL/min/{1.73_m2}Low>=60 mL/min/1.73m 2FTriHealth [facility] Hospital Laboratory - Chemistry and Chemistry - challengeon 03-12-2032Ehpwgpe [Mass/Vol] 9.3 mg/dL8.5-10.1FTriHealth McCullough-Hy[facility] Memorial HospitalChloride [Moles/Vol]104 mmol/L 98-107[facility] CenterCO2 [Moles/Vol]27.8 mmol/L21.0-32.0 [facility] CenterCreatinine [Mass/Vol]1.12 mg/dLHigh0.55-1.02 [facility] CenterGFR/1.73 sq M.predicted MDRD (S/P/Bld) [Vol rate/Area]57 mL/min/{1.73_m2}Low>=60 mL/min/1.73m [address] [place], [place] [address]Glucose [Mass/Vol]108 mg/sZBhzn21-923QcchjfzevMetrohealth [facility] Center Natriuretic peptide B (Bld) [Mass/Vol]4619.0 pg/mLCritically high<=1800.0 [facility] CenterComment on above:RESULTS CALLED TO TEVIN ELLIS Potassium [Moles/Vol]4.2 mmol/L3.5-5.1FPaulding County Hospitalodium [Moles/Vol]142 mmol/A953-085QdtrbrzdfMetrohealth Parma Medical CenterUrea nitrogen [Mass/Vol]16.0 mg/dL7.0-18.0[facility] CenterUrea nitrogen/Creatinine [Mass ratio]14.3 mg/mgHocking Valley Community Hospitalerum or plasma anion gap determinationon 84-22-4056Oldkg gap [Moles/Vol]14.4 mmol/L [facility] CenterBasophils Auto (Bld) [#/Vol]on 07-28-2024 Basophils (Bld) [#/Vol]Automated basophil count0.0-0.1FTriHealth [facility]ull[facility] HospitalBasophils (Bld) [#/Vol]0.0 10 3/uL0.0-0.1FTriHealth [facility] HospitalBasophils/100 WBC Auto (Bld)on 35-97-3230Eoiobfcvo/100 WBC (Bld)Automated basophil %0.2-2.0[facility] CenterBasophils/100 WBC (Bld)0.4 % 0.2-2.0[facility] CenterEosinophils/100 WBC Auto (Bld)on 84-98-3852Npcyqetujvj/100 WBC (Bld)Automated eosinophil %0.9-7.0[facility] CenterEosinophils/100 WBC (Bld)1.0 %0.9-7.0[facility] CenterErythrocyte distribution width Auto (RBC) [Ratio]on 07-28-2024 Erythrocyte distribution width (RBC) [Ratio]Erythrocyte distribution width [Ratio] by Automated count11.0-15.0[facility] CenterErythrocyte distribution width (RBC) [Ratio]12.5 %11.0-15.0[facility] Estimated glomerular filtration rate (GFR) non- Americanon 07-28-2024 GFR/1.73 sq M.predicted among non-blacks MDRD (S/P/Bld) [Vol rate/Area]Estimated glomerular filtration rate (GFR) non- AmericanLow>=60 mL/min/1.73m 2 [facility] CenterGFR/1.73 sq M.predicted among non-blacks MDRD (S/P/Bld) [Vol rate/Area]51 mL/min/{1.73_m2}Low>=60 mL/min/1.73m 2FTriHealth McCullough-Hyde Memorial HospitalHematocrit Auto (Bld) [Volume fraction]on 07-28-2024 Hematocrit (Bld) [Volume fraction]Hematocrit [Volume Fraction] of Blood by Automated hfkjhPzt81.0-48.0[facility] CenterHematocrit (Bld) [Volume fraction]31.0 %Low36.0-48.0[facility] CenterHemoglobin [Mass/volume] in Bloodon 23-67-2568Jfslerdfop (Bld) [Mass/Vol]Hemoglobin [Mass/volume] in ScjinHbe52.0-16.0[facility] CenterHemoglobin (Bld) [Mass/Vol]9.9 g/dLLow12.0-16.0[facility] CenterLaboratory - Chemistry and Chemistry - challengeon 31-48-4660Xyxmqgy [Mass/Vol]9.0 mg/dL 8.5-10.1FTriHealth McCull[facility] HospitalChloride [Moles/Vol]110 mmol/LHigh 98-107[facility] CenterCO2 [Moles/Vol]26.0 mmol/L21.0-32.0 [facility] CenterCreatinine [Mass/Vol]1.05 mg/dLHigh0.55-1.02 [facility] CenterGFR/1.73 sq M.predicted MDRD (S/P/Bld) [Vol rate/Area]mL/min/{1.73_m2}>=60 mL/min/1.73m 2FTriHealth [facility] Glucose [Mass/Vol]112 mg/qIAfwj01-460LdaxoetkoMetrohealth Parma Medical CenterPotassium [Moles/Vol]5.1 mmol/L3.5-5.1FPaulding County Hospitalodium [Moles/Vol] 144 mmol/P616-735RtnnerausMetrohealth Parma Medical CenterUrea nitrogen [Mass/Vol]24.0 mg/dLHigh7.0-18.0[facility] CenterUrea nitrogen/Creatinine [Mass ratio]22.9 mg/mgMetrohealth Parma Medical CenterLaboratory - Hematology and Cell countson 32-11-9674Wlupohpk granulocytes/100 WBC (Bld)0.8 %High0.0-0.5 [facility] CenterLeukocytes [#/volume] corrected for nucleated erythrocytes in Blood by Automated counon 48-76-8548WVW corrected for nucl RBC Auto (Bld) [#/Vol]Leukocytes [#/volume] corrected for nucleated erythrocytes in Blood by Automated coun4.0-11.0[facility] CenterWBC corrected for nucl RBC Auto (Bld) [#/Vol]7.4 10 3/uL4.0-11.0[facility] CenterLymphocytes Auto (Bld) [#/Vol]on 21-51-4291Shtoiulrric (Bld) [#/Vol] Lymphocytes [#/volume] in Blood by Automated count1.2-3.8[facility] CenterLymphocytes (Bld) [#/Vol]1.9 10 3/uL1.2-3.8[facility] CenterLymphocytes/100 WBC Auto (Bld)on 49-40-4022Uouuexccgka/100 WBC (Bld)Lymphocytes/100 leukocytes in Blood by Automated count20.5-60.0[facility] CenterLymphocytes/100 WBC (Bld)25.3 %20.5-60.0[facility] HospitalH Auto (RBC) [Entitic mass]on 84-89-4796UUM (RBC) [Entitic mass]MCH [Entitic mass] by Automated count26.7-34.0[facility] (RBC) [Entitic mass]31.0 pg26.7-34.0[facility] HospitalHC Auto (RBC) [Mass/Vol]on 09-71-3879DVUB (RBC) [Mass/Vol]MCHC [Mass/volume] by Automated count29.9-35.2FTriHealth McCull[facility]-Hy[facility] Memorial HospitalMCHC (RBC) [Mass/Vol]31.9 g/dL29.9-35.2FTriHealth [facility] HospitalMCV Auto (RBC) [Entitic vol]on 65-53-7930YTO (RBC) [Entitic vol]MCV [Entitic volume] by Automated count81.0-99.0[facility] CenterMCV (RBC) [Entitic vol] 97.2 fL81.0-99.0[facility] CenterMonocytes Auto (Bld) [#/Vol]on 67-72-6322Zcqrjekqa (Bld) [#/Vol]Automated blood monocyte count0.3-0.8[facility] CenterMonocytes (Bld) [#/Vol]0.4 10 3/uL0.3-0.8[facility] CenterMonocytes/100 WBC Auto (Bld)on 62-08-5733Oeyeqakhq/100 WBC (Bld)Automated monocyte %1.7-12.0[facility] Monocytes/100 WBC (Bld)5.6 %1.7-12.0[facility] CenterNeutrophils Auto (Bld) [#/Vol]on 74-84-1798Zwwcqcrtzre (Bld) [#/Vol]Neutrophils [#/volume] in Blood by Automated count1.4-6.5FTriHealth [facility] HospitalNeutrophils (Bld) [#/Vol]4.9 10 3/uL1.4-6.5FTriHealth [facility] HospitalNeutrophils/100 WBC Auto (Bld)on 30-48-0702Wmhnplyczbv/100 WBC (Bld)Automated neutrophil % 43.0-75.0[facility] CenterNeutrophils/100 WBC (Bld)66.9 % 43.0-75.0[facility] CenterNo Panel Informationon 07-28-2024 Eosinophils # (Auto)0.1 10 3/uL0.0-0.7FTriHealth McCull[facility] HospitalImmature Granulocyte # (Auto)0.06 10 3/uLHigh0.00-0.03[facility] Platelet mean volume Auto (Bld) [Entitic vol]on 79-19-7314Rbsxmmjg mean volume (Bld) [Entitic vol]Platelet mean volume [Entitic volume] in Blood by Automated count9.5-13.5FTriHealth McCull[facility]-Hy[facility] HospitalPlatelet mean volume (Bld) [Entitic vol]10.5 fL9.5-13.5FTriHealth McCull[facility]-Hy[facility] Memorial HospitalPlatelets Auto (Bld) [#/Vol]on 25-83-2681Mwxwltfyd (Bld) [#/Vol]Platelets [#/volume] in Blood by Automated pgajj306-122DrohfgdkkMetrohealth Parma Medical CenterPlatelets (Bld) [#/Vol]164 10 3/nT638-125XegqdosqtMetrohealth Parma Medical CenterRBC Auto (Bld) [#/Vol] on 62-90-5147RVS (Bld) [#/Vol]Erythrocytes [#/volume] in Blood by Automated countLow4.20-5.40[facility] CenterRBC (Bld) [#/Vol]3.19 10 6/uL Low4.20-5.40[facility] Hospitalerum or plasma anion gap determinationon 09-18-6276Pwhkr gap [Moles/Vol]Serum or plasma anion gap determinationMetrohealth Parma Medical CenterAnion gap [Moles/Vol]13.1 mmol/L [facility] CenterErythrocyte distribution width Auto (RBC) [Ratio]on 97-33-4425Slfvzinlkul distribution width (RBC) [Ratio]Erythrocyte distribution width [Ratio] by Automated count11.0-15.0[facility] CenterErythrocyte distribution width (RBC) [Ratio]12.6 %11.0-15.0[facility] CenterEstimated glomerular filtration rate (GFR) non- Americanon 37-76-3799VCG/1.73 sq M.predicted among non-blacks MDRD (S/P/Bld) [Vol rate/Area]Estimated glomerular filtration rate (GFR) non- Low>=60 mL/min/1.73m 2FTriHealth McCullough-Hyde Memorial HospitalGFR/1.73 sq M.predicted among non-blacks MDRD (S/P/Bld) [Vol rate/Area]35 mL/min/{1.73_m2}Low>=60 mL/min/1.73m 2FTriHealth [facility]ull[facility] Memorial HospitalHematocrit Auto (Bld) [Volume fraction]on 90-56-1593Eqbrbrmkht (Bld) [Volume fraction]Hematocrit [Volume Fraction] of Blood by Automated qhpywDfk22.0-48.0[facility] CenterHematocrit (Bld) [Volume fraction]29.5 %Low36.0-48.0[facility] CenterHemoglobin [Mass/volume] in Bloodon 45-78-5981Qabrxxqtls (Bld) [Mass/Vol]Hemoglobin [Mass/volume] in PvyxbIfl57.0-16.0[facility] CenterHemoglobin (Bld) [Mass/Vol]9.4 g/dLLow12.0-16.0[facility] CenterLaboratory - Chemistry and Chemistry - challengeon 07-27-2024 Calcium [Mass/Vol]9.1 mg/dL8.5-10.1FTriHealth McCullough-Hyde Memorial HospitalChloride [Moles/Vol]110 mmol/RDbbm23-837GyrkldcehMetrohealth Parma Medical CenterCO2 [Moles/Vol] 29.1 mmol/L21.0-32.0[facility] CenterCreatinine [Mass/Vol]1.46 mg/dLHigh0.55-1.02[facility] CenterGFR/1.73 sq M.predicted MDRD (S/P/Bld) [Vol rate/Area]42 mL/min/{1.73_m2}Low>=60 mL/min/1.73m 2FTriHealth McCullough-Hyde Memorial HospitalGlucose [Mass/Vol]114 mg/cSGghb85-969PlqdzzufuMetrohealth Parma Medical CenterPotassium [Moles/Vol]5.6 mmol/LHigh3.5-5.1FPaulding County Hospitalodium [Moles/Vol]144 mmol/V630-882AcghexesrMetrohealth Parma Medical CenterUrea nitrogen [Mass/Vol]46.0 mg/dLHigh7.0-18.0[facility] CenterUrea nitrogen/Creatinine [Mass ratio]31.5 mg/mgMetrohealth Parma Medical CenterLeukocytes [#/volume] corrected for nucleated erythrocytes in Blood by Automated counon 63-17-1289LTU corrected for nucl RBC Auto (Bld) [#/Vol] Leukocytes [#/volume] corrected for nucleated erythrocytes in Blood by Automated coun4.0-11.0[facility] CenterWBC corrected for nucl RBC Auto (Bld) [#/Vol]6.2 10 3/uL4.0-11.0[facility] Auto (RBC) [Entitic mass]on 06-82-0160TFW (RBC) [Entitic mass]MCH [Entitic mass] by Automated count26.7-34.0[facility] HospitalH (RBC) [Entitic mass]30.6 pg26.7-34.0[facility] HospitalHC Auto (RBC) [Mass/Vol] on 99-36-5395LDQI (RBC) [Mass/Vol]MCHC [Mass/volume] by Automated count29.9-35.2 [facility] HospitalHC (RBC) [Mass/Vol]31.9 g/dL29.9-35.2 [facility] HospitalV Auto (RBC) [Entitic vol]on 17-59-3370SBG (RBC) [Entitic vol]MCV [Entitic volume] by Automated count81.0-99.0[facility] HospitalV (RBC) [Entitic vol]96.1 fL81.0-99.0[facility] CenterPlatelet mean volume Auto (Bld) [Entitic vol]on 21-40-9860Nzgyolcc mean volume (Bld) [Entitic vol]Platelet mean volume [Entitic volume] in Blood by Automated count9.5-13.5FTriHealth McCullough-Hyde Memorial HospitalPlatelet mean volume (Bld) [Entitic vol]10.1 fL9.5-13.5FTriHealth McCullough-Hy[facility] Memorial HospitalPlatelets Auto (Bld) [#/Vol]on 83-86-1839Rgurvxsyx (Bld) [#/Vol]Platelets [#/volume] in Blood by Automated -471TnucihbhtMetrohealth Parma Medical CenterPlatelets (Bld) [#/Vol]178 10 3/qE933-035RmiveqajaMetrohealth Parma Medical CenterRBC Auto (Bld) [#/Vol] on 16-75-5854RTL (Bld) [#/Vol]Erythrocytes [#/volume] in Blood by Automated countLow4.20-5.40[facility] CenterRBC (Bld) [#/Vol]3.07 10 6/uL Low4.20-5.40[facility] Hospitalerum or plasma anion gap determinationon 87-56-6332Hnnsp gap [Moles/Vol]Serum or plasma anion gap determinationMetrohealth Parma Medical CenterAnion gap [Moles/Vol]10.5 mmol/L [facility] CenterErythrocyte distribution width Auto (RBC) [Ratio]on 40-17-5334Tjetxjzmkla distribution width (RBC) [Ratio]Erythrocyte distribution width [Ratio] by Automated count11.0-15.0[facility] CenterErythrocyte distribution width (RBC) [Ratio]13.0 %11.0-15.0[facility] CenterEstimated glomerular filtration rate (GFR) non- Americanon 86-60-6953SHL/1.73 sq M.predicted among non-blacks MDRD (S/P/Bld) [Vol rate/Area]Estimated glomerular filtration rate (GFR) non- Low>=60 mL/min/1.73m 2FTriHealth McCullough-Hyde Memorial HospitalGFR/1.73 sq M.predicted among non-blacks MDRD (S/P/Bld) [Vol rate/Area]15 mL/min/{1.73_m2}Low>=60 mL/min/1.73m 2FTriHealth McCullough-Hyde Memorial HospitalHematocrit Auto (Bld) [Volume fraction]on 37-68-5586Qgfqciqokr (Bld) [Volume fraction]Hematocrit [Volume Fraction] of Blood by Automated wuilxErs65.0-48.0[facility] CenterHematocrit (Bld) [Volume fraction]29.7 %Low36.0-48.0[facility] CenterHemoglobin [Mass/volume] in Bloodon 55-96-4181Zrpdveyynj (Bld) [Mass/Vol]Hemoglobin [Mass/volume] in WdsjsYcd12.0-16.0[facility] CenterHemoglobin (Bld) [Mass/Vol]9.4 g/dLLow12.0-16.0[facility] CenterLaboratory - Chemistry and Chemistry - challengeon 07-26-2024 Potassium [Moles/Vol]5.3 mmol/LHigh3.5-5.1FTri[facility] Calcium [Mass/Vol]8.9 mg/dL8.5-10.1FTriHealth McCull[facility] Memorial HospitalChloride [Moles/Vol]106 mmol/D46-227RjphpaiwoMetrohealth Parma Medical CenterCO2 [Moles/Vol]27.2 mmol/L21.0-32.0[facility] CenterCreatinine [Mass/Vol]3.07 mg/dL High0.55-1.02[facility] CenterGFR/1.73 sq M.predicted MDRD (S/P/Bld) [Vol rate/Area]18 mL/min/{1.73_m2}Low>=60 mL/min/1.73m 2FTriHealth McCullough-Hyde Memorial HospitalGlucose [Mass/Vol]113 mg/mJMcdy44-297OyogsshqnHocking Valley Community Hospitalodium [Moles/Vol]141 mmol/W587-692QipiuunzrMetrohealth [facility] Medical CenterUrea nitrogen [Mass/Vol]78.0 mg/dLCritically high7.0-18.0[facility] CenterComment on above:RESULTS CALLED TO LAURE NELSON RN @BY Maria Victoria Pearl 0617Urea nitrogen/Creatinine [Mass ratio]25.4 mg/mg [facility] CenterLeukocytes [#/volume] corrected for nucleated erythrocytes in Blood by Automated counon 97-23-5777YVF corrected for nucl RBC Auto (Bld) [#/Vol]Leukocytes [#/volume] corrected for nucleated erythrocytes in Blood by Automated coun4.0-11.0[facility] CenterWBC corrected for nucl RBC Auto (Bld) [#/Vol]7.2 10 3/uL4.0-11.0[facility] Auto (RBC) [Entitic mass]on 42-58-5849MTI (RBC) [Entitic mass]MCH [Entitic mass] by Automated count26.7-34.0[facility] (RBC) [Entitic mass]31.0 pg26.7-34.0[facility] HospitalHC Auto (RBC) [Mass/Vol]on 94-92-2114SZPN (RBC) [Mass/Vol]MCHC [Mass/volume] by Automated count29.9-35.2FCleveland Clinic Mercy HospitalHC (RBC) [Mass/Vol] 31.6 g/dL29.9-35.2FTriHealth McCullough-Hy[facility] Memorial HospitalMCV Auto (RBC) [Entitic vol] on 86-86-1998SZK (RBC) [Entitic vol]MCV [Entitic volume] by Automated count 81.0-99.0[facility] CenterMCV (RBC) [Entitic vol]98.0 fL 81.0-99.0[facility] CenterPlatelet mean volume Auto (Bld) [Entitic vol]on 96-14-6279Gwqseyps mean volume (Bld) [Entitic vol]Platelet mean volume [Entitic volume] in Blood by Automated count9.5-13.5FTriHealth McCullough-Hy[facility] Memorial HospitalPlatelet mean volume (Bld) [Entitic vol]10.0 fL9.5-13.5FTriHealth McCullough-Hyde Memorial HospitalPlatelets Auto (Bld) [#/Vol]on 90-63-1693Lownlpyer (Bld) [#/Vol]Platelets [#/volume] in Blood by Automated niwjq907-945YksiwqefqMetrohealth Parma Medical CenterPlatelets (Bld) [#/Vol]185 10 3/xH110-948IvqduwsgvMetrohealth Parma Medical CenterRBC Auto (Bld) [#/Vol]on 35-30-5761OBV (Bld) [#/Vol]Erythrocytes [#/volume] in Blood by Automated countLow4.20-5.40[facility] CenterRBC (Bld) [#/Vol]3.03 10 6/uLLow4.20-5.40[facility] Serum or plasma anion gap determinationon 13-84-1490Vmuwc gap [Moles/Vol]Serum or plasma anion gap determinationMetrohealth Parma Medical CenterAnion gap [Moles/Vol]13.6 mmol/LFTriHealth McCullough-Hyde Memorial HospitalBasophils Auto (Bld) [#/Vol]on 46-83-7244Dhlhetjot (Bld) [#/Vol]Automated basophil count0.0-0.1 [facility] CenterBasophils (Bld) [#/Vol]0.0 10 3/uL0.0-0.1 [facility] CenterBasophils/100 WBC Auto (Bld)on 07-25-2024 Basophils/100 WBC (Bld)Automated basophil %0.2-2.0[facility] CenterBasophils/100 WBC (Bld)0.4 %0.2-2.0[facility] Eosinophils/100 WBC Auto (Bld)on 63-25-4155Eflkjvcsjxc/100 WBC (Bld)Automated eosinophil %0.9-7.0[facility] CenterEosinophils/100 WBC (Bld)3.4 %0.9-7.0[facility] CenterErythrocyte distribution width Auto (RBC) [Ratio]on 07-17-5066Iwobloqjkvt distribution width (RBC) [Ratio] Erythrocyte distribution width [Ratio] by Automated count11.0-15.0[facility] CenterErythrocyte distribution width (RBC) [Ratio]12.9 % 11.0-15.0[facility] CenterEstimated glomerular filtration rate (GFR) non- Americanon 36-80-0201CWA/1.73 sq M.predicted among non-blacks MDRD (S/P/Bld) [Vol rate/Area]Estimated glomerular filtration rate (GFR) non- AmericanLow>=60 mL/min/1.73m 2FTriHealth McCullough-Hyde Memorial HospitalGFR/1.73 sq M.predicted among non-blacks MDRD (S/P/Bld) [Vol rate/Area]11 mL/min/{1.73_m2}Low>=60 mL/min/1.[address]m [address] [place], [place] [address]Globulin Calc (S) [Mass/Vol]on 29-75-7385Uswpyqfm (S) [Mass/Vol]Serum globulin measurement by calculation (mass/volume)[facility] Globulin (S) [Mass/Vol]3.3 g/dLMetrohealth Parma Medical CenterHematocrit Auto (Bld) [Volume fraction]on 91-41-6453Ijdteshxnb (Bld) [Volume fraction]Hematocrit [Volume Fraction] of Blood by Automated cuthmJlz96.0-48.0[facility] CenterHematocrit (Bld) [Volume fraction]32.0 %Low36.0-48.0[facility] CenterHemoglobin [Mass/volume] in Bloodon 81-96-2961Ngogpfrkhb (Bld) [Mass/Vol]Hemoglobin [Mass/volume] in DjhubLns77.0-16.0[facility] CenterHemoglobin (Bld) [Mass/Vol]10.3 g/dLLow12.0-16.0[facility] CenterLaboratory - Chemistry and Chemistry - challengeon 07-25-2024 Potassium [Moles/Vol]5.8 mmol/LHigh3.5-5.1FTri[facility] Albumin [Mass/Vol]3.5 g/dL3.4-5.0[facility] CenterALP [Catalytic activity/Vol]81 U/H97-256IugrabrjhMetrohealth Parma Medical CenterALT [Catalytic activity/Vol]15 U/M75-10GjdmgyodtMetrohealth Parma Medical CenterAST [Catalytic activity/Vol]18 U/Y57-82CmidhbtozMet[facility]health [facility] Medical CenterBilirubin [Mass/Vol]0.3 mg/dL0.2-1.0[facility] CenterCalcium [Mass/Vol]9.3 mg/dL 8.5-10.1FTriHealth McCullough-Hy[facility] Memorial HospitalChloride [Moles/Vol]100 mmol/L98-107 [facility] CenterCO2 [Moles/Vol]28.3 mmol/L21.0-32.0[facility] CenterCreatinine [Mass/Vol]3.88 mg/dLHigh0.55-1.02[facility] CenterGFR/1.73 sq M.predicted MDRD (S/P/Bld) [Vol rate/Area]14 mL/min/{1.73_m2}Low>=60 mL/min/1.73m 2FTriHealth McCull[facility]-Hy[facility] Memorial HospitalGlucose [Mass/Vol]112 mg/kUKddy21-987RfmfgjksrMetrohealth [facility] Medical CenterProtein [Mass/Vol] 6.8 g/dL6.4-8.2FPaulding County Hospitalodium [Moles/Vol]136 mmol/L 136-145[facility] CenterUrea nitrogen [Mass/Vol]83.0 mg/dL Critically high7.0-18.0[facility] CenterComment on above:RESULTS CALLED TO Melissa Gupta RNUrea nitrogen/Creatinine [Mass ratio]21.4 mg/mg [facility] CenterTS Qn1.217 m[IU]/L0.358-3.740[facility] CenterLaboratory - Hematology and Cell countson 07-25-2024 Immature granulocytes/100 WBC (Bld)0.4 %0.0-0.5FTriHealth [facility] Leukocytes [#/volume] corrected for nucleated erythrocytes in Blood by Automated counon 26-77-9632EPR corrected for nucl RBC Auto (Bld) [#/Vol]Leukocytes [#/volume] corrected for nucleated erythrocytes in Blood by Automated coun 4.0-11.0[facility] CenterWBC corrected for nucl RBC Auto (Bld) [#/Vol]10.9 10 3/uL4.0-11.0[facility] CenterLymphocytes Auto (Bld) [#/Vol]on 44-60-1225Eaoucxleapu (Bld) [#/Vol]Lymphocytes [#/volume] in Blood by Automated count1.2-3.8[facility] CenterLymphocytes (Bld) [#/Vol]2.5 10 3/uL1.2-3.8[facility] CenterLymphocytes/100 WBC Auto (Bld)on 93-20-2430Zpcbgychguf/100 WBC (Bld)Lymphocytes/100 leukocytes in Blood by Automated count20.5-60.0[facility] Lymphocytes/100 WBC (Bld)22.4 %20.5-60.0[facility] HospitalH Auto (RBC) [Entitic mass]on 88-61-9377HQA (RBC) [Entitic mass]MCH [Entitic mass] by Automated count26.7-34.0[facility] HospitalH (RBC) [Entitic mass]31.2 pg26.7-34.0[facility] CenterMCHC Auto (RBC) [Mass/Vol] on 62-34-2618YHPO (RBC) [Mass/Vol]MCHC [Mass/volume] by Automated count29.9-35.2 [facility] CenterMCHC (RBC) [Mass/Vol]32.2 g/dL29.9-35.2 [facility] CenterMCV Auto (RBC) [Entitic vol]on 25-09-1372JMU (RBC) [Entitic vol]MCV [Entitic volume] by Automated count81.0-99.0[facility] CenterMCV (RBC) [Entitic vol]97.0 fL81.0-99.0[facility] CenterMonocytes Auto (Bld) [#/Vol]on 80-10-6000Gcvfrvmej (Bld) [#/Vol] Automated blood monocyte count0.3-0.8[facility] CenterMonocytes (Bld) [#/Vol]0.7 10 3/uL0.3-0.8[facility] CenterMonocytes/100 WBC Auto (Bld)on 76-61-3057Irdnztbkr/100 WBC (Bld)Automated monocyte %1.7-12.0 [facility] CenterMonocytes/100 WBC (Bld)6.3 %1.7-12.0[facility] CenterNeutrophils Auto (Bld) [#/Vol]on 58-83-3217Yiljcvliyqp (Bld) [#/Vol]Neutrophils [#/volume] in Blood by Automated countHigh1.4-6.5 [facility] CenterNeutrophils (Bld) [#/Vol]7.3 10 3/uLHigh1.4-6.5 [facility] CenterNeutrophils/100 WBC Auto (Bld)on 07-25-2024 Neutrophils/100 WBC (Bld)Automated neutrophil %43.0-75.0[facility] CenterNeutrophils/100 WBC (Bld)67.1 %43.0-75.0[facility] CenterNo Panel Informationon 19-83-8366Jtspjhph I High Sensitivity9.5 pg/mL 4.0-51.3FTriHealth McCullough-Hyde Memorial HospitalComment on above:CUT-OFF POINTS HAVE BEEN ESTABLISHED [...] DIAGNOSTIC AND CLINICAL INFORMATION.Eosinophils # (Auto)0.4 10 3/uL0.0-0.7FTriHealth McCullough-Hyde Memorial HospitalImmature Granulocyte # (Auto)0.04 10 3/uLHigh0.00-0.03[facility] CenterPlatelet mean volume Auto (Bld) [Entitic vol]on 19-17-8097Hbkcxvfe mean volume (Bld) [Entitic vol]Platelet mean volume [Entitic volume] in Blood by Automated count9.5-13.5 [facility] CenterPlatelet mean volume (Bld) [Entitic vol]10.5 fL 9.5-13.5FTriHealth McCullough-Hyde Memorial HospitalPlatelets Auto (Bld) [#/Vol]on 56-55-2269Ajthphupu (Bld) [#/Vol]Platelets [#/volume] in Blood by Automated iuipd009-167NohtinqknMetrohealth Parma Medical CenterPlatelets (Bld) [#/Vol]233 10 3/uL 150-450[facility] CenterRBC Auto (Bld) [#/Vol]on 63-72-4856KZB (Bld) [#/Vol]Erythrocytes [#/volume] in Blood by Automated countLow4.20-5.40 [facility] CenterRBC (Bld) [#/Vol]3.30 10 6/uLLow4.20-5.40 [facility] Hospitalerum or plasma albumin/globulin mass ratioon 26-98-1139Vkldfyp/Globulin [Mass ratio]Serum or plasma albumin/globulin mass ratioMetrohealth Parma Medical CenterAlbumin/Globulin [Mass ratio]1.1 {ratio} [facility] Hospitalerum or plasma anion gap determinationon 41-64-9457Xhmen gap [Moles/Vol]Serum or plasma anion gap determinationMetrohealth Parma Medical CenterAnion gap [Moles/Vol]13.9 mmol/LFTriHealth McCullough-Hyde Memorial HospitalX-ray reportOrdered By: Wale Wilburn on 90-45-0440Xsxav report [facility] [address] [place] [address] XRay Report Signed Patient: Catherine Tang MR# : [id number] : 1945 Acct:[id number] Age/Sex: 79 / F ADM Date: 5 [place] [facility] [place] [facility]: Paty Booth MD Copies to: [...] Wale Wilburn M.D.06/27/2024 7:49 PM Dictation Location: [place] [address] Transcribed By: [facility] 06/27/241948 Dictated By: Wale Wilburn DO 06/27/241947 Signed By: 06/27/241948 [facility] CenterXR wrist LT min 3V*on 47-03-0870QO wrist LT min 3V*[facility] [address] [place] [address] XRay Report Signed Patient: Catherine Tang MR#: [id number] : 1945 Acct:[id number] Age/Sex: 79 / F ADM Date: 06/27/24 [place] [facility] [place] [facility] Dr: Paty Booth MD Copies to: [...] Wale Wilburn M.D.06/27/2024 7:49 PM Dictation Location: [place] [address] Transcribed By: [facility] 06/27/241948 Dictated By: Wale Wilburn DO 06/27/241947 Signed By: 06/27/241948[facility] Physician GroupBasophils Auto (Bld) [#/Vol]on 07-34-9568Hmxlbxdcg (Bld) [#/Vol]Automated basophil count0.0-0.1FTriHealth McCullough-Hyde Memorial HospitalBasophils/100 WBC Auto (Bld)on 75-43-9729Beuvylzfq/100 WBC (Bld)Automated basophil %0.2-2.0[facility] Eosinophils/100 WBC Auto (Bld)on 38-87-3503Kaglvatohnx/100 WBC (Bld)Automated eosinophil %0.9-7.0[facility] CenterErythrocyte distribution width Auto (RBC) [Ratio]on 35-27-9251Iaajvvntmpr distribution width (RBC) [Ratio]Erythrocyte distribution width [Ratio] by Automated count11.0-15.0 [facility] CenterEstimated glomerular filtration rate (GFR) non- Americanon 13-87-4467UME/1.73 sq M.predicted among non-blacks MDRD (S/P/Bld) [Vol rate/Area]Estimated glomerular filtration rate (GFR) non- AmericanLow>=60 mL/min/1.73m 2FTriHealth McCullough-Hyde Memorial HospitalGlobulin Calc (S) [Mass/Vol]on 72-84-2043Ukktvtdp (S) [Mass/Vol]Serum globulin measurement by calculation (mass/volume)[facility] CenterHematocrit Auto (Bld) [Volume fraction]on 02-79-5115Xoorftavqy (Bld) [Volume fraction]Hematocrit [Volume Fraction] of Blood by Automated tspsmAgh28.0-48.0[facility] CenterHemoglobin [Mass/volume] in Bloodon 55-88-8463Lugdakpavb (Bld) [Mass/Vol]Hemoglobin [Mass/volume] in RcbbyQei39.0-16.0[facility] CenterIron binding capacity [Mass/volume] in Serum or Plasmaon 99-02-6341Duty binding capacity [Mass/Vol]Iron binding capacity [Mass/volume] in Serum or Vmgveu313.0-450.0[facility] CenterIron saturation [Mass Fraction] in Serum or Plasmaon 07-58-3873Dtjv saturation [Mass fraction] Iron saturation [Mass Fraction] in Serum or PlasmaMetrohealth Parma Medical CenterLaboratory - Chemistry and Chemistry - challengeon 05-98-0583Ushrlxz [Mass/Vol]3.4 g/dL3.4-5.0[facility] CenterALP [Catalytic activity/Vol]72 U/T75-327CaraxjhspMetrohealth [facility]ma Medical CenterALT [Catalytic activity/Vol]28 U/F71-20QedvzqrcsMetrohealth Parma Medical CenterAST [Catalytic activity/Vol]24 U/Y60-32QepxdvqgvMetrohealth Parma Medical CenterBilirubin [Mass/Vol]0.4 mg/dL0.2-1.0[facility] CenterCalcium [Mass/Vol]8.8 mg/dL 8.5-10.1FTriHealth McCullough-Hyde Memorial HospitalChloride [Moles/Vol]107 mmol/L98-107 [facility] CenterCO2 [Moles/Vol]30.8 mmol/L21.0-32.0[facility] CenterCobalamin (Vitamin B12) [Mass/Vol]1568 pg/mLAbnormal 232-1245[facility] CenterComment on above:Performed at: - [facility] [address] [id number] Director: Larry Nicolas PhD, Phone: [phone] [Mass/Vol]1.35 mg/dLHigh0.55-1.02 [facility] CenterFerritin [Mass/Vol]79.0 ng/mL8.0-252.0[facility] CenterGFR/1.73 sq M.predicted MDRD (S/P/Bld) [Vol rate/Area]46 mL/min/{1.73_m2}Low>=60 mL/min/1.73m 2FTriHealth McCullough-Hyde Memorial HospitalGlucose [Mass/Vol]109 mg/iUEylq82-199YcvjfvizyMetrohealth Parma Medical CenterIron [Mass/Vol] 86.0 ug/dL50.0-170.0[facility] CenterPotassium [Moles/Vol]4.6 mmol/L3.5-5.1FTriHealth McCullough-Hyde Memorial HospitalProtein [Mass/Vol]6.6 g/dL6.4-8.2 [facility] Hospitalodium [Moles/Vol]145 mmol/A706-825SuhhhdptzMetrohealth Parma Medical CenterTSH Qn1.743 m[IU]/L0.358-3.740[facility] CenterUrea nitrogen [Mass/Vol]21.0 mg/dLHigh7.0-18.0[facility] CenterUrea nitrogen/Creatinine [Mass ratio]15.6 mg/mgMetrohealth Parma Medical CenterLaboratory - Hematology and Cell countson 89-61-3102Fipllcdy granulocytes/100 WBC (Bld)0.3 %0.0-0.5FTriHealth McCull[facility] Leukocytes [#/volume] corrected for nucleated erythrocytes in Blood by Automated counon 91-44-1792PAF corrected for nucl RBC Auto (Bld) [#/Vol]Leukocytes [#/volume] corrected for nucleated erythrocytes in Blood by Automated coun 4.0-11.0[facility] CenterLymphocytes Auto (Bld) [#/Vol]on 78-67-2620Lsaacsiuuee (Bld) [#/Vol]Lymphocytes [#/volume] in Blood by Automated count1.2-3.8[facility] CenterLymphocytes/100 WBC Auto (Bld)on 65-24-0927Xcynvvdhehv/100 WBC (Bld)Lymphocytes/100 leukocytes in Blood by Automated count20.5-60.0[facility] CenterMCH Auto (RBC) [Entitic mass]on 65-67-6086TNN (RBC) [Entitic mass]MCH [Entitic mass] by Automated count 26.7-34.0[facility] CenterMCHC Auto (RBC) [Mass/Vol]on 55-16-9172EQKM (RBC) [Mass/Vol]MCHC [Mass/volume] by Automated count29.9-35.2 [facility] CenterMCV Auto (RBC) [Entitic vol]on 77-01-1011UYO (RBC) [Entitic vol]MCV [Entitic volume] by Automated count81.0-99.0[facility] CenterMonocytes Auto (Bld) [#/Vol]on 27-57-0214Gyflxjcsa (Bld) [#/Vol]Automated blood monocyte count0.3-0.8[facility] Monocytes/100 WBC Auto (Bld)on 29-03-9886Qrkwtswvu/100 WBC (Bld)Automated monocyte %1.7-12.0[facility] CenterNeutrophils Auto (Bld) [#/Vol]on 69-20-7972Zgnnzjqdmoy (Bld) [#/Vol]Neutrophils [#/volume] in Blood by Automated count1.4-6.5FTriHealth McCullough-Hyde Memorial HospitalNeutrophils/100 WBC Auto (Bld)on 83-42-0913Gqjcmwozakp/100 WBC (Bld)Automated neutrophil %43.0-75.0 [facility] CenterNo Panel Informationon 86-89-544063118475-Cbtkjhh Vitamin D Total57.6 ng/mLMetrohealth Parma Medical CenterComment on above:<20 ng/mL Vit D zfotansau16-<30 ng/mL Vit D gylwrjwanhvc63-112 ng/mL Vit D sufficient>100 ng/mL Potential ToxicityEosinophils # (Auto)0.3 10 3/uL0.0-0.7 [facility] CenterImmature Granulocyte # (Auto)0.02 10 3/uL 0.00-0.03[facility] CenterPlatelet mean volume Auto (Bld) [Entitic vol]on 66-59-0269Xhhhqipm mean volume (Bld) [Entitic vol]Platelet mean volume [Entitic volume] in Blood by Automated count9.5-13.5FTriHealth McCullough-Hyde Memorial HospitalPlatelets Auto (Bld) [#/Vol]on 46-69-0133Nruohejzg (Bld) [#/Vol] Platelets [#/volume] in Blood by Automated -474LaygikljhMetrohealth Parma Medical CenterRBC Auto (Bld) [#/Vol]on 15-26-1916AAF (Bld) [#/Vol]Erythrocytes [#/volume] in Blood by Automated countLow4.20-5.40[facility] Hospitalerum or plasma albumin/globulin mass ratioon 72-51-7769Qnghlte/Globulin [Mass ratio]Serum or plasma albumin/globulin mass ratioHocking Valley Community Hospitalerum or plasma anion gap determinationon 86-62-0852Ofsjr gap [Moles/Vol]Serum or plasma anion gap determinationMetrohealth Parma Medical CenterAlbumin [Mass/volume] in Serum or Plasmaon 12-45-6797Ezhvkzm [Mass/Vol]3.7 g/dL2.9-4.4FTriHealth McCullough-Hyde Memorial HospitalBasophils Auto (Bld) [#/Vol]on 51-28-6273Iftlobwmn (Bld) [#/Vol]0.1 10 3/uL0.0-0.1FTriHealth McCullough-Hyde Memorial HospitalBasophils/100 WBC Auto (Bld)on 56-09-7744Hjrllzkmp/100 WBC (Bld)0.7 % 0.2-2.0[facility] CenterEosinophils/100 WBC Auto (Bld)on 15-01-4143Bgdvsfjzbhj/100 WBC (Bld)2.3 %0.9-7.0[facility] Erythrocyte distribution width Auto (RBC) [Ratio]on 00-33-5883Zkvtlfosrjy distribution width (RBC) [Ratio]13.1 %11.0-15.0[facility] Estimated glomerular filtration rate (GFR) non- Americanon 06-15-2023 GFR/1.73 sq M.predicted among non-blacks MDRD (S/P/Bld) [Vol rate/Area]40 mL/min/{1.73_m2}>=60[facility] CenterGlobulin Calc (S) [Mass/Vol]on 73-22-6044Vgotwbkq (S) [Mass/Vol]3.7 g/dLMetrohealth Parma Medical CenterHematocrit Auto (Bld) [Volume fraction]on 95-43-3360Hitnpawurb (Bld) [Volume fraction]39.7 %36.0-48.0[facility] CenterHemoglobin [Mass/volume] in Bloodon 99-05-4478Crqiqsvlae (Bld) [Mass/Vol]12.1 g/dL12.0-16.0 [facility] CenterIgA [Mass/volume] in Serum or Plasmaon 95-35-9507KuA [Mass/Vol]195 mg/cU07-946WycggakdlMetrohealth Parma Medical CenterIgG [Mass/volume] in Serum or Plasmaon 51-42-1624NlV [Mass/Vol]865 mg/nI182-9538 [facility] CenterIgM [Mass/volume] in Serum or Plasmaon 71-77-1717JyF [Mass/Vol]54 mg/kX43-011AfjqecaymMetrohealth Parma Medical CenterIron binding capacity [Mass/volume] in Serum or Plasmaon 52-18-5080Idrs binding capacity [Mass/Vol]330.0 ug/dL250.0-450.0[facility] CenterIron saturation [Mass Fraction] in Serum or Plasmaon 05-51-8327Dkjl saturation [Mass fraction]29.7 %[facility] CenterLaboratory - Chemistry and Chemistry - challengeon 32-57-5798UWM [Catalytic activity/Vol]85 U/L46-116 [facility] CenterALT [Catalytic activity/Vol]17 U/L14-59 [facility] CenterAST [Catalytic activity/Vol]20 U/L15-37 [facility] CenterBilirubin [Mass/Vol]0.4 mg/dL0.2-1.0[facility] CenterCalcium [Mass/Vol]10.0 mg/dL8.5-10.1FTriHealth [facility]ull[facility] Memorial HospitalChloride [Moles/Vol]101 mmol/O02-135UgxrpapqhMetrohealth Parma Medical CenterCO2 [Moles/Vol]29.7 mmol/L21.0-32.0[facility] Creatinine [Mass/Vol]1.29 mg/dL0.55-1.02[facility] Ferritin [Mass/Vol]168.0 ng/mL8.0-252.0[facility] CenterGFR/1.73 sq M.predicted MDRD (S/P/Bld) [Vol rate/Area]48 mL/min/{1.73_m2}>=60[facility] CenterGlucose [Mass/Vol]174 mg/tW14-899RbtzpubtcMetrohealth Parma Medical CenterIron [Mass/Vol]98.0 ug/dL50.0-170.0[facility] CenterLDH [Catalytic activity/Vol]202 U/S66-535SlwudenhgMetrohealth [facility] Center Potassium [Moles/Vol]4.8 mmol/L3.5-5.1FTriHealth McCull[facility]-Hy[facility] Memorial HospitalProtein [Mass/Vol]7.4 g/dL6.4-8.2FPaulding County Hospitalodium [Moles/Vol]139 mmol/C690-954CgqbokxcfMetrohealth Parma Medical CenterUrea nitrogen [Mass/Vol]27.0 mg/dL 7.0-18.0[facility] CenterUrea nitrogen/Creatinine [Mass ratio] 20.9 mg/mgMetrohealth Parma Medical CenterLaboratory - Hematology and Cell countson 44-51-0062UIG (Bld) [Velocity]52 mm/h<=30[facility] CenterImmature granulocytes/100 WBC (Bld)0.4 %0.0-0.5FTriHealth McCullough-Hy[facility] Memorial HospitalLeukocytes [#/volume] corrected for nucleated erythrocytes in Blood by Automated counon 24-51-5104FDS corrected for nucl RBC Auto (Bld) [#/Vol]6.9 10 3/uL4.0-11.0[facility] CenterLymphocytes Auto (Bld) [#/Vol]on 86-63-0466Ucfqhfxoend (Bld) [#/Vol]1.7 10 3/uL1.2-3.8[facility] CenterLymphocytes/100 WBC Auto (Bld)on 57-04-2262Ksvgbagzwlj/100 WBC (Bld)24.7 % 20.5-60.0[facility] CenterMCH Auto (RBC) [Entitic mass]on 24-13-9160BAH (RBC) [Entitic mass]29.6 pg26.7-34.0[facility] CenterMCHC Auto (RBC) [Mass/Vol]on 19-09-6908XTXY (RBC) [Mass/Vol]30.5 g/dL 29.9-35.2FTriHealth McCullough-Hyde Memorial HospitalMCV Auto (RBC) [Entitic vol]on 06-83-9679XXD (RBC) [Entitic vol]97.1 fL81.0-99.0[facility] CenterMonocytes Auto (Bld) [#/Vol]on 55-84-2719Ppobvovfv (Bld) [#/Vol]0.4 10 3/uL0.3-0.8[facility] CenterMonocytes/100 WBC Auto (Bld)on 11-68-6712Epeqvxmiq/100 WBC (Bld)6.0 %1.7-12.0[facility] Neutrophils Auto (Bld) [#/Vol]on 62-67-4000Ujftlxyxsrt (Bld) [#/Vol]4.5 10 3/uL 1.4-6.5FTriHealth McCullough-Hy[facility] Memorial HospitalNeutrophils/100 WBC Auto (Bld)on 48-50-7323Nxaislnhknv/100 WBC (Bld)65.9 %43.0-75.0[facility] CenterNo Panel Informationon 21-54-3364R-Reactive Protein, Quantitative<0.50 mg/dL<=0.50[facility] CenterEosinophils # (Auto)0.2 10 3/uL 0.0-0.7FTriHealth McCullough-Hy[facility] Memorial HospitalImmature Granulocyte # (Auto)0.03 10 3/uL0.00-0.03[facility] CenterProtein Electrophoresis M-SpikeNot Observed g/dLNot ObservedMetrohealth Parma Medical CenterProtein Electrophoresis NoteComment.[facility] CenterComment on above: Protein electrophoresis scan will follow via computer,mail, or budget coordinator delivery.Performed at: [facility] Lab[address] [id number] Director: Larry Nicolas PhD, Phone: [phone] mean volume Auto (Bld) [Entitic vol]on 55-08-8359Udqpnsvs mean volume (Bld) [Entitic vol]10.8 fL9.5-13.5FTriHealth McCullough-Hyde Memorial HospitalPlatelets Auto (Bld) [#/Vol] on 51-87-9853Keunnzbli (Bld) [#/Vol]259 10 3/jS841-824NeybrybogMetrohealth Parma Medical CenterProtein [Mass/volume] in Serum or Plasmaon 47-68-7468Koxiblm [Mass/Vol] 6.9 g/dL6.0-8.5FTriHealth McCullough-Hy[facility] Memorial HospitalRBC Auto (Bld) [#/Vol]on 15-44-5597HMB (Bld) [#/Vol]4.09 10 6/uL4.20-5.40[facility] CenterReticulocytes/100 RBC Auto (Bld)on 24-87-4099Zneeksqjlmumi/100 RBC (Bld) 1.56 %0.60-3.10[facility] Hospitalerum globulin measurement (mass/volume)on 55-77-4031Sopqwycj (S) [Mass/Vol]3.2 g/dL2.2-3.9[facility] Hospitalerum or plasma albumin/globulin mass ratioon 06-15-2023 Albumin/Globulin [Mass ratio]1.0 {ratio}[facility] Albumin/Globulin [Mass ratio]1.2 {ratio}0.7-1.7FTri[facility] Serum or plasma alpha 1 globulin measurement by electrophoresis (mass/volume)on 15-84-7453Gdadh 1 globulin Elph [Mass/Vol]0.3 g/dL0.0-0.4FPaulding County Hospitalerum or plasma alpha 2 globulin measurement by electrophoresis (mass/volume)on 42-41-6417Hvycn 2 globulin Elph [Mass/Vol]1.0 g/dL0.4-1.0 [facility] Hospitalerum or plasma anion gap determinationon 82-29-5547Shcst gap [Moles/Vol]13.1 mmol/LFPaulding County Hospitalerum or plasma beta globulin measurement by electrophoresis (mass/volume)on 85-23-1247Oomu globulin Elph [Mass/Vol]1.2 g/dL0.7-1.3FPaulding County Hospitalerum or plasma gamma globulin measurement by electrophoresis (mass/volume)on 70-87-4120Pihvx globulin Elph [Mass/Vol]0.7 g/dL0.4-1.8[facility] Hospitalerum or plasma immunoelectrophoresis interpretationon 31-37-4803Mcajolojmaxmlk IEP [Interp]Comment.[facility] Comment on above:No monoclonality detected.Basophils Auto (Bld) [#/Vol]on 79-05-3822Ipjcvhios (Bld) [#/Vol]0.2 10 3/uL0.0-0.1FTriHealth McCullough-Hy[facility] Memorial HospitalBasophils/100 WBC Auto (Bld)on 55-31-8532Wohvovqcx/100 WBC (Bld)0.7 % 0.2-2.0[facility] CenterEosinophils/100 WBC Auto (Bld)on 45-55-3733Fcnbvhmgbhv/100 WBC (Bld)0.5 %0.9-7.0[facility] Erythrocyte distribution width Auto (RBC) [Ratio]on 77-56-6762Oynjaeffawo distribution width (RBC) [Ratio]12.7 %11.0-15.0[facility] Estimated glomerular filtration rate (GFR) non- Americanon 05-29-2023 GFR/1.73 sq M.predicted among non-blacks MDRD (S/P/Bld) [Vol rate/Area]58 mL/min/{1.73_m2}>=60[facility] CenterGlobulin Calc (S) [Mass/Vol]on 51-98-9415Fybwzoqc (S) [Mass/Vol]4.3 g/dLMetrohealth Parma Medical CenterHematocrit Auto (Bld) [Volume fraction]on 13-50-2669Shjxiqhajf (Bld) [Volume fraction]31.1 %36.0-48.0[facility] CenterHemoglobin [Mass/volume] in Bloodon 82-04-3154Afmewxogxa (Bld) [Mass/Vol]9.9 g/dL12.0-16.0 [facility] CenterLaboratory - Chemistry and Chemistry - challengeon 72-54-4335Vkjwodg [Mass/Vol]2.3 g/dL3.4-5.0[facility] CenterALP [Catalytic activity/Vol]94 U/S73-042ZogmwlwlsMetrohealth [facility]ma Medical CenterALT [Catalytic activity/Vol]46 U/D06-14WdfssjeslMetrohealth [facility] Medical Center AST [Catalytic activity/Vol]37 U/I66-44BhefmxsyjMetrohealth [facility] Medical Center Bilirubin [Mass/Vol]0.3 mg/dL0.2-1.0[facility] CenterCalcium [Mass/Vol]9.3 mg/dL8.5-10.1FTriHealth McCull[facility] Memorial HospitalChloride [Moles/Vol] 108 mmol/F25-669QemxbnintMetrohealth [facility] Medical CenterCO2 [Moles/Vol]26.5 mmol/L 21.0-32.0[facility] CenterCreatinine [Mass/Vol]0.93 mg/dL 0.55-1.02[facility] CenterGFR/1.73 sq M.predicted MDRD (S/P/Bld) [Vol rate/Area]mL/min/{1.73_m2}>=60[facility] CenterGlucose [Mass/Vol]109 mg/uZ24-252YjvtomblxMetrohealth Parma Medical CenterPotassium [Moles/Vol] 4.1 mmol/L3.5-5.1FTriHealth McCull[facility]-Hy[facility] Memorial HospitalProtein [Mass/Vol]6.6 g/dL 6.4-8.2FPaulding County Hospitalodium [Moles/Vol]144 mmol/M980-706 [facility] CenterUrea nitrogen [Mass/Vol]13.0 mg/dL7.0-18.0 [facility] CenterUrea nitrogen/Creatinine [Mass ratio]14.0 mg/mg [facility] CenterLaboratory - Hematology and Cell countson 19-90-0702Wcuckgif granulocytes/100 WBC (Bld)11.2 %0.0-0.5FTriHealth McCullough-Hyde Memorial HospitalLeukocytes [#/volume] corrected for nucleated erythrocytes in Blood by Automated counon 17-02-4537PRL corrected for nucl RBC Auto (Bld) [#/Vol]20.0 10 3/uL4.0-11.0[facility] CenterLymphocytes Auto (Bld) [#/Vol]on 14-10-2650Lgcmwjndcbl (Bld) [#/Vol]2.7 10 3/uL1.2-3.8[facility] CenterLymphocytes/100 WBC Auto (Bld)on 05-29-2023 Lymphocytes/100 WBC (Bld)13.2 %20.5-60.0[facility] HospitalH Auto (RBC) [Entitic mass]on 15-39-7069LQC (RBC) [Entitic mass]29.8 pg26.7-34.0 [facility] CenterMCHC Auto (RBC) [Mass/Vol]on 86-84-3534SHLN (RBC) [Mass/Vol]31.8 g/dL29.9-35.2FTriHealth McCullough-Hyde Memorial HospitalMCV Auto (RBC) [Entitic vol]on 97-07-1888UNK (RBC) [Entitic vol]93.7 fL81.0-99.0[facility] CenterMonocytes Auto (Bld) [#/Vol]on 96-34-9598Vulbamzrc (Bld) [#/Vol]1.1 10 3/uL0.3-0.8[facility] CenterMonocytes/100 WBC Auto (Bld)on 95-16-9156Mpxtzqzyg/100 WBC (Bld)5.3 %1.7-12.0[facility] CenterNeutrophils Auto (Bld) [#/Vol]on 87-08-8634Urkmyrfkhgi (Bld) [#/Vol]13.8 10 3/uL1.4-6.5FTriHealth McCullough-Hyde Memorial HospitalNeutrophils/100 WBC Auto (Bld)on 79-68-9393Twwvybcjinb/100 WBC (Bld)69.1 %43.0-75.0[facility] CenterNo Panel Informationon 66-64-9695Athklqjvite # (Auto)0.1 10 3/uL0.0-0.7FTriHealth McCullough-Hy[facility] Memorial HospitalImmature Granulocyte # (Auto)2.24 10 3/uL0.00-0.03[facility] CenterPlatelet mean volume Auto (Bld) [Entitic vol]on 91-42-3354Kgoanrnv mean volume (Bld) [Entitic vol]9.8 fL 9.5-13.5FTriHealth McCullough-Hyde Memorial HospitalPlatelets Auto (Bld) [#/Vol]on 48-36-7133Scukqrqpb (Bld) [#/Vol]281 10 3/xZ533-599IortqwbinMetrohealth Parma Medical CenterRBC Auto (Bld) [#/Vol]on 41-93-9462MAS (Bld) [#/Vol]3.32 10 6/uL4.20-5.40 [facility] Hospitalerum or plasma albumin/globulin mass ratioon 22-08-9952Qgpjdoi/Globulin [Mass ratio]0.5 {ratio}[facility] Hospitalerum or plasma anion gap determinationon 82-55-6700Osotn gap [Moles/Vol] 13.6 mmol/LFPaulding County Hospitalerum procalcitonin measurementon 38-09-4506Rzprogjmswzhu [Mass/Vol]ng/mL0.00-0.50[facility] CenterBasophils Auto (Bld) [#/Vol]on 89-34-6467Dzvqnvivy (Bld) [#/Vol]0.1 10 3/uL0.0-0.1FTriHealth McCull[facility]-Hy[facility] Memorial HospitalBasophils/100 WBC Auto (Bld)on 43-10-4287Itpjypqhb/100 WBC (Bld)0.6 %0.2-2.0[facility] Eosinophils/100 WBC Auto (Bld)on 83-09-9620Nnbctzwcdcl/100 WBC (Bld)0.4 %0.9-7.0 [facility] CenterErythrocyte distribution width Auto (RBC) [Ratio]on 20-55-6590Pejsaqkpthq distribution width (RBC) [Ratio]12.7 %11.0-15.0 [facility] CenterEstimated glomerular filtration rate (GFR) non- Americanon 56-26-2104PTK/1.73 sq M.predicted among non-blacks MDRD (S/P/Bld) [Vol rate/Area]47 mL/min/{1.73_m2}>=60[facility] CenterGlobulin Calc (S) [Mass/Vol]on 28-63-5068Ebevrwdc (S) [Mass/Vol]3.9 g/dL [facility] CenterHematocrit Auto (Bld) [Volume fraction]on 34-78-7933Hptyfbjqsi (Bld) [Volume fraction]29.0 %36.0-48.0[facility] CenterHemoglobin [Mass/volume] in Bloodon 50-24-9513Qmimjsnxqa (Bld) [Mass/Vol]9.1 g/dL12.0-16.0[facility] CenterLaboratory - Chemistry and Chemistry - challengeon 11-96-2876Qcspumj [Mass/Vol]2.0 g/dL 3.4-5.0[facility] CenterALP [Catalytic activity/Vol]93 U/L46-116 [facility] CenterALT [Catalytic activity/Vol]46 U/L14-59 [facility] CenterAST [Catalytic activity/Vol]49 U/L15-37 [facility] CenterBilirubin [Mass/Vol]0.3 mg/dL0.2-1.0[facility] CenterCalcium [Mass/Vol]8.7 mg/dL8.5-10.1FTriHealth [facility]ull[facility] Memorial HospitalChloride [Moles/Vol]111 mmol/C40-309EeqnwrtfwMetrohealth [facility] Medical CenterCO2 [Moles/Vol]25.0 mmol/L21.0-32.0[facility] Creatinine [Mass/Vol]1.12 mg/dL0.55-1.02[facility] GFR/1.73 sq M.predicted MDRD (S/P/Bld) [Vol rate/Area]57 mL/min/{1.73_m2}>=60 [facility] CenterGlucose [Mass/Vol]103 mg/wR81-964TiikwplkjMetrohealth [facility] Medical CenterPotassium [Moles/Vol]4.1 mmol/L3.5-5.1FTriHealth [facility]ull[facility] Memorial HospitalProtein [Mass/Vol]5.9 g/dL6.4-8.2FT[facility] Sodium [Moles/Vol]144 mmol/R704-883McobitwltMetrohealth Parma Medical CenterUrea nitrogen [Mass/Vol]22.0 mg/dL7.0-18.0[facility] CenterUrea nitrogen/Creatinine [Mass ratio]19.6 mg/mgMet[facility]health [facility] Center Laboratory - Hematology and Cell countson 26-11-1567Eqxozewc granulocytes/100 WBC (Bld)10.3 %0.0-0.5FTriHealth McCull[facility]-Hy[facility] Memorial HospitalLeukocytes [#/volume] corrected for nucleated erythrocytes in Blood by Automated counon 74-43-7751DII corrected for nucl RBC Auto (Bld) [#/Vol]17.1 10 3/uL4.0-11.0[facility] CenterLymphocytes Auto (Bld) [#/Vol]on 72-32-3715Gkmthcgzcsn (Bld) [#/Vol]2.3 10 3/uL1.2-3.8[facility] CenterLymphocytes/100 WBC Auto (Bld)on 23-19-6278Olupkcfeldk/100 WBC (Bld)13.5 %20.5-60.0[facility] HospitalH Auto (RBC) [Entitic mass]on 27-86-9414LDR (RBC) [Entitic mass]30.1 pg26.7-34.0[facility] CenterMCHC Auto (RBC) [Mass/Vol]on 93-03-4154VWIK (RBC) [Mass/Vol]31.4 g/dL29.9-35.2FTriHealth McCullough-Hy[facility] Memorial HospitalMCV Auto (RBC) [Entitic vol]on 42-05-5219PVD (RBC) [Entitic vol] 96.0 fL81.0-99.0[facility] CenterMonocytes Auto (Bld) [#/Vol]on 23-14-4921Jkewgbeml (Bld) [#/Vol]1.0 10 3/uL0.3-0.8[facility] CenterMonocytes/100 WBC Auto (Bld)on 84-51-2148Jyahiftea/100 WBC (Bld)6.0 % 1.7-12.0[facility] CenterNeutrophils Auto (Bld) [#/Vol]on 76-30-3681Trvricdecan (Bld) [#/Vol]11.9 10 3/uL1.4-6.5FTriHealth McCullough-Hy[facility] Memorial HospitalNeutrophils/100 WBC Auto (Bld)on 39-16-3969Ezazpanqauo/100 WBC (Bld)69.2 %43.0-75.0[facility] CenterNo Panel Informationon 05-28-2023 Eosinophils # (Auto)0.1 10 3/uL0.0-0.7FTriHealth McCull[facility] Memorial HospitalImmature Granulocyte # (Auto)1.76 10 3/uL0.00-0.03[facility] Platelet mean volume Auto (Bld) [Entitic vol]on 91-81-1613Gobgcbvc mean volume (Bld) [Entitic vol]9.6 fL9.5-13.5FTriHealth McCullough-Hy[facility] Memorial HospitalPlatelets Auto (Bld) [#/Vol]on 28-71-8778Rqnpzaprn (Bld) [#/Vol]242 10 3/aW216-755TztvjoktnMetrohealth Parma Medical CenterRBC Auto (Bld) [#/Vol]on 45-14-9888CVF (Bld) [#/Vol]3.02 10 6/uL4.20-5.40[facility] Hospitalerum or plasma albumin/globulin mass ratioon 41-50-1577Dxmsztg/Globulin [Mass ratio]0.5 {ratio} [facility] Hospitalerum or plasma anion gap determinationon 61-01-0451Wxjpa gap [Moles/Vol]12.1 mmol/LFPaulding County Hospitalerum procalcitonin measurementon 37-24-6842Talxgageythbl [Mass/Vol]0.06 ng/mL 0.00-0.50[facility] CenterBasophils/100 WBC Manual cnt (Bld)on 67-71-9307Murwquvrl/100 WBC (Bld)0.0 %0.2-2.0[facility] Eosinophils/100 WBC Manual cnt (Bld)on 58-28-3222Edjcaoumgen/100 WBC (Bld)0.0 % 0.9-7.0[facility] CenterErythrocyte distribution width Auto (RBC) [Ratio]on 98-19-2150Psauuebnrca distribution width (RBC) [Ratio]12.5 % 11.0-15.0[facility] CenterEstimated glomerular filtration rate (GFR) non- Americanon 95-86-7692PUF/1.73 sq M.predicted among non-blacks MDRD (S/P/Bld) [Vol rate/Area]29 mL/min/{1.73_m2}>=60[facility] CenterGlobulin Calc (S) [Mass/Vol]on 10-55-1520Jgfclshi (S) [Mass/Vol]4.6 g/dL [facility] CenterHematocrit Auto (Bld) [Volume fraction]on 65-43-0448Ovjgmvtjxu (Bld) [Volume fraction]29.7 %36.0-48.0[facility] CenterHemoglobin [Mass/volume] in Bloodon 11-77-3585Pbjuayshxs (Bld) [Mass/Vol]9.4 g/dL12.0-16.0[facility] CenterLaboratory - Chemistry and Chemistry - challengeon 76-55-6350Tfomimo [Moles/Vol]0.9 mmol/L 0.4-2.0[facility] CenterAlbumin [Mass/Vol]2.3 g/dL3.4-5.0 [facility] CenterALP [Catalytic activity/Vol]119 U/L46-116 [facility] CenterALT [Catalytic activity/Vol]43 U/L14-59 [facility] CenterAST [Catalytic activity/Vol]57 U/L15-37 [facility] CenterBilirubin [Mass/Vol]0.2 mg/dL0.2-1.0[facility] CenterCalcium [Mass/Vol]9.1 mg/dL8.5-10.1FTriHealth [facility]ull[facility] Memorial HospitalChloride [Moles/Vol]111 mmol/Z89-219TvwegizwaMetrohealth [facility] Medical CenterCO2 [Moles/Vol]18.8 mmol/L21.0-32.0[facility] Creatinine [Mass/Vol]1.70 mg/dL0.55-1.02[facility] GFR/1.73 sq M.predicted MDRD (S/P/Bld) [Vol rate/Area]35 mL/min/{1.73_m2}>=60 [facility] CenterGlucose [Mass/Vol]155 mg/mP95-352XbrxguibeMetrohealth [facility] Medical CenterPotassium [Moles/Vol]4.8 mmol/L3.5-5.1FTri[facility] HospitalProtein [Mass/Vol]6.9 g/dL6.4-8.2FT[facility] Sodium [Moles/Vol]143 mmol/I925-216GgkmfvxsuMetrohealth Parma Medical CenterUrea nitrogen [Mass/Vol]34.0 mg/dL7.0-18.0[facility] CenterUrea nitrogen/Creatinine [Mass ratio]20.0 mg/mgMetrohealth [facility] Center Laboratory - Hematology and Cell countson 59-44-5140Ioyp form neutrophils/100 WBC (Bld)6.0 %0-5FTriHealth McCullough-Hyde Memorial HospitalLymphocytes/100 WBC (Bld)12.0 %20.5-60.0[facility] CenterMonocytes/100 WBC (Bld)4.0 %1.7-12.0 [facility] CenterLaboratory - Microbiology and Antimicrobial susceptibilityOrdered By: Oumar Gunter on 75-30-5565Nhtybiai identified Respiratory culture Nom (Sput)[facility] CenterMicroscopic observation Gram stain Nom (Unsp spec)[facility] Leukocytes [#/volume] corrected for nucleated erythrocytes in Blood by Automated counon 38-55-5077HQV corrected for nucl RBC Auto (Bld) [#/Vol]26.6 10 3/uL 4.0-11.0[facility] HospitalH Auto (RBC) [Entitic mass]on 51-43-6209MOF (RBC) [Entitic mass]30.0 pg26.7-34.0[facility] HospitalHC Auto (RBC) [Mass/Vol]on 26-33-4399FHWK (RBC) [Mass/Vol]31.6 g/dL 29.9-35.2FTriHealth McCullough-Hy[facility] Memorial HospitalMCV Auto (RBC) [Entitic vol]on 07-03-6389LDZ (RBC) [Entitic vol]94.9 fL81.0-99.0[facility] CenterMetamyelocytes/100 WBC Manual cnt (Bld)on 23-98-8158Iqxaannmyquiqq/100 WBC (Bld)2.0 %[facility] CenterNo Panel Informationon 05-27-2023 Absolute Basophils (Manual)0.00 10 3/uL0.00-0.10[facility] CenterBand Neutrophils # (Manual)1.6 10 3/uL0.0-0.3FTriHealth McCullough-[facility] HospitalEosinophils # (Manual)0.00 10 3/uL0.00-0.70[facility] CenterLymphocytes # (Manual)3.19 10 3/uL1.20-3.80[facility] CenterMetamyelocytes # (Manual)0.53[facility] CenterMonocytes # (Manual)1.06 10 3/uL0.30-0.80[facility] Hospitalegmented Neutrophils # (Manual)20.21 10 3/uL1.4-6.5FTri[facility] Platelet mean volume Auto (Bld) [Entitic vol]on 73-95-5471Ebmcegub mean volume (Bld) [Entitic vol]9.8 fL9.5-13.5FTriHealth McCullough-Hyde Memorial HospitalPlatelets Auto (Bld) [#/Vol]on 91-33-7337Tzlptucva (Bld) [#/Vol]265 10 3/pQ250-649ZsiagpoqbMetrohealth Parma Medical CenterRBC Auto (Bld) [#/Vol]on 34-36-2209VQM (Bld) [#/Vol]3.13 10 6/uL4.20-5.40[facility] Hospitalegmented neutrophils/100 WBC Manual cnt (Bld)on 07-71-9604Ymsxuwpqc neutrophils/100 WBC (Bld)76.0 %[facility] Hospitalerum or plasma albumin/globulin mass ratioon 05-27-2023 Albumin/Globulin [Mass ratio]0.5 {ratio}[facility] Hospitalerum or plasma anion gap determinationon 07-84-4455Mypaf gap [Moles/Vol]18.0 mmol/L [facility] Hospitalerum procalcitonin measurementon 05-27-2023 Procalcitonin [Mass/Vol]0.13 ng/mL0.00-0.50[facility] Basophils Auto (Bld) [#/Vol]on 10-06-5707Jgwjbrqlc (Bld) [#/Vol]0.1 10 3/uL 0.0-0.1FTriHealth [facility]ullough-[facility] HospitalBasophils/100 WBC Auto (Bld)on 82-08-5820Lgywpsdle/100 WBC (Bld)0.3 %0.2-2.0[facility] Eosinophils/100 WBC Auto (Bld)on 28-02-4615Yyqeypltuxo/100 WBC (Bld)0.2 %0.9-7.0 [facility] CenterErythrocyte distribution width Auto (RBC) [Ratio]on 13-37-7384Brpfypcfotn distribution width (RBC) [Ratio]12.5 %11.0-15.0 [facility] CenterEstimated glomerular filtration rate (GFR) non- Americanon 85-69-1859IXU/1.73 sq M.predicted among non-blacks MDRD (S/P/Bld) [Vol rate/Area]14 mL/min/{1.73_m2}>=60[facility] CenterGlobulin Calc (S) [Mass/Vol]on 55-40-8178Zwuvtzkx (S) [Mass/Vol]4.4 g/dL [facility] CenterHematocrit Auto (Bld) [Volume fraction]on 73-97-1006Sgvofmfnkb (Bld) [Volume fraction]31.7 %36.0-48.0[facility] CenterHemoglobin [Mass/volume] in Bloodon 48-74-6703Ctwnzxpvvr (Bld) [Mass/Vol]9.7 g/dL12.0-16.0[facility] CenterLaboratory - Chemistry and Chemistry - challengeon 62-32-9505Loevkpq [Mass/Vol]2.3 g/dL 3.4-5.0[facility] CenterALP [Catalytic activity/Vol]128 U/L 46-116[facility] CenterALT [Catalytic activity/Vol]19 U/L14-59 [facility] CenterAST [Catalytic activity/Vol]18 U/L15-37 [facility] CenterBilirubin [Mass/Vol]0.4 mg/dL0.2-1.0[facility] CenterCalcium [Mass/Vol]8.2 mg/dL8.5-10.1FTri[facility]ull[facility] HospitalChloride [Moles/Vol]102 mmol/X87-680XsltrxloaMetrohealth Parma Medical CenterCO2 [Moles/Vol]23.6 mmol/L21.0-32.0[facility] Creatinine [Mass/Vol]3.17 mg/dL0.55-1.02[facility] GFR/1.73 sq M.predicted MDRD (S/P/Bld) [Vol rate/Area]17 mL/min/{1.73_m2}>=60 [facility] CenterGlucose [Mass/Vol]279 mg/iE14-191QymtjtzanMetrohealth Parma Medical CenterPotassium [Moles/Vol]4.2 mmol/L3.5-5.1FTri[facility] Memorial HospitalProtein [Mass/Vol]6.7 g/dL6.4-8.2FT[facility] Sodium [Moles/Vol]136 mmol/G174-646AlaioxpwqMetrohealth Parma Medical CenterUrea nitrogen [Mass/Vol]40.0 mg/dL7.0-18.0[facility] CenterUrea nitrogen/Creatinine [Mass ratio]12.6 mg/mgMet[facility]health [facility] Laboratory - Hematology and Cell countson 53-03-4469Czylqmfh granulocytes/100 WBC (Bld)4.9 %0.0-0.5FTriHealth [facility]ull[facility] Memorial HospitalLeukocytes [#/volume] corrected for nucleated erythrocytes in Blood by Automated counon 56-13-8957DOJ corrected for nucl RBC Auto (Bld) [#/Vol]20.7 10 3/uL4.0-11.0[facility] CenterLymphocytes Auto (Bld) [#/Vol]on 02-09-0204Vnnhmkrquiu (Bld) [#/Vol]1.5 10 3/uL1.2-3.8[facility] CenterLymphocytes/100 WBC Auto (Bld)on 46-25-6982Biqjmnojzna/100 WBC (Bld)7.2 %20.5-60.0[facility] CenterMCH Auto (RBC) [Entitic mass]on 32-65-4974VYN (RBC) [Entitic mass]29.8 pg26.7-34.0[facility] CenterMCHC Auto (RBC) [Mass/Vol] on 25-53-9330UBIZ (RBC) [Mass/Vol]30.6 g/dL29.9-35.2FTriHealth McCull[facility] Memorial HospitalMCV Auto (RBC) [Entitic vol]on 33-20-2032QSE (RBC) [Entitic vol]97.5 fL 81.0-99.0[facility] CenterMonocytes Auto (Bld) [#/Vol]on 92-53-2622Eeybxwblk (Bld) [#/Vol]0.5 10 3/uL0.3-0.8[facility] CenterMonocytes/100 WBC Auto (Bld)on 30-52-9336Droaljyek/100 WBC (Bld)2.2 % 1.7-12.0[facility] CenterNeutrophils Auto (Bld) [#/Vol]on 95-94-9532Ftzcicwgzfx (Bld) [#/Vol]17.6 10 3/uL1.4-6.5FTriHealth McCull[facility] Memorial HospitalNeutrophils/100 WBC Auto (Bld)on 35-97-2497Pijjqtknspt/100 WBC (Bld)85.2 %43.0-75.0[facility] CenterNo Panel Informationon 05-26-2023 Eosinophils # (Auto)0.0 10 3/uL0.0-0.7FTriHealth McCull[facility] Memorial HospitalImmature Granulocyte # (Auto)1.01 10 3/uL0.00-0.03[facility] Platelet mean volume Auto (Bld) [Entitic vol]on 80-90-4151Ebuppumm mean volume (Bld) [Entitic vol]10.6 fL9.5-13.5FTriHealth McCull[facility] Memorial HospitalPlatelets Auto (Bld) [#/Vol]on 24-15-4016Suwyawljg (Bld) [#/Vol]227 10 3/qZ683-289 [facility] CenterRBC Auto (Bld) [#/Vol]on 60-81-2043PXT (Bld) [#/Vol]3.25 10 6/uL4.20-5.40[facility] Hospitalerum or plasma albumin/globulin mass ratioon 20-32-8292Hkcjjpx/Globulin [Mass ratio]0.5 {ratio} [facility] Hospitalerum or plasma anion gap determinationon 80-32-3946Hycad gap [Moles/Vol]14.6 mmol/LFPaulding County Hospitalerum procalcitonin measurementon 03-67-2049Tivrsppuugnov [Mass/Vol]0.61 ng/mL 0.00-0.50[facility] CenterAutomated urine specific gravity by refractometryon 00-30-0399Vdyookiq gravity Refractometry automated (U) [Rel density]>=1.0301.005-1.025[facility] CenterBasophils/100 WBC Manual cnt (Bld)on 15-61-2668Vhdixlwxx/100 WBC (Bld)0.0 %0.2-2.0[facility] CenterBilirubin Auto test strip (U) [Mass/Vol]on 05-25-2023 Bilirubin (U) [Mass/Vol]SMALLNEGATIVEMetrohealth Parma Medical CenterBlood toxic granulation detection by light microscopyon 37-10-9509Vdvda granules LM Ql (Bld)4+[facility] CenterColor Auto (U)on 61-47-9516Lpxnj (U)DK. YELLOWYELLOWMetrohealth Parma Medical CenterEosinophils/100 WBC Manual cnt (Bld)on 39-88-1636Jycdhkjqrom/100 WBC (Bld)0.0 %0.9-7.0[facility] CenterErythrocyte distribution width Auto (RBC) [Ratio]on 05-25-2023 Erythrocyte distribution width (RBC) [Ratio]12.3 %11.0-15.0[facility] CenterEstimated glomerular filtration rate (GFR) non- Americanon 74-03-2122MJU/1.73 sq M.predicted among non-blacks MDRD (S/P/Bld) [Vol rate/Area]12 mL/min/{1.73_m2}>=60[facility] CenterGlobulin Calc (S) [Mass/Vol]on 44-22-0606Thbedrpi (S) [Mass/Vol]4.9 g/dLMetrohealth Parma Medical CenterHematocrit Auto (Bld) [Volume fraction]on 56-82-0008Ekethwpsgt (Bld) [Volume fraction]35.0 %36.0-48.0[facility] Hemoglobin [Mass/volume] in Bloodon 76-61-1558Cmydjjjwxr (Bld) [Mass/Vol]11.1 g/dL12.0-16.0[facility] CenterKetones Auto test strip (U) [Mass/Vol]on 75-24-9219Oamipuf (U) [Mass/Vol]TRACE mg/dLNEGATIVEMetrohealth Parma Medical CenterLaboratory - Chemistry and Chemistry - challengeon 51-56-7870Ulgnius [Mass/Vol]2.8 g/dL3.4-5.0[facility] CenterALP [Catalytic activity/Vol]131 U/M41-579VuxblgknrMetrohealth Parma Medical CenterALT [Catalytic activity/Vol]21 U/A30-64JluijwrtlMetrohealth Parma Medical CenterAST [Catalytic activity/Vol]21 U/U37-75WmdqznmpkMetrohealth Parma Medical CenterBilirubin [Mass/Vol]0.6 mg/dL0.2-1.0[facility] CenterCalcium [Mass/Vol]9.2 mg/dL8.5-10.1FTriHealth McCullough-Hyde Memorial HospitalChloride [Moles/Vol]100 mmol/L 98-107[facility] CenterCO2 [Moles/Vol]27.4 mmol/L21.0-32.0 [facility] CenterCreatinine [Mass/Vol]3.70 mg/dL0.55-1.02 [facility] CenterGFR/1.73 sq M.predicted MDRD (S/P/Bld) [Vol rate/Area]14 mL/min/{1.73_m2}>=60[facility] CenterGlucose [Mass/Vol]142 mg/qO52-318LzmfnasaxMetrohealth Parma Medical CenterLactate [Moles/Vol]1.2 mmol/L0.4-2.0[facility] CenterPotassium [Moles/Vol]4.1 mmol/L 3.5-5.1FTriHealth McCullough-Hyde Memorial HospitalProtein [Mass/Vol]7.7 g/dL6.4-8.2 [facility] Hospitalodium [Moles/Vol]139 mmol/K280-422RmxcajiphMetrohealth Parma Medical CenterUrea nitrogen [Mass/Vol]38.0 mg/dL7.0-18.0[facility] CenterUrea nitrogen/Creatinine [Mass ratio]10.3 mg/mgMetrohealth Parma Medical CenterLaboratory - Hematology and Cell countson 93-99-4554Tohq form neutrophils/100 WBC (Bld)15.0 %0-5FTriHealth McCullough-Hyde Memorial Hospital Lymphocytes/100 WBC (Bld)4.0 %20.5-60.0[facility] Monocytes/100 WBC (Bld)5.0 %1.7-12.0[facility] CenterLaboratory - Microbiology and Antimicrobial susceptibilityon 83-00-9064ELNF-CoV-2 (COVID- 19) RNA ITZEL+probe Ql (Unsp spec)Not detectedNOT [facility] HospitalLeukocytes [#/volume] corrected for nucleated erythrocytes in Blood by Automated counon 81-46-8846SUK corrected for nucl RBC Auto (Bld) [#/Vol]24.6 10 3/uL4.0-11.0[facility] HospitalH Auto (RBC) [Entitic mass]on 97-43-6768NRI (RBC) [Entitic mass]30.3 pg26.7-34.0[facility] HospitalHC Auto (RBC) [Mass/Vol]on 11-69-8202NPSI (RBC) [Mass/Vol]31.7 g/dL29.9-35.2FCleveland Clinic Mercy HospitalV Auto (RBC) [Entitic vol]on 50-76-7977VZL (RBC) [Entitic vol]95.6 fL81.0-99.0[facility] CenterNo Panel Informationon 67-94-9164Xrwsrlejfk (PCR)Not detectedNOT [facility] HospitalBordetella parapertussis DNA (PCR)Not detectedNOT [facility] HospitalBordetella pertussis (PCR)(Misc)Not detectedNOT [facility] Chlamydia pneumoniae DNA (PCR)Not detectedNOT [facility] HospitalCoronavirus Type 229E (PCR)Not detectedNOT [facility] HospitalCoronavirus Type HKU1 (PCR)Not detectedNOT [facility] HospitalCoronavirus Type NL63 (PCR)Not detectedNOT DETECTE [facility] CenterCoronavirus Type OC43 (PCR)Not detectedNOT [facility] HospitalEnterovirus/Rhinovirus (PCR)Not detected NOT DETECTUniversity Hospitals Samaritan Medical CenterHuman Metapneumovirus (PCR)Not detectedNOT [facility] HospitalInfluenza A (PCR)Not detectedNOT DETECTUniversity Hospitals Samaritan Medical CenterInfluenza Type B (RT-PCR)Not detectedNOT [facility] HospitalMycoplasma pneumoniae (PCR) Not detectedNOT DETECTUniversity Hospitals Samaritan Medical CenterParainfluenza Type 1 (PCR)Not detectedNOT [facility] HospitalParainfluenza Type 2 (PCR)Not detectedNOT DETECTUniversity Hospitals Samaritan Medical CenterParainfluenza Type 3 (PCR)Not detectedNOT [facility] Parainfluenza Type 4 (PCR)Not detectedNOT [facility] HospitalRespiratory Syncytial Virus (PCR)Not detectedNOT [facility] HospitalUrine Microscopic ReviewNOMetrohealth Parma Medical Center Absolute Basophils (Manual)0.00 10 3/uL0.00-0.10[facility] CenterBand Neutrophils # (Manual)3.7 10 3/uL0.0-0.3FTriHealth McCullough-Hyde Memorial HospitalEosinophils # (Manual)0.00 10 3/uL0.00-0.70[facility] CenterLymphocytes # (Manual)0.98 10 3/uL1.20-3.80[facility] CenterMonocytes # (Manual)1.23 10 3/uL0.30-0.80[facility] Reactive Lymphocytes3.19[facility] CenterReactive Lymphocytes 13.0 %[facility] Hospitalegmented Neutrophils # (Manual)15.49 10 3/uL1.4-6.5FTriHealth McCullough-Hyde Memorial HospitalTroponin I High Qhqrrekwuum40.0 pg/mL4.0-51.3FTriHealth McCullough-Hyde Memorial HospitalComment on above:CUT-OFF POINTS HAVE BEEN ESTABLISHED [...] INFORMATION.No Panel InformationOrdered By: Oumar Gunter on 86-36-7841Htenl Culture 2FTriHealth McCullough-Hyde Memorial HospitalBlood Culture 1FTriHealth McCullough-Hyde Memorial HospitalPlatelet mean volume Auto (Bld) [Entitic vol]on 84-83-7166Pzrhorty mean volume (Bld) [Entitic vol]10.5 fL9.5-13.5FTriHealth McCullough-[facility] Hospital Platelets Auto (Bld) [#/Vol]on 32-44-6526Vcweufmxf (Bld) [#/Vol]272 10 3/uL 150-450[facility] CenterProtein Auto test strip (U) [Mass/Vol]on 39-62-7545Vlditbv (U) [Mass/Vol]TRACE mg/dLNEG/TRACEMetrohealth Parma Medical CenterRBC Auto (Bld) [#/Vol]on 88-09-3324ETN (Bld) [#/Vol]3.66 10 6/uL4.20-5.40 [facility] Hospitalegmented neutrophils/100 WBC Manual cnt (Bld) on 56-72-2798Rspzfqpfk neutrophils/100 WBC (Bld)63.0 %[facility] Hospitalerum or plasma albumin/globulin mass ratioon 50-95-9335Euqhnuj/Globulin [Mass ratio]0.6 {ratio}[facility] Hospitalerum or plasma anion gap determinationon 44-09-2930Gohqg gap [Moles/Vol]15.7 mmol/LFPaulding County Hospitalerum procalcitonin measurementon 09-61-3496Efifnwgiqvyuw [Mass/Vol]0.52 ng/mL0.00-0.50[facility] Hospitalpecific gravity Auto test strip (U) [Rel density]on 31-58-5615Wqtridwj gravity (U) [Rel density] CLEARCLEARFTriHealth McCullough-Hyde Memorial HospitalUrine glucose measurement by test strip (mass/volume)on 20-26-7830Itdahcn Test strip (U) [Mass/Vol]Negative NEGATIVEMetrohealth Parma Medical CenterUrine hemoglobin detection by automated test stripon 83-66-8708Ojlcxppqmf Auto test strip Ql (U)NegativeNEGATIVE [facility] CenterUrine nitrite detection by automated test strip on 27-35-9674Odsosfm Auto test strip Ql (U)NegativeNEGATIVEMetrohealth Parma Medical CenterUrobilinogen Auto test strip (U) [Mass/Vol]on 05-25-2023 Urobilinogen Qn (U)0.2 {Valentino'U}/dL0.2-1.0[facility] CenterpH Auto test strip (U)on 12-63-5368wZ (U)5.0 [pH]5.0-9.0[facility] CenterXR knee LT 2Von 09-27-4832FR knee LT 2VCorey Hospital [employer] Other XR knee LT 2VFRSelect [facility] Specialty [facility] [employer] Other XR knee LT [id number] [place] [address] [employer] Other XR knee LT [place], [place] [address]Wuvpm [employer] Other XR knee LT 2VXRSycamore Shoals [facility], [place] [employer] Other XR knee LT 2VSLakeland Regional Hospital [employer] Other XR knee LT 2VPatient: Catherine Tang MR#: [id number] [facility] [employer] Other XR knee LT [id number] [employer] Other XR knee LT 2VDOB: 1945 Acct:[id number] [employer] Other XR knee LT 2VAge/Sex: 77 / F ADM Date: 07/02/22Glen Jean [employer] Other XR knee LT 2VLoc: SOXD Room: Type: [facility] [employer] Other XR knee LT 2VAttending Dr: Miguel Spring II, MD [place] [employer] Other XR knee LT 2VCopies to: Miguel Spring MDGlen Jean [employer] Other XR knee LT 2VOrdering Provider: Miguel Spring MD [employer] Other xr knee LT 2VDate of Service: 07/02/22[place] [employer] Other xr knee LT 2VAccession #: ([id number]) XR/XR knee LT 2V: Primary osteoarthritis of left kneeGlen Jean [employer] Other xr knee LT 2VLEFT KNEE - 2 viewsGlen Jean [employer] Other xr knee LT 2VCOMPARISON: 10/16/2021G[place] Jean [employer] Other xr knee LT 2VCLINICAL DATA: Follow-up knee replacement.[employer] Other xr knee LT 2VAP and lateral standing views were obtained. A knee prosthesis is again visualized. The hardwareNoalvin j. siteman cancer center [employer] Other xr knee LT 2Vappears intact and unchanged from the prior. There are no developing fractures or dislocation.[employer] Other xr knee LT 2VThere is no sizable knee effusion.[employer] Other xr knee LT 2VORDER #: [id number] XR/XR knee LT 2VGlen Jean [employer] Other xr knee LT 2VIMPRESSION:[employer] Other xr knee LT 2VSTABLE KNEE REPLACEMENT.[employer] Other xr knee LT 2VImpression dictated by: Qi Espinoza M.D.07/02/2022 1:42 PMNreynolds county general memorial hospital [employer] Other xr knee LT 2VDictation Location: [id number] [employer] Other xr knee LT 2VTranscribed By: PWS 07/02/22 1342Glen Jean [employer] Other xr knee LT 2VDictated By: Qi Espinoza MD 07/02/22 1341G[place] Jean [employer] Other xr knee LT 2VSigned By:[facility] [employer] Other xr knee LT 2V07/02/[address] [place] [address] [employer] Other ECHOCARDIO M/2D COMPLETEon 36-09-0445ZMCPRDULRK M/2D COMPLETEPatient: CATHERINE TANG Exam Date: 10/17/2021 : 1945 Gender:F Ordering : DR OUMAR GUNTER M.D. Admission #: [id number] Family : Order #: [id number] CLICK HERE TO VIEW EXAM ECHOCARDIOGRAM REPORT [...] by: Ibrahima Arguelles M.D. on 10/17/2021 at 17:41[facility] HospitalANES POSTPROC EVALon 33-77-5612OPXU POSTPROC EVALHNO ID: [id number] Author: Maria Guadalupe Lagos MD Service: Anesthesiology Author Type: Anesthesiologist Type: Anesthesia Postprocedure Evaluation Filed: 08/20/2021 12:24 PM Note Text: POST ANESTHESIA EVALUATION NOTE : 1945 Procedure Summary Date: 08/20/21 Room / Location: [address] Anesthesia Start: 1121 Anesthesia Stop: 1138 [...] August 20, 2021 TIME: 12:23 PM CSN: [id number] Health St. [facility]'s [facility] PRE-OPon 39-18-6359BTGN PRE-OPHNO ID: [id number] Author: Maria Guadalupe Lagos MD Service: Anesthesiology Author Type: Anesthesiologist Type: Anesthesia Preprocedure Evaluation Filed: 08/20/2021 9:00 AM Note Text: ANESTHESIOLOGY DAY OF SURGERY NOTE : 1945 Procedure Information Date/Time: 08/20/21 1055 Procedures: PHACOEMULSIFICATION CATARACT IMPLANT INTRAOCULAR LENS W/O ENDOSCOPIC CYCLOPHOTOCOAGULATION (Right Eye) OPHTHALMIC BIOMETRY BY PARTIAL COHERENCE INTERFEROMETRY W/INTRAOCULAR LENS POWER CALCULATION (Right Eye) Location: [address] Surgeons: Jennifer Infante V, MD Estimated [...] August 20, 2021 TIME: 8:59 AM CSN: [id number] Medical Specialty Hospital [facility]on NOon [id number] NOHNO ID: [id number] Author: Jennifer Infante V, MD Service: Ophthalmology Author Type: Physician Type: Operative Report Filed: 08/20/2021 11:39 AM Note Text: OPERATIVE REPORT DATE OF SERVICE: August 20, 2021 PRIMARY SURGEON: Jennifer Infante M.D. GRANITE POLISHER APPRENTICE: None Procedure(s) (LRB): PHACOEMULSIFICATION CATARACT IMPLANT INTRAOCULAR [...] corneal incision was created temporally with a Southwick blade then a 2.4 mm keratome. The [...] Implant Name Type Inv. Item Serial No. Fleet Dispatch Manager Lot No. LRB Model Num No. Used LENS IOL 0D +13 TONY UV ABS - [id number] Intraocular Lens LENS IOL 0D +13 TONY UV ABS [id number] [employer]IAN [employer] Right [id number] 1 was inserted through [...] Dang; relinquish care POD #[address] [facility] POSTPROC EVALon 08-06-2021 ANES POSTPROC EVALHNO ID: [id number] Author: Chencho Leon MD Service: Anesthesiology Author Type: Anesthesiologist Type: Anesthesia Postprocedure Evaluation Filed: 08/06/2021 1:06 PM Note Text: POST ANESTHESIA EVALUATION NOTE : 1945 Procedure Summary Date: 08/06/21 Room / Location: [place] [address] / [facility] Anesthesia Start: 1030 Anesthesia Stop: 105 [...] August 06, 2021 TIME: 1:06 PM CSN: [id number] Health St. Rita's [facility] Center PRE-OPon [id number] PRE-OPHNO ID: [id number] Author: Chencho Leon MD Service: Anesthesiology Author Type: Anesthesiologist Type: Anesthesia Preprocedure Evaluation Filed: 08/06/2021 10:28 AM Note Text: ANESTHESIOLOGY DAY OF SURGERY NOTE : 1945 Procedure Information Date/Time: 08/06/21 1025 Procedures: PHACOEMULSIFICATION CATARACT IMPLANT INTRAOCULAR LENS W/O ENDOSCOPIC CYCLOPHOTOCOAGULATION (Left Eye) OPHTHALMIC BIOMETRY BY PARTIAL COHERENCE INTERFEROMETRY W/INTRAOCULAR LENS POWER CALCULATION (Left Eye) Location: [address] Surgeons: Jennifer Infante V, MD Estimated [...] ON 08/07/2021] lidocaine 2 % (XYLOCAINE) OTHER Validation Analyst to OR - tetracaine (PF) 0.5 [...] August 06, 2021 TIME: 10:10 AM CSN: [id number] Medical Specialty Hospital [facility] NOon [id number] NOHNO ID: [id number] Author: Jennifer Infante V, MD Service: Ophthalmology Author Type: Physician Type: Operative Report Filed: 08/06/2021 10:49 AM Note Text: OPERATIVE REPORT DATE OF SERVICE: August 06, 2021 PRIMARY SURGEON: Jennifer Infante M.D. [employer] APPRENTICE: None Procedure(s) (LRB): PHACOEMULSIFICATION CATARACT IMPLANT INTRAOCULAR [...] corneal incision was created temporally with a Southwick blade then a 2.4 mm keratome. The anterior chamber was reformed with Viscoat, after which the anterior capsule was opened centrally. Using the Utrata forceps a continuous curvilinear capsulorrhexis of approximately 5.5 mm round was created. Gentle hydrodissection was accomplished using preservative-free lidocaine on a 27-gauge cannula. Using the Tian phacoemulsification unit with the Powerspan curved tip, the anterior chamber was entered [...] Implant Name Type Inv. Item Serial No. Fleet Dispatch Manager Lot No. LRB Model Num No. Used LENS IOL 0D +13 TONY UV ABS - [id number] Intraocular Lens LENS IOL 0D +13 TONY UV ABS [id number] [employer] Left [id number] 1 was [...] 10:48 AM - Comanage with Dr Dang; [facility] P[facility] #1 Jennifer INFANTE MDSelect Medical [facility] PHYSICALon 07-30-2021 HISTORY PHYSICALHNO ID: [id number] Author: Shikha Kate APRN.ART DEPARTMENT HEAD Service: ? Author Type: Nurse Practitioner Type: [...] implants - PAST SURGICAL HISTORY OF SCS ([employer]) - TOTAL KNEE REPLACEMENT Left FAMILY [...] fevers. Neuro: No history of TIA's, stroke, COMPLAINT ADJUSTER tumor, impaired sensorium, hemiplegia, paraplegia or quadraplegia. No neurological symptoms or problems. Respiratory: No history of current cough or dyspnea, or pneumonia in the past 6 weeks. No history of respiratory/pulmonary symptoms or problems. Cardiovascular: No history of HTN requiring medication, no history of angina, CHF, MO, cardiac surgery or stents. Denies rest pain, gangrene or revascularization/amputation for PVD. No history of cardiovascular symptoms or problems. +HLD GI: No history of GI symptoms or problems. No history of esophageal varices, recent ascites, or ETOH greater than 2 drinks per day. 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 HospitalCovid-19 PCR (CVDTBH)on 75-00-6284QWMB-CoV-2 (COVID-19) RNA ITZEL+probe Ql (Unsp spec)DetectedCritically abnormalNOT DETECTEDThe Avita Health SystemComment on above:Result Comment: This test is not yet approved or cleared by the [place] FDA. When there are no FDA-approved or cleared tests available, and other criteria are met, FDA can make tests available under an emergency access mechanism called an Emergency Use Authorization (EUA). The EUA for this test is supported by the Pivot End Polisher of Health and Human Service's (HHS's) declaration [...] be used). Performed By: #### CVDTBH #### [facility] [address] [place] [address] Dr. Марина LangTHYROID ANTIBODIESon 70-41-9744Yvzxofqfiytsw Antibody<1.0Normal 0.0-0.9Ohio[facility] Health CenterComment on above:Result Comment: Thyroglobulin Antibody measured by CardioDx MethodologyPerformed By: #### THYRABS #### [facility] [address] [place] [address] Dr. Марина LangThyroid Peroxidase (TPO) Ab<1Npbnlm2-28ChrOhiohealth Nelsonville Health Center Comment on above:Performed By: #### THYRABS #### [facility] [address] [place] [address] Dr. Марина Moreno AUTO DIFFon 47-23-8522VIRR #0.1 103/ulNormal0.0-0.1[facility] Health CenterComment on above:Performed By: #### CBC #### [facility] [address] [place] [address] Dr. Марина LangBasophils/100 WBC (Bld)0.9 %Normal0.2-2.0[facility] Comment on above:Performed By: #### CBC #### [facility] [address] [place] [address] Dr. Parish ChangEBrittni #0.3 103/ulNormal0.0-0.7The [facility] Health SystemComment on above: Performed By: #### CBC #### [facility] [address] [place] [address] Dr. Марина Toosinophils/100 WBC (Bld)5.7 %Normal0.9-7.0The [facility] Comment on above:Performed By: #### CBC #### [facility] [address] [place] [address] Dr. Марина Torythrocyte distribution width (RBC) [Ratio]14.0 %Ljjvxg19.0-15.0 The [facility] SystemComment on above:Performed By: #### CBC #### [facility] [address] [place] [address] Dr. Марина LangHematocrit (Bld) [Volume fraction]40.5 %Mfoycw13.0-48.0The [facility] Health SystemComment on above:Performed By: #### CBC #### [facility] [address] [place] [address] Dr. Марина LangHemoglobin (Bld) [Mass/Vol]12.3 g/nFThelzu42.0-16.0The [facility] SystemComment on above:Performed By: #### CBC #### [facility] [address] [place] [address] Dr. Марина Phan #0.01 10e3/ulNormal0.00-0.03The [facility] Health SystemComment on above:Performed By: #### CBC #### [facility] [address] [place] [address] Dr. Марина LangIG %0.2 %Normal0.0-0.5The St. Anthony's Hospitalment on above: Performed By: #### CBC #### [facility] [address] [place] [address] Dr. Марина OrrMPH #1.5 103/ulNormal1.2-3.8The [facility] SystemComment on above:Performed By: #### CBC #### [facility] [address] [place] [address] Dr. Марина Orrmphocytes/100 WBC (Bld)27.9 %Lblwly32.5-60.0The [facility] SystemComment on above:Performed By: #### CBC #### [facility] [address] [place] [address] Dr. Марина Dunn DIFF REQNONormalThe [facility] Health SystemComment on above: Performed By: #### CBC #### [facility] [address] [place] [address] Dr. Марина Hansen (RBC) [Entitic mass]28.6 ihCwdnaz27.7-34.0The [facility] SystemComment on above:Performed By: #### CBC #### [facility] [address] [place] [address] Dr. Марина Hansen (RBC) [Mass/Vol]30.4 g/hEDvduwh40.9-35.2The [facility] SystemComment on above:Performed By: #### CBC #### [facility] [address] [place] [address] Dr. Марина Hansen (RBC) [Entitic vol]94.2 yTZlppop89.0-99.0The [facility] Health SystemComment on above:Performed By: #### CBC #### [facility] [address] [place] [address] Dr. Марина Rubio #0.5 103/ulNormal0.3-0.8The [facility] Health SystemComment on above:Performed By: #### CBC #### [facility] [address] [place] [address] Dr. Марина Burgosocytes/100 WBC (Bld)9.0 %Normal1.7-12.0The [facility] Comment on above:Performed By: #### CBC #### [facility] [address] [place] [address] Dr. Марина Alejandro #3.1 103/ulNormal1.4-6.5The St. Anthony's Hospitalment on above:Performed By: #### CBC #### [facility] [address] [place] [address] Dr. Марина Sinhautrophils/100 WBC (Bld)56.3 %Iymccb23.0-75.0The [facility]cdonough HospitalComment on above:Performed By: #### CBC #### [facility] [address] [address] [address] Марина LangPlatelet mean volume (Bld) [Entitic vol]9.9 fLNormal9.5-13.5The [facility] Health SystemComment on above:Performed By: #### CBC #### [facility] [address] [place] [address] Dr. Марина LangPLT172 103/hwGytorp311-382Cif [facility] Health SystemComment on above: Performed By: #### CBC #### [facility] [address] [place] [address] Dr. Марина LangRBC4.30 106/ulNormal4.20-5.40The [facility] Health SystemComment on above:Performed By: #### CBC #### [facility] [address] [place] [address] Dr. Марина LangWBC5.4 103/ulNormal4.0-11.0The [facility] Health SystemComment on above: Performed By: #### CBC #### [facility] [address] [place] [address] Dr. Марина LangFRTRACE T4on 60-19-8809Soiz T4 [Mass/Vol]1.06 ng/dLNormal0.78-2.19 The [facility] SystemComgarden city hospital on above:Performed By: #### FT4 #### [facility] [address] [place] [address] Dr. Марина LangGLYCOHEMOGLOBIN A1Con 66-32-0505SKN RECOMMENDATIONADA THERAPEUTIC TARGET 6.0 - 7.0 ACTION SUGGESTED > 7.0NoHighland District HospitalComment on above:Performed By: #### A1C #### [facility] [address] [place] [address] Dr. Марина LangGlucose [Mass/Vol]131 mg/dLNoHighland District HospitalComment on above:Performed By: #### A1C #### [facility] [address] [place] [address] Dr. Марина LangHbA1c (Bld) [Mass fraction]6.2 %Critically high<=6.0The [facility] Health SystemComment on above:Performed By: #### A1C #### [facility] [address] [place] [address] Dr. Марина PuenteF CHEM 8 (BAS METB)on 75-22-7722Xslwb gap [Moles/Vol]8.9 mmol/LNormalThe [facility] Health SystemComment on above:Performed By: #### BMP, TSH #### [facility] [address] [place] [address] Dr. Марина LangCalcium [Mass/Vol]10.0 mg/dLNormal8.4-10.2The [facility] Comment on above:Performed By: #### BMP, TSH #### [facility] [address] [place] [address] Dr. Марина LangChloride [Moles/Vol]105 mmol/TQfewjb16-326Tot [facility] Comment on above:Performed By: #### BMP, TSH #### [facility] [address] [place] [address] Dr. Марина LangCO2 [Moles/Vol]35.0 mmol/LCritically high22.0-30.0The [facility] SystemComment on above:Performed By: #### BMP, TSH #### [facility] [address] [place] [address] Dr. Марина LangCreatinine [Mass/Vol]1.10 mg/dLCritically high0.52-1.04The [facility] SystemComment on above:Performed By: #### BMP, TSH #### [facility] [address] [place] [address] Dr. Parish ChangEGFR-AF YRQUPNOY85 mL/min/1.04w6Fzftskmibe low>=60The [facility] SystemComment on above:Performed By: #### BMP, TSH #### [facility] [address] [place] [address] Dr. Марина ToGFR-NON AF SUZAQFPD27 mL/min/1.95r5Hedvorotfp low>=60The [facility] SystemComment on above:Performed By: #### BMP, TSH #### [facility] [address] [address] [address] Марина LangGlucose [Mass/Vol]107 mg/dLCritically dkwe32-541Fxn [facility] SystemComment on above:Performed By: #### BMP, TSH #### [facility] [address] [address] [address] Марина LangPotassium [Moles/Vol]4.9 mmol/LNormal3.4-5.0The [facility] Comment on above:Performed By: #### BMP, TSH #### [facility] [address] [address] [address] Марина LangSodium [Moles/Vol]144 mmol/VUsopzm981-943Dyb [facility] Comment on above:Performed By: #### BMP, TSH #### [facility] [address] [place] [address] Dr. Марина LangUrea nitrogen [Mass/Vol]17.0 mg/dLNormal7.0-17.0The [facility] SystemComment on above:Performed By: #### BMP, TSH #### [facility] [address] [place] [address] Dr. Марина Mancera nitrogen/Creatinine [Mass ratio]15.5 mg/mgNoHighland District HospitalComment on above:Performed By: #### BMP, TSH #### [facility] [address] [place] [address] Dr. Марина Bauman 53-25-5303WEM9.603 uIU/mLNormal0.470-4.680The [facility] SystemComment on above:Performed By: #### BMP, TSH #### [facility] [address] [place] [address] Dr. Марина LEEMartins Ferry HospitalComment on above: Result Comment: <0.34 UIU/ml HYPERTHYROID 0.34-5.60 UIU/ml EUTHYROID >5.60 UIU/ml HYPOTHYROIDPerformed By: #### BMP, TSH #### [facility] [address] [place] [address] Dr. Марина Vann BIOMETRY W/ IOL CALC OU (BOTH EYES)[facility] Vital Signs Date TimeVital SignValuePerforming DfvqogqjaTqilwzke52-66-1953 14:20-0400Body awwmxk721.02 cmOumar Gunter MD Work Phone: 1(706)[address]10-30-2025 14:20-0400 Body mass index (BMI) [Ratio]34 kg/h5RbeszeOumar Gunter MD Work Phone: 1(419)[address] [place], [place] 9566210-30-2025 14:20-0400 Body walxeapunfv39.2 [degF]Oumar Gunter MD Work Phone: 1(419)[address] [place], [place] 9566210-30-2025 14:20-0400 Body gupeph04.08 kgOumar Gunter MD Work Phone: 1(419)[address] [place], [place] 9566210-30-2025 14:20-0400 Diastolic blood rnxnbmzu81 mm[Hg]Oumar Gunter MD Work Phone: 1(419)[address] [place], [place] 9566210-30-2025 14:20-0400 Heart zfhz517 /Joanne Gunter MD Work Phone: 1(419)[address] [place], [place] 9566210-30-2025 14:20-0400 SaO2% (BldA) [Mass fraction]91 %Oumar Gunter MD Work Phone: 1(883)[address] [place], [place] 9566210-30-2025 14:20-0400 Systolic blood orayjelu021 mm[Hg]Oumar Gunter MD Work Phone: 1(419)[address] [place], [place] 9566209-26-2025 10:02-0400 Diastolic blood ylvgumay78 mm[Hg]Oumar Gunter MD Work Phone: 1419)[address] [place], [place] 9566209-26-2025 10:02-0400 Heart rate92 /Joanne Gunter MD Work Phone: 1(419)[address] [place], [place] 9566209-26-2025 10:02-0400 Systolic blood wrhhayrl593 mm[Hg]Oumar Gunter MD Work Phone: 1(239)[address] [place], [place] 9566209-26-2025 09:57-0400 Body ntjxlo410.02 cmOumar Gunter MD Work Phone: 1(218)[address]09-26-2025 09:57-0400 Body mass index (BMI) [Ratio]35.4 kg/u9RrpfbnOumar Gunter MD Work Phone: 1419)[address] [place], [place] 9566209-26-2025 09:57-0400 Body zismyztltwg85.3 [degF]Oumar Gunter MD Work Phone: 1(419)[address] [place], [place] 9566209-26-2025 09:57-0400 Body erqytt13.71 kgOumar Gunter MD Work Phone: 1419)[address] [place], [place] 9566206-27-2025 10:12-0400 Body arvuln514.02 Chad Gunter MD Work Phone: 1419)[address] [place], [place] 9566206-27-2025 10:12-0400 Body mass index (BMI) [Ratio]34.5 kg/m9SwgdyvOumar Gunter MD Work Phone: 1(419)[address] [place], [place] 9566206-27-2025 10:12-0400 Body masobhzceob20.2 [degF]Oumar Gunter MD Work Phone: 1(419)[address] [place], [place] 9566206-27-2025 10:12-0400 Body ujkgga04.45 kgOumar Gunter MD Work Phone: 1419)[address] [place], [place] 9566206-27-2025 10:12-0400 Diastolic blood vkknoxrc95 mm[Hg]Oumar Gunter MD Work Phone: 1(419)[address] [place], [place] 9566206-27-2025 10:12-0400 Heart rate95 /minOumar Gunter MD Work Phone: 1419)[address] [place], [place] 9566206-27-2025 10:12-0400 Systolic blood nqefsvtb462 mm[Hg]Oumar Gunter MD Work Phone: 1419)[address] [place], [place] 9566205-06-2025 13:38-0400 Body skbqeb593.02 cmOumar Gunter MD Work Phone: 1(782)[address] [place], [place] 9566205-06-2025 13:38-0400 Body mass index (BMI) [Ratio]36.3 kg/q2AnsrwlOumar Gunter MD Work Phone: 1(184)[address]05-06-2025 13:38-0400 Body rtvydv79.98 kgOumar Gunter MD Work Phone: 1(522)[address]05-06-2025 13:38-0400 Diastolic blood xyfrkxyk91 mm[Hg]Oumar Gunter MD Work Phone: 1(254)[address]05-06-2025 13:38-0400 Heart rate95 /Joanne Gunter MD Work Phone: 1(009)[address]05-06-2025 13:38-0400 SaO2% (BldA) [Mass fraction]94 %Oumar Gunter MD Work Phone: 1(637)[address]359 [address]05-06-2025 13:38-0400 Systolic blood ivwptjjw671 mm[Hg]Oumar Gunter MD Work Phone: 1(922)[address] [place], [place] 9566204-29-2025 10:58-0400 Body rqfcln3285.24 cmOumar Gunter MD Work Phone: 1(177)[address] [place], [place] 9566204-29-2025 10:58-0400 Body mass index (BMI) [Ratio]0.2 kg/l2NrnscxOumar Gunter MD Work Phone: 1(588)[address]04-29-2025 10:58-0400 Body zardlr43.35 kgOumar Gunter MD Work Phone: 1(855)[address]04-29-2025 10:58-0400 Diastolic blood yjnhpwty40 mm[Hg]Oumar Gunter MD Work Phone: 1(161)[address]04-29-2025 10:58-0400 Heart rate84 /Joanne Gunter MD Work Phone: 1(182)[address]04-29-2025 10:58-0400 Systolic blood dzemczvt960 mm[Hg]Oumar Gunter MD Work Phone: 1(699)[address] [place], [place] 9566204-01-2025 14:15-0400 Body mkekdn805.02 cmOumar Gunter MD Work Phone: [facility]04-01-2025 14:15-0400 Body mass index (BMI) [Ratio]34.9 kg/u6YmwlzsOumar Gunter MD Work Phone: [facility]04-01-2025 14:15-0400 Body edoiwb90.35 kgOumar Gunter MD Work Phone: 1(729)168-[address] [place], [place] 5827804-01-2025 14:15-0400 Diastolic blood ctfuhrlz41 mm[Hg]Oumar Gunter MD Work Phone: 1(410)391-79[facility]04-01-2025 14:15-0400 Heart rate86 /Joanne Gunter MD Work Phone: 1(622)[phone]04-01-2025 14:15-0400 Systolic blood qvrbufcc524 mm[Hg]Oumar Gunter MD Work Phone: 1(629)648-[address] [place], [place] 5827803-28-2025 09:56-0400 Body ljliov518.02 cm[facility]03-28-2025 09:56-0400Body mass index (BMI) [Ratio]34.9 kg/x0IpliheibzMet[facility]health [facility] Center03-28-2025 09:56-0400Body jehujzfwost92.4 [degF][facility]03-28-2025 09:56-0400Body .35 kg[facility]03-28-2025 09:56-0400Diastolic blood szzopcqa96 mm[Hg][facility] 06-23-2024 09:56-0400Heart rate92 /[facility] 06-23-2024 09:56-0400Systolic blood uoiggtwk295 mm[Hg][facility]01-29-2025 09:27-0500Body ktsvac752.02 cmMet[facility]01-29-2025 09:27-0500Body mass index (BMI) [Ratio]34.3 kg/p6GhtxdivsnMet[facility]health [facility] Center01-29-2025 09:27-0500Body vdqivpcmjqn47.8 [degF][facility]01-29-2025 09:27-0500Body ifsimo32 kgMet[facility]01-29-2025 09:27-0500Diastolic blood wvhsixib87 mm[Hg][facility]01-29-2025 09:27-0500Heart rate86 /minMet[facility]health [facility] Center01-29-2025 09:27-0500Systolic blood bfbnkxec256 mm[Hg][facility]12-09-2024 11:50-0500Body .02 cmMet[facility]12-09-2024 11:50-0500Body mass index (BMI) [Ratio]34.9 kg/j0QdeojnrsiMet[facility]health [facility] Center12-09-2024 11:50-0500Body eurmtm43.35 kg [facility]12-09-2024 11:50-0500Diastolic blood aahalvzj67 mm[Hg][facility]12-09-2024 11:50-0500Heart rate86 /min [facility]12-09-2024 11:50-0500Systolic blood gyoqaczl440 mm[Hg][facility]03-06-2024 09:33-0500Body wykios309.02 cmMD Oumar Gunter Work Phone: [facility]03-06-2024 09:33-0500 Body mass index (BMI) [Ratio]33.6 kg/m2MD Oumar Gunter Work Phone: [facility]03-06-2024 09:33-0500 Body beumvs06.18 kgMD Oumar Gunter Work Phone: [facility]03-06-2024 09:33-0500 Diastolic blood ugqafxci84 mm[Hg]MD Oumar Gunter Work Phone: [facility]03-06-2024 09:33-0500 Heart bbvi857 /minMD Oumar Gunter Work Phone: [facility]03-06-2024 09:33-0500 Systolic blood znecynen519 mm[Hg]MD Oumar Gunter Work Phone: [facility]12-13-2023 10:00-0500 Body fmiftb890.02 cmOumar Gunter Other [employer] Other 12-13-2023 10:00-0500Body mass index (BMI) [Ratio] 34.68 kg/v0BpiqfrOumar Gunter Other [employer] Other 12-13-2023 10:00-0500Body .81 kgOumar Gunter Other [facility] [employer] Other [id number] 10:00-0500Diastolic blood hjdoqcdy66 mm[Hg] Oumar Gunter Other [employer] Other 12-13-2023 10:00-0500Systolic blood peaprono032 mm[Hg] Oumar Gunter Other [employer] Other 12-12-2023 11:20-0500Body nuymmw105.02 cmLindaditi WinklerMyra Other [employer] Other 12-12-2023 11:20-0500Body mass index (BMI) [Ratio] 34.72 kg/r5Iwsmc Myra Other [employer] Other 12-12-2023 11:20-0500Body itypnt95.91 kgLinda Myra Other [employer] Other 12-12-2023 11:20-0500Diastolic blood bixmcqxb90 mm[Hg] Myra Other [employer] Other 12-12-2023 11:20-0500Respiratory rate20 /minLinda Myra Other [employer] Other 12-12-2023 11:20-1128IvE1% (BldA) [Mass fraction]92 % Myra Other [employer] Other 12-12-2023 11:20-0500Systolic blood cogaqyio894 mm[Hg] Myra Other [employer] Other 11-13-2023 10:00-0500Body .02 cmLinda Myra Other [employer] Other 11-13-2023 10:00-0500Body mass index (BMI) [Ratio] 34.54 kg/p8Dlxqs Myra Other [employer] Other 11-13-2023 10:00-0500Body vlaiij94.45 kgLinda Myra Other [employer] Other 11-13-2023 10:00-0500Diastolic blood utlrqplv19 mm[Hg] Myra Other [employer] Other 11-13-2023 10:00-0500Respiratory rate18 /minLinda Myra Other [employer] Other 11-13-2023 10:00-2586FrS3% (BldA) [Mass fraction]94 % Myra Other [employer] Other 11-13-2023 10:00-0500Systolic blood czyxvcij535 mm[Hg] Linda Renteria Other [employer] Other 06-13-2023 10:30-0400Body gyydsa577.02 cmOumar Gunter Other [employer] Other 06-13-2023 10:30-0400Body mass index (BMI) [Ratio] 34.18 kg/y7TvuekjOumar Gunter Other [employer] Other 06-13-2023 10:30-0400Body uqsutn87.54 kgOumar Gunter Other [employer] Other 06-13-2023 10:30-0400Diastolic blood oamgjjqk29 mm[Hg] Oumar Lyric Other [employer] Other 06-13-2023 10:30-0400Systolic blood mm[Hg] Oumar Lyric Other [employer] Other 04-06-2023 10:45-0400Body .02 cmRobert [place] II Other [employer] Other 04-06-2023 10:45-0400Body mass index (BMI) [Ratio]35.6 kg/j9Qrlwpr Saw II Other [employer] Other 04-06-2023 10:45-0400Body nbwyev03.17 kgRobert Saw II Other [employer] Other 06-09-2022 10:45-0400Body vxylmr882.02 cmRobert [place] II Other [employer] Other 06-09-2022 10:45-0400Body mass index (BMI) [Ratio]35.6 kg/d3Rafacx [place] Other [employer] Other 06-09-2022 10:45-0400Body .17 kgRobert [place] II Other [employer] Other 05-12-2022 16:30-0400Body ggdvso498.02 cmRobert [place] II Other [employer] Other 05-12-2022 16:30-0400Body mass index (BMI) [Ratio]35.6 kg/m3Bkhhaz Saw II Other [employer] Other 05-12-2022 16:30-0400Body jcmugq34.17 kgRobert Saw II Other [employer] Other 05-04-2022 09:12-0400Body .3 cmPacc 1 Work Phone: [facility]05-04-2022 09:12-0400Body temperature 97 [degF]Pacc 1 Work Phone: [facility]05-04-2022 09:12-0400Body lpituv36.44 kgPacc 1 Work Phone: [facility]05-04-2022 09:12-0400Diastolic blood gacgtext76 mm[Hg]Pacc 1 Work Phone: [facility]05-04-2022 09:12-0400Heart rlzo482 /minPacc 1 Work Phone: [facility]05-04-2022 09:12-0400Respiratory rate 16 /minPacc 1 Work Phone: [facility]05-04-2022 09:12-5925EjM5% (BldA) [Mass fraction]96 %Pacc 1 Work Phone: [facility]05-04-2022 09:12-0400Systolic blood ctpznpos325 mm[Hg]Pacc 1 Work Phone: [facility]04-25-2022 12:30-0400Diastolic blood bkoahzmd85 mm[Hg]MD Oumar Gunter Work Phone: [facility]04-25-2022 12:30-0400 Heart rate98 /minMD Oumar Gunter Work Phone: 1([phone]04-25-2022 12:30-0400 Respiratory rate16 /minMD Oumar Gunter Work Phone: 1(940)739-25[facility]04-25-2022 12:30-0400 SaO2% (BldA) [Mass fraction]94 %MD Oumar Gunter Work Phone: 1(180)[phone]04-25-2022 12:30-0400 Systolic blood qsmojxbl748 mm[Hg]MD Oumar Gunter Work Phone: 1([phone])821-35[facility]04-25-2022 12:00-0400 Inhaled oxygen flow rate1 L/minMD Oumar Gunter Work Phone: 1(328)[phone]04-25-2022 10:21-0400 Body usgbxfrdbuz89.2 [degF]MD Oumar Gunter Work Phone: 1(229)[phone]04-25-2022 07:16-0400 Body abaszi895.29 cmMD Oumar Gunter Work Phone: 1([phone])[phone]04-25-2022 07:16-0400 Body mass index (BMI) [Ratio]35.7 kg/m2MD Oumar Gunter Work Phone: 1(348)635-28[facility]04-25-2022 07:16-0400 Body tozxxy92 kgMD Oumar Gunter Work Phone: 1([phone]04-08-2022 10:30-0400 Body jcaece689.02 cmRobert [place] II Other [employer] Other 04-08-2022 10:30-0400Body mass index (BMI) [Ratio] 35.42 kg/k9Mxykem [place] Other [employer] Other 04-08-2022 10:30-0400Body klqbor30.72 kgRobert [place] II Other [employer] Other 03-02-2022 11:15-0500Body .02 cmRobert [place] II Other [employer] Other 03-02-2022 11:15-0500Body mass index (BMI) [Ratio]35.6 kg/o6Ylorou Swa II Other [employer] Other 03-02-2022 11:15-0500Body dumauu29.17 kgRobert [place] II Other [employer] Other Encounters Encounter DateEncounter TypeCare ProviderFacilityStart: 01-25-2025 End: 56-93-9946ogdnbdxltyWokfsp E Braun MD Work Phone: [facility] 01-25-2025 End: 44-86-8217Btlvfzs encounter Edda Gunter MD-[facility] Work Phone: Start: 12-22-2024 End: 90-71-9361htfrxeabvnDeyehj E Braun MD Work Phone: [facility] Work Phone: Start: 12-22-2024 End: 73-32-7365Rykgykt encounter Noemí Aleman [facility] Work Phone: Start: 09-22-2024 End: 74-33-6699gezundldblEfblyc E Braun MD Work Phone: [facility] Work Phone: Start: 09-22-2024 End: 41-66-5510Qbwqqxw encounter procedureZunildamajo Aleman [facility] Work Phone: Start: 04-58-3026Bsa-patient / Non-visitFidelina Escobar MDUniversity Of Washington [facility] Work Phone: Start: 08-01-2024 End: 67-79-9751jncmjvtmtmBdmsfw E Braun MD Work Phone: [facility] Work Phone: Start: 08-01-2024 End: 11-93-8007Wueeoog encounter procedureOumar Gunter MD Work Phone: [facility] Work Phone: Start: 74-36-0677Ude-patient / Non-visitOumar Gunter MD Work Phone: [facility] Physician [facility] Work Phone: Start: 41-76-1356Sgk-patient / Non-visitOumar Gunter MD Work Phone: [facility] GroupUniversity [facility] Work Phone: Start: 95-51-3676Amg-patient / Non-visitOumar Gunter MD Work Phone: [facility] GroupUniversity [facility] Work Phone: Start: 07-25-2024 End: 62-12-4026mowgrxlweuUwpphw E Braun MD Work Phone: [facility] Work Phone: Start: 07-25-2024 End: 58-22-5268Kzpbtae encounter procedureOumar Gunter MD Work Phone: [facility] Work Phone: Start: 08-53-4277Eij-patient / Non-visitOumar Gunter MD Work Phone: [facility] Physician [facility] Work Phone: Start: 06-27-2024 End: 26-93-0124guoucosdtrYxhoei E Braun MD Work Phone: [facility] Work Phone: Start: 06-27-2024 End: 43-62-2368Zrmbeok encounter procedureOumar Gunter MD Work Phone: [facility] Physician [facility] Work Phone: Start: 06-27-2024 End: 74-99-5726Jkufatj encounter procedureOumar Gunter MD Work Phone: [facility] [place] [facility] Start: 06-27-2024 End: 14-68-1796hpszuxrrycBmyyvp E Braun MD Work Phone: [facility] Work Phone: Start: 06-23-2024 End: 49-99-6405klpyhmxdmiYqgvrfzorTogus VA Medical Center Work Phone: Start: 06-23-2024 End: 71-54-9447Shvlaxq encounter procedureBrianu[facility] Physician [facility] Work Phone: Start: 05-09-2024 End: 50-55-2854jrzkknfgmiWglkaeecpTogus VA Medical Center Work Phone: Start: 05-09-2024 End: 82-88-2021Abupyzl encounter procedureBrianu[facility] Physician [facility] Work Phone: Start: 05-05-2024 End: 71-72-0671Ccraqbq encounter procedureBrianu[facility] health [facility] Physician [facility] Work Phone: Start: 04-26-2024 End: 23-70-1759Ldzuukz encounter procedureBrianu[facility] health [facility] Physician [facility] Work Phone: Start: 55-80-7843Vejyebk encounter procedureHocking [facility] Community Hospitaltart: 03-06-2024 End: 29-47-2662Zykhike encounter procedureAt[facility] GroupAccess [facility] Work Phone: Start: 03-24-5836Bvp-patient / Non-visitAt[facility] Phys[facility] GroupUniversity [facility] Work Phone: Start: 06-15-2023 End: 69-50-9753yomhhiujelMJ Oumar Gunter Work Phone: [facility] Work Phone: Start: 06-15-2023 End: 72-10-9510Haetssxc ReferredMD Oumar Gunter Work Phone: [facility]-LAB [facility] HospStart: 89-84-9894Xap-patient / Non-visitMD Oumar Gunter Work Phone: [facility] Physician [facility] Work Phone: Start: 06-02-2023 End: 28-85-1831Lowsihu encounter procedureMD Oumar Gunter Work Phone: [facility] Work Phone: Start: 48-60-5829Yty-patient / Non-visitMD Oumar Gunter Work Phone: [facility] Work Phone: Start: 82-09-7732Nvi-patient / Non-visitMD Oumar Gunter Work Phone: [facility] GroupUniversity [facility] Work Phone: Start: 55-56-1169Ckc-patient / Non-visitMD Oumar Gunter Work Phone: [facility] Physician [facility] Work Phone: Start: 15-46-3514Jiy-patient / Non-visitMD Oumar Gunter Work Phone: [facility] GroupUniversity [facility] Work Phone: Start: 97-82-2509Jds-patient / Non-visitMD Oumar Gunter Work Phone: [facility] Work Phone: Start: 03-03-1222Eiv-patient / Non-visitMD Oumar Gunter Work Phone: [facility] GroupUniversity [facility] Work Phone: Start: 23-21-4463Snr-patient / Non-visitMD Oumar Gunter Work Phone: [facility] Physician [facility] Work Phone: Start: 05-04-2023 End: 28-63-8041dagtilwprgEmzdot [employer] Other [employer] [facility] [employer] Other Start: 35-76-4913Vgbjpctnb encounterOmuar GunterAccess Hospital [facility] ClinicStart: 03-10-2023 End: 06-31-9552yatkxfyvjpOwoukh [employer] Other [facility] [employer] Other Start: 97-56-6982Busbpd outpatient visit 15 minutes Oumar LyricAccess Hospital [place] ClinicStart: 03-09-2023 End: 81-59-2236madwrirmvuCbyda Njoroge Other [facility] [employer] Other Start: 50-37-9754Qapwhu outpatient visit 25 minutes [facility] CardiologyStart: 41-96-2157Jksmyzoie encounterMarcia LyricAccess Hospital [place] ClinicStart: 03-03-2023 End: 62-95-3652jwhkcpmiyuTQ Oumar Gunter Work Phone: [employer] Other Start: 03-03-2023 End: 78-32-7007Gfkusxh encounter procedureMD Oumar Gunter Work Phone: [facility]-Res[facility] Therapy Work Phone: Start: 03-02-2023 End: 38-43-2067Qeupswf encounter procedureMD Oumar Gunter Work Phone: [facility]-Electrodiagnostics Work Phone: Start: 02-25-2023 End: 93-74-9284ohysyctmjqRD Marcia E Braun Work Phone: [facility] Work Phone: Start: 02-25-2023 End: 98-37-4408Kflzgnw encounter procedureMD Oumar Gunter Work Phone: [facility]-Electrodiagnostics Work Phone: Start: 02-15-2023 End: 48-28-5486njyneucvdbKpcyoi Braun Other [employer] Other Start: 70-95-5697Cwplnwgpp encounterOumar [facility] Centertart: 02-10-2023 End: 07-91-2662qjysvoytbjFfeyq Myra Other [employer] Other Start: 02-11-5893Lilllcwwz encounterLinda MyraFPRod Referral CoordinatorStart: 02-08-2023 End: 14-50-4117mfcgwdadbtZganz Myra Other [employer] Other Start: 89-63-6326Oyvuuc outpatient new 45 minutesLinda Jimmy CardiologyStart: 02-01-2023 End: 27-80-8198apcnxouqjcVlzwlc Braun Other [employer] Other Start: 49-46-5590Adxzujrho encounterMarcia [facility] ClinicStart: 01-05-2023 End: 23-93-5660ehgsobogxqJeimid Gunter Other [employer] Other Start: 09-45-2940Urhtunykv encounterMarcia [facility] ClinicStart: 12-31-2022 End: 59-24-4360shisdthbmzAulmxx Gunter Other [employer] Other Start: 02-49-7664Fbalyxjxw encounterMarcia Stephanie [facility] ClinicStart: 10-01-2022 End: 99-03-0916xilmggzwsvNmuppc Gunter Other [employer] Other Start: 74-89-8825Pimfbwgak encounterMarcia Stephanie [facility] ClinicStart: 09-23-2022 End: 29-56-3097etviucsgqlKedruo Gunter Other [employer] Other Start: 72-01-4908Eaczfvzlo encounterMarcia Stephanie [facility] ClinicStart: 09-09-2022 End: 56-61-8349xtxqdjtcvzBifbup Gunter Other [employer] Other Start: 57-99-4139Plvxpnoqv encounterMarcia Stephanie [facility] ClinicStart: 09-08-2022 End: 02-87-6956fljexplpzyFeuoeg Gunter Other [employer] Other Start: 41-83-7277Mlxojj outpatient visit 25 minutes [facility]Start: 07-[facility]2022 End: 48-64-8295skxyyzgusnFaswzc Gunter Other [employer] Other Start: 56-47-7592Mmlepqtnw encounterMarcia LyricFPG [facility] ClinicStart: 07-02-2022 End: 09-97-3530Lnqgktu encounter procedureMD Oumar Gunter Work Phone: [facility] Start: 07-02-2022 End: 87-98-7904lmpsyuhwcfXK Oumar San Gunter Work Phone: [facility] Work Phone: Start: 06-03-2022 End: 87-61-4420oqzueagkarJbbdmt Braun Other [employer] Other Start: 35-31-3278Xaxfjzplq encounterMarciaditi [facility] ClinicStart: 04-08-2022 End: 37-64-8739thhzhcvchcSvgagg Braun Other [employer] Other Start: 87-38-9471Qeplzmqwg encounterMarciaditi [facility] ClinicStart: 77-71-8980ktesivndsjJP OUMAR GUNTERFacility:I8Recld: 10-17-2021 End: 27-79-0899zubfqsqdujEJ OUMAR GUNTERFacility:L0Hsbai: 10-16-2021 End: 53-56-2827Fxpoekh encounter procedureMD Oumar Gunter Work Phone: [facility] Start: 09-18-2021 End: 32-37-0380buqhiiycfzQsrxuv [place] Other [employer] Other Start: 76-92-8565Xhjdep outpatient visit 15 minutes Miguel MOJICA [facility]icsStart: 09-04-2021(Post-Op) Post-Op Miguel MOJICAG [facility]icsStart: 09-04-2021 End: 10-14-3661vwlhnprwxeEzwrgd [place] II Other [employer] Other start: 09-04-2021 End: 10-98-2164Bmflmjz encounter procedureMD Oumar Lyric Work Phone: [facility] Start: 08-27-2021 End: 19-94-6477iemjbnwkvrZTWLKQ CARLISLEFacility:T9Ccirs: 08-20-2021 End: 15-91-4361Lfhlvqv encounter procedureStepleanna Pacheco OD Work Phone: OphthalmologyComment on above:S/P cataract extraction and insertion of intraocular lens, left (Primary Dx); 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Start: 08-07-2021 (Post-Op) Post-OpRobert Saw IIFPG [facility]icsStart: 08-07-2021 End: 90-52-0390kumopdrvrrUltktj [place] Other [place] [employer] Other Start: 08-07-2021 End: 61-62-1580Mjgmgdj encounter procedureAikimberly Infante MD Work Phone: OphthalmologyComment on above:S/P cataract extraction and insertion of intraocular lens, left (Primary Dx); 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Start: 07-30-2021 End: 38-90-7882Hbgbtvm encounter procedureEye Measurements Work Phone: OphthalmologyComment on above:Combined forms of age- related cataract of both eyesStart: 07-30-2021 End: 86-92-0012Xdbkzucga to establishmentPacc [place] 1 Work Phone: [facility] FHCStart: 07-30-2021 End: 27-52-7319hgvpddqnupHptr [place] 1 Work Phone: Pre AnesthesiaComment on above:Pre-op evaluation (Primary Dx); Cataract of both eyes, unspecified cataract type; Other hyperlipidemia; Complex regional pain syndrome type 1, affecting unspecified siteStart: 07-30-2021 End: 50-22-0111Lwfimeyhdutus examination donePacc [place] 1 Work Phone: Pre AnesthesiaStart: 07-23-2021 End: 87-35-5102uzhjwqgtoxRnfcvx [place] Other [employer] Other Start: 24-23-7016Ufshlcsua encounterRobert [place] [facility]icsStart: 07-21-2021 End: 45-31-5700gvcblloozrBvwyra [place] II Other [employer] Other Start: 93-20-1788Msymzaepl encounterRobert [place] [facility] OrthopedicsStart: 07-21-2021 End: 99-63-2108Uhboghdes to same day surgery center Oumar Lyric Work Phone: [facility] CampusStart: 07-11-2021(Prolonged) Prolonged ServicesRobert [place] IIFPG [facility]icsStart: 07-11-2021 End: 36-15-2173blegjwijiwUaxjae Saw II Other [employer] Other Start: 07-10-2021 End: 26-05-7670fyyvvxzwcqMrbeur [place] Other [employer] Other Start: 95-69-0901Gogyprydv encounterRobert [place] [facility]icsStart: 07-04-2021 End: 25-76-6586jazfldrwfrFgjnrx [place] II Other [employer] Other Start: 88-26-1692Sldwyvxny for other preprocedural examinationRobert [place] IIFPG [facility]icsStart: 28-10-7566Szmytck encounter procedureRobert [place] IIFPG [facility]opedicsStart: 05-28-2021 End: 73-02-8405lbjikkeuhgCtifwx [place] II Other [place] [employer] Other Start: 08-80-6521Fekxzkydp for other preprocedural examinationRobert [place] IIFPG [facility]icsStart: 82-82-7032Xifwec outpatient visit 40 minutesRobert [place] IIFPG [facility]opedicsStart: 04-28-2021 End: 31-80-4756nrlvtrkqveNO OUMAR GUNTERFacility:Q3Yukhj: 04-03-2021 End: 61-71-2455rvehapzxwrYE OUMAR GUNTERFacility:E7Zhqst: 04-01-2021 End: 99-44-9778cwowzwxpwgVV MARCIA E BRAUNFacility:S1Yejaz: 02-04-2021 End: 82-43-0286qbdhynkjkqMYNFXW H FAWWADFacility:H1 Procedures DateProcedureProcedure DetailPerforming ClinicianStart: 51-37-0831Ejzzf X-ray of left wristOumar Gunter MD Work Phone: Start: 33-63-9736Ewzxknjg identified in Sputum by Respiratory cultureMD Oumar Gunter Work Phone: Start: 94-38-9259Uhwbfqscelv observation [Identifier] in Unspecified specimen by Gram stainMD Oumar Gunter Work Phone: Start: 91-84-4014Ugidd Culture 1MD Oumar Gunter Work Phone: Start: 79-30-2727Rnpef Culture 2MD Oumar Gunter Work Phone: Start: 14-00-4609B-ray of left kneeMD Oumar Gunter Work Phone: Start: 08-09-5912Skjhj X-ray of left femurMD Oumar Gunter Work Phone: Start: 08-40-1794Cmafo X-ray of left tibia and left fibulaMD Oumar Gunter Work Phone: Start: 12-84-9285O-ray of left kneeMD Oumar Gunter Work Phone: Start: 17-01-5640R-ray of left kneeMD Oumar Gunter Work Phone: Start: 37-18-6393ILL BIOMETRY W/ IOL CALC OU (BOTH EYES)Jennifer Infante MD Work Phone: Start: 85-63-5153K-ray of left kneeMD Oumar Gunter Work Phone: Start: 47-39-0179Asmru replacement of left knee joint MD Oumar Gunter Work Phone: Start: 06-32-1283Drreg depression screening assessment [facility] Work Phone: Plan of Treatment DateCare ActivityDetailAuthorStart: 52-00-4133Xfecc X-ray of left wristXR wrist LT min 3V*[facility]tart: 47-65-6750BO Wrist - left GE 3 ViewsHocking Valley Community Hospitaltart: 00-34-9485Pvejbnd referral [facility] Work Phone: Start: 63-87-3523Yussotq referralS[facility]by [facility] Work Phone: Start: 40-55-4676Salxpopddhgx myocardial perfusion stress studyNM priscila perf SPECT rest & strHocking Valley Community Hospitaltart: 03-86-0697Bjjehkzcj vaccinationINFLUENZA (Season Ended)[facility] Hospitaltart: 07-21-2021 End: 30-67-4842ZjqlaucsyShelby Memorial Hospital [facility]tr Work Phone: Start: 78-01-2293YOAAJ-19 VACCINE (4 - Booster for Pfizer series)COVID-19 VACCINE (4 - Booster for Pfizer series)[facility] Start: 67-26-0416CECAZJE DIRECTIVE DISCUSSIONADVANCE DIRECTIVE DISCUSSION [facility] Hospitaltart: 50-22-7025IAKEZDSU SCREENDIABETES SCREENWyandot Memorial Hospital Start: 36-87-3193Uizli depression screening assessmentDEPRESSION SCREENING [facility] Hospitaltart: 19-86-4651JBPW DENSITYBONE DENSITYC[facility] Clinic [facility]inte Hospitaltart: 50-46-2223GNIPNKDMC AGE 65 AND OVER WITH 5YR LOOKBACK (#1)PNEUMOVAX AGE 65 AND OVER WITH 5YR LOOKBACK (#1)[facility] Hospitaltart: 58-45-8694KLCOUDYE VACCINE (2 of 3)SHINGRIX VACCINE (2 of 3)[facility] Hospitaltart: 12-40-5821Terpd microalbumin profileDTAP,TDAP,TD (1 - Tdap)[facility] 1963 ANNUAL PCP TEAM CHRONIC DISEASE VISITANNUAL PCP TEAM CHRONIC DISEASE VISIT [facility]t: 14-02-7308KCJQVWVEH C SCREENINGHEPATITIS C SCREENING [facility] Centerrt: 77-90-2977QYXCGOTGDMSQ: 65+ (1 - PCV)PNEUMOCOCCAL: 65+ (1 - PCV)[facility] HospitalComprehensive metabolic 2000 panel - Serum or Plasma [facility] CenterPatient referralSt. [facility] Work Phone: Urine cultureMetrohealth Parma Medical CenterXR Chest 2 [facility] HospitalXR Chest 2 [facility] HospitalXR Ribs - right [facility] Immunizations Immunization DateImmunizationNotesCare EcluifviPszlujpf98-83-2176gyzibzkyo, high dose seasonal, preservative-freeMetrohealth Parma Medical Center10-25-2023 influenza, high dose seasonal, preservative-freeElysiaa Lyric Other [employer] Other [id number] virus vaccine, unspecified formulationMD Oumar Gunter Work Phone: [facility]10-14-2022influenza virus vaccine, split virus (incl. purified surface antigen)Oumar Gunter Other [employer] Other 10711688-02-8991jhwvkavya virus vaccine, unspecified formulationMD Oumar Gunter Work Phone: [facility]11-16-2021COVID-19 mRNA, Comirnatjanee (Pfizer)MD Oumar Gunter Work Phone: [facility]10-14-2021influenza virus vaccine, split virus (incl. purified surface antigen)Oumar Gunter Other [employer] Other 10074077-77-5869lobtbgtnm virus vaccine, unspecified formulationMD Oumar Gunter Work Phone: [facility]03-04-2021COVID-19 mRNAIon (Pfizer)MD Oumar Gunter Work Phone: [phone]02-11-2021COVID-19 mRNAIon (Like.com)MD Oumar Gunter Work Phone: [phone]09-17-2020influenza virus vaccine, split virus (incl. purified surface antigen)Oumar Gunter Other [place] [employer] Other [id number] virus vaccine, unspecified formulationMD Oumar Gunter Work Phone: [facility]10-17-2019influenza virus vaccine, split virus (incl. purified surface antigen)Oumar Gunter Other [facility] [employer] Other 10332345-60-3357zvjmnnjql virus vaccine, unspecified formulationMD Oumar Gunter Work Phone: [facility]09-29-2010zoster vaccine, liveEye Measurements Work Phone: [facility] Payers DatePayer CategoryPayerPolicy [id number] MEDICARE HUMANA MEDICARE PPO [id number] 2021-Present [phone] [address] [address] [place] [address] [id number] 1960Medicare [id number]-pay [id number] [id number] [id number] [id number] 2.16.840.1.600061.3.57[id number] [id number] [id number] 2.16.840.1.483587.3.579.2.531 Social History DateTypeDetailFacilityStart: 12-25-2010 End: 22-56-5082Xuqbwft smoking status NHISNever smoked tobaccoWyandot Memorial Hospital Start: 89-60-4358Leziuvl use and exposureSmokeless tobacco non-userCleveland Clinic South Pointe Hospitaltart: 07-30-2021 End: 01-66-2170Uoiyrkz intakeCurrent drinker of alcohol (finding)[facility] Hospitaltart: 89-71-1928Vbjocei SDOH Alcohol Commentvery rareWyandot Memorial Hospital Start: 95-59-5357Gum Assigned At BirthFeSalem City Hospitaltart: 06-29-2021 End: 98-51-2151Ijlhkxtk to SARS-CoV-2 (event)Not sureCleveland Clinic South Pointe Hospitalex Assigned At BirthSex Assigned At BirthNorth [employer] Other Start: 05-09-2024 End: 79-29-9705GntXltohu (finding)[facility] Medical Equipment Procedure CodeEquipment CodeEquipment Original TextEquipment IdentifierDates Arthroplasty, knee, total, minimally invasiveOrthopaedic cement, non-medicated ()[id number] FDAStart: 18-35-6383Lelrnuppaqca, knee, total, minimally invasiveUncoated knee femur prosthesis ()[id number] FDAStart: 11-54-9531Hfnasadpamhx, knee, total, minimally invasiveTibial insert()[id number] FDAStart: 69-66-1824Xmchzrjcvkyi, knee, total, minimally invasivePolyethylene patella prosthesis()[id number] FDAStart: 07-21-2021 Arthroplasty, knee, total, minimally invasiveKnee stem ()[id number] FDAStart: 18-70-8056Engmuxinnvbf, knee, total, minimally invasiveUncoated knee tibia prosthesis, metallic ()[id number] FDAStart: 16-37-0635Aekyln Nrstm Pls Imp Chrg Kt - [id number]: 17-82-9285Oqi-Of-A-Kind Implant - [id number]: 47-60-3715Oraxxtd on above:Description: LINEAR ST 70CM 8 CONTACT LEAD OUAEkp-Qq-F-Kind Implant - [id number]: 34-41-4416Lhjixle on above:Description: CLIK ANCHORKit Stim 50cm Porsha 8 Cntct Ld - [id number]: 02-94-2593Fspy Iol 0d +13 Tony Uv Abs - [id number]: 27-13-9395Lagdest on above:Description: -0.39Lens Iol 0d +13 Tony Uv Abs - [id number]: 08-40-8678Ejkrtez on above: Description: -0.48 Goals DatePatient GoalDesired Activity/State Clinical Notes 02-05-2021 to 12-22-2024 Note Date & LusnNhdbSzcwwjgy76-49-0121 Evaluation note* Diagnosis Onset Date Resolution Status Admit Date 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 acuteSeptember 2024 9:53amCoughacuteOctober 2024 2:10pmModerate COPD (chronic obstructive pulmonary disease)acuteOctober 2024 2:10pmRib pain on right sideacuteOctober 2024 2:10pm [facility] Work Phone: 1(497) 115-755404-01-2025 Evaluation note* Diagnosis Onset Date Resolution Status Admit Date Arthritis of carpometacarpal (CMC) joint of left thumb acuteApril 2024 1:57pmArthritis of qgurxzvk-ffxjvzgff-qpoyaqaxf joint of left handacuteApril 2024 1:57pmLeft hand painacuteApril 2024 1:57pm ConfusionacuteApril 2024 10:55amCoughacuteApril 2024 10:55amFall acuteApril 2024 10:55amRib fractureacuteApril 2024 10:55amCHF (congestive heart failure)acuteMay 2024 1:31pmEdemaacuteMay 2024 1:31pm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acuteJune 2024 10:02am [facility] Work Phone: 1(216) 541-245703-28-2025 Evaluation note* Diagnosis Onset Date Resolution Status Admit Date 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 acuteMarch 2024 9:46amArthritis of carpometacarpal (CMC) joint of left thumbacuteApril 2024 1:57pmArthritis of azvuwdvs-mxmbncqjd-caqsndyso joint of left handacuteApril 2024 1:57pmLeft hand painacuteApril 2024 1:57pm ConfusionacuteApril 2024 10:55amCoughacuteApril 2024 10:55amFall acuteApril 2024 10:55amRib fractureacuteApril 2024 10:55amCHF (congestive heart failure)acuteMay 2024 1:31pmEdemaacuteMay 2024 1:31pm [facility] Work Phone: [phone] 876-732501-29-2025 Evaluation note* Diagnosis Onset Date Resolution Status Admit Date 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 acuteJanuary 2024 9:25amConstipationacuteJanuary 2024 9:25am Encounter for palliative careacuteJanuary 2024 9:25am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acuteMarch 2024 9:46amNeuropathic pain, leg, bilateral acuteMarch 2024 9:46am [facility] Work Phone: [phone]) 582-581501-29-2025 Evaluation note* Diagnosis Onset Date Resolution Status Admit Date 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 acuteJanuary 2024 9:25amConstipationacuteJanuary 2024 9:25am Encounter for palliative careacuteJanuary 2024 9:25am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acuteMarch 2024 9:46amArthritis of carpometacarpal (CMC) joint of left thumbacuteApril 2024 1:57pmArthritis of qtjjtfwz-uariwqnla-hwqjncjvt joint of left handacuteApril 2024 1:57pmLeft hand painacuteApril 2024 1:57pm [facility] Work Phone: 1([phone] 366-919801-29-2025 Evaluation note* Diagnosis Onset Date Resolution Status Admit Date 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 acuteJanuary 2024 9:25amConstipationacuteJanuary 2024 9:25am Encounter for palliative careacuteJanuary 2024 9:25am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acuteMarch 2024 9:46amArthritis of carpometacarpal (CMC) joint of left thumbacuteApril 2024 1:57pmArthritis of zstihogf-flqdnohfk-txjsegrto joint of left handacuteApril 2024 1:57pmLeft hand painacuteApril 2024 1:57pmConfusionacuteApril 2024 10:55amCough acuteApril 2024 10:55amFallacuteApril 2024 10:55amRib fractureacute Catherine 2024 10:55am [facility] Work Phone: 1([phone]) 434-305612-09-2024 Evaluation note* Diagnosis Onset Date Resolution Status Admit Date Chronic thoracic back pain acuteDecember 2023 11:41amLeft wrist painacuteDecember 2023 11:41am Medicare annual wellness visit, subsequentacuteDeceer 2023 11:41am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acuteJanuary 2024 9:25amConstipationacute Imelda 2024 9:25amEncounter for palliative careacuteJanuary 2024 9:25am [facility] Work Phone: 1([phone] 328-692502-06-2024 Evaluation note* Encounter Date Diagnosis Assessment Notes Treatment Notes Treatment Clinical Notes Apr, Neuropathic pain, leg, bilateral (ICD-10 - G57.93) [employer] Other 12-13-2023 Evaluation note* Encounter Date Diagnosis [...] from Cardiology - followup in 1 yr. [employer] Other 12-12-2023 Evaluation note* Encounter Date Diagnosis Assessment Notes Treatment Notes Treatment Clinical Notes Feb, Pulmonary HTN (ICD-10 - I27.20) Ms Tang is a 77yoF with PMH of hypertension, osteoarthritis, repots hx of CHF in 2002 to due to stress, hx of L breast cancer s/p bilateral mastectomy in 2009-no chemo or radiation. Referred Juan Jose Gunter for abnormal echocardiogram. Echo preformed at [facility] 12/29/2022 showed EF 55-60% with normal diastolic function. Normal RV size and function with RVSP of 37 mmHg.. Patient states she has experienced SOB and diaphoresis for approximately the last 6 months, denies CP or palpitations, BLE edema, orthopnea, PND or weight gain. 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 [...] (chronic obstructive pulmonary disease) (ICD-10 - J44.9) [employer] Other 12-06-2023 Evaluation note* Encounter Date Diagnosis Assessment Notes Treatment Notes Treatment Clinical Notes Feb, Neuropathic pain, leg, bilateral (ICD-10 - G57.93) [employer] Other 11-20-2023 Evaluation note* Encounter Date Diagnosis Assessment Notes Treatment Notes Treatment Clinical Notes Jan, Pulmonary HTN (ICD-10 - I27.20) [employer] Other 11-13-2023 Evaluation note* Encounter Date Diagnosis Assessment Notes Treatment Notes Treatment Clinical Notes Jan, Pulmonary HTN (ICD-10 - I27.20) Ms Tang is a 77yoF with PMH of hypertension, osteoarthritis, repots hx of CHF in 2002 to due to stress, hx of L breast cancer s/p bilateral mastectomy in 2009-no chemo or radiation. Referred byDr Oumar Gunter for abnormal echocardiogram. Echo preformed at [facility] 12/29/2022 showed EF 55-60% with normal diastolic [...] (ICD-10 - R06.02) Jan,iaphoresis (ICD-10 - R61) [employer] Other 11-06-2023 Evaluation note* Encounter Date Diagnosis Assessment Notes Treatment Notes Treatment Clinical Notes Jan, Neuropathic pain, leg, bilateral (ICD-10 - G57.93) [employer] Other 10-05-2023 Evaluation note* Encounter Date Diagnosis Assessment Notes Treatment Notes Treatment Clinical Notes Dec, Acute thoracic back pain, unspecified back pain laterality (ICD-10 - M54.6) [employer] Other 07-06-2023 Evaluation note* Encounter Date Diagnosis Assessment Notes Treatment Notes Treatment Clinical Notes Sep, Acute thoracic back pain, unspecified back pain laterality (ICD-10 - M54.6) [employer] Other 06-13-2023 Evaluation note* Encounter Date Diagnosis [...] that present medications do control her symptoms. 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 The Medrol Dosepak seem to help her significantly with the inflammation. She can continue activities as tolerated and continue working with physical therapy as recommended. Follow-up in 4 weeks for repeat examination and long standing x-rays. 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 [...] tolerated. Continue PT as recommended. Continue taking pqbo-kzy-zkxpjkz anti-inflammatories as needed for assistance with swelling and pain associated with the operative extremity. Follow-up in 2 for a recheck and then 4 weeks for repeat examination and long standing x-rays. [employer] Other 05-25-2022 NoteHNO ID: [id number] Author: Mary Pacheco OD Service: ? 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 [...] 3 view x-rays of the left knee. [employer] Other 05-12-2022 NoteHNO ID: [id number] Author: Mary Pacheco OD Service: ? Author Type: JEWELLERY DESIGNER Type: Progress Notes Filed: 08/07/2021 9:08 AM [...] Mary Pacheco, OD August 07, 2021 8:59 [facility]05-12[facility] History of Present illness Narrative* Mary [...] 07, 2021 8:59 AM documented in this encounterWyandot Memorial Hospital05-04-2022 NoteHNO ID: [id number] Author: PARK Cedeño Service: ? Author Type: Cat And Dog Bather Type: Progress Notes Filed: 07/30/2021 10:04 AM Note Text: CONFIRM AIM PLANO BOTH EYES. IQ IOL PATIENT AWARE THAT HE WILL NEED GLASSES FOR ALL DISTANCES. PARK CedeñoAv[facility] History of Present illness Narrative* PARK Cedeño - 07/30/2021 10:00 AM EDT CONFIRM AIM PLANO BOTH EYES. IQ IOL PATIENT AWARE THAT HE WILL NEED GLASSES FOR ALL DISTANCES. PARK Cedeño documented in this encounterWyandot Memorial Hospital05-04-2022 Instructions* Patient Instructions* Shikha Kate APRN.JIN - 07/30/2021 9:23 AM EDT PATIENT PREOPERATIVE INSTRUCTIONS Jennifer Infante V, MD has scheduled you for your procedure at this surgery center: [facility]: [phone] --[address] [place] [address]. Please read below carefully for your personalized [...] Advance Directive, please fax a copy to [phone] or email to for it to be [...] day. Shikha Kate APRN.JIN documented in this encounterWyandot Memorial Hospital05-04-2022 History and physical note * Shikha [...] with implants PAST SURGICAL HISTORY OF [employer] ([employer]) TOTAL KNEE REPLACEMENT Left FAMILY HISTORY [...] fevers. Neuro: No history of TIA's, stroke, COMPLAINT ADJUSTER tumor, impaired sensorium, hemiplegia, paraplegia or quadraplegia. No neurological symptoms or problems. Respiratory: No history of current cough or dyspnea, or pneumonia in the past 6 weeks. No history of respiratory/pulmonary symptoms or problems. Cardiovascular: No history of HTN requiring medication, no history of angina, CHF, MO, cardiac surgery or stents. Denies rest pain, gangrene or revascularization/amputation for PVD. No history of cardiovascular symptoms or problems. +HLD GI: No history of GI symptoms or problems. No history of esophageal varices, recent ascites, or ETOH greater than 2 drinks per day. 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 The manager program management was vital for surgery timing and scheduling [...] plans. Prolonged services time spent: 32 minutes [employer] Other 04-14-2022 Evaluation note* Encounter Date Diagnosis Assessment Notes Treatment Notes Treatment Clinical Notes Jun, Age-related osteopor osis without current pathological fracture (ICD-10 - M81.0) [employer] Other 04-08-2022 Evaluation note* Encounter Date Diagnosis [...] - Pharmacy: [facility] med to bed - Approach/Technique: ALICIA - [...] elected to proceed with the above surgery. [employer] Other 03-02-2022 Evaluation note* Encounter Date Diagnosis [...] pathological fracture (ICD- 10 - M81.0) May,n intermediate accountant drug therapy (ICD-10 - Z79.899) May,reop examination [...] or absent clearances could delay their surgery. [employer] Other 03-01-2022 NoteHNO ID: [id number] Author: Jennifer Infante V, MD Service: ? [...] both eyes, left eye first - Aim: [place] Both eyes [monocular precautions following Cataract extraction] [...] patient was offered a [facility]. The surgeon/proceduralist and patient have [...] Jennifer INFANTE MD May 27, 2021 12:53 [facility]03-01-2022 NoteHNO ID: [id number] Author: Scout Gayle OD Service: ? Author Type: JEWELLERY DESIGNER Type: Progress Notes Filed: 05/27/2021 1:02 PM [...] Scout Gayle OD May 27, 2021 12:15 [facility]11-10-2021 NotePROCEDURE: XR KNEE LT 3V HISTORY: [...] Electronically authenticated by: CIARRA [place] Date: 2021-02-05 16:48[facility] Diagnosis Combined forms of age-related cataract of both eyes Other and combined forms of senile cataract Combined forms of age-related cataract of both eyes Other and combined forms of senile cataract Combined forms of age-related cataract of both eyes Other and combined forms of senile cataract documented in this encounter [facility] note* Diagnosis Pre-op evaluation- Primary Preoperative examination, unspecified Cataract of both eyes, unspecified cataract type Other hyperlipidemia Complex regional pain syndrome type 1, affecting unspecified site Combined forms of age-related cataract of both eyes Other and combined forms of senile cataract Combined forms of age-related cataract of both eyes Other and combined forms of senile cataract documented in this encounter [facility] note* Diagnosis S/P cataract extraction and insertion of intraocular lens, left- Primary 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 Other and combined forms of senile cataract documented in this encounter [facility] note* Diagnosis S/P cataract extraction and insertion of intraocular lens, left- Primary 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 documented in this encounter [facility] noteNo InformationNort [employer] Other Evaluation noteNo assessment information available [facility] Work Phone: Evaluation note* Diagnosis Onset Date Resolution Status Acute kidney injury acuteAcute metabolic encephalopathyacuteChronic disease anemiaacuteMultifocal pneumoniaacuteSepsisacute [facility] Work Phone: Evaluation note* Diagnosis Onset Date Resolution Status Admit Date 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 acuteSeptember 2024 9:53am [facility] Work Phone: History general Narrative - Reported* Type Description Date Medical History hypertension Medical HistoryhypercholesterolemiaMedical HistoryneuropathyMedical History macular degenerationSurgical HistoryC [id number] Historybilateral [id number] [employer] Other History general Narrative - Reported* Type Description Date Medical History hypertension Medical HistoryhypercholesterolemiaMedical HistoryneuropathyMedical History macular degenerationSurgical HistoryC [id number] Historybilateral [id number] HistoryLTKA [employer] Other Hisjghq general Narrative - Reported* Type Description Date Medical History hypertension Medical HistoryhypercholesterolemiaMedical HistoryneuropathyMedical History macular degenerationSurgical HistoryC [id number] Historybilateral [id number] HistoryLTKAHospitalization Historysee surgical history [employer] Other Reason for referral (narrative)No reason for referral information availableC[facility] Work Phone: Advance Directives TypeDate RecordedPatient [...] the event of a Fluress shortage, administer Hubertus-Fluor 1 drop intoboth eyes as directed for [...] 262024 9:25am 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 [facility] 2024 9:46am Neuropathic pain, leg, [...] 262024 9:25am 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 [facility] 2024 9:46am Arthritis of carpometacarpal [...] Amb Documentation July 18, 2024 1:2 7pm [facility] ER f/u fall July 25, 2024 10: 55am Reason for Visit Admit Date 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 [facility]equiel [facility]amm 2024 9:25am Constipation April 26, 2024 9 :25am Encounter for palliative care April 262024 9:25am 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 [facility] 2024 9:46am Arthritis of carpometacarpal (CMC) [...] Admit Date 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 [facility] 2024 9:46am Arthritis of carpometacarpal (CMC) joint of left thumb June 27, 2024 1:57pm Arthritis of cdxnpbfl-ezmuupnid-jbnvoekd d joint of left hand June 27, [...] thumb June 27, 2024 1:57pm Arthritis of meosnbol-nyzfhatpm-bnakvtwj d joint of left hand June 27, [...] for Referral Reason *03/16 Dr Reed in [place] Diagnosis 1 Moderate COPD (chron ic obstructive pulmonary disease) (J44.9) Referral Organization [facility] Cardiology Referring Provider First Name Referring Provider Last Name Myra Referring Provider Specialty Cardiovascu lar Disease Referred Organization Unknown Facility Referred Provider Larry Reed Referred Provider Specialty Pulmonary Di seases Referral Priority Routine General Notes Macy Mccarthy 05:34:06 PM >received today, attachments made, referral faxed Reason *09/22 [place] office - word finding issues. MRI pending. 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) Referral Organization [facility] Geronimo Cunningham C heri Referring Provider First Name Oumar Referring Provider Last Name Lyric Referring Provider Specialty Family [facility] Referred Organization [facility] Referred Provider Curt Espinalle Ref[address] Address [address] [place], [place],[address] Referred Provider Specialty Neurology Referral Priority Routine [...] or prosecute any alcohol or drug abuse patient.[facility] HospitalIn the event this information is protected by the Federal Confidentiality of Alcohol and Drug Abuse Patient Records regulations: The Federal rules restrict any use of the information to criminally investigate or prosecute any alcohol or drug abuse patient.[facility] HospitalIn the event this information is protected by the Federal Confidentiality of Alcohol and Drug Abuse Patient Records regulations: The Federal rules restrict any use of the information to criminally investigate or prosecute any alcohol or drug abuse patient.[facility] HospitalIn the event this information is protected by the Federal Confidentiality of Alcohol and Drug Abuse Patient Records regulations: The Federal rules restrict any use of the information to criminally investigate or prosecute any alcohol or drug abuse patient.[facility] Reason for Visit (unrecogniz ed section and content) ReasonCommentsPre-Op ExamReasonCommentsAnesthesia ConsultReasonCommentsPost-op (Ophthalmology) Left EyeOne day s/p cataract surgery with IOLReasonCommentsPost- op (Ophthalmology) Left Eyes/p Phaco + PC IOL OS 6-01-51TeopacwdrVbtcpxruf / ProceduresReferred By ContactReferred To [facility] Diagnoses Combined forms of age-related cataract of both eyes Procedures XCAPSL CTRC RMVL INSJ IO LENS PROSTH W/O ECP OPH BMTRY PRTL COHER INTRFRMTRY IO LENS PWR LEO PHACOEMULSIFICATION CATARACT IMPLANT INTRAOCULAR LENS W/O ENDOSCOPIC CYCLOPHOTOCOAGULATION OPHTHALMIC BIOMETRY BY PARTIAL COHERENCE INTERFEROMETRY W/INTRAOCULAR LENS POWER CALCULATION [facility] [address] [place] [address] Referral IDStatusReasonStart DateExpiration DateVisits RequestedVisits [id number] Care Teams (unrecognized sec tion and content) [...] Provider Active Start: May 27, 2023 CARMEN CrenshawAAtminidoka memorial hospitalmikey ProviderActiveStart: May 27, 2023 Team Status: [...] DateEnd Date Oumar Gunter MD [address] [place] [address] PCP - GeneralFamily Practice12/25/10Team MemberRelationshipSpecialtyStart DateEnd Date Oumar Gunter MD [address] [place] [address] PCP - GeneralFamily Practice12/25/10Team MemberRelationshipSpecialtyStart DateEnd Date Oumar Gunter MD [address] [facility] [place] [address] PCP - GeneralFamily Practice12/25/10Team MemberRelationshipSpecialtyStart DateEnd Date Oumar Gunter MD [address] [place] [address] (work) PCP - [facility]12/25/10 Team Status: Inactive Member Role Status Dates Oumar Gunter MD Primary Care Provider Active Godfrey Guo ProviderActive Team Status: Inactive Member Role Status Nomi Gunter MD Primary Care Provider Active Godfrey Guo Provider, Referring ProviderActive Team Status: Active Member Role Status Dates Linda Renteria MD Typewriter Mechanic Active Trinh [facility]enthalB[facility] ProviderActive Team Status: Active Member Role [...] Member Role/Relationship Status Dates Linda Renteria MD Typewriter Mechanic Active FORREST [facility]enthalAt[facility] ProviderActive Team Status: Inactive Member Role/Relationship Status Dates Oumar Gunter MD Primary Care Provider Active Start: December 22, 2024 End: December 22, 2024Jose Francisco Rliey ProviderActiveStart: December 22, 2024 End: December 22, 2024 Team Status: Inactive Member Role/Relationship Status Dates Oumar Gunter MD Primary Care Provider Active Start: January 25, 2025 End: January 25, 2025Godfrey Rosenthal ProviderActiveStart: January 25, 2025 End: January 25, 2025 INFORMATION SOURCE (unrecogn ized section and content) DATE CREATED AUTHOR 08/21/2021 [facility] DATE CREATED AUTHOR AUTHOR'S ORGANIZ ATION 02/03/2022 [facility] DATE CREATED AUTHOR AUTHOR'S ORGANIZ ATION 06/28/2024 [facility] Goals (unrecognized section and content) [...] BE BASED ON THE PRIMARY CLINICAL RECORDS. [employer] [facility]. provides no warranty or guarantee of the accuracy or completeness of information in this document.
--- NOTE | 2025-03-08 11:00 | XR_ITS ---
The [address] [address] Patient Name: DARLENE TANG MRN: [id number] date: 1945 Sex: F Assigned Patient Location: [facility] Current Patient Location: [facility] Accession/Order Number: [id number] Exam Date: 03/08/2025 10:50 Report Date: 03/08/2025 11:41 At the request of: OUMAR GUNTER MD Procedure: XR chest 2V PA AND LATERAL CHEST: CLINICAL HISTORY: Follow up pleural effusion COMPARISON: CT and chest x-ray 02/15/2025 There is continued pleural-parenchymal opacity at the right lung base obscuring the hemidiaphragm. A volume of fluid at that site appears to be decreased from the comparison. There is no focal parenchymal consolidation or pleural effusion on the left. No pneumothorax is seen. The cardiac, hilar and mediastinal silhouettes are within normal limits. There is no vascular congestion. The visualized bony thorax is intact. Reverse S-shaped thoracolumbar scoliotic curvature and degenerative changes are seen at the spine. Patient has a dorsal stimulator. XR/XR chest 2V IMPRESSION: IMPROVING RIGHT BASILAR PLEURAL-PARENCHYMAL CHANGE Impression dictated by: Qi Espinoza M.D. 03/08/2025 11:41 AM Dictation Location: [place] [address] Electronically authenticated by: [id number] Y Date: 03/08/2025 11:41
== END 2025-03-08 10:32 | disposition home or self-care (01) ==
LOC: RAD 10:34
PROVIDERS: PCP Family Medicine; Visit Provider Family Medicine
DX: J90 Pleural effusion, not elsewhere classified (principal)
CPT/HCPCS: 71046